=== PATIENT | female | born 1975 | race Caucasian/White ===

== ENCOUNTER 2024-12-25 12:27 | Emergency (ER) | payer MEDICARE, MEDICAID, SELFPAY ==
[2024-12-25] VITALS (8 sets, daily range): BP systolic 101–127; BP diastolic 43–108; PULSE 88–101; RESP 14–18; TEMP 36.3–37; O2SAT 94–99; BMI 24.2
--- NOTE | 2024-12-25 13:13 | EKG12_ITS ---
Test Reason : Blood Pressure : */* mmHG Vent. Rate : 100 BPM Atrial Rate : 100 BPM P-R Int : 104 ms QRS Dur : 76 ms QT Int : 304 ms P-R-T Axes : 43 -2 45 degrees QTcB Int : 392 ms Sinus rhythm with short WA Otherwise normal ECG Baseline artifact Confirmed by Bartolo Lara ([id number]), make up editor ROSE PADRON ([id number]) on 12/27/2024 6:10:43 AM Referred By: Confirmed By: Bartolo Lara
--- NOTE | 2024-12-25 13:13 | CT_ITS ---
PROCEDURE: BRAIN/HEAD WITHOUT CONTRAST 12/25/2024 REASON FOR EXAM: ALTERED MENTAL STATUS TECHNIQUE: Head CT without intravenous contrast. Coronal and Sagittal reconstruction series were provided. One or more dose reduction techniques were used (e.g., Automated exposure control, adjustment of the mA and/or kV according to patient size, use of iterative reconstruction technique. RADIATION DOSE SUMMARY: CTDlvol: 44.99 mGy DLP: 846.73 mGycm COMPARISON: None FINDINGS: Brain: Old lacunar changes seen in the insular cortex of both temporal lobes. CSF Spaces: Mild generalized cerebral atrophy Sinuses/Mastoids: Clear at visualized levels Bones: Hyperostosis frontalis interna. CT/Brain/Head without Contrast IMPRESSION: Tiny old lacune seen in the insular cortex of both temporal lobes. Hyperostosis frontalis interna. Reading Location: [place] [address]
--- NOTE | 2024-12-25 13:13 | RAD_ITS ---
PROCEDURE: CHEST 1 VIEW (PORTABLE) 12/25/2024 REASON FOR EXAM: ALTERED MENTAL STATUS TECHNIQUE: Frontal view of the chest. COMPARISON: None FINDINGS: Hardware: EKG electrodes are seen. Heart: The heart is nonenlarged. Lungs: Lungs are clear. Bones: The bones are unremarkable. Other: RAD/Chest 1 View (Portable) IMPRESSION: No Acute Findings. Reading Location: [place] [address]
[2024-12-25 13:38] LABS: Absolute Lymphocyte Count 2.63 X10^3/uL (0.83-4.51); Absolute Neutrophil Count 3.3 X10^3/uL (2.0-7.7); Basophil# 0.04 X10^3/uL; Basophil% 0.6 % (0-1); Eosinophil# 0.12 X10^3/uL; Eosinophils% 1.7 % (0-5); Hematocrit 43.7 % (37-47); Hemoglobin 14.3 g/dL (12.0-15.0); Lymphocyte # 2.63 X10^3/ul (0.83-4.51); Lymphocyte % 36.3 % (19-41); Mean Corp Hgb Conc 32.7 g/dL (32-36); Mean Corpuscular Hgb 31.7 pg (27.0-32.0); Mean Corpuscular Volume 96.9 fL (81-99); Mean Platelet Vol. 9.8 fl (6.2-12.0); Monocyte# 1.18 X10^3/uL; Monocyte% 16.3 % (0-10); NRBC Flagged by Analyzer 0 % (0-5); Neutrophil # 3.26 X10^3/uL (2.7-7.7); Neutrophil % 44.8 % (47-70); Platelet Count 198 K/mm3 (150-450); RBC Distribution Width CV 13.1 % (11.6-14.6); RBC Distribution Width SD 46.7 fl (35.1-43.9); Red Blood Count 4.51 M/mm3 (4.2-5.4); White Blood Count 7.3 K/mm3 (4.4-11.0)
[2024-12-25 14:26] LABS: ALB/GLOB Ratio 1.2 RATIO (0.9-2.4); AST(SGOT) 46 U/L (<=31); Alanine Aminotransfer ALT/SGPT 17 U/L (<=34); Albumin, Serum 3.8 g/dL (3.5-5.0); Alkaline Phosphatase 60 U/L (35-104); Anion Gap 10 (5-15); BUN 16 mg/dL (4-19); BUN/Creat Ratio 22.9 RATIO (10-20); Calcium,Total 9.6 mg/dL (7.6-11.0); Carbon Dioxide 22.1 mmol/L (21.0-32.0); Chloride 109 mmol/L (98-108); Creatinine, Serum 0.68 mg/dL (0.70-1.20); EST Glomerular Filtration Rate 108 (>60); Estimated Creatinine Clearance 99.46 ml/min (50-250); Globulin 3.1 g/dL (2.2-4.2); Glucose 84 mg/dL (70-99); Potassium 4.9 mmol/L (3.3-5.1); Protein, Total 6.9 g/dL (5.9-8.4); Sodium Level 142 mmol/L (133-145)
[2024-12-25 15:10] LABS: Mucous, Urine 0 SEEN /hpf (<or=2+)
[2024-12-25 15:26] LABS: Color, Urine Yellow (Yellow); Glucose, Dipstick Normal (Normal); Ketone-Dipstick 5 mg/dl (Negative); Leukocyte Esterase-Dipstick 100 /ul (Negative); Nitrite-Dipstick Negative (Negative); Occult Blood-Urine 10 /ul (Negative); Protein-Dipstick 30 mg/dl (Negative); Specific Gravity, Urine 1.015 (1.002-1.030); Urine Bilirubin Dipstick Negative (Negative); Urine Clarity Cloudy (Clear); Urine Urobilinogen 8 mg/dl (Normal)
[2024-12-25 15:35] LABS: Amorphous Sediment 3+; Bacteria 2+ /hpf (None Seen); Red Blood Cells-Urine 0-5 SEEN /hpf (0-5); Squamous Epithelial Cells - UA 0-5 SEEN /hpf (5-10); Transitional Epithelial - Ur 0-5 SEEN /hpf (0-5); White Blood Cells 10-25 SEEN /hpf (0-5)
--- NOTE | 2024-12-25 15:46 | EDS_ITS ---
HPI <Dr. Quincy Clarke, DO - Last Filed: 12/25/24 22:10> History of Present Illness Chief Complaint: Mental Status Change Informant: parent Narrative Narrative: Patient sent by EMS from [facility] for increasing altered mental status. History of bipolar, autism, parents are present states function no was at a [place] [facility] Parent states on of last month went to urgent care for nausea was put on Zofran. The following day follow-up with PCP decompensation on that day was sent to the emergency department. Patient admitted at [facility] on the discharged 5 days ago little over 2 weeks today. Parents reports multiple workups and seen by neurology. They states CT scans EEG were all negative. Patient was ambulatory prior to hospitalization. Since then has been in bed and less conversational. They states undiagnosed findings. Reported MRI was ordered by neurology and due to patient inability to keep her head down, they did not perform this. She was discharged to [facility] facility 5 days ago. They report physical therapy was working with her she would take a couple steps if she is sitting in a chair at the facility. She seemed to start to improve prior to transfer to snf facility. Today reported at breakfast she may have choked on eggs. She had worsening mental status while there. She was sent in here by practitioner there for potential stroke. Parents reports she was not her normal baseline when she was discharged to snf facility. There has been no cough. Prior similar symptoms: Yes PFSH <Dr. Quincy Clarke, DO - Last Filed: 12/25/24 22:10> PFSH Home Medications ?Medication ?Instructions ?Recorded ?Last Taken ?Type acetaminophen 500 mg tablet 500 mg PO Q8H PRN fever or pain 12/25/24 Unknown History amantadine HCl 100 mg capsule 100 mg PO BID 12/25/24 U nknown History aspirin 81 mg chewable tablet 1 tab PO DAILY 12/25/24 Unknown History atropine 1 % eye drops 2 drp sublingual BID 5 Unknown History cephalexin 500 mg capsule 500 mg PO Q6 #12 CAPSULES Unknown Rx cholecalciferol (vitamin D3) 50 50 mcg PO DAILY Unknown History mcg (2,000 unit) capsule (Vitamin D3) divalproex 500 mg tablet,delayed 500 mg PO BID 5 Unknown History release docusate sodium 100 mg capsule 100 mg PO DAILY 5 Unknown History (Colace) fludrocortisone 0.1 mg tablet 0.2 mg PO BID 12/25/24 U nknown History fluoride (sodium) 1.1 % dental gel 1 applic dental QHS 12/25/24 Unknown History (DentaGel) loperamide 2 mg capsule 2 mg PO Q8H PRN loose stool 12/25/24 Unknown History (Anti-Diarrheal (loperamide)) melatonin 5 mg chewable tablet 5 mg PO QHS 12/25/24 Un known History midodrine 5 mg tablet 10 mg PO BID 12/25/24 Unknow n History montelukast 10 mg tablet 10 mg PO DAILY 12/25/24 Unkn own History pantoprazole 40 mg tablet,delayed 40 mg PO DAILY 12/25 Unknown History release polyethylene glycol 3350 17 17 g PO DAILY PRN constipa tion 12/25/24 Unknown History gram/dose oral powder (ClearLax) risperidone 1 mg tablet 1 mg PO Q12H PRN anxiety 05/11 Unknown History trazodone 50 mg tablet 50 mg PO QHS 12/25/24 Unknow n History Allergy/AdvReac Type Severity Reaction Status Date / Time No Known Allergies Allergy Verified 12/25/24 12:37 Social History Smoking Status: Never smoker ROS <Dr. Quincy Clarke DO - Last Filed: 12/25/24 22:10> ROS ED Review of Systems ROS Unobtainable: due to mental condition EXAM <Dr. Quincy Clarke DO - Last Filed: 12/25/24 22:10> Physical Exam Const Vital Signs: 12/25/24 12:29 12/25/24 13:27 12/25/24 14:00 Temperature 97.4 F L Temperature Source Oral Pulse Rate 100 99 99 Respiratory Rate 15 18 18 Blood Pressure 121/66 H 120/108 H 118/90 H Blood Pressure Mean 84 112 99 Pulse Ox 98 99 99 Oxygen Delivery Method Room Air Room Air Room Air 12/25/24 15:29 12/25/24 16:11 12/25/24 19:00 Temperature 98.6 F Temperature Source Oral Pulse Rate 91 101 H 88 Respiratory Rate 18 18 14 Blood Pressure 108/70 127/67 H 101/43 L Blood Pressure Mean 82 87 62 Pulse Ox 97 99 98 Oxygen Delivery Method Room Air Room Air 12/25/24 19:46 12/25/24 20:00 Temperature 98.6 F Temperature Source Pulse Rate 88 88 Respiratory Rate 14 Blood Pressure 101/43 L 119/64 Blood Pressure Mean 62 82 Pulse Ox 98 94 Oxygen Delivery Method Constitutional Narrative: Lying in bed nontoxic, patient unable to follow commands. Slight Contractures of the upper extremity and lower extremities. HEENT normocephalic and atraumatic Eyes General Eye ED: Yes normal appearance of both eyes Resp normal respiratory effort and normal air movement Cardio regular rate and regular rhythm GI soft to palpation Extremity Extremity Narrative: Soft compartments pulses intact distally. Neuro Neuro Narrative: Noncommunicable at this time. Skin no rashes or lesions noted and no wounds <Dr. Axel Sanders, DO - Last Filed: 12/25/24 19:43> Physical Exam Const Vital Signs: 12/25/24 12:29 12/25/24 13:27 12/25/24 14:00 Temperature 97.4 F L Temperature Source Oral Pulse Rate 100 99 99 Respiratory Rate 15 18 18 Blood Pressure 121/66 H 120/108 H 118/90 H Blood Pressure Mean 84 112 99 Pulse Ox 98 99 99 Oxygen Delivery Method Room Air Room Air Room Air 12/25/24 15:29 12/25/24 16:11 12/25/24 19:00 Temperature 98.6 F Temperature Source Oral Pulse Rate 91 101 H 88 Respiratory Rate 18 18 14 Blood Pressure 108/70 127/67 H 101/43 L Blood Pressure Mean 82 87 62 Pulse Ox 97 99 98 Oxygen Delivery Method Room Air Room Air 12/25/24 19:46 12/25/24 20:00 Temperature 98.6 F Temperature Source Pulse Rate 88 88 Respiratory Rate 14 Blood Pressure 101/43 L 119/64 Blood Pressure Mean 62 82 Pulse Ox 98 94 Oxygen Delivery Method MDM <Dr. Quincy Clarke, DO - Last Filed: 12/25/24 22:10> MDM MDM Narrative Medical decision making narrative: Interventions / MDM: Differential diagnosis: UTI, encephalopathy, CVA Diagnosis considered but do not suspect: Intracranial hemorrhage however CT negative My EKG interpretation: Sinus rhythm 100, no ST or T wave changes artifacts at baseline. 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 Recent workup for neurologic issue of unknown etiology. Vitals are stable afebrile. CT brain ordered chest x-ray labs and urine will be obtained through catheterization. CT brain noting bilateral temporal lobe and old lacunar infarcts in the insular cortex. Parents was not aware of any of these findings over at [facility]. Chest x- ray negative. Labs stable cath urine had 100 leukocytes 20-25 WBCs with 2+ bacteria. Urine culture sent. IV Rocephin given. 1600: Clinically seems to be the improving and more alert. Swallow study with no difficulties. Patient with recent neurological workup unclear etiology now with old infarct now seen on CT with potentially stroke issues leading to her hospitalization. She potentially could have had another event today. I discussed with hospitalist Dr. Preston, with her prolonged stay and neurological workup at [facility]. Recommend transferring her back to facility as they also has neurology in house for evaluation. Discussed this with parents who understands and agrees with plan at this time. Will work on transfer. 1700: I discussed with [facility] transfer line with hospitalist Dr. Modi, I discussed patient's history and findings with patient as recent hospitalization there. He evaluated records. He states he will call his neurologist and discussed the area of findings today and it was of concern. He will call back. 1755: In the interim I received a call from the transfer facility stating he has neurologist Dr. Bergman, requesting MRI to be done to differentiate prior to accepting the patient. I rediscussed with the hospitalist Dr. Modi, discussed patient was unable to cooperate at his facility therefore will likely need to be medicated before this study can be completed therefore delayed results and for this to be obtained. He states if positive results can call back and transfer him even from inpatient to inpatient. I will speak with hospitalist regarding this discussion. 181: I spoke with Dr. Preston who will evaluate the patient in the ED for disposition plans. Re-evaluation: stable Disposition discussed with patient/family/significant other: Parents Case discussed with consulting clinician: Jammie hospitalist, [facility] hospitalist Dr. Modi This note was generated with [employer] software. It may contain incorrect words, spelling, and punctuation that were not noted in checking the note before signing. Lab Data Attestation: I reviewed the patient's lab results. Labs: Laboratory Results - last 24 hr 12/25/24 12/25/24 13:29 14:45 WBC 7.3 RBC 4.51 Hgb 14.3 Hct 43.7 MCV 96.9 MCH 31.7 MCHC 32.7 RDW Std Deviation 46.7 H RDW Coeff of Russell 13.1 Plt Count 198 MPV 9.8 Immature Gran % (Auto) 0.300 Neut % (Auto) 44.8 L Lymph % (Auto) 36.3 Simpson % (Auto) 16.3 H Eos % (Auto) 1.7 Baso % (Auto) 0.6 Absolute Neuts (auto) 3.3 Absolute Lymphs (auto) 2.63 Nucleated RBC % 0 Sodium 142 Potassium 4.9 Chloride 109 H Carbon Dioxide 22.1 Anion Gap 10 BUN 16 Creatinine 0.68 L Estim Creat Clear Calc 99.46 Est GFR (MDRD) Non-Af 108 BUN/Creatinine Ratio 22.9 H Glucose 84 Calcium 9.6 Total Bilirubin 0.40 AST 46 H ALT 17 Alkaline Phosphatase 60 Total Protein 6.9 Albumin 3.8 Globulin 3.1 Albumin/Globulin Ratio 1.2 Urine Color Yellow Urine Clarity Cloudy Urine pH 7.0 Ur Specific [place] 1.015 Urine Protein 30 H Urine Glucose (UA) Normal Urine Ketones 5 H Urine Occult Blood 10 H Urine Nitrite Negative Urine Bilirubin Negative Urine Urobilinogen 8 H Ur Leukocyte Esterase 100 H Urine RBC 0-5 SEEN Urine WBC 10-25 SEEN Ur Squamous Epith Cells 0-5 SEEN Ur Transition Epith Cell 0-5 SEEN Amorphous Sediment 3+ Urine Bacteria 2+ Urine Mucus 0 SEEN Radiography Diagnostic Testing: Clinical Impression(s) from Imaging Studies Brain CT 12/25/24 13:13 IMPRESSION: Tiny old lacune seen in the insular cortex of both temporal lobes. Hyperostosis frontalis interna. Reading Location: [facility]1 Chest X-Ray 12/25/24 13:13 IMPRESSION: No Acute Findings. Reading Location: [facility]1 <Dr. Axel Sanders, DO - Last Filed: 12/25/24 19:43> [facility] Lab Data Labs: Laboratory Results - last 24 hr 12/25/24 12/25/24 13:29 14:45 WBC 7.3 RBC 4.51 Hgb 14.3 Hct 43.7 MCV 96.9 MCH 31.7 MCHC 32.7 RDW Std Deviation 46.7 H RDW Coeff of Russell 13.1 Plt Count 198 MPV 9.8 Immature Gran % (Auto) 0.300 Neut % (Auto) 44.8 L Lymph % (Auto) 36.3 Simpson % (Auto) 16.3 H Eos % (Auto) 1.7 Baso % (Auto) 0.6 Absolute Neuts (auto) 3.3 Absolute Lymphs (auto) 2.63 Nucleated RBC % 0 Sodium 142 Potassium 4.9 Chloride 109 H Carbon Dioxide 22.1 Anion Gap 10 BUN 16 Creatinine 0.68 L Estim Creat Clear Calc 99.46 Est GFR (MDRD) Non-Af 108 BUN/Creatinine Ratio 22.9 H Glucose 84 Calcium 9.6 Total Bilirubin 0.40 AST 46 H ALT 17 Alkaline Phosphatase 60 Total Protein 6.9 Albumin 3.8 Globulin 3.1 Albumin/Globulin Ratio 1.2 Urine Color Yellow Urine Clarity Cloudy Urine pH 7.0 Ur Specific [place] 1.015 Urine Protein 30 H Urine Glucose (UA) Normal Urine Ketones 5 H Urine Occult Blood 10 H Urine Nitrite Negative Urine Bilirubin Negative Urine Urobilinogen 8 H Ur Leukocyte Esterase 100 H Urine RBC 0-5 SEEN Urine WBC 10-25 SEEN Ur Squamous Epith Cells 0-5 SEEN Ur Transition Epith Cell 0-5 SEEN Amorphous Sediment 3+ Urine Bacteria 2+ Urine Mucus 0 SEEN Radiography Diagnostic Testing: Clinical Impression(s) from Imaging Studies Brain CT 12/25/24 13:13 IMPRESSION: Tiny old lacune seen in the insular cortex of both temporal lobes. Hyperostosis frontalis interna. Reading Location: [facility] Chest X-Ray 12/25/24 13:13 IMPRESSION: No Acute Findings. Reading Location: [facility]- Treatment and Re-Evaluation :: Care of the patient was turned over to me pending admission. Dr. Preston was in to evaluate the patient. He discussed options with the family. They are agreeable to being discharged back to the extended care facility. Patient was given a prescription for Keflex. Family will contact patient's psychiatrist for possible medication adjustments. Patient and family were instructed to return if worse in any way. Family understood and was agreeable with the plan. All questions were answered. Discharge Plan Triage Chief Complaint: Mental Status Change ED Provider: Quincy Clarke Dx/Rx/DC Orders Clinical Impression: UTI (urinary tract infection), Encephalopathy, Cerebral infarct Instructions: ED ALOC, ED Cystitis Female Adult Prescriptions: New cephalexin 500 mg capsule 500 mg PO Q6 Qty: 12 0RF No Action trazodone 50 mg tablet 50 mg PO QHS midodrine 5 mg tablet 10 mg PO BID divalproex 500 mg tablet,delayed release (DR/EC) 500 mg PO BID amantadine HCl 100 mg capsule 100 mg PO BID acetaminophen 500 mg tablet 500 mg PO Q8H PRN (Reason: fever or pain) pantoprazole 40 mg tablet,delayed release (DR/EC) 40 mg PO DAILY aspirin 81 mg tablet,chewable 1 tab PO DAILY montelukast 10 mg tablet 10 mg PO DAILY atropine 1 % drops 2 drp sublingual BID fludrocortisone 0.1 mg tablet 0.2 mg PO BID risperidone 1 mg tablet 1 mg PO Q12H PRN (Reason: anxiety) melatonin 5 mg tablet,chewable 5 mg PO QHS docusate sodium [Colace] 100 mg capsule 100 mg PO DAILY loperamide [Anti-Diarrheal (loperamide)] 2 mg capsule 2 mg PO Q8H PRN (Reason: loose stool) polyethylene glycol 3350 [ClearLax] 17 gram/dose powder 17 g PO DAILY PRN (Reason: constipation) fluoride (sodium) [DentaGel] 1.1 % gel 1 applic dental QHS cholecalciferol (vitamin D3) [Vitamin D3] 50 mcg (2,000 unit) capsule 50 mcg PO DAILY Primary Care Provider: Joaquín Rosario Referrals: Joaquín Rosario MD [Primary Care Provider] - 3-5 Days Print Language: Russian Disposition Disposition: Jail Facility Discharge Location: [facility] Discharge Date/Time: 12/25/24:42
[2024-12-25] MEDS: Ceftriaxone 1 GM/50 ML BAG IV (16:08)
== END 2024-12-25 21:42 | disposition skilled nursing facility (03) ==
PROVIDERS: Emergency Provider Emergency Medicine; PCP Family Medicine; Visit Provider Emergency Medicine
DX: N39.0 Urinary tract infection, site not specified (principal); G93.40 Encephalopathy, unspecified; F84.0 Autistic disorder; Z79.82 Long term (current) use of aspirin; Z79.899 Other long term (current) drug therapy; Z86.73 Personal history of transient ischemic attack (TIA), and cerebral infarction without residual deficits
CPT/HCPCS: 70450; 71045; 80053; 81001; 85025; 87086; 87088; 93005; 96365; 99285; P9612; A4216

== ENCOUNTER 2025-04-05 18:26 | Inpatient (IN) | payer MEDICARE, MEDICAID, SELFPAY ==
[2025-04-05 18:49] VITALS: BP 95/67; PULSE 101; RESP 18; TEMP 35.8; O2SAT 92; BMI 20.7
--- NOTE | 2025-04-05 19:15 | EKG12_ITS ---
Test Reason : Blood Pressure : */* mmHG Vent. Rate : 88 BPM Atrial Rate : 88 BPM P-R Int : 118 ms QRS Dur : 76 ms QT Int : 378 ms P-R-T Axes : 73 26 62 degrees QTcB Int : 457 ms Normal sinus rhythm Low voltage QRS Borderline ECG Confirmed by ROSENDO CONNOR MD ([id number]), associate entertainment editor BRIANA LARSON ([id number]) on 04/08/2025 8:11:21 AM Referred By: CLIF Confirmed By: ROSENDO CONNOR MD
[2025-04-05] MEDS: Ziprasidone IM 20 MG/ML VIAL IM (19:34)
--- NOTE | 2025-04-05 19:34 | ED.RN ---
pt rolling in bed, yelling. refusing care. for the safety of pt and staff shantal alvarez- see MAR.
--- OUTSIDE RECORDS SUMMARY | 2025-04-05 19:38 | XMS RPT_ITS | CCD ---
Author Organization [facility] Care Team Providers Care Pecan Picker Name Role Phone Zaid Marie III Primary Care Provider EUSEBIA WILLIAM, DESIRAE Primary Care Physician DESIRAE ROSARIO MD Primary Care Physician [phone] Zaid Marie III Primary Care Provider PRAVEEN HDEZ Attending Unavailable Desirae Rosario MD Unavailable ZAID MARIE III Primary Care Unavail able Shayna Rosario DO Primary Care Provider Zaid Marie III Primary Care Provider DESIRAE ROSARIO MD Primary Care Unavailable RENETTA MI, DR MICHELE Pradhan Attending UnavailDESIRAE Nolasco MD Primary Care Unavailable ISABEL MIN Attending UnavailDesirae Nelson MD Primary Care Provider Desirae Rosario Primary Care Provider DESIRAE ROSARIO Primary Care Unavailable LEIGHA SIEGEL Referring Unavailable DESIRAE ROSARIO Primary Care Unavailable JOHNATHON RIVAS Referring Unavailable SHAYNA ROSARIO Primary Care Unavailable DESIRAE ROSARIO Primary Care Unavailable LUCI SHAH Attending Unavailable JOHNATHON RIVAS Attending Unavailable SHAYNA ROSARIO Primary Care Unavailable SHAYNA ROSARIO Primary Care Unavailable DESIRAE ROSARIO MD Primary Care Unavailable REFERRING, LEAH PINTO Attending Unavailable KIM ANGULO PA-C Attending Unavailable EUSEBIA WILLIAM, DESIRAE Primary Care Unavailable EUSEBIA WILLIAM, DESIRAE Primary Care Unavailable PHYSICIAN, NONE Attending Unavailable GUSTAVO MOREAU MD Attending Unavailable EUSEBIA, DESIRAE Primary Care Unavailable EUSEBIA, DESIRAE Primary Care Unavailable NOHEMI TALAVERA MD Attending Unavailable MURRAY ASSET COORDINATOR-CASE MANAGEMENT ASSISTANT, [place] Attending Arnoldo ROSARIO, DESIRAE Primary Care Unavailable EUSEBIA, DESIRAE Primary Care Unavailable MIGUEL ANGEL PARKER MD Attending Unavailable EUSEBIA, DESIRAE Primary Care Unavailable NOHEMI TALAVERA MD Attending Unavailable EUSEBIA, DESIRAE Primary Care Unavailable CAROLINE JAVIER DO Attending Unavailable Dr. Quincy Clarke DO Emergency Provider Dr. Desirae Rosario MD Primary Care Provider JEFF AMBRIZ Attending Unavailable FRANK III, [facility] Primary Care Unavail able FRANK III, ZAID NATURITA Primary Care Unavail able RADHA GLASS Attending Unavailable KYMBERLY SETHI Admitting Unavailable KYMBERLY SETHI Attending Unavailable DESIRAE ROSARIO Primary Care Unavailable SELF Referring Unavailable EUSEBIA, DESIRAE Castillo Primary Care Unavailable ARLINE GUILLERMO Attending Unavailable EUSEBIADESIRAE ÁLVAREZ Primary Care Unavailable BOB CALDWELL Attending Unavailable DESIRAE ROSARIO Primary Care Unavailable MAIK WIGGINS Admitting Unavailable JARAD CHEN Attending Unavailable TYLER WEBB Consulting Unavailable EUSEBIADESIRAE HASSAN Primary Care Unavailable LUCI WOOD Admitting Unavailable JAY ABDI Attending Unavailab LALIT Rendon Consulting Unavailable Dr. Quincy Clarke DO Attending Provider Dr. Desirae Rosario MD Referring Provider Naye Sol Attending Provider Dr. Wojciech Gonzalez MD Attending Provider [phone] Naye Valero Attending Unavailable Desirae Rosario Referring Unavailable Desirae Rosario Primary Care Unavailable Eusebia, Desirae Primary Care Unavailable Wojciech Gonzalez Attending Unavailable Quincy Clarke Attending Unavailable Eusebia, Desirae Primary Care Unavailable Medications Current Medications Medication Drug Class(es) Dates Sig (Normalized) Sig (Original) acetaminophen 325 mg oral tablet (20 sources) Start: 03-05-2025 take 2 tablets by mouth every four hours as needed Acetaminophen 325 mg tablet Active 650 mg PO Q4H as needed March 05, 2025 12:00am Start: 12-25-2024 End: 03-05-2025 take 1 tablet by mouth every eight hours as needed for pain Acetaminophen 500 mg tablet Discontinued 500 mg PO Q8H as needed for fever or pain December 25, 2024 12:00am March 05, 2025 10:39am Start: 01-24-2024 End: 01-24-2024 take 1 tablet by mouth every eight hours as needed acetaminophen (TYLENOL EXTRA STRENGTH) 500 mg tablet Take 1 tablet by mouth every 8 hours as needed for pain. 24 tablet 01/24/2024 Active Start: 01-20-2024 take 2 tablets by mo uth every eight hours as needed acetaminophen (TYLENOL) 500 mg tablet Take 2 tablets by mouth every 8 hours as needed for pain for up to 15 doses. 30 tablet 01/20/2024 Active Start: 08-11-2023 End: 08-11-2023 acetaminophen (Tylenol) tabl et 650 mg acetaminophen (T ylenol) 325 MG tablet Take 325 mg by mouth. Active amantadine hydrochloride 100 mg oral capsule (20 sources) Influenza A M2 Protein Inhibitor Start: 12-25-2024 take 1 capsule by mouth twice daily Amantadine Hcl 100 mg capsule Active 100 mg PO TWICE A DAY December 25, 2024 12:00am Start: 07-26-2024 take 1 dose by mouth twice daily amantadine Dose : 100 mg =, Oral, BID, 0 Refill(s) Start Date: 07/26/24 Status: Ordered Repeat number: 1 Start: 12-29-2023 amantadine 100 mg oral capsule Dose : 100 mg = 1 cap(s), Oral, BID, 0 Refill(s) Start Date: 12/29/23 Status: Ordered Repeat number: 1 Start: 12-24-2015 End: 11-24-2023 amantadine HCl (SYMMETREL) 1 00 mg capsule 100 mg twice daily. 0 12/24/2015 11/24/2023 Discontinued (Course of therapy completed) Comment on above: 100 mg twice daily. amoxicillin 875 mg oral tablet (9 sources) Penicillin-class Antibacterial Start: 4 End: take 1 tablet by mouth every twelve hours amoxicillin (AMOXIL) 875 mg tablet Indications: Left otitis media, unspecified otitis media type Take 1 tablet by mouth every 12 hours for 10 days. 20 tablet 03/16/2024 03/26/2024 Active Start: 01-24-2024 End: 01-29-2024 take 1 capsule by mouth three times daily amoxicillin (AMOXIL) 500 mg capsule Take 1 capsule by mouth three times a day for 5 days. 15 capsule 0 01/24/2024 01/29/2024 Active Start: 11-24-2023 End: 12-04-2023 take 1 tablet by mouth every twelve hours amoxicillin (AMOXIL) 875 mg tablet Indications: Ear pain, bilateral Take 1 tablet by mouth every 12 hours for 10 days. 20 tablet 0 11/24/2023 12/04/2023 Active amoxicillin 875 mg / clavulanate 125 mg oral tablet (11 sources) Penicillin-class Antibacterial Start: 03-24-2024 End: 04-03-2024 take 1 tablet by mouth every twelve hours amoxicillin-clavulanate (Augmentin) 875-125 MG tablet Take 1 tablet by mouth in the morning and 1 tablet in the evening. Do all this for 10 days. 20 tablet 03/24/2024 04/03/2024 Active Start: 01-20-2024 End: 01-27-2024 take 11 mL by mouth twice daily amoxicillin-clavulanic acid (AUGMENTIN) 400-57 mg/5 mL suspension Take 11 mL by mouth two times a day for 7 days. 154 mL 0 01/20/2024 01/27/2024 Active aspirin 81 mg chewable tablet (6 sources) Platelet Aggregation Inhibitor, Nonsteroidal Anti-inflammatory Drug Start: 12-25-2024 Aspirin 81 mg tablet,chewable Active 1 {tbl} PO DAILY December 25, 2024 12:00am Start: 08-10-2024 aspirin 81 mg oral tablet, chewable Dose : 81 mg = 1 tab(s), Oral, Daily, # 90 tab(s), 3 Refill(s), Pharmacy: [facility], 165.1, cm, 08/10/24 9:30:00 EST, Height, kg, 08/10/24 9:30:00 EST, Dosing Weight Start Date: 08/10/24 Status: Ordered Quantity: 90.0 Unit: tab(s) Repeat number: 4 Start: 07-26-2024 aspirin 325 mg oral tablet Dose : 325 mg = 1 tab(s), Oral, qDay, # 90 tab(s), 0 Refill(s), Pharmacy: [facility], 170.2, cm, 12/29/23 15:59:00 EDT, Height, kg, 07/26/24 12:09:00 EST, Dosing Weight Start Date: 07/26/24 Status: Ordered Quantity: 90.0 Unit: tab(s) Repeat number: 1 Atropine 1 % drops (3 sources) Start: 12-25-2024 Atropine 1 % d rops Active 2 NMA SL TWICE A DAY December 25, 2024 12:00am benztropine mesylate 1 mg oral tablet (13 sources) Anticholinergic, Antihistamine Start: 12-19-2015 Cogentin 1 mg oral tablet Dose : 1.5 mg = 1.5 tab(s), Oral, BID Start Date: 12/19/15 Status: Ordered End: 11-24-2023 take 1.5 mg by mouth twice daily benztropine (COGENTIN) 1 mg tablet Take 1.5 mg by mouth twice daily. 0 11/24/2023 Discontinued (Course of therapy completed) Comment on above: Take 1.5 mg by mouth twice daily. carbamide peroxide 65 mg/ml otic solution (4 sources) Start: 12-23-2023 End: 12-28-2023 carbamide peroxide (Debrox) 6.5 % otic solution Administer 5 drops into each ear 2 times daily for 5 days. 10 mL 1 12/23/2023 12/28/2023 Active Start: 11-24-2023 End: 11-28-2023 carbamide peroxide (DEBROX) 6.5 % otic solution Indications: Impacted cerumen of right ear Use 4-5 Drops in both ears as needed for up to 4 days. 15 mL 0 11/24/2023 11/28/2023 Active carbidopa 25 mg / levodopa 100 mg oral tablet (12 sources) Aromatic Amino Acid Decarboxylation Inhibitor, Aromatic Amino Acid Start: 08-23-2022 take 1 tablet by mouth three times daily carbidopa-levodopa 25 mg-100 mg oral tablet Dose = 1 tab(s), Oral, TID Start Date: 08/23/22 Status: Ordered Start: 08-23-2022 carbidopa-levo dopa (Sinemet) 25-100 MG tablet Take by mouth. 08/23/2022 Active chlorhexidine gluconate 1.2 mg/ml mouthwash (4 sources) Start: 01-24-2024 Chlorhexidine Gluconate (PERIDEX) 0.12 % solution Use 15 mL as instructed two times a day. Rinse around mouth for 30 seconds then expectorate 473 mL 01/24/2024 Active cholecalciferol 0.05 mg oral capsule (20 sources) Vitamin D Start: 12-25-2024 Cholecalcifero l (Vitamin D3) [Cholecalciferol (Vitamin D3) 50 Mcg (2,000 Unit) Capsule] (Cholecalciferol (Vitamin D3) 50 Mcg (2,000 Unit) ) 50 mcg (2,000 unit) capsule Active 50 ug PO DAILY December 25, 2024 12:00am Start: 04-29-2023 take 1 capsule by mo ut once daily cholecalciferol (Vitamin D-3) 50 MCG (1999 UT) capsule Take 2,000 Units by mouth daily. 11/26/2023 Active cholecalciferol (Vitamin D-3) 50 MCG (1999 UT) capsule 2,000 Units. Active docusate sodium 100 mg oral capsule (20 sources) Start: 12-25-2024 End: 03-05-2025 take 1 capsule by mouth once daily as needed Docusate Sodium (Colace) 100 mg capsule Active 100 mg PO DAILY as needed March 05, 2025 10:41am Start: 07-26-2024 take 1 dose by mouth once daily as needed for constipation docusate Dose : 100 mg =, Oral, qDay, PRN as needed for constipation, 0 Refill(s) Start Date: 07/26/24 Status: Ordered Repeat number: 1 Start: 05-20-2023 End: 11-24-2023 docusate sodium (COLACE) 100 mg capsule fludrocortisone acetate 0.1 mg oral tablet (20 sources) Start: 12-25-2024 take 1 tablet by mouth twice daily Fludrocortisone 0.1 mg tablet Active 0.2 mg PO TWICE A DAY December 25, 2024 12:00am Start: 01-15-2023 take 2 tablets by mo uth in the morning, then take 8 tablets by mouth in the evening fludrocortisone (Florinef) 0.1 MG tablet TAKE 2 TABLETS BY MOUTH AT 8 AM AND 8 PM 01/15/2023 Active Start: 01-15-2023 End: 11-24-2023 fludrocortisone 0.1 mg oral tablet Dose : 0.2 mg = 2 tab(s), Oral, qDay, 0 Refill(s) Start Date: 01/15/23 Status: Ordered Repeat number: 1 gabapentin (13 sources) Anti-epileptic Agent Start: 09-15-2017 gabapenti n 0 Refill(s) Start Date: 09/15/17 Status: Ordered End: 11-24-2023 take 1 tablet by mouth three times daily gabapentin (NEURONTIN) 600 mg tablet Take 600 mg by mouth three times daily. 0 11/24/2023 Discontinued (Course of therapy completed) Comment on above: Take 600 mg by mouth three times daily. ibuprofen 600 mg oral tablet (9 sources) Nonsteroidal Anti-inflammatory Drug Start: 4 End: 4 take 1 tablet by mouth every six hours as needed ibuprofen (MOTRIN) 600 mg tablet Take 1 tablet by mouth every 6 hours as needed for pain. 20 tablet 01/24/2024 Active loperamide hydrochloride 2 mg oral capsule (15 sources) Opioid Agonist Start: 5 take 1 capsule by mouth every eight hours as needed Loperamide (Anti-Diarrheal (Loperamide)) 2 mg capsule Active 2 mg PO Q8H as needed for loose stool December 25, 2024 12:00am take 1 capsule by mo uth three times daily as needed loperamide (Imodium) 2 MG capsule Take 2 mg by mouth 3 times daily as needed. Active LORazepam 0.5 mg oral tablet (20 sources) Benzodiazepine Start: 03-05-2025 take 1 tablet by mouth twice daily Lorazepam 0.5 mg tablet Active 0.5 mg PO TWICE A DAY March 05, 2025 12:00am Start: 07-26-2024 LORazepam Dose : 1 mg =, Oral, BID, 1 afternoon, 1 at bedtime, 0 Refill(s), 66.8 Start Date: 07/26/24 Status: Ordered Repeat number: 1 Start: 03-24-2024 2 mg, IntraMUS Cular, Once, On 03/24/24 at 2135, For 1 dose, For IV doses dilute dose with 1ml NS. Start: 12-29-2023 LORazepam 1 mg oral tablet Dose : 1 mg = 1 tab(s), Oral, TID, 0 Refill(s), 57.1 Start Date: 12/29/23 Status: Ordered Repeat number: 1 Start: 04-30-2023 LORazepam (Ati van) 1 MG tablet Start: 04-07-2016 LORazepam 0 Re fill(s) Start Date: 04/07/16 Status: Ordered Start: 01-10-2016 take 2 tablets by mo uth once daily in the morning LORazepam (ATIVAN) 1 mg tablet Take 2 mg by mouth every morning. 01/10/2016 Active Start: 01-10-2016 LORazepam (ATI VAN) 1 mg tablet 2 mg three times a day. 0 01/10/2016 Active Start: 01-10-2016 End: 01-22-2023 LORazepam 1 mg oral tablet D ose : 2 mg = 2 tab(s), Oral, TID, X 7 day(s), # 42 tab(s), 0 Refill(s), 01/22/23 12:55:00 EDT, Bipolar disorder Autism, 57.1 Start Date: 01/15/23 Stop Date: 01/22/23 Status: Ordered take 1 tablet by yudi th once daily in the morning LORazepam (Ativan) 2 MG tablet Take 1 tablet by mouth every morning. Active take 1 tablet by yudi th twice daily, then take 8 tablets by mouth in the evening LORazepam (ATIVAN) 1 mg tablet Take 1 mg by mouth two times a day. @ 3pm and 8 pm Active Comment on above: 1 mg three times gill ly. 2 mg three times a d ay. medroxyPROGESTERone (13 sources) Progestin Start: 04-07-2016 Depo-Provera 0 Refill(s) Start Date: 04/07/16 Status: Ordered End: 11-24-2023 medroxyPROGESTERone (DEPO-GA OVERA) 150 mg/mL injection Inject 150 mg intramuscularly every 12 weeks. 0 11/24/2023 Discontinued (Course of therapy completed) Comment on above: Inject 150 mg intram uscularly every 12 weeks. melatonin 5 mg oral tablet (20 sources) Start: End: take 1 tablet by mouth at bedtime as needed Melatonin 5 mg tablet,chewable Active 5 mg PO AT BEDTIME as needed March 05, 2025 10:41am Start: 07-26-2024 melatonin Dose : 5 mg =, Oral, qHS, PRN as needed for insomnia, 2 tablets, 0 Refill(s) Start Date: 07/26/24 Status: Ordered Repeat number: 1 Start: 04-29-2023 melatonin 5 MG tablet 5 mg. 04/29/2023 Active midodrine hydrochloride 5 mg oral tablet (20 sources) alpha-Adrenergic Agonist Start: 12-25-2024 take 2 tablets by mouth twice daily Midodrine 5 mg tablet Active 10 mg PO TWICE A DAY December 25, 2024 12:00am Start: 01-15-2023 midodrine (Pro amatine) 5 MG tablet Take 10 mg by mouth. 01/15/2023 Active Start: 01-15-2023 midodrine 5 mg oral tablet Dose : 10 mg = 2 tab(s), Oral, BID, 0 Refill(s) Start Date: 01/15/23 Status: Ordered Repeat number: 1 montelukast 10 mg oral tablet (20 sources) Leukotriene Receptor Antagonist Start: 12-25-2024 take 1 tablet by mouth once daily Montelukast 10 mg tablet Active 10 mg PO DAILY December 25, 2024 12:00am Start: 08-23-2022 montelukast 10 mg oral tablet Dose : 10 mg = 1 tab(s), Oral, qDay, 0 Refill(s) Start Date: 08/23/22 Status: Ordered Repeat number: 1 Multiple Vitamin (Tab-A-Kenneth/Beta Carotene) tablet (11 sources) Start: 11-18-2023 Multiple Vitam in (Tab-A-Kenneth/Beta Carotene) tablet 11/18/2023 Active Start: 11-18-2023 Multiple Vitam in (Tab-A-Kenneth/Beta Carotene) tablet Skcwayublnoca-Dfcfgtlr-Doiwf n (MULTIVITAMIN 50 PLUS) tab (6 sources) Multivitamins-Mi nerals-Lutein (MULTIVITAMIN 50 PLUS) tab Take 1 tablet by mouth once daily. Ld 01/22 Active Multivitamins-Mi nerals-Lutein (MULTIVITAMIN 50 PLUS) tab Take 1 tablet by mouth once daily. Ld 01/22 0 Active Multivitamins-Mi nerals-Lutein (MULTIVITAMIN 50 PLUS) tab Take 1 tablet by mouth once daily. Ld 01/22 0 Suspended nitrofurantoin, macrocrystals 25 mg / nitrofurantoin, monohydrate 75 mg oral capsule (2 sources) Nitrofuran Antibacterial Start: 04-09-2024 End: 04-14-2024 take 1 capsule by mouth twice daily nitrofurantoin monohydrate and macrocrystal (MACROBID) 100 mg capsule Indications: Bacterial Infection Take 1 capsule by mouth two times a day for 5 days. 10 capsule 04/09/2024 04/14/2024 Active Start: 08-28-2022 End: 09-02-2022 Macrobid 100 mg oral capsule Dose : 100 mg = 1 cap(s), Oral, BIDM, X 5 day(s), # 10 cap(s), 0 Refill(s), 09/02/22 14:11:00 EST, Pharmacy: [id number], 168, cm, 07/03/22 9:38:00 EST, Height, 58.9 Start Date: 08/28/22 Stop Date: 09/02/22 Status: Ordered 24 hr oxybutynin chloride 10 mg extended release oral tablet (13 sources) Cholinergic Muscarinic Antagonist Start: 12-19-2015 take 1 tablet by mouth every hour, then take 1 tablet by mouth once daily Ditropan XL 10 mg/24 hr oral tablet, extended release Dose : 10 mg = 1 tab(s), Oral, qDay Start Date: 12/19/15 Status: Ordered End: 11-24-2023 take 1 tablet by mouth once daily oxybutynin ER (DITROPAN XL) 10 mg 24 hr tablet Take 10 mg by mouth once daily. 0 11/24/2023 Discontinued (Course of therapy completed) Comment on above: Take 10 mg by mouth once daily. pantoprazole 40 mg delayed release oral tablet (20 sources) Proton Pump Inhibitor Start: take 1 tablet by mouth once daily Pantoprazole 40 mg tablet,delayed release (DR/EC) Active 40 mg PO DAILY December 25, 2024 12:00am Start: 01-15-2023 Protonix 40 mg oral enteric coated tablet Dose : 40 mg = 1 tab(s), Oral, qDay, 0 Refill(s) Start Date: 01/15/23 Status: Ordered Repeat number: 1 Comment on above: Take 40 mg by mouth. polyethylene glycol 3350 68070 mg powder for oral solution (14 sources) Osmotic Laxative Start: 12-25-2024 Polyethylene Glycol 3350 (Clearlax) 17 gram/dose powder Active 17 g PO DAILY as needed for constipation December 25, 2024 12:00am Start: 07-29-2023 polyethylene g lycol, PEG, 3350 (Glycolax) 17 GM/SCOOP powder 07/29/2023 Active sodium fluoride 0.011 mg/mg toothpaste (7 sources) Start: 12-25-2024 Fluoride (Sodi um) (Dentagel) 1.1 % gel Active 1 NMA DENTAL AT BEDTIME December 25, 2024 12:00am Start: 01-24-2024 fluoride, sodi um, (PREVIDENT) 1.1 % gel 1 application by DENTAL route daily at bedtime. 56 g 3 01/24/2024 Active TAB-A-KENNETH 400 mcg (3 sources) Start: 03-20-2024 TAB-A-KENNETH 400 mcg 03/20/2024 Active Start: 05-25-2023 End: 11-24-2023 TAB-A-KENNETH 400 mcg Start: 05-25-2023 TAB-A-KENNETH 400 mcg Tab-A-Kenneth oral tablet (3 sources) Start: 07-26-2024 take 1 tablet by mouth once daily Tab-A-Kenneth oral tablet Dose = 1 tab(s), Oral, Daily, 0 Refill(s) Start Date: 07/26/24 Status: Ordered Repeat number: 1 traZODone hydrochloride 50 mg oral tablet (20 sources) Serotonin Reuptake Inhibitor Start: 12-25-2024 take 1 tablet by mouth at bedtime Trazodone 50 mg tablet Active 50 mg PO AT BEDTIME December 25, 2024 12:00am Start: 08-23-2022 traZODone 150 mg oral tablet Dose : 150 mg = 1 tab(s), Oral, qHS, # 30 tab(s), 0 Refill(s) Start Date: 08/23/22 Status: Ordered Start: 09-15-2017 traZODone 0 Re fill(s) Start Date: 09/15/17 Status: Ordered Start: 12-19-2015 traZODone 50 m g oral tablet Dose : 50 mg = 1 tab(s), Oral, qHS, 0 Refill(s) Start Date: 12/29/23 Status: Ordered Repeat number: 1 Comment on above: Take 50 mg by mouth daily at bedtime. divalproex sodium 500 mg delayed release oral tablet (20 sources) Mood Stabilizer, Anti-epileptic Agent Start: 12-25-2024 take 1 tablet by mouth twice daily Divalproex 500 mg tablet,delayed release (DR/EC) Active 500 mg PO TWICE A DAY December 25, 2024 12:00am Start: 05-25-2023 End: 11-24-[address] (DEPAKOTE) 500 mg EC tablet Start: 02-10-2023 divalproex (De pakote ER) 500 MG 24 hr tablet 02/10/2023 Active Start: 02-10-2023 divalproex spr inkle (Depakote Sprinkle) [address] capsule 02/10/2023 Active Start: 01-15-2023 End: 02-14-2023 divalproex sodium 250 mg ora l tablet, extended release Dose : 750 mg = 3 tab(s), Oral, BID, # 180 tab(s), 0 Refill(s), [id number], 170.2, cm, 01/05/23 14:35:00 EDT, Height Start Date: 01/15/23 Stop Date: 02/14/23 Status: Ordered Quantity: 180.0 Unit: tab(s) Repeat number: 1 Start: 08-23-2022 divalproex sod ium 500 mg oral tablet, extended release Dose : 500 mg = 1 tab(s), Oral, BID Start Date: 08/23/22 Status: Ordered Start: 08-23-2022 divalproex sod ium 125 mg oral delayed release capsule Dose : 125 mg = 1 cap(s), Oral, qDay Start Date: 08/23/22 Status: Ordered Start: 09-15-2017 divalproex sod ium 0 Refill(s) Start Date: 09/15/17 Status: Ordered take 1 tablet by yudi th twice daily divalproex DR (DEPAKOTE) 250 mg EC tablet Take 250 mg by mouth two times a day. Active take 1 tablet by yudi th three times daily divalproex DR (DEPAKOTE) 250 mg EC tablet Take 250 mg by mouth three times daily. 0 Active Comment on above: Take 250 mg by mouth three times daily. Vitamin D3 (4 sources) Start: 03-24-2018 Vitamin D3 0 Refill(s) Start Date: 03/24/18 Status: Ordered Vitamin D3 50 mcg (2000 intl units) oral capsule (5 sources) Start: 01-05-2023 Vitamin D3 50 mcg (2000 intl units) oral capsule Dose : 50 mcg = 1 cap(s), Oral, Daily, 0 Refill(s) Start Date: 01/05/23 Status: Ordered Repeat number: 1 Start: 01-05-2023 Vitamin D3 50 mcg (2000 intl units) oral capsule Dose : 50 mcg = 1 cap(s), Oral, Daily, 0 Refill(s) Start Date: 01/05/23 Status: Ordered Completed/Discontinued Medications Medication Drug Class(es) Dates Sig (Normalized) Sig (Original) Atropine (9 sources) Anticholinergic, Cholinergic Muscarinic Antagonist Start: 07-26-2024 Atropine Dose : 1 % =, Intravenous, BID, 1 gtt bid as directed under the tongue for drooling, 0 Refill(s) Start Date: 07/26/24 Status: Ordered Repeat number: 1 take 1 drop(s) under the tongue twice daily atropine (ISOPTO ATROPINE) sublingual dr ops Dissolve 1 Drop under the tongue two times a day. FOR DROOLING Active cephalexin 500 mg oral capsule (18 sources) Cephalosporin Antibacterial Start: 12-25-2024 End: 03-05-2025 take 1 capsule by mouth every six hours Cephalexin 500 mg capsule Discontinued 500 mg PO EVERY 6 HOURS 12 0 December 25, 2024 12:00am March 05, 2025 10:42am Start: 05-28-2023 End: 06-04-2023 take 1 capsule by mouth every twelve hours cephalexin (Keflex) 500 MG capsule TAKE 1 CAPSULE BY MOUTH EVERY 12 HOURS FOR 7 DAYS 05/29/2023 Active Start: 12-14-2022 End: 12-21-2022 take 1 capsule by mouth four times daily cephALEXin (KEFLEX) 500 mg capsule Take 1 capsule by mouth four times daily for 7 days. 28 capsule 0 12/14/2022 12/21/2022 Active Start: 07-03-2021 End: 07-13-2021 Keflex 500 mg oral capsule D ose : 500 mg = 1 cap(s), Oral, TID, X 10 day(s), # 30 cap(s), 0 Refill(s), 07/13/21 22:24:00 EST, UTI - Urinary tract infection, 74.3 Start Date: 07/03/21 Stop Date: 07/13/21 Status: Ordered Comment on above: Take 1 capsule by [facility] four times daily for 7 days. ketamine 100 mg/ml injectable solution (2 sources) General Anesthetic Start: 03-26-2024 End: 03-26-2024 265 mg (rounded from 263.2 mg = 4 mg/kg 65.8 kg), IntraMUSCular, Once, On 03/26/24 at 1220, For 1 dose, If ordered nasal, give 1/2 of dose in each nostril. If IM, give deeply into a large muscle mass. If ordered IV or GA, must dilute 1:1 prior to administration. loratadine 10 mg oral capsule (9 sources) End: 11-24-2023 loratadine 10 mg cap Take by mouth. 0 11/24/2023 Discontinued (Course of therapy completed) Comment on above: Take by mouth. 2 ml midazolam 1 mg/ml injection (6 sources) Benzodiazepine Start: 03-26-2024 End: 03-26-2024 2 mg, IntraVENous, Once, On 03/26/24 at 1405, For 1 dose Start: 03-26-2024 End: 03-26-2024 inject 2.5 mg by intramuscular injection once 2.5 mg, IntraMUSCular, Once, On 03/26/24 at 1130, For 1 dose Start: 03-24-2024 End: 03-24-2024 inject 2 mg by intramuscular injection once 2 mg, IntraMUSCular, Once, On Tue03/24/24 at 2220, For 1 dose Misc Medication (3 sources) Start: 07-26-2024 Misc Medication 12.5 mg, Injectable, q2wk, Risperidal Consta - 2ml IM injection, 0 Refill(s), 66.8 Start Date: 07/26/24 Status: Ordered Repeat number: 1 mupirocin 20 mg/ml topical cream (9 sources) RNA Synthetase Inhibitor Antibacterial Start: 11-20-2010 End: 11-24-2023 apply 15 g topically three times daily mupirocin (BACTROBAN) 2 % TOPICAL cream Indications: Impetigo Apply to affected area three times daily. APPLY TO AFFECTED AREA 15 g 1 11/20/2010 11/24/2023 Discontinued (Course of therapy completed) Comment on above: Apply to affected ar ea three times daily. APPLY TO AFFECTED AREA risperiDONE 1 mg oral tablet (20 sources) Atypical Antipsychotic Start: 12-25-2024 End: 03-05-2025 take 1 tablet by mouth every twelve hours as needed for anxiety Risperidone 1 mg tablet Discontinued 1 mg PO Q12H as needed for anxiety December 25, 2024 12:00am March 05, 2025 10:42am Start: 11-09-2023 End: 11-24-2023 inject 2 mL by intramuscular injection every other week RISPERDAL CONSTA 12.5 mg/2 mL susp,ERrecon INJECT 2 ML INTRAMUSCULARLY EVERY TWO WEEKS 0 11/09/2023 11/24/2023 Discontinued (Discontinued by Patient) Start: 04-29-2023 risperiDONE 1 mg oral tablet 0 Refill(s) Start Date: 12/29/23 Status: Ordered Repeat number: 1 Start: 09-15-2017 risperiDONE 0 Refill(s) Start Date: 09/15/17 Status: Ordered RisperDAL Consta 12.5 MG injection Inject 12.5 mg into the shoulder, thigh, or buttocks every 14 (fourteen) days. Active 50 ml sodium chloride 9 mg/m l injection (4 sources) Start: 03-26-2024 End: 03-26-2024 1,000 mL, IntraVENous, at 1, 000 mL/hr, Administer over 1 Hours, Once, On Tue03/26/24 at 1130, For 1 dose Start: 03-26-2024 End: 03-26-2024 take 125 mL intravenously every hour 125 mL/hr, IntraVENous, Continuous, Starting on Tue03/26/24 at 1130 Problems Active Problems Problem Classification Problem Date Documented Da te Episodic/Chronic Abdominal pain (5 sources) Abdominal pain; Translations: [Unspecified abdominal pain] Onset: 1 Episodic Acute cerebrovascular disease (3 sources) Cerebral infarction; Translations: [Cerebral infarction, unspecified] 12-25-2024 Chronic Administrative/social admission (2 sources) Need for personal care assistance; Translations: [Need for assistance with personal care] 03-05-2025 Episodic Anxiety disorders (3 sources) Anxiety disorder; Translations: [Anxiety disorder, unspecified] Chronic Aspiration pneumonitis; food/vomitus (1 source) Pneumonitis due to inhalation of regurgitated food; Translations: [Pneumonitis due to inhalation of food and vomit] Episodic Cardiac dysrhythmias (2 sources) Atrial fibrillation; Translations: [Unspecified atrial fibrillation] 03-05-2025 Chronic Cardiac dysrhythmias (2 sources) Tachyarrhythmia ; Translations: [Tachycardia, unspecified] Onset: 5 Episodic Coagulation and hemorrhagic disorders (4 sources) Thrombocytopenic disorder; Translations: [Thrombocytopenia, unspecified] Chronic Developmental disorders (14 sources) Mental retardation; Translations: [Intellectual disability] 12-22-2015 Chronic Disorders usually diagnosed in infancy, childhood, or adolescence (19 sources) Autistic disorder; Translations: [Autistic disorder] Onset: 3 12-19-2015 Chronic Epilepsy; convulsions (1 source) Epilepsy; Translations: [Epilepsy, unspecified, not intractable, without status epilepticus] Chronic Epilepsy; convulsions (4 sources) Seizure; Translations: [Unspecified convulsions] Onset: 3 Episodic Esophageal disorders (3 sources) Obstruction of esophagus; Translations: [Esophageal obstruction] Onset: 3 Chronic Fluid and electrolyte disorders (8 sources) Dehydration; Translations: [Dehydration] Onset: 1 Episodic Genitourinary symptoms and ill-defined conditions (17 sources) Urge incontinence of urine; Translations: [Urge incontinence] Onset: 3 08-05-2022 Chronic Mood disorders (17 sources) Bipolar disorder; Translations: [Bipolar disorder in remission] Onset: 3 12-19-2015 Chronic Nausea and vomiting (2 sources) Vomiting, unspecified; Translations: [Nausea with vomiting, unspecified] Onset: Episodic Neoplasms of unspecified nature or uncertain behavior (2 sources) Polycythemia vera (clinical); Translations: [Polycythemia vera] 03-05-2025 Chronic Osteoarthritis (3 sources) Bilateral wrist osteoarthritis; Translations: [Primary osteoarthritis, right wrist] Onset: 5 03-05-2025 Chronic Other acquired deformities (1 source) Scoliosis deformity of spine; Translations: [Scoliosis, unspecified] Chronic Other acquired deformities (1 source) Contracture of joint of hand; Translations: [Contracture, left hand] 03-05-2025 Chronic Other acquired deformities (1 source) Contracture of joint of left wrist; Translations: [Contracture, left wrist] 03-05-2025 Chronic Other acquired deformities (1 source) Contracture, left wrist; Translations: [Contracture, left wrist] Onset: Chronic Other acquired deformities (1 source) Contracture, left hand; Translations: [Contracture, left hand] Onset: Chronic Other circulatory disease (1 source) Low blood pressure; Translations: [Hypotension, unspecified] Episodic Other circulatory disease (2 sources) Orthostatic hypotension; Translations: [Orthostatic hypotension] 03-05-2025 Episodic Other connective tissue disease (10 sources) H/O: musculoskeletal disease 12-19-2015 Episodic Other connective tissue disease (1 source) Other symptoms and signs involving the musculoskeletal system; Translations: [Rigidity (muscles)] Onset: Episodic Other connective tissue disease (2 sources) Rhabdomyolysis; Translations: [Rhabdomyolysis] 03-05-2025 Episodic Other connective tissue disease (2 sources) Muscle weakness; Translations: [Muscle weakness (generalized)] 03-05-2025 Episodic Other ear and sense organ disorders (1 source) Bilateral earache; Translations: [Otalgia, bilateral] 11-24-2023 Episodic Other ear and sense organ disorders (3 sources) Impacted cerumen in right ear; Translations: [Impacted cerumen, right ear] 11-24-2023 Episodic Other ear and sense organ disorders (2 sources) Bilateral dermatitis of external ear canals; Translations: [Acute eczematoid otitis externa, bilateral] 12-23-2023 Episodic Other ear and sense organ disorders (2 sources) Wax in ear canal; Translations: [Impacted cerumen, unspecified ear] 12-23-2023 Episodic Other ear and sense organ disorders (13 sources) Impacted cerumen of bilateral ears; Translations: [Impacted cerumen, bilateral] Onset: 4 03-24-2024 Episodic Other ear and sense organ disorders (2 sources) Impacted cerumen, bilateral; Translations: [Impacted cerumen, bilateral] Onset: 4 Episodic Other gastrointestinal disorders (1 source) Dysphagia; Translations: [Dysphagia, unspecified] Onset: 3 Episodic Other gastrointestinal disorders (2 sources) Oropharyngeal dysphagia; Translations: [Dysphagia, oropharyngeal phase] 03-05-2025 Episodic Other injuries and conditions due to external causes (1 source) Bite - wound; Translations: [Other injury of unspecified body region, initial encounter] Episodic Other injuries and conditions due to external causes (1 source) Foreign body in stomach; Translations: [Foreign body in stomach, initial encounter] Episodic Other injuries and conditions due to external causes (1 source) Foreign body in esophagus; Translations: [Food in esophagus causing other injury, initial encounter] Episodic Other injuries and conditions due to external causes (2 sources) Injury of head; Translations: [Unspecified injury of head, initial encounter] 08-11-2023 Episodic Other nervous system disorders (3 sources) Disorder of brain; Translations: [Encephalopathy, unspecified] 12-25-2024 Chronic Other nervous system disorders (2 sources) Difficulty walking; Translations: [Difficulty in walking, not elsewhere classified] 03-05-2025 Chronic Other nervous system disorders (1 source) Impaired cognition; Translations: [Other symptoms and signs involving cognitive functions and awareness] 05-28-2023 Episodic Other nervous system disorders (2 sources) Symbolic dysfunction; Translations: [Other symbolic dysfunctions] 03-05-2025 Episodic Other non-traumatic joint disorders (2 sources) Pain in wrist; Translations: [Pain in right wrist] 03-04-2025 Episodic Other non-traumatic joint disorders (1 source) Pain in right wrist; Translations: [Pain in right wrist] Onset: 5 Episodic Other non-traumatic joint disorders (1 source) Pain in left wrist; Translations: [Pain in left wrist] Onset: 5 Episodic Other upper respiratory disease (2 sources) Seasonal allergic rhinitis; Translations: [Other seasonal allergic rhinitis] 03-05-2025 Chronic Other upper respiratory infections (1 source) Acute laryngitis; Translations: [Laryngitis] Onset: 5 Episodic Residual codes; unclassified (2 sources) Restlessness and agitation; Translations: [Restlessness and agitation] 03-26-2024 Chronic Residual codes; unclassified (2 sources) Restlessness and agitation; Translations: [Restlessness and agitation] Onset: 4 Chronic Residual codes; unclassified (1 source) Feeling nervous; Translations: [Nervousness] Episodic Residual codes; unclassified (2 sources) Altered mental status, unspecified; Translations: [Altered mental status, unspecified altered mental status type] Onset: 5 Episodic Screening and history of mental health and substance abuse codes (10 sources) H/O: psychiatric disorder 12-19-2015 Episodic Skin and subcutaneous tissue infections (1 source) Cellulitis of face; Translations: [Cellulitis of face] 01-23-2024 Episodic Unclassified (1 source) Toxic metabolic encephalopathy; Translations: [Toxic metabolic encephalopathy] Onset: 5 Unclassified (1 source) Difficulty drinking liquids; Translations: [Difficulty drinking liquids] Onset: 5 Urinary tract infections (6 sources) Urinary tract infectious disease; Translations: [Urinary tract infection, site not specified] Onset: 1 Episodic Past or Other Problems Problem Classification Problem Date Documented Da te Episodic/Chronic Disorders of teeth and jaw (3 sources) Dental caries, unspecified; Translations: [Periapical abscess without sinus] Onset: 01-20-2024 Episodic Genitourinary symptoms and ill-defined conditions (20 sources) Herber hematuria; Translations: [Gross hematuria] Onset: 11-10-2022 Episodic Other ear and sense organ disorders (2 sources) Acute eczematoid otitis externa, bilateral; Translations: [Acute eczematoid otitis externa, bilateral] Onset: 12-23-2023 Episodic Other ear and sense organ disorders (2 sources) Impacted cerumen, right ear; Translations: [Impacted cerumen, right ear] Onset: 12-23-2023 Episodic Other ear and sense organ disorders (2 sources) Impacted cerumen, unspecified ear; Translations: [Impacted cerumen, unspecified ear] Onset: 12-23-2023 Episodic Other injuries and conditions due to external causes (2 sources) Unspecified injury of head, initial encounter; Translations: [Unspecified injury of head, initial encounter] Onset: 08-11-2023 Episodic Other skin disorders (1 source) Localized swelling, mass and lump, head; Translations: [Facial swelling] Onset: 01-20-2024 Episodic Otitis media and related conditions (17 sources) Otitis media of left ear; Translations: [Otitis media, unspecified, left ear] Onset: 03-16-2024 03-24-2024 Episodic Results Test Name Value Interpretation Reference Range Facility Orthopedic Visit Reporton Orthopedic Visit Report [facility] [address] [place] [id number] OFFICE VISIT Date of Service: 03/05/25 MR#: [id number] Acct: [id number] Name: SHARLA JOINER Rep #: [id number] : 1975 Provider: LAZARA quiles Age/Sex: 49/F Location: 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: No Accompanied by: Caregiver Is patient in pain?: Yes Allergies No Known Allergies Allergy (Verified 03/05/25 10:39) Medications ???Medication ???Instructions ???Recorded ???Confirmed ???Type amantadine HCl 100 mg capsule 100 mg PO BID 12/25/24 03/05/25 Hi story aspirin 81 mg chewable tablet 1 tab PO DAILY 12/25/24 03/05/25 H istory atropine 1 % eye drops 2 drp sublingual BID 12/25/2402/15 History cholecalciferol (vitamin D3) 50 50 mcg PO DAILY 12/25/24 03/05/25 History mcg (2,000 unit) capsule (Vitamin D3) divalproex 500 mg tablet,delayed 500 mg PO BID 12/25/24 03/05/25 Hi story release fludrocortisone 0.1 mg tablet 0.2 mg PO BID 12/25/24 03/05/25 Hi story fluoride (sodium) 1.1 % dental gel 1 applic dental QHS 12/25/24 History (DentaGel) loperamide 2 mg capsule 2 mg PO Q8H PRN loose stool 03/05/25 History (Anti-Diarrheal (loperamide)) midodrine 5 mg tablet 10 mg PO BID 12/25/24 03/05/25 His tory montelukast 10 mg tablet 10 mg PO DAILY 12/25/24 03/05/25 H istory pantoprazole 40 mg tablet,delayed 40 mg PO DAILY 12/25/24 03/05/25 History release polyethylene glycol 3350 17 17 g PO DAILY PRN constipation 05/1103/05/25 History gram/dose oral powder (ClearLax) trazodone 50 mg tablet 50 mg PO QHS 12/25/24 03/05/25 His tory acetaminophen 325 mg tablet 650 mg PO Q4H PRN 03/05/25 5 History docusate sodium 100 mg capsule 100 mg PO DAILY PRN 03/05/2503/05 History (Colace) lorazepam 0.5 mg tablet 0.5 mg PO BID 03/05/25 03/05/25 Hi story melatonin 5 mg chewable tablet 5 mg PO QHS PRN 03/05/25 03/05/25 History PFSH Medical History (Updated 03/05/25 @ 14:17 by Naye Valero NP-C) Encephalopathy Generalized anxiety disorder Other symbolic dysfunctions Rhabdomyolysis Need for assistance with personal care Difficulty walking Seasonal allergic rhinitis GERD without esophagitis Dysphagia, oropharyngeal Convulsions Muscle weakness Atrial fibrillation Orthostatic hypotension Intellectual disability Bipolar disorder Autistic disorder Thrombocytopenia Polycythemia vera Social History Smoking Status: Never smoker HPI BL WRISTS Details: This documentation accurately reflects the service provided and the decisions made by me, Naye Valero, JOHNSON-C 03/05/25 1033. Part of today???s visit was documented by [ ], acting as scribe. SHARLA JOINER is a 49 year old F here today for b/l wrist pain. Appeared to begin early 01/2025. Increased behaviors or agitation with pain. Neither wrist painful today. Resides at [facility]. Mobile XRAY B/L wrist 01/19/25. Facilities PCP referred to orthopedics for possible brace management for b/l wrist pain secondary to scapholunate widening on radiology report Agree with above. No images accompany pt today No injuries per staff Pt answers yes and no inconsistently when attempting to gather HPI, ECF staff assists and calls ECF for nurse caring for pt and PCP for hx and goals via speakerphone during HPI portion of today's exam ROS Const All systems reviewed are unremarkable except as noted in H and other (A O x 1, no apparent distress. DON from care facility assists with info) ENT Denies dizziness Card Denies chest pain, Denies dyspnea, Denies edema and Reports other (No palpitations) Resp Denies cough, Denies dyspnea and Reports other (No recent URI) GI Reports system reviewed and no additional complaints, except as documented, Denies nausea and Denies vomiting Musc Reports as per HPI Neuro No dizziness Details: Non ambulatory, non verbal with questions. Psych Reports system reviewed and no additional complaints, except as documented Logan/Lymph Denies easy bleeding and Denies easy bruising Ortho Exam General General: Yes no acute distress and Yes well groomed Neurologic: Yes alert (Alert to self, baseline per ECF staff) Right Wrist/Hand WRIST: There is no soft tissue swelling, deformity, ecchymosis or discoloration present ROM of wrist flexion to 50 degrees, 20 extension, approximately 20 degrees with radial and ulnar deviation with APROM, + difficulty following commands There is no bony pain over any of the carpal bones, snuffbox, radius or ulna or (more content not included)... Normal [facility] Wrist 2 Viewson 03-05-2025 Wrist 2 Views [facility] [address] [place] [address] Wrist 2 Views MR#: [id number] Acct: [id number] Name: SHARLA JOINER Rep #: [id number] : 1975 F 49 From: Norberto Anne MD PCP: Dr. Desirae Rosario MD Status: DEP AMB Study: Wrist 2 Views Date of Exam: 03/05/25 Exam# [id number] Ordering Dr: Naye Valreo PROCEDURE: WRIST 2 VIEWS 03/05/2025 REASON FOR EXAM: BILAT WRIST PAIN TECHNIQUE: Left wrist two views COMPARISON: None FINDINGS: There is mild osteoarthritis of the radiocarpal articulation. There is mild widening of the scapholunate articulation to 0.36 cm. The carpal bones appear aligned. There is no acute fracture or dislocation. Mineralization is normal. There is no visible atherosclerosis. RAD/Wrist 2 Views IMPRESSION: There is mild osteoarthritis of the radiocarpal articulation. There is mild widening of the scapholunate articulation to 0.36 cm. Reading Location: [facility] CC: SLAG SKIMMER-C Naye Valero; Dr. Desirae Rosario MD Bilingual Manager: Signed Normal [facility] [address] [place], [place] [address] Wrist 2 Views MR#: [id number] Acct: [id number] Name: SHARLA JOINER Rep #: [id number] : 1975 F 49 From: Norberto Anne MD PCP: Dr. Desirae Rosario MD Status: DEP AMB Study: Wrist 2 Views Date of Exam: 03/05/25 Exam# [id number] Ordering Dr: Naye Valero PROCEDURE: WRIST 2 VIEWS 03/05/2025 REASON FOR EXAM: BILAT WRIST PAIN TECHNIQUE: Right wrist two views COMPARISON: None FINDINGS: There is severe osteoarthritis of the radiocarpal articulation. There is widening of the scapholunate articulation to 0.5 cm with rotational deformity of the scaphoid. There is dorsal angulation of the lunate with DISI instability pattern. Mineralization is normal. There is no visible atherosclerosis. RAD/Wrist 2 Views IMPRESSION: There is severe osteoarthritis of the radiocarpal articulation. There is widening of the scapholunate articulation to 0.5 cm with rotational deformity of the scaphoid. There is dorsal angulation of the lunate with DISI instability pattern. Reading Location: [facility] CC: LAZARA Valero; Dr. Desirae Rosario MD Bilingual Manager: Signed Normal [facility] CASE MANAGEMon 01-07-2025 CASE MANAGEM Normal [facility] CASE MANAGEM Normal [facility] CASE MANAGEM Normal [facility] CNDSon 01-07-2025 CNDS Normal [facility] CASE MANAGEMon 01-06-2025 CASE MANAGEM [facility] NURSING PROGon 01-05-2025 NURSING PROG [facility] THERAPY NTon 01-05-2025 THERAPY NT [facility] CASE MANAGEMon 01-04-2025 CASE MANAGEM [facility] CBC panel Auto (Bld)on 01-04 Erythrocyte distribution width (RBC) [Ratio] 12.2 % Normal 11.5-15.0 [facility] Comment on above: Order Comment: Speci men Type: BLOOD SPECIMENOrdering Facility: [facility] Address: [address] [place] [address] Performed By: #### 5 8410-2, WAMMR ####[facility] LABORATORYCLIA [id number] [place] [address] [place] Hematocrit (Bld) [Volume fraction] 41.4 % Normal 36.0-46.0 [facility] Comment on above: Order Comment: Speci men Type: BLOOD SPECIMENOrdering Facility: [facility] Address: [address] [place] [address] Performed By: #### 5 8410-2, WAMMR ####[facility] LABORATORYCLIA [id number] [place] [address] [place] Hemoglobin (Bld) [Mass/Vol] 13.9 g/dL Normal 11.5-15.5 [facility] Comment on above: Order Comment: Speci men Type: BLOOD SPECIMENOrdering Facility: [facility] Address: [address] [place] [address] Performed By: #### 5 8410-2, WAMMR ####[facility] LABORATORYCLIA [id number] [address] [place] MCH (RBC) [Entitic mass] 32.3 pg Normal 26.0-34.0 [facility] Comment on above: Order Comment: Speci men Type: BLOOD SPECIMENOrdering Facility: [facility] Address: [address] [place] [address] Performed By: #### 5 8410-2, WAMMR ####[facility] LABORATORYCLIA [id number] [place] [address] [place] MCHC (RBC) [Mass/Vol] 33.6 g/dL Normal 30.5-36.0 [facility] Comment on above: Order Comment: Speci men Type: BLOOD SPECIMENOrdering Facility: [facility] Address: [address] [place] [address] Performed By: #### 5 8410-2, WAMMR ####[facility] LABORATORYCLIA [id number] [address] [place] MCV (RBC) [Entitic vol] 96.1 fL Normal 80.0-100.0 [facility] Comment on above: Order Comment: Speci men Type: BLOOD SPECIMENOrdering Facility: [facility] Address: [address] [place] [address] Performed By: #### 5 8410-2, WAMMR ####[facility] LABORATORYCLIA [id number] [address] [place] Nucleated RBC (Bld) [#/Vol] 10*3/uL Normal <0.01 [facility] Comment on above: Order Comment: Speci men Type: BLOOD SPECIMENOrdering Facility: [facility] Address: [address] [place] [address] Performed By: #### 5 8410-2, WAMMR ####[facility] LABORATORYCLIA [id number] [address] [place] Platelet mean volume (Bld) [Entitic vol] 10.9 fL Normal 9.0-12.7 [facility] Comment on above: Order Comment: Speci men Type: BLOOD SPECIMENOrdering Facility: [facility] Address: [address] [place] [address] Performed By: #### 5 8410-2, WAGEORGIAR ####[facility] LABORATORYCLIA [id number] [place] [id number] [place] Platelets (Bld) [#/Vol] 134 10*3/uL Low 150-400 [facility] Comment on above: Order Comment: Speci men Type: BLOOD SPECIMENOrdering Facility: [facility] Address: [address] [place] [address] Result Comment: Plat elet count confirmed by manual review of peripheral blood smear. No clot detected. Performed By: #### 5 8410-2, STALINR ####[facility] LABORATORYCLIA [id number] [place] [address] [place] RBC (Bld) [#/Vol] 4.31 10*6/uL Normal 3.90-5.20 [facility] Comment on above: Order Comment: Speci men Type: BLOOD SPECIMENOrdering Facility: [facility] Address: [address] [place] [address] Performed By: #### 5 8410-2, WAGEORGIAR ####[facility] LABORATORYCLIA [id number] [place] [address] [place] WBC (Bld) [#/Vol] 5.99 10*3/uL Normal 3.70-11.00 [facility] Comment on above: Order Comment: Speci men Type: BLOOD SPECIMENOrdering Facility: [facility] Address: [address] [place] [address] Performed By: #### 5 8410-2, WAMMR ####[facility] LABORATORYCLIA [id number] [place] [address] [place] CONSULT PROGon 01-04-2025 CONSULT PROG Normal [facility] Comprehensive metabolic 2000 panelon 01-04-2025 Albumin [Mass/Vol] 2.5 g/dL Low 3.2-5.0 [facility] Comment on above: Order Comment: Speci men Type: BLOOD SPECIMENOrdering Facility: [facility] Address: [address] [place] [address] Performed By: #### 2 4323-8 ####[facility] LABORATORYCLIA [id number] [place] [id number] [place] ALP [Catalytic activity/Vol] 51 U/L Normal 45-117 [facility] Comment on above: Order Comment: Speci men Type: BLOOD SPECIMENOrdering Facility: [facility] Address: [address] [place] [address] Performed By: #### 2 4323-8 ####[facility] LABORATORYCLIA [id number] [place] [address] [place] ALT [Catalytic activity/Vol] 9 U/L Low 13-61 [facility] Comment on above: Order Comment: Speci men Type: BLOOD SPECIMENOrdering Facility: [facility] Address: [address] [place] [address] Result Comment: Resu lts may be falsely depressed after the administration of Sulfasalazine and/or Sulfapyridine. Performed By: #### 2 4323-8 ####[facility] LABORATORYCLIA [id number] [place] [address] [place] Anion gap [Moles/Vol] 11 mmol/L Normal 5-16 [facility] Comment on above: Order Comment: Speci men Type: BLOOD SPECIMENOrdering Facility: [facility] Address: [address] [place] [address] Performed By: #### 2 4323-8 ####[facility] LABORATORYCLIA [id number] [place] [address] [place] AST [Catalytic activity/Vol] 12 U/L Normal 8-34 [facility] Comment on above: Order Comment: Speci men Type: BLOOD SPECIMENOrdering Facility: [facility] Address: [address] [place] [address] Result Comment: Resu lts may be falsely depressed after the administration of Sulfasalazine and/or Sulfapyridine. Performed By: #### 2 4323-8 ####[facility] LABORATORYCLIA [id number] [place] [address] [place] Bilirubin [Mass/Vol] 0.3 mg/dL Normal 0.2-1.0 [facility] Comment on above: Order Comment: Speci men Type: BLOOD SPECIMENOrdering Facility: [facility] Address: [address] [place] [address] Performed By: #### 2 4323-8 ####[facility] LABORATORYCLIA [id number] [place] [address] [place] Calcium [Mass/Vol] 9.4 mg/dL Normal 8.5-10.5 [facility] Comment on above: Order Comment: Speci men Type: BLOOD SPECIMENOrdering Facility: [facility] Address: [address] [place] [address] Performed By: #### 2 4323-8 ####[facility] LABORATORYCLIA [id number] [place] [address] [place] Chloride [Moles/Vol] 104 mmol/L Normal 98-107 [facility] Comment on above: Order Comment: Speci men Type: BLOOD SPECIMENOrdering Facility: [facility] Address: [address] [place] [address] Performed By: #### 2 4323-8 ####[facility] LABORATORYCLIA [id number] [place] [address] [place] CO2 [Moles/Vol] 26 mmol/L Normal 21-32 [facility] Comment on above: Order Comment: Speci men Type: BLOOD SPECIMENOrdering Facility: [facility] Address: [address] [place] [place] [address] Performed By: #### 2 4323-8 ####[facility] LABORATORYCLIA [id number] [place] [address] [place] Creatinine [Mass/Vol] 0.52 mg/dL Normal 0.51-0.95 [facility] Comment on above: Order Comment: Speci men Type: BLOOD SPECIMENOrdering Facility: [facility] Address: [address] [place] [address] Result Comment: Marilin ents receiving either N-Acetylcysteine (NAC) or Metamizole prior to venipuncture, may have falsely depressed results. Performed By: #### 2 4323-8 ####[facility] LABORATORYCLIA [id number] [place] [address] [place] Creatinine and Glomerular filtration rate.predicted panel (S/P/Bld) 115 mL/min/1.73m??? Normal >=60 [facility] Comment on above: Order Comment: Specpatrice ramos Type: BLOOD SPECIMENOrdering Facility: [facility] Address: [address] [place] [address] Result Comment: Chrissy mated Glomerular Filtration Rate (eGFR) is calculated using the 2020 CKD-EPI creatinine equation. This equation utilizes serum creatinine, sex, and age as parameters. The creatinine assay has traceable calibration to isotope dilution-mass spectrometry. Refer to KDIGO guidelines for clinical interpretation. In patients with unstable renal function, e.g. those with acute kidney injury, the eGFR may not accurately reflect actual GFR. Performed By: #### 2 4323-8 ####[facility] LABORATORYCLIA [id number] [place] [address] [place] Glucose [Mass/Vol] 115 mg/dL High 70-100 [facility] Comment on above: Order Comment: Syd ramos Type: BLOOD SPECIMENOrdering Facility: [facility] Address: [address] [place] [address] Result Comment: The [place] [employer] (ADA) provides guidance for cutoff values for fasting glucose and random glucose. The ADA defines fasting as no caloric intake for at least 8 hours. Fasting plasma glucose results between 100 to 125 mg/dL indicate increased risk for diabetes (prediabetes).Fasting plasma glucose results greater than or equal to 126 mg/dL meet the criteria for diagnosis of diabetes. In the absence of unequivocal hyperglycemia, results should be confirmed by repeat testing. In a patient with classic symptoms of hyperglycemia or hyperglycemic crisis, random plasma glucose results greater than or equal to 200 mg/dL meet the criteria for diagnosis of diabetes.Reference: Standards of Medical Care in Diabetes 2016, [place] [employer]. Diabetes Care. 2016.39(Suppl 1).Results may be falsely elevated after the administration of Sulfapyridine.Results may be falsely depressed after the administration of Sulfasalazine. Performed By: #### 2 4323-8 ####[facility] LABORATORYCLIA [id number] [address] [place] Potassium [Moles/Vol] 3.9 mmol/L Normal 3.5-5.1 [facility] Comment on above: Order Comment: Speci men Type: BLOOD SPECIMENOrdering Facility: [facility] Address: [address] [place] [address] Performed By: #### 2 4323-8 ####[facility] LABORATORYCLIA [id number] [address] [place] Protein [Mass/Vol] 5.8 g/dL Low 6.0-8.5 [facility] Comment on above: Order Comment: Speci men Type: BLOOD SPECIMENOrdering Facility: [facility] Address: [address] [place] [address] Performed By: #### 2 4323-8 ####[facility] LABORATORYCLIA [id number] [address] [place] Sodium [Moles/Vol] 141 mmol/L Normal 136-145 [facility] Comment on above: Order Comment: Speci men Type: BLOOD SPECIMENOrdering Facility: [facility] Address: [address] [place] [address] Performed By: #### 2 4323-8 ####[facility] LABORATORYCLIA [id number] [address] [place] Urea nitrogen [Mass/Vol] 9 mg/dL Normal 7-26 [facility] Comment on above: Order Comment: Speci men Type: BLOOD SPECIMENOrdering Facility: [facility] Address: [address] [place] [address] Performed By: #### 2 4323-8 ####[facility] LABORATORYCLIA [id number] [place] [address] [place] MORPH WAM REFLEXon 5 Ovalocytes LM Ql (Bld) Few Normal [facility] Comment on above: Order Comment: Speci men Type: BLOOD SPECIMENOrdering Facility: [facility] Address: [address] [place] [address] Performed By: #### 5 8410-2, WAGEORGIAR ####[facility] LABORATORYCLIA [id number] [place] [address] [place] Platelets Estimate (Bld) [#/Vol] Decreased Normal [facility] Comment on above: Order Comment: Speci men Type: BLOOD SPECIMENOrdering Facility: [facility] Address: [address] [place] [address] Performed By: #### 5 8410-2, WAGEORGIAR ####[facility] LABORATORYCLIA [id number] [place] [address] [place] Polychromasia LM Ql (Bld) Slight [facility] Comment on above: Order Comment: Speci men Type: BLOOD SPECIMENOrdering Facility: [facility] Address: [address] [place] [address] Performed By: #### 5 8410-2, WAMMR ####[facility] LABORATORYCLIA [id number] [address] [place] RED CELL MORPH Reviewed: see result s of individual morphologies [facility] Comment on above: Order Comment: Speci men Type: BLOOD SPECIMENOrdering Facility: [facility] Address: [address] [place] [address] Performed By: #### 5 8410-2, WAMMR ####[facility] LABORATORYCLIA [id number] [place] [address] [place] THERAPY NTon 01-04-2025 THERAPY NT [facility] THERAPY NT [facility] CBC panel Auto (Bld)on 01-03 Erythrocyte distribution width (RBC) [Ratio] 12.2 % Normal 11.5-15.0 [facility] Comment on above: Order Comment: Speci men Type: BLOOD SPECIMENOrdering Facility: [facility] Address: [address] [place] [address] Performed By: #### 5 8410-2 ####[facility] LABORATORYCLIA [id number] [address] [place] Hematocrit (Bld) [Volume fraction] 39.5 % Normal 36.0-46.0 [facility] Comment on above: Order Comment: Speci men Type: BLOOD SPECIMENOrdering Facility: [facility] Address: [address] [place] [address] Performed By: #### 5 8410-2 ####[facility] LABORATORYCLIA [id number] [address] [place] Hemoglobin (Bld) [Mass/Vol] 13.7 g/dL Normal 11.5-15.5 [facility] Comment on above: Order Comment: Speci men Type: BLOOD SPECIMENOrdering Facility: [facility] Address: [address] [place] [address] Performed By: #### 5 8410-2 ####[facility] LABORATORYCLIA [id number] [address] STATES OF [facility] MCH (RBC) [Entitic mass] 32.5 pg Normal 26.0-34.0 [facility] Comment on above: Order Comment: Speci men Type: BLOOD SPECIMENOrdering Facility: [facility] Address: [address] [place] [address] Performed By: #### 5 8410-2 ####[facility] LABORATORYCLIA [id number] [place] [address] [place] MCHC (RBC) [Mass/Vol] 34.7 g/dL Normal 30.5-36.0 [facility] Comment on above: Order Comment: Speci men Type: BLOOD SPECIMENOrdering Facility: [facility] Address: [address] [place] [address] Performed By: #### 5 8410-2 ####[facility] LABORATORYCLIA [id number] [place] [address] [place] MCV (RBC) [Entitic vol] 93.6 fL Normal 80.0-100.0 [facility] Comment on above: Order Comment: Speci men Type: BLOOD SPECIMENOrdering Facility: [facility] Address: [address] [place] [address] Performed By: #### 5 8410-2 ####[facility] LABORATORYCLIA [id number] [place] [id number] [place] Nucleated RBC (Bld) [#/Vol] 10*3/uL Normal <0.01 [facility] Comment on above: Order Comment: Speci men Type: BLOOD SPECIMENOrdering Facility: [facility] Address: [address] [place] [address] Performed By: #### 5 8410-2 ####[facility] LABORATORYCLIA [id number] [place] [address] [place] Platelet mean volume (Bld) [Entitic vol] 10.2 fL Normal 9.0-12.7 [facility] Comment on above: Order Comment: Speci men Type: BLOOD SPECIMENOrdering Facility: [facility] Address: [address] [place] [address] Performed By: #### 5 8410-2 ####[facility] LABORATORYCLIA [id number] [place] [address] [place] Platelets (Bld) [#/Vol] 153 10*3/uL Normal 150-400 [facility] Comment on above: Order Comment: Speci men Type: BLOOD SPECIMENOrdering Facility: [facility] Address: [address] [place] [address] Performed By: #### 5 8410-2 ####[facility] LABORATORYCLIA [id number] [place] [address] [place] RBC (Bld) [#/Vol] 4.22 10*6/uL Normal 3.90-5.20 [facility] Comment on above: Order Comment: Speci men Type: BLOOD SPECIMENOrdering Facility: [facility] Address: [address] [place] [address] Performed By: #### 5 8410-2 ####[facility] LABORATORYCLIA [id number] [place] [address] [place] WBC (Bld) [#/Vol] 7.98 10*3/uL Normal 3.70-11.00 [facility] Comment on above: Order Comment: Speci men Type: BLOOD SPECIMENOrdering Facility: [facility] Address: [address] [place] [address] Performed By: #### 5 8410-2 ####[facility] LABORATORYCLIA [id number] [address] [place] CONSULT PROGon 01-03-2025 CONSULT PROG Normal [facility] Comprehensive metabolic 2000 panelon 01-03-2025 Albumin [Mass/Vol] 2.6 g/dL Low 3.2-5.0 [facility] Comment on above: Order Comment: Speci men Type: BLOOD SPECIMENOrdering Facility: [facility] Address: [address] [place] [address] Performed By: #### 2 4323-8 ####[facility] LABORATORYCLIA [id number] [address] [place] ALP [Catalytic activity/Vol] 52 U/L Normal 45-117 [facility] Comment on above: Order Comment: Speci men Type: BLOOD SPECIMENOrdering Facility: [facility] Address: [address] [place] [address] Performed By: #### 2 4323-8 ####[facility] LABORATORYCLIA [id number] [address] [place] ALT [Catalytic activity/Vol] 9 U/L Low 13-61 [facility] Comment on above: Order Comment: Speci men Type: BLOOD SPECIMENOrdering Facility: [facility] Address: [address] [place] [address] Result Comment: Resu lts may be falsely depressed after the administration of Sulfasalazine and/or Sulfapyridine. Performed By: #### 2 4323-8 ####[facility] LABORATORYCLIA [id number] [address] [place] Anion gap [Moles/Vol] 6 mmol/L Normal 5-16 [facility] Comment on above: Order Comment: Speci men Type: BLOOD SPECIMENOrdering Facility: [facility] Address: [address] [place] [address] Performed By: #### 2 4323-8 ####[facility] LABORATORYCLIA [id number] [place] [address] [place] AST [Catalytic activity/Vol] 14 U/L Normal 8-34 [facility] Comment on above: Order Comment: Speci men Type: BLOOD SPECIMENOrdering Facility: [facility] Address: [address] [place] [address] Result Comment: Resu lts may be falsely depressed after the administration of Sulfasalazine and/or Sulfapyridine. Performed By: #### 2 4323-8 ####[facility] LABORATORYCLIA [id number] [place] [address] [place] Bilirubin [Mass/Vol] 0.4 mg/dL Normal 0.2-1.0 [facility] Comment on above: Order Comment: Speci men Type: BLOOD SPECIMENOrdering Facility: [facility] Address: [address] [place] [address] Performed By: #### 2 4323-8 ####[facility] LABORATORYCLIA [id number] [place] [address] [place] Calcium [Mass/Vol] 9.5 mg/dL Normal 8.5-10.5 [facility] Comment on above: Order Comment: Speci men Type: BLOOD SPECIMENOrdering Facility: [facility] Address: [address] [place] [address] Performed By: #### 2 4323-8 ####[facility] LABORATORYCLIA [id number] [place] [address] [place] Chloride [Moles/Vol] 106 mmol/L Normal 98-107 [facility] Comment on above: Order Comment: Speci men Type: BLOOD SPECIMENOrdering Facility: [facility] Address: [address] [place] [address] Performed By: #### 2 4323-8 ####[facility] LABORATORYCLIA [id number] [place] [address] [place] CO2 [Moles/Vol] 27 mmol/L Normal 21-32 [facility] Comment on above: Order Comment: Speci men Type: BLOOD SPECIMENOrdering Facility: [facility] Address: [address] [place] [address] Performed By: #### 2 4323-8 ####[facility] LABORATORYCLIA [id number] [place] [address] [place] Creatinine [Mass/Vol] 0.50 mg/dL Low 0.51-0.95 [facility] Comment on above: Order Comment: Speci men Type: BLOOD SPECIMENOrdering Facility: [facility] Address: [address] [place] [address] Result Comment: Marilin ents receiving either N-Acetylcysteine (NAC) or Metamizole prior to venipuncture, may have falsely depressed results. Performed By: #### 2 4323-8 ####[facility] LABORATORYCLIA [id number] [address] Creatinine and Glomerular filtration rate.predicted panel (S/P/Bld) 117 mL/min/1.73m??? Normal >=60 [facility] Comment on above: Order Comment: Speci men Type: BLOOD SPECIMENOrdering Facility: [facility] Address: [address] [place] [address] Result Comment: Chrissy mated Glomerular Filtration Rate (eGFR) is calculated using the 2020 CKD-EPI creatinine equation. This equation utilizes serum creatinine, sex, and age as parameters. The creatinine assay has traceable calibration to isotope dilution-mass spectrometry. Refer to KDIGO guidelines for clinical interpretation. In patients with unstable renal function, e.g. those with acute kidney injury, the eGFR may not accurately reflect actual GFR. Performed By: #### 2 4323-8 ####[facility] LABORATORYCLIA [id number] [place] [id number] [place] Glucose [Mass/Vol] 103 mg/dL High 70-100 [facility] Comment on above: Order Comment: Syd ramos Type: BLOOD SPECIMENOrdering Facility: [facility] Address: [address] [place] [address] Result Comment: The [place] [employer] (ADA) provides guidance for cutoff values for fasting glucose and random glucose. The ADA defines fasting as no caloric intake for at least 8 hours. Fasting plasma glucose results between 100 to 125 mg/dL indicate increased risk for diabetes (prediabetes).Fasting plasma glucose results greater than or equal to 126 mg/dL meet the criteria for diagnosis of diabetes. In the absence of unequivocal hyperglycemia, results should be confirmed by repeat testing. In a patient with classic symptoms of hyperglycemia or hyperglycemic crisis, random plasma glucose results greater than or equal to 200 mg/dL meet the criteria for diagnosis of diabetes.Reference: Standards of Medical Care in Diabetes 2016, [place] [employer]. Diabetes Care. 2016.39(Suppl 1).Results may be falsely elevated after the administration of Sulfapyridine.Results may be falsely depressed after the administration of Sulfasalazine. Performed By: #### 2 4323-8 ####[facility] LABORATORYCLIA [id number] [place] [address] [place] Potassium [Moles/Vol] 3.8 mmol/L Normal 3.5-5.1 [facility] Comment on above: Order Comment: Syd ramos Type: BLOOD SPECIMENOrdering Facility: [facility] Address: [address] [place] [address] Performed By: #### 2 4323-8 ####[facility] LABORATORYCLIA [id number] [place] [address] [place] Protein [Mass/Vol] 6.0 g/dL Normal 6.0-8.5 [facility] Comment on above: Order Comment: Syd ramos Type: BLOOD SPECIMENOrdering Facility: [facility] Address: [address] [place], [place] [address] Performed By: #### 2 4323-8 ####[facility] LABORATORYCLIA [id number] [place] [address] [place] Sodium [Moles/Vol] 139 mmol/L Normal 136-145 [facility] Comment on above: Order Comment: Syd ramos Type: BLOOD SPECIMENOrdering Facility: [facility] Address: [address] [place] [address] Performed By: #### 2 4323-8 ####[facility] LABORATORYCLIA [id number] [place] [id number] [place] Urea nitrogen [Mass/Vol] 8 mg/dL Normal 7-26 [facility] Comment on above: Order Comment: Syd richard Type: BLOOD SPECIMENOrdering Facility: [facility] Address: [address] [place] [address] Performed By: #### 2 4323-8 ####[facility] LABORATORYCLIA [id number] [place] [id number] [place] THERAPY NTon 01-03-2025 THERAPY NT Normal [facility] XR ABDOMEN 1V SUPINEon 01-03 XR ABDOMEN 1V SUPINE Normal [facility] AUTOIMMUNE ENCEPHALOPATHY EV ALUATION, CSFon 01-02-2025 AMPA-RECEPTOR AB CBA, CSF Negative Normal Negative [facility] Comment on above: Order Comment: Syd ramos Type: CEREBROSPINAL FLUID SPECIMENOrdering Facility: [facility] Address: [address] [place] [address] Result Comment: ---- ADDITIONAL INFORMATION This test was developed and its performance characteristicsdetermined by [facility] in a manner consistent with CLIArequirements. This test has not been cleared or approved bythe U.S. Food and Drug Administration. Performed By: #### E NCCS ####[facility] LABCLIA [id number] [place] [address] AMPHIPHYSIN AB, CSF Negative Normal Negative [facility] Comment on above: Order Comment: Syd richard Type: CEREBROSPINAL FLUID SPECIMENOrdering Facility: [facility] Address: [address] [place] [address] Result Comment: ---- ADDITIONAL INFORMATION This test was developed and its performance characteristicsdetermined by [facility] in a manner consistent with CLIArequirements. This test has not been cleared or approved bythe U.S. Food and Drug Administration. Performed By: #### E NCCSF ####[facility] LABCLIA [id number] [place] [address] ANTI-GLIAL NUCLEAR AB TYPE 1, CSF Negative Normal Negative [facility] Comment on above: Order Comment: Syd ramos Type: CEREBROSPINAL FLUID SPECIMENOrdering Facility: [facility] Address: [address] [place] [address] Result Comment: ---- ADDITIONAL INFORMATION This test was developed and its performance characteristicsdetermined by [facility] in a manner consistent with CLIArequirements. This test has not been cleared or approved bythe U.S. Food and Drug Administration. Performed By: #### E NCCSF ####[facility] LABCLIA [id number] [place] [address] ANTI-NEURONAL AB TYPE 1, CSF Negative Normal Negative [facility] Comment on above: Order Comment: Syd ramos Type: CEREBROSPINAL FLUID SPECIMENOrdering Facility: [facility] Address: [address] [place] [address] Result Comment: ---- ADDITIONAL INFORMATION This test was developed and its performance characteristicsdetermined by [facility] in a manner consistent with CLIArequirements. This test has not been cleared or approved bythe U.S. Food and Drug Administration. Performed By: #### E NCCSF ####[facility] LABCLIA [id number] [place] [address] ANTI-NEURONAL AB TYPE 2, CSF Negative Normal Negative [facility] Comment on above: Order Comment: Syd [facility] Type: CEREBROSPINAL FLUID SPECIMENOrdering Facility: [facility] Address: [address] [place] [address] Result Comment: ---- ADDITIONAL INFORMATION This test was developed and its performance characteristicsdetermined by [facility] in a manner consistent with CLIArequirements. This test has not been cleared or approved bythe U.S. Food and Drug Administration. Performed By: #### E NCCSF ####[facility] LABCLIA [id number] [place] [address] ANTI-NEURONAL AB TYPE 3, CSF Negative Normal Negative [facility] Comment on above: Order Comment: [facility] Type: CEREBROSPINAL FLUID SPECIMENOrdering Facility: [facility] Address: [address] [place] [address] Result Comment: ---- ADDITIONAL INFORMATION This test was developed and its performance characteristicsdetermined by [facility] in a manner consistent with CLIArequirements. This test has not been cleared or approved bythe .S. Food and Drug Administration. Performed By: #### E NCCSF ####[facility] LABCLIA [id number] [place] [address] CASPR2 IGG, CSF Negative Normal Negative [facility] Comment on above: Order Comment: Syd ramos Type: CEREBROSPINAL FLUID SPECIMENOrdering Facility: [facility] Address: [address] [place] [address] Result Comment: ---- ADDITIONAL INFORMATION This test was developed and its performance characteristicsdetermined by [facility] in a manner consistent with CLIArequirements. This test has not been cleared or approved bythe U.S. Food and Drug Administration. Performed By: #### E NCCSF ####[facility] LABCLIA [id number] [place] [address] CRMP-5 IGG, CSF Negative Normal Negative [facility] Comment on above: Order Comment: [facility] Type: CEREBROSPINAL FLUID SPECIMENOrdering Facility: [facility] Address: [address] [place] [address] Result Comment: ---- ADDITIONAL INFORMATION This test was developed and its performance characteristicsdetermined by [facility] in a manner consistent with CLSwankequireBonush. This test has not been cleared or approved bythe U.S. Food and Drug Administration. Performed By: #### E NCCSF ####[facility] LABCLIA [id number] [place] [address] DPPX AB CBA, CSF Negative Normal Negative [facility] Comment on above: Order Comment: [facility] Type: CEREBROSPINAL FLUID SPECIMENOrdering Facility: [facility] Address: [address] [place] [address] Result Comment: ---- ADDITIONAL INFORMATION This test was developed and its performance characteristicsdetermined by [facility] in a manner consistent with CLIArequireBonush. This test has not been cleared or approved bythe .S. Food and Drug Administration. Performed By: #### E NCCSF ####[facility] LABCLIA [id number] [place] [address] ENCEPHALOPATHY INTERPRETATION, CSF SEE NOTE Normal [facility] Comment on above: Order Comment: [facility] Type: CEREBROSPINAL FLUID SPECIMENOrdering Facility: [facility] Address: [address] [place] [address] Result Comment: No i nformative autoantibodies were detected in thisevaluation. However, a negative result does not excludeautoimmune encephalopathy, idiopathic or paraneoplastic.Sensitivity and specificity of antibody testing areenhanced by testing both serum and CSF. Performed By: #### E NCCSF ####[facility] LABCLIA [id number] [place] [address] ABRAN-B-R AB CBA, CSF Negative Normal Negative [facility] Comment on above: Order Comment: [facility] Type: CEREBROSPINAL FLUID SPECIMENOrdering Facility: [facility] Address: [address] [place] [address] Result Comment: ---- ADDITIONAL INFORMATION This test was developed and its performance characteristicsdetermined by [facility] in a manner consistent with CLIArequirements. This test has not been cleared or approved bythe U.S. Food and Drug Administration. Performed By: #### E NCCSF ####[facility] LABCLIA [id number] [place] [address] GAD65 ANTIBODY, CSF 0.00 nmol/L Normal <= 0.02 [facility] Comment on above: Order Comment: Syd ramos Type: CEREBROSPINAL FLUID SPECIMENOrdering Facility: [facility] Address: [address] [place] [address] Result Comment: ---- ADDITIONAL INFORMATION This test was developed and its performance characteristicsdetermined by [facility] in a manner consistent with CLIArequirements. This test has not been cleared or approved bythe U.S. Food and Drug Administration. Performed By: #### Jenna NCCSF ####[facility] LABCLIA [id number] [place] [address] GFAP IFA, CSF Negative Normal Negative [facility] Comment on above: Order Comment: Syd ramos Type: CEREBROSPINAL FLUID SPECIMENOrdering Facility: [facility] Address: [address] [place] [address] Result Comment: ---- ADDITIONAL INFORMATION This test was developed and its performance characteristicsdetermined by [facility] in a manner consistent with CLIArequirements. This test has not been cleared or approved bythe U.S. Food and Drug Administration. Performed By: #### E NCCSF ####[facility] LABCLIA [id number] [place] [address] IFA NOTES - ENCCSF None. Normal [facility] Comment on above: Order Comment: Speci richard Type: CEREBROSPINAL FLUID SPECIMENOrdering Facility: [facility] Address: [address] [place] [address] Performed By: #### E NCCSF ####[facility] LABCLIA [id number] [place] [address] IGLON5 CBA, CSF Negative Normal Negative [facility] Comment on above: Order Comment: Syd ramos Type: CEREBROSPINAL FLUID SPECIMENOrdering Facility: [facility] Address: [address] [place] [address] Result Comment: ---- ADDITIONAL INFORMATION This test was developed and its performance characteristicsdetermined by [facility] in a manner consistent with CLIArequirements. This test has not been cleared or approved bythe .S. Food and Drug Administration. Performed By: #### E NCCSF ####[facility] LABCLIA [id number] [place] [address] LGI1 IGG, CSF Negative Normal Negative [facility] Comment on above: Order Comment: Syd ramos Type: CEREBROSPINAL FLUID SPECIMENOrdering Facility: [facility] Address: [address] [place] [address] Result Comment: ---- ADDITIONAL INFORMATION This test was developed and its performance characteristicsdetermined by [facility] in a manner consistent with CLIArequirements. This test has not been cleared or approved bythe U.S. Food and Drug Administration. Performed By: #### E NCCSF ####[facility] LABCLIA [id number] [place] [address] MGLUR1 AB IFA, CSF Negative Normal Negative [facility] Comment on above: Order Comment: Syd richard Type: CEREBROSPINAL FLUID SPECIMENOrdering Facility: [facility] Address: [address] [place] [address] Result Comment: ---- ADDITIONAL INFORMATION This test was developed and its performance characteristicsdetermined by [facility] in a manner consistent with CLIArequirements. This test has not been cleared or approved bythe U.S. Food and Drug Administration. Performed By: #### E NCCSF ####[facility] LABCLIA [id number] [place] [address] NEUROCHONDRIN IFA, CSF Negative Normal Negative [facility] Comment on above: Order Comment: [facility] Type: CEREBROSPINAL FLUID SPECIMENOrdering Facility: [facility] Address: [address] [place] [address] Result Comment: ---- ADDITIONAL INFORMATION This test was developed and its performance characteristicsdetermined by [facility] in a manner consistent with CLIArequirements. This test has not been cleared or approved bythe .S. Food and Drug Administration. Performed By: #### E NCCSF ####[facility] LABCLIA [id number] [place] [address] NIF IFA, CSF Negative Normal Negative [facility] Comment on above: Order Comment: Syd ramos Type: CEREBROSPINAL FLUID SPECIMENOrdering Facility: [facility] Address: [address] [place] [address] Result Comment: ---- ADDITIONAL INFORMATION This test was developed and its performance characteristicsdetermined by [facility] in a manner consistent with CLIArequirements. This test has not been cleared or approved bythe U.S. Food and Drug Administration. Performed By: #### E NCCSF ####[facility] LABCLIA [id number] [place] [address] NMDA-RECEPTOR AB CBA, CSF Negative Normal Negative [facility] Comment on above: Order Comment: [facility] Type: CEREBROSPINAL FLUID SPECIMENOrdering Facility: [facility] Address: [address] [place] [address] Result Comment: ---- ADDITIONAL INFORMATION This test was developed and its performance characteristicsdetermined by [facility] in a manner consistent with CLIArequirements. This test has not been cleared or approved bythe U.S. Food and Drug Administration. Performed By: #### E NCCSF ####[facility] LABCLIA [id number] [place] [address] PDE10A AB IFA, CSF Negative Normal Negative [facility] Comment on above: Order Comment: Syd ramos Type: CEREBROSPINAL FLUID SPECIMENOrdering Facility: [facility] Address: [address] [place] [address] Result Comment: ---- ADDITIONAL INFORMATION This test was developed and its performance characteristicsdetermined by [facility] in a manner consistent with CLIArequirements. This test has not been cleared or approved bythe U.S. Food and Drug Administration. Performed By: #### E NCCSF ####[facility] LABCLIA [id number] [place] [address] PURKINJE CELL CYTO AB TYPE 1, CSF Negative Normal Negative [facility] Comment on above: Order Comment: Syd ramos Type: CEREBROSPINAL FLUID SPECIMENOrdering Facility: [facility] Address: [address] [place] [address] Result Comment: ---- ADDITIONAL INFORMATION This test was developed and its performance characteristicsdetermined by [facility] in a manner consistent with CLIArequirements. This test has not been cleared or approved bythe U.S. Food and Drug Administration. Performed By: #### E NCCSF ####[facility] LABCLIA [id number] [place] [address] PURKINJE CELL CYTO AB TYPE 2, CSF Negative Normal Negative [facility] Comment on above: Order Comment: [facility] Type: CEREBROSPINAL FLUID SPECIMENOrdering Facility: [facility] Address: [address] [place] [address] Result Comment: ---- ADDITIONAL INFORMATION This test was developed and its performance characteristicsdetermined by [facility] in a manner consistent with CLIArequirements. This test has not been cleared or approved bythe .S. Food and Drug Administration. Performed By: #### E NCCSF ####[facility] LABCLIA [id number] [place] [id number] PURKINJE CELL CYTO AB TYPE TR, CSF Negative Normal Negative [facility] Comment on above: Order Comment: [facility] Type: CEREBROSPINAL FLUID SPECIMENOrdering Facility: [facility] Address: [address] [place] [address] Result Comment: ---- ADDITIONAL INFORMATION This test was developed and its performance characteristicsdetermined by [facility] in a manner consistent with CLIArequirements. This test has not been cleared or approved bythe U.S. Food and Drug Administration. Performed By: #### E NCCSF ####[facility] LABCLIA [id number] [place] [id number] SEPTIN-7 IFA, CSF Negative Normal Negative [facility] Comment on above: Order Comment: [facility] Type: CEREBROSPINAL FLUID SPECIMENOrdering Facility: [facility] Address: [address] [place] [address] Result Comment: ---- ADDITIONAL INFORMATION This test was developed and its performance characteristicsdetermined by [facility] in a manner consistent with CLIArequirements. This test has not been cleared or approved bythe U.S. Food and Drug Administration. Performed By: #### E NCCSF ####[facility] LABCLIA [id number] [place] [address] TRIM46 AB IFA, CSF Negative Normal Negative [facility] Comment on above: Order Comment: Syd ramos Type: CEREBROSPINAL FLUID SPECIMENOrdering Facility: [facility] Address: [address] [place] [address] Result Comment: ---- ADDITIONAL INFORMATION This test was developed and its performance characteristicsdetermined by [facility] in a manner consistent with CLIArequirements. This test has not been cleared or approved bythe U.S. Food and Drug Administration.Test Performed by:[address] [address]Icl Director: Cinthia Resendiz Ph.D.; CLIA# [id number] Performed By: #### E NCCSF ####[facility] LABCLIA [id number] [place] [address] BANDS OLIGOCLONAL CSFon 12-16 CSF OLIGOCLONAL BANDS Identical oligoclo nal bands are present in both the CSF and serum. No unique bands are present in the CSF. Suggestive of systemic immune reaction with transfer of serum IgG to CSF. No evidence of intrathecal synthesis. Normal [facility] Comment on above: Order Comment: Speci men Type: CEREBROSPINAL FLUID SPECIMENOrdering Facility: [facility] Address: [address] [place] [address] Performed By: #### Prudencio DOLGCSF ####[facility] LABCLIA [id number] [place] [address] [place] STAFF REVIEW (OLIGO BANDING) Reviewed by Cristin Santoyo M.D., Ph.D [facility] Comment on above: Order Comment: Syd ramos Type: CEREBROSPINAL FLUID SPECIMENOrdering Facility: [facility] Address: [address] [place] [address] Performed By: #### Prudencio DOLGCSF ####[facility] LABCLIA [id number] [facility]ENTERCor[facility] [address] [place] BRIEF OP NOTon 01-02-2025 BRIEF OP NOT Normal [facility] Bacteria CSF Culton 01-03-20 25 Bacteria identified Cx Nom (CSF) CULTURE, CSF: No growth 5 days GRAM STAIN: No WBCs seen No organisms seen Normal [facility] Comment on above: Performed By: #### 6 06-4 ####[facility] LABORATORYCLIA [id number] [place] [address] [place] CASE MANAGEMon 01-02-2025 CASE MANAGEM Normal [facility] CBC W Auto Differential pane l (Bld)on 01-02-2025 Basophils (Bld) [#/Vol] 10*3/uL Normal <0.11 [facility] Comment on above: Order Comment: Speci men Type: BLOOD SPECIMENOrdering Facility: [facility] Address: [address] [place] [address] Performed By: #### 5 7021-8 ####[facility] LABORATORYCLIA [id number] [place] [address] [place] Basophils/100 WBC (Bld) 0.3 % Normal [facility] Comment on above: Order Comment: Speci men Type: BLOOD SPECIMENOrdering Facility: [facility] Address: [address] [place] [address] Performed By: #### 5 7021-8 ####[facility] LABORATORYCLIA [id number] [place] [address] [place] Differential cell count method Nom (Bld) Auto Normal [facility] Comment on above: Order Comment: Speci men Type: BLOOD SPECIMENOrdering Facility: [facility] Address: [address] [place] [address] Performed By: #### 5 7021-8 ####[facility] LABORATORYCLIA [id number] [place] [address] [place] Eosinophils (Bld) [#/Vol] 0.04 10*3/uL Normal <0.46 [facility] Comment on above: Order Comment: Speci men Type: BLOOD SPECIMENOrdering Facility: [facility] Address: [address] [place] [address] Performed By: #### 5 7021-8 ####[facility] LABORATORYCLIA [id number] [place] [id number] [place] Eosinophils/100 WBC (Bld) 0.5 % Normal [facility] Comment on above: Order Comment: Speci men Type: BLOOD SPECIMENOrdering Facility: [facility] Address: [address] [place] [address] Performed By: #### 5 7021-8 ####[facility] LABORATORYCLIA [id number] [place] [address] [place] Erythrocyte distribution width (RBC) [Ratio] 12.0 % Normal 11.5-15.0 [facility] Comment on above: Order Comment: Speci men Type: BLOOD SPECIMENOrdering Facility: [facility] Address: [address] [place] [address] Performed By: #### 5 7021-8 ####[facility] LABORATORYCLIA [id number] [place] [address] [place] Hematocrit (Bld) [Volume fraction] 41.0 % Normal 36.0-46.0 [facility] Comment on above: Order Comment: Speci men Type: BLOOD SPECIMENOrdering Facility: [facility] Address: [address] [place] [address] Performed By: #### 5 7021-8 ####[facility] LABORATORYCLIA [id number] [place] [address] [place] Hemoglobin (Bld) [Mass/Vol] 14.1 g/dL Normal 11.5-15.5 [facility] Comment on above: Order Comment: Speci men Type: BLOOD SPECIMENOrdering Facility: [facility] Address: [address] [place] [address] Performed By: #### 5 7021-8 ####[facility] LABORATORYCLIA [id number] [place] [address] [place] Immature granulocytes (Bld) [#/Vol] 0.08 10*3/uL Normal <0.10 [facility] Comment on above: Order Comment: Speci men Type: BLOOD SPECIMENOrdering Facility: [facility] Address: [address] [place] [address] Performed By: #### 5 7021-8 ####[facility] LABORATORYCLIA [id number] [place] [address] [place] Immature granulocytes/100 WBC (Bld) 1.1 % Normal [facility] Comment on above: Order Comment: Speci men Type: BLOOD SPECIMENOrdering Facility: [facility] Address: [address] [place] [address] Performed By: #### 5 7021-8 ####[facility] LABORATORYCLIA [id number] [place] [address] [place] Lymphocytes (Bld) [#/Vol] 1.85 10*3/uL Normal 1.00-4.00 [facility] Comment on above: Order Comment: Speci men Type: BLOOD SPECIMENOrdering Facility: [facility] Address: [address] [place] [address] Performed By: #### 5 7021-8 ####[facility] LABORATORYCLIA [id number] [address] [place] Lymphocytes/100 WBC (Bld) 25.1 % Normal [facility] Comment on above: Order Comment: Speci men Type: BLOOD SPECIMENOrdering Facility: [facility] Address: [address] [place] [address] Performed By: #### 5 7021-8 ####[facility] LABORATORYCLIA [id number] [place] [address] [place] MCH (RBC) [Entitic mass] 32.0 pg Normal 26.0-34.0 [facility] Comment on above: Order Comment: Speci men Type: BLOOD SPECIMENOrdering Facility: [facility] Address: [address] [place] [address] Performed By: #### 5 7021-8 ####[facility] LABORATORYCLIA [id number] [place] [id number] [place] MCHC (RBC) [Mass/Vol] 34.4 g/dL Normal 30.5-36.0 [facility] Comment on above: Order Comment: Speci men Type: BLOOD SPECIMENOrdering Facility: [facility] Address: [address] [place] [address] Performed By: #### 5 7021-8 ####[facility] LABORATORYCLIA [id number] [place] [address] [place] MCV (RBC) [Entitic vol] 93.2 fL Normal 80.0-100.0 [facility] Comment on above: Order Comment: Speci men Type: BLOOD SPECIMENOrdering Facility: [facility] Address: [address] [place] [address] Performed By: #### 5 7021-8 ####[facility] LABORATORYCLIA [id number] [place] [address] [place] Monocytes (Bld) [#/Vol] 0.90 10*3/uL High <0.87 [facility] Comment on above: Order Comment: Speci men Type: BLOOD SPECIMENOrdering Facility: [facility] Address: [address] [place] [address] Performed By: #### 5 7021-8 ####[facility] LABORATORYCLIA [id number] [address] [place] Monocytes/100 WBC (Bld) 12.2 % Normal [facility] Comment on above: Order Comment: Speci men Type: BLOOD SPECIMENOrdering Facility: [facility] Address: [address] [place] [address] Performed By: #### 5 7021-8 ####[facility] LABORATORYCLIA [id number] [place] [address] [place] Neutrophils (Bld) [#/Vol] 4.47 10*3/uL Normal 1.45-7.50 [facility] Comment on above: Order Comment: Speci men Type: BLOOD SPECIMENOrdering Facility: [facility] Address: [address] [place] [address] Performed By: #### 5 7021-8 ####[facility] LABORATORYCLIA [id number] [place] [id number] [place] Neutrophils/100 WBC (Bld) 60.8 % Normal [facility] Comment on above: Order Comment: Speci men Type: BLOOD SPECIMENOrdering Facility: [facility] Address: [address] [place] [address] Performed By: #### 5 7021-8 ####[facility] LABORATORYCLIA [id number] [place] [address] [place] Nucleated RBC (Bld) [#/Vol] 10*3/uL Normal <0.01 [facility] Comment on above: Order Comment: Speci men Type: BLOOD SPECIMENOrdering Facility: [facility] Address: [address] [place] [address] Performed By: #### 5 7021-8 ####[facility] LABORATORYCLIA [id number] [place] [address] [place] Nucleated RBC/100 WBC (Bld) [Ratio] 0.0 /100 WBC Normal [facility] Comment on above: Order Comment: Speci men Type: BLOOD SPECIMENOrdering Facility: [facility] Address: [address] [place] [address] Performed By: #### 5 7021-8 ####[facility] LABORATORYCLIA [id number] [place] [address] [place] Platelet mean volume (Bld) [Entitic vol] 10.4 fL Normal 9.0-12.7 [facility] Comment on above: Order Comment: Speci men Type: BLOOD SPECIMENOrdering Facility: [facility] Address: [address] [place] [address] Performed By: #### 5 7021-8 ####[facility] LABORATORYCLIA [id number] [place] [address] [place] Platelets (Bld) [#/Vol] 159 10*3/uL Normal 150-400 [facility] Comment on above: Order Comment: Speci men Type: BLOOD SPECIMENOrdering Facility: [facility] Address: [address] [place] [address] Performed By: #### 5 7021-8 ####[facility] LABORATORYCLIA [id number] [address] RBC (Bld) [#/Vol] 4.40 10*6/uL Normal 3.90-5.20 [facility] Comment on above: Order Comment: Speci men Type: BLOOD SPECIMENOrdering Facility: [facility] Address: [address] [place] [address] Performed By: #### 5 7021-8 ####[facility] LABORATORYCLIA [id number] [address] WBC (Bld) [#/Vol] 7.36 10*3/uL Normal 3.70-11.00 [facility] Comment on above: Order Comment: Speci men Type: BLOOD SPECIMENOrdering Facility: [facility] Address: [address] [place] [address] Performed By: #### 5 7021-8 ####[facility] LABORATORYCLIA [id number] [address] CBC panel Auto (Bld)on 01-02 Erythrocyte distribution width (RBC) [Ratio] 12.1 % Normal 11.5-15.0 [facility] Comment on above: Order Comment: Speci men Type: BLOOD SPECIMENOrdering Facility: [facility] Address: [address] [place] [address] Performed By: #### 5 8410-2 ####[facility] LABORATORYCLIA [id number] [address] [place]#### 63350-7 ####[facility] LABCLIA [id number] [address] [place] Hematocrit (Bld) [Volume fraction] 41.2 % Normal 36.0-46.0 [facility] Comment on above: Order Comment: Speci men Type: BLOOD SPECIMENOrdering Facility: [facility] Address: [address] [place] [address] Performed By: #### 5 8410-2 ####[facility] LABORATORYCLIA [id number] [place] [address] [place]#### 49533-1 ####[facility] LABCLIA [id number] [place] [address] [place] Hemoglobin (Bld) [Mass/Vol] 14.0 g/dL Normal 11.5-15.5 [facility] Comment on above: Order Comment: Speci men Type: BLOOD SPECIMENOrdering Facility: [facility] Address: [address] [place] [address] Performed By: #### 5 8410-2 ####[facility] LABORATORYCLIA [id number] [place] [address] [place]#### 93740-6 ####[facility] LABCLIA [id number] [place] [address] [place] MCH (RBC) [Entitic mass] 32.3 pg Normal 26.0-34.0 [facility] Comment on above: Order Comment: Speci men Type: BLOOD SPECIMENOrdering Facility: [facility] Address: [address] [place] [address] Performed By: #### 5 8410-2 ####[facility] LABORATORYCLIA [id number] [place] [address] [place]#### 48645-9 ####[facility] LABIA [id number] [place] [address] [place] MCHC (RBC) [Mass/Vol] 34.0 g/dL Normal 30.5-36.0 [facility] Comment on above: Order Comment: Speci men Type: BLOOD SPECIMENOrdering Facility: [facility] Address: [address] [place] [address] Performed By: #### 5 8410-2 ####[facility] LABORATORYCLIA [id number] [address] [place]#### 09246-5 ####[facility] LABCLIA [id number] [place] [address] [place] MCV (RBC) [Entitic vol] 94.9 fL Normal 80.0-100.0 [facility] Comment on above: Order Comment: Speci men Type: BLOOD SPECIMENOrdering Facility: [facility] Address: [address] [place] [address] Performed By: #### 5 8410-2 ####[facility] LABORATORYCLIA [id number] [place] [address] [place]#### 55723-1 ####[facility] LABCLIA [id number] [place] [address] [place] Nucleated RBC (Bld) [#/Vol] 10*3/uL Normal <0.01 [facility] Comment on above: Order Comment: Speci men Type: BLOOD SPECIMENOrdering Facility: [facility] Address: [address] [place] [address] Performed By: #### 5 8410-2 ####[facility] LABORATORYCLIA [id number] [address] [place]#### 86481-1 ####[facility] LABCLIA [id number] [place] [address] [place] Platelet mean volume (Bld) [Entitic vol] 10.1 fL Normal 9.0-12.7 [facility] Comment on above: Order Comment: Speci men Type: BLOOD SPECIMENOrdering Facility: [facility] Address: [address] [place] [address] Performed By: #### 5 8410-2 ####[facility] LABORATORYCLIA [id number] [place] [address] [place]#### 76577-1 ####[facility] LABCLIA [id number] [place] [address] [place] Platelets (Bld) [#/Vol] 155 10*3/uL Normal 150-400 [facility] Comment on above: Order Comment: Speci men Type: BLOOD SPECIMENOrdering Facility: [facility] Address: [address] [place] [address] Performed By: #### 5 8410-2 ####[facility] LABORATORYCLIA [id number] [place] [address] [place]#### 61371-0 ####[facility] LABCLIA [id number] [place] [address] [place] RBC (Bld) [#/Vol] 4.34 10*6/uL Normal 3.90-5.20 [facility] Comment on above: Order Comment: Speci men Type: BLOOD SPECIMENOrdering Facility: [facility] Address: [address] [place] [address] Performed By: #### 5 8410-2 ####[facility] LABORATORYCLIA [id number] [place] [address] [place]#### 79478-7 ####[facility] LABCLIA [id number] [place] [address] [place] WBC (Bld) [#/Vol] 9.00 10*3/uL Normal 3.70-11.00 [facility] Comment on above: Order Comment: Speci men Type: BLOOD SPECIMENOrdering Facility: [facility] Address: [address] [place] [address] Performed By: #### 5 8410-2 ####[facility] LABORATORYCLIA [id number] [place] [address] [place]#### 56706-2 ####[facility] LABCLIA [id number] [place] [id number] [place] CK SerPl-cCncon 01-02-2025 CK [Catalytic activity/Vol] 80 U/L Normal 28-152 [facility] Comment on above: Order Comment: Speci men Type: BLOOD SPECIMENOrdering Facility: [facility] Address: [address] [place] [address] Performed By: #### 2 157-6 ####[facility] LABORATORYCLIA [id number] [place] [id number] [place] CONSULT PROGon 01-02-2025 CONSULT PROG Normal [facility] COPPER BLOODon 01-02-2025 Copper [Mass/Vol] 108 ug/dL Normal 80-155 [facility] Comment on above: Order Comment: Speci men Type: BLOOD SPECIMENOrdering Facility: [facility] Address: [address] [place] [address] Result Comment: This test was developed, and its performance characteristics determined by the [facility] Department of Pathology and Laboratory Medicine. It has not been cleared or approved by the FDA. The [facility] Department of Pathology and Laboratory Medicine is regulated under CLIA as qualified to perform high-complexity testing. This test is used for clinical purposes. It should not be regarded as investigational or for research. Performed By: #### C OPPER ####[facility] LABCLIA [id number] [place] [id number] [place] CRP SerPl-mCncon 01-02-2025 CRP [Mass/Vol] 4.2 mg/dL High <1.0 [facility] Comment on above: Order Comment: Speci men Type: BLOOD SPECIMENOrdering Facility: [facility] Address: [address] [place] [address] Performed By: #### 2 4323-8, 1987-11 ####[facility] LABORATORYCLIA [id number] [place] [id number] [place] CSF MANUAL DIFFon 01-02-2025 DIF TTL, CSF Normal [facility] Comment on above: Order Comment: Speci men Type: CEREBROSPINAL FLUID SPECIMENOrdering Facility: [facility] Address: [address] [place] [address] Performed By: #### 3 4563-7, [id number], CCCSFR ####[facility] LABORATORYCLIA [id number] [place] [address] [place] LYMPH%, CSF Normal [facility] Comment on above: Order Comment: Speci men Type: CEREBROSPINAL FLUID SPECIMENOrdering Facility: [facility] Address: [address] [place] [address] Result Comment: Manu al differential not performed; less than 6 WBCs reported. Performed By: #### 3 4563-7, [id number], CCCSFR ####[facility] LABORATORYCLIA [id number] [place] [address] [place] MONO%, CSF Normal [facility] Comment on above: Order Comment: Speci men Type: CEREBROSPINAL FLUID SPECIMENOrdering Facility: [facility] Address: [address] [place] [address] Result Comment: Manu al differential not performed; less than 6 WBCs reported. Performed By: #### 3 4563-7, [id number], CCCSFR ####[facility] LABORATORYCLIA [id number] [place] [address] [place] NEUT%, CSF Normal [facility] Comment on above: Order Comment: Speci men Type: CEREBROSPINAL FLUID SPECIMENOrdering Facility: [facility] Address: [address] [place] [address] Result Comment: Manu al differential not performed; less than 6 WBCs reported. Performed By: #### 3 4563-7, [id number], CCCSFR ####[facility] LABORATORYCLIA [id number] [address] [place] CSF PATHOLOGIST INTERPRETATI ONon 01-02-2025 CSF STAFF REVIEW No pathologic abnorm alities. Very rare lymphocytes present. Normal [facility] Comment on above: Order Comment: Speci men Type: CEREBROSPINAL FLUID SPECIMENOrdering Facility: [facility] Address: [address] [place] [address] Performed By: #### 3 4563-7, [id number], CCCSFR ####[facility] LABORATORYCLIA [id number] [place] [id number] [facility] [place] Pathologist name Reviewed by Romana Mesa MD [facility] Comment on above: Order Comment: Speci men Type: CEREBROSPINAL FLUID SPECIMENOrdering Facility: [facility] Address: [address] [place] [address] Performed By: #### 3 4563-7, [id number], CCCSFR ####[facility] LABORATORYCLIA [id number] [place] [id number] [place] CYTOLOGY NON-GYNon AP DISCLAIMER [facility] Comment on above: Order Comment: Speci men Type: CEREBROSPINAL FLUID SPECIMENOrdering Facility: [facility] Address: [address] [place] [address] Result Comment: Felicia casillas Developed Test (LDT) Disclaimer:Performance characteristics of immunohistochemical, immunofluorescent, and chromogenic in-situ hybridization tests have been determined by the performing laboratory within [facility] Pathology and Laboratory Medicine Department ([facility], [facility], [facility], [facility], [facility], [facility], or [facility]) in a manner consistent with CLIA requirements. One or more of these tests may not have been cleared or approved by the FDA. [facility] is regulated under CLIA as qualified to perform high-complexity testing. These tests are used for clinical purposes. These should not be regarded as investigational or for research. Positive and negative controls stain appropriately. Performed By: #### C YTONON ####[facility] LABORATORYCLIA [id number] [place] [id number] [place] CASE REPORT [facility] Comment on above: Order Comment: Speci men Type: CEREBROSPINAL FLUID SPECIMENOrdering Facility: [facility] Address: [address] [place] [address] Result Comment: [facility] Cytology Report Case: [id number] Provider: Diana Patton APRN.CASE MANAGEMENT ASSISTANT Collected: 01/02/2025 02:31 PMOrdering Location: [facility] Received: 01/03/2025 08:23 AMPathologist: Romana Mesa MDSpecimen: CSF, Lumbar Puncture Performed By: #### C YTONON ####[facility] LABORATORYCLIA [id number] [address] CLINICAL HISTORY Normal [facility] Comment on above: Order Comment: Speci men Type: CEREBROSPINAL FLUID SPECIMENOrdering Facility: [facility] Address: [address] [place] [address] Result Comment: Pre- op diagnosis:Altered mental status, unspecified altered mental status type [R41.82] Performed By: #### C YTONON ####[facility] LABORATORYCLIA [id number] [address] DIAGNOSIS COMMENT Hypocellular specime n, rare lymphocytes are present. Normal [facility] Comment on above: Order Comment: Speci men Type: CEREBROSPINAL FLUID SPECIMENOrdering Facility: [facility] Address: [address] [place] [address] Performed By: #### C YTONON ####[facility] LABORATORYCLIA [id number] [address] FINAL DIAGNOSIS Normal [facility] Comment on above: Order Comment: Speci men Type: CEREBROSPINAL FLUID SPECIMENOrdering Facility: [facility] Address: [address] [place] [address] Result Comment: A - CSF, Lumbar Puncture: - Negative for malignant cells. at 1151 EDT Performed By: #### C YTONON ####[facility] LABORATORYCLIA [id number] [address] FINAL PERFORMING LAB Normal [facility] Comment on above: Order Comment: Speci men Type: CEREBROSPINAL FLUID SPECIMENOrdering Facility: [facility] Address: [address] [place] [address] Result Comment: Tech nical component, enamel drier screening performed at: [facility], [address] [place] [address] CLIA: [id number] interpretation performed at: [facility], [address] [place] [address] CLIA# [id number] Director: Romana Mesa MD Performed By: #### C YTONON ####[facility] LABORATORYCLIA [id number] [address] GROSS DESCRIPTION Normal [facility] Comment on above: Order Comment: Speci men Type: CEREBROSPINAL FLUID SPECIMENOrdering Facility: [facility] Address: [address] [place] [address] Result Comment: A. C SF, Lumbar Puncture2 cc clear colorless fluid with scant particles. 2 Cytospin prepared. Performed By: #### C YTONON ####[facility] LABORATORYCLIA [id number] [address] ORDER COMMENT Normal [facility] Comment on above: Order Comment: Speci men Type: CEREBROSPINAL FLUID SPECIMENOrdering Facility: [facility] Address: [address] [place] [address] Result Comment: Pre- op diagnosis:Altered mental status, unspecified altered mental status type [R41.82] Performed By: #### C YTONON ####[facility] LABORATORYCLIA [id number] [address] Cell count panel (CSF)on Clarity (CSF) Clear Normal Clear [facility] Comment on above: Order Comment: Speci men Type: CEREBROSPINAL FLUID SPECIMENOrdering Facility: [facility] Address: [address] [place] [address] Performed By: #### 3 4563-7, [id number], CCCSFR ####[facility] LABORATORYCLIA [id number] [address] Clarity (Unsp spec) Not Indicated Normal Clear [facility] Comment on above: Order Comment: Speci men Type: CEREBROSPINAL FLUID SPECIMENOrdering Facility: [facility] Address: [address] [place] [address] Performed By: #### 3 4563-7, [id number], CCCSFR ####[facility] LABORATORYCLIA [id number] [address] Color (CSF) Colorless Normal Colorless [facility] Comment on above: Order Comment: Speci men Type: CEREBROSPINAL FLUID SPECIMENOrdering Facility: [facility] Address: [address] [place], [place] [address] Performed By: #### 3 4563-7, [id number], CCCSFR ####[facility] LABORATORYCLIA [id number] [address] OF [facility] Color (Spun CSF) Not Indicated Normal Colorless [facility] Comment on above: Order Comment: Speci men Type: CEREBROSPINAL FLUID SPECIMENOrdering Facility: [facility] Address: [address] [place] [address] Performed By: #### 3 4563-7, [id number], CCCSFR ####[facility] LABORATORYCLIA [id number] [address] CSF TUBE NUMBER Tube 4 Normal [facility] Comment on above: Order Comment: Speci men Type: CEREBROSPINAL FLUID SPECIMENOrdering Facility: [facility] Address: [address] [place], [place] [address] Performed By: #### 3 4563-7, [id number], CCCSFR ####[facility] LABORATORYCLIA [id number] [address] OF [facility] RBC Manual cnt (CSF) [#/Vol] 0 cells/uL Normal 0-[address] [place] [address] Comment on above: Order Comment: Speci men Type: CEREBROSPINAL FLUID SPECIMENOrdering Facility: [facility] Address: [address] [place] [id number] Performed By: #### 3 4563-7, [id number], CCCSFR ####[facility] LABORATORYCLIA [id number] [address] WBC Manual cnt (CSF) [#/Vol] 1 cells/uL Normal 0-5 [facility] Comment on above: Order Comment: Speci men Type: CEREBROSPINAL FLUID SPECIMENOrdering Facility: [facility] Address: [address] [place] [address] Performed By: #### 3 4563-7, [id number], CARRIER CLINICSFR ####[facility] LABORATORYCLIA [id number] [place] [id number] [place] Ceruloplasmin SerPl-mCncon 0 01-02-2025 Ceruloplasmin [Mass/Vol] 27 mg/dL Normal 16-45 [facility] Comment on above: Order Comment: Speci men Type: BLOOD SPECIMENOrdering Facility: [facility] Address: [address] [place] [address] Performed By: #### 2 064-4 ####[facility] LABCLIA [id number] [address] OF [facility] Comprehensive metabolic 2000 panelon 01-02-2025 Albumin [Mass/Vol] 2.6 g/dL Low 3.2-5.0 [facility] Comment on above: Order Comment: Speci men Type: BLOOD SPECIMENOrdering Facility: [facility] Address: [address] [place] [address] Performed By: #### 2 4323-8 ####[facility] LABORATORYCLIA [id number] [place] [address] [place] ALP [Catalytic activity/Vol] 54 U/L Normal 45-117 [facility] Comment on above: Order Comment: Speci men Type: BLOOD SPECIMENOrdering Facility: [facility] Address: [address] [place] [address] Performed By: #### 2 4323-8 ####[facility] LABORATORYCLIA [id number] [place] [address] [place] ALT [Catalytic activity/Vol] 12 U/L Low 13-61 [facility] Comment on above: Order Comment: Speci men Type: BLOOD SPECIMENOrdering Facility: [facility] Address: [address] [place] [address] Result Comment: Resu lts may be falsely depressed after the administration of Sulfasalazine and/or Sulfapyridine. Performed By: #### 2 4323-8 ####[facility] LABORATORYCLIA [id number] [place] [id number] [place] Anion gap [Moles/Vol] 6 mmol/L Normal 5-16 [facility] Comment on above: Order Comment: Speci men Type: BLOOD SPECIMENOrdering Facility: [facility] Address: [address] [place] [address] Performed By: #### 2 4323-8 ####[facility] LABORATORYCLIA [id number] [place] [address] [place] AST [Catalytic activity/Vol] 16 U/L Normal 8-34 [facility] Comment on above: Order Comment: Speci men Type: BLOOD SPECIMENOrdering Facility: [facility] Address: [address] [place] [address] Result Comment: Resu lts may be falsely depressed after the administration of Sulfasalazine and/or Sulfapyridine. Performed By: #### 2 4323-8 ####[facility] LABORATORYCLIA [id number] [place] [address] [place] Bilirubin [Mass/Vol] 0.4 mg/dL Normal 0.2-1.0 [facility] Comment on above: Order Comment: Speci men Type: BLOOD SPECIMENOrdering Facility: [facility] Address: [address] [place] [address] Performed By: #### 2 4323-8 ####[facility] LABORATORYCLIA [id number] [place] [id number] [place] Calcium [Mass/Vol] 8.8 mg/dL Normal 8.5-10.5 [facility] Comment on above: Order Comment: Speci men Type: BLOOD SPECIMENOrdering Facility: [facility] Address: [address] [place] [address] Performed By: #### 2 4323-8 ####[facility] LABORATORYCLIA [id number] [place] [id number] [place] Chloride [Moles/Vol] 104 mmol/L Normal 98-107 [facility] Comment on above: Order Comment: Speci men Type: BLOOD SPECIMENOrdering Facility: [facility] Address: [address] [place] [address] Performed By: #### 2 4323-8 ####[facility] LABORATORYCLIA [id number] [place] [id number] [place] CO2 [Moles/Vol] 25 mmol/L Normal 21-32 [facility] Comment on above: Order Comment: Speci men Type: BLOOD SPECIMENOrdering Facility: [facility] Address: [address] [place] [address] Performed By: #### 2 4323-8 ####[facility] LABORATORYCLIA [id number] [place] [address] [place] Creatinine [Mass/Vol] 0.48 mg/dL Low 0.51-0.95 [facility] Comment on above: Order Comment: Speci men Type: BLOOD SPECIMENOrdering Facility: [facility] Address: [address] [place] [address] Result Comment: Marilin ents receiving either N-Acetylcysteine (NAC) or Metamizole prior to venipuncture, may have falsely depressed results. Performed By: #### 2 4323-8 ####[facility] LABORATORYCLIA [id number] [place] [address] [facility] [place] Creatinine and Glomerular filtration rate.predicted panel (S/P/Bld) 118 mL/min/1.73m??? Normal >=60 [facility] Comment on above: Order Comment: Speci men Type: BLOOD SPECIMENOrdering Facility: [facility] Address: [address] [place] [address] Result Comment: Chrissy mated Glomerular Filtration Rate (eGFR) is calculated using the 2020 CKD-EPI creatinine equation. This equation utilizes serum creatinine, sex, and age as parameters. The creatinine assay has traceable calibration to isotope dilution-mass spectrometry. Refer to KDIGO guidelines for clinical interpretation. In patients with unstable renal function, e.g. those with acute kidney injury, the eGFR may not accurately reflect actual GFR. Performed By: #### 2 4323-8 ####[facility] LABORATORYCLIA [id number] [place] [id number] [place] Glucose [Mass/Vol] 117 mg/dL High 70-100 [facility] Comment on above: Order Comment: Speci men Type: BLOOD SPECIMENOrdering Facility: [facility] Address: [address] [place], [place] [address] Result Comment: The [place] Diabetes Association (ADA) provides guidance for cutoff values for fasting glucose and random glucose. The ADA defines fasting as no caloric intake for at least 8 hours. Fasting plasma glucose results between 100 to 125 mg/dL indicate increased risk for diabetes (prediabetes).Fasting plasma glucose results greater than or equal to 126 mg/dL meet the criteria for diagnosis of diabetes. In the absence of unequivocal hyperglycemia, results should be confirmed by repeat testing. In a patient with classic symptoms of hyperglycemia or hyperglycemic crisis, random plasma glucose results greater than or equal to 200 mg/dL meet the criteria for diagnosis of diabetes.Reference: Standards of Medical Care in Diabetes 2016, [place] [employer] Association. Diabetes Care. 2016.39(Suppl 1).Results may be falsely elevated after the administration of Sulfapyridine.Results may be falsely depressed after the administration of Sulfasalazine. Performed By: #### 2 4323-8 ####[facility] LABORATORYCLIA [id number] [place] [id number] [place] Potassium [Moles/Vol] 3.8 mmol/L Normal 3.5-5.1 [facility] Comment on above: Order Comment: Speci men Type: BLOOD SPECIMENOrdering Facility: [facility] Address: [address] [place] [address] Performed By: #### 2 4323-8 ####[facility] LABORATORYCLIA [id number] [place] [id number] [place] Protein [Mass/Vol] 6.0 g/dL Normal 6.0-8.5 [facility] Comment on above: Order Comment: Speci men Type: BLOOD SPECIMENOrdering Facility: [facility] Address: [address] [place] [address] Performed By: #### 2 4323-8 ####[facility] LABORATORYCLIA [id number] [place] [id number] [place] Sodium [Moles/Vol] 135 mmol/L Low 136-145 [facility] Comment on above: Order Comment: Speci men Type: BLOOD SPECIMENOrdering Facility: [facility] Address: [address] [place] [address] Performed By: #### 2 4323-8 ####[facility] LABORATORYCLIA [id number] [place] [id number] [place] Urea nitrogen [Mass/Vol] 8 mg/dL Normal 7-26 [facility] Comment on above: Order Comment: Speci men Type: BLOOD SPECIMENOrdering Facility: [facility] Address: [address] [place] [address] Performed By: #### 2 4323-8 ####[facility] LABORATORYCLIA [id number] [place] [address] [place] Albumin [Mass/Vol] 2.7 g/dL Low 3.2-5.0 [facility] Comment on above: Order Comment: Speci men Type: BLOOD SPECIMENOrdering Facility: [facility] Address: [address] [place] [address] Performed By: #### 2 4323-8, 1987-11 ####[facility] LABORATORYCLIA [id number] [place] [id number] [place] ALP [Catalytic activity/Vol] 55 U/L Normal 45-117 [facility] Comment on above: Order Comment: Speci men Type: BLOOD SPECIMENOrdering Facility: [facility] Address: [address] [place] [address] Performed By: #### 2 4323-8, 1987-11 ####[facility] LABORATORYCLIA [id number] [place] [id number] [place] ALT [Catalytic activity/Vol] 11 U/L Low 13-61 [facility] Comment on above: Order Comment: Speci men Type: BLOOD SPECIMENOrdering Facility: [facility] Address: [address] [place] [address] Result Comment: Resu lts may be falsely depressed after the administration of Sulfasalazine and/or Sulfapyridine. Performed By: #### 2 43238, 1987-11 ####[facility] LABORATORYCLIA [id number] [place] [address] [place] Anion gap [Moles/Vol] 8 mmol/L Normal 5-16 [facility] Comment on above: Order Comment: Speci men Type: BLOOD SPECIMENOrdering Facility: [facility] Address: [address] [place] [address] Performed By: #### 2 4328, 1987-11 ####[facility] LABORATORYCLIA [id number] [place] [address] [place] AST [Catalytic activity/Vol] 18 U/L Normal 8-34 [facility] Comment on above: Order Comment: Speci men Type: BLOOD SPECIMENOrdering Facility: [facility] Address: [address] [place] [address] Result Comment: Resu lts may be falsely depressed after the administration of Sulfasalazine and/or Sulfapyridine. Performed By: #### 2 43238, 1987-11 ####[facility] LABORATORYCLIA [id number] [place] [address] [place] Bilirubin [Mass/Vol] 0.5 mg/dL Normal 0.2-1.0 [facility] Comment on above: Order Comment: Speci men Type: BLOOD SPECIMENOrdering Facility: [facility] Address: [address] [place], [place] [address] Performed By: #### 2 43238, 1987-11 ####[facility] LABORATORYCLIA [id number] [place] [id number] [place] Calcium [Mass/Vol] 9.2 mg/dL Normal 8.5-10.5 [facility] Comment on above: Order Comment: Speci men Type: BLOOD SPECIMENOrdering Facility: [facility] Address: [address] [place] [address] Performed By: #### 2 43238, 1987-11 ####[facility] LABORATORYCLIA [id number] [place] [address] [place] Chloride [Moles/Vol] 105 mmol/L Normal 98-107 [facility] Comment on above: Order Comment: Speci men Type: BLOOD SPECIMENOrdering Facility: [facility] Address: [address] [place] [address] Performed By: #### 2 4328, 1987-11 ####[facility] LABORATORYCLIA [id number] [place] [address] [place] CO2 [Moles/Vol] 24 mmol/L Normal 21-32 [facility] Comment on above: Order Comment: Speci men Type: BLOOD SPECIMENOrdering Facility: [facility] Address: [address] [place] [address] Performed By: #### 2 43238, 1987-11 ####[facility] LABORATORYCLIA [id number] [address] [place] Creatinine [Mass/Vol] 0.45 mg/dL Low 0.51-0.95 [facility] Comment on above: Order Comment: Speci men Type: BLOOD SPECIMENOrdering Facility: [facility] Address: [address] [place] [address] Result Comment: Marilin ents receiving either N-Acetylcysteine (NAC) or Metamizole prior to venipuncture, may have falsely depressed results. Performed By: #### 2 43238, 1987-11 ####[facility] LABORATORYCLIA [id number] [address] [place] Creatinine and Glomerular filtration rate.predicted panel (S/P/Bld) 120 mL/min/1.73m??? Normal >=60 [facility] Comment on above: Order Comment: Speci men Type: BLOOD SPECIMENOrdering Facility: [facility] Address: [address] [place] [address] Result Comment: Chrissy mated Glomerular Filtration Rate (eGFR) is calculated using the 2020 CKD-EPI creatinine equation. This equation utilizes serum creatinine, sex, and age as parameters. The creatinine assay has traceable calibration to isotope dilution-mass spectrometry. Refer to KDIGO guidelines for clinical interpretation. In patients with unstable renal function, e.g. those with acute kidney injury, the eGFR may not accurately reflect actual GFR. Performed By: #### 2 43209-22, 1987-11 ####[facility] LABORATORYCLIA [id number] [place] [address] [place] Glucose [Mass/Vol] 122 mg/dL High 70-100 [facility] Comment on above: Order Comment: Syd ramos Type: BLOOD SPECIMENOrdering Facility: [facility] Address: [address] [place] [address] Result Comment: The [place] Diabetes Association (ADA) provides guidance for cutoff values for fasting glucose and random glucose. The ADA defines fasting as no caloric intake for at least 8 hours. Fasting plasma glucose results between 100 to 125 mg/dL indicate increased risk for diabetes (prediabetes).Fasting plasma glucose results greater than or equal to 126 mg/dL meet the criteria for diagnosis of diabetes. In the absence of unequivocal hyperglycemia, results should be confirmed by repeat testing. In a patient with classic symptoms of hyperglycemia or hyperglycemic crisis, random plasma glucose results greater than or equal to 200 mg/dL meet the criteria for diagnosis of diabetes.Reference: Standards of Medical Care in Diabetes 2016, [place] [employer]. Diabetes Care. 2016.39(Suppl 1).Results may be falsely elevated after the administration of Sulfapyridine.Results may be falsely depressed after the administration of Sulfasalazine. Performed By: #### 2 4323-02, 1987-11 ####[facility] LABORATORYCLIA [id number] [place] [id number] [place] Potassium [Moles/Vol] 3.9 mmol/L Normal 3.5-5.1 [facility] Comment on above: Order Comment: Syd ramos Type: BLOOD SPECIMENOrdering Facility: [facility] Address: [address] [place] [address] Performed By: #### 2 43209-22, 1987-11 ####[facility] LABORATORYCLIA [id number] [place] [id number] [place] Protein [Mass/Vol] 5.9 g/dL Low 6.0-8.5 [facility] Comment on above: Order Comment: Irmai men Type: BLOOD SPECIMENOrdering Facility: [facility] Address: [address] [place] [address] Performed By: #### 2 43238, 1987-11 ####[facility] LABORATORYCLIA [id number] [place] [id number] [place] Sodium [Moles/Vol] 137 mmol/L Normal 136-145 [facility] Comment on above: Order Comment: Irmai richard Type: BLOOD SPECIMENOrdering Facility: [facility] Address: [address] [place] [address] Performed By: #### 2 43209-22, 1987-11 ####[facility] LABORATORYCLIA [id number] [place] [id number] [place] Urea nitrogen [Mass/Vol] 8 mg/dL Normal 7-26 [facility] Comment on above: Order Comment: Speci men Type: BLOOD SPECIMENOrdering Facility: [facility] Address: [address] [place] [address] Performed By: #### 2 4328, 1987-11 ####[facility] LABORATORYCLIA [id number] [place] [id number] [place] Glucose CSF-mCncon 01-02- 5 Glucose (CSF) [Mass/Vol] 88 mg/dL High 40-70 [facility] Comment on above: Order Comment: Speci men Type: CEREBROSPINAL FLUID SPECIMENOrdering Facility: [facility] Address: [address] [place] [address] Result Comment: Lumb ar CSF glucose values of healthy patients are approximately 60% of the plasma values and must always be compared with a concurrently measured plasma value for adequate clinical interpretation.References: 1. Glucose HK (GLUC3) [package insert V 12.0 [place]]. [employer], [place], [place]. November 2015. 2. Christiano HDelvin, Gosia, H. (2015). Chapter 7: Glucose and Lactate. FDelvin Quiros al.(eds.), Cerebrospinal Fluid in Clinical Neurology. [place]: [employer]. Performed By: #### 2 342-4, 2880-3 ####[facility] LABORATORYCLIA [id number] [address] [place] HbA1c (Bld)on 01-02-2025 Average glucose Estimated from glycated hemoglobin (Bld) [Mass/Vol] 80 mg/dL Normal [facility] Comment on above: Order Comment: Syd ramos Type: BLOOD SPECIMENOrdering Facility: [facility] Address: [address] [place] [address] Result Comment: eAG: (Estimated average glucose) is a calculated value from HgbA1c and is patient access representative of the average blood glucose level in the last 2-3 month period. Performed By: #### 5 8410-2 ####[facility]ENTERCLIA [id number] [address]#### [address]-9 ####[facility] LABIA [id number] [address] [place] HbA1c (Bld) [Mass fraction] 4.4 % Normal 4.3-5.6 [facility] Comment on above: Order Comment: Syd ramos Type: BLOOD SPECIMENOrdering Facility: [facility] Address: [address] [place] [address] Result Comment: [place] Diabetes Association guidelines indicate that patients with HgbA1c in the range 5.7-6.4% are at increased risk for development of diabetes, and intervention by lifestyle modification may be beneficial. HgbA1c greater or equal to 6.5% is considered diagnostic of diabetes. Performed By: #### 5 8410-2 ####[facility] LABORATORYCLIA [id number] [address] [place]#### [address]-3 ####[facility] LABIA [id number] [address] [place] Meningitis+Encephalitis path ogens DNA and RNA panel MACIE+non-probe (CSF)on 01-02-2025 C. gattii+neoformans DNA MACIE+non-probe Ql (CSF) Not detected Normal Not detected [facility] Comment on above: Order Comment: Speci men Type: CEREBROSPINAL FLUID SPECIMENOrdering Facility: [facility] Address: [address] [place] [address] Performed By: #### 8 2180-1 ####[facility] LABORATORYCLIA [id number] [address] [place] CMV DNA MACIE+non-probe Ql (CSF) Not detected Normal Not detected [facility] Comment on above: Order Comment: Speci men Type: CEREBROSPINAL FLUID SPECIMENOrdering Facility: [facility] Address: [address] [place] [address] Performed By: #### 8 218-1 ####[facility] LABORATORYCLIA [id number] [address] [place] E. coli K1 DNA MACIE+non-probe Ql (CSF) Not detected Normal Not detected [facility] Comment on above: Order Comment: Speci men Type: CEREBROSPINAL FLUID SPECIMENOrdering Facility: [facility] Address: [address] [place] [address] Performed By: #### 8 2180-1 ####[facility] LABORATORYCLIA [id number] [address] [place] Enterovirus RNA MACIE+non-probe Ql (CSF) Not detected Normal Not detected [facility] Comment on above: Order Comment: Speci men Type: CEREBROSPINAL FLUID SPECIMENOrdering Facility: [facility] Address: [address] [place] [place] [address] Performed By: #### 8 2180-1 ####[facility] LABORATORYCLIA [id number] [address] OF [place] H. influenzae DNA MACIE+non-probe Ql (CSF) Not detected Normal Not detected [facility] Comment on above: Order Comment: Speci men Type: CEREBROSPINAL FLUID SPECIMENOrdering Facility: [facility] Address: [address] [place] [address] Performed By: #### 8 2180-1 ####[facility] LABORATORYCLIA [id number] [place] [address] [place] HHV 6 DNA MACIE+non-probe Ql (CSF) Not detected Normal Not detected [facility] Comment on above: Order Comment: Speci men Type: CEREBROSPINAL FLUID SPECIMENOrdering Facility: [facility] Address: [address] [place] [address] Performed By: #### 8 2180-1 ####[facility] LABORATORYCLIA [id number] [place] [address] [place] HSV 1 DNA MACIE+non-probe Ql (CSF) Not detected Normal Not detected [facility] Comment on above: Order Comment: Speci men Type: CEREBROSPINAL FLUID SPECIMENOrdering Facility: [facility] Address: [address] [place] [address] Performed By: #### 8 2180-1 ####[facility] LABORATORYCLIA [id number] [place] [address] [place] HSV 2 DNA MACIE+non-probe Ql (CSF) Not detected Normal Not detected [facility] Comment on above: Order Comment: Speci men Type: CEREBROSPINAL FLUID SPECIMENOrdering Facility: [facility] Address: [address] [place] [address] Performed By: #### 8 2180-1 ####[facility] LABORATORYCLIA [id number] [place] [address] [place] L. monocytogenes DNA MACIE+non-probe Ql (CSF) Not detected Normal Not detected [facility] Comment on above: Order Comment: Speci men Type: CEREBROSPINAL FLUID SPECIMENOrdering Facility: [facility] Address: [address] [place] [address] Performed By: #### 8 2180-1 ####[facility] LABORATORYCLIA [id number] [place] [address] [place] N. meningitidis DNA MACIE+non-probe Ql (CSF) Not detected Normal Not detected [facility] Comment on above: Order Comment: Speci men Type: CEREBROSPINAL FLUID SPECIMENOrdering Facility: [facility] Address: [address] [place] [address] Performed By: #### 8 2180-1 ####[facility] LABORATORYCLIA [id number] [address] [place] Parechovirus A RNA MACIE+non-probe Ql (CSF) Not detected Normal Not detected [facility] Comment on above: Order Comment: Speci men Type: CEREBROSPINAL FLUID SPECIMENOrdering Facility: [facility] Address: [address] [place] [address] Performed By: #### 8 2180-1 ####[facility] LABORATORYCLIA [id number] [address] [place] S. agalactiae DNA MACIE+non-probe Ql (CSF) Not detected Normal Not detected [facility] Comment on above: Order Comment: Speci men Type: CEREBROSPINAL FLUID SPECIMENOrdering Facility: [facility] Address: [address] [place] [address] Performed By: #### 8 2180-1 ####[facility] LABORATORYCLIA [id number] [address] [place] S. pneumoniae DNA MACIE+non-probe Ql (CSF) Not detected Normal Not detected [facility] Comment on above: Order Comment: Speci men Type: CEREBROSPINAL FLUID SPECIMENOrdering Facility: [facility] Address: [address] [place] [address] Performed By: #### 8 2180-1 ####[facility] LABORATORYCLIA [id number] [place] [address] [place] VZV DNA MACIE+non-probe Ql (CSF) Not detected Normal Not detected [facility] Comment on above: Order Comment: Speci men Type: CEREBROSPINAL FLUID SPECIMENOrdering Facility: [facility] Address: [address] [place] [address] Performed By: #### 8 2180-1 ####[facility] LABORATORYCLIA [id number] [place] [address] [place] NURSING PROGon 01-02-2025 NURSING PROG Normal [facility] PT panel Coag (PPP)on 2024 INR Coag (PPP) [Relative time] 1.1 {INR} Normal 0.9-1.3 [facility] Comment on above: Order Comment: Syd ramos Type: BLOOD SPECIMENOrdering Facility: [facility] Address: [address] [place] [address] Result Comment: Leyda min K Antagonist (VKA) Therapeutic Range: INR 2 to 3 (Target INR of 2.5)Note: For patients treated with VKA drugs, such as warfarin, the [place] [employer] 2012 Guideline recommends a therapeutic INR range of 2 to 3 (target INR of 2.5). This recommendation includes high-risk patients with antiphospholipid syndrome with previous arterial or venous thromboembolism, current-generation mechanical or bioprosthetic aortic heart valve replacement.Note: Patients with mechanical aortic valve replacement and additional risk factors for thromboembolic events (atrial fibrillation, previous thromboembolism, LV dysfunction, hypercoagulable conditions) or an older generation mechanical AVR (i.e., ball in-Cage) or any mechanical MVR should have a INR therapeutic range of 2.5 to 3.5 (target INR of 3).James PATEL, et al. Chest 2012, 141:7S-47SNishimshannen RA, et al. [facility] 2017, 70: 252-289 Performed By: #### 3 4528-0, 80234-6 ####[facility] LABORATORYCLIA [id number] [place] [address] [place] PT Coag (PPP) [Time] 12.1 s Normal 9.7-13.0 [facility] Comment on above: Order Comment: Syd ramos Type: BLOOD SPECIMENOrdering Facility: [facility] Address: [address] [place] [address] Performed By: #### 3 4528-0, 84273-1 ####[facility] LABORATORYCLIA [id number] [place] [address] [place] Prot CSF-mCncon 01-02-2025 Protein (CSF) [Mass/Vol] 21 mg/dL Normal 15-45 [facility] Comment on above: Order Comment: Syd ramos Type: CEREBROSPINAL FLUID SPECIMENOrdering Facility: [facility] Address: [address] [place] [address] Result Comment: Samp les containing Amikacin, Gentamicin, Kanamycin, Tobramycin, and Neomycin Sulfate may cause falsely increased [employer] UCFP assay results. Performed By: #### 2 342-4, 2880-3 ####[facility] LABORATORYCLIA [id number] [place] [id number] [place] VITAMIN B1 (THIAMINE), WHOLE BLOODon 01-02-2025 Thiamine (Bld) [Moles/Vol] 249.3 nmol/L High 84.3-213.3 [facility] Comment on above: Order Comment: Speci men Type: BLOOD SPECIMENOrdering Facility: [facility] Address: [address] [place] [address] Result Comment: This assay measures the concentration of thiamine diphosphate (TDP), the primary active form of vitamin B1. Approximately 90 percent of vitamin B1 present in whole blood is TDP. Thiamine and thiamine monophosphate, which comprise the remaining 10 percent, are not measured.This test was developed, and its performance characteristics determined by the [facility] Department of Pathology and Laboratory Medicine. It has not been cleared or approved by the FDA. The [facility] Department of Pathology and Laboratory Medicine is regulated under CLIA as qualified to perform high-complexity testing. This test is used for clinical purposes. It should not be regarded as investigational or for research. Performed By: #### B 1WB ####[facility] LABCLIA [id number] [place] [id number] [place] XR LUMBAR PUNCTURE DIAGNOSTI Con 01-02-2025 XR LUMBAR PUNCTURE DIAGNOSTIC Normal [facility] aPTT PPPon 01-02-2025 aPTT Coag (PPP) [Time] 32.1 s Normal 23.0-32.4 [facility] Comment on above: Order Comment: Speci men Type: BLOOD SPECIMENOrdering Facility: [facility] Address: [address] [place] [address] Performed By: #### 3 4528-0, 94546-7 ####[facility] LABORATORYCLIA [id number] [place] [id number] [place] ANES POSTPROC EVALon 025 ANES POSTPROC EVAL Normal [facility] ANES PRE-OPon 01-01-2025 ANES PRE-OP Normal [facility] CBC panel Auto (Bld)on 01-01 Erythrocyte distribution width (RBC) [Ratio] 12.2 % Normal 11.5-15.0 [facility] Comment on above: Order Comment: Speci men Type: BLOOD SPECIMENOrdering Facility: [facility] Address: [address] [place] [address] Performed By: #### 5 8410-2 ####[facility] LABORATORYCLIA [id number] [address] [place] Hematocrit (Bld) [Volume fraction] 40.1 % Normal 36.0-46.0 [facility] Comment on above: Order Comment: Speci men Type: BLOOD SPECIMENOrdering Facility: [facility] Address: [address] [place] [address] Performed By: #### 5 8410-2 ####[facility] LABORATORYCLIA [id number] [address] [place] Hemoglobin (Bld) [Mass/Vol] 13.6 g/dL Normal 11.5-15.5 [facility] Comment on above: Order Comment: Speci men Type: BLOOD SPECIMENOrdering Facility: [facility] Address: [address] [place] [address] Performed By: #### 5 8410-2 ####[facility] LABORATORYCLIA [id number] [place] [address] [place] MCH (RBC) [Entitic mass] 32.0 pg Normal 26.0-34.0 [facility] Comment on above: Order Comment: Speci men Type: BLOOD SPECIMENOrdering Facility: [facility] Address: [address] [place] [address] Performed By: #### 5 8410-2 ####[facility] LABORATORYCLIA [id number] [place] [address] [place] MCHC (RBC) [Mass/Vol] 33.9 g/dL Normal 30.5-36.0 [facility] Comment on above: Order Comment: Speci men Type: BLOOD SPECIMENOrdering Facility: [facility] Address: [address] [place] [address] Performed By: #### 5 8410-2 ####[facility] LABORATORYCLIA [id number] [place] [address] [place] MCV (RBC) [Entitic vol] 94.4 fL Normal 80.0-100.0 [facility] Comment on above: Order Comment: Speci men Type: BLOOD SPECIMENOrdering Facility: [facility] Address: [address] [place] [place] [address] Performed By: #### 5 8410-2 ####[facility] LABORATORYCLIA [id number] [place] [address] [place] Nucleated RBC (Bld) [#/Vol] 10*3/uL Normal <0.01 [facility] Comment on above: Order Comment: Speci men Type: BLOOD SPECIMENOrdering Facility: [facility] Address: [address] [place] [address] Performed By: #### 5 8410-2 ####[facility] LABORATORYCLIA [id number] [place] [address] [place] Platelet mean volume (Bld) [Entitic vol] 10.2 fL Normal 9.0-12.7 [facility] Comment on above: Order Comment: Speci men Type: BLOOD SPECIMENOrdering Facility: [facility] Address: [address] [place] [address] Performed By: #### 5 8410-2 ####[facility] LABORATORYCLIA [id number] [place] [address] [place] Platelets (Bld) [#/Vol] 161 10*3/uL Normal 150-400 [facility] Comment on above: Order Comment: Speci men Type: BLOOD SPECIMENOrdering Facility: [facility] Address: [address] [place] [address] Performed By: #### 5 8410-2 ####[facility] LABORATORYCLIA [id number] [address] OF [facility] RBC (Bld) [#/Vol] 4.25 10*6/uL Normal 3.90-5.20 [facility] Comment on above: Order Comment: Speci men Type: BLOOD SPECIMENOrdering Facility: [facility] Address: [address] [place] [address] Performed By: #### 5 8410-2 ####[facility] LABORATORYCLIA [id number] [address] WBC (Bld) [#/Vol] 7.44 10*3/uL Normal 3.70-11.00 [facility] Comment on above: Order Comment: Speci men Type: BLOOD SPECIMENOrdering Facility: [facility] Address: [address] [place] [address] Performed By: #### 5 8410-2 ####[facility] LABORATORYCLIA [id number] [address] Comprehensive metabolic 2000 panelon 01-01-2025 Albumin [Mass/Vol] 2.7 g/dL Low 3.2-5.0 [facility] Comment on above: Order Comment: Speci men Type: BLOOD SPECIMENOrdering Facility: [facility] Address: [address] [place] [address] Performed By: #### 2 4323-8 ####[facility] LABORATORYCLIA [id number] [address] ALP [Catalytic activity/Vol] 54 U/L Normal 45-117 [facility] Comment on above: Order Comment: Speci men Type: BLOOD SPECIMENOrdering Facility: [facility] Address: [address] [place] [address] Performed By: #### 2 4323-8 ####[facility] LABORATORYCLIA [id number] [address] ALT [Catalytic activity/Vol] 12 U/L Low 13-61 [facility] Comment on above: Order Comment: Speci men Type: BLOOD SPECIMENOrdering Facility: [facility] Address: [address] [place] [address] Result Comment: Resu lts may be falsely depressed after the administration of Sulfasalazine and/or Sulfapyridine. Performed By: #### 2 4323-8 ####[facility] LABORATORYCLIA [id number] [place] [id number] [place] Anion gap [Moles/Vol] 9 mmol/L Normal 5-16 [facility] Comment on above: Order Comment: Speci men Type: BLOOD SPECIMENOrdering Facility: [facility] Address: [address] [place] [address] Performed By: #### 2 4323-8 ####[facility] LABORATORYCLIA [id number] [place] [id number] [place] AST [Catalytic activity/Vol] 19 U/L Normal 8-34 [facility] Comment on above: Order Comment: Speci men Type: BLOOD SPECIMENOrdering Facility: [facility] Address: [address] [place] [address] Result Comment: Resu lts may be falsely depressed after the administration of Sulfasalazine and/or Sulfapyridine. Performed By: #### 2 4323-8 ####[facility] LABORATORYCLIA [id number] [place] [address] [place] Bilirubin [Mass/Vol] 0.6 mg/dL Normal 0.2-1.0 [facility] Comment on above: Order Comment: Speci men Type: BLOOD SPECIMENOrdering Facility: [facility] Address: [address] [place] [address] Performed By: #### 2 4323-8 ####[facility] LABORATORYCLIA [id number] [place] [id number] [place] Calcium [Mass/Vol] 8.8 mg/dL Normal 8.5-10.5 [facility] Comment on above: Order Comment: Speci men Type: BLOOD SPECIMENOrdering Facility: [facility] Address: [address] [place] [address] Performed By: #### 2 4323-8 ####[facility] LABORATORYCLIA [id number] [place] [address] [place] Chloride [Moles/Vol] 106 mmol/L Normal 98-107 [facility] Comment on above: Order Comment: Speci men Type: BLOOD SPECIMENOrdering Facility: [facility] Address: [address] [place] [place] [address] Performed By: #### 2 4323-8 ####[facility] LABORATORYCLIA [id number] [place] [address] [place] CO2 [Moles/Vol] 22 mmol/L Normal 21-32 [facility] Comment on above: Order Comment: Speci men Type: BLOOD SPECIMENOrdering Facility: [facility] Address: [address] [place] [address] Performed By: #### 2 4323-8 ####[facility] LABORATORYCLIA [id number] [place] [address] [place] Creatinine [Mass/Vol] 0.47 mg/dL Low 0.51-0.95 [facility] Comment on above: Order Comment: Speci men Type: BLOOD SPECIMENOrdering Facility: [facility] Address: [address] [place] [address] Result Comment: Marilin ents receiving either N-Acetylcysteine (NAC) or Metamizole prior to venipuncture, may have falsely depressed results. Performed By: #### 2 4323-8 ####[facility] LABORATORYCLIA [id number] [address] OF [facility] Creatinine and Glomerular filtration rate.predicted panel (S/P/Bld) 118 mL/min/1.73m??? Normal >=60 [facility] Comment on above: Order Comment: Speci men Type: BLOOD SPECIMENOrdering Facility: [facility] Address: [address] [place] [address] Result Comment: Chrissy mated Glomerular Filtration Rate (eGFR) is calculated using the 2020 CKD-EPI creatinine equation. This equation utilizes serum creatinine, sex, and age as parameters. The creatinine assay has traceable calibration to isotope dilution-mass spectrometry. Refer to KDIGO guidelines for clinical interpretation. In patients with unstable renal function, e.g. those with acute kidney injury, the eGFR may not accurately reflect actual GFR. Performed By: #### 2 4323-8 ####[facility] LABORATORYCLIA [id number] [place] [id number] [place] Glucose [Mass/Vol] 73 mg/dL Normal 70-100 [facility] Comment on above: Order Comment: Syd ramos Type: BLOOD SPECIMENOrdering Facility: [facility] Address: [address] [place] [address] Result Comment: The [place] [employer] (ADA) provides guidance for cutoff values for fasting glucose and random glucose. The ADA defines fasting as no caloric intake for at least 8 hours. Fasting plasma glucose results between 100 to 125 mg/dL indicate increased risk for diabetes (prediabetes).Fasting plasma glucose results greater than or equal to 126 mg/dL meet the criteria for diagnosis of diabetes. In the absence of unequivocal hyperglycemia, results should be confirmed by repeat testing. In a patient with classic symptoms of hyperglycemia or hyperglycemic crisis, random plasma glucose results greater than or equal to 200 mg/dL meet the criteria for diagnosis of diabetes.Reference: Standards of Medical Care in Diabetes 2016, [place] [employer]. Diabetes Care. 2016.39(Suppl 1).Results may be falsely elevated after the administration of Sulfapyridine.Results may be falsely depressed after the administration of Sulfasalazine. Performed By: #### 2 4323-8 ####[facility] LABORATORYCLIA [id number] [place] [id number] [place] Potassium [Moles/Vol] 4.0 mmol/L Normal 3.5-5.1 [facility] Comment on above: Order Comment: Syd ramos Type: BLOOD SPECIMENOrdering Facility: [facility] Address: [address] [place] [id number] Performed By: #### 2 4323-8 ####[facility] LABORATORYCLIA [id number] [place] [id number] [place] Protein [Mass/Vol] 5.9 g/dL Low 6.0-8.5 [facility] Comment on above: Order Comment: Speci men Type: BLOOD SPECIMENOrdering Facility: [facility] Address: [address] [place] [address] Performed By: #### 2 4323-8 ####[facility] LABORATORYCLIA [id number] [place] [id number] [place] Sodium [Moles/Vol] 137 mmol/L Normal 136-145 [facility] Comment on above: Order Comment: Speci men Type: BLOOD SPECIMENOrdering Facility: [facility] Address: [address] [place] [address] Performed By: #### 2 4323-8 ####[facility] LABORATORYCLIA [id number] [place] [id number] [place] Urea nitrogen [Mass/Vol] mg/dL Low 7-26 [facility] Comment on above: Order Comment: Speci men Type: BLOOD SPECIMENOrdering Facility: [facility] Address: [address] [place] [address] Performed By: #### 2 4323-8 ####[facility] LABORATORYCLIA [id number] [place] [id number] [place] HCG Preg Ur Qlon 01-01-2025 HCG ( test) Ql (U) Negative Normal Negative [facility] Comment on above: Order Comment: Speci men Type: URINE SPECIMENOrdering Facility: [facility] Address: [address] [place] [address] Result Comment: This test is intended to aid in the early detection of . Very dilute urine samples, as indicated by a low specific gravity, may not contain patient access representative levels of hCG. This test detects intact hCG only. This test does not reliably detect hCG degradation products, including free-beta subunit and beta-core fragment. Therefore, this test may show reduced reactivity in urine after 8 weeks gestation. A number of conditions other than , including trophoblastic disease and certain non-trophoblastic neoplasms cause elevated levels of hCG. As with any assay employing mouse antibodies, the possibility exists for interference by human anti-mouse antibodies (HAMA) in the specimen. The test provides a presumptive diagnosis for . Performed By: #### 2 106-3 ####[facility] LABORATORYCLIA [id number] [place] [address] [place] MRI BRAIN WO/W IVCONon 01-01 MRI BRAIN WO/W IVCON Normal [facility] NUTRITIONon 01-01-2025 NUTRITION Normal [facility] THERAPY NTon 01-01-2025 THERAPY NT Normal [facility] THERAPY NT Normal [facility] THERAPY NT Normal [facility] Basic metabolic 2000 panelon 12-31-2024 Anion gap [Moles/Vol] 9 mmol/L Normal 5-16 [facility] Comment on above: Order Comment: Speci men Type: BLOOD SPECIMENOrdering Facility: [facility] Address: [address] [place] [address] Performed By: #### 2 432-2, 2142-12 ####[facility] LABORATORYCLIA [id number] [place] [id number] [place] Calcium [Mass/Vol] 9.0 mg/dL Normal 8.5-10.5 [facility] Comment on above: Order Comment: Speci men Type: BLOOD SPECIMENOrdering Facility: [facility] Address: [address] [place] [id number] Performed By: #### 2 4321-2, 2142-12 ####[facility] LABORATORYCLIA [id number] [place] [id number] [place] Chloride [Moles/Vol] 108 mmol/L High 98-107 [facility] Comment on above: Order Comment: Speci men Type: BLOOD SPECIMENOrdering Facility: [facility] Address: [address] [place] [address] Performed By: #### 2 4321-2, 2142-12 ####[facility] LABORATORYCLIA [id number] [place] [id number] [place] CO2 [Moles/Vol] 23 mmol/L Normal 21-32 [facility] Comment on above: Order Comment: Speci men Type: BLOOD SPECIMENOrdering Facility: [facility] Address: [address] [place] [address] Performed By: #### 2 432-2, 2142-12 ####[facility] LABORATORYCLIA [id number] [place] [id number] [place] Creatinine [Mass/Vol] 0.56 mg/dL Normal 0.51-0.95 [facility] Comment on above: Order Comment: Syd ramos Type: BLOOD SPECIMENOrdering Facility: [facility] Address: [address] [place] [address] Result Comment: Marilin ents receiving either N-Acetylcysteine (NAC) or Metamizole prior to venipuncture, may have falsely depressed results. Performed By: #### 2 432-, 2142-12 ####[facility] LABORATORYCLIA [id number] [place] [id number] [facility] Creatinine and Glomerular filtration rate.predicted panel (S/P/Bld) 113 mL/min/1.73m??? Normal >=60 [facility] Comment on above: Order Comment: Syd ramos Type: BLOOD SPECIMENOrdering Facility: [facility] Address: [address] [place] [address] Result Comment: Chrissy mated Glomerular Filtration Rate (eGFR) is calculated using the 2020 CKD-EPI creatinine equation. This equation utilizes serum creatinine, sex, and age as parameters. The creatinine assay has traceable calibration to isotope dilution-mass spectrometry. Refer to KDIGO guidelines for clinical interpretation. In patients with unstable renal function, e.g. those with acute kidney injury, the eGFR may not accurately reflect actual GFR. Performed By: #### 2 432-, 2142-12 ####[facility] LABORATORYCLIA [id number] [place] [id number] [place] Glucose [Mass/Vol] 68 mg/dL Low 70-100 [facility] Comment on above: Order Comment: Syd ramos Type: BLOOD SPECIMENOrdering Facility: [facility] Address: [address] [place] [address] Result Comment: The [place] Diabetes [employer] (ADA) provides guidance for cutoff values for fasting glucose and random glucose. The ADA defines fasting as no caloric intake for at least 8 hours. Fasting plasma glucose results between 100 to 125 mg/dL indicate increased risk for diabetes (prediabetes).Fasting plasma glucose results greater than or equal to 126 mg/dL meet the criteria for diagnosis of diabetes. In the absence of unequivocal hyperglycemia, results should be confirmed by repeat testing. In a patient with classic symptoms of hyperglycemia or hyperglycemic crisis, random plasma glucose results greater than or equal to 200 mg/dL meet the criteria for diagnosis of diabetes.Reference: Standards of Medical Care in Diabetes 2016, [place] [employer]. Diabetes Care. 2016.39(Suppl 1).Results may be falsely elevated after the administration of Sulfapyridine.Results may be falsely depressed after the administration of Sulfasalazine. Performed By: #### 2 4320-08, 2142-12 ####[facility] LABORATORYCLIA [id number] [place] [address] [place] Potassium [Moles/Vol] 3.8 mmol/L Normal 3.5-5.1 [facility] Comment on above: Order Comment: Syd ramos Type: BLOOD SPECIMENOrdering Facility: [facility] Address: [address] [place] [address] Performed By: #### 2 4320-08, 2142-12 ####[facility] LABORATORYCLIA [id number] [address] STATES OF [facility] Sodium [Moles/Vol] 140 mmol/L Normal 136-145 [facility] Comment on above: Order Comment: Syd ramos Type: BLOOD SPECIMENOrdering Facility: [facility] Address: [address] [place] [address] Performed By: #### 2 4320-08, 2142-12 ####[facility] LABORATORYCLIA [id number] [place] [address] [place] Urea nitrogen [Mass/Vol] 12 mg/dL Normal 7-26 [facility] Comment on above: Order Comment: Irmai richard Type: BLOOD SPECIMENOrdering Facility: [facility] Address: [address] [place] [address] Performed By: #### 2 4320-08, 2142-12 ####[facility] LABORATORYCLIA [id number] [address] STATES OF [facility] CASE MANAGEMon 12-31-2024 CASE MANAGEM Normal [facility] CBC panel Auto (Bld)on 12-31 Erythrocyte distribution width (RBC) [Ratio] 12.4 % Normal 11.5-15.0 [facility] Comment on above: Order Comment: Speci men Type: BLOOD SPECIMENOrdering Facility: [facility] Address: [address] [place] [address] Performed By: #### 5 8410-2 ####[facility] LABORATORYCLIA [id number] [address] Hematocrit (Bld) [Volume fraction] 42.9 % Normal 36.0-46.0 [facility] Comment on above: Order Comment: Speci men Type: BLOOD SPECIMENOrdering Facility: [facility] Address: [address] [place] [address] Performed By: #### 5 8410-2 ####[facility] LABORATORYCLIA [id number] [address] Hemoglobin (Bld) [Mass/Vol] 14.4 g/dL Normal 11.5-15.5 [facility] Comment on above: Order Comment: Speci men Type: BLOOD SPECIMENOrdering Facility: [facility] Address: [address] [place] [address] Performed By: #### 5 8410-2 ####[facility] LABORATORYCLIA [id number] [address] [place] MCH (RBC) [Entitic mass] 32.3 pg Normal 26.0-34.0 [facility] Comment on above: Order Comment: Speci men Type: BLOOD SPECIMENOrdering Facility: [facility] Address: [address] [place] [address] Performed By: #### 5 8410-2 ####[facility] LABORATORYCLIA [id number] [place] [id number] [place] MCHC (RBC) [Mass/Vol] 33.6 g/dL Normal 30.5-36.0 [facility] Comment on above: Order Comment: Speci men Type: BLOOD SPECIMENOrdering Facility: [facility] Address: [address] [place] [address] Performed By: #### 5 8410-2 ####[facility] LABORATORYCLIA [id number] [place] [id number] [facility] MCV (RBC) [Entitic vol] 96.2 fL Normal 80.0-100.0 [facility] Comment on above: Order Comment: Speci men Type: BLOOD SPECIMENOrdering Facility: [facility] Address: [address] [place] [address] Performed By: #### 5 8410-2 ####[facility] LABORATORYCLIA [id number] [address] [place] Nucleated RBC (Bld) [#/Vol] 10*3/uL Normal <0.01 [facility] Comment on above: Order Comment: Speci men Type: BLOOD SPECIMENOrdering Facility: [facility] Address: [address] [place] [address] Performed By: #### 5 8410-2 ####[facility] LABORATORYCLIA [id number] [address] [place] Platelet mean volume (Bld) [Entitic vol] 10.2 fL Normal 9.0-12.7 [facility] Comment on above: Order Comment: Speci men Type: BLOOD SPECIMENOrdering Facility: [facility] Address: [address] [place] [address] Performed By: #### 5 8410-2 ####[facility] LABORATORYCLIA [id number] [address] [place] Platelets (Bld) [#/Vol] 179 10*3/uL Normal 150-400 [facility] Comment on above: Order Comment: Speci men Type: BLOOD SPECIMENOrdering Facility: [facility] Address: [address] [place] [address] Performed By: #### 5 8410-2 ####[facility] LABORATORYCLIA [id number] [address] RBC (Bld) [#/Vol] 4.46 10*6/uL Normal 3.90-5.20 [facility] Comment on above: Order Comment: Speci men Type: BLOOD SPECIMENOrdering Facility: [facility] Address: [address] [place] [address] Performed By: #### 5 8410-2 ####[facility] LABORATORYCLIA [id number] [address] OF [place] WBC (Bld) [#/Vol] 6.66 10*3/uL Normal 3.70-11.00 [facility] Comment on above: Order Comment: Speci men Type: BLOOD SPECIMENOrdering Facility: [facility] Address: [address] [place] [address] Performed By: #### 5 8410-2 ####[facility] LABORATORYCLIA [id number] [address] CONSULT PROGon 12-31-2024 CONSULT PROG Normal [facility] CONSULT PROG Normal [facility] Cortis SerPl-mCncon 01-01-20 25 Cortisol [Mass/Vol] 13.2 ug/dL Normal 3.4-22.5 [facility] Comment on above: Order Comment: Speci men Type: BLOOD SPECIMENOrdering Facility: [facility] Address: [address] [place] [address] Result Comment: PM: Approximately half of A.M. values Performed By: #### 2 4321-2, 2143-6 ####[facility] LABORATORYCLIA [id number] 22 [address] [place] TOXICOLOGY SCREEN, ROUTINE U RINEon 12-31-2024 Amphetamines Confirm (U) [Mass/Vol] Negative Normal Negative [facility] Comment on above: Order Comment: Speci men Type: URINE SPECIMENOrdering Facility: [facility] Address: [address] [place] [address] Result Comment: Cuto ff threshold at 1000 ng/mL. Performed By: #### U TOX2 ####[facility] LABORATORYCLIA [id number] [place] [address] [place] BARBITURATES, URINE Negative Normal Negative [facility] Comment on above: Order Comment: Speci men Type: URINE SPECIMENOrdering Facility: [facility] Address: [address] [place] [address] Result Comment: Cuto ff threshold at 200 ng/mL. Performed By: #### U TOX2 ####[facility] LABORATORYCLIA [id number] [place] [address] [place] BENZODIAZEPINES, UR Negative Normal Negative [facility] Comment on above: Order Comment: Speci men Type: URINE SPECIMENOrdering Facility: [facility] Address: [address] [place] [address] Result Comment: Cuto ff threshold at 200 ng/mL. Performed By: #### U TOX2 ####[facility] LABORATORYCLIA [id number] [place] [address] [place] Cannabinoids Screen Ql (U) Negative Normal Negative [facility] Comment on above: Order Comment: Speci men Type: URINE SPECIMENOrdering Facility: [facility] Address: [address] [place] [address] Result Comment: Cuto ff threshold at 50 ng/mL. Performed By: #### U TOX2 ####[facility] LABORATORYCLIA [id number] [place] [address] [place] Cocaine Ql (U) Negative Normal Negative [facility] Comment on above: Order Comment: Speci men Type: URINE SPECIMENOrdering Facility: [facility] Address: [address] [place] [address] Result Comment: Cuto ff threshold at 300 ng/mL. Performed By: #### U TOX2 ####[facility] LABORATORYCLIA [id number] [place] [address] [place] Opiates Screen Ql (U) Negative Normal Negative [facility] Comment on above: Order Comment: Speci men Type: URINE SPECIMENOrdering Facility: [facility] Address: [address] [place] [address] Result Comment: Cuto ff threshold at 300 ng/mL. Performed By: #### U TOX2 ####[facility] LABORATORYCLIA [id number] [place] [id number] [place] Phencyclidine Ql (U) Negative Normal Negative [facility] Comment on above: Order Comment: Speci men Type: URINE SPECIMENOrdering Facility: [facility] Address: [address] [place] [address] Result Comment: Cuto ff threshold at 25 ng/mL. Performed By: #### U TOX2 ####[facility] LABORATORYCLIA [id number] [place] [id number] [place] XR ABDOMEN 1V SUPINEon 12-31 XR ABDOMEN 1V SUPINE Normal [facility] Basic metabolic 2000 panelon 12-30-2024 Anion gap [Moles/Vol] 11 mmol/L Normal 5-16 [facility] Comment on above: Order Comment: Speci men Type: BLOOD SPECIMENOrdering Facility: [facility] Address: [address] [place] [address] Performed By: #### 2 4321-2, , 2156-12 ####[facility] LABORATORYCLIA [id number] [place] [id number] [place] Calcium [Mass/Vol] 9.3 mg/dL Normal 8.5-10.5 [facility] Comment on above: Order Comment: Speci men Type: BLOOD SPECIMENOrdering Facility: [facility] Address: [address] [place] [address] Performed By: #### 2 4321-2, , 2156-12 ####[facility] LABORATORYCLIA [id number] [place] [id number] [place] Chloride [Moles/Vol] 107 mmol/L Normal 98-107 [facility] Comment on above: Order Comment: Speci men Type: BLOOD SPECIMENOrdering Facility: [facility] Address: [address] [place], [place] [address] Performed By: #### 2 4321-2, , 2156-12 ####[facility] LABORATORYCLIA [id number] [place] [id number] [place] CO2 [Moles/Vol] 22 mmol/L Normal 21-32 [facility] Comment on above: Order Comment: Speci men Type: BLOOD SPECIMENOrdering Facility: [facility] Address: [address] [place] [address] Performed By: #### 2 4321-2, , 2156-12 ####[facility] LABORATORYCLIA [id number] [place] [id number] [place] Creatinine [Mass/Vol] 0.48 mg/dL Low 0.51-0.95 [facility] Comment on above: Order Comment: Speci men Type: BLOOD SPECIMENOrdering Facility: [facility] Address: [address] [place] [address] Result Comment: Marilin ents receiving either N-Acetylcysteine (NAC) or Metamizole prior to venipuncture, may have falsely depressed results. Performed By: #### 2 4321-2, , 2156-12 ####[facility] LABORATORYCLIA [id number] [place] [id number] [place] Creatinine and Glomerular filtration rate.predicted panel (S/P/Bld) 118 mL/min/1.73m??? Normal >=60 [facility] Comment on above: Order Comment: Speci men Type: BLOOD SPECIMENOrdering Facility: [facility] Address: [address] [place] [address] Result Comment: Chrissy mated Glomerular Filtration Rate (eGFR) is calculated using the 2020 CKD-EPI creatinine equation. This equation utilizes serum creatinine, sex, and age as parameters. The creatinine assay has traceable calibration to isotope dilution-mass spectrometry. Refer to KDIGO guidelines for clinical interpretation. In patients with unstable renal function, e.g. those with acute kidney injury, the eGFR may not accurately reflect actual GFR. Performed By: #### 2 4321-2, , 2156-12 ####[facility] LABORATORYCLIA [id number] [place] [id number] [place] Glucose [Mass/Vol] 88 mg/dL Normal 70-100 [facility] Comment on above: Order Comment: Syd ramos Type: BLOOD SPECIMENOrdering Facility: [facility] Address: [address] [place], [place] [address] Result Comment: The [place] [employer] (ADA) provides guidance for cutoff values for fasting glucose and random glucose. The ADA defines fasting as no caloric intake for at least 8 hours. Fasting plasma glucose results between 100 to 125 mg/dL indicate increased risk for diabetes (prediabetes).Fasting plasma glucose results greater than or equal to 126 mg/dL meet the criteria for diagnosis of diabetes. In the absence of unequivocal hyperglycemia, results should be confirmed by repeat testing. In a patient with classic symptoms of hyperglycemia or hyperglycemic crisis, random plasma glucose results greater than or equal to 200 mg/dL meet the criteria for diagnosis of diabetes.Reference: Standards of Medical Care in Diabetes 2016, [place] [employer]. Diabetes Care. 2016.39(Suppl 1).Results may be falsely elevated after the administration of Sulfapyridine.Results may be falsely depressed after the administration of Sulfasalazine. Performed By: #### 2 4321-2, , 2156-12 ####[facility] LABORATORYCLIA [id number] [place] [address] [place] Potassium [Moles/Vol] 3.8 mmol/L Normal 3.5-5.1 [facility] Comment on above: Order Comment: Syd ramos Type: BLOOD SPECIMENOrdering Facility: [facility] Address: [address] [place] [address] Performed By: #### 2 4321-2, , 2156-12 ####[facility] LABORATORYCLIA [id number] [place] [address] [place] Sodium [Moles/Vol] 140 mmol/L Normal 136-145 [facility] Comment on above: Order Comment: Syd ramos Type: BLOOD SPECIMENOrdering Facility: [facility] Address: [address] [place] [address] Performed By: #### 2 4321-2, , 2156-12 ####[facility] LABORATORYCLIA [id number] [place] [address] [place] Urea nitrogen [Mass/Vol] 5 mg/dL Low 7-26 [facility] Comment on above: Order Comment: Speci men Type: BLOOD SPECIMENOrdering Facility: [facility] Address: [address] [place] [address] Performed By: #### 2 4321-2, 84335-5, 2157-6 ####[facility] LABORATORYCLIA [id number] [address] [place] CBC panel Auto (Bld)on 12-30 Erythrocyte distribution width (RBC) [Ratio] 12.4 % Normal 11.5-15.0 [facility] Comment on above: Order Comment: Speci men Type: BLOOD SPECIMENOrdering Facility: [facility] Address: [address] [place] [address] Performed By: #### 5 8410-2 ####[facility] LABORATORYCLIA [id number] [address] STATES OF [facility] Hematocrit (Bld) [Volume fraction] 43.4 % Normal 36.0-46.0 [facility] Comment on above: Order Comment: Speci men Type: BLOOD SPECIMENOrdering Facility: [facility] Address: [address] [place] [address] Performed By: #### 5 8410-2 ####[facility] LABORATORYCLIA [id number] [address] [place] Hemoglobin (Bld) [Mass/Vol] 14.8 g/dL Normal 11.5-15.5 [facility] Comment on above: Order Comment: Speci men Type: BLOOD SPECIMENOrdering Facility: [facility] Address: [address] [place] [address] Performed By: #### 5 8410-2 ####[facility] LABORATORYCLIA [id number] [address] [place] MCH (RBC) [Entitic mass] 32.1 pg Normal 26.0-34.0 [facility] Comment on above: Order Comment: Speci men Type: BLOOD SPECIMENOrdering Facility: [facility] Address: [address] [place] [address] Performed By: #### 5 8410-2 ####[facility] LABORATORYCLIA [id number] [address] MCHC (RBC) [Mass/Vol] 34.1 g/dL Normal 30.5-36.0 [facility] Comment on above: Order Comment: Speci men Type: BLOOD SPECIMENOrdering Facility: [facility] Address: [address] [place] [address] Performed By: #### 5 8410-2 ####[facility] LABORATORYCLIA [id number] [address] [place] MCV (RBC) [Entitic vol] 94.1 fL Normal 80.0-100.0 [facility] Comment on above: Order Comment: Speci men Type: BLOOD SPECIMENOrdering Facility: [facility] Address: [address] [place] [address] Performed By: #### 5 8410-2 ####[facility] LABORATORYCLIA [id number] [address] [place] Nucleated RBC (Bld) [#/Vol] 10*3/uL Normal <0.01 [facility] Comment on above: Order Comment: Speci men Type: BLOOD SPECIMENOrdering Facility: [facility] Address: [address] [place] [place] [address] Performed By: #### 5 8410-2 ####[facility] LABORATORYCLIA [id number] [address] [place] Platelet mean volume (Bld) [Entitic vol] 9.7 fL Normal 9.0-12.7 [facility] Comment on above: Order Comment: Speci men Type: BLOOD SPECIMENOrdering Facility: [facility] Address: [address] [place] [address] Performed By: #### 5 8410-2 ####[facility] LABORATORYCLIA [id number] [address] [place] Platelets (Bld) [#/Vol] 211 10*3/uL Normal 150-400 [facility] Comment on above: Order Comment: Speci men Type: BLOOD SPECIMENOrdering Facility: [facility] Address: [address] [place] [address] Performed By: #### 5 8410-2 ####[facility] LABORATORYCLIA [id number] [place] [address] [place] RBC (Bld) [#/Vol] 4.61 10*6/uL Normal 3.90-5.20 [facility] Comment on above: Order Comment: Speci men Type: BLOOD SPECIMENOrdering Facility: [facility] Address: [address] [place] [address] Performed By: #### 5 8410-2 ####[facility] LABORATORYCLIA [id number] [address] OF [facility] WBC (Bld) [#/Vol] 7.50 10*3/uL Normal 3.70-11.00 [facility] Comment on above: Order Comment: Speci men Type: BLOOD SPECIMENOrdering Facility: [facility] Address: [address] [place] [address] Performed By: #### 5 8410-2 ####[facility] LABORATORYCLIA [id number] [address] [place] CK SerPl-cCncon 12-30-2024 CK [Catalytic activity/Vol] 512 U/L High 28-152 [facility] Comment on above: Order Comment: Speci men Type: BLOOD SPECIMENOrdering Facility: [facility] Address: [address] [place] [address] Performed By: #### 2 4321-2, 31074-1, 2157-6 ####[facility] LABORATORYCLIA [id number] [place] [address] [place] CONSULTon 12-30-2024 CONSULT Normal [facility] Magnesium SerPl-mCncon 12-30 Magnesium [Mass/Vol] 1.7 mg/dL Normal 1.6-2.6 [facility] Comment on above: Order Comment: Speci men Type: BLOOD SPECIMENOrdering Facility: [facility] Address: [address] [place] [address] [place] [address] Performed By: #### 2 4321-2, 49988-9, 2157-6 ####[facility] LABORATORYCLIA [id number] [place] [address] [place] ALLIED HEALTHon 12-29-2024 ALLIED HEALTH Normal [facility] Basic metabolic 2000 panelon 12-29-2024 Anion gap [Moles/Vol] 11 mmol/L Normal 5-16 [facility] Comment on above: Order Comment: Speci men Type: BLOOD SPECIMENOrdering Facility: [facility] Address: [address] [place] [address] Performed By: #### 2 4321-2 ####[facility] LABORATORYCLIA [id number] [place] [id number] [place] Calcium [Mass/Vol] 9.1 mg/dL Normal 8.5-10.5 [facility] Comment on above: Order Comment: Speci men Type: BLOOD SPECIMENOrdering Facility: [facility] Address: [address] [place] [address] Performed By: #### 2 4321-2 ####[facility] LABORATORYCLIA [id number] [place] [id number] [place] Chloride [Moles/Vol] 109 mmol/L High 98-107 [facility] Comment on above: Order Comment: Speci men Type: BLOOD SPECIMENOrdering Facility: [facility] Address: [address] [place] [address] Performed By: #### 2 4321-2 ####[facility] LABORATORYCLIA [id number] [place] [id number] [place] CO2 [Moles/Vol] 20 mmol/L Low 21-32 [facility] Comment on above: Order Comment: Speci men Type: BLOOD SPECIMENOrdering Facility: [facility] Address: [address] [place] [address] Performed By: #### 2 4321-2 ####[facility] LABORATORYCLIA [id number] [place] [address] [place] Creatinine [Mass/Vol] 0.52 mg/dL Normal 0.51-0.95 [facility] Comment on above: Order Comment: Syd ramos Type: BLOOD SPECIMENOrdering Facility: [facility] Address: [address] [place] [address] Result Comment: Marilin ents receiving either N-Acetylcysteine (NAC) or Metamizole prior to venipuncture, may have falsely depressed results. Performed By: #### 2 4321-2 ####[facility] LABORATORYCLIA [id number] [address] Creatinine and Glomerular filtration rate.predicted panel (S/P/Bld) 115 mL/min/1.73m??? Normal >=60 [facility] Comment on above: Order Comment: Syd ramos Type: BLOOD SPECIMENOrdering Facility: [facility] Address: [address] [place] [address] Result Comment: Chrissy mated Glomerular Filtration Rate (eGFR) is calculated using the 2020 CKD-EPI creatinine equation. This equation utilizes serum creatinine, sex, and age as parameters. The creatinine assay has traceable calibration to isotope dilution-mass spectrometry. Refer to KDIGO guidelines for clinical interpretation. In patients with unstable renal function, e.g. those with acute kidney injury, the eGFR may not accurately reflect actual GFR. Performed By: #### 2 4321-2 ####[facility] LABORATORYCLIA [id number] [address] [place] Glucose [Mass/Vol] 103 mg/dL High 70-100 [facility] Comment on above: Order Comment: Syd ramos Type: BLOOD SPECIMENOrdering Facility: [facility] Address: [address] [place] [address] Result Comment: The [place] Diabetes [employer] (ADA) provides guidance for cutoff values for fasting glucose and random glucose. The ADA defines fasting as no caloric intake for at least 8 hours. Fasting plasma glucose results between 100 to 125 mg/dL indicate increased risk for diabetes (prediabetes).Fasting plasma glucose results greater than or equal to 126 mg/dL meet the criteria for diagnosis of diabetes. In the absence of unequivocal hyperglycemia, results should be confirmed by repeat testing. In a patient with classic symptoms of hyperglycemia or hyperglycemic crisis, random plasma glucose results greater than or equal to 200 mg/dL meet the criteria for diagnosis of diabetes.Reference: Standards of Medical Care in Diabetes 2016, [place] [employer]. Diabetes Care. 2016.39(Suppl 1).Results may be falsely elevated after the administration of Sulfapyridine.Results may be falsely depressed after the administration of Sulfasalazine. Performed By: #### 2 4321-2 ####[facility] LABORATORYCLIA [id number] [place] [address] [place] Potassium [Moles/Vol] 3.8 mmol/L Normal 3.5-5.1 [facility] Comment on above: Order Comment: Syd ramos Type: BLOOD SPECIMENOrdering Facility: [facility] Address: [address] [place] [address] Performed By: #### 2 4321-2 ####[facility] LABORATORYCLIA [id number] [place] [address] [place] Sodium [Moles/Vol] 140 mmol/L Normal 136-145 [facility] Comment on above: Order Comment: Syd ramos Type: BLOOD SPECIMENOrdering Facility: [facility] Address: [address] [place] [address] Performed By: #### 2 4321-2 ####[facility] LABORATORYCLIA [id number] [address] [place] Urea nitrogen [Mass/Vol] 5 mg/dL Low 7-26 [facility] Comment on above: Order Comment: Syd ramos Type: BLOOD SPECIMENOrdering Facility: [facility] Address: [address] [place] [address] Performed By: #### 2 4321-2 ####[facility] LABORATORYCLIA [id number] [place] [address] [place] CBC W Auto Differential pane l (Bld)on 12-29-2024 Basophils (Bld) [#/Vol] 0.04 10*3/uL Normal <0.11 [facility] Comment on above: Order Comment: Speci men Type: BLOOD SPECIMENOrdering Facility: [facility] Address: [address] [place] [address] Performed By: #### 5 7021-8 ####[facility] LABORATORYCLIA [id number] [place] [address] [place] Basophils/100 WBC (Bld) 0.5 % Normal [facility] Comment on above: Order Comment: Speci men Type: BLOOD SPECIMENOrdering Facility: [facility] Address: [address] [place] [address] Performed By: #### 5 7021-8 ####[facility] LABORATORYCLIA [id number] [place] [address] [place] Differential cell count method Nom (Bld) Auto Normal [facility] Comment on above: Order Comment: Speci men Type: BLOOD SPECIMENOrdering Facility: [facility] Address: [address] [place] [address] Performed By: #### 5 7021-8 ####[facility] LABORATORYCLIA [id number] [place] [address] [place] Eosinophils (Bld) [#/Vol] 0.14 10*3/uL Normal <0.46 [facility] Comment on above: Order Comment: Speci men Type: BLOOD SPECIMENOrdering Facility: [facility] Address: [address] [place] [address] Performed By: #### 5 7021-8 ####[facility] LABORATORYCLIA [id number] [place] [address] [place] Eosinophils/100 WBC (Bld) 1.7 % Normal [facility] Comment on above: Order Comment: Speci men Type: BLOOD SPECIMENOrdering Facility: [facility] Address: [address] [place] [address] Performed By: #### 5 7021-8 ####[facility] LABORATORYCLIA [id number] [address] [place] Erythrocyte distribution width (RBC) [Ratio] 12.3 % Normal 11.5-15.0 [facility] Comment on above: Order Comment: Speci men Type: BLOOD SPECIMENOrdering Facility: [facility] Address: [address] [place] [address] Performed By: #### 5 7021-8 ####[facility] LABORATORYCLIA [id number] [place] [address] [place] Hematocrit (Bld) [Volume fraction] 42.6 % Normal 36.0-46.0 [facility] Comment on above: Order Comment: Speci men Type: BLOOD SPECIMENOrdering Facility: [facility] Address: [address] [place] [address] Performed By: #### 5 7021-8 ####[facility] LABORATORYCLIA [id number] [place] [address] [place] Hemoglobin (Bld) [Mass/Vol] 14.5 g/dL Normal 11.5-15.5 [facility] Comment on above: Order Comment: Speci men Type: BLOOD SPECIMENOrdering Facility: [facility] Address: [address] [place] [address] Performed By: #### 5 7021-8 ####[facility] LABORATORYCLIA [id number] [address] [place] Immature granulocytes (Bld) [#/Vol] 0.07 10*3/uL Normal <0.10 [facility] Comment on above: Order Comment: Speci men Type: BLOOD SPECIMENOrdering Facility: [facility] Address: [address] [place] [address] Performed By: #### 5 7021-8 ####[facility] LABORATORYCLIA [id number] [address] [place] Immature granulocytes/100 WBC (Bld) 0.8 % Normal [facility] Comment on above: Order Comment: Speci men Type: BLOOD SPECIMENOrdering Facility: [facility] Address: [address] [place] [address] Performed By: #### 5 7021-8 ####[facility] LABORATORYCLIA [id number] [place] [address] [place] Lymphocytes (Bld) [#/Vol] 2.83 10*3/uL Normal 1.00-4.00 [facility] Comment on above: Order Comment: Speci men Type: BLOOD SPECIMENOrdering Facility: [facility] Address: [address] [place] [address] Performed By: #### 5 7021-8 ####[facility] LABORATORYCLIA [id number] [address] [place] Lymphocytes/100 WBC (Bld) 33.7 % Normal [facility] Comment on above: Order Comment: Speci men Type: BLOOD SPECIMENOrdering Facility: [facility] Address: [address] [place] [address] Performed By: #### 5 7021-8 ####[facility] LABORATORYCLIA [id number] [address] [place] MCH (RBC) [Entitic mass] 31.5 pg Normal 26.0-34.0 [facility] Comment on above: Order Comment: Speci men Type: BLOOD SPECIMENOrdering Facility: [facility] Address: [address] [place] [address] Performed By: #### 5 7021-8 ####[facility] LABORATORYCLIA [id number] [address] [place] MCHC (RBC) [Mass/Vol] 34.0 g/dL Normal 30.5-36.0 [facility] Comment on above: Order Comment: Speci men Type: BLOOD SPECIMENOrdering Facility: [facility] Address: [address] [place] [address] Performed By: #### 5 7021-8 ####[facility] LABORATORYCLIA [id number] [address] [place] MCV (RBC) [Entitic vol] 92.6 fL Normal 80.0-100.0 [facility] Comment on above: Order Comment: Speci men Type: BLOOD SPECIMENOrdering Facility: [facility] Address: [address] [place] [address] Performed By: #### 5 7021-8 ####[facility] LABORATORYCLIA [id number] [place] [address] [place] Monocytes (Bld) [#/Vol] 1.10 10*3/uL High <0.87 [facility] Comment on above: Order Comment: Speci men Type: BLOOD SPECIMENOrdering Facility: [facility] Address: [address] [place] [address] Performed By: #### 5 7021-8 ####[facility] LABORATORYCLIA [id number] [place] [id number] [place] Monocytes/100 WBC (Bld) 13.1 % Normal [facility] Comment on above: Order Comment: Speci men Type: BLOOD SPECIMENOrdering Facility: [facility] Address: [address] [place] [address] Performed By: #### 5 7021-8 ####[facility] LABORATORYCLIA [id number] [place] [address] [place] Neutrophils (Bld) [#/Vol] 4.22 10*3/uL Normal 1.45-7.50 [facility] Comment on above: Order Comment: Speci men Type: BLOOD SPECIMENOrdering Facility: [facility] Address: [address] [place] [address] Performed By: #### 5 7021-8 ####[facility] LABORATORYCLIA [id number] [place] [id number] [place] Neutrophils/100 WBC (Bld) 50.2 % Normal [facility] Comment on above: Order Comment: Speci men Type: BLOOD SPECIMENOrdering Facility: [facility] Address: [address] [place] [address] Performed By: #### 5 7021-8 ####[facility] LABORATORYCLIA [id number] [place] [id number] [place] Nucleated RBC (Bld) [#/Vol] 10*3/uL Normal <0.01 [facility] Comment on above: Order Comment: Speci men Type: BLOOD SPECIMENOrdering Facility: [facility] Address: [address] [place] [address] Performed By: #### 5 7021-8 ####[facility] LABORATORYCLIA [id number] [place] [id number] [place] Nucleated RBC/100 WBC (Bld) [Ratio] 0.0 /100 WBC Normal [facility] Comment on above: Order Comment: Speci men Type: BLOOD SPECIMENOrdering Facility: [facility] Address: [address] [place] [address] Performed By: #### 5 7021-8 ####[facility] LABORATORYCLIA [id number] [place] [address] [place] Platelet mean volume (Bld) [Entitic vol] 10.1 fL Normal 9.0-12.7 [facility] Comment on above: Order Comment: Speci men Type: BLOOD SPECIMENOrdering Facility: [facility] Address: [address] [place] [address] Performed By: #### 5 7021-8 ####[facility] LABORATORYCLIA [id number] [place] [address] [place] Platelets (Bld) [#/Vol] 242 10*3/uL Normal 150-400 [facility] Comment on above: Order Comment: Speci men Type: BLOOD SPECIMENOrdering Facility: [facility] Address: [address] [place] [address] Performed By: #### 5 7021-8 ####[facility] LABORATORYCLIA [id number] [place] [address] [place] RBC (Bld) [#/Vol] 4.60 10*6/uL Normal 3.90-5.20 [facility] Comment on above: Order Comment: Speci men Type: BLOOD SPECIMENOrdering Facility: [facility] Address: [address] [place] [address] Performed By: #### 5 7021-8 ####[facility] LABORATORYCLIA [id number] [place] [address] [place] WBC (Bld) [#/Vol] 8.40 10*3/uL Normal 3.70-11.00 [facility] Comment on above: Order Comment: Speci men Type: BLOOD SPECIMENOrdering Facility: [facility] Address: [address] [place] [address] Performed By: #### 5 7021-8 ####[facility] LABORATORYCLIA [id number] [place] [id number] [place] CONSULTon 12-29-2024 CONSULT Normal [facility] NURSING PROGon 12-29-2024 NURSING PROG Normal [facility] THERAPY NTon 12-29-2024 THERAPY NT Normal [facility] ALLIED HEALTHon 12-28-2024 ALLIED HEALTH Normal [facility] Basic metabolic 2000 panelon 12-28-2024 Anion gap [Moles/Vol] 6 mmol/L Normal 5-16 [facility] Comment on above: Order Comment: Speci men Type: BLOOD SPECIMENOrdering Facility: [facility] Address: [address] [place] [address] Performed By: #### 2 4321-2 ####[facility] LABORATORYCLIA [id number] [place] [id number] [place] Calcium [Mass/Vol] 8.6 mg/dL Normal 8.5-10.5 [facility] Comment on above: Order Comment: Speci men Type: BLOOD SPECIMENOrdering Facility: [facility] Address: [address] [place] [address] Performed By: #### 2 4321-2 ####[facility] LABORATORYCLIA [id number] [place] [address] [place] Chloride [Moles/Vol] 111 mmol/L High 98-107 [facility] Comment on above: Order Comment: Speci men Type: BLOOD SPECIMENOrdering Facility: [facility] Address: [address] [place] [address] Performed By: #### 2 4321-2 ####[facility] LABORATORYCLIA [id number] [place] [address] [place] CO2 [Moles/Vol] 25 mmol/L Normal 21-32 [facility] Comment on above: Order Comment: Speci men Type: BLOOD SPECIMENOrdering Facility: [facility] Address: [address] [place] [address] Performed By: #### 2 4321-2 ####[facility] LABORATORYCLIA [id number] [place] [address] [place] Creatinine [Mass/Vol] 0.59 mg/dL Normal 0.51-0.95 [facility] Comment on above: Order Comment: Speci men Type: BLOOD SPECIMENOrdering Facility: [facility] Address: [address] [place] [address] Result Comment: Marilin ents receiving either N-Acetylcysteine (NAC) or Metamizole prior to venipuncture, may have falsely depressed results. Performed By: #### 2 4321-2 ####[facility] LABORATORYCLIA [id number] [address] Creatinine and Glomerular filtration rate.predicted panel (S/P/Bld) 112 mL/min/1.73m??? Normal >=60 [facility] Comment on above: Order Comment: Speci men Type: BLOOD SPECIMENOrdering Facility: [facility] Address: [address] [place] [address] Result Comment: Chrissy mated Glomerular Filtration Rate (eGFR) is calculated using the 2020 CKD-EPI creatinine equation. This equation utilizes serum creatinine, sex, and age as parameters. The creatinine assay has traceable calibration to isotope dilution-mass spectrometry. Refer to KDIGO guidelines for clinical interpretation. In patients with unstable renal function, e.g. those with acute kidney injury, the eGFR may not accurately reflect actual GFR. Performed By: #### 2 4321-2 ####[facility] LABORATORYCLIA [id number] [place] [address] [place] Glucose [Mass/Vol] 95 mg/dL Normal 70-100 [facility] Comment on above: Order Comment: Speci men Type: BLOOD SPECIMENOrdering Facility: [facility] Address: [address] [place], [place] [address] Result Comment: The [place] [employer] (ADA) provides guidance for cutoff values for fasting glucose and random glucose. The ADA defines fasting as no caloric intake for at least 8 hours. Fasting plasma glucose results between 100 to 125 mg/dL indicate increased risk for diabetes (prediabetes).Fasting plasma glucose results greater than or equal to 126 mg/dL meet the criteria for diagnosis of diabetes. In the absence of unequivocal hyperglycemia, results should be confirmed by repeat testing. In a patient with classic symptoms of hyperglycemia or hyperglycemic crisis, random plasma glucose results greater than or equal to 200 mg/dL meet the criteria for diagnosis of diabetes.Reference: Standards of Medical Care in Diabetes 2016, [place] [employer]. Diabetes Care. 2016.39(Suppl 1).Results may be falsely elevated after the administration of Sulfapyridine.Results may be falsely depressed after the administration of Sulfasalazine. Performed By: #### 2 4321-2 ####[facility] LABORATORYCLIA [id number] [place] [address] [place] Potassium [Moles/Vol] 3.7 mmol/L Normal 3.5-5.1 [facility] Comment on above: Order Comment: Syd ramos Type: BLOOD SPECIMENOrdering Facility: [facility] Address: [address] [place], [place] [address] Performed By: #### 2 4321-2 ####[facility] LABORATORYCLIA [id number] [place] [address] [place] Sodium [Moles/Vol] 142 mmol/L Normal 136-145 [facility] Comment on above: Order Comment: Syd ramos Type: BLOOD SPECIMENOrdering Facility: [facility] Address: [address] [place], [place] [address] Performed By: #### 2 4321-2 ####[facility] LABORATORYCLIA [id number] [place] [address] [place] Urea nitrogen [Mass/Vol] 8 mg/dL Normal 7-26 [facility] Comment on above: Order Comment: Irmai men Type: BLOOD SPECIMENOrdering Facility: [facility] Address: [address] [place], [place] [address] Performed By: #### 2 4321-2 ####[facility] LABORATORYCLIA [id number] [place] [id number] [place] CASE MGT INIT ASSESon 2024 CASE MGT INIT ASSES Normal [facility] CBC panel Auto (Bld)on 12-28 Erythrocyte distribution width (RBC) [Ratio] 12.4 % Normal 11.5-15.0 [facility] Comment on above: Order Comment: Speci men Type: BLOOD SPECIMENOrdering Facility: [facility] Address: [address] [place] [address] Performed By: #### 5 8410-2 ####[facility] LABORATORYCLIA [id number] [address] [place] Hematocrit (Bld) [Volume fraction] 41.2 % Normal 36.0-46.0 [facility] Comment on above: Order Comment: Speci men Type: BLOOD SPECIMENOrdering Facility: [facility] Address: [address] [place] [address] Performed By: #### 5 8410-2 ####[facility] LABORATORYCLIA [id number] [place] [address] [place] Hemoglobin (Bld) [Mass/Vol] 13.7 g/dL Normal 11.5-15.5 [facility] Comment on above: Order Comment: Speci men Type: BLOOD SPECIMENOrdering Facility: [facility] Address: [address] [place] [address] Performed By: #### 5 8410-2 ####[facility] LABORATORYCLIA [id number] [place] [address] [place] MCH (RBC) [Entitic mass] 32.3 pg Normal 26.0-34.0 [facility] Comment on above: Order Comment: Speci men Type: BLOOD SPECIMENOrdering Facility: [facility] Address: [address] [place] [address] Performed By: #### 5 8410-2 ####[facility] LABORATORYCLIA [id number] [address] [place] MCHC (RBC) [Mass/Vol] 33.3 g/dL Normal 30.5-36.0 [facility] Comment on above: Order Comment: Speci men Type: BLOOD SPECIMENOrdering Facility: [facility] Address: [address] [place] [address] Performed By: #### 5 8410-2 ####[facility] LABORATORYCLIA [id number] [place] [address] [place] MCV (RBC) [Entitic vol] 97.2 fL Normal 80.0-100.0 [facility] Comment on above: Order Comment: Speci men Type: BLOOD SPECIMENOrdering Facility: [facility] Address: [address] [place] [address] Performed By: #### 5 8410-2 ####[facility] LABORATORYCLIA [id number] [address] [place] Nucleated RBC (Bld) [#/Vol] 10*3/uL Normal <0.01 [facility] Comment on above: Order Comment: Speci men Type: BLOOD SPECIMENOrdering Facility: [facility] Address: [address] [place] [address] Performed By: #### 5 8410-2 ####[facility] LABORATORYCLIA [id number] [place] [address] [place] Platelet mean volume (Bld) [Entitic vol] 9.7 fL Normal 9.0-12.7 [facility] Comment on above: Order Comment: Speci men Type: BLOOD SPECIMENOrdering Facility: [facility] Address: [address] [place] [address] Performed By: #### 5 8410-2 ####[facility] LABORATORYCLIA [id number] [place] [address] [place] Platelets (Bld) [#/Vol] 193 10*3/uL Normal 150-400 [facility] Comment on above: Order Comment: Speci men Type: BLOOD SPECIMENOrdering Facility: [facility] Address: [address] [place] [address] Performed By: #### 5 8410-2 ####[facility] LABORATORYCLIA [id number] [address] [facility] RBC (Bld) [#/Vol] 4.24 10*6/uL Normal 3.90-5.20 [facility] Comment on above: Order Comment: Speci men Type: BLOOD SPECIMENOrdering Facility: [facility] Address: [address] [place] [address] Performed By: #### 5 8410-2 ####[facility] LABORATORYCLIA [id number] [address] WBC (Bld) [#/Vol] 7.16 10*3/uL Normal 3.70-11.00 [facility] Comment on above: Order Comment: Speci men Type: BLOOD SPECIMENOrdering Facility: [facility] Address: [address] [place] [address] Performed By: #### 5 8410-2 ####[facility] LABORATORYCLIA [id number] [address] [place] BRAIN WO IVCONon 12-29-[address] BRAIN WO IVCON Normal [facility] Resp path 12b Pnl Spec MACIE+p robeon 12-28-2024 Respiratory pathogens DNA and RNA 12b panel MACIE+probe (Unsp spec) Normal [facility] Comment on above: Performed By: #### 6 0566-7 ####[facility] LABORATORYCLIA [id number] [place] [address] [place] ALLIED HEALTHon 12-27-2024 ALLIED HEALTH Normal [facility] AST SerPl-cCncon 12-27-2024 AST [Catalytic activity/Vol] 20 U/L Normal 8-34 [facility] Comment on above: Order Comment: Speci men Type: BLOOD SPECIMENOrdering Facility: [facility] Address: [address], [place] [address] Result Comment: Resu lts may be falsely depressed after the administration of Sulfasalazine and/or Sulfapyridine. Performed By: #### 1 920-8, 3094-0, K1, 59129-7 ####[facility] LABORATORYCLIA [id number] [place] [id number] [place] Ammonia Plas-sCncon 12-28-19 Ammonia (P) [Moles/Vol] 15 umol/L Normal - [facility] Comment on above: Order Comment: Speci men Type: BLOOD SPECIMENOrdering Facility: [facility] Address: [address] [place] [address] Result Comment: Resu lts may be falsely depressed after the administration of Sulfapyridine. Results may be falsely elevated after the administration of Sulfasalazine. Performed By: #### 1 6362-6 ####[facility] LABORATORYCLIA [id number] [address] [place] BUN SerPl-mCncon 12-27-2024 Urea nitrogen [Mass/Vol] 12 mg/dL Normal 02-09 [facility] Comment on above: Order Comment: Speci men Type: BLOOD SPECIMENOrdering Facility: [facility] Address: [address] [place] [address] Performed By: #### 1 920-8, 3094-0, K1, 50909-6 ####[facility] LABORATORYCLIA [id number] [address] [place] CBC W Auto Differential pane l (Bld)on 12-27-2024 Basophils (Bld) [#/Vol] 0.04 10*3/uL Normal <0.11 [facility] Comment on above: Order Comment: Speci men Type: BLOOD SPECIMENOrdering Facility: [facility] Address: [address] [place] [address] Performed By: #### 5 7021-8 ####[facility] LABORATORYCLIA [id number] [address] [place] Basophils/100 WBC (Bld) 0.5 % Normal [facility] Comment on above: Order Comment: Speci men Type: BLOOD SPECIMENOrdering Facility: [facility] Address: [address] [place] [address] Performed By: #### 5 7021-8 ####[facility] LABORATORYCLIA [id number] [place] [id number] [place] Differential cell count method Nom (Bld) Auto Normal [facility] Comment on above: Order Comment: Speci men Type: BLOOD SPECIMENOrdering Facility: [facility] Address: [address] [place] [address] Performed By: #### 5 7021-8 ####[facility] LABORATORYCLIA [id number] [place] [address] [place] Eosinophils (Bld) [#/Vol] 0.14 10*3/uL Normal <0.46 [facility] Comment on above: Order Comment: Speci men Type: BLOOD SPECIMENOrdering Facility: [facility] Address: [address] [place] [address] Performed By: #### 5 7021-8 ####[facility] LABORATORYCLIA [id number] [place] [address] [place] Eosinophils/100 WBC (Bld) 1.8 % Normal [facility] Comment on above: Order Comment: Speci men Type: BLOOD SPECIMENOrdering Facility: [facility] Address: [address] [place] [address] Performed By: #### 5 7021-8 ####[facility] LABORATORYCLIA [id number] [place] [address] [place] Erythrocyte distribution width (RBC) [Ratio] 12.7 % Normal 11.5-15.0 [facility] Comment on above: Order Comment: Speci men Type: BLOOD SPECIMENOrdering Facility: [facility] Address: [address] [place] [address] Performed By: #### 5 7021-8 ####[facility] LABORATORYCLIA [id number] [place] [address] [place] Hematocrit (Bld) [Volume fraction] 46.0 % Normal 36.0-46.0 [facility] Comment on above: Order Comment: Speci men Type: BLOOD SPECIMENOrdering Facility: [facility] Address: [address] [place] [address] Performed By: #### 5 7021-8 ####[facility] LABORATORYCLIA [id number] [place] [address] [place] Hemoglobin (Bld) [Mass/Vol] 15.2 g/dL Normal 11.5-15.5 [facility] Comment on above: Order Comment: Speci men Type: BLOOD SPECIMENOrdering Facility: [facility] Address: [address] [place] [address] Performed By: #### 5 7021-8 ####[facility] LABORATORYCLIA [id number] [place] [address] [place] Immature granulocytes (Bld) [#/Vol] 0.04 10*3/uL Normal <0.10 [facility] Comment on above: Order Comment: Speci men Type: BLOOD SPECIMENOrdering Facility: [facility] Address: [address] [place] [address] Performed By: #### 5 7021-8 ####[facility] LABORATORYCLIA [id number] [place] [address] [place] Immature granulocytes/100 WBC (Bld) 0.5 % Normal [facility] Comment on above: Order Comment: Speci men Type: BLOOD SPECIMENOrdering Facility: [facility] Address: [address] [place] [address] Performed By: #### 5 7021-8 ####[facility] LABORATORYCLIA [id number] [place] [address] [place] Lymphocytes (Bld) [#/Vol] 2.20 10*3/uL Normal 1.00-4.00 [facility] Comment on above: Order Comment: Speci men Type: BLOOD SPECIMENOrdering Facility: [facility] Address: [address] [place] [address] Performed By: #### 5 7021-8 ####[facility] LABORATORYCLIA [id number] [place] [address] [place] Lymphocytes/100 WBC (Bld) 28.7 % Normal [facility] Comment on above: Order Comment: Speci men Type: BLOOD SPECIMENOrdering Facility: [facility] Address: [address] [place] [address] Performed By: #### 5 7021-8 ####[facility] LABORATORYCLIA [id number] [place] [address] [place] MCH (RBC) [Entitic mass] 31.9 pg Normal 26.0-34.0 [facility] Comment on above: Order Comment: Speci men Type: BLOOD SPECIMENOrdering Facility: [facility] Address: [address] [place] [address] Performed By: #### 5 7021-8 ####[facility] LABORATORYCLIA [id number] [address] [place] MCHC (RBC) [Mass/Vol] 33.0 g/dL Normal 30.5-36.0 [facility] Comment on above: Order Comment: Speci men Type: BLOOD SPECIMENOrdering Facility: [facility] Address: [address] [place] [address] Performed By: #### 5 7021-8 ####[facility] LABORATORYCLIA [id number] [place] [address] [place] MCV (RBC) [Entitic vol] 96.6 fL Normal 80.0-100.0 [facility] Comment on above: Order Comment: Speci men Type: BLOOD SPECIMENOrdering Facility: [facility] Address: [address] [place] [address] Performed By: #### 5 7021-8 ####[facility] LABORATORYCLIA [id number] [address] [place] Monocytes (Bld) [#/Vol] 1.25 10*3/uL High <0.87 [facility] Comment on above: Order Comment: Speci men Type: BLOOD SPECIMENOrdering Facility: [facility] Address: [address] [place] [address] Performed By: #### 5 7021-8 ####[facility] LABORATORYCLIA [id number] [place] [address] [place] Monocytes/100 WBC (Bld) 16.3 % Normal [facility] Comment on above: Order Comment: Speci men Type: BLOOD SPECIMENOrdering Facility: [facility] Address: [address] [place] [address] Performed By: #### 5 7021-8 ####[facility] LABORATORYCLIA [id number] [place] [address] [place] Neutrophils (Bld) [#/Vol] 4.00 10*3/uL Normal 1.45-7.50 [facility] Comment on above: Order Comment: Speci men Type: BLOOD SPECIMENOrdering Facility: [facility] Address: [address] [place] [address] Performed By: #### 5 7021-8 ####[facility] LABORATORYCLIA [id number] [place] [address] [place] Neutrophils/100 WBC (Bld) 52.2 % Normal [facility] Comment on above: Order Comment: Speci men Type: BLOOD SPECIMENOrdering Facility: [facility] Address: [address] [place] [address] Performed By: #### 5 7021-8 ####[facility] LABORATORYCLIA [id number] [place] [address] [place] Nucleated RBC (Bld) [#/Vol] 10*3/uL Normal <0.01 [facility] Comment on above: Order Comment: Speci men Type: BLOOD SPECIMENOrdering Facility: [facility] Address: [address] [place] [address] Performed By: #### 5 7021-8 ####[facility] LABORATORYCLIA [id number] [place] [address] [place] Nucleated RBC/100 WBC (Bld) [Ratio] 0.0 /100 WBC Normal [facility] Comment on above: Order Comment: Speci men Type: BLOOD SPECIMENOrdering Facility: [facility] Address: [address] [place] [address] Performed By: #### 5 7021-8 ####[facility] LABORATORYCLIA [id number] [place] [id number] [place] Platelet mean volume (Bld) [Entitic vol] 10.1 fL Normal 9.0-12.7 [facility] Comment on above: Order Comment: Speci men Type: BLOOD SPECIMENOrdering Facility: [facility] Address: [address] [place] [address] Performed By: #### 5 7021-8 ####[facility] LABORATORYCLIA [id number] [place] [id number] [place] Platelets (Bld) [#/Vol] 232 10*3/uL Normal 150-400 [facility] Comment on above: Order Comment: Speci men Type: BLOOD SPECIMENOrdering Facility: [facility] Address: [address] [place] [address] Performed By: #### 5 7021-8 ####[facility] LABORATORYCLIA [id number] [place] [address] [place] RBC (Bld) [#/Vol] 4.76 10*6/uL Normal 3.90-5.20 [facility] Comment on above: Order Comment: Speci men Type: BLOOD SPECIMENOrdering Facility: [facility] Address: [address] [place] [address] Performed By: #### 5 7021-8 ####[facility] LABORATORYCLIA [id number] [place] [id number] [place] WBC (Bld) [#/Vol] 7.67 10*3/uL Normal 3.70-11.00 [facility] Comment on above: Order Comment: Speci men Type: BLOOD SPECIMENOrdering Facility: [facility] Address: [address] [place] [address] Performed By: #### 5 7021-8 ####[facility] LABORATORYCLIA [id number] [place] [address] [place] ABD/PEL W IVCONon 025 CT ABD/PEL W IVCON Normal [facility] CT BRAIN WO IVCONon 12-28-[address] BRAIN WO IVCON Normal [facility] Comprehensive metabolic 2000 panelon 12-27-2024 Albumin [Mass/Vol] 3.5 g/dL Normal 3.2-5.0 [facility] Comment on above: Order Comment: Speci men Type: BLOOD SPECIMENOrdering Facility: [facility] Address: [address] [place] [address] Performed By: #### 2 4323-8, 3040-3, 15814-3, HSTRSAWYER, 5643-2 ####[facility] LABORATORYCLIA [id number] [place] [id number] [place] ALP [Catalytic activity/Vol] 66 U/L Normal 45-117 [facility] Comment on above: Order Comment: Speci men Type: BLOOD SPECIMENOrdering Facility: [facility] Address: [address] [place] [address] Performed By: #### 2 4323-8, 3040-3, 73439-5, HSTRSAWYER, 5643-2 ####[facility] LABORATORYCLIA [id number] [place] [id number] [place] ALT [Catalytic activity/Vol] 20 U/L Normal 13-61 [facility] Comment on above: Order Comment: Speci men Type: BLOOD SPECIMENOrdering Facility: [facility] Address: [address] [place] [address] Result Comment: Resu lts may be falsely depressed after the administration of Sulfasalazine and/or Sulfapyridine. Performed By: #### 2 4323-8, 3040-3, 96789-8, HSTROP, 5643-2 ####[facility] LABORATORYCLIA [id number] [place] [id number] [place] Anion gap [Moles/Vol] 9 mmol/L Normal 5-16 [facility] Comment on above: Order Comment: Speci men Type: BLOOD SPECIMENOrdering Facility: [facility] Address: [address] [place] [place] [address] Performed By: #### 2 4323-8, 3040-3, 35234-7, HSTROP, 5643-2 ####[facility] LABORATORYCLIA [id number] [place] [id number] [place] AST [Catalytic activity/Vol] Normal [facility] Comment on above: Order Comment: Speci men Type: BLOOD SPECIMENOrdering Facility: [facility] Address: [address] [place] [address] Result Comment: Unab le to assay due to interference from hemolysis. Suggest reorder as clinically indicated.Results may be falsely depressed after the administration of Sulfasalazine and/or Sulfapyridine. Performed By: #### 2 4323-8, 3040-3, 49638-8, HSTROP, 5643-2 ####[facility] LABORATORYCLIA [id number] [place] [id number] [place] Bilirubin [Mass/Vol] 0.6 mg/dL Normal 0.2-1.0 [facility] Comment on above: Order Comment: Speci men Type: BLOOD SPECIMENOrdering Facility: [facility] Address: [address] [place] [address] Performed By: #### 2 4323-8, 3040-3, , HSTROP, 5643-2 ####[facility] LABORATORYCLIA [id number] [place] [id number] [place] Calcium [Mass/Vol] 9.4 mg/dL Normal 8.5-10.5 [facility] Comment on above: Order Comment: Speci men Type: BLOOD SPECIMENOrdering Facility: [facility] Address: [address] [place] [address] Performed By: #### 2 4323-8, 3040-3, 74456-0, HSTROP, 5643-2 ####[facility] LABORATORYCLIA [id number] [place] [id number] [place] Chloride [Moles/Vol] 103 mmol/L Normal 98-107 [facility] Comment on above: Order Comment: Speci men Type: BLOOD SPECIMENOrdering Facility: [facility] Address: [address] [place] [address] Performed By: #### 2 4323-8, 3040-3, 18941-1, HSTROP, 5643-2 ####[facility] LABORATORYCLIA [id number] [place] [address] [place] CO2 [Moles/Vol] 28 mmol/L Normal 21-32 [facility] Comment on above: Order Comment: Speci men Type: BLOOD SPECIMENOrdering Facility: [facility] Address: [address] [place] [address] Performed By: #### 2 4323-8, 3040-3, 04606-9, HSTROP, 5643-2 ####[facility] LABORATORYCLIA [id number] [place] [id number] [place] Creatinine [Mass/Vol] Normal [facility] Comment on above: Order Comment: Speci men Type: BLOOD SPECIMENOrdering Facility: [facility] Address: [address] [place] [address] Result Comment: Unab le to assay due to interference from hemolysis. Suggest reorder as clinically indicated. Performed By: #### 2 4323-8, 3040-3, 07696-3, HSTROP, 5643-2 ####[facility] LABORATORYCLIA [id number] [place] [address] [place] Creatinine and Glomerular filtration rate.predicted panel (S/P/Bld) Normal [facility] Comment on above: Order Comment: Speci men Type: BLOOD SPECIMENOrdering Facility: [facility] Address: [address] [place] [address] Result Comment: Chrissy mated Glomerular Filtration Rate (eGFR) is calculated using the 2020 CKD-EPI creatinine equation. This equation utilizes serum creatinine, sex, and age as parameters. The creatinine assay has traceable calibration to isotope dilution-mass spectrometry. Refer to KDIGO guidelines for clinical interpretation. In patients with unstable renal function, e.g. those with acute kidney injury, the eGFR may not accurately reflect actual GFR. Performed By: #### 2 4323-8, 3040-3, 79529-8, HSTRSAWYER, 5643-2 ####[facility] LABORATORYCLIA [id number] [place] [id number] [place] Glucose [Mass/Vol] 100 mg/dL Normal 70-100 [facility] Comment on above: Order Comment: Specpatrice ramos Type: BLOOD SPECIMENOrdering Facility: [facility] Address: [address] [place] [address] Result Comment: The [place] [employer] (ADA) provides guidance for cutoff values for fasting glucose and random glucose. The ADA defines fasting as no caloric intake for at least 8 hours. Fasting plasma glucose results between 100 to 125 mg/dL indicate increased risk for diabetes (prediabetes).Fasting plasma glucose results greater than or equal to 126 mg/dL meet the criteria for diagnosis of diabetes. In the absence of unequivocal hyperglycemia, results should be confirmed by repeat testing. In a patient with classic symptoms of hyperglycemia or hyperglycemic crisis, random plasma glucose results greater than or equal to 200 mg/dL meet the criteria for diagnosis of diabetes.Reference: Standards of Medical Care in Diabetes 2016, [place] [employer]. Diabetes Care. 2016.39(Suppl 1).Results may be falsely elevated after the administration of Sulfapyridine.Results may be falsely depressed after the administration of Sulfasalazine. Performed By: #### 2 4323-8, 3040-3, 96303-1, HSTRSAWYER, 5643-2 ####[facility] LABORATORYCLIA [id number] [place] [id number] [place] Potassium [Moles/Vol] Normal [facility] Comment on above: Order Comment: Syd ramos Type: BLOOD SPECIMENOrdering Facility: [facility] Address: [address] [place] [address] Result Comment: Unab le to assay due to interference from hemolysis. Suggest reorder as clinically indicated. Performed By: #### 2 4323-8, 3040-3, 11577-7, HSTRSAWYER, 5643-2 ####[facility] LABORATORYCLIA [id number] [place] [id number] [place] Protein [Mass/Vol] 7.2 g/dL Normal 6.0-8.5 [facility] Comment on above: Order Comment: Speci men Type: BLOOD SPECIMENOrdering Facility: [facility] Address: [address] [place] [address] Performed By: #### 2 4323-8, 3040-3, 20701-4, HSTROP, 5643-2 ####[facility] LABORATORYCLIA [id number] [place] [id number] [place] Sodium [Moles/Vol] 140 mmol/L Normal 136-145 [facility] Comment on above: Order Comment: Speci men Type: BLOOD SPECIMENOrdering Facility: [facility] Address: [address] [place] [address] Performed By: #### 2 4323-8, 3040-3, 78160-1, HSTROP, 5643-2 ####[facility] LABORATORYCLIA [id number] [place] [id number] [place] Urea nitrogen [Mass/Vol] Normal [facility] Comment on above: Order Comment: Speci men Type: BLOOD SPECIMENOrdering Facility: [facility] Address: [address] [place] [address] Result Comment: Unab le to assay due to interference from hemolysis. Suggest reorder as clinically indicated. Performed By: #### 2 4323-8, 3040-3, 96894-9, HSTROP, 5643-2 ####[facility] LABORATORYCLIA [id number] [place] [id number] [place] Creatinine + eGFR Pnl SerPlB ldon 12-27-2024 Creatinine and Glomerular filtration rate.predicted panel (S/P/Bld) 109 mL/min/1.73m??? Normal >=60 [facility] Comment on above: Order Comment: Speci men Type: BLOOD SPECIMENOrdering Facility: [facility] Address: [address] [place] [address] Result Comment: Chrissy mated Glomerular Filtration Rate (eGFR) is calculated using the 2020 CKD-EPI creatinine equation. This equation utilizes serum creatinine, sex, and age as parameters. The creatinine assay has traceable calibration to isotope dilution-mass spectrometry. Refer to KDIGO guidelines for clinical interpretation. In patients with unstable renal function, e.g. those with acute kidney injury, the eGFR may not accurately reflect actual GFR. Performed By: #### 1 920-8, 3094-0, K1, 74303-0 ####[facility] LABORATORYCLIA [id number] [address] Creatinine and Glomerular fi ltration rate.predicted panel (S/P/Bld)on 12-27-2024 Creatinine [Mass/Vol] 0.66 mg/dL Normal 0.51-0.95 [facility] Comment on above: Order Comment: Speci men Type: BLOOD SPECIMENOrdering Facility: [facility] Address: [address] [place] [address] Result Comment: Marilin ents receiving either N-Acetylcysteine (NAC) or Metamizole prior to venipuncture, may have falsely depressed results. Performed By: #### 1 920-8, 3094-0, K1, 92235-9 ####[facility] LABORATORYCLIA [id number] [address] [place] ECG COMPLETEon 12-27-2024 ECG COMPLETE Normal [facility] ED NOTEon 12-27-2024 ED NOTE HNO ID: [id number] Author: SONYA AYALA, Medic Service: ? Author Type: Bacteriology Professor and Meteorological Engineer Type: ED Notes Filed: 12/27/2024 14:38 Note Text: Bed: 01-ED Expected date: Expected time: Means of arrival: Comments: ems Normal [facility] ED PROV NOTEon 12-27-2024 ED PROV NOTE Normal [facility] Ethanol SerPl-mCncon 025 Ethanol [Mass/Vol] mg/dL Normal <0.010 [facility] Comment on above: Order Comment: Speci men Type: BLOOD SPECIMENOrdering Facility: [facility] Address: [address] [place] [address] Performed By: #### 2 4323-8, 3040-3, 62826-9, HSTROP, 5643-2 ####[facility] LABORATORYCLIA [id number] [place] [id number] [place] HIGH SENSITIVITY TROPONIN Io n 12-27-2024 Tropinin I.cardiac panel High sensitivity method <2.5 Normal 0.0-34.0 [facility] Comment on above: Order Comment: Speci men Type: BLOOD SPECIMENOrdering Facility: [facility] Address: [address] [place] [address] Performed By: #### 2 4323-8, 3040-3, , HSTROP, 5643-2 ####[facility] LABORATORYCLIA [id number] [address] STATES [facility] HISTORY PHYSICALon 5 HISTORY PHYSICAL Normal [facility] Lipase SerPl-cCncon 12-28-19 25 Lipase [Catalytic activity/Vol] Normal [facility] Comment on above: Order Comment: Speci men Type: BLOOD SPECIMENOrdering Facility: [facility] Address: [address] [place] [address] Result Comment: Unab le to assay due to interference from hemolysis. Suggest reorder as clinically indicated. Performed By: #### 2 4323-8, 3040-3, 25760-9, HSTROP, 5643-2 ####[facility] LABORATORYCLIA [id number] [place] [id number] [place] Magnesium SerPl-mCncon 12-27 Magnesium [Mass/Vol] 2.1 mg/dL Normal 1.6-2.6 [facility] Comment on above: Order Comment: Speci men Type: BLOOD SPECIMENOrdering Facility: [facility] Address: [address] [place] [address] Performed By: #### 2 4323-8, 3040-3, 29568-0, HSTROP, 5643-2 ####[facility] LABORATORYCLIA [id number] [place] [id number] [place] POTASSIUMon 12-27-2024 Potassium [Moles/Vol] 4.1 mmol/L Normal 3.5-5.1 [facility] Comment on above: Order Comment: Speci men Type: BLOOD SPECIMENOrdering Facility: [facility] Address: [address] [place] [address] Performed By: #### 1 920-8, 3094-0, K1, 55053-9 ####[facility] LABORATORYCLIA [id number] [address] Urinalysis complete panel (U )on 12-27-2024 Bacteria LM.HPF (Urine sed) [#/Area] None Seen Normal None Seen [facility] Comment on above: Order Comment: Speci men Type: URINE SPECIMENOrdering Facility: [facility] Address: [address] [place] [address] Performed By: #### 2 4356-8 ####[facility] LABORATORYCLIA [id number] [place] [address] [place] Bilirubin Ql (U) Negative Normal Negative [facility] Comment on above: Order Comment: Speci men Type: URINE SPECIMENOrdering Facility: [facility] Address: [address] [place] [address] Performed By: #### 2 4356-8 ####[facility] LABORATORYCLIA [id number] [address] [place] Clarity (Unsp spec) Clear Normal Clear [facility] Comment on above: Order Comment: Speci men Type: URINE SPECIMENOrdering Facility: [facility] Address: [address] [place] [address] Performed By: #### 2 4356-8 ####[facility] LABORATORYCLIA [id number] [address] [place] Color (U) Earlene Abnormal Yellow [facility] Comment on above: Order Comment: Speci men Type: URINE SPECIMENOrdering Facility: [facility] Address: [address] [place] [address] Performed By: #### 2 4356-8 ####[facility] LABORATORYCLIA [id number] [address] [place] Epithelial cells LM.HPF (Urine sed) [#/Area] Few Normal [facility] Comment on above: Order Comment: Speci men Type: URINE SPECIMENOrdering Facility: [facility] Address: [address] [place] [address] Performed By: #### 2 4356-8 ####[facility] LABORATORYCLIA [id number] [address] [place] Glucose Test strip (U) [Mass/Vol] Negative Normal Negative [facility] Comment on above: Order Comment: Speci men Type: URINE SPECIMENOrdering Facility: [facility] Address: [address] [place] [address] Performed By: #### 2 4356-8 ####[facility] LABORATORYCLIA [id number] [place] [address] [place] Hemoglobin Ql (U) Negative Normal Negative [facility] Comment on above: Order Comment: Speci men Type: URINE SPECIMENOrdering Facility: [facility] Address: [address] [place] [address] Performed By: #### 2 4356-8 ####[facility] LABORATORYCLIA [id number] [address] [place] Ketones Ql (U) Trace Abnormal Negative [facility] Comment on above: Order Comment: Speci men Type: URINE SPECIMENOrdering Facility: [facility] Address: [address] [place] [address] Performed By: #### 2 4356-8 ####[facility] LABORATORYCLIA [id number] [place] [address] [place] Leukocyte esterase Test strip Ql (U) Negative Normal Negative [facility] Comment on above: Order Comment: Speci men Type: URINE SPECIMENOrdering Facility: [facility] Address: [address] [place] [address] Performed By: #### 2 4356-8 ####[facility] LABORATORYCLIA [id number] [place] [address] [place] Nitrite Ql (U) Negative Normal Negative [facility] Comment on above: Order Comment: Speci men Type: URINE SPECIMENOrdering Facility: [facility] Address: [address] [place] [address] Performed By: #### 2 4356-8 ####[facility] LABORATORYCLIA [id number] [address] [place] pH (U) 6.0 [pH] Normal 5.0-8.0 [facility] Comment on above: Order Comment: Speci men Type: URINE SPECIMENOrdering Facility: [facility] Address: [address] [place] [address] Performed By: #### 2 4356-8 ####[facility] LABORATORYCLIA [id number] [address] Protein (U) [Mass/Vol] 1+ Abnormal Negative [facility] Comment on above: Order Comment: Speci men Type: URINE SPECIMENOrdering Facility: [facility] Address: [address] [place] [address] Performed By: #### 2 4356-8 ####[facility] LABORATORYCLIA [id number] [place] [address] [place] RBC LM.HPF (Urine sed) [#/Area] 0-3 /HPF Normal 0-3 /HPF [facility] Comment on above: Order Comment: Speci men Type: URINE SPECIMENOrdering Facility: [facility] Address: [address] [place] [address] Performed By: #### 2 4356-8 ####[facility] LABORATORYCLIA [id number] [place] [id number] [place] Specific gravity (U) [Rel density] 1.024 Normal 1.005-1.03 0 [facility] Comment on above: Order Comment: Speci men Type: URINE SPECIMENOrdering Facility: [facility] Address: [address] [place] [address] Performed By: #### 2 4356-8 ####[facility] LABORATORYCLIA [id number] [address] Urobilinogen Ql (U) 2+ Abnormal Negative [facility] Comment on above: Order Comment: Speci men Type: URINE SPECIMENOrdering Facility: [facility] Address: [address] [place] [address] Performed By: #### 2 4356-8 ####[facility] LABORATORYCLIA [id number] [address] WBC LM.HPF (Urine sed) [#/Area] 0-5 /HPF Normal 0-5 /HPF [facility] Comment on above: Order Comment: Speci men Type: URINE SPECIMENOrdering Facility: [facility] Address: [address] [place] [address] Performed By: #### 2 4356-8 ####[facility] LABORATORYCLIA [id number] [place] [id number] [facility] Urine Cultureon 12-27-2024 URC Below infection leve l. Mixed Gram Pos Gram Neg Org Keeler Count 1000-10,000 MIXC Mixed contaminants. Submit a new specimen if indicated. Normal [facility] Comment on above: Performed By: #### M 100.2200 #### [facility] [address] [place], [address] [facility]27 Valproate [Mass/Vol] 16.6 ug/mL Low 50.0-100.0 [facility] Comment on above: Order Comment: Speci men Type: BLOOD SPECIMENOrdering Facility: [facility] Address: [address] [place] [address] Result Comment: Refe rence ranges and high/low indicator flags are provided as general guidelines only. The treating physician must determine appropriate target levels/dosing based on the specific clinical situation. Performed By: #### 4 086-5 ####[facility] LABORATORYCLIA [id number] [place] [id number] [place] [facility] 12 Lead EKGon 12-25-2024 12 Lead EKG [facility] [address] [place] [address] 12 Lead EKG 12/25/24 1323 MR#: [id number] Acct: [id number] Name: SHARLA JOINER Rep #: [id number] : 1975 49 From: Luci Lara MD Attending Dr: Status: DEP ER Ordering Dr: Quincy Clarke DO Date: 12/25/24 Location: ED Sex: F C Admitted: Test Reason : Blood Pressure : */* mmHG Vent. Rate : 100 BPM Atrial Rate : 100 BPM P-R Int : 104 ms QRS Dur : 76 ms QT Int : 304 ms P-R-T Axes : 43 -2 45 degrees QTcB Int : 392 ms Sinus rhythm with short GA Otherwise normal ECG Baseline artifact Confirmed by Luci Lara ([id number]), makeup editor ROSE PADRON ([id number]) on 12/27/2024 6:10:43 AM Referred By: Confirmed By: Luci Lara 12/27/2410 Date Luci Lara MD CC: Dr. Desirae Rosario MD; Dr. Quincy Clarke DO Signed Normal [facility] Absolute lymphocyte countOrd ered By: Quincy Clarke on 12-25-2024 Lymphocytes Auto (Unsp spec) [#/Vol] 2.63 10*3/uL 0.83-4.51 [facility] Absolute neutrophil countOrd ered By: Quincy Clarke on 12-25-2024 Neutrophils (Bld) [#/Vol] 3.3 10*3/uL 2.0-7.7 [facility] Amorphous sediment detection in urine sediment by light microscopyOrdered By: Quincy Clarke on 12-25-2024 Amorphous sediment LM Ql (Urine sed) 3+ [facility] Anion gap in Serum or Plasma Ordered By: Quincy Clarke on 12-25-2024 Anion gap [Moles/Vol] 10 mmol/L 5-15 [facility] Automated lymphocyte count a s percentage of total leukocytesOrdered By: Quincy Clarke on 12-25-2024 Lymphocytes/100 WBC Auto (Unsp spec) 36.3 % 19-41 [facility] BUN/creatinine ratioOrdered By: Quincy Clarke on 12-25-2024 Urea nitrogen/Creatinine [Mass ratio] 22.9 mg/mg High 10- [facility] Basophil percentageOrdered B y: Quincy Clarke on 12-25-2024 Basophils/100 WBC (Bld) 0.6 % 0-1 [facility] Bilirubin Test strip Ql (U)O rdered By: Quincy Clarke on 12-25-2024 Bilirubin Ql (U) Negative Negative [facility] Bilirubin, totalOrdered By: Quincy Clarke on 12-25-2024 Bilirubin [Mass/Vol] 0.40 mg/dL 0.00-1.30 [facility] Brain/Head without Contrasto n 12-25-2024 Brain/Head without Contrast [facility] Imaging Services [address] [place] [address] Brain/Head without Contrast MR#: [id number] Acct: [id number] Name: SHARLA JOINER Rep #: [id number] : 1975 F 49 From: Jesus Manuel riggs MD PCP: Abby Carrillo MD Status: PRE ER Study: Brain/Head without Contrast Date of Exam: 12/16 Exam# [id number] Ordering Dr: Quincy Clarke DO PROCEDURE: BRAIN/HEAD WITHOUT CONTRAST 12/25/2024 REASON FOR EXAM: ALTERED MENTAL STATUS TECHNIQUE: Head CT without intravenous contrast. Coronal and Sagittal reconstruction series were provided. One or more dose reduction techniques were used (e.g., Automated exposure control, adjustment of the mA and/or kV according to patient size, use of iterative reconstruction technique. RADIATION DOSE SUMMARY: CTDlvol: 44.99 mGy DLP: 846.73 mGycm COMPARISON: None FINDINGS: Brain: Old lacunar changes seen in the insular cortex of both temporal lobes. CSF Spaces: Mild generalized cerebral atrophy Sinuses/Mastoids: Clear at visualized levels Bones: Hyperostosis frontalis interna. CT/Brain/Head without Contrast IMPRESSION: Tiny old lacune seen in the insular cortex of both temporal lobes. Hyperostosis frontalis interna. Reading Location: [place] [address] CC: Abby Carrillo MD; Dr. Quincy Clarke DO Bilingual Manager: Signed Normal [facility] CBC W/Diff, Automatedon 12-16-2024 Absolute Lymph 2.63 X10 3/uL Normal 0.83-4.51 [facility] Comment on above: Performed By: #### L 500.4050, L100.0100 #### [facility] Laboratory [address] [place], [address] Absolute Neut 3.3 X10 3/uL Normal 2.0-7.7 [facility] Comment on above: Performed By: #### L 500.4050, L100.0100 #### [facility] [address] [place], [address] Basophils/100 WBC (Bld) 0.6 % Normal 0-1 [facility] Comment on above: Performed By: #### L 500.4050, L100.0100 #### [facility] [address] [place], [address] Eosinophils/100 WBC (Bld) 1.7 % Normal 0-5 [facility] Comment on above: Performed By: #### L 500.4050, L100.0100 #### [facility] [address] [place], [address] Erythrocyte distribution width (RBC) [Ratio] 13.1 % Normal 11.6-14.6 [facility] Comment on above: Performed By: #### L 500.4050, L100.0100 #### [facility] [address] [place], [address] Hematocrit (Bld) [Volume fraction] 43.7 % Normal 37-47 [facility] Comment on above: Performed By: #### L 500.4050, L100.0100 #### [facility] [address] [place], [address] Hemoglobin (Bld) [Mass/Vol] 14.3 g/dL Normal 12.0-15.0 [facility] Comment on above: Performed By: #### L 500.4050, L100.0100 #### [facility] [address] [place], [address] IG% 0.300 Normal 0.0-0.9 [facility] Comment on above: Result Comment: IG% - Immature Granulocytes (promyelocytes, myelocytes and metamyelocytes) > 1% indicates that a LEFT SHIFT is Present. Performed By: #### L 500.4050, L100.0100 #### [facility] [address] [place], [address] Lymphocytes/100 WBC (Bld) 36.3 % Normal 19-41 [facility] Comment on above: Performed By: #### L 500.4050, L100.0100 #### [facility] [address] [place], [address] MCH (RBC) [Entitic mass] 31.7 pg Normal 27.0-32.0 [facility] Comment on above: Performed By: #### L 500.4050, L100.0100 #### [facility] [address] [place], [address] MCHC (RBC) [Mass/Vol] 32.7 g/dL Normal 32-36 [facility] Comment on above: Performed By: #### L 500.4050, L100.0100 #### [facility] [address] [place], [address] MCV (RBC) [Entitic vol] 96.9 fL Normal 81-99 [facility] Comment on above: Performed By: #### L 500.4050, L100.0100 #### [facility] [address] [place], [address] Monocytes/100 WBC (Bld) 16.3 % High 0-10 [facility] Comment on above: Performed By: #### L 500.4050, L100.0100 #### [facility] [address] [place], [address] Neutrophils/100 WBC (Bld) 44.8 % Low 47-70 [facility] Comment on above: Performed By: #### L 500.4050, L100.0100 #### [facility] [address] [place], [address] Nucleated RBC (Bld) [#/Vol] 0 10*3/uL Normal 0-5 [facility] Comment on above: Performed By: #### L 500.4050, L100.0100 #### [facility] [address] [place], [address] Platelet mean volume (Bld) [Entitic vol] 9.8 fL Normal 6.2-12.0 [facility] Comment on above: Performed By: #### L 500.4050, L100.0100 #### [facility] [address] [place], [address] Platelets (Bld) [#/Vol] 198 10*3/uL Normal 150-450 [facility] Comment on above: Performed By: #### L 500.4050, L100.0100 #### [facility] [address] [place], [address] RBC (Bld) [#/Vol] 4.51 10*6/uL Normal 4.2-5.4 [facility] Comment on above: Performed By: #### L 500.4050, L100.0100 #### [facility] [address] [place], [address] RDW SD 46.7 fl High 35.1-43.9 [facility] Comment on above: Performed By: #### L 500.4050, L100.0100 #### [facility] [address] [place], [address] WBC (Bld) [#/Vol] 7.3 10*3/uL Normal 4.4-11.0 [facility] Comment on above: Performed By: #### L 500.4050, L100.0100 #### [facility] [address] [place], [address] Carbon dioxide, total [Moles /volume] in Central venous bloodOrdered By: Quincy Clarke on 12-25-2024 CO2 [Moles/Vol] 22.1 mmol/L 21.0-32.0 [facility] Chest 1 View (Portable)on Chest 1 View (Portable) [facility] Imaging Services [address] [place] [address] Chest 1 View (Portable) MR#: [id number] Acct: [id number] Name: SHARLA JOINER Rep #: [id number] : 1975 F 49 From: Jesus Manuel riggs MD PCP: Abby Carrillo MD Status: PRE ER Study: Chest 1 View (Portable) Date of Exam: 12/25/24 Exam# [id number] Ordering Dr: Quincy Clarke DO PROCEDURE: CHEST 1 VIEW (PORTABLE) 12/25/2024 REASON FOR EXAM: ALTERED MENTAL STATUS TECHNIQUE: Frontal view of the chest. COMPARISON: None FINDINGS: Hardware: EKG electrodes are seen. Heart: The heart is nonenlarged. Lungs: Lungs are clear. Bones: The bones are unremarkable. Other: RAD/Chest 1 View (Portable) IMPRESSION: No Acute Findings. Reading Location: [place] [address] CC: Abby Carrillo MD; Dr. Quincy Clarke DO Bilingual Manager: Signed Normal [facility] Chloride assayOrdered By: José Antonio Clrake on 12-25-2024 Chloride [Moles/Vol] 109 mmol/L High 98-108 [facility] Comprehensive Metabolic Prof ilon 12-25-2024 Albumin [Mass/Vol] 3.8 g/dL Normal 3.5-5.0 [facility] Comment on above: Performed By: #### L 500.4050, L100.0100 ####[facility] [address] [place], [address] Albumin/Globulin [Mass ratio] 1.2 {ratio} Normal 0.9-2.4 [facility] Comment on above: Performed By: #### L 500.4050, L100.0100 ####[facility] [address] [place], [address] ALK PHOS 60 U/L Normal 35-104 [facility] Comment on above: Performed By: #### L 500.4050, L100.0100 ####[facility] [address] [place], [address] ALT [Catalytic activity/Vol] 17 U/L Normal <=34 [facility] Comment on above: Result Comment: Hemo lysis present, Results??could be affected. ?? Performed By: #### L 500.4050, L100.0100 ####[facility] [address] [place], [address] AST [Catalytic activity/Vol] 46 U/L High <=31 [facility] Comment on above: Result Comment: Hemo lysis present, Results??could be affected. ?? Performed By: #### L 500.4050, L100.0100 ####[facility] [address] [place], [address] Bilirubin [Mass/Vol] 0.40 mg/dL Normal 0.00-1.30 [facility] Comment on above: Performed By: #### L 500.4050, L100.0100 ####[facility] [address] [place], [address] BUN/CRE 22.9 RATIO High 10-20 [facility] Comment on above: Performed By: #### L 500.4050, L100.0100 ####[facility] [address] [place], [address] Calcium [Mass/Vol] 9.6 mg/dL Normal 7.6-11.0 [facility] Comment on above: Performed By: #### L 500.4050, L100.0100 ####[facility] [address] [place], [address] Chloride [Moles/Vol] 109 mmol/L High 98-108 [facility] Comment on above: Performed By: #### L 500.4050, L100.0100 ####[facility] [address] [place], [address] CO2 [Moles/Vol] 22.1 mmol/L Normal 21.0-32.0 [facility] Comment on above: Performed By: #### L 500.4050, L100.0100 ####[facility] [address] [place], [address] Creatinine [Mass/Vol] 0.68 mg/dL Low 0.70-1.20 [facility] Comment on above: Performed By: #### L 500.4050, L100.0100 ####[facility] [address] [place], [address] ECRCL 99.46 ml/min Normal 50-250 [facility] Comment on above: Performed By: #### L 500.4050, L100.0100 ####[facility] [address] [place], [address] GAP 10 Normal 5-15 [facility] Comment on above: Performed By: #### L 500.4050, L100.0100 ####[facility] [address] [place], [address] GFR/1.73 sq M.predicted among non-blacks MDRD (S/P/Bld) [Vol rate/Area] 108 mL/min/{1.73_m2} Normal >60 [facility] Comment on above: Result Comment: mL/m in/1.73m2 CKD-EPI Creatinine Equation (2020) Performed By: #### L 500.4050, L100.0100 ####[facility] [address] [place], [address] Globulin (S) [Mass/Vol] 3.1 g/dL Normal 2.2-4.2 [facility] Comment on above: Performed By: #### L 500.4050, L100.0100 ####[facility] [address] [place], [address] Glucose [Mass/Vol] 84 mg/dL Normal 70-99 [facility] Comment on above: Performed By: #### L 500.4050, L100.0100 ####[facility] [address] [place], [address] Potassium [Moles/Vol] 4.9 mmol/L Normal 3.3-5.1 [facility] Comment on above: Result Comment: Hemo lysis present, Results??could be affected. ?? Performed By: #### L 500.4050, L100.0100 ####[facility] [address] [place], [address] Sodium [Moles/Vol] 142 mmol/L Normal 133-145 [facility] Comment on above: Performed By: #### L 500.4050, L100.0100 ####[facility] [address] [place], [address] T PROT 6.9 g/dL Normal 5.9-8.4 [facility] Comment on above: Performed By: #### L 500.4050, L100.0100 ####[facility] [address] [place], [address] Urea nitrogen [Mass/Vol] 16 mg/dL Normal 4-19 [facility] Comment on above: Performed By: #### L 500.4050, L100.0100 ####[facility] [address] [place], [address] Emergency Department Summary on 12-25-2024 Emergency Department Summary [facility] Medical Records Department [address] [place] [address] Emergency Department Summary 12/25/24 MR#: [id number] Acct: [id number] Name: SHARLA JOINER Rep #: [id number] : 1975 49 From: Quincy Rocha PCP: Dr. Desirae Rosario MD Status:DEP ER Location: ED HPI History of Present Illness Chief Complaint: Mental Status Change Informant: parent Narrative Narrative: Patient sent by EMS from Health system for increasing altered mental status. History of bipolar, autism, parents are present states function no was at a shelter. Parent states on of last month went to urgent care for nausea was put on Zofran. The following day follow-up with PCP decompensation on that day was sent to the emergency department. Patient admitted at [facility] on the discharged 5 days ago little over 2 weeks today. Parents reports multiple workups and seen by neurology. They states CT scans EEG were all negative. Patient was ambulatory prior to hospitalization. Since then has been in bed and less conversational. They states undiagnosed findings. Reported MRI was ordered by neurology and due to patient inability to keep her head down, they did not perform this. She was discharged to assisted facility 5 days ago. They report physical therapy was working with her she would take a couple steps if she is sitting in a chair at the facility. She seemed to start to improve prior to transfer to assisted facility. Today reported at breakfast she may have choked on eggs. She had worsening mental status while there. She was sent in here by practitioner there for potential stroke. Parents reports she was not her normal baseline when she was discharged to assisted facility. There has been no cough. Prior similar symptoms: Yes PFSH PFSH Home Medications ???Medication ???Instructions ???Recorded ???Last Taken ???Type acetaminophen 500 mg tablet 500 mg PO Q8H PRN fever or pain Unknown History amantadine HCl 100 mg capsule 100 mg PO BID 12/25/24 Unknown His tory aspirin 81 mg chewable tablet 1 tab PO DAILY 12/25/24 Unknown Hi story atropine 1 % eye drops 2 drp sublingual BID 12/25/24 Unkn own History cephalexin 500 mg capsule 500 mg PO Q6 #12 CAPSULES 12/25/24 Unknown Rx cholecalciferol (vitamin D3) 50 50 mcg PO DAILY 12/25/24 Unknown H istory mcg (2,000 unit) capsule (Vitamin D3) divalproex 500 mg tablet,delayed 500 mg PO BID 12/25/24 Unknown His tory release docusate sodium 100 mg capsule 100 mg PO DAILY 12/25/24 Unknown H istory (Colace) fludrocortisone 0.1 mg tablet 0.2 mg PO BID 12/25/24 Unknown His tory fluoride (sodium) 1.1 % dental gel 1 applic dental QHS 12/25/24 Unk nown History (DentaGel) loperamide 2 mg capsule 2 mg PO Q8H PRN loose stool Unknown History (Anti-Diarrheal (loperamide)) melatonin 5 mg chewable tablet 5 mg PO QHS 12/25/24 Unknown Histo ry midodrine 5 mg tablet 10 mg PO BID 12/25/24 Unknown Hist ory montelukast 10 mg tablet 10 mg PO DAILY 12/25/24 Unknown Hi story pantoprazole 40 mg tablet,delayed 40 mg PO DAILY 12/25/24 Unknown H istory release polyethylene glycol 3350 17 17 g PO DAILY PRN constipation 05/11 Unknown History gram/dose oral powder (ClearLax) risperidone 1 mg tablet 1 mg PO Q12H PRN anxiety 12/25/24 Unknown History trazodone 50 mg tablet 50 mg PO QHS 12/25/24 Unknown Hist ory Allergy/AdvReac Type Severity Reaction Status Date / Time No Known Allergies Allergy Verified 12/25/24 12:37 Social History Smoking Status: Never smoker ROS ROS ED Review of Systems ROS Unobtainable: due to mental condition EXAM Physical Exam Const Vital Signs: 12/25/24 12:29 12/25/24 13:27 12/25/24 14:00 Temperature 97.4 F L Temperature Source Oral Pulse Rate 100 99 99 Respiratory Rate 15 18 18 Blood Pressure 121/66 H 120/108 H 118/90 H Blood Pressure Mean 84 112 99 Pulse Ox 98 99 99 Oxygen Delivery Method Room Air Room Air Room Air 12/25/24 15:29 12/25/24 16:11 12/25/24 19:00 Temperature 98.6 F Temperature Source Oral Pulse Rate 91 101 H 88 Respiratory Rate 18 18 14 Blood Pressure 108/70 127/67 H 101/43 L Blood Pressure Mean 82 87 62 Pulse Ox 97 99 98 Oxygen Delivery Method Room Air Room Air 12/25/24 19:46 12/25/24 20:00 Temperature 98.6 F Temperature Source Pulse Rate 88 88 Respiratory Rate 14 Blood Pressure 101/43 L 119/64 Blood Pressure Mean 62 82 Pulse Ox 98 94 Oxygen Delivery Method Constitutional Narrative: Lying in bed nontoxic, patient unable to follow commands. Slight Contractures of the upper extremit (more content not included)... Normal [facility] Eosinophil percentageOrdered By: Qiuncy Clarke on 12-25-2024 Eosinophils/100 WBC (Bld) 1.7 % 0-5 [facility] Erythrocyte distribution wid th ratioOrdered By: Quincy Clarke on 12-25-2024 Erythrocyte distribution width (RBC) [Ratio] 13.1 % 11.6-14.6 [facility] Erythrocyte distribution wid th standard deviationOrdered By: Quincy Clarke on 12-25-2024 Erythrocyte distribution width (RBC) [Ratio] 46.7 fl High 35.1-43.9 [facility] Glomerular filtration rate ( GFR) estimation/1.73 sq m using serum, plasma, or whole bOrdered By: Quincy Clarke on 12-25-2024 GFR/1.73 sq M.predicted among non-blacks MDRD (S/P/Bld) [Vol rate/Area] 108 mL/min/{1.73_m2} >60 [facility] Comment on above: mL/min/1.73m2 CKD-EP I Creatinine Equation (2020) Hematocrit Auto (Bld) [Volum e fraction]Ordered By: Quincy Clarke on 12-25-2024 Hematocrit (Bld) [Volume fraction] 43.7 % 37-47 [facility] Hemoglobin measurementOrdere d By: Quincy Clarke on 12-25-2024 Hemoglobin (Bld) [Mass/Vol] 14.3 g/dL 12.0-15.0 [facility] Immature granulocytes/100 WB C Auto (Bld)Ordered By: Quincy Clarke on 12-25-2024 Immature granulocytes/100 WBC (Bld) 0.300 % 0.0-0.9 [facility] Comment on above: IG% - Immature Granu locytes (promyelocytes, myelocytes and metamyelocytes) > 1% indicates that a LEFT SHIFT is Present. Ketones Test strip Ql (U)Ord ered By: Quincy Clarke on 12-25-2024 Ketones Ql (U) 5 mg/dl High Negative [facility] - Chemistry and C hemistry - challengeOrdered By: Quincy Clarke on 12-25-2024 AST [Catalytic activity/Vol] 46 U/L High <32 [facility] Comment on above: Hemolysis present, R esults could be affected. MCV (mean corpuscular volume ) determinationOrdered By: uQincy Clarke on 12-25-2024 MCV (RBC) [Entitic vol] 96.9 fL 81-99 [facility] Mean corpuscular hemoglobin (MCH) determinationOrdered By: Quincy Clarke on 12-25-2024 MCH (RBC) [Entitic mass] 31.7 pg 27.0-32.0 [facility] Mean corpuscular hemoglobin concentration (MCHC) determinationOrdered By: Quincy Clarke on 12-25-2024 MCHC (RBC) [Mass/Vol] 32.7 g/dL 32-36 [facility] Mean platelet volume determi nationOrdered By: Quincy Clarke on 12-25-2024 Platelet mean volume (Bld) [Entitic vol] 9.8 fL 6.2-12.0 [facility] Microscopic analysis of urin e for red blood cells (RBC)Ordered By: Quincy Clarke on 12-25-2024 Microscopic analysis of urine for red blood cells (RBC) 0-5 SEEN /hpf 0-5 [facility] Monocyte percentageOrdered B y: Quincy Clarke on 12-25-2024 Monocytes/100 WBC (Bld) 16.3 % High 0-10 [facility] Mucus LM Ql (Urine sed)Order ed By: Quincy Clarke on 12-25-2024 Mucus Ql (Urine sed) 0 SEEN /hpf [facility] Neutrophil percentageOrdered By: Quincy Clarke on 12-25-2024 Neutrophils/100 WBC (Bld) 44.8 % Low 47-70 [facility] Nitrite Test strip Ql (U)Ord ered By: Quincy Clarke on 12-25-2024 Nitrite Ql (U) Negative Negative [facility] Nucleated red blood cell per centageOrdered By: Quincy Clarke on 12-25-2024 Nucleated RBC/100 WBC (Bld) [Ratio] 0 % 0-5 [facility] Platelet countOrdered By: José Antonio caro Clarke on 12-25-2024 Platelets (Bld) [#/Vol] 198 10*3/uL 150-450 [facility] Potassium measurement (mass/ volume)Ordered By: Quincy Clarke on 12-25-2024 Potassium (Unsp spec) [Mass/Vol] 4.9 mmol/L 3.3-5.1 [facility] Comment on above: Hemolysis present, R esults could be affected. Protein Test strip Ql (U)Ord ered By: Quincy Clarke on 12-25-2024 Protein Ql (U) 30 mg/dl High Negative [facility] RBC Auto (Bld) [#/Vol]Ordere d By: Quincy Clarke on 12-25-2024 RBC (Bld) [#/Vol] 4.51 10*6/uL 4.2-5.4 [facility] Serum creatinine measurement (mass/volume)Ordered By: Quincy Clarke on 12-25-2024 Creatinine [Mass/Vol] 0.68 mg/dL Low 0.70-1.20 [facility] Serum globulin measurementOr dered By: Quincy Clarke on 12-25-2024 Globulin (S) [Mass/Vol] 3.1 g/dL 2.2-4.2 [facility] Serum glucose measurement (m ass/volume)Ordered By: Quincy Clarke on 12-25-2024 Glucose [Mass/Vol] 84 mg/dL 70-99 [facility] Serum or plasma alanine perea otransferase (ALT) measurementOrdered By: Quincy Clarke on 12-25-2024 ALT [Catalytic activity/Vol] 17 U/L <35 [facility] Comment on above: Hemolysis present, R esults could be affected. Serum or plasma albumin mikie urement (mass/volume)Ordered By: Quincy Clarke on 12-25-2024 Albumin [Mass/Vol] 3.8 g/dL 3.5-5.0 [facility] Serum or plasma albumin/glob ulin mass ratioOrdered By: Quincy Clarke on 12-25-2024 Albumin/Globulin [Mass ratio] 1.2 {ratio} 0.9-2.4 [facility] Serum or plasma alkaline evelyn sphatase measurementOrdered By: Quincy Clarke on 12-25-2024 ALP [Catalytic activity/Vol] 60 U/L 35-104 [facility] Serum or plasma calcium mikie urement (mass/volume)Ordered By: Quincy Clarke on 12-25-2024 Calcium [Mass/Vol] 9.6 mg/dL 7.6-11.0 [facility] Serum or plasma urea nitroge n measurement (mass/volume)Ordered By: Quincy Clarke on 12-25-2024 Urea nitrogen [Mass/Vol] 16 mg/dL 4-19 [facility] Sodium levelOrdered By: Quincy Clarke on 12-25-2024 Sodium [Moles/Vol] 142 mmol/L 133-145 [facility] Squamous epithelial cells de tection in urine sediment by light microscopyOrdered By: Quincy Clarke on 12-25-2024 Epithelial cells.squamous LM Ql (Urine sed) 0-5 SEEN /hpf 5-10 [facility] Total proteinOrdered By: Romelia Clarke on 12-25-2024 Protein [Mass/Vol] 6.9 g/dL 5.9-8.4 [facility] Transitional cells detection in urine sediment by light microscopyOrdered By: Quincy Clarke on 12-25-2024 Transitional cells LM Ql (Urine sed) 0-5 SEEN /hpf 0-5 [facility] Urinalysis, Completeon 12-25 AMORPHOUS 3+ Normal [facility] Comment on above: Order Comment: COLLE CTOR TO SPECIFY Performed By: #### L 400.0001 #### [facility] [address] [place], [address] BACTERIA 2+ /hpf Normal None Seen [facility] Comment on above: Order Comment: PAULO CTOR TO SPECIFY Performed By: #### L 400.0001 #### [facility] [address] [place], [address] EPI,SQUAMOUS 0-5 SEEN Normal 5-10 [facility] Comment on above: Order Comment: PAULO CTOR TO SPECIFY Performed By: #### L 400.0001 #### [facility] [address] [place], [address] EPI,TRANSITION 0-5 SEEN Normal 0-5 [facility] Comment on above: Order Comment: PAULO CTOR TO SPECIFY Performed By: #### L 400.0001 #### [facility] [address] [place], [address] RBC 0-5 SEEN Normal 0-5 [facility] Comment on above: Order Comment: PAULO CTOR TO SPECIFY Performed By: #### L 400.0001 #### [facility] [address] [place], [address] WBC 10-25 SEEN Normal 0-5 [facility] Comment on above: Order Comment: PAULO CTOR TO SPECIFY Performed By: #### L 400.0001 #### [facility] [address] [place], [address] Mucus Ql (Urine sed) 0 SEEN Normal [facility] Comment on above: Order Comment: PAULO CTOR TO SPECIFY Performed By: #### L 400.0001 #### [facility] [address] [place], [address] Urine clarityOrdered By: Romelia Clarke on 12-25-2024 Clarity (U) Cloudy Clear [facility] Urine color determinationOrd ered By: Quincy Clarke on 12-25-2024 Color (U) Yellow Yellow [facility] Urine cultureOrdered By: Romelia Clarke on 12-25-2024 Bacteria identified Cx Nom (U) Mixed Gram Pos & Gram Neg Org Abnormal [facility] Urine glucose detectionOrder ed By: Quincy Clarke on 12-25-2024 Glucose Ql (U) Normal mg/dl Normal [facility] Urine leukocyte esterase det ection by dipstickOrdered By: Quincy Clarke on 12-25-2024 Leukocyte esterase Test strip Ql (U) 100 /ul High Negative [facility] Urine pHOrdered By: Quincy Clarke on 12-25-2024 pH (U) 7.0 [pH] 5.0 - 8.0 [facility] Urine sediment bacteria coun t by microscopy (number/high power field)Ordered By: Quincy Clarke on 12-25-2024 Bacteria LM.HPF (Urine sed) [#/Area] 2 /[HPF] None Seen [facility] Urine specific gravity measu rementOrdered By: Quincy Clarke on 12-25-2024 Specific gravity (U) [Rel density] 1.015 1.002-1.03 0 [facility] Urine urobilinogen measureme ntOrdered By: Quincy Clarke on 12-25-2024 Urobilinogen Ql (U) 8 mg/dl High Normal [facility] White blood cell (WBC) count Ordered By: Quincy Clarke on 12-25-2024 WBC (Bld) [#/Vol] 7.3 10*3/uL 4.4-11.0 [facility] White blood cell countOrdere d By: Quincy Clarke on 12-25-2024 White blood cell count 10-25 SEEN /hpf 0-5 [facility] CASE MANAGEMon 12-20-2024 CASE MANAGEM [facility] CASE MANAGEM [facility] CNDSon 12-20-2024 CNDS [facility] CBC W Auto Differential pane l (Bld)on 12-19-2024 Basophils (Bld) [#/Vol] 0.04 10*3/uL Normal <0.11 [facility] Comment on above: Order Comment: Speci men Type: BLOOD SPECIMENOrdering Facility: [facility] Address: [address] [place], [place] [address] Performed By: #### 5 7021-8 ####[facility] LABORATORYCLIA [id number] [place] [address] [place] Basophils/100 WBC (Bld) 0.5 % Normal [facility] Comment on above: Order Comment: Speci men Type: BLOOD SPECIMENOrdering Facility: [facility] Address: [address] [place] [address] Performed By: #### 5 7021-8 ####[facility] LABORATORYCLIA [id number] [place] [address] [place] Differential cell count method Nom (Bld) Auto Normal [facility] Comment on above: Order Comment: Speci men Type: BLOOD SPECIMENOrdering Facility: [facility] Address: [address] [place] [address] Performed By: #### 5 7021-8 ####[facility] LABORATORYCLIA [id number] [place] [address] [place] Eosinophils (Bld) [#/Vol] 0.04 10*3/uL Normal <0.46 [facility] Comment on above: Order Comment: Speci men Type: BLOOD SPECIMENOrdering Facility: [facility] Address: [address] [place] [address] Performed By: #### 5 7021-8 ####[facility] LABORATORYCLIA [id number] [address] [place] Eosinophils/100 WBC (Bld) 0.5 % Normal [facility] Comment on above: Order Comment: Speci men Type: BLOOD SPECIMENOrdering Facility: [facility] Address: [address] [place] [place] [address] Performed By: #### 5 7021-8 ####[facility] LABORATORYCLIA [id number] [address] [place] Erythrocyte distribution width (RBC) [Ratio] 13.2 % Normal 11.5-15.0 [facility] Comment on above: Order Comment: Speci men Type: BLOOD SPECIMENOrdering Facility: [facility] Address: [address] [place] [address] Performed By: #### 5 7021-8 ####[facility] LABORATORYCLIA [id number] [place] [id number] [place] Hematocrit (Bld) [Volume fraction] 45.4 % Normal 36.0-46.0 [facility] Comment on above: Order Comment: Speci men Type: BLOOD SPECIMENOrdering Facility: [facility] Address: [address] [place] [address] Performed By: #### 5 7021-8 ####[facility] LABORATORYCLIA [id number] [place] [address] [place] Hemoglobin (Bld) [Mass/Vol] 15.2 g/dL Normal 11.5-15.5 [facility] Comment on above: Order Comment: Speci men Type: BLOOD SPECIMENOrdering Facility: [facility] Address: [address] [place] [address] Performed By: #### 5 7021-8 ####[facility] LABORATORYCLIA [id number] [place] [address] [place] Immature granulocytes (Bld) [#/Vol] 0.08 10*3/uL Normal <0.10 [facility] Comment on above: Order Comment: Speci men Type: BLOOD SPECIMENOrdering Facility: [facility] Address: [address] [place] [address] Performed By: #### 5 7021-8 ####[facility] LABORATORYCLIA [id number] [place] [address] [place] Immature granulocytes/100 WBC (Bld) 0.9 % Normal [facility] Comment on above: Order Comment: Speci men Type: BLOOD SPECIMENOrdering Facility: [facility] Address: [address] [place] [address] Performed By: #### 5 7021-8 ####[facility] LABORATORYCLIA [id number] [place] [id number] [place] Lymphocytes (Bld) [#/Vol] 2.38 10*3/uL Normal 1.00-4.00 [facility] Comment on above: Order Comment: Speci men Type: BLOOD SPECIMENOrdering Facility: [facility] Address: [address] [place] [address] Performed By: #### 5 7021-8 ####[facility] LABORATORYCLIA [id number] [place] [address] [place] Lymphocytes/100 WBC (Bld) 28.0 % Normal [facility] Comment on above: Order Comment: Speci men Type: BLOOD SPECIMENOrdering Facility: [facility] Address: [address] [place] [address] Performed By: #### 5 7021-8 ####[facility] LABORATORYCLIA [id number] [place] [address] [place] MCH (RBC) [Entitic mass] 31.7 pg Normal 26.0-34.0 [facility] Comment on above: Order Comment: Speci men Type: BLOOD SPECIMENOrdering Facility: [facility] Address: [address] [place] [address] Performed By: #### 5 7021-8 ####[facility] LABORATORYCLIA [id number] [address] [place] MCHC (RBC) [Mass/Vol] 33.5 g/dL Normal 30.5-36.0 [facility] Comment on above: Order Comment: Speci men Type: BLOOD SPECIMENOrdering Facility: [facility] Address: [address] [place] [address] Performed By: #### 5 7021-8 ####[facility] LABORATORYCLIA [id number] [place] [address] [place] MCV (RBC) [Entitic vol] 94.6 fL Normal 80.0-100.0 [facility] Comment on above: Order Comment: Speci men Type: BLOOD SPECIMENOrdering Facility: [facility] Address: [address] [place] [address] Performed By: #### 5 7021-8 ####[facility] LABORATORYCLIA [id number] [place] [address] [place] Monocytes (Bld) [#/Vol] 1.06 10*3/uL High <0.87 [facility] Comment on above: Order Comment: Speci men Type: BLOOD SPECIMENOrdering Facility: [facility] Address: [address] [place] [address] Performed By: #### 5 7021-8 ####[facility] LABORATORYCLIA [id number] [place] [id number] [place] Monocytes/100 WBC (Bld) 12.5 % Normal [facility] Comment on above: Order Comment: Speci men Type: BLOOD SPECIMENOrdering Facility: [facility] Address: [address] [place] [address] Performed By: #### 5 7021-8 ####[facility] LABORATORYCLIA [id number] [place] [address] [place] Neutrophils (Bld) [#/Vol] 4.91 10*3/uL Normal 1.45-7.50 [facility] Comment on above: Order Comment: Speci men Type: BLOOD SPECIMENOrdering Facility: [facility] Address: [address] [place] [address] Performed By: #### 5 7021-8 ####[facility] LABORATORYCLIA [id number] [place] [address] [place] Neutrophils/100 WBC (Bld) 57.6 % Normal [facility] Comment on above: Order Comment: Speci men Type: BLOOD SPECIMENOrdering Facility: [facility] Address: [address] [place] [address] Performed By: #### 5 7021-8 ####[facility] LABORATORYCLIA [id number] [place] [id number] [place] Nucleated RBC (Bld) [#/Vol] 10*3/uL Normal <0.01 [facility] Comment on above: Order Comment: Speci men Type: BLOOD SPECIMENOrdering Facility: [facility] Address: [address] [place] [address] Performed By: #### 5 7021-8 ####[facility] LABORATORYCLIA [id number] [place] [address] [place] Nucleated RBC/100 WBC (Bld) [Ratio] 0.0 /100 WBC Normal [facility] Comment on above: Order Comment: Speci men Type: BLOOD SPECIMENOrdering Facility: [facility] Address: [address] [place] [address] Performed By: #### 5 7021-8 ####[facility] LABORATORYCLIA [id number] [place] [id number] [place] Platelet mean volume (Bld) [Entitic vol] 9.1 fL Normal 9.0-12.7 [facility] Comment on above: Order Comment: Speci men Type: BLOOD SPECIMENOrdering Facility: [facility] Address: [address] [place] [address] Performed By: #### 5 7021-8 ####[facility] LABORATORYCLIA [id number] [place] [id number] [place] Platelets (Bld) [#/Vol] 144 10*3/uL Low 150-400 [facility] Comment on above: Order Comment: Speci men Type: BLOOD SPECIMENOrdering Facility: [facility] Address: [address] [place] [address] Performed By: #### 5 7021-8 ####[facility] LABORATORYCLIA [id number] [place] [address] [place] RBC (Bld) [#/Vol] 4.80 10*6/uL Normal 3.90-5.20 [facility] Comment on above: Order Comment: Speci men Type: BLOOD SPECIMENOrdering Facility: [facility] Address: [address] [place] [address] Performed By: #### 5 7021-8 ####[facility] LABORATORYCLIA [id number] [place] [id number] [place] WBC (Bld) [#/Vol] 8.51 10*3/uL Normal 3.70-11.00 [facility] Comment on above: Order Comment: Speci men Type: BLOOD SPECIMENOrdering Facility: [facility] Address: [address] [place] [address] Performed By: #### 5 7021-8 ####[facility] LABORATORYCLIA [id number] [place] [id number] [place] CONSULT PROGon 12-19-2024 CONSULT PROG Normal [facility] Comprehensive metabolic 2000 panelon 12-19-2024 Albumin [Mass/Vol] 3.5 g/dL Normal 3.2-5.0 [facility] Comment on above: Order Comment: Speci men Type: BLOOD SPECIMENOrdering Facility: [facility] Address: [address] [place] [address] Performed By: #### 2 4323-8 ####[facility] LABORATORYCLIA [id number] [address] [place] ALP [Catalytic activity/Vol] 59 U/L Normal 45-117 [facility] Comment on above: Order Comment: Speci men Type: BLOOD SPECIMENOrdering Facility: [facility] Address: [address] [place] [address] Performed By: #### 2 4323-8 ####[facility] LABORATORYCLIA [id number] [address] [place] ALT [Catalytic activity/Vol] 12 U/L Low 13-61 [facility] Comment on above: Order Comment: Speci men Type: BLOOD SPECIMENOrdering Facility: [facility] Address: [address] [place] [address] Result Comment: Resu lts may be falsely depressed after the administration of Sulfasalazine and/or Sulfapyridine. Performed By: #### 2 4323-8 ####[facility] LABORATORYCLIA [id number] [place] [id number] [place] Anion gap [Moles/Vol] 9 mmol/L Normal 5-16 [facility] Comment on above: Order Comment: Speci men Type: BLOOD SPECIMENOrdering Facility: [facility] Address: [address] [place] [address] Performed By: #### 2 4323-8 ####[facility] LABORATORYCLIA [id number] [place] [address] [place] AST [Catalytic activity/Vol] 18 U/L Normal 8-34 [facility] Comment on above: Order Comment: Speci men Type: BLOOD SPECIMENOrdering Facility: [facility] Address: [address] [place] [address] Result Comment: Resu lts may be falsely depressed after the administration of Sulfasalazine and/or Sulfapyridine. Performed By: #### 2 4323-8 ####[facility] LABORATORYCLIA [id number] [place] [address] [place] Bilirubin [Mass/Vol] 0.6 mg/dL Normal 0.2-1.0 [facility] Comment on above: Order Comment: Speci men Type: BLOOD SPECIMENOrdering Facility: [facility] Address: [address] [place] [address] Performed By: #### 2 4323-8 ####[facility] LABORATORYCLIA [id number] [place] [address] [place] Calcium [Mass/Vol] 9.3 mg/dL Normal 8.5-10.5 [facility] Comment on above: Order Comment: Speci men Type: BLOOD SPECIMENOrdering Facility: [facility] Address: [address] [place] [address] Performed By: #### 2 4323-8 ####[facility] LABORATORYCLIA [id number] [place] [address] [place] Chloride [Moles/Vol] 108 mmol/L High 98-107 [facility] Comment on above: Order Comment: Speci men Type: BLOOD SPECIMENOrdering Facility: [facility] Address: [address] [place] [address] Performed By: #### 2 4323-8 ####[facility] LABORATORYCLIA [id number] [place] [address] [place] CO2 [Moles/Vol] 27 mmol/L Normal 21-32 [facility] Comment on above: Order Comment: Speci men Type: BLOOD SPECIMENOrdering Facility: [facility] Address: [address] [place] [address] Performed By: #### 2 4323-8 ####[facility] LABORATORYCLIA [id number] [place] [id number] [place] Creatinine [Mass/Vol] 0.63 mg/dL Normal 0.51-0.95 [facility] Comment on above: Order Comment: Speci men Type: BLOOD SPECIMENOrdering Facility: [facility] Address: [address] [place] [address] Result Comment: Marilin ents receiving either N-Acetylcysteine (NAC) or Metamizole prior to venipuncture, may have falsely depressed results. Performed By: #### 2 4323-8 ####[facility] LABORATORYCLIA [id number] [address] Creatinine and Glomerular filtration rate.predicted panel (S/P/Bld) 110 mL/min/1.73m??? Normal >=60 [facility] Comment on above: Order Comment: Speci men Type: BLOOD SPECIMENOrdering Facility: [facility] Address: [address] [place] [address] Result Comment: Chrissy mated Glomerular Filtration Rate (eGFR) is calculated using the 2020 CKD-EPI creatinine equation. This equation utilizes serum creatinine, sex, and age as parameters. The creatinine assay has traceable calibration to isotope dilution-mass spectrometry. Refer to KDIGO guidelines for clinical interpretation. In patients with unstable renal function, e.g. those with acute kidney injury, the eGFR may not accurately reflect actual GFR. Performed By: #### 2 4323-8 ####[facility] LABORATORYCLIA [id number] [place] [address] [place] Glucose [Mass/Vol] 102 mg/dL High 70-100 [facility] Comment on above: Order Comment: Irmai richard Type: BLOOD SPECIMENOrdering Facility: [facility] Address: [address] [place] [address] Result Comment: The [place] [employer] (ADA) provides guidance for cutoff values for fasting glucose and random glucose. The ADA defines fasting as no caloric intake for at least 8 hours. Fasting plasma glucose results between 100 to 125 mg/dL indicate increased risk for diabetes (prediabetes).Fasting plasma glucose results greater than or equal to 126 mg/dL meet the criteria for diagnosis of diabetes. In the absence of unequivocal hyperglycemia, results should be confirmed by repeat testing. In a patient with classic symptoms of hyperglycemia or hyperglycemic crisis, random plasma glucose results greater than or equal to 200 mg/dL meet the criteria for diagnosis of diabetes.Reference: Standards of Medical Care in Diabetes 2016, [place] [employer]. Diabetes Care. 2016.39(Suppl 1).Results may be falsely elevated after the administration of Sulfapyridine.Results may be falsely depressed after the administration of Sulfasalazine. Performed By: #### 2 4323-8 ####[facility] LABORATORYCLIA [id number] [place] [address] [place] Potassium [Moles/Vol] 4.1 mmol/L Normal 3.5-5.1 [facility] Comment on above: Order Comment: Speci men Type: BLOOD SPECIMENOrdering Facility: [facility] Address: [address] [place] [place] [address] Performed By: #### 2 4323-8 ####[facility] LABORATORYCLIA [id number] [place] [address] [place] Protein [Mass/Vol] 7.3 g/dL Normal 6.0-8.5 [facility] Comment on above: Order Comment: Speci men Type: BLOOD SPECIMENOrdering Facility: [facility] Address: [address] [place] [address] Performed By: #### 2 4323-8 ####[facility] LABORATORYCLIA [id number] [place] [address] [place] Sodium [Moles/Vol] 144 mmol/L Normal 136-145 [facility] Comment on above: Order Comment: Speci men Type: BLOOD SPECIMENOrdering Facility: [facility] Address: [address] [place] [address] Performed By: #### 2 4323-8 ####[facility] LABORATORYCLIA [id number] [place] [address] [place] Urea nitrogen [Mass/Vol] 11 mg/dL Normal 7-26 [facility] Comment on above: Order Comment: Speci men Type: BLOOD SPECIMENOrdering Facility: [facility] Address: [address] [place] [id number] Performed By: #### 2 4323-8 ####[facility] LABORATORYCLIA [id number] [place] [id number] [place] THERAPY NTon 12-18-2024 THERAPY NT [facility] THERAPY NT [facility] CASE MANAGEMon 12-17-2024 CASE MANAGEM Normal [facility] CONSULT PROGon 12-17-2024 CONSULT PROG [facility] THERAPY NTon 12-17-2024 THERAPY NT [facility] CONSULT PROGon 12-16-2024 CONSULT PROG [facility] THERAPY on 12-14-2024 THERAPY NT [facility] Basic metabolic 2000 panelon 12-13-2024 Anion gap [Moles/Vol] 8 mmol/L Normal 5-16 [facility] Comment on above: Order Comment: Speci men Type: BLOOD SPECIMENOrdering Facility: [facility] Address: [address] [place] [address] Performed By: #### 2 4321-2 ####[facility] LABORATORYCLIA [id number] [place] [address] [place] Calcium [Mass/Vol] 9.7 mg/dL Normal 8.5-10.5 [facility] Comment on above: Order Comment: Speci men Type: BLOOD SPECIMENOrdering Facility: [facility] Address: [address] [place] [address] Performed By: #### 2 4321-2 ####[facility] LABORATORYCLIA [id number] [place] [address] [place] Chloride [Moles/Vol] 109 mmol/L High 98-107 [facility] Comment on above: Order Comment: Speci men Type: BLOOD SPECIMENOrdering Facility: [facility] Address: [address] [place], [place] [address] [place] [address] Performed By: #### 2 4321-2 ####[facility] LABORATORYCLIA [id number] [place] [address] [place] CO2 [Moles/Vol] 28 mmol/L Normal 21-32 [facility] Comment on above: Order Comment: Speci men Type: BLOOD SPECIMENOrdering Facility: [facility] Address: [address] [place] [place] [address] Performed By: #### 2 4321-2 ####[facility] LABORATORYCLIA [id number] [place] [address] [place] Creatinine [Mass/Vol] 0.64 mg/dL Normal 0.51-0.95 [facility] Comment on above: Order Comment: Speci men Type: BLOOD SPECIMENOrdering Facility: [facility] Address: [address] [place] [address] Result Comment: Marilin ents receiving either N-Acetylcysteine (NAC) or Metamizole prior to venipuncture, may have falsely depressed results. Performed By: #### 2 4321-2 ####[facility] LABORATORYCLIA [id number] [address] [facility] Creatinine and Glomerular filtration rate.predicted panel (S/P/Bld) 110 mL/min/1.73m??? Normal >=60 [facility] Comment on above: Order Comment: Speci men Type: BLOOD SPECIMENOrdering Facility: [facility] Address: [address] [place] [address] Result Comment: Chrissy mated Glomerular Filtration Rate (eGFR) is calculated using the 2020 CKD-EPI creatinine equation. This equation utilizes serum creatinine, sex, and age as parameters. The creatinine assay has traceable calibration to isotope dilution-mass spectrometry. Refer to KDIGO guidelines for clinical interpretation. In patients with unstable renal function, e.g. those with acute kidney injury, the eGFR may not accurately reflect actual GFR. Performed By: #### 2 4321-2 ####[facility] LABORATORYCLIA [id number] [place] [id number] [place] Glucose [Mass/Vol] 87 mg/dL Normal 70-100 [facility] Comment on above: Order Comment: Syd ramos Type: BLOOD SPECIMENOrdering Facility: [facility] Address: [address] [place] [address] Result Comment: The [place] [employer] (ADA) provides guidance for cutoff values for fasting glucose and random glucose. The ADA defines fasting as no caloric intake for at least 8 hours. Fasting plasma glucose results between 100 to 125 mg/dL indicate increased risk for diabetes (prediabetes).Fasting plasma glucose results greater than or equal to 126 mg/dL meet the criteria for diagnosis of diabetes. In the absence of unequivocal hyperglycemia, results should be confirmed by repeat testing. In a patient with classic symptoms of hyperglycemia or hyperglycemic crisis, random plasma glucose results greater than or equal to 200 mg/dL meet the criteria for diagnosis of diabetes.Reference: Standards of Medical Care in Diabetes 2016, [place] [employer]. Diabetes Care. 2016.39(Suppl 1).Results may be falsely elevated after the administration of Sulfapyridine.Results may be falsely depressed after the administration of Sulfasalazine. Performed By: #### 2 4321-2 ####[facility] LABORATORYCLIA [id number] [place] [address] [place] Potassium [Moles/Vol] 3.5 mmol/L Normal 3.5-5.1 [facility] Comment on above: Order Comment: Syd ramos Type: BLOOD SPECIMENOrdering Facility: [facility] Address: [address] [place] [address] Performed By: #### 2 4321-2 ####[facility] LABORATORYCLIA [id number] [place] [address] [place] Sodium [Moles/Vol] 145 mmol/L Normal 136-145 [facility] Comment on above: Order Comment: Syd ramos Type: BLOOD SPECIMENOrdering Facility: [facility] Address: [address] [place] [address] Performed By: #### 2 4321-2 ####[facility] LABORATORYCLIA [id number] [place] [address] [place] Urea nitrogen [Mass/Vol] 13 mg/dL Normal 7-26 [facility] Comment on above: Order Comment: Speci men Type: BLOOD SPECIMENOrdering Facility: [facility] Address: [address] [place] [address] Performed By: #### 2 4321-2 ####[facility] LABORATORYCLIA [id number] [place] [id number] [place] CASE MANAGEMon 12-13-2024 CASE MANAGEM Normal [facility] CBC panel Auto (Bld)on 12-13 Erythrocyte distribution width (RBC) [Ratio] 13.1 % Normal 11.5-15.0 [facility] Comment on above: Order Comment: Speci men Type: BLOOD SPECIMENOrdering Facility: [facility] Address: [address] [place] [place] [address] Performed By: #### 5 8410-2 ####[facility] LABORATORYCLIA [id number] [address] [place] Hematocrit (Bld) [Volume fraction] 40.6 % Normal 36.0-46.0 [facility] Comment on above: Order Comment: Speci men Type: BLOOD SPECIMENOrdering Facility: [facility] Address: [address] [place] [address] Performed By: #### 5 8410-2 ####[facility] LABORATORYCLIA [id number] [place] [id number] [place] Hemoglobin (Bld) [Mass/Vol] 13.9 g/dL Normal 11.5-15.5 [facility] Comment on above: Order Comment: Speci men Type: BLOOD SPECIMENOrdering Facility: [facility] Address: [address] [place] [address] Performed By: #### 5 8410-2 ####[facility] LABORATORYCLIA [id number] [place] [id number] [place] MCH (RBC) [Entitic mass] 32.0 pg Normal 26.0-34.0 [facility] Comment on above: Order Comment: Speci men Type: BLOOD SPECIMENOrdering Facility: [facility] Address: [address] [place] [place] [address] Performed By: #### 5 8410-2 ####[facility] LABORATORYCLIA [id number] [address] [place] MCHC (RBC) [Mass/Vol] 34.2 g/dL Normal 30.5-36.0 [facility] Comment on above: Order Comment: Speci men Type: BLOOD SPECIMENOrdering Facility: [facility] Address: [address] [place] [address] Performed By: #### 5 8410-2 ####[facility] LABORATORYCLIA [id number] [place] [address] [facility] [place] MCV (RBC) [Entitic vol] 93.5 fL Normal 80.0-100.0 [facility] Comment on above: Order Comment: Speci men Type: BLOOD SPECIMENOrdering Facility: [facility] Address: [address] [place] [address] Performed By: #### 5 8410-2 ####[facility] LABORATORYCLIA [id number] [place] [address] [place] Nucleated RBC (Bld) [#/Vol] 10*3/uL Normal <0.01 [facility] Comment on above: Order Comment: Speci men Type: BLOOD SPECIMENOrdering Facility: [facility] Address: [address] [place] [address] Performed By: #### 5 8410-2 ####[facility] LABORATORYCLIA [id number] [place] [address] [place] Platelet mean volume (Bld) [Entitic vol] 9.4 fL Normal 9.0-12.7 [facility] Comment on above: Order Comment: Speci men Type: BLOOD SPECIMENOrdering Facility: [facility] Address: [address] [place] [address] Performed By: #### 5 8410-2 ####[facility] LABORATORYCLIA [id number] [place] [address] [place] Platelets (Bld) [#/Vol] 183 10*3/uL Normal 150-400 [facility] Comment on above: Order Comment: Speci men Type: BLOOD SPECIMENOrdering Facility: [facility] Address: [address] [place] [address] Performed By: #### 5 8410-2 ####[facility] LABORATORYCLIA [id number] [place] [id number] [place] RBC (Bld) [#/Vol] 4.34 10*6/uL Normal 3.90-5.20 [facility] Comment on above: Order Comment: Speci men Type: BLOOD SPECIMENOrdering Facility: [facility] Address: [address] [place] [address] Performed By: #### 5 8410-2 ####[facility] LABORATORYCLIA [id number] [address] OF [facility] WBC (Bld) [#/Vol] 5.83 10*3/uL Normal 3.70-11.00 [facility] Comment on above: Order Comment: Speci men Type: BLOOD SPECIMENOrdering Facility: [facility] Address: [address] [place], [place] [address] Performed By: #### 5 8410-2 ####[facility] LABORATORYCLIA [id number] [place] [id number] [place] NURSING PROGon 12-13-2024 NURSING PROG Normal [facility] THERAPY NTon 12-13-2024 THERAPY NT [facility] THERAPY NT Normal [facility] THERAPY NT Normal [facility] Basic metabolic 2000 panelon 12-12-2024 Anion gap [Moles/Vol] 11 mmol/L Normal 5-16 [facility] Comment on above: Order Comment: Speci men Type: BLOOD SPECIMENOrdering Facility: [facility] Address: [address] [place] [address] Performed By: #### 2 4321-2 ####[facility] LABORATORYCLIA [id number] [place] [id number] [place] Calcium [Mass/Vol] 9.2 mg/dL Normal 8.5-10.5 [facility] Comment on above: Order Comment: Speci men Type: BLOOD SPECIMENOrdering Facility: [facility] Address: [address] [place] [address] Performed By: #### 2 4321-2 ####[facility] LABORATORYCLIA [id number] [place] [id number] [place] Chloride [Moles/Vol] 107 mmol/L Normal 98-107 [facility] Comment on above: Order Comment: Speci men Type: BLOOD SPECIMENOrdering Facility: [facility] Address: [address] [place] [address] Performed By: #### 2 4321-2 ####[facility] LABORATORYCLIA [id number] [place] [id number] [place] CO2 [Moles/Vol] 24 mmol/L Normal 21-32 [facility] Comment on above: Order Comment: Speci men Type: BLOOD SPECIMENOrdering Facility: [facility] Address: [address] [place] [address] Performed By: #### 2 4321-2 ####[facility] LABORATORYCLIA [id number] [place] [address] [place] Creatinine [Mass/Vol] 0.58 mg/dL Normal 0.51-0.95 [facility] Comment on above: Order Comment: Speci men Type: BLOOD SPECIMENOrdering Facility: [facility] Address: [address] [place] [address] Result Comment: Marilin ents receiving either N-Acetylcysteine (NAC) or Metamizole prior to venipuncture, may have falsely depressed results. Performed By: #### 2 4321-2 ####[facility] LABORATORYCLIA [id number] [place] [address] [place] Creatinine and Glomerular filtration rate.predicted panel (S/P/Bld) 112 mL/min/1.73m??? Normal >=60 [facility] Comment on above: Order Comment: Speci men Type: BLOOD SPECIMENOrdering Facility: [facility] Address: [address] [place] [address] Result Comment: Chrissy mated Glomerular Filtration Rate (eGFR) is calculated using the 2020 CKD-EPI creatinine equation. This equation utilizes serum creatinine, sex, and age as parameters. The creatinine assay has traceable calibration to isotope dilution-mass spectrometry. Refer to KDIGO guidelines for clinical interpretation. In patients with unstable renal function, e.g. those with acute kidney injury, the eGFR may not accurately reflect actual GFR. Performed By: #### 2 4321-2 ####[facility] LABORATORYCLIA [id number] [place] [id number] [place] Glucose [Mass/Vol] 88 mg/dL Normal 70-100 [facility] Comment on above: Order Comment: Syd ramos Type: BLOOD SPECIMENOrdering Facility: [facility] Address: [address] [place] [address] Result Comment: The [place] [employer] (ADA) provides guidance for cutoff values for fasting glucose and random glucose. The ADA defines fasting as no caloric intake for at least 8 hours. Fasting plasma glucose results between 100 to 125 mg/dL indicate increased risk for diabetes (prediabetes).Fasting plasma glucose results greater than or equal to 126 mg/dL meet the criteria for diagnosis of diabetes. In the absence of unequivocal hyperglycemia, results should be confirmed by repeat testing. In a patient with classic symptoms of hyperglycemia or hyperglycemic crisis, random plasma glucose results greater than or equal to 200 mg/dL meet the criteria for diagnosis of diabetes.Reference: Standards of Medical Care in Diabetes 2016, [place] [employer]. Diabetes Care. 2016.39(Suppl 1).Results may be falsely elevated after the administration of Sulfapyridine.Results may be falsely depressed after the administration of Sulfasalazine. Performed By: #### 2 4321-2 ####[facility] LABORATORYCLIA [id number] [place] [address] [place] Potassium [Moles/Vol] 3.9 mmol/L Normal 3.5-5.1 [facility] Comment on above: Order Comment: Syd ramos Type: BLOOD SPECIMENOrdering Facility: [facility] Address: [address] [place] [address] Performed By: #### 2 4321-2 ####[facility] LABORATORYCLIA [id number] [place] [id number] [place] Sodium [Moles/Vol] 142 mmol/L Normal 136-145 [facility] Comment on above: Order Comment: Speci men Type: BLOOD SPECIMENOrdering Facility: [facility] [address] [facility] [place] [address] Performed By: #### 2 4321-2 ####[facility] LABORATORYCLIA [id number] [place] [id number] [place] Urea nitrogen [Mass/Vol] 8 mg/dL Normal 7-26 [facility] Comment on above: Order Comment: Speci men Type: BLOOD SPECIMENOrdering Facility: [facility] Address: [address] [place] [address] Performed By: #### 2 4321-2 ####[facility] LABORATORYCLIA [id number] [place] [id number] [place] CBC panel Auto (Bld)on 12-12 Erythrocyte distribution width (RBC) [Ratio] 13.2 % Normal 11.5-15.0 [facility] Comment on above: Order Comment: Speci men Type: BLOOD SPECIMENOrdering Facility: [facility] Address: [address] [place] [address] Performed By: #### 5 8410-2 ####[facility] LABORATORYCLIA [id number] [place] [id number] [place] Hematocrit (Bld) [Volume fraction] 40.3 % Normal 36.0-46.0 [facility] Comment on above: Order Comment: Speci men Type: BLOOD SPECIMENOrdering Facility: [facility] Address: [address] [place] [address] Performed By: #### 5 8410-2 ####[facility] LABORATORYCLIA [id number] [place] [id number] [place] Hemoglobin (Bld) [Mass/Vol] 13.6 g/dL Normal 11.5-15.5 [facility] Comment on above: Order Comment: Speci men Type: BLOOD SPECIMENOrdering Facility: [facility] Address: [address] [place] [address] Performed By: #### 5 8410-2 ####[facility] LABORATORYCLIA [id number] [address] MCH (RBC) [Entitic mass] 31.8 pg Normal 26.0-34.0 [facility] Comment on above: Order Comment: Speci men Type: BLOOD SPECIMENOrdering Facility: [facility] Address: [address] [place] [address] Performed By: #### 5 8410-2 ####[facility] LABORATORYCLIA [id number] [address] [place] MCHC (RBC) [Mass/Vol] 33.7 g/dL Normal 30.5-36.0 [facility] Comment on above: Order Comment: Speci men Type: BLOOD SPECIMENOrdering Facility: [facility] Address: [address] [place] [address] Performed By: #### 5 8410-2 ####[facility] LABORATORYCLIA [id number] [address] MCV (RBC) [Entitic vol] 94.2 fL Normal 80.0-100.0 [facility] Comment on above: Order Comment: Speci men Type: BLOOD SPECIMENOrdering Facility: [facility] Address: [address] [place] [address] Performed By: #### 5 8410-2 ####[facility] LABORATORYCLIA [id number] [address] [place] Nucleated RBC (Bld) [#/Vol] 10*3/uL Normal <0.01 [facility] Comment on above: Order Comment: Speci men Type: BLOOD SPECIMENOrdering Facility: [facility] Address: [address] [place] [place] [address] Performed By: #### 5 8410-2 ####[facility] LABORATORYCLIA [id number] [address] [place] Platelet mean volume (Bld) [Entitic vol] 9.3 fL Normal 9.0-12.7 [facility] Comment on above: Order Comment: Speci men Type: BLOOD SPECIMENOrdering Facility: [facility] Address: [address] [place], [place] [address] Performed By: #### 5 8410-2 ####[facility] LABORATORYCLIA [id number] [place] [id number] [facility] Platelets (Bld) [#/Vol] 178 10*3/uL Normal 150-400 [facility] Comment on above: Order Comment: Speci men Type: BLOOD SPECIMENOrdering Facility: [facility] Address: [address] [place] [address] Performed By: #### 5 8410-2 ####[facility] LABORATORYCLIA [id number] [place] [address] [place] RBC (Bld) [#/Vol] 4.28 10*6/uL Normal 3.90-5.20 [facility] Comment on above: Order Comment: Speci men Type: BLOOD SPECIMENOrdering Facility: [facility] Address: [address] [place], [place] [address] Performed By: #### 5 8410-2 ####[facility] LABORATORYCLIA [id number] [address] [place] WBC (Bld) [#/Vol] 5.73 10*3/uL Normal 3.70-11.00 [facility] Comment on above: Order Comment: Speci men Type: BLOOD SPECIMENOrdering Facility: [facility] Address: [address] [place], [place] [address] Performed By: #### 5 8410-2 ####[facility] LABORATORYCLIA [id number] [place] [id number] [place] CONSULTon 12-12-2024 CONSULT Normal [facility] NURSING PROGon 12-12-2024 NURSING PROG Normal [facility] NURSING PROG [facility] NUTRITIONon 12-12-2024 NUTRITION Normal [facility] THERAPY NTon 12-12-2024 THERAPY NT Normal [facility] THERAPY NT [facility] Basic metabolic 2000 panelon 12-11-2024 Anion gap [Moles/Vol] 8 mmol/L Normal 5-16 [facility] Comment on above: Order Comment: Speci men Type: BLOOD SPECIMENOrdering Facility: [facility] Address: [address] [place] [address] Performed By: #### 2 4321-2 ####[facility] LABORATORYCLIA [id number] [place] [id number] [place] Calcium [Mass/Vol] 9.2 mg/dL Normal 8.5-10.5 [facility] Comment on above: Order Comment: Speci men Type: BLOOD SPECIMENOrdering Facility: [facility] Address: [address] [place] [address] Performed By: #### 2 4321-2 ####[facility] LABORATORYCLIA [id number] [place] [address] [place] Chloride [Moles/Vol] 109 mmol/L High 98-107 [facility] Comment on above: Order Comment: Speci men Type: BLOOD SPECIMENOrdering Facility: [facility] Address: [address] [place] [address] Performed By: #### 2 4321-2 ####[facility] LABORATORYCLIA [id number] [place] [address] [place] CO2 [Moles/Vol] 26 mmol/L Normal 21-32 [facility] Comment on above: Order Comment: Speci men Type: BLOOD SPECIMENOrdering Facility: [facility] Address: [address] [place] [address] Performed By: #### 2 4321-2 ####[facility] LABORATORYCLIA [id number] [place] [address] [place] Creatinine [Mass/Vol] 0.67 mg/dL Normal 0.51-0.95 [facility] Comment on above: Order Comment: Speci men Type: BLOOD SPECIMENOrdering Facility: [facility] Address: [address] [place] [address] Result Comment: Marilin ents receiving either N-Acetylcysteine (NAC) or Metamizole prior to venipuncture, may have falsely depressed results. Performed By: #### 2 4321-2 ####[facility] LABORATORYCLIA [id number] [place] [id number] [place] Creatinine and Glomerular filtration rate.predicted panel (S/P/Bld) 109 mL/min/1.73m??? Normal >=60 [facility] Comment on above: Order Comment: Syd ramos Type: BLOOD SPECIMENOrdering Facility: [facility] Address: [address] [place] [address] Result Comment: Chrissy mated Glomerular Filtration Rate (eGFR) is calculated using the 2020 CKD-EPI creatinine equation. This equation utilizes serum creatinine, sex, and age as parameters. The creatinine assay has traceable calibration to isotope dilution-mass spectrometry. Refer to KDIGO guidelines for clinical interpretation. In patients with unstable renal function, e.g. those with acute kidney injury, the eGFR may not accurately reflect actual GFR. Performed By: #### 2 4321-2 ####[facility] LABORATORYCLIA [id number] [place] [address] [place] Glucose [Mass/Vol] 97 mg/dL Normal 70-100 [facility] Comment on above: Order Comment: Syd ramos Type: BLOOD SPECIMENOrdering Facility: [facility] Address: [address] [place] [address] Result Comment: The [place] [employer] (ADA) provides guidance for cutoff values for fasting glucose and random glucose. The ADA defines fasting as no caloric intake for at least 8 hours. Fasting plasma glucose results between 100 to 125 mg/dL indicate increased risk for diabetes (prediabetes).Fasting plasma glucose results greater than or equal to 126 mg/dL meet the criteria for diagnosis of diabetes. In the absence of unequivocal hyperglycemia, results should be confirmed by repeat testing. In a patient with classic symptoms of hyperglycemia or hyperglycemic crisis, random plasma glucose results greater than or equal to 200 mg/dL meet the criteria for diagnosis of diabetes.Reference: Standards of Medical Care in Diabetes 2016, [place] [employer]. Diabetes Care. 2016.39(Suppl 1).Results may be falsely elevated after the administration of Sulfapyridine.Results may be falsely depressed after the administration of Sulfasalazine. Performed By: #### 2 4321-2 ####[facility] LABORATORYCLIA [id number] [place] [id number] [place] Potassium [Moles/Vol] 3.3 mmol/L Low 3.5-5.1 [facility] Comment on above: Order Comment: Speci men Type: BLOOD SPECIMENOrdering Facility: [facility] Address: [address] [place] [address] Performed By: #### 2 4321-2 ####[facility] LABORATORYCLIA [id number] [place] [id number] [place] Sodium [Moles/Vol] 143 mmol/L Normal 136-145 [facility] Comment on above: Order Comment: Speci men Type: BLOOD SPECIMENOrdering Facility: [facility] Address: [address] [place] [address] Performed By: #### 2 4321-2 ####[facility] LABORATORYCLIA [id number] [address] STATES OF [facility] Urea nitrogen [Mass/Vol] 14 mg/dL Normal 7-26 [facility] Comment on above: Order Comment: Speci men Type: BLOOD SPECIMENOrdering Facility: [facility] Address: [address] [place] [address] Performed By: #### 2 4321-2 ####[facility] LABORATORYCLIA [id number] [place] [id number] [place] CASE MANAGEMon 12-11-2024 CASE MANAGEM Normal [facility] CBC panel Auto (Bld)on 12-11 Erythrocyte distribution width (RBC) [Ratio] 13.2 % Normal 11.5-15.0 [facility] Comment on above: Order Comment: Speci men Type: BLOOD SPECIMENOrdering Facility: [facility] Address: [address] [place] [address] Performed By: #### 5 8410-2 ####[facility] LABORATORYCLIA [id number] [place] [id number] [place] Hematocrit (Bld) [Volume fraction] 40.0 % Normal 36.0-46.0 [facility] Comment on above: Order Comment: Speci men Type: BLOOD SPECIMENOrdering Facility: [facility] Address: [address] [place] [address] Performed By: #### 5 8410-2 ####[facility] LABORATORYCLIA [id number] [place] [address] [place] Hemoglobin (Bld) [Mass/Vol] 13.5 g/dL Normal 11.5-15.5 [facility] Comment on above: Order Comment: Speci men Type: BLOOD SPECIMENOrdering Facility: [facility] Address: [address] [place] [address] Performed By: #### 5 8410-2 ####[facility] LABORATORYCLIA [id number] [place] [address] [place] MCH (RBC) [Entitic mass] 31.8 pg Normal 26.0-34.0 [facility] Comment on above: Order Comment: Speci men Type: BLOOD SPECIMENOrdering Facility: [facility] Address: [address] [place] [address] Performed By: #### 5 8410-2 ####[facility] LABORATORYCLIA [id number] [place] [address] [place] MCHC (RBC) [Mass/Vol] 33.8 g/dL Normal 30.5-36.0 [facility] Comment on above: Order Comment: Speci men Type: BLOOD SPECIMENOrdering Facility: [facility] Address: [address] [place] [address] Performed By: #### 5 8410-2 ####[facility] LABORATORYCLIA [id number] [place] [address] [place] MCV (RBC) [Entitic vol] 94.1 fL Normal 80.0-100.0 [facility] Comment on above: Order Comment: Speci men Type: BLOOD SPECIMENOrdering Facility: [facility] Address: [address] [place] [place] [address] Performed By: #### 5 8410-2 ####[facility] LABORATORYCLIA [id number] [place] [id number] [place] Nucleated RBC (Bld) [#/Vol] 10*3/uL Normal <0.01 [facility] Comment on above: Order Comment: Speci men Type: BLOOD SPECIMENOrdering Facility: [facility] Address: [address] [place] [address] Performed By: #### 5 8410-2 ####[facility] LABORATORYCLIA [id number] [place] [address] [place] Platelet mean volume (Bld) [Entitic vol] 9.2 fL Normal 9.0-12.7 [facility] Comment on above: Order Comment: Speci men Type: BLOOD SPECIMENOrdering Facility: [facility] Address: [address] [place] [address] Performed By: #### 5 8410-2 ####[facility] LABORATORYCLIA [id number] [place] [id number] [place] Platelets (Bld) [#/Vol] 183 10*3/uL Normal 150-400 [facility] Comment on above: Order Comment: Speci men Type: BLOOD SPECIMENOrdering Facility: [facility] Address: [address] [place] [address] Performed By: #### 5 8410-2 ####[facility] LABORATORYCLIA [id number] [place] [address] [place] RBC (Bld) [#/Vol] 4.25 10*6/uL Normal 3.90-5.20 [facility] Comment on above: Order Comment: Speci men Type: BLOOD SPECIMENOrdering Facility: [facility] Address: [address] [place], [place] [address] Performed By: #### 5 8410-2 ####[facility] LABORATORYCLIA [id number] [place] [id number] [place] WBC (Bld) [#/Vol] 6.23 10*3/uL Normal 3.70-11.00 [facility] Comment on above: Order Comment: Speci men Type: BLOOD SPECIMENOrdering Facility: [facility] Address: [address] [place] [address] Performed By: #### 5 8410-2 ####[facility] LABORATORYCLIA [id number] [place] [id number] [place] [facility] CK SerPl-cCncon 12-11-2024 CK [Catalytic activity/Vol] 121 U/L Normal 28-152 [facility] Comment on above: Order Comment: Speci men Type: BLOOD SPECIMENOrdering Facility: [facility] Address: [address] [place] [address] Performed By: #### 2 157-6 ####[facility] LABORATORYCLIA [id number] [place] [id number] [facility] Lactate (Bld) [Moles/Vol]on 12-11-2024 Lactate [Moles/Vol] 0.9 mmol/L Normal 0.4-2.0 [facility] Comment on above: Order Comment: Speci men Type: BLOOD SPECIMENOrdering Facility: [facility] Address: [address] [place] [address] Performed By: #### 3 2693-4 ####[facility] LABORATORYCLIA [id number] [place] [id number] [facility] THERAPY NTon 12-11-2024 THERAPY NT Normal [facility] THERAPY NT Normal [facility] Ammonia Plas-sCncon 12-11-19 25 Ammonia (P) [Moles/Vol] 47 umol/L High 11-32 [facility] Comment on above: Order Comment: Speci men Type: BLOOD SPECIMENOrdering Facility: [facility] Address: [address] [place] [address] Result Comment: Resu lts may be falsely depressed after the administration of Sulfapyridine. Results may be falsely elevated after the administration of Sulfasalazine. Performed By: #### 1 6362-6 ####[facility] LABORATORYCLIA [id number] [place] [id number] [place] Basic metabolic 2000 panelon 12-10-2024 Anion gap [Moles/Vol] 7 mmol/L Normal 5-16 [facility] Comment on above: Order Comment: Speci men Type: BLOOD SPECIMENOrdering Facility: [facility] Address: [address] [place] [address] Performed By: #### 2 4321-2 ####[facility] LABORATORYCLIA [id number] [place] [id number] [place] Calcium [Mass/Vol] 9.2 mg/dL Normal 8.5-10.5 [facility] Comment on above: Order Comment: Speci men Type: BLOOD SPECIMENOrdering Facility: [facility] Address: [address] [place] [address] Performed By: #### 2 4321-2 ####[facility] LABORATORYCLIA [id number] [place] [address] [place] Chloride [Moles/Vol] 111 mmol/L High 98-107 [facility] Comment on above: Order Comment: Speci men Type: BLOOD SPECIMENOrdering Facility: [facility] Address: [address] [place] [address] Performed By: #### 2 4321-2 ####[facility] LABORATORYCLIA [id number] [place] [address] [place] CO2 [Moles/Vol] 27 mmol/L Normal 21-32 [facility] Comment on above: Order Comment: Speci men Type: BLOOD SPECIMENOrdering Facility: [facility] Address: [address] [place] [address] Performed By: #### 2 4321-2 ####[facility] LABORATORYCLIA [id number] [place] [address] [place] Creatinine [Mass/Vol] 0.64 mg/dL Normal 0.51-0.95 [facility] Comment on above: Order Comment: Speci men Type: BLOOD SPECIMENOrdering Facility: [facility] Address: [address] [place] [address] Result Comment: Marilin ents receiving either N-Acetylcysteine (NAC) or Metamizole prior to venipuncture, may have falsely depressed results. Performed By: #### 2 4321-2 ####[facility] LABORATORYCLIA [id number] [address] Creatinine and Glomerular filtration rate.predicted panel (S/P/Bld) 110 mL/min/1.73m??? Normal >=60 [facility] Comment on above: Order Comment: Syd ramos Type: BLOOD SPECIMENOrdering Facility: [facility] Address: [address] [place] [address] Result Comment: Chrissy mated Glomerular Filtration Rate (eGFR) is calculated using the 2020 CKD-EPI creatinine equation. This equation utilizes serum creatinine, sex, and age as parameters. The creatinine assay has traceable calibration to isotope dilution-mass spectrometry. Refer to KDIGO guidelines for clinical interpretation. In patients with unstable renal function, e.g. those with acute kidney injury, the eGFR may not accurately reflect actual GFR. Performed By: #### 2 4321-2 ####[facility] LABORATORYCLIA [id number] [place] [address] [place] Glucose [Mass/Vol] 91 mg/dL Normal 70-100 [facility] Comment on above: Order Comment: Syd ramos Type: BLOOD SPECIMENOrdering Facility: [facility] Address: [address] [place] [address] Result Comment: The [place] [employer] (ADA) provides guidance for cutoff values for fasting glucose and random glucose. The ADA defines fasting as no caloric intake for at least 8 hours. Fasting plasma glucose results between 100 to 125 mg/dL indicate increased risk for diabetes (prediabetes).Fasting plasma glucose results greater than or equal to 126 mg/dL meet the criteria for diagnosis of diabetes. In the absence of unequivocal hyperglycemia, results should be confirmed by repeat testing. In a patient with classic symptoms of hyperglycemia or hyperglycemic crisis, random plasma glucose results greater than or equal to 200 mg/dL meet the criteria for diagnosis of diabetes.Reference: Standards of Medical Care in Diabetes 2016, [place] [employer]. Diabetes Care. 2016.39(Suppl 1).Results may be falsely elevated after the administration of Sulfapyridine.Results may be falsely depressed after the administration of Sulfasalazine. Performed By: #### 2 4321-2 ####[facility] LABORATORYCLIA [id number] [place] [address] [place] Potassium [Moles/Vol] 3.4 mmol/L Low 3.5-5.1 [facility] Comment on above: Order Comment: Speci men Type: BLOOD SPECIMENOrdering Facility: [facility] Address: [address] [place] [address] Performed By: #### 2 4321-2 ####[facility] LABORATORYCLIA [id number] [place] [id number] [place] Sodium [Moles/Vol] 145 mmol/L Normal 136-145 [facility] Comment on above: Order Comment: Speci men Type: BLOOD SPECIMENOrdering Facility: [facility] Address: [address] [place] [address] Performed By: #### 2 4321-2 ####[facility] LABORATORYCLIA [id number] [place] [address] [place] Urea nitrogen [Mass/Vol] 11 mg/dL Normal 02-09 [facility] Comment on above: Order Comment: Speci men Type: BLOOD SPECIMENOrdering Facility: [facility] Address: [address] [place] [address] Performed By: #### 2 4321-2 ####[facility] LABORATORYCLIA [id number] [place] [id number] [place] CBC panel Auto (Bld)on 12-10 Erythrocyte distribution width (RBC) [Ratio] 13.1 % Normal 11.5-15.0 [facility] Comment on above: Order Comment: Speci men Type: BLOOD SPECIMENOrdering Facility: [facility] Address: [address] [place] [address] Performed By: #### 5 8410-2 ####[facility] LABORATORYCLIA [id number] [place] [id number] [place] Hematocrit (Bld) [Volume fraction] 38.1 % Normal 36.0-46.0 [facility] Comment on above: Order Comment: Speci men Type: BLOOD SPECIMENOrdering Facility: [facility] Address: [address] [place] [address] Performed By: #### 5 8410-2 ####[facility] LABORATORYCLIA [id number] [place] [id number] [place] Hemoglobin (Bld) [Mass/Vol] 12.9 g/dL Normal 11.5-15.5 [facility] Comment on above: Order Comment: Speci men Type: BLOOD SPECIMENOrdering Facility: [facility] Address: [address] [place] [address] Performed By: #### 5 8410-2 ####[facility] LABORATORYCLIA [id number] [address] [place] MCH (RBC) [Entitic mass] 31.9 pg Normal 26.0-34.0 [facility] Comment on above: Order Comment: Speci men Type: BLOOD SPECIMENOrdering Facility: [facility] Address: [address] [place] [address] Performed By: #### 5 8410-2 ####[facility] LABORATORYCLIA [id number] [address] STATES [facility] MCHC (RBC) [Mass/Vol] 33.9 g/dL Normal 30.5-36.0 [facility] Comment on above: Order Comment: Speci men Type: BLOOD SPECIMENOrdering Facility: [facility] Address: [address] [place] [address] Performed By: #### 5 8410-2 ####[facility] LABORATORYCLIA [id number] [address] [place] MCV (RBC) [Entitic vol] 94.1 fL Normal 80.0-100.0 [facility] Comment on above: Order Comment: Speci men Type: BLOOD SPECIMENOrdering Facility: [facility] Address: [address] [place] [address] Performed By: #### 5 8410-2 ####[facility] LABORATORYCLIA [id number] [place] [address] [place] Nucleated RBC (Bld) [#/Vol] 10*3/uL Normal <0.01 [facility] Comment on above: Order Comment: Speci men Type: BLOOD SPECIMENOrdering Facility: [facility] Address: [address] [place] [address] Performed By: #### 5 8410-2 ####[facility] LABORATORYCLIA [id number] [place] [address] [place] Platelet mean volume (Bld) [Entitic vol] 8.7 fL Low 9.0-12.7 [facility] Comment on above: Order Comment: Speci men Type: BLOOD SPECIMENOrdering Facility: [facility] Address: [address] [place] [address] Performed By: #### 5 8410-2 ####[facility] LABORATORYCLIA [id number] [place] [id number] [place] Platelets (Bld) [#/Vol] 160 10*3/uL Normal 150-400 [facility] Comment on above: Order Comment: Speci men Type: BLOOD SPECIMENOrdering Facility: [facility] Address: [address] [place] [address] Performed By: #### 5 8410-2 ####[facility] LABORATORYCLIA [id number] [place] [id number] [place] RBC (Bld) [#/Vol] 4.05 10*6/uL Normal 3.90-5.20 [facility] Comment on above: Order Comment: Speci men Type: BLOOD SPECIMENOrdering Facility: [facility] Address: [address] [place] [address] Performed By: #### 5 8410-2 ####[facility] LABORATORYCLIA [id number] [place] [id number] [place] WBC (Bld) [#/Vol] 5.37 10*3/uL Normal 3.70-11.00 [facility] Comment on above: Order Comment: Speci men Type: BLOOD SPECIMENOrdering Facility: [facility] Address: [address] [place], [place] [address] Performed By: #### 5 8410-2 ####[facility] LABORATORYCLIA [id number] [place] [id number] [place] Bas Metab 2000 Pnl SerPlon 0 12-09-2024 Potassium [Moles/Vol] 3.6 mmol/L Normal 3.5-5.1 [facility] Comment on above: Order Comment: Speci men Type: BLOOD SPECIMENOrdering Facility: [facility] Address: [address] [place] [address] Performed By: #### 2 4321-2, 09344-0, TSHRF, 3024-7, 21588-5 ####[facility] LABORATORYCLIA [id number] [place] [id number] [place] Urea nitrogen [Mass/Vol] 11 mg/dL Normal 7-26 [facility] Comment on above: Order Comment: Speci men Type: BLOOD SPECIMENOrdering Facility: [facility] Address: [address] [place] [address] Performed By: #### 2 4321-2, 20902-3, TSHRF, 3024-7, 65018-3 ####[facility] LABORATORYCLIA [id number] [place] [id number] [place] Basic metabolic 2000 panelon 12-09-2024 Anion gap [Moles/Vol] 9 mmol/L Normal 5-16 [facility] Comment on above: Order Comment: Speci men Type: BLOOD SPECIMENOrdering Facility: [facility] Address: [address] [place] [address] Performed By: #### 2 4321-2, 51387-9, TSHRF, 3024-7, 44184-7 ####[facility] LABORATORYCLIA [id number] [place] [id number] [place] Calcium [Mass/Vol] 8.7 mg/dL Normal 8.5-10.5 [facility] Comment on above: Order Comment: Speci men Type: BLOOD SPECIMENOrdering Facility: [facility] Address: [address] [place] [address] Performed By: #### 2 4321-2, 39179-7, TSHRF, 3024-7, 58530-5 ####[facility] LABORATORYCLIA [id number] [place] [address] [place] Chloride [Moles/Vol] 111 mmol/L High 98-107 [facility] Comment on above: Order Comment: Speci men Type: BLOOD SPECIMENOrdering Facility: [facility] Address: [address] [place] [address] Performed By: #### 2 4321-2, 80586-3, TSH, 3024-7, 11704-3 ####[facility] LABORATORYCLIA [id number] [place] [id number] [place] CO2 [Moles/Vol] 25 mmol/L Normal 21-32 [facility] Comment on above: Order Comment: Speci men Type: BLOOD SPECIMENOrdering Facility: [facility] Address: [address] [place] [address] Performed By: #### 2 4321-2, 00895-6, TSH, 302-7, 40311-4 ####[facility] LABORATORYCLIA [id number] [place] [id number] [place] Creatinine [Mass/Vol] 0.54 mg/dL Normal 0.51-0.95 [facility] Comment on above: Order Comment: Speci men Type: BLOOD SPECIMENOrdering Facility: [facility] Address: [address] [place] [address] Result Comment: Marilin ents receiving either N-Acetylcysteine (NAC) or Metamizole prior to venipuncture, may have falsely depressed results. Performed By: #### 2 4321-2, 46206-5, TSH, 302-7, 57519-7 ####[facility] LABORATORYCLIA [id number] [place] [address] [place] Creatinine and Glomerular filtration rate.predicted panel (S/P/Bld) 114 mL/min/1.73m??? Normal >=60 [facility] Comment on above: Order Comment: Speci men Type: BLOOD SPECIMENOrdering Facility: [facility] Address: [address] [place] [id number] Result Comment: Chrissy mated Glomerular Filtration Rate (eGFR) is calculated using the 2020 CKD-EPI creatinine equation. This equation utilizes serum creatinine, sex, and age as parameters. The creatinine assay has traceable calibration to isotope dilution-mass spectrometry. Refer to KDIGO guidelines for clinical interpretation. In patients with unstable renal function, e.g. those with acute kidney injury, the eGFR may not accurately reflect actual GFR. Performed By: #### 2 4321-2, 46553-0, [facility], 3023-7, 99092-9 ####[facility] LABORATORYCLIA [id number] [place] [id number] [place] Glucose [Mass/Vol] 97 mg/dL Normal 70-100 [facility] Comment on above: Order Comment: Syd ramos Type: BLOOD SPECIMENOrdering Facility: [facility] Address: [address] [place] [address] Result Comment: The [place] [employer] (ADA) provides guidance for cutoff values for fasting glucose and random glucose. The ADA defines fasting as no caloric intake for at least 8 hours. Fasting plasma glucose results between 100 to 125 mg/dL indicate increased risk for diabetes (prediabetes).Fasting plasma glucose results greater than or equal to 126 mg/dL meet the criteria for diagnosis of diabetes. In the absence of unequivocal hyperglycemia, results should be confirmed by repeat testing. In a patient with classic symptoms of hyperglycemia or hyperglycemic crisis, random plasma glucose results greater than or equal to 200 mg/dL meet the criteria for diagnosis of diabetes.Reference: Standards of Medical Care in Diabetes 2016, [place] [employer]. Diabetes Care. 2016.39(Suppl 1).Results may be falsely elevated after the administration of Sulfapyridine.Results may be falsely depressed after the administration of Sulfasalazine. Performed By: #### 2 4321-2, 96575-0, TSH, 302-7, 27205-2 ####[facility] LABORATORYCLIA [id number] [place] [address] [place] Sodium [Moles/Vol] 145 mmol/L Normal 136-145 [facility] Comment on above: Order Comment: Speci men Type: BLOOD SPECIMENOrdering Facility: [facility] Address: [address] [place] [address] Performed By: #### 2 4321-2, 67094-6, TSHRF, 3024-7, 83468-3 ####[facility] LABORATORYCLIA [id number] [place] [id number] [place] CASE MANAGEMon 12-09-2024 CASE MANAGEM Normal [facility] CBC panel Auto (Bld)on 12-09 Erythrocyte distribution width (RBC) [Ratio] 13.0 % Normal 11.5-15.0 [facility] Comment on above: Order Comment: Speci men Type: BLOOD SPECIMENOrdering Facility: [facility] Address: [address] [place] [address] Performed By: #### 5 8410-2, WAMMR ####[facility] LABORATORYCLIA [id number] [address] [place] Hematocrit (Bld) [Volume fraction] 37.0 % Normal 36.0-46.0 [facility] Comment on above: Order Comment: Speci men Type: BLOOD SPECIMENOrdering Facility: [facility] Address: [address] [place] [address] Performed By: #### 5 8410-2, WAMMR ####[facility] LABORATORYCLIA [id number] [place] [address] [place] Hemoglobin (Bld) [Mass/Vol] 12.7 g/dL Normal 11.5-15.5 [facility] Comment on above: Order Comment: Speci men Type: BLOOD SPECIMENOrdering Facility: [facility] Address: [address] [place] [address] Performed By: #### 5 8410-2, WAMMR ####[facility] LABORATORYCLIA [id number] [place] [id number] [place] MCH (RBC) [Entitic mass] 32.1 pg Normal 26.0-34.0 [facility] Comment on above: Order Comment: Speci men Type: BLOOD SPECIMENOrdering Facility: [facility] Address: [address] [place] [address] Performed By: #### 5 8410-2, WAMMR ####[facility] LABORATORYCLIA [id number] [address] [place] MCHC (RBC) [Mass/Vol] 34.3 g/dL Normal 30.5-36.0 [facility] Comment on above: Order Comment: Speci men Type: BLOOD SPECIMENOrdering Facility: [facility] Address: [address] [place] [address] Performed By: #### 5 8410-2, WAMMR ####[facility] LABORATORYCLIA [id number] [place] [address] [place] MCV (RBC) [Entitic vol] 93.4 fL Normal 80.0-100.0 [facility] Comment on above: Order Comment: Speci men Type: BLOOD SPECIMENOrdering Facility: [facility] Address: [address] [place] [place] [address] Performed By: #### 5 8410-2, WAMMR ####[facility] LABORATORYCLIA [id number] [place] [address] [place] Nucleated RBC (Bld) [#/Vol] 10*3/uL Normal <0.01 [facility] Comment on above: Order Comment: Speci men Type: BLOOD SPECIMENOrdering Facility: [facility] Address: [address] [place] [address] Performed By: #### 5 8410-2, WAMMR ####[facility] LABORATORYCLIA [id number] [place] [address] [place] Platelet mean volume (Bld) [Entitic vol] 9.7 fL Normal 9.0-12.7 [facility] Comment on above: Order Comment: Speci men Type: BLOOD SPECIMENOrdering Facility: [facility] Address: [address] [place] [address] Performed By: #### 5 8410-2, WAMMR ####[facility] LABORATORYCLIA [id number] [place] [address] [facility] [place] Platelets (Bld) [#/Vol] 135 10*3/uL Low 150-400 [facility] Comment on above: Order Comment: Speci men Type: BLOOD SPECIMENOrdering Facility: [facility] Address: [address] [place] [address] Result Comment: Micr otainer sample. No clot detected. Performed By: #### 5 8410-2, WAMMR ####[facility] LABORATORYCLIA [id number] [place] [address] [place] RBC (Bld) [#/Vol] 3.96 10*6/uL Normal 3.90-5.20 [facility] Comment on above: Order Comment: Speci men Type: BLOOD SPECIMENOrdering Facility: [facility] Address: [address] [place] [address] Performed By: #### 5 8410-2, WAMMR ####[facility] LABORATORYCLIA [id number] [address] OF [facility] WBC (Bld) [#/Vol] 5.06 10*3/uL Normal 3.70-11.00 [facility] Comment on above: Order Comment: Speci men Type: BLOOD SPECIMENOrdering Facility: [facility] Address: [address] [place] [address] Performed By: #### 5 8410-2, WAMMR ####[facility] LABORATORYCLIA [id number] [address] [place] Comprehensive metabolic 2000 panelon 12-09-2024 Albumin [Mass/Vol] 2.5 g/dL Low 3.2-5.0 [facility] Comment on above: Order Comment: Speci men Type: BLOOD SPECIMENOrdering Facility: [facility] Address: [address] [place] [address] Performed By: #### 2 4321-2, 61837-0, TSHRF, 3024-7, 20118-5 ####[facility] LABORATORYCLIA [id number] [place] [address] [place] ALP [Catalytic activity/Vol] 58 U/L Normal 45-117 [facility] Comment on above: Order Comment: Speci men Type: BLOOD SPECIMENOrdering Facility: [facility] Address: [address] [place] [address] Performed By: #### 2 4321-2, 84433-3, TSHRF, 3024-7, 39174-7 ####[facility] LABORATORYCLIA [id number] [place] [id number] [place] ALT [Catalytic activity/Vol] 28 U/L Normal 13-61 [facility] Comment on above: Order Comment: Speci men Type: BLOOD SPECIMENOrdering Facility: [facility] Address: [address] [place] [address] Result Comment: Resu lts may be falsely depressed after the administration of Sulfasalazine and/or Sulfapyridine. Performed By: #### 2 4321-2, 54167-0, TSHRF, 3023-7, 34780-0 ####[facility] LABORATORYCLIA [id number] [address] STATES OF [facility] Anion gap [Moles/Vol] 12 mmol/L Normal 5-16 [facility] Comment on above: Order Comment: Speci men Type: BLOOD SPECIMENOrdering Facility: [facility] Address: [address] [place] [address] Performed By: #### 2 4321-2, 16452-7, TSHRF, 302-7, 89707-7 ####[facility] LABORATORYCLIA [id number] [place] [id number] [place] AST [Catalytic activity/Vol] 33 U/L Normal 8-34 [facility] Comment on above: Order Comment: Speci men Type: BLOOD SPECIMENOrdering Facility: [facility] Address: [address] [place] [address] Result Comment: Resu lts may be falsely depressed after the administration of Sulfasalazine and/or Sulfapyridine. Performed By: #### 2 4321-2, , TSHRF, 3024-7, 18729-1 ####[facility] LABORATORYCLIA [id number] [place] [address] [place] Bilirubin [Mass/Vol] 0.3 mg/dL Normal 0.2-1.0 [facility] Comment on above: Order Comment: Speci men Type: BLOOD SPECIMENOrdering Facility: [facility] Address: [address] [place] [address] Performed By: #### 2 4321-2, , TSHRF, 3024-7, 05295-0 ####[facility] LABORATORYCLIA [id number] [place] [id number] [place] Calcium [Mass/Vol] 8.8 mg/dL Normal 8.5-10.5 [facility] Comment on above: Order Comment: Speci men Type: BLOOD SPECIMENOrdering Facility: [facility] Address: [address] [place] [address] Performed By: #### 2 4320-2, , TSHRF, 302-7, 61465-3 ####[facility] LABORATORYCLIA [id number] [place] [id number] [place] Chloride [Moles/Vol] 114 mmol/L High 98-107 [facility] Comment on above: Order Comment: Speci men Type: BLOOD SPECIMENOrdering Facility: [facility] Address: [address] [place] [address] Performed By: #### 2 4321-2, , TSHRF, 302-7, 26952-1 ####[facility] LABORATORYCLIA [id number] [place] [address] [place] CO2 [Moles/Vol] 21 mmol/L Normal 21-32 [facility] Comment on above: Order Comment: Speci men Type: BLOOD SPECIMENOrdering Facility: [facility] Address: [address] [place] [address] Performed By: #### 2 4321-2, 59254-5, TSHRF, 3024-7, 91463-7 ####[facility] LABORATORYCLIA [id number] [place] [id number] [place] Creatinine [Mass/Vol] 0.53 mg/dL Normal 0.51-0.95 [facility] Comment on above: Order Comment: Speci richard Type: BLOOD SPECIMENOrdering Facility: [facility] Address: [address] [place] [place] [address] Result Comment: Marilin ents receiving either N-Acetylcysteine (NAC) or Metamizole prior to venipuncture, may have falsely depressed results. Performed By: #### 2 4321-2, 12220-2, [facility], 3024-01, ####[facility] LABORATORYCLIA [id number] [place] [id number] [place] [facility] Creatinine and Glomerular filtration rate.predicted panel (S/P/Bld) 115 mL/min/1.73m??? Normal >=60 [facility] Comment on above: Order Comment: Irmai richard Type: BLOOD SPECIMENOrdering Facility: [facility] Address: [address] [place] [address] Result Comment: Chrissy mated Glomerular Filtration Rate (eGFR) is calculated using the 2020 CKD-EPI creatinine equation. This equation utilizes serum creatinine, sex, and age as parameters. The creatinine assay has traceable calibration to isotope dilution-mass spectrometry. Refer to KDIGO guidelines for clinical interpretation. In patients with unstable renal function, e.g. those with acute kidney injury, the eGFR may not accurately reflect actual GFR. Performed By: #### 2 4321-2, 77258-3, [facility], 3024-01, ####[facility] LABORATORYCLIA [id number] [place] [id number] [place] Glucose [Mass/Vol] 100 mg/dL Normal 70-100 [facility] Comment on above: Order Comment: Irmai richard Type: BLOOD SPECIMENOrdering Facility: [facility] Address: [address] [place] [address] Result Comment: The [place] [employer] (ADA) provides guidance for cutoff values for fasting glucose and random glucose. The ADA defines fasting as no caloric intake for at least 8 hours. Fasting plasma glucose results between 100 to 125 mg/dL indicate increased risk for diabetes (prediabetes).Fasting plasma glucose results greater than or equal to 126 mg/dL meet the criteria for diagnosis of diabetes. In the absence of unequivocal hyperglycemia, results should be confirmed by repeat testing. In a patient with classic symptoms of hyperglycemia or hyperglycemic crisis, random plasma glucose results greater than or equal to 200 mg/dL meet the criteria for diagnosis of diabetes.Reference: Standards of Medical Care in Diabetes 2016, [place] [employer]. Diabetes Care. 2016.39(Suppl 1).Results may be falsely elevated after the administration of Sulfapyridine.Results may be falsely depressed after the administration of Sulfasalazine. Performed By: #### 2 4321-2, 70956-9, [facility], 3023-, 37472-7 ####[facility] LABORATORYCLIA [id number] [place] [address] [place] Protein [Mass/Vol] 5.4 g/dL Low 6.0-8.5 [facility] Comment on above: Order Comment: Speci men Type: BLOOD SPECIMENOrdering Facility: [facility] Address: [address] [place] [address] Performed By: #### 2 4321-2, 54452-7, [facility], 3024-01, 07661-2 ####[facility] LABORATORYCLIA [id number] [place] [address] [place] Sodium [Moles/Vol] 147 mmol/L High 136-145 [facility] Comment on above: Order Comment: Speci men Type: BLOOD SPECIMENOrdering Facility: [facility] Address: [address] [place] [address] Performed By: #### 2 4321-2, 33711-3, [facility], 3024-01, 38428-9 ####[facility] LABORATORYCLIA [id number] [place] [id number] [place] MORPH WAM REFLEXon 5 Ovalocytes LM Ql (Bld) Few Normal [facility] Comment on above: Order Comment: Speci men Type: BLOOD SPECIMENOrdering Facility: [facility] Address: [address] [place] [address] Performed By: #### 5 8410-2, WAMMR ####[facility] LABORATORYCLIA [id number] [place] [address] [place] Platelet clump LM Ql (Bld) Present Normal [facility] Comment on above: Order Comment: Speci men Type: BLOOD SPECIMENOrdering Facility: [facility] Address: [address] [place] [address] Performed By: #### 5 8410-2, WAMMR ####[facility] LABORATORYCLIA [id number] [place] [address] [facility] [place] Platelets Estimate (Bld) [#/Vol] Decreased Normal [facility] Comment on above: Order Comment: Speci men Type: BLOOD SPECIMENOrdering Facility: [facility] Address: [address] [place] [address] Performed By: #### 5 8410-2, WAMMR ####[facility] LABORATORYCLIA [id number] [place] [address] [place] Polychromasia LM Ql (Bld) Slight Normal [facility] Comment on above: Order Comment: Speci men Type: BLOOD SPECIMENOrdering Facility: [facility] Address: [address] [place] [address] Performed By: #### 5 8410-2, WAMMR ####[facility] LABORATORYCLIA [id number] [place] [address] [place] RED CELL MORPH Reviewed: see result s of individual morphologies Normal [facility] Comment on above: Order Comment: Speci men Type: BLOOD SPECIMENOrdering Facility: [facility] Address: [address] [place] [id number] Performed By: #### 5 8410-2, WAMMR ####[facility] LABORATORYCLIA [id number] [place] [address] [place] Magnesium SerPl[facility] Magnesium [Mass/Vol] 1.9 mg/dL Normal 1.6-2.6 [facility] Comment on above: Order Comment: Speci men Type: BLOOD SPECIMENOrdering Facility: [facility] Address: [address] [place] [address] Performed By: #### 2 4321-2, 41329-0, TSHRF, 3024-7, 51398-8 ####[facility] LABORATORYCLIA [id number] [place] [address] [place] T4 Free SerPl-mCncon 025 Free T4 [Mass/Vol] 1.4 ng/dL Normal 0.8-1.5 [facility] Comment on above: Order Comment: Speci men Type: BLOOD SPECIMENOrdering Facility: [facility] Address: [address] [place] [address] Performed By: #### 2 4321-2, 83416-0, TSHRF, 3024-7, 19789-2 ####[facility] LABORATORYCLIA [id number] [address] STATES OF [facility] TSH W/REFLEX FT4on TSH Qn 3.832 m[IU]/L High 0.358-3.74 0 [facility] Comment on above: Order Comment: Speci men Type: BLOOD SPECIMENOrdering Facility: [facility] Address: [address] [place] [address] Result Comment: 3rd generation ultra sensitive TSH. Performed By: #### 2 4321-2, 04522-6, TSH[facility], 3024-7, 96845-0 ####[facility] LABORATORYCLIA [id number] [place] [address] [place] XR CHEST 1V FRONTALon 2024 XR CHEST 1V FRONTAL Normal [facility] Basic metabolic 2000 panelon 12-08-2024 Anion gap [Moles/Vol] 10 mmol/L Normal 5-16 [facility] Comment on above: Order Comment: Speci men Type: BLOOD SPECIMENOrdering Facility: [facility] Address: [address] [place] [address] Performed By: #### 2 4321-2 ####[facility] LABORATORYCLIA [id number] [place] [id number] [place] Calcium [Mass/Vol] 9.2 mg/dL Normal 8.5-10.5 [facility] Comment on above: Order Comment: Speci men Type: BLOOD SPECIMENOrdering Facility: [facility] Address: [address] [place] [address] Performed By: #### 2 4321-2 ####[facility] LABORATORYCLIA [id number] [place] [id number] [place] Chloride [Moles/Vol] 110 mmol/L High 98-107 [facility] Comment on above: Order Comment: Speci men Type: BLOOD SPECIMENOrdering Facility: [facility] Address: [address] [place] [address] Performed By: #### 2 4321-2 ####[facility] LABORATORYCLIA [id number] [place] [address] [place] CO2 [Moles/Vol] 25 mmol/L Normal 21-32 [facility] Comment on above: Order Comment: Speci men Type: BLOOD SPECIMENOrdering Facility: [facility] Address: [address] [place] [address] Performed By: #### 2 4321-2 ####[facility] LABORATORYCLIA [id number] [place] [address] [place] Creatinine [Mass/Vol] 0.56 mg/dL Normal 0.51-0.95 [facility] Comment on above: Order Comment: Speci men Type: BLOOD SPECIMENOrdering Facility: [facility] Address: [address] [place] [address] Result Comment: Marilin ents receiving either N-Acetylcysteine (NAC) or Metamizole prior to venipuncture, may have falsely depressed results. Performed By: #### 2 4321-2 ####[facility] LABORATORYCLIA [id number] [place] [id number] [place] Creatinine and Glomerular filtration rate.predicted panel (S/P/Bld) 113 mL/min/1.73m??? Normal >=60 [facility] Comment on above: Order Comment: Syd ramos Type: BLOOD SPECIMENOrdering Facility: [facility] Address: [address] [place] [address] Result Comment: Chrissy mated Glomerular Filtration Rate (eGFR) is calculated using the 2020 CKD-EPI creatinine equation. This equation utilizes serum creatinine, sex, and age as parameters. The creatinine assay has traceable calibration to isotope dilution-mass spectrometry. Refer to KDIGO guidelines for clinical interpretation. In patients with unstable renal function, e.g. those with acute kidney injury, the eGFR may not accurately reflect actual GFR. Performed By: #### 2 4321-2 ####[facility] LABORATORYCLIA [id number] [place] [id number] [place] Glucose [Mass/Vol] 97 mg/dL Normal 70-100 [facility] Comment on above: Order Comment: Syd ramos Type: BLOOD SPECIMENOrdering Facility: [facility] Address: [address] [place] [address] Result Comment: The [place] Diabetes [employer] (ADA) provides guidance for cutoff values for fasting glucose and random glucose. The ADA defines fasting as no caloric intake for at least 8 hours. Fasting plasma glucose results between 100 to 125 mg/dL indicate increased risk for diabetes (prediabetes).Fasting plasma glucose results greater than or equal to 126 mg/dL meet the criteria for diagnosis of diabetes. In the absence of unequivocal hyperglycemia, results should be confirmed by repeat testing. In a patient with classic symptoms of hyperglycemia or hyperglycemic crisis, random plasma glucose results greater than or equal to 200 mg/dL meet the criteria for diagnosis of diabetes.Reference: Standards of Medical Care in Diabetes 2016, [place] [employer]. Diabetes Care. 2016.39(Suppl 1).Results may be falsely elevated after the administration of Sulfapyridine.Results may be falsely depressed after the administration of Sulfasalazine. Performed By: #### 2 4321-2 ####[facility] LABORATORYCLIA [id number] [place] [id number] [place] Potassium [Moles/Vol] 3.5 mmol/L Normal 3.5-5.1 [facility] Comment on above: Order Comment: Speci men Type: BLOOD SPECIMENOrdering Facility: [facility] Address: [address] [place] [address] Performed By: #### 2 4321-2 ####[facility] LABORATORYCLIA [id number] [place] [id number] [place] [facility] Sodium [Moles/Vol] 145 mmol/L Normal 136-145 [facility] Comment on above: Order Comment: Speci men Type: BLOOD SPECIMENOrdering Facility: [facility] Address: [address] [place] [address] Performed By: #### 2 4321-2 ####[facility] LABORATORYCLIA [id number] [place] [id number] [place] Urea nitrogen [Mass/Vol] 8 mg/dL Normal 7-26 [facility] Comment on above: Order Comment: Speci men Type: BLOOD SPECIMENOrdering Facility: [facility] Address: [address] [place] [address] Performed By: #### 2 4321-2 ####[facility] LABORATORYCLIA [id number] [place] [id number] [place] CASE MANAGEMon 12-08-2024 CASE MANAGEM Normal [facility] CBC panel Auto (Bld)on 12-08 Erythrocyte distribution width (RBC) [Ratio] 13.2 % Normal 11.5-15.0 [facility] Comment on above: Order Comment: Speci men Type: BLOOD SPECIMENOrdering Facility: [facility] Address: [address] [place] [place] [address] Performed By: #### 5 8410-2 ####[facility] LABORATORYCLIA [id number] [place] [id number] [place] Hematocrit (Bld) [Volume fraction] 38.8 % Normal 36.0-46.0 [facility] Comment on above: Order Comment: Speci men Type: BLOOD SPECIMENOrdering Facility: [facility] Address: [address] [place] [address] Performed By: #### 5 8410-2 ####[facility] LABORATORYCLIA [id number] [place] [address] [place] Hemoglobin (Bld) [Mass/Vol] 12.9 g/dL Normal 11.5-15.5 [facility] Comment on above: Order Comment: Speci men Type: BLOOD SPECIMENOrdering Facility: [facility] Address: [address] [place] [address] Performed By: #### 5 8410-2 ####[facility] LABORATORYCLIA [id number] [address] MCH (RBC) [Entitic mass] 31.5 pg Normal 26.0-34.0 [facility] Comment on above: Order Comment: Speci men Type: BLOOD SPECIMENOrdering Facility: [facility] Address: [address] [place] [address] Performed By: #### 5 8410-2 ####[facility] LABORATORYCLIA [id number] [address] [place] MCHC (RBC) [Mass/Vol] 33.2 g/dL Normal 30.5-36.0 [facility] Comment on above: Order Comment: Speci men Type: BLOOD SPECIMENOrdering Facility: [facility] Address: [address] [place] [address] Performed By: #### 5 8410-2 ####[facility] LABORATORYCLIA [id number] [address] [place] MCV (RBC) [Entitic vol] 94.9 fL Normal 80.0-100.0 [facility] Comment on above: Order Comment: Speci men Type: BLOOD SPECIMENOrdering Facility: [facility] Address: [address] [place] [address] Performed By: #### 5 8410-2 ####[facility] LABORATORYCLIA [id number] [address] [place] Nucleated RBC (Bld) [#/Vol] 10*3/uL Normal <0.01 [facility] Comment on above: Order Comment: Speci men Type: BLOOD SPECIMENOrdering Facility: [facility] Address: [address] [place] [id number] Performed By: #### 5 8410-2 ####[facility] LABORATORYCLIA [id number] [place] [id number] [place] Platelet mean volume (Bld) [Entitic vol] 9.7 fL Normal 9.0-12.7 [facility] Comment on above: Order Comment: Speci men Type: BLOOD SPECIMENOrdering Facility: [facility] Address: [address] [place] [address] Performed By: #### 5 8410-2 ####[facility] LABORATORYCLIA [id number] [place] [id number] [place] Platelets (Bld) [#/Vol] 151 10*3/uL Normal 150-400 [facility] Comment on above: Order Comment: Speci men Type: BLOOD SPECIMENOrdering Facility: [facility] Address: [address] [place] [place] [address] Performed By: #### 5 8410-2 ####[facility] LABORATORYCLIA [id number] [place] [address] [place] RBC (Bld) [#/Vol] 4.09 10*6/uL Normal 3.90-5.20 [facility] Comment on above: Order Comment: Speci men Type: BLOOD SPECIMENOrdering Facility: [facility] Address: [address] [place] [address] Performed By: #### 5 8410-2 ####[facility] LABORATORYCLIA [id number] [place] [id number] [place] WBC (Bld) [#/Vol] 5.76 10*3/uL Normal 3.70-11.00 [facility] Comment on above: Order Comment: Speci men Type: BLOOD SPECIMENOrdering Facility: [facility] Address: [address] [place] [place] [address] Performed By: #### 5 8410-2 ####[facility] LABORATORYCLIA [id number] [place] [id number] [place] CONSULTon 05-24-2025 CONSULT Normal [facility] 25([place])D3 SerPl-mCncon 2024 25-hydroxyvitamin D3 [Mass/Vol] 63.8 ng/mL Normal 30.0-100.0 [facility] Comment on above: Order Comment: Speci men Type: BLOOD SPECIMENOrdering Facility: [facility] Address: [address] [place] [address] Result Comment: Defi ciency\X09\Less than 20 ng/mLInsufficiency\X09\20 - Less than 30 ng/mLSufficiency\X09\30 - 100 ng/mL Performed By: #### 2 284-8, 1988-09 ####[facility] LABORATORYCLIA [id number] [place] [address] [place] Basic metabolic 2000 panelon 12-07-2024 Anion gap [Moles/Vol] 10 mmol/L Normal 5-16 [facility] Comment on above: Order Comment: Speci men Type: BLOOD SPECIMENOrdering Facility: [facility] Address: [address] [place] [address] Performed By: #### 2 4321-2 ####[facility] LABORATORYCLIA [id number] [place] [address] [place] Calcium [Mass/Vol] 9.0 mg/dL Normal 8.5-10.5 [facility] Comment on above: Order Comment: Speci men Type: BLOOD SPECIMENOrdering Facility: [facility] Address: [address] [place] [address] Performed By: #### 2 4321-2 ####[facility] LABORATORYCLIA [id number] [place] [id number] [place] Chloride [Moles/Vol] 111 mmol/L High 98-107 [facility] Comment on above: Order Comment: Speci men Type: BLOOD SPECIMENOrdering Facility: [facility] Address: [address] [place] [address] Performed By: #### 2 4321-2 ####[facility] LABORATORYCLIA [id number] [address] [place] CO2 [Moles/Vol] 25 mmol/L Normal 21-32 [facility] Comment on above: Order Comment: Syd ramos Type: BLOOD SPECIMENOrdering Facility: [facility] Address: [address] [place] [address] Performed By: #### 2 4321-2 ####[facility] LABORATORYCLIA [id number] [address] [place] Creatinine [Mass/Vol] 0.55 mg/dL Normal 0.51-0.95 [facility] Comment on above: Order Comment: Syd ramos Type: BLOOD SPECIMENOrdering Facility: [facility] Address: [address] [place] [address] Result Comment: Marilin ents receiving either N-Acetylcysteine (NAC) or Metamizole prior to venipuncture, may have falsely depressed results. Performed By: #### 2 4321-2 ####[facility] LABORATORYCLIA [id number] [address] Creatinine and Glomerular filtration rate.predicted panel (S/P/Bld) 114 mL/min/1.73m??? Normal >=60 [facility] Comment on above: Order Comment: Syd ramos Type: BLOOD SPECIMENOrdering Facility: [facility] Address: [address] [place] [place] [address] Result Comment: Chrissy mated Glomerular Filtration Rate (eGFR) is calculated using the 2020 CKD-EPI creatinine equation. This equation utilizes serum creatinine, sex, and age as parameters. The creatinine assay has traceable calibration to isotope dilution-mass spectrometry. Refer to KDIGO guidelines for clinical interpretation. In patients with unstable renal function, e.g. those with acute kidney injury, the eGFR may not accurately reflect actual GFR. Performed By: #### 2 4321-2 ####[facility] LABORATORYCLIA [id number] [address] [place] Glucose [Mass/Vol] 109 mg/dL High 70-100 [facility] Comment on above: Order Comment: Syd ramos Type: BLOOD SPECIMENOrdering Facility: [facility] Address: [address] [place] [phone] Result Comment: The [place] [employer] (ADA) provides guidance for cutoff values for fasting glucose and random glucose. The ADA defines fasting as no caloric intake for at least 8 hours. Fasting plasma glucose results between 100 to 125 mg/dL indicate increased risk for diabetes (prediabetes).Fasting plasma glucose results greater than or equal to 126 mg/dL meet the criteria for diagnosis of diabetes. In the absence of unequivocal hyperglycemia, results should be confirmed by repeat testing. In a patient with classic symptoms of hyperglycemia or hyperglycemic crisis, random plasma glucose results greater than or equal to 200 mg/dL meet the criteria for diagnosis of diabetes.Reference: Standards of Medical Care in Diabetes 2016, [place] [employer]. Diabetes Care. 2016.39(Suppl 1).Results may be falsely elevated after the administration of Sulfapyridine.Results may be falsely depressed after the administration of Sulfasalazine. Performed By: #### 2 4321-2 ####[facility] LABORATORYCLIA [id number] [place] [address] [place] Potassium [Moles/Vol] 3.7 mmol/L Normal 3.5-5.1 [facility] Comment on above: Order Comment: Speci men Type: BLOOD SPECIMENOrdering Facility: [facility] Address: [address] [place] [phone] Performed By: #### 2 4321-2 ####[facility] LABORATORYCLIA [id number] [place] [address] [place] Sodium [Moles/Vol] 146 mmol/L High 136-145 [facility] Comment on above: Order Comment: Speci men Type: BLOOD SPECIMENOrdering Facility: [facility] Address: [address] [place] [phone] Performed By: #### 2 4321-2 ####[facility] LABORATORYCLIA [id number] [place] [address] [place] Urea nitrogen [Mass/Vol] 8 mg/dL Normal 7-26 [facility] Comment on above: Order Comment: Speci men Type: BLOOD SPECIMENOrdering Facility: [facility] Address: [address] [place] [phone] Performed By: #### 2 4321-2 ####[facility] LABORATORYCLIA [id number] [place] [id number] [place] CASE MANAGEMon 12-07-2024 CASE MANAGEM Normal [facility] CASE MANAGEM Normal [facility] CBC panel Auto (Bld)on 12-07 Erythrocyte distribution width (RBC) [Ratio] 13.2 % Normal 11.5-15.0 [facility] Comment on above: Order Comment: Speci men Type: BLOOD SPECIMENOrdering Facility: [facility] Address: [address] [place] [address] Performed By: #### 5 8410-2 ####[facility] LABORATORYCLIA [id number] [address] STATES [facility] Hematocrit (Bld) [Volume fraction] 43.4 % Normal 36.0-46.0 [facility] Comment on above: Order Comment: Speci men Type: BLOOD SPECIMENOrdering Facility: [facility] Address: [address] [place] [address] Performed By: #### 5 8410-2 ####[facility] LABORATORYCLIA [id number] [place] [address] [place] Hemoglobin (Bld) [Mass/Vol] 14.8 g/dL Normal 11.5-15.5 [facility] Comment on above: Order Comment: Speci men Type: BLOOD SPECIMENOrdering Facility: [facility] Address: [address] [place] [address] Performed By: #### 5 8410-2 ####[facility] LABORATORYCLIA [id number] [place] [address] [place] MCH (RBC) [Entitic mass] 32.9 pg Normal 26.0-34.0 [facility] Comment on above: Order Comment: Speci men Type: BLOOD SPECIMENOrdering Facility: [facility] Address: [address] [place] [address] Performed By: #### 5 8410-2 ####[facility] LABORATORYCLIA [id number] [address] [place] MCHC (RBC) [Mass/Vol] 34.1 g/dL Normal 30.5-36.0 [facility] Comment on above: Order Comment: Speci men Type: BLOOD SPECIMENOrdering Facility: [facility] Address: [address] [place] [address] Performed By: #### 5 8410-2 ####[facility] LABORATORYCLIA [id number] [place] [address] [place] MCV (RBC) [Entitic vol] 96.4 fL Normal 80.0-100.0 [facility] Comment on above: Order Comment: Speci men Type: BLOOD SPECIMENOrdering Facility: [facility] Address: [address] [place] [address] Performed By: #### 5 8410-2 ####[facility] LABORATORYCLIA [id number] [address] [place] Nucleated RBC (Bld) [#/Vol] 10*3/uL Normal <0.01 [facility] Comment on above: Order Comment: Speci men Type: BLOOD SPECIMENOrdering Facility: [facility] Address: [address] [place] [address] Performed By: #### 5 8410-2 ####[facility] LABORATORYCLIA [id number] [place] [address] [place] Platelet mean volume (Bld) [Entitic vol] 9.0 fL Normal 9.0-12.7 [facility] Comment on above: Order Comment: Speci men Type: BLOOD SPECIMENOrdering Facility: [facility] Address: [address] [place] [address] Performed By: #### 5 8410-2 ####[facility] LABORATORYCLIA [id number] [place] [address] [place] Platelets (Bld) [#/Vol] 115 10*3/uL Low 150-400 [facility] Comment on above: Order Comment: Speci men Type: BLOOD SPECIMENOrdering Facility: [facility] Address: [facility] [place] [address] Performed By: #### 5 8410-2 ####[facility] LABORATORYCLIA [id number] [place] [id number] [place] RBC (Bld) [#/Vol] 4.50 10*6/uL Normal 3.90-5.20 [facility] Comment on above: Order Comment: Speci men Type: BLOOD SPECIMENOrdering Facility: [facility] Address: [address] [place] [address] Performed By: #### 5 8410-2 ####[facility] LABORATORYCLIA [id number] [place] [id number] [place] WBC (Bld) [#/Vol] 5.87 10*3/uL Normal 3.70-11.00 [facility] Comment on above: Order Comment: Speci men Type: BLOOD SPECIMENOrdering Facility: [facility] Address: [address] [place] [address] Performed By: #### 5 8410-2 ####[facility] LABORATORYCLIA [id number] [place] [address] [place] Folate SerPl-ncon 12-08-19 25 Folate [Mass/Vol] 16.8 ng/mL Normal >3.0 [facility] Comment on above: Order Comment: Speci men Type: BLOOD SPECIMENOrdering Facility: [facility] Address: [address] [place] [address] Performed By: #### 2 284-8, 1988-09 ####[facility] LABORATORYCLIA [id number] [place] [id number] [place] THERAPY NTon 12-07-2024 THERAPY NT Normal [facility] THERAPY NT Normal [facility] Vit B12 SerPl-mCncon 025 Cobalamin (Vitamin B12) [Mass/Vol] 627 pg/mL Normal 193-986 [facility] Comment on above: Order Comment: Speci men Type: BLOOD SPECIMENOrdering Facility: [facility] Address: [address] [place] [address] Performed By: #### 2 132-9 ####[facility] LABORATORYCLIA [id number] [place] [id number] [place] Basic metabolic 2000 panelon 12-06-2024 Anion gap [Moles/Vol] 9 mmol/L Normal 5-16 [facility] Comment on above: Order Comment: Speci men Type: BLOOD SPECIMENOrdering Facility: [facility] Address: [address] [place] [address] Performed By: #### 2 4321-2 ####[facility] LABORATORYCLIA [id number] [place] [address] [place] Calcium [Mass/Vol] 8.9 mg/dL Normal 8.5-10.5 [facility] Comment on above: Order Comment: Speci men Type: BLOOD SPECIMENOrdering Facility: [facility] Address: [address] [place] [address] Performed By: #### 2 4321-2 ####[facility] LABORATORYCLIA [id number] [place] [address] [place] Chloride [Moles/Vol] 110 mmol/L High 98-107 [facility] Comment on above: Order Comment: Speci men Type: BLOOD SPECIMENOrdering Facility: [facility] Address: [address] [place] [address] Performed By: #### 2 4321-2 ####[facility] LABORATORYCLIA [id number] [place] [address] [place] CO2 [Moles/Vol] 23 mmol/L Normal 21-32 [facility] Comment on above: Order Comment: Speci men Type: BLOOD SPECIMENOrdering Facility: [facility] Address: [address] [place] [address] Performed By: #### 2 4321-2 ####[facility] LABORATORYCLIA [id number] [place] [address] [place] Creatinine [Mass/Vol] 0.47 mg/dL Low 0.51-0.95 [facility] Comment on above: Order Comment: Speci men Type: BLOOD SPECIMENOrdering Facility: [facility] Address: [address] [phone] Result Comment: Marilin ents receiving either N-Acetylcysteine (NAC) or Metamizole prior to venipuncture, may have falsely depressed results. Performed By: #### 2 4321-2 ####[facility] LABORATORYCLIA [id number] [place] [address] [place] Creatinine and Glomerular filtration rate.predicted panel (S/P/Bld) 118 mL/min/1.73m??? Normal >=60 [facility] Comment on above: Order Comment: Speci men Type: BLOOD SPECIMENOrdering Facility: [facility] Address: [address] [place] [address] Result Comment: Chrissy mated Glomerular Filtration Rate (eGFR) is calculated using the 2020 CKD-EPI creatinine equation. This equation utilizes serum creatinine, sex, and age as parameters. The creatinine assay has traceable calibration to isotope dilution-mass spectrometry. Refer to KDIGO guidelines for clinical interpretation. In patients with unstable renal function, e.g. those with acute kidney injury, the eGFR may not accurately reflect actual GFR. Performed By: #### 2 4321-2 ####[facility] LABORATORYCLIA [id number] [place] [address] [place] Glucose [Mass/Vol] 101 mg/dL High 70-100 [facility] Comment on above: Order Comment: Syd ramos Type: BLOOD SPECIMENOrdering Facility: [facility] Address: [address] [phone] Result Comment: The [place] [employer] (ADA) provides guidance for cutoff values for fasting glucose and random glucose. The ADA defines fasting as no caloric intake for at least 8 hours. Fasting plasma glucose results between 100 to 125 mg/dL indicate increased risk for diabetes (prediabetes).Fasting plasma glucose results greater than or equal to 126 mg/dL meet the criteria for diagnosis of diabetes. In the absence of unequivocal hyperglycemia, results should be confirmed by repeat testing. In a patient with classic symptoms of hyperglycemia or hyperglycemic crisis, random plasma glucose results greater than or equal to 200 mg/dL meet the criteria for diagnosis of diabetes.Reference: Standards of Medical Care in Diabetes 2016, [place] [employer]. Diabetes Care. 2016.39(Suppl 1).Results may be falsely elevated after the administration of Sulfapyridine.Results may be falsely depressed after the administration of Sulfasalazine. Performed By: #### 2 4321-2 ####[facility] LABORATORYCLIA [id number] [place] [address] [place] Potassium [Moles/Vol] 3.7 mmol/L Normal 3.5-5.1 [facility] Comment on above: Order Comment: Speci men Type: BLOOD SPECIMENOrdering Facility: [facility] Address: [address] [place] [address] Performed By: #### 2 4321-2 ####[facility] LABORATORYCLIA [id number] [address] [place] Sodium [Moles/Vol] 142 mmol/L Normal 136-145 [facility] Comment on above: Order Comment: Speci men Type: BLOOD SPECIMENOrdering Facility: [facility] Address: [address] [place] [address] Performed By: #### 2 4321-2 ####[facility] LABORATORYCLIA [id number] [place] [address] [place] Urea nitrogen [Mass/Vol] 8 mg/dL Normal 7-26 [facility] Comment on above: Order Comment: Speci men Type: BLOOD SPECIMENOrdering Facility: [facility] Address: [address] [place] [address] Performed By: #### 2 4321-2 ####[facility] LABORATORYCLIA [id number] [place] [id number] [place] CBC panel Auto (Bld)on 12-06 Erythrocyte distribution width (RBC) [Ratio] 13.2 % Normal 11.5-15.0 [facility] Comment on above: Order Comment: Speci men Type: BLOOD SPECIMENOrdering Facility: [facility] Address: [address] [place] [address] Performed By: #### 5 8410-2 ####[facility] LABORATORYCLIA [id number] [address] [place] Hematocrit (Bld) [Volume fraction] 44.2 % Normal 36.0-46.0 [facility] Comment on above: Order Comment: Speci men Type: BLOOD SPECIMENOrdering Facility: [facility] Address: [address] [place] [address] Performed By: #### 5 8410-2 ####[facility] LABORATORYCLIA [id number] [place] [address] [place] Hemoglobin (Bld) [Mass/Vol] 15.4 g/dL Normal 11.5-15.5 [facility] Comment on above: Order Comment: Speci men Type: BLOOD SPECIMENOrdering Facility: [facility] Address: [address] [place] [address] Performed By: #### 5 8410-2 ####[facility] LABORATORYCLIA [id number] [address] [place] MCH (RBC) [Entitic mass] 32.5 pg Normal 26.0-34.0 [facility] Comment on above: Order Comment: Speci men Type: BLOOD SPECIMENOrdering Facility: [facility] Address: [address] [place] [address] Performed By: #### 5 8410-2 ####[facility] LABORATORYCLIA [id number] [address] [place] MCHC (RBC) [Mass/Vol] 34.8 g/dL Normal 30.5-36.0 [facility] Comment on above: Order Comment: Speci men Type: BLOOD SPECIMENOrdering Facility: [facility] Address: [address] [place], [place] [address] Performed By: #### 5 8410-2 ####[facility] LABORATORYCLIA [id number] [address] [place] MCV (RBC) [Entitic vol] 93.2 fL Normal 80.0-100.0 [facility] Comment on above: Order Comment: Speci men Type: BLOOD SPECIMENOrdering Facility: [facility] Address: [address] [place] [address] Performed By: #### 5 8410-2 ####[facility] LABORATORYCLIA [id number] [place] [id number] [place] Nucleated RBC (Bld) [#/Vol] 10*3/uL Normal <0.01 [facility] Comment on above: Order Comment: Speci men Type: BLOOD SPECIMENOrdering Facility: [facility] Address: [address] [place] [place] [address] Performed By: #### 5 8410-2 ####[facility] LABORATORYCLIA [id number] [place] [id number] [place] Platelet mean volume (Bld) [Entitic vol] 9.8 fL Normal 9.0-12.7 [facility] Comment on above: Order Comment: Speci men Type: BLOOD SPECIMENOrdering Facility: [facility] Address: [address] [place] [address] Performed By: #### 5 8410-2 ####[facility] LABORATORYCLIA [id number] [address] [place] Platelets (Bld) [#/Vol] 133 10*3/uL Low 150-400 [facility] Comment on above: Order Comment: Speci men Type: BLOOD SPECIMENOrdering Facility: [facility] Address: [address] [place] [address] Result Comment: Micr otainer sample. No clot detected. Performed By: #### 5 8410-2 ####[facility] LABORATORYCLIA [id number] [place] [id number] [place] RBC (Bld) [#/Vol] 4.74 10*6/uL Normal 3.90-5.20 [facility] Comment on above: Order Comment: Speci men Type: BLOOD SPECIMENOrdering Facility: [facility] Address: [address] [place] [address] Performed By: #### 5 8410-2 ####[facility] LABORATORYCLIA [id number] [place] [id number] [place] WBC (Bld) [#/Vol] 7.18 10*3/uL Normal 3.70-11.00 [facility] Comment on above: Order Comment: Speci men Type: BLOOD SPECIMENOrdering Facility: [facility] Address: [address] [place] [address] Performed By: #### 5 8410-2 ####[facility] LABORATORYCLIA [id number] [place] [id number] [facility] [place] THERAPY NTon 12-06-2024 THERAPY NT Normal [facility] THERAPY NT Normal [facility] Basic metabolic 2000 panelon 12-05-2024 Anion gap [Moles/Vol] 9 mmol/L Normal 5-16 [facility] Comment on above: Order Comment: Speci men Type: BLOOD SPECIMENOrdering Facility: [facility] Address: [address] [place] [address] Performed By: #### 2 4321-2 ####[facility] LABORATORYCLIA [id number] [place] [address] [place] Calcium [Mass/Vol] 9.1 mg/dL Normal 8.5-10.5 [facility] Comment on above: Order Comment: Speci men Type: BLOOD SPECIMENOrdering Facility: [facility] Address: [address] [place] [address] Performed By: #### 2 4321-2 ####[facility] LABORATORYCLIA [id number] [place] [id number] [place] Chloride [Moles/Vol] 107 mmol/L Normal 98-107 [facility] Comment on above: Order Comment: Speci men Type: BLOOD SPECIMENOrdering Facility: [facility] Address: [address] [place] [address] Performed By: #### 2 4321-2 ####[facility] LABORATORYCLIA [id number] [place] [id number] [place] CO2 [Moles/Vol] 23 mmol/L Normal 21-32 [facility] Comment on above: Order Comment: Speci men Type: BLOOD SPECIMENOrdering Facility: [facility] Address: [address] [place] [address] Performed By: #### 2 4321-2 ####[facility] LABORATORYCLIA [id number] [place] [id number] [place] Creatinine [Mass/Vol] 0.56 mg/dL Normal 0.51-0.95 [facility] Comment on above: Order Comment: Syd ramos Type: BLOOD SPECIMENOrdering Facility: [facility] Address: [address] [place] [address] Result Comment: Marilin ents receiving either N-Acetylcysteine (NAC) or Metamizole prior to venipuncture, may have falsely depressed results. Performed By: #### 2 4321-2 ####[facility] LABORATORYCLIA [id number] [address] Creatinine and Glomerular filtration rate.predicted panel (S/P/Bld) 113 mL/min/1.73m??? Normal >=60 [facility] Comment on above: Order Comment: Syd ramos Type: BLOOD SPECIMENOrdering Facility: [facility] Address: [address] [place] [address] Result Comment: Chrissy mated Glomerular Filtration Rate (eGFR) is calculated using the 2020 CKD-EPI creatinine equation. This equation utilizes serum creatinine, sex, and age as parameters. The creatinine assay has traceable calibration to isotope dilution-mass spectrometry. Refer to KDIGO guidelines for clinical interpretation. In patients with unstable renal function, e.g. those with acute kidney injury, the eGFR may not accurately reflect actual GFR. Performed By: #### 2 4321-2 ####[facility] LABORATORYCLIA [id number] [place] [address] [place] Glucose [Mass/Vol] 114 mg/dL High 70-100 [facility] Comment on above: Order Comment: Syd ramos Type: BLOOD SPECIMENOrdering Facility: [facility] Address: [address] [place] [address] Result Comment: The [place] [employer] (ADA) provides guidance for cutoff values for fasting glucose and random glucose. The ADA defines fasting as no caloric intake for at least 8 hours. Fasting plasma glucose results between 100 to 125 mg/dL indicate increased risk for diabetes (prediabetes).Fasting plasma glucose results greater than or equal to 126 mg/dL meet the criteria for diagnosis of diabetes. In the absence of unequivocal hyperglycemia, results should be confirmed by repeat testing. In a patient with classic symptoms of hyperglycemia or hyperglycemic crisis, random plasma glucose results greater than or equal to 200 mg/dL meet the criteria for diagnosis of diabetes.Reference: Standards of Medical Care in Diabetes 2016, [place] [employer]. Diabetes Care. 2016.39(Suppl 1).Results may be falsely elevated after the administration of Sulfapyridine.Results may be falsely depressed after the administration of Sulfasalazine. Performed By: #### 2 4321-2 ####[facility] LABORATORYCLIA [id number] [place] [address] [place] Potassium [Moles/Vol] 3.9 mmol/L Normal 3.5-5.1 [facility] Comment on above: Order Comment: Syd ramos Type: BLOOD SPECIMENOrdering Facility: [facility] Address: [address] [place] [place] [address] Performed By: #### 2 4321-2 ####[facility] LABORATORYCLIA [id number] [place] [address] [place] Sodium [Moles/Vol] 139 mmol/L Normal 136-145 [facility] Comment on above: Order Comment: Syd ramos Type: BLOOD SPECIMENOrdering Facility: [facility] Address: [address] [place] [address] Performed By: #### 2 4321-2 ####[facility] LABORATORYCLIA [id number] [place] [address] [place] Urea nitrogen [Mass/Vol] 8 mg/dL Normal 7-26 [facility] Comment on above: Order Comment: Syd ramos Type: BLOOD SPECIMENOrdering Facility: [facility] Address: [address] [place] [address] Performed By: #### 2 4321-2 ####[facility] LABORATORYCLIA [id number] [address] [place] CASE MANAGEMon 12-05-2024 CASE MANAGEM Normal [facility] CBC panel Auto (Bld)on 12-05 Erythrocyte distribution width (RBC) [Ratio] 13.4 % Normal 11.5-15.0 [facility] Comment on above: Order Comment: Speci men Type: BLOOD SPECIMENOrdering Facility: [facility] Address: [address] [place] [address] Performed By: #### 5 8410-2 ####[facility] LABORATORYCLIA [id number] [address] [place] Hematocrit (Bld) [Volume fraction] 43.1 % Normal 36.0-46.0 [facility] Comment on above: Order Comment: Speci men Type: BLOOD SPECIMENOrdering Facility: [facility] Address: [address] [place] [address] Performed By: #### 5 8410-2 ####[facility] LABORATORYCLIA [id number] [address] [place] Hemoglobin (Bld) [Mass/Vol] 14.6 g/dL Normal 11.5-15.5 [facility] Comment on above: Order Comment: Speci men Type: BLOOD SPECIMENOrdering Facility: [facility] Address: [address] [place] [address] Performed By: #### 5 8410-2 ####[facility] LABORATORYCLIA [id number] [place] [address] [place] MCH (RBC) [Entitic mass] 32.1 pg Normal 26.0-34.0 [facility] Comment on above: Order Comment: Speci men Type: BLOOD SPECIMENOrdering Facility: [facility] Address: [address] [place] [address] Performed By: #### 5 8410-2 ####[facility] LABORATORYCLIA [id number] [place] [id number] [place] MCHC (RBC) [Mass/Vol] 33.9 g/dL Normal 30.5-36.0 [facility] Comment on above: Order Comment: Speci men Type: BLOOD SPECIMENOrdering Facility: [facility] Address: [address] [place] [address] Performed By: #### 5 8410-2 ####[facility] LABORATORYCLIA [id number] [place] [id number] [facility] MCV (RBC) [Entitic vol] 94.7 fL Normal 80.0-100.0 [facility] Comment on above: Order Comment: Speci men Type: BLOOD SPECIMENOrdering Facility: [facility] Address: [address] [place] [address] Performed By: #### 5 8410-2 ####[facility] LABORATORYCLIA [id number] [address] Nucleated RBC (Bld) [#/Vol] 10*3/uL Normal <0.01 [facility] Comment on above: Order Comment: Speci men Type: BLOOD SPECIMENOrdering Facility: [facility] Address: [address] [place] [address] Performed By: #### 5 8410-2 ####[facility] LABORATORYCLIA [id number] [address] [place] Platelet mean volume (Bld) [Entitic vol] 8.8 fL Low 9.0-12.7 [facility] Comment on above: Order Comment: Speci men Type: BLOOD SPECIMENOrdering Facility: [facility] Address: [address] [place] [address] Performed By: #### 5 8410-2 ####[facility] LABORATORYCLIA [id number] [address] [place] Platelets (Bld) [#/Vol] 129 10*3/uL Low 150-400 [facility] Comment on above: Order Comment: Speci men Type: BLOOD SPECIMENOrdering Facility: [facility] Address: [address] [place] [address] Result Comment: No c lot detected. Performed By: #### 5 8410-2 ####[facility] LABORATORYCLIA [id number] [place] [id number] [place] RBC (Bld) [#/Vol] 4.55 10*6/uL Normal 3.90-5.20 [facility] Comment on above: Order Comment: Speci men Type: BLOOD SPECIMENOrdering Facility: [facility] Address: [address] [place], [place] [address] Performed By: #### 5 8410-2 ####[facility] LABORATORYCLIA [id number] [place] [id number] [place] WBC (Bld) [#/Vol] 5.71 10*3/uL Normal 3.70-11.00 [facility] Comment on above: Order Comment: Speci men Type: BLOOD SPECIMENOrdering Facility: [facility] Address: [address] [place] [address] Performed By: #### 5 8410-2 ####[facility] LABORATORYCLIA [id number] [place] [id number] [facility] [place] ALLIED HEALTHon 12-04-2024 [facility] Bacteria Throat Culton 12-04 Bacteria identified Cx Nom (Throat) CULTURE, THROAT: No Beta hemolytic streptococci isolated. [facility] Comment on above: Performed By: #### 6 26-2 ####[facility] LABORATORYCLIA [id number] [place] [id number] [facility] [place] CASE MGT INIT ASSon 2024 CASE MGT INIT [facility] CBC panel Auto (Bld)on 12-04 Erythrocyte distribution width (RBC) [Ratio] 13.8 % Normal 11.5-15.0 [facility] Comment on above: Order Comment: Speci men Type: BLOOD SPECIMENOrdering Facility: [facility] Address: [address] [place], [place] [address] Performed By: #### 5 8410-2 ####[facility] LABORATORYCLIA [id number] [place] [id number] [place] Hematocrit (Bld) [Volume fraction] 46.1 % High 36.0-46.0 [facility] Comment on above: Order Comment: Speci men Type: BLOOD SPECIMENOrdering Facility: [facility] Address: [address] [place] [address] Performed By: #### 5 8410-2 ####[facility] LABORATORYCLIA [id number] [place] [address] [place] Hemoglobin (Bld) [Mass/Vol] 15.6 g/dL High 11.5-15.5 [facility] Comment on above: Order Comment: Speci men Type: BLOOD SPECIMENOrdering Facility: [facility] Address: [address] [place] [address] Performed By: #### 5 8410-2 ####[facility] LABORATORYCLIA [id number] [place] [address] [place] MCH (RBC) [Entitic mass] 32.0 pg Normal 26.0-34.0 [facility] Comment on above: Order Comment: Speci men Type: BLOOD SPECIMENOrdering Facility: [facility] Address: [address] [place] [address] Performed By: #### 5 8410-2 ####[facility] LABORATORYCLIA [id number] [address] [place] MCHC (RBC) [Mass/Vol] 33.8 g/dL Normal 30.5-36.0 [facility] Comment on above: Order Comment: Speci men Type: BLOOD SPECIMENOrdering Facility: [facility] Address: [address] [place] [place] [address] Performed By: #### 5 8410-2 ####[facility] LABORATORYCLIA [id number] [address] [place] MCV (RBC) [Entitic vol] 94.5 fL Normal 80.0-100.0 [facility] Comment on above: Order Comment: Speci men Type: BLOOD SPECIMENOrdering Facility: [facility] Address: [address] [place] [address] Performed By: #### 5 8410-2 ####[facility] LABORATORYCLIA [id number] [place] [address] [place] Nucleated RBC (Bld) [#/Vol] 10*3/uL Normal <0.01 [facility] Comment on above: Order Comment: Speci men Type: BLOOD SPECIMENOrdering Facility: [facility] Address: [address] [place] [address] Performed By: #### 5 8410-2 ####[facility] LABORATORYCLIA [id number] [place] [id number] [place] Platelet mean volume (Bld) [Entitic vol] 9.2 fL Normal 9.0-12.7 [facility] Comment on above: Order Comment: Speci men Type: BLOOD SPECIMENOrdering Facility: [facility] Address: [address] [place] [address] Performed By: #### 5 8410-2 ####[facility] LABORATORYCLIA [id number] [place] [address] [place] Platelets (Bld) [#/Vol] 123 10*3/uL Low 150-400 [facility] Comment on above: Order Comment: Speci men Type: BLOOD SPECIMENOrdering Facility: [facility] Address: [address] [place] [address] Performed By: #### 5 8410-2 ####[facility] LABORATORYCLIA [id number] [place] [address] [place] RBC (Bld) [#/Vol] 4.88 10*6/uL Normal 3.90-5.20 [facility] Comment on above: Order Comment: Speci men Type: BLOOD SPECIMENOrdering Facility: [facility] Address: [address] [place] [address] Performed By: #### 5 8410-2 ####[facility] LABORATORYCLIA [id number] [place] [address] [place] WBC (Bld) [#/Vol] 5.52 10*3/uL Normal 3.70-11.00 [facility] Comment on above: Order Comment: Speci men Type: BLOOD SPECIMENOrdering Facility: [facility] Address: [address] [place], [place] [address] Performed By: #### 5 8410-2 ####[facility] LABORATORYCLIA [id number] [place] [id number] [place] CONSULTon 12-04-2024 CONSULT Normal [facility] CRP SerPl-mCncon 12-04-2024 CRP [Mass/Vol] mg/L Normal <1.0 [facility] Comment on above: Order Comment: Speci men Type: BLOOD SPECIMENOrdering Facility: [facility] Address: [address] [place] [address] Performed By: #### 1 988-5 ####[facility] LABORATORYCLIA [id number] [address] [place] CT BRAIN WO IVCONon 12-05-19 CT BRAIN WO IVCON Normal [facility] CT NECK SOFT TISSUE W IVCONo n 12-04-2024 CT NECK SOFT TISSUE W IVCON Normal [facility] Comprehensive metabolic 2000 panelon 12-04-2024 Albumin [Mass/Vol] 3.2 g/dL Normal 3.2-5.0 [facility] Comment on above: Order Comment: Speci men Type: BLOOD SPECIMENOrdering Facility: [facility] Address: [address] [place] [address] Performed By: #### 2 4323-8, 57631-0 ####[facility] LABORATORYCLIA [id number] [place] [address] [place] ALP [Catalytic activity/Vol] 67 U/L Normal 45-117 [facility] Comment on above: Order Comment: Speci men Type: BLOOD SPECIMENOrdering Facility: [facility] Address: [address] [place] [address] Performed By: #### 2 4323-8, 00419-0 ####[facility] LABORATORYCLIA [id number] [place] [id number] [place] ALT [Catalytic activity/Vol] 22 U/L Normal 13-61 [facility] Comment on above: Order Comment: Speci men Type: BLOOD SPECIMENOrdering Facility: [facility] Address: [address] [place] [address] Result Comment: Resu lts may be falsely depressed after the administration of Sulfasalazine and/or Sulfapyridine. Performed By: #### 2 4323-8, ####[facility] LABORATORYCLIA [id number] [place] [id number] [place] Anion gap [Moles/Vol] 10 mmol/L Normal 5-16 [facility] Comment on above: Order Comment: Speci men Type: BLOOD SPECIMENOrdering Facility: [facility] Address: [address] [place] [address] Performed By: #### 2 4323-8, ####[facility] LABORATORYCLIA [id number] [place] [id number] [place] AST [Catalytic activity/Vol] 23 U/L Normal 8-34 [facility] Comment on above: Order Comment: Speci men Type: BLOOD SPECIMENOrdering Facility: [facility] Address: [address] [place] [address] Result Comment: Resu lts may be falsely depressed after the administration of Sulfasalazine and/or Sulfapyridine. Performed By: #### 2 4323-8, ####[facility] LABORATORYCLIA [id number] [place] [id number] [place] Bilirubin [Mass/Vol] 0.6 mg/dL Normal 0.2-1.0 [facility] Comment on above: Order Comment: Speci men Type: BLOOD SPECIMENOrdering Facility: [facility] Address: [address] [place] [address] Performed By: #### 2 4323-8, ####[facility] LABORATORYCLIA [id number] [place] [id number] [place] Calcium [Mass/Vol] 9.5 mg/dL Normal 8.5-10.5 [facility] Comment on above: Order Comment: Speci men Type: BLOOD SPECIMENOrdering Facility: [facility] Address: [address] [place] [address] Performed By: #### 2 4323-8, ####[facility] LABORATORYCLIA [id number] [place] [id number] [place] Chloride [Moles/Vol] 109 mmol/L High 98-107 [facility] Comment on above: Order Comment: Speci men Type: BLOOD SPECIMENOrdering Facility: [facility] Address: [address] [place] [address] Performed By: #### 2 4323-8, ####[facility] LABORATORYCLIA [id number] [place] [id number] [place] CO2 [Moles/Vol] 24 mmol/L Normal 21-32 [facility] Comment on above: Order Comment: Speci men Type: BLOOD SPECIMENOrdering Facility: [facility] Address: [address] [place] [address] Performed By: #### 2 4323-8, ####[facility] LABORATORYCLIA [id number] [place] [id number] [place] Creatinine [Mass/Vol] 0.63 mg/dL Normal 0.51-0.95 [facility] Comment on above: Order Comment: Speci men Type: BLOOD SPECIMENOrdering Facility: [facility] Address: [address] [place] [address] Result Comment: Marilin ents receiving either N-Acetylcysteine (NAC) or Metamizole prior to venipuncture, may have falsely depressed results. Performed By: #### 2 4323-8, ####[facility] LABORATORYCLIA [id number] [place] [address] [place] Creatinine and Glomerular filtration rate.predicted panel (S/P/Bld) 110 mL/min/1.73m??? Normal >=60 [facility] Comment on above: Order Comment: Speci men Type: BLOOD SPECIMENOrdering Facility: [facility] Address: [address] [place] [address] Result Comment: Chrissy mated Glomerular Filtration Rate (eGFR) is calculated using the 2020 CKD-EPI creatinine equation. This equation utilizes serum creatinine, sex, and age as parameters. The creatinine assay has traceable calibration to isotope dilution-mass spectrometry. Refer to KDIGO guidelines for clinical interpretation. In patients with unstable renal function, e.g. those with acute kidney injury, the eGFR may not accurately reflect actual GFR. Performed By: #### 2 4323-8, 49410-0 ####[facility] LABORATORYCLIA [id number] [place] [id number] [place] Glucose [Mass/Vol] 89 mg/dL Normal 70-100 [facility] Comment on above: Order Comment: Syd ramos Type: BLOOD SPECIMENOrdering Facility: [facility] Address: [address] [place] [address] Result Comment: The [place] [employer] (ADA) provides guidance for cutoff values for fasting glucose and random glucose. The ADA defines fasting as no caloric intake for at least 8 hours. Fasting plasma glucose results between 100 to 125 mg/dL indicate increased risk for diabetes (prediabetes).Fasting plasma glucose results greater than or equal to 126 mg/dL meet the criteria for diagnosis of diabetes. In the absence of unequivocal hyperglycemia, results should be confirmed by repeat testing. In a patient with classic symptoms of hyperglycemia or hyperglycemic crisis, random plasma glucose results greater than or equal to 200 mg/dL meet the criteria for diagnosis of diabetes.Reference: Standards of Medical Care in Diabetes 2016, [place] [employer]. Diabetes Care. 2016.39(Suppl 1).Results may be falsely elevated after the administration of Sulfapyridine.Results may be falsely depressed after the administration of Sulfasalazine. Performed By: #### 2 4323-8, ####[facility] LABORATORYCLIA [id number] [place] [id number] [place] Potassium [Moles/Vol] 3.9 mmol/L Normal 3.5-5.1 [facility] Comment on above: Order Comment: Syd ramos Type: BLOOD SPECIMENOrdering Facility: [facility] Address: [address] [place] [id number] Performed By: #### 2 4323-8, ####[facility] LABORATORYCLIA [id number] [place] [id number] [place] Protein [Mass/Vol] 6.8 g/dL Normal 6.0-8.5 [facility] Comment on above: Order Comment: Speci men Type: BLOOD SPECIMENOrdering Facility: [facility] Address: [address] [place] [address] Performed By: #### 2 4323-8, 42253-8 ####[facility] LABORATORYCLIA [id number] [place] [id number] [place] Sodium [Moles/Vol] 143 mmol/L Normal 136-145 [facility] Comment on above: Order Comment: Speci men Type: BLOOD SPECIMENOrdering Facility: [facility] Address: [address] [place] [address] Performed By: #### 2 4323-8, 58187-2 ####[facility] LABORATORYCLIA [id number] [place] [id number] [place] Urea nitrogen [Mass/Vol] 9 mg/dL Normal 7- [facility] Comment on above: Order Comment: Speci men Type: BLOOD SPECIMENOrdering Facility: [facility] Address: [address] [place] [address] Performed By: #### 2 4323-8, 97985-4 ####[facility] LABORATORYCLIA [id number] [place] [id number] [place] ED NOTEon 12-04-2024 ED NOTE Normal [facility] ED PROV NOTEon 12-04-2024 ED PROV NOTE Normal [facility] ED PROV NOTE Normal [facility] ESR Westergren method (Bld) [Velocity]on 12-04-2024 ESR (Bld) [Velocity] 2 mm/h Normal 0-20 [facility] Comment on above: Order Comment: Speci men Type: BLOOD SPECIMENOrdering Facility: [facility] Address: [address] [place] [address] Performed By: #### 4 537-7 ####[facility] LABORATORYCLIA [id number] [address] [place] HISTORY PHYSICALon HISTORY PHYSICAL Normal [facility] Magnesium SerPl-mCncon 12-04 Magnesium [Mass/Vol] 1.9 mg/dL Normal 1.6-2.6 [facility] Comment on above: Order Comment: Speci men Type: BLOOD SPECIMENOrdering Facility: [facility] Address: [address] [place] [address] Performed By: #### 2 4323-8, 96077-8 ####[facility] LABORATORYCLIA [id number] [address] [place] NURSING PROGon 12-04-2024 NURSING PROG Normal [facility] Procalcitonin SerPl-mCncon 0 12-04-2024 Procalcitonin [Mass/Vol] 0.04 ng/mL Normal 0.00-0.50 [facility] Comment on above: Order Comment: Speci men Type: BLOOD SPECIMENOrdering Facility: [facility] Address: [address] [place] [address] Result Comment: PCT Concentration InterpretationPCT <=0.1 ng/mL:Normal range for healthy adultsPCT >0.1 ng/mL and <0.5 ng/mL:Systemic infection (sepsis) is possible and may require antibiotic treatment, but other conditions are known to elevate PCT as well.PCT >0.5 ng/mL:Should be considered at risk for developing severe sepsis or septic shock.PCT >2.0 ng/mL:Important systemic inflammatory response. Almost exclusively indicates episode of severe bacterial sepsis or septic shock. Performed By: #### 3 3959-8, 4086-5 ####[facility] LABORATORYCLIA [id number] [place] [id number] [place] S pyo DNA Throat Ql AMCIE+prob shirlene 12-04-2024 S. pyogenes DNA MACIE+probe Ql (Throat) Not detected Normal Not detected [facility] Comment on above: Order Comment: Speci men Type: SWABOrdering Facility: [facility] Address: [address] [place] [address] Performed By: #### 6 0489-2 ####[facility] LABORATORYCLIA [id number] [place] [address] [place] SEPSIS LACTATEon 12-04-2024 Lactate [Moles/Vol] 1.8 mmol/L Normal 0.4-2.0 [facility] Comment on above: Order Comment: Speci men Type: BLOOD SPECIMENOrdering Facility: [facility] Address: [address] [place] [address] Performed By: #### S LACT ####[facility] LABORATORYCLIA [id number] [address] [place] Valproate SerPl-mCncon 12-04 Valproate [Mass/Vol] 38.3 ug/mL Low 50.0-100.0 [facility] Comment on above: Order Comment: Speci men Type: BLOOD SPECIMENOrdering Facility: [facility] Address: [address] [place] [address] Result Comment: Refe rence ranges and high/low indicator flags are provided as general guidelines only. The treating physician must determine appropriate target levels/dosing based on the specific clinical situation. Performed By: #### 3 3959-8, 4086-5 ####[facility] LABORATORYCLIA [id number] [address] OF [facility] .Auto Diffon 12-03-2024 Basophil, Absolute 0.0 10 3/mcL Normal 0.0-0.3 RHIANNON MAN MASSILLON Comment on above: Performed By: #### A DIFF, CBC, ANEU, GFR, CMP, MORPH, LIP, MDW ####Dilshad Duduvdgux4578 [place], [place] [address] Basophils/100 WBC (Bld) 0.5 % Normal 0.0-2.5 DILSHAD MASSILLON Comment on above: Performed By: #### A DIFF, CBC, ANEU, GFR, CMP, MORPH, LIP, MDW ####Dilshad Rrpyttqms1609 [place], [place] [address] Eosinophil, Absolute 0.1 10 3/mcL Normal 0.0-0.7 AU LTMAN MASSILLON Comment on above: Performed By: #### A DIFF, CBC, ANEU, GFR, CMP, MORPH, LIP, MDW ####Dilshad Wduasdqsl7639 [place], [place] [address] Eosinophils/100 WBC (Bld) 1.8 % Normal 0.0-6.0 DILSHAD MASSILLON Comment on above: Performed By: #### A DIFF, CBC, ANEU, GFR, CMP, MORPH, LIP, MDW ####Dilshad Toatopcpk1207 [place], [place] [address] Lymphocyte, Absolute 2.1 10 3/mcL Normal 0.9-4.3 AU LTMAN MASSILLON Comment on above: Performed By: #### A DIFF, CBC, ANEU, GFR, CMP, MORPH, LIP, MDW ####Dilshad Jyswwvkvj3055 [place], [place] [address] Lymphocytes/100 WBC (Bld) 32.0 % Normal 20.0-40.0 DILSHAD MASSILLON Comment on above: Performed By: #### A DIFF, CBC, ANEU, GFR, CMP, MORPH, LIP, MDW ####Dilshad Yngfrzvwu9046 [place], [place] [address] Monocyte, Absolute 1.8 10 3/mcL High 0.1-1.4 RHIANNON MAN MASSILLON Comment on above: Performed By: #### A DIFF, CBC, ANEU, GFR, CMP, MORPH, LIP, MDW ####Dilshad Wsosrijvf0537 [place], [place] [address] Monocytes/100 WBC (Bld) 27.1 % High 2.0-13.0 DILSHAD MASSILLON Comment on above: Performed By: #### A DIFF, CBC, ANEU, GFR, CMP, MORPH, LIP, MDW ####Dilshad Vfwlatvcl2401 [place], [place] [address] Neutrophils/100 WBC (Bld) 38.6 % Low 50.0-75.0 DILSHAD MASSILLON Comment on above: Performed By: #### A DIFF, CBC, ANEU, GFR, CMP, MORPH, LIP, MDW ####Dilshad Xjkyrkkdf4929 [place], [place] [address] .GFRon 12-03-2024 Estimated Glomerular Filtration Rate 108 ml/min/1.73sqm Normal [facility]AD [facility] Comment on above: Result Comment: Stages of Chronic Kidney Disease (CKD) Stage Description eGFR(ml/min/1.73 sq.m.) CKD 1 Normal kidney function or >=90 normal kindney function with possible kidney damage (ex. Proteinuria) CKD 2 Kidney damage with mild loss 60-89 of kidney function CKD 3a Mild to moderate loss of kidney 45-59 function CKD 3b Moderate to severe loss of 30-44 of kindey function CKD 4 Severe loss of kidney function 15-29 CKD 5 Kidney failure <15 Note: (go live 2024) the eGFR calculation was updated to the 2020 CKD-EPI creatinine equation without a race factor to calculate the eGFR results. Performed By: #### A DIFF, CBC, ANEU, GFR, CMP, MORPH, LIP, MDW ####Dilshad Byetrjljm5[address] [place] [address] .MDWon 12-03-2024 Monocyte Distribution Width 19.08 Normal 0.00-20.00 DILSHAD MASSILLON Comment on above: Result Comment: For ED adult patients suspected of sepsis, MDW<=20.0 does not rule out sepsis or risk of sepsis Performed By: #### A DIFF, CBC, ANEU, GFR, CMP, MORPH, LIP, MDW ####Dilshad Lsqbgfxer9209 [place] [address] .Morphon 12-03-2024 Platelet Estimate Slt Decreased Normal RHIANNON MAN MASSILLON Comment on above: Performed By: #### A DIFF, CBC, ANEU, GFR, CMP, MORPH, LIP, MDW ####Dilshad Ppnmqwkme1612 [place] [address] .NEUABSon 12-03-2024 Neutrophil, Absolute 2.5 10 3/mcL Normal 2.3-8.1 AU MAN MASSILLON Comment on above: Performed By: #### A DIFF, CBC, ANEU, GFR, CMP, MORPH, LIP, MDW ####Dilshad Dpsuhnsqj8770 [place] [address] CBCon 12-03-2024 Erythrocyte distribution width (RBC) [Ratio] 14.6 % Normal 11.5-15.5 DILSHAD MASSILLON Comment on above: Performed By: #### A DIFF, CBC, ANEU, GFR, CMP, MORPH, LIP, EDD ####Dilshad Umbmegwzd0581 [place] [phone] Hematocrit (Bld) [Volume fraction] 46.5 % High 34.0-46.0 DILSHAD MASSILLON Comment on above: Performed By: #### A DIFF, CBC, ANEU, GFR, CMP, MORPH, LIP, MDW ####Dilshad Jtsgmgtil9416 [place] [phone] Hgb 15.4 G/dL Normal 12.0-16.0 DILSHAD MASSILLON Comment on above: Performed By: #### A DIFF, CBC, ANEU, GFR, CMP, MORPH, LIP, W ####Dilshad Ben2021 [place] [phone] MCH (RBC) [Entitic mass] 31.8 pg Normal 27.0-33.0 DILSHAD MASSILLON Comment on above: Performed By: #### A DIFF, CBC, ANEU, GFR, CMP, MORPH, LIP, EDD ####Dilshad Ben20[address] [place] [phone] MCHC 33.2 G/dL Normal 32.0-36.0 DILSHAD MASSILLON Comment on above: Performed By: #### A DIFF, CBC, ANEU, GFR, CMP, MORPH, LIP, EDD ####Dilshad JohnsonGiluglemt1312 [place] [phone] MCV (RBC) [Entitic vol] 95.8 fL Normal 80.0-99.0 DILSHAD MASSILLON Comment on above: Performed By: #### A DIFF, CBC, ANEU, GFR, CMP, MORPH, LIP, W ####Dilshad Xmmfkdwdh3560 [place] [phone] Platelet 123 10 3/mcL Low 150-450 DILSHAD MASSILLON Comment on above: Performed By: #### A DIFF, CBC, ANEU, GFR, CMP, MORPH, LIP, W ####Dilshad Ben2021 [place], [place] [address] Platelet mean volume (Bld) [Entitic vol] 7.2 fL Normal 6.6-10.5 DILSHAD MASSILLON Comment on above: Performed By: #### A DIFF, CBC, ANEU, GFR, CMP, MORPH, LIP, MDW ####Dilshad Ben2021 [place] [address] RBC 4.85 10 6/mcL Normal 4.10-5.30 [facility] Comment on above: Performed By: #### A DIFF, CBC, ANEU, GFR, CMP, MORPH, LIP, MDW ####Dilshad JohnsonJubeijcyb4689 [place] [address] WBC 6.5 10 3/mcL Normal 4.5-10.8 [facility] Comment on above: Performed By: #### A DIFF, CBC, ANEU, GFR, CMP, MORPH, LIP, MDW ####Dilshad Ben2021 [place] [address] CBC W Auto Differential pane l (Bld)on 12-03-2024 Basophils (Bld) [#/Vol] 0.06 10*3/uL Normal <0.11 [facility] Comment on above: Order Comment: Speci men Type: BLOOD SPECIMENOrdering Facility: [facility] Address: [address] [place] [address] Performed By: #### 5 7021-8 ####[facility] LABORATORYCLIA [id number] [place] [address] [place] Basophils/100 WBC (Bld) 0.8 % Normal [facility] Comment on above: Order Comment: Speci men Type: BLOOD SPECIMENOrdering Facility: [facility] Address: [address] [place] [address] Performed By: #### 5 7021-8 ####[facility] LABORATORYCLIA [id number] [place] [address] [place] Differential cell count method Nom (Bld) Auto Normal [facility] Comment on above: Order Comment: Speci men Type: BLOOD SPECIMENOrdering Facility: [facility] Address: [address] [place] [address] Performed By: #### 5 7021-8 ####[facility] LABORATORYCLIA [id number] [place] [id number] [place] Eosinophils (Bld) [#/Vol] 0.06 10*3/uL Normal <0.46 [facility] Comment on above: Order Comment: Speci men Type: BLOOD SPECIMENOrdering Facility: [facility] Address: [address] [place] [place] [address] Performed By: #### 5 7021-8 ####[facility] LABORATORYCLIA [id number] [address] [place] Eosinophils/100 WBC (Bld) 0.8 % Normal [facility] Comment on above: Order Comment: Speci men Type: BLOOD SPECIMENOrdering Facility: [facility] Address: [address] [place] [address] Performed By: #### 5 7021-8 ####[facility] LABORATORYCLIA [id number] [address] [place] Erythrocyte distribution width (RBC) [Ratio] 13.8 % Normal 11.5-15.0 [facility] Comment on above: Order Comment: Speci men Type: BLOOD SPECIMENOrdering Facility: [facility] Address: [address] [place] [place] [address] Performed By: #### 5 7021-8 ####[facility] LABORATORYCLIA [id number] [place] [id number] [facility] [place] Hematocrit (Bld) [Volume fraction] 49.4 % High 36.0-46.0 [facility] Comment on above: Order Comment: Speci men Type: BLOOD SPECIMENOrdering Facility: [facility] Address: [address] [place] [address] Performed By: #### 5 7021-8 ####[facility] LABORATORYCLIA [id number] [place] [id number] [place] Hemoglobin (Bld) [Mass/Vol] 16.5 g/dL High 11.5-15.5 [facility] Comment on above: Order Comment: Speci men Type: BLOOD SPECIMENOrdering Facility: [facility] Address: [address] [place] [address] Performed By: #### 5 7021-8 ####[facility] LABORATORYCLIA [id number] [place] [address] [place] Immature granulocytes (Bld) [#/Vol] 0.05 10*3/uL Normal <0.10 [facility] Comment on above: Order Comment: Speci men Type: BLOOD SPECIMENOrdering Facility: [facility] Address: [address] [place] [address] Performed By: #### 5 7021-8 ####[facility] LABORATORYCLIA [id number] [address] [place] Immature granulocytes/100 WBC (Bld) 0.7 % Normal [facility] Comment on above: Order Comment: Speci men Type: BLOOD SPECIMENOrdering Facility: [facility] Address: [address] [place] [address] Performed By: #### 5 7021-8 ####[facility] LABORATORYCLIA [id number] [place] [address] [place] Lymphocytes (Bld) [#/Vol] 2.62 10*3/uL Normal 1.00-4.00 [facility] Comment on above: Order Comment: Speci men Type: BLOOD SPECIMENOrdering Facility: [facility] Address: [address] [place] [place] [address] Performed By: #### 5 7021-8 ####[facility] LABORATORYCLIA [id number] [place] [address] [place] Lymphocytes/100 WBC (Bld) 36.4 % Normal [facility] Comment on above: Order Comment: Speci men Type: BLOOD SPECIMENOrdering Facility: [facility] Address: [address] [place] [address] Performed By: #### 5 7021-8 ####[facility] LABORATORYCLIA [id number] [place] [address] [place] MCH (RBC) [Entitic mass] 32.1 pg Normal 26.0-34.0 [facility] Comment on above: Order Comment: Speci men Type: BLOOD SPECIMENOrdering Facility: [facility] Address: [address] [place] [address] Performed By: #### 5 7021-8 ####[facility] LABORATORYCLIA [id number] [address] [place] MCHC (RBC) [Mass/Vol] 33.4 g/dL Normal 30.5-36.0 [facility] Comment on above: Order Comment: Speci men Type: BLOOD SPECIMENOrdering Facility: [facility] Address: [address] [place] [address] Performed By: #### 5 7021-8 ####[facility] LABORATORYCLIA [id number] [address] [place] MCV (RBC) [Entitic vol] 96.1 fL Normal 80.0-100.0 [facility] Comment on above: Order Comment: Speci men Type: BLOOD SPECIMENOrdering Facility: [facility] Address: [address] [place] [address] Performed By: #### 5 7021-8 ####[facility] LABORATORYCLIA [id number] [address] [place] Monocytes (Bld) [#/Vol] 1.65 10*3/uL High <0.87 [facility] Comment on above: Order Comment: Speci men Type: BLOOD SPECIMENOrdering Facility: [facility] Address: [address] [place] [address] Performed By: #### 5 7021-8 ####[facility] LABORATORYCLIA [id number] [address] [place] Monocytes/100 WBC (Bld) 22.9 % Normal [facility] Comment on above: Order Comment: Speci men Type: BLOOD SPECIMENOrdering Facility: [facility] Address: [address] [place] [address] Performed By: #### 5 7021-8 ####[facility] LABORATORYCLIA [id number] [place] [id number] [place] Neutrophils (Bld) [#/Vol] 2.76 10*3/uL Normal 1.45-7.50 [facility] Comment on above: Order Comment: Speci men Type: BLOOD SPECIMENOrdering Facility: [facility] Address: [address] [place] [address] Performed By: #### 5 7021-8 ####[facility] LABORATORYCLIA [id number] [place] [address] [place] Neutrophils/100 WBC (Bld) 38.4 % Normal [facility] Comment on above: Order Comment: Speci men Type: BLOOD SPECIMENOrdering Facility: [facility] Address: [address] [place] [address] Performed By: #### 5 7021-8 ####[facility] LABORATORYCLIA [id number] [place] [address] [place] Nucleated RBC (Bld) [#/Vol] 10*3/uL Normal <0.01 [facility] Comment on above: Order Comment: Speci men Type: BLOOD SPECIMENOrdering Facility: [facility] Address: [address] [place] [address] Performed By: #### 5 7021-8 ####[facility] LABORATORYCLIA [id number] [place] [address] [place] Nucleated RBC/100 WBC (Bld) [Ratio] 0.0 /100 WBC Normal [facility] Comment on above: Order Comment: Speci men Type: BLOOD SPECIMENOrdering Facility: [facility] Address: [address] [place] [address] Performed By: #### 5 7021-8 ####[facility] LABORATORYCLIA [id number] [place] [address] [place] Platelet mean volume (Bld) [Entitic vol] 9.6 fL Normal 9.0-12.7 [facility] Comment on above: Order Comment: Speci men Type: BLOOD SPECIMENOrdering Facility: [facility] Address: [address] [place] [address] Performed By: #### 5 7021-8 ####[facility] LABORATORYCLIA [id number] [place] [address] [facility] [place] Platelets (Bld) [#/Vol] 141 10*3/uL Low 150-400 [facility] Comment on above: Order Comment: Speci men Type: BLOOD SPECIMENOrdering Facility: [facility] Address: [address] [place] [address] Result Comment: No c lot detected. Performed By: #### 5 7021-8 ####[facility] LABORATORYCLIA [id number] [address] [place] RBC (Bld) [#/Vol] 5.14 10*6/uL Normal 3.90-5.20 [facility] Comment on above: Order Comment: Speci men Type: BLOOD SPECIMENOrdering Facility: [facility] Address: [address] [place] [address] Performed By: #### 5 7021-8 ####[facility] LABORATORYCLIA [id number] [address] WBC (Bld) [#/Vol] 7.20 10*3/uL Normal 3.70-11.00 [facility] Comment on above: Order Comment: Speci men Type: BLOOD SPECIMENOrdering Facility: [facility] Address: [address] [place] [place] [address] Performed By: #### 5 7021-8 ####[facility] LABORATORYCLIA [id number] [place] [id number] [facility] [place] CMPon 12-03-2024 Albumin Level 3.4 G/dL Low 3.5-5.0 DILSHAD GUAN Comment on above: Performed By: #### A DIFF, CBC, ANEU, GFR, CMP, MORPH, LIP, MDW ####Dilshad Ben[address] [place], [place] [address] Albumin/Globulin [Mass ratio] 0.8 {ratio} Low 1.1-2.5 DILSHAD MASSILLON Comment on above: Performed By: #### A DIFF, CBC, ANEU, GFR, CMP, MORPH, LIP, MDW ####Dilshad Ben20[address] [place], [place] [address] ALP [Catalytic activity/Vol] 80 U/L Normal 40-135 DILSHAD MASSILLON Comment on above: Performed By: #### A DIFF, CBC, ANEU, GFR, CMP, MORPH, LIP, MDW ####Dilshadvazquez BeEfkgzgtwy8630 [place], [place] [address] ALT [Catalytic activity/Vol] 31 U/L Normal 14-59 DILSHAD MASSILLON Comment on above: Performed By: #### A DIFF, CBC, ANEU, GFR, CMP, MORPH, LIP, MDW ####Dilshadvazquez BeTvugskxna5844 [place] [phone] AST [Catalytic activity/Vol] 25 U/L Normal 10-40 IDLSHAD MASSILLON Comment on above: Performed By: #### A DIFF, CBC, ANEU, GFR, CMP, MORPH, LIP, MDW ####Dilshad Ben20[address] [place], [place] [address] Bili Total 0.4 mg/dL Normal 0.2-1.0 DILSHAD MASSILLO Comment on above: Result Comment: Use of this assay is not recommended for patients undergoing treatment with eltrombopag due to the potential for falsely elevated results. Performed By: #### A DIFF, CBC, ANEU, GFR, CMP, MORPH, LIP, MDW ####Dilshadvazquez BeGlijpwvwo1861 [place], [place] [address] BUN/Creatinine Ratio 21 ratio Normal 7-27 RHIANNON MAN MASSILLON Comment on above: Performed By: #### A DIFF, CBC, ANEU, GFR, CMP, MORPH, LIP, MDW ####Dilshadvazquez BeGdcqyjvll1488 [place], [place] [address] Calcium [Mass/Vol] 9.3 mg/dL Normal 8.4-10.2 AULTMA N MASSILLON Comment on above: Performed By: #### A DIFF, CBC, ANEU, GFR, CMP, MORPH, LIP, MDW ####Dilshad JohnsonQwkmqlcya9726 [place], [place] [address] Chloride [Moles/Vol] 104 mmol/L Normal 98-107 RHIANNON MAN MASSILLON Comment on above: Performed By: #### A DIFF, CBC, ANEU, GFR, CMP, MORPH, LIP, MDW ####Dilshad JohnsonPzwsnmwxl7659 [place], [place] [address] CO2 [Moles/Vol] 29 mmol/L Normal 22-29 DILSHAD MASSILLON Comment on above: Performed By: #### A DIFF, CBC, ANEU, GFR, CMP, MORPH, LIP, MDW ####Dilshad Ben20[address] [place], [place] [address] Creatinine [Mass/Vol] 0.67 mg/dL Normal 0.51-0.95 AUL TMAN MASSILLON Comment on above: Performed By: #### A DIFF, CBC, ANEU, GFR, CMP, MORPH, LIP, MDW ####Dilshad JohnsonVwkggytto2580 [place], [place] [address] Electrolyte Balance 7.0 mEq/L Normal 4.0-15.0 AULTM AN MASSILLON Comment on above: Performed By: #### A DIFF, CBC, ANEU, GFR, CMP, MORPH, LIP, MDW ####Dilshad Ben20[address] [place], [place] [address] Globulin 4.0 G/dL Normal 2.7-4.4 DILSHAD MASSILLON Comment on above: Performed By: #### A DIFF, CBC, ANEU, GFR, CMP, MORPH, LIP, MDW ####Dilshad JohnsonDhkltrpqy0711 [place], [place] [address] Glucose [Mass/Vol] 124 mg/dL High 70-105 AULTMA N MASSILLON Comment on above: Performed By: #### A DIFF, CBC, ANEU, GFR, CMP, MORPH, LIP, MDW ####Dilshad JohnsonMmhyrafrm7936 [place], [place] [address] Potassium [Moles/Vol] 3.7 mmol/L Normal 3.5-5.1 AUL TMAN MASSILLON Comment on above: Performed By: #### A DIFF, CBC, ANEU, GFR, CMP, MORPH, LIP, MDW ####Dilshad JohnsonMiuricdhl7393 [place], [place] [address] Sodium [Moles/Vol] 140 mmol/L Normal 136-145 AULTMA N MASSILLON Comment on above: Performed By: #### A DIFF, CBC, ANEU, GFR, CMP, MORPH, LIP, MDW ####Dilshad Oibcohkcs6380 [place], [place] [address] Total Protein 7.4 G/dL Normal 6.4-8.2 DILSHAD MASSILLON Comment on above: Performed By: #### A DIFF, CBC, ANEU, GFR, CMP, MORPH, LIP, MDW ####Dilshad JohnsonBqncmslnr4723 [place], [place] [address] Urea nitrogen [Mass/Vol] 14 mg/dL Normal 7-18 DILSHAD MASSILLON Comment on above: Performed By: #### A DIFF, CBC, ANEU, GFR, CMP, MORPH, LIP, MDW ####Dilshad JohnsonTifpvaodi9290 [place], [place] [address] Comprehensive metabolic 2000 panelon 12-03-2024 Albumin [Mass/Vol] 3.5 g/dL Normal 3.2-5.0 [facility] Comment on above: Order Comment: Speci men Type: BLOOD SPECIMENOrdering Facility: [facility] Address: [address] [place] [address] Performed By: #### 2 4323-8, , HSTROP ####[facility] LABORATORYCLIA [id number] [place] [address] [place] ALP [Catalytic activity/Vol] 76 U/L Normal 45-117 [facility] Comment on above: Order Comment: Speci men Type: BLOOD SPECIMENOrdering Facility: [facility] Address: [address] [place] [address] Performed By: #### 2 4323-8, , HSTROP ####[facility] LABORATORYCLIA [id number] [place] [id number] [place] ALT [Catalytic activity/Vol] 30 U/L Normal 13-61 [facility] Comment on above: Order Comment: Syd ramos Type: BLOOD SPECIMENOrdering Facility: [facility] Address: [address] [place] [address] Result Comment: Resu lts may be falsely depressed after the administration of Sulfasalazine and/or Sulfapyridine. Performed By: #### 2 4323-8, , HSTROP ####[facility] LABORATORYCLIA [id number] [place] [id number] [place] Anion gap [Moles/Vol] 10 mmol/L Normal 5-16 [facility] Comment on above: Order Comment: Syd ramos Type: BLOOD SPECIMENOrdering Facility: [facility] Address: [address] [place] [address] Performed By: #### 2 4323-8, , HSTROP ####[facility] LABORATORYCLIA [id number] [place] [address] [place] AST [Catalytic activity/Vol] Normal [facility] Comment on above: Order Comment: Syd ramos Type: BLOOD SPECIMENOrdering Facility: [facility] Address: [address] [place] [address] Result Comment: Unab le to assay due to interference from hemolysis. Suggest reorder as clinically indicated.Results may be falsely depressed after the administration of Sulfasalazine and/or Sulfapyridine. Performed By: #### 2 4323-8, , HSTROP ####[facility] LABORATORYCLIA [id number] [place] [id number] [place] Bilirubin [Mass/Vol] 0.6 mg/dL Normal 0.2-1.0 [facility] Comment on above: Order Comment: Syd ramos Type: BLOOD SPECIMENOrdering Facility: [facility] Address: [address] [place] [address] Performed By: #### 2 4323-8, , HSTROP ####[facility] LABORATORYCLIA [id number] [place] [id number] [place] Calcium [Mass/Vol] 9.7 mg/dL Normal 8.5-10.5 [facility] Comment on above: Order Comment: Speci men Type: BLOOD SPECIMENOrdering Facility: [facility] Address: [address] [place] [address] Performed By: #### 2 4323-8, , HSTROP ####[facility] LABORATORYCLIA [id number] [place] [id number] [place] Chloride [Moles/Vol] 107 mmol/L Normal 98-107 [facility] Comment on above: Order Comment: Speci men Type: BLOOD SPECIMENOrdering Facility: [facility] Address: [address] [place] [address] Performed By: #### 2 4323-8, , HSTROP ####[facility] LABORATORYCLIA [id number] [place] [id number] [place] CO2 [Moles/Vol] 24 mmol/L Normal 21-32 [facility] Comment on above: Order Comment: Speci men Type: BLOOD SPECIMENOrdering Facility: [facility] Address: [address] [place] [address] Performed By: #### 2 4323-8, , HSTROP ####[facility] LABORATORYCLIA [id number] [place] [id number] [place] Creatinine [Mass/Vol] 0.64 mg/dL Normal 0.51-0.95 [facility] Comment on above: Order Comment: Speci men Type: BLOOD SPECIMENOrdering Facility: [facility] Address: [address] [place] [address] Result Comment: Marilin ents receiving either N-Acetylcysteine (NAC) or Metamizole prior to venipuncture, may have falsely depressed results. Performed By: #### 2 4323-8, , HSTROP ####[facility] LABORATORYCLIA [id number] [address] [place] Creatinine and Glomerular filtration rate.predicted panel (S/P/Bld) 110 mL/min/1.73m??? Normal >=60 [facility] Comment on above: Order Comment: Irmapatrice ramos Type: BLOOD SPECIMENOrdering Facility: [facility] Address: [address] [place] [address] Result Comment: Chrissy mated Glomerular Filtration Rate (eGFR) is calculated using the 2020 CKD-EPI creatinine equation. This equation utilizes serum creatinine, sex, and age as parameters. The creatinine assay has traceable calibration to isotope dilution-mass spectrometry. Refer to KDIGO guidelines for clinical interpretation. In patients with unstable renal function, e.g. those with acute kidney injury, the eGFR may not accurately reflect actual GFR. Performed By: #### 2 4323-8, 62374-2, HSTROP ####[facility] LABORATORYCLIA [id number] [place] [address] [place] Glucose [Mass/Vol] 107 mg/dL High 70-100 [facility] Comment on above: Order Comment: Syd ramos Type: BLOOD SPECIMENOrdering Facility: [facility] Address: [address] [place] [address] Result Comment: The [place] [employer] (ADA) provides guidance for cutoff values for fasting glucose and random glucose. The ADA defines fasting as no caloric intake for at least 8 hours. Fasting plasma glucose results between 100 to 125 mg/dL indicate increased risk for diabetes (prediabetes).Fasting plasma glucose results greater than or equal to 126 mg/dL meet the criteria for diagnosis of diabetes. In the absence of unequivocal hyperglycemia, results should be confirmed by repeat testing. In a patient with classic symptoms of hyperglycemia or hyperglycemic crisis, random plasma glucose results greater than or equal to 200 mg/dL meet the criteria for diagnosis of diabetes.Reference: Standards of Medical Care in Diabetes 2016, [place] [employer]. Diabetes Care. 2016.39(Suppl 1).Results may be falsely elevated after the administration of Sulfapyridine.Results may be falsely depressed after the administration of Sulfasalazine. Performed By: #### 2 4323-8, 13485-9, HSTROP ####[facility] LABORATORYCLIA [id number] [place] [address] [place] Potassium [Moles/Vol] Normal [facility] Comment on above: Order Comment: Speci men Type: BLOOD SPECIMENOrdering Facility: [facility] Address: [address] [place] [address] Result Comment: Unab le to assay due to interference from hemolysis. Suggest reorder as clinically indicated. Performed By: #### 2 4323-8, , HSTROP ####[facility] LABORATORYCLIA [id number] [place] [id number] [place] Protein [Mass/Vol] 7.4 g/dL Normal 6.0-8.5 [facility] Comment on above: Order Comment: Speci men Type: BLOOD SPECIMENOrdering Facility: [facility] Address: [address] [place] [address] Performed By: #### 2 4323-8, , HSTROP ####[facility] LABORATORYCLIA [id number] [place] [id number] [place] Sodium [Moles/Vol] 141 mmol/L Normal 136-145 [facility] Comment on above: Order Comment: Speci men Type: BLOOD SPECIMENOrdering Facility: [facility] Address: [address] [place] [address] Performed By: #### 2 4323-8, , HSTROP ####[facility] LABORATORYCLIA [id number] [place] [id number] [place] Urea nitrogen [Mass/Vol] 11 mg/dL Normal 7-26 [facility] Comment on above: Order Comment: Speci men Type: BLOOD SPECIMENOrdering Facility: [facility] Address: [address] [place] [address] Performed By: #### 2 4323-8, , HSTROP ####[facility] LABORATORYCLIA [id number] [place] [id number] [place] ECG COMPLETEon 12-03-2024 ECG COMPLETE Normal [facility] ED NOTEon 12-03-2024 ED NOTE HNO ID: [id number] Author: RANDALL HADDAD RN Service: ? Author Type: Registered Nurse Type: ED Notes Filed: 12/03/2024 22:23 Note Text: Bed: 11-ED Expected date: 12/03/24 Expected time: Means of arrival: Comments: pit Normal [facility] ED Triage Noteon 12-03-2024 ED Triage Note Normal [facility] HIGH SENSITIVITY TROPONIN Io n 12-03-2024 Tropinin I.cardiac panel High sensitivity method <2.5 Normal 0.0-34.0 [facility] Comment on above: Order Comment: Speci men Type: BLOOD SPECIMENOrdering Facility: [facility] Address: [address] [place] [address] Performed By: #### 2 4323-8, 29808-7, HSTROP ####[facility] LABORATORYCLIA [id number] [address] [place] LIPon 12-03-2024 Lipase Level 49 U/L Normal 16-77 DILSHAD GUAN Comment on above: Performed By: #### A DIFF, CBC, ANEU, GFR, CMP, MORPH, LIP, MDW ####Dilshad Ben[address] [place] [id number] Magnesium SerPl-mCncon 12-03 Magnesium [Mass/Vol] 2.0 mg/dL Normal 1.6-2.6 [facility] Comment on above: Order Comment: Speci men Type: BLOOD SPECIMENOrdering Facility: [facility] Address: [address] [place] [place] [address] Performed By: #### 2 4323-8, , HSTROP ####[facility] LABORATORYCLIA [id number] [address] [place] SEPSIS LACTATEon 12-03-2024 Lactate [Moles/Vol] 2.7 mmol/L High 0.4-2.0 [facility] Comment on above: Order Comment: Speci men Type: BLOOD SPECIMENOrdering Facility: [facility] Address: [address] [place] [address] Result Comment: CRIT ICAL Performed By: #### S LACT ####[facility] LABORATORYCLIA [id number] [place] [address] [facility] UAMICon 12-03-2024 UA Bacteria Trace Abnormal Negative DILSHAD MASSILLON Comment on above: Performed By: #### C ISI, EDD HAZEL, MG, CBC, GFR, ANEU #### Dilshad [address] [place], [place] [address] UA RBC 5-10 Abnormal 0-2 DILSHAD MASSILLON Comment on above: Performed By: #### C ILIR SNOWDEN MDW, MG, CBC, GFR, ANEU #### Dilshad [address] [place], [place] [address] UA Squam Epithelial Rare Normal 0-20 AULTM AN MASSILLON Comment on above: Performed By: #### C ISI, EDD HAZEL, MG, CBC, GFR, ANEU #### Dilshad [address] [place], [place] [address] UA WBC 3-5 Normal 0-5 DILSHAD MASSILLON Comment on above: Performed By: #### C ILIR SNOWDEN MDW, MG, CBC, GFR, ANEU #### Dilshad [address] [place], [place] [address] XR CHEST 1V FRONTALon 2024 XR CHEST 1V FRONTAL Normal [facility] UAon 12-02-2024 Color (U) Yellow Normal DILSHAD MASSILLON Comment on above: Performed By: #### C ILIR SNOWDEN MDW, MG, CBC, GFR, ANEU #### Dilshad [address] [place], [place] [address] Glucose (U) [Mass/Vol] Negative Normal Negative DILSHAD MASSILLON Comment on above: Performed By: #### C ISI, MD ILIRW, MG, CBC, GFR, ANEU #### Dilshad [address] [place], [place] [address] Ketones Ql (U) Trace Normal Neg-Trace DILSHAD MASSILLON Comment on above: Performed By: #### C ILIR SNOWDEN MDW, MG, CBC, GFR, ANEU #### Dilshad [address] [place], [place] [address] UA Appear Clear Normal DILSHAD MASSILLON Comment on above: Performed By: #### C ILIR SNOWDEN MDW, MG, CBC, GFR, ANEU #### Dilshad [address] [place], [place] [address] UA Blood Moderate Abnormal Neg-Trace DILSHAD MASSILLON Comment on above: Performed By: #### C ILIR SNOWDEN MDW, MG, CBC, GFR, ANEU #### Dilshad [address] [place], [place] [address] UA Leuk Est Negative Normal Negative DILSHAD MASSILLON Comment on above: Performed By: #### C ILIR SNOWDEN MDW, MG, CBC, GFR, ANEU #### Dilshad [address] [place], [place] [address] UA Nitrite Negative Normal Negative DILSHAD MASSILLON Comment on above: Performed By: #### C ILIR SNOWDEN MDW, MG, CBC, GFR, ANEU #### Dilshad [address] [place], [place] [address] UA pH 6.5 Normal 5.0 - 8.0 DILSHAD MASSILLON Comment on above: Performed By: #### C ILIR SNOWDEN MDW, MG, CBC, GFR, ANEU #### Dilshad [address] [place], [place] [address] UA Protein Negative Normal Negative DILSHAD MASSILLON Comment on above: Performed By: #### C ILIR SNOWDEN MDW, MG, CBC, GFR, ANEU #### Dilshad [address] [place], [place] [address] UA Spec Grav 1.025 Normal DILSHAD MASSILLON Comment on above: Performed By: #### C ILIR SNOWDEN MDW, MG, CBC, GFR, ANEU #### Dilshad [address] [place], [place] [address] UA Specimen Type Clean Catch Normal DILSHAD MASSILLON Comment on above: Performed By: #### C ILIR SNOWDEN MDW, MG, CBC, GFR, ANEU #### Dilshad [address] [place], [place] [address] UA Urobilinogen 2.0 E.U./dL Abnormal DILSHAD MASSILLON Comment on above: Performed By: #### C ISI, EDD HAZEL, MG, CBC, GFR, ANEU #### Dilshad [address] [place], [place] [address] Urobilinogen (U) [Mass/Vol] Negative Normal Neg-Trace DILSHAD MASSILLON Comment on above: Performed By: #### C ISI, EDD HAZEL, MG, CBC, GFR, ANEU #### Dilshad [address] [place], [place] [address] .Auto Diffon 10-16-2024 Basophil, Absolute 0.0 10 3/mcL Normal 0.0-0.3 RHIANNON MAN MASSILLON Comment on above: Performed By: #### M ORPHHAZEL ADIFF, MDW, CBC ####Dilshad [address]ll[address] [place], [place] [address] Basophils/100 WBC (Bld) 0.6 % Normal 0.0-2.5 DILSHAD MASSILLON Comment on above: Performed By: #### M ORPHHAZEL ADIFF, MDW, CBC ####Dilshad R[address]qunlvj8551 [place], [place] [address] Eosinophil, Absolute 0.0 10 3/mcL Normal 0.0-0.7 AU LTMAN MASSILLON Comment on above: Performed By: #### M ORPHHAZEL ADIFF, MDW, CBC ####Dilshad Qrwjecojj9719 [place], [place] [address] Eosinophils/100 WBC (Bld) 0.4 % Normal 0.0-6.0 DILSHAD MASSILLON Comment on above: Performed By: #### M ORPH ANEUILIR MDW, CBC ####Dilshad [address]oxamykc3690 [place], [place] [address] Lymphocyte, Absolute 2.2 10 3/mcL Normal 0.9-4.3 AU LTMAN MASSILLON Comment on above: Performed By: #### M HAZEL MCCABE ADIFF, MDW, CBC ####Dilshad [address]sl[address] [place], [place] [address] Lymphocytes/100 WBC (Bld) 29.6 % Normal 20.0-40.0 DILSHAD MASSILLON Comment on above: Performed By: #### M HAZEL MCCABE ADIFF, MDW, CBC ####Dilshad R[address]whs[address] [place], [place] [address] Monocyte, Absolute 1.6 10 3/mcL High 0.1-1.4 RHIANNON MAN MASSILLON Comment on above: Performed By: #### M HAZEL MCCABE ADIFF, MDW, CBC ####Dilshad Lrgzdxrdt2168 [place], [place] [address] Monocytes/100 WBC (Bld) 22.0 % High 2.0-13.0 DILSHAD MASSILLON Comment on above: Performed By: #### M HAZEL MCCABE ADIFF, MDW, CBC ####Dilshad Pputywkgs3409 [place], [place] [address] Neutrophils/100 WBC (Bld) 47.4 % Low 50.0-75.0 DILSHAD MASSILLON Comment on above: Performed By: #### M HAZEL MCCABE ADIFF, MDW, CBC ####Dilshad [address]ynefv[address] [place], [place] [address] .GFRon 10-16-2024 Estimated Glomerular Filtration Rate 67 ml/min/1.73sqm Normal DILSHAD MASSILLON Comment on above: Result Comment: Stages of Chronic Kidney Disease (CKD) Stage Description eGFR(ml/min/1.73 sq.m.) CKD 1 Normal kidney function or >=90 normal kindney function with possible kidney damage (ex. Proteinuria) CKD 2 Kidney damage with mild loss 60-89 of kidney function CKD 3a Mild to moderate loss of kidney 45-59 function CKD 3b Moderate to severe loss of 30-44 of kindey function CKD 4 Severe loss of kidney function 15-29 CKD 5 Kidney failure <15 Note: (go live 2024) the eGFR calculation was updated to the 2020 CKD-EPI creatinine equation without a race factor to calculate the eGFR results. Performed By: #### L AC, GFR, CMP ####Dilshad [address] [place] [address] .MDWon 10-16-2024 Monocyte Distribution Width 16.09 Normal 0.00-20.00 DILSHAD MASSILLON Comment on above: Result Comment: For ED adult patients suspected of sepsis, MDW<=20.0 does not rule out sepsis or risk of sepsis Performed By: #### M HAZEL MCCABE ADIFF, MDW, CBC ####Dilshad [address] [place] [address] .Morphon 10-16-2024 Platelet Estimate Decreased Normal DILSHAD MASSILLON Comment on above: Performed By: #### M HAZEL MCCABE ADIFF, MDW, CBC ####Dilshad [address] [place] [address] RBC morphology finding Nom (Bld) Normal Normal DILSHAD MASSILLON Comment on above: Performed By: #### M HAZEL MCCABE ADIFF, MDW, CBC ####Dilshad [address] [place] [address] .NEUABSon 10-16-2024 Neutrophil, Absolute 3.5 10 3/mcL Normal 2.3-8.1 AU LTMAN MASSILLON Comment on above: Performed By: #### M HAZEL MCCABE ADIFF, MDW, CBC ####Dilshad [address] [place] [address] APTTon 10-16-2024 aPTT Coag (Bld) [Time] 32.9 s Normal 25.0-35.0 DILSHAD MASSILLON Comment on above: Result Comment: For Heparin anticoagulation therapy, the recommended therapeutic range is: 54-77 seconds. PLEASE REFERENCE THE PHARMACY PROTOCOL FOR DOSING. Performed By: #### P RO, APTT ####Dilshad [address] [place] [address] CBCon 10-16-2024 Erythrocyte distribution width (RBC) [Ratio] 14.4 % Normal 11.5-15.5 DILSHAD MASSILLON Comment on above: Performed By: #### M HAZEL MCCABE ADIFF, MDW, CBC ####Dilshad Lgclvqosf1065 [place], [place] [address] Hematocrit (Bld) [Volume fraction] 47.2 % High 34.0-46.0 DILSHAD MASSILLON Comment on above: Performed By: #### M HAZEL MCCABE ADIFF, MDW, CBC ####Dilshad [address]broheqar[address] [place], [place] [address] Hgb 16.2 G/dL High 12.0-16.0 DILSHAD MASSILLON Comment on above: Performed By: #### M HAZEL MCCABE ADIFF, MDW, CBC ####Dilshad [address] [place], [place] [address] MCH (RBC) [Entitic mass] 32.6 pg Normal 27.0-33.0 DILSHAD MASSILLON Comment on above: Performed By: #### M HAZEL MCCABE ADIFF, MDW, CBC ####Dilshad [address] [place] [phone] MCHC 34.2 G/dL Normal 32.0-36.0 DILSHAD MASSILLON Comment on above: Performed By: #### M HAZEL MCCABE ADIFF, MDW, CBC ####Dilshad Fu[address]rmsik[address] [place], [place] [address] MCV (RBC) [Entitic vol] 95.4 fL Normal 80.0-99.0 DILSHAD MASSILLON Comment on above: Performed By: #### M HAZEL MCCABE ADIFF, MDW, CBC ####Dilshad [address]azmhk[address] [place] [phone] Platelet 99 10 3/mcL Low 150-450 DILSHAD MASSILLON Comment on above: Performed By: #### M HAZEL MCCABE ADIFF, MDW, CBC ####Dilshad Ddtcwdiqd4035 [place], [place] [address] Platelet mean volume (Bld) [Entitic vol] 7.3 fL Normal 6.6-10.5 DILSHAD MASSILLON Comment on above: Performed By: #### M HAZEL MCCABE ADIFF, MDW, CBC ####Dilshad [address] [place] [phone] RBC 4.95 10 6/mcL Normal 4.10-5.30 DILSHAD MASSILLON Comment on above: Performed By: #### M HAZEL MCCABE ADIFF, MDW, CBC ####Dilshad JohnsonEqrcfurqg86[address] [place] [phone] WBC 7.3 10 3/mcL Normal 4.5-10.8 DILSHAD MASSILLON Comment on above: Performed By: #### M ORHAZEL SHAHID ADIFF, MDW, CBC ####Dilshad [address] [place] [phone] CMPon 10-16-2024 Albumin Level 3.8 G/dL Normal 3.5-5.0 DILSHAD MASSILLON Comment on above: Performed By: #### L AC, GFR, CMP ####Dilshad [address] [place] [address] Albumin/Globulin [Mass ratio] 1.0 {ratio} Low 1.1-2.5 DILSHAD MASSILLON Comment on above: Performed By: #### L AC, GFR, CMP ####Dilshad Coxsbohlr6[address] [place] [phone] ALP [Catalytic activity/Vol] 86 U/L Normal 40-135 DILSHAD MASSILLON Comment on above: Performed By: #### L AC, GFR, CMP ####Dilshad JohnsonUigbuiwad[address]19 [place] [phone] ALT [Catalytic activity/Vol] 17 U/L Normal 14-59 DILSHAD MASSILLON Comment on above: Performed By: #### L AC, GFR, CMP ####Dilshad JohnsonStldbsach9556 [place] [phone] AST [Catalytic activity/Vol] 16 U/L Normal 10-40 DILSHAD MASSILLON Comment on above: Performed By: #### L AC, GFR, CMP ####Dilshad JohnsonQinzhgmrm[address] [place], [place] [address] Bili Total 0.7 mg/dL Normal 0.2-1.0 DILSHAD MASSILLON Comment on above: Result Comment: Use of this assay is not recommended for patients undergoing treatment with eltrombopag due to the potential for falsely elevated results. Performed By: #### L AC, GFR, CMP ####Dilshad JohnsonCmtuhgiao0707 [place], [place] [address] BUN/Creatinine Ratio 9 ratio Normal 7-27 RHIANNON MAN MASSILLON Comment on above: Performed By: #### L AC, GFR, CMP ####Dilshad Cwr[address]riwd0[address] [place], [place] [address] Calcium [Mass/Vol] 9.6 mg/dL Normal 8.4-10.2 AULTMA N MASSILLON Comment on above: Performed By: #### L AC, GFR, CMP ####Dilshad JohnsonFnfynomcx8739 [place], [place] [address] Chloride [Moles/Vol] 106 mmol/L Normal 98-107 RHIANNON MAN MASSILLON Comment on above: Performed By: #### L AC, GFR, CMP ####Dilshad Nsfmjzgmi2109 [place], [place] [address] CO2 [Moles/Vol] 25 mmol/L Normal 22-29 DILSHAD MASSILLON Comment on above: Performed By: #### L AC, GFR, CMP ####Dilshad JohnsonYacmdhuhu9803 [place], [place] [address] Creatinine [Mass/Vol] 1.03 mg/dL High 0.55-1.02 AUL TMAN MASSILLON Comment on above: Result Comment: Test ing performed on Siemens Dimension EXL analyzer using a modified kinetic Marky technique. Performed By: #### L AC, GFR, CMP ####Dilshad Mepenjjec8793 [place], [place] [address] Electrolyte Balance 12.0 mEq/L Normal 4.0-15.0 AULTM AN MASSILLON Comment on above: Performed By: #### L AC, GFR, CMP ####Dilshad Edcdjhuwi7992 [place], [place] [address] Globulin 3.9 G/dL High 1.5-3.8 DILSHAD MASSILLON Comment on above: Performed By: #### L AC, GFR, CMP ####Dilshad Vfhkwulgj8320 [place], [place] [address] Glucose [Mass/Vol] 118 mg/dL High 70-105 AULTMA N MASSILLON Comment on above: Performed By: #### L AC, GFR, CMP ####Dilshad K[address]tehra44[address] [place], [place] [address] Potassium [Moles/Vol] 3.4 mmol/L Low 3.5-5.1 AUL TMAN MASSILLON Comment on above: Performed By: #### L AC, GFR, CMP ####Dilshad Iyz[address]lka9861 [place], [place] [address] Sodium [Moles/Vol] 143 mmol/L Normal 136-145 AULTMA N MASSILLON Comment on above: Performed By: #### L AC, GFR, CMP ####Dilshad Dbrfhljit7270 [place], [place] [address] Total Protein 7.7 G/dL Normal 6.4-8.2 DILSHAD MASSILLON Comment on above: Performed By: #### L AC, GFR, CMP ####Dilshad Yvmkysjub5147 [place] [phone] Urea nitrogen [Mass/Vol] 9 mg/dL Normal 7-18 DILSHAD MASSILLON Comment on above: Performed By: #### L AC, GFR, CMP ####Dilshad Obtrfjewk5284 [place], [place] [address] CVFLURVon 10-16-2024 FLU A PCR Negative Normal Negative DILSHAD MASSILLON Comment on above: Performed By: #### C MP, ADJASPREET, MDW, MG, CBC, GFR, ANEU #### Dilshad [address] [place], [place] [address] FLU B PCR Negative Normal Negative DILSHAD MASSILLON Comment on above: Performed By: #### C MP, ADIFF, MDW, MG, CBC, GFR, ANEU #### Dilshad [address] [place], [place] [address] RSV PCR Negative Normal Negative DILSHAD MASSILLON Comment on above: Performed By: #### C ILIR SNOWDEN MDW, MG, CBC, GFR, ANEU #### [facility] [address] [place] [address] SARS-CoV-2 (COVID-19) RNA MACIE+probe Ql (Unsp spec) Negative Normal Negative [facility] Comment on above: Result Comment: This test has been authorized by FDA under an EUA for use by authorized laboratories and has not been FDA cleared or approved. Results from the Xpert Xpress SARS-CoV-2/Flu/RSV or Xpert Xpress SARS-CoV-2 only test should be correlated with the clinical history, epidemiological data, and other data available to the clinician evaluating the patient. Performance of the Xpert Xpress SARS-CoV-2/Flu/RSV or Xpert Xpress SARS-CoV-2 only test has only been established in nasopharyngeal swab specimens. Erroneous test results might occur from improper specimen collection; failure to follow the recommended sample collection, handling, and storage procedures; technical error; or sample mix-up.False negative results may occur if virus is present at levels below the analytical limit of detection. Viral nucleic acid may persist in vivo, independent of virus viability. Detection of analyte target(s) does not imply that the corresponding virus(es) are infectious or are the causative agents for clinical symptoms.Recent patient exposure to FluMist or other live attenuated influenza vaccines may cause inaccurate positive results. Performed By: #### C ILIR SNOWDEN, EDD, MG, CBC, GFR, ANEU #### Dilshad [place] [address] [place] [address] LACon 10-16-2024 Lactic Acid Lvl 2.3 mmol/L High 0.4-2.0 [facility] Comment on above: Performed By: #### L AC, GFR, CMP ####Dilshad Qeuavuvrr35[address] [place] [address] PROon 10-16-2024 PT Coag (PPP) [Time] 11.4 s Normal 9.0-14.4 [facility] Comment on above: Performed By: #### P RO, APTT ####Dilshad Bgyhgylrz95[address] [place] [address] PT International Ratio 1.0 Normal DILSHAD MASSILLON Comment on above: Result Comment: The [place] [employer] (CHEST, 1992, 102:312S-25S) recommended therapeutic range for oral anticoagulant therapy is: LOW RISK: Prophylaxis of venous thrombosis INR: 2.0-3.0 Treatment of pulmonary embolism 2.0-3.0 Prevention of systemic embolism 2.0-3.0 HIGH RISK: Mechanical prosthetic valves 2.5-3.5 Performed By: #### P RO, APTT ####Dilshad Iixcsizrc6030 [place] [address] TROPHSon 10-16-2024 High Sensitivity Troponin I 10 ng/L Normal 0-51 DILSAHD MASSILLON Comment on above: Result Comment: High Sensitive Troponin I Reference Ranges: Female: 0-51 ng/L Male: 0-76 ng/L Testing performed on [employer] using a homogeneous sandwich chemiluminescent immunoassay based on NeuroSave technology. Performed By: #### T ROPHS ####Dilshad [address]qpfteat9432 [place] [address] UAon 10-16-2024 Color (U) Yellow Normal DILSHAD MASSILLON Comment on above: Performed By: #### U A, UAMIC ####Dilshad Qjbdsnewa8768 [place] [address] Glucose (U) [Mass/Vol] Negative Normal Negative DILSHAD MASSILLON Comment on above: Performed By: #### U A, UAMIC ####Dilshad Yeordfpok1771 [place] [address] Ketones Ql (U) Trace Normal Neg-Trace DILSHAD MASSILLON Comment on above: Performed By: #### U A, UAMIC ####Dilshad Rmgydrowo3062 [place] [address] UA Appear Clear Normal DILSHAD MASSILLON Comment on above: Performed By: #### U A, UAMIC ####Dilshad Xmfqumrfx4298 [place] [address] UA Blood Small Abnormal Neg-Trace DILSHAD MASSILLON Comment on above: Performed By: #### U A, UAMIC ####Dilshad [address]zvyejy28[address] [place] [address] UA Leuk Est Trace Normal Negative DILSHAD MASSILLON Comment on above: Performed By: #### U A, UAMIC ####Dilshad Znrvlmpqm2601 [place] [address] UA Nitrite Negative Normal Negative DILSHAD MASSILLON Comment on above: Performed By: #### U A, UAMIC ####Dilshad Pqldjcgsr3507 [place] [address] UA pH 7.0 Normal 5.0 - 8.0 DILSHAD MASSILLON Comment on above: Performed By: #### U A, UAMIC ####Dilshad Ijndcycxa8579 [place] [address] UA Protein 30 mg/dL Normal Negative DILSHAD MASSILLON Comment on above: Performed By: #### U A, UAMIC ####Dilshad JohnsonEsxeduezz4320 [place] [address] UA Spec Grav 1.020 Normal DILSHAD MASSILLON Comment on above: Performed By: #### U A, UAMIC ####Dilshad Jxiubxrkw4369 [place] [address] UA Specimen Type Straight Cath Normal AULTM AN [place]SILLON Comment on above: Performed By: #### U A, UAMIC ####Dilshad JohnsonMstccnvom0775 [place] [address] UA Urobilinogen 4.0 E.U./dL Abnormal DILSHAD MASSILLON Comment on above: Performed By: #### U A, UAMIC ####Dilshad Rcqbyputb3722 [place] [address] Urobilinogen (U) [Mass/Vol] Negative Normal Neg-Trace DILSHAD MASSILLON Comment on above: Performed By: #### U A, UAMIC ####Dilshad Lwnrdqkvy3150 [place] [address] UAMICon 10-16-2024 UA Bacteria Trace Abnormal Negative DILSHAD MASSILLON Comment on above: Performed By: #### U A, UAMIC ####Dilshad Iewerrjaa4201 [place] [address] UA RBC 3-5 Abnormal 0-2 DILSHAD MASSILLON Comment on above: Performed By: #### U A, UAMIC ####Dilshad Ben[address] [place] [phone] UA Squam Epithelial 3-5 Normal 0-20 AULTM AN [place]SI[place]ON Comment on above: Performed By: #### U A, UAMIC ####Dilshad JohnsonYlwxeidxh0541 [place] [address] UA WBC Rare Normal 0-5 DILSHAD MASSILLON Comment on above: Performed By: #### U A, UAMIC ####Dilshad JohnsonFbjmuyevm9947 [place] [address] PREGUon 10-11-2024 HCG ( test) Ql (U) Negative Normal DILSHAD MASSILLON Comment on above: Performed By: #### U A, PREGU, UAMIC ####Dilshad [address] [place] [address] test (u) int Invalid Interpretation Code DILSHAD MASSILLON Comment on above: Result Comment: HCG not detected. Very dilute urine specimens, as indicated by a low specific gravity, may not contain patient access representative levels of hCG. If is still suspected, a first morning urine specimen should be collected 48 hours later and tested. Performed By: #### U A, PREGU, UAMIC ####Dilshad [address] [place] [address] UAon 10-11-2024 Color (U) Yellow Normal DILSHAD MASSILLON Comment on above: Performed By: #### U A, PREGU, UAMIC ####Dilshda JohnsonUkusoolsj7970 [place] [phone] Glucose (U) [Mass/Vol] Negative Normal Negative DILSHAD MASSILLON Comment on above: Performed By: #### U A, PREGU, UAMIC ####Dilshad JohnsonTipjgiwyg1078 [place] [address] Ketones Ql (U) Negative Normal Neg-Trace DILSHAD MASSILLON Comment on above: Performed By: #### U A, PREGU, UAMIC ####Dilshad Wmromgjby8238 [place] [address] UA Appear Cloudy Abnormal DILSHAD MASSILLON Comment on above: Performed By: #### U A, PREGU, UAMIC ####Dilshad Ltjpbolgx6366 [place] [address] UA Blood Small Abnormal Neg-Trace DILSHAD MASSILLON Comment on above: Performed By: #### U A, PREGU, UAMIC ####Dilshad Wdvlytlkf7610 [place] [address] UA Leuk Est Moderate Abnormal Negative DILSHAD MASSILLON Comment on above: Performed By: #### U A, PREGU, UAMIC ####Dilshad Igfkwmjhw8986 [place] [address] UA Nitrite Negative Normal Negative DILSHAD MASSILLON Comment on above: Performed By: #### U A, PREGU, UAMIC ####Dilshad Hgxgflrsa8563 [place] [address] UA pH 7.5 Normal 5.0 - 8.0 DILSHAD MASSILLON Comment on above: Performed By: #### U A, PREGU, UAMIC ####Dilshad Qciuxmufr8660 [place] [address] UA Protein Negative Normal Negative DILSHAD MASSILLON Comment on above: Performed By: #### U A, PREGU, UAMIC ####Dilshad Bkgjpqppa1972 [place] [address] UA Spec Grav 1.015 Normal DILSHAD MASSILLON Comment on above: Performed By: #### U A, PREGU, UAMIC ####Dilshad Qlwrffjuo4144 [place] [address] UA Specimen Type Clean Catch Normal DILSHAD MASSILLON Comment on above: Performed By: #### U A, PREGU, UAMIC ####Dilshad Jdhuxeuof0039 [place] [address] UA Urobilinogen 1.0 E.U./dL Normal DILSHAD MASSILLON Comment on above: Performed By: #### U A, PREGU, UAMIC ####Dilshad Kxvxqwxpm3387 [place] [address] Urobilinogen (U) [Mass/Vol] Negative Normal Neg-Trace DILSHAD MASSILLON Comment on above: Performed By: #### U A, PREGU, UAMIC ####Dilshad Tosqormzs6849 [place] [address] UAMICon 10-11-2024 UA Amorphus 2+ /hpf Normal DILSHAD MASSILLON Comment on above: Performed By: #### U A, PREGU, UAMIC ####Dilshad Pmhnkosao4733 [place] [address] UA Bacteria 2+ /hpf Abnormal Negative DILSHAD MASSILLON Comment on above: Performed By: #### U A, PREGU, UAMIC ####Dilshad Reenuzmsk0217 [place] [address] UA Ghost cells 0-2 Abnormal DILSHAD MASSILLON Comment on above: Performed By: #### U A, PREGU, UAMIC ####Dilshad Xafcugbtj1416 [place] [address] UA Hyal Cast Rare Normal DILSHAD MASSILLON Comment on above: Performed By: #### U A, PREGU, UAMIC ####Dilshad Itcvwkivq3200 [place] [address] UA Mucous Trace Normal DILSHAD MASSILLON Comment on above: Performed By: #### U A, PREGU, UAMIC ####Dilshad Akhngichm4586 [place] [address] UA RBC 0-2 Normal 0-2 DILSHAD MASSILLON Comment on above: Performed By: #### U A, PREGU, UAMIC ####Dilshad Masygxnue6214 [place] [address] UA Squam Epithelial 0-2 Normal 0-20 AULTM AN MASSILLON Comment on above: Performed By: #### U A, PREGU, UAMIC ####Dilshad Ujfudsafq2057 [place] [address] UA WBC 0-2 Normal 0-5 DILSHAD MASSILLON Comment on above: Performed By: #### U A, PREGU, UAMIC ####Dilshad Xgojqqsgp9738 [place], [place] [address] .Auto Diffon 09-13-2024 Basophil, Absolute 0.0 10 3/mcL Normal 0.0-0.3 RHIANNON MAN MASSILLON Comment on above: Performed By: #### C MP, ADIFF, MDW, MG, CBC, GFR, ANEU #### Dilshad [place] [address] [place], [place] [address] Basophils/100 WBC (Bld) 0.5 % Normal 0.0-2.5 DILSHAD MASSILLON Comment on above: Performed By: #### C MP, ADIFF, MDW, MG, CBC, GFR, ANEU #### Dilshad [place] [address] [place], [place] [address] Eosinophil, Absolute 0.0 10 3/mcL Normal 0.0-0.7 AU LTMAN MASSILLON Comment on above: Performed By: #### C MP, ADIFF, MDW, MG, CBC, GFR, ANEU #### Dilshad [place] [address] [place], [place] [address] Eosinophils/100 WBC (Bld) 0.4 % Normal 0.0-6.0 DILSHAD MASSILLON Comment on above: Performed By: #### C MP, ADIFF, MDW, MG, CBC, GFR, ANEU #### Dilshad [place] [address] [place], [place] [address] Lymphocyte, Absolute 0.7 10 3/mcL Low 0.9-4.3 AU LTMAN MASSILLON Comment on above: Performed By: #### C MP, ADIFF, MDW, MG, CBC, GFR, ANEU #### Dilshad [place] [address] [place], [place] [address] Lymphocytes/100 WBC (Bld) 12.7 % Low 20.0-40.0 DILSHAD MASSILLON Comment on above: Performed By: #### C MP, ADIFF, MDW, MG, CBC, GFR, ANEU #### Dilshad [place] [address] [place], [place] [address] Monocyte, Absolute 1.2 10 3/mcL Normal 0.1-1.4 RHIANNON MAN MASSILLON Comment on above: Performed By: #### C MP, ADIFF, MDW, MG, CBC, GFR, ANEU #### Dilshad [place] [address] [place], [place] [address] Monocytes/100 WBC (Bld) 20.7 % High 2.0-13.0 DILSHAD MASSILLON Comment on above: Performed By: #### C MP, ADIFF, MDW, MG, CBC, GFR, ANEU #### Dilshad [place] [address] [place], [place] [address] Neutrophils/100 WBC (Bld) 65.7 % Normal 50.0-75.0 DILSHAD MASSILLON Comment on above: Performed By: #### C MP, ADIFF, MDW, MG, CBC, GFR, ANEU #### Dilshad [place] [address] [place], [place] [address] .GFRon 09-13-2024 Estimated Glomerular Filtration Rate 79 ml/min/1.73sqm Normal [facility] Comment on above: Result Comment: Stages of Chronic Kidney Disease (CKD) Stage Description eGFR(ml/min/1.73 sq.m.) CKD 1 Normal kidney function or >=90 normal kindney function with possible kidney damage (ex. Proteinuria) CKD 2 Kidney damage with mild loss 60-89 of kidney function CKD 3a Mild to moderate loss of kidney 45-59 function CKD 3b Moderate to severe loss of 30-44 of kindey function CKD 4 Severe loss of kidney function 15-29 CKD 5 Kidney failure <15 Note: (go live 2024) the eGFR calculation was updated to the 2020 CKD-EPI creatinine equation without a race factor to calculate the eGFR results. Performed By: #### C MP, ADIFF, MDW, MG, CBC, GFR, ANEU #### Dilshad [place] [address] [place], [place] [address] .MDWon 09-13-2024 Monocyte Distribution Width 24.19 High 0.00-20.00 DILSHAD MASSILLON Comment on above: Result Comment: For adults in ED, MDW>20.0 may be associated with a higher risk of sepsis during the first 12hrs of hospital admission Performed By: #### C ISI, MD ILIRW, MG, CBC, GFR, ANEU #### [facility] [address] [place] [address] .Morphon 09-13-2024 Anisocytosis Ql (Bld) 1+ Normal [facility] Comment on above: Performed By: #### C MP, ILIR, MDW, MG, CBC, GFR, ANEU #### [facility] [address] [place] [address] Platelet Estimate Decreased Normal [facility] Comment on above: Performed By: #### C ISI, ILIR, W, MG, CBC, GFR, ANEU #### [facility] [address] [place] [address] .NEUABSon 09-13-2024 Neutrophil, Absolute 3.8 10 3/mcL Normal 2.3-8.1 [facility] Comment on above: Performed By: #### C ISI, ILIR, MDW, MG, CBC, GFR, ANEU #### [facility] [address] [place] [address] CBCon 09-13-2024 Erythrocyte distribution width (RBC) [Ratio] 14.9 % Normal 11.5-15.5 [facility] Comment on above: Performed By: #### C ISI, ILIR, MDW, MG, CBC, GFR, ANEU #### [facility] [address] [place] [address] Hematocrit (Bld) [Volume fraction] 42.0 % Normal 34.0-46.0 [facility] Comment on above: Performed By: #### C ISI, ILIR, W, MG, CBC, GFR, ANEU #### [facility] [address] [place] [phone] Hgb 14.1 G/dL Normal 12.0-16.0 [facility] Comment on above: Performed By: #### C ISI, ILIR, W, MG, CBC, GFR, ANEU #### Dilshad [place] [address] [place], [place] [address] MCH (RBC) [Entitic mass] 32.2 pg Normal 27.0-33.0 DILSHAD MASSILLON Comment on above: Performed By: #### C MP, ADIFF, MDW, MG, CBC, GFR, ANEU #### Dilshad [address] [place], [place] [address] MCHC 33.6 G/dL Normal 32.0-36.0 DILSHAD MASSILLON Comment on above: Performed By: #### C MP, ADIFF, MDW, MG, CBC, GFR, ANEU #### Dilshad [place] [address] [place] [phone] MCV (RBC) [Entitic vol] 95.9 fL Normal 80.0-99.0 DILSHAD MASSILLON Comment on above: Performed By: #### C MP, ADIFF, MDW, MG, CBC, GFR, ANEU #### Dilshad [place] [address] [place] [phone] Platelet 78 10 3/mcL Low 150-450 DILSHAD MASSILLON Comment on above: Performed By: #### C MP, ADIFF, MDW, MG, CBC, GFR, ANEU #### Dilshad [place] [address] [place] [phone] Platelet mean volume (Bld) [Entitic vol] 7.3 fL Normal 6.6-10.5 DILSHAD MASSILLON Comment on above: Performed By: #### C MP, ADIFF, MDW, MG, CBC, GFR, ANEU #### Dilshad [place] [address] [place] [phone] RBC 4.38 10 6/mcL Normal 4.10-5.30 DILSHAD MASSILLON Comment on above: Performed By: #### C MP, ADIFF, MDW, MG, CBC, GFR, ANEU #### Dilshad [place] [address] [place] [phone] WBC 5.8 10 3/mcL Normal 4.5-10.8 DILSHAD MASSILLON Comment on above: Performed By: #### C MP, ADIFF, MDW, MG, CBC, GFR, ANEU #### Dilshad [place] [address] [place], [place] [address] CMPon 09-13-2024 Albumin Level 2.9 G/dL Low 3.5-5.0 DILSHAD MASSILLO Comment on above: Performed By: #### C MP, ADIFF, MDW, MG, CBC, GFR, ANEU #### Dilshad [address] [place], [place] [address] Albumin/Globulin [Mass ratio] 0.9 {ratio} Low 1.1-2.5 [facility]AD [facility] Comment on above: Performed By: #### C MP, ADIFF, MDW, MG, CBC, GFR, ANEU #### Dilshadvazquez Johnson[place] [address] [place], [place] [address] ALP [Catalytic activity/Vol] 73 U/L Normal 40-135 [facility]AD [facility] Comment on above: Performed By: #### C MP, ADIFF, MDW, MG, CBC, GFR, ANEU #### Dilshadvazquez [address] [address] [place], [place] [address] ALT [Catalytic activity/Vol] 28 U/L Normal 14-59 [facility]AD [facility] Comment on above: Performed By: #### C MP, ADIFF, MDW, MG, CBC, GFR, ANEU #### Dilshad [place] [address] [place], [place] [address] AST [Catalytic activity/Vol] 20 U/L Normal 10-40 [facility] Comment on above: Performed By: #### C MP, ADIFF, MDW, MG, CBC, GFR, ANEU #### Dilshad [place] [address] [place], [place] [address] Bili Total 0.4 mg/dL Normal 0.2-1.0 DILSHAD LYERLY Comment on above: Result Comment: Use of this assay is not recommended for patients undergoing treatment with eltrombopag due to the potential for falsely elevated results. Performed By: #### C MP, ADIFF, MDW, MG, CBC, GFR, ANEU #### Dilshad [place] [address] [place], [place] [address] BUN/Creatinine Ratio 11 ratio Normal 7-27 RHIANNON MAN MASSILLON Comment on above: Performed By: #### C MP, ADIFF, MDW, MG, CBC, GFR, ANEU #### Dilshad [place] [address] [place], [place] [address] Calcium [Mass/Vol] 8.9 mg/dL Normal 8.4-10.2 AULTMA N MASSILLON Comment on above: Performed By: #### C MP, ADIFF, MDW, MG, CBC, GFR, ANEU #### Dilshad [place] [address] [place], [place] [address] Chloride [Moles/Vol] 103 mmol/L Normal 98-107 RHIANNON MAN MASSILLON Comment on above: Performed By: #### C MP, ADIFF, MDW, MG, CBC, GFR, ANEU #### Dilshad [place] [address] [place] [phone] CO2 [Moles/Vol] 28 mmol/L Normal 22-29 DILSHAD MASSILLON Comment on above: Performed By: #### C MP, ADIFF, MDW, MG, CBC, GFR, ANEU #### Dilshad [place] [address] [place], [place] [address] Creatinine [Mass/Vol] 0.90 mg/dL Normal 0.55-1.02 AUL TMAN MASSILLON Comment on above: Result Comment: Test ing performed on Siemens Dimension EXL analyzer using a modified kinetic Marky technique. Performed By: #### C MP, ADIFF, MDW, MG, CBC, GFR, ANEU #### Dilshad [place] [address] [place], [place] [address] Electrolyte Balance 7.0 mEq/L Normal 4.0-15.0 AULTM AN MASSILLON Comment on above: Performed By: #### C MP, ADIFF, MDW, MG, CBC, GFR, ANEU #### Dilshad [place] [address] [place], [place] [address] Globulin 3.3 G/dL Normal 1.5-3.8 DILSHAD MASSILLON Comment on above: Performed By: #### C MP, ADIFF, MDW, MG, CBC, GFR, ANEU #### Dilshad [place] [address] [place], [place] [address] Glucose [Mass/Vol] 139 mg/dL High 70-105 AULTMA N MASSILLON Comment on above: Performed By: #### C ILIR SNOWDEN MDW, MG, CBC, GFR, ANEU #### Dilshad [place] [address] [place], [place] [address] Potassium [Moles/Vol] 3.7 mmol/L Normal 3.5-5.1 AUL TMAN MASSILLON Comment on above: Performed By: #### C ISI, ILIR, W, MG, CBC, GFR, ANEU #### Dilshad [place] [address] [place], [place] [address] Sodium [Moles/Vol] 138 mmol/L Normal 136-145 AULTMA N MASSILLON Comment on above: Performed By: #### C ISI, ILIR, W, MG, CBC, GFR, ANEU #### Dilshad [place] [address] [place], [place] [address] Total Protein 6.2 G/dL Low 6.4-8.2 DILSHAD MASSILLON Comment on above: Performed By: #### C ILIR SNOWDEN, W, MG, CBC, GFR, ANEU #### Dilshad [place] [address] [place], [place] [address] Urea nitrogen [Mass/Vol] 10 mg/dL Normal 7-18 DILSHAD MASSILLON Comment on above: Performed By: #### C ILIR SNOWDEN, W, MG, CBC, GFR, ANEU #### Dilshad [place] [address] [place], [place] [address] CVFLURVon 09-13-2024 FLU A PCR Positive Abnormal Negative DILSHAD MASSILLON Comment on above: Performed By: #### C VFLURV ####Dilshad JohnsonMavfubn[address] [place], [place] [address] FLU B PCR Negative Normal Negative DILSHAD MASSILLON Comment on above: Performed By: #### C VFLURV ####Dilshadsocorro JohnsonRnpkbrgjm0288 [place], [place] [address] RSV PCR Negative Normal Negative DILSHAD MASSILLON Comment on above: Performed By: #### C VFLURV ####Dilshad Dxvewitex8621 [place], [place] [address] SARS-CoV-2 (COVID-19) RNA MACIE+probe Ql (Unsp spec) Negative Normal Negative [facility] Comment on above: Result Comment: This test has been authorized by FDA under an EUA for use by authorized laboratories and has not been FDA cleared or approved. Results from the Xpert Xpress SARS-CoV-2/Flu/RSV or Xpert Xpress SARS-CoV-2 only test should be correlated with the clinical history, epidemiological data, and other data available to the clinician evaluating the patient. Performance of the Xpert Xpress SARS-CoV-2/Flu/RSV or Xpert Xpress SARS-CoV-2 only test has only been established in nasopharyngeal swab specimens. Erroneous test results might occur from improper specimen collection; failure to follow the recommended sample collection, handling, and storage procedures; technical error; or sample mix-up.False negative results may occur if virus is present at levels below the analytical limit of detection. Viral nucleic acid may persist in vivo, independent of virus viability. Detection of analyte target(s) does not imply that the corresponding virus(es) are infectious or are the causative agents for clinical symptoms.Recent patient exposure to FluMist or other live attenuated influenza vaccines may cause inaccurate positive results. Performed By: #### C VFLURV ####Dilshad [address] [place], [place] [address] LACon 09-13-2024 Lactic Acid Lvl 1.5 mmol/L Normal 0.4-2.0 [place] Comment on above: Performed By: #### C ILIR SNOWDEN MDW, MG, CBC, GFR, ANEU #### Dilshad [address] [place], [place] [address] MGon 09-13-2024 Magnesium [Mass/Vol] 1.8 mg/dL Normal 1.8-2.4 [facility] Comment on above: Performed By: #### C ISI, ILIR, MDW, MG, CBC, GFR, ANEU #### Dilshad [place] [address] [place], [place] [address] PREGUon 09-13-2024 HCG ( test) Ql (U) Negative Normal DILSHAD MASSILLON Comment on above: Performed By: #### U AMIC, UA, PREGU ####Dilshad [address] [place] [address] test (u) int Invalid Interpretation Code DILSHAD MASSILLON Comment on above: Result Comment: HCG not detected. Very dilute urine specimens, as indicated by a low specific gravity, may not contain patient access representative levels of hCG. If is still suspected, a first morning urine specimen should be collected 48 hours later and tested. Performed By: #### U AMIC, UA, PREGU ####Dilshad Rwcslxhyq7749 [place] [phone] UAon 09-13-2024 Color (U) Yellow Normal DILSHAD MASSILLON Comment on above: Performed By: #### U AMIC, UA, PREGU ####Dilshad Phitlonbc7788 [place] [address] Glucose (U) [Mass/Vol] Negative Normal Negative DILSHAD MASSILLON Comment on above: Performed By: #### U AMIC, UA, PREGU ####Dilshad Tsxjdedzz5006 [place] [address] Ketones Ql (U) Negative Normal Neg-Trace DILSHAD MASSILLON Comment on above: Performed By: #### U AMIC, UA, PREGU ####Dilshad [address]omud6860 [place] [phone] UA Appear Cloudy Abnormal DILSHAD MASSILLON Comment on above: Performed By: #### U AMIC, UA, PREGU ####Dilshad Ffvgsgrla1768 [place] [phone] UA Blood Moderate Abnormal Neg-Trace DILSHAD MASSILLON Comment on above: Performed By: #### U AMIC, UA, PREGU ####Dilshad Lslzcgkgl6542 [place] [phone] UA Leuk Est Negative Normal Negative DILSHAD MASSILLON Comment on above: Performed By: #### U AMIC, UA, PREGU ####Dilshad Vxbxkasmb4984 [place] [address] UA Nitrite Negative Normal Negative DILSHAD MASSILLON Comment on above: Performed By: #### U AMIC, UA, PREGU ####Dilshad Ylfbnhrnr3379 [place] [address] UA pH 7.0 Normal 5.0 - 8.0 DILSHAD MASSILLON Comment on above: Performed By: #### U AMIC, UA, PREGU ####Dilshad Gznlqksmb8854 [place] [address] UA Protein Negative Normal Negative DILSHAD MASSILLON Comment on above: Performed By: #### U AMIC, UA, PREGU ####Dilshad Hewbfxtwk4014 [place] [address] UA Spec Grav 1.010 Abnormal DILSHAD MASSILLON Comment on above: Performed By: #### U AMIC, UA, PREGU ####Dilshad Txrfmzefk1105 [place] [address] UA Specimen Type Clean Catch Normal DILSHAD MASSILLON Comment on above: Performed By: #### U AMIC, UA, PREGU ####Dilshad Wnxudmcmv0633 [place] [address] UA Urobilinogen 2.0 E.U./dL Abnormal DILSHAD MASSILLON Comment on above: Performed By: #### U AMIC, UA, PREGU ####Dilshad Hvopgapqu2369 [place] [address] Urobilinogen (U) [Mass/Vol] Negative Normal Neg-Trace DILSHAD MASSILLON Comment on above: Performed By: #### U AMIC, UA, PREGU ####Dilshad Lnrxvcckg1297 [place] [address] UAMICon 09-13-2024 UA Amorphus 1+ /hpf Normal DILSHAD MASSILLON Comment on above: Performed By: #### U AMIC, UA, PREGU ####Dilshad Upwlcjxrq6324 [place] [address] UA Bacteria Trace Abnormal Negative DILSHAD MASSILLON Comment on above: Performed By: #### U AMIC, UA, PREGU ####Dilshad Fcrozwsbz8501 [place], [place] [address] UA RBC Rare Normal 0-2 DILSHAD MASSILLON Comment on above: Performed By: #### U AMIC, UA, PREGU ####Dilshad Gqfqdkueh6404 [place], [place] [address] UA Squam Epithelial Rare Normal 0-20 AULTM AN [place] Comment on above: Performed By: #### U AMIC, UA, PREGU ####Dilshad Jccojjzxh1631 [place] [address] UA WBC Rare Normal 0-5 DILSHAD MASSILLON Comment on above: Performed By: #### U AMIC, UA, PREGU ####Dilshad Qylejjhxp9595 [place], [place] [address] XR CHEST 2 VIEWSon XR CHEST 2 VIEWS ORIGINAL EXAMINATION: TWO XRAY VIEWS OF THE CHEST 09/13/2024 10:56 pm COMPARISON: Radiograph of the chest July 26, 2024 HISTORY: ORDERING SYSTEM PROVIDED HISTORY: Reason for Exam: PT FROM LONG TERM, ALTERED MS, + FLU A SOB FINDINGS: Cardiomediastinal silhouette is probably unchanged in size given differences in patient positioning. Costophrenic angles are sharp. No significant pleural fluid. No radiographic pneumothorax. No focal consolidation. Osseous structures grossly unchanged. IMPRESSION: No focal consolidation. Interpreted by: Javier Cates Preliminary Report By: Javier Cates Electronically signed By Javier Cates Dictated Date: 09/13/2024 11:01:35 PM Prelim Date: 09/13/2024 11:02:11 PM Sign Date: 09/13/2024 11:02:11 PM Ordering Provider: NOHEMI TALAVERA Normal DILSHAD MASSILLON .Auto Diffon 08-20-2024 Basophil, Absolute 0.1 10 3/mcL Normal 0.0-0.3 RHIANNON MAN [place] Comment on above: Performed By: #### C MP, ILIR, MDW, MG, CBC, GFR, ANEU #### Dilshad [place] [address] [place], [place] [address] Basophils/100 WBC (Bld) 0.6 % Normal 0.0-2.5 DILSHAD [place]LLON Comment on above: Performed By: #### C MP, ADIFF, MDW, MG, CBC, GFR, ANEU #### Dilshad [place] [address] [place], [place] [address] Eosinophil, Absolute 0.1 10 3/mcL Normal 0.0-0.7 AU LTMAN MASSILLON Comment on above: Performed By: #### C MP, ADIFF, MDW, MG, CBC, GFR, ANEU #### Dilshad [place] [address] [place], [place] [address] Eosinophils/100 WBC (Bld) 1.1 % Normal 0.0-6.0 DILSHAD MASSILLON Comment on above: Performed By: #### C MP, ADIFF, MDW, MG, CBC, GFR, ANEU #### Dilshad [place] [address] [place], [place] [address] Lymphocyte, Absolute 3.8 10 3/mcL Normal 0.9-4.3 AU LTMAN MAS[facility] Comment on above: Performed By: #### C MP, ADIFF, MDW, MG, CBC, GFR, ANEU #### Dilshad [place] [address] [place], [place] [address] Lymphocytes/100 WBC (Bld) 43.0 % High 20.0-40.0 DILSHAD MASSILLON Comment on above: Performed By: #### C MP, ADIFF, MDW, MG, CBC, GFR, ANEU #### Dilshad [place] [address] [place], [place] [address] Monocyte, Absolute 1.3 10 3/mcL Normal 0.1-1.4 RHIANNON MAN [facility] Comment on above: Performed By: #### C MP, ADIFF, MDW, MG, CBC, GFR, ANEU #### Dilshad [place] [address] [place], [place] [address] Monocytes/100 WBC (Bld) 14.6 % High 2.0-13.0 DILSHAD MASSILLON Comment on above: Performed By: #### C MP, ADIFF, MDW, MG, CBC, GFR, ANEU #### Dilshad [place] [address] [place], [place] [address] Neutrophils/100 WBC (Bld) 40.7 % Low 50.0-75.0 DILSHAD MAS[facility]LLON Comment on above: Performed By: #### C ILIR SNOWDEN MDW, MG, CBC, GFR, ANEU #### Dilshad [place] [address] [place], [place] [address] .GFRon 08-20-2024 GFR 73 ml/min/1.73sqm Normal DILSHAD MASSILLON Comment on above: Result Comment: GFR Population mean for , Non- Americans Ages 20-29 = 116 mL/min/1.73 sq.m. Ages 30-39 = 107 mL/min/1.73 sq.m. Ages 40-49 = 99 mL/min/1.73 sq.m. Ages 50-59 = 93 mL/min/1.73 sq.m. Ages 60-69 = 85 mL/min/1.73 sq.m. Ages 70+ = 75 mL/min/1.73 sq.m. Chronic Kidney Disease: Less than 60 mL/min/1.73 square meters End Stage Renal Disease: Less than 15 mL/min/1.73 square meters Performed By: #### C ILIR SNOWDEN MDW, MG, CBC, GFR, ANEU ####Dilshad Wtgdxtnfq2202 [place], [place] [address] GFR Non- 60 ml/min/1.73sqm Normal DILSHAD MASSILLON Comment on above: Result Comment: GFR Population mean for , Non- Americans Ages 20-29 = 116 mL/min/1.73 sq.m. Ages 30-39 = 107 mL/min/1.73 sq.m. Ages 40-49 = 99 mL/min/1.73 sq.m. Ages 50-59 = 93 mL/min/1.73 sq.m. Ages 60-69 = 85 mL/min/1.73 sq.m. Ages 70+ = 75 mL/min/1.73 sq.m. Chronic Kidney Disease: Less than 60 mL/min/1.73 square meters End Stage Renal Disease: Less than 15 mL/min/1.73 square meters Performed By: #### C ILIR SNOWDEN, EDD, MG, CBC, GFR, ANEU ####Dilshad J[address]yzss[address] [place] [address] .MDWon 08-20-2024 Monocyte Distribution Width 18.14 Normal 0.00-20.00 [facility] Comment on above: Result Comment: For ED adult patients suspected of sepsis, MDW<=20.0 does not rule out sepsis or risk of sepsis Performed By: #### C MP, ADIFF, MDW, MG, CBC, GFR, ANEU #### Dilshad [place] [address] [place] [address] .NEUABSon 08-20-2024 Neutrophil, Absolute 3.6 10 3/mcL Normal 2.3-8.1 [facility] Comment on above: Performed By: #### C MP, ADIFF, MDW, MG, CBC, GFR, ANEU #### Dilshad [place] [address] [place] [address] CBCon 08-20-2024 Erythrocyte distribution width (RBC) [Ratio] 15.3 % Normal 11.5-15.5 [facility] Comment on above: Performed By: #### C MP, ADIFF, MDW, MG, CBC, GFR, ANEU #### Dilshad [place] [address] [place] [address] Hematocrit (Bld) [Volume fraction] 45.6 % Normal 34.0-46.0 [facility] Comment on above: Performed By: #### C MP, ADIFF, MDW, MG, CBC, GFR, ANEU #### Dilshad [place] [address] [place] [address] Hgb 15.6 G/dL Normal 12.0-16.0 [facility] Comment on above: Performed By: #### C MP, ADIFF, MDW, MG, CBC, GFR, ANEU #### Dilshad [place] [address] [place] [address] MCH (RBC) [Entitic mass] 31.7 pg Normal 27.0-33.0 [facility] Comment on above: Performed By: #### C MP, ADIFF, MDW, MG, CBC, GFR, ANEU #### [facility]sh[facility] [place] [address] [place], [place] [address] MCHC 34.3 G/dL Normal 32.0-36.0 [facility] Comment on above: Performed By: #### C MP, ADIFF, MDW, MG, CBC, GFR, ANEU #### [facility]shad [address] [place], [place] [address] MCV (RBC) [Entitic vol] 92.6 fL Normal 80.0-99.0 [facility] Comment on above: Performed By: #### C MP, ADIFF, MDW, MG, CBC, GFR, ANEU #### [facility]sh[facility] [address] [place], [place] [address] Platelet 140 10 3/mcL Low 150-450 [facility] Comment on above: Performed By: #### C MP, ADIFF, MDW, MG, CBC, GFR, ANEU #### [facility]sh[facility] [address] [place], [place] [address] Platelet mean volume (Bld) [Entitic vol] 6.7 fL Normal 6.6-10.5 [facility] Comment on above: Performed By: #### C MP, ADIFF, MDW, MG, CBC, GFR, ANEU #### [facility]sh[facility] [address] [place], [place] [address] RBC 4.92 10 6/mcL Normal 4.10-5.30 [facility] Comment on above: Performed By: #### C MP, ADIFF, MDW, MG, CBC, GFR, ANEU #### [facility]sh[address] [place], [place] [address] WBC 8.8 10 3/mcL Normal 4.5-10.8 [facility] Comment on above: Performed By: #### C MP, ADIFF, MDW, MG, CBC, GFR, ANEU #### Dilsh[address] [place], [place] [address] CMPon 08-20-2024 Albumin Level 3.3 G/dL Low 3.5-5.0 [facility] Comment on above: Performed By: #### C MP, ADIFF, MDW, MG, CBC, GFR, ANEU ####Dilshad JohnsonAdnqrvcwf1890 [place], [place] [address] Albumin/Globulin [Mass ratio] 0.9 {ratio} Low 1.1-2.5 DILSHAD MASSILLON Comment on above: Performed By: #### C MP, ADIFF, MDW, MG, CBC, GFR, ANEU ####Dilshad JohnsonWdxqtidrh70[address] [place], [place] [address] ALP [Catalytic activity/Vol] 81 U/L Normal 40-135 DILSHAD MASSILLON Comment on above: Performed By: #### C MP, ADIFF, MDW, MG, CBC, GFR, ANEU ####Dilshad Ben[address] [place] [phone] ALT [Catalytic activity/Vol] 19 U/L Normal 14-59 DILSHAD MASSILLON Comment on above: Performed By: #### C MP, ADIFF, MDW, MG, CBC, GFR, ANEU ####Dilshad Ben[address] [place] [phone] AST [Catalytic activity/Vol] 16 U/L Normal 10-40 DILSHAD MASSILLON Comment on above: Performed By: #### C MP, ADIFF, MDW, MG, CBC, GFR, ANEU ####Dilshad Ben[address] [place] [phone] Bili Total 0.6 mg/dL Normal 0.2-1.0 DILSHAD MASSILLON Comment on above: Result Comment: Use of this assay is not recommended for patients undergoing treatment with eltrombopag due to the potential for falsely elevated results. Performed By: #### C MP, ADIFF, MDW, MG, CBC, GFR, ANEU ####Dilshad Ben[address] [place] [phone] BUN/Creatinine Ratio 12 ratio Normal 7-27 RHIANNON MAN MASSILLON Comment on above: Performed By: #### C MP, ADIFF, MDW, MG, CBC, GFR, ANEU ####Dilshadvazquez BeVhl[address]rrvq[address] [place] [phone] Calcium [Mass/Vol] 9.5 mg/dL Normal 8.4-10.2 AULTMA N MASSILLON Comment on above: Performed By: #### C MP, ADIFF, MDW, MG, CBC, GFR, ANEU ####Dilshad JohnsonEqoigfjvn2274 [place], [place] [address] Chloride [Moles/Vol] 103 mmol/L Normal 98-107 RHIANNON MAN MASSILLON Comment on above: Performed By: #### C MP, ADIFF, MDW, MG, CBC, GFR, ANEU ####Dilshad JohnsonBcjgsaqwh2821 [place], [place] [address] CO2 [Moles/Vol] 32 mmol/L High 22-29 DILSHAD MASSILLON Comment on above: Performed By: #### C MP, ADIFF, MDW, MG, CBC, GFR, ANEU ####Dilshad JohnsonKoliqntyv5004 [place], [place] [address] Creatinine [Mass/Vol] 0.99 mg/dL Normal 0.55-1.02 AUL TMAN MASSILLON Comment on above: Result Comment: Test ing performed on enStage Dimension EXL analyzer using a modified kinetic Marky technique. Performed By: #### C MP, ADIFF, MDW, MG, CBC, GFR, ANEU ####Dilshad JohnsonJhkvcscft6199 [place], [place] [address] Electrolyte Balance 8.0 mEq/L Normal 4.0-15.0 AULTM AN MASSILLON Comment on above: Performed By: #### C MP, ADIFF, MDW, MG, CBC, GFR, ANEU ####Dilshad JohnsonEabqztjhm[address] [place], [place] [address] Globulin 3.7 G/dL Normal DILSHAD MASSILLON Comment on above: Performed By: #### C MP, ADIFF, MDW, MG, CBC, GFR, ANEU ####Dilshad JohnsonLtzlunwhh0070 [place], [place] [address] Glucose [Mass/Vol] 118 mg/dL High 70-105 AULTMA N MASSILLON Comment on above: Performed By: #### C MP, ADIFF, MDW, MG, CBC, GFR, ANEU ####Dilshad Zessspcxy[address] [place], [place] [address] Potassium [Moles/Vol] 2.8 mmol/L Low 3.5-5.1 AUL TMAN MASSILLON Comment on above: Performed By: #### C MP, ILIR, MDW, MG, CBC, GFR, ANEU ####Dilshad [address] [place], [place] [address] Sodium [Moles/Vol] 143 mmol/L Normal 136-145 AULTMA N MASSILLON Comment on above: Performed By: #### C MP, ADIFF, MDW, MG, CBC, GFR, ANEU ####Dilshad Shtvcs[address] [place], [place] [address] Total Protein 7.0 G/dL Normal 6.4-8.2 [place] Comment on above: Performed By: #### C MP, ILIR, MDW, MG, CBC, GFR, ANEU ####[facility] [address] [place] [address] Urea nitrogen [Mass/Vol] 12 mg/dL Normal 7-18 [facility] Comment on above: Performed By: #### C MP, ILIR, MDW, MG, CBC, GFR, ANEU ####[facility], [address] [place], [place] [address] MGon 08-20-2024 Magnesium [Mass/Vol] 2.0 mg/dL Normal 1.8-2.4 [facility] Comment on above: Performed By: #### C MP, ILIR, MDW, MG, CBC, GFR, ANEU #### [facility] [address] [place], [place] [address] .Auto Diffon 08-18-2024 Basophil, Absolute 0.0 10 3/mcL Normal 0.0-0.3 [facility] Comment on above: Performed By: #### F ES, GFR, FT3, ADIFF, A1C, CMP, CBC, TSH, ANEU, FT4 #### [facility] [address] [place] [address] Basophils/100 WBC (Bld) 0.3 % Normal 0.0-2.5 [facility] Comment on above: Performed By: #### F ES, GFR, FT3, ADIFF, A1C, CMP, CBC, TSH, ANEU, FT4 #### [address] [address] Eosinophil, Absolute 0.1 10 3/mcL Normal 0.0-0.7 [facility] Comment on above: Performed By: #### F ES, GFR, FT3, ADIFF, A1C, CMP, CBC, TSH, ANEU, FT4 #### [address] [address] Eosinophils/100 WBC (Bld) 1.2 % Normal 0.0-6.0 [facility] Comment on above: Performed By: #### F ES, GFR, FT3, ADIFF, A1C, CMP, CBC, TSH, ANEU, FT4 #### [address] [address] Lymphocyte, Absolute 3.4 10 3/mcL Normal 0.9-4.3 [facility] Comment on above: Performed By: #### F ES, GFR, FT3, ADIFF, A1C, CMP, CBC, TSH, ANEU, FT4 #### [address] [address] Lymphocytes/100 WBC (Bld) 43.7 % High 20.0-40.0 [facility] Comment on above: Performed By: #### F ES, GFR, FT3, ADIFF, A1C, CMP, CBC, TSH, ANEU, FT4 #### [address] [address] Monocyte, Absolute 0.9 10 3/mcL Normal 0.1-1.4 [facility] Comment on above: Performed By: #### F ES, GFR, FT3, ADIFF, A1C, CMP, CBC, TSH, ANEU, FT4 #### [address] [address] Monocytes/100 WBC (Bld) 11.5 % Normal 2.0-13.0 [facility] Comment on above: Performed By: #### F ES, GFR, FT3, ADIFF, A1C, CMP, CBC, TSH, ANEU, FT4 #### [address] [address] Neutrophils/100 WBC (Bld) 43.3 % Low 50.0-75.0 [facility] Comment on above: Performed By: #### F ES, GFR, FT3, ADIFF, A1C, CMP, CBC, TSH, ANEU, FT4 #### [address] [address] .GFRon 08-18-2024 GFR >60 [facility] Comment on above: Result Comment: GFR Population mean for , Non- Americans Ages 20-29 = 116 mL/min/1.73 sq.m. Ages 30-39 = 107 mL/min/1.73 sq.m. Ages 40-49 = 99 mL/min/1.73 sq.m. Ages 50-59 = 93 mL/min/1.73 sq.m. Ages 60-69 = 85 mL/min/1.73 sq.m. Ages 70+ = 75 mL/min/1.73 sq.m. Chronic Kidney Disease: Less than 60 mL/min/1.73 square meters End Stage Renal Disease: Less than 15 mL/min/1.73 square meters Performed By: #### F ES, GFR, FT3, ADIFF, A1C, CMP, CBC, TSH, ANEU, FT4 #### [address] [address] GFR Non- >60 [facility] Comment on above: Result Comment: GFR Population mean for , Non- Americans Ages 20-29 = 116 mL/min/1.73 sq.m. Ages 30-39 = 107 mL/min/1.73 sq.m. Ages 40-49 = 99 mL/min/1.73 sq.m. Ages 50-59 = 93 mL/min/1.73 sq.m. Ages 60-69 = 85 mL/min/1.73 sq.m. Ages 70+ = 75 mL/min/1.73 sq.m. Chronic Kidney Disease: Less than 60 mL/min/1.73 square meters End Stage Renal Disease: Less than 15 mL/min/1.73 square meters Performed By: #### F ES, GFR, FT3, ADIFF, A1C, CMP, CBC, TSH, ANEU, FT4 #### [place] [address] .NEUABSon 08-18-2024 Neutrophil, Absolute 3.3 10 3/mcL Normal 2.3-8.1 [facility] Comment on above: Performed By: #### F ES, GFR, FT3, ADIFF, A1C, CMP, CBC, TSH, ANEU, FT4 #### [place] [address] A1Con 08-18-2024 Glucose [Mass/Vol] 82 mg/dL Normal [facility] Comment on above: Result Comment: Chrissy mated Average Glucose calculated by equation ((28.7xA1C)-46.7) Estimated average glucose (eAG) is a calculated value from Hemoglobin A1C and is patient access representative of the average blood glucose level in the last 2-3 month period. Normal range: less than 114 mg/dL Performed By: #### F ES, GFR, FT3, ADIFF, A1C, CMP, CBC, TSH, ANEU, FT4 #### [place] [address] HbA1c (Bld) [Mass fraction] 4.5 % Normal 4.0-6.0 [facility] Comment on above: Performed By: #### F ES, GFR, FT3, ADIFF, A1C, CMP, CBC, TSH, ANEU, FT4 #### [place] [address] CBCon 08-18-2024 Erythrocyte distribution width (RBC) [Ratio] 15.1 % Normal 11.5-15.5 [facility] Comment on above: Performed By: #### F ES, GFR, FT3, ADIFF, A1C, CMP, CBC, TSH, ANEU, FT4 #### [place] [address] Hematocrit (Bld) [Volume fraction] 44.2 % Normal 34.0-46.0 [facility] Comment on above: Performed By: #### F ES, GFR, FT3, ADIFF, A1C, CMP, CBC, TSH, ANEU, FT4 #### [place] [address] Hgb 15.4 G/dL Normal 12.0-16.0 [facility] Comment on above: Performed By: #### F ES, GFR, FT3, ADIFF, A1C, CMP, CBC, TSH, ANEU, FT4 #### [place] [address] MCH (RBC) [Entitic mass] 32.1 pg Normal 27.0-33.0 [facility] Comment on above: Performed By: #### F ES, GFR, FT3, ADIFF, A1C, CMP, CBC, TSH, ANEU, FT4 #### [place] [address] MCHC 34.9 G/dL Normal 32.0-36.0 [facility] Comment on above: Performed By: #### F ES, GFR, FT3, ADIFF, A1C, CMP, CBC, TSH, ANEU, FT4 #### [place] [address] MCV (RBC) [Entitic vol] 92.0 fL Normal 80.0-99.0 [facility] Comment on above: Performed By: #### F ES, GFR, FT3, ADIFF, A1C, CMP, CBC, TSH, ANEU, FT4 #### [place] [address] Platelet 134 10 3/mcL Low 150-450 [facility] Comment on above: Performed By: #### F ES, GFR, FT3, ADIFF, A1C, CMP, CBC, TSH, ANEU, FT4 #### [place] [address] Platelet mean volume (Bld) [Entitic vol] 7.1 fL Normal 6.6-10.5 [facility] Comment on above: Performed By: #### F ES, GFR, FT3, ADIFF, A1C, CMP, CBC, TSH, ANEU, FT4 #### [place] [address] RBC 4.80 10 6/mcL Normal 4.10-5.30 [facility] Comment on above: Performed By: #### F ES, GFR, FT3, ADIFF, A1C, CMP, CBC, TSH, ANEU, FT4 #### [address] [address] WBC 7.7 10 3/mcL Normal 4.5-10.8 [facility] Comment on above: Performed By: #### F ES, GFR, FT3, ADIFF, A1C, CMP, CBC, TSH, ANEU, FT4 #### [address] [address] CMPon 08-18-2024 Albumin Level 3.2 G/dL Normal 3.2-4.8 [facility] Comment on above: Performed By: #### F ES, GFR, FT3, ADIFF, A1C, CMP, CBC, TSH, ANEU, FT4 #### [place] [address] Albumin/Globulin [Mass ratio] 0.9 {ratio} Normal 0.9-1.6 [facility] Comment on above: Performed By: #### F ES, GFR, FT3, ADIFF, A1C, CMP, CBC, TSH, ANEU, FT4 #### [address] [address] ALP [Catalytic activity/Vol] 71 U/L Normal 38-126 [facility] Comment on above: Performed By: #### F ES, GFR, FT3, ADIFF, A1C, CMP, CBC, TSH, ANEU, FT4 #### [address] [address] ALT [Catalytic activity/Vol] 18 U/L Normal 10-49 [facility] Comment on above: Performed By: #### F ES, GFR, FT3, ADIFF, A1C, CMP, CBC, TSH, ANEU, FT4 #### [address] [address] AST [Catalytic activity/Vol] 24 U/L Normal 8-34 [facility] Comment on above: Performed By: #### F ES, GFR, FT3, ADIFF, A1C, CMP, CBC, TSH, ANEU, FT4 #### [address] [address] Bili Total 0.80 mg/dL Normal 0.20-1.20 [facility] Comment on above: Result Comment: Use of this assay is not recommended for patients undergoing treatment with eltrombopag due to the potential for falsely elevated results. Performed By: #### F ES, GFR, FT3, ADIFF, A1C, CMP, CBC, TSH, ANEU, FT4 #### [place] [id number] BUN/Creatinine Ratio 13.2 ratio Normal 10.0-22.0 [facility] Comment on above: Performed By: #### F ES, GFR, FT3, ADIFF, A1C, CMP, CBC, TSH, ANEU, FT4 #### [place] [id number] Calcium [Mass/Vol] 9.2 mg/dL Normal 8.7-10.4 [facility] Comment on above: Performed By: #### F ES, GFR, FT3, ADIFF, A1C, CMP, CBC, TSH, ANEU, FT4 #### [place] [id number] Chloride [Moles/Vol] 106 mmol/L Normal 98-110 [facility] Comment on above: Performed By: #### F ES, GFR, FT3, ADIFF, A1C, CMP, CBC, TSH, ANEU, FT4 #### [address] [address] CO2 [Moles/Vol] 32 mmol/L Normal 22-32 [facility] Comment on above: Performed By: #### F ES, GFR, FT3, ADIFF, A1C, CMP, CBC, TSH, ANEU, FT4 #### [place] [id number] Creatinine [Mass/Vol] 0.68 mg/dL Normal 0.50-1.20 [facility] Comment on above: Result Comment: Test ing performed on ZocDoc analyzer using enzymatic creatinine methodology. Performed By: #### F ES, GFR, FT3, ADIFF, A1C, CMP, CBC, TSH, ANEU, FT4 #### [place] [id number] Electrolyte Balance 8.0 mEq/L Normal 4.0-15.0 [facility] Comment on above: Performed By: #### F ES, GFR, FT3, ADIFF, A1C, CMP, CBC, TSH, ANEU, FT4 #### [address] [address] Globulin 3.5 G/dL Normal 1.5-3.8 [facility] Comment on above: Performed By: #### F ES, GFR, FT3, ADIFF, A1C, CMP, CBC, TSH, ANEU, FT4 #### [address] [address] Glucose [Mass/Vol] 75 mg/dL Normal 70-110 [facility] Comment on above: Performed By: #### F ES, GFR, FT3, ADIFF, A1C, CMP, CBC, TSH, ANEU, FT4 #### [address] [address] Potassium [Moles/Vol] 2.5 mmol/L Critically abnormal 3.5-5.0 [facility] Comment on above: Performed By: #### F ES, GFR, FT3, ADIFF, A1C, CMP, CBC, TSH, ANEU, FT4 #### [address] [address] Sodium [Moles/Vol] 146 mmol/L High 136-145 [facility] Comment on above: Performed By: #### F ES, GFR, FT3, ADIFF, A1C, CMP, CBC, TSH, ANEU, FT4 #### [address] [address] Total Protein 6.7 G/dL Normal 5.7-8.2 [facility] Comment on above: Performed By: #### F ES, GFR, FT3, ADIFF, A1C, CMP, CBC, TSH, ANEU, FT4 #### [address] [address] Urea nitrogen [Mass/Vol] 9.0 mg/dL Normal 8.0-22.0 [facility] Comment on above: Performed By: #### F ES, GFR, FT3, ADIFF, A1C, CMP, CBC, TSH, ANEU, FT4 #### [address] [address] FESon 08-18-2024 Iron [Mass/Vol] 121 ug/dL Normal 50-170 [facility] Comment on above: Performed By: #### F ES, GFR, FT3, ADIFF, A1C, CMP, CBC, TSH, ANEU, FT4 #### [place] [address] Iron Sat 37 % Normal [facility] Comment on above: Performed By: #### F ES, GFR, FT3, ADIFF, A1C, CMP, CBC, TSH, ANEU, FT4 #### [place] [address] TIBC 327 mcg/dL Normal 250-500 [facility] Comment on above: Performed By: #### F ES, GFR, FT3, ADIFF, A1C, CMP, CBC, TSH, ANEU, FT4 #### [place] [address] FT3on 08-18-2024 Free T3 [Mass/Vol] 3.10 pg/mL Normal 2.30-4.20 [facility] Comment on above: Performed By: #### F ES, GFR, FT3, ADIFF, A1C, CMP, CBC, TSH, ANEU, FT4 #### [place] [address] FT4on 08-18-2024 Free T4 [Mass/Vol] 1.43 ng/dL Normal 0.89-1.76 [facility] Comment on above: Result Comment: No te - New Reference Range in effect 20 Performed By: #### F ES, GFR, FT3, ADIFF, A1C, CMP, CBC, TSH, ANEU, FT4 #### [place] [address] LABORATORYOrdered By: SYSTEM SYSTEM on 08-18-2024 Albumin BCP dye [Mass/Vol] 3.2 G/dL Normal 3.2 - 4.8 G/dL ADM SS Albumin/Globulin [Mass ratio] 0.9 {ratio} Normal 0.9 - 1.6 ratio ADM SS ALP [Catalytic activity/Vol] 71 U/L Normal 38 - 126 U/L AH ADM SS ALT No additional P-5'-P [Catalytic activity/Vol] 18 U/L Normal 10 - 49 U/L AH ADM SS AST [Catalytic activity/Vol] 24 U/L Normal 8 - 34 U/L AH ADM SS Basophils (Bld) [#/Vol] 0.0 103/mcL Normal 0.0 - 0.3 10^3/mcL AH Workflow SS Basophils/100 WBC (Bld) 0.3 % Normal 0.0 - 2.5 % Workflow SS Bilirubin [Mass/Vol] 0.80 mg/dL Normal 0.20 - 1.20 mg/dL AH ADM SS Comment on above: Interpretive Data: U se of this assay is not recommended for patients undergoing treatment with eltrombopag due to the potential for falsely elevated results. Calcium [Mass/Vol] 9.2 mg/dL Normal 8.7 - 10. 4 mg/dL AH ADM SS Chloride [Moles/Vol] 106 mmol/L Normal 98 - 11 0 mEq/L AH ADM SS CO2 [Moles/Vol] 32 mmol/L Normal 22 - 32 mEq/L AH ADM SS Creatinine [Mass/Vol] 0.68 mg/dL Normal 0.50 - 1.20 mg/dL AH ADM SS Comment on above: Interpretive Data: T esting performed on ZocDoc analyzer using enzymatic creatinine methodology. Electrolyte Balance 8.0 mEq/L Normal 4.0 - 15 .0 mEq/L AH ADM SS Eosinophils (Bld) [#/Vol] 0.1 103/mcL Normal 0.0 - 0.7 10^3/mcL Workflow SS Eosinophils/100 WBC (Bld) 1.2 % Normal 0.0 - 6.0 % Workflow SS Erythrocyte distribution width (RBC) [Ratio] 15.1 % Normal 11.5 - 15.5 % Workflow SS Free T3 [Mass/Vol] 3.10 pg/mL Normal 2.30 - 4.20 pg/mL AH ADM SS Free T4 [Mass/Vol] 1.43 ng/dL Normal 0.89 - 1.76 ng/dL AH ADM SS Comment on above: Interpretive Data: * *Note - New Reference Range in effect 20 GFR/1.73 sq M.predicted among blacks MDRD (S/P/Bld) [Vol rate/Area] ml/min/1.73sqm Invalid Interpretation Code [employer] S Comment on above: Interpretive Data: GFR Population mean for , Non- Americans Ages 20-29 = 116 mL/min/1.73 sq.m. Ages 30-39 = 107 mL/min/1.73 sq.m. Ages 40-49 = 99 mL/min/1.73 sq.m. Ages 50-59 = 93 mL/min/1.73 sq.m. Ages 60-69 = 85 mL/min/1.73 sq.m. Ages 70+ = 75 mL/min/1.73 sq.m. Chronic Kidney Disease: Less than 60 mL/min/1.73 square meters End Stage Renal Disease: Less than 15 mL/min/1.73 square meters GFR/1.73 sq M.predicted among non-blacks MDRD (S/P/Bld) [Vol rate/Area] ml/min/1.73sqm Invalid Interpretation Code [employer] S Comment on above: Interpretive Data: GFR Population mean for , Non- Americans Ages 20-29 = 116 mL/min/1.73 sq.m. Ages 30-39 = 107 mL/min/1.73 sq.m. Ages 40-49 = 99 mL/min/1.73 sq.m. Ages 50-59 = 93 mL/min/1.73 sq.m. Ages 60-69 = 85 mL/min/1.73 sq.m. Ages 70+ = 75 mL/min/1.73 sq.m. Chronic Kidney Disease: Less than 60 mL/min/1.73 square meters End Stage Renal Disease: Less than 15 mL/min/1.73 square meters Globulin 3.5 G/dL Normal 1.5 - 3.8 G/dL ADM SS Glucose [Mass/Vol] 75 mg/dL Normal 70 - 110 mg/dL ADM SS Glucose [Mass/Vol] 82 mg/dL Invalid Interpretation Code [employer] SS Comment on above: Interpretive Data: E stimated average glucose (eAG) is a calculated value from Hemoglobin A1C and is patient access representative of the average blood glucose level in the last 2-3 month period. Normal range: less than 114 mg/dL HbA1c (Bld) [Mass fraction] 4.5 % Normal 4.0 - 6.0 % Auto Chem SS Hematocrit (Bld) [Volume fraction] 44.2 % Normal 34.0 - 46.0 % AH Workflow SS Hemoglobin (Bld) [Mass/Vol] 15.4 G/dL Normal 12.0 - 16.0 G/dL AH Workflow SS Iron [Mass/Vol] 121 ug/dL Normal 50 - 170 mcg/dL AH ADM SS Iron binding capacity [Mass/Vol] 327 mcg/dL Normal 250 - 500 mcg/dL AH ADM SS Iron saturation [Mass fraction] 37 % Invalid Interpretation Code AH ADM SS Lymphocytes (Bld) [#/Vol] 3.4 103/mcL Normal 0.9 - 4.3 10^3/mcL AH Workflow SS Lymphocytes/100 WBC (Bld) 43.7 % High 20.0 - 40.0 % AH Workflow SS MCH (RBC) [Entitic mass] 32.1 pg Normal 27.0 - 33.0 pg AH Workflow SS MCHC 34.9 G/dL Normal 32.0 - 36.0 G/dL AH Workflow SS MCV (RBC) [Entitic vol] 92.0 fL Normal 80.0 - 99.0 fL AH Workflow SS Monocytes (Bld) [#/Vol] 0.9 103/mcL Normal 0.1 - 1.4 10^3/mcL AH Workflow SS Monocytes/100 WBC (Bld) 11.5 % Normal 2.0 - 13.0 % AH Workflow SS Neutrophils (Bld) [#/Vol] 3.3 103/mcL Normal 2.3 - 8.1 10^3/mcL AH Workflow SS Neutrophils/100 WBC (Bld) 43.3 % Low 50.0 - 75.0 % AH Workflow SS Platelet mean volume (Bld) [Entitic vol] 7.1 fL Normal 6.6 - 10.5 fL AH Workflow SS Platelets (Bld) [#/Vol] 134 103/mcL Low 150 - 450 10^3/mcL AH Workflow SS Potassium [Moles/Vol] 2.5 mmol/L Invalid Interpretation Code 3.5 - 5.0 mEq/L AH ADM SS Protein [Mass/Vol] 6.7 G/dL Normal 5.7 - 8.2 G/dL AH ADM SS RBC (Bld) [#/Vol] 4.80 106/mcL Normal 4.10 - 5.30 10^6/mcL AH Workflow SS Sodium [Moles/Vol] 146 mmol/L High 136 - 145 mEq/L ADM SS TSH Qn 1.378 mIU/mL Normal 0.550 - 4.780 mIU/mL ADM SS Urea nitrogen [Mass/Vol] 9.0 mg/dL Normal 8.0 - 22.0 mg/dL ADM SS Urea nitrogen/Creatinine [Mass ratio] 13.2 ratio Normal 10.0 - 22.0 ratio AH ADM SS WBC (Bld) [#/Vol] 7.7 103/mcL Normal 4.5 - 10.8 10^3/mcL Workflow SS TSHon 08-18-2024 TSH 1.378 mIU/mL Normal 0.550-4.78 0 [facility] Comment on above: Performed By: #### F ES, GFR, FT3, ADIFF, A1C, CMP, CBC, TSH, ANEU, FT4 #### [facility] [address] [place] [address] TSHon 07-27-2024 TSH 0.971 mIU/mL Normal 0.550-4.78 0 DILSHAD [facility]LL[facility] Comment on above: Performed By: #### T SH ####[place] [address] .Auto Diffon 07-26-2024 Basophil, Absolute 0.0 10 3/mcL Normal 0.0-0.3 RHIANNON MAN MASSILLON Comment on above: Performed By: #### A DIFF, GFR, PRO, CMP, MG, CBC, TROPHS, APTT, MDW, ANEU ####[facility] [place], [place] [address] Basophils/100 WBC (Bld) 0.6 % Normal 0.0-2.5 DILSHAD MASSILLON Comment on above: Performed By: #### A DIFF, GFR, PRO, CMP, MG, CBC, TROPHS, APTT, MDW, ANEU ####[facility] [place], [place] [address] Eosinophil, Absolute 0.1 10 3/mcL Normal 0.0-0.7 AU LTMAN MASSILLON Comment on above: Performed By: #### A DIFF, GFR, PRO, CMP, MG, CBC, TROPHS, APTT, MDW, ANEU ####Dilshad [address] [place], [place] [address] Eosinophils/100 WBC (Bld) 1.0 % Normal 0.0-6.0 DILSHAD MASSILLON Comment on above: Performed By: #### A DIFF, GFR, PRO, CMP, MG, CBC, TROPHS, APTT, MDW, ANEU ####Dilshad [address] [place], [place] [address] Lymphocyte, Absolute 2.8 10 3/mcL Normal 0.9-4.3 AU LTMAN MASSILLON Comment on above: Performed By: #### A DIFF, GFR, PRO, CMP, MG, CBC, TROPHS, APTT, MDW, ANEU ####Dilshad [address] [place], [place] [address] Lymphocytes/100 WBC (Bld) 42.1 % High 20.0-40.0 DILSHAD MASSILLON Comment on above: Performed By: #### A DIFF, GFR, PRO, CMP, MG, CBC, TROPHS, APTT, MDW, ANEU ####Dilshad [address] [place], [place] [address] Monocyte, Absolute 0.7 10 3/mcL Normal 0.1-1.4 RHIANNON MAN MASSILLON Comment on above: Performed By: #### A DIFF, GFR, PRO, CMP, MG, CBC, TROPHS, APTT, MDW, ANEU ####[address]ilshad [id number] [place], [place] [address] Monocytes/100 WBC (Bld) 10.3 % Normal 2.0-13.0 DILSHAD MASSILLON Comment on above: Performed By: #### A DIFF, GFR, PRO, CMP, MG, CBC, TROPHS, APTT, MDW, ANEU ####Dilshad [id number] [place], [place] [address] Neutrophils/100 WBC (Bld) 46.0 % Low 50.0-75.0 DILSHAD MASSILLON Comment on above: Performed By: #### A DIFF, GFR, PRO, CMP, MG, CBC, TROPHS, APTT, MDW, ANEU ####[address]shad [id number] [place], [place] [address] .GFRon 07-26-2024 GFR 138 ml/min/1.73sqm Normal DILSHAD MASSILLON Comment on above: Result Comment: GFR Population mean for , Non- Americans Ages 20-29 = 116 mL/min/1.73 sq.m. Ages 30-39 = 107 mL/min/1.73 sq.m. Ages 40-49 = 99 mL/min/1.73 sq.m. Ages 50-59 = 93 mL/min/1.73 sq.m. Ages 60-69 = 85 mL/min/1.73 sq.m. Ages 70+ = 75 mL/min/1.73 sq.m. Chronic Kidney Disease: Less than 60 mL/min/1.73 square meters End Stage Renal Disease: Less than 15 mL/min/1.73 square meters Performed By: #### G FR, BMP ####[address]ilshad [id number] [place], [place] [address] GFR Non- 114 ml/min/1.73sqm Normal DILSHAD MASSILLON Comment on above: Result Comment: GFR Population mean for , Non- Americans Ages 20-29 = 116 mL/min/1.73 sq.m. Ages 30-39 = 107 mL/min/1.73 sq.m. Ages 40-49 = 99 mL/min/1.73 sq.m. Ages 50-59 = 93 mL/min/1.73 sq.m. Ages 60-69 = 85 mL/min/1.73 sq.m. Ages 70+ = 75 mL/min/1.73 sq.m. Chronic Kidney Disease: Less than 60 mL/min/1.73 square meters End Stage Renal Disease: Less than 15 mL/min/1.73 square meters Performed By: #### G FR, BMP ####Dilshad [id number] [place], [place] [address] GFR 91 ml/min/1.73sqm Normal DILSHAD MASSILLON Comment on above: Result Comment: GFR Population mean for , Non- Americans Ages 20-29 = 116 mL/min/1.73 sq.m. Ages 30-39 = 107 mL/min/1.73 sq.m. Ages 40-49 = 99 mL/min/1.73 sq.m. Ages 50-59 = 93 mL/min/1.73 sq.m. Ages 60-69 = 85 mL/min/1.73 sq.m. Ages 70+ = 75 mL/min/1.73 sq.m. Chronic Kidney Disease: Less than 60 mL/min/1.73 square meters End Stage Renal Disease: Less than 15 mL/min/1.73 square meters Performed By: #### C ILIR SNOWDEN, W, MG, CBC, GFR, ANEU #### [address]sh[address] [place], [place] [address] GFR Non- 75 ml/min/1.73sqm Normal DILSHAD GUAN Comment on above: Result Comment: GFR Population mean for , Non- Americans Ages 20-29 = 116 mL/min/1.73 sq.m. Ages 30-39 = 107 mL/min/1.73 sq.m. Ages 40-49 = 99 mL/min/1.73 sq.m. Ages 50-59 = 93 mL/min/1.73 sq.m. Ages 60-69 = 85 mL/min/1.73 sq.m. Ages 70+ = 75 mL/min/1.73 sq.m. Chronic Kidney Disease: Less than 60 mL/min/1.73 square meters End Stage Renal Disease: Less than 15 mL/min/1.73 square meters Performed By: #### C ILIR SNOWDEN, W, MG, CBC, GFR, ANEU #### [address]sh[address] [place], [place] [address] .MDWon 07-26-2024 Monocyte Distribution Width 15.91 Normal 0.00-20.00 DILSHAD GUAN Comment on above: Result Comment: For ED adult patients suspected of sepsis, MDW<=20.0 does not rule out sepsis or risk of sepsis Performed By: #### A DIFF, GFR, PRO, CMP, MG, CBC, TROPHS, APTT, MDW, ANEU ####Dilshad JohnsonP[address]usuldk[address] [place] [id number] .NEUABSon 07-26-2024 Neutrophil, Absolute 3.1 10 3/mcL Normal 2.3-8.1 AU LTMAN MASSILLON Comment on above: Performed By: #### A DIFF, GFR, PRO, CMP, MG, CBC, TROPHS, APTT, MDW, ANEU ####Dilshad Chvcljqml[address] [place], [place] [address] APTTon 07-26-2024 aPTT Coag (Bld) [Time] 32.0 s Normal 25.0-35.0 DILSHAD MASSILLON Comment on above: Performed By: #### C MP, ADIFF, MDW, MG, CBC, GFR, ANEU #### Dilshad [place] [address] [place] [id number] BMPon 07-26-2024 BUN/Creatinine Ratio 19 ratio Normal 7-27 RHIANNON MAN MASSILLON Comment on above: Performed By: #### G , BMP ####Dilshad Nvjhsdqph9551 [place], [place] [address] Calcium [Mass/Vol] 8.1 mg/dL Low 8.4-10.2 AULTMA N MASSILLON Comment on above: Performed By: #### G , BMP ####Dilshad Wlowjhama35[address] [place] [phone] Chloride [Moles/Vol] 107 mmol/L Normal 98-107 RHIANNON MAN MASSILLON Comment on above: Performed By: #### G , BMP ####Dislhad Vyjsyyfik[address] [place], [place] [address] CO2 [Moles/Vol] 32 mmol/L High 22-29 DILSHAD MASSILLON Comment on above: Performed By: #### G FR, BMP ####Dilshad Haowdniay4[address] [place], [place] [address] Creatinine [Mass/Vol] 0.57 mg/dL Normal 0.55-1.02 AUL TMAN MASSILLON Comment on above: Result Comment: Test ing performed on Siemens Dimension EXL analyzer using a modified kinetic Marky technique. Performed By: #### G FR, BMP ####Dilshad Nzwlmflib3595 [place], [place] [address] Electrolyte Balance 9.0 mEq/L Normal 4.0-15.0 AULTM AN MASSILLON Comment on above: Performed By: #### Nani TREVINO, BMP ####Dilshad Ben[address] [place], [place] [address] Glucose [Mass/Vol] 98 mg/dL Normal 70-105 AULTMA N MASSILLON Comment on above: Performed By: #### G , BMP ####Dilshad Ben[address] [place], [place] [address] Potassium [Moles/Vol] 3.0 mmol/L Low 3.5-5.1 AUL TMAN MASSILLO Comment on above: Performed By: #### Nani TREVINO, BMP ####Dilshad Ben[address] [place] [phone] Sodium [Moles/Vol] 148 mmol/L High 136-145 AULTMA N MASSILLON Comment on above: Performed By: #### Nani TREVINO, BMP ####Dilshad Ben[address] [place], [place] [address] Urea nitrogen [Mass/Vol] 11 mg/dL Normal 7-18 DILSHAD MASSILLON Comment on above: Performed By: #### Nani TREVINO, BMP ####Dilshad Ben[address] [place], [place] [address] CBCon 07-26-2024 Erythrocyte distribution width (RBC) [Ratio] 14.3 % Normal 11.5-15.5 DILSHAD MASSILLON Comment on above: Performed By: #### A DIFF, GFR, PRO, CMP, MG, CBC, TROPHS, APTT, MDW, ANEU ####Dilshad Ben[address] [place], [place] [address] Hematocrit (Bld) [Volume fraction] 41.3 % Normal 34.0-46.0 DILSHAD MASSILLON Comment on above: Performed By: #### A DIFF, GFR, PRO, CMP, MG, CBC, TROPHS, APTT, MDW, ANEU ####Dilshad JohnsonWrgfsxhie5965 [place], [place] [address] Hgb 14.0 G/dL Normal 12.0-16.0 DILSHAD MASSILLON Comment on above: Performed By: #### A DIFF, GFR, PRO, CMP, MG, CBC, TROPHS, APTT, MDW, ANEU ####Dilshad JohnsonDfcshrfxp4204 [place] [address] MCH (RBC) [Entitic mass] 31.4 pg Normal 27.0-33.0 DILSHAD MASSILLON Comment on above: Performed By: #### A DIFF, GFR, PRO, CMP, MG, CBC, TROPHS, APTT, MDW, ANEU ####Dilshad Fso[address]up[address]zf[address] [place] [address] MCHC 33.9 G/dL Normal 32.0-36.0 DILSHAD MASSILLON Comment on above: Performed By: #### A DIFF, GFR, PRO, CMP, MG, CBC, TROPHS, APTT, MDW, ANEU ####Dilshad Ben[address] [place] [address] MCV (RBC) [Entitic vol] 92.6 fL Normal 80.0-99.0 DILSHAD MASSILLON Comment on above: Performed By: #### A DIFF, GFR, PRO, CMP, MG, CBC, TROPHS, APTT, MDW, ANEU ####Dilshad JohnsonKltucyfob[address] [place] [address] Platelet 132 10 3/mcL Low 150-450 DILSHAD MASSILLON Comment on above: Performed By: #### A DIFF, GFR, PRO, CMP, MG, CBC, TROPHS, APTT, MDW, ANEU ####Dilshad [address]ps[address]rx[address] [place] [phone] Platelet mean volume (Bld) [Entitic vol] 7.2 fL Normal 6.6-10.5 DILSHAD MASSILLON Comment on above: Performed By: #### A DIFF, GFR, PRO, CMP, MG, CBC, TROPHS, APTT, MDW, ANEU ####Dilshad Dfydotgsw[address] [place] [address] RBC 4.46 10 6/mcL Normal 4.10-5.30 DILSHAD MASSILLON Comment on above: Performed By: #### A DIFF, GFR, PRO, CMP, MG, CBC, TROPHS, APTT, MDW, ANEU ####Dilshad Elkfksvmb[address] [place], [place] [address] WBC 6.7 10 3/mcL Normal 4.5-10.8 DILSHAD MASSILLON Comment on above: Performed By: #### A DIFF, GFR, PRO, CMP, MG, CBC, TROPHS, APTT, MDW, ANEU ####Dilshad Ejctvnuuj[address] [place], [place] [address] CMPon 07-26-2024 Albumin Level 2.8 G/dL Low 3.5-5.0 DILSHAD MASSILLON Comment on above: Performed By: #### C MP, ADIFF, MDW, MG, CBC, GFR, ANEU #### Dilshad [address] [place], [place] [address] Albumin/Globulin [Mass ratio] 0.9 {ratio} Low 1.1-2.5 [place] [facility] Comment on above: Performed By: #### C MP, ADIFF, MDW, MG, CBC, GFR, ANEU #### Dilshadvazquez JohnsonAutaugav[address] [place], [place] [address] ALP [Catalytic activity/Vol] 62 U/L Normal 40-135 D[facility]SHAD [facility] Comment on above: Performed By: #### C MP, ADIFF, MDW, MG, CBC, GFR, ANEU #### Dilshad [address] [place], [place] [address] ALT [Catalytic activity/Vol] 19 U/L Normal 14-59 DILSHAD MASSILLO Comment on above: Performed By: #### C MP, ADIFF, MDW, MG, CBC, GFR, ANEU #### Dilshadvazquez JohnsonAutaugav[address] [place], [place] [address] AST [Catalytic activity/Vol] 12 U/L Normal 10-40 DILSHAD MASSILLO Comment on above: Performed By: #### C MP, ADIFF, MDW, MG, CBC, GFR, ANEU #### Dilshad [place] [address] [place], [place] [address] Bili Total 0.5 mg/dL Normal 0.2-1.0 DILSHAD MASSILLON Comment on above: Result Comment: Use of this assay is not recommended for patients undergoing treatment with eltrombopag due to the potential for falsely elevated results. Performed By: #### C MP, ADIFF, MDW, MG, CBC, GFR, ANEU #### Dilshad [place] [address] [place], [place] [address] BUN/Creatinine Ratio 13 ratio Normal 7-27 RHIANNON MAN MASSILLON Comment on above: Performed By: #### C MP, ADIFF, MDW, MG, CBC, GFR, ANEU #### [facility] [address] [place], [place] [address] Calcium [Mass/Vol] 8.5 mg/dL Normal 8.4-10.2 AULTMA N MASSILLON Comment on above: Performed By: #### C MP, ADIFF, MDW, MG, CBC, GFR, ANEU #### [facility] [address] [place], [place] [address] Chloride [Moles/Vol] 107 mmol/L Normal 98-107 RHIANNON MAN MASSILLON Comment on above: Performed By: #### C MP, ADIFF, MDW, MG, CBC, GFR, ANEU #### Dilshad [place] [address] [place], [place] [address] CO2 [Moles/Vol] 32 mmol/L High 22-29 DILSHAD MASSILLO Comment on above: Performed By: #### C MP, ADIFF, MDW, MG, CBC, GFR, ANEU #### [facility] [address] [place], [place] [address] Creatinine [Mass/Vol] 0.82 mg/dL Normal 0.55-1.02 AUL TMAN MASSILLO Comment on above: Result Comment: Test ing performed on Siemens Dimension EXL analyzer using a modified kinetic Marky technique. Performed By: #### C MP, ADIFF, MDW, MG, CBC, GFR, ANEU #### Dilshad [address] [place], [place] [address] Electrolyte Balance 10.0 mEq/L Normal 4.0-15.0 AULTM AN MASSILLON Comment on above: Performed By: #### C ILIR SNOWDEN MDW, MG, CBC, GFR, ANEU #### Dilshad [place] [address] [place], [place] [address] Globulin 3.0 G/dL Normal DILSHAD MASSILLON Comment on above: Performed By: #### C ISI, ILIR, W, MG, CBC, GFR, ANEU #### Dilshadvazquez JohnsonAutaugav[address] [place], [place] [address] Glucose [Mass/Vol] 123 mg/dL High 70-105 AULTMA N MASSILLON Comment on above: Performed By: #### C ISI, ILIR, MDW, MG, CBC, GFR, ANEU #### Dilshadvazquez JohnsonAutaug[address] [place], [place] [address] Potassium [Moles/Vol] 2.6 mmol/L Critically abnormal 3.5-5.1 DILSHAD MASSILLON Comment on above: Performed By: #### C ILIR SNOWDEN MDW, MG, CBC, GFR, ANEU #### Dilshad [address] [place], [place] [address] Sodium [Moles/Vol] 149 mmol/L High 136-145 AULTMA N MASSILLON Comment on above: Performed By: #### C ILIR SNOWDEN MDW, MG, CBC, GFR, ANEU #### Dilshad [address] [place], [place] [address] Total Protein 5.8 G/dL Low 6.4-8.2 DILSHAD MASSILLON Comment on above: Performed By: #### C ILIR SNOWDEN MDW, MG, CBC, GFR, ANEU #### Dilshad [place] [address] [place], [place] [address] Urea nitrogen [Mass/Vol] 11 mg/dL Normal 7-18 DILSHAD MASSILLON Comment on above: Performed By: #### C ILIR SNOWDEN MDW, MG, CBC, GFR, ANEU #### Dilshadvazquez JohnsonAutaug[address] [place], [place] [address] MGon 07-26-2024 Magnesium [Mass/Vol] 2.0 mg/dL Normal 1.8-2.4 RHIANNON MAN MASSILLON Comment on above: Performed By: #### C ILIR SNOWDEN MDW, MG, CBC, GFR, ANEU #### Dilshad [address] [place], [place] [address] PROon 07-26-2024 PT Coag (PPP) [Time] 12.7 s Normal 9.0-14.4 [facility] Comment on above: Performed By: #### C ISI, EDD HAZEL, MG, CBC, GFR, ANEU #### Dilshad Ben [address] [place], [place] [address] PT International Ratio 1.1 Normal [facility] Comment on above: Result Comment: The [employer] (CHEST, 1992, 102:312S-25S) recommended therapeutic range for oral anticoagulant therapy is: LOW RISK: Prophylaxis of venous thrombosis INR: 2.0-3.0 Treatment of pulmonary embolism 2.0-3.0 Prevention of systemic embolism 2.0-3.0 HIGH RISK: Mechanical prosthetic valves 2.5-3.5 Performed By: #### C ILIR SNOWDEN MDW, MG, CBC, GFR, ANEU #### Dilshad [address] [place], [place] [address] TROPHSon 07-26-2024 High Sensitivity Troponin I 6 ng/L Normal 0-51 [facility] Comment on above: Result Comment: High Sensitive Troponin I Reference Ranges: Female: 0-51 ng/L Male: 0-76 ng/L Testing performed on Dimension EXL using a homogeneous sandwich chemiluminescent immunoassay based on NeuroSave technology. Performed By: #### T FARA ####Dilshad JohnsonSxrssygvu28[address] [place], [place] [address] High Sensitivity Troponin I 6 ng/L Normal 0-51 [facility] Comment on above: Result Comment: High Sensitive Troponin I Reference Ranges: Female: 0-51 ng/L Male: 0-76 ng/L Testing performed on Dimension EXL using a homogeneous sandwich chemiluminescent immunoassay based on NeuroSave technology. Performed By: #### C ISI, ILIR, EDD, MG, CBC, GFR, ANEU #### Dilshad [address] [place], [place] [address] UAon 07-26-2024 Color (U) Yellow Normal DILSHAD MASSILLON Comment on above: Performed By: #### U AMIC, UA ####Dilshad I[address] [place] [address] Glucose (U) [Mass/Vol] Negative Normal Negative DILSHAD MASSILLON Comment on above: Performed By: #### U AMIC, UA ####Dilshad X[address]qlwqp[address] [place] [address] Ketones Ql (U) Trace Normal Neg-Trace DILSHAD MASSILLON Comment on above: Performed By: #### U AMIC, UA ####Dilshad [address]voq[address] [place] [address] UA Appear Cloudy Abnormal DILSHAD MASSILLON Comment on above: Performed By: #### U AMIC, UA ####Dilshad Wsivwfzgo[address] [place] [address] UA Blood Trace Normal Neg-Trace DILSHAD MASSILLON Comment on above: Performed By: #### U AMIC, UA ####Dlishad Qdiqfessw64[address] [place] [address] UA Leuk Est Negative Normal Negative DILSHAD MASSILLON Comment on above: Performed By: #### U AMIC, UA ####Dilshad [address]gjlswvby[address] [place] [address] UA Nitrite Negative Normal Negative DILSHAD MASSILLON Comment on above: Performed By: #### U AMIC, UA ####Dilshad Qyntchxhe4[address] [place] [address] UA pH 7.0 Normal 5.0 - 8.0 DILSHAD MASSILLON Comment on above: Performed By: #### U AMIC, UA ####Dilshad [address]pfc[address] [place] [address] UA Protein Trace Normal Negative DILSHAD MASSILLON Comment on above: Performed By: #### U AMIC, UA ####Dilshad Civ[address]ae[address] [place] [address] UA Spec Grav 1.020 Normal DILSHAD MASSILLON Comment on above: Performed By: #### U AMIC, UA ####Dilshad B[address]fbsgsh[address] [place] [address] UA Specimen Type Void Normal DILSHAD MASSILLON Comment on above: Performed By: #### U AMIC, UA ####Dilshad Uwljxdokx6[address] [place] [address] UA Urobilinogen 4.0 E.U./dL Abnormal DILSHAD MASSILLON Comment on above: Performed By: #### U AMIC, UA ####Dilshad Hviuvekvs[address] [place] [address] Urobilinogen (U) [Mass/Vol] Negative Normal Neg-Trace DILSHAD MASSILLON Comment on above: Performed By: #### U AMIC, UA ####Dilsahd [address]ub[address] [place] [address] UAMICon 07-26-2024 UA Amorphus 2+ /hpf Normal DILSHAD MASSILLON Comment on above: Performed By: #### U AMIC, UA ####Dilshad Gurwzojdx[address] [place] [address] UA Bacteria Trace Abnormal Negative DILSHAD MASSILLON Comment on above: Performed By: #### U AMIC, UA ####Dilshad Hvdrmdvnb2676 [place] [address] UA Mucous Trace Normal DILSHAD MASSILLON Comment on above: Performed By: #### U AMIC, UA ####Dilshad Eerahgadv8087 [place] [address] UA RBC 5-10 Abnormal 0-2 DLISHAD MASSILLON Comment on above: Performed By: #### U AMIC, UA ####Dilshad Rzbsdhrtx0637 [place] [address] UA Squam Epithelial 0-2 Normal 0-20 AULTM AN MASSILLON Comment on above: Performed By: #### U AMIC, UA ####Dilshad Rzivbzqdx8327 [place] [address] UA WBC 3-5 Normal 0-5 DILSHAD MASSILLON Comment on above: Performed By: #### U AMIC, UA ####Dilshad Ben[address] [place], [place] [address] XR CHEST 2 VIEWSon 5 XR CHEST 2 VIEWS ORIGINAL EXAMINATION: TWO XRAY VIEWS OF THE CHEST07/26/2024 3:15 pm COMPARISON: Two-view chest radiograph 01/06/2023, CT chest 01/05/2023 HISTORY: ORDERING SYSTEM PROVIDED HISTORY: Reason for Exam: pain, weakness FINDINGS: Cardiomediastinal contours are within normal limits. No focal consolidation or pulmonary edema. No pleural effusion or visible pneumothorax. Mild degenerative changes of the visualized spine. IMPRESSION: No acute radiographic findings. I have personally reviewed the images of this examination and agree with the resident's findings and interpretation. Interpreted by: Nohemi Benton DO Preliminary Report By: Kymberly Reynoso Electronically signed By Nohemi Benton DO Dictated Date: 07/26/2024 3:17:50 PM Prelim Date: 07/26/2024 4:02:18 PM Sign Date: 07/26/2024 4:02:18 PM Ordering Provider: [place] DILSHAD GUAN 36on 06-04-2024 36 Referral closed [facility] 36 Name of Caller: Nate bender Contact Reason for Appointment: Barbara called because they received a letter stating there was a missed appointment. She said they called prior and after. Sharla has her own ENT. Please make note she has another provider for ENT and will not be making another appointment. Please advise. Office Name: [facility] 36on 05-07-2024 36 Name of caller: Nate bender Contact phone number: [phone] Relationship to Patient: Caregiver - Alpha Personal Care Provider: Lisette Jesus PA-C Practice: [facility] Chief Complaint/Reason for Call: Annie called in regarding Sharla's 05/01/24 3:00 PM missed new patient appointment, and states that Sharla had an appointment with Dr. Peggy Howard at [facility] on 04/11 and did not wish to reschedule with [facility] MICHELLE Gonsalves at this time. Please be advised. Best time of day caller can be reached: Any Patient advised that office/PCP has 24-48 business hours to return their call: Yes Normal [facility] Bacteria Ur Culton 4 Bacteria identified Cx Nom (U) CULTURE, URINE: <10,000 CFU/ml Normal Urogenital Hailey Normal [facility] Comment on above: Performed By: #### 6 30-4 ####[facility] LABORATORYCLIA [id number] [place] [address] [place] CNOVon 04-09-2024 CNOV Normal [facility] HCG ( test) Ql (U)o n 04-09-2024 Interpretation and review of laboratory results Normal [facility] HCG Preg Ur Qlon 04-09-2024 HCG ( test) Ql (U) Negative Normal Negative [facility] Comment on above: Order Comment: Speci men Type: URINE SPECIMENOrdering Facility: [facility] Address: [address] [place] [address] Result Comment: This test is intended to aid in the early detection of . Very dilute urine samples, as indicated by a low specific gravity, may not contain patient access representative levels of hCG. This test detects intact hCG only. This test does not reliably detect hCG degradation products, including free-beta subunit and beta-core fragment. Therefore, this test may show reduced reactivity in urine after 8 weeks gestation. A number of conditions other than , including trophoblastic disease and certain non-trophoblastic neoplasms cause elevated levels of hCG. As with any assay employing mouse antibodies, the possibility exists for interference by human anti-mouse antibodies (HAMA) in the specimen. The test provides a presumptive diagnosis for . Performed By: #### U A, 2106-3 ####[facility] LABCLIA [id number] [place] [address] [place] HCG, QUALITATIVE, URINE PREG NANCYon 04-09-2024 HCG ( test) Ql (U) Negative Negative [facility] Comment on above: This test is intende d to aid in the early detection of . Very dilute urine samples, as indicated by a low specific gravity, may not contain patient access representative levels of hCG. This test detects intact hCG only. This test does not reliably detect hCG degradation products, including free-beta subunit and beta-core fragment. Therefore, this test may show reduced reactivity in urine after 8 weeks gestation. A number of conditions other than , including trophoblastic disease and certain non-trophoblastic neoplasms cause elevated levels of hCG. As with any assay employing mouse antibodies, the possibility exists for interference by human anti-mouse antibodies (HAMA) in the specimen. The test provides a presumptive diagnosis for . URINALYSIS, DIPSTICK ONLYOrd ered By: Jesica Leigh on 04-09-2024 Bilirubin Ql (U) Negative Negative [facility] Clarity (Unsp spec) Clear Clear [facility] Color (U) Straw Yellow [facility] Glucose Test strip (U) [Mass/Vol] Negative Negative [facility] Hemoglobin Ql (U) Negative Negative [facility] Interpretation and review of laboratory results Normal [facility] Ketones Ql (U) Negative Negative [facility] Leukocyte esterase Test strip Ql (U) Negative Negative [facility] Nitrite Ql (U) Negative Negative [facility] pH (U) 6.0 [pH] 5.0 - 8.0 [facility] Protein (U) [Mass/Vol] Negative Negative [facility] Specific gravity (U) [Rel density] 1.005 1.005 - 1.030 [facility] Urobilinogen Ql (U) Negative Negative [facility] URINALYSIS, DIPSTICK ONLYon 04-09-2024 Bilirubin Ql (U) Negative Normal Negative [facility] Comment on above: Order Comment: Speci men Type: URINE SPECIMENOrdering Facility: [facility] Address: [address] [place] [address] Performed By: #### U 2105-09 ####[facility] LABIA [id number] [address] Clarity (Unsp spec) Clear Normal Clear [facility] Comment on above: Order Comment: Speci men Type: URINE SPECIMENOrdering Facility: [facility] Address: [address] [place] [address] Performed By: #### U 2105-09 ####[facility] LABCLIA [id number] [address] [place] Color (U) Straw Normal Yellow [facility] Comment on above: Order Comment: Speci men Type: URINE SPECIMENOrdering Facility: [facility] Address: [address] [place] [place] [address] Performed By: #### U A, 2105-09 ####[facility] LABCLIA [id number] [address] Glucose Test strip (U) [Mass/Vol] Negative Normal Negative [facility] Comment on above: Order Comment: Speci men Type: URINE SPECIMENOrdering Facility: [facility] Address: [address] [place] [address] Performed By: #### U A, 2105-09 ####[facility] LABCLIA [id number] [address] Hemoglobin Ql (U) Negative Normal Negative [facility] Comment on above: Order Comment: Speci men Type: URINE SPECIMENOrdering Facility: [facility] Address: [address] [place] [address] Performed By: #### U A, 2105-09 ####[facility] LABCLIA [id number] [address] Ketones Ql (U) Negative Normal Negative [facility] Comment on above: Order Comment: Speci men Type: URINE SPECIMENOrdering Facility: [facility] Address: [address] [place] [address] Performed By: #### U A, 2105-09 ####[facility] LABCLIA [id number] [address] Leukocyte esterase Test strip Ql (U) Negative Normal Negative [facility] Comment on above: Order Comment: Speci men Type: URINE SPECIMENOrdering Facility: [facility] Address: [address] [place] [address] Performed By: #### U A, 2105-09 ####[facility] LABCLIA [id number] [address] [place] Nitrite Ql (U) Negative Normal Negative [facility] Comment on above: Order Comment: Speci men Type: URINE SPECIMENOrdering Facility: [facility] Address: [address] [place] [address] Performed By: #### U A, 2105-09 ####[facility] LABCLIA [id number] [address] [place] pH (U) 6.0 [pH] Normal 5.0-8.0 [facility] Comment on above: Order Comment: Speci men Type: URINE SPECIMENOrdering Facility: [facility] Address: [address] [place] [address] Performed By: #### U A, 2105-09 ####[facility] LABCLIA [id number] [address] Protein (U) [Mass/Vol] Negative Normal Negative [facility] Comment on above: Order Comment: Speci men Type: URINE SPECIMENOrdering Facility: [facility] Address: [address] [place] [address] Performed By: #### U A, 2105-09 ####JANNY BAJWA [facility] LABCLIA [id number] [address] Specific gravity (U) [Rel density] 1.005 Normal 1.005-1.03 0 [facility] Comment on above: Order Comment: Speci men Type: URINE SPECIMENOrdering Facility: [facility] Address: [address] [place] [address] Performed By: #### U A, 2105-09 ####[facility] BAJWA [place] LABCLIA [id number] [address] Urobilinogen Ql (U) Negative Normal Negative [facility] Comment on above: Order Comment: Speci men Type: URINE SPECIMENOrdering Facility: [facility] Address: [address] [place] [address] Performed By: #### U A, 2105-09 ####[facility] LABCLIA [id number] [place] [address] [place] CBC (HEMOGRAM)on 03-26-2024 Erythrocyte distribution width (RBC) [Ratio] 13.9 % Normal 11.5-15.0 [facility] Comment on above: Performed By: #### L AB294 ####Furnace Mechanic: LOCO CRUZ ([id number])[facility] [employer] ([facility])[address] [place] [address] Hematocrit (Bld) [Volume fraction] 44.8 % Normal 35.0-47.0 [facility] Comment on above: Performed By: #### L AB294 ####Furnace Mechanic: LOCO CRUZ ([id number])[facility] [employer] ([facility])[address] Hemoglobin (Bld) [Mass/Vol] 15.3 g/dL Normal 11.7-16.0 [facility] Comment on above: Performed By: #### L AB294 ####Furnace Mechanic: LOCO CRUZ ([id number])[facility] [employer] ([facility])[address] MCH (RBC) [Entitic mass] 31.9 pg Normal 26.0-34.0 [facility] Comment on above: Performed By: #### L AB294 ####Furnace Mechanic: LOCO CRUZ ([id number])[facility] [employer] ([facility])[address] MCHC 34.2 % Normal 30.5-36.0 [facility] Comment on above: Performed By: #### L AB294 ####Furnace Mechanic: LOCO CRUZ ([id number])[facility] [employer] ([facility])[address] [place] [address] [facility] MCV (RBC) [Entitic vol] 93.3 fL Normal 77.0-99.0 [facility] Comment on above: Performed By: #### L AB294 ####Furnace Mechanic: LOCO CRUZ ([id number])[facility] SYSTEMBlackBamboozStudioS ([facility])[address] Platelet mean volume (Bld) [Entitic vol] 9.2 fL Normal 9.0-12.7 [facility] Comment on above: Result Comment: MPV is a calculated measurement using platelet volume ratio Performed By: #### L [id number] ####Furnace Mechanic: LOCO CRUZ ([id number])[facility] HOSPITALneoSurgicalS ([facility])[address] Platelets (Bld) [#/Vol] 166 10*3/uL Normal 140-440 [facility] Comment on above: Performed By: #### L AB294 ####Furnace Mechanic: LOCO CRUZ ([id number])[facility] SYSTEMBlackBamboozStudioS ([facility])[address] RBC (Bld) [#/Vol] 4.80 10*6/uL Normal 3.80-5.20 [facility] Comment on above: Performed By: #### L AB294 ####Furnace Mechanic: LOCO CRUZ ([id number])[facility]OS[facility]ITALneoSurgical ([facility])[address] WBC (Bld) [#/Vol] 7.7 10*3/uL Normal 3.6-10.7 [facility] Comment on above: Performed By: #### L AB294 ####Furnace Mechanic: LOCO CRUZ ([id number])[facility] SYSTEMBlackBamboozStudio ([facility])[address] CBC panel Auto (Bld)on 03-26 Erythrocyte distribution width (RBC) [Ratio] 13.9 % 11.5 - 15.0 % [facility] Hematocrit (Bld) [Volume fraction] 44.8 % 35.0 - 47.0 % [facility] Hemoglobin (Bld) [Mass/Vol] 15.3 g/dL 11.7 - 16.0 g/dL [facility] Interpretation and review of laboratory results Normal [facility] MCH (RBC) [Entitic mass] 31.9 pg 26.0 - 34.0 pg [facility] MCHC (RBC) [Mass/Vol] 34.2 % 30.5 - 36.0 % [facility] MCV (RBC) [Entitic vol] 93.3 fL 77.0 - 99.0 fL [facility] Platelet mean volume (Bld) [Entitic vol] 9.2 fL 9.0 - 12.7 fL [facility] Comment on above: MPV is a calculated measurement using platelet volume ratio Platelets (Bld) [#/Vol] 166 10*3/uL 140 - 440 10*3/uL [facility] RBC (Bld) [#/Vol] 4.80 10*6/uL 3.80 - 5.20 10*6/uL [facility] WBC (Bld) [#/Vol] 7.7 10*3/uL 3.6 - 10.7 10*3/uL [facility] COMPLETE URINALYSISon 2023 BACTERIA (#/HPF) IN URINE Negative Normal Negative [facility] Comment on above: Performed By: #### L [id number] ####Furnace Mechanic: LOCO CRUZ ([id number])[facility] ([facility])[address] BILIRUBIN, TOTAL PRESENCE IN URINE Negative Normal Negative [facility] Comment on above: Performed By: #### L [id number] ####Furnace Mechanic: LOCO CRUZ ([id number])[facility] [address] ([facility])[address] Clarity (U) Clear Normal Clear [facility] Comment on above: Performed By: #### L [id number] ####Furnace Mechanic: LOCO CRUZ ([id number])[facility] ([facility])[address] Color (U) Dark Yellow Abnormal Lt. Yellow [facility] Comment on above: Performed By: #### L [id number] ####Furnace Mechanic: LOCO CRUZ ([id number])[facility] ([facility])[address] [place] [id number] [place] GLUCOSE (MG/DL) IN URINE Normal Normal Normal (<70) [facility] Comment on above: Performed By: #### L [id number] ####Furnace Mechanic: LOCO CRUZ ([id number])[facility] ([facility])[address] HEMOGLOBIN PRESENCE IN URINE Negative Normal Negative [facility] Comment on above: Performed By: #### L [id number] ####Furnace Mechanic: LOCO CRUZ ([id number])[facility] ([facility])[address] Ketones Ql (U) 20 mg/dL Abnormal Negative [facility] Comment on above: Performed By: #### L [id number] ####Furnace Mechanic: LOCO CRUZ ([id number])[facility] ([facility])[address] [place] [id number] [facility] LEUKOCYTE ESTERASE PRESENCE IN URINE BY TEST STRIP Negative Normal Negative [facility] Comment on above: Performed By: #### L [id number] ####Furnace Mechanic: LOCO CRUZ ([id number])[facility] ([facility])[address] [place] [address] [place] MUCUS (#/LPF) IN URINE SEDIMENT Moderate Abnormal Negative [facility] Comment on above: Performed By: #### L [id number] ####Furnace Mechanic: LOCO CRUZ ([id number])[facility] ([facility])[address] [place] [address] [place] NITRITE PRESENCE IN URINE Negative Normal Negative [facility] Comment on above: Performed By: #### L [id number] ####Furnace Mechanic: LOCO CRUZ ([id number])[facility] ([facility])[address] pH (U) 6.0 [pH] Normal 5.0-8.0 [facility] Comment on above: Performed By: #### L [id number] ####Furnace Mechanic: LOCO CRUZ ([id number])[facility] ([facility])[address] Protein (U) [Mass/Vol] 30 mg/dL Abnormal Negative [facility] Comment on above: Performed By: #### L [id number] ####Furnace Mechanic: LOCO CRUZ ([id number])[facility] ([facility])[address] RBC (#/HPF) IN URINE SEDIMENT 0-2 Normal 0-2 [facility] Comment on above: Performed By: #### L [id number] ####Furnace Mechanic: LOCO CRUZ ([id number])[facility] ([facility])[address] Specific gravity (U) [Rel density] 1.035 High 1.005-1.03 0 [facility] Comment on above: Performed By: #### L [id number] ####Furnace Mechanic: LOCO CRUZ ([id number])[facility] ([facility])[address] Specimen volume (U) 12 mL Normal [facility] Comment on above: Performed By: #### L [id number] ####Furnace Mechanic: LOCO CRUZ ([id number])[facility] ([facility])[address] SQUAMOUS EPITHELIAL CELLS (#/HPF) IN URINE SEDIMENT 3-5 Normal 3-5 [facility] Comment on above: Performed By: #### L [id number] ####Furnace Mechanic: LOCO CRUZ ([id number])[facility] ([facility])[address] UROBILINOGEN (MG/DL) IN URINE 3 mg/dL Abnormal Normal (0-1) [facility] Comment on above: Performed By: #### L [id number] ####Furnace Mechanic: LOCO CRUZ ([id number])[facility] ([facility])[address] WBC (LEUKOCYTE) (#/HPF) IN URINE SEDIMENT 3-5 Normal 0-5 [facility] Comment on above: Performed By: #### L [id number] ####Furnace Mechanic: LOCO CRUZ ([id number])[facility] ([facility])[address] COMPREHENSIVE METABOLIC PANE Duong 03-26-2024 Albumin [Mass/Vol] 4.0 g/dL Normal 3.5-5.0 [facility] Comment on above: Performed By: #### L AB17, AZQ658, LAB99, FAL661, HDH745 #### Furnace Mechanic: LOCO CRUZ ([id number]) [facility] ([facility]) [address] ALP [Catalytic activity/Vol] 95 U/L Normal 38-126 [facility] Comment on above: Performed By: #### L AB17, CYL655, LAB99, VOF344, GTH541 #### Furnace Mechanic: LOCO CRUZ ([id number]) [facility] ([facility]) [address] [place] [address] [place] ALT [Catalytic activity/Vol] 55 U/L High 0-34 [facility] Comment on above: Performed By: #### L AB17, MOV404, LAB99, APD343, DQG904 #### Furnace Mechanic: LOCO CRUZ ([id number]) [facility] ([facility]) [address] [place] [address] [facility] Anion gap [Moles/Vol] 9 mmol/L Normal 3-13 [facility] Comment on above: Performed By: #### L AB17, BVS289, LAB99, MAU929, MXH068 #### Furnace Mechanic: LOCO CRUZ ([id number]) [facility] ([facility]) [address] [place] [id number] AST [Catalytic activity/Vol] 99 U/L High 15-46 [facility] Comment on above: Performed By: #### L AB17, LIY619, LAB99, PLT873, AEX707 #### Furnace Mechanic: LOCO CRUZ ([id number]) [facility] ([facility]) [address] [place] [id number] [facility] Bilirubin [Mass/Vol] 1.2 mg/dL Normal 0.2-1.3 [facility] Comment on above: Performed By: #### L AB17, NXT798, LAB99, XQJ067, EOQ753 #### Furnace Mechanic: LOCO CRUZ ([id number]) [facility] ([facility] [address] Calcium [Mass/Vol] 9.2 mg/dL Normal 8.4-10.4 [facility] Comment on above: Performed By: #### L AB17, DQH347, LAB99, LLG948, GMA198 #### Furnace Mechanic: LOCO CRUZ ([id number]) [facility] ([facility] [address] [place] [address] [place] Chloride [Moles/Vol] 105 mmol/L Normal 98-107 [facility] Comment on above: Performed By: #### L AB17, XFY040, LAB99, SZA951, BWI831 #### Furnace Mechanic: LOCO CRUZ ([id number]) [facility] ([facility] [address] [place] [address] [facility] CO2 [Moles/Vol] 25 mmol/L Normal 22-30 [facility] Comment on above: Performed By: #### L AB17, FXX549, LAB99, BZD467, CKX017 #### Furnace Mechanic: LOCO CRUZ ([id number]) [facility] ([facility] [address] [place] [id number] [facility] Creatinine [Mass/Vol] 0.78 mg/dL Normal 0.52-1.04 [facility] Comment on above: Performed By: #### L AB17, UNJ262, LAB99, GQE936, NGF026 #### Furnace Mechanic: LOCO CRUZ ([id number]) [facility] ([facility]) [address] GLOMERULAR FILTRATION RATE ML/MIN/1.73 SQ M.PREDICTED >90.0 Normal >60.0 [facility] Comment on above: Result Comment: Calc ulation based on the Chronic Kidney Disease Epidemiology Collaboration (CKD-EPI) equation refit without adjustment for race Performed By: #### Carolynn AB17, SPR806, LAB99, ZCQ462, KUI271 #### Furnace Mechanic: LOCO CRUZ ([id number]) [facility] ([facility] [address] [place] [address] [place] Glucose [Mass/Vol] 99 mg/dL Normal 70-100 [facility] Comment on above: Performed By: #### L AB17, TXN328, LAB99, ACP594, YDA762 #### Furnace Mechanic: LOCO CRUZ ([id number]) [facility] ([facility] [address] [place] [address] [place] Potassium [Moles/Vol] 3.3 mmol/L Low 3.5-5.1 [facility] Comment on above: Performed By: #### L AB17, ABD122, LAB99, GMX423, WGO916 #### Furnace Mechanic: LOCO CRUZ ([id number]) [facility] ([facility]) [address] Protein [Mass/Vol] 7.2 g/dL Normal 6.3-8.2 [facility] Comment on above: Performed By: #### L AB17, VNU234, LAB99, ZOB787, AYB329 #### Furnace Mechanic: LOCO CRUZ ([id number]) [facility] ([facility]) [address] Sodium [Moles/Vol] 139 mmol/L Normal 135-145 [facility] Comment on above: Performed By: #### L AB17, DWO130, LAB99, DRP987, EDI132 #### Furnace Mechanic: LOCO CRUZ ([id number]) [facility] ([facility]) [address] Urea nitrogen [Mass/Vol] 17 mg/dL Normal 7-17 [facility] Comment on above: Performed By: #### L AB17, EVH510, LAB99, IVK031, SLO972 #### Furnace Mechanic: LOCO CRUZ ([id number]) [facility] ([facility]) [address] [place] [address] CT ABDOMEN PELVIS WO [facility] ABDOMEN PELVIS WO IV CONTRAST Patient Name: SHARLA JOINER : 1975 Exam Date/Time: 03/26/2024 15:18 Procedure: CT ABDOMEN PELVIS WO IV CONTRAST Ordering Provider: SIEGEL DANIEL Reason For Exam: Abdominal pain, acute, nonlocalized CLINICAL INFORMATION: Acute onset of nonlocalized abdominal and pelvic pain. CT abdomen and pelvis without intravenous contrast: CT abdomen: Volume acquisition CT images are obtained the diaphragm to the iliac crests without oral or intravenous contrast administration with axial, coronal and sagittal 2-D reconstructions. Dose reduction was employed with automated exposure control. Images through the lower chest demonstrate streaky and hazy densities in the lower lobes which could be dependent atelectasis and/or scarring. There are no other significant abnormal pleural or parenchymal densities. No calcified renal or proximal ureteral calculi are identified on either side. There is no hydronephrosis or proximal ureteral dilatation on either side. The unenhanced kidneys are otherwise unremarkable in size, configuration and density. No inflammatory changes are seen in the perinephric fat. The unenhanced liver, spleen and pancreas are unremarkable in size, configuration and density. There is no abnormality of the gallbladder. There is no adrenal gland nodule or enlargement. There is no visible abnormality of the unopacified stomach or abdominal small or large bowel. There is no ascites or retroperitoneal lymphadenopathy. No other focal mass, fluid collection or inflammatory process is seen. There is no abnormality of the abdominal aorta. The lumbar vertebra and posterior elements are intact. CT pelvis: Volume acquisition CT images were obtained from the iliac crests to the symphysis pubis without oral or intravenous contrast administration with axial, coronal and sagittal 2-D reconstructions. Dose reduction was employed with automated exposure control. No calcified calculi or dilatation is seen of either distal ureter. There is an incompletely distended unopacified urinary bladder without calcified calculus, wall thickening or other visible abnormality. There is a vertical orientation of the uterus without visible abnormality of the uterus or adnexa. There are scattered sigmoid colon diverticula without evidence of diverticulitis. No focal mass or fluid collection is seen. There is no iliac or inguinal lymphadenopathy. No ascites or inflammatory changes are identified. IMPRESSION: 1. No evidence for calcified collecting system calculi or obstruction. 2. Sigmoid diverticulosis without evidence of diverticulitis. 3. No evidence of mass, lymphadenopathy or inflammatory process. Report Dictated on Electronically Signed By: Jaron Ro MD Electronically Signed Date/Time: 03/26/2024 3:29 PM EDT Entire A/P pain. Pt Is MR and non verbal +hx of UTIs No other hx per resident care director Normal [facility] CT Abdomen WO contraston 1. No evidence for c alcified collecting system calculi or obstruction. 2. Sigmoid diverticulosis without evidence of diverticulitis. 3. No evidence of mass, lymphadenopathy or inflammatory process. Report Dictated on Electronically Signed By: Jaron Ro MD Electronically Signed Date/Time: 03/26/2024 3:29 PM [facility] Patient Name: SHARLA JOINER : 1975 [facility]#: [id number] Exam Date/Time: 03/26/2024 15:18 Procedure: CT ABDOMEN PELVIS WO IV CONTRAST Ordering Provider: SIEGEL DANIEL Reason For Exam: Abdominal pain, acute, nonlocalized CLINICAL INFORMATION: Acute onset of nonlocalized abdominal and pelvic pain. CT abdomen and pelvis without intravenous contrast: CT abdomen: Volume acquisition CT images are obtained the diaphragm to the iliac crests without oral or intravenous contrast administration with axial, coronal and sagittal 2-D reconstructions. Dose reduction was employed with automated exposure control. Images through the lower chest demonstrate streaky and hazy densities in the lower lobes which could be dependent atelectasis and/or scarring. There are no other significant abnormal pleural or parenchymal densities. No calcified renal or proximal ureteral calculi are identified on either side. There is no hydronephrosis or proximal ureteral dilatation on either side. The unenhanced kidneys are otherwise unremarkable in size, configuration and density. No inflammatory changes are seen in the perinephric fat. The unenhanced liver, spleen and pancreas are unremarkable in size, configuration and density. There is no abnormality of the gallbladder. There is no adrenal gland nodule or enlargement. There is no visible abnormality of the unopacified stomach or abdominal small or large bowel. There is no ascites or retroperitoneal lymphadenopathy. No other focal mass, fluid collection or inflammatory process is seen. There is no abnormality of the abdominal aorta. The lumbar vertebra and posterior elements are intact. CT pelvis: Volume acquisition CT images were obtained from the iliac crests to the symphysis pubis without oral or intravenous contrast administration with axial, coronal and sagittal 2-D reconstructions. Dose reduction was employed with automated exposure control. No calcified calculi or dilatation is seen of either distal ureter. There is an incompletely distended unopacified urinary bladder without calcified calculus, wall thickening or other visible abnormality. There is a vertical orientation of the uterus without visible abnormality of the uterus or adnexa. There are scattered sigmoid colon diverticula without evidence of diverticulitis. No focal mass or fluid collection is seen. There is no iliac or inguinal lymphadenopathy. No ascites or inflammatory changes are identified. [facility] Jaron Ro MD - 03/26/2024 Patient Name: SHARLA JOINER : 1975 [facility]#: [id number] Exam Date/Time: 03/26/2024 15:18 Procedure: CT ABDOMEN PELVIS WO IV CONTRAST Ordering Provider: SIEGEL DANIEL Reason For Exam: Abdominal pain, acute, nonlocalized CLINICAL INFORMATION: Acute onset of nonlocalized abdominal and pelvic pain. CT abdomen and pelvis without intravenous contrast: CT abdomen: Volume acquisition CT images are obtained the diaphragm to the iliac crests without oral or intravenous contrast administration with axial, coronal and sagittal 2-D reconstructions. Dose reduction was employed with automated exposure control. Images through the lower chest demonstrate streaky and hazy densities in the lower lobes which could be dependent atelectasis and/or scarring. There are no other significant abnormal pleural or parenchymal densities. No calcified renal or proximal ureteral calculi are identified on either side. There is no hydronephrosis or proximal ureteral dilatation on either side. The unenhanced kidneys are otherwise unremarkable in size, configuration and density. No inflammatory changes are seen in the perinephric fat. The unenhanced liver, spleen and pancreas are unremarkable in size, configuration and density. There is no abnormality of the gallbladder. There is no adrenal gland nodule or enlargement. There is no visible abnormality of the unopacified stomach or abdominal small or large bowel. There is no ascites or retroperitoneal lymphadenopathy. No other focal mass, fluid collection or inflammatory process is seen. There is no abnormality of the abdominal aorta. The lumbar vertebra and posterior elements are intact. CT pelvis: Volume acquisition CT images were obtained from the iliac crests to the symphysis pubis without oral or intravenous contrast administration with axial, coronal and sagittal 2-D reconstructions. Dose reduction was employed with automated exposure control. No calcified calculi or dilatation is seen of either distal ureter. There is an incompletely distended unopacified urinary bladder without calcified calculus, wall thickening or other visible abnormality. There is a vertical orientation of the uterus without visible abnormality of the uterus or adnexa. There are scattered sigmoid colon diverticula without evidence of diverticulitis. No focal mass or fluid collection is seen. There is no iliac or inguinal lymphadenopathy. No ascites or inflammatory changes are identified. IMPRESSION: 1. No evidence for calcified collecting system calculi or obstruction. 2. Sigmoid diverticulosis without evidence of diverticulitis. 3. No evidence of mass, lymphadenopathy or inflammatory process. Report Dictated on Electronically Signed By: Jaron Ro MD Electronically Signed Date/Time: 03/26/2024 3:29 PM EDT [facility] Radiology Study observation (narrative) [facility] CT Abdomen WO contrastOrdere d By: Jaron Ro on 03-26-2024 [facility] Work Phone: Comprehensive metabolic 1998 panelon 03-26-2024 Albumin [Mass/Vol] 4.0 g/dL 3.5 - 5.0 g/dL [facility] ALP [Catalytic activity/Vol] 95 U/L 38 - 126 U/L [facility] ALT [Catalytic activity/Vol] 55 U/L High 0 - 34 U/L [facility] Anion gap [Moles/Vol] 9 mmol/L 3 - 13 mmol/L [facility] AST [Catalytic activity/Vol] 99 U/L High 15 - 46 U/L [facility] Bilirubin [Mass/Vol] 1.2 mg/dL 0.2 - 1 .3 mg/dL [facility] Calcium [Mass/Vol] 9.2 mg/dL 8.4 - 10. 4 mg/dL [facility] Chloride [Moles/Vol] 105 mmol/L 98 - 10 7 mmol/L [facility] CO2 [Moles/Vol] 25 mmol/L 22 - 30 mmol/L [facility] Creatinine [Mass/Vol] 0.78 mg/dL 0.52 - 1.04 mg/dL [facility] GFR/1.73 sq M.predicted (S/P/Bld) [Vol rate/Area] - PINF [facility] Comment on above: Calculation based on the Chronic Kidney Disease Epidemiology Collaboration (CKD-EPI) equation refit without adjustment for race Glucose [Mass/Vol] 99 mg/dL 70 - 100 mg/dL [facility] Interpretation and review of laboratory results Abnormal [facility] Potassium [Moles/Vol] 3.3 mmol/L Low 3.5 - 5.1 mmol/L [facility] Protein [Mass/Vol] 7.2 g/dL 6.3 - 8.2 g/dL [facility] Sodium [Moles/Vol] 139 mmol/L 135 - 145 mmol/L [facility] Urea nitrogen [Mass/Vol] 17 mg/dL 7 - 17 mg/dL [facility] ECG 12-LEADon 03-26-2024 ECG 12-LEAD IMPRESSION: Sinus tachycardia Borderline prolonged QT interval no stemi Electronically Signed On 03-26-2024 13:22:07 EDT by Luci Shah [facility] ED Nursing Noteon 03-26-2024 ED Nursing Note EKG, IV, blood work, covid and straight cath completed with assistance of Juliette Ponce RN, Juan medic and Mary medic; patient tolerated well. Respirations even and unlabored, no distress noted. Caregiver at bedside throughout all procedures and remains with patient after Trish Miranda RN 03/26/24 1316 [facility] ED Nursing Note EKG performed by Roberto lópez and given to MD for review Trish Miranda RN 03/26/24 1303 [facility] ED Provider Noteon ED Provider Note Emergency Department Encounter [facility] EMERGENCY DEPT Patient: Sharla Joiner : 1975 Date of Evaluation: 03/26/2024 ED Supervising Physician: Luci Shah MD I personally evaluated Sharla Joiner and made/approved the management plan and take responsibility for the patient management. This will serve as my Supervisory note and shared attestation. I did perform a substantive portion of the visit including all aspects of the Medical Decision Making. I wore appropriate PPE for the entirety of this encounter. In brief, Sharla Joiner is a 48 y.o. that presents to the emergency department for agitation. Patient brought in by her traffic sign erection supervisor from her shelter. She has autism she does verbalize at baseline but does not make sense at baseline. The traffic sign erection supervisor states she has been complaining of pain when she has bowel movements and she has been aggressive with others not acting herself. She has not been eating drinking or sleeping. She was seen here few days ago and diagnosed with possible ear infection. Tower Supervisor did not report any rash to the groin as they do bathe her. Focused exam: Awake alert hypertensive slightly tachycardic afebrile nontoxic no acute distress pacing around the room Mucous membranes are slightly dry neck is supple no respiratory distress abdominal exam nontender nondistended no peritonitis Extremities without injury or infection. Answers no to any questions asked Moving all extremities spontaneously with steady gait Brief ED course/MDM: 48-year-old female here for not acting herself. Differential infection metabolic disturbance UTI dehydration stroke. Plan is for labs, urine. She may require intramuscular medications to allow for blood and urine to be obtained as she is not willing. Consider CT abdomen pelvis as well. Diagnostics interpreted by me: none I personally discussed the patient's management with other clinicians: none All diagnostic, treatment, and disposition decisions were made by myself in conjunction with the [facility]. For all further details of the patient's emergency department visit, please see their documentation. (Comment: Please note this report has been produced using speech recognition software and may contain errors related to that system including errors in grammar, punctuation, and spelling, as well as words and phrases that may be inappropriate. If there are any questions or concerns please feel free to contact the dictating provider for clarification.) Luci Shah MD Acute Care [facility] Luci Shah MD 03/26/24 1223 [facility] ED Provider Note EMERGENCY DEPARTMENT ENCOUNTER Pt Name: Sharla Joiner Birthdate 1975 Date of evaluation: 03/26/2024 ED Provider: Leigha Siegel APRN - MAT This patient was seen in conjunction with Dr. Shah CHIEF COMPLAINT Chief Complaint Patient presents with Abdominal Pain Pt c/o abdominal pain x 3 days. No report of vomiting. Care provider states they were here Tuesday for same s/s. Pt also c/o bilat ear pain, runny nose. No cough HISTORY OF PRESENT ILLNESS (Location/Symptom, Timing/Onset, Context/Setting, Quality, Duration, Modifying Factors, Severity) Note limiting factors. I wore appropriate PPE for the entirety of this encounter. HPI Sharla Joiner is a 48 y.o. who presents to the emergency department with chief complaint of agitation, abdominal pain, not sleeping, strengthening other staff at the shelter. Patient is autistic has developmental delay, she was here couple days ago had to give her Ativan and Versed eventually family and shelter employee just wanted to take her back to follow-up as an outpatient. States is gotten worse over the last 3 days. No nausea vomiting but no appetite and the staff states that she is not eating. Nursing Notes were reviewed. Limitations to history: None Outside historians: None REVIEW OF SYSTEMS Review of Systems Unable to perform ROS: Other Constitutional: Positive for appetite change. Negative for activity change, chills and fever. HENT: Negative for congestion, nosebleeds, sinus pain and trouble swallowing. Eyes: Negative for pain and visual disturbance. Respiratory: Negative for cough, chest tightness and shortness of breath. Cardiovascular: Negative for chest pain. Gastrointestinal: Positive for abdominal pain. Negative for diarrhea, nausea and vomiting. Genitourinary: Negative for dysuria, hematuria, pelvic pain, vaginal bleeding, vaginal discharge and vaginal pain. Musculoskeletal: Negative for arthralgias, back pain and myalgias. Skin: Negative for rash and wound. Neurological: Negative for syncope, weakness, light-headedness and headaches. Hematological: Negative for adenopathy. Psychiatric/Behavioral: Positive for agitation. Negative for confusion. All other systems reviewed and are negative. Pertinent positives and negatives as per HPI. PAST MEDICAL HISTORY Past Medical History: Diagnosis Date Aggressive behavior Autistic disorder, residual state Bipolar 1 disorder (HCC) Impulse control disease Memory impairment Parkinson's disease (HCC) Scoliosis Tardive dyskinesia SURGICAL HISTORY History reviewed. No pertinent surgical history. CURRENT MEDICATIONS Previous Medications ACETAMINOPHEN (TYLENOL) 325 MG TABLET Take 325 mg by mouth. AMANTADINE (SYMMETREL) 100 MG CAPSULE TAKE 1 CAP BY MOUTH TWICE A DAY AMOXICILLIN-CLAVULANATE (AUGMENTIN) 875-125 MG TABLET Take 1 tablet by mouth in the morning and 1 tablet in the evening. Do all this for 10 days. CARBIDOPA-LEVODOPA (SINEMET) 25-100 MG TABLET Take by mouth. CEPHALEXIN (KEFLEX) 500 MG CAPSULE TAKE 1 CAPSULE BY MOUTH EVERY 12 HOURS FOR 7 DAYS CHOLECALCIFEROL (VITAMIN D-3) 50 MCG (2000 UT) CAPSULE Take 2,000 Units by mouth daily. CHOLECALCIFEROL (VITAMIN D-3) 50 MCG (2000 UT) CAPSULE 2,000 Units. DIVALPROEX (DEPAKOTE ER) 500 MG 24 HR TABLET DIVALPROEX (DEPAKOTE) 500 MG EC TABLET Take 1 tablet by mouth 2 times daily. DIVALPROEX SPRINKLE (DEPAKOTE SPRINKLE) [address] CAPSULE DOCUSATE SODIUM (DSS) 100 MG CAPSULE FLUDROCORTISONE (FLORINEF) 0.1 MG TABLET TAKE 2 TABLETS BY MOUTH AT 8 AM AND 8 PM LOPERAMIDE (IMODIUM) 2 MG CAPSULE Take 2 mg by mouth 3 times daily as needed. LORAZEPAM (ATIVAN) 2 MG TABLET Take 1 tablet by mouth every morning. MELATONIN 5 MG TABLET 5 mg. MIDODRINE (PROAMATINE) 5 MG TABLET Take 10 mg by mouth. MONTELUKAST (SINGULAIR) 10 MG TABLET Take 1 tablet by mouth daily. MULTIPLE VITAMIN (TAB-A-KENNETH/BETA CAROTENE) TABLET PANTOPRAZOLE (PROTONIX) 40 MG EC TABLET Take 40 mg by mouth. POLYETHYLENE GLYCOL, PEG, 3350 (GLYCOLAX) 17 GM/SCOOP POWDER RISPERDAL CONSTA 12.5 MG INJECTION Inject 12.5 mg into the shoulder, thigh, or buttocks every 14 (fourteen) days. RISPERIDONE (RISPERDAL) 1 MG TABLET TRAZODONE (DESYREL) 150 MG TABLET Take 150 mg by mouth. ALLERGIES Patient has no known allergies. FAMILY HISTORY No family history on file. SOCIAL HISTORY Social History Socioeconomic History Marital status: Single Tobacco Use Smoking status: Never Smokeless tobacco: Never Substance and Sexual Activity Alcohol use: Not Currently SCREENINGS PHYSICAL EXAM ED Triage Vitals [03/26/24 1057] Temp Heart Rate Resp BP 36.6 ?C (97.8 ?F) 102 18 (!) 144/88 SpO2 Temp Source Heart Rate Source Patient Position 96 % Temporal Monitor -- BP Location FiO2 (%) -- -- Physical Exam Vitals and nursing note reviewed. Constitutional: General: She is not in acute distress. Appearance: Normal appeara (more content not included)... Normal [facility] HCG QUANTITATIVE BLOODon HCG QUANTITATIVE <2 Normal Females <=5 [facility] Comment on above: Result Comment: NAIMA Mohan COMMENTS: Values in should double every 2 to 3 days for the first 6 weeks. Elevated concentrations of human chorionic gonadotropin (hCG) measured in the first trimester of are observed in normal , but may serve as an indication of chorionic carcinoma, hydatiform mole, or multiple . Decreasing hCG concentrations indicate threatened or missed , recent termination of , ectopic , gestosis or intrauterine . Kaya- and postmenopausal females may have detectable hCG concentrations (< or = to 14 mIU/mL) due to pituitary production of hCG. Serum follicle-stimulating hormone measurement may aid in ruling-out in this population. Cutoffs of greater than 20 to 45 mIU/mL have been suggested and are method dependent. False-elevations (called phantom human chorionic gonadotropin: hCG) may occur with patients who have human antianimal or heterophilic antibodies. Some specimens may not dilute linearly due to abnormal forms of hCG. Elevated hCG concentrations not associated with are found in patients with other diseases such as tumors of the germ cells, ovaries, bladder, pancreas, stomach, lungs, and liver. This test is not intended to detect or monitor tumors or gestational trophoblastic disease. Performed By: #### L [id number], [id number], LAB99, [id number], [id number] ####Furnace Mechanic: LOCO CRUZ ([id number])[facility] ([facility])[address] LACTIC ACID WITH REFLEXon Lactate [Moles/Vol] 1.1 mmol/L Normal 0.7-2.0 [facility] Comment on above: Performed By: #### L [id number] ####Furnace Mechanic: LOCO CRUZ ([id number])[facility] ([facility])[address] [place] [id number] [facility] LIPASEon 03-26-2024 Lipase [Catalytic activity/Vol] 66 U/L Normal 23-300 [facility] Comment on above: Performed By: #### L AB17, [id number], LAB99, [id number], [id number] ####Furnace Mechanic: LOCO CRUZ ([id number])[facility] ([facility])[address] Laboratory - Chemistry and C hemistry - challengeon 03-26-2024 HCG.beta subunit Qn Females <=5 mIU/mL [facility] Troponin I.cardiac [Mass/Vol] 0.022 ng/mL NINF - 0.034 ng/mL [facility] Lipase [Catalytic activity/Vol] 66 U/L 23 - 300 U/L [facility] Magnesium [Mass/Vol] 2.1 mg/dL 1.6 - 2 .3 mg/dL [facility] Lactate [Moles/Vol] 1.1 mmol/L 0.7 - 2. 0 mmol/L [facility] Laboratory - Microbiology an d Antimicrobial susceptibilityon 03-26-2024 FLUAV RNA MACIE+probe Ql (Resp) Not detected Not Detected [facility] FLUBV RNA MACIE+probe Ql (Resp) Not detected Not Detected [facility] RSV RNA MACIE+probe Ql (Resp) Not detected Not Detected [facility] SARS-CoV-2 (COVID-19) RNA MACIE+probe Ql (Resp) Not detected Not Detected [facility] SARS-CoV-2 (COVID-19) RNA MACIE+probe Ql (Unsp spec) Methodology: real-time, RT-PCR The SARS-CoV-2, Flu A/B, and RSV Combo assay is intended for in vitro diagnostic use under the FDA Emergency Use Authorization (EUA). This test has not been FDA cleared or approved. In compliance with this authorization, please visit www.fda.gov/media/796021/vivienne nload or www.fda.gov/media/637160/vivienne nload to access the applicable information sheets. [facility] MAGNESIUMon 03-26-2024 Magnesium [Mass/Vol] 2.1 mg/dL Normal 1.6-2.3 [facility] Comment on above: Performed By: #### L AB17, [id number], LAB99, [id number], [id number] #### Furnace Mechanic: LOCO CRUZ ([id number]) [facility] [address] [place] [address] No Panel Informationon 03-26 Values in should double every 2 to 3 days for the first 6 weeks. Elevated concentrations of human chorionic gonadotropin (hCG) measured in the first trimester of are observed in normal , but may serve as an indication of chorionic carcinoma, hydatiform mole, or multiple . Decreasing hCG concentrations indicate threatened or missed , recent termination of , ectopic , gestosis or intrauterine . Kaya- and postmenopausal females may have detectable hCG concentrations (< or = to 14 mIU/mL) due to pituitary production of hCG. Serum follicle-stimulating hormone measurement may aid in ruling-out in this population. Cutoffs of greater than 20 to 45 mIU/mL have been suggested and are method dependent. False-elevations (called phantom human chorionic gonadotropin: hCG) may occur with patients who have human antianimal or heterophilic antibodies. Some specimens may not dilute linearly due to abnormal forms of hCG. Elevated hCG concentrations not associated with are found in patients with other diseases such as tumors of the germ cells, ovaries, bladder, pancreas, stomach, lungs, and liver. This test is not intended to detect or monitor tumors or gestational trophoblastic disease. [facility] Interpretation and review of laboratory results Normal [facility] Interpretation and review of laboratory results Normal [facility] P [place] 33 degrees [facility] GA Interval 102 ms [facility] QRS [place] -5 degrees [facility] QRSD Interval 90 ms [facility] QT Interval 377 ms [facility] QTC Interval 498 ms [facility] T Wave [place] 16 degrees [facility] Sinus tachycardia Borderline prolonged QT interval no stemi Electronically Signed On 03-26-2024 13:22:07 EDT by Luci Shah CV Luci Cai MD - 03/26/2024 IMPRESSION: Sinus tachycardia Borderline prolonged QT interval no stemi Electronically Signed On 03-26-2024 13:22:07 EDT by Luci Shah [facility] SARS-COV-2, FLU A/B, AND RSV COMBOon 03-26-2024 SARS-CoV-2 (COVID-19) RNA MACIE+probe Ql (Unsp spec) SARS-COV-2 Reference Not Detected Not Detected RESPIRATORY SYNCYTIAL VIRUS Reference Not Detected Not Detected INFLUENZA A (CEPHEID) Reference Not Detected Not Detected INFLUENZA B (CEPHEID) Reference Not Detected Not Detected ORDER COMMENTS: Methodology: real-time, RT-PCR The SARS-CoV-2, Flu A/B, and RSV Combo assay is intended for in vitro diagnostic use under the FDA Emergency Use Authorization (EUA). This test has not been FDA cleared or approved. In compliance with this authorization, please visit www.fda.gov/media/076802/vivienne nload or www.fda.gov/media/653393/vivienne nload to access the applicable information sheets. Normal [facility] Comment on above: Performed By: #### L [id number] #### Furnace Mechanic: LOCO CRUZ ([id number]) [facility] ([facility]) [address] [place] [address] SARS-CoV-2, Flu A/B, and RSV Comboon 03-26-2024 Interpretation and review of laboratory results Normal [facility] TROPONIN Ion 03-26-2024 Troponin I.cardiac [Mass/Vol] 0.022 ng/mL Normal <0.034 [facility] Comment on above: Result Comment: NAIMA Mohan COMMENTS: Patients with high levels of Biotin oral intake (ie >5 mg/day) may have falsely decreased Troponin levels. Performed By: #### L AB17, [id number], LAB99, [id number], [id number] ####Furnace Mechanic: LOCO CRUZ ([id number])[facility] ([facility])[address] [place] [address] Troponin I.cardiac [Mass/Vol ]on 03-26-2024 Interpretation and review of laboratory results Normal [facility] Patients with high l evels of Biotin oral intake (ie >5 mg/day) may have falsely decreased Troponin levels. [facility] Urinalysis complete panel (U )Ordered By: Anastasia Bob on 03-26-2024 Bacteria LM.HPF (Urine sed) [#/Area] Negative Negative /HPF [facility] Bilirubin Ql (U) Negative Negative mg/dL [facility] Clarity (U) Clear Clear [facility] Color (U) Dark Yellow Abnormal Lt. Yellow [facility] Epithelial cells.squamous LM.HPF (Urine sed) [#/Area] 3-5 [facility] Glucose Ql (U) Normal Normal (<70) mg/dL [facility] Hemoglobin Ql (U) Negative Negative mg/dL [facility] Interpretation and review of laboratory results Abnormal [facility] Ketones (U) [Mass/Vol] 20 mg/dL Abnormal Negative [facility] Leukocyte esterase Test strip Ql (U) Negative Negative Michelle/uL [facility] Mucus LM.HPF (Urine sed) [#/Area] Moderate Abnormal Negative /LPF [facility] Nitrite Ql (U) Negative Negative [facility] pH (U) 6.0 [pH] 5.0 - 8.0 pH [facility] Protein (U) [Mass/Vol] 30 mg/dL Abnormal Negative [facility] RBC LM.HPF (Urine sed) [#/Area] 0-2 [facility] Specific gravity (U) [Rel density] 1.035 High 1.005 - 1.030 [facility] Urobilinogen (U) [Mass/Vol] 3 mg/dL Abnormal Normal (0-1) [facility] Volume, Urine 12 mL [facility] WBC LM.HPF (Urine sed) [#/Area] 3-5 [facility] Vital signson 03-26-2024 Heart rate 105 /min bpm [facility] ED Nursing Noteon 03-24-2024 ED Nursing Note Mother states the pa choco is finally at a point where they can take her home and she will go to bed and sleep. Mother states she does not want the lab tests at this time and states she will bring her back if there is a need. Lalit LEYVA notified. Matt Mix RN 03/24/24 2250 Normal [facility] ED Nursing Note Pt still pacing in r oom and unable to draw blood at this time. Matt Mix RN 03/24/24 2227 Normal [facility] ED Nursing Note Patient very agitate d and restless, patient refusing to stay in room and remains uncooperative. Lalit ORNELAS notified. Unable to obtain blood work at this time. Sheridan Deng RN 03/24/24 2148 Normal [facility] ED Provider Noteon ED Provider Note EMERGENCY DEPARTMENT ENCOUNTER Pt Name: Sharla Joiner Birthdate 1975 Date of evaluation: 03/24/2024 ED Provider: Lalit Solorzano APRN - CASE MANAGEMENT ASSISTANT Patient seen independently within my scope of practice with an Emergency Medicine attending available for supervision. CHIEF COMPLAINT Chief Complaint Patient presents with Earache Patient arrives to ED via private vehicle for ear pain. Patient did not take her medications this morning, mother states she thinks it's due to patient not feeling well. Patient is agitated during triage HISTORY OF PRESENT ILLNESS (Location/Symptom, Timing/Onset, Context/Setting, Quality, Duration, Modifying Factors, Severity) Note limiting factors. I wore appropriate PPE for the entirety of this encounter. History provided by: Patient catalog specialist used: No Sharla Joiner is a 48 y.o. female with past medical history for bipolar disorder, autistic disorder, Parkinson's disease, tardive dyskinesia, UTI and ear infection presents to the emergency department for evaluation of left earache. Patient's caregiver states that the patient has been tugging on her left ear, and she has been pacing around at the shelter. Patient's mom and caregiver suspect that the patient might be having ear infection. Patient has not taken her medications today. Patient is not able to contribute to history due to baseline mental status. Nursing Notes were reviewed. Limitations to history: None Outside historians: None REVIEW OF SYSTEMS Review of Systems HENT: Positive for ear pain (Suspected left earache). All other systems reviewed and are negative. Pertinent positives and negatives as per HPI. PAST MEDICAL HISTORY Past Medical History: Diagnosis Date Aggressive behavior Autistic disorder, residual state Bipolar 1 disorder (HCC) Impulse control disease Memory impairment Parkinson's disease (HCC) Scoliosis Tardive dyskinesia SURGICAL HISTORY No past surgical history on file. CURRENT MEDICATIONS Discharge Medication List as of 03/24/2024 10:58 PM CONTINUE these medications which have NOT CHANGED Details acetaminophen (Tylenol) 325 MG tablet Take 325 mg by mouth., Historical Med amantadine (Symmetrel) 100 MG capsule TAKE 1 CAP BY MOUTH TWICE A DAY, Historical Med carbidopa-levodopa (Sinemet) 25-100 MG tablet Take by mouth., Starting 08/23/2022, Historical Med cephalexin (Keflex) 500 MG capsule TAKE 1 CAPSULE BY MOUTH EVERY 12 HOURS FOR 7 DAYS, Historical Med !! cholecalciferol (Vitamin D-3) 50 MCG (1999 UT) capsule Take 2,000 Units by mouth daily., Starting 11/26/2023, Historical Med !! cholecalciferol (Vitamin D-3) 50 MCG (1999 UT) capsule 2,000 Units., Historical Med divalproex (Depakote ER) 500 MG 24 hr tablet Starting Tia 02/10/2023, Historical Med divalproex (Depakote) 500 MG EC tablet Take 1 tablet by mouth 2 times daily., Historical Med divalproex sprinkle (Depakote Sprinkle) [address] capsule Starting Tia 02/10/2023, Historical Med Docusate Sodium (DSS) 100 MG capsule Historical Med fludrocortisone (Florinef) 0.1 MG tablet TAKE 2 TABLETS BY MOUTH AT 8 AM AND 8 PM, Historical Med loperamide (Imodium) 2 MG capsule Take 2 mg by mouth 3 times daily as needed., Historical Med LORazepam (Ativan) 2 MG tablet Take 1 tablet by mouth every morning., Historical Med melatonin 5 MG tablet 5 mg., Starting Tue04/29/2023, Historical Med midodrine (Proamatine) 5 MG tablet Take 10 mg by mouth., Starting 01/15/2023, Historical Med montelukast (Singulair) 10 MG tablet Take 1 tablet by mouth daily., Starting 08/23/2022, Historical Med Multiple Vitamin (Tab-A-Kenneth/Beta Carotene) tablet Historical Med pantoprazole (ProtoNix) 40 MG EC tablet Take 40 mg by mouth., Starting 01/15/2023, Historical Med polyethylene glycol, PEG, 3350 (Glycolax) 17 GM/SCOOP powder Historical Med RisperDAL Consta 12.5 MG injection Inject 12.5 mg into the shoulder, thigh, or buttocks every 14 (fourteen) days., Historical Med risperiDONE (RisperDAL) 1 MG tablet Starting Tue04/29/2023, Historical Med traZODone (Desyrel) 150 MG tablet Take 150 mg by mouth., Historical Med !! - Potential duplicate medications found. Please discuss with provider. ALLERGIES Patient has no known allergies. FAMILY HISTORY No family history on file. SOCIAL HISTORY Social History Socioeconomic History Marital status: Single Tobacco Use Smoking status: Never Smokeless tobacco: Never Substance and Sexual Activity Alcohol use: Not Currently SCREENINGS PHYSICAL EXAM ED Triage Vitals [03/24/24 2111] Temp Heart Rate Resp BP 36.3 ?C (97.3 ?F) (!) 117 18 (!) 153/102 SpO2 Temp Source Heart Rate Source Patient Position 99 % Temporal Monitor Sitting BP Location FiO2 (%) Right arm -- Physical Exam Vitals and nursing note reviewed. HENT: Right Ear: There is impacted cerumen. Tympanic membrane is not perforated or erythematous. (more content not included)... Normal [facility] CNOVon 03-16-2024 CNOV Normal [facility] CNPNon 01-25-2024 CNPN Normal [facility] ANES POSTPROC EVALon 024 ANES POSTPROC EVAL Normal [facility] ANES PRE-OPon 01-24-2024 ANES PRE-OP Normal [facility] HCG QUALITATIVEon 01-24-2024 HCG, QUALITATIVE Negative Normal Negative [facility] Comment on above: Order Comment: Speci men Type: BLOOD SPECIMENOrdering Facility: [facility] Address: [address] [place] [address] Performed By: #### H CG ####[facility] LABORATORYCLIA [id number] [place] [address] [place] HISTORY PHYSICALon HISTORY PHYSICAL Normal [facility] NURSING PROGon 01-24-2024 NURSING PROG Normal [facility] NURSING PROG [facility] OPERATIVE NOon 01-24-2024 OPERATIVE NO [facility] ANES PREOPon 01-23-2024 ANES PREOP Normal [facility] CBC W Auto Differential pane l (Bld)on 01-20-2024 Basophils (Bld) [#/Vol] 0.03 10*3/uL Normal <0.11 [facility] Comment on above: Order Comment: Speci men Type: BLOOD SPECIMENOrdering Facility: [facility] Address: [address] [place] [address] Performed By: #### 5 7021-8 ####[facility] LABORATORYCLIA [id number] [place] [address] [place] Basophils/100 WBC (Bld) 0.4 % Normal [facility] Comment on above: Order Comment: Speci men Type: BLOOD SPECIMENOrdering Facility: [facility] Address: [address] [place] [address] Performed By: #### 5 7021-8 ####[facility] LABORATORYCLIA [id number] [place] [address] [place] Differential cell count method Nom (Bld) Auto Normal [facility] Comment on above: Order Comment: Speci men Type: BLOOD SPECIMENOrdering Facility: [facility] Address: [address] [place] [address] Performed By: #### 5 7021-8 ####[facility] LABORATORYCLIA [id number] [place] [address] [place] Eosinophils (Bld) [#/Vol] 0.16 10*3/uL Normal <0.46 [facility] Comment on above: Order Comment: Speci men Type: BLOOD SPECIMENOrdering Facility: [facility] Address: [address] [place] [address] Performed By: #### 5 7021-8 ####[facility] LABORATORYCLIA [id number] [place] [address] [place] Eosinophils/100 WBC (Bld) 2.3 % Normal [facility] Comment on above: Order Comment: Speci men Type: BLOOD SPECIMENOrdering Facility: [facility] Address: [address] [place] [address] Performed By: #### 5 7021-8 ####[facility] LABORATORYCLIA [id number] [place] [address] [place] Erythrocyte distribution width (RBC) [Ratio] 13.1 % Normal 11.5-15.0 [facility] Comment on above: Order Comment: Speci men Type: BLOOD SPECIMENOrdering Facility: [facility] Address: [address] [place] [address] Performed By: #### 5 7021-8 ####[facility] LABORATORYCLIA [id number] [place] [address] [place] Hematocrit (Bld) [Volume fraction] 42.0 % Normal 36.0-46.0 [facility] Comment on above: Order Comment: Speci men Type: BLOOD SPECIMENOrdering Facility: [facility] Address: [address] [place], [place] [address] Performed By: #### 5 7021-8 ####[facility] LABORATORYCLIA [id number] [place] [address] [place] Hemoglobin (Bld) [Mass/Vol] 14.4 g/dL Normal 11.5-15.5 [facility] Comment on above: Order Comment: Speci men Type: BLOOD SPECIMENOrdering Facility: [facility] Address: [address] [place] [address] Performed By: #### 5 7021-8 ####[facility] LABORATORYCLIA [id number] [place] [address] [place] Immature granulocytes (Bld) [#/Vol] 0.05 10*3/uL Normal <0.10 [facility] Comment on above: Order Comment: Speci men Type: BLOOD SPECIMENOrdering Facility: [facility] Address: [address] [place] [address] Performed By: #### 5 7021-8 ####[facility] LABORATORYCLIA [id number] [address] [place] Immature granulocytes/100 WBC (Bld) 0.7 % Normal [facility] Comment on above: Order Comment: Speci men Type: BLOOD SPECIMENOrdering Facility: [facility] Address: [address] [place] [address] Performed By: #### 5 7021-8 ####[facility] LABORATORYCLIA [id number] [place] [address] [place] Lymphocytes (Bld) [#/Vol] 2.58 10*3/uL Normal 1.00-4.00 [facility] Comment on above: Order Comment: Speci men Type: BLOOD SPECIMENOrdering Facility: [facility] Address: [address] [place] [address] Performed By: #### 5 7021-8 ####[facility] LABORATORYCLIA [id number] [place] [address] [place] Lymphocytes/100 WBC (Bld) 37.4 % Normal [facility] Comment on above: Order Comment: Speci men Type: BLOOD SPECIMENOrdering Facility: [facility] Address: [address] [place] [address] Performed By: #### 5 7021-8 ####[facility] LABORATORYCLIA [id number] [address] MCH (RBC) [Entitic mass] 31.4 pg Normal 26.0-34.0 [facility] Comment on above: Order Comment: Speci men Type: BLOOD SPECIMENOrdering Facility: [facility] Address: [address] [place] [address] Performed By: #### 5 7021-8 ####[facility] LABORATORYCLIA [id number] [address] [place] MCHC (RBC) [Mass/Vol] 34.3 g/dL Normal 30.5-36.0 [facility] Comment on above: Order Comment: Speci men Type: BLOOD SPECIMENOrdering Facility: [facility] Address: [address] [place] [place] [address] Performed By: #### 5 7021-8 ####[facility] LABORATORYCLIA [id number] [address] [facility] MCV (RBC) [Entitic vol] 91.7 fL Normal 80.0-100.0 [facility] Comment on above: Order Comment: Speci men Type: BLOOD SPECIMENOrdering Facility: [facility] Address: [address] [place] [address] Performed By: #### 5 7021-8 ####[facility] LABORATORYCLIA [id number] [address] [place] Monocytes (Bld) [#/Vol] 0.88 10*3/uL High <0.87 [facility] Comment on above: Order Comment: Speci men Type: BLOOD SPECIMENOrdering Facility: [facility] Address: [address] [place] [place] [address] Performed By: #### 5 7021-8 ####[facility] LABORATORYCLIA [id number] [address] Monocytes/100 WBC (Bld) 12.8 % Normal [facility] Comment on above: Order Comment: Speci men Type: BLOOD SPECIMENOrdering Facility: [facility] Address: [address] [place] [address] Performed By: #### 5 7021-8 ####[facility] LABORATORYCLIA [id number] [place] [address] [place] Neutrophils (Bld) [#/Vol] 3.20 10*3/uL Normal 1.45-7.50 [facility] Comment on above: Order Comment: Speci men Type: BLOOD SPECIMENOrdering Facility: [facility] Address: [address] [place] [address] Performed By: #### 5 7021-8 ####[facility] LABORATORYCLIA [id number] [address] [place] Neutrophils/100 WBC (Bld) 46.4 % Normal [facility] Comment on above: Order Comment: Speci men Type: BLOOD SPECIMENOrdering Facility: [facility] Address: [address] [place] [address] Performed By: #### 5 7021-8 ####[facility] LABORATORYCLIA [id number] [place] [address] [place] Nucleated RBC (Bld) [#/Vol] 10*3/uL Normal <0.01 [facility] Comment on above: Order Comment: Speci men Type: BLOOD SPECIMENOrdering Facility: [facility] Address: [address] [place] [address] Performed By: #### 5 7021-8 ####[facility] LABORATORYCLIA [id number] [place] [address] [place] Nucleated RBC/100 WBC (Bld) [Ratio] 0.0 /100 WBC Normal [facility] Comment on above: Order Comment: Speci men Type: BLOOD SPECIMENOrdering Facility: [facility] Address: [address] [place] [address] Performed By: #### 5 7021-8 ####[facility] LABORATORYCLIA [id number] [place] [address] [place] Platelet mean volume (Bld) [Entitic vol] 8.8 fL Low 9.0-12.7 [facility] Comment on above: Order Comment: Speci men Type: BLOOD SPECIMENOrdering Facility: [facility] Address: [address] [place] [address] Performed By: #### 5 7021-8 ####[facility] LABORATORYCLIA [id number] [place] [id number] [place] Platelets (Bld) [#/Vol] 112 10*3/uL Low 150-400 [facility] Comment on above: Order Comment: Speci men Type: BLOOD SPECIMENOrdering Facility: [facility] Address: [address] [place] [address] Performed By: #### 5 7021-8 ####[facility] LABORATORYCLIA [id number] [place] [address] [place] RBC (Bld) [#/Vol] 4.58 10*6/uL Normal 3.90-5.20 [facility] Comment on above: Order Comment: Speci men Type: BLOOD SPECIMENOrdering Facility: [facility] Address: [address] [place] [address] Performed By: #### 5 7021-8 ####[facility] LABORATORYCLIA [id number] [place] [id number] [place] WBC (Bld) [#/Vol] 6.90 10*3/uL Normal 3.70-11.00 [facility] Comment on above: Order Comment: Speci men Type: BLOOD SPECIMENOrdering Facility: [facility] Address: [address] [place] [address] Performed By: #### 5 7021-8 ####[facility] LABORATORYCLIA [id number] [place] [id number] [place] CONSULTon 01-20-2024 CONSULT Normal [facility] CT NECK SOFT TISSUE W IVCONo n 01-20-2024 CT NECK SOFT TISSUE W IVCON Normal [facility] Comprehensive metabolic 2000 panelon 01-20-2024 Albumin [Mass/Vol] 2.9 g/dL Low 3.2-5.0 [facility] Comment on above: Order Comment: Speci men Type: BLOOD SPECIMENOrdering Facility: [facility] Address: [address] [place] [address] Performed By: #### 2 4323-8 ####[facility] LABORATORYCLIA [id number] [place] [id number] [place] ALP [Catalytic activity/Vol] 86 U/L Normal 45-117 [facility] Comment on above: Order Comment: Speci men Type: BLOOD SPECIMENOrdering Facility: [facility] Address: [address] [place] [address] Performed By: #### 2 4323-8 ####[facility] LABORATORYCLIA [id number] [place] [address] [place] ALT [Catalytic activity/Vol] 22 U/L Normal 13-61 [facility] Comment on above: Order Comment: Speci men Type: BLOOD SPECIMENOrdering Facility: [facility] Address: [address] [place] [address] Result Comment: Resu lts may be falsely depressed after the administration of Sulfasalazine and/or Sulfapyridine. Performed By: #### 2 4323-8 ####[facility] LABORATORYCLIA [id number] [address] [place] Anion gap [Moles/Vol] 7 mmol/L Normal 5-16 [facility] Comment on above: Order Comment: Speci men Type: BLOOD SPECIMENOrdering Facility: [facility] Address: [address] [place] [address] Performed By: #### 2 4323-8 ####[facility] LABORATORYCLIA [id number] [place] [address] [place] AST [Catalytic activity/Vol] 20 U/L Normal 8-34 [facility] Comment on above: Order Comment: Speci men Type: BLOOD SPECIMENOrdering Facility: [facility] Address: [address] [place] [place] [address] Result Comment: Resu lts may be falsely depressed after the administration of Sulfasalazine and/or Sulfapyridine. Performed By: #### 2 4323-8 ####[facility] LABORATORYCLIA [id number] [place] [address] [place] Bilirubin [Mass/Vol] 1.0 mg/dL Normal 0.2-1.0 [facility] Comment on above: Order Comment: Speci men Type: BLOOD SPECIMENOrdering Facility: [facility] Address: [address] [place] [address] Performed By: #### 2 4323-8 ####[facility] LABORATORYCLIA [id number] [place] [address] [place] Calcium [Mass/Vol] 9.0 mg/dL Normal 8.5-10.5 [facility] Comment on above: Order Comment: Speci men Type: BLOOD SPECIMENOrdering Facility: [facility] Address: [address] [place] [address] Performed By: #### 2 4323-8 ####[facility] LABORATORYCLIA [id number] [place] [address] [place] Chloride [Moles/Vol] 110 mmol/L High 98-107 [facility] Comment on above: Order Comment: Speci men Type: BLOOD SPECIMENOrdering Facility: [facility] Address: [address] [place] [address] Performed By: #### 2 4323-8 ####[facility] LABORATORYCLIA [id number] [place] [address] [place] CO2 [Moles/Vol] 29 mmol/L Normal 21-32 [facility] Comment on above: Order Comment: Speci men Type: BLOOD SPECIMENOrdering Facility: [facility] Address: [address] [place] [address] Performed By: #### 2 4323-8 ####[facility] LABORATORYCLIA [id number] [place] [address] [place] Creatinine [Mass/Vol] 0.60 mg/dL Normal 0.51-0.95 [facility] Comment on above: Order Comment: Speci men Type: BLOOD SPECIMENOrdering Facility: [facility] Address: [address] [place] [address] Result Comment: Marilin ents receiving either N-Acetylcysteine (NAC) or Metamizole prior to venipuncture, may have falsely depressed results. Performed By: #### 2 4323-8 ####[facility] LABORATORYCLIA [id number] [place] [address] [place] Creatinine and Glomerular filtration rate.predicted panel (S/P/Bld) 112 mL/min/1.73m??? Normal >=60 [facility] Comment on above: Order Comment: Syd ramos Type: BLOOD SPECIMENOrdering Facility: [facility] Address: [address] [place] [address] Result Comment: Chrissy mated Glomerular Filtration Rate (eGFR) is calculated using the 2020 CKD-EPI creatinine equation. This equation utilizes serum creatinine, sex, and age as parameters. The creatinine assay has traceable calibration to isotope dilution-mass spectrometry. Refer to KDIGO guidelines for clinical interpretation. In patients with unstable renal function, e.g. those with acute kidney injury, the eGFR may not accurately reflect actual GFR. Performed By: #### 2 4323-8 ####[facility] LABORATORYCLIA [id number] [place] [address] [place] Glucose [Mass/Vol] 82 mg/dL Normal 70-100 [facility] Comment on above: Order Comment: Syd ramos Type: BLOOD SPECIMENOrdering Facility: [facility] Address: [address] [place] [address] Result Comment: The [place] [employer] (ADA) provides guidance for cutoff values for fasting glucose and random glucose. The ADA defines fasting as no caloric intake for at least 8 hours. Fasting plasma glucose results between 100 to 125 mg/dL indicate increased risk for diabetes (prediabetes).Fasting plasma glucose results greater than or equal to 126 mg/dL meet the criteria for diagnosis of diabetes. In the absence of unequivocal hyperglycemia, results should be confirmed by repeat testing. In a patient with classic symptoms of hyperglycemia or hyperglycemic crisis, random plasma glucose results greater than or equal to 200 mg/dL meet the criteria for diagnosis of diabetes.Reference: Standards of Medical Care in Diabetes 2016, [place] [employer]. Diabetes Care. 2016.39(Suppl 1).Results may be falsely elevated after the administration of Sulfapyridine.Results may be falsely depressed after the administration of Sulfasalazine. Performed By: #### 2 4323-8 ####[facility] LABORATORYCLIA [id number] [place] [address] [place] Potassium [Moles/Vol] 3.1 mmol/L Low 3.5-5.1 [facility] Comment on above: Order Comment: Speci men Type: BLOOD SPECIMENOrdering Facility: [facility] Address: [address] [place] [place] [address] Performed By: #### 2 4323-8 ####[facility] LABORATORYCLIA [id number] [place] [address] [place] Protein [Mass/Vol] 6.1 g/dL Normal 6.0-8.5 [facility] Comment on above: Order Comment: Speci men Type: BLOOD SPECIMENOrdering Facility: [facility] Address: [address] [place] [address] Performed By: #### 2 4323-8 ####[facility] LABORATORYCLIA [id number] [place] [address] [place] Sodium [Moles/Vol] 146 mmol/L High 136-145 [facility] Comment on above: Order Comment: Speci men Type: BLOOD SPECIMENOrdering Facility: [facility] Address: [address] [place] [address] Performed By: #### 2 4323-8 ####[facility] LABORATORYCLIA [id number] [place] [address] [place] Urea nitrogen [Mass/Vol] 10 mg/dL Normal 7-26 [facility] Comment on above: Order Comment: Speci men Type: BLOOD SPECIMENOrdering Facility: [facility] Address: [address] [place] [address] Performed By: #### 2 4323-8 ####[facility] LABORATORYCLIA [id number] [address] [place] ED NOTEon 01-20-2024 ED NOTE HNO ID: [id number] Author: YASMIN TONY RN Service: ? Author Type: Registered Nurse Type: ED Notes Filed: 01/20/2024 10:22 Note Text: Pt has a tooth abscess and was referred here due to not being able to get dental care done in dental office. Normal [facility] ED PROV NOTEon 01-20-2024 ED PROV NOTE Normal [facility] HCG QUALITATIVEon 01-20-2024 HCG, QUALITATIVE Negative Normal Negative [facility] Comment on above: Order Comment: Speci men Type: BLOOD SPECIMENOrdering Facility: [facility] Address: [address] [place] [address] Performed By: #### H CLIF, 11080-0 ####[facility] LABORATORYCLIA [id number] [address] [place] Procalcitonin SerPl-mCncon 0 01-20-2024 Procalcitonin [Mass/Vol] ng/mL Normal 0.00-0.50 [facility] Comment on above: Order Comment: Speci men Type: BLOOD SPECIMENOrdering Facility: [facility] Address: [address] [place] [address] Result Comment: PCT Concentration InterpretationPCT <=0.1 ng/mL:Normal range for healthy adultsPCT >0.1 ng/mL and <0.5 ng/mL:Systemic infection (sepsis) is possible and may require antibiotic treatment, but other conditions are known to elevate PCT as well.PCT >0.5 ng/mL:Should be considered at risk for developing severe sepsis or septic shock.PCT >2.0 ng/mL:Important systemic inflammatory response. Almost exclusively indicates episode of severe bacterial sepsis or septic shock. Performed By: #### H CLIF, 35864-4 ####[facility] LABORATORYCLIA [id number] [place] [id number] [place] CNOVon 01-17-2024 CNOV Normal [facility] ED Provider Noteon ED Provider Note EMERGENCY DEPARTMENT ENCOUNTER Pt Name: Sharla Joiner Birthdate 1975 Date of evaluation: 12/23/2023 ED Provider: Marcella Ryan PA-C CHIEF COMPLAINT Chief Complaint Patient presents with Earache Left ear pain HISTORY OF PRESENT ILLNESS (Location/Symptom, Timing/Onset, Context/Setting, Quality, Duration, Modifying Factors, Severity) Note limiting factors. I wore appropriate PPE for the entirety of this encounter. HPI Sharla Joiner is a 48 y.o. female with PMH significant for tardive dyskinesia, bipolar 1, autism, Parkinson's, and aggressive behavior who presents to the emergency department with a personal-care tach from [employer], for evaluation of left ear irritation with concern for possible ear infection. According to the tech, the patient has been itching and messing with her left ear for 1 day. She has a history of eczema on the bilateral external ears, that has been well-managed with hydrocortisone cream and Aquaphor. States that she was more irritable than usual this morning and complaining of discomfort in the left ear, so they wanted to bring her in for further evaluation to make sure that she did not have an ear infection. States that she did not take her morning medications this morning and was irritable and aggressive with the staffat the facility. . Spoke with patient's legal guardian Shirley Joiner via telephone at 11:54 and was given consent to treat. She states that the patient does have a history of inner ear infections, but states that she has not had one recently, and has more so been dealing with the dermatitis on the external ear that is thought to be eczema and has been well managed. Denies any other associated or recent sick symptoms. States the patient has otherwise been in her usual state of health. No additional concerns at this time. Nursing Notes were reviewed. Limitations to history: None Outside historians: None REVIEW OF SYSTEMS Review of Systems 12 systems reviewed, positives and pertinent negatives as per HPI. All other systems were reviewed and are negative. PAST MEDICAL HISTORY Past Medical History: Diagnosis Date Aggressive behavior Autistic disorder, residual state Bipolar 1 disorder (HCC) Impulse control disease Memory impairment Parkinson's disease (HCC) Scoliosis Tardive dyskinesia SURGICAL HISTORY History reviewed. No pertinent surgical history. CURRENT MEDICATIONS Discharge Medication List as of 12/23/2023 12:09 PM CONTINUE these medications which have NOT CHANGED Details acetaminophen (Tylenol) 325 MG tablet Take 325 mg by mouth., Historical Med amantadine (Symmetrel) 100 MG capsule TAKE 1 CAP BY MOUTH TWICE A DAY, Historical Med carbidopa-levodopa (Sinemet) 25-100 MG tablet Take by mouth., Starting Tue08/23/2022, Historical Med cephalexin (Keflex) 500 MG capsule TAKE 1 CAPSULE BY MOUTH EVERY 12 HOURS FOR 7 DAYS, Historical Med !! cholecalciferol (Vitamin D-3) 50 MCG (1999 UT) capsule Take 2,000 Units by mouth daily., Starting 11/26/2023, Historical Med !! cholecalciferol (Vitamin D-3) 50 MCG (2000 UT) capsule 2,000 Units., Historical Med divalproex (Depakote ER) 500 MG 24 hr tablet Starting Tia 02/10/2023, Historical Med divalproex (Depakote) 500 MG EC tablet Take 1 tablet by mouth 2 times daily., Historical Med divalproex sprinkle (Depakote Sprinkle) [address] capsule Starting Tia 02/10/2023, Historical Med Docusate Sodium (DSS) 100 MG capsule Historical Med fludrocortisone (Florinef) 0.1 MG tablet TAKE 2 TABLETS BY MOUTH AT 8 AM AND 8 PM, Historical Med loperamide (Imodium) 2 MG capsule Take 2 mg by mouth 3 times daily as needed., Historical Med LORazepam (Ativan) 2 MG tablet Take 1 tablet by mouth every morning., Historical Med melatonin 5 MG tablet 5 mg., Starting Tue04/29/2023, Historical Med midodrine (Proamatine) 5 MG tablet Take 10 mg by mouth., Starting 01/15/2023, Historical Med montelukast (Singulair) 10 MG tablet Take 1 tablet by mouth daily., Starting Tue08/23/2022, Historical Med Multiple Vitamin (Tab-A-Kenneth/Beta Carotene) tablet Historical Med pantoprazole (ProtoNix) 40 MG EC tablet Take 40 mg by mouth., Starting 01/15/2023, Historical Med polyethylene glycol, PEG, 3350 (Glycolax) 17 GM/SCOOP powder Historical Med RisperDAL Consta 12.5 MG injection Inject 12.5 mg into the shoulder, thigh, or buttocks every 14 (fourteen) days., Historical Med risperiDONE (RisperDAL) 1 MG tablet Starting Tue04/29/2023, Historical Med traZODone (Desyrel) 150 MG tablet Take 150 mg by mouth., Historical Med !! - Potential duplicate medications found. Please discuss with provider. ALLERGIES Patient has no known allergies. FAMILY HISTORY No family history on file. SOCIAL HISTORY Social History Socioeconomic History Marital status: Single Tobacco Use Smoking status: Never Smokeless tobacco: Never Substance and Sexual Act (more content not included)... Normal [facility] Progress Noteon 12-02-2023 Progress Note A 48-year-old female is brought in by caregiver with complaints of behavioral disturbances over the last 1 to 2 days. Caregiver states that patient does have a history of UTIs. Patient does have a history of autism. Unfortunately we are unable to get a urine sample due to patient's and cooperation is not cooperative. Due to this, patient will need further evaluation in the ER with possibility of straight cath to obtain sample. Caregiver states understanding is agreeable to take her to the emergency room.This encounter was created in error - please disregard. Normal [facility] URINALYSIS, DIPSTICK ONLYOrd ered By: Jerri Novak on 11-24-2023 Bilirubin Ql (U) Negative Negative [facility] Clarity (Unsp spec) Clear Clear [facility] Color (U) Yellow Yellow [facility] Glucose Test strip (U) [Mass/Vol] Negative Negative [facility] Hemoglobin Ql (U) 2+ Abnormal Negative [facility] Interpretation and review of laboratory results Abnormal [facility] Ketones Ql (U) 1+ Abnormal Negative [facility] Leukocyte esterase Test strip Ql (U) Negative Negative [facility] Nitrite Ql (U) Negative Negative [facility] pH (U) 6.0 [pH] 5.0 - 8.0 [facility] Protein (U) [Mass/Vol] Negative Negative [facility] Specific gravity (U) [Rel density] 1.030 1.005 - 1.030 [facility] Urobilinogen Ql (U) 1+ Abnormal Negative [facility] CT HEAD WO IV CONTRASTon CT HEAD WO IV CONTRAST Patient Name: SHARLA JOINER : 1975 Exam Date/Time: 08/11/2023 18:55 Procedure: CT HEAD WO IV CONTRAST Ordering Provider: RIVAS JAKLYN Reason For Exam: s/p fall. headstrike CT head without contrast History: Fall, pain Protocol: 3 mm axial images without IV contrast Dose reduction was employed with automated exposure control. There is no evidence of intracranial hemorrhage, extra-axial fluid collection, hydrocephalus, or acute infarct. No evidence of a mass of mass affect. The visualized portions of the paranasal sinuses and the mastoid air cells are clear. IMPRESSION: No acute findings. Report Dictated on Electronically Signed By: Liban Robertson MD Electronically Signed Date/Time: 08/11/2023 6:56 PM EST Pt was found face first on the ground, she fell out of a van. Pt states she has no periods Normal [facility] CT Head WO contraston 2023 No acute findings. Report Dictated on Electronically Signed By: Liban Robertson MD Electronically Signed Date/Time: 08/11/2023 6:56 PM EST [facility] [place] [employer] Patient Name: SHARLA JOINER : 1975 Exam Date/Time: 08/11/2023 18:55 Procedure: CT HEAD WO IV CONTRAST Ordering Provider: RIVAS JAKLYN Reason For Exam: s/p fall. headstrike CT head without contrast History: Fall, pain Protocol: 3 mm axial images without IV contrast Dose reduction was employed with automated exposure control. There is no evidence of intracranial hemorrhage, extra-axial fluid collection, hydrocephalus, or acute infarct. No evidence of a mass of mass affect. The visualized portions of the paranasal sinuses and the mastoid air cells are clear. [facility] Liban Robertson MD - 08/11/2023 Patient Name: SHARLA JOINRE : 1975 Exam Date/Time: 08/11/2023 18:55 Procedure: CT HEAD WO IV CONTRAST Ordering Provider: RIVAS JAKLYN Reason For Exam: s/p fall. headstrike CT head without contrast History: Fall, pain Protocol: 3 mm axial images without IV contrast Dose reduction was employed with automated exposure control. There is no evidence of intracranial hemorrhage, extra-axial fluid collection, hydrocephalus, or acute infarct. No evidence of a mass of mass affect. The visualized portions of the paranasal sinuses and the mastoid air cells are clear. IMPRESSION: No acute findings. Report Dictated on Electronically Signed By: Liban Robertson MD Electronically Signed Date/Time: 08/11/2023 6:56 PM EST [facility] Radiology Study observation (narrative) [facility] CT Head WO contrastOrdered B y: Liban Robertson on 08-11-2023 [facility] Work Phone: ED Nursing Noteon 08-11-2023 ED Nursing Note Pt presents to the e r with her caregiver , caregiver states she fell today and hit the front of her head, pt denies any LOC , pt denies pain Normal [facility] ED Provider Noteon ED Provider Note EMERGENCY DEPARTMENT ENCOUNTER Pt Name: Sharla Joiner Birthdate 1975 Date of evaluation: 08/11/2023 ED Provider: Johnathon Rivas DO CHIEF COMPLAINT Chief Complaint Patient presents with Head Injury HISTORY OF PRESENT ILLNESS (Location/Symptom, Timing/Onset, Context/Setting, Quality, Duration, Modifying Factors, Severity) Note limiting factors. I wore appropriate PPE for the entirety of this encounter. HPI Sharla Joiner is a 48 y.o. female with past medical history of MRDD who presents to the emergency department with chief complaint of fall. Patient was getting out of the van at the shelter and stepped wrong and fell onto the right side of her head. Reports occurred immediately prior to arrival. Caregiver present and states that initially she that she was having a headache however that has since resolved. Patient reports some right forehead pain now. Denies paresthesias, weakness, blurry vision. Nursing Notes were reviewed. Limitations to history: MRDD Outside historians: Caregiver REVIEW OF SYSTEMS 14 systems reviewed and otherwise acutely negative except as in the [place] PAST MEDICAL HISTORY Past Medical History: Diagnosis Date Aggressive behavior Autistic disorder, residual state Bipolar 1 disorder (HCC) Impulse control disease Memory impairment Parkinson's disease Scoliosis Tardive dyskinesia SURGICAL HISTORY No past surgical history on file. CURRENT MEDICATIONS Previous Medications DIVALPROEX (DEPAKOTE ER) 500 MG 24 HR TABLET DIVALPROEX SPRINKLE (DEPAKOTE SPRINKLE) [address] CAPSULE LORAZEPAM (ATIVAN) 1 MG TABLET MIDODRINE (PROAMATINE) 5 MG TABLET Take 10 mg by mouth. PANTOPRAZOLE (PROTONIX) 40 MG EC TABLET Take 40 mg by mouth. RISPERIDONE (RISPERDAL) 1 MG TABLET ALLERGIES Patient has no known allergies. FAMILY HISTORY No family history on file. SOCIAL HISTORY Social History Socioeconomic History Marital status: Single Tobacco Use Smoking status: Never Smokeless tobacco: Never Substance and Sexual Activity Alcohol use: Not Currently SCREENINGS PHYSICAL EXAM ED Triage Vitals [08/11/23 1746] Temp Heart Rate Resp BP 36.8 ?C (98.2 ?F) 71 18 134/85 SpO2 Temp Source Heart Rate Source Patient Position 97 % Temporal Monitor -- BP Location FiO2 (%) -- -- Constitutional alert, in NAD, Head- normocephalic, atraumatic, no cephalohematoma or lacerations Eyes- PERRL, pupils 3 -->2 mm b/l, EOMI, no signs of trauma Nose- no blood in nares bilaterally, no fluid drainage, no septal hematoma Face- midface stable and nontender Mouth- oropharynx clear, no fractured/loose teeth, no dental malocculsion Neck- trachea midline with no masses, no anterior crepitance on exam, C-spine nontender and no stepoffs Back- no stepoffs, nontender, no abrasions CV- RRR, no murmurs Chest- nontender, no crepitance, lungs CTA bilaterally Abdomen- soft, nontender, nondistended Pelvis- stable to compression and nontender Extremities- atraumatic, nontender at all joints, FROM to passive manipulation Neuro- MAEx4 spontaneously, strength and sensation grossly intact, Skin Lacerations, neg. Abrasions, neg DIAGNOSTIC RESULTS RADIOLOGY (Per Emergency Physician): Interpretation per the Radiologist below, if available at the time of this note: CT head wo IV contrast (Results Pending) LABS: Labs Reviewed - No data to display All other labs were within normal range or not returned as of this dictation. EMERGENCY DEPARTMENT COURSE and DIFFERENTIAL DIAGNOSIS/MDM: Vitals: Vitals: 08/11/23 1746 08/11/23 1751 BP: 134/85 Pulse: 71 Resp: 18 Temp: 36.8 ?C (98.2 ?F) TempSrc: Temporal SpO2: 97% Weight: 60.2 kg (132 lb 12.8 oz) Diagnoses as of 08/11/23 1847 Head injury, initial encounter Upon arrival to the ED, patient afebrile, hemodynamically stable and saturating well on room air. patient is neurologically intact, however given history of MRDD, will obtain CT head. Patient signed out pending CT head. External records reviewed: Outpatient notes Per chart review, patient was seen 05/28/2023 for UTI by primary care physician Diagnostics interpreted by me: none Discussions with other clinicians: none Chronic conditions impacting care: Past Medical History: Diagnosis Date Aggressive behavior Autistic disorder, residual state Bipolar 1 disorder (HCC) Impulse control disease Memory impairment Parkinson's disease Scoliosis Tardive dyskinesia Social determinants of health affecting care: none ED Medications managed: Medications acetaminophen (Tylenol) tablet 650 mg (650 mg Oral Given 08/11/231818) FINAL IMPRESSION 1. Head injury, initial encounter DISPOSITION PATIENT REFERRED TO: No follow-up provider specified. DISCHARGE MEDICATIONS: New Prescriptions No medications on file Dispo pending CT head (Comment: Please note this report has been produced using speech recognition (more content not included)... Normal [facility] CT HEAD OR BRAIN W/O CONTRAS Ton 05-28-2023 CT HEAD OR BRAIN W/O CONTRAST ORIGINAL EXAMINATION: CT OF THE HEAD WITHOUT [id number]/11/2023 3:[address] HEAD OR BRAIN W/O CONTRAST TECHNIQUE: RADIATION DOSE REDUCTION: This exam was performed according to the departmental dose-optimization program which includes automated exposure control, adjustment of the mA and/or kV according to patient size and/or use of iterative reconstruction technique. COMPARISON: CT 08/24/2022 HISTORY: ORDERING SYSTEM PROVIDED HISTORY: Reason for Exam: PATE, PT HAD FALL, CLOSED HEAD INJURY W/OUT LOC, HEMATOMA ON LEFT TEMPORAL/PARITIAL AREA, NO NEURO HX, REPEATS DONE DUE TO PT MOTION headache, FINDINGS: There is some degradation of the images from patient motion artifacts. Some of the images are repeated. There is no recent parenchymal or extra axial intracranial hemorrhage, mass effect or midline shift. No obvious acute territorial infarct. No hydrocephalus. No displaced or depressed calvarial fracture is seen. The density in the superior sagittal sinus is normal. There is no large extracranial hematoma. There is probably some asymmetric left temporoparietal region extracranial soft tissue swelling from trauma. The visualized paranasal sinuses and mastoids are clear. Orbital contents are symmetric. IMPRESSION: No intracranial acute posttraumatic abnormality. . Interpreted by: Cornell Yanez MD Preliminary Report By: Cornell Yanez MD Electronically signed By Cornell Yanez MD Dictated Date: 05/28/2023 3:31:58 PM Prelim Date: 05/28/2023 3:34:15 PM Sign Date: 05/28/2023 3:34:15 PM Ordering Provider: [place] [facility] ([place] LABORATORYOrdered By: William Rojas on 05-28-2023 Appearance (U) Clear (05/28/23 1:42 PM) Invalid Interpretation Code Clear AH Auto Urine SS Bilirubin Ql (U) Negative (05/28/23 1:42 PM) Invalid Interpretation Code Neg-Trace AH Auto Urine SS Color (U) Yellow (05/28/23 1:42 PM) Invalid Interpretation Code AH Auto Urine SS Glucose Test strip (U) [Mass/Vol] Negative Invalid Interpretation Code Negative AH Auto Urine SS Hemoglobin Auto test strip (U) [Mass/Vol] Negative (05/28/23 1:42 PM) Invalid Interpretation Code Neg-Trace AH Auto Urine SS Ketones Ql (U) Trace mg/dL Invalid Interpretation Code Neg-Trace AH Auto Urine SS UA Leuk Est Trace *NA* (05/28/23 1:42 PM) Invalid Interpretation Code Negative AH Auto Urine SS UA Nitrite Negative (05/28/23 1:42 PM) Invalid Interpretation Code Negative AH Auto Urine SS UA pH 8.0 (05/28/23 1:42 PM) Invalid Interpretation Code 5.0 - 8.0 AH Auto Urine SS UA Protein Negative Invalid Interpretation Code Negative AH Auto Urine SS UA Spec Grav 1.015 (05/28/23 1:42 PM) Invalid Interpretation Code 1.006-1.02 9 AH Auto Urine SS UA Specimen Type Clean Catch (05/28/23 1:42 PM) Invalid Interpretation Code AH Auto Urine SS UA Urobilinogen 2.0 E.U./dL Invalid Interpretation Code 0.2-1.0 AH Auto Urine SS LABORATORYOrdered By: Phuong Clark on 05-28-2023 Bacteria LM.HPF (Urine sed) [#/Area] Trace /HPF Invalid Interpretation Code Negative AH Auto Urine SS UA Mucous 1+ /HPF Invalid Interpretation Code AH Auto Urine SS UA RBC 5-10 /HPF Invalid Interpretation Code 0-2 AH Auto Urine SS UA Squam Epithelial 0-2 /HPF Invalid Interpretation Code 0-20 AH Auto Urine SS UA Transitional Epithelial Rare /HPF Invalid Interpretation Code AH Auto Urine SS WBC LM.HPF (Urine sed) [#/Area] 5-10 /HPF Invalid Interpretation Code 0-5 AH Auto Urine SS UAon 05-28-2023 Color (U) Yellow Normal [facility] Comment on above: Performed By: #### U AMIC, UA #### [place] [id number] Glucose (U) [Mass/Vol] Negative Normal Negative [facility] [place] Comment on above: Performed By: #### U AMIC, UA #### [place] [address] Ketones Ql (U) Trace Normal Neg-Trace [facility] Comment on above: Performed By: #### U AMIC, UA #### [place] [address] UA Appear Clear Normal Clear [facility] Comment on above: Performed By: #### U AMIC, UA #### [place] [address] UA Blood Negative Normal Neg-Trace [facility] [place] Comment on above: Performed By: #### U AMIC, UA #### [address] [address] UA Leuk Est Trace Normal Negative [facility] [place] Comment on above: Performed By: #### U AMIC, UA #### [address] [address] UA Nitrite Negative Normal Negative [facility] [place] Comment on above: Performed By: #### U AMIC, UA #### [place] [address] UA pH 8.0 Normal 5.0 - 8.0 [facility] Comment on above: Performed By: #### U AMIC, UA #### [place] [address] UA Protein Negative Normal Negative [facility] [place] Comment on above: Performed By: #### U AMIC, UA #### [place] [address] UA Spec Grav 1.015 Normal 1.006-1.02 9 [facility] [place] Comment on above: Performed By: #### U AMIC, UA #### [place] [address] UA Specimen Type Clean Catch Normal [facility] [place] Comment on above: Performed By: #### U AMIC, UA #### [place] [address] UA Urobilinogen 2.0 E.U./dL Abnormal 0.2-1.0 [facility] [place] Comment on above: Performed By: #### U AMIC, UA #### [place] [address] Urobilinogen (U) [Mass/Vol] Negative Normal Neg-Trace [facility] [place] Comment on above: Performed By: #### U AMIC, UA #### [place] [address] UAMICon 05-28-2023 UA Bacteria Trace Abnormal Negative [facility] Comment on above: Performed By: #### U AMIC, UA #### [place] [address] UA Mucous 1+ /hpf Normal [facility] [place] Comment on above: Performed By: #### U AMIC, UA #### [place] [address] UA RBC 5-10 Abnormal 0-2 [facility] [place] Comment on above: Performed By: #### U AMIC, UA #### [place] [address] UA Squam Epithelial 0-2 Normal 0-20 [facility] ([place] Comment on above: Performed By: #### U AMIC, UA #### [facility] [address] [place] [id number] UA Transitional Epithelial Rare Normal [facility] [place] Comment on above: Performed By: #### U AMIC, UA #### [facility] [address] [place] [id number] UA WBC 5-10 Abnormal 0-5 [facility] Comment on above: Performed By: #### U AMIC, UA #### [facility] [address] [place] [id number] XR ESOPHAGRAMon 04-07-2023 XR ESOPHAGRAM * * *Final Report* * * DATE OF EXAM: Apr 07 2023 10:22AM AWX [id number] - XR ESOPHAGRAM / PROCEDURE REASON: r13.10 * * * * Physician Interpretation * * * * EXAM TITLE: XR ESOPHAGRAM DATE: 04/07/2023 11:07 AM INDICATION: Dysphagia COMPARISON: None. FINDINGS: Fluoroscopy was performed by the radiology physician's office clerk assistant. 47 seconds of fluoroscopy time was used. 66 images were obtained. The patient swallowed barium without difficulty. The esophagus demonstrates normal contour and motility. A 13 mm barium tablet passed easily through the esophagus. IMPRESSION: Within normal limits. Bilingual Manager: GERONIMO Transcribe Date/Time: Apr 07 2023 11:07A Dictated by : POWER MANSFIELD MD This examination was interpreted and the report reviewed and electronically signed by: POWER MANSFIELD MD on Apr 07 2023 11:08AM EST [id number] Normal [facility] LABORATORYOrdered By: SYSTEM SYSTEM on 01-14-2023 Cortisol [Mass/Vol] 9.1 ug/dL Invalid Interpretation Code AH ADM SS TSH Qn 0.815 mIU/mL Invalid Interpretation Code 0.550 - 4.780 mIU/mL AH ADM SS Albumin BCP dye [Mass/Vol] 3.0 G/dL Invalid Interpretation Code 3.2 - 4.8 G/dL ADM SS Albumin/Globulin [Mass ratio] 1.2 {ratio} Invalid Interpretation Code 0.9 - 1.6 ratio AH ADM SS ALP [Catalytic activity/Vol] 51 U/L Invalid Interpretation Code 38 - 126 U/L ADM SS ALT No additional P-5'-P [Catalytic activity/Vol] 19 U/L Invalid Interpretation Code 10 - 49 U/L ADM SS AST [Catalytic activity/Vol] 16 U/L Invalid Interpretation Code 8 - 34 U/L ADM SS Basophils (Bld) [#/Vol] 0.0 103/mcL Invalid Interpretation Code 0.0 - 0.3 10^3/mcL AH Workflow SS Basophils/100 WBC (Bld) 0.4 % Invalid Interpretation Code 0.0 - 2.5 % Workflow SS Bilirubin [Mass/Vol] 0.80 mg/dL Invalid Interpretation Code 0.20 - 1.20 mg/dL ADM SS Calcium [Mass/Vol] 8.7 mg/dL Invalid Interpretation Code 8.7 - 10.4 mg/dL ADM SS Chloride [Moles/Vol] 110 mmol/L Invalid Interpretation Code 98 - 110 mEq/L ADM SS CO2 [Moles/Vol] 29 mmol/L Invalid Interpretation Code 22 - 32 mEq/L ADM SS Creatinine [Mass/Vol] 0.57 mg/dL Invalid Interpretation Code 0.50 - 1.20 mg/dL ADM SS Electrolyte Balance 6.0 mEq/L Invalid Interpretation Code 4.0 - 15.0 mEq/L ADM SS Eosinophils (Bld) [#/Vol] 0.2 103/mcL Invalid Interpretation Code 0.0 - 0.7 10^3/mcL AH Workflow SS Eosinophils/100 WBC (Bld) 3.3 % Invalid Interpretation Code 0.0 - 6.0 % Workflow SS Erythrocyte distribution width (RBC) [Ratio] 13.6 % Invalid Interpretation Code 11.5 - 15.5 % Workflow SS GFR/1.73 sq M.predicted among blacks MDRD (S/P/Bld) [Vol rate/Area] ml/min/1.73sqm Invalid Interpretation Code Chemistry S GFR/1.73 sq M.predicted among non-blacks MDRD (S/P/Bld) [Vol rate/Area] ml/min/1.73sqm Invalid Interpretation Code Chemistry S Globulin 2.5 G/dL Invalid Interpretation Code 1.5 - 3.8 G/dL ADM SS Glucose [Mass/Vol] 81 mg/dL Invalid Interpretation Code 70 - 110 mg/dL AH ADM SS Hematocrit (Bld) [Volume fraction] 37.3 % Invalid Interpretation Code 34.0 - 46.0 % AH Workflow SS Hemoglobin (Bld) [Mass/Vol] 12.6 G/dL Invalid Interpretation Code 12.0 - 16.0 G/dL AH Workflow SS Lymphocytes (Bld) [#/Vol] 2.9 103/mcL Invalid Interpretation Code 0.9 - 4.3 10^3/mcL AH Workflow SS Lymphocytes/100 WBC (Bld) 39.9 % Invalid Interpretation Code 20.0 - 40.0 % AH Workflow SS Magnesium [Mass/Vol] 2.1 mg/dL Invalid Interpretation Code 1.6 - 2.4 mg/dL AH ADM SS MCH (RBC) [Entitic mass] 31.7 pg Invalid Interpretation Code 27.0 - 33.0 pg AH Workflow SS MCHC 33.7 G/dL Invalid Interpretation Code 32.0 - 36.0 G/dL AH Workflow SS MCV (RBC) [Entitic vol] 94.0 fL Invalid Interpretation Code 80.0 - 99.0 fL AH Workflow SS Monocytes (Bld) [#/Vol] 0.5 103/mcL Invalid Interpretation Code 0.1 - 1.4 10^3/mcL AH Workflow SS Monocytes/100 WBC (Bld) 7.5 % Invalid Interpretation Code 2.0 - 13.0 % AH Workflow SS Neutrophils (Bld) [#/Vol] 3.5 103/mcL Invalid Interpretation Code 2.3 - 8.1 10^3/mcL AH Workflow SS Neutrophils/100 WBC (Bld) 48.9 % Invalid Interpretation Code 50.0 - 75.0 % AH Workflow SS Platelet mean volume (Bld) [Entitic vol] 7.8 fL Invalid Interpretation Code 6.6 - 10.5 fL AH Workflow SS Platelets (Bld) [#/Vol] 188 103/mcL Invalid Interpretation Code 150 - 450 10^3/mcL AH Workflow SS Potassium [Moles/Vol] 3.9 mmol/L Invalid Interpretation Code 3.5 - 5.0 mEq/L ADM SS Protein [Mass/Vol] 5.5 G/dL Invalid Interpretation Code 5.7 - 8.2 G/dL ADM SS RBC (Bld) [#/Vol] 3.97 106/mcL Invalid Interpretation Code 4.10 - 5.30 10^6/mcL AH Workflow SS Sodium [Moles/Vol] 145 mmol/L Invalid Interpretation Code 136 - 145 mEq/L ADM SS Urea nitrogen [Mass/Vol] 12.0 mg/dL Invalid Interpretation Code 8.0 - 22.0 mg/dL ADM SS Urea nitrogen/Creatinine [Mass ratio] 21.1 ratio Invalid Interpretation Code 10.0 - 22.0 ratio ADM SS WBC (Bld) [#/Vol] 7.2 103/mcL Invalid Interpretation Code 4.5 - 10.8 10^3/mcL Workflow SS LABORATORYOrdered By: SYSTEM SYSTEM on 01-13-2023 Troponin I.cardiac DL <= 0.01 ng/mL [Mass/Vol] ng/L Invalid Interpretation Code 0.00 - 34.00 ng/L ADM SS Basophils (Bld) [#/Vol] 0.0 103/mcL Invalid Interpretation Code 0.0 - 0.3 10^3/mcL Workflow SS Basophils/100 WBC (Bld) 0.7 % Invalid Interpretation Code 0.0 - 2.5 % Workflow SS Calcium [Mass/Vol] 8.5 mg/dL Invalid Interpretation Code 8.7 - 10.4 mg/dL ADM SS Chloride [Moles/Vol] 110 mmol/L Invalid Interpretation Code 98 - 110 mEq/L ADM SS CO2 [Moles/Vol] 26 mmol/L Invalid Interpretation Code 22 - 32 mEq/L ADM SS Creatinine [Mass/Vol] 0.62 mg/dL Invalid Interpretation Code 0.50 - 1.20 mg/dL ADM SS Electrolyte Balance 7.0 mEq/L Invalid Interpretation Code 4.0 - 15.0 mEq/L ADM SS Eosinophils (Bld) [#/Vol] 0.2 103/mcL Invalid Interpretation Code 0.0 - 0.7 10^3/mcL Workflow SS Eosinophils/100 WBC (Bld) 3.8 % Invalid Interpretation Code 0.0 - 6.0 % Workflow SS Erythrocyte distribution width (RBC) [Ratio] 13.5 % Invalid Interpretation Code 11.5 - 15.5 % Workflow SS GFR/1.73 sq M.predicted among blacks MDRD (S/P/Bld) [Vol rate/Area] ml/min/1.73sqm Invalid Interpretation Code Chemistry S GFR/1.73 sq M.predicted among non-blacks MDRD (S/P/Bld) [Vol rate/Area] ml/min/1.73sqm Invalid Interpretation Code Chemistry S Glucose [Mass/Vol] 83 mg/dL Invalid Interpretation Code 70 - 110 mg/dL ADM SS Hematocrit (Bld) [Volume fraction] 37.7 % Invalid Interpretation Code 34.0 - 46.0 % AH Workflow SS Hemoglobin (Bld) [Mass/Vol] 12.7 G/dL Invalid Interpretation Code 12.0 - 16.0 G/dL AH Workflow SS Lymphocytes (Bld) [#/Vol] 2.7 103/mcL Invalid Interpretation Code 0.9 - 4.3 10^3/mcL AH Workflow SS Lymphocytes/100 WBC (Bld) 47.3 % Invalid Interpretation Code 20.0 - 40.0 % Workflow SS MCH (RBC) [Entitic mass] 31.6 pg Invalid Interpretation Code 27.0 - 33.0 pg AH Workflow SS MCHC 33.7 G/dL Invalid Interpretation Code 32.0 - 36.0 G/dL AH Workflow SS MCV (RBC) [Entitic vol] 94.0 fL Invalid Interpretation Code 80.0 - 99.0 fL Workflow SS Monocytes (Bld) [#/Vol] 0.6 103/mcL Invalid Interpretation Code 0.1 - 1.4 10^3/mcL Workflow SS Monocytes/100 WBC (Bld) 10.7 % Invalid Interpretation Code 2.0 - 13.0 % Workflow SS Neutrophils (Bld) [#/Vol] 2.2 103/mcL Invalid Interpretation Code 2.3 - 8.1 10^3/mcL AH Workflow SS Neutrophils/100 WBC (Bld) 37.5 % Invalid Interpretation Code 50.0 - 75.0 % AH Workflow SS Platelet mean volume (Bld) [Entitic vol] 7.5 fL Invalid Interpretation Code 6.6 - 10.5 fL AH Workflow SS Platelets (Bld) [#/Vol] 182 103/mcL Invalid Interpretation Code 150 - 450 10^3/mcL AH Workflow SS Potassium [Moles/Vol] 4.3 mmol/L Invalid Interpretation Code 3.5 - 5.0 mEq/L ADM SS RBC (Bld) [#/Vol] 4.02 106/mcL Invalid Interpretation Code 4.10 - 5.30 10^6/mcL AH Workflow SS Sodium [Moles/Vol] 143 mmol/L Invalid Interpretation Code 136 - 145 mEq/L ADM SS Urea nitrogen [Mass/Vol] 11.0 mg/dL Invalid Interpretation Code 8.0 - 22.0 mg/dL ADM SS Urea nitrogen/Creatinine [Mass ratio] 17.7 ratio Invalid Interpretation Code 10.0 - 22.0 ratio ADM SS WBC (Bld) [#/Vol] 5.8 103/mcL Invalid Interpretation Code 4.5 - 10.8 10^3/mcL Workflow SS LABORATORYOrdered By: Yris emerson on 01-13-2023 Glucose [Mass/Vol] 75 mg/dL Invalid Interpretation Code 70 - 110 mg/dL [facility] Work Phone: LABORATORYOrdered By: SYSTEM SYSTEM on 01-12-2023 Albumin BCP dye [Mass/Vol] 2.3 G/dL Invalid Interpretation Code 3.2 - 4.8 G/dL ADM SS Band form neutrophils/100 WBC (Bld) 1.0 % Invalid Interpretation Code 0.0 - 5.0 % Workflow SS Basophils/100 WBC (Bld) 0.6 % Invalid Interpretation Code 0.0 - 2.5 % Workflow SS Basophils/100 WBC (Bld) 1.0 % Invalid Interpretation Code 0.0 - 2.5 % Workflow SS Calcium [Mass/Vol] 8.2 mg/dL Invalid Interpretation Code 8.7 - 10.4 mg/dL ADM SS Chloride [Moles/Vol] 110 mmol/L Invalid Interpretation Code 98 - 110 mEq/L ADM SS CO2 [Moles/Vol] 26 mmol/L Invalid Interpretation Code 22 - 32 mEq/L ADM SS Creatinine [Mass/Vol] 0.56 mg/dL Invalid Interpretation Code 0.50 - 1.20 mg/dL ADM SS Electrolyte Balance 8.0 mEq/L Invalid Interpretation Code 4.0 - 15.0 mEq/L ADM SS Eosinophils (Bld) [#/Vol] 0.3 103/mcL Invalid Interpretation Code 0.0 - 0.7 10^3/mcL Workflow SS Eosinophils (Bld) [#/Vol] 0.4 103/mcL Invalid Interpretation Code 0.0 - 0.7 10^3/mcL Workflow SS Eosinophils/100 WBC (Bld) 4.6 % Invalid Interpretation Code 0.0 - 6.0 % Workflow SS Eosinophils/100 WBC (Bld) 6.0 % Invalid Interpretation Code 0.0 - 6.0 % AH Workflow SS Erythrocyte distribution width (RBC) [Ratio] 13.3 % Invalid Interpretation Code 11.5 - 15.5 % AH Workflow SS GFR/1.73 sq M.predicted among blacks MDRD (S/P/Bld) [Vol rate/Area] ml/min/1.73sqm Invalid Interpretation Code AH Chemistry S GFR/1.73 sq M.predicted among non-blacks MDRD (S/P/Bld) [Vol rate/Area] ml/min/1.73sqm Invalid Interpretation Code AH Chemistry S Giant Platelets Few *NA* (01/12/23 7:04 AM) Invalid Interpretation Code AH Workflow SS Glucose [Mass/Vol] 91 mg/dL Invalid Interpretation Code 70 - 110 mg/dL AH ADM SS Hematocrit (Bld) [Volume fraction] 37.8 % Invalid Interpretation Code 34.0 - 46.0 % AH Workflow SS Hemoglobin (Bld) [Mass/Vol] 12.6 G/dL Invalid Interpretation Code 12.0 - 16.0 G/dL AH Workflow SS MCH (RBC) [Entitic mass] 31.1 pg Invalid Interpretation Code 27.0 - 33.0 pg AH Workflow SS MCHC 33.4 G/dL Invalid Interpretation Code 32.0 - 36.0 G/dL AH Workflow SS MCV (RBC) [Entitic vol] 93.2 fL Invalid Interpretation Code 80.0 - 99.0 fL AH Workflow SS Metamyelocytes/100 WBC (Bld) 1.0 % Invalid Interpretation Code AH Workflow SS Monocytes (Bld) [#/Vol] 0.7 103/mcL Invalid Interpretation Code 0.1 - 1.4 10^3/mcL AH Workflow SS Monocytes (Bld) [#/Vol] 0.2 103/mcL Invalid Interpretation Code 0.1 - 1.4 10^3/mcL AH Workflow SS Monocytes/100 WBC (Bld) 11.1 % Invalid Interpretation Code 2.0 - 13.0 % AH Workflow SS Monocytes/100 WBC (Bld) 4.0 % Invalid Interpretation Code 2.0 - 13.0 % AH Workflow SS Myelocytes/100 WBC (Bld) 1.0 % Invalid Interpretation Code AH Workflow SS Neutrophils (Bld) [#/Vol] 2.3 103/mcL Invalid Interpretation Code 2.3 - 8.1 10^3/mcL AH Workflow SS Neutrophils (Bld) [#/Vol] 2.4 103/mcL Invalid Interpretation Code 2.3 - 8.1 10^3/mcL AH Workflow SS Neutrophils/100 WBC (Bld) 35.7 % Invalid Interpretation Code 50.0 - 75.0 % AH Workflow SS Neutrophils/100 WBC (Bld) 38.0 % Invalid Interpretation Code 50.0 - 75.0 % AH Workflow SS Nucleated RBC 0.0 /100 WBC Invalid Interpretation Code AH Workflow SS Platelet mean volume (Bld) [Entitic vol] 7.3 fL Invalid Interpretation Code 6.6 - 10.5 fL AH Workflow SS Platelets (Bld) [#/Vol] 210 103/mcL Invalid Interpretation Code 150 - 450 10^3/mcL AH Workflow SS Platelets LM Ql (Bld) Normal *NA* (01/12/23 7:04 AM) Invalid Interpretation Code Workflow SS Polychromasia LM Ql (Bld) 1+ *NA* (01/12/23 7:04 AM) Invalid Interpretation Code Workflow SS Potassium [Moles/Vol] 3.7 mmol/L Invalid Interpretation Code 3.5 - 5.0 mEq/L AH ADM SS Prealbumin [Mass/Vol] 14.5 mg/dL Invalid Interpretation Code 10.0 - 40.0 mg/dL AH ADM SS RBC (Bld) [#/Vol] 4.05 106/mcL Invalid Interpretation Code 4.10 - 5.30 10^6/mcL AH Workflow SS Sodium [Moles/Vol] 144 mmol/L Invalid Interpretation Code 136 - 145 mEq/L AH ADM SS Urea nitrogen [Mass/Vol] 13.0 mg/dL Invalid Interpretation Code 8.0 - 22.0 mg/dL AH ADM SS Urea nitrogen/Creatinine [Mass ratio] 23.2 ratio Invalid Interpretation Code 10.0 - 22.0 ratio AH ADM SS WBC (Bld) [#/Vol] 6.3 103/mcL Invalid Interpretation Code 4.5 - 10.8 10^3/mcL Workflow SS Laboratory - Hematology and Cell countsOrdered By: SYSTEM SYSTEM on 01-12-2023 Basophils (Bld) [#/Vol] 0.0 103/mcL Invalid Interpretation Code 0.0 - 0.3 10^3/mcL AH Workflow SS Lymphocytes (Bld) [#/Vol] 3.0 103/mcL Invalid Interpretation Code 0.9 - 4.3 10^3/mcL AH Workflow SS Lymphocytes/100 WBC (Bld) 48.0 % Invalid Interpretation Code 20.0 - 40.0 % AH Workflow SS LABORATORYOrdered By: SYSTEM SYSTEM on 01-11-2023 Platelets LM Ql (Bld) Normal *NA* (01/11/23 6:07 AM) Invalid Interpretation Code AH Workflow SS RBC morphology finding Nom (Bld) See Below 4 *NA* (01/11/23 6:07 AM) Invalid Interpretation Code AH Workflow SS Comment on above: Result Comment: RBC Morphology appears Normal RBC morphology finding Nom (Bld) See Below 5 *NA* (01/11/23 6:07 AM) Invalid Interpretation Code AH Workflow SS Comment on above: Result Comment: RBC Morphology appears Normal LABORATORYOrdered By: SYSTEM SYSTEM on 01-10-2023 Ammonia (P) [Moles/Vol] 21 umol/L Invalid Interpretation Code 11 - 32 mcmol/L AH ADM SS LABORATORYOrdered By: Kasia buchanan on 01-10-2023 Glucose [Mass/Vol] 158 mg/dL Invalid Interpretation Code 70 - 110 mg/dL [facility] Work Phone: LABORATORYOrdered By: SYSTEM SYSTEM on 01-09-2023 Band form neutrophils/100 WBC (Bld) 1.0 % Invalid Interpretation Code 0.0 - 5.0 % AH Workflow SS Basophils (Bld) [#/Vol] 0.0 103/mcL Invalid Interpretation Code 0.0 - 0.3 10^3/mcL AH Workflow SS Basophils/100 WBC (Bld) 0.0 % Invalid Interpretation Code 0.0 - 2.5 % AH Workflow SS Eosinophils (Bld) [#/Vol] 0.1 103/mcL Invalid Interpretation Code 0.0 - 0.7 10^3/mcL AH Workflow SS Eosinophils/100 WBC (Bld) 2.0 % Invalid Interpretation Code 0.0 - 6.0 % AH Workflow SS Lymphocytes (Bld) [#/Vol] 2.3 103/mcL Invalid Interpretation Code 0.9 - 4.3 10^3/mcL AH Workflow SS Lymphocytes/100 WBC (Bld) 34.0 % Invalid Interpretation Code 20.0 - 40.0 % AH Workflow SS Metamyelocytes/100 WBC (Bld) 1.0 % Invalid Interpretation Code AH Workflow SS Monocytes (Bld) [#/Vol] 0.9 103/mcL Invalid Interpretation Code 0.1 - 1.4 10^3/mcL AH Workflow SS Monocytes/100 WBC (Bld) 13.0 % Invalid Interpretation Code 2.0 - 13.0 % AH Workflow SS Myelocytes/100 WBC (Bld) 1.0 % Invalid Interpretation Code AH Workflow SS Neutrophils (Bld) [#/Vol] 3.2 103/mcL Invalid Interpretation Code 2.3 - 8.1 10^3/mcL AH Workflow SS Neutrophils/100 WBC (Bld) 48.0 % Invalid Interpretation Code 50.0 - 75.0 % AH Workflow SS Nucleated RBC 0.0 /100 WBC Invalid Interpretation Code AH Workflow SS Platelets LM Ql (Bld) Normal *NA* (01/09/23 6:59 AM) Invalid Interpretation Code AH Workflow SS RBC morphology finding Nom (Bld) See Below 6 *NA* (01/09/23 6:59 AM) Invalid Interpretation Code AH Workflow SS Comment on above: Result Comment: RBC Morphology appears Normal LABORATORYOrdered By: Matthew Hassan on 01-05-2023 INR Coag (PPP) [Relative time] 1.1 {INR} Invalid Interpretation Code AH Auto Coag SS PT Coag (PPP) [Time] 13.5 s Invalid Interpretation Code 9.0 - 14.8 seconds AH Auto Coag SS LABORATORYOrdered By: Ankit Sam on 01-05-2023 MRSA DNA MACIE+probe Ql (Unsp spec) Detected 1 *ABN* (01/05/23 7:59 AM) Invalid Interpretation Code Not Detected AH Auto Viro/Sero SS Comment on above: Result Comment: Note s MRSA PCR Int Staph aureus DNA det ected by Real-Time Polymerase Chain Reaction (PCR). Organism viability can not be determined since free bacterial DNA may persist in the absence of viable organisms.As with all PCR based in vitro diagnostic tests, extremely low levels of target below the limit of detection of the assay may be detected, but results may not be reproducible, and the clinical significance unknown.Infection control will be notified. Invalid Interpretation Code AH Auto Viro/Sero SS LABORATORYOrdered By: SYSTEM SYSTEM on 01-05-2023 CRP [Mass/Vol] 3.0 mg/dL Invalid Interpretation Code 0.0 - 1.0 mg/dL AH ADM SS Monocyte distribution width Auto (Bld) [Entitic vol] 18.99 Invalid Interpretation Code 0.00 - 20.00 AH Workflow SS Comment on above: Result Comment: For ED adult patients suspected of sepsis, MDW<=20.0 does not rule out sepsis or risk of sepsis Albumin BCP dye [Mass/Vol] 2.7 G/dL Invalid Interpretation Code 3.2 - 4.8 G/dL AH ADM SS Albumin/Globulin [Mass ratio] 1.0 {ratio} Invalid Interpretation Code 0.9 - 1.6 ratio AH ADM SS ALP [Catalytic activity/Vol] 41 U/L Invalid Interpretation Code 38 - 126 U/L AH ADM SS ALT No additional P-5'-P [Catalytic activity/Vol] 18 U/L Invalid Interpretation Code 10 - 49 U/L AH ADM SS AST [Catalytic activity/Vol] 28 U/L Invalid Interpretation Code 8 - 34 U/L AH ADM SS Bilirubin [Mass/Vol] 0.60 mg/dL Invalid Interpretation Code 0.20 - 1.20 mg/dL AH ADM SS Globulin 2.6 G/dL Invalid Interpretation Code 1.5 - 3.8 G/dL AH ADM SS Lipase [Catalytic activity/Vol] 24 U/L Invalid Interpretation Code 12 - 53 U/L AH ADM SS Protein [Mass/Vol] 5.3 G/dL Invalid Interpretation Code 5.7 - 8.2 G/dL AH ADM SS LABORATORYOrdered By: Rhonda Good on 01-05-2023 ESR 15 minute reading (Bld) [Velocity] 4 mm/hr Invalid Interpretation Code 0 - 20 mm/hr AH Manual Heme SS LABORATORYOrdered By: Phong Bush on 01-05-2023 M. pneumoniae IgG IA Ql (S) Positive *NA* (01/05/23 5:14 AM) Invalid Interpretation Code AH Auto Viro/Sero SS LABORATORYOrdered By: Tari Rojas on 01-05-2023 M. pneumoniae IgM IA Ql (S) Negative (01/05/23 5:14 AM) Invalid Interpretation Code AH Man Viro/Sero SS LABORATORYOrdered By: Angela Buitrago on 01-05-2023 Appearance (U) Clear (01/05/23 12:46 AM) Invalid Interpretation Code Clear AH Auto Urine SS Bacteria LM.HPF (Urine sed) [#/Area] Negative (01/05/23 12:46 AM) Invalid Interpretation Code Negative AH Auto Urine SS Bilirubin Ql (U) Negative (01/05/23 12:46 AM) Invalid Interpretation Code Neg-Trace AH Auto Urine SS Color (U) Yellow (01/05/23 12:46 AM) Invalid Interpretation Code AH Auto Urine SS Crystals.amorphous LM.HPF (Urine sed) [#/Area] 1 /[HPF] Invalid Interpretation Code AH Auto Urine SS Glucose Test strip (U) [Mass/Vol] Negative Invalid Interpretation Code Negativemg /dL AH Auto Urine SS Hemoglobin Auto test strip (U) [Mass/Vol] Negative (01/05/23 12:46 AM) Invalid Interpretation Code Neg-Trace AH Auto Urine SS Ketones Ql (U) 15 mg/dL Invalid Interpretation Code Neg-Tracem g/dL AH Auto Urine SS UA Leuk Est Trace *NA* (01/05/23 12:46 AM) Invalid Interpretation Code Negative AH Auto Urine SS UA Mucous 2+ /HPF Invalid Interpretation Code AH Auto Urine SS UA Nitrite Negative (01/05/23 12:46 AM) Invalid Interpretation Code Negative AH Auto Urine SS UA pH 8.0 (01/05/23 12:46 AM) Invalid Interpretation Code 5.0 - 8.0 AH Auto Urine SS UA Protein Trace mg/dL Invalid Interpretation Code Negativemg /dL AH Auto Urine SS UA RBC 0-2 /HPF Invalid Interpretation Code 0-2/HPF AH Auto Urine SS UA Spec Grav 1.025 (01/05/23 12:46 AM) Invalid Interpretation Code 1.006-1.02 9 AH Auto Urine SS UA Specimen Type Clean Catch (01/05/23 12:46 AM) Invalid Interpretation Code AH Auto Urine SS UA Squam Epithelial 0-2 /HPF Invalid Interpretation Code 0-20/HPF AH Auto Urine SS UA Urobilinogen 2.0 E.U./dL Invalid Interpretation Code 0.2-1.0E.U ./dL AH Auto Urine SS WBC LM.HPF (Urine sed) [#/Area] 0-2 /HPF Invalid Interpretation Code 0-5/HPF AH Auto Urine SS No Panel Informationon 01-05 Legionella Urine Ag Presumptive negative for L. pneumophila serogroup 1 antigen in urine, suggesting no recent or current infection. Legionnaire's disease cannot be ruled out since other serogroups and species may also cause disease. [facility] Work Phone: Streptococcus Pneumoniae Urine Antig Presumptive negative for pneumococcal pneumonia, suggesting no current or recent pneumococcal infection. Infection due to Strep pneumoniae cannot be ruled out since the antigen present in the sample may be below the detection limit of the test. [facility] Work Phone: Comment on above: This test has not be en evaluated on patients taking antibiotics for greater than 24 hours or on patients who have recently completed an antibiotic regimen. The accuracy of this test has not been proven in young children. Culture Urine No growth at 48 hours. [facility] Work Phone: LABORATORYOrdered By: SYSTEM SYSTEM on 01-04-2023 Monocyte distribution width Auto (Bld) [Entitic vol] 18.19 Invalid Interpretation Code 0.00 - 20.00 AH Workflow SS Comment on above: Result Comment: For ED adult patients suspected of sepsis, MDW<=20.0 does not rule out sepsis or risk of sepsis LABORATORYOrdered By: Cori chavez on 01-04-2023 Adenovirus DNA MACIE+non-probe Ql (Nph) Not Detected *NA* (01/04/23 7:28 PM) Invalid Interpretation Code Not Detected AH Auto Viro/Sero SS B. parapertussis [id number] DNA MACIE+non-probe Ql (Nph) Not Detected *NA* (01/04/23 7:28 PM) Invalid Interpretation Code Not Detected AH Auto Viro/Sero SS B. pertussis toxin promoter region MACIE+non-probe Ql (Nph) Not Detected *NA* (01/04/23 7:28 PM) Invalid Interpretation Code Not Detected AH Auto Viro/Sero SS C. pneumoniae DNA MACIE+non-probe Ql (Nph) Not Detected *NA* (01/04/23 7:28 PM) Invalid Interpretation Code Not Detected AH Auto Viro/Sero SS FLUAV RNA MACIE+non-probe Ql (Nph) Not Detected *NA* (01/04/23 7:28 PM) Invalid Interpretation Code Not Detected AH Auto Viro/Sero SS FLUBV RNA MACIE+non-probe Ql (Nph) Not Detected *NA* (01/04/23 7:28 PM) Invalid Interpretation Code Not Detected AH Auto Viro/Sero SS hMPV RNA MACIE+non-probe Ql (Nph) Not Detected *NA* (01/04/23 7:28 PM) Invalid Interpretation Code Not Detected AH Auto Viro/Sero SS M. pneumoniae DNA MACIE+non-probe Ql (Nph) Not Detected *NA* (01/04/23 7:28 PM) Invalid Interpretation Code Not Detected AH Auto Viro/Sero SS Parainfluenza virus 1 RNA MACIE+non-probe Ql (Nph) Not Detected *NA* (01/04/23 7:28 PM) Invalid Interpretation Code Not Detected AH Auto Viro/Sero SS Parainfluenza virus 2 RNA MACIE+non-probe Ql (Nph) Not Detected *NA* (01/04/23 7:28 PM) Invalid Interpretation Code Not Detected AH Auto Viro/Sero SS Parainfluenza virus 3 RNA MACIE+non-probe Ql (Nph) Not Detected *NA* (01/04/23 7:28 PM) Invalid Interpretation Code Not Detected AH Auto Viro/Sero SS Parainfluenza virus 4 RNA MACIE+non-probe Ql (Nph) Not Detected *NA* (01/04/23 7:28 PM) Invalid Interpretation Code Not Detected AH Auto Viro/Sero SS Rhinovirus+Enteroviru s RNA MACIE+non-probe Ql (Nph) Not Detected *NA* (01/04/23 7:28 PM) Invalid Interpretation Code Not Detected AH Auto Viro/Sero SS RSV RNA MACIE+non-probe Ql (Nph) Not Detected *NA* (01/04/23 7:28 PM) Invalid Interpretation Code Not Detected AH Auto Viro/Sero SS SARS-CoV-2 (COVID-19) RNA MACIE+probe Ql (Resp) Not Detected *NA* (01/04/23 7:28 PM) Invalid Interpretation Code Not Detected AH Auto Viro/Sero SS US KIDNEY/BLADDERon 11-16-19 [facility] UA DIP, URINE (POC)on 2022 BILIRUBIN UA (POCT) Negative Negative [facility] CLARITY UA (POCT) Clear [facility] COLOR UA (POCT) Yellow [facility] GLUCOSE UA (POCT) Negative Negative mg/dL [facility] HEMOGLOBIN/BLOOD UA (POCT) Trace-intact Abnormal Negative [facility] KETONE UA (POCT) Trace Negative mg/dL [facility] LEUKOCYTES [facility] (PO[facility]) [facility] NITRITE UA (POCT) Negative Negative [facility] PH UA (POCT) 6.0 4.5 - 8.0 [facility] Protein Ql (U) Negative Negative mg/dL [facility] SPECIFIC GRAVITY UA (POCT) 1.015 1.005 - 1.030 [facility] UROBILINOGEN UA (POCT) 1.0 E.U./dL Normal E.U./dL [facility] US FEMALE PELVIS TRANSABD CO MPLETEon 10-29-2022 [facility] LABORATORYOrdered By: SYSTEM SYSTEM on 08-27-2022 CK [Catalytic activity/Vol] 144 U/L Invalid Interpretation Code 7 - 185 U/L ADM SS Comment on above: Result Comment: Spec imen slightly hemolyzed. Basophils (Bld) [#/Vol] 0.1 103/mcL Invalid Interpretation Code 0.0 - 0.3 10^3/mcL Workflow SS Basophils/100 WBC (Bld) 1.0 % Invalid Interpretation Code 0.0 - 2.5 % Workflow SS Calcium [Mass/Vol] 9.2 mg/dL Invalid Interpretation Code 8.7 - 10.4 mg/dL ADM SS Chloride [Moles/Vol] 109 mmol/L Invalid Interpretation Code 98 - 110 mEq/L ADM SS CO2 [Moles/Vol] 28 mmol/L Invalid Interpretation Code 22 - 32 mEq/L ADM SS Creatinine [Mass/Vol] 0.72 mg/dL Invalid Interpretation Code 0.50 - 1.20 mg/dL ADM SS Electrolyte Balance 8.0 mEq/L Invalid Interpretation Code 4.0 - 15.0 mEq/L ADM SS Eosinophils (Bld) [#/Vol] 0.2 103/mcL Invalid Interpretation Code 0.0 - 0.7 10^3/mcL Workflow SS Eosinophils/100 WBC (Bld) 3.0 % Invalid Interpretation Code 0.0 - 6.0 % Workflow SS Erythrocyte distribution width (RBC) [Ratio] 14.2 % Invalid Interpretation Code 11.5 - 15.5 % Workflow SS GFR/1.73 sq M.predicted among blacks MDRD (S/P/Bld) [Vol rate/Area] ml/min/1.73sqm Invalid Interpretation Code Chemistry S GFR/1.73 sq M.predicted among non-blacks MDRD (S/P/Bld) [Vol rate/Area] ml/min/1.73sqm Invalid Interpretation Code Chemistry S Glucose [Mass/Vol] 87 mg/dL Invalid Interpretation Code 70 - 110 mg/dL ADM SS Hematocrit (Bld) [Volume fraction] 41.0 % Invalid Interpretation Code 34.0 - 46.0 % AH Workflow SS Hemoglobin (Bld) [Mass/Vol] 13.6 G/dL Invalid Interpretation Code 12.0 - 16.0 G/dL AH Workflow SS Lymphocytes (Bld) [#/Vol] 2.8 103/mcL Invalid Interpretation Code 0.9 - 4.3 10^3/mcL Workflow SS Lymphocytes/100 WBC (Bld) 42.0 % Invalid Interpretation Code 20.0 - 40.0 % Workflow SS MCH (RBC) [Entitic mass] 31.5 pg Invalid Interpretation Code 27.0 - 33.0 pg AH Workflow SS MCHC 33.2 G/dL Invalid Interpretation Code 32.0 - 36.0 G/dL Workflow SS MCV (RBC) [Entitic vol] 94.9 fL Invalid Interpretation Code 80.0 - 99.0 fL Workflow SS Monocytes (Bld) [#/Vol] 0.8 103/mcL Invalid Interpretation Code 0.1 - 1.4 10^3/mcL Workflow SS Monocytes/100 WBC (Bld) 11.8 % Invalid Interpretation Code 2.0 - 13.0 % AH Workflow SS Neutrophils (Bld) [#/Vol] 2.8 103/mcL Invalid Interpretation Code 2.3 - 8.1 10^3/mcL Workflow SS Neutrophils/100 WBC (Bld) 42.2 % Invalid Interpretation Code 50.0 - 75.0 % Workflow SS Platelet mean volume (Bld) [Entitic vol] 8.3 fL Invalid Interpretation Code 6.6 - 10.5 fL Workflow SS Platelets (Bld) [#/Vol] 153 103/mcL Invalid Interpretation Code 150 - 450 10^3/mcL Workflow SS Potassium [Moles/Vol] 3.7 mmol/L Invalid Interpretation Code 3.5 - 5.0 mEq/L ADM SS Comment on above: Result Comment: Spec imen slightly hemolyzed. RBC (Bld) [#/Vol] 4.32 106/mcL Invalid Interpretation Code 4.10 - 5.30 10^6/mcL AH Workflow SS Sodium [Moles/Vol] 145 mmol/L Invalid Interpretation Code 136 - 145 mEq/L AH ADM SS Urea nitrogen [Mass/Vol] 12.0 mg/dL Invalid Interpretation Code 8.0 - 22.0 mg/dL AH ADM SS Urea nitrogen/Creatinine [Mass ratio] 16.7 ratio Invalid Interpretation Code 10.0 - 22.0 ratio AH ADM SS WBC (Bld) [#/Vol] 6.6 103/mcL Invalid Interpretation Code 4.5 - 10.8 10^3/mcL AH Workflow SS No Panel Informationon 08-27 Microscopic examination of blood, culture Culture has been received in lab and is no growth to date. Routine cultures are held for 5 days. [facility] Work Phone: Microscopic examination of blood, culture Culture has been received in lab and is no growth to date. Routine cultures are held for 5 days. [facility] Work Phone: GENTAMICIN:SUSC:PT:ISOLATE:O RDQN:MICon 08-26-2022 Gentamicin KIKI [Susc] 50,000 - 100,000 c fu/ml Escherichia coli [facility] Work Phone: Gentamicin KIKI [Susc]on Escherichia coli Escherichia coli [facility] Work Phone: LABORATORYOrdered By: Mahi Morrison on 08-26-2022 Appearance (U) Turbid *ABN* (08/26/22 10:46 PM) Invalid Interpretation Code Clear AH Auto Urine SS Bacteria LM.HPF (Urine sed) [#/Area] 3 /[HPF] Invalid Interpretation Code Negative/H PF AH Auto Urine SS Bilirubin Ql (U) Negative (08/26/22 10:46 PM) Invalid Interpretation Code Neg-Trace AH Auto Urine SS Color (U) Dark Yellow (08/26/22 10:46 PM) Invalid Interpretation Code AH Auto Urine SS Glucose Test strip (U) [Mass/Vol] Negative Invalid Interpretation Code Negativemg /dL AH Auto Urine SS Hemoglobin Auto test strip (U) [Mass/Vol] Large *ABN* (08/26/22 10:46 PM) Invalid Interpretation Code Neg-Trace AH Auto Urine SS Ketones Ql (U) Trace mg/dL Invalid Interpretation Code Neg-Tracem g/dL AH Auto Urine SS UA Leuk Est Small *ABN* (08/26/22 10:46 PM) Invalid Interpretation Code Negative AH Auto Urine SS UA Mucous 2+ /HPF Invalid Interpretation Code AH Auto Urine SS UA Nitrite Positive *ABN* (08/26/22 10:46 PM) Invalid Interpretation Code Negative AH Auto Urine SS UA pH 5.5 (08/26/22 10:46 PM) Invalid Interpretation Code 5.0 - 8.0 AH Auto Urine SS UA Protein 300 mg/dL Invalid Interpretation Code Negativemg /dL AH Auto Urine SS UA RBC LOADED /HPF Invalid Interpretation Code 0-2/HPF AH Auto Urine SS UA Spec Grav >=1.030 *ABN* (08/26/22 10:46 PM) Invalid Interpretation Code 1.006-1.02 9 AH Auto Urine SS UA Specimen Type Clean Catch (08/26/22 10:46 PM) Invalid Interpretation Code AH Auto Urine SS UA Squam Epithelial 3-5 /HPF Invalid Interpretation Code 0-20/HPF AH Auto Urine SS UA Transitional Epithelial 0-2 /HPF Invalid Interpretation Code AH Auto Urine SS UA Urobilinogen 1.0 E.U./dL Invalid Interpretation Code 0.2-1.0E.U ./dL AH Auto Urine SS WBC LM.HPF (Urine sed) [#/Area] LOADED /HPF Invalid Interpretation Code 0-5/HPF AH Auto Urine SS LABORATORYOrdered By: Kylee Bob on 08-26-2022 Drug Screen Urine Negative (08/26/22 10:46 PM) Invalid Interpretation Code Chemistry S Drug Screen Urine Interp Urine shows no evidence of drugs routinely screened. Invalid Interpretation Code Chemistry S pH (U) 5.5 [pH] Invalid Interpretation Code 5.0 - 8.0 AH Chemistry S Specific gravity (U) [Rel density] 1.036 Invalid Interpretation Code 1.005 - 1.030 AH Chemistry S Comment on above: Result Comment: The specific gravity is outside the normal reference range. Results may be affected and, therefore, recollection may be indicated. Urine Drugs screened: See Below (08/26/22 10:46 PM) Invalid Interpretation Code Chemistry S LABORATORYOrdered By: SYSTEM SYSTEM on 08-26-2022 Albumin BCP dye [Mass/Vol] 3.0 G/dL Invalid Interpretation Code 3.2 - 4.8 G/dL AH ADM SS Albumin/Globulin [Mass ratio] 0.9 {ratio} Invalid Interpretation Code 0.9 - 1.6 ratio ADM SS ALP [Catalytic activity/Vol] 59 U/L Invalid Interpretation Code 38 - 126 U/L ADM SS ALT No additional P-5'-P [Catalytic activity/Vol] 20 U/L Invalid Interpretation Code 10 - 49 U/L ADM SS AST [Catalytic activity/Vol] 20 U/L Invalid Interpretation Code 8 - 34 U/L ADM SS Basophils (Bld) [#/Vol] 0.1 103/mcL Invalid Interpretation Code 0.0 - 0.3 10^3/mcL Workflow SS Basophils/100 WBC (Bld) 0.8 % Invalid Interpretation Code 0.0 - 2.5 % Workflow SS Bilirubin [Mass/Vol] 0.50 mg/dL Invalid Interpretation Code 0.20 - 1.20 mg/dL ADM SS Calcium [Mass/Vol] 9.0 mg/dL Invalid Interpretation Code 8.7 - 10.4 mg/dL ADM SS Chloride [Moles/Vol] 109 mmol/L Invalid Interpretation Code 98 - 110 mEq/L ADM SS CO2 [Moles/Vol] 26 mmol/L Invalid Interpretation Code 22 - 32 mEq/L ADM SS Creatinine [Mass/Vol] 0.70 mg/dL Invalid Interpretation Code 0.50 - 1.20 mg/dL ADM SS Electrolyte Balance 8.0 mEq/L Invalid Interpretation Code 4.0 - 15.0 mEq/L ADM SS Eosinophils (Bld) [#/Vol] 0.2 103/mcL Invalid Interpretation Code 0.0 - 0.7 10^3/mcL Workflow SS Eosinophils/100 WBC (Bld) 2.8 % Invalid Interpretation Code 0.0 - 6.0 % Workflow SS Erythrocyte distribution width (RBC) [Ratio] 14.2 % Invalid Interpretation Code 11.5 - 15.5 % Workflow SS GFR/1.73 sq M.predicted among blacks MDRD (S/P/Bld) [Vol rate/Area] ml/min/1.73sqm Invalid Interpretation Code Chemistry S GFR/1.73 sq M.predicted among non-blacks MDRD (S/P/Bld) [Vol rate/Area] ml/min/1.73sqm Invalid Interpretation Code Chemistry S Globulin 3.2 G/dL Invalid Interpretation Code 1.5 - 3.8 G/dL AH ADM SS Glucose [Mass/Vol] 90 mg/dL Invalid Interpretation Code 70 - 110 mg/dL AH ADM SS Hematocrit (Bld) [Volume fraction] 40.7 % Invalid Interpretation Code 34.0 - 46.0 % AH Workflow SS Hemoglobin (Bld) [Mass/Vol] 13.7 G/dL Invalid Interpretation Code 12.0 - 16.0 G/dL AH Workflow SS Lymphocytes (Bld) [#/Vol] 3.1 103/mcL Invalid Interpretation Code 0.9 - 4.3 10^3/mcL AH Workflow SS Lymphocytes/100 WBC (Bld) 44.1 % Invalid Interpretation Code 20.0 - 40.0 % AH Workflow SS MCH (RBC) [Entitic mass] 31.6 pg Invalid Interpretation Code 27.0 - 33.0 pg AH Workflow SS MCHC 33.6 G/dL Invalid Interpretation Code 32.0 - 36.0 G/dL AH Workflow SS MCV (RBC) [Entitic vol] 94.3 fL Invalid Interpretation Code 80.0 - 99.0 fL AH Workflow SS Monocytes (Bld) [#/Vol] 0.8 103/mcL Invalid Interpretation Code 0.1 - 1.4 10^3/mcL AH Workflow SS Monocytes/100 WBC (Bld) 11.2 % Invalid Interpretation Code 2.0 - 13.0 % AH Workflow SS Neutrophils (Bld) [#/Vol] 2.8 103/mcL Invalid Interpretation Code 2.3 - 8.1 10^3/mcL AH Workflow SS Neutrophils/100 WBC (Bld) 41.1 % Invalid Interpretation Code 50.0 - 75.0 % AH Workflow SS Platelet mean volume (Bld) [Entitic vol] 8.4 fL Invalid Interpretation Code 6.6 - 10.5 fL AH Workflow SS Platelets (Bld) [#/Vol] 149 103/mcL Invalid Interpretation Code 150 - 450 10^3/mcL AH Workflow SS Potassium [Moles/Vol] 3.8 mmol/L Invalid Interpretation Code 3.5 - 5.0 mEq/L ADM SS Protein [Mass/Vol] 6.2 G/dL Invalid Interpretation Code 5.7 - 8.2 G/dL ADM SS RBC (Bld) [#/Vol] 4.31 106/mcL Invalid Interpretation Code 4.10 - 5.30 10^6/mcL AH Workflow SS Sodium [Moles/Vol] 143 mmol/L Invalid Interpretation Code 136 - 145 mEq/L ADM SS Urea nitrogen [Mass/Vol] 12.0 mg/dL Invalid Interpretation Code 8.0 - 22.0 mg/dL ADM SS Urea nitrogen/Creatinine [Mass ratio] 17.1 ratio Invalid Interpretation Code 10.0 - 22.0 ratio AH ADM SS WBC (Bld) [#/Vol] 6.9 103/mcL Invalid Interpretation Code 4.5 - 10.8 10^3/mcL Workflow SS LABORATORYOrdered By: SYSTEM SYSTEM on 08-25-2022 Albumin BCP dye [Mass/Vol] 3.5 G/dL Invalid Interpretation Code 3.2 - 4.8 G/dL ADM SS Albumin/Globulin [Mass ratio] 1.1 {ratio} Invalid Interpretation Code 0.9 - 1.6 ratio ADM SS ALP [Catalytic activity/Vol] 66 U/L Invalid Interpretation Code 38 - 126 U/L ADM SS ALT No additional P-5'-P [Catalytic activity/Vol] 24 U/L Invalid Interpretation Code 10 - 49 U/L ADM SS AST [Catalytic activity/Vol] 31 U/L Invalid Interpretation Code 8 - 34 U/L ADM SS Basophils (Bld) [#/Vol] 0.1 103/mcL Invalid Interpretation Code 0.0 - 0.3 10^3/mcL Workflow SS Basophils/100 WBC (Bld) 0.9 % Invalid Interpretation Code 0.0 - 2.5 % Workflow SS Bilirubin [Mass/Vol] 0.80 mg/dL Invalid Interpretation Code 0.20 - 1.20 mg/dL ADM SS Calcium [Mass/Vol] 9.4 mg/dL Invalid Interpretation Code 8.7 - 10.4 mg/dL ADM SS Chloride [Moles/Vol] 110 mmol/L Invalid Interpretation Code 98 - 110 mEq/L ADM SS CO2 [Moles/Vol] 25 mmol/L Invalid Interpretation Code 22 - 32 mEq/L ADM SS Creatinine [Mass/Vol] 0.71 mg/dL Invalid Interpretation Code 0.50 - 1.20 mg/dL ADM SS Electrolyte Balance 8.0 mEq/L Invalid Interpretation Code 4.0 - 15.0 mEq/L ADM SS Eosinophils (Bld) [#/Vol] 0.1 103/mcL Invalid Interpretation Code 0.0 - 0.7 10^3/mcL AH Workflow SS Eosinophils/100 WBC (Bld) 1.7 % Invalid Interpretation Code 0.0 - 6.0 % AH Workflow SS Erythrocyte distribution width (RBC) [Ratio] 14.2 % Invalid Interpretation Code 11.5 - 15.5 % AH Workflow SS GFR/1.73 sq M.predicted among blacks MDRD (S/P/Bld) [Vol rate/Area] ml/min/1.73sqm Invalid Interpretation Code Chemistry S GFR/1.73 sq M.predicted among non-blacks MDRD (S/P/Bld) [Vol rate/Area] ml/min/1.73sqm Invalid Interpretation Code Chemistry S Globulin 3.3 G/dL Invalid Interpretation Code 1.5 - 3.8 G/dL ADM SS Glucose [Mass/Vol] 85 mg/dL Invalid Interpretation Code 70 - 110 mg/dL ADM SS Hematocrit (Bld) [Volume fraction] 42.8 % Invalid Interpretation Code 34.0 - 46.0 % Workflow SS Hemoglobin (Bld) [Mass/Vol] 14.4 G/dL Invalid Interpretation Code 12.0 - 16.0 G/dL Workflow SS Lymphocytes (Bld) [#/Vol] 2.2 103/mcL Invalid Interpretation Code 0.9 - 4.3 10^3/mcL Workflow SS Lymphocytes/100 WBC (Bld) 26.4 % Invalid Interpretation Code 20.0 - 40.0 % AH Workflow SS Magnesium [Mass/Vol] 1.8 mg/dL Invalid Interpretation Code 1.6 - 2.4 mg/dL ADM SS MCH (RBC) [Entitic mass] 31.8 pg Invalid Interpretation Code 27.0 - 33.0 pg AH Workflow SS MCHC 33.6 G/dL Invalid Interpretation Code 32.0 - 36.0 G/dL Workflow SS MCV (RBC) [Entitic vol] 94.6 fL Invalid Interpretation Code 80.0 - 99.0 fL Workflow SS Monocytes (Bld) [#/Vol] 1.1 103/mcL Invalid Interpretation Code 0.1 - 1.4 10^3/mcL Workflow SS Monocytes/100 WBC (Bld) 13.7 % Invalid Interpretation Code 2.0 - 13.0 % Workflow SS Neutrophils (Bld) [#/Vol] 4.7 103/mcL Invalid Interpretation Code 2.3 - 8.1 10^3/mcL Workflow SS Neutrophils/100 WBC (Bld) 57.3 % Invalid Interpretation Code 50.0 - 75.0 % Workflow SS Phosphate [Mass/Vol] 4.2 mg/dL Invalid Interpretation Code 2.4 - 5.1 mg/dL ADM SS Platelet mean volume (Bld) [Entitic vol] 8.5 fL Invalid Interpretation Code 6.6 - 10.5 fL Workflow SS Platelets (Bld) [#/Vol] 149 103/mcL Invalid Interpretation Code 150 - 450 10^3/mcL Workflow SS Potassium [Moles/Vol] 3.7 mmol/L Invalid Interpretation Code 3.5 - 5.0 mEq/L ADM SS Comment on above: Result Comment: Spec imen slightly hemolyzed. Protein [Mass/Vol] 6.8 G/dL Invalid Interpretation Code 5.7 - 8.2 G/dL ADM SS RBC (Bld) [#/Vol] 4.53 106/mcL Invalid Interpretation Code 4.10 - 5.30 10^6/mcL Workflow SS Sodium [Moles/Vol] 143 mmol/L Invalid Interpretation Code 136 - 145 mEq/L ADM SS Urea nitrogen [Mass/Vol] 9.0 mg/dL Invalid Interpretation Code 8.0 - 22.0 mg/dL ADM SS Urea nitrogen/Creatinine [Mass ratio] 12.7 ratio Invalid Interpretation Code 10.0 - 22.0 ratio ADM SS WBC (Bld) [#/Vol] 8.2 103/mcL Invalid Interpretation Code 4.5 - 10.8 10^3/mcL Workflow SS LABORATORYOrdered By: SYSTEM SYSTEM on 08-23-2022 Ammonia (P) [Moles/Vol] 17 umol/L Invalid Interpretation Code 11 - 32 mcmol/L ADM SS Comment on above: Result Comment: Spec imen slightly hemolyzed. Cobalamin (Vitamin B12) [Mass/Vol] 625 pg/mL Invalid Interpretation Code 211 - 911 pg/mL ADM SS TSH Qn 1.228 mIU/mL Invalid Interpretation Code 0.550 - 4.780 mIU/mL ADM SS Albumin BCP dye [Mass/Vol] 3.9 G/dL Invalid Interpretation Code 3.2 - 4.8 G/dL ADM SS Albumin/Globulin [Mass ratio] 1.1 {ratio} Invalid Interpretation Code 0.9 - 1.6 ratio AH ADM SS ALP [Catalytic activity/Vol] 69 U/L Invalid Interpretation Code 38 - 126 U/L AH ADM SS ALT No additional P-5'-P [Catalytic activity/Vol] 22 U/L Invalid Interpretation Code 10 - 49 U/L AH ADM SS AST [Catalytic activity/Vol] 31 U/L Invalid Interpretation Code 8 - 34 U/L AH ADM SS Bilirubin [Mass/Vol] 0.90 mg/dL Invalid Interpretation Code 0.20 - 1.20 mg/dL AH ADM SS Globulin 3.7 G/dL Invalid Interpretation Code 1.5 - 3.8 G/dL AH ADM SS Monocyte distribution width Auto (Bld) [Entitic vol] 17.39 Invalid Interpretation Code 0.00 - 20.00 AH Workflow SS Comment on above: Result Comment: For ED adult patients suspected of sepsis, MDW<=20.0 does not rule out sepsis or risk of sepsis Protein [Mass/Vol] 7.6 G/dL Invalid Interpretation Code 5.7 - 8.2 G/dL AH ADM SS Troponin I.cardiac DL <= 0.01 ng/mL [Mass/Vol] 15.32 ng/L Invalid Interpretation Code 0.00 - 34.00 ng/L AH ADM SS Valproate [Mass/Vol] 18.1 ug/mL Invalid Interpretation Code 50.0 - 130.0 mcg/mL AH ADM SS LABORATORYOrdered By: Lashanda mcnally on 08-23-2022 FLUAV RNA MACIE+probe Ql (Resp) Negative 8 (08/23/22 4:17 PM) Invalid Interpretation Code Negative AH Auto Viro/Sero SS Comment on above: Result Comment: Note s FLUBV RNA MACIE+probe Ql (Resp) Negative 9 (08/23/22 4:17 PM) Invalid Interpretation Code Negative AH Auto Viro/Sero SS Comment on above: Result Comment: Note s RSV PCR Negative 10 (08/23/22 4:17 PM) Invalid Interpretation Code Negative AH Auto Viro/Sero SS Comment on above: Result Comment: Note s SARS-CoV-2 (COVID-19) RNA MACIE+probe Ql (Resp) Negative 7 (08/23/22 4:17 PM) Invalid Interpretation Code Negative AH Auto Viro/Sero SS Comment on above: Result Comment: Note s LABORATORYOrdered By: Katerin Chanel on 08-23-2022 Lactate [Moles/Vol] 1.4 mmol/L Invalid Interpretation Code 0.2 - 2.0 mmol/L AH Auto Chem SS LABORATORYOrdered By: William Rojas on 08-23-2022 Appearance (U) Clear (08/23/22 1:24 PM) Invalid Interpretation Code Clear AH Auto Urine SS Bilirubin Ql (U) Negative (08/23/22 1:24 PM) Invalid Interpretation Code Neg-Trace AH Auto Urine SS Color (U) Dark Yellow *NA* (08/23/22 1:24 PM) Invalid Interpretation Code AH Auto Urine SS Glucose Test strip (U) [Mass/Vol] Negative Invalid Interpretation Code Negativemg /dL AH Auto Urine SS Hemoglobin Auto test strip (U) [Mass/Vol] Large *ABN* (08/23/22 1:24 PM) Invalid Interpretation Code Neg-Trace AH Auto Urine SS Ketones Ql (U) 80 mg/dL Invalid Interpretation Code Neg-Tracem g/dL AH Auto Urine SS UA Leuk Est Trace *NA* (08/23/22 1:24 PM) Invalid Interpretation Code Negative AH Auto Urine SS UA Nitrite Negative (08/23/22 1:24 PM) Invalid Interpretation Code Negative AH Auto Urine SS UA pH 5.5 (08/23/22 1:24 PM) Invalid Interpretation Code 5.0 - 8.0 AH Auto Urine SS UA Protein 30 mg/dL Invalid Interpretation Code Negativemg /dL AH Auto Urine SS UA Spec Grav >=1.030 *ABN* (08/23/22 1:24 PM) Invalid Interpretation Code 1.006-1.02 9 AH Auto Urine SS UA Specimen Type Clean Catch (08/23/22 1:24 PM) Invalid Interpretation Code AH Auto Urine SS UA Urobilinogen 1.0 E.U./dL Invalid Interpretation Code 0.2-1.0E.U ./dL AH Auto Urine SS LABORATORYOrdered By: Eldon on 08-23-2022 UA Mucous 3+ /HPF Invalid Interpretation Code AH Auto Urine SS UA RBC 25-50 /HPF Invalid Interpretation Code 0-2/HPF AH Auto Urine SS UA Squam Epithelial Rare /HPF Invalid Interpretation Code 0-20/HPF AH Auto Urine SS WBC LM.HPF (Urine sed) [#/Area] 3-5 /HPF Invalid Interpretation Code 0-5/HPF Auto Urine SS LABORATORYOrdered By: Naty vasquez on 08-23-2022 LDose Valproic Acid: Unknown (08/23/22 12:02 PM) Invalid Interpretation Code Chemistry S LABORATORYOrdered By: Booodl SYSTEM on 07-15-2021 Albumin [Mass/Vol] 3.2 G/dL Invalid Interpretation Code 3.2 - 4.8 G/dL ADM SS Albumin/Globulin [Mass ratio] 0.8 {ratio} Invalid Interpretation Code 0.9 - 1.6 ratio ADM SS ALP [Catalytic activity/Vol] 53 U/L Invalid Interpretation Code 38 - 126 U/L ADM SS ALT [Catalytic activity/Vol] 25 U/L Invalid Interpretation Code 10 - 49 U/L ADM SS AST [Catalytic activity/Vol] 16 U/L Invalid Interpretation Code 8 - 34 U/L ADM SS Base excess Calc (BldMV) [Moles/Vol] 8.0 mEq/L Invalid Interpretation Code 4.0 - 15.0 mEq/L AH ADM SS Basophils (Bld) [#/Vol] 0.00 103/mcL Invalid Interpretation Code 0.00 - 0.27 10^3/mcL AH Remisol SS Basophils/100 WBC (Bld) 1.2 % Invalid Interpretation Code 0.0 - 2.5 % Remisol SS Bilirubin [Mass/Vol] 0.2 mg/dL Invalid Interpretation Code 0.2 - 1.2 mg/dL ADM SS Calcium [Mass/Vol] 9.0 mg/dL Invalid Interpretation Code 8.4 - 10.1 mg/dL AH ADM SS Chloride [Moles/Vol] 112 mmol/L Invalid Interpretation Code 98 - 110 mEq/L ADM SS CO2 [Moles/Vol] 25 mmol/L Invalid Interpretation Code 22 - 32 mEq/L ADM SS Creatinine [Mass/Vol] 0.75 mg/dL Invalid Interpretation Code 0.50 - 1.20 mg/dL AH ADM SS Eosinophils (Bld) [#/Vol] 0.00 103/mcL Invalid Interpretation Code 0.00 - 0.65 10^3/mcL AH Remisol SS Eosinophils/100 WBC (Bld) 0.0 % Invalid Interpretation Code 0.0 - 6.0 % AH Remisol SS Erythrocyte distribution width (RBC) [Ratio] 13.6 % Invalid Interpretation Code 11.5 - 15.5 % AH Remisol SS GFR/1.73 sq M.predicted among blacks MDRD (S/P/Bld) [Vol rate/Area] ml/min/1.73sqm Invalid Interpretation Code AH ADM SS GFR/1.73 sq M.predicted among non-blacks MDRD (S/P/Bld) [Vol rate/Area] ml/min/1.73sqm Invalid Interpretation Code AH ADM SS Globulin (S) [Mass/Vol] 4.0 G/dL Invalid Interpretation Code 1.5 - 3.8 G/dL AH ADM SS Glucose [Mass/Vol] 121 mg/dL Invalid Interpretation Code 70 - 110 mg/dL AH ADM SS Hematocrit (Bld) [Volume fraction] 44.3 % Invalid Interpretation Code 34.0 - 46.0 % AH Remisol SS Hemoglobin (Bld) [Mass/Vol] 14.5 G/dL Invalid Interpretation Code 12.0 - 16.0 G/dL AH Remisol SS Lipase [Catalytic activity/Vol] 50 U/L Invalid Interpretation Code 12 - 53 U/L AH ADM SS Lymphocytes (Bld) [#/Vol] 1.70 103/mcL Invalid Interpretation Code 0.90 - 4.32 10^3/mcL AH Remisol SS Lymphocytes/100 WBC (Bld) 49.4 % Invalid Interpretation Code 20.0 - 40.0 % AH Remisol SS MCH (RBC) [Entitic mass] 30.0 pg Invalid Interpretation Code 27.0 - 33.0 pg AH Remisol SS MCHC (RBC) [Mass/Vol] 32.7 G/dL Invalid Interpretation Code 32.0 - 36.0 G/dL AH Remisol SS MCV (RBC) [Entitic vol] 91.6 fL Invalid Interpretation Code 80.0 - 99.0 fL AH Remisol SS Monocytes (Bld) [#/Vol] 0.70 103/mcL Invalid Interpretation Code 0.09 - 1.40 10^3/mcL AH Remisol SS Monocytes/100 WBC (Bld) 19.8 % Invalid Interpretation Code 2.0 - 13.0 % AH Remisol SS Neutrophils (Bld) [#/Vol] 1.00 103/mcL Invalid Interpretation Code 2.25 - 8.10 10^3/mcL AH Remisol SS Neutrophils/100 WBC (Bld) 29.6 % Invalid Interpretation Code 50.0 - 75.0 % AH Remisol SS Platelet mean volume (Bld) [Entitic vol] 8.1 fL Invalid Interpretation Code 6.6 - 10.5 fL AH Remisol SS Platelets (Bld) [#/Vol] 191 103/mcL Invalid Interpretation Code 150 - 450 10^3/mcL AH Remisol SS Potassium [Moles/Vol] 3.8 mmol/L Invalid Interpretation Code 3.5 - 5.0 mEq/L AH ADM SS Protein [Mass/Vol] 7.2 G/dL Invalid Interpretation Code 6.0 - 8.5 G/dL AH ADM SS RBC (Bld) [#/Vol] 4.84 106/mcL Invalid Interpretation Code 4.10 - 5.30 10^6/mcL AH Remisol SS Sodium [Moles/Vol] 145 mmol/L Invalid Interpretation Code 136 - 145 mEq/L AH ADM SS Urea nitrogen [Mass/Vol] 14.0 mg/dL Invalid Interpretation Code 8.0 - 22.0 mg/dL AH ADM SS Urea nitrogen/Creatinine [Mass ratio] 18.7 ratio Invalid Interpretation Code 10.0 - 22.0 ratio AH ADM SS WBC (Bld) [#/Vol] 3.40 103/mcL Invalid Interpretation Code 4.50 - 10.80 10^3/mcL AH Remisol SS LABORATORYOrdered By: America Mejia on 2021 Appearance (U) Cloudy *ABN* (07/08/21 7:46 PM) Invalid Interpretation Code AH Auto Urine SS Bacteria LM.HPF (Urine sed) [#/Area] Trace /HPF Invalid Interpretation Code Negative/H PF AH Auto Urine SS Bilirubin Ql (U) Negative (07/08/21 7:46 PM) Invalid Interpretation Code Neg-Trace AH Auto Urine SS Color (U) Yellow (07/08/21 7:46 PM) Invalid Interpretation Code AH Auto Urine SS Glucose Test strip (U) [Mass/Vol] Negative Invalid Interpretation Code Negativemg /dL AH Auto Urine SS Hemoglobin Auto test strip (U) [Mass/Vol] Negative (07/08/21 7:46 PM) Invalid Interpretation Code Neg-Trace AH Auto Urine SS Hyaline casts.broad LM Ql (Urine sed) Rare /LPF Invalid Interpretation Code AH Auto Urine SS Ketones Ql (U) 80 mg/dL Invalid Interpretation Code Neg-Tracem g/dL Auto Urine SS UA Ghost cells Rare /HPF Invalid Interpretation Code Auto Urine SS UA Hyal Cast 0-2 /LPF Invalid Interpretation Code AH Auto Urine SS UA Leuk Est Small *ABN* (07/08/21 7:46 PM) Invalid Interpretation Code Negative Auto Urine SS UA Mucous 3+ /HPF Invalid Interpretation Code AH Auto Urine SS UA Nitrite Negative (07/08/21 7:46 PM) Invalid Interpretation Code Negative AH Auto Urine SS UA pH 6.0 (07/08/21 7:46 PM) Invalid Interpretation Code 5.0 - 8.0 AH Auto Urine SS UA Protein 100 mg/dL Invalid Interpretation Code Negativemg /dL Auto Urine SS UA RBC Rare /HPF Invalid Interpretation Code 0-2/HPF AH Auto Urine SS UA Spec Grav >=1.030 *ABN* (07/08/21 7:46 PM) Invalid Interpretation Code Auto Urine SS UA Specimen Type Clean Catch (07/08/21 7:46 PM) Invalid Interpretation Code Auto Urine SS UA Squam Epithelial 5-10 /HPF Invalid Interpretation Code 0-20/HPF AH Auto Urine SS UA Transitional Epithelial 0-2 /HPF Invalid Interpretation Code Auto Urine SS UA Urobilinogen 2.0 E.U./dL Invalid Interpretation Code Auto Urine SS WBC LM.HPF (Urine sed) [#/Area] 5-10 /HPF Invalid Interpretation Code 0-5/HPF AH Auto Urine SS LABORATORYOrdered By: Delilah Howard on 2021 ER U Drug Screen Negative (07/08/21 7:46 PM) Invalid Interpretation Code Chemistry S ER U Drug Screen Interp Urine shows no evidence of drugs routinely screened. Invalid Interpretation Code Chemistry S U ER Drugs Screened: See Below (07/08/21 7:46 PM) Invalid Interpretation Code Chemistry S Acetaminophen [Mass/Vol] 2.6 ug/mL Invalid Interpretation Code 10.0 - 20.0 mcg/mL AH ADM SS ER Drug Screen (s) Positive *ABN* (07/08/21 6:47 PM) Invalid Interpretation Code Chemistry S ER Drug Screen Interp The serum shows ev idence of: _1. Acetaminophen Invalid Interpretation Code Chemistry S ER Serum Drugs Screened: See Below (07/08/21 6:47 PM) Invalid Interpretation Code Chemistry S Ethanol [Mass/Vol] mg/dL Invalid Interpretation Code ADM SS Salicylates [Mass/Vol] mg/dL Invalid Interpretation Code 10.0 - 25.0 mg/dL ADM SS Tricyclic antidepressants Screen Ql Negative Invalid Interpretation Code ADM SS LABORATORYOrdered By: SYSTEM SYSTEM on 2021 Albumin [Mass/Vol] 3.5 G/dL Invalid Interpretation Code 3.2 - 4.8 G/dL ADM SS Albumin/Globulin [Mass ratio] 1.1 {ratio} Invalid Interpretation Code 0.9 - 1.6 ratio ADM SS ALP [Catalytic activity/Vol] 53 U/L Invalid Interpretation Code 38 - 126 U/L ADM SS ALT [Catalytic activity/Vol] 22 U/L Invalid Interpretation Code 10 - 49 U/L ADM SS AST [Catalytic activity/Vol] 24 U/L Invalid Interpretation Code 8 - 34 U/L ADM SS Base excess Calc (BldMV) [Moles/Vol] 4.0 mEq/L Invalid Interpretation Code 4.0 - 15.0 mEq/L ADM SS Basophils (Bld) [#/Vol] 0.00 103/mcL Invalid Interpretation Code 0.00 - 0.27 10^3/mcL Remisol SS Basophils/100 WBC (Bld) 0.6 % Invalid Interpretation Code 0.0 - 2.5 % Remisol SS Bilirubin [Mass/Vol] 0.5 mg/dL Invalid Interpretation Code 0.2 - 1.2 mg/dL ADM SS Calcium [Mass/Vol] 9.1 mg/dL Invalid Interpretation Code 8.4 - 10.1 mg/dL ADM SS Chloride [Moles/Vol] 112 mmol/L Invalid Interpretation Code 98 - 110 mEq/L ADM SS CK [Catalytic activity/Vol] 367 U/L Invalid Interpretation Code 7 - 185 U/L ADM SS CO2 [Moles/Vol] 27 mmol/L Invalid Interpretation Code 22 - 32 mEq/L ADM SS Creatinine [Mass/Vol] 1.01 mg/dL Invalid Interpretation Code 0.50 - 1.20 mg/dL ADM SS Eosinophils (Bld) [#/Vol] 0.00 103/mcL Invalid Interpretation Code 0.00 - 0.65 10^3/mcL Remisol SS Eosinophils/100 WBC (Bld) 0.0 % Invalid Interpretation Code 0.0 - 6.0 % AH Remisol SS Erythrocyte distribution width (RBC) [Ratio] 13.4 % Invalid Interpretation Code 11.5 - 15.5 % AH Remisol SS GFR/1.73 sq M.predicted among blacks MDRD (S/P/Bld) [Vol rate/Area] ml/min/1.73sqm Invalid Interpretation Code AH ADM SS GFR/1.73 sq M.predicted among non-blacks MDRD (S/P/Bld) [Vol rate/Area] 60 ml/min/1.73sqm Invalid Interpretation Code AH ADM SS Globulin (S) [Mass/Vol] 3.3 G/dL Invalid Interpretation Code 1.5 - 3.8 G/dL AH ADM SS Glucose [Mass/Vol] 88 mg/dL Invalid Interpretation Code 70 - 110 mg/dL AH ADM SS Hematocrit (Bld) [Volume fraction] 43.6 % Invalid Interpretation Code 34.0 - 46.0 % AH Remisol SS Hemoglobin (Bld) [Mass/Vol] 14.5 G/dL Invalid Interpretation Code 12.0 - 16.0 G/dL AH Remisol SS Lymphocytes (Bld) [#/Vol] 2.00 103/mcL Invalid Interpretation Code 0.90 - 4.32 10^3/mcL AH Remisol SS Lymphocytes/100 WBC (Bld) 27.7 % Invalid Interpretation Code 20.0 - 40.0 % AH Remisol SS MCH (RBC) [Entitic mass] 30.4 pg Invalid Interpretation Code 27.0 - 33.0 pg AH Remisol SS MCHC (RBC) [Mass/Vol] 33.2 G/dL Invalid Interpretation Code 32.0 - 36.0 G/dL AH Remisol SS MCV (RBC) [Entitic vol] 91.5 fL Invalid Interpretation Code 80.0 - 99.0 fL AH Remisol SS Monocytes (Bld) [#/Vol] 0.80 103/mcL Invalid Interpretation Code 0.09 - 1.40 10^3/mcL AH Remisol SS Monocytes/100 WBC (Bld) 11.7 % Invalid Interpretation Code 2.0 - 13.0 % AH Remisol SS Neutrophils (Bld) [#/Vol] 4.30 103/mcL Invalid Interpretation Code 2.25 - 8.10 10^3/mcL AH Remisol SS Neutrophils/100 WBC (Bld) 60.0 % Invalid Interpretation Code 50.0 - 75.0 % AH Remisol SS Platelet mean volume (Bld) [Entitic vol] 8.1 fL Invalid Interpretation Code 6.6 - 10.5 fL AH Remisol SS Platelets (Bld) [#/Vol] 206 103/mcL Invalid Interpretation Code 150 - 450 10^3/mcL AH Remisol SS Potassium [Moles/Vol] 4.0 mmol/L Invalid Interpretation Code 3.5 - 5.0 mEq/L AH ADM SS Protein [Mass/Vol] 6.8 G/dL Invalid Interpretation Code 6.0 - 8.5 G/dL AH ADM SS RBC (Bld) [#/Vol] 4.76 106/mcL Invalid Interpretation Code 4.10 - 5.30 10^6/mcL AH Remisol SS Sodium [Moles/Vol] 143 mmol/L Invalid Interpretation Code 136 - 145 mEq/L AH ADM SS Troponin I.cardiac DL <= 0.01 ng/mL [Mass/Vol] ng/L Invalid Interpretation Code 0.00 - 34.00 ng/L AH ADM SS Urea nitrogen [Mass/Vol] 9.0 mg/dL Invalid Interpretation Code 8.0 - 22.0 mg/dL AH ADM SS Urea nitrogen/Creatinine [Mass ratio] 8.9 ratio Invalid Interpretation Code 10.0 - 22.0 ratio AH ADM SS WBC (Bld) [#/Vol] 7.20 103/mcL Invalid Interpretation Code 4.50 - 10.80 10^3/mcL AH Remisol SS LABORATORYOrdered By: Eh Jon on 2021 Date of Onset [id number] Invalid Interpretation Code AH Auto Viro/Sero SS Employed in Healthcare No (07/08/21 6:42 PM) Invalid Interpretation Code AH Auto Viro/Sero SS First Test Unknown (07/08/21 6:42 PM) Invalid Interpretation Code AH Auto Viro/Sero SS FLU A PCR Negative 2 (07/08/21 6:42 PM) Invalid Interpretation Code Negative AH Auto Viro/Sero SS Comment on above: Result Comment: [place] [id number] FLU B PCR Negative 3 (07/08/21 6:42 PM) Invalid Interpretation Code Negative AH Auto Viro/Sero SS Comment on above: Result Comment: [place] [id number] Hospitalized Unknown (07/08/21 6:42 PM) Invalid Interpretation Code AH Auto Viro/Sero SS ICU No (07/08/21 6:42 PM) Invalid Interpretation Code AH Auto Viro/Sero SS Not (07/08/21 6:42 PM) Invalid Interpretation Code AH Auto Viro/Sero SS Resides in Congregate Care Setting Yes (07/08/21 6:42 PM) Invalid Interpretation Code AH Auto Viro/Sero SS RSV PCR Negative 4 (07/08/21 6:42 PM) Invalid Interpretation Code Negative AH Auto Viro/Sero SS Comment on above: Result Comment: Note s [id number] SARS-CoV-2 (COVID-19) RNA MACIE+probe Ql (Unsp spec) Negative 1 (07/08/21 6:42 PM) Invalid Interpretation Code Negative AH Auto Viro/Sero SS Comment on above: Result Comment: [place] s [id number] Symptomatic as Defined by CDC Yes (07/08/21 6:42 PM) Invalid Interpretation Code AH Auto Viro/Sero SS No Panel Informationon 07-08 Microscopic examination of blood, culture Culture has been received in lab and is no growth to date. Routine cultures are held for 5 days. [facility] Work Phone: LABORATORYOrdered By: Lea cueva on 07-03-2021 Appearance (U) Clear (07/03/21 9:50 PM) Invalid Interpretation Code AH Auto Urine SS Bacteria LM.HPF (Urine sed) [#/Area] 2 /[HPF] Invalid Interpretation Code Negative/H PF AH Auto Urine SS Bilirubin Ql (U) Negative (07/03/21 9:50 PM) Invalid Interpretation Code Neg-Trace AH Auto Urine SS Color (U) Yellow (07/03/21 9:50 PM) Invalid Interpretation Code AH Auto Urine SS Crystals.amorphous LM.HPF (Urine sed) [#/Area] 1 /[HPF] Invalid Interpretation Code AH Auto Urine SS Glucose Test strip (U) [Mass/Vol] Negative Invalid Interpretation Code Negativemg /dL AH Auto Urine SS Hemoglobin Auto test strip (U) [Mass/Vol] Trace (07/03/21 9:50 PM) Invalid Interpretation Code Neg-Trace AH Auto Urine SS Ketones Ql (U) 40 mg/dL Invalid Interpretation Code Neg-Tracem g/dL AH Auto Urine SS UA Leuk Est Trace (07/03/21 9:50 PM) Invalid Interpretation Code Negative Auto Urine SS UA Mucous 2+ /HPF Invalid Interpretation Code AH Auto Urine SS UA Nitrite Negative (07/03/21 9:50 PM) Invalid Interpretation Code Negative AH Auto Urine SS UA pH 6.0 (07/03/21 9:50 PM) Invalid Interpretation Code 5.0 - 8.0 AH Auto Urine SS UA Protein 30 mg/dL Invalid Interpretation Code Negativemg /dL AH Auto Urine SS UA RBC 3-5 /HPF Invalid Interpretation Code 0-2/HPF AH Auto Urine SS UA Spec Grav >=1.030 *ABN* (07/03/21 9:50 PM) Invalid Interpretation Code Auto Urine SS UA Specimen Type Clean Catch (07/03/21 9:50 PM) Invalid Interpretation Code Auto Urine SS UA Squam Epithelial 3-5 /HPF Invalid Interpretation Code 0-20/HPF AH Auto Urine SS UA Urobilinogen >=8.0 E.U./dL Invalid Interpretation Code AH Auto Urine SS WBC LM.HPF (Urine sed) [#/Area] 5-10 /HPF Invalid Interpretation Code 0-5/HPF Auto Urine SS SCon 07-03-2021 [facility] RE[facility] Normal [facility] DATE OF SERVICE: CHIEF COMPLAINT: Dysuria HISTORY OF PRESENT ILLNESS: A 45-year-old female presenting with dysuria, urinary frequency and confusion. She is MRDD. Unable to urinate in the last day and a half. ALLERGIES: None. MEDICATIONS: Patient is on: 1. Risperdal. 2. Ditropan. 3. Lorazepam. 4. Desyrel. 5. Cogentin. 6. Depakote. . 7 Neurontin. PHYSICAL EXAMINATION: Blood pressure 146/79, pulse 115, respiratory rate 18, temperature 98.4, pulse ox 92%. Pain is 5/10. HEENT within normal limits. Lungs are within normal limits. Abdomen is soft. Diffuse tenderness noted. Bilateral tenderness. [facility] PATIENT NAME: SHARLA JOINER [address] [place] MEDICAL REC #: [id number] [place] [address] [facility] REPORT [facility] PHYSICIAN ASSESSMENT: 1. urinary incontinence and blockage. 2. Dysuria. PLAN: Further treatment and evaluation is warranted. Will send her to the ER.Discussed with the patient treatments and plans. I discussed with the patient's caregiver. Jason Abarca MD [id number] SSI File#: [id number] END OF DOCUMENT / CHANGE LOG FOLLOWS Last Edited By [employer]. Signed By Jason Abarca MD #Jason Alonzo MD #JOSE FRANCISCO on 07/31/2021 09:54 ET on 07/31/2021 09:54 ET Revision Number - 2 Verified/Reviewed by [facility] PATIENT NAME: SHARLA JOINER [address] [place] MEDICAL REC #: [id number] [place] [address] [facility] RE[facility] PHYSICIAN 07/31/21 0955 JOSE FRANCISCO [facility] PATIENT NAME: SHARLA JOINER [address] [place] MEDICAL REC #: [id number] [place] [address] [facility] RE[facility] PHYSICIAN Normal [facility] URINE CULTUREon 07-03-2021 Bacteria identified Cx Nom (U) This report has been cancelled [facility] Comment on above: Order Comment: PATIE NT COULD NOT VOID URINE CULTUREon 01-03-2021 Bacteria identified Cx Nom (U) URINE RESULT 40-50,000 COL/ML MIXED HAILEY-PLEASE REPEAT-POSSIBLE CONTAMIN [facility] Comment on above: Order Comment: Campu s: NC Performed By: #### M [id number] #### [place] [address] PH# [phone] DIPSTICKon 01-02-2021 POC APPEARANCE CLEAR Normal CLEAR [facility] Comment on above: Order Comment: Campu s: NC Performed By: #### L [id number] #### [place] [address] PH# [phone] POC BILIRUBIN Negative Normal NEGATIVE [facility] Comment on above: Order Comment: Campu s: NC Performed By: #### L [id number] #### [place] [address] PH# [phone] POC BLOOD Negative Normal NEGATIVE [facility] Comment on above: Order Comment: Campu [place]: [place] Performed By: #### L [id number] #### [place] [address] PH# [phone] POC COLOR STRAW Normal [facility] Comment on above: Order Comment: [place]: [place] Performed By: #### L [id number] #### [address] [place] [address] PH# [phone] POC KETONE Negative Normal NEGATIVE [facility] Comment on above: Order Comment: [place]: [place] Performed By: #### L [id number] #### [address] [place] [address] PH# [phone] POC LEUK EST Negative Normal NEGATIVE [facility] Comment on above: Order Comment: [place]: [place] Performed By: #### L [id number] #### [place] [address] PH# [phone] POC NITRITE Negative Normal NEGATIVE [facility] Comment on above: Order Comment: [place]: [place] Performed By: #### L 600.81031 #### [place] [address] PH# [phone] POC PROTEIN Negative Normal NEGATIVE [facility] Comment on above: Order Comment: [place]: [place] Performed By: #### L [id number] #### [place] [address] PH# [phone] POC SPEC GRAV 1.005 Normal 1.005-1.03 0 [facility] Comment on above: Order Comment: [place]: [place] Performed By: #### L [id number] #### [place] [address] PH# [phone] POC UA GLUCOSE NORMAL Normal NORMAL [facility] Comment on above: Order Comment: [place]: [place] Performed By: #### L 600.53073 #### [place] [address] PH# [phone] POC UA PH 6.5 Normal 5-6 [facility] Comment on above: Order Comment: [place]: [place] Performed By: #### L [id number] #### [address]# [phone] POC UROBIL NORMAL Normal NORMAL [facility] Comment on above: Order Comment: [place] s: [place] Performed By: #### L [id number] #### [address] [place] [address] PH# [phone] [facility] 01-02-2021 [facility] RE[facility] Normal [facility] DATE OF SERVICE: CHIEF COMPLAINT: Dysuria. HISTORY OF PRESENT ILLNESS: A 45-year-old female presenting here with dysuria and frequency going on for 2 days. No other complaints. The patient is MRDD. She complains of some dysuria, and usually her mood changes when she has a UTI per caregiver. DRUG ALLERGIES: None. MEDICATION: 1. Lorazepam. 2. Ditropan. 3. Risperdal. 4. . 5. Cogentin. 6. Depakote. 7. Neurontin. PHYSICAL EXAMINATION: Blood pressure is 123/73, pulse 78, respiratory rate 16, temperature 96.4, pulse oximetry 97%. The patient appears to be in no distress. HEENT: Within normal limits. Lungs and Heart: Within normal [facility] PATIENT NAME: [facility] REC #: [id number] [place] [address] [facility] REPORT [facility] PHYSICIAN limits. No CV angle tenderness. TESTS: UA done was negative. ASSESSMENT: Dysuria and behavioral changes. PLAN: Discussed with the patient's caregiver treatments and plan. Have the patient follow up with her psychiatrist. Reassuring at this time the UA is negative. We will send up the urine out for culture. Treatments and plans thoroughly discussed. Jason Abarca MD [id number] SSI File#: [id number] END OF DOCUMENT / CHANGE LOG FOLLOWS Last Edited By Elec. Signed By Jason Abarca MD #Jason Alonzo MD #JOSE FRANCISCO on 01/08/2021 09:03 ET on 01/08/2021 09:03 ET Revision Number - 2 [facility] PATIENT NAME: SHARLA JOINER Marques Schmitz [facility] MED[facility] REC #: [id number] [place] [address] [facility] REPORT [facility] PHYSICIAN Verified/Reviewed by 01/08/21 Mame FELTON [facility] PATIENT NAME: SHARLA JOINER CarlitaAngelica Janny Shields MEDICAL REC #: [id number] [place] [address] [facility] REPORT [facility] PHYSICIAN Normal [facility] Vital Signs Date Time Vital Sign Value Performing Clinician Facility 02-20-2025 11:11-0400 Body height 170.[address] Quincy Rocha Work Phone: [facility] 12-25-2024 20:00-0400 Diastolic blood pressure 64 mm[Hg] Dr. Quincy Rocha Work Phone: 3(521)481-220478 [place] [address] 12-25-2024 20:00-0400 Heart rate 88 /min Dr. Quincy Rocha Work Phone: 1(698)714-404378 [place] [address] 12-25-2024 20:00-0400 SaO2% (BldA) [Mass fraction] 94 % Dr. Quincy Rocha Work Phone: 2(668)607-280378 [place] [address] 12-25-2024 20:00-0400 Systolic blood pressure 119 mm[Hg] Dr. Quincy Rocha Work Phone: 5(621)730-538478 [place] [address] 12-25-2024 19:46-0400 Body temperature 98.6 [degF] Dr. Quincy Rocha Work Phone: 8(523)851-119978 [place] [address] 12-25-2024 19:46-0400 Respiratory rate 14 /min Dr. Quincy Rocha Work Phone: 2(044)916-551478 [place] [address] 12-25-2024 12:29-0400 Body height 170.[address] Quincy Rocha Work Phone: 0(756)352-306278 [place] [address] 12-25-2024 12:29-0400 Body mass index (BMI) [Ratio] 24.2 kg/m2 Dr. Quincy Rocha Work Phone: 5(484)601-978578 [place] [address] 12-25-2024 12:29-0400 Body weight 70.[address] Quincy Rocha Work Phone: 3(567)333-328778 [place] [address] 07-26-2024 12:09-0500 Body temperature 97.7 [degF] SHAMIKA EARLY MD [facility] 07-26-2024 12:09-0500 Body weight 66.8 kg SHAMIKA EARLY MD [facility] 07-26-2024 12:09-0500 Diastolic Blood Pressure Non-Invasive 75 mm[Hg] SHAMIKA EARLY MD [facility] 07-26-2024 12:09-0500 Heart rate 85 /min SHAMIKA EARLY MD [facility] 07-26-2024 12:09-0500 Respiratory rate 16 /min SHAMIKA EARLY MD [facility] 07-26-2024 12:09-0500 Systolic Blood Pressure Non-Invasive 130 mm[Hg] SHAMIKA EARLY MD [address] [place] [address] 04-09-2024 17:23-0400 Body mass index (BMI) [Ratio] 22.08 kg/m2 Bob Caldwell APRN.CASE MANAGEMENT ASSISTANT Work Phone: [facility] 04-09-2024 17:23-0400 Body temperature 98.29 [degF] Bob Caldwell APRN.CASE MANAGEMENT ASSISTANT Work Phone: [facility] 04-09-2024 17:23-0400 Body weight 63.96 kg Bob Caldwell APRN.CASE MANAGEMENT ASSISTANT Work Phone: [facility] 04-09-2024 17:23-0400 Diastolic blood pressure 84 mm[Hg] Bob Caldwell APRN.CASE MANAGEMENT ASSISTANT Work Phone: [facility] 04-09-2024 17:23-0400 Heart rate 88 /min Bob Caldwell APRN.CASE MANAGEMENT ASSISTANT Work Phone: [facility] 04-09-2024 17:23-0400 Respiratory rate 16 /min Bob Caldwell APRN.CASE MANAGEMENT ASSISTANT Work Phone: [facility] 04-09-2024 17:23-0400 SaO2% (BldA) [Mass fraction] 98 % Bob Caldwell APRN.CASE MANAGEMENT ASSISTANT Work Phone: [facility] 04-09-2024 17:23-0400 Systolic blood pressure 133 mm[Hg] Bob Caldwell APRN.CASE MANAGEMENT ASSISTANT Work Phone: [facility] 03-26-2024 15:31-0400 Diastolic blood pressure 80 mm[Hg] Luci Shah MD Work Phone: [employer] 03-26-2024 15:31-0400 Heart rate 88 /min Luci Shah MD Work Phone: [employer] 03-26-2024 15:31-0400 Respiratory rate 18 /min Luci Shah MD Work Phone: [employer] 03-26-2024 15:31-0400 SaO2% (BldA) [Mass fraction] 95 % Luci Shah MD Work Phone: [employer] 03-26-2024 15:31-0400 Systolic blood pressure 137 mm[Hg] Luci Shah MD Work Phone: [employer] 03-26-2024 11:00-0400 Body mass index (BMI) [Ratio] 22.71 kg/m2 Luci Shah MD Work Phone: [employer] 03-26-2024 11:00-0400 Body weight 65.77 kg Luci Shah MD Work Phone: [employer] 03-26-2024 10:57-0400 Body temperature 97.81 [degF] Luci Shah MD Work Phone: [employer] 03-24-2024 22:47-0400 Heart rate 103 /min Desirae DroneDeploy Work Phone: [employer] 03-24-2024 22:47-0400 Respiratory rate 16 /min Desirae [employer] Work Phone: [employer] 03-24-2024 22:47-0400 SaO2% (BldA) [Mass fraction] 97 % Desirae [employer] Work Phone: [employer] 03-24-2024 21:11-0400 Body height 170.2 cm Desirae Eusebia Work Phone: [employer] 03-24-2024 21:11-0400 Body mass index (BMI) [Ratio] 22.71 kg/m2 Desirae [employer] Work Phone: [facility] 03-24-2024 21:11-0400 Body temperature 97.3 [degF] Desirae Rosario Work Phone: [facility] 03-24-2024 21:11-0400 Body weight 65.77 kg Desirae Rosario Work Phone: [facility] 03-24-2024 21:11-0400 Diastolic blood pressure 102 mm[Hg] Desirae Rosario Work Phone: [facility] 03-24-2024 21:11-0400 Systolic blood pressure 153 mm[Hg] Desirae Rosario Work Phone: [facility] 03-16-2024 17:01-0400 Body mass index (BMI) [Ratio] 22.24 kg/m2 Arline Guillermo PA-C Work Phone: [facility] 03-16-2024 17:01-0400 Body temperature 99.5 [degF] Arline Guillermo PA-C Work Phone: [facility] 03-16-2024 17:01-0400 Body weight 64.41 kg Arline Guillermo PA-C Work Phone: [facility] 03-16-2024 17:01-0400 Diastolic blood pressure 81 mm[Hg] Arline Guillermo PA-C Work Phone: [facility] 03-16-2024 17:01-0400 Heart rate 100 /min Arline Guillermo PA-C Work Phone: [facility] 03-16-2024 17:01-0400 Respiratory rate 15 /min Arline Dotyky PA-C Work Phone: [facility] 03-16-2024 17:01-0400 SaO2% (BldA) [Mass fraction] 96 % Arline Guillermo PA-C Work Phone: [facility] 03-16-2024 17:01-0400 Systolic blood pressure 126 mm[Hg] Arline Guillermo PA-C Work Phone: [facility] 12-23-2023 11:42-0400 Body temperature 98.8 [degF] Corral Addison DO Work Phone: [facility] [employer] 12-23-2023 11:42-0400 Diastolic blood pressure 85 mm[Hg] Corral Addison DO Work Phone: [facility] [employer] 12-23-2023 11:42-0400 Heart rate 81 /min Corral Addison DO Work Phone: [facility] 12-23-2023 11:42-0400 Respiratory rate 18 /min Corral Addison DO Work Phone: [facility] 12-23-2023 11:42-0400 SaO2% (BldA) [Mass fraction] 98 % Corral Addison DO Work Phone: [facility] [employer] 12-23-2023 11:42-0400 Systolic blood pressure 145 mm[Hg] Corral Addison DO Work Phone: [facility] 11-24-2023 15:55-0400 Body mass index (BMI) [Ratio] 20.18 kg/m2 Isa Josh-Eibara ASSET COORDINATOR.CASE MANAGEMENT ASSISTANT Work Phone: [facility] 11-24-2023 15:55-0400 Body temperature 98.29 [degF] Sia Josh-Eibara ASSET COORDINATOR.CASE MANAGEMENT ASSISTANT Work Phone: [facility] 11-24-2023 15:55-0400 Body weight 56.7 kg Sia Josh-Eibara ASSET COORDINATOR.CASE MANAGEMENT ASSISTANT Work Phone: [facility] 11-24-2023 15:55-0400 Heart rate 94 /min Sia Josh-Eibara ASSET COORDINATOR.CASE MANAGEMENT ASSISTANT Work Phone: [facility] 11-24-2023 15:55-0400 Respiratory rate 18 /min Sia Josh-Eibara ASSET COORDINATOR.CASE MANAGEMENT ASSISTANT Work Phone: [facility] 11-24-2023 15:55-0400 SaO2% (BldA) [Mass fraction] 98 % Sia Weinstein APRN.CASE MANAGEMENT ASSISTANT Work Phone: [facility] 08-11-2023 17:51-0500 Body weight 60.24 kg Johnathon Rivas DO Work Phone: [facility] [employer] 08-11-2023 17:46-0500 Body temperature 98.2 [degF] Laurigladis Erhard DO Work Phone: [facility] [employer] 08-11-2023 17:46-0500 Diastolic blood pressure 85 mm[Hg] Laurigladis Erhard DO Work Phone: [facility] [employer] 08-11-2023 17:46-0500 Heart rate 71 /min Laurigladis Skyla DO Work Phone: [facility] [employer] 08-11-2023 17:46-0500 Respiratory rate 18 /min Frankihilda Erhard DO Work Phone: [facility] [employer] 08-11-2023 17:46-0500 SaO2% (BldA) [Mass fraction] 97 % Johnathon Rivas DO Work Phone: [facility] [employer] 08-11-2023 17:46-0500 Systolic blood pressure 134 mm[Hg] Laurigladis Erhard DO Work Phone: [facility] 05-28-2023 16:28-0500 Body temperature 97.34 [degF] DR MICHELE JACKSON DO [facility] 05-28-2023 16:28-0500 Diastolic Blood Pressure Non-Invasive [address] MICHELE JACKSON DO [facility] 05-28-2023 16:28-0500 Heart rate 75 /min DR MICHELE JACKSON DO [facility] 05-28-2023 16:28-0500 Respiratory rate 16 /min DR MICHELE JACKSON DO [facility] 05-28-2023 16:28-0500 Systolic Blood Pressure Non-Invasive [address] MICHELE JACKSON DO [facility] 05-28-2023 12:41-0500 Body weight 57.[address] MICHELE JACKSON DO [facility] 05-28-2023 12:41-0500 Diastolic Blood Pressure Non-Invasive [address] MICHELE JACKSON DO [facility] 05-28-2023 12:41-0500 Heart rate 79 /min DR MICHELE JACKSON DO [facility] 05-28-2023 12:41-0500 Respiratory rate 17 /min DR MICHELE JACKSON DO [facility] 05-28-2023 12:41-0500 Systolic Blood Pressure Non-Invasive [address] MICHELE JACKSON DO [facility] 05-28-2023 10:06-0500 Body temperature 98.71 [degF] Jason Abarca MD Work Phone: [facility] 05-28-2023 10:06-0500 Body weight 56.7 kg Jason Abarca MD Work Phone: [facility] 05-28-2023 10:06-0500 Diastolic blood pressure 88 mm[Hg] Jason Abarca MD Work Phone: [facility] 05-28-2023 10:06-0500 Heart rate 77 /min Jason Abarca MD Work Phone: [facility] 05-28-2023 10:06-0500 Respiratory rate 16 /min Jason Abarca MD Work Phone: [facility] 05-28-2023 10:06-0500 SaO2% (BldA) [Mass fraction] 98 % Jason Abarca MD Work Phone: [facility] 05-28-2023 10:06-0500 Systolic blood pressure 129 mm[Hg] Jason Abarca MD Work Phone: [facility] 01-15-2023 15:05-0400 Body temperature 98.6 [degF] PARI LARSEN MD FACP [address] [place] [address] 01-15-2023 15:05-0400 Diastolic Blood Pressure Non-Invasive 68 1 PARI LARSEN MD FACP [address] [place] [address] 01-15-2023 15:05-0400 Heart rate 60 /min PARI LARSEN MD FACP [address] [place] [address] 01-15-2023 15:05-0400 Reason For Taking VItal Signs PARI LARSEN MD FACP [address] [place] [address] 01-15-2023 15:05-0400 Respiratory rate 18 /min PARI LARSEN MD FACP [address] [place] [address] 01-15-2023 15:05-0400 Systolic Blood Pressure Non-Invasive 124 1 PARI LARSEN MD FACP [address] [place] [address] 01-15-2023 10:20-0400 Blood Pressure Cuff Size PARI LARSEN MD FACP [address] [place] [address] 01-15-2023 10:20-0400 Blood Pressure Location PARI LARSEN MD FACP [address] [place] [address] 01-15-2023 10:20-0400 Blood Pressure Method PARI LARSEN MD FACP [address] [place] [address] 01-15-2023 10:20-0400 Body temperature 98.42 [degF] PARI LARSEN MD FACP [address] [place] [address] 01-15-2023 10:20-0400 Diastolic Blood Pressure Non-Invasive 45 1 PARI LARSEN MD FACP [address] [place] [address] 01-15-2023 10:20-0400 Heart rate 63 /min PARI LARSEN MD FACP [address] [place] [address] 01-15-2023 10:20-0400 Reason For Taking VItal Signs PARI LARSEN MD FACP [address] [place] [address] 01-15-2023 10:20-0400 Respiratory rate 22 /min PARI LARSEN MD FACP [address] [place] [address] 01-15-2023 10:20-0400 Systolic Blood Pressure Non-Invasive 88 1 PARI LARSEN MD FACP [address] [place] [address] 01-15-2023 06:20-0400 Body temperature 99.5 [degF] PARI LARSEN MD FACP [address] [place] [address] 01-15-2023 06:20-0400 Diastolic Blood Pressure Non-Invasive 33 1 PARI LARSEN MD FACP [address] [place] [address] 01-15-2023 06:20-0400 Heart rate 47 /min PARI LARSEN MD FACP [address] [place] [address] 01-15-2023 06:20-0400 Respiratory rate 18 /min PARI LARSEN MD FACP [address] [place] [address] 01-15-2023 06:20-0400 Systolic Blood Pressure Non-Invasive 82 1 PARI LARSEN MD FACP [address] [place] [address] 01-14-2023 23:43-0400 Reason For Taking VItal Signs PARI LARSEN MD FACP [address] [place] [address] 01-14-2023 17:31-0400 Blood Pressure Cuff Size PARI LARSEN MD FACP [address] [place] [address] 01-14-2023 17:31-0400 Blood Pressure Location PARI LARSEN MD FACP [address] [place] [address] 01-14-2023 17:31-0400 Blood Pressure Method PARI LARSEN MD FACP [address] [place] [address] 01-14-2023 17:31-0400 Heart rate 70 /min PARI LARSEN MD FACP [address] [place] [address] 01-14-2023 14:32-0400 Blood Pressure Cuff Size PARI LARSEN MD FACP [address] [place] [address] 01-14-2023 14:32-0400 Blood Pressure Location PARI LARSEN MD FACP [address] [place] [address] 01-14-2023 14:32-0400 Blood Pressure Method PARI LARSEN MD FACP [address] [place] [address] 01-14-2023 14:32-0400 Heart rate 58 /min PARI LARSEN MD FACP [address] [place] [address] 01-14-2023 10:37-0400 Heart rate 52 /min PARI LARSEN MD FACP [address] [place] [address] 01-13-2023 23:34-0400 Mean blood pressure 59 mm[Hg] PARI LARSEN MD FACP [address] [place] [address] 01-12-2023 03:00-0400 Heart rate 85 /min PARI LARSEN MD FACP [address] [place] [address] 01-11-2023 10:22-0400 Body temperature 98.06 [degF] PARI LARSEN MD FACP [address] [place] [address] 01-11-2023 07:57-0400 Body temperature 97.7 [degF] PARI LARSEN MD FACP [address] [place] [address] 01-11-2023 06:52-0400 Body temperature 99.5 [degF] PARI LARSEN MD FACP [address] [place] [address] 01-06-2023 15:37-0400 Mean blood pressure 74 mm[Hg] PARI LARSEN MD FACP [address] [place] [address] 01-05-2023 14:35-0400 Body height 170.2 cm PARI LARSEN MD FACP [address] [place] [address] 01-05-2023 14:35-0400 Body weight 57.1 kg PARI LARSEN MD FACP [address] [place] [address] 01-05-2023 14:35-0400 Body weight 19.71 kg/m2 PARI LARSEN MD FACP [address] [place] [address] 01-05-2023 13:40-0400 Body temperature 98.24 [degF] PARI LARSEN MD FACP [address] [place] [address] 01-05-2023 13:40-0400 Mean blood pressure 74 mm[Hg] PARI LARSEN MD FACP [address] [place] [address] 01-05-2023 13:27-0400 Body temperature 98.24 [degF] PARI LARSEN MD FACP [address] [place] [address] 01-05-2023 12:27-0400 Body temperature 97.88 [degF] PARI LARSEN MD FACP [address] [place] [address] 01-05-2023 12:25-0400 Respiratory Rate - Anes 0 br/min PARI LARSEN MD FACP [address] [place] [address] 01-05-2023 12:20-0400 Respiratory Rate - Anes 20 br/min PARI LARSEN MD FACP [address] [place] [address] 01-05-2023 12:15-0400 Body temperature 98.6 [degF] PARI LARSEN MD FACP [address] [place] [address] 01-05-2023 12:15-0400 Respiratory Rate - Anes 10 br/min PARI LARSEN MD FACP [address] [place] [address] 01-05-2023 12:10-0400 Body temperature 98.6 [degF] PARI LARSEN MD FACP [address] [place] [address] 01-05-2023 12:05-0400 Body temperature 98.6 [degF] PARI LARSEN MD FACP [address] [place] [address] 01-04-2023 18:40-0400 Body weight 57.1 kg PARI LARSEN MD FACP [address] [place] [address] 12-14-2022 13:42-0400 Body temperature 97.3 [degF] Floyd Donald DO Work Phone: [facility] 12-14-2022 13:42-0400 Body weight 56.7 kg Floyd Shabana DO Work Phone: [facility] 12-14-2022 13:42-0400 Diastolic blood pressure 52 mm[Hg] Floyd Shabana DO Work Phone: [facility] 12-14-2022 13:42-0400 Heart rate 81 /min [place] Shabana DO Work Phone: [facility] 12-14-2022 13:42-0400 Respiratory rate 20 /min Floyd Shabana DO Work Phone: [facility] 12-14-2022 13:42-0400 SaO2% (BldA) [Mass fraction] 97 % Floyd Shabana DO Work Phone: [facility] 12-14-2022 13:42-0400 Systolic blood pressure 113 mm[Hg] [place] Shabana DO Work Phone: [facility] 11-10-2022 11:32-0400 Body height 167.6 cm Giuliana Carson ASSET COORDINATOR.CASE MANAGEMENT ASSISTANT Work Phone: [facility] 11-10-2022 11:32-0400 Body weight 61.24 kg Giuliana Carson ASSET COORDINATOR.CASE MANAGEMENT ASSISTANT Work Phone: [facility] 08-28-2022 14:46-0500 Body temperature 97.7 [degF] FRANSISCO PERRY MD [facility] 08-28-2022 14:46-0500 Diastolic Blood Pressure Non-Invasive 60 1 FRANSISCO PERRY MD [facility] 08-28-2022 14:46-0500 Heart rate 73 /min FRANSISCO PERRY MD [facility] 08-28-2022 14:46-0500 Respiratory rate 18 /min FRANSISCO PERRY MD [facility] 08-28-2022 14:46-0500 Systolic Blood Pressure Non-Invasive 92 1 FRANSISCO PERRY MD [address] [place] [address] 08-28-2022 07:22-0500 Body temperature 97.34 [degF] FRANSISCO PERRY MD [address] [place] [address] 08-28-2022 07:22-0500 Diastolic Blood Pressure Non-Invasive 58 1 FRANSISCO PERRY MD [address] [place] [address] 08-28-2022 07:22-0500 Heart rate 90 /min FRANSISCO PERRY MD [address] [place] [address] 08-28-2022 07:22-0500 Respiratory rate 16 /min FRANSISCO PERRY MD [address] [place] [address] 08-28-2022 07:22-0500 Systolic Blood Pressure Non-Invasive 135 1 FRANSISCO PERRY MD [address] [place] [address] 08-27-2022 21:31-0500 Heart rate 100 /min FRANSISCO PERRY MD [address] [place] [address] 08-27-2022 21:31-0500 Respiratory rate 16 /min FRANSISCO PERRY MD [address] [place] [address] 08-27-2022 21:12-0500 Body temperature 97.7 [degF] FRANSISCO PERRY MD [address] [place] [address] 08-27-2022 21:12-0500 Diastolic Blood Pressure Non-Invasive 71 1 FRANSISCO PERRY MD [address] [place] [address] 08-27-2022 21:12-0500 Heart rate 107 /min FRANSISCO PERRY MD [address] [place] [address] 08-27-2022 21:12-0500 Systolic Blood Pressure Non-Invasive 136 1 FRANSISCO PERRY MD [address] [place] [address] 08-26-2022 07:39-0500 Heart rate 76 /min FRANSISCO PERRY MD [address] [place] [address] 08-26-2022 07:39-0500 Reason For Taking VItal Signs FRANSISCO PERRY MD [address] [place] [address] 08-25-2022 20:37-0500 Reason For Taking VItal Signs FRANSISCO PERRY MD [facility] 08-25-2022 14:44-0500 Reason For Taking VItal Signs FRANSISCO PERRY MD [facility] 08-23-2022 22:54-0500 Heart rate 92 /min ANS [place] WILLIAM [facility] 08-23-2022 19:01-0500 Heart rate 91 /min ANS [place] WILLIAM [facility] 08-23-2022 16:47-0500 Heart rate 76 /min FRANSISCO PERRY MD [facility] 07-15-2021 21:15-0500 Diastolic blood pressure 64 mm[Hg] MAIK DOVER MD [facility] 07-15-2021 21:15-0500 Heart rate 74 /min MAIK DOVER MD [facility] 07-15-2021 21:15-0500 Respiratory rate 18 /min MAIK DOVER MD [facility] 07-15-2021 21:15-0500 Systolic blood pressure 110 mm[Hg] MAIK DOVER MD [facility] 07-15-2021 19:17-0500 Diastolic blood pressure 72 mm[Hg] MAIK DOVER MD [facility] 07-15-2021 19:17-0500 Heart rate 102 /min MAIK DOVER MD [facility] 07-15-2021 19:17-0500 Reason For Taking VItal Signs MAIK DOVER MD [facility] 07-15-2021 19:17-0500 Respiratory rate 16 /min MAIK DOVER MD [facility] 07-15-2021 19:17-0500 Systolic blood pressure 116 mm[Hg] MAIK DOVER MD [facility] 07-15-2021 14:58-0500 Body temperature 96.98 [degF] MAIK DOVER MD [facility] 07-15-2021 14:58-0500 Diastolic blood pressure 85 mm[Hg] MAIK DOVER MD [facility] 07-15-2021 14:58-0500 Heart rate 80 /min MAIK DOVER MD [facility] 07-15-2021 14:58-0500 Respiratory rate 20 /min MAIK DOVER MD [facility] [facility] 07-15-2021 14:58-0500 Systolic blood pressure 126 mm[Hg] MAIK DOVER MD [facility] 07-15-2021 11:28-0500 Body temperature 98.42 [degF] MAIK DOVER MD [facility] 07-15-2021 11:28-0500 Body weight 73.7 kg MAIK DOVER MD [facility] 07-14-2021 13:26-0500 Body temperature 97.88 [degF] AMADOR KRAMER PA-C [facility] 07-14-2021 13:26-0500 Body weight 72 kg AMADOR KRAMER PA-C [facility] 07-14-2021 13:26-0500 Diastolic blood pressure 93 mm[Hg] AMADOR KRAMER PA-C [facility] 07-14-2021 13:26-0500 Heart rate 96 /min AMADOR KRAMER PA-C [facility] 07-14-2021 13:26-0500 Respiratory rate 18 /min AMADOR KRAMER PA-C [facility] 07-14-2021 13:26-0500 Systolic blood pressure 131 mm[Hg] AMADOR KRAMER PA-C [facility] 2021 15:59-0500 Body temperature 97.7 [degF] YINKA DIAZ MD [facility] 2021 15:59-0500 Diastolic blood pressure 75 mm[Hg] YINKA DIAZ MD [facility] 2021 15:59-0500 Heart rate 111 /min YINKA DIAZ MD [facility] 2021 15:59-0500 Mean blood pressure 94 mm[Hg] YINKA DIAZ MD [facility] 2021 15:59-0500 Respiratory rate 18 /min YINKA DIAZ MD [facility] 2021 15:59-0500 Systolic blood pressure 132 mm[Hg] YINKA DIAZ MD [facility] 07-03-2021 19:43-0500 Body temperature 99.5 [degF] MIGUEL ANGEL PARKER MD [facility] 07-03-2021 19:43-0500 Body weight 74.3 kg MIGUEL ANGEL PARKER MD [facility] 07-03-2021 19:43-0500 Diastolic blood pressure 80 mm[Hg] MIGUEL ANGEL PARKER MD [facility] 07-03-2021 19:43-0500 Heart rate 93 /min MIGUEL ANGEL PARKER MD [facility] 07-03-2021 19:43-0500 Respiratory rate 20 /min MIGUEL ANGEL PARKER MD [facility] 07-03-2021 19:43-0500 Systolic blood pressure 120 mm[Hg] MIGUEL ANGEL PARKER MD [facility] Encounters Encounter Date Encounter Type Care Provider Facility Start: 03-05-2025 End: 03-05-[address] Wojciech Gonzalez MD -[facility] Start: 03-05-2025 End: 03-05-[address] Quincy Rocha Work Phone: -[facility] Start: 12-27-2024 End: 01-07-2025 Evaluation and management of inpatient DESIRAE JONESSHER Facility:[id number] Start: 12-25-2024 End: 12-25-2024 Emergency department patient visit Dr. Quincy Rocha Work Phone: -Emergency Department Work Phone: Start: 12-03-2024 End: 12-20-2024 Evaluation and management of inpatient DESIRAE ROSARIO Facility:[id number] Start: 12-02-2024 End: 12-03-2024 Emergency department patient visit DESIRAE ROSARIO Facility:A Start: 10-16-2024 End: 10-16-2024 Emergency department patient visit GUSTAVO MOREAU MD Facility:A Start: 10-11-2024 End: 10-11-2024 Emergency department patient visit DESIRAE ROSARIO Facility:A Start: 09-13-2024 End: 09-14-2024 Emergency department patient visit DESIRAE ROSARIO Facility:A Start: 08-20-2024 End: 08-20-2024 Emergency department patient visit DESIRAE ROSARIO Facility:A Start: 08-18-2024 End: 08-18-2024 ambulatory DESIRAE ROSARIO MD Facility:A Start: 08-18-2024 End: 08-18-2024 Patient encounter procedure PHY WO ID REFERRING [facility] Start: 07-26-2024 End: 07-26-2024 Emergency department patient visit STORM MURRAY APRN-CASE MANAGEMENT ASSISTANT Facility:A Start: 07-26-2024 End: 07-26-2024 Emergency department patient visit SHAMIKA EARLY MD [facility] Start: 05-07-2024 End: 05-07-2024 Telephone encounter Lisette Jesus PA-C Work Phone: [facility] Comment on above: Missed Appointment ( 05/01/24 3:00 PM missed new patient appointment /) Start: 04-09-2024 End: 04-09-2024 Office outpatient visit 15 minutes Bob Caldwell APRN.CASE MANAGEMENT ASSISTANT Work Phone: [facility] [place] Comment on above: UTI symptoms (Primar y Dx) Start: 04-09-2024 End: 04-09-2024 ambulatory DESIRAE ROSARIO Facility:[id number] Start: 03-26-2024 End: 03-26-2024 Subsequent hospital visit by physician [facility] Ed Ct Exam Room [address] [facility] [address] Imaging Comment on above: Arrived Start: 03-26-2024 End: 03-26-2024 Emergency department patient visit Luci Shah MD Work Phone: [facility] Emergency Dept Comment on above: Abdominal pain, gene ralized (Primary Dx); Agitation; Autistic disorder Start: 03-24-2024 End: 03-24-2024 Emergency department patient visit DESIRAE ROSARIO [facility] Comment on above: Bilateral impacted c erumen (Primary Dx); Left otitis media, unspecified otitis media type Start: 03-16-2024 End: 03-16-2024 Patient encounter procedure Arline Guillermo PA-C Work Phone: [facility] Comment on above: Left otitis media, u nspecified otitis media type (Primary Dx) Start: 03-16-2024 End: 03-16-2024 ambulatory SELF Facility:[id number] Start: 01-25-2024 Telephone encounter Kymberly burgess DMD Work Phone: Dentistry Comment on above: Patient Update Start: 01-24-2024 End: 01-24-2024 Orders Only Israel Reis DMD Work Phone: Dentistry Start: 01-23-2024 Orders Only Lesa Rowland DDS Work Phone: Dentistry Comment on above: Facial cellulitis (P rimary Dx) Start: 01-23-2024 Patient encounter status Israel Chato DMD Work Phone: [facility] Work Phone: Start: 01-20-2024 End: 01-20-2024 Emergency department patient visit ZAID MARIE III Facility:[id number] Start: 01-17-2024 End: 01-17-2024 ambulatory [facility] Facility:[id number] Start: 01-17-2024 Encounter for dental examination and cleaning without abnormal findings [facility] Start: 01-17-2024 End: 01-17-2024 Patient encounter procedure Jeff Ambriz DDS Work Phone: Dentistry Comment on above: Encounter for dental examination (Primary Dx) Start: 01-17-2024 End: 01-17-2024 Patient encounter status Jeff Ambriz DDS Work Phone: [facility] Work Phone: Start: 12-29-2023 End: 12-29-2023 ambulatory DESIRAE ROSARIO MD Facility:A Start: 12-23-2023 End: 12-23-2023 Emergency department patient visit CORRAL EUSEBIA [facility] Comment on above: Dermatitis of ear ca nal, bilateral (Primary Dx); Impacted cerumen of right ear; Cerumen in auditory canal on examination Start: 11-25-2023 Patient encounter procedure [facility] Provider [facility] Department Start: 11-24-2023 End: 11-24-2023 Patient encounter procedure Sia Weinstein APRN.CASE MANAGEMENT ASSISTANT Work Phone: [facility] Comment on above: Hematuria, unspecifi ed type (Primary Dx); Ear pain, bilateral; Impacted cerumen of right ear Start: 08-11-2023 End: 08-11-2023 Subsequent hospital visit by physician [facility] Ed Ct Exam Room [facility] [address] Imaging Comment on above: Arrived Start: 08-11-2023 End: 08-11-2023 Emergency department patient visit Johnathon Rivas DO Work Phone: [facility] Comment on above: Head injury, initial encounter (Primary Dx) Start: 05-28-2023 End: 05-28-2023 Emergency department patient visit DR MICHELE JACKSON DO [facility] Start: 05-28-2023 End: 05-28-2023 Patient encounter procedure Jason Abarca MD Work Phone: [facility] Comment on above: Dysuria (Primary Dx) ; Cognitive and behavioral changes Start: 04-07-2023 ambulatory ZAID HERNÁNDEZ III Facility:[facility] Start: 04-07-2023 End: 04-07-2023 Subsequent hospital visit by physician Gi/Gu [facility] [place] [facility] Comment on above: Arrived Start: 01-04-2023 End: 01-15-2023 Evaluation and management of inpatient PARI LARSEN MD FACP [facility] Start: 12-14-2022 End: 12-14-2022 Office outpatient visit 15 minutes Floyd Donald Work Phone: [facility] Comment on above: Bite (Primary Dx) Start: 11-15-2022 End: 11-15-2022 Subsequent hospital visit by physician [facility] Comment on above: Gross hematuria [R31 .0] Start: 11-10-2022 End: 11-10-2022 Patient encounter procedure Giuliana Carson APRN.CASE MANAGEMENT ASSISTANT Work Phone: Urology Comment on above: Sensory urge inconti nence (Primary Dx); Gross hematuria Start: 10-29-2022 End: 10-29-2022 Subsequent hospital visit by physician [facility] [address] [facility] Comment on above: Pelvic and perineal pain [R10.2] Start: 08-23-2022 End: 08-28-2022 Evaluation and management of inpatient ANS ORLANDO WILLIAM [facility] Start: 07-15-2021 End: 07-15-2021 Emergency department patient visit MAIK DOVER MD [facility] Start: 07-14-2021 End: 07-14-2021 Emergency department patient visit AMADOR KRAMER PA-C [facility] Start: 2021 End: 2021 Emergency department patient visit YINKA DIAZ MD [facility] Start: 07-07-2021 Patient encounter procedure Jason Abarca MD Work Phone: [facility] Start: 07-07-2021 Progress Note Jason hardy MD Work Phone: [facility] Start: 07-03-2021 End: 07-03-2021 Emergency department patient visit MIGUEL ANGEL PARKER MD [facility] Start: 07-03-2021 End: 07-03-2021 Subsequent hospital visit by physician [facility] Provider [facility] Comment on above: URINARY BURNING,CONF USION Start: 05-19-2016 End: 05-20-2016 ambulatory PRAVEEN S KETTY [facility] Procedures Date Procedure Procedure Detail Performing Clinician Start: 12-25-2024 Urnls dip stick/tabl et reagent auto microscopy Dr. Quincy Clarke DO Work Phone: Start: 12-25-[address] Quincy Clarke DO Work Phone: Start: 12-25-[address] Quincy Clarke DO Work Phone: Start: 12-25-2024 CT of head without contrast Dr. Quincy Clarke DO Work Phone: Start: 12-25-2024 Plain chest X-ray Dr. Rickey Clarke DO Work Phone: Start: 04-09-2024 Urine test visual color cmprsn meths Bob Javi ASSET COORDINATOR.CASE MANAGEMENT ASSISTANT Work Phone: Start: 03-26-2024 Ct abdomen & pelvis w/o contrast material Leigha Siegel ASSET COORDINATOR - CASE MANAGEMENT ASSISTANT Work Phone: Start: 03-26-2024 SARS-COV-2, FLU A/B, AND RSV COMBO Leigha Siegel ASSET COORDINATOR - CASE MANAGEMENT ASSISTANT Work Phone: Start: 03-26-2024 Urinalysis complete panel - Urine Leigha Siegel ASSET COORDINATOR - CASE MANAGEMENT ASSISTANT Work Phone: Start: 03-26-2024 Urnls dip stick/tabl et reagent auto microscopy Leigha Siegel ASSET COORDINATOR - CASE MANAGEMENT ASSISTANT Work Phone: Start: 03-26-2024 Comprehensive metabo lic panel Leigha Siegel ASSET COORDINATOR - CASE MANAGEMENT ASSISTANT Work Phone: Start: 03-26-2024 Ecg routine ecg w/le ast 12 lds trcg only w/o i&r Leigha Siegel ASSET COORDINATOR - CASE MANAGEMENT ASSISTANT Work Phone: Start: 01-17-2024 LIMITED ORAL EVALUAT ION - PROBLEM FOCUSED Kymberly Mckenzie Nachodiane DMD Work Phone: Start: 11-24-2023 Urnls dip stick/tabl et rgnt auto w/o microscopy Sia Weinstein ASSET COORDINATOR.CASE MANAGEMENT ASSISTANT Work Phone: Start: 08-11-2023 Ct head/brain w/o co ntrast material Laurigladis Skyla DO Work Phone: Start: 04-07-2023 Radiologic exam esop hagus single contrast study Desirae Rosario MD Work Phone: Start: 11-15-2022 Us retroperitoneal r eal time w/image complete Giuliana Carson APRN.CASE MANAGEMENT ASSISTANT Work Phone: Start: 11-10-2022 Urnls dip stick/tabl et rgnt auto w/o microscopy Giuliana Carson ASSET COORDINATOR.CASE MANAGEMENT ASSISTANT Work Phone: Start: 10-29-2022 Us pelvic nonobstetr ic real-time image complete [facility] Provider None (qualifier value) MIGUEL ANGEL PARKER MD Plan of Treatment Date Care Activity Detail Author Start: 2052 RSV Immunization for Adults (1 - 1-dose 75+ series) RSV Immunization for Adults (1 - 1-dose 75+ series) [facility] Start: 2037 RSV Immunization age d 60 or older (1 - 1-dose 60+ series) RSV Immunization aged 60 or older (1 - 1-dose 60+ series) [facility] Start: 07-03-2032 DTaP/Tdap/Td Vaccine s (2 - Td or Tdap) DTaP/Tdap/Td Vaccines (2 - Td or Tdap) [facility] Start: 07-03-2032 Urine microalbumin profile DTaP,Tdap,Td Vaccine (2 - Td or Tdap) [facility] Start: 2027 Zoster Vaccines (1 of 2) Zoste r Vaccines (1 of 2) [facility] Start: 03-26-2027 Diabetes Screening Diabetes Screenin [facility] Start: 01-19-2027 Diabetes Screening Diabetes Screenin g [facility] Start: 03-05-2025 End: 03-05-2025 Plain x-ray of wrist [facility] Start: 03-05-2025 XR Wrist GE 3 Views Mota ster [facility] Start: 03-05-2025 XR Wrist 2 Views oste [facility] Start: 12-25-2024 [facility] Start: 12-25-2024 [facility] Start: 12-25-2024 Bacteria identified in Urine by Culture Urine Culture [facility] Start: 07-09-2024 End: 07-09-2024 Patient encounter procedure 07/09/2024 3:30 PM EST Office Visit Dentistry [address] [place] [address] Willy Noriega DDS [address] [place] [address] Comp Exam $3 Dentistry Comment on above: Comp Exam $3 Start: 03-18-2024 COVID-19 Vaccine ( season) COVID-19 Vaccine ( season) [facility] Start: 03-18-2024 Covid-19 Vaccine ( season) Covid-19 Vaccine ( season) [facility] Start: 03-18-2024 Influenza vaccination C [facility] Start: 01-24-2024 End: 01-24-2024 Admission to same day surgery center 01/24/2024 1:00 PM EDT - 01/24/2024 3:20 PM EDT Surgery [facility] Surgery [address] [place] [address] Kymberly Sethi, DMD [address] [place] [address] YAZIDI DENTAL [facility] Surgery Comment on above: YAZIDI DENTAL Start: 01-24-2024 Subsequent hospital visit by physician 01/24/2024 1:00 PM EDT Hospital Encounter [facility] Surgery [address] [place] [address] Kymberly Sethi, DMD [address] [place] [address] Facial cellulitis [L03.211] [facility] Surgery Comment on above: Facial cellulitis [L 03.211] Start: 01-24-2024 End: 01-24-2024 Unlisted procedure dentoalveolar structures MR OR Start: 07-18-2023 Behavioral Health Screening Behavioral Health Screening [facility] Start: 03-18-2023 Covid-19 Vaccine () Covid-19 Vaccine () [facility] Start: 03-18-2023 Influenza vaccination C [facility] Start: 07-18-2022 DEPRESSION ASSESSMENT DEPRESSION ASS ESSMENT [facility] Start: 2022 COLOGUARD (FIT-DNA) COLOGUARD (FIT-D NA) [facility] Start: 2022 Colonoscopy COLONOSCOPY [facility] Start: 2022 COLORECTAL CANCER SCREENING COLORECTAL CANCER SCREENING [facility] Start: [address] COLONOGRAPHY [facility] Start: 2022 DIABETES SCREEN DIABETES SCREEN [facility] Start: 2022 Diabetes Screening Diabetes Screenin g [facility] Start: 2022 FECAL OCCULT BLOOD FECAL OCCULT BLOO D [facility] Start: 2022 Lipid 1996 panel - S deny or Plasma Lipid Screening [facility] Start: 2022 Lipid panel Lipid Screening [facility] Start: 2022 LIPID SCREEN LIPID SCREEN [facility] Start: 2022 Screening for malign ant neoplasm of colon [facility] Start: 2022 [facility] Start: 03-18-2022 Influenza vaccination INFLUENZ A (Season Ended) [facility] Start: 09-07-2021 COVID-19 VACCINE (4 - Booster for Pfizer series) COVID-19 VACCINE (4 - Booster for Pfizer series) [facility] Start: 09-07-2021 Covid-19 Vaccine (4 - Pfizer series) Covid-19 Vaccine (4 - Pfizer series) [facility] Start: 03-18-2021 Influenza vaccination INFLUENZA (#1) [facility] Start: 2017 Mammography [facility] Start: 2017 Screening for malign ant neoplasm of breast [facility] Start: 2007 HPV TESTING HPV TESTING [facility] Start: 2007 Screening for malign ant neoplasm of cervix [facility] Start: 1998 PAP TESTING PAP TESTING [facility] Start: 1998 Screening for malign ant neoplasm of cervix [facility] Start: 1996 Hepatitis B Vaccine (1 of 3 - 19+ 3-dose series) Hepatitis B Vaccine (1 of 3 - 19+ 3-dose series) [facility] Start: 1996 Hepatitis B Vaccines (1 of 3 - 19+ 3-dose series) Hepatitis B Vaccines (1 of 3 - 19+ 3-dose series) [facility] Start: 1996 Urine microalbumin profile [facility] Start: 1995 Anxiety Screening Anxiety Screening [facility] Start: 1995 Depression Screening Depression Scre ening [facility] Start: 1995 HEPATITIS C SCREENING HEPATITIS C [facility] Start: 1995 Hepatitis C screening Hepatitis C [facility] Start: 1995 HIV SCREENING HIV SCREENING [facility] Start: 1995 HIV screening HIV Screening [facility] Start: 1989 Adult depression screening assessment DEPRESSION SCREENING [facility] Start: 1982 COVID-19 VACCINE (#1) COVID-19 VACCI NE (#1) [facility] Start: 1982 COVID-19 VACCINE (1) COVID-19 VACCIN E (1) [facility] Start: 1978 MMR Vaccines (1 of 1 - Standard series) MMR Vaccines (1 of 1 - Standard series) [facility] Start: 1977 HEPATITIS B (1 of 3 - 3-dose series) HEPATITIS B (1 of 3 - 3-dose series) [facility] Start: 1977 Hepatitis B Vaccine (1 of 3 - 3-dose series) Hepatitis B Vaccine (1 of 3 - 3-dose series) [facility] Start: 1977 Hepatitis B Vaccines (1 of 3 - 3-dose series) Hepatitis B Vaccines (1 of 3 - 3-dose series) [facility] Start: 1977 HIV screening HIV Screening [facility] Start: 1977 Screening for malign ant neoplasm of colon [facility] Bacteria identified in Urine by Culture URINE CULTURE Microbiology Routine Hematuria, unspecified type 11/24/2023 4:27 PM EDT [facility] Work Phone: Bacteria identified in Urine by Culture URINE CULTURE Microbiology Routine UTI symptoms 04/09/2024 5:34 PM EDT [facility] Work Phone: Patient Education ED ALOC ED Cys titis Female Adult [facility] Work Phone: Patient referral [facility] Work Phone: Urine culture [facility] End: 12-10-2023 US KIDNEY/BLADDER US KIDNEY/BLADDER Radiology Routine Gross hematuria 1 Occurrences starting 11/10/2022 until 12/10/2023 [facility] Work Phone: Comment on above: 1 Occurrences starti ng 11/10/2022 until 12/10/2023 [facility] Immunizations Immunization Date Immunization Notes Care Provider Medina rodriguez 07-03-2022 tetanus toxoid, redu yehuda diphtheria toxoid, and acellular pertussis vaccine, adsorbed; Translations: [Boostrix (Tdap)] FRANSISCO PERRY MD [facility] 07-13-2021 SARS-CoV-2 mRNA (tozinameran) vaccine FRANSISCO PERRY MD [facility] 08-22-2020 SARS-CoV-2 mRNA (tozinameran) vaccine FRANSISCO PERRY MD [facility] 08-01-2020 SARS-CoV-2 mRNA (tozinameran) vaccine FRANSISCO PERRY MD [facility] 07-09-2020 influenza virus vaccine, unspecified formulation FRANSISCO PERRY MD [facility] 07-09-2020 influenza, injectabl e, quadrivalent, contains preservative Corral Addison DO Work Phone: [facility] 04-15-2018 influenza virus vaccine, unspecified formulation FRANSISCO PERRY MD [facility] 04-15-2018 influenza, injectabl e, quadrivalent, preservative free Corral Addison DO Work Phone: [facility] 04-18-2017 influenza virus vaccine, unspecified formulation FRANSISCO PERRY MD [facility] 04-18-2017 influenza, injectabl e, quadrivalent, preservative free Corral Addison DO Work Phone: [facility] 05-03-2014 influenza virus vaccine, unspecified formulation FRANSISCO PERRY MD [facility] 05-03-2014 influenza, live, intranasal, quadrivalent Corral Addison DO Work Phone: [facility] Payers Date Payer Category Payer Self-pay 2023 Unknown [facility] DENTAL [id number] 2023-Present [phone] [address] [place] [address] Dental [id number] 24469.[facility] 2018 Medicare [id number] 02946.[facility] 2018 Medicare [id number] 2016 Medicaid MEDICAID [facility] MEDICAID [id number] 2016-Present [phone] [address] [place] [address] Medicaid [id number] 98566.[facility] 2016 Medicaid [id number] 33481.[facility] 2016 Medicaid [id number] 1977 Unknown [id number] 1977 Unknown [id number] 1977 Unknown [id number] 1977 Unknown [id number] 1977 Unknown [id number] [id number]. 1977 Unknown [id number] [id number]. 1977 Unknown [id number] [id number]. 1977 Unknown [id number] [id number]. 1977 Unknown [id number] [id number]. 1977 Unknown [id number] 1977 Unknown [id number] Unknown [id number] Unknown [id number] Unknown [id number] Unknown [id number] Social History Date Type Detail Facility Start: 11-20-2010 End: 02-20-2025 Tobacco smoking status NHIS Never smoked tobacco [facility] Work Phone: Start: 11-20-2010 End: 08-11-2023 Tobacco use and exposure Smokeless tobacco non-user [facility] Work Phone: Start: 05-19-2016 End: 03-16-2024 Alcohol intake Current non-drinker of alcohol (finding) [facility] Start: 1975 Sex Assigned At Not on file [facility] Sex Assigned At [facility] Start: 12-14-2022 End: 03-26-2024 History of Social function [facility] Start: 12-14-2022 End: 03-26-2024 Tobacco use panel [facility] National Score (1-100), lower number is lower risk 77 [facility] Start: 08-11-2023 End: 03-26-2024 Alcohol intake Ex-drinker (finding) [facility] Start: 08-26-2005 End: 02-15-2022 Sex Female (finding) [facility] Start: 1975 Sex Assigned At Female [facility] NEGATED: Highlighted rowStart: NINF History of tobacco use Passive smoker [facility] Functional Status Date Assessment Result Facility 05-28-2023 Functional Status ID band on, Call device within reach, Bed in low position, Wheels locked, Upper/Half-Length side-rails up, Phone within reach, personal items within reach, Visitor at bedside, Safety level maintained [facility] 05-28-2023 Functional Status [facility] 01-15-2023 Functional Status Room check performed [facility] 01-15-2023 Functional Status [facility] 01-15-2023 Functional Status [facility] 01-15-2023 Functional Status Yes [facility] Functional Status [facility] 01-14-2023 Functional Status [facility] 01-14-2023 Functional Status Special Call D evice Unable to use call device [facility] [facility] 01-14-2023 Functional Status 100 [facility] 01-14-2023 Functional Status [facility] 01-14-2023 Functional Status [facility] 01-13-2023 Functional Status Skin Care Prev entative Intervention(s) heel(s)s elevated [facility] 01-13-2023 Functional Status Done [facility] 01-13-2023 Functional Status [facility] 01-13-2023 Functional Status [facility] 01-12-2023 Functional Status [facility] 01-12-2023 Functional Status 90 [facility] 01-12-2023 Functional Status Supervised [facility] 01-12-2023 Functional Status [facility] 01-12-2023 Functional Status Done [facility] 01-11-2023 Functional Status [facility] 01-11-2023 Functional Status [facility] 01-10-2023 Functional Status [facility] 01-10-2023 Functional Status NPO Status Maintained [facility] 01-10-2023 Functional Status [facility] 01-09-2023 Functional Status [facility] 01-09-2023 Functional Status [facility] 01-08-2023 Functional Status SCD On/Re-applied bilat eral knee [facility] 01-08-2023 Functional Status [facility] 01-08-2023 Functional Status [facility] 01-08-2023 Functional Status [facility] 01-08-2023 Functional Status [facility] 01-06-2023 Functional Status Living Situation [facility] 01-05-2023 Functional Status Patient Identi fied Identification band, Verbal [facility] 08-28-2022 Functional Status SCD Removed/Off bilater al knee [facility] 08-28-2022 Functional Status Room check per formed, Well Driller Helper at bedside [facility] 08-28-2022 Functional Status [facility] 08-27-2022 Functional Status [facility] 08-27-2022 Functional Status [facility] 08-27-2022 Functional Status Done [facility] 08-27-2022 Functional Status [facility] 08-25-2022 Functional Status Maximum assistance [facility] 08-24-2022 Functional Status Hospital bed [facility] 08-24-2022 Functional Status [facility] 08-23-2022 Functional Status [facility] Mental Status Date Assessment Result Facility 12-25-2024 Cognitive function [place] [facility] [place] 05-28-2023 Mental Status Orientation Oriented x 4 [facility] 05-28-2023 Mental Status [facility] 01-15-2023 Mental Status Orientation Does not intera ct [facility] 01-14-2023 [facility] 01-13-2023 Mental Status [facility] 08-28-2022 Mental Status Orientation Does not interact, Other: Patient states no when answering questions [facility] 08-27-2022 Mental Status [facility] 08-27-2022 Mental Status [facility] 08-26-2022 Mental Status Orientation Asse ssment Confused [facility] 08-25-2022 Mental Status [facility] 08-25-2022 Mental Status [facility] Clinical Notes 07-04-2021 to 01-06-2025 Telephone Encounter - Marj Angulo - 06/04/2024 8:44 AM ESTTelephone Encounter - Marj Angulo - 06/04/2024 8:44 AM ESTTelephone Encounter - Adelina Carbone - 06/04/2024 8:30 AM ESTPatient Instructions Note Date & Type Note Facility [facility]2025 [facility]-04[facility]2025 [facility] 01-03-2025 [facility] 01-02-2025 [facility] 01[facility]01-2025 [facility] 01[facility]01-2025 [facility] 01[facility]01-2025 [facility] 12-31-2024 [facility] 12-30-2024 [facility] 12-29-2024 [facility] 12-29-2024 [facility] 12-28-2024 [facility] 12-27-2024 Note [facility] 12-27-2024 Note SARS-COV-2 (AGENT OF COVID-19) RNA: Not detected INFLUENZA A RNA: Not detected INFLUENZA B RNA: Not detected RESPIRATORY SYNCYTIAL VIRUS (RSV) RNA: Not detected [facility] Comment on above: Performed By: #### 9 [id number] ####[facility] LABORATORYCLIA [id number] [place] [address] [facility] 12-25-2024 Radiology Diagnostic study note [facility] [address], [place] [id number] Brain/Head without Contrast MR#: [id number] Acct: [id number] Name: SHARLA JOINER Rep #: [id number] : 1975 F 49 From: Shorty Cassidy MD PCP: Abby Carrillo MD Status: PRE ER Study:Brain/Head without Contrast Date of Exa m: 12/25/24 Exam# [id number] Ordering Dr: Quincy Clarke DO PROCEDURE: BRAIN/HEAD WITHOUT CONTRAST 12/25/2024 REASON FOR EXAM: ALTERED MENTAL STATUS TECHNIQUE: Head CT without intravenous contrast. Coronal and Sagittal reconstruction serieswere provided. One or more dose reduction techniques were used (e.g., Automated exposure control, adjustment of the mA and/or kV according to patient size, use of iterative reconstruction technique. RADIATION DOSE SUMMARY: CTDlvol: 44.99 mGy DLP: 846.73 mGycm COMPARISON: None FINDINGS: Brain: Old lacunar changes seen in the insular cortex of both temporal lobes. CSF Spaces: Mild generalized cerebral atrophy Sinuses/Mastoids: Clear at visualized levels Bones: Hyperostosis frontalis interna. CT/Brain/Head without Contrast IMPRESSION: Tiny old lacune seen in the insular cortex of both temporal lobes. Hyperostosis frontalis interna. Reading Location: [place] [address] CC: Abby Carrillo MD; Dr. Quincy Clarke DO ~ Bilingual Manager: Signed [facility] 12-25-2024 Radiology Diagnostic study note [facility] Services [address] [place] [address] Chest 1 View (Portable) MR#: [id number] Acct: [id number] Name: SHARLA JOINER Rep #: [id number] : 1975 F 49 From: Shorty Cassidy MD PCP: Abby Carrillo MD Status: PRE ER Study:Chest 1 View (Portable) Date of Exam: 12/25/24 Exam# [id number] Ordering Dr: Quincy Clarke DO PROCEDURE: CHEST 1 VIEW (PORTABLE) 12/25/2024 REASON FOR EXAM: ALTERED MENTAL STATUS TECHNIQUE: Frontal view of the chest. COMPARISON: None FINDINGS: Hardware: EKG electrodes are seen. Heart: The heart is nonenlarged. Lungs: Lungs are clear. Bones: The bones are unremarkable. Other: RAD/Chest 1 View (Portable) IMPRESSION: No Acute Findings. Reading Location: [place] [address] CC: Abby Carrillo MD; Dr. Quincy Clarke DO ~ Bilingual Manager: Signed [facility] 12-19-2024 Note [facility] 12-18-2024 [facility] 12-17-2024 [facility] 12-16-2024 [facility] 12-15-2024 [facility] 12[facility]14-2024 [facility] 12[facility]13-2024 [facility] 12-13-2024 [facility] 12-12-2024 [facility] 12-12-2024 [facility] 12[facility]11-2024 [facility] 12-11-2024 Note [facility] 12-11-2024 Note HNO ID: [id number] Author: JOSE MINOR RN Service: Nursing Author Type: Registered Nurse Type: Nursing Progress Note Filed: 12/11/2024 14:41 Note Text: Called Legal guardian (mom) to fill out MRI form, no response. Will try calling again. [facility] 12-10-2024 Note [facility] 12-09-2024 Note HNO ID: [id number] Author: NYDIA VICTOR, TENA Service: Nursing Author Type: Registered Nurse Type: Nursing Progress Note Filed: 12/09/2024 15:55 Note Text: Mts called about iv fluids not compatabile [facility] 12-09-2024 Note HNO ID: [id number] Author: KWAME HUSSEIN, TENA Service: ? Author Type: Registered Nurse Type: Nursing Progress Note Filed: 12/09/2024 15:26 Note Text: Report given to oncoming nurse. [facility] 12-09-2024 Note [facility] 12-08-2024 Note [facility] HNO ID: [id number] Author: NYDIA VICTOR RN Service: Nursing Author Type: Registered Nurse Type: Nursing Progress Note Filed: 12/06/2024 19:46 Note Text: Spoke with shelter updated on discharge plans [facility] 12-06-2024 Note [facility] 12-05-2024 Note HNO ID: [id number] Author: NYDIA VICTOR, TENA Service: Nursing Author Type: Registered Nurse Type: Nursing Progress Note Filed: 12/05/2024 22:34 Note Text: Pt turned bed alarm on [facility] 12-05-2024 Note [facility]ter 12-04-2024 Note [facility] 12-04-2024 Note [facility] 12-03-2024 Note SARS-COV-2 (AGENT OF COVID-19) RNA: Not detected INFLUENZA A RNA: Not detected INFLUENZA B RNA: Not detected RESPIRATORY SYNCYTIAL VIRUS (RSV) RNA: Not detected [facility] Comment on above: Performed By: #### 9 [id number] ####[facility] LABORATORYCLIA [id number] [address] [facility] 10-21-2024 Note . MICRO - Microbiology PROCEDURE: Blood Culture (bacterial) [*1] SOURCE: Blood BODY SITE: COLLECTED DATE/TIME: 10/16/2024 08:58 EDT RECEIVED DATE/TIME: 10/16/2024 11:44 EDT START DATE/TIME: 10/16/2024 11:44 EDT FREE TEXT SOURCE: FINAL REPORTS Final Report [] Verified Date/Time/Personnel: 10/21/2024 11:59 EDT Blood Culture: No Growth at 5 days. PRELIMINARY REPORTS Preliminary Report [] Verified Date/Time/Personnel: 10/16/2024 12:59 EDT Culture has been received in lab and is no growth to date. Routine cultures are held for 5 days. Performing Locations *1: This test was performed at: [address], [address] [place] [address] 10-21-2024 Note . MICRO - Microbiology PROCEDURE: Blood Culture (bacterial) [*1] SOURCE: Blood BODY SITE: COLLECTED DATE/TIME: 10/16/2024 08:58 EDT RECEIVED DATE/TIME: 10/16/2024 11:44 EDT START DATE/TIME: 10/16/2024 11:44 EDT FREE TEXT SOURCE: FINAL REPORTS Final Report [] Verified Date/Time/Personnel: 10/21/2024 11:59 EDT Blood Culture: No Growth at 5 days. PRELIMINARY REPORTS Preliminary Report [] Verified Date/Time/Personnel: 10/16/2024 12:59 EDT Culture has been received in lab and is no growth to date. Routine cultures are held for 5 days. Performing Locations *1: This test was performed at: [address], [address] [place] [address] 10-19-2024 Note . MICRO - Microbiology PROCEDURE: Urine Culture [*1] SOURCE: Urine, Straight BODY SITE: Catherized COLLECTED DATE/TIME: 10/16/2024 10:10 EDT RECEIVED DATE/TIME: 10/16/2024 16:54 EDT START DATE/TIME: 10/16/2024 16:54 EDT FREE TEXT SOURCE: FINAL REPORTS Final Report [] Verified Date/Time/Personnel: 10/19/2024 08:23 EDT 50,000 - 100,000 cfu/ml Escherichia coli 50,000 - 100,000 cfu/ml Pseudomonas aeruginosa 50,000 - 100,000 cfu/ml Enterococcus faecalis PRELIMINARY REPORTS Preliminary Report [] Verified Date/Time/Personnel: 10/18/2024 08:10 EDT 50,000 - 100,000 cfu/ml Escherichia coli 50,000 - 100,000 cfu/ml Pseudomonas aeruginosa 50,000 - 100,000 cfu/ml Enterococcus faecalis KIKI to follow Preliminary Report [] Verified Date/Time/Personnel: 10/17/2024 10:21 EDT Culture results pending. Preliminary Report [] Verified Date/Time/Personnel: 10/16/2024 17:59 EDT Specimen received in lab. SUSCEPTIBILITY RESULTS Escherichia coli Antibiotic KIKI Dilut KIKI Inter Ampicillin >16 Resistant Ampicillin/ >16/8 Resistant Sulbactam Aztreonam <=4 Susceptible Cefazolin 8 Susceptible Ceftazidime/ <=4 Susceptible Avibactam Ceftolozane/ <=2 Susceptible Tazobactam Ciprofloxacin <=0.25 Susceptible Ertapenem <=0.5 Susceptible Gentamicin >8 Resistant ID Panel Not Not Applicable Applicable Imipenem <=1 Susceptible Levofloxacin <=0.5 Susceptible Meropenem <=1 Susceptible Minocycline <=4 Susceptible Nitrofurantoin <=32 Susceptible Piperacillin/ <=8 Susceptible Tazobactam Tobramycin 8 Intermediate Trimethoprim/ >2/38 Resistant Sulfa Pseudomonas aeruginosa Antibiotic KIKI Dilut KIKI Inter Aztreonam <=4 Susceptible Cefepime <=2 Susceptible Ceftazidime <=1 Susceptible MICRO - Microbiology SUSCEPTIBILITY RESULTS Pseudomonas aeruginosa Antibiotic KIKI Dilut KIKI Inter Ceftazidime/ <=4 Susceptible Avibactam Ceftolozane/ <=2 Susceptible Tazobactam ID Panel Not Not Applicable Applicable Imipenem 2 Susceptible Levofloxacin <=0.5 Susceptible Meropenem <=1 Susceptible Piperacillin/ <=8 Susceptible Tazobactam Tobramycin <=2 Susceptible Enterococcus faecalis Antibiotic KIKI Dilut KIKI Inter Ampicillin <=2 Susceptible Ciprofloxacin >2 Resistant Gentamicin >500 Resistant synergy ID Panel Not Not Applicable Applicable Levofloxacin >4 Resistant Nitrofurantoin <=32 Susceptible Vancomycin 1 Susceptible Performing Locations *1: This test was performed at: [facility], [address] [place] [address], [id number] , DILSHADVA[facility]QUEZ GUAN 06-04-2024 Telephone encounter Note Referral closed [facility] 06-04-2024 Miscellaneous Notes Referral closed Name of Caller: Annie Contact Reason for Appointment: Barbara called because they received a letter stating there was a missed appointment. She said they called prior and after. Sharla has her own ENT. Please make note she has another provider for ENT and will not be making another appointment. Please advise. Office Name: ENT Name of caller: Annie Contact phone number: [phone] Relationship to Patient: Caregiver - Alpha Personal Care Provider: Lisette Jesus PA-C Practice: [facility] Chief Complaint/Reason for Call: Annie called in regarding Sharla's 05/01/24 3:00 PM missed new patient appointment, and states that Sharla had an appointment with Dr. Peggy Howard at [facility] on 04/11 and [facility]. Please be advised. Best time of day caller can be reached: Any Patient advised that office/PCP has 24-48 business hours to return their call: Yes documented in this encounter [facility] 06-04-2024 Telephone encounter Note Name of Caller: Annie Contact Reason for Appointment: Barbara called because they received a letter stating there was a missed appointment. She said they called prior and after. Sharla has her own ENT. Please make note she has another provider for ENT and will not be making another appointment. Please advise. Office Name: ENT [facility] 05-07-2024 Telephone encounter Note Name of caller: Annie Contact phone number: [phone] Relationship to Patient: Caregiver - Alpha Personal Care Provider: Lisette Jesus PA-C Practice: [facility] Chief Complaint/Reason for Call: Annie called in regarding Sharla's 05/01/24 3:00 PM missed new patient appointment, and states that Sharla had an appointment with Dr. Peggy Howard at [facility] on 04/11 and did not wish to reschedule with [facility] ENT Sharla at this time. Please be advised. Best time of day caller can be reached: Any Patient advised that office/PCP has 24-48 business hours to return their call: Yes [facility] 05-07-2024 Miscellaneous Notes Name of caller: Annie Contact phone number: [phone] Relationship to Patient: Caregiver - Alpha Personal Care Provider: Lisette Jesus PA-C Practice: [facility] Chief Complaint/Reason for Call: Annie called in regarding Sharla's 05/01/24 3:00 PM missed new patient appointment, and states that Sharla had an appointment with Dr. Peggy Howard at [facility] on 04/11 and did not wish to reschedule with [facility] ENT Sharla at this time. Please be advised. Best time of day caller can be reached: Any Patient advised that office/PCP has 24-48 business hours to return their call: Yes documented in this encounter [facility] 04-09-2024 Instructions Bob Caldwell APRN.CASE MANAGEMENT ASSISTANT - 04/09/2024 6:04 PM EDT - Medications as prescribed. - Drink plenty of fluids and get rest. - Follow up in 3-5 days with PCP/Peditrician/Urgent Care for persistent symptoms, or to the Emergency Department for worsening or new onset of symptoms. EXPRESS [facility]ARE PATIENT INFO BLADDER INFECTION OVERVIEW Bladder infections are one of the most common infections, causing symptoms of burning with urination and needing to urinate frequently. A bladder infection is a type of urinary tract infection (UTI). Bladder infections are more common is women than men. Most women have an uncomplicated bladder infection that is easily treated with a short course of antibiotics. In men, bladder infections may also affect the prostate gland, and a longer course of treatment may be needed. BLADDER INFECTION CAUSES The urinary tract includes the kidneys (which filter urine), ureters (the tube that carries urine from the kidneys to the bladder), the bladder (which stores urine), and urethra (the tube that carries urine out of the bladder). Bacteria do not normally live in these areas. However, bacteria normally live close to the urethra in women and men who are not circumcised. Bladder infections occur when bacteria travel up the urethra into the bladder. Factors that increase the risk of developing a bladder infection include: Vaginal sex Use of spermicides History of past bladder infections Diabetes In men, not being circumcised or having anal sex increase the risk of bladder infections. BLADDER INFECTION SYMPTOMS The typical symptoms of a bladder infection include: Pain or burning when urinating Frequent need to urinate Urgent need to urinate Blood in the urine Fever, back pain, nausea, or vomiting are not common symptoms of a bladder infection, but can occur in people with a kidney infection (pyelonephritis). If you have these symptoms, you should call your doctor or nurse immediately. Is it a bladder infection or something else? -- Burning with urination can also occur in people with vaginitis (eg, yeast infection) or urethritis (inflammation of the urethra). For this reason, it is important to call your healthcare provider before assuming you have a bladder infection. BLADDER INFECTION DIAGNOSIS Simple bladder infections are usually diagnosed based upon your symptoms alone. However, most patients, especially those who have bladder infection symptoms for the first time, should see a healthcare provider for urine testing. Urine culture -- A urine culture is a test that uses a sample of urine to try and grow bacteria in a laboratory. It usually requires about 48 hours to get results. However, a urine culture is not always required to diagnose a bladder infection. Urine culture is often recommended if: You have never had a bladder infection before You have symptoms that are not typical for bladder infection You have had resistant bladder infections before You have frequent bladder infections You do not begin to feel better within 24 to 48 hours after starting antibiotics You are BLADDER INFECTION TREATMENT Bladder infection -- In young, healthy adolescents and adults with a bladder infection, the usual treatment includes a three to seven day course of antibiotics. The typical drugs chosen are: trimethoprim-sulfamethoxazole (Bactrim ), nitrofurantoin (Macrobid ), ciprofloxacin (Cipro ) or levofloxacin (Levaquin ). In men, the infection may involve your prostate gland and treatment is usually given for at least 7 days. Your symptoms should begin to resolve within one day after starting treatment. It is important to take the full course of antibiotics to completely eliminate the infection. If your symptoms persist for more than two or three days after starting treatment, call your healthcare provider. If needed, you can take a prescription medication that numbs the bladder and urethra (phenazopyridine [Pyridium ]) to reduce the burning pain of some UTIs. A similar medication is available without a prescription (eg, Uristat). Both medications change the color of the urine (usually blue or orange) and can interfere with laboratory testing. You should not take these medications for more than 48 hours due to the risk of side effects. These medications do not treat the infection and must be taken along with an antibiotic. Some providers recommend drinking more fluids while treating bladder infections to help flush bacteria from the bladder. Others believe that drinking more fluids may dilute the antibiotic in the bladder and make the medication less effective. No studies have been performed to address this issue. There are also no good studies on the effectiveness of cranberry juice for treating a bladder infection; we do not recommend using cranberry juice to treat bladder infections. Follow-up care -- Follow-up testing is not needed in healthy, young men or women with a bladder infection if symptoms resolve. women are usually asked to have a repeat urine culture one to two weeks after treatment has ended to make sure the bacteria are no longer in the urine. RECURRENT BLADDER INFECTIONS Bladder infections versus other causes -- Some adults, especially women, develop bladder infections frequently. In this case, it is important to confirm that your symptoms (eg, pain or burning, frequency, and urgency) are caused by a bladder infection. Symptoms are usually similar from one infection to another. The best way to confirm an infection is to have a urine culture. If your urine culture is negative for infection, other causes of pain, burning, and frequency should be investigated. There is no reason to take antibiotics if your urine culture is negative. Need for further testing -- If you continue to develop bladder infections, you may require further testing. If you continue to notice blood in your urine after your bladder infection has cleared, you should have further testing. Preventing recurrent UTIs -- Women with recurrent urinary tract infections may be advised to take steps to prevent bladder infections, including one or more of the following: Changes in control -- Women who develop frequent bladder infections and use spermicides, particularly those who also use a diaphragm, may be encouraged to use an alternate method of control. Cranberry products -- Taking cranberry juice or cranberry tablets has been promoted as one way to help prevent frequent bladder infections. However, this has not been proven. Drinking more fluid and urinating after intercourse -- Although studies have not proven that drinking more fluids or urinating soon after intercourse can prevent infection, some healthcare providers recommend these measures since they are not harmful. Drinking more fluid may help to wash out bacteria that enter the bladder. Postmenopausal women -- Postmenopausal women who develop recurrent bladder infections may benefit from using vaginal estrogen. Vaginal estrogen is available in a flexible ring that is worn in the vagina for three months (eg, Estring ), a small tablet (Vagifem ), or a cream (eg, Premarin or Estrace ). Vaginal estrogen is discussed in more detail in a separate topic review. Antibiotics -- A preventive antibiotic treatment may be recommended if you repeatedly develop bladder infections and have not responded to other preventive measures. Antibiotics are highly effective in preventing recurrent bladder infections and can be taken in several different ways. Preventive antibiotic -- You can take a low dose of an antibiotic once per day or three times per week for six months to several years. Antibiotics following intercourse -- In women who develop urinary tract infections after sex, taking a single low dose antibiotic after intercourse can help to prevent bladder infections. Self-treatment -- A plan to begin antibiotics at the first sign of a bladder infection may be recommended in some situations. Before starting this regimen, it is important that you have had testing (urine cultures) to confirm that your symptoms are caused by a bladder infection; some people have symptoms of a bladder infection but do not actually have an infection. documented in this encounter [facility] 04-09-2024 Note Janny horton 04-09-2024 History of Present illness Narrative CC: Urinary Problem (Pain with urination started today.) HPI: Sharla Joiner is an 48 year old female, with known history of developmental disability, presenting with caregiver who is contributing to the history, for concerns of a urinary tract infection. Caregiver states that patient started complaining about painful urination today. Caregiver states that she has noticed her using the restroom more frequently. There has been no fevers. Patient denies abdominal pain, back pain or flank pain, however patient is a poor historian. Patient with history of getting UTIs. Last 1 was 3 to 4 months ago. No history of pyelonephritis. 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 docusate sodium (COLACE) 100 mg capsule risperiDONE (RISPERDAL) 1 mg tablet Take 1 tablet by mouth daily at bedtime. ibuprofen (MOTRIN) 600 mg tablet Take 1 tablet by mouth every 6 hours as needed for pain. 20 tablet 0 acetaminophen (TYLENOL EXTRA STRENGTH) 500 mg tablet Take 1 tablet by mouth every 8 hours as needed for pain. 24 tablet 0 fluoride, sodium, (PREVIDENT) 1.1 % gel 1 application by DENTAL route daily at bedtime. 56 g 3 Chlorhexidine Gluconate (PERIDEX) 0.12 % solution Use 15 mL as instructed two times a day. Rinse around mouth for 30 seconds then expectorate 473 mL 0 Bnwxvvhmzlcsb-Tgaxxuey-Mxzwjs (MULTIVITAMIN 50 PLUS) tab Take 1 tablet by mouth once daily. Ld 01/22 risperiDONE Microspheres (RISPERDAL CONSTA) 12.5 mg/2 mL susp,ERrecon Inject 12.5 mg intramuscularly every 2 weeks. fludrocortisone (FLORINEF) 0.1 mg tablet Take 0.2 mg by mouth two times a day. divalproex DR (DEPAKOTE) 500 mg EC tablet Take 500 mg by mouth two times a day. LORazepam (ATIVAN) 1 mg tablet Take 1 mg by mouth two times a day. @ 3pm and 8 pm amantadine HCl (SYMMETREL) 100 mg capsule Take 100 mg by mouth two times a day. atropine (ISOPTO ATROPINE) sublingual drops Dissolve 1 Drop under the tongue two times a day. FOR DROOLING pantoprazole DR (PROTONIX) 40 mg tablet Take 40 mg by mouth once daily. VITAMIN D-3 50 mcg (2,000 unit) cap Ld 01/22 midodrine (PROAMITINE) 5 mg tablet Take 10 mg by mouth two times a day. FOR HYPOTENSION montelukast (SINGULAIR) 10 mg tablet Take 10 mg by mouth every morning. divalproex DR (DEPAKOTE) 250 mg EC tablet Take 250 mg by mouth two times a day. LORazepam (ATIVAN) 1 mg tablet Take 2 mg by mouth every morning. traZODone (DESYREL) 50 mg tablet Take 50 mg by mouth daily at bedtime. nitrofurantoin monohydrate and macrocrystal (MACROBID) 100 mg capsule Take 1 capsule by mouth two times a day for 5 days. 10 capsule 0 acetaminophen (TYLENOL) 500 mg tablet Take 2 tablets by mouth every 8 hours as needed for pain for up to 15 doses. (Patient not taking: Reported on 04/09/2024) 30 tablet 0 No current facility-administered medications for this visit. Social History Tobacco Use Smoking status: Never Passive exposure: Never Smokeless tobacco: Never Vaping Use Vaping status: Never Used Substance Use Topics Alcohol use: No Drug use: Never Alcohol Use: No Tobacco Use: Never FAMILY HISTORY Family history unknown: Yes ROS: Unless otherwise stated in this report the patient's positive and negative responses for review of systems for constitutional, eyes, ENT, cardiovascular, respiratory, gastrointestinal, neurological, , musculoskeletal, and integument systems and related systems to the presenting problem are either stated in the history of present illness or were not pertinent or were negative for the symptoms and/or complaints related to the presenting medical problem. Positives and pertinent negatives as per HPI. All others reviewed and are negative. 04/09/24 1723 BP: 133/84 Pulse: 88 Resp: 16 Temp: 36.8 C (98.3 F) TempSrc: Temporal SpO2: 98% Weight: 64 kg (141 lb) Procedures Physical Exam: Physical Exam Vitals and nursing note reviewed. Constitutional: General: She is not in acute distress. Appearance: Normal appearance. She is not ill-appearing or toxic-appearing. Cardiovascular: Rate and Rhythm: Normal rate and regular rhythm. Heart sounds: Normal heart sounds, S1 normal and S2 normal. No murmur heard. No friction rub. No gallop. Pulmonary: Effort: Pulmonary effort is normal. No respiratory distress. Breath sounds: Normal breath sounds. No decreased breath sounds, wheezing, rhonchi or rales. Abdominal: General: Abdomen is flat. Bowel sounds are normal. There is no distension. Palpations: Abdomen is soft. There is no mass. Tenderness: There is no abdominal tenderness. There is no right CVA tenderness, left CVA tenderness, guarding or rebound. Negative signs include Roth's sign and McBurney's sign. Skin: General: Skin is warm and dry. Capillary Refill: Capillary refill takes less than 2 seconds. Neurological: Mental Status: She is alert. Mental status is at baseline. Psychiatric: Behavior: Behavior is cooperative. ASSESSMENT/PLAN: MDM Patient is well-appearing and nontoxic. Urinalysis with straw color, otherwise unremarkable. Urine culture pending. Urine Preg negative. I do not suspect pyelonephritis. Plan: Will treat prophylactically with Macrobid for cystitis, based on history and UTI symptoms, while await urine culture results. Recommended supportive care with fluids and analgesics. Prevention, follow-up and return/ER precautions discussed and questions answered. Patient agreed and understood the plan, and was stable on discharge. 1. UTI symptoms - ICD9: 788.99, ICD10: R39.9 - URINALYSIS, DIPSTICK ONLY - URINE CULTURE - HCG, QUALITATIVE, URINE - NITROFURANTOIN MONOHYDRATE & MACROCRYSTAL 100 MG ORAL CAP Bob Caldwell APRN.CNP (I strongly encouraged follow-up with a physician in the specified timeframe recommended. We also discussed medications that were prescribed (if any) including common side effects and interactions. The patient was advised to abstain from driving, operating heavy machinery or making significant decisions while taking medications such as opiates and muscle relaxer's that may impair these abilities. Voice recognition software was used in the creation of this note for documentation purposes. All reasonable efforts were made to correct any errors, but some still may occur due to the nature of the software.) documented in this encounter [facility] 03-26-2024 Emergency department Note EKG, IV, blood work, covid and straight cath completed with assistance of Juliette Ponce RN, Juan medic and Mary lópez; patient tolerated well. Respirations even and unlabored, no distress noted. Caregiver at bedside throughout all procedures and remains with patient after Trish Miranda RN 03/26/24 1316 [facility] 03-26-2024 Emergency department Note EKG, IV, blood work, covid and straight cath completed with assistance of Juliette Ponce RN, Juan medic and Mary lópez; patient tolerated well. Respirations even and unlabored, no distress noted. Caregiver at bedside throughout all procedures and remains with patient after Trish Miranda RN 03/26/24 1316 EKG performed by Mayr lópez and given to for review rTish Miranda RN 03/26/24 1303 EMERGENCY DEPARTMENT ENCOUNTER Pt Name: Sharla Joiner Birthdate 1975 Date of evaluation: 03/26/2024 ED Provider: Leigha Siegel APRN - MAT This patient was seen in conjunction with Dr. Shah CHIEF COMPLAINT Chief Complaint Patient presents with Abdominal Pain Pt c/o abdominal pain x 3 days. No report of vomiting. Care provider states they were here Tuesday for same s/s. Pt also c/o bilat ear pain, runny nose. No cough HISTORY OF PRESENT ILLNESS (Location/Symptom, Timing/Onset, Context/Setting, Quality, Duration, Modifying Factors, Severity) Note limiting factors. I wore appropriate PPE for the entirety of this encounter. HPI Sharla Joiner is a 48 y.o. who presents to the emergency department with chief complaint of agitation, abdominal pain, not sleeping, strengthening other staff at the shelter. Patient is autistic has developmental delay, she was here couple days ago had to give her Ativan and Versed eventually family and shelter employee just wanted to take her back to follow-up as an outpatient. States is gotten worse over the last 3 days. No nausea vomiting but no appetite and the staff states that she is not eating. Nursing Notes were reviewed. Limitations to history: None Outside historians: None REVIEW OF SYSTEMS Review of Systems Unable to perform ROS: Other Constitutional: Positive for appetite change. Negative for activity change, chills and fever. HENT: Negative for congestion, nosebleeds, sinus pain and trouble swallowing. Eyes: Negative for pain and visual disturbance. Respiratory: Negative for cough, chest tightness and shortness of breath. Cardiovascular: Negative for chest pain. Gastrointestinal: Positive for abdominal pain. Negative for diarrhea, nausea and vomiting. Genitourinary: Negative for dysuria, hematuria, pelvic pain, vaginal bleeding, vaginal discharge and vaginal pain. Musculoskeletal: Negative for arthralgias, back pain and myalgias. Skin: Negative for rash and wound. Neurological: Negative for syncope, weakness, light-headedness and headaches. Hematological: Negative for adenopathy. Psychiatric/Behavioral: Positive for agitation. Negative for confusion. All other systems reviewed and are negative. Pertinent positives and negatives as per HPI. PAST MEDICAL HISTORY Past Medical History: Diagnosis Date Aggressive behavior Autistic disorder, residual state Bipolar 1 disorder (HCC) Impulse control disease Memory impairment Parkinson's disease (HCC) Scoliosis Tardive dyskinesia SURGICAL HISTORY History reviewed. No pertinent surgical history. CURRENT MEDICATIONS Previous Medications ACETAMINOPHEN (TYLENOL) 325 MG TABLET Take 325 mg by mouth. AMANTADINE (SYMMETREL) 100 MG CAPSULE TAKE 1 CAP BY MOUTH TWICE A DAY AMOXICILLIN-CLAVULANATE (AUGMENTIN) 875-125 MG TABLET Take 1 tablet by mouth in the morning and 1 tablet in the evening. Do all this for 10 days. CARBIDOPA-LEVODOPA (SINEMET) 25-100 MG TABLET Take by mouth. CEPHALEXIN (KEFLEX) 500 MG CAPSULE TAKE 1 CAPSULE BY MOUTH EVERY 12 HOURS FOR 7 DAYS CHOLECALCIFEROL (VITAMIN D-3) 50 MCG (2000 UT) CAPSULE Take 2,000 Units by mouth daily. CHOLECALCIFEROL (VITAMIN D-3) 50 MCG (2000 UT) CAPSULE 2,000 Units. DIVALPROEX (DEPAKOTE ER) 500 MG 24 HR TABLET DIVALPROEX (DEPAKOTE) 500 MG EC TABLET Take 1 tablet by mouth 2 times daily. DIVALPROEX SPRINKLE (DEPAKOTE SPRINKLE) [address] CAPSULE DOCUSATE SODIUM (DSS) 100 MG CAPSULE FLUDROCORTISONE (FLORINEF) 0.1 MG TABLET TAKE 2 TABLETS BY MOUTH AT 8 AM AND 8 PM LOPERAMIDE (IMODIUM) 2 MG CAPSULE Take 2 mg by mouth 3 times daily as needed. LORAZEPAM (ATIVAN) 2 MG TABLET Take 1 tablet by mouth every morning. MELATONIN 5 MG TABLET 5 mg. MIDODRINE (PROAMATINE) 5 MG TABLET Take 10 mg by mouth. MONTELUKAST (SINGULAIR) 10 MG TABLET Take 1 tablet by mouth daily. MULTIPLE VITAMIN (TAB-A-KENNETH/BETA CAROTENE) TABLET PANTOPRAZOLE (PROTONIX) 40 MG EC TABLET Take 40 mg by mouth. POLYETHYLENE GLYCOL, PEG, 3350 (GLYCOLAX) 17 GM/SCOOP POWDER RISPERDAL CONSTA 12.5 MG INJECTION Inject 12.5 mg into the shoulder, thigh, or buttocks every 14 (fourteen) days. RISPERIDONE (RISPERDAL) 1 MG TABLET TRAZODONE (DESYREL) 150 MG TABLET Take 150 mg by mouth. ALLERGIES Patient has no known allergies. FAMILY HISTORY No family history on file. SOCIAL HISTORY Social History Socioeconomic History Marital status: Single Tobacco Use Smoking status: Never Smokeless tobacco: Never Substance and Sexual Activity Alcohol use: Not Currently SCREENINGS PHYSICAL EXAM ED Triage Vitals [03/26/24 1057] Temp Heart Rate Resp BP 36.6 C (97.8 F) 102 18 (!) 144/88 SpO2 Temp Source Heart Rate Source Patient Position 96 % Temporal Monitor -- BP Location FiO2 (%) -- -- Physical Exam Vitals and nursing note reviewed. Constitutional: General: She is not in acute distress. Appearance: Normal appearance. She is normal weight. She is not ill-appearing or toxic-appearing. HENT: Head: Normocephalic and atraumatic. Right Ear: External ear normal. Left Ear: External ear normal. Ears: Comments: TMs are clear bilaterally, small amount of cerumen in the external canals no pain with rehabilitation of either ear no mastoid tenderness. Mouth/Throat: Mouth: Mucous membranes are moist. Pharynx: Oropharynx is clear. Eyes: Extraocular Movements: Extraocular movements intact. Conjunctiva/sclera: Conjunctivae normal. Pupils: Pupils are equal, round, and reactive to light. Cardiovascular: Rate and Rhythm: Normal rate and regular rhythm. Pulses: Normal pulses. Heart sounds: Normal heart sounds. No murmur heard. Pulmonary: Effort: Pulmonary effort is normal. No respiratory distress. Breath sounds: Normal breath sounds. No stridor. No wheezing or rhonchi. Abdominal: Comments: Mild suprapubic tenderness the abdomen is soft and nondistended with normal bowel sounds. Musculoskeletal: General: No swelling, tenderness, deformity or signs of injury. Normal range of motion. Cervical back: Normal range of motion and neck supple. No rigidity or tenderness. Lymphadenopathy: Cervical: No cervical adenopathy. Skin: General: Skin is warm and dry. Capillary Refill: Capillary refill takes less than 2 seconds. Coloration: Skin is not jaundiced or pale. Findings: No bruising or erythema. Neurological: Mental Status: She is alert. Comments: Alert to self, moves all 4 extremities ambulates independently, slightly agitated but redirectable. Psychiatric: Comments: Agitated but redirectable DIAGNOSTIC RESULTS Procedures/EKG: EKG was reviewed by myself. Physician EKG interpretation can be found in [facility] RADIOLOGY (Per Emergency Physician): Interpretation per the Radiologist below, if available at the time of this note: CT abdomen pelvis wo IV contrast Final Result 1. No evidence for calcified collecting system calculi or obstruction. 2. Sigmoid diverticulosis without evidence of diverticulitis. 3. No evidence of mass, lymphadenopathy or inflammatory process. Report Dictated on Electronically Signed By: Jaron Ro MD Electronically Signed Date/Time: 03/26/2024 3:29 PM EDT ED BEDSIDE ULTRASOUND: Performed by ED Physician - none LABS: Labs Reviewed COMPREHENSIVE METABOLIC PANEL - Abnormal Result Value SODIUM 139 POTASSIUM 3.3 (*) CHLORIDE 105 CARBON DIOXIDE 25 ANION GAP 9 UREA NITROGEN 17 CREATININE 0.78 GLUCOSE 99 CALCIUM 9.2 AST (SGOT) 99 (*) ALT 55 (*) ALKALINE PHOSPHATASE 95 ALBUMIN 4.0 BILIRUBIN, TOTAL 1.2 TOTAL PROTEIN 7.2 eGFR >90.0 COMPLETE URINALYSIS - Abnormal Color, Urine Dark Yellow (*) Clarity, Urine Clear pH, Urine 6.0 Leukocytes, Urine Negative Nitrite, Urine Negative Protein, Urine 30 (*) Glucose, Urine Normal Bilirubin, Urine Negative Ketones, Urine 20 (*) Urobilinogen, Urine 3 (*) Blood, Urine Negative Volume, Urine 12 mL RBC, Urine 0-2 WBC, Urine 3-5 Squamous Epithelial, Urine 3-5 Bacteria, Urine Negative Mucus, Urine Moderate (*) SPECIFIC GRAVITY OF URINE (NUMERIC) 1.035 (*) SARS-COV-2, FLU A/B, AND RSV COMBO - Normal SARS-CoV-2 Not Detected Respiratory Syncytial Virus Not Detected Influenza A Not Detected Influenza B Not Detected Narrative: Methodology: real-time, RT-PCR The SARS-CoV-2, Flu A/B, and RSV Combo assay is intended for in vitro diagnostic use under the FDA Emergency Use Authorization (EUA). This test has not been FDA cleared or approved. In compliance with this authorization, please visit www.fda.gov/media/401840/download or www.fda.gov/media/766681/download to access the applicable information sheets. LIPASE - Normal LIPASE 66 MAGNESIUM - Normal MAGNESIUM 2.1 CBC (HEMOGRAM) - Normal Auto WBC 7.7 RBC 4.80 Hemoglobin 15.3 Hematocrit 44.8 MCV 93.3 MCH 31.9 MCHC 34.2 RDW 13.9 Platelets 166 MPV 9.2 TROPONIN I - Normal TROPONIN I 0.022 Narrative: Patients with high levels of Biotin oral intake (ie >5 mg/day) may have falsely decreased Troponin levels. LACTIC ACID WITH REFLEX - Normal LACTIC ACID 1.1 COMPLETE URINALYSIS WITH REFLEX TO CULTURE Narrative: The following orders were created for panel order Urinalysis complete with reflex to Culture. Procedure Abnormality Status --------- ------ Complete Urinalysis[[id number]] Abnormal Final result Please view results for these tests on the individual orders. HCG QUANTITATIVE BLOOD HCG QUANTITATIVE <2 Narrative: Values in should double every 2 to 3 days for the first 6 weeks. Elevated concentrations of human chorionic gonadotropin (hCG) measured in the first trimester of are observed in normal , but may serve as an indication of chorionic carcinoma, hydatiform mole, or multiple . Decreasing hCG concentrations indicate threatened or missed , recent termination of , ectopic , gestosis or intrauterine . Kaya- and postmenopausal females may have detectable hCG concentrations (< or = to 14 mIU/mL) due to pituitary production of hCG. Serum follicle-stimulating hormone measurement may aid in ruling-out in this population. Cutoffs of greater than 20 to 45 mIU/mL have been suggested and are method dependent. False-elevations (called phantom human chorionic gonadotropin: hCG) may occur with patients who have human antianimal or heterophilic antibodies. Some specimens may not dilute linearly due to abnormal forms of hCG. Elevated hCG concentrations not associated with are found in patients with other diseases such as tumors of the germ cells, ovaries, bladder, pancreas, stomach, lungs, and liver. This test is not intended to detect or monitor tumors or gestational trophoblastic disease. All other labs were within normal range or not returned as of this dictation. EMERGENCY DEPARTMENT COURSE and DIFFERENTIAL DIAGNOSIS/MDM: Vitals: Vitals: 03/26/24 1057 03/26/24 1100 03/26/24 1257 BP: (!) 144/88 Pulse: 102 104 Resp: 18 14 Temp: 36.6 C (97.8 F) TempSrc: Temporal SpO2: 96% 95% Weight: 65.8 kg (145 lb) Diagnoses as of 03/26/24 1548 Abdominal pain, generalized Agitation Autistic disorder The patient presented with chief complaint of with chief complaint of agitation, abdominal pain, not sleeping, strengthening other staff at the shelter. Patient is autistic has developmental delay, she was here couple days ago had to give her Ativan and Versed eventually family and shelter employee just wanted to take her back to follow-up as an outpatient. States is gotten worse over the last 3 days. No nausea vomiting but no appetite and the staff states that she is not eating.. The differential diagnosis associated with this patient's presentation includes constipation, viral syndrome, electrolyte tract infection, behavior disorder. Our workup consisted of ordering/reviewing: CBC, CMP, lipase, magnesium, urinalysis, hCG, troponin, lactate, EKG, COVID swab, CT abdomen pelvis without contrast. Diagnostic tests considered but not performed: none To aid in management, I performed an independent interpretation of EKG(s) EKG per my interpretation sinus tachycardia rate of [address] elevation or depression with normal intervals. I also reviewed external records from [facility]. I discussed their care with [facility]. Consideration for escalation of care with: Admission/observation for medication adjustments due to behavior however the staff from shelter states her to take her back to the shelter they will follow-up with the provider for medication adjustments, she required several dosages of medication to sedate her I am Versed, ketamine and then another dose of IV Versed so we can get the CT performed, when she is awake will discharge home with shelter staff.. The patient will be Discharged. Patient is in agreement with this plan. Medications sodium chloride 0.9 % infusion (has no administration in time range) sodium chloride 0.9 % bolus 1,000 mL (1,000 mL IntraVENous New Bag 03/26/24 1309) midazolam (Versed) injection 2.5 mg (2.5 mg IntraMUSCular Given 03/26/24 1145) ketamine (Ketalar) injection 265 mg (265 mg IntraMUSCular Given 03/26/24 1248) midazolam (Versed) injection 2 mg (2 mg IntraVENous Given 03/26/24 1405) REVAL: CRITICAL CARE TIME None CONSULTS: None PROCEDURES: Unless otherwise noted below, none Procedures Patients symptoms are consistent with sepsis, severe sepsis, or septic shock (If yes use .sepsiscoremeasure): no FINAL IMPRESSION 1. Abdominal pain, generalized 2. Agitation 3. Autistic disorder DISPOSITION Discharge 03/26/2024 03:47:52 PM PATIENT REFERRED TO: Desirae Rosario [id number] [facility] [id number] DISCHARGE MEDICATIONS: New Prescriptions No medications on file (Comment: Please note this report has been produced using speech recognition software and may contain errors related to that system including errors in grammar, punctuation, and spelling, as well as words and phrases that may be inappropriate. If there are any questions or concerns please feel free to contact the dictating provider for clarification.) ANDREW Braswell CNP (electronically signed) Emergency Medicine Provider ANDREW Braswell CNP 03/26/24 1549 Emergency Department Encounter [facility] EM[facility]GENCY DE[facility] Patient: Sharla Joiner : 1975 Date of Evaluation: 03/26/2024 ED Supervising Physician: Luci Shah MD I personally evaluated Sharla Joiner and made/approved the management plan and take responsibility for the patient management. This will serve as my Supervisory note and shared attestation. I did perform a substantive portion of the visit including all aspects of the Medical Decision Making. I wore appropriate PPE for the entirety of this encounter. In brief, Sharla Joiner is a 48 y.o. that presents to the emergency department for agitation. Patient brought in by her traffic sign erection supervisor from her shelter. She has autism she does verbalize at baseline but does not make sense at baseline. The traffic sign erection supervisor states she has been complaining of pain when she has bowel movements and she has been aggressive with others not acting herself. She has not been eating drinking or sleeping. She was seen here few days ago and diagnosed with possible ear infection. Tower Supervisor did not report any rash to the groin as they do bathe her. Focused exam: Awake alert hypertensive slightly tachycardic afebrile nontoxic no acute distress pacing around the room Mucous membranes are slightly dry neck is supple no respiratory distress abdominal exam nontender nondistended no peritonitis Extremities without injury or infection. Answers no to any questions asked Moving all extremities spontaneously with steady gait Brief ED course/MDM: 48-year-old female here for not acting herself. Differential infection metabolic disturbance UTI dehydration stroke. Plan is for labs, urine. She may require intramuscular medications to allow for blood and urine to be obtained as she is not willing. Consider CT abdomen pelvis as well. Diagnostics interpreted by me: none I personally discussed the patient's management with other clinicians: none All diagnostic, treatment, and disposition decisions were made by myself in conjunction with the [facility]. For all further details of the patient's emergency department visit, please see their documentation. (Comment: Please note this report has been produced using speech recognition software and may contain errors related to that system including errors in grammar, punctuation, and spelling, as well as words and phrases that may be inappropriate. If there are any questions or concerns please feel free to contact the dictating provider for clarification.) Luci Shah MD [facility] Luci Shah MD 03/26/24 1223 documented in this encounter [facility] 03-26-2024 Emergency department Note EKG performed by Mary lópez and given to MD for review Trish Miranda RN 03/26/24 1303 [facility] 03-26-2024 Physician Emergency department Note EMERGENCY DEPARTMENT ENCOUNTER Pt Name: Sharla Joiner Birthdate 1975 Date of evaluation: 03/26/2024 ED Provider: ANDREW Braswell CNP This patient was seen in conjunction with Dr. Shah CHIEF COMPLAINT Chief Complaint Patient presents with Abdominal Pain Pt c/o abdominal pain x 3 days. No report of vomiting. Care provider states they were here Tuesday for same s/s. Pt also c/o bilat ear pain, runny nose. No cough HISTORY OF PRESENT ILLNESS (Location/Symptom, Timing/Onset, Context/Setting, Quality, Duration, Modifying Factors, Severity) Note limiting factors. I wore appropriate PPE for the entirety of this encounter. HPI Sharla Joiner is a 48 y.o. who presents to the emergency department with chief complaint of agitation, abdominal pain, not sleeping, strengthening other staff at the shelter. Patient is autistic has developmental delay, she was here couple days ago had to give her Ativan and Versed eventually family and shelter employee just wanted to take her back to follow-up as an outpatient. States is gotten worse over the last 3 days. No nausea vomiting but no appetite and the staff states that she is not eating. Nursing Notes were reviewed. Limitations to history: None Outside historians: None REVIEW OF SYSTEMS Review of Systems Unable to perform ROS: Other Constitutional: Positive for appetite change. Negative for activity change, chills and fever. HENT: Negative for congestion, nosebleeds, sinus pain and trouble swallowing. Eyes: Negative for pain and visual disturbance. Respiratory: Negative for cough, chest tightness and shortness of breath. Cardiovascular: Negative for chest pain. Gastrointestinal: Positive for abdominal pain. Negative for diarrhea, nausea and vomiting. Genitourinary: Negative for dysuria, hematuria, pelvic pain, vaginal bleeding, vaginal discharge and vaginal pain. Musculoskeletal: Negative for arthralgias, back pain and myalgias. Skin: Negative for rash and wound. Neurological: Negative for syncope, weakness, light-headedness and headaches. Hematological: Negative for adenopathy. Psychiatric/Behavioral: Positive for agitation. Negative for confusion. All other systems reviewed and are negative. Pertinent positives and negatives as per HPI. PAST MEDICAL HISTORY Past Medical History: Diagnosis Date Aggressive behavior Autistic disorder, residual state Bipolar 1 disorder (HCC) Impulse control disease Memory impairment Parkinson's disease (HCC) Scoliosis Tardive dyskinesia SURGICAL HISTORY History reviewed. No pertinent surgical history. CURRENT MEDICATIONS Previous Medications ACETAMINOPHEN (TYLENOL) 325 MG TABLET Take 325 mg by mouth. AMANTADINE (SYMMETREL) 100 MG CAPSULE TAKE 1 CAP BY MOUTH TWICE A DAY AMOXICILLIN-CLAVULANATE (AUGMENTIN) 875-125 MG TABLET Take 1 tablet by mouth in the morning and 1 tablet in the evening. Do all this for 10 days. CARBIDOPA-LEVODOPA (SINEMET) 25-100 MG TABLET Take by mouth. CEPHALEXIN (KEFLEX) 500 MG CAPSULE TAKE 1 CAPSULE BY MOUTH EVERY 12 HOURS FOR 7 DAYS CHOLECALCIFEROL (VITAMIN D-3) 50 MCG (2000 UT) CAPSULE Take 2,000 Units by mouth daily. CHOLECALCIFEROL (VITAMIN D-3) 50 MCG (2000 UT) CAPSULE 2,000 Units. DIVALPROEX (DEPAKOTE ER) 500 MG 24 HR TABLET DIVALPROEX (DEPAKOTE) 500 MG EC TABLET Take 1 tablet by mouth 2 times daily. DIVALPROEX SPRINKLE (DEPAKOTE SPRINKLE) [address] CAPSULE DOCUSATE SODIUM (DSS) 100 MG CAPSULE FLUDROCORTISONE (FLORINEF) 0.1 MG TABLET TAKE 2 TABLETS BY MOUTH AT 8 AM AND 8 PM LOPERAMIDE (IMODIUM) 2 MG CAPSULE Take 2 mg by mouth 3 times daily as needed. LORAZEPAM (ATIVAN) 2 MG TABLET Take 1 tablet by mouth every morning. MELATONIN 5 MG TABLET 5 mg. MIDODRINE (PROAMATINE) 5 MG TABLET Take 10 mg by mouth. MONTELUKAST (SINGULAIR) 10 MG TABLET Take 1 tablet by mouth daily. MULTIPLE VITAMIN (TAB-A-KENNETH/BETA CAROTENE) TABLET PANTOPRAZOLE (PROTONIX) 40 MG EC TABLET Take 40 mg by mouth. POLYETHYLENE GLYCOL, PEG, 3350 (GLYCOLAX) 17 GM/SCOOP POWDER RISPERDAL CONSTA 12.5 MG INJECTION Inject 12.5 mg into the shoulder, thigh, or buttocks every 14 (fourteen) days. RISPERIDONE (RISPERDAL) 1 MG TABLET TRAZODONE (DESYREL) 150 MG TABLET Take 150 mg by mouth. ALLERGIES Patient has no known allergies. FAMILY HISTORY No family history on file. SOCIAL HISTORY Social History Socioeconomic History Marital status: Single Tobacco Use Smoking status: Never Smokeless tobacco: Never Substance and Sexual Activity Alcohol use: Not Currently SCREENINGS PHYSICAL EXAM ED Triage Vitals [03/26/24 1057] Temp Heart Rate Resp BP 36.6 C (97.8 F) 102 18 (!) 144/88 SpO2 Temp Source Heart Rate Source Patient Position 96 % Temporal Monitor -- BP Location FiO2 (%) -- -- Physical Exam Vitals and nursing note reviewed. Constitutional: General: She is not in acute distress. Appearance: Normal appearance. She is normal weight. She is not ill-appearing or toxic-appearing. HENT: Head: Normocephalic and atraumatic. Right Ear: External ear normal. Left Ear: External ear normal. Ears: Comments: TMs are clear bilaterally, small amount of cerumen in the external canals no pain with rehabilitation of either ear no mastoid tenderness. Mouth/Throat: Mouth: Mucous membranes are moist. Pharynx: Oropharynx is clear. Eyes: Extraocular Movements: Extraocular movements intact. Conjunctiva/sclera: Conjunctivae normal. Pupils: Pupils are equal, round, and reactive to light. Cardiovascular: Rate and Rhythm: Normal rate and regular rhythm. Pulses: Normal pulses. Heart sounds: Normal heart sounds. No murmur heard. Pulmonary: Effort: Pulmonary effort is normal. No respiratory distress. Breath sounds: Normal breath sounds. No stridor. No wheezing or rhonchi. Abdominal: Comments: Mild suprapubic tenderness the abdomen is soft and nondistended with normal bowel sounds. Musculoskeletal: General: No swelling, tenderness, deformity or signs of injury. Normal range of motion. Cervical back: Normal range of motion and neck supple. No rigidity or tenderness. Lymphadenopathy: Cervical: No cervical adenopathy. Skin: General: Skin is warm and dry. Capillary Refill: Capillary refill takes less than 2 seconds. Coloration: Skin is not jaundiced or pale. Findings: No bruising or erythema. Neurological: Mental Status: She is alert. Comments: Alert to self, moves all 4 extremities ambulates independently, slightly agitated but redirectable. Psychiatric: Comments: Agitated but redirectable DIAGNOSTIC RESULTS Procedures/EKG: EKG was reviewed by myself. Physician EKG interpretation can be found in [facility] RADIOLOGY (Per Emergency Physician): Interpretation per the Radiologist below, if available at the time of this note: CT abdomen pelvis wo IV contrast Final Result 1. No evidence for calcified collecting system calculi or obstruction. 2. Sigmoid diverticulosis without evidence of diverticulitis. 3. No evidence of mass, lymphadenopathy or inflammatory process. Report Dictated on Electronically Signed By: Jaron Ro MD Electronically Signed Date/Time: 03/26/2024 3:29 PM EDT ED BEDSIDE ULTRASOUND: Performed by ED Physician - none LABS: Labs Reviewed COMPREHENSIVE METABOLIC PANEL - Abnormal Result Value SODIUM 139 POTASSIUM 3.3 (*) CHLORIDE 105 CARBON DIOXIDE 25 ANION GAP 9 UREA NITROGEN 17 CREATININE 0.78 GLUCOSE 99 CALCIUM 9.2 AST (SGOT) 99 (*) ALT 55 (*) ALKALINE PHOSPHATASE 95 ALBUMIN 4.0 BILIRUBIN, TOTAL 1.2 TOTAL PROTEIN 7.2 eGFR >90.0 COMPLETE URINALYSIS - Abnormal Color, Urine Dark Yellow (*) Clarity, Urine Clear pH, Urine 6.0 Leukocytes, Urine Negative Nitrite, Urine Negative Protein, Urine 30 (*) Glucose, Urine Normal Bilirubin, Urine Negative Ketones, Urine 20 (*) Urobilinogen, Urine 3 (*) Blood, Urine Negative Volume, Urine 12 mL RBC, Urine 0-2 WBC, Urine 3-5 Squamous Epithelial, Urine 3-5 Bacteria, Urine Negative Mucus, Urine Moderate (*) SPECIFIC GRAVITY OF URINE (NUMERIC) 1.035 (*) SARS-COV-2, FLU A/B, AND RSV COMBO - Normal SARS-CoV-2 Not Detected Respiratory Syncytial Virus Not Detected Influenza A Not Detected Influenza B Not Detected Narrative: Methodology: real-time, RT-PCR The SARS-CoV-2, Flu A/B, and RSV Combo assay is intended for in vitro diagnostic use under the FDA Emergency Use Authorization (EUA). This test has not been FDA cleared or approved. In compliance with this authorization, please visit www.fda.gov/media/500468/download or www.fda.gov/media/415073/download to access the applicable information sheets. LIPASE - Normal LIPASE 66 MAGNESIUM - Normal MAGNESIUM 2.1 CBC (HEMOGRAM) - Normal Auto WBC 7.7 RBC 4.80 Hemoglobin 15.3 Hematocrit 44.8 MCV 93.3 MCH 31.9 MCHC 34.2 RDW 13.9 Platelets 166 MPV 9.2 TROPONIN I - Normal TROPONIN I 0.022 Narrative: Patients with high levels of Biotin oral intake (ie >5 mg/day) may have falsely decreased Troponin levels. LACTIC ACID WITH REFLEX - Normal LACTIC ACID 1.1 COMPLETE URINALYSIS WITH REFLEX TO CULTURE Narrative: The following orders were created for panel order Urinalysis complete with reflex to Culture. Procedure Abnormality Status --------- ------ Complete Urinalysis[[id number]] Abnormal Final result Please view results for these tests on the individual orders. HCG QUANTITATIVE BLOOD HCG QUANTITATIVE <2 Narrative: Values in should double every 2 to 3 days for the first 6 weeks. Elevated concentrations of human chorionic gonadotropin (hCG) measured in the first trimester of are observed in normal , but may serve as an indication of chorionic carcinoma, hydatiform mole, or multiple . Decreasing hCG concentrations indicate threatened or missed , recent termination of , ectopic , gestosis or intrauterine . Kaya- and postmenopausal females may have detectable hCG concentrations (< or = to 14 mIU/mL) due to pituitary production of hCG. Serum follicle-stimulating hormone measurement may aid in ruling-out in this population. Cutoffs of greater than 20 to 45 mIU/mL have been suggested and are method dependent. False-elevations (called phantom human chorionic gonadotropin: hCG) may occur with patients who have human antianimal or heterophilic antibodies. Some specimens may not dilute linearly due to abnormal forms of hCG. Elevated hCG concentrations not associated with are found in patients with other diseases such as tumors of the germ cells, ovaries, bladder, pancreas, stomach, lungs, and liver. This test is not intended to detect or monitor tumors or gestational trophoblastic disease. All other labs were within normal range or not returned as of this dictation. EMERGENCY DEPARTMENT COURSE and DIFFERENTIAL DIAGNOSIS/MDM: Vitals: Vitals: 03/26/24 1057 03/26/24 1100 03/26/24 1257 BP: (!) 144/88 Pulse: 102 104 Resp: 18 14 Temp: 36.6 C (97.8 F) TempSrc: Temporal SpO2: 96% 95% Weight: 65.8 kg (145 lb) Diagnoses as of 03/26/24 1548 Abdominal pain, generalized Agitation Autistic disorder The patient presented with chief complaint of with chief complaint of agitation, abdominal pain, not sleeping, strengthening other staff at the shelter. Patient is autistic has developmental delay, she was here couple days ago had to give her Ativan and Versed eventually family and shelter employee just wanted to take her back to follow-up as an outpatient. States is gotten worse over the last 3 days. No nausea vomiting but no appetite and the staff states that she is not eating.. The differential diagnosis associated with this patient's presentation includes constipation, viral syndrome, electrolyte tract infection, behavior disorder. Our workup consisted of ordering/reviewing: CBC, CMP, lipase, magnesium, urinalysis, hCG, troponin, lactate, EKG, COVID swab, CT abdomen pelvis without contrast. Diagnostic tests considered but not performed: none To aid in management, I performed an independent interpretation of EKG(s) EKG per my interpretation sinus tachycardia rate of [address] elevation or depression with normal intervals. I also reviewed external records from none. I discussed their care with none. Consideration for escalation of care with: Admission/observation for medication adjustments due to behavior however the staff from shelter states her to take her back to the shelter they will follow-up with the provider for medication adjustments, she required several dosages of medication to sedate her I am Versed, ketamine and then another dose of IV Versed so we can get the CT performed, when she is awake will discharge home with shelter staff.. The patient will be Discharged. Patient is in agreement with this plan. Medications sodium chloride 0.9 % infusion (has no administration in time range) sodium chloride 0.9 % bolus 1,000 mL (1,000 mL IntraVENous New Bag 03/26/24 1309) midazolam (Versed) injection 2.5 mg (2.5 mg IntraMUSCular Given 03/26/24 1145) ketamine (Ketalar) injection 265 mg (265 mg IntraMUSCular Given 03/26/24 1248) midazolam (Versed) injection 2 mg (2 mg IntraVENous Given 03/26/24 1405) REVAL: CRITICAL CARE TIME None CONSULTS: None PROCEDURES: Unless otherwise noted below, none Procedures Patients symptoms are consistent with sepsis, severe sepsis, or septic shock (If yes use .sepsiscoremeasure): no FINAL IMPRESSION 1. Abdominal pain, generalized 2. Agitation 3. Autistic disorder DISPOSITION Discharge 03/26/2024 03:47:52 PM PATIENT REFERRED TO: Desirae Rosario [address] [place] [id number] DISCHARGE MEDICATIONS: New Prescriptions No medications on file (Comment: Please note this report has been produced using speech recognition software and may contain errors related to that system including errors in grammar, punctuation, and spelling, as well as words and phrases that may be inappropriate. If there are any questions or concerns please feel free to contact the dictating provider for clarification.) ANDREW Braswell CNP (electronically signed) Emergency Medicine Provider ANDREW Braswell CNP 03/26/24 1549 [facility] 03-26-2024 Physician Emergency department Note Emergency Department Encounter [facility] EMERGENCY DEPT Patient: Sharla Joiner : 1975 Date of Evaluation: 03/26/2024 ED Supervising Physician: Luci Shah MD I personally evaluated Sharla Joiner and made/approved the management plan and take responsibility for the patient management. This will serve as my Supervisory note and shared attestation. I did perform a substantive portion of the visit including all aspects of the Medical Decision Making. I wore appropriate PPE for the entirety of this encounter. In brief, Sharla Joiner is a 48 y.o. that presents to the emergency department for agitation. Patient brought in by her traffic sign erection supervisor from her shelter. She has autism she does verbalize at baseline but does not make sense at baseline. The traffic sign erection supervisor states she has been complaining of pain when she has bowel movements and she has been aggressive with others not acting herself. She has not been eating drinking or sleeping. She was seen here few days ago and diagnosed with possible ear infection. Tower Supervisor did not report any rash to the groin as they do bathe her. Focused exam: Awake alert hypertensive slightly tachycardic afebrile nontoxic no acute distress pacing around the room Mucous membranes are slightly dry neck is supple no respiratory distress abdominal exam nontender nondistended no peritonitis Extremities without injury or infection. Answers no to any questions asked Moving all extremities spontaneously with steady gait Brief ED course/MDM: 48-year-old female here for not acting herself. Differential infection metabolic disturbance UTI dehydration stroke. Plan is for labs, urine. She may require intramuscular medications to allow for blood and urine to be obtained as she is not willing. Consider CT abdomen pelvis as well. Diagnostics interpreted by me: none I personally discussed the patient's management with other clinicians: none All diagnostic, treatment, and disposition decisions were made by myself in conjunction with the RADHA. For all further details of the patient's emergency department visit, please see their documentation. (Comment: Please note this report has been produced using speech recognition software and may contain errors related to that system including errors in grammar, punctuation, and spelling, as well as words and phrases that may be inappropriate. If there are any questions or concerns please feel free to contact the dictating provider for clarification.) Luci Shah MD Acute Care [facility] Luci Shah MD 03/26/24 1223 [facility] Phone: 03-24-2024 Emergency department Note Mother states the patient is finally at a point where they can take her home and she will go to bed and sleep. Mother states she does not want the lab tests at this time and states she will bring her back if there is a need. Lalit RADHA notified. Matt Mix RN 03/24/242249 [facility] 03-24-2024 Emergency department Note Mother states the patient is finally at a point where they can take her home and she will go to bed and sleep. Mother states she does not want the lab tests at this time and states she will bring her back if there is a need. Lalit RADHA notified. Matt Mix RN 03/24/242249 Pt still pacing in room and unable to draw blood at this time. Matt Mix RN 03/24/242226 Patient very agitated and restless, patient refusing to stay in room and remains uncooperative. Lalti ORNELAS notified. Unable to obtain blood work at this time. Sheridan Deng RN 03/24/24 0097 documented in this encounter [facility] 03-24-2024 Hospital Discharge instructions ANDREW Bermeo CNP - 03/24/2024 10:46 PM EDT Please pick your medications from the pharmacy and take as instructed. Please make appointment to follow-up with ENT in 2 days. Please make appointment to follow-up with your PCP in 2 days. The following attachments cannot be sent through Care Everywhere.Ear Wax Impaction Discharge Instructions ([place])Ear Infections (Otitis Media) in Adults Discharge Instructions ([place])documented in this encounter [facility] 03-24-2024 Emergency department Note Pt still pacing in room and unable to draw blood at this time. Matt Mix RN 03/24/247 [facility] 03-24-2024 Emergency department Note Patient very agitated and restless, patient refusing to stay in room and remains uncooperative. Lalit ORNELAS notified. Unable to obtain blood work at this time. Sheridan Deng RN 03/24/24 5408 [facility] 03-16-2024 Note [facility] nt 03-16-2024 History of Present illness Narrative Sharla Joiner is a 48 year old female who presents with Ear Pain (Left ear and ear lobe pain since yesterday) Patient is a 48-year-old female presenting today with left ear pain. She is here with her caregiver. Caregiver states that the patient started to complain of ear pain yesterday. Patient has not had any drainage from the ear and has not had any fevers, congestion or sore throat. They were concerned for possible infection or even wax impaction so the caregiver wanted to bring the patient in for evaluation of this. PAST MEDICAL HISTORY No date: Acid reflux No date: Developmental disability No date: Incontinence of urine Comment: may get urine dos No date: Infestation by bed bug Comment: 2022 -house was treated No date: Mental retardation Comment: is verbal-can take meds with water-whole No date: Psoriasis Comment: behind ears No date: Seizure (HCC) Comment: had a seizure within last year ,,,@time she was in for throat @[facility] [facility] ,,,grand mal -she was in [place] because chicken caught in her throat ACTIVE PROBLEM LIST Sensory Urge Incontinence Gross Hematuria Preop Testing Current Outpatient Medications Medication Sig Dispense Refill ibuprofen (MOTRIN) 600 mg tablet Take 1 tablet by mouth every 6 hours as needed for pain. 20 tablet 0 acetaminophen (TYLENOL EXTRA STRENGTH) 500 mg tablet Take 1 tablet by mouth every 8 hours as needed for pain. 24 tablet 0 fluoride, sodium, (PREVIDENT) 1.1 % gel 1 application by DENTAL route daily at bedtime. 56 g 3 Chlorhexidine Gluconate (PERIDEX) 0.12 % solution Use 15 mL as instructed two times a day. Rinse around mouth for 30 seconds then expectorate 473 mL 0 Hityuxtqqbmgy-Xgsaikmv-Ahyghp (MULTIVITAMIN 50 PLUS) tab Take 1 tablet by mouth once daily. Ld 78 risperiDONE Microspheres (RISPERDAL CONSTA) 12.5 mg/2 mL susp,ERrecon Inject 12.5 mg intramuscularly every 2 weeks. fludrocortisone (FLORINEF) 0.1 mg tablet Take 0.2 mg by mouth two times a day. divalproex DR (DEPAKOTE) 500 mg EC tablet Take 500 mg by mouth two times a day. LORazepam (ATIVAN) 1 mg tablet Take 1 mg by mouth two times a day. @ 3pm and 8 pm amantadine HCl (SYMMETREL) 100 mg capsule Take 100 mg by mouth two times a day. atropine (ISOPTO ATROPINE) sublingual drops Dissolve 1 Drop under the tongue two times a day. FOR DROOLING acetaminophen (TYLENOL) 500 mg tablet Take 2 tablets by mouth every 8 hours as needed for pain for up to 15 doses. [address] (PROTONIX) 40 mg tablet Take 40 mg by mouth once daily. VITAMIN D-3 50 mcg (2,000 unit) cap Ld 7 midodrine (PROAMITINE) 5 mg tablet Take 10 mg by mouth two times a day. FOR HYPOTENSION montelukast (SINGULAIR) 10 mg tablet Take 10 mg by mouth every morning. divalproex DR (DEPAKOTE) 250 mg EC tablet Take 250 mg by mouth two times a day. LORazepam (ATIVAN) 1 mg tablet Take 2 mg by mouth every morning. traZODone (DESYREL) 50 mg tablet Take 50 mg by mouth daily at bedtime. No current facility-administered medications for this visit. Social History Tobacco Use Smoking status: Never Passive exposure: Never Smokeless tobacco: Never Vaping Use Vaping status: Never Used Substance Use Topics Alcohol use: No Drug use: Never Alcohol Use: No Tobacco Use: Never FAMILY HISTORY Family history unknown: Yes Review of Systems Constitutional: Negative for chills, fever and malaise/fatigue. HENT: Positive for ear pain. Negative for congestion, ear discharge, sinus pain and sore throat. Respiratory: Negative. Cardiovascular: Negative. BP 126/81 Pulse 100 Temp (Src) 99.5 (Temporal) Resp 15 Wt 142 lb (64.4kg) SpO2 96% Physical Exam Vitals and nursing note reviewed. Constitutional: General: She is not in acute distress. Appearance: Normal appearance. She is not ill-appearing. HENT: Head: Normocephalic and atraumatic. Right Ear: Tympanic membrane and ear canal normal. Left Ear: Ear canal normal. Tympanic membrane is erythematous and bulging. Nose: Nose normal. No congestion or rhinorrhea. Mouth/Throat: Mouth: Mucous membranes are moist. Pharynx: Oropharynx is clear. No oropharyngeal exudate or posterior oropharyngeal erythema. Eyes: Extraocular Movements: Extraocular movements intact. Conjunctiva/sclera: Conjunctivae normal. Pupils: Pupils are equal, round, and reactive to light. Cardiovascular: Rate and Rhythm: Normal rate and regular rhythm. Pulmonary: Effort: Pulmonary effort is normal. Breath sounds: Normal breath sounds. Musculoskeletal: Cervical back: Normal range of motion and neck supple. No rigidity or tenderness. Lymphadenopathy: Cervical: No cervical adenopathy. Skin: General: Skin is warm and dry. Neurological: General: No focal deficit present. Mental Status: She is alert and oriented to person, place, and time. ASSESSMENT/PLAN: 1. Left otitis media, unspecified otitis media type - ICD9: 382.9, ICD10: H66.92 - AMOXICILLIN 875 MG TABLET Patient is presenting today with left otitis media. Amoxicillin was sent to the pharmacy and her caregiver is to give her this as directed. Take Tylenol or Motrin if needed for pain. Follow-up at primary care doctor if not improving. Patient agrees and understands the plan at this time. Patient was stable upon discharge from [facility]. Arline Guillermo PA-C documented in this encounter [facility] 01-25-2024 Telephone encounter Note Post op ck via the home care consultant, Annie Alvarez. Pt doing well, reinforced post ops. Kymberly Sethi [facility] Work Phone: 01-25-2024 Miscellaneous Notes Post op ck via the home care consultant, Annie Alvarez. Pt doing well, reinforced post ops. Kymberly Sethi documented in this encounter [facility] 01-24-2024 Note [facility] 01-24-2024 Note HNO ID: [id number] Author: LESA ROWLAND DDS Service: ? Author Type: Resident Type: Progress Notes Filed: 01/24/2024 10:05 Note Text: Post operative medications [facility] 01-24-2024 History of Present illness Narrative Post operative medications documented in this encounter [facility] 01-23-2024 Note [facility] 01-23-2024 Note [facility] 01-23-2024 Note HNO ID: [id number] Author: REINALDO CASTRO RN Service: Nursing Author Type: Registered Nurse Type: Nursing Progress Note Filed: 01/23/2024 11:50 Note Text: Mom will be available for phone call ,for consent for surgery and anesthesia dos [facility] 01-17-2024 Note [facility] 01-17-2024 History of Present illness Narrative I have seen and evaluated the patient and discussed the case with the resident physician. I agree with the assessment and plan as documented in the resident s note. Kymberly Sethi DMD Limited Exam 48 year old special needs patients presents to clinic for preventative evaluation with caregiver Tanja Degroot. Pt guardian is her mother, Isabel Joiner. Unable to obtain radiographs. Caregiver denies acute dental problems or pain. Pt also denies pain. Pt opens for toothbrush. Visual exam completed. Noted no obvious signs of caries. Mild calculus buildup noted. Recommend pt to be seen in the operating room under general anesthesia for more thorough evaluation and treatment planning. Will call guardian to further discuss required paperwork for OR visit. Completed paperwork for caregiver that was scanned into the chart. Dr. Davenport assisted in completion of the exam. Jeff Ambriz DDS documented in this encounter [facility] 01-17-2024 Note [facility] nt 12-23-2023 Hospital Discharge instructions Marcella Ryan PA-C - 12/23/2023 12:08 PM EDT You were seen in the emergency department today for evaluation of left ear pain. On exam, you have impacted earwax. We are sending you with eardrops to use daily in order to help break up that earwax and would like you to follow-up with your primary care provider within 1 week for symptom recheck. Please continue to use Aquaphor and your hydrocortisone cream on the external ears. Return to the emergency department for any new or worsening symptoms, such as, but not limited to, persistent pain/pruritus of the ear, bleeding or drainage from the ears, hearing loss, or fever greater than 101 documented in this encounter [facility] 12-23-2023 Emergency department Note EMERGENCY DEPARTMENT ENCOUNTER Pt Name: Sharla Joiner Birthdate 1975 Date of evaluation: 12/23/2023 ED Provider: Marcelal Ryan PA-C CHIEF COMPLAINT Chief Complaint Patient presents with Earache Left ear pain HISTORY OF PRESENT ILLNESS (Location/Symptom, Timing/Onset, Context/Setting, Quality, Duration, Modifying Factors, Severity) Note limiting factors. I wore appropriate PPE for the entirety of this encounter. HPI Sharla Joiner is a 48 y.o. female with PMH significant for tardive dyskinesia, bipolar 1, autism, Parkinson's, and aggressive behavior who presents to the emergency department with a personal-care tach from [employer], for evaluation of left ear irritation with concern for possible ear infection. According to the tech, the patient has been itching and messing with her left ear for 1 day. She has a history of eczema on the bilateral external ears, that has been well-managed with hydrocortisone cream and Aquaphor. States that she was more irritable than usual this morning and complaining of discomfort in the left ear, so they wanted to bring her in for further evaluation to make sure that she did not have an ear infection. States that she did not take her morning medications this morning and was irritable and aggressive with the staff at the facility. . Spoke with patient's legal guardian Shirley Joiner via telephone at 11:54 and was given consent to treat. She states that the patient does have a history of inner ear infections, but states that she has not had one recently, and has more so been dealing with the dermatitis on the external ear that is thought to be eczema and has been well managed. Denies any other associated or recent sick symptoms. States the patient has otherwise been in her usual state of health. No additional concerns at this time. Nursing Notes were reviewed. Limitations to history: None Outside historians: None REVIEW OF SYSTEMS Review of Systems 12 systems reviewed, positives and pertinent negatives as per HPI. All other systems were reviewed and are negative. PAST MEDICAL HISTORY Past Medical History: Diagnosis Date Aggressive behavior Autistic disorder, residual state Bipolar 1 disorder (HCC) Impulse control disease Memory impairment Parkinson's disease (HCC) Scoliosis Tardive dyskinesia SURGICAL HISTORY History reviewed. No pertinent surgical history. CURRENT MEDICATIONS Discharge Medication List as of 12/23/2023 12:09 PM CONTINUE these medications which have NOT CHANGED Details acetaminophen (Tylenol) 325 MG tablet Take 325 mg by mouth., Historical Med amantadine (Symmetrel) 100 MG capsule TAKE 1 CAP BY MOUTH TWICE A DAY, Historical Med carbidopa-levodopa (Sinemet) 25-100 MG tablet Take by mouth., Starting Tue08/23/2022, Historical Med cephalexin (Keflex) 500 MG capsule TAKE 1 CAPSULE BY MOUTH EVERY 12 HOURS FOR 7 DAYS, Historical Med !! cholecalciferol (Vitamin D-3) 50 MCG (1999 UT) capsule Take 2,000 Units by mouth daily., Starting 11/26/2023, Historical Med !! cholecalciferol (Vitamin D-3) 50 MCG (1999 UT) capsule 2,000 Units., Historical Med divalproex (Depakote ER) 500 MG 24 hr tablet Starting Tia 02/10/2023, Historical Med divalproex (Depakote) 500 MG EC tablet Take 1 tablet by mouth 2 times daily., Historical Med divalproex sprinkle (Depakote Sprinkle) [address] capsule Starting Tia 02/10/2023, Historical Med Docusate Sodium (DSS) 100 MG capsule Historical Med fludrocortisone (Florinef) 0.1 MG tablet TAKE 2 TABLETS BY MOUTH AT 8 AM AND 8 PM, Historical Med loperamide (Imodium) 2 MG capsule Take 2 mg by mouth 3 times daily as needed., Historical Med LORazepam (Ativan) 2 MG tablet Take 1 tablet by mouth every morning., Historical Med melatonin 5 MG tablet 5 mg., Starting Tue04/29/2023, Historical Med midodrine (Proamatine) 5 MG tablet Take 10 mg by mouth., Starting 01/15/2023, Historical Med montelukast (Singulair) 10 MG tablet Take 1 tablet by mouth daily., Starting Tue08/23/2022, Historical Med Multiple Vitamin (Tab-A-Kenneth/Beta Carotene) tablet Historical Med pantoprazole (ProtoNix) 40 MG EC tablet Take 40 mg by mouth., Starting 01/15/2023, Historical Med polyethylene glycol, PEG, 3350 (Glycolax) 17 GM/SCOOP powder Historical Med RisperDAL Consta 12.5 MG injection Inject 12.5 mg into the shoulder, thigh, or buttocks every 14 (fourteen) days., Historical Med risperiDONE (RisperDAL) 1 MG tablet Starting Tue04/29/2023, Historical Med traZODone (Desyrel) 150 MG tablet Take 150 mg by mouth., Historical Med !! - Potential duplicate medications found. Please discuss with provider. ALLERGIES Patient has no known allergies. FAMILY HISTORY No family history on file. SOCIAL HISTORY Social History Socioeconomic History Marital status: Single Tobacco Use Smoking status: Never Smokeless tobacco: Never Substance and Sexual Activity Alcohol use: Not Currently SCREENINGS PHYSICAL EXAM ED Triage Vitals [12/23/23 1142] Temp Heart Rate Resp BP 37.1 C (98.8 F) 81 18 (!) 145/85 SpO2 Temp Source Heart Rate Source Patient Position 98 % Temporal Monitor -- BP Location FiO2 (%) -- -- Physical Exam Vitals and nursing note reviewed. Constitutional: General: She is not in acute distress. Appearance: She is well-developed. HENT: Head: Normocephalic and atraumatic. Ears: Comments: Evidence of dermatitis on the external ears bilaterally without active bleeding or drainage. No evidence of surrounding infection. Right TM fully impacted with dark cerumen. Left TM with a considerable amount of cerumen, though able to see a portion of the TM which appears mildly erythematous, but nonbulging and nonretracted. No evidence of perforation though exam is limited. No tug pain. No mastoid tenderness or fluctuance. No evidence of foreign body. No external canal edema or purulent drainage. Eyes: Conjunctiva/sclera: Conjunctivae normal. Cardiovascular: Rate and Rhythm: Normal rate and regular rhythm. Heart sounds: No murmur heard. Pulmonary: Effort: Pulmonary effort is normal. No respiratory distress. Breath sounds: Normal breath sounds. Abdominal: Palpations: Abdomen is soft. Tenderness: There is no abdominal tenderness. Musculoskeletal: General: No swelling. Cervical back: Neck supple. Skin: General: Skin is warm and dry. Capillary Refill: Capillary refill takes less than 2 seconds. Neurological: Mental Status: She is alert. Psychiatric: Mood and Affect: Mood normal. DIAGNOSTIC RESULTS RADIOLOGY (Per Emergency Physician): Interpretation per the Radiologist below, if available at the time of this note: No orders to display LABS: Labs Reviewed - No data to display All other labs were within normal range or not returned as of this dictation. EMERGENCY DEPARTMENT COURSE and DIFFERENTIAL DIAGNOSIS/MDM: Vitals: Vitals: 12/23/23 1142 BP: (!) 145/85 Pulse: 81 Resp: 18 Temp: 37.1 C (98.8 F) TempSrc: Temporal SpO2: 98% Medications - No data to display I independently evaluated the patient with supervising attending physician available as needed for collaboration. In brief, Sharla Joiner is a 48 y.o. female who presented to the emergency department for evaluation of left ear pain and pruritus x 1 day. Nursing notes and medical records reviewed. Differential considerations included mastoiditis, otitis externa, acute otitis media, cerumen impaction, foreign body On physical examination there is no evidence of mastoiditis or otitis externa. No tug pain, mastoid tenderness or fluctuance, or drainage/edema surrounding the external auditory canal. Patient with stable vital signs with evidence of fever or tachycardia. Examination of tympanic membranes bilaterally limited by amount of cerumen present, though left TM visualized without evidence of bulging, retraction, or perforation. Considered irrigating and removing cerumen from ears for further evaluation, however patient did not take her home medications today and poorly tolerated otoscope examination. Believe given degree of impaction that patient would not tolerate procedure well at this time. As such, believe patient should trial Debrox to loosen up her cerumen to make removal easier, and follow-up with her primary care provider within 1 week for symptom recheck and for better visualization of the tympanic membranes bilaterally. Explained that they should refrain from inserting anything into the ear to avoid TM damage. Explained this to the patient and her patient personal care home administrator and recommended that they continue to use Aquaphor and hydrocortisone cream as needed on the external ear for known dermatitis, believed to be eczema. Explained that they should continue to closely monitor the patient's symptoms, and return to the the emergency department or contact her primary care provider should she develop new or worsening symptoms such as, but not limited to, persistent pain/pruritus, bleeding or drainage from the ear, hearing loss, fever greater than 101, or swelling/tenderness over the mastoid. They expressed understanding and are comfortable and agreeable with plans for discharge FINAL IMPRESSION 1. Dermatitis of ear canal, bilateral 2. Impacted cerumen of right ear 3. Cerumen in auditory canal on examination DISPOSITION Discharge 12/23/2023 12:07:34 PM Shared decision making preformed. PATIENT REFERRED TO: Shayna Rosario DO [address] [facility] [id number] In 1 week For symptom recheck. DISCHARGE MEDICATIONS: Discharge Medication List as of 12/23/2023 12:09 PM START taking these medications Details carbamide peroxide (Debrox) 6.5 % otic solution Administer 5 drops into each ear 2 times daily for 5 days., Starting Tue12/23/2023, Until Tue12/28/2023, Print (Comment: Please note this report has been produced using speech recognition software and may contain errors related to that system including errors in grammar, punctuation, and spelling, as well as words and phrases that may be inappropriate. If there are any questions or concerns please feel free to contact the dictating provider for clarification.) Marcella Ryan PA-C (electronically signed) Emergency Medicine Provider Marcella Ryan PA-C 12/23/23 1229 documented in this encounter [facility] 12-23-2023 Physician Emergency department Note EMERGENCY DEPARTMENT ENCOUNTER Pt Name: Sharla Joiner Birthdate 1975 Date of evaluation: 12/23/2023 ED Provider: Marcella Ryan PA-C CHIEF COMPLAINT Chief Complaint Patient presents with Earache Left ear pain HISTORY OF PRESENT ILLNESS (Location/Symptom, Timing/Onset, Context/Setting, Quality, Duration, Modifying Factors, Severity) Note limiting factors. I wore appropriate PPE for the entirety of this encounter. HPI Sharla Joiner is a 48 y.o. female with PMH significant for tardive dyskinesia, bipolar 1, autism, Parkinson's, and aggressive behavior who presents to the emergency department with a personal-care tach from [employer], for evaluation of left ear irritation with concern for possible ear infection. According to the tech, the patient has been itching and messing with her left ear for 1 day. She has a history of eczema on the bilateral external ears, that has been well-managed with hydrocortisone cream and Aquaphor. States that she was more irritable than usual this morning and complaining of discomfort in the left ear, so they wanted to bring her in for further evaluation to make sure that she did not have an ear infection. States that she did not take her morning medications this morning and was irritable and aggressive with the staff at the facility. . Spoke with patient's legal guardian Shirley Joiner via telephone at 11:54 and was given consent to treat. She states that the patient does have a history of inner ear infections, but states that she has not had one recently, and has more so been dealing with the dermatitis on the external ear that is thought to be eczema and has been well managed. Denies any other associated or recent sick symptoms. States the patient has otherwise been in her usual state of health. No additional concerns at this time. Nursing Notes were reviewed. Limitations to history: None Outside historians: None REVIEW OF SYSTEMS Review of Systems 12 systems reviewed, positives and pertinent negatives as per HPI. All other systems were reviewed and are negative. PAST MEDICAL HISTORY Past Medical History: Diagnosis Date Aggressive behavior Autistic disorder, residual state Bipolar 1 disorder (HCC) Impulse control disease Memory impairment Parkinson's disease (HCC) Scoliosis Tardive dyskinesia SURGICAL HISTORY History reviewed. No pertinent surgical history. CURRENT MEDICATIONS Discharge Medication List as of 12/23/2023 12:09 PM CONTINUE these medications which have NOT CHANGED Details acetaminophen (Tylenol) 325 MG tablet Take 325 mg by mouth., Historical Med amantadine (Symmetrel) 100 MG capsule TAKE 1 CAP BY MOUTH TWICE A DAY, Historical Med carbidopa-levodopa (Sinemet) 25-100 MG tablet Take by mouth., Starting 08/23/2022, Historical Med cephalexin (Keflex) 500 MG capsule TAKE 1 CAPSULE BY MOUTH EVERY 12 HOURS FOR 7 DAYS, Historical Med !! cholecalciferol (Vitamin D-3) 50 MCG (2000 UT) capsule Take 2,000 Units by mouth daily., Starting 11/26/2023, Historical Med !! cholecalciferol (Vitamin D-3) 50 MCG (2000 UT) capsule 2,000 Units., Historical Med divalproex (Depakote ER) 500 MG 24 hr tablet Starting Tia 02/10/2023, Historical Med divalproex (Depakote) 500 MG EC tablet Take 1 tablet by mouth 2 times daily., Historical Med divalproex sprinkle (Depakote Sprinkle) [address] capsule Starting Tia 02/10/2023, Historical Med Docusate Sodium (DSS) 100 MG capsule Historical Med fludrocortisone (Florinef) 0.1 MG tablet TAKE 2 TABLETS BY MOUTH AT 8 AM AND 8 PM, Historical Med loperamide (Imodium) 2 MG capsule Take 2 mg by mouth 3 times daily as needed., Historical Med LORazepam (Ativan) 2 MG tablet Take 1 tablet by mouth every morning., Historical Med melatonin 5 MG tablet 5 mg., Starting Tue04/29/2023, Historical Med midodrine (Proamatine) 5 MG tablet Take 10 mg by mouth., Starting 01/15/2023, Historical Med montelukast (Singulair) 10 MG tablet Take 1 tablet by mouth daily., Starting 08/23/2022, Historical Med Multiple Vitamin (Tab-A-Kenneth/Beta Carotene) tablet Historical Med pantoprazole (ProtoNix) 40 MG EC tablet Take 40 mg by mouth., Starting 01/15/2023, Historical Med polyethylene glycol, PEG, 3350 (Glycolax) 17 GM/SCOOP powder Historical Med RisperDAL Consta 12.5 MG injection Inject 12.5 mg into the shoulder, thigh, or buttocks every 14 (fourteen) days., Historical Med risperiDONE (RisperDAL) 1 MG tablet Starting Tue04/29/2023, Historical Med traZODone (Desyrel) 150 MG tablet Take 150 mg by mouth., Historical Med !! - Potential duplicate medications found. Please discuss with provider. ALLERGIES Patient has no known allergies. FAMILY HISTORY No family history on file. SOCIAL HISTORY Social History Socioeconomic History Marital status: Single Tobacco Use Smoking status: Never Smokeless tobacco: Never Substance and Sexual Activity Alcohol use: Not Currently SCREENINGS PHYSICAL EXAM ED Triage Vitals [12/23/23 1142] Temp Heart Rate Resp BP 37.1 C (98.8 F) 81 18 (!) 145/85 SpO2 Temp Source Heart Rate Source Patient Position 98 % Temporal Monitor -- BP Location FiO2 (%) -- -- Physical Exam Vitals and nursing note reviewed. Constitutional: General: She is not in acute distress. Appearance: She is well-developed. HENT: Head: Normocephalic and atraumatic. Ears: Comments: Evidence of dermatitis on the external ears bilaterally without active bleeding or drainage. No evidence of surrounding infection. Right TM fully impacted with dark cerumen. Left TM with a considerable amount of cerumen, though able to see a portion of the TM which appears mildly erythematous, but nonbulging and nonretracted. No evidence of perforation though exam is limited. No tug pain. No mastoid tenderness or fluctuance. No evidence of foreign body. No external canal edema or purulent drainage. Eyes: Conjunctiva/sclera: Conjunctivae normal. Cardiovascular: Rate and Rhythm: Normal rate and regular rhythm. Heart sounds: No murmur heard. Pulmonary: Effort: Pulmonary effort is normal. No respiratory distress. Breath sounds: Normal breath sounds. Abdominal: Palpations: Abdomen is soft. Tenderness: There is no abdominal tenderness. Musculoskeletal: General: No swelling. Cervical back: Neck supple. Skin: General: Skin is warm and dry. Capillary Refill: Capillary refill takes less than 2 seconds. Neurological: Mental Status: She is alert. Psychiatric: Mood and Affect: Mood normal. DIAGNOSTIC RESULTS RADIOLOGY (Per Emergency Physician): Interpretation per the Radiologist below, if available at the time of this note: No orders to display LABS: Labs Reviewed - No data to display All other labs were within normal range or not returned as of this dictation. EMERGENCY DEPARTMENT COURSE and DIFFERENTIAL DIAGNOSIS/MDM: Vitals: Vitals: 12/23/23 1142 BP: (!) 145/85 Pulse: 81 Resp: 18 Temp: 37.1 C (98.8 F) TempSrc: Temporal SpO2: 98% Medications - No data to display I independently evaluated the patient with supervising attending physician available as needed for collaboration. In brief, Sharla Joiner is a 48 y.o. female who presented to the emergency department for evaluation of left ear pain and pruritus x 1 day. Nursing notes and medical records reviewed. Differential considerations included mastoiditis, otitis externa, acute otitis media, cerumen impaction, foreign body On physical examination there is no evidence of mastoiditis or otitis externa. No tug pain, mastoid tenderness or fluctuance, or drainage/edema surrounding the external auditory canal. Patient with stable vital signs with evidence of fever or tachycardia. Examination of tympanic membranes bilaterally limited by amount of cerumen present, though left TM visualized without evidence of bulging, retraction, or perforation. Considered irrigating and removing cerumen from ears for further evaluation, however patient did not take her home medications today and poorly tolerated otoscope examination. Believe given degree of impaction that patient would not tolerate procedure well at this time. As such, believe patient should trial Debrox to loosen up her cerumen to make removal easier, and follow-up with her primary care provider within 1 week for symptom recheck and for better visualization of the tympanic membranes bilaterally. Explained that they should refrain from inserting anything into the ear to avoid TM damage. Explained this to the patient and her patient personal care home administrator and recommended that they continue to use Aquaphor and hydrocortisone cream as needed on the external ear for known dermatitis, believed to be eczema. Explained that they should continue to closely monitor the patient's symptoms, and return to the the emergency department or contact her primary care provider should she develop new or worsening symptoms such as, but not limited to, persistent pain/pruritus, bleeding or drainage from the ear, hearing loss, fever greater than 101, or swelling/tenderness over the mastoid. They expressed understanding and are comfortable and agreeable with plans for discharge FINAL IMPRESSION 1. Dermatitis of ear canal, bilateral 2. Impacted cerumen of right ear 3. Cerumen in auditory canal on examination DISPOSITION Discharge 12/23/2023 12:07:34 PM Shared decision making preformed. PATIENT REFERRED TO: Shayna Rosario DO [address] [id number] In 1 week For symptom recheck. DISCHARGE MEDICATIONS: Discharge Medication List as of 12/23/2023 12:09 PM START taking these medications Details carbamide peroxide (Debrox) 6.5 % otic solution Administer 5 drops into each ear 2 times daily for 5 days., Starting Tue12/23/2023, Until Tue12/28/2023, Print (Comment: Please note this report has been produced using speech recognition software and may contain errors related to that system including errors in grammar, punctuation, and spelling, as well as words and phrases that may be inappropriate. If there are any questions or concerns please feel free to contact the dictating provider for clarification.) Marcella Ryan PA-C (electronically signed) Emergency Medicine Provider Marcella Ryan PA-C 12/23/23 1229 [facility] 11-24-2023 History of Present illness Narrative Sharla Joiner is a 48 year old female who presents with Ear Problem (B/l ear pain x3ays) and UTI (Urinary frequency w odor x3 days //No chance sti nor ) 48-year-old female presents today with bilateral ear pain in urine frequency for the last 2 days. 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 No fevers reported. History of hematuria per record. Ear Problem UTI Associated symptoms include frequency and hematuria. Pertinent negatives include no chills. PAST MEDICAL HISTORY Diagnosis Date Mental retardation ACTIVE PROBLEM LIST Sensory Urge Incontinence Gross Hematuria Current Outpatient Medications Medication Sig Dispense Refill VITAMIN D-3 50 mcg (2,000 unit) cap midodrine (PROAMITINE) 5 mg tablet risperiDONE (RISPERDAL) 1 mg tablet melatonin 5 mg tablet montelukast (SINGULAIR) [address] (DEPAKOTE) 250 mg EC tablet Take 250 mg by mouth three times daily. LORazepam (ATIVAN) 1 mg tablet 2 mg three times a day. traZODone (DESYREL) 50 mg tablet Take 50 mg by mouth daily at bedtime. amoxicillin (AMOXIL) 875 mg tablet Take 1 tablet by mouth every 12 hours for 10 days. 20 tablet 0 carbamide peroxide (DEBROX) 6.5 % otic solution Use 4-5 Drops in both ears as needed for up to 4 days. [address] (PROTONIX) 40 mg tablet Take 40 mg by mouth. (Patient not taking: Reported on 11/24/2023) No current facility-administered medications for this visit. Social History Tobacco Use Smoking status: Never Passive exposure: Never Smokeless tobacco: Never Vaping Use Vaping Use: Never used Substance Use Topics Alcohol use: No Drug use: Never Alcohol Use: No Tobacco Use: Never FAMILY HISTORY Family history unknown: Yes Review of Systems Constitutional: Negative for chills, diaphoresis, fever, malaise/fatigue and weight loss. HENT: Positive for ear pain. Genitourinary: Positive for dysuria, frequency and hematuria. All other systems reviewed and are negative. Pulse 94 Temp 98.3 Resp 18 Wt 125 lb (56.7kg) SpO2 98% Physical Exam Vitals and nursing note reviewed. Constitutional: General: She is not in acute distress. Appearance: Normal appearance. She is normal weight. She is not ill-appearing, toxic-appearing or diaphoretic. HENT: Head: Normocephalic. Right Ear: Tenderness present. No laceration, drainage or swelling. No middle ear effusion. There is impacted cerumen. Left Ear: Ear canal and external ear normal. Tenderness present. No laceration, drainage or swelling. No middle ear effusion. There is no impacted cerumen. No foreign body. No mastoid tenderness. No PE tube. No hemotympanum. Tympanic membrane is not injected, scarred, perforated, erythematous, retracted or bulging. Ears: Comments: Left ear canal with cerumen present but not impacted Nose: Nose normal. Mouth/Throat: Mouth: Mucous membranes are moist. Pharynx: Oropharynx is clear. No oropharyngeal exudate or posterior oropharyngeal erythema. Cardiovascular: Rate and Rhythm: Normal rate and regular rhythm. Pulses: Normal pulses. Heart sounds: Normal heart sounds. Pulmonary: Effort: Pulmonary effort is normal. No respiratory distress. Breath sounds: Normal breath sounds. No stridor. No wheezing, rhonchi or rales. Chest: Chest wall: No tenderness. Abdominal: General: Abdomen is flat. Bowel sounds are normal. Palpations: Abdomen is soft. Tenderness: There is no right CVA tenderness or left CVA tenderness. Musculoskeletal: Cervical back: Normal range of motion. No rigidity or tenderness. Lymphadenopathy: Cervical: No cervical adenopathy. Skin: General: Skin is warm and dry. Capillary Refill: Capillary refill takes less than 2 seconds. Neurological: Mental Status: She is alert. ASSESSMENT/PLAN: 1. Hematuria, unspecified type - ICD9: 599.70, ICD10: R31.9 (primary diagnosis) - URINALYSIS, DIPSTICK ONLY - URINE CULTURE 2. Ear pain, bilateral - ICD9: 388.70, ICD10: H92.03 Treating patient due to ear impaction and can not rule out otitis media. - AMOXICILLIN 875 MG TABLET 3. Impacted cerumen of right ear - ICD9: 380.4, ICD10: H61.21 - DEBROX 6.5 % EAR DROPS Facility form filled out. If worsening of condition shortness or breath, fever/chill please go to ER for evaluation. Sia Weinstein APRN.CASE MANAGEMENT ASSISTANT This note was partially generated using [employer] recognition system, and there may be some incorrect words, spellings, and punctuation that were not noted in checking the note before saving. documented in this encounter [facility] 11-24-2023 Instructions Sia Weinstein APRN.CNP - 11/24/2023 4:24 PM EDT Urine culture will go out today to check for any bacteria growth. Please follow-up with primary care provider as patient does have history of hematuria. Both ears have wax present where right ear is impacted. Tried Debrox if no relief can come in for an ear wash when not having any ear pain or can follow-up with senior research associate. documented in this encounter [facility] 08-11-2023 Emergency department Note EMERGENCY DEPARTMENT ENCOUNTER Pt Name: Sharla Joiner Birthdate 1975 Date of evaluation: 08/11/2023 ED Provider: Johnathon Rivas DO CHIEF COMPLAINT Chief Complaint Patient presents with Head Injury HISTORY OF PRESENT ILLNESS (Location/Symptom, Timing/Onset, Context/Setting, Quality, Duration, Modifying Factors, Severity) Note limiting factors. I wore appropriate PPE for the entirety of this encounter. HPI Sharla Joiner is a 48 y.o. female with past medical history of MRDD who presents to the emergency department with chief complaint of fall. Patient was getting out of the van at the shelter and stepped wrong and fell onto the right side of her head. Reports occurred immediately prior to arrival. Caregiver present and states that initially she that she was having a headache however that has since resolved. Patient reports some right forehead pain now. Denies paresthesias, weakness, blurry vision. Nursing Notes were reviewed. Limitations to history: MRDD Outside historians: Caregiver REVIEW OF SYSTEMS 14 systems reviewed and otherwise acutely negative except as in the [place] PAST MEDICAL HISTORY Past Medical History: Diagnosis Date Aggressive behavior Autistic disorder, residual state Bipolar 1 disorder (HCC) Impulse control disease Memory impairment Parkinson's disease Scoliosis Tardive dyskinesia SURGICAL HISTORY No past surgical history on file. CURRENT MEDICATIONS Previous Medications DIVALPROEX (DEPAKOTE ER) 500 MG 24 HR TABLET DIVALPROEX SPRINKLE (DEPAKOTE SPRINKLE) [address] CAPSULE LORAZEPAM (ATIVAN) 1 MG TABLET MIDODRINE (PROAMATINE) 5 MG TABLET Take 10 mg by mouth. PANTOPRAZOLE (PROTONIX) 40 MG EC TABLET Take 40 mg by mouth. RISPERIDONE (RISPERDAL) 1 MG TABLET ALLERGIES Patient has no known allergies. FAMILY HISTORY No family history on file. SOCIAL HISTORY Social History Socioeconomic History Marital status: Single Tobacco Use Smoking status: Never Smokeless tobacco: Never Substance and Sexual Activity Alcohol use: Not Currently SCREENINGS PHYSICAL EXAM ED Triage Vitals [08/11/23 1746] Temp Heart Rate Resp BP 36.8 C (98.2 F) 71 18 134/85 SpO2 Temp Source Heart Rate Source Patient Position 97 % Temporal Monitor -- BP Location FiO2 (%) -- -- Constitutional alert, in NAD, Head- normocephalic, atraumatic, no cephalohematoma or lacerations Eyes- PERRL, pupils 3 -->2 mm b/l, EOMI, no signs of trauma Nose- no blood in nares bilaterally, no fluid drainage, no septal hematoma Face- midface stable and nontender Mouth- oropharynx clear, no fractured/loose teeth, no dental malocculsion Neck- trachea midline with no masses, no anterior crepitance on exam, C-spine nontender and no stepoffs Back- no stepoffs, nontender, no abrasions CV- RRR, no murmurs Chest- nontender, no crepitance, lungs CTA bilaterally Abdomen- soft, nontender, nondistended Pelvis- stable to compression and nontender Extremities- atraumatic, nontender at all joints, FROM to passive manipulation Neuro- MAEx4 spontaneously, strength and sensation grossly intact, Skin Lacerations, neg. Abrasions, neg DIAGNOSTIC RESULTS RADIOLOGY (Per Emergency Physician): Interpretation per the Radiologist below, if available at the time of this note: CT head wo IV contrast (Results Pending) LABS: Labs Reviewed - No data to display All other labs were within normal range or not returned as of this dictation. EMERGENCY DEPARTMENT COURSE and DIFFERENTIAL DIAGNOSIS/MDM: Vitals: Vitals: 08/11/23 1746 08/11/23 1751 BP: 134/85 Pulse: 71 Resp: 18 Temp: 36.8 C (98.2 F) TempSrc: Temporal SpO2: 97% Weight: 60.2 kg (132 lb 12.8 oz) Diagnoses as of 08/11/231846 Head injury, initial encounter Upon arrival to the ED, patient afebrile, hemodynamically stable and saturating well on room air. patient is neurologically intact, however given history of MRDD, will obtain CT head. Patient signed out pending CT head. External records reviewed: Outpatient notes Per chart review, patient was seen 05/28/2023 for UTI by primary care physician Diagnostics interpreted by me: none Discussions with other clinicians: none Chronic conditions impacting care: Past Medical History: Diagnosis Date Aggressive behavior Autistic disorder, residual state Bipolar 1 disorder (HCC) Impulse control disease Memory impairment Parkinson's disease Scoliosis Tardive dyskinesia Social determinants of health affecting care: none ED Medications managed: Medications acetaminophen (Tylenol) tablet 650 mg (650 mg Oral Given 08/11/231818) FINAL IMPRESSION 1. Head injury, initial encounter DISPOSITION PATIENT REFERRED TO: No follow-up provider specified. DISCHARGE MEDICATIONS: New Prescriptions No medications on file Dispo pending CT head (Comment: Please note this report has been produced using speech recognition software and may contain errors related to that system including errors in grammar, punctuation, and spelling, as well as words and phrases that may be inappropriate. If there are any questions or concerns please feel free to contact the dictating provider for clarification.) Johnathon Rivas DO (electronically signed) Emergency Medicine Provider Johnathon Rivas DO 08/11/231846 Pt presents to the er with her caregiver , caregiver states she fell today and hit the front of her head, pt denies any LOC , pt denies pain documented in this encounter [facility] 08-11-2023 Emergency department Triage note Pt presents to the er with her caregiver , caregiver states she fell today and hit the front of her head, pt denies any LOC , pt denies pain [facility] 08-11-2023 Physician Emergency department Note EMERGENCY DEPARTMENT ENCOUNTER Pt Name: Sharla Joiner Birthdate 1975 Date of evaluation: 08/11/2023 ED Provider: Johnathon Rivas DO CHIEF COMPLAINT Chief Complaint Patient presents with Head Injury HISTORY OF PRESENT ILLNESS (Location/Symptom, Timing/Onset, Context/Setting, Quality, Duration, Modifying Factors, Severity) Note limiting factors. I wore appropriate PPE for the entirety of this encounter. HPI Sharla Joiner is a 48 y.o. female with past medical history of MRDD who presents to the emergency department with chief complaint of fall. Patient was getting out of the van at the shelter and stepped wrong and fell onto the right side of her head. Reports occurred immediately prior to arrival. Caregiver present and states that initially she that she was having a headache however that has since resolved. Patient reports some right forehead pain now. Denies paresthesias, weakness, blurry vision. Nursing Notes were reviewed. Limitations to history: MRDD Outside historians: Caregiver REVIEW OF SYSTEMS 14 systems reviewed and otherwise acutely negative except as in the [place] [facility] MEDICAL HISTORY Past Medical History: Diagnosis Date Aggressive behavior Autistic disorder, residual state Bipolar 1 disorder (HCC) Impulse control disease Memory impairment Parkinson's disease Scoliosis Tardive dyskinesia SURGICAL HISTORY No past surgical history on file. CURRENT MEDICATIONS Previous Medications DIVALPROEX (DEPAKOTE ER) 500 MG 24 HR TABLET DIVALPROEX SPRINKLE (DEPAKOTE SPRINKLE) [address] CAPSULE LORAZEPAM (ATIVAN) 1 MG TABLET MIDODRINE (PROAMATINE) 5 MG TABLET Take 10 mg by mouth. PANTOPRAZOLE (PROTONIX) 40 MG EC TABLET Take 40 mg by mouth. RISPERIDONE (RISPERDAL) 1 MG TABLET ALLERGIES Patient has no known allergies. FAMILY HISTORY No family history on file. SOCIAL HISTORY Social History Socioeconomic History Marital status: Single Tobacco Use Smoking status: Never Smokeless tobacco: Never Substance and Sexual Activity Alcohol use: Not Currently SCREENINGS PHYSICAL EXAM ED Triage Vitals [08/11/23 1746] Temp Heart Rate Resp BP 36.8 C (98.2 F) 71 18 134/85 SpO2 Temp Source Heart Rate Source Patient Position 97 % Temporal Monitor -- BP Location FiO2 (%) -- -- Constitutional alert, in NAD, Head- normocephalic, atraumatic, no cephalohematoma or lacerations Eyes- PERRL, pupils 3 -->2 mm b/l, EOMI, no signs of trauma Nose- no blood in nares bilaterally, no fluid drainage, no septal hematoma Face- midface stable and nontender Mouth- oropharynx clear, no fractured/loose teeth, no dental malocculsion Neck- trachea midline with no masses, no anterior crepitance on exam, C-spine nontender and no stepoffs Back- no stepoffs, nontender, no abrasions CV- RRR, no murmurs Chest- nontender, no crepitance, lungs CTA bilaterally Abdomen- soft, nontender, nondistended Pelvis- stable to compression and nontender Extremities- atraumatic, nontender at all joints, FROM to passive manipulation Neuro- MAEx4 spontaneously, strength and sensation grossly intact, Skin Lacerations, neg. Abrasions, neg DIAGNOSTIC RESULTS RADIOLOGY (Per Emergency Physician): Interpretation per the Radiologist below, if available at the time of this note: CT head wo IV contrast (Results Pending) LABS: Labs Reviewed - No data to display All other labs were within normal range or not returned as of this dictation. EMERGENCY DEPARTMENT COURSE and DIFFERENTIAL DIAGNOSIS/MDM: Vitals: Vitals: 08/11/23 1746 08/11/23 1751 BP: 134/85 Pulse: 71 Resp: 18 Temp: 36.8 C (98.2 F) TempSrc: Temporal SpO2: 97% Weight: 60.2 kg (132 lb 12.8 oz) Diagnoses as of 08/11/23 1847 Head injury, initial encounter Upon arrival to the ED, patient afebrile, hemodynamically stable and saturating well on room air. patient is neurologically intact, however given history of MRDD, will obtain CT head. Patient signed out pending CT head. External records reviewed: Outpatient notes Per chart review, patient was seen 05/28/2023 for UTI by primary care physician Diagnostics interpreted by me: none Discussions with other clinicians: none Chronic conditions impacting care: Past Medical History: Diagnosis Date Aggressive behavior Autistic disorder, residual state Bipolar 1 disorder (HCC) Impulse control disease Memory impairment Parkinson's disease Scoliosis Tardive dyskinesia Social determinants of health affecting care: none ED Medications managed: Medications acetaminophen (Tylenol) tablet 650 mg (650 mg Oral Given 08/11/231818) FINAL IMPRESSION 1. Head injury, initial encounter DISPOSITION PATIENT REFERRED TO: No follow-up provider specified. DISCHARGE MEDICATIONS: New Prescriptions No medications on file Dispo pending CT head (Comment: Please note this report has been produced using speech recognition software and may contain errors related to that system including errors in grammar, punctuation, and spelling, as well as words and phrases that may be inappropriate. If there are any questions or concerns please feel free to contact the dictating provider for clarification.) Johnathon Rivas DO (electronically signed) Emergency Medicine Provider Johnathon Rivas DO 08/11/230 [facility] [employer] 05-29-2023 Note . MICRO - Microbiology PROCEDURE: Urine Culture [*1] SOURCE: Urine BODY SITE: COLLECTED DATE/TIME: 05/28/2023 13:42 EST RECEIVED DATE/TIME: 05/28/2023 14:11 EST START DATE/TIME: 05/28/2023 14:11 EST FREE TEXT SOURCE: FINAL REPORTS Final Report [] Verified Date/Time/Personnel: 05/29/2023 14:41 EST >100,000 cfu/ml Mixed growth consistent with normal urogenital hailey. Performing Locations *1: This test was performed at: [address], [address] , [facility] ([place]) 05-28-2023 Hospital Discharge instructions Patient Education 05/28/2023 16:34:52 Bladder Infection, Female (Adult) Bladder Infection, Female (Adult) Urine is normally doesn't have any bacteria in it. But bacteria can get into the urinary tract from the skin around the rectum. Or they can travel in the blood from elsewhere in the body. Once they are in your urinary tract, they can cause infection in the urethra (urethritis), the bladder (cystitis), or the kidneys (pyelonephritis). The most common place for an infection is in the bladder. This is called a bladder infection. This is one of the most common infections in women. Most bladder infections are easily treated. They are not serious unless the infection spreads to the kidney. The phrases bladder infection, UTI, and cystitis are often used to describe the same thing. But they are not always the same. Cystitis is an inflammation of the bladder. The most common cause of cystitis is an infection. Symptoms The infection causes inflammation in the urethra and bladder. This causes many of the symptoms. The most common symptoms of a bladder infection are: Pain or burning when urinating Having to urinate more often than usual Urgent need to urinate Only a small amount of urine comes out Blood in urine Abdominal discomfort. This is usually in the lower abdomen above the pubic bone. Cloudy urine Strong- or bad-smelling urine Unable to urinate (urinary retention) Unable to hold urine in (urinary incontinence) Fever Loss of appetite Confusion (in older adults) Causes Bladder infections are not contagious. You can't get one from someone else, from a toilet seat, or from sharing a bath. The most common cause of bladder infections is bacteria from the bowels. The bacteria get onto the skin around the opening of the urethra. From there, they can get into the urine and travel up to the bladder, causing inflammation and infection. This usually happens because of: Wiping improperly after urinating. Always wipe from front to back. Bowel incontinence Procedures such as having a catheter inserted Older age Not emptying your bladder. This can allow bacteria a chance to grow in your urine. Dehydration Constipation Sex Use of a diaphragm for control Treatment Bladder infections are diagnosed by a urine test. They are treated with antibiotics and usually clear up quickly without complications. Treatment helps prevent a more serious kidney infection. Medicines Medicines can help in the treatment of a bladder infection: Take antibiotics until they are used up, even if you feel better. It is important to finish them to make sure the infection has cleared. You can use acetaminophen or ibuprofen for pain, fever, or discomfort, unless another medicine was prescribed. If you have chronic liver or kidney disease, talk with your healthcare provider before using these medicines. Also talk with your provider if you've ever had a stomach ulcer or gastrointestinal bleeding, or are taking blood-thinner medicines. If you are given phenazopydridine to reduce burning with urination, it will cause your urine to become a bright orange color. This can stain clothing. Care and prevention These self-care steps can help prevent future infections: Drink plenty of fluids to prevent dehydration and flush out your bladder. Do this unless you must restrict fluids for other health reasons, or your doctor told you not to. Proper cleaning after going to the bathroom is important. Wipe from front to back after using the toilet to prevent the spread of bacteria. Urinate more often. Don't try to hold urine in for a long time. Wear loose-fitting clothes and cotton underwear. Avoid tight-fitting pants. Improve your diet and prevent constipation. Eat more fresh fruit and vegetables, and fiber, and less junk and fatty foods. Avoid sex until your symptoms are gone. Avoid caffeine, alcohol, and spicy foods. These can irritate your bladder. Urinate right after intercourse to flush out your bladder. If you use control pills and have frequent bladder infections, discuss it with your doctor. Follow-up care Call your healthcare provider if all symptoms are not gone after 3 days of treatment. This is especially important if you have repeat infections. If a culture was done, you will be told if your treatment needs to be changed. If directed, you can call to find out the results. If X-rays were done, you will be told if the results will affect your treatment. Call 911 Call 911 if any of the following occur: Trouble breathing Hard to wake up or confusion Fainting or loss of consciousness Rapid heart rate When to seek medical advice Call your healthcare provider right away if any of these occur: Fever of 100.4 F (38.0 C) or higher, or as directed by your healthcare provider Symptoms are not better by the third day of treatment Back or belly (abdominal) pain that gets worse Repeated vomiting, or unable to keep medicine down Weakness or dizziness Vaginal discharge Pain, redness, or swelling in the outer vaginal area (labia) [id number] [employer]. [address] [place] [address]. All rights reserved. This information is not intended as a substitute for professional medical care. Always follow your healthcare professional's instructions. Follow Up Care 05/28/2023 12:31:18 With:Go to emergency room if symptoms worsen Address:Unknown When:2-4 days With:DESIRAE ROSARIO MD, [facility] Address: [facility] [address] [address]- When:2-4 days [facility] 05-28-2023 Emergency department Discharge summary Discharge Instructions Thank you for allowing [facility] to assist you with your healthcare needs. The following is important discharge information regarding your hospital visit. Diagnosis from Today's Visit Agitation or violent behavior Closed head injury without LOC UTI - Urinary tract infection What to Do Next Instructions from Your Care Team No qualifying data available. Post Acute Orders No qualifying data available. You Need to Schedule the Following Appointments Follow Up with Go to emergency room if symptoms worsen When Within 2-4 days Follow Up with DESIRAE ROSARIO MD, [facility] When Within 2-4 days Where: [facility] [address] [facility] [address] [place] [address]- Allergies [facility] Medications Please ask your primary doctor or pharmacist before taking any other medication not listed, including over the counter drugs, herbal medications, vitamins and or supplements as they may interact with your home medications. What How Much When Instructions Last Dose New cephalexin (cephalexin 500 mg oral capsule) 1 cap by mouth Every 12 hours Duration: 7 Days Printed Prescription Unchanged cholecalciferol (Vitamin D3 50 mcg (2000 intl units) oral capsule) 1 cap by mouth Every day Unchanged divalproex sodium (divalproex sodium 250 mg oral tablet, extended release) 3 tab(s) by mouth Two (2) times a day Duration: 30 Days Unchanged fludrocortisone (fludrocortisone 0.1 mg oral tablet) 2 tab(s) by mouth Once a day Unchanged midodrine (midodrine 5 mg oral tablet) 2 tab(s) by mouth Two (2) times a day Unchanged montelukast (montelukast 10 mg oral tablet) 1 tab(s) by mouth Once a day Unchanged pantoprazole (Protonix 40 mg oral enteric coated tablet) 1 tab(s) by mouth Once a day Please take this list to your next doctor s visit. Bring all medications you take, including over the counter medications, herbals and other supplements with you to your doctor s visit. Patients and families are reminded to discard old lists and to update any records with all medication providers or retail pharmacies. Education Materials Bladder Infection, Female (Adult) Urine is normally doesn't have any bacteria in it. But bacteria can get into the urinary tract from the skin around the rectum. Or they can travel in the blood from elsewhere in the body. Once they are in your urinary tract, they can cause infection in the urethra (urethritis), the bladder (cystitis), or the kidneys (pyelonephritis). The most common place for an infection is in the bladder. This is called a bladder infection. This is one of the most common infections in women. Most bladder infections are easily treated. They are not serious unless the infection spreads to the kidney. The phrases bladder infection, UTI, and cystitis are often used to describe the same thing. But they are not always the same. Cystitis is an inflammation of the bladder. The most common cause of cystitis is an infection. Symptoms The infection causes inflammation in the urethra and bladder. This causes many of the symptoms. The most common symptoms of a bladder infection are: Pain or burning when urinating Having to urinate more often than usual Urgent need to urinate Only a small amount of urine comes out Blood in urine Abdominal discomfort. This is usually in the lower abdomen above the pubic bone. Cloudy urine Strong- or bad-smelling urine Unable to urinate (urinary retention) Unable to hold urine in (urinary incontinence) Fever Loss of appetite Confusion (in older adults) Causes Bladder infections are not contagious. You can't get one from someone else, from a toilet seat, or from sharing a bath. The most common cause of bladder infections is bacteria from the bowels. The bacteria get onto the skin around the opening of the urethra. From there, they can get into the urine and travel up to the bladder, causing inflammation and infection. This usually happens because of: Wiping improperly after urinating. Always wipe from front to back. Bowel incontinence Procedures such as having a catheter inserted Older age Not emptying your bladder. This can allow bacteria a chance to grow in your urine. Dehydration Constipation Sex Use of a diaphragm for control Treatment Bladder infections are diagnosed by a urine test. They are treated with antibiotics and usually clear up quickly without complications. Treatment helps prevent a more serious kidney infection. Medicines Medicines can help in the treatment of a bladder infection: Take antibiotics until they are used up, even if you feel better. It is important to finish them to make sure the infection has cleared. You can use acetaminophen or ibuprofen for pain, fever, or discomfort, unless another medicine was prescribed. If you have chronic liver or kidney disease, talk with your healthcare provider before using these medicines. Also talk with your provider if you've ever had a stomach ulcer or gastrointestinal bleeding, or are taking blood-thinner medicines. If you are given phenazopydridine to reduce burning with urination, it will cause your urine to become a bright orange color. This can stain clothing. Care and prevention These self-care steps can help prevent future infections: Drink plenty of fluids to prevent dehydration and flush out your bladder. Do this unless you must restrict fluids for other health reasons, or your doctor told you not to. Proper cleaning after going to the bathroom is important. Wipe from front to back after using the toilet to prevent the spread of bacteria. Urinate more often. Don't try to hold urine in for a long time. Wear loose-fitting clothes and cotton underwear. Avoid tight-fitting pants. Improve your diet and prevent constipation. Eat more fresh fruit and vegetables, and fiber, and less junk and fatty foods. Avoid sex until your symptoms are gone. Avoid caffeine, alcohol, and spicy foods. These can irritate your bladder. Urinate right after intercourse to flush out your bladder. If you use control pills and have frequent bladder infections, discuss it with your doctor. Follow-up care Call your healthcare provider if all symptoms are not gone after 3 days of treatment. This is especially important if you have repeat infections. If a culture was done, you will be told if your treatment needs to be changed. If directed, you can call to find out the results. If X-rays were done, you will be told if the results will affect your treatment. Call 911 Call 911 if any of the following occur: Trouble breathing Hard to wake up or confusion Fainting or loss of consciousness Rapid heart rate When to seek medical advice Call your healthcare provider right away if any of these occur: Fever of 100.4 F (38.0 C) or higher, or as directed by your healthcare provider Symptoms are not better by the third day of treatment Back or belly (abdominal) pain that gets worse Repeated vomiting, or unable to keep medicine down Weakness or dizziness Vaginal discharge Pain, redness, or swelling in the outer vaginal area (labia) [id number] [employer]. [address] [place] [address], [place] [address]. All rights reserved. This information is not intended as a substitute for professional medical care. Always follow your healthcare professional's instructions. Additional Information VACCINATE! IT SAVES LIVES! Members of the community who have not yet received the COVID-19 vaccine and would like to receive it can visit one of [facility] vaccine clinics. There are many vaccine clinic locations within the [facility]. For locations and available times, please visit www.[email or web address].[place].gov/. It is important to note that some COVID mobile vaccine clinics are held outdoors and may be canceled in rainy or stormy conditions. To learn more about pediatric vaccinations (ages 5-11), we invite you to visit the [facility] webpage. [email or web address]/pages/ [email or web address]-Bfufm-Ksobnikooej-Frequently-Ask ed-Questions.html To learn more about the COVID-19 vaccine, we invite you to visit the CDC website for a list of frequently asked questions. https://www.cdc.gov/coronavirus/2019- ncov/vaccines/faq.html [facility] Patient Portal Access Instructions: Stay connected with your healthcare team and access your personal medical information anytime with the [facility] Patient Portal. If you would like a full copy of your medical records please contact the [facility] Medical Records Department Tuesday through Tuesday between 8a.m. and 4:30p.m. Please follow the directions below to access the portal: 1.Access the email account you provided upon registration to the hospital.2.Look for an invitation email from [facility].3.Open the email and access the invitation link: Accept Invitation to [facility]4.Fill in the required welch to create your account. Sign into [email or web address] with your username and password that you created in the above steps to stay up to date. You can then view a summary of results, a summary of your visits, and the ability to download your summaries to your computer or send the information securely to a physician. Remember that your healthcare information is confidential, so carefully consider who you will allow to register on the [facility] Patient Portal for access to your information. You can also access the [facility] Patient Portal on the M[employer] radha. Simply click on Health Records under Health Data and then click on the [employer] logo. HOW TO SAFELY DISPOSE OF PRESCRIPTION MEDICATIONS Please use one of the following methods to safely dispose of your unused medications. 1.Use a drug disposal kit: the drug disposal pouch allows you to safely discard your old and unused drugs. Ask your nurse to give you one when you are discharged.2.Visit a local take-back location: Many local pharmacies and police departments have programs that collect old and unwanted prescription drugs. Call your local pharmacy or go to http://[employer]/8P0Fg8m to find one close to you.3.Make use of household items: Use cat litter or old coffee grounds to dispose medications if other options are not available. Mix your drugs with these household products, seal them in an airtight container and throw it into the garbage. Call [facility]: [phone] to be sure your drugs can be disposed of in this way. Some medicines may require a different approach.4.Never flush your medications down the toilet. IF YOU HAVE BEEN PRESCRIBED AN OPIOIDS FOR PAIN If you have been prescribed an opioid (such as hydrocodone, oxycodone or morphine), it is critical to understand the possible side effects and risks of opioid pain medications. Even when taken as directed, opioids can have several side effects including: Tolerance, meaning you might need to take more of a medication for the same pain relief. Nausea, vomiting and/or constipation. Sleepiness, dizziness, dry mouth, confusion, depression or itching. Physical dependence, meaning you have withdrawal symptoms when a medication is stopped ? this can develop within a few days. KNOW YOUR RESPONSIBILITIES It is important to know exactly how much and how often to take the opioid pain medications you are prescribed. Never take opioids in higher amounts or more often than prescribed. Do not combine opioids with alcohol or other drugs that cause drowsiness, such as benzodiazepines, also known as benzos, including diazepam and alprazolam, muscle relaxants or sleep aids. Never sell or share prescription opioids. This is illegal. Store opioids in a secure place and out of reach of others (including children, family, friends and visitors). The last page(s) of this document has been signed and retained as a CHART COPY Signatures Patient Education Materials Bladder Infection, Female (Adult) Medication Leaflets My discharge plan and instructions have been reviewed and explained to me and I,ELFEGO SHARLA Mohan understand my current condition and have read and understand these discharge instructions. I have received a written copy of the plan/instructions. If I have questions, I am aware that I should contact my doctor. Patient/Case Management Rn Signature: __ Date/Time: Relationship to Patient: Witness Name/Signature: Date/Time: [facility] 05-28-2023 Note ORIGINAL EXAMINATION: CT OF THE HEAD WITHOUT ECGMVDVW24/11/2023 3:[address] HEAD OR BRAIN W/O CONTRAST TECHNIQUE: RADIATION DOSE REDUCTION: This exam was performed according to the departmental dose-optimization program which includes automated exposure control, adjustment of the mA and/or kV according to patient size and/or use of iterative reconstruction technique. COMPARISON: CT 08/24/2022 HISTORY: ORDERING SYSTEM PROVIDED HISTORY: Reason for Exam: PATE, PT HAD FALL, CLOSED HEAD INJURY W/OUT LOC, HEMATOMA ON LEFT TEMPORAL/PARITIAL AREA, NO NEURO HX, REPEATS DONE DUE TO PT MOTION headache, FINDINGS: There is some degradation of the images from patient motion artifacts. Some of the images are repeated. There is no recent parenchymal or extra axial intracranial hemorrhage, mass effect or midline shift. No obvious acute territorial infarct. No hydrocephalus. No displaced or depressed calvarial fracture is seen. The density in the superior sagittal sinus is normal. There is no large extracranial hematoma. There is probably some asymmetric left temporoparietal region extracranial soft tissue swelling from trauma. The visualized paranasal sinuses and mastoids are clear. Orbital contents are symmetric. IMPRESSION: No intracranial acute posttraumatic abnormality. . Interpreted by: Cornell Yanez MD Preliminary Report By: Cornell Yanez MD Electronically signed By Cornell Yanez MD Dictated Date: 05/28/2023 3:31:58 PM Prelim Date: 05/28/2023 3:34:15 PM Sign Date: 05/28/2023 3:34:15 PM Ordering Provider: TE LEE [facility] 05-28-2023 Evaluation + Plan note Diagnostic Tests PendingUrine Culture 05/28/23 [facility] 05-28-2023 History of Present illness Narrative Sharla Joiner is a 47 year old female who presents with Urinary Problem (Burning with urination. 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 ) and Head Injury (And cheek on bed this morning. ) 47-year-old female who is MRDD presented here for behavioral cognitive changes. Patient's caregiver stated that she gets this changes she usually had some type of infection. She has a bruise on the right side of her face and a bruise on the left side of her head possibly due to injury. PAST MEDICAL HISTORY Diagnosis Date Mental retardation ACTIVE PROBLEM LIST Sensory Urge Incontinence Gross Hematuria Current Outpatient Medications Medication Sig Dispense Refill pantoprazole DR (PROTONIX) 40 mg tablet Take 40 mg by mouth. VITAMIN D-3 50 mcg (2,000 unit) cap TAB-A-KENNETH [address] (DEPAKOTE) 500 mg EC tablet midodrine (PROAMITINE) 5 mg tablet fludrocortisone (FLORINEF) 0.1 mg tablet risperiDONE (RISPERDAL) 1 mg tablet melatonin 5 mg tablet docusate sodium (COLACE) 100 mg capsule montelukast (SINGULAIR) [address] (DEPAKOTE) 250 mg EC tablet Take 250 mg by mouth three times daily. LORazepam (ATIVAN) 1 mg tablet 2 mg three times a day. traZODone (DESYREL) 50 mg tablet Take 50 mg by mouth daily at bedtime. gabapentin (NEURONTIN) 600 mg tablet Take 600 mg by mouth three times daily. (Patient not taking: Reported on 05/28/2023) amantadine HCl (SYMMETREL) 100 mg capsule 100 mg twice daily. (Patient not taking: Reported on 05/28/2023) loratadine 10 mg cap Take by mouth. (Patient not taking: Reported on 05/28/2023) oxybutynin ER (DITROPAN XL) 10 mg 24 hr tablet Take 10 mg by mouth once daily. (Patient not taking: Reported on 05/28/2023) benztropine (COGENTIN) 1 mg tablet Take 1.5 mg by mouth twice daily. (Patient not taking: Reported on 05/28/2023) medroxyPROGESTERone (DEPO-PROVERA) 150 mg/mL injection Inject 150 mg intramuscularly every 12 weeks. (Patient not taking: Reported on 05/28/2023) mupirocin (BACTROBAN) 2 % TOPICAL cream Apply to affected area three times daily. APPLY TO AFFECTED AREA (Patient not taking: Reported on 05/28/2023) 15 g 1 No current facility-administered medications for this visit. Social History Tobacco Use Smoking status: Never Passive exposure: Never Smokeless tobacco: Never Vaping Use Vaping Use: Never used Substance Use Topics Alcohol use: No Drug use: Never Alcohol Use: No Tobacco Use: Never FAMILY HISTORY Family history unknown: Yes Review of Systems All other systems reviewed and are negative. BP 129/88 Pulse 77 Temp (Src) 98.7 (Temporal) Resp 16 Wt 125 lb (56.7kg) SpO2 98% Physical Exam Vitals and nursing note reviewed. HENT: Right Ear: Tympanic membrane, ear canal and external ear normal. Left Ear: Tympanic membrane, ear canal and external ear normal. Nose: Nose normal. Cardiovascular: Rate and Rhythm: Normal rate and regular rhythm. Pulses: Normal pulses. Heart sounds: Normal heart sounds. Pulmonary: Effort: Pulmonary effort is normal. Breath sounds: Normal breath sounds. Neurological: Mental Status: She is alert. ASSESSMENT/PLAN: 1. Dysuria - ICD9: 788.1, ICD10: R30.0 (primary diagnosis) - URINALYSIS, DIPSTICK ONLY - URINE CULTURE 2. Cognitive and behavioral changes - ICD9: 799.59, 312.9, ICD10: R41.89, R46.89 Patient unable to urinate here, but urine normal do not see any signs of infection physically patient sent to the ER for possible straight catheter obtained urine. Jason Abarca documented in this encounter [facility] 04-07-2023 Note HNO ID: [id number] Author: Sue Everett RT(Marques) Service: Radiology Author Type: Technologist Type: Progress Notes Filed: 04/07/2023 9:51 AM Note Text: Radiology Service Progress Note PATIENT NAME: Sharla Joiner DATE OF SERVICE: April 07, 2023 TIME: 9:51 AM PATIENT IDENTITY VERIFICATION COMPLETED USING TWO (2) IDENTIFIERS: Name and Date of confirmed by patient verbally. FALL SCREENING: Has the patient had 2 falls in the last year or 1 fall with injury or currently using an Ambulatory Assistive Device (Walker, Cane, Wheelchair, Crutches, etc.)? No PATIENT GENDER DATA: Female. status: : No status: NO. PATIENT RELEVANT IMPLANT DATA REVIEWED: Not Applicable RADIOLOGY DEPARTMENT: General X-ray: Exam(s) Completed: GI/ Procedure(s): Esophogram with barium contrast PERIPHERAL IV DATA: Not applicable SIGNED BY: RT Angelina(Marques) April 07, 2023 9:51 AM [facility] 04-07-2023 History of Present illness Narrative Radiology Service Progress Note PATIENT NAME: Sharla Joiner DATE OF SERVICE: April 07, 2023 TIME: 9:51 AM PATIENT IDENTITY VERIFICATION COMPLETED USING TWO (2) IDENTIFIERS: Name and Date of confirmed by patient verbally. FALL SCREENING: Has the patient had 2 falls in the last year or 1 fall with injury or currently using an Ambulatory Assistive Device (Walker, Cane, Wheelchair, Crutches, etc.)? No PATIENT GENDER DATA: Female. status: : No status: NO. PATIENT RELEVANT IMPLANT DATA REVIEWED: Not Applicable RADIOLOGY DEPARTMENT: General X-ray: Exam(s) Completed: GI/ Procedure(s): Esophogram with barium contrast PERIPHERAL IV DATA: Not applicable SIGNED BY: RT Angelina(Marques) April 07, 2023 9:51 AM documented in this encounter [facility] 01-15-2023 Hospital Discharge instructions Patient Education 01/15/2023 16:53:53 Seizure, Adult, Zowp-hy-Mqbj Seizure, Adult A seizure is a sudden burst of abnormal electrical activity in the brain. Seizures usually last from 30 seconds to 2 minutes. They can cause many different symptoms. Usually, seizures are not harmful unless they last a long time. What are the causes? Common causes of this condition include: Fever or infection. Conditions that affect the brain, such as: ?A brain abnormality that you were born with. ?A brain or head injury. ?Bleeding in the brain. ?A tumor. ?Stroke. ?Brain disorders such as autism or cerebral palsy. Low blood sugar. Conditions that are passed from parent to child (are inherited). Problems with substances, such as: ?Having a reaction to a drug or a medicine. ?Suddenly stopping the use of a substance (withdrawal). In some cases, the cause may not be known. A person who has repeated seizures over time without a clear cause has a condition called epilepsy. What increases the risk? You are more likely to get this condition if you have: A family history of epilepsy. Had a seizure in the past. A brain disorder. A history of head injury, lack of oxygen at , or strokes. What are the signs or symptoms? There are many types of seizures. The symptoms vary depending on the type of seizure you have. Examples of symptoms during a seizure include: Shaking (convulsions). Stiffness in the body. Passing out (losing consciousness). Head nodding. Staring. Not responding to sound or touch. Loss of bladder control and bowel control. Some people have symptoms right before and right after a seizure happens. Symptoms before a seizure may include: Fear. Worry (anxiety). Feeling like you may vomit (nauseous). Feeling like the room is spinning (vertigo). Feeling like you saw or heard something before (corina mabry). Odd tastes or smells. Changes in how you see. You may see flashing lights or spots. Symptoms after a seizure happens can include: Confusion. Sleepiness. Headache. Weakness on one side of the body. How is this treated? Most seizures will stop on their own in under 5 minutes. In these cases, no treatment is needed. Seizures that last longer than 5 minutes will usually need treatment. Treatment can include: Medicines given through an IV tube. Avoiding things that are known to cause your seizures. These can include medicines that you take for another condition. Medicines to treat epilepsy. Surgery to stop the seizures. This may be needed if medicines do not help. Follow these instructions at home: Medicines Take sqvy-bht-upgddnv and prescription medicines only as told by your doctor. Do not eat or drink anything that may keep your medicine from working, such as alcohol. Activity Do not do any activities that would be dangerous if you had another seizure, like driving or swimming. Wait until your doctor says it is safe for you to do them. If you live in the [place] ask your local DMV (department of [employer]) when you can drive. Get plenty of rest. Teaching others Teach friends and family what to do when you have a seizure. They should: Lay you on the ground. Protect your head and body. Loosen any tight clothing around your neck. Turn you on your side. Not hold you down. Not put anything into your mouth. Know whether or not you need emergency care. Stay with you until you are better. General instructions Contact your doctor each time you have a seizure. Avoid anything that gives you seizures. Keep a seizure diary. Write down: ?What you think caused each seizure. ?What you remember about each seizure. Keep all follow-up visits as told by your doctor. This is important. Contact a doctor if: You have another seizure. You have seizures more often. There is any change in what happens during your seizures. You keep having seizures with treatment. You have symptoms of being sick or having an infection. Get help right away if: You have a seizure that: ?Lasts longer than 5 minutes. ?Is different than seizures you had before. ?Makes it harder to breathe. ?Happens after you hurt your head. You have any of these symptoms after a seizure: ?Not being able to speak. ?Not being able to use a part of your body. ?Confusion. ?A bad headache. You have two or more seizures in a row. You do not wake up right after a seizure. You get hurt during a seizure. These symptoms may be an emergency. Do not wait to see if the symptoms will go away. Get medical help right away. Call your local emergency services (911 in the [place] Do not drive yourself to the hospital. Summary Seizures usually last from 30 seconds to 2 minutes. Usually, they are not harmful unless they last a long time. Do not eat or drink anything that may keep your medicine from working, such as alcohol. Teach friends and family what to do when you have a seizure. Contact your doctor each time you have a seizure. This information is not intended to replace advice given to you by your health care provider. Make sure you discuss any questions you have with your health care provider. Document Released: 12/20/2008 Document Revised: 09/21/2019 Document Reviewed: 09/21/2019 [employer] Patient Education 2020 [employer]. 01/15/2023 16:53:18 Dysphagia Dysphagia Dysphagia is trouble swallowing. This condition occurs when solids and liquids stick in a person's throat on the way down to the stomach, or when food takes longer to get to the stomach than usual. You may have problems swallowing food, liquids, or both. You may also have pain while trying to swallow. It may take you more time and effort to swallow something. What are the causes? This condition may be caused by: Muscle problems. They may make it difficult for you to move food and liquids through the esophagus, which is the tube that connects your mouth to your stomach. Blockages. You may have ulcers, scar tissue, or inflammation that blocks the normal passage of food and liquids. Causes of these problems include: ?Acid reflux from your stomach into your esophagus (gastroesophageal reflux). ?Infections. ?Radiation treatment for cancer. ?Medicines taken without enough fluids to wash them down into your stomach. Stroke. This can affect the nerves and make it difficult to swallow. Nerve problems. These prevent signals from being sent to the muscles of your esophagus to squeeze (contract) and move what you swallow down to your stomach. Globus pharyngeus. This is a common problem that involves a feeling like something is stuck in your throat or a sense of trouble with swallowing, even though nothing is wrong with the swallowing passages. Certain conditions, such as cerebral palsy or Parkinson's disease. What are the signs or symptoms? Common symptoms of this condition include: A feeling that solids or liquids are stuck in your throat on the way down to the stomach. Pain while swallowing. Coughing or gagging while trying to swallow. Other symptoms include: Food moving back from your stomach to your mouth (regurgitation). Noises coming from your throat. Chest discomfort with swallowing. A feeling of fullness when swallowing. Drooling, especially when the throat is blocked. Heartburn. How is this diagnosed? This condition may be diagnosed by: Barium X-ray. In this test, you will swallow a white liquid that sticks to the inside of your esophagus. X-ray images are then taken. Endoscopy. In this test, a flexible telescope is inserted down your throat to look at your esophagus and your stomach. CT scans and an MRI. How is this treated? Treatment for dysphagia depends on the cause of this condition, such as: If the dysphagia is caused by acid reflux or infection, medicines may be used. They may include antibiotics and heartburn medicines. If the dysphagia is caused by problems with the muscles, swallowing therapy may be used to help you strengthen your swallowing muscles. You may have to do specific exercises to strengthen the muscles or stretch them. If the dysphagia is caused by a blockage or mass, procedures to remove the blockage may be done. You may need surgery and a feeding tube. You may need to make diet changes. Ask your health care provider for specific instructions. Follow these instructions at home: Medicines Take fjqb-axi-jnfscxr and prescription medicines only as told by your health care provider. If you were prescribed an antibiotic medicine, take it as told by your health care provider. Do not stop taking the antibiotic even if you start to feel better. Eating and drinking Follow any diet changes as told by your health care provider. Work with a diet and nutrition counselor (dietitian) to create an eating plan that will help you get the nutrients you need in order to stay healthy. Eat soft foods that are easier to swallow. Cut your food into small pieces and eat slowly. Take small bites. Eat and drink only when you are sitting upright. Do not drink alcohol or caffeine. If you need help quitting, ask your health care provider. General instructions Check your weight every day to make sure you are not losing weight. Do not use any products that contain nicotine or tobacco, such as cigarettes, e-cigarettes, and chewing tobacco. If you need help quitting, ask your health care provider. Keep all follow-up visits as told by your health care provider. This is important. Contact a health care provider if you: Lose weight because you cannot swallow. Cough when you drink liquids. Cough up partially digested food. Get help right away if you: Cannot swallow your saliva. Have shortness of breath, a fever, or both. Have a hoarse voice and also have trouble swallowing. Summary Dysphagia is trouble swallowing. This condition occurs when solids and liquids stick in a person's throat on the way down to the stomach. You may cough or gag while trying to swallow. Dysphagia has many possible causes. Treatment for dysphagia depends on the cause of the condition. Keep all follow-up visits as told by your health care provider. This is important. This information is not intended to replace advice given to you by your health care provider. Make sure you discuss any questions you have with your health care provider. Document Released: 07/01/2001 Document Revised: 11/28/2019 Document Reviewed: 11/28/2019 [employer] Patient Education 2020 [employer]. Follow Up Care 01/04/2023 18:37:38 With:[facility] call RN report to : Address:Unknown When:1-2 days With:DESIRAE ROSARIO Address: [facility] [address] [address]- Business (1) When:1-2 days [facility] 01-15-2023 Discharge summary Date of Service 01/15/2023 Discharge Diagnosis 1. Esophageal obstruction due to food impaction (K22.2 - ICD-10-CM) 2. Vomiting ([id number] - PNED) 3. Dysphagia (R13.10 - ICD-10-CM) 4. Bipolar disorder (F31.9 - ICD-10-CM) Ordered: LORazepam 1 mg oral tablet; Dose : 2 mg = 2 tab(s), Oral, TID, X 7 day(s), # 42 tab(s), 0 Refill(s), 01/22/23 12:55:00 EDT, Bipolar disorder Autism, 57.1 5. Autism (F84.0 - ICD-10-CM) Ordered: LORazepam 1 mg oral tablet; Dose : 2 mg = 2 tab(s), Oral, TID, X 7 day(s), # 42 tab(s), 0 Refill(s), 01/22/23 12:55:00 EDT, Bipolar disorder Autism, 57.1 6. Seizure (R56.9 - ICD-10-CM) Acidosis, unspecified (E87.20 - ICD-10-CM) Autistic disorder (F84.0 - ICD-10-CM) Unspecified intellectual disabilities (F79 - ICD-10-CM) Anxiety disorder, unspecified (F41.9 - ICD-10-CM) Bipolar disorder, unspecified (F31.9 - ICD-10-CM) Thrombocytopenia, unspecified (D69.6 - ICD-10-CM) Nervousness (R45.0 - ICD-10-CM) Other disorders of electrolyte and fluid balance, not elsewhere classified (E87.8 - ICD-10-CM) Bipolar disorder, currently in remission, most recent episode unspecified (F31.70 - ICD-10-CM) Foreign body in stomach, initial encounter (T18.2XXA - ICD-10-CM) Unspecified convulsions (R56.9 - ICD-10-CM) Epilepsy, unspecified, not intractable, without status epilepticus (G40.909 - ICD-10-CM) Hypotension, unspecified (I95.9 - ICD-10-CM) Food in esophagus causing other injury, initial encounter (T18.128A - ICD-10-CM) Food in esophagus causing other injury, initial encounter (T18.128A - ICD-10-CM) Pneumonitis due to inhalation of food and vomit (J69.0 - ICD-10-CM) Additional Orders: Ordered: Discharge,01/15/23 12:58:00 EDT, Discharged to: Detention Facility Other status: EKG,01/13/23 7:57:00 EDT(Complete) Ordered: Protonix 40 mg oral enteric coated tablet,Dose : 40 mg = 1 tab(s), Oral, qDay, 0 Refill(s) Ordered: Transfer of Care Activity,As instructed by therapy, 01/15/23 12:58:00 EDT Ordered: Transfer of Care Admission Level of Care,Level of Care SNF, 01/15/23 12:58:56 EDT Ordered: Transfer of Care Code Status,Full Code, Constant Order Ordered: Transfer of Care Diet,Type of Diet: Regular Diet, 01/15/23 12:58:00 EDT Ordered: Transfer of Care OT,Reason for therapy: generalized weakness, 01/15/23 12:58:00 EDT Ordered: Transfer of Care Orders Electronically Signed By,01/15/23 12:58:00 EDT, LEXI BALDERRAMA MD Ordered: Transfer of Care PT,Reason for therapy: generalized weakness, 01/15/23 12:58:00 EDT Ordered: Transfer of Care Prognosis,Fair, Patient Aware: Yes Ordered: Transfer of Care Rehab Potential,Rehab potential fair, 01/15/23 12:58:56 EDT Ordered: divalproex sodium 250 mg oral tablet, extended release,Dose : 750 mg = 3 tab(s), Oral, BID, # 180 tab(s), 0 Refill(s), Pharmacy: [facility] #[id number], 170.2, cm, 01/05/23 14:35:00 EDT, Height Ordered: fludrocortisone 0.1 mg oral tablet,Dose : 0.2 mg = 2 tab(s), Oral, qDay, 0 Refill(s) Ordered: midodrine 5 mg oral tablet,Dose : 10 mg = 2 tab(s), Oral, BID, 0 Refill(s) End of Orders Hospital Course 47-year-old female with a past medical history of bipolar disorder, autism spectrum disorder, MRDD who presented to [facility] on 01/04/2023 with a 1 day history of decreased oral intake. Also noted to have productive cough as well as spitting up food. Noted leukocytosis on admission with WBC of 17.6, urinalysis not concerning for infection. Chest x-ray demonstrated bronchial wall thickening suggestive of acute on chronic bronchitis. CT thorax demonstrated irregular appearance of the lower cervical/upper thoracic esophagus. GI was consulted and patient underwent EGD on 01/05/2023, ENT was consulted to assist with the procedure and a large meat bolus was removed. Started on PPI. Speech therapy was consulted who recommended modified barium swallow, patient was noncompliant with barium swallow. Speech therapy reevaluated the patient and she was placed on a pur ed diet with thin liquids. Patient did have episode of hypoxia with tachypnea, treated with IV antibiotics for aspiration pneumonia. Rapid response was called on 01/10/2023 with concerns for seizure activity, patient was visualized to having full body seizure. Patient was on Ativan and Depakote for psychiatric history, no history of seizures. Had not received these medications in several days due to being NPO. Was treated with IV Ativan. Was postictal. Neurology was consulted. Depakote was increased to 750 mg twice daily. Neurology recommended outpatient follow-up. On 01/13/2023 patient was noted to have bradycardia associated with hypotension. EKG demonstrated sinus bradycardia. Cardiology consulted, echocardiogram was done which demonstrated An EF of 55%. No other abnormalities. Cardiology did not recommend any further interventions. Heart rate improved, ranging from low 60s to mid 70s. Blood pressure stable in the high 80s to low 90s. To continue on midodrine and Florinef. Medically optimized for discharge, to be discharged to [facility]. Discussed with mother over the phone. Discussed with Dr. Balderrama. Allergies NKA Consults Consult to Physician - Ordered -- 01/05/23 1:52:00 EDT, JOSE FLEMING MD, Routine, MRDD patient regurgitating all solids and liquids x1day. Consult to Physician - Ordered -- 01/10/23 10:05:00 EDT, SAJI REDDING MD, Routine, new onset seizure Consult to Physician - Ordered -- 01/13/23 8:37:00 EDT, TYLER TORRES MD, Routine, symptomatic bradycardia Physical Exam Vitals and Measurements T: 36.9 C (Oral) TMIN: 36.8 C (Oral) TMAX: 37.5 C (Oral) HR: 63 RR: 22 BP: 88/45 SpO2: 94% Weight Dosing Weight: 57.1 kg (01/05/23) Dosing Weight: 57.1 kg (01/04/23) Physical Exam General: Alert, will answer yes/no questions Skin: No rash. Warm, Dry, Intact HEENT: Head is normocephalic and atraumatic. No lesions. Pupils equal in size. Extraocular movements within normal limits. Nose: No septal deviation. Mouth: Oropharynx mucosa is without lesion. Neck: Supple. No lymphadenopathy, thyromegaly noted. Lungs: Bilaterally clear/diminished breath sounds with no crepitation or wheeze. Unlabored Cardiovascular: Heart is regular rhythm, S1S2, No extra-audible heart tones Abdomen: Abdomen is soft, nontender. Bowel sounds positive all four quadrants. Extremities: No clubbing, cyanosis or edema. Peripheral pulses palpable. No calf tenderness. Adequate peripheral circulation. Neurological: Following simple commands, moving all extremities. Code Status Code Status - Ordered -- 01/05/23 1:43:00 EDT, Full Code, Constant Order Admission Date 01/05/2023 Discharge Date 01/15/2023 Patient Instructions You will be discharged to assisted facility. Continue on your current medications. Return Emergency Department for any new or worsening symptoms. Medications New Prescription fludrocortisone (fludrocortisone 0.1 mg oral tablet)2 tab(s) by mouth once a day. midodrine (midodrine 5 mg oral tablet)2 tab(s) by mouth two (2) times a day. pantoprazole (Protonix 40 mg oral enteric coated tablet)1 tab(s) by mouth once a day. Changed LORazepam (LORazepam 1 mg oral tablet)2 tab(s) by mouth three (3) times a day for 7 Days. Refills: 0. divalproex sodium (divalproex sodium 250 mg oral tablet, extended release)3 tab(s) by mouth two (2) times a day for 30 Days. Refills: 0. Unchanged cholecalciferol (Vitamin D3 50 mcg (2000 intl units) oral capsule)1 cap by mouth every day. montelukast (montelukast 10 mg oral tablet)1 tab(s) by mouth once a day. Discontinued carbidopa-levodopa (carbidopa-levodopa 25 mg-100 mg oral tablet)1 tab(s) by mouth three (3) times a day. traZODone (traZODone 150 mg oral tablet)1 tab(s) by mouth daily at bedtime. Follow Up Appointments Transfer of Care OT - Ordered -- Reason for therapy: generalized weakness, 01/15/23 12:58:00 EDT Transfer of Care PT - Ordered -- Reason for therapy: generalized weakness, 01/15/23 12:58:00 EDT Follow Up Labs/Studies Discharge Labs No Follow-up Labs Discharge Studies No Follow-up Studies Discharge Diet Transfer of Care Diet - Ordered -- Type of Diet: Regular Diet, 01/15/23 12:58:00 EDT Discharge Activity Transfer of Care Activity - Ordered -- As instructed by therapy, 01/15/23 12:58:00 EDT Condition on Discharge Stable Discharge Disposition Home Information Provided To Patient, mother over the phone. Time Spent 34 minutes spent on discharge with greater than 50% that time spent on direct patient care and care coordination. Digitally Signed by LUCI SALCEDO on 01/15/2023 01:03 PM [facility] 01-15-2023 Note Discharge Instructions Thank you for allowing [facility] to assist you with your healthcare needs. The following is important discharge information regarding your hospital visit. Your Care Team DESIRAE ROSARIO MD Your Diagnosis Esophageal obstruction due to food impaction Vomiting Dysphagia Bipolar disorder Autism Seizure What to do next Follow Up Appointments Follow Up with [facility], call RN report to : When Within 1-2 days Follow Up with DESIRAE ROSARIO When Within 1-2 days Where: [facility] [address] [facility] [address] [place] [id number]- [facility] (1) The Following Activity and Diet Have Been Ordered for You Transfer of Care Activity - Ordered -- As instructed by therapy, 01/15/23 12:58:00 EDT Transfer of Care Diet - Ordered -- Type of Diet: [id number], 01/15/23 17:11:00 EDT The Following Equipment Has Been Ordered for You No qualifying data available. The Following Treatments Have Been Ordered for You Discharge Labs No qualifying data available. Discharge Radiology No qualifying data available. Other Therapies Transfer of Care OT - Ordered -- Reason for therapy: generalized weakness, 01/15/23 12:58:00 EDT Transfer of Care PT - Ordered -- Reason for therapy: generalized weakness, 01/15/23 12:58:00 EDT Post Acute Orders Transfer of Care Admission Level of Care - Ordered -- Level of Care SNF, 01/15/23 12:58:56 EDT Transfer of Care Code Status - Ordered -- Full Code, Constant Order Transfer of Care Orders Electronically Signed By - Ordered -- 01/15/23 12:58:00 EDT, LEXI BALDERRAMA MD Transfer of Care Prognosis - Ordered -- Fair, Patient Aware: Yes Transfer of Care Rehab Potential - Ordered -- Rehab potential fair, 01/15/23 12:58:56 EDT Someone Will Contact You Regarding These Home Health Referrals No home referrals have been ordered for you. No one will call you. Allergies NKA Medications Please ask your primary doctor or pharmacist before taking any other medication not listed, including over the counter drugs, herbal medications, vitamins and or supplements as they may interact with your home medications. What How Much When Why Instructions Last Dose New fludrocortisone (fludrocortisone 0.1 mg oral tablet) 2 tab(s) by mouth Once a day New midodrine (midodrine 5 mg oral tablet) 2 tab(s) by mouth Two (2) times a day New pantoprazole (Protonix 40 mg oral enteric coated tablet) 1 tab(s) by mouth Once a day Changed LORazepam (LORazepam 1 mg oral tablet) 2 tab(s) by mouth Three (3) times a day Bipolar disorder Autism Duration: 7 Days Printed Prescription Changed divalproex sodium (divalproex sodium 250 mg oral tablet, extended release) 3 tab(s) by mouth Two (2) times a day Duration: 30 Days Pickup at [facility] #[id number] Unchanged cholecalciferol (Vitamin D3 50 mcg (2000 intl units) oral capsule) 1 cap by mouth Every day Unchanged montelukast (montelukast 10 mg oral tablet) 1 tab(s) by mouth Once a day Pharmacy Information [facility] #[id number]: [address] [place] [place], [place] [id number] [phone] What How Much When Comments Stop Taking carbidopa-levodopa (carbidopa-levodopa 25 mg-100 mg oral tablet) 1 tab(s) by mouth Three (3) times a day Stop Taking traZODone (traZODone 150 mg oral tablet) 1 tab(s) by mouth Daily at bedtime Please take this list to your next doctor s visit. Bring all medications you take, including over the counter medications, herbals and other supplements with you to your doctor s visit. Patients and families are reminded to discard old lists and to update any records with all medication providers or retail pharmacies. Education Materials Seizure, Adult A seizure is a sudden burst of abnormal electrical activity in the brain. Seizures usually last from 30 seconds to 2 minutes. They can cause many different symptoms. Usually, seizures are not harmful unless they last a long time. What are the causes? Common causes of this condition include: Fever or infection. Conditions that affect the brain, such as: ? A brain abnormality that you were born with. ? A brain or head injury. ? Bleeding in the brain. ? A tumor. ? Stroke. ? Brain disorders such as autism or cerebral palsy. Low blood sugar. Conditions that are passed from parent to child (are inherited). Problems with substances, such as: ? Having a reaction to a drug or a medicine. ? Suddenly stopping the use of a substance (withdrawal). In some cases, the cause may not be known. A person who has repeated seizures over time without a clear cause has a condition called epilepsy. What increases the risk? You are more likely to get this condition if you have: A family history of epilepsy. Had a seizure in the past. A brain disorder. A history of head injury, lack of oxygen at , or strokes. What are the signs or symptoms? There are many types of seizures. The symptoms vary depending on the type of seizure you have. Examples of symptoms during a seizure include: Shaking (convulsions). Stiffness in the body. Passing out (losing consciousness). Head nodding. Staring. Not responding to sound or touch. Loss of bladder control and bowel control. Some people have symptoms right before and right after a seizure happens. Symptoms before a seizure may include: Fear. Worry (anxiety). Feeling like you may vomit (nauseous). Feeling like the room is spinning (vertigo). Feeling like you saw or heard something before (corina mabry). Odd tastes or smells. Changes in how you see. You may see flashing lights or spots. Symptoms after a seizure happens can include: Confusion. Sleepiness. Headache. Weakness on one side of the body. How is this treated? Most seizures will stop on their own in under 5 minutes. In these cases, no treatment is needed. Seizures that last longer than 5 minutes will usually need treatment. Treatment can include: Medicines given through an IV tube. Avoiding things that are known to cause your seizures. These can include medicines that you take for another condition. Medicines to treat epilepsy. Surgery to stop the seizures. This may be needed if medicines do not help. Follow these instructions at home: Medicines Take unbv-ams-scihiee and prescription medicines only as told by your doctor. Do not eat or drink anything that may keep your medicine from working, such as alcohol. Activity Do not do any activities that would be dangerous if you had another seizure, like driving or swimming. Wait until your doctor says it is safe for you to do them. If you live in the [place] ask your local DMV (department of [employer]) when you can drive. Get plenty of rest. Teaching others Teach friends and family what to do when you have a seizure. They should: Lay you on the ground. Protect your head and body. Loosen any tight clothing around your neck. Turn you on your side. Not hold you down. Not put anything into your mouth. Know whether or not you need emergency care. Stay with you until you are better. General instructions Contact your doctor each time you have a seizure. Avoid anything that gives you seizures. Keep a seizure diary. Write down: ? What you think caused each seizure. ? What you remember about each seizure. Keep all follow-up visits as told by your doctor. This is important. Contact a doctor if: You have another seizure. You have seizures more often. There is any change in what happens during your seizures. You keep having seizures with treatment. You have symptoms of being sick or having an infection. Get help right away if: You have a seizure that: ? Lasts longer than 5 minutes. ? Is different than seizures you had before. ? Makes it harder to breathe. ? Happens after you hurt your head. You have any of these symptoms after a seizure: ? Not being able to speak. ? Not being able to use a part of your body. ? Confusion. ? A bad headache. You have two or more seizures in a row. You do not wake up right after a seizure. You get hurt during a seizure. These symptoms may be an emergency. Do not wait to see if the symptoms will go away. Get medical help right away. Call your local emergency services (911 in the [place] Do not drive yourself to the hospital. Summary Seizures usually last from 30 seconds to 2 minutes. Usually, they are not harmful unless they last a long time. Do not eat or drink anything that may keep your medicine from working, such as alcohol. Teach friends and family what to do when you have a seizure. Contact your doctor each time you have a seizure. This information is not intended to replace advice given to you by your health care provider. Make sure you discuss any questions you have with your health care provider. Document Released: 12/20/2008 Document Revised: 09/21/2019 Document Reviewed: 09/21/2019 [employer] Patient Education 2020 [employer]. Dysphagia Dysphagia is trouble swallowing. This condition occurs when solids and liquids stick in a person's throat on the way down to the stomach, or when food takes longer to get to the stomach than usual. You may have problems swallowing food, liquids, or both. You may also have pain while trying to swallow. It may take you more time and effort to swallow something. What are the causes? This condition may be caused by: Muscle problems. They may make it difficult for you to move food and liquids through the esophagus, which is the tube that connects your mouth to your stomach. Blockages. You may have ulcers, scar tissue, or inflammation that blocks the normal passage of food and liquids. Causes of these problems include: ? Acid reflux from your stomach into your esophagus (gastroesophageal reflux). ? Infections. ? Radiation treatment for cancer. ? Medicines taken without enough fluids to wash them down into your stomach. Stroke. This can affect the nerves and make it difficult to swallow. Nerve problems. These prevent signals from being sent to the muscles of your esophagus to squeeze (contract) and move what you swallow down to your stomach. Globus pharyngeus. This is a common problem that involves a feeling like something is stuck in your throat or a sense of trouble with swallowing, even though nothing is wrong with the swallowing passages. Certain conditions, such as cerebral palsy or Parkinson's disease. What are the signs or symptoms? Common symptoms of this condition include: A feeling that solids or liquids are stuck in your throat on the way down to the stomach. Pain while swallowing. Coughing or gagging while trying to swallow. Other symptoms include: Food moving back from your stomach to your mouth (regurgitation). Noises coming from your throat. Chest discomfort with swallowing. A feeling of fullness when swallowing. Drooling, especially when the throat is blocked. Heartburn. How is this diagnosed? This condition may be diagnosed by: Barium X-ray. In this test, you will swallow a white liquid that sticks to the inside of your esophagus. X-ray images are then taken. Endoscopy. In this test, a flexible telescope is inserted down your throat to look at your esophagus and your stomach. CT scans and an MRI. How is this treated? Treatment for dysphagia depends on the cause of this condition, such as: If the dysphagia is caused by acid reflux or infection, medicines may be used. They may include antibiotics and heartburn medicines. If the dysphagia is caused by problems with the muscles, swallowing therapy may be used to help you strengthen your swallowing muscles. You may have to do specific exercises to strengthen the muscles or stretch them. If the dysphagia is caused by a blockage or mass, procedures to remove the blockage may be done. You may need surgery and a feeding tube. You may need to make diet changes. Ask your health care provider for specific instructions. Follow these instructions at home: Medicines Take aqnz-uqq-hppeceg and prescription medicines only as told by your health care provider. If you were prescribed an antibiotic medicine, take it as told by your health care provider. Do not stop taking the antibiotic even if you start to feel better. Eating and drinking Follow any diet changes as told by your health care provider. Work with a diet and nutrition counselor (dietitian) to create an eating plan that will help you get the nutrients you need in order to stay healthy. Eat soft foods that are easier to swallow. Cut your food into small pieces and eat slowly. Take small bites. Eat and drink only when you are sitting upright. Do not drink alcohol or caffeine. If you need help quitting, ask your health care provider. General instructions Check your weight every day to make sure you are not losing weight. Do not use any products that contain nicotine or tobacco, such as cigarettes, e-cigarettes, and chewing tobacco. If you need help quitting, ask your health care provider. Keep all follow-up visits as told by your health care provider. This is important. Contact a health care provider if you: Lose weight because you cannot swallow. Cough when you drink liquids. Cough up partially digested food. Get help right away if you: Cannot swallow your saliva. Have shortness of breath, a fever, or both. Have a hoarse voice and also have trouble swallowing. Summary Dysphagia is trouble swallowing. This condition occurs when solids and liquids stick in a person's throat on the way down to the stomach. You may cough or gag while trying to swallow. Dysphagia has many possible causes. Treatment for dysphagia depends on the cause of the condition. Keep all follow-up visits as told by your health care provider. This is important. This information is not intended to replace advice given to you by your health care provider. Make sure you discuss any questions you have with your health care provider. Document Released: 07/01/2001 Document Revised: 11/28/2019 Document Reviewed: 11/28/2019 Elsevier Patient Education 2019 [employer] Additional Information VACCINATE! IT SAVES LIVES! Members of the community who have not yet received the COVID-19 vaccine and would like to receive it can visit one of [facility] vaccine clinics. There are many vaccine clinic locations within the [facility]. For locations and available times, please visit [email or web address] It is important to note that some COVID mobile vaccine clinics are held outdoors and may be canceled in rainy or stormy conditions. To learn more about pediatric vaccinations (ages 5-11), we invite you to visit the [facility] webpage. [email or web address]/ [email or web address]-Frequently-Ask ed-Questions.html To learn more about the COVID-19 vaccine, we invite you to visit the CDC website for a list of frequently asked questions.https://www.cdc.gov/coronav irus/2019-ncov/vaccines/faq.html [facility] Patient Portal Access Instructions: Stay connected with your healthcare team and access your personal medical information anytime with the [facility] Patient Portal. Please follow the directions below to create your [facility] account: 1.Access the email account you provided upon registration to the hospital/physician office.2.Look for an invitation email from [facility].3.Open the email and access the invitation link: Accept Invitation to [facility].4.Fill in the required welch to create your account. To access your account, visit [email or web address]. Click the blue button labeled Access Patient Portal and then log in with the username and password that you created in the steps above. You will be able to view your test results, lab results, a summary of your visits, upcoming appointments and more. There is also a convenient messaging option where you can send secure messages to your provider. In addition, you will have the ability to download any documents or summaries to your computer and/or send the information securely to a physician. Remember that your healthcare information is confidential, so carefully consider who you will allow to register on the [facility] for access to your information. You can also access the [facility] on the [facility] radha. Simply click on Patient Portal and then log into your account. If you would like to receive a full copy of your medical records, please contact the [facility] Medical Records Department by calling [phone], Tuesday through Tuesday between 8 a.m. and 4:30 p.m. HOW TO SAFELY DISPOSE OF PRESCRIPTION MEDICATIONS Please use one of the following methods to safely dispose of your unused medications. 1.Use a drug disposal kit: the drug disposal pouch allows you to safely discard your old and unused drugs. Ask your nurse to give you one when you are discharged.2.Visit a local take-back location: Many local pharmacies and police departments have programs that collect old and unwanted prescription drugs. Call your local pharmacy or go to http://Meddle/3J5Vw2r to find one close to you.3.Make use of household items: Use cat litter or old coffee grounds to dispose medications if other options are not available. Mix your drugs with these household products, seal them in an airtight container and throw it into the garbage. Call [facility]: [phone] to be sure your drugs can be disposed of in this way. Some medicines may require a different approach.4.Never flush your medications down the toilet. IF YOU HAVE BEEN PRESCRIBED AN OPIOID FOR PAIN If you have been prescribed an opioid (such as hydrocodone, oxycodone or morphine), it is critical to understand the possible side effects and risks of opioid pain medications. Even when taken as directed, opioids can have several side effects including: Tolerance, meaning you might need to take more of a medication for the same pain relief. Nausea, vomiting and/or constipation. Sleepiness, dizziness, dry mouth, confusion, depression or itching. Physical dependence, meaning you have withdrawal symptoms when a medication is stopped, can develop within a few days. KNOW YOUR RESPONSIBILITIES It is important to know exactly how much and how often to take the opioid pain medications you are prescribed. Never take opioids in higher amounts or more often than prescribed. Do not combine opioids with alcohol or other drugs that cause drowsiness, such as benzodiazepines, also known as benzos, including diazepam and alprazolam, muscle relaxants or sleep aids. Never sell or share prescription opioids. This is illegal. Store opioids in a secure place and out of reach of others (including children, family, friends and visitors). The last page of this document has been signed and retained as a CHART COPY. Signatures Patient Education Materials Seizure, Adult, [id number]-ms-[id number] Dysphagia Medication Leaflets My discharge plan and instructions have been reviewed and explained to me and I,ROHITMarques SHARLA Marques understand my current condition and have read and understand these discharge instructions. I have received a written copy of the plan/instructions. If I have questions, I am aware that I should contact my doctor. Patient/Case Management Rn Signature: __ Date/Time: Relationship to Patient: Witness Name/Signature: Date/Time: [facility] 01-15-2023 Note Discharge Instructions Thank you for allowing [facility] to assist you with your healthcare needs. The following is important discharge information regarding your hospital visit. Your Care Team DESIRAE ROSARIO MD Your Diagnosis Esophageal obstruction due to food impaction Vomiting Dysphagia Bipolar disorder Autism Seizure What to do next Follow Up Appointments Follow Up [facility] call RN report to When Within 1-2 days Follow Up with DESIRAE ROSARIO When Within 1-2 days Where: [facility] [address] [place] [address] [address]- [facility] (1) The Following Activity and Diet Have Been Ordered for You Transfer of Care Activity - Ordered -- As instructed by therapy, 01/15/23 12:58:00 EDT Transfer of Care Diet - Ordered -- Type of Diet: Regular Diet, 01/15/23 12:58:00 EDT The Following Equipment Has Been Ordered for You No qualifying data available. The Following Treatments Have Been Ordered for You Discharge Labs No qualifying data available. Discharge Radiology No qualifying data available. Other Therapies Transfer of Care OT - Ordered -- Reason for therapy: generalized weakness, 01/15/23 12:58:00 EDT Transfer of Care PT - Ordered -- Reason for therapy: generalized weakness, 01/15/23 12:58:00 EDT Post Acute Orders Transfer of Care Admission Level of Care - Ordered -- Level of Care SNF, 01/15/23 12:58:56 EDT Transfer of Care Code Status - Ordered -- Full Code, Constant Order Transfer of Care Orders Electronically Signed By - Ordered -- 01/15/23 12:58:00 EDT, LEXI BALDERRAMA MD Transfer of Care Prognosis - Ordered -- Fair, Patient Aware: Yes Transfer of Care Rehab Potential - Ordered -- Rehab potential fair, 01/15/23 12:58:56 EDT Someone Will Contact You Regarding These Home Health Referrals No home referrals have been ordered for you. No one will call you. Allergies NKA Medications Please ask your primary doctor or pharmacist before taking any other medication not listed, including over the counter drugs, herbal medications, vitamins and or supplements as they may interact with your home medications. What How Much When Why Instructions Last Dose New fludrocortisone (fludrocortisone 0.1 mg oral tablet) 2 tab(s) by mouth Once a day New midodrine (midodrine 5 mg oral tablet) 2 tab(s) by mouth Two (2) times a day New pantoprazole (Protonix 40 mg oral enteric coated tablet) 1 tab(s) by mouth Once a day Changed LORazepam (LORazepam 1 mg oral tablet) 2 tab(s) by mouth Three (3) times a day Bipolar disorder Autism Duration: 7 Days Printed Prescription Changed divalproex sodium (divalproex sodium 250 mg oral tablet, extended release) 3 tab(s) by mouth Two (2) times a day Duration: 30 Days Pickup at [id number] Unchanged cholecalciferol (Vitamin D3 50 mcg (2000 intl units) oral capsule) 1 cap by mouth Every day Unchanged montelukast (montelukast 10 mg oral tablet) 1 tab(s) by mouth Once a day Pharmacy Information [facility][id number]: [address] [place], [place] [id number] [phone] What How Much When Comments Stop Taking carbidopa-levodopa (carbidopa-levodopa 25 mg-100 mg oral tablet) 1 tab(s) by mouth Three (3) times a day Stop Taking traZODone (traZODone 150 mg oral tablet) 1 tab(s) by mouth Daily at bedtime Please take this list to your next doctor s visit. Bring all medications you take, including over the counter medications, herbals and other supplements with you to your doctor s visit. Patients and families are reminded to discard old lists and to update any records with all medication providers or retail pharmacies. Education Materials Seizure, Adult A seizure is a sudden burst of abnormal electrical activity in the brain. Seizures usually last from 30 seconds to 2 minutes. They can cause many different symptoms. Usually, seizures are not harmful unless they last a long time. What are the causes? Common causes of this condition include: Fever or infection. Conditions that affect the brain, such as: ? A brain abnormality that you were born with. ? A brain or head injury. ? Bleeding in the brain. ? A tumor. ? Stroke. ? Brain disorders such as autism or cerebral palsy. Low blood sugar. Conditions that are passed from parent to child (are inherited). Problems with substances, such as: ? Having a reaction to a drug or a medicine. ? Suddenly stopping the use of a substance (withdrawal). In some cases, the cause may not be known. A person who has repeated seizures over time without a clear cause has a condition called epilepsy. What increases the risk? You are more likely to get this condition if you have: A family history of epilepsy. Had a seizure in the past. A brain disorder. A history of head injury, lack of oxygen at , or strokes. What are the signs or symptoms? There are many types of seizures. The symptoms vary depending on the type of seizure you have. Examples of symptoms during a seizure include: Shaking (convulsions). Stiffness in the body. Passing out (losing consciousness). Head nodding. Staring. Not responding to sound or touch. Loss of bladder control and bowel control. Some people have symptoms right before and right after a seizure happens. Symptoms before a seizure may include: Fear. Worry (anxiety). Feeling like you may vomit (nauseous). Feeling like the room is spinning (vertigo). Feeling like you saw or heard something before (corina mabry). Odd tastes or smells. Changes in how you see. You may see flashing lights or spots. Symptoms after a seizure happens can include: Confusion. Sleepiness. Headache. Weakness on one side of the body. How is this treated? Most seizures will stop on their own in under 5 minutes. In these cases, no treatment is needed. Seizures that last longer than 5 minutes will usually need treatment. Treatment can include: Medicines given through an IV tube. Avoiding things that are known to cause your seizures. These can include medicines that you take for another condition. Medicines to treat epilepsy. Surgery to stop the seizures. This may be needed if medicines do not help. Follow these instructions at home: Medicines Take pnpa-igb-lmqggrp and prescription medicines only as told by your doctor. Do not eat or drink anything that may keep your medicine from working, such as alcohol. Activity Do not do any activities that would be dangerous if you had another seizure, like driving or swimming. Wait until your doctor says it is safe for you to do them. If you live in the [place] ask your local DMV (department of [employer]) when you can drive. Get plenty of rest. Teaching others Teach friends and family what to do when you have a seizure. They should: Lay you on the ground. Protect your head and body. Loosen any tight clothing around your neck. Turn you on your side. Not hold you down. Not put anything into your mouth. Know whether or not you need emergency care. Stay with you until you are better. General instructions Contact your doctor each time you have a seizure. Avoid anything that gives you seizures. Keep a seizure diary. Write down: ? What you think caused each seizure. ? What you remember about each seizure. Keep all follow-up visits as told by your doctor. This is important. Contact a doctor if: You have another seizure. You have seizures more often. There is any change in what happens during your seizures. You keep having seizures with treatment. You have symptoms of being sick or having an infection. Get help right away if: You have a seizure that: ? Lasts longer than 5 minutes. ? Is different than seizures you had before. ? Makes it harder to breathe. ? Happens after you hurt your head. You have any of these symptoms after a seizure: ? Not being able to speak. ? Not being able to use a part of your body. ? Confusion. ? A bad headache. You have two or more seizures in a row. You do not wake up right after a seizure. You get hurt during a seizure. These symptoms may be an emergency. Do not wait to see if the symptoms will go away. Get medical help right away. Call your local emergency services (911 in the [place] Do not drive yourself to the hospital. Summary Seizures usually last from 30 seconds to 2 minutes. Usually, they are not harmful unless they last a long time. Do not eat or drink anything that may keep your medicine from working, such as alcohol. Teach friends and family what to do when you have a seizure. Contact your doctor each time you have a seizure. This information is not intended to replace advice given to you by your health care provider. Make sure you discuss any questions you have with your health care provider. Document Released: 12/20/2008 Document Revised: 09/21/2019 Document Reviewed: 09/21/2019 [employer] Patient Education 2020 [employer] Dysphagia Dysphagia is trouble swallowing. This condition occurs when solids and liquids stick in a person's throat on the way down to the stomach, or when food takes longer to get to the stomach than usual. You may have problems swallowing food, liquids, or both. You may also have pain while trying to swallow. It may take you more time and effort to swallow something. What are the causes? This condition may be caused by: Muscle problems. They may make it difficult for you to move food and liquids through the esophagus, which is the tube that connects your mouth to your stomach. Blockages. You may have ulcers, scar tissue, or inflammation that blocks the normal passage of food and liquids. Causes of these problems include: ? Acid reflux from your stomach into your esophagus (gastroesophageal reflux). ? Infections. ? Radiation treatment for cancer. ? Medicines taken without enough fluids to wash them down into your stomach. Stroke. This can affect the nerves and make it difficult to swallow. Nerve problems. These prevent signals from being sent to the muscles of your esophagus to squeeze (contract) and move what you swallow down to your stomach. Globus pharyngeus. This is a common problem that involves a feeling like something is stuck in your throat or a sense of trouble with swallowing, even though nothing is wrong with the swallowing passages. Certain conditions, such as cerebral palsy or Parkinson's disease. What are the signs or symptoms? Common symptoms of this condition include: A feeling that solids or liquids are stuck in your throat on the way down to the stomach. Pain while swallowing. Coughing or gagging while trying to swallow. Other symptoms include: Food moving back from your stomach to your mouth (regurgitation). Noises coming from your throat. Chest discomfort with swallowing. A feeling of fullness when swallowing. Drooling, especially when the throat is blocked. Heartburn. How is this diagnosed? This condition may be diagnosed by: Barium X-ray. In this test, you will swallow a white liquid that sticks to the inside of your esophagus. X-ray images are then taken. Endoscopy. In this test, a flexible telescope is inserted down your throat to look at your esophagus and your stomach. CT scans and an MRI. How is this treated? Treatment for dysphagia depends on the cause of this condition, such as: If the dysphagia is caused by acid reflux or infection, medicines may be used. They may include antibiotics and heartburn medicines. If the dysphagia is caused by problems with the muscles, swallowing therapy may be used to help you strengthen your swallowing muscles. You may have to do specific exercises to strengthen the muscles or stretch them. If the dysphagia is caused by a blockage or mass, procedures to remove the blockage may be done. You may need surgery and a feeding tube. You may need to make diet changes. Ask your health care provider for specific instructions. Follow these instructions at home: Medicines Take xzsd-kwo-ciencge and prescription medicines only as told by your health care provider. If you were prescribed an antibiotic medicine, take it as told by your health care provider. Do not stop taking the antibiotic even if you start to feel better. Eating and drinking Follow any diet changes as told by your health care provider. Work with a diet and nutrition counselor (dietitian) to create an eating plan that will help you get the nutrients you need in order to stay healthy. Eat soft foods that are easier to swallow. Cut your food into small pieces and eat slowly. Take small bites. Eat and drink only when you are sitting upright. Do not drink alcohol or caffeine. If you need help quitting, ask your health care provider. General instructions Check your weight every day to make sure you are not losing weight. Do not use any products that contain nicotine or tobacco, such as cigarettes, e-cigarettes, and chewing tobacco. If you need help quitting, ask your health care provider. Keep all follow-up visits as told by your health care provider. This is important. Contact a health care provider if you: Lose weight because you cannot swallow. Cough when you drink liquids. Cough up partially digested food. Get help right away if you: Cannot swallow your saliva. Have shortness of breath, a fever, or both. Have a hoarse voice and also have trouble swallowing. Summary Dysphagia is trouble swallowing. This condition occurs when solids and liquids stick in a person's throat on the way down to the stomach. You may cough or gag while trying to swallow. Dysphagia has many possible causes. Treatment for dysphagia depends on the cause of the condition. Keep all follow-up visits as told by your health care provider. This is important. This information is not intended to replace advice given to you by your health care provider. Make sure you discuss any questions you have with your health care provider. Document Released: 07/01/2001 Document Revised: 11/28/2019 Document Reviewed: 11/28/2019 [employer] Patient Education 2020 [employer] Additional Information VACCINATE! IT SAVES LIVES! Members of the community who have not yet received the COVID-19 vaccine and would like to receive it can visit one of [facility] vaccine clinics. There are many vaccine clinic locations within the [facility]. For locations and available times, please visit [email or web address] It is important to note that some COVID mobile vaccine clinics are held outdoors and may be canceled in rainy or stormy conditions. To learn more about pediatric vaccinations (ages 5-11), we invite you to visit the [facility] webpage. [email or web address]/pages/ [email or web address]-[email or web address]-Frequently-[email or web address] ed-Questions.html To learn more about the COVID-19 vaccine, we invite you to visit the CDC website for a list of frequently asked questions.https://www.cdc.gov/coronav irus/2019-ncov/vaccines/faq.html [facility] Patient Portal Access Instructions: Stay connected with your healthcare team and access your personal medical information anytime with the [facility] Patient Portal. Please follow the directions below to create your [facility] account: 1.Access the email account you provided upon registration to the hospital/physician office.2.Look for an invitation email from [facility].3.Open the email and access the invitation link: Accept Invitation to [facility].4.Fill in the required welch to create your account. To access your account, visit [email or web address]. Click the blue button labeled Access Patient Portal and then log in with the username and password that you created in the steps above. You will be able to view your test results, lab results, a summary of your visits, upcoming appointments and more. There is also a convenient messaging option where you can send secure messages to your provider. In addition, you will have the ability to download any documents or summaries to your computer and/or send the information securely to a physician. Remember that your healthcare information is confidential, so carefully consider who you will allow to register on the [facility] Patient Portal for access to your information. You can also access the [facility] Patient Portal on the [facility] radha. Simply click on Patient Portal and then log into your account. If you would like to receive a full copy of your medical records, please contact the [facility] Medical Records Department by calling [phone], Tuesday through Tuesday between 8 a.m. and 4:30 p.m. HOW TO SAFELY DISPOSE OF PRESCRIPTION MEDICATIONS Please use one of the following methods to safely dispose of your unused medications. 1.Use a drug disposal kit: the drug disposal pouch allows you to safely discard your old and unused drugs. Ask your nurse to give you one when you are discharged.2.Visit a local take-back location: Many local pharmacies and police departments have programs that collect old and unwanted prescription drugs. Call your local pharmacy or go to http://bit.ly/8G5Fr3z to find one close to you.3.Make use of household items: Use cat litter or old coffee grounds to dispose medications if other options are not available. Mix your drugs with these household products, seal them in an airtight container and throw it into the garbage. Call [facility]: [phone] to be sure your drugs can be disposed of in this way. Some medicines may require a different approach.4.Never flush your medications down the toilet. IF YOU HAVE BEEN PRESCRIBED AN OPIOID FOR PAIN If you have been prescribed an opioid (such as hydrocodone, oxycodone or morphine), it is critical to understand the possible side effects and risks of opioid pain medications. Even when taken as directed, opioids can have several side effects including: Tolerance, meaning you might need to take more of a medication for the same pain relief. Nausea, vomiting and/or constipation. Sleepiness, dizziness, dry mouth, confusion, depression or itching. Physical dependence, meaning you have withdrawal symptoms when a medication is stopped, can develop within a few days. KNOW YOUR RESPONSIBILITIES It is important to know exactly how much and how often to take the opioid pain medications you are prescribed. Never take opioids in higher amounts or more often than prescribed. Do not combine opioids with alcohol or other drugs that cause drowsiness, such as benzodiazepines, also known as benzos, including diazepam and alprazolam, muscle relaxants or sleep aids. Never sell or share prescription opioids. This is illegal. Store opioids in a secure place and out of reach of others (including children, family, friends and visitors). The last page of this document has been signed and retained as a CHART COPY. Signatures Patient Education Materials Seizure, Adult, [id number] Dysphagia Medication Leaflets My discharge plan and instructions have been reviewed and explained to me and IELFEGO LARISSA R understand my current condition and have read and understand these discharge instructions. I have received a written copy of the plan/instructions. If I have questions, I am aware that I should contact my doctor. Patient/Case Management Rn Signature: __ Date/Time: Relationship to Patient: Witness Name/Signature: Date/Time: [facility] 01-15-2023 Note Discharge Instructions Thank you for allowing [facility] to assist you with your healthcare needs. The following is important discharge information regarding your hospital visit. Your Care Team DESIRAE ROSARIO MD Your Diagnosis Esophageal obstruction due to food impaction Vomiting Dysphagia Bipolar disorder Autism Seizure What to do next Follow Up Appointments Follow Up with [facility] call RN report to : When Within 1-2 days Follow Up with DESIRAE ROSARIO When Within 1-2 days Where: [facility] [address] [place] [id number]- [facility] (1) The Following Activity and Diet Have Been Ordered for You Transfer of Care Activity - Ordered -- As instructed by therapy, 01/15/23 12:58:00 EDT Transfer of Care Diet - Ordered -- Type of Diet: Regular Diet, 01/15/23 12:58:00 EDT The Following Equipment Has Been Ordered for You No qualifying data available. The Following Treatments Have Been Ordered for You Discharge Labs No qualifying data available. Discharge Radiology No qualifying data available. Other Therapies Transfer of Care OT - Ordered -- Reason for therapy: generalized weakness, 01/15/23 12:58:00 EDT Transfer of Care PT - Ordered -- Reason for therapy: generalized weakness, 01/15/23 12:58:00 EDT Post Acute Orders Transfer of Care Admission Level of Care - Ordered -- Level of Care SNF, 01/15/23 12:58:56 EDT Transfer of Care Code Status - Ordered -- Full Code, Constant Order Transfer of Care Orders Electronically Signed By - Ordered -- 01/15/23 12:58:00 EDT, LEXI BALDERRAMA MD Transfer of Care Prognosis - Ordered -- Fair, Patient Aware: Yes Transfer of Care Rehab Potential - Ordered -- Rehab potential fair, 01/15/23 12:58:56 EDT Someone Will Contact You Regarding These Home Health Referrals No home referrals have been ordered for you. No one will call you. Allergies NKA Medications Please ask your primary doctor or pharmacist before taking any other medication not listed, including over the counter drugs, herbal medications, vitamins and or supplements as they may interact with your home medications. What How Much When Why Instructions Last Dose New fludrocortisone (fludrocortisone 0.1 mg oral tablet) 2 tab(s) by mouth Once a day New midodrine (midodrine 5 mg oral tablet) 2 tab(s) by mouth Two (2) times a day New pantoprazole (Protonix 40 mg oral enteric coated tablet) 1 tab(s) by mouth Once a day Changed LORazepam (LORazepam 1 mg oral tablet) 2 tab(s) by mouth Three (3) times a day Bipolar disorder Autism Duration: 7 Days Printed Prescription Changed divalproex sodium (divalproex sodium 250 mg oral tablet, extended release) 3 tab(s) by mouth Two (2) times a day Duration: 30 Days Pickup at [facility] #[facility]46 Unchanged cholecalciferol (Vitamin D3 50 mcg (2000 intl units) oral capsule) 1 cap by mouth Every day Unchanged montelukast (montelukast 10 mg oral tablet) 1 tab(s) by mouth Once a day Pharmacy Information [facility] #30086: [address] [place], [place] [id number] [phone] What How Much When Comments Stop Taking carbidopa-levodopa (carbidopa-levodopa 25 mg-100 mg oral tablet) 1 tab(s) by mouth Three (3) times a day Stop Taking traZODone (traZODone 150 mg oral tablet) 1 tab(s) by mouth Daily at bedtime Please take this list to your next doctor s visit. Bring all medications you take, including over the counter medications, herbals and other supplements with you to your doctor s visit. Patients and families are reminded to discard old lists and to update any records with all medication providers or retail pharmacies. Additional Information VACCINATE! IT SAVES LIVES! Members of the community who have not yet received the COVID-19 vaccine and would like to receive it can visit one of [facility] vaccine clinics. There are many vaccine clinic locations within the [facility]. For locations and available times, please visit [email or web address] It is important to note that some COVID mobile vaccine clinics are held outdoors and may be canceled in rainy or stormy conditions. To learn more about pediatric vaccinations (ages 5-11), we invite you to visit the [facility] webpage. [email or web address] To learn more about the COVID-19 vaccine, we invite you to visit the CDC website for a list of frequently asked questions.https://www.cdc.gov/coronav irus/2019-ncov/vaccines/faq.html [facility] Patient Portal Access Instructions: Stay connected with your healthcare team and access your personal medical information anytime with the [facility] Patient Portal. Please follow the directions below to create your [facility] account: 1.Access the email account you provided upon registration to the hospital/physician office.2.Look for an invitation email from [facility].3.Open the email and access the invitation link: Accept Invitation to [facility].4.Fill in the required welch to create your account. To access your account, visit [email or web address]. Click the blue button labeled Access Patient Portal and then log in with the username and password that you created in the steps above. You will be able to view your test results, lab results, a summary of your visits, upcoming appointments and more. There is also a convenient messaging option where you can send secure messages to your provider. In addition, you will have the ability to download any documents or summaries to your computer and/or send the information securely to a physician. Remember that your healthcare information is confidential, so carefully consider who you will allow to register on the [facility] Patient Portal for access to your information. You can also access the [facility] Patient Portal on the [facility] radha. Simply click on Patient Portal and then log into your account. If you would like to receive a full copy of your medical records, please contact the [facility] Medical Records Department by calling [phone], Tuesday through Tuesday between 8 a.m. and 4:30 p.m. HOW TO SAFELY DISPOSE OF PRESCRIPTION MEDICATIONS Please use one of the following methods to safely dispose of your unused medications. 1.Use a drug disposal kit: the drug disposal pouch allows you to safely discard your old and unused drugs. Ask your nurse to give you one when you are discharged.2.Visit a local take-back location: Many local pharmacies and police departments have programs that collect old and unwanted prescription drugs. Call your local pharmacy or go to [email or web address] to find one close to you.3.Make use of household items: Use cat litter or old coffee grounds to dispose medications if other options are not available. Mix your drugs with these household products, seal them in an airtight container and throw it into the garbage. Call [facility]: [phone] to be sure your drugs can be disposed of in this way. Some medicines may require a different approach.4.Never flush your medications down the toilet. IF YOU HAVE BEEN PRESCRIBED AN OPIOID FOR PAIN If you have been prescribed an opioid (such as hydrocodone, oxycodone or morphine), it is critical to understand the possible side effects and risks of opioid pain medications. Even when taken as directed, opioids can have several side effects including: Tolerance, meaning you might need to take more of a medication for the same pain relief. Nausea, vomiting and/or constipation. Sleepiness, dizziness, dry mouth, confusion, depression or itching. Physical dependence, meaning you have withdrawal symptoms when a medication is stopped, can develop within a few days. KNOW YOUR RESPONSIBILITIES It is important to know exactly how much and how often to take the opioid pain medications you are prescribed. Never take opioids in higher amounts or more often than prescribed. Do not combine opioids with alcohol or other drugs that cause drowsiness, such as benzodiazepines, also known as benzos, including diazepam and alprazolam, muscle relaxants or sleep aids. Never sell or share prescription opioids. This is illegal. Store opioids in a secure place and out of reach of others (including children, family, friends and visitors). The last page of this document has been signed and retained as a CHART COPY. Signatures Patient Education Materials Medication Leaflets My discharge plan and instructions have been reviewed and explained to me and IELFEGO LARISSA R understand my current condition and have read and understand these discharge instructions. I have received a written copy of the plan/instructions. If I have questions, I am aware that I should contact my doctor. Patient/Case Management Rn Signature: __ Date/Time: Relationship to Patient: Witness Name/Signature: Date/Time: [facility] 01-15-2023 Discharge summary Date of Service 01/15/2023 Discharge Diagnosis 1. Esophageal obstruction due to food impaction (K22.2 - ICD-10-CM) 2. Vomiting ([id number] - PNED) 3. Dysphagia (R13.10 - ICD-10-CM) 4. Bipolar disorder (F31.9 - ICD-10-CM) Ordered: LORazepam 1 mg oral tablet; Dose : 2 mg = 2 tab(s), Oral, TID, X 7 day(s), # 42 tab(s), 0 Refill(s), 01/22/23 12:55:00 EDT, Bipolar disorder Autism, 57.1 5. Autism (F84.0 - ICD-10-CM) Ordered: LORazepam 1 mg oral tablet; Dose : 2 mg = 2 tab(s), Oral, TID, X 7 day(s), # 42 tab(s), 0 Refill(s), 01/22/23 12:55:00 EDT, Bipolar disorder Autism, 57.1 6. Seizure (R56.9 - ICD-10-CM) Acidosis, unspecified (E87.20 - ICD-10-CM) Autistic disorder (F84.0 - ICD-10-CM) Unspecified intellectual disabilities (F79 - ICD-10-CM) Anxiety disorder, unspecified (F41.9 - ICD-10-CM) Bipolar disorder, unspecified (F31.9 - ICD-10-CM) Thrombocytopenia, unspecified (D69.6 - ICD-10-CM) Nervousness (R45.0 - ICD-10-CM) Other disorders of electrolyte and fluid balance, not elsewhere classified (E87.8 - ICD-10-CM) Bipolar disorder, currently in remission, most recent episode unspecified (F31.70 - ICD-10-CM) Foreign body in stomach, initial encounter (T18.2XXA - ICD-10-CM) Unspecified convulsions (R56.9 - ICD-10-CM) Epilepsy, unspecified, not intractable, without status epilepticus (G40.909 - ICD-10-CM) Hypotension, unspecified (I95.9 - ICD-10-CM) Food in esophagus causing other injury, initial encounter (T18.128A - ICD-10-CM) Food in esophagus causing other injury, initial encounter (T18.128A - ICD-10-CM) Pneumonitis due to inhalation of food and vomit (J69.0 - ICD-10-CM) Additional Orders: Ordered: Discharge,01/15/23 12:58:00 EDT, Discharged to: Detention Facility Other status: EKG,01/13/23 7:57:00 EDT(Complete) Ordered: Protonix 40 mg oral enteric coated tablet,Dose : 40 mg = 1 tab(s), Oral, qDay, 0 Refill(s) Ordered: Transfer of Care Activity,As instructed by therapy, 01/15/23 12:58:00 EDT Ordered: Transfer of Care Admission Level of Care,Level of Care SNF, 01/15/23 12:58:56 EDT Ordered: Transfer of Care Code Status,Full Code, Constant Order Ordered: Transfer of Care Diet,Type of Diet: Regular Diet, 01/15/23 12:58:00 EDT Ordered: Transfer of Care OT,Reason for therapy: generalized weakness, 01/15/23 12:58:00 EDT Ordered: Transfer of Care Orders Electronically Signed By,01/15/23 12:58:00 EDT, LEXI BALDERRAMA MD Ordered: Transfer of Care PT,Reason for therapy: generalized weakness, 01/15/23 12:58:00 EDT Ordered: Transfer of Care Prognosis,Fair, Patient Aware: Yes Ordered: Transfer of Care Rehab Potential,Rehab potential fair, 01/15/23 12:58:56 EDT Ordered: divalproex sodium 250 mg oral tablet, extended release,Dose : 750 mg = 3 tab(s), Oral, BID, # 180 tab(s), 0 Refill(s), Pharmacy: [facility] #[id number], 170.2, cm, 01/05/23 14:35:00 EDT, Height Ordered: fludrocortisone 0.1 mg oral tablet,Dose : 0.2 mg = 2 tab(s), Oral, qDay, 0 Refill(s) Ordered: midodrine 5 mg oral tablet,Dose : 10 mg = 2 tab(s), Oral, BID, 0 Refill(s) End of Orders Hospital Course 47-year-old female with a past medical history of bipolar disorder, autism spectrum disorder, MRDD who presented to [facility] on 01/04/2023 with a 1 day history of decreased oral intake. Also noted to have productive cough as well as spitting up food. Noted leukocytosis on admission with WBC of 17.6, urinalysis not concerning for infection. Chest x-ray demonstrated bronchial wall thickening suggestive of acute on chronic bronchitis. CT thorax demonstrated irregular appearance of the lower cervical/upper thoracic esophagus. GI was consulted and patient underwent EGD on 01/05/2023, ENT was consulted to assist with the procedure and a large meat bolus was removed. Started on PPI. Speech therapy was consulted who recommended modified barium swallow, patient was noncompliant with barium swallow. Speech therapy reevaluated the patient and she was placed on a pur ed diet with thin liquids. Patient did have episode of hypoxia with tachypnea, treated with IV antibiotics for aspiration pneumonia. Rapid response was called on 01/10/2023 with concerns for seizure activity, patient was visualized to having full body seizure. Patient was on Ativan and Depakote for psychiatric history, no history of seizures. Had not received these medications in several days due to being NPO. Was treated with IV Ativan. Was postictal. Neurology was consulted. Depakote was increased to 750 mg twice daily. Neurology recommended outpatient follow-up. On 01/13/2023 patient was noted to have bradycardia associated with hypotension. EKG demonstrated sinus bradycardia. Cardiology consulted, echocardiogram was done which demonstrated An EF of 55%. No other abnormalities. Cardiology did not recommend any further interventions. Heart rate improved, ranging from low 60s to mid 70s. Blood pressure stable in the high 80s to low 90s. To continue on midodrine and Florinef. Medically optimized for discharge, to be discharged to [facility]. Discussed with mother over the phone. Discussed with Dr. Balderrama. Allergies NKA Consults Consult to Physician - Ordered -- 01/05/23 1:52:00 EDT, JOSE FLEMING MD, Routine, MRDD patient regurgitating all solids and liquids x1day. Consult to Physician - Ordered -- 01/10/23 10:05:00 EDT, SAJI REDDING MD, Routine, new onset seizure Consult to Physician - Ordered -- 01/13/23 8:37:00 EDT, TYLER TORRES MD, Routine, symptomatic bradycardia Physical Exam Vitals and Measurements T: 36.9 C (Oral) TMIN: 36.8 C (Oral) TMAX: 37.5 C (Oral) HR: 63 RR: 22 BP: 88/45 SpO2: 94% Weight Dosing Weight: 57.1 kg (01/05/23) Dosing Weight: 57.1 kg (01/04/23) Physical Exam General: Alert, will answer yes/no questions Skin: No rash. Warm, Dry, Intact HEENT: Head is normocephalic and atraumatic. No lesions. Pupils equal in size. Extraocular movements within normal limits. Nose: No septal deviation. Mouth: Oropharynx mucosa is without lesion. Neck: Supple. No lymphadenopathy, thyromegaly noted. Lungs: Bilaterally clear/diminished breath sounds with no crepitation or wheeze. Unlabored Cardiovascular: Heart is regular rhythm, S1S2, No extra-audible heart tones Abdomen: Abdomen is soft, nontender. Bowel sounds positive all four quadrants. Extremities: No clubbing, cyanosis or edema. Peripheral pulses palpable. No calf tenderness. Adequate peripheral circulation. Neurological: Following simple commands, moving all extremities. Code Status Code Status - Ordered -- 01/05/23 1:43:00 EDT, Full Code, Constant Order Admission Date 01/05/2023 Discharge Date 01/15/2023 Patient Instructions You will be discharged to assisted facility. Continue on your current medications. Return Emergency Department for any new or worsening symptoms. Medications New Prescription fludrocortisone (fludrocortisone 0.1 mg oral tablet)2 tab(s) by mouth once a day. midodrine (midodrine 5 mg oral tablet)2 tab(s) by mouth two (2) times a day. pantoprazole (Protonix 40 mg oral enteric coated tablet)1 tab(s) by mouth once a day. Changed LORazepam (LORazepam 1 mg oral tablet)2 tab(s) by mouth three (3) times a day for 7 Days. Refills: 0. divalproex sodium (divalproex sodium 250 mg oral tablet, extended release)3 tab(s) by mouth two (2) times a day for 30 Days. Refills: 0. Unchanged cholecalciferol (Vitamin D3 50 mcg (2000 intl units) oral capsule)1 cap by mouth every day. montelukast (montelukast 10 mg oral tablet)1 tab(s) by mouth once a day. Discontinued carbidopa-levodopa (carbidopa-levodopa 25 mg-100 mg oral tablet)1 tab(s) by mouth three (3) times a day. traZODone (traZODone 150 mg oral tablet)1 tab(s) by mouth daily at bedtime. Follow Up Appointments Transfer of Care OT - Ordered -- Reason for therapy: generalized weakness, 01/15/23 12:58:00 EDT Transfer of Care PT - Ordered -- Reason for therapy: generalized weakness, 01/15/23 12:58:00 EDT Follow Up Labs/Studies Discharge Labs No Follow-up Labs Discharge Studies No Follow-up Studies Discharge Diet Transfer of Care Diet - Ordered -- Type of Diet: Regular Diet, 01/15/23 12:58:00 EDT Discharge Activity Transfer of Care Activity - Ordered -- As instructed by therapy, 01/15/23 12:58:00 EDT Condition on Discharge Stable Discharge Disposition Home Information Provided To Patient, mother over the phone. Time Spent 34 minutes spent on discharge with greater than 50% that time spent on direct patient care and care coordination. Digitally Signed by LUCI SALCEDO on 01/15/2023 01:03 PM [facility] 01-15-2023 Cardiology Progress note Date of Service 01/15/2023 Chief Complaint Bradycardia Subjective Reviewed echocardiogram. EF 55%. Normal diastolic function. No structural abnormality. Patient continues to be in sinus bradycardia during sleep. Heart rate better when patient is awake. Blood pressure still running on the lower side in the 80s systolic. Patient denies any lightheadedness or dizziness or chest pain or shortness of breath. Patient reports walking to the restroom without any problem. Continues to have poor oral intake according to nursing staff. Calorie count in process. Objective Vitals and Measurements T: 36.9 C (Oral) TMIN: 36.8 C (Oral) TMAX: 37.5 C (Oral) HR: 63 RR: 22 BP: 88/45 SpO2: 94% Intake and Output 7AM Yesterday to 7AM Today Intake and Output (Last 24 hours) Intake Administration Information 800.00 Oral Intake 150.00 Output Urine Voided 800.00 Urinary Catheter Output: 1200.00 Urine Count 1.00 Diaper Count 1.00 Total Summary Total Intake 950.00 Total Output 2000.00 Fluid Balance -1050.00 Physical Exam General: Alert awake oriented 3 Head: Normocephalic atraumatic Eyes: Pupils equal reacting to light and accommodation Neck: Supple, trachea midline Chest: Clear to auscultation, no crackles, no wheezes Heart: S1, S2 normal, rate rhythm regular, no significant murmurs. Abdomen: Soft, bowel sounds present, nontender, no distention Extremities: Nontender, no edema Weight Dosing Weight: 57.1 kg (01/05/23) Dosing Weight: 57.1 kg (01/04/23) Medications Medications (11) Active Scheduled: (5) fludrocortisone 0.1 mg Tablet 0.2 mg 2 tab(s), Oral, qDay LORAZEPam 1 mg Tablet 2 mg 2 tab(s), Oral, TID midodrine 5 mg tablet 10 mg 2 tab(s), Oral, BID pantoprazole 40 mg EC tablet 40 mg 1 tab(s), Oral, BIDAC valproate sodium 750 mg 7.5 mL, IV Piggyback, BID Continuous: (1) Lactated Ringers 1,000 mL 1,000 mL, Intravenous, 100 mL/hr PRN: (5) acetaminophen 325 mg Tablet 650 mg 2 tab(s), Oral, q6hWA melatonin 3 mg tablet 3 mg 1 tab(s), Oral, qHS melatonin 3 mg tablet 3 mg 1 tab(s), Oral, qHS ondansetron 4 mg DIS tablet 4 mg 1 tab(s), Oral, q6h ondansetron 4 mg tablet 4 mg 1 tab(s), Oral, q6h Lab Results 01/14 05:07 WBC: 7.2 Hgb: 12.6 Hct: 37.3 Platelet: 188 Neutrophil %: 48.9 L Glucose Level: 81 Sodium Level: 145 Potassium Level: 3.9 BUN: 12.0 Creatinine Lvl (s): 0.57 EKG EKG - Completed -- 01/13/23 7:57:00 EDT Assessment/Plan 1. Esophageal obstruction due to food impaction 2. Vomiting 3. Dysphagia 4. Bipolar disorder 5. Autism 6. Seizure Impression: 1. Asymptomatic sinus bradycardia 2. Hypotension 3. Failure to thrive 4. Malnutrition [low albumin] Plan: At this time patient is main problem appears to be poor oral intake. Encourage patient to increase her oral intake of both calories as well as protein as well as fluid. Maintain electrolyte balance as well. Continue midodrine for maintaining systolic blood pressure above 90. No indication for device therapy at this time. Digitally Signed by SIXTO SANTANA MD on 01/15/2023 10:40 AM [facility] 01-15-2023 Nurse Progress note pt ready for MRI test, dressed in gown nosnap, med given Ativan and pt voided Digitally Signed by TENA Hurtado on 01/15/2023 07:33 AM [facility] 01-14-2023 Note Date of Service 01/14/2023 Chief Complaint weakness Subjective 47-year-old female with a past medical history of bipolar disorder, autism spectrum disorder, MRDD who presented to [facility] on 01/04/2023 with a 1 day history of decreased oral intake. Also noted to have productive cough as well as spitting up food. Noted leukocytosis on admission with WBC of 17.6, urinalysis not concerning for infection. Chest x-ray demonstrated bronchial wall thickening suggestive of acute on chronic bronchitis. CT thorax demonstrated irregular appearance of the lower cervical/upper thoracic esophagus. GI was consulted and patient underwent EGD on 01/05/2023, ENT was consulted to assist with the procedure and a large meat bolus was removed. Started on PPI. Speech therapy was consulted who recommended modified barium swallow, patient was noncompliant with barium swallow. Speech therapy reevaluated the patient and she was placed on a pur ed diet with thin liquids. Patient did have episode of hypoxia with tachypnea, treated with IV antibiotics for aspiration pneumonia. Rapid response was called on 01/10/2023 with concerns for seizure activity, patient was visualized to having full body seizure. Patient was on Ativan and Depakote for psychiatric history, no history of seizures. Had not received these medications in several days due to being NPO. Was treated with IV Ativan. Was postictal. Neurology was consulted. Depakote was increased to 750 mg twice daily. Neurology recommended outpatient follow-up. On 01/13/2023 patient was noted to have bradycardia associated with hypotension. EKG demonstrated sinus bradycardia. Cardiology consulted, echocardiogram pending. Has been asymptomatic with hypotension, systolic blood pressure running in the mid 80s. On exam, patient is laying in bed. Noted to be alert, conversational. Asymptomatic with hypotension. No chest pain or shortness of breath. Objective Vitals and Measurements T: 36.4 C (Oral) TMIN: 36.4 C (Oral) TMAX: 37.3 C (Oral) HR: 52(Monitored) RR: 20 BP: 85/41 SpO2: 98% Intake and Output 7AM Yesterday to 7AM Today Intake and Output (Last 24 hours) Intake Oral Intake 240.00 Supplement Intake 120.00 Output Urinary Catheter Output: 1400.00 Diaper Count 2.00 Total Summary Total Intake 360.00 Total Output 1400.00 Fluid Balance -1040.00 Physical Exam Physical Exam General: Alert, conversational. Answers some questions. Skin: No rash. Warm, Dry, Intact HEENT: Head is normocephalic and atraumatic. No lesions. Pupils equal in size. Extraocular movements within normal limits. Nose: No septal deviation. Mouth: Oropharynx mucosa is without lesion. Neck: Supple. No lymphadenopathy, thyromegaly noted. Lungs: Bilaterally clear/diminished breath sounds with no crepitation or wheeze. Unlabored Cardiovascular: Heart is regular rhythm, S1S2, No extra-audible heart tones Abdomen: Abdomen is soft, nontender. Bowel sounds positive all four quadrants. Extremities: No clubbing, cyanosis or edema. Peripheral pulses palpable. No calf tenderness. Adequate peripheral circulation. Neurological: Following simple commands, moving all extremities. Weight Dosing Weight: 57.1 kg (01/05/23) Dosing Weight: 57.1 kg (01/04/23) Medications Medications (10) Active Scheduled: (4) fludrocortisone 0.1 mg Tablet 0.1 mg 1 tab(s), Oral, qDay LORAZEPam 1 mg Tablet 2 mg 2 tab(s), Oral, TID pantoprazole 40 mg EC tablet 40 mg 1 tab(s), Oral, BIDAC valproate sodium 750 mg 7.5 mL, IV Piggyback, BID Continuous: (1) Lactated Ringers 1,000 mL 1,000 mL, Intravenous, 100 mL/hr PRN: (5) acetaminophen 325 mg Tablet 650 mg 2 tab(s), Oral, q6hWA melatonin 3 mg tablet 3 mg 1 tab(s), Oral, qHS melatonin 3 mg tablet 3 mg 1 tab(s), Oral, qHS ondansetron 4 mg DIS tablet 4 mg 1 tab(s), Oral, q6h ondansetron 4 mg tablet 4 mg 1 tab(s), Oral, q6h Lab Results 01/14 05:07 WBC: 7.2 Hgb: 12.6 Hct: 37.3 Platelet: 188 Neutrophil %: 48.9 L Glucose Level: 81 Sodium Level: 145 Potassium Level: 3.9 BUN: 12.0 Creatinine Lvl (s): 0.57 01/13 07:03 WBC: 5.8 Hgb: 12.7 Hct: 37.7 Platelet: 182 Neutrophil %: 37.5 L Glucose Level: 83 Sodium Level: 143 Potassium Level: 4.3 BUN: 11.0 Creatinine Lvl (s): 0.62 EKG No qualifying data available. Assessment/Plan 1. Esophageal impaction 2. Dysphagia 3. Aspiration pneumonia 4. Seizure-like activity 5. Symptomatic bradycardia 6. MRDD Presented with decreased appetite and coughing up food for 1 day, found to have esophageal impaction on EGD and a large meat bolus was removed. Continues on PPI. Barium swallow was recommended by speech therapy, patient was noncompliant during the procedure. Has been advanced to pur e diet with thin liquids. Concern for aspiration pneumonia secondary to dysphagia. Completed antibiotics. Seizure-like activity without history of seizures. Is maintained on Ativan and Depakote which she was on at home for psychiatric history. Neurology evaluated the patient. Recommending CT head, patient was noncompliant with this previously. To be done if patient cooperates. Patient uncooperative with EEG as she was pulling off EEG probes. This has been deferred. Ammonia level 21. Bradycardia, heart rate remains in the 50s. Continues to have soft blood pressures in the high 70s to mid 80s. Asymptomatic. Continue maintenance IV fluids. Continue Florinef. Evaluated by cardiology recommended echocardiogram. Hypertension associated with bradycardia, cardiology evaluated the patient and recommended echocardiogram. Currently pending. History of MRDD with autism and intermittent psychosis. Continue on valproic acid and scheduled Ativan. CODE STATUS: Full code Discussed with Dr. Balderrama. Attempted to call mother over the phone, no answer. Voice message was left. Time Spent Total time spent reviewing labs, diagnostics, evaluating the patient, and medical decision makin minutes Digitally Signed by LUCI SALCEDO on 01/14/2023 11:13 AM [facility] 01-14-2023 Note Date of Service 01/14/2023 Chief Complaint weakness Subjective 47-year-old female with a past medical history of bipolar disorder, autism spectrum disorder, MRDD who presented to [facility] on 01/04/2023 with a 1 day history of decreased oral intake. Also noted to have productive cough as well as spitting up food. Noted leukocytosis on admission with WBC of 17.6, urinalysis not concerning for infection. Chest x-ray demonstrated bronchial wall thickening suggestive of acute on chronic bronchitis. CT thorax demonstrated irregular appearance of the lower cervical/upper thoracic esophagus. GI was consulted and patient underwent EGD on 01/05/2023, ENT was consulted to assist with the procedure and a large meat bolus was removed. Started on PPI. Speech therapy was consulted who recommended modified barium swallow, patient was noncompliant with barium swallow. Speech therapy reevaluated the patient and she was placed on a pur ed diet with thin liquids. Patient did have episode of hypoxia with tachypnea, treated with IV antibiotics for aspiration pneumonia. Rapid response was called on 01/10/2023 with concerns for seizure activity, patient was visualized to having full body seizure. Patient was on Ativan and Depakote for psychiatric history, no history of seizures. Had not received these medications in several days due to being NPO. Was treated with IV Ativan. Was postictal. Neurology was consulted. Depakote was increased to 750 mg twice daily. Neurology recommended outpatient follow-up. On 01/13/2023 patient was noted to have bradycardia associated with hypotension. EKG demonstrated sinus bradycardia. Cardiology consulted, echocardiogram pending. Has been asymptomatic with hypotension, systolic blood pressure running in the mid 80s. On exam, patient is laying in bed. Noted to be alert, conversational. Asymptomatic with hypotension. No chest pain or shortness of breath. Objective Vitals and Measurements T: 36.4 C (Oral) TMIN: 36.4 C (Oral) TMAX: 37.3 C (Oral) HR: 52(Monitored) RR: 20 BP: 85/41 SpO2: 98% Intake and Output 7AM Yesterday to 7AM Today Intake and Output (Last 24 hours) Intake Oral Intake 240.00 Supplement Intake 120.00 Output Urinary Catheter Output: 1400.00 Diaper Count 2.00 Total Summary Total Intake 360.00 Total Output 1400.00 Fluid Balance -1040.00 Physical Exam Physical Exam General: Alert, conversational. Answers some questions. Skin: No rash. Warm, Dry, Intact HEENT: Head is normocephalic and atraumatic. No lesions. Pupils equal in size. Extraocular movements within normal limits. Nose: No septal deviation. Mouth: Oropharynx mucosa is without lesion. Neck: Supple. No lymphadenopathy, thyromegaly noted. Lungs: Bilaterally clear/diminished breath sounds with no crepitation or wheeze. Unlabored Cardiovascular: Heart is regular rhythm, S1S2, No extra-audible heart tones Abdomen: Abdomen is soft, nontender. Bowel sounds positive all four quadrants. Extremities: No clubbing, cyanosis or edema. Peripheral pulses palpable. No calf tenderness. Adequate peripheral circulation. Neurological: Following simple commands, moving all extremities. Weight Dosing Weight: 57.1 kg (01/05/23) Dosing Weight: 57.1 kg (01/04/23) Medications Medications (10) Active Scheduled: (4) fludrocortisone 0.1 mg Tablet 0.1 mg 1 tab(s), Oral, qDay LORAZEPam 1 mg Tablet 2 mg 2 tab(s), Oral, TID pantoprazole 40 mg EC tablet 40 mg 1 tab(s), Oral, BIDAC valproate sodium 750 mg 7.5 mL, IV Piggyback, BID Continuous: (1) Lactated Ringers 1,000 mL 1,000 mL, Intravenous, 100 mL/hr PRN: (5) acetaminophen 325 mg Tablet 650 mg 2 tab(s), Oral, q6hWA melatonin 3 mg tablet 3 mg 1 tab(s), Oral, qHS melatonin 3 mg tablet 3 mg 1 tab(s), Oral, qHS ondansetron 4 mg DIS tablet 4 mg 1 tab(s), Oral, q6h ondansetron 4 mg tablet 4 mg 1 tab(s), Oral, q6h Lab Results 01/14 05:07 WBC: 7.2 Hgb: 12.6 Hct: 37.3 Platelet: 188 Neutrophil %: 48.9 L Glucose Level: 81 Sodium Level: 145 Potassium Level: 3.9 BUN: 12.0 Creatinine Lvl (s): 0.57 01/13 07:03 WBC: 5.8 Hgb: 12.7 Hct: 37.7 Platelet: 182 Neutrophil %: 37.5 L Glucose Level: 83 Sodium Level: 143 Potassium Level: 4.3 BUN: 11.0 Creatinine Lvl (s): 0.62 EKG No qualifying data available. Assessment/Plan 1. Esophageal impaction 2. Dysphagia 3. Aspiration pneumonia 4. Seizure-like activity 5. Symptomatic bradycardia 6. MRDD Presented with decreased appetite and coughing up food for 1 day, found to have esophageal impaction on EGD and a large meat bolus was removed. Continues on PPI. Barium swallow was recommended by speech therapy, patient was noncompliant during the procedure. Has been advanced to pur e diet with thin liquids. Concern for aspiration pneumonia secondary to dysphagia. Completed antibiotics. Seizure-like activity without history of seizures. Is maintained on Ativan and Depakote which she was on at home for psychiatric history. Neurology evaluated the patient. Recommending CT head, patient was noncompliant with this previously. To be done if patient cooperates. Patient uncooperative with EEG as she was pulling off EEG probes. This has been deferred. Ammonia level 21. Bradycardia, heart rate remains in the 50s. Continues to have soft blood pressures in the high 70s to mid 80s. Asymptomatic. Continue maintenance IV fluids. Continue Florinef. Evaluated by cardiology recommended echocardiogram. Hypertension associated with bradycardia, cardiology evaluated the patient and recommended echocardiogram. Currently pending. History of MRDD with autism and intermittent psychosis. Continue on valproic acid and scheduled Ativan. CODE STATUS: Full code Discussed with Dr. Balderrama. Attempted to call mother over the phone, no answer. Voice message was left. Time Spent Total time spent reviewing labs, diagnostics, evaluating the patient, and medical decision makin minutes Digitally Signed by LUCI SALCEDO on 01/14/2023 11:13 AM [facility] 01-14-2023 Note No pressure injuries noted. Digitally Signed by Anali Harley RN, Skin Team on 01/14/2023 08:41 AM [facility] 01-14-2023 Note Not pressure injuries noted. Digitally Signed by Anali Harley RN, Skin Team on 01/14/2023 08:28 AM [facility] 01-13-2023 Cardiology Consult note Date of Service 01/13/2023 Reason for Consultation Bradycardia Referring Physician Angela Review of Systems Could not be obtained Physical Exam Vitals and Measurements T: 36.5 C (Oral) T: 36.5 C (Oral) TMIN: 36.5 C (Oral) TMAX: 37.2 C (Oral) HR: 43(Monitored) RR: 16 RR: 18 BP: 84/48 SpO2: 95% SpO2: 95% Weight Dosing Weight: 57.1 kg (01/05/23) Dosing Weight: 57.1 kg (01/04/23) General Appearance: Comfortable, not in acute distress Cardiac: S1, S2, no murmurs, regular rhythm, normal rate, no lower extremity edema, no crackles, no JVP distention, warm extremities. Lungs: No wheezes, normal chest expansion. Abdomen: No tenderness, no distention, normal bowel sounds. Musculoskeletal: No signs of acute synovitis. Neurological: Alert and oriented x3, no focal neurological deficits grossly. Psychiatric: Appropriate, normal mood. Lab Results 01/13 07:03 WBC: 5.8 Hgb: 12.7 Hct: 37.7 Platelet: 182 Neutrophil %: 37.5 L Glucose Level: 83 Sodium Level: 143 Potassium Level: 4.3 BUN: 11.0 Creatinine Lvl (s): 0.62 01/12 07:04 WBC: 6.3 Hgb: 12.6 Hct: 37.8 Platelet: 210 Neutrophil %: 35.7 L Glucose Level: 91 Sodium Level: 144 Potassium Level: 3.7 BUN: 13.0 Creatinine Lvl (s): 0.56 Assessment/Plan Orders: Echocardiogram Adult Sinus bradycardia Diffuse precordial TWI Hypotension Esophageal Food impaction, with ulceration and stricture, s/p EGD intervention 01/05/2023 Suspected seizures Learning disability, autism spectrum disorder, thrombocytopenia, bipolar disorder We will arrest is a 47-year-old woman with MRDD, no previous cardiac history, is admitted to the hospital on 01/04/2023 with esophageal food impaction, underwent EGD with disimpaction 01/05/2023, has been recovering well in terms of oral intake, is also treated for aspiration pneumonia. Cardiology is consulted for sinus bradycardia and relative hypotension. Seizure activity suspected and neurology was involved, patient could not tolerate EEG. History taking is limited by patient's mental status, however she denies chest discomfort, shortness of breath, palpitation, lightheadedness or dizziness. ECG and telemetry reviewed, patient heart rate goes as low as 37 bpm, blood pressure as low as 80s systolic. No previous TTE. ECG at baseline shows NSR with nonspecific ST-T changes and T wave flattening. When she is bradycardic her T wave inversions are more pronounced. Recommendations: We will follow-up on TTE Asymptomatic sinus bradycardia nonconcerning for cardiac etiology at this point, well-tolerated by the patient, likely explanation is increased vagal tone from esophageal manipulation and dilation, this is usually transient and self resolving Discussed with Dr. Telly Carranza MD Senior Security Engineer [employer] or Pager [phone] Problem List/Past Medical History Ongoing Autism Bipolar disorder H/O scoliosis History of psychosis Mental deficiency Historical History of MRSA infection Procedure/Surgical History None Medications Inpatient acetaminophen, 650 mg= 2 tab(s), Oral, q6hWA, PRN Depacon fludrocortisone, 0.1 mg= 1 tab(s), Oral, qDay Lactated Ringers Infusion 1,000 mL, 1000 mL, Intravenous LORazepam, 2 mg= 2 tab(s), Oral, TID melatonin, 3 mg= 1 tab(s), Oral, qHS, PRN melatonin, 3 mg= 1 tab(s), Oral, qHS, PRN ondansetron, 4 mg= 1 tab(s), Oral, q6h, PRN Protonix, 40 mg= 1 tab(s), Oral, BIDAC Zofran ODT, 4 mg= 1 tab(s), Oral, q6h, PRN Home divalproex sodium 500 mg oral tablet, extended release, 500 mg= 1 tab(s), Oral, BID LORazepam 1 mg oral tablet, 2 mg= 2 tab(s), Oral, TID montelukast 10 mg oral tablet, 10 mg= 1 tab(s), Oral, qDay traZODone 150 mg oral tablet, 150 mg= 1 tab(s), Oral, qHS Vitamin D3 50 mcg (2000 intl units) oral capsule, 50 mcg= 1 cap(s), Oral, Daily Allergies NKA Social History Smoking Status - 03/24/2018 Never smoker Alcohol - Denies Alcohol Use, 09/15/2017 Use: Never., 08/07/2019 Substance Abuse - Denies Substance Abuse, 09/15/2017 Use: Never., 07/15/2021 Tobacco - Denies Tobacco Use, 07/02/2018 Nicotine Use: Never (less than 100 in lifetime)., 08/07/2019 Immunizations SARS-CoV-2 mRNA (tozinameran) vaccine: 0.3 unknown unit (07/13/21) SARS-CoV-2 mRNA (tozinameran) vaccine: 0.3 unknown unit (08/22/20) SARS-CoV-2 mRNA (tozinameran) vaccine: 0.3 unknown unit (08/01/20) tetanus/diphth/pertuss (Tdap) adult/adol: 0.5 mL (07/03/22) Digitally Signed by BRYAN CARRANZA MD on 01/13/2023 03:27 PM [facility] 01-13-2023 Note Date of Service 01/13/2023 Chief Complaint Hypotension Subjective 47-year-old female with a past medical history of bipolar disorder, autism spectrum disorder, MRDD who presented to [facility] on 01/04/2023 with a 1 day history of decreased oral intake. Also noted to have productive cough as well as spitting up food. Noted leukocytosis on admission with WBC of 17.6, urinalysis not concerning for infection. Chest x-ray demonstrated bronchial wall thickening suggestive of acute on chronic bronchitis. CT thorax demonstrated irregular appearance of the lower cervical/upper thoracic esophagus. GI was consulted and patient underwent EGD on 01/05/2023, ENT was consulted to assist with the procedure and a large meat bolus was removed. Started on PPI. Speech therapy was consulted who recommended modified barium swallow, patient was noncompliant with barium swallow. Speech therapy reevaluated the patient and she was placed on a pur ed diet with thin liquids. Patient did have episode of hypoxia with tachypnea, treated with IV antibiotics for aspiration pneumonia. Rapid response was called on 01/10/2023 with concerns for seizure activity, patient was visualized to having full body seizure. Patient was on Ativan and Depakote for psychiatric history, no history of seizures. Had not received these medications in several days due to being NPO. Was treated with IV Ativan. Was postictal. Neurology was consulted. Depakote was increased to 750 mg twice daily. Neurology recommended outpatient follow-up. Today, patient has been hypotensive and bradycardic. EKG was done, concern for sinus bradycardia. On exam she is asymptomatic, alert, conversational. No complaints of dizziness or lightheadedness. Cardiology has been consulted. Objective Vitals and Measurements T: 36.5 C (Oral) TMIN: 36.5 C (Oral) TMAX: 37.2 C (Oral) HR: 55(Monitored) RR: 18 BP: 82/38 SpO2: 97% Intake and Output 7AM Yesterday to 7AM Today Intake and Output (Last 24 hours) Intake Oral Intake 300.00 Supplement Intake 237.00 Output Urinary Catheter Output: 325.00 Urine Count 1.00 Diaper Count 5.00 Total Summary Total Intake 537.00 Total Output 325.00 Fluid Balance 212.00 Physical Exam Physical Exam General: Alert, somewhat conversational. Skin: No rash. Warm, Dry, Intact HEENT: Head is normocephalic and atraumatic. No lesions. Pupils equal in size. Extraocular movements within normal limits. Nose: No septal deviation. Mouth: Oropharynx mucosa is without lesion. Neck: Supple. No lymphadenopathy, thyromegaly noted. Lungs: Bilaterally clear/diminished breath sounds with no crepitation or wheeze. Unlabored Cardiovascular: Heart is regular rhythm, S1S2, No extra-audible heart tones Abdomen: Abdomen is soft, nontender. Bowel sounds positive all four quadrants. Extremities: No clubbing, cyanosis or edema. Peripheral pulses palpable. No calf tenderness. Adequate peripheral circulation. Neurological: Following simple commands, moving all extremities. Weight Dosing Weight: 57.1 kg (01/05/23) Dosing Weight: 57.1 kg (01/04/23) Medications Medications (9) Active Scheduled: (4) fludrocortisone 0.1 mg Tablet 0.1 mg 1 tab(s), Oral, qDay LORAZEPam 1 mg Tablet 2 mg 2 tab(s), Oral, TID pantoprazole 40 mg EC tablet 40 mg 1 tab(s), Oral, BIDAC valproate sodium 750 mg 7.5 mL, IV Piggyback, BID Continuous: (0) PRN: (5) acetaminophen 325 mg Tablet 650 mg 2 tab(s), Oral, q6hWA melatonin 3 mg tablet 3 mg 1 tab(s), Oral, qHS melatonin 3 mg tablet 3 mg 1 tab(s), Oral, qHS ondansetron 4 mg DIS tablet 4 mg 1 tab(s), Oral, q6h ondansetron 4 mg tablet 4 mg 1 tab(s), Oral, q6h Lab Results 01/13 07:03 WBC: 5.8 Hgb: 12.7 Hct: 37.7 Platelet: 182 Neutrophil %: 37.5 L Glucose Level: 83 Sodium Level: 143 Potassium Level: 4.3 BUN: 11.0 Creatinine Lvl (s): 0.62 01/12 07:04 WBC: 6.3 Hgb: 12.6 Hct: 37.8 Platelet: 210 Neutrophil %: 35.7 L Glucose Level: 91 Sodium Level: 144 Potassium Level: 3.7 BUN: 13.0 Creatinine Lvl (s): 0.56 EKG Electrocardiogram (EKG) - InProcess -- 01/13/23 7:57:00 EDT Assessment/Plan 1. Esophageal impaction 2. Dysphagia 3. Aspiration pneumonia 4. Seizure-like activity 5. Symptomatic bradycardia 6. MRDD Presented with decreased appetite and coughing up food for 1 day, found to have esophageal impaction on EGD and a large meat bolus was removed. Continues on PPI. Barium swallow was recommended by speech therapy, patient was noncompliant during the procedure. Has been advanced to pur e diet with thin liquids. Concern for aspiration pneumonia secondary to dysphagia. Completed antibiotics. Seizure-like activity without history of seizures. Is maintained on Ativan and Depakote which she was on at home for psychiatric history. Neurology evaluated the patient. Recommending CT head, patient was noncompliant with this previously. To be done if patient cooperates. Patient uncooperative with EEG as she was pulling off EEG probes. This has been deferred. Ammonia level 21. Symptomatic bradycardia, patient received multiple IV fluid boluses overnight for hypotension. Blood pressure remains in the mid to low 80s, she is asymptomatic. Troponin negative. EKG demonstrated sinus bradycardia with heart rate in the 40s. Personally reviewed. Sinus bradycardia versus junctional rhythm. Cardiology consulted, discussed with Dr. Carranza, cardiac fellow. He agreed to evaluate the patient. Appreciate the recommendations. Fludrocortisone started, defer midodrine due to bradycardia. History of MRDD with autism and intermittent psychosis. Continue on valproic acid and scheduled Ativan. CODE STATUS: Full code Discussed with Dr. Balderrama. Time Spent Total time spent reviewing labs, diagnostics, evaluating the patient, and medical decision makin minutes Digitally Signed by LUCI SALCEDO on 01/13/2023 12:16 PM [facility] 01-13-2023 Note Date of Service 01/13/2023 Chief Complaint Hypotension Subjective 47-year-old female with a past medical history of bipolar disorder, autism spectrum disorder, MRDD who presented to [facility] on 01/04/2023 with a 1 day history of decreased oral intake. Also noted to have productive cough as well as spitting up food. Noted leukocytosis on admission with WBC of 17.6, urinalysis not concerning for infection. Chest x-ray demonstrated bronchial wall thickening suggestive of acute on chronic bronchitis. CT thorax demonstrated irregular appearance of the lower cervical/upper thoracic esophagus. GI was consulted and patient underwent EGD on 01/05/2023, ENT was consulted to assist with the procedure and a large meat bolus was removed. Started on PPI. Speech therapy was consulted who recommended modified barium swallow, patient was noncompliant with barium swallow. Speech therapy reevaluated the patient and she was placed on a pur ed diet with thin liquids. Patient did have episode of hypoxia with tachypnea, treated with IV antibiotics for aspiration pneumonia. Rapid response was called on 01/10/2023 with concerns for seizure activity, patient was visualized to having full body seizure. Patient was on Ativan and Depakote for psychiatric history, no history of seizures. Had not received these medications in several days due to being NPO. Was treated with IV Ativan. Was postictal. Neurology was consulted. Depakote was increased to 750 mg twice daily. Neurology recommended outpatient follow-up. Today, patient has been hypotensive and bradycardic. EKG was done, concern for sinus bradycardia. On exam she is asymptomatic, alert, conversational. No complaints of dizziness or lightheadedness. Cardiology has been consulted. Objective Vitals and Measurements T: 36.5 C (Oral) TMIN: 36.5 C (Oral) TMAX: 37.2 C (Oral) HR: 55(Monitored) RR: 18 BP: 82/38 SpO2: 97% Intake and Output 7AM Yesterday to 7AM Today Intake and Output (Last 24 hours) Intake Oral Intake 300.00 Supplement Intake 237.00 Output Urinary Catheter Output: 325.00 Urine Count 1.00 Diaper Count 5.00 Total Summary Total Intake 537.00 Total Output 325.00 Fluid Balance 212.00 Physical Exam Physical Exam General: Alert, somewhat conversational. Skin: No rash. Warm, Dry, Intact HEENT: Head is normocephalic and atraumatic. No lesions. Pupils equal in size. Extraocular movements within normal limits. Nose: No septal deviation. Mouth: Oropharynx mucosa is without lesion. Neck: Supple. No lymphadenopathy, thyromegaly noted. Lungs: Bilaterally clear/diminished breath sounds with no crepitation or wheeze. Unlabored Cardiovascular: Heart is regular rhythm, S1S2, No extra-audible heart tones Abdomen: Abdomen is soft, nontender. Bowel sounds positive all four quadrants. Extremities: No clubbing, cyanosis or edema. Peripheral pulses palpable. No calf tenderness. Adequate peripheral circulation. Neurological: Following simple commands, moving all extremities. Weight Dosing Weight: 57.1 kg (01/05/23) Dosing Weight: 57.1 kg (01/04/23) Medications Medications (9) Active Scheduled: (4) fludrocortisone 0.1 mg Tablet 0.1 mg 1 tab(s), Oral, qDay LORAZEPam 1 mg Tablet 2 mg 2 tab(s), Oral, TID pantoprazole 40 mg EC tablet 40 mg 1 tab(s), Oral, BIDAC valproate sodium 750 mg 7.5 mL, IV Piggyback, BID Continuous: (0) PRN: (5) acetaminophen 325 mg Tablet 650 mg 2 tab(s), Oral, q6hWA melatonin 3 mg tablet 3 mg 1 tab(s), Oral, qHS melatonin 3 mg tablet 3 mg 1 tab(s), Oral, qHS ondansetron 4 mg DIS tablet 4 mg 1 tab(s), Oral, q6h ondansetron 4 mg tablet 4 mg 1 tab(s), Oral, q6h Lab Results 01/13 07:03 WBC: 5.8 Hgb: 12.7 Hct: 37.7 Platelet: 182 Neutrophil %: 37.5 L Glucose Level: 83 Sodium Level: 143 Potassium Level: 4.3 BUN: 11.0 Creatinine Lvl (s): 0.62 01/12 07:04 WBC: 6.3 Hgb: 12.6 Hct: 37.8 Platelet: 210 Neutrophil %: 35.7 L Glucose Level: 91 Sodium Level: 144 Potassium Level: 3.7 BUN: 13.0 Creatinine Lvl (s): 0.56 EKG Electrocardiogram (EKG) - InProcess -- 01/13/23 7:57:00 EDT Assessment/Plan 1. Esophageal impaction 2. Dysphagia 3. Aspiration pneumonia 4. Seizure-like activity 5. Symptomatic bradycardia 6. MRDD Presented with decreased appetite and coughing up food for 1 day, found to have esophageal impaction on EGD and a large meat bolus was removed. Continues on PPI. Barium swallow was recommended by speech therapy, patient was noncompliant during the procedure. Has been advanced to pur e diet with thin liquids. Concern for aspiration pneumonia secondary to dysphagia. Completed antibiotics. Seizure-like activity without history of seizures. Is maintained on Ativan and Depakote which she was on at home for psychiatric history. Neurology evaluated the patient. Recommending CT head, patient was noncompliant with this previously. To be done if patient cooperates. Patient uncooperative with EEG as she was pulling off EEG probes. This has been deferred. Ammonia level 21. Symptomatic bradycardia, patient received multiple IV fluid boluses overnight for hypotension. Blood pressure remains in the mid to low 80s, she is asymptomatic. Troponin negative. EKG demonstrated sinus bradycardia with heart rate in the 40s. Personally reviewed. Sinus bradycardia versus junctional rhythm. Cardiology consulted, discussed with Dr. Carranza, cardiac fellow. He agreed to evaluate the patient. Appreciate the recommendations. Fludrocortisone started, defer midodrine due to bradycardia. History of MRDD with autism and intermittent psychosis. Continue on valproic acid and scheduled Ativan. CODE STATUS: Full code Discussed with Dr. Balderrama. Time Spent Total time spent reviewing labs, diagnostics, evaluating the patient, and medical decision makin minutes Digitally Signed by LUCI SALCEDO on 01/13/2023 12:16 PM [facility] 01-13-2023 Cardiology Consult note Date of Service 01/13/2023 Reason for Consultation Bradycardia Referring Physician Angela Review of Systems Could not be obtained Physical Exam Vitals and Measurements T: 36.5 C (Oral) T: 36.5 C (Oral) TMIN: 36.5 C (Oral) TMAX: 37.2 C (Oral) HR: 43(Monitored) RR: 16 RR: 18 BP: 84/48 SpO2: 95% SpO2: 95% Weight Dosing Weight: 57.1 kg (01/05/23) Dosing Weight: 57.1 kg (01/04/23) General Appearance: Comfortable, not in acute distress Cardiac: S1, S2, no murmurs, regular rhythm, normal rate, no lower extremity edema, no crackles, no JVP distention, warm extremities. Lungs: No wheezes, normal chest expansion. Abdomen: No tenderness, no distention, normal bowel sounds. Musculoskeletal: No signs of acute synovitis. Neurological: Alert and oriented x3, no focal neurological deficits grossly. Psychiatric: Appropriate, normal mood. Lab Results 01/13 07:03 WBC: 5.8 Hgb: 12.7 Hct: 37.7 Platelet: 182 Neutrophil %: 37.5 L Glucose Level: 83 Sodium Level: 143 Potassium Level: 4.3 BUN: 11.0 Creatinine Lvl (s): 0.62 01/12 07:04 WBC: 6.3 Hgb: 12.6 Hct: 37.8 Platelet: 210 Neutrophil %: 35.7 L Glucose Level: 91 Sodium Level: 144 Potassium Level: 3.7 BUN: 13.0 Creatinine Lvl (s): 0.56 Assessment/Plan Orders: Echocardiogram Adult Sinus bradycardia Diffuse precordial TWI Hypotension Esophageal Food impaction, with ulceration and stricture, s/p EGD intervention 01/05/2023 Suspected seizures Learning disability, autism spectrum disorder, thrombocytopenia, bipolar disorder We will arrest is a 47-year-old woman with MRDD, no previous cardiac history, is admitted to the hospital on 01/04/2023 with esophageal food impaction, underwent EGD with disimpaction 01/05/2023, has been recovering well in terms of oral intake, is also treated for aspiration pneumonia. Cardiology is consulted for sinus bradycardia and relative hypotension. Seizure activity suspected and neurology was involved, patient could not tolerate EEG. History taking is limited by patient's mental status, however she denies chest discomfort, shortness of breath, palpitation, lightheadedness or dizziness. ECG and telemetry reviewed, patient heart rate goes as low as 37 bpm, blood pressure as low as 80s systolic. No previous TTE. ECG at baseline shows NSR with nonspecific ST-T changes and T wave flattening. When she is bradycardic her T wave inversions are more pronounced. Recommendations: We will follow-up on TTE Asymptomatic sinus bradycardia nonconcerning for cardiac etiology at this point, well-tolerated by the patient, likely explanation is increased vagal tone from esophageal manipulation and dilation, this is usually transient and self resolving Discussed with Dr. Telly Carranza MD Senior Security Engineer [employer] or Pager [phone] Problem List/Past Medical History Ongoing Autism Bipolar disorder H/O scoliosis History of psychosis Mental deficiency Historical History of MRSA infection Procedure/Surgical History None Medications Inpatient acetaminophen, 650 mg= 2 tab(s), Oral, q6hWA, PRN Depacon fludrocortisone, 0.1 mg= 1 tab(s), Oral, qDay Lactated Ringers Infusion 1,000 mL, 1000 mL, Intravenous LORazepam, 2 mg= 2 tab(s), Oral, TID melatonin, 3 mg= 1 tab(s), Oral, qHS, PRN melatonin, 3 mg= 1 tab(s), Oral, qHS, PRN ondansetron, 4 mg= 1 tab(s), Oral, q6h, PRN Protonix, 40 mg= 1 tab(s), Oral, BIDAC Zofran ODT, 4 mg= 1 tab(s), Oral, q6h, PRN Home divalproex sodium 500 mg oral tablet, extended release, 500 mg= 1 tab(s), Oral, BID LORazepam 1 mg oral tablet, 2 mg= 2 tab(s), Oral, TID montelukast 10 mg oral tablet, 10 mg= 1 tab(s), Oral, qDay traZODone 150 mg oral tablet, 150 mg= 1 tab(s), Oral, qHS Vitamin D3 50 mcg (2000 intl units) oral capsule, 50 mcg= 1 cap(s), Oral, Daily Allergies NKA Social History Smoking Status - 03/24/2018 Never smoker Alcohol - Denies Alcohol Use, 09/15/2017 Use: Never., 08/07/2019 Substance Abuse - Denies Substance Abuse, 09/15/2017 Use: Never., 07/15/2021 Tobacco - Denies Tobacco Use, 07/02/2018 Nicotine Use: Never (less than 100 in lifetime)., 08/07/2019 Immunizations SARS-CoV-2 mRNA (tozinameran) vaccine: 0.3 unknown unit (07/13/21) SARS-CoV-2 mRNA (tozinameran) vaccine: 0.3 unknown unit (08/22/20) SARS-CoV-2 mRNA (tozinameran) vaccine: 0.3 unknown unit (08/01/20) tetanus/diphth/pertuss (Tdap) adult/adol: 0.5 mL (07/03/22) Digitally Signed by BRYAN CARRANZA MD on 01/13/2023 03:27 PM [facility] 01-12-2023 Note Date of Service 01/12/2023 Chief Complaint Esophageal impaction, resolved Subjective Patient is a 47-year-old female with past medical history of bipolar disorder with psychotic episodes, autism spectrum disorder, thrombocytopenia, MRDD who presents to the emergency department on 01/04/2023 for complaints of 1 day history of increased congestion and not eating. Patient was noted to have a productive cough with purulent mucus as well as spitting up food. Patient had been slightly more agitated than her baseline. Bowel movements have been regular. Patient complained of lower abdominal pain at that time. Denied any rashes or swelling. In the emergency department patient was tachycardic with a rate of 101, blood pressure stable, oxygen saturation 90 to 92% on room air. CBC showed a white count of 17.6, platelets 126. CMP showed metabolic acidosis with a CO2 of 16. Chloride 115. Lipase 24. Urinalysis was not concerning for infection. Chest x-ray showed mild bronchial wall thickening suggestive of acute on chronic bronchitis. CT of the abdomen and pelvis showed no acute findings. CT of the thorax showed irregular appearance of the lower cervical/upper thoracic esophagus, findings are indeterminate, a soft G would be useful in further evaluation, endoscopy could also be considered for direct visualization. Differential considerations include esophageal diverticulum, however other etiologies including an underlying mass cannot be entirely excluded on these images. Course of treatment in the emergency department included Zofran and 1 L bolus of normal saline. Patient was admitted to the hospital for further evaluation and treatment. GI was consulted for possible esophageal food bolus/meat impaction. Patient underwent an EGD on 01/05/2023. ENT was consulted during the procedure to assist with removing large meat bolus. Protonix 40 mg twice daily was started. Speech therapy was consulted for further evaluation recommendations for diet. Speech therapy recommended modified barium swallow. Patient noncompliant. Patient was made NPO. Diet advanced to full liquids patient tolerating. Patient reevaluated per speech and was placed on a pur ed diet with thin liquids, straw okay, medications in pur e and assist with feedings. During hospitalization patient had episode of fever with tachypnea and decrease in oxygen saturation to 92% on 3 L. 2 view chest x-ray was obtained showing limited examination, otherwise unremarkable. It is possible that the patient developed an aspiration pneumonia due to her nausea and vomiting related to food bolus. Course of Rocephin completed for possible aspiration pneumonia. Rapid response was called on 01/10/[address] Lasren responded to rapid response. Patient was noted to have full body seizure. Patient's history discussed with her mother, patient with no underlying history of seizures. Patient is baseline on Ativan and Depakote for her psychiatric history. Medications had been held for several days due to difficulty with swallowing as well as decreased oral intake due to possible pain from esophageal ulceration. IV Ativan 2 mg given after patient's second seizure. Patient moved to monitored floor. Postictal period Noted. Patient was evaluated post seizure and found to have been mentation returned to baseline. Neurology consulted. CT head without contrast ordered if patient will cooperate. Unable to complete EEG as patient would not cooperate and was pulling off EEG probes. Ammonia level 21. Depakote increased to 750 mg twice daily. Lorazepam continued at baseline. Increase Depakote to 750 mg twice daily. Continue lorazepam at baseline. Avoid medications such as Wellbutrin, tramadol, antibiotics such as meropenem/cefepime. Seizure precautions. Follow-up with neurology in 4 to 6 weeks as an outpatient. Patient seen in her room today, sitting up in bed eating with assistance from executive director of nursing. Patient awake and alert swallow without cough or difficulty. We will continue to monitor patient's blood pressure. Hypotensive this a.m., 1 L lactated ringer bolus provided. Continue calorie count to ensure adequate nutrition. Patient remains seizure-free. Anticipate discharge in the next 24 hours. Attempted to update patient's mother, no answer received. Objective Vitals and Measurements T: 36.6 C (Oral) TMIN: 36.6 C (Oral) TMAX: 37.3 C (Oral) HR: 67(Monitored) RR: 16 BP: 90/45 SpO2: 94% Intake and Output 7AM Yesterday to 7AM Today Intake and Output (Last 24 hours) Intake Oral Intake 1440.00 Supplement Intake 237.00 Output Diaper Count 4.00 Total Summary Total Intake 1677.00 Total Output 0.00 Fluid Balance 1677.00 Physical Exam GEN: Appears chronically ill EYES: No conjunctival erythema, drainage. EOMI EARS: Hearing grossly intact. NOSE: No nasal discharge. THROAT: Oral cavity and pharynx pink and moist. CHEST: Normal S1 and S2. Rhythm is regular. Clear to auscultation, without rales, rhonchi, wheezing. ABD: Positive bowel sounds x 4 quads. Soft, nondistended, nontender. EXT: No significant deformity or joint abnormality. No edema. Peripheral pulses intact. NEURO: Sensation grossly intact SKIN: [place], warm, dry PSYCH: Patient is alert and oriented to self Weight Dosing Weight: 57.1 kg (01/05/23) Dosing Weight: 57.1 kg (01/04/23) Medications Medications (9) Active Scheduled: (3) LORAZEPam 1 mg Tablet 2 mg 2 tab(s), Oral, TID pantoprazole 40 mg EC tablet 40 mg 1 tab(s), Oral, BIDAC valproate sodium 750 mg 7.5 mL, IV Piggyback, BID Continuous: (1) Lactated Ringers 1,000 mL 1,000 mL, Intravenous, 75 mL/hr PRN: (5) acetaminophen 325 mg Tablet 650 mg 2 tab(s), Oral, q6hWA melatonin 3 mg tablet 3 mg 1 tab(s), Oral, qHS melatonin 3 mg tablet 3 mg 1 tab(s), Oral, qHS ondansetron 4 mg DIS tablet 4 mg 1 tab(s), Oral, q6h ondansetron 4 mg tablet 4 mg 1 tab(s), Oral, q6h Lab Results 01/12 07:04 WBC: 6.3 Hgb: 12.6 Hct: 37.8 Platelet: 210 Neutrophil %: 35.7 L Glucose Level: 91 Sodium Level: 144 Potassium Level: 3.7 BUN: 13.0 Creatinine Lvl (s): 0.56 01/11 06:07 WBC: 7.4 Hgb: 12.9 Hct: 38.0 Platelet: 230 Neutrophil %: 42.6 L Glucose Level: 85 Sodium Level: 146 H Potassium Level: 3.5 BUN: 16.0 Creatinine Lvl (s): 0.67 Imaging Results and Diagnostics XR Swallowing Function Result Date: January 07, 2023 Verified By: CLINICAL STATEMENT: IMPRESSION: XR Chest 2 Views Result Date: January 06, 2023 Verified By: SEFERINO MCKEON MD CLINICAL STATEMENT: IMPRESSION: Limited examination, otherwise unremarkable. CT Abd/Pelvis w/ IV Contrast Only Result Date: January 05, 2023 Verified By: ALDO ARMANDO MD CLINICAL STATEMENT: IMPRESSION: No acute findings. I have personally reviewed the images of this examination and agree with theresident's findings and interpretation. CT Thorax w/ Contrast Result Date: January 05, 2023 Verified By: ALDO ARMANDO MD CLINICAL STATEMENT: IMPRESSION: Irregular appearance of the lower cervical/upper thoracic esophagus, findingsare indeterminate, a soft g would be useful in further evaluation, endoscopycould also be considered for direct visualization. Differentialconsiderations include esophageal diverticulum, however other etiologiesincluding an underlying mass cannot entirely be excluded on these images. I have personally reviewed the images of this examination and agree with theresident's findings and interpretation. XR Chest 1 View Result Date: January 04, 2023 Verified By: JAVIER CATES MD CLINICAL STATEMENT: IMPRESSION: Suggested mild bronchial wall thickening which could reflect acute or chronicbronchitis. No focal consolidation EKG No qualifying data available. Assessment/Plan Seizure activity Esophageal impaction Probable aspiration pneumonia Vomiting Cough Hyperchloremia with metabolic acidosis Thrombocytopenia Seizure activity -Neurology consulted, appreciate input. CT head without contrast ordered if patient will cooperate. Unable to complete EEG as patient would not cooperate and was pulling off EEG probes. Ammonia level 21. Depakote increased to 750 mg twice daily. Lorazepam continued at baseline. Increase Depakote to 750 mg twice daily. Continue lorazepam at baseline. Avoid medications such as Wellbutrin, tramadol, antibiotics such as meropenem/cefepime. Seizure precautions. Follow-up with neurology in 4 to 6 weeks as an outpatient. Esophageal impaction CT of the abdomen and pelvis showed no acute findings. - CT of the thorax showed irregular appearance of the lower cervical/upper thoracic esophagus, findings are indeterminate, a soft G would be useful in further evaluation, endoscopy could also be considered for direct visualization. Differential considerations include esophageal diverticulum, however other etiologies including an underlying mass cannot be entirely excluded on these images. GI consult, appreciate input. Patient underwent an EGD on 01/05/2023 where a large meat impaction was removed with the help of ENT .After removal of the old bolus and esophageal stricture and small ulceration noted in the upper esophagus. Likely related to food bolus. Gastric lumen notable for gastritis. A linear tear was noted at 37 cm which was superficial and did not appear to be a herber perforation. -Protonix twice daily -Per speech therapy recommendations, Small bites of food, small sips of liquids, crushed meds, meds whole in pur e, total assist with feeding. -Calorie count x3 days started on 01/11/2023, To assess for adequate nutrition. Hypotension -Systolic blood pressure on 01/11/2023 in the 80s. 500 mL bolus lactated Ringer's given with adequate response. -Patient's with several hypotensive readings early 01/12/2023. 1 L lactated Ringer's bolus given. Aspiration pneumonia, antibiotic course complete. Weaned to room air. Psychiatric history. Documented history of autism, bipolar disorder, MRDD, psychosis. She is appropriately communicative at this time. Does not appear catatonic. Mildly anxious with fidgeting. She is eager to participate in her care. Continue Depakote and Ativan. Thrombocytopenia. Chronic. We will monitor DVT prophylaxis: SCDs Case discussed with collaborating physician Dr. Balderrama Note dictated using voice recognition software and may contain typographical errors. Time Spent I have spent a total of 35 minutes reviewing the patient's diagnostic labs and testing, seeing and examining the patient, and documenting in the medical record. Please see assessment for further detail. Digitally Signed by NIRMALA LOPEZ on 01/12/2023 03:08 PM [facility] 01-12-2023 Note Date of Service 01/12/2023 Chief Complaint Esophageal impaction, resolved Subjective Patient is a 47-year-old female with past medical history of bipolar disorder with psychotic episodes, autism spectrum disorder, thrombocytopenia, MRDD who presents to the emergency department on 01/04/2023 for complaints of 1 day history of increased congestion and not eating. Patient was noted to have a productive cough with purulent mucus as well as spitting up food. Patient had been slightly more agitated than her baseline. Bowel movements have been regular. Patient complained of lower abdominal pain at that time. Denied any rashes or swelling. In the emergency department patient was tachycardic with a rate of 101, blood pressure stable, oxygen saturation 90 to 92% on room air. CBC showed a white count of 17.6, platelets 126. CMP showed metabolic acidosis with a CO2 of 16. Chloride 115. Lipase 24. Urinalysis was not concerning for infection. Chest x-ray showed mild bronchial wall thickening suggestive of acute on chronic bronchitis. CT of the abdomen and pelvis showed no acute findings. CT of the thorax showed irregular appearance of the lower cervical/upper thoracic esophagus, findings are indeterminate, a soft G would be useful in further evaluation, endoscopy could also be considered for direct visualization. Differential considerations include esophageal diverticulum, however other etiologies including an underlying mass cannot be entirely excluded on these images. Course of treatment in the emergency department included Zofran and 1 L bolus of normal saline. Patient was admitted to the hospital for further evaluation and treatment. GI was consulted for possible esophageal food bolus/meat impaction. Patient underwent an EGD on 01/05/2023. ENT was consulted during the procedure to assist with removing large meat bolus. Protonix 40 mg twice daily was started. Speech therapy was consulted for further evaluation recommendations for diet. Speech therapy recommended modified barium swallow. Patient noncompliant. Patient was made NPO. Diet advanced to full liquids patient tolerating. Patient reevaluated per speech and was placed on a pur ed diet with thin liquids, straw okay, medications in pur e and assist with feedings. During hospitalization patient had episode of fever with tachypnea and decrease in oxygen saturation to 92% on 3 L. 2 view chest x-ray was obtained showing limited examination, otherwise unremarkable. It is possible that the patient developed an aspiration pneumonia due to her nausea and vomiting related to food bolus. Course of Rocephin completed for possible aspiration pneumonia. Rapid response was called on 01/10/[address] Larsen responded to rapid response. Patient was noted to have full body seizure. Patient's history discussed with her mother, patient with no underlying history of seizures. Patient is baseline on Ativan and Depakote for her psychiatric history. Medications had been held for several days due to difficulty with swallowing as well as decreased oral intake due to possible pain from esophageal ulceration. IV Ativan 2 mg given after patient's second seizure. Patient moved to monitored floor. Postictal period Noted. Patient was evaluated post seizure and found to have been mentation returned to baseline. Neurology consulted. CT head without contrast ordered if patient will cooperate. Unable to complete EEG as patient would not cooperate and was pulling off EEG probes. Ammonia level 21. Depakote increased to 750 mg twice daily. Lorazepam continued at baseline. Increase Depakote to 750 mg twice daily. Continue lorazepam at baseline. Avoid medications such as Wellbutrin, tramadol, antibiotics such as meropenem/cefepime. Seizure precautions. Follow-up with neurology in 4 to 6 weeks as an outpatient. Patient seen in her room today, sitting up in bed eating with assistance from executive director of nursing. Patient awake and alert swallow without cough or difficulty. We will continue to monitor patient's blood pressure. Hypotensive this a.m., 1 L lactated ringer bolus provided. Continue calorie count to ensure adequate nutrition. Patient remains seizure-free. Anticipate discharge in the next 24 hours. Attempted to update patient's mother, no answer received. Objective Vitals and Measurements T: 36.6 C (Oral) TMIN: 36.6 C (Oral) TMAX: 37.3 C (Oral) HR: 67(Monitored) RR: 16 BP: 90/45 SpO2: 94% Intake and Output 7AM Yesterday to 7AM Today Intake and Output (Last 24 hours) Intake Oral Intake 1440.00 Supplement Intake 237.00 Output Diaper Count 4.00 Total Summary Total Intake 1677.00 Total Output 0.00 Fluid Balance 1677.00 Physical Exam GEN: Appears chronically ill EYES: No conjunctival erythema, drainage. EOMI EARS: Hearing grossly intact. NOSE: No nasal discharge. THROAT: Oral cavity and pharynx pink and moist. CHEST: Normal S1 and S2. Rhythm is regular. Clear to auscultation, without rales, rhonchi, wheezing. ABD: Positive bowel sounds x 4 quads. Soft, nondistended, nontender. EXT: No significant deformity or joint abnormality. No edema. Peripheral pulses intact. NEURO: Sensation grossly intact SKIN: [place], warm, dry PSYCH: Patient is alert and oriented to self Weight Dosing Weight: 57.1 kg (01/05/23) Dosing Weight: 57.1 kg (01/04/23) Medications Medications (9) Active Scheduled: (3) LORAZEPam 1 mg Tablet 2 mg 2 tab(s), Oral, TID pantoprazole 40 mg EC tablet 40 mg 1 tab(s), Oral, BIDAC valproate sodium 750 mg 7.5 mL, IV Piggyback, BID Continuous: (1) Lactated Ringers 1,000 mL 1,000 mL, Intravenous, 75 mL/hr PRN: (5) acetaminophen 325 mg Tablet 650 mg 2 tab(s), Oral, q6hWA melatonin 3 mg tablet 3 mg 1 tab(s), Oral, qHS melatonin 3 mg tablet 3 mg 1 tab(s), Oral, qHS ondansetron 4 mg DIS tablet 4 mg 1 tab(s), Oral, q6h ondansetron 4 mg tablet 4 mg 1 tab(s), Oral, q6h Lab Results 01/12 07:04 WBC: 6.3 Hgb: 12.6 Hct: 37.8 Platelet: 210 Neutrophil %: 35.7 L Glucose Level: 91 Sodium Level: 144 Potassium Level: 3.7 BUN: 13.0 Creatinine Lvl (s): 0.56 01/11 06:07 WBC: 7.4 Hgb: 12.9 Hct: 38.0 Platelet: 230 Neutrophil %: 42.6 L Glucose Level: 85 Sodium Level: 146 H Potassium Level: 3.5 BUN: 16.0 Creatinine Lvl (s): 0.67 Imaging Results and Diagnostics XR Swallowing Function Result Date: January 07, 2023 Verified By: CLINICAL STATEMENT: IMPRESSION: XR Chest 2 Views Result Date: January 06, 2023 Verified By: SEFERINO MCKEON MD CLINICAL STATEMENT: IMPRESSION: Limited examination, otherwise unremarkable. CT Abd/Pelvis w/ IV Contrast Only Result Date: January 05, 2023 Verified By: ALDO ARMANDO MD CLINICAL STATEMENT: IMPRESSION: No acute findings. I have personally reviewed the images of this examination and agree with theresident's findings and interpretation. CT Thorax w/ Contrast Result Date: January 05, 2023 Verified By: ALDO ARMANDO MD CLINICAL STATEMENT: IMPRESSION: Irregular appearance of the lower cervical/upper thoracic esophagus, findingsare indeterminate, a soft g would be useful in further evaluation, endoscopycould also be considered for direct visualization. Differentialconsiderations include esophageal diverticulum, however other etiologiesincluding an underlying mass cannot entirely be excluded on these images. I have personally reviewed the images of this examination and agree with theresident's findings and interpretation. XR Chest 1 View Result Date: January 04, 2023 Verified By: JAVIER CATES MD CLINICAL STATEMENT: IMPRESSION: Suggested mild bronchial wall thickening which could reflect acute or chronicbronchitis. No focal consolidation EKG No qualifying data available. Assessment/Plan Seizure activity Esophageal impaction Probable aspiration pneumonia Vomiting Cough Hyperchloremia with metabolic acidosis Thrombocytopenia Seizure activity -Neurology consulted, appreciate input. CT head without contrast ordered if patient will cooperate. Unable to complete EEG as patient would not cooperate and was pulling off EEG probes. Ammonia level 21. Depakote increased to 750 mg twice daily. Lorazepam continued at baseline. Increase Depakote to 750 mg twice daily. Continue lorazepam at baseline. Avoid medications such as Wellbutrin, tramadol, antibiotics such as meropenem/cefepime. Seizure precautions. Follow-up with neurology in 4 to 6 weeks as an outpatient. Esophageal impaction CT of the abdomen and pelvis showed no acute findings. - CT of the thorax showed irregular appearance of the lower cervical/upper thoracic esophagus, findings are indeterminate, a soft G would be useful in further evaluation, endoscopy could also be considered for direct visualization. Differential considerations include esophageal diverticulum, however other etiologies including an underlying mass cannot be entirely excluded on these images. GI consult, appreciate input. Patient underwent an EGD on 01/05/2023 where a large meat impaction was removed with the help of ENT .After removal of the old bolus and esophageal stricture and small ulceration noted in the upper esophagus. Likely related to food bolus. Gastric lumen notable for gastritis. A linear tear was noted at 37 cm which was superficial and did not appear to be a herber perforation. -Protonix twice daily -Per speech therapy recommendations, Small bites of food, small sips of liquids, crushed meds, meds whole in pur e, total assist with feeding. -Calorie count x3 days started on 01/11/2023, To assess for adequate nutrition. Hypotension -Systolic blood pressure on 01/11/2023 in the 80s. 500 mL bolus lactated Ringer's given with adequate response. -Patient's with several hypotensive readings early 01/12/2023. 1 L lactated Ringer's bolus given. Aspiration pneumonia, antibiotic course complete. Weaned to room air. Psychiatric history. Documented history of autism, bipolar disorder, MRDD, psychosis. She is appropriately communicative at this time. Does not appear catatonic. Mildly anxious with fidgeting. She is eager to participate in her care. Continue Depakote and Ativan. Thrombocytopenia. Chronic. We will monitor DVT prophylaxis: SCDs Case discussed with collaborating physician Dr. Balderrama Note dictated using voice recognition software and may contain typographical errors. Time Spent I have spent a total of 35 minutes reviewing the patient's diagnostic labs and testing, seeing and examining the patient, and documenting in the medical record. Please see assessment for further detail. Digitally Signed by NIRMALA LOPEZ on 01/12/2023 03:08 PM [facility] 01-11-2023 Neurology Progress note Date of Service 01/11/23 Chief Complaint seizure Subjective Patient is seen and examined without family present. Bedside RN reports overnight no concerns for seizure-like activity or acute events. Nurse reports patient appears same compared to yesterday, Pt is alert, following commands, moving extremities equally and is able to state her name, that she is at the hospital and carry conversation. Will nod yes/no answers. While present no concerns for seizure like activity. Objective Vitals and Measurements T: 36.8 C (Oral) TMIN: 36.5 C (Axillary) TMAX: 37.5 C (Axillary) HR: 69 RR: 18 BP: 98/54 SpO2: 98% Intake and Output 7AM Yesterday to 7AM Today Intake and Output (Last 24 hours) Intake Output Total Summary Total Intake 0.00 Total Output 0.00 Fluid Balance 0.00 Physical Exam General Examination: awake, alert to self and place, follow commands to lift extremities, open/close eyes and smile, will nod no/yes responses. HEENT: normocephalic, pupils BERL Heart: normal S1 S2 Lungs: Bilateral air entry present Abdomen: bowel sounds present Neuro: awake, alert to self and place, follow commands to lift extremities, open/close eyes and smile, will no no/yes responses. CN II-XII normal, no Nystagmus, EOMI, pupils BERL, No facial sensory loss, no facial asymmetry, tongue protrudes in midline, no uvula deviation, normal shoulder shrug, Power 4/5 B/L UE and LE, tone normal all 4 extremities, No tremors, plantars B/L withdrawal, Reflexes/cerebellar/sensory and gait could not be assessed, No involuntary movements, No sensory loss to light touch/temperature, normal joint/position/vibration sense, gait deferred, No frontal release signs. No involuntary movements, No NR, No Kernig s sign, No Brudzinski s sign. Weight Dosing Weight: 57.1 kg (01/05/23) Dosing Weight: 57.1 kg (01/04/23) Medications Medications (8) Active Scheduled: (3) LORAZEPam 1 mg Tablet 2 mg 2 tab(s), Oral, TID pantoprazole 40 mg EC tablet 40 mg 1 tab(s), Oral, BIDAC valproate sodium 750 mg 7.5 mL, IV Piggyback, BID Continuous: (0) PRN: (5) acetaminophen 325 mg Tablet 650 mg 2 tab(s), Oral, q6hWA melatonin 3 mg tablet 3 mg 1 tab(s), Oral, qHS melatonin 3 mg tablet 3 mg 1 tab(s), Oral, qHS ondansetron 4 mg DIS tablet 4 mg 1 tab(s), Oral, q6h ondansetron 4 mg tablet 4 mg 1 tab(s), Oral, q6h Lab Results 01/11 06:07 WBC: 7.4 Hgb: 12.9 Hct: 38.0 Platelet: 230 Neutrophil %: 42.6 L Glucose Level: 85 Sodium Level: 146 H Potassium Level: 3.5 BUN: 16.0 Creatinine Lvl (s): 0.67 01/10 03:44 Glucose Level: 97 Sodium Level: 146 H Potassium Level: 4.1 BUN: 15.0 Creatinine Lvl (s): 0.59 Imaging Results and Diagnostics XR Swallowing Function Result Date: January 07, 2023 Verified By: CLINICAL STATEMENT: IMPRESSION: XR Chest 2 Views Result Date: January 06, 2023 Verified By: SEFERINO MCKEON MD CLINICAL STATEMENT: IMPRESSION: Limited examination, otherwise unremarkable. CT Abd/Pelvis w/ IV Contrast Only Result Date: January 05, 2023 Verified By: ALDO ARMANDO MD CLINICAL STATEMENT: IMPRESSION: No acute findings. I have personally reviewed the images of this examination and agree with theresident's findings and interpretation. CT Thorax w/ Contrast Result Date: January 05, 2023 Verified By: ALDO ARMANDO MD CLINICAL STATEMENT: IMPRESSION: Irregular appearance of the lower cervical/upper thoracic esophagus, findingsare indeterminate, a soft g would be useful in further evaluation, endoscopycould also be considered for direct visualization. Differentialconsiderations include esophageal diverticulum, however other etiologiesincluding an underlying mass cannot entirely be excluded on these images. I have personally reviewed the images of this examination and agree with theresident's findings and interpretation. XR Chest 1 View Result Date: January 04, 2023 Verified By: JAVIER CATES MD CLINICAL STATEMENT: IMPRESSION: Suggested mild bronchial wall thickening which could reflect acute or chronicbronchitis. No focal consolidation Assessment/Plan 47 yr F with PMH autism, MRDD, bipolar d/o, psychosis, impulse control d/o admitted from her group resident with poor oral intake. Found to have esophageal impaction, s/p removal of large meat impaction, esophageal stricture as well as ulceration and aspiration PNA. Neurology consulted for seizure. Per documentation patient had full body seizure like activity this morning. Per documentation at her baseline she is able to perform most of her ADLs independently, able to carry conversation. Patient is on Depakote 500 mg BID at baseline for bipolar mood d/o. Patient was loaded with Ativan this morning after the event per documentation. LFTs normal. Depakote increased to 750 mg BID. Impressions: Seizure like activity Esophageal impaction, s/p removal of large meat impaction, esophageal stricture as well as Ulceration Aspiration PNA Plan: -Would like a CT head w/o contrast if patient cooperates -EEG unable to be completed this morning as she would not cooperate and was pulling off EEG probes -Labs reviewed. Ammonia level 21. -On Depakote to 750 mg BID. S/E discussed -On Lorazepam at baseline. -Patient should be compliant with AEDs -Avoid medications like Wellbutrin, Tramadol , antibiotics like Meropenem/Cefepime which can lower seizure threshold -Seizure precautions -Patient should not drive for 6 months and would need clearance from outpatient neurologist prior to driving. -GI/DVT prophylaxis -PT/OT/ST -Fall precautions -Further medical management per medical team -Follow up with Neurology in 4-6 weeks as outpatient, EEG OP Discussed plan with collaborating physician, who agrees Independently spent 35 minutes with the patient -Will sign off. Please call with questions if any in the interim. Thank you for requesting our participation in the care of your patient. Digitally Signed by SARAH PATEL on 01/11/2023 03:54 PM [facility] 01-11-2023 Note Chief Complaint: Transition plan Transitional Action Points Patient is hospitalized with hypoxia, vomiting, food bolus impaction Is from a shelter Second hospitalization in the past 12 months. I am recommending she transition back to shelter once medically stable. Speech therapy continues to work with patient due to fear of eating Assessment/Plan Food bolus impaction Hypoxia Readmission Risk Points Multiple hospitalizations Autism Bipolar disorder Dysphagia History of Present Illness Review of Symptoms General: Denies fever or chills Musculoskeletal: Denies injury Neuro: Denies dizziness Physical Exam General: No acute distress Musculoskeletal: Weakness present Neurological: No tremors or focal deficit Psych: mood cooperative Vitals Signs(Last 24 hrs)__Last Charted Minimum Maxim um TempH 37.2(JAN 11 03:24)36.6(JAN 10 10:48)H 37.2(JAN 10 14:30) Heart RateL 56(JAN 11 03:24)L 56(JAN 11 03:24)99(JAN 10 10:48) Resp RateH 21(JAN 11 03:24)18(JAN 10 06:51)H 24(JAN 10 10:11) SBP92(JAN 11 03:24)90(JAN 10 10:11)129(JAN 10 09:56) DBPC 44(JAN 11 03:24)C 44(JAN 11 03:24)81(JAN 10 10:48) Problem List/ Past Medical History Autism Bipolar disorder H/O scoliosis History of psychosis Mental deficiency History of MRSA infection: 08/24/22 Procedure/ Surgical History None Medication List Active Medications Ordered acetaminophen: 650 mg, 2 tab(s), Oral, q6hWA, PRN: as needed for pain. LORazepam: 2 mg, 2 tab(s), Oral, TID. melatonin: 3 mg, 1 tab(s), Oral, qHS, PRN: Sleep. melatonin: 3 mg, 1 tab(s), Oral, qHS, PRN: Sleep. ondansetron: 4 mg, 1 tab(s), Oral, q6h, PRN: Nausea/Vomiting. ondansetron: 4 mg, 1 tab(s), Oral, q6h, PRN: Nausea/Vomiting. pantoprazole: 40 mg, 1 tab(s), Oral, BIDAC. valproic acid: 750 mg, 7.5 mL, 100 mL/hr, IV Piggyback, BID. Documented cholecalciferol: 50 mcg, 1 cap(s), Oral, Daily, 0 Refill(s). divalproex sodium: 500 mg, 1 tab(s), Oral, BID. LORazepam: 2 mg, 2 tab(s), Oral, TID. montelukast: 10 mg, 1 tab(s), Oral, qDay, 0 Refill(s). traZODone: 150 mg, 1 tab(s), Oral, qHS, 30 tab(s), 0 Refill(s). Medications Inactivated in the Last 72 Hours azithromycin: 500 mg, 5 mL, 250 mL/hr, IV Piggyback, qDay. cefTRIAXone: 2 gram(s), 20 mL, 240 mL/hr, IV Push (INT), qDay. divalproex sodium: 500 mg, 1 tab(s), Oral, BID. divalproex sodium: 500 mg, 1 tab(s), Oral, BID. Lactated Ringers Infusion 1,000 mL: 100 mL/hr, Intravenous. LORazepam: 1 mg, 0.5 mL, IV Push, q6hr, PRN: Agitation. LORazepam: Miscellaneous, Once. LORazepam: 2 mg, 1 mL, IV Push, Ad Hoc. LORazepam: 2 mg, 1 mL, IV Push, now. LORazepam: Miscellaneous, Once. LORazepam: 2 mg, 1 mL, IV Push, now. ondansetron: 4 mg, 2 mL, IV Push, q4h, PRN: Nausea/Vomiting. pantoprazole: 40 mg, IV Push, BID. valproic acid: 500 mg, 5 mL, 100 mL/hr, IV Piggyback, Once. valproic acid: 750 mg, 7.5 mL, IV Piggyback, BID. Allergies NKA Social Hx Alcohol Risk Assessment: Denies Alcohol Use; Details: Use: Never. Substance Abuse Risk Assessment: Denies Substance Abuse; Details: Use: Never. Tobacco Risk Assessment: Denies Tobacco Use; Details: Nicotine Use: Never (less than 100 in lifetime). Family Medical Hx No family history recorded. Code Status Code Status - Ordered -- 01/05/23 1:43:00 EDT, Full Code, Constant Order Medications reviewed and up to date I Patsy Masterson RN am scribing for Caroline Antony NP, in the presence of Caroline Antony. I Caroline Antony [employer] personally preformed the services described in this documentation as described by Patsy Masterson RN in my presence and it is both accurate and complete. This document is transcribed using voice recognition software that may contain typographical errors. Digitally Signed by CAROLINE ANTONY on 01/11/2023 06:33 AM [facility] 01-11-2023 Note Chief Complaint: Transition plan Transitional Action Points Patient is hospitalized with hypoxia, vomiting, food bolus impaction Is from a shelter Second hospitalization in the past 12 months. I am recommending she transition back to shelter once medically stable. Speech therapy continues to work with patient due to fear of eating Assessment/Plan Food bolus impaction Hypoxia Readmission Risk Points Multiple hospitalizations Autism Bipolar disorder Dysphagia History of Present Illness Review of Symptoms General: Denies fever or chills Musculoskeletal: Denies injury Neuro: Denies dizziness Physical Exam General: No acute distress Musculoskeletal: Weakness present Neurological: No tremors or focal deficit Psych: mood cooperative Vitals Signs(Last 24 hrs)__Last Charted Minimum Maxim um TempH 37.2(JAN 11 03:24)36.6(JAN 10 10:48)H 37.2(JAN 10 14:30) Heart RateL 56(JAN 11 03:24)L 56(JAN 11 03:24)99(JAN 10 10:48) Resp RateH 21(JAN 11 03:24)18(JAN 10 06:51)H 24(JAN 10 10:11) SBP92(JAN 11:24)90(JAN 10 10:11)129(JAN 10 09:56) DBPC 44(JAN 11 03:24)C 44(JAN 11 03:24)81(JAN 10 10:48) Problem List/ Past Medical History Autism Bipolar disorder H/O scoliosis History of psychosis Mental deficiency History of MRSA infection: 08/24/22 Procedure/ Surgical History None Medication List Active Medications Ordered acetaminophen: 650 mg, 2 tab(s), Oral, q6hWA, PRN: as needed for pain. LORazepam: 2 mg, 2 tab(s), Oral, TID. melatonin: 3 mg, 1 tab(s), Oral, qHS, PRN: Sleep. melatonin: 3 mg, 1 tab(s), Oral, qHS, PRN: Sleep. ondansetron: 4 mg, 1 tab(s), Oral, q6h, PRN: Nausea/Vomiting. ondansetron: 4 mg, 1 tab(s), Oral, q6h, PRN: Nausea/Vomiting. pantoprazole: 40 mg, 1 tab(s), Oral, BIDAC. valproic acid: 750 mg, 7.5 mL, 100 mL/hr, IV Piggyback, BID. Documented cholecalciferol: 50 mcg, 1 cap(s), Oral, Daily, 0 Refill(s). divalproex sodium: 500 mg, 1 tab(s), Oral, BID. LORazepam: 2 mg, 2 tab(s), Oral, TID. montelukast: 10 mg, 1 tab(s), Oral, qDay, 0 Refill(s). traZODone: 150 mg, 1 tab(s), Oral, qHS, 30 tab(s), 0 Refill(s). Medications Inactivated in the Last 72 Hours azithromycin: 500 mg, 5 mL, 250 mL/hr, IV Piggyback, qDay. cefTRIAXone: 2 gram(s), 20 mL, 240 mL/hr, IV Push (INT), qDay. divalproex sodium: 500 mg, 1 tab(s), Oral, BID. divalproex sodium: 500 mg, 1 tab(s), Oral, BID. Lactated Ringers Infusion 1,000 mL: 100 mL/hr, Intravenous. LORazepam: 1 mg, 0.5 mL, IV Push, q6hr, PRN: Agitation. LORazepam: Miscellaneous, Once. LORazepam: 2 mg, 1 mL, IV Push, Ad Hoc. LORazepam: 2 mg, 1 mL, IV Push, now. LORazepam: Miscellaneous, Once. LORazepam: 2 mg, 1 mL, IV Push, now. ondansetron: 4 mg, 2 mL, IV Push, q4h, PRN: Nausea/Vomiting. pantoprazole: 40 mg, IV Push, BID. valproic acid: 500 mg, 5 mL, 100 mL/hr, IV Piggyback, Once. valproic acid: 750 mg, 7.5 mL, IV Piggyback, BID. Allergies NKA Social Hx Alcohol Risk Assessment: Denies Alcohol Use; Details: Use: Never. Substance Abuse Risk Assessment: Denies Substance Abuse; Details: Use: Never. Tobacco Risk Assessment: Denies Tobacco Use; Details: Nicotine Use: Never (less than 100 in lifetime). Family Medical Hx No family history recorded. Code Status Code Status - Ordered -- 01/05/23 1:43:00 EDT, Full Code, Constant Order Medications reviewed and up to date I Patsy Masterson RN am scribing for Caroline Antony NP, in the presence of Caroline Antony. I Caroline Antony NP personally preformed the services described in this documentation as described by Patsy Masterson RN in my presence and it is both accurate and complete. This document is transcribed using voice recognition software that may contain typographical errors. Digitally Signed by CAROLINE ANTONY on 01/11/2023 06:33 AM [facility] 01-10-2023 Note Chief Complaint dysphagia Subjective 47YOF (bipolar d/o, autism spectrum, TCP) who presented on January 04 with vomiting and found to have large esophageal food impaction, which was removed. Was initially tachycardic and hypoxic and there was concern for perforation, which proved to not be the case. Patient also had difficulties with swallowing and it was felt to be largely behavioral and partly from ulceration from food impaction. She tolerated full liquids over the weekend. Patient has been weaned from O2. Mentation at baseline. Here today patient was doing well but had a generalized TC seizure this morning. SHe was postictal immediately after. Seen later in day and back to baseline. On exam patient answers simple questions most of the time. More participation when her mother is around. Lungs and not coarse today. No wheeze. Neuro at baseline. Abdomen benign. Objective Vitals and Measurements T: 37.2 C (Axillary) TMIN: 36.6 C (Axillary) TMAX: 37.2 C (Oral) HR: 65(Monitored) RR: 22 BP: 96/53 SpO2: 93% Intake and Output 7AM Yesterday to 7AM Today Intake and Output (Last 24 hours) Intake Supplement Intake 118.00 Output Stool Count 2.00 Diaper Count 1.00 Total Summary Total Intake 118.00 Total Output 0.00 Fluid Balance 118.00 Physical Exam Weight Dosing Weight: 57.1 kg (01/05/23) Dosing Weight: 57.1 kg (01/04/23) Medications Medications (8) Active Scheduled: (3) LORAZEPam 2 mg Tablet 2 mg 1 tab(s), Oral, TID pantoprazole 40 mg EC tablet 40 mg 1 tab(s), Oral, BIDAC valproate sodium 750 mg 7.5 mL, IV Piggyback, BID Continuous: (0) PRN: (5) acetaminophen 325 mg Tablet 650 mg 2 tab(s), Oral, q6hWA melatonin 3 mg tablet 3 mg 1 tab(s), Oral, qHS melatonin 3 mg tablet 3 mg 1 tab(s), Oral, qHS ondansetron 4 mg DIS tablet 4 mg 1 tab(s), Oral, q6h ondansetron 4 mg tablet 4 mg 1 tab(s), Oral, q6h Lab Results 01/10 03:44 Glucose Level: 97 Sodium Level: 146 H Potassium Level: 4.1 BUN: 15.0 Creatinine Lvl (s): 0.59 01/09 06:59 WBC: 6.8 Hgb: 12.8 Hct: 37.2 Platelet: 177 Glucose Level: 86 Sodium Level: 145 Potassium Level: 3.4 L BUN: 14.0 Creatinine Lvl (s): 0.50 EKG No qualifying data available. Assessment/Plan 1. Esophageal obstruction due to food impaction 2. Vomiting 3. Dysphagia 4. Bipolar disorder 5. Autism 6. Seizure d/w parents at bedside d/w rapid response nurse d/w neurology attending d/w GI attending d/w speech therapy Continue diet per speech therapy recommendation. Some risk of aspiration but patient doing well, particularly with family present. Hesitant for PEG as eating one of patients life pleasures. Will continue to optimize what we can from PO intake per family and medical team discussion. GTC seizure today without history of same. Normally on depakote and lorazepam for behaviors. She had not required these here and was not taking PO. Certainly withdrawal seizures can occur, but usually much more immediately than in this time frame. d/w neurology who recommended increasing depakote. Patient likely to be successful back on her home regimen. DC ABX. Five days completed for potential aspiration. DC in 24-48h pending PO intake and seizure activity. Orders: LORazepam, Start: 01/10/23 10:07:00 EDT, Dose = 2 mg, = 1 tab(s), Oral, TID, 01/10/23 10:07:00 EDT Consult to Physician EEG Routine Nutritional Supplement Order Nutritional Supplement Order Suction canister ([id number]) Transfer/Change in Level of Care Digitally Signed by PARI LARSEN MD FACP on 01/10/2023 04:10 PM [facility] 01-10-2023 Neurology Consult note Date of Service 01/10/2023 Reason for Consultation [facility] Referring Physician Dr. Larsen History of Present Illness 47 yr F with PMH autism, MRDD, bipolar d/o, psychosis, impulse control d/o admitted from her group resident with poor oral intake. Found to have esophageal impaction, s/p removal of large meat impaction, esophageal stricture as well as ulceration and aspiration PNA. Neurology consulted for seizure. Per documentation patient had full body seizure like activity this morning. Per documentation at her baseline she is able to perform most of her ADLs independently, able to carry conversation Patient is on Depakote 500 mg BID at baseline for bipolar mood d/o. Patient was loaded with Ativan this morning after the event per documentation. LFTs normal. Review of Systems ROS could not be obtained as patient is not cooperative Physical Exam Vitals and Measurements T: 36.6 C (Axillary) TMIN: 36.6 C (Axillary) TMAX: 37.2 C (Oral) HR: 99(Monitored) RR: 22 BP: 105/81 SpO2: 94% Weight Dosing Weight: 57.1 kg (01/05/23) Dosing Weight: 57.1 kg (01/04/23) General Examination: awake, does recognize mother at bedside, does not follow commands but likely chooses not to answer or follow commands HEENT: normocephalic, pupils BERL Heart: normal S1 S2 Lungs: Bilateral air entry present Abdomen: bowel sounds present Neuro: awake, does not choose to answer or follow commands, moves all extremities spontaneously, plantars B/L withdrawal, limited Neurology examination, Reflexes/cerebellar/sensory and gait could not be assessed, No involuntary movements, No NR Lab Results 01/10 03:44 Glucose Level: 97 Sodium Level: 146 H Potassium Level: 4.1 BUN: 15.0 Creatinine Lvl (s): 0.59 01/09 06:59 WBC: 6.8 Hgb: 12.8 Hct: 37.2 Platelet: 177 Glucose Level: 86 Sodium Level: 145 Potassium Level: 3.4 L BUN: 14.0 Creatinine Lvl (s): 0.50 Imaging Results and Diagnostics XR Swallowing Function Result Date: January 07, 2023 Verified By: CLINICAL STATEMENT: IMPRESSION: XR Chest 2 Views Result Date: January 06, 2023 Verified By: SEFERINO MCKEON MD CLINICAL STATEMENT: IMPRESSION: Limited examination, otherwise unremarkable. CT Abd/Pelvis w/ IV Contrast Only Result Date: January 05, 2023 Verified By: ALDO ARMANDO MD CLINICAL STATEMENT: IMPRESSION: No acute findings. I have personally reviewed the images of this examination and agree with keli's findings and interpretation. CT Thorax w/ Contrast Result Date: January 05, 2023 Verified By: ALDO ARMANDO MD CLINICAL STATEMENT: IMPRESSION: Irregular appearance of the lower cervical/upper thoracic esophagus, findingsare indeterminate, a soft g would be useful in further evaluation, endoscopycould also be considered for direct visualization. Differentialconsiderations include esophageal diverticulum, however other etiologiesincluding an underlying mass cannot entirely be excluded on these images. I have personally reviewed the images of this examination and agree with keli's findings and interpretation. XR Chest 1 View Result Date: January 04, 2023 Verified By: JAVIER CATES MD CLINICAL STATEMENT: IMPRESSION: Suggested mild bronchial wall thickening which could reflect acute or chronicbronchitis. No focal consolidation Assessment/Plan 47 yr F with PMH autism, MRDD, bipolar d/o, psychosis, impulse control d/o admitted from her group resident with poor oral intake. Found to have esophageal impaction, s/p removal of large meat impaction, esophageal stricture as well as ulceration and aspiration PNA. Neurology consulted for seizure. Per documentation patient had full body seizure like activity this morning. Per documentation at her baseline she is able to perform most of her ADLs independently, able to carry conversation Patient is on Depakote 500 mg BID at baseline for bipolar mood d/o. Patient was loaded with Ativan this morning after the event per documentation. LFTs normal. Impressions: Seizure like activity esophageal impaction, s/p removal of large meat impaction, esophageal stricture as well as ulceration aspiration PNA Plan: -CT head w/o contrast if patient cooperates -EEG if patient cooperates -Labs reviewed. Ammonia level -Increase Depakote to 750 mg BID. S/E discussed -On Lorazepam at baseline. -Patient should be compliant with AEDs -Avoid medications like Wellbutrin, Tramadol , antibiotics like Meropenem/Cefepime which can lower seizure threshold -Seizure precautions -Patient should not drive for 6 months and would need clearance from outpatient neurologist prior to driving. -Case d/w mother and father at bedside, all questions were answered. -GI/DVT prophylaxis -PT/OT/ST -Fall precautions -Further medical management per medical team -Case discussed with hospitalist medical team -Follow up with Neurology in 4-6 weeks as outpatient -Please call with questions if any. -Thank you for allowing us to participate in patients care and management. -All questions were answered -Will follow pending neurological test results peripherally when done and follow up patient as needed based on the test results. Please call with questions if any in the interim. This note has been generated using [employer] dictation software. It may contain incorrect words, punctuation's and spellings that were not noted in the review of the note prior to signing. Problem List/Past Medical History Ongoing Autism Bipolar disorder H/O scoliosis History of psychosis Mental deficiency Historical History of MRSA infection Procedure/Surgical History None Medications Inpatient acetaminophen, 650 mg= 2 tab(s), Oral, q6hWA, PRN Depakote ER, 500 mg= 1 tab(s), Oral, BID LORazepam, 2 mg= 1 tab(s), Oral, TID melatonin, 3 mg= 1 tab(s), Oral, qHS, PRN melatonin, 3 mg= 1 tab(s), Oral, qHS, PRN ondansetron, 4 mg= 1 tab(s), Oral, q6h, PRN Protonix, 40 mg= 1 tab(s), Oral, BIDAC Zofran ODT, 4 mg= 1 tab(s), Oral, q6h, PRN Home divalproex sodium 500 mg oral tablet, extended release, 500 mg= 1 tab(s), Oral, BID LORazepam 1 mg oral tablet, 2 mg= 2 tab(s), Oral, TID montelukast 10 mg oral tablet, 10 mg= 1 tab(s), Oral, qDay traZODone 150 mg oral tablet, 150 mg= 1 tab(s), Oral, qHS Vitamin D3 50 mcg (2000 intl units) oral capsule, 50 mcg= 1 cap(s), Oral, Daily Allergies NKA Social History Smoking Status - 03/24/2018 Never smoker Alcohol - Denies Alcohol Use, 09/15/2017 Use: Never., 08/07/2019 Substance Abuse - Denies Substance Abuse, 09/15/2017 Use: Never., 07/15/2021 Tobacco - Denies Tobacco Use, 07/02/2018 Nicotine Use: Never (less than 100 in lifetime)., 08/07/2019 Immunizations SARS-CoV-2 mRNA (tozinameran) vaccine: 0.3 unknown unit (07/13/21) SARS-CoV-2 mRNA (tozinameran) vaccine: 0.3 unknown unit (08/22/20) SARS-CoV-2 mRNA (tozinameran) vaccine: 0.3 unknown unit (08/01/20) tetanus/diphth/pertuss (Tdap) adult/adol: 0.5 mL (07/03/22) Digitally Signed by DORITA CROWDER MD on 01/10/2023 01:59 PM [facility] 01-10-2023 Gastroenterology Progress note Date of Service 01/10/2023 Subjective Patient is seen and examined sitting up comfortably in bed. No significant events overnight. She is alert but slightly less cooperative today. Discussed with RN, and does appear patient has been tolerating her full liquid diet with assistance. She was able to eat all of her ice cream and some of her cream of wheat this morning. Objective Vitals and Measurements T: 37.2 C (Oral) TMIN: 36.6 C (Oral) TMAX: 37.2 C (Oral) HR: 62 RR: 18 BP: 96/62 SpO2: 95% Intake and Output 7AM Yesterday to 7AM Today Intake and Output (Last 24 hours) Intake Oral Intake 360.00 Supplement Intake 118.00 Output Stool Count 2.00 Diaper Count 4.00 Total Summary Total Intake 478.00 Total Output 0.00 Fluid Balance 478.00 Physical Exam General: Awake and alert and in no apparent distress. Calm and cooperative. HEENT: Mucous membranes moist and pink. Sclerae anicteric. PERRLA. Neuro: Awake, alert and oriented to self. Cooperative with care. Follows simple commands and answers a few simple questions. Speech is clear to a few simple words. Heart: Regular rate and rhythm. S1-S2 are present. Lungs: Chest rise symmetrical. Respirations unlabored. Clear to auscultation bilaterally. Abdomen: Soft and nontender. Nondistended. No guarding or rigidity. Bowel sounds 4 quadrants. No palpated splenomegaly or hepatomegaly. Skin: Warm and dry. No pallor or diaphoresis. No jaundice. Weight Dosing Weight: 57.1 kg (01/05/23) Dosing Weight: 57.1 kg (01/04/23) Medications Medications (6) Active Scheduled: (1) pantoprazole 40 mg EC tablet 40 mg 1 tab(s), Oral, BIDAC Continuous: (0) PRN: (5) acetaminophen 325 mg Tablet 650 mg 2 tab(s), Oral, q6hWA melatonin 3 mg tablet 3 mg 1 tab(s), Oral, qHS melatonin 3 mg tablet 3 mg 1 tab(s), Oral, qHS ondansetron 4 mg DIS tablet 4 mg 1 tab(s), Oral, q6h ondansetron 4 mg tablet 4 mg 1 tab(s), Oral, q6h Lab Results 01/10 03:44 Glucose Level: 97 Sodium Level: 146 H Potassium Level: 4.1 BUN: 15.0 Creatinine Lvl (s): 0.59 01/09 06:59 WBC: 6.8 Hgb: 12.8 Hct: 37.2 Platelet: 177 Glucose Level: 86 Sodium Level: 145 Potassium Level: 3.4 L BUN: 14.0 Creatinine Lvl (s): 0.50 EKG No qualifying data available. Assessment/Plan We were initially consulted to see this patient for an esophageal food bolus and underwent EGD 01/05/2023 with successful removal of a large meat impaction with the help of ENT as this was very proximal in the esophagus. An esophageal stricture as well as ulceration was noted related to this bolus. This was followed by refusal/resistance to participating in swallowing likely behavioral in nature due to fear of eating from recent event as well as pain from ulceration. As previously mentioned, she may have some mild oropharyngeal dysphagia at baseline but was tolerating a diet prior to this admission. This was likely not an appropriate diet and appears she has now been tolerating some full liquids with assistance. Recommend patient to continue working with speech therapy. No plan for a PEG placement at this time. There is a high chance of her pulling this out as well as it appears she is done the same with her IVs. We will continue her IV Protonix twice daily. We will follow. Digitally Signed by MICHELINE TANNER PA-C on 01/10/2023 09:20 AM [facility] 01-10-2023 Gastroenterology Progress note Date of Service 01/10/2023 Subjective Patient is seen and examined sitting up comfortably in bed. No significant events overnight. She is alert but slightly less cooperative today. Discussed with RN, and does appear patient has been tolerating her full liquid diet with assistance. She was able to eat all of her ice cream and some of her cream of wheat this morning. Objective Vitals and Measurements T: 37.2 C (Oral) TMIN: 36.6 C (Oral) TMAX: 37.2 C (Oral) HR: 62 RR: 18 BP: 96/62 SpO2: 95% Intake and Output 7AM Yesterday to 7AM Today Intake and Output (Last 24 hours) Intake Oral Intake 360.00 Supplement Intake 118.00 Output Stool Count 2.00 Diaper Count 4.00 Total Summary Total Intake 478.00 Total Output 0.00 Fluid Balance 478.00 Physical Exam General: Awake and alert and in no apparent distress. Calm and cooperative. HEENT: Mucous membranes moist and pink. Sclerae anicteric. PERRLA. Neuro: Awake, alert and oriented to self. Cooperative with care. Follows simple commands and answers a few simple questions. Speech is clear to a few simple words. Heart: Regular rate and rhythm. S1-S2 are present. Lungs: Chest rise symmetrical. Respirations unlabored. Clear to auscultation bilaterally. Abdomen: Soft and nontender. Nondistended. No guarding or rigidity. Bowel sounds 4 quadrants. No palpated splenomegaly or hepatomegaly. Skin: Warm and dry. No pallor or diaphoresis. No jaundice. Weight Dosing Weight: 57.1 kg (01/05/23) Dosing Weight: 57.1 kg (01/04/23) Medications Medications (6) Active Scheduled: (1) pantoprazole 40 mg EC tablet 40 mg 1 tab(s), Oral, BIDAC Continuous: (0) PRN: (5) acetaminophen 325 mg Tablet 650 mg 2 tab(s), Oral, q6hWA melatonin 3 mg tablet 3 mg 1 tab(s), Oral, qHS melatonin 3 mg tablet 3 mg 1 tab(s), Oral, qHS ondansetron 4 mg DIS tablet 4 mg 1 tab(s), Oral, q6h ondansetron 4 mg tablet 4 mg 1 tab(s), Oral, q6h Lab Results 01/10 03:44 Glucose Level: 97 Sodium Level: 146 H Potassium Level: 4.1 BUN: 15.0 Creatinine Lvl (s): 0.59 01/09 06:59 WBC: 6.8 Hgb: 12.8 Hct: 37.2 Platelet: 177 Glucose Level: 86 Sodium Level: 145 Potassium Level: 3.4 L BUN: 14.0 Creatinine Lvl (s): 0.50 EKG No qualifying data available. Assessment/Plan We were initially consulted to see this patient for an esophageal food bolus and underwent EGD 01/05/2023 with successful removal of a large meat impaction with the help of ENT as this was very proximal in the esophagus. An esophageal stricture as well as ulceration was noted related to this bolus. This was followed by refusal/resistance to participating in swallowing likely behavioral in nature due to fear of eating from recent event as well as pain from ulceration. As previously mentioned, she may have some mild oropharyngeal dysphagia at baseline but was tolerating a diet prior to this admission. This was likely not an appropriate diet and appears she has now been tolerating some full liquids with assistance. Recommend patient to continue working with speech therapy. No plan for a PEG placement at this time. There is a high chance of her pulling this out as well as it appears she is done the same with her IVs. We will continue her IV Protonix twice daily. We will follow. Digitally Signed by MICHELINE TANNER PA-C on 01/10/2023 09:20 AM [facility] 01-10-2023 Gastroenterology Progress note Date of Service 01/10/2023 Subjective Patient is seen and examined sitting up comfortably in bed. No significant events overnight. She is alert but slightly less cooperative today. Discussed with RN, and does appear patient has been tolerating her full liquid diet with assistance. She was able to eat all of her ice cream and some of her cream of wheat this morning. Objective Vitals and Measurements T: 37.2 C (Oral) TMIN: 36.6 C (Oral) TMAX: 37.2 C (Oral) HR: 62 RR: 18 BP: 96/62 SpO2: 95% Intake and Output 7AM Yesterday to 7AM Today Intake and Output (Last 24 hours) Intake Oral Intake 360.00 Supplement Intake 118.00 Output Stool Count 2.00 Diaper Count 4.00 Total Summary Total Intake 478.00 Total Output 0.00 Fluid Balance 478.00 Physical Exam General: Awake and alert and in no apparent distress. Calm and cooperative. HEENT: Mucous membranes moist and pink. Sclerae anicteric. PERRLA. Neuro: Awake, alert and oriented to self. Cooperative with care. Follows simple commands and answers a few simple questions. Speech is clear to a few simple words. Heart: Regular rate and rhythm. S1-S2 are present. Lungs: Chest rise symmetrical. Respirations unlabored. Clear to auscultation bilaterally. Abdomen: Soft and nontender. Nondistended. No guarding or rigidity. Bowel sounds 4 quadrants. No palpated splenomegaly or hepatomegaly. Skin: Warm and dry. No pallor or diaphoresis. No jaundice. Weight Dosing Weight: 57.1 kg (01/05/23) Dosing Weight: 57.1 kg (01/04/23) Medications Medications (6) Active Scheduled: (1) pantoprazole 40 mg EC tablet 40 mg 1 tab(s), Oral, BIDAC Continuous: (0) PRN: (5) acetaminophen 325 mg Tablet 650 mg 2 tab(s), Oral, q6hWA melatonin 3 mg tablet 3 mg 1 tab(s), Oral, qHS melatonin 3 mg tablet 3 mg 1 tab(s), Oral, qHS ondansetron 4 mg DIS tablet 4 mg 1 tab(s), Oral, q6h ondansetron 4 mg tablet 4 mg 1 tab(s), Oral, q6h Lab Results 01/10 03:44 Glucose Level: 97 Sodium Level: 146 H Potassium Level: 4.1 BUN: 15.0 Creatinine Lvl (s): 0.59 01/09 06:59 WBC: 6.8 Hgb: 12.8 Hct: 37.2 Platelet: 177 Glucose Level: 86 Sodium Level: 145 Potassium Level: 3.4 L BUN: 14.0 Creatinine Lvl (s): 0.50 EKG No qualifying data available. Assessment/Plan We were initially consulted to see this patient for an esophageal food bolus and underwent EGD 01/05/2023 with successful removal of a large meat impaction with the help of ENT as this was very proximal in the esophagus. An esophageal stricture as well as ulceration was noted related to this bolus. This was followed by refusal/resistance to participating in swallowing likely behavioral in nature due to fear of eating from recent event as well as pain from ulceration. As previously mentioned, she may have some mild oropharyngeal dysphagia at baseline but was tolerating a diet prior to this admission. This was likely not an appropriate diet and appears she has now been tolerating some full liquids with assistance. Recommend patient to continue working with speech therapy. No plan for a PEG placement at this time. There is a high chance of her pulling this out as well as it appears she is done the same with her IVs. We will continue her IV Protonix twice daily. We will follow. Digitally Signed by MICHELINE TANNER PA-C on 01/10/2023 09:20 AM [facility] 01-09-2023 Nurse Progress note Patient ate lunch without difficultly swallowing, soup, pudding, ice cream. She repeatedly told me she was not hungry. She would not answer when I asked her if she liked a certain food. When given yogurt she allowed it to roll out of her mouth. She also did not appear to like soda. She allowed me to feed her until I asked if she would take medication. After which she laughed and allowed any food given to roll out of her mouth. Digitally Signed by TENA Vasques on 01/09/2023 01:23 PM [facility] 01-08-2023 Gastroenterology Progress note Date of Service 01/08/2023 Subjective Patient is seen and examined sitting upright in bed. She is unaccompanied. She is able to answer simple yes and no questions. She denies pain in her throat or chest. No abdominal discomfort, nausea, or recent vomiting. Remains n.p.o. but does express that she would like to eat. Objective Vitals and Measurements T: 36.9 C (Axillary) TMIN: 36.8 C (Oral) TMAX: 37.4 C (Oral) HR: 78 RR: 18 BP: 118/46 SpO2: 98% Intake and Output 7AM Yesterday to 7AM Today Intake and Output (Last 24 hours) Intake Output Urinary Catheter Output: 550.00 Stool Count 1.00 Total Summary Total Intake 0.00 Total Output 550.00 Fluid Balance -550.00 Physical Exam General: Awake and alert and in no apparent distress. Calm and cooperative. HEENT: Mucous membranes moist and pink. Sclerae anicteric. PERRLA. Neuro: Awake, alert and oriented to self. Cooperative with care. Follows simple commands and answers a few simple questions. Speech is clear to a few simple words. Heart: Regular rate and rhythm. S1-S2 are present. Lungs: Chest rise symmetrical. Respirations unlabored. Clear to auscultation bilaterally. Abdomen: Soft and nontender. Nondistended. No guarding or rigidity. Bowel sounds 4 quadrants. No palpated splenomegaly or hepatomegaly. Skin: Warm and dry. No pallor or diaphoresis. No jaundice. Weight Dosing Weight: 57.1 kg (01/05/23) Dosing Weight: 57.1 kg (01/04/23) Medications Medications (10) Active Scheduled: (3) azithromycin IV 500 mg 5 mL, IV Piggyback, qDay cefTRIAXone IVP syringe 2 gram(s) 20 mL, IV Push (INT), qDay pantoprazole 40 mg VIAL 40 mg, IV Push, BID Continuous: (1) Lactated Ringers 1,000 mL 1,000 mL, Intravenous, 100 mL/hr PRN: (6) acetaminophen 325 mg Tablet 650 mg 2 tab(s), Oral, q6hWA LORAZEPam 2 mg/mL 1 mL vial 1 mg 0.5 mL, IV Push, q6hr melatonin 3 mg tablet 3 mg 1 tab(s), Oral, qHS melatonin 3 mg tablet 3 mg 1 tab(s), Oral, qHS ondansetron 2 mg/ 1 mL 2 mL INJ 4 mg 2 mL, IV Push, q4h ondansetron 4 mg DIS tablet 4 mg 1 tab(s), Oral, q6h Lab Results 01/08 06:08 WBC: 9.8 Hgb: 13.8 Hct: 41.1 Platelet: 176 Neutrophil %: 65.4 Glucose Level: 86 Sodium Level: 143 Potassium Level: 3.6 BUN: 15.0 Creatinine Lvl (s): 0.53 01/07 05:31 WBC: 8.6 Hgb: 13.5 Hct: 39.8 Platelet: 118 L Neutrophil %: 67.9 Glucose Level: 99 Sodium Level: 140 Potassium Level: 3.8 BUN: 15.0 Creatinine Lvl (s): 0.60 Imaging Results and Diagnostics XR Swallowing Function Result Date: January 07, 2023 Verified By: CLINICAL STATEMENT: IMPRESSION: XR Chest 2 Views Result Date: January 06, 2023 Verified By: SEFERINO MCKEON MD CLINICAL STATEMENT: IMPRESSION: Limited examination, otherwise unremarkable. CT Abd/Pelvis w/ IV Contrast Only Result Date: January 05, 2023 Verified By: ALDO ARMANDO MD CLINICAL STATEMENT: IMPRESSION: No acute findings. I have personally reviewed the images of this examination and agree with theresident's findings and interpretation. CT Thorax w/ Contrast Result Date: January 05, 2023 Verified By: ALDO ARMANDO MD CLINICAL STATEMENT: IMPRESSION: Irregular appearance of the lower cervical/upper thoracic esophagus, findingsare indeterminate, a soft g would be useful in further evaluation, endoscopycould also be considered for direct visualization. Differentialconsiderations include esophageal diverticulum, however other etiologiesincluding an underlying mass cannot entirely be excluded on these images. I have personally reviewed the images of this examination and agree with theresident's findings and interpretation. XR Chest 1 View Result Date: January 04, 2023 Verified By: JAVIER CATES MD CLINICAL STATEMENT: IMPRESSION: Suggested mild bronchial wall thickening which could reflect acute or chronicbronchitis. No focal consolidation Assessment/Plan Vomiting We were initially consulted to see this patient for an esophageal food bolus and underwent EGD 01/05/2023 with successful removal of a large meat impaction with the help of ENT as this was very proximal in the esophagus. An esophageal stricture as well as ulceration was noted related to this bolus. Patient may have been suffering from some chronic oropharyngeal dysphagia at baseline, although was otherwise tolerating a diet prior to this admission. This was likely not an appropriate diet. Feel her acute refusal/resistance to participate in swallowing is behavioral in nature, possibly related to ongoing discomfort and inflammation. Appears she has had additional ER visits and hospitalizations for the refusal of food in the past. She is currently n.p.o. but receiving IV Protonix twice daily. She has a significant psychiatric history, although does seem to be more conversant and able to answer simple yes/no questions. Would continue to work with speech therapy, particularly with the goal to continue oral feedings for pleasure purposes. She remains on antibiotics for acute bacterial bronchitis versus pneumonia possibly related to acute aspiration. Initial leukocytosis has resolved. Remains on 3 L. No urgent plan for PEG placement at this time which was relayed to primary team yesterday. We will continue to follow. Digitally Signed by MICHELINE TANNER PA-C on 01/08/2023 09:23 AM [facility] 01-08-2023 Gastroenterology Progress note Date of Service 01/08/2023 Subjective Patient is seen and examined sitting upright in bed. She is unaccompanied. She is able to answer simple yes and no questions. She denies pain in her throat or chest. No abdominal discomfort, nausea, or recent vomiting. Remains n.p.o. but does express that she would like to eat. Objective Vitals and Measurements T: 36.9 C (Axillary) TMIN: 36.8 C (Oral) TMAX: 37.4 C (Oral) HR: 78 RR: 18 BP: 118/46 SpO2: 98% Intake and Output 7AM Yesterday to 7AM Today Intake and Output (Last 24 hours) Intake Output Urinary Catheter Output: 550.00 Stool Count 1.00 Total Summary Total Intake 0.00 Total Output 550.00 Fluid Balance -550.00 Physical Exam General: Awake and alert and in no apparent distress. Calm and cooperative. HEENT: Mucous membranes moist and pink. Sclerae anicteric. PERRLA. Neuro: Awake, alert and oriented to self. Cooperative with care. Follows simple commands and answers a few simple questions. Speech is clear to a few simple words. Heart: Regular rate and rhythm. S1-S2 are present. Lungs: Chest rise symmetrical. Respirations unlabored. Clear to auscultation bilaterally. Abdomen: Soft and nontender. Nondistended. No guarding or rigidity. Bowel sounds 4 quadrants. No palpated splenomegaly or hepatomegaly. Skin: Warm and dry. No pallor or diaphoresis. No jaundice. Weight Dosing Weight: 57.1 kg (01/05/23) Dosing Weight: 57.1 kg (01/04/23) Medications Medications (10) Active Scheduled: (3) azithromycin IV 500 mg 5 mL, IV Piggyback, qDay cefTRIAXone IVP syringe 2 gram(s) 20 mL, IV Push (INT), qDay pantoprazole 40 mg VIAL 40 mg, IV Push, BID Continuous: (1) Lactated Ringers 1,000 mL 1,000 mL, Intravenous, 100 mL/hr PRN: (6) acetaminophen 325 mg Tablet 650 mg 2 tab(s), Oral, q6hWA LORAZEPam 2 mg/mL 1 mL vial 1 mg 0.5 mL, IV Push, q6hr melatonin 3 mg tablet 3 mg 1 tab(s), Oral, qHS melatonin 3 mg tablet 3 mg 1 tab(s), Oral, qHS ondansetron 2 mg/ 1 mL 2 mL INJ 4 mg 2 mL, IV Push, q4h ondansetron 4 mg DIS tablet 4 mg 1 tab(s), Oral, q6h Lab Results 01/08 06:08 WBC: 9.8 Hgb: 13.8 Hct: 41.1 Platelet: 176 Neutrophil %: 65.4 Glucose Level: 86 Sodium Level: 143 Potassium Level: 3.6 BUN: 15.0 Creatinine Lvl (s): 0.53 01/07 05:31 WBC: 8.6 Hgb: 13.5 Hct: 39.8 Platelet: 118 L Neutrophil %: 67.9 Glucose Level: 99 Sodium Level: 140 Potassium Level: 3.8 BUN: 15.0 Creatinine Lvl (s): 0.60 Imaging Results and Diagnostics XR Swallowing Function Result Date: January 07, 2023 Verified By: CLINICAL STATEMENT: IMPRESSION: XR Chest 2 Views Result Date: January 06, 2023 Verified By: SEFERINO MCKEON MD CLINICAL STATEMENT: IMPRESSION: Limited examination, otherwise unremarkable. CT Abd/Pelvis w/ IV Contrast Only Result Date: January 05, 2023 Verified By: ALDO ARMANDO MD CLINICAL STATEMENT: IMPRESSION: No acute findings. I have personally reviewed the images of this examination and agree with theresident's findings and interpretation. CT Thorax w/ Contrast Result Date: January 05, 2023 Verified By: ALDO ARMANDO MD CLINICAL STATEMENT: IMPRESSION: Irregular appearance of the lower cervical/upper thoracic esophagus, findingsare indeterminate, a soft g would be useful in further evaluation, endoscopycould also be considered for direct visualization. Differentialconsiderations include esophageal diverticulum, however other etiologiesincluding an underlying mass cannot entirely be excluded on these images. I have personally reviewed the images of this examination and agree with theresident's findings and interpretation. XR Chest 1 View Result Date: January 04, 2023 Verified By: JAVIER CATES MD CLINICAL STATEMENT: IMPRESSION: Suggested mild bronchial wall thickening which could reflect acute or chronicbronchitis. No focal consolidation Assessment/Plan Vomiting We were initially consulted to see this patient for an esophageal food bolus and underwent EGD 01/05/2023 with successful removal of a large meat impaction with the help of ENT as this was very proximal in the esophagus. An esophageal stricture as well as ulceration was noted related to this bolus. Patient may have been suffering from some chronic oropharyngeal dysphagia at baseline, although was otherwise tolerating a diet prior to this admission. This was likely not an appropriate diet. Feel her acute refusal/resistance to participate in swallowing is behavioral in nature, possibly related to ongoing discomfort and inflammation. Appears she has had additional ER visits and hospitalizations for the refusal of food in the past. She is currently n.p.o. but receiving IV Protonix twice daily. She has a significant psychiatric history, although does seem to be more conversant and able to answer simple yes/no questions. Would continue to work with speech therapy, particularly with the goal to continue oral feedings for pleasure purposes. She remains on antibiotics for acute bacterial bronchitis versus pneumonia possibly related to acute aspiration. Initial leukocytosis has resolved. Remains on 3 L. No urgent plan for PEG placement at this time which was relayed to primary team yesterday. We will continue to follow. Digitally Signed by MICHELINE TANNER PA-C on 01/08/2023 09:23 AM [facility] 01-07-2023 Gastroenterology Progress note Date of Service 01/07/2023 Chief Complaint I want food. Subjective Patient seen and examined sitting upright in bed. No significant events overnight or complaints offered. Overall she does appear significantly in proved today, she is more awake, interactive and verbal. She denies abdominal pain, nausea or vomiting. States that she wants food. Discussed MBS results with charge nurse as well as hospitalist ANDREW Hollins. Objective Vitals and Measurements T: 37.4 C (Oral) TMIN: 36.4 C (Axillary) TMAX: 37.9 C (Oral) HR: 71 RR: 18 BP: 110/74 SpO2: 93% Intake and Output 7AM Yesterday to 7AM Today Intake and Output (Last 24 hours) Intake Output Stool Count 2.00 Total Summary Total Intake 0.00 Total Output 0.00 Fluid Balance 0.00 Physical Exam General Appearance: Patient is awake and alert, but in no acute distress. Calm. Cooperative. HEENT: Head is normocephalic and atraumatic. Conjunctivae are clear without exudates or hemorrhage sclera is nonicteric. Nasal mucosa is pink and moist. Oral mucosa is pink and moist. The pharynx is normal in appearance. Well. Trachea midline. Cardiac: Heart rate and rhythm are normal. S1 and S2 are heard and are of normal intensity. Lungs: Lung sounds are diminished. On O2 at 3 L/min. No evidence of acute respiratory distress Abdomen: Abdomen is soft, symmetric and nontender without distention. There are no visible lesions or scars. Umbilicus is midline without herniation. Bowel sounds are present and active in all 4 quadrants. No masses, hepatomegaly or splenomegaly are noted. Extremities: No edema noted. Pulses palpable. Neurological: The patient is awake, alert and oriented to self. Cooperative with care. Follows simple commands and answers a few simple questions. Speech is clear to a few simple words. Skin: Skin is pale pink. Weight Dosing Weight: 57.1 kg (01/05/23) Dosing Weight: 57.1 kg (01/04/23) Medications Medications (10) Active Scheduled: (3) azithromycin IV 500 mg 5 mL, IV Piggyback, qDay cefTRIAXone IVP syringe 2 gram(s) 20 mL, IV Push (INT), qDay pantoprazole 40 mg VIAL 40 mg, IV Push, BID Continuous: (1) Lactated Ringers 1,000 mL 1,000 mL, Intravenous, 100 mL/hr PRN: (6) acetaminophen 325 mg Tablet 650 mg 2 tab(s), Oral, q6hWA LORAZEPam 2 mg/mL 1 mL vial 1 mg 0.5 mL, IV Push, q6hr melatonin 3 mg tablet 3 mg 1 tab(s), Oral, qHS melatonin 3 mg tablet 3 mg 1 tab(s), Oral, qHS ondansetron 2 mg/ 1 mL 2 mL INJ 4 mg 2 mL, IV Push, q4h ondansetron 4 mg DIS tablet 4 mg 1 tab(s), Oral, q6h Lab Results 01/07 05:31 WBC: 8.6 Hgb: 13.5 Hct: 39.8 Platelet: 118 L Neutrophil %: 67.9 Glucose Level: 99 Sodium Level: 140 Potassium Level: 3.8 BUN: 15.0 Creatinine Lvl (s): 0.60 01/06 08:43 WBC: 12.7 H Hgb: 13.3 Hct: 39.8 Platelet: 108 L Neutrophil %: 76.7 H Glucose Level: 106 Sodium Level: 140 Potassium Level: 3.9 BUN: 13.0 Creatinine Lvl (s): 0.57 Imaging Results and Diagnostics XR Swallowing Function Result Date: January 07, 2023 Verified By: CLINICAL STATEMENT: IMPRESSION: XR Chest 2 Views Result Date: January 06, 2023 Verified By: SEFERINO MCKEON MD CLINICAL STATEMENT: IMPRESSION: Limited examination, otherwise unremarkable. CT Abd/Pelvis w/ IV Contrast Only Result Date: January 05, 2023 Verified By: ALDO ARMANDO MD CLINICAL STATEMENT: IMPRESSION: No acute findings. I have personally reviewed the images of this examination and agree with theresident's findings and interpretation. CT Thorax w/ Contrast Result Date: January 05, 2023 Verified By: ALDO ARMANDO MD CLINICAL STATEMENT: IMPRESSION: Irregular appearance of the lower cervical/upper thoracic esophagus, findingsare indeterminate, a soft g would be useful in further evaluation, endoscopycould also be considered for direct visualization. Differentialconsiderations include esophageal diverticulum, however other etiologiesincluding an underlying mass cannot entirely be excluded on these images. I have personally reviewed the images of this examination and agree with theresident's findings and interpretation. XR Chest 1 View Result Date: January 04, 2023 Verified By: JAVIER CATES MD CLINICAL STATEMENT: IMPRESSION: Suggested mild bronchial wall thickening which could reflect acute or chronicbronchitis. No focal consolidation EKG No qualifying data available. Assessment/Plan Vomiting Problem list: 1. Esophageal food bolus/meat impaction -accompanied by a sudden onset of inability tolerate oral intake and regurgitation of solids, liquids, pills and oral secretions/mucus 2. Abnormal CT thorax 3. Leukocytosis improving 4. Hypoxia 5. Chronic thrombocytopenia We are following the patient for an esophageal food bolus/meat impaction that was accompanied by a sudden onset of inability to tolerate oral intake and regurgitation of solids, liquids and pills with decreased ability to manage oral secretions. EGD was done to further evaluate this and notable for a large, solid food bolus in the proximal esophagus, pretty much at the level of the larynx. Case and intervention was complex and previously described but eventually food bolus was removed. After removal of food bolus and esophageal stricture and small ulceration was noted in the upper esophagus, likely related to large food bolus. Postprocedure patient was started on twice daily PPI therapy. Suspect that recurrent nausea, vomiting and inability tolerate oral secretions from a food bolus caused some aspiration pneumonia. Patient was noted to be febrile and had an abnormal chest x-ray along with leukocytosis which is improving. She remains on antibiotics of azithromycin and ceftriaxone. Additionally possible the patient may have some chronic oropharyngeal dysphagia at baseline. We did ask speech therapy to evaluate her and she underwent modified barium swallow today. Per report patient made no attempt to initiate swallow. They recommend that she remain n.p.o. and to consider long-term alternative to nutrition and education needs. Plan: Certainly possible patient may have some chronic oropharyngeal dysphagia at baseline, however, prior to hospitalization she was tolerating oral intake without difficulty. It is from possible she may have some behavioral issues contributing to her refusal to participate in modified barium swallow. Review of records in [facility] indicate that she has had additional ER visits and hospitalizations for the refusal of food. I would not recommend placing a PEG tube in this placement for a number of reasons - first and foremost she was tolerating a diet prior to hospitalization and per her shelter staff she gets significant enjoyment out of food. Her reluctance to participate in swallow evaluation also may due to behavioral issues as above as well as ongoing discomfort and inflammation/ulceration from food bolus. Would like speech therapy to continue to work with the patient and to reevaluate her. She would certainly not be appropriate for a regular diet but would likely be able to tolerate more modified diet of softer foods. Continue with twice daily IV PPI therapy. We will continue to follow. Call with questions or concerns. Refer to Dr. Culver's addendum to my note for further recommendations. Digitally Signed by MATT HERNANDEZ on 01/07/2023 12:23 PM [facility] 01-07-2023 Gastroenterology Progress note Date of Service 01/07/2023 Chief Complaint I want food. Subjective Patient seen and examined sitting upright in bed. No significant events overnight or complaints offered. Overall she does appear significantly in proved today, she is more awake, interactive and verbal. She denies abdominal pain, nausea or vomiting. States that she wants food. Discussed MBS results with charge nurse as well as hospitalist ANDREW Hollins. Objective Vitals and Measurements T: 37.4 C (Oral) TMIN: 36.4 C (Axillary) TMAX: 37.9 C (Oral) HR: 71 RR: 18 BP: 110/74 SpO2: 93% Intake and Output 7AM Yesterday to 7AM Today Intake and Output (Last 24 hours) Intake Output Stool Count 2.00 Total Summary Total Intake 0.00 Total Output 0.00 Fluid Balance 0.00 Physical Exam General Appearance: Patient is awake and alert, but in no acute distress. Calm. Cooperative. HEENT: Head is normocephalic and atraumatic. Conjunctivae are clear without exudates or hemorrhage sclera is nonicteric. Nasal mucosa is pink and moist. Oral mucosa is pink and moist. The pharynx is normal in appearance. Well. Trachea midline. Cardiac: Heart rate and rhythm are normal. S1 and S2 are heard and are of normal intensity. Lungs: Lung sounds are diminished. On O2 at 3 L/min. No evidence of acute respiratory distress Abdomen: Abdomen is soft, symmetric and nontender without distention. There are no visible lesions or scars. Umbilicus is midline without herniation. Bowel sounds are present and active in all 4 quadrants. No masses, hepatomegaly or splenomegaly are noted. Extremities: No edema noted. Pulses palpable. Neurological: The patient is awake, alert and oriented to self. Cooperative with care. Follows simple commands and answers a few simple questions. Speech is clear to a few simple words. Skin: Skin is pale pink. Weight Dosing Weight: 57.1 kg (01/05/23) Dosing Weight: 57.1 kg (01/04/23) Medications Medications (10) Active Scheduled: (3) azithromycin IV 500 mg 5 mL, IV Piggyback, qDay cefTRIAXone IVP syringe 2 gram(s) 20 mL, IV Push (INT), qDay pantoprazole 40 mg VIAL 40 mg, IV Push, BID Continuous: (1) Lactated Ringers 1,000 mL 1,000 mL, Intravenous, 100 mL/hr PRN: (6) acetaminophen 325 mg Tablet 650 mg 2 tab(s), Oral, q6hWA LORAZEPam 2 mg/mL 1 mL vial 1 mg 0.5 mL, IV Push, q6hr melatonin 3 mg tablet 3 mg 1 tab(s), Oral, qHS melatonin 3 mg tablet 3 mg 1 tab(s), Oral, qHS ondansetron 2 mg/ 1 mL 2 mL INJ 4 mg 2 mL, IV Push, q4h ondansetron 4 mg DIS tablet 4 mg 1 tab(s), Oral, q6h Lab Results 01/07 05:31 WBC: 8.6 Hgb: 13.5 Hct: 39.8 Platelet: 118 L Neutrophil %: 67.9 Glucose Level: 99 Sodium Level: 140 Potassium Level: 3.8 BUN: 15.0 Creatinine Lvl (s): 0.60 01/06 08:43 WBC: 12.7 H Hgb: 13.3 Hct: 39.8 Platelet: 108 L Neutrophil %: 76.7 H Glucose Level: 106 Sodium Level: 140 Potassium Level: 3.9 BUN: 13.0 Creatinine Lvl (s): 0.57 Imaging Results and Diagnostics XR Swallowing Function Result Date: January 07, 2023 Verified By: CLINICAL STATEMENT: IMPRESSION: XR Chest 2 Views Result Date: January 06, 2023 Verified By: SEFERINO MCKEON MD CLINICAL STATEMENT: IMPRESSION: Limited examination, otherwise unremarkable. CT Abd/Pelvis w/ IV Contrast Only Result Date: January 05, 2023 Verified By: ALDO ARMANDO MD CLINICAL STATEMENT: IMPRESSION: No acute findings. I have personally reviewed the images of this examination and agree with theresident's findings and interpretation. CT Thorax w/ Contrast Result Date: January 05, 2023 Verified By: ALDO ARMANDO MD CLINICAL STATEMENT: IMPRESSION: Irregular appearance of the lower cervical/upper thoracic esophagus, findingsare indeterminate, a soft g would be useful in further evaluation, endoscopycould also be considered for direct visualization. Differentialconsiderations include esophageal diverticulum, however other etiologiesincluding an underlying mass cannot entirely be excluded on these images. I have personally reviewed the images of this examination and agree with theresident's findings and interpretation. XR Chest 1 View Result Date: January 04, 2023 Verified By: JAVIER CATES MD CLINICAL STATEMENT: IMPRESSION: Suggested mild bronchial wall thickening which could reflect acute or chronicbronchitis. No focal consolidation EKG No qualifying data available. Assessment/Plan Vomiting Problem list: 1. Esophageal food bolus/meat impaction -accompanied by a sudden onset of inability tolerate oral intake and regurgitation of solids, liquids, pills and oral secretions/mucus 2. Abnormal CT thorax 3. Leukocytosis improving 4. Hypoxia 5. Chronic thrombocytopenia We are following the patient for an esophageal food bolus/meat impaction that was accompanied by a sudden onset of inability to tolerate oral intake and regurgitation of solids, liquids and pills with decreased ability to manage oral secretions. EGD was done to further evaluate this and notable for a large, solid food bolus in the proximal esophagus, pretty much at the level of the larynx. Case and intervention was complex and previously described but eventually food bolus was removed. After removal of food bolus and esophageal stricture and small ulceration was noted in the upper esophagus, likely related to large food bolus. Postprocedure patient was started on twice daily PPI therapy. Suspect that recurrent nausea, vomiting and inability tolerate oral secretions from a food bolus caused some aspiration pneumonia. Patient was noted to be febrile and had an abnormal chest x-ray along with leukocytosis which is improving. She remains on antibiotics of azithromycin and ceftriaxone. Additionally possible the patient may have some chronic oropharyngeal dysphagia at baseline. We did ask speech therapy to evaluate her and she underwent modified barium swallow today. Per report patient made no attempt to initiate swallow. They recommend that she remain n.p.o. and to consider long-term alternative to nutrition and education needs. Plan: Certainly possible patient may have some chronic oropharyngeal dysphagia at baseline, however, prior to hospitalization she was tolerating oral intake without difficulty. It is from possible she may have some behavioral issues contributing to her refusal to participate in modified barium swallow. Review of records in [facility] indicate that she has had additional ER visits and hospitalizations for the refusal of food. I would not recommend placing a PEG tube in this placement for a number of reasons - first and foremost she was tolerating a diet prior to hospitalization and per her shelter staff she gets significant enjoyment out of food. Her reluctance to participate in swallow evaluation also may due to behavioral issues as above as well as ongoing discomfort and inflammation/ulceration from food bolus. Would like speech therapy to continue to work with the patient and to reevaluate her. She would certainly not be appropriate for a regular diet but would likely be able to tolerate more modified diet of softer foods. Continue with twice daily IV PPI therapy. We will continue to follow. Call with questions or concerns. Refer to Dr. Culver's addendum to my note for further recommendations. Digitally Signed by MATT HERNANDEZ on 01/07/2023 12:23 PM [facility] 01-07-2023 Note ORIGINAL Images acquired, not reported on this accession number. [facility] 01-07-2023 Note ORIGINAL Images acquired, not reported on this accession number. [facility] 01-06-2023 Note ORIGINAL HISTORY: Cough COMPARISON: 2 days previously FINDINGS: The AP film is rotated, and there is motion on the lateral film. Otherwise, lungs are clear. Pulmonary vasculature is unremarkable in appearance. Cardiac silhouette is within normal size limits. IMPRESSION: Limited examination, otherwise unremarkable. Interpreted by: Seferino Mckeon MD Preliminary Report By: Seferino Mckeon MD Electronically signed By Seferino Mckeon MD Dictated Date: 01/06/2023 9:06:58 AM Prelim Date: 01/06/2023 9:07:46 AM Sign Date: 01/06/2023 9:07:46 AM Ordering Provider: PARI LARSEN [facility] 01-06-2023 Note ORIGINAL HISTORY: Cough COMPARISON: 2 days previously FINDINGS: The AP film is rotated, and there is motion on the lateral film. Otherwise, lungs are clear. Pulmonary vasculature is unremarkable in appearance. Cardiac silhouette is within normal size limits. IMPRESSION: Limited examination, otherwise unremarkable. Interpreted by: Seferino Mckeon MD Preliminary Report By: Seferino Mckeon MD Electronically signed By Seferino Mckeon MD Dictated Date: 01/06/2023 9:06:58 AM Prelim Date: 01/06/2023 9:07:46 AM Sign Date: 01/06/2023 9:07:46 AM Ordering Provider: [facility] 01-05-2023 History and physical note Date of Service 01/05/23 Chief Complaint Pt comes in with caregiver due to increased nausea and vomiting. Pt unable to keep food down today at home. History of Present Illness 47-year-old female with PMHx bipolar disorder with psychotic episodes, autism spectrum disorder, thrombocytopenia, MRDD presents to the ED for 1 day history of increased congestion and not eating. History obtained by patient, patient's caregiver ED physician, chart review. For the past 1 day, she has been spitting up food. Noted to have cough productive of purulent mucus. Increased activity, appears slightly more agitated than her baseline. Bowel movements have been regular. Patient complains of lower abdominal pain. She denies rashes or swelling. Endorses ongoing cough. In the emergency department she was tachycardic with rate 101. BP stable. O2 saturation 90 to 92% on room air. CBC shows WBC 17.6, platelets 126. Urinalysis is not concerning for infection. CMP shows metabolic acidosis with CO2 16. Chloride 115. Lipase normal at 24. CXR shows mild bronchial wall thickening suggestive of acute or chronic bronchitis. She was given Zofran, [address] abdomen pelvis ordered, pending. Review of Systems Pertinent review of systems are included in the HPI. All other systems were reviewed and are negative for acute changes from the patient's baseline. Physical Exam Vitals and Measurements T: 36.3 C (Temporal Artery) HR: 95 RR: 18 BP: 110/51 SpO2: 90% WT: 57.1 kg Weight Dosing Weight: 57.1 kg (01/04/23) GA: Oriented to the fact that she is in the hospital and her name. : No suprapubic TTP Abd: Soft nontender nondistended BS+ HEENT: oral mucosa moist. NCAT Pulmonary: Actively coughing on examination with yellow mucus on her shirt and on the bed. Crackles at the right lung base. MSK: no gross deformities Cardiovascular: RRR, no MRG. No lower extremity edema. Skin: warm and dry Neuro: Spontaneous equal movement of all extremities. No gross deficits. Psychiatric: The patient has a speech impediment which makes it difficult to understand. She is able to communicate her symptoms and participate somewhat in conversation. Somewhat fidgety with upper extremities. Following commands appropriately. No overt agitation or combativeness. Lab Results 01/05 00:27 WBC: 17.6 10^3/mcL High (01/04/23 23:11:00) RBC: 4.49 10^6/mcL (01/04/23:11:00) Hgb: 14.1 G/dL (01/04/23:11:00) Hct: 42.3 % (01/04/23:11:00) MCV: 94.1 fL (01/04/23:11:00) MCH: 31.4 pg (01/04/23:11:00) MCHC: 33.3 G/dL (01/04/23:11:00) RDW: 14.1 % (01/04/23 23:11:00) Platelet: 126 10^3/mcL Low (01/04/23 23:11:00) MPV: 8.5 fL (01/04/23 23:11:00) Monocyte Distribution Width: 18.19 (01/04/23 23:11:00) Neutrophil %: 81.8 % High (01/04/23 23:11:00) Lymphocyte %: 4.3 % Low (01/04/23 23:11:00) Monocyte %: 13.6 % High (01/04/23 23:11:00) Eosinophil %: 0.1 % (01/04/23 23:11:00) Basophil %: 0.2 % (01/04/23 23:11:00) Neutrophil, Absolute: 14.4 10^3/mcL High (01/04/23 23:11:00) Lymphocyte, Absolute: 0.8 10^3/mcL Low (01/04/23 23:11:00) Monocyte, Absolute: 2.4 10^3/mcL High (01/04/23 23:11:00) Eosinophil, Absolute: 0 10^3/mcL (01/04/23 23:11:00) Basophil, Absolute: 0 10^3/mcL (01/04/23 23:11:00) UA Specimen Type: Clean Catch (01/05/23 00:46:00) UA Color: Yellow (01/05/23 00:46:00) UA Appear: Clear (01/05/23 00:46:00) UA Spec Grav: 1.025 (01/05/23 00:46:00) UA Glucose: Negative. (01/05/23 00:46:00) UA Bili: Negative. (01/05/23 00:46:00) UA Ketones: 15 Abnormal (01/05/23 00:46:00) UA Blood: Negative. (01/05/23 00:46:00) UA pH: 8.0 (01/05/23 00:46:00) UA Protein: Trace (01/05/23 00:46:00) UA Urobilinogen: 2.0 Abnormal (01/05/23 00:46:00) UA Nitrite: Negative. (01/05/23 00:46:00) UA Leuk Est: Trace (01/05/23 00:46:00) UA RBC: 0-2 (01/05/23 00:46:00) UA WBC: 0-2 (01/05/23 00:46:00) UA Squam Epithelial: 0-2 (01/05/23 00:46:00) UA Mucous: 2+ (01/05/23 00:46:00) UA Amorphus: 1+ (01/05/23 00:46:00) UA Bacteria: Negative. (01/05/23 00:46:00) Glucose Level: 91 mg/dL (01/05/23 00:27:00) Sodium Level: 143 mEq/L (01/05/23 00:27:00) Potassium Level: 3.6 mEq/L (01/05/23 00:27:00) Chloride: 115 mEq/L High (01/05/23 00:27:00) CO2: 16 mEq/L Low (01/05/23 00:27:00) Electrolyte Balance: 12 mEq/L (01/05/23 00:27:00) BUN: 9 mg/dL (01/05/23 00:27:00) Creatinine Lvl (s): 0.48 mg/dL Low (01/05/23 00:27:00) BUN/Creatinine Ratio: 18.8 ratio (01/05/23 00:27:00) Calcium Lvl: 7.2 mg/dL Low (01/05/23 00:27:00) Total Protein: 5.3 G/dL Low (01/05/23 00:27:00) Albumin Level: 2.7 G/dL Low (01/05/23 00:27:00) Globulin: 2.6 G/dL (01/05/23 00:27:00) A/G Ratio: 1 ratio (01/05/23 00:27:00) Bili Total: 0.6 mg/dL (01/05/23 00:27:00) Alk Phos: 41 U/L (01/05/23 00:27:00) AST/SGOT: 28 U/L (01/05/23 00:27:00) ALT/SGPT: 18 U/L (01/05/23 00:27:00) GFR Non-: >60 (01/05/23 00:27:00) GFR : >60 (01/05/23 00:27:00) Lipase Level: 24 U/L (01/05/23 00:27:00) Adenovirus: Not Detected TORCH (01/04/23 19:28:00) Coronavirus HKU1 (Not COVID-19): Not Detected TORCH (01/04/23 19:28:00) Coronavirus NL63 (Not COVID-19): Not Detected TORCH (01/04/23 19:28:00) Coronavirus 229E (Not COVID-19): Not Detected TORCH (01/04/23 19:28:00) Coronavirus OC43 (Not COVID-19): Not Detected TORCH (01/04/23 19:28:00) SARS-CoV-2: Not Detected TORCH (01/04/23 19:28:00) Human Metapneumovirus: Not Detected TORCH (01/04/23 19:28:00) Influenza A: Not Detected TORCH (01/04/23 19:28:00) Influenza B: Not Detected TORCH (01/04/23 19:28:00) Parainfluenza 1: Not Detected TORCH (01/04/23:28:00) Parainfluenza 2: Not Detected TORCH (01/04/23:28:00) Parainfluenza 3: Not Detected TORCH (01/04/23:28:00) Parainfluenza 4: Not Detected TORCH (01/04/23:28:00) Rhinovirus/Enterovirus: Not Detected TORCH (01/04/23 19:28:00) Respiratory Syncytial Virus: Not Detected TORCH (01/04/23 19:28:00) Mycoplasma pneumoniae: Not Detected TORCH (01/04/23:28:00) Chlamydophila pneumoniae: Not Detected TORCH (01/04/23:28:00) Bordetella Pertussis: Not Detected TORCH (01/04/23:28:00) Bordetella Parapertussis: Not Detected TORCH (01/04/23:28:00) Imaging Results and Diagnostics XR Chest 1 View Result Date: January 04, 2023 Verified By: JAVIER CATES MD CLINICAL STATEMENT: IMPRESSION: Suggested mild bronchial wall thickening which could reflect acute or chronicbronchitis. No focal consolidation Assessment/Plan Vomiting. Patient with 1 day history of complete inability to tolerate p.o. liquids and solids. Per ED physician, it appeared as though she was regurgitating and presentation was concerning for esophageal impaction. CT chest abdomen pelvis was ordered and is pending. Considering her metabolic acidosis, concern for infection, and inability to tolerate liquids - she will be observed in the hospital to prevent dehydration and complications of inability to tolerate her medications. GI consult for depression treatment recommendations regarding regurgitation. Follow-up results of CT As needed nausea medication Maintenance IV fluids until she is able to tolerate p.o. Cough. Acute bacterial bronchitis versus developing pneumonia. Patient with cough productive of significant amount of mucus while I am in the room. Basilar crackles on the right. She has pattern concerning for bronchitis on her CXR. Aspiration may also be a consideration. Respiratory ID was negative. Considering her leukocytosis, metabolic acidosis, tachycardia - we will treat for infectious cause. Follow-up CT -We will cover with Rocephin and azithromycin, azithromycin may be discontinued if atypicals are negative -Strep pneumo, mycoplasma, Legionella antigen Psychiatric history. Documented history of autism, bipolar disorder, MRDD, psychosis. She is appropriately communicative at this time. Does not appear catatonic. Mildly anxious with fidgeting. She is eager to participate in her care. Continue patient's home medications when the patient is capable of swallowing. As needed Ativan IV Hyperchloremic metabolic acidosis. Likely associated with the above. We will recheck LR for fluids Thrombocytopenia. Chronic. 126. We will monitor Medications were not verified by pharmacy at the time of this dictation. Reconciliation to be completed once medications are verified; will address additional chronic medical problems at that time. DVT prophylaxis: SCDs Note dictated using voice recognition software and may contain typographical errors. Problem List/Past Medical History Ongoing Autism Bipolar disorder H/O scoliosis History of psychosis Mental deficiency Historical History of MRSA infection Procedure/Surgical History None Medications Home Medications (7) Active carbidopa-levodopa 25 mg-100 mg oral tablet 1 tab(s), Oral, TID divalproex sodium 125 mg oral delayed release capsule 125 mg = 1 cap(s), Oral, qDay divalproex sodium 500 mg oral tablet, extended release 500 mg = 1 tab(s), Oral, BID LORazepam 1 mg oral tablet 1 mg = 1 tab(s), Oral, qDay LORazepam 1 mg oral tablet 2 mg = 2 tab(s), Oral, BID montelukast 10 mg oral tablet 10 mg = 1 tab(s), Oral, qDay traZODone 150 mg oral tablet 150 mg = 1 tab(s), Oral, qHS Allergies NKA Social History Smoking Status - 03/24/2018 Never smoker Alcohol - Denies Alcohol Use, 09/15/2017 Use: Never., 08/07/2019 Substance Abuse - Denies Substance Abuse, 09/15/2017 Use: Never., 07/15/2021 Tobacco - Denies Tobacco Use, 07/02/2018 Nicotine Use: Never (less than 100 in lifetime)., 08/07/2019 Immunizations SARS-CoV-2 mRNA (tozinameran) vaccine: 0.3 unknown unit (07/13/21) SARS-CoV-2 mRNA (tozinameran) vaccine: 0.3 unknown unit (08/22/20) SARS-CoV-2 mRNA (tozinameran) vaccine: 0.3 unknown unit (08/01/20) tetanus/diphth/pertuss (Tdap) adult/adol: 0.5 mL (07/03/22) Code Status Code Status - Ordered -- 01/05/23 1:43:00 EDT, Full Code, Constant Order Digitally Signed by AARON FLORES MD on 01/05/2023 02:02 AM [facility] 01-05-2023 Evaluation + Plan note Extrac dennis from: Title:History and Physical Author:ANYA FLORES MD Date:01/05/23 Vomiting. Patient with 1 day history of complete inability to tolerate p.o. liquids and solids. Per ED physician, it appeared as though she was regurgitating and presentation was concerning for esophageal impaction. CT chest abdomen pelvis was ordered and is pending. Considering her metabolic acidosis, concern for infection, and inability to tolerate liquids - she will be observed in the hospital to prevent dehydration and complications of inability to tolerate her medications. GI consult for depression treatment recommendations regarding regurgitation. Follow-up results of CT As needed nausea medication Maintenance IV fluids until she is able to tolerate p.o. Cough. Acute bacterial bronchitis versus developing pneumonia. Patient with cough productive of significant amount of mucus while I am in the room. Basilar crackles on the right. She has pattern concerning for bronchitis on her CXR. Aspiration may also be a consideration. Respiratory ID was negative. Considering her leukocytosis, metabolic acidosis, tachycardia - we will treat for infectious cause. Follow-up CT -We will cover with Rocephin and azithromycin, azithromycin may be discontinued if atypicals are negative -Strep pneumo, mycoplasma, Legionella antigen Psychiatric history. Documented history of autism, bipolar disorder, MRDD, psychosis. She is appropriately communicative at this time. Does not appear catatonic. Mildly anxious with fidgeting. She is eager to participate in her care. Continue patient's home medications when the patient is capable of swallowing. As needed Ativan IV Hyperchloremic metabolic acidosis. Likely associated with the above. We will recheck LR for fluids Thrombocytopenia. Chronic. 126. We will monitor Medications were not verified by pharmacy at the time of this dictation. Reconciliation to be completed once medications are verified; will address additional chronic medical problems at that time. DVT prophylaxis: SCDs Note dictated using voice recognition software and may contain typographical errors. Addendum by AARON FLORES MD on January 05, 2023 04:36:38 EDT Medications not yet verified. They will need reconciled. Addendum by PARI LARSEN MD [facility] on January 05, 2023 17:12:53 EDT Patient rounded on the afternoon of the same date of service. Patient underwent EGD with food impaction removal by Dr Culver and Dr Bob. Definite risk of perforation given the ulceration and size of bolus; will monitor overnight on IV PPI. Clear liquid diet per above. Likely component of aspiration as noted by Dr Flores. Wean O2 as able. pari larsen md [facility] 06-21-2023 Anesthesiology Consult note Patient: SHARLA JOINER Age: 47 years Sex: Female : 1975 Associated Diagnoses: None Author: STEVEN BECKER MD Postoperative Information Patient has been doing well in the PACU. They have been hemodynamically stable, oxygenating well, the pain and nausea are under control. Pt's hydration status appears to be adequate and at baseline. Given the patient's stability, I feel they are appropriately recovered from anesthesia and in a stable condition to be discharged from PACU. Assessment Postanesthesia assessment Vitals: Vital signs from flowsheet : Vital Signs 01/05/2023 13:40 EDT Temperature Temporal Artery 36.8 DegC Heart Rate Monitored 79 bpm Respiratory Rate 18 br/min Systolic Blood Pressure Non-Invasive 111 mmHg Diastolic Blood Pressure Non-Invasive 61 mmHg Mean Arterial Pressure (NBP) 74 mmHg 01/05/2023 13:27 EDT Temperature Temporal Artery 36.8 DegC Heart Rate Monitored 77 bpm Respiratory Rate 18 br/min Systolic Blood Pressure Non-Invasive 103 mmHg Diastolic Blood Pressure Non-Invasive 56 mmHg LOW Mean Arterial Pressure (NBP) 71 mmHg 01/05/2023 13:13 EDT Heart Rate Monitored 86 bpm Respiratory Rate 18 br/min Systolic Blood Pressure Non-Invasive 103 mmHg Diastolic Blood Pressure Non-Invasive 55 mmHg LOW Mean Arterial Pressure (NBP) 70 mmHg 01/05/2023 12:58 EDT Heart Rate Monitored 81 bpm Respiratory Rate 18 br/min Systolic Blood Pressure Non-Invasive 101 mmHg Diastolic Blood Pressure Non-Invasive 61 mmHg Mean Arterial Pressure (NBP) 73 mmHg 01/05/2023 12:45 EDT Heart Rate Monitored 79 bpm Respiratory Rate 18 br/min Systolic Blood Pressure Non-Invasive 98 mmHg Diastolic Blood Pressure Non-Invasive 50 mmHg Mean Arterial Pressure (NBP) 65 mmHg 01/05/2023 12:27 EDT Temperature Temporal Artery 36.6 DegC Heart Rate Monitored 84 bpm Respiratory Rate 20 br/min Systolic Blood Pressure Non-Invasive 91 mmHg Diastolic Blood Pressure Non-Invasive 51 mmHg LOW Mean Arterial Pressure (NBP) 63 mmHg 01/05/2023 12:25 EDT Heart Rate Monitored 83 bpm bpm Respiratory Rate - Anes 0 br/min br/min 01/05/2023 12:22 EDT Systolic Blood Pressure Non-Invasive 88 mmHg mmHg Diastolic Blood Pressure Non-Invasive 51 mmHg mmHg 01/05/2023 12:20 EDT Heart Rate Monitored 81 bpm bpm Respiratory Rate - Anes 20 br/min br/min 01/05/2023 12:19 EDT Systolic Blood Pressure Non-Invasive 97 mmHg mmHg Diastolic Blood Pressure Non-Invasive 52 mmHg mmHg 01/05/2023 12:16 EDT Systolic Blood Pressure Non-Invasive 94 mmHg mmHg Diastolic Blood Pressure Non-Invasive 57 mmHg mmHg 01/05/2023 12:15 EDT Temperature (Route Not Specified) 37 DegC DegC Heart Rate Monitored 93 bpm bpm Respiratory Rate - Anes 10 br/min br/min 01/05/2023 12:13 EDT Systolic Blood Pressure Non-Invasive 84 mmHg mmHg Diastolic Blood Pressure Non-Invasive 60 mmHg mmHg 01/05/2023 12:10 EDT Temperature (Route Not Specified) 37 DegC DegC Heart Rate Monitored 99 bpm bpm Respiratory Rate - Anes 10 br/min br/min Systolic Blood Pressure Non-Invasive 86 mmHg mmHg Diastolic Blood Pressure Non-Invasive 59 mmHg mmHg 01/05/2023 12:07 EDT Systolic Blood Pressure Non-Invasive 102 mmHg mmHg Diastolic Blood Pressure Non-Invasive 49 mmHg mmHg 01/05/2023 12:05 EDT Temperature (Route Not Specified) 37 DegC DegC Heart Rate Monitored 99 bpm bpm Respiratory Rate - Anes 10 br/min br/min 01/05/2023 12:04 EDT Systolic Blood Pressure Non-Invasive 99 mmHg mmHg Diastolic Blood Pressure Non-Invasive 50 mmHg mmHg 01/05/2023 12:01 EDT Systolic Blood Pressure Non-Invasive 105 mmHg mmHg Diastolic Blood Pressure Non-Invasive 56 mmHg mmHg 01/05/2023 12:00 EDT Temperature (Route Not Specified) 37 DegC DegC Heart Rate Monitored 99 bpm bpm Respiratory Rate - Anes 10 br/min br/min 01/05/2023 11:58 EDT Systolic Blood Pressure Non-Invasive 101 mmHg mmHg Diastolic Blood Pressure Non-Invasive 59 mmHg mmHg 01/05/2023 11:55 EDT Temperature (Route Not Specified) 37 DegC DegC Heart Rate Monitored 100 bpm bpm Respiratory Rate - Anes 10 br/min br/min Systolic Blood Pressure Non-Invasive 96 mmHg mmHg Diastolic Blood Pressure Non-Invasive 50 mmHg mmHg 01/05/2023 11:52 EDT Systolic Blood Pressure Non-Invasive 100 mmHg mmHg Diastolic Blood Pressure Non-Invasive 56 mmHg mmHg 01/05/2023 11:50 EDT Temperature (Route Not Specified) 37 DegC DegC Heart Rate Monitored 100 bpm bpm Respiratory Rate - Anes 10 br/min br/min 01/05/2023 11:49 EDT Systolic Blood Pressure Non-Invasive 104 mmHg mmHg Diastolic Blood Pressure Non-Invasive 64 mmHg mmHg 01/05/2023 11:46 EDT Systolic Blood Pressure Non-Invasive 106 mmHg mmHg Diastolic Blood Pressure Non-Invasive 63 mmHg mmHg 01/05/2023 11:45 EDT Temperature (Route Not Specified) 37 DegC DegC Heart Rate Monitored 97 bpm bpm Respiratory Rate - Anes 10 br/min br/min 01/05/2023 11:43 EDT Systolic Blood Pressure Non-Invasive 92 mmHg mmHg Diastolic Blood Pressure Non-Invasive 47 mmHg mmHg 01/05/2023 11:40 EDT Temperature (Route Not Specified) 37 DegC DegC Heart Rate Monitored 91 bpm bpm Respiratory Rate - Anes 10 br/min br/min Systolic Blood Pressure Non-Invasive 90 mmHg mmHg Diastolic Blood Pressure Non-Invasive 47 mmHg mmHg 01/05/2023 11:35 EDT Temperature (Route Not Specified) 37 DegC DegC Heart Rate Monitored 84 bpm bpm Respiratory Rate - Anes 10 br/min br/min Systolic Blood Pressure Non-Invasive 88 mmHg mmHg Diastolic Blood Pressure Non-Invasive 65 mmHg mmHg 01/05/2023 11:31 EDT Systolic Blood Pressure Non-Invasive 90 mmHg mmHg Diastolic Blood Pressure Non-Invasive 71 mmHg mmHg 01/05/2023 11:30 EDT Temperature (Route Not Specified) 37 DegC DegC Heart Rate Monitored 94 bpm bpm Respiratory Rate - Anes 10 br/min br/min 01/05/2023 11:29 EDT Systolic Blood Pressure Non-Invasive 105 mmHg mmHg Diastolic Blood Pressure Non-Invasive 82 mmHg mmHg 01/05/2023 11:25 EDT Heart Rate Monitored 94 bpm bpm Respiratory Rate - Anes 10 br/min br/min Systolic Blood Pressure Non-Invasive 152 mmHg mmHg Diastolic Blood Pressure Non-Invasive 118 mmHg mmHg 01/05/2023 11:23 EDT Systolic Blood Pressure Non-Invasive 136 mmHg mmHg Diastolic Blood Pressure Non-Invasive 101 mmHg mmHg 01/05/2023 11:20 EDT Heart Rate Monitored 94 bpm bpm Respiratory Rate - Anes 23 br/min br/min Systolic Blood Pressure Non-Invasive 108 mmHg mmHg Diastolic Blood Pressure Non-Invasive 52 mmHg mmHg 01/05/2023 11:15 EDT Heart Rate Monitored 92 bpm bpm Respiratory Rate - Anes 0 br/min br/min 01/05/2023 9:24 EDT Peripheral Pulse Rate 88 bpm Respiratory Rate 29 br/min HI Systolic Blood Pressure Non-Invasive 107 mmHg Diastolic Blood Pressure Non-Invasive 51 mmHg LOW Mean Arterial Pressure (NBP) 69 mmHg 01/05/2023 7:59 EDT Peripheral Pulse Rate 86 bpm Respiratory Rate 18 br/min Systolic Blood Pressure Non-Invasive 119 mmHg Diastolic Blood Pressure Non-Invasive 56 mmHg LOW Mean Arterial Pressure (NBP) 73 mmHg 01/05/2023 4:02 EDT Temperature Oral 37.7 DegC HI Peripheral Pulse Rate 102 bpm HI Respiratory Rate 18 br/min Systolic Blood Pressure Non-Invasive 114 mmHg Diastolic Blood Pressure Non-Invasive 63 mmHg 01/05/2023 3:12 EDT Peripheral Pulse Rate 93 bpm Respiratory Rate 18 br/min 01/05/2023 1:36 EDT Peripheral Pulse Rate 95 bpm Systolic Blood Pressure Non-Invasive 110 mmHg Diastolic Blood Pressure Non-Invasive 51 mmHg LOW 01/04/2023 18:40 EDT Temperature Temporal Artery 36.3 DegC Peripheral Pulse Rate 101 bpm HI Respiratory Rate 18 br/min Systolic Blood Pressure Non-Invasive 107 mmHg Diastolic Blood Pressure Non-Invasive 70 mmHg . Digitally Signed by STEVEN BECKER MD on 01/05/2023 01:53 PM [id number] Note Date of Service 01/05/2023 Procedure Name EGD with foreign body removal Referring Provider Yao Limon Prior to beginning the procedure, and informed consent conference was held with the patient at the bedside. All the risks, benefits, alternatives to this procedure were discussed at length. The patient seemed to understand the risk and gave us informed consent via signature. Consent was obtained from the patient's mother prior to beginning the procedure Indication Dysphagia, esophageal foreign body Location OR 1 Pre-Procedure Exam Prior to the procedure being performed, history and physical was performed. All the risks and benefits of the procedure were discussed at length with the patient and informed consent was obtained. Timeout time was performed prior to beginning the procedure. Physical exam was repeated prior to the procedure. Cardiac exam revealed a regular rate and rhythm no murmurs, rubs, or gallops. Respiratory exam was clear throughout. Abdominally the patient was soft and nontender. There is no rebound or guarding present. The patient was not taking anticoagulation prior to the procedure. The patient did not require antibiotic prophylaxis. After obtaining informed consent, the Olympus endoscope was passed under direct vision into the second portion of the duodenum. She tolerated the procedure well Procedural Sedation Propofol per anesthesia staff Post-Procedure Exam To recovery without complication Findings The Olympus endoscope was passed under direct vision into the larynx where we immediately encountered a very large, solid food bolus in the proximal esophagus. Attempts were made for removal with both a variceal banding kit suction technique, rat-tooth forceps, snare. These were all completely unsuc cessful. I then paged ENT for evaluation. Dr. Bob came from ENT and performed a laryngoscopy. He was able to pass a grasper, with esophagoscopy tube, and remove multiple large chunks of chicken. After removing the lung multiple large chunks with multiple passes the food bolus passed into the distal esophagus. He concluded his part of the procedure. I then advanced my gastroscope into the distalportion of the esophagus and removed 2 large chunks of chicken with a Buitrago net. I then advanced my scope with gentle endoscopic pressure into the gastric lumen. I advanced the scope into the duodenalbulb and second portion which appeared normal. I then withdrew the scope back into the gastric lumen notable for gastritis. I then withdrew the scope back into the esophageal lumen. I passed multipleadditional boluses of food easily into the gastric lumen. There is a linear tear noted at 37 cm, which appeared superficial. There did not appear to be a herber perforation. After concluding that the fluid bolus had been removed, I withdrew the scope back into the proximal esophagus. At approximately 15 cm just beyond the pharynx, an esophageal stricture was noted. This was ulcerated. My scope easily passed through this area. The procedure was then concluded. Impression Esophageal stricture with ulceration noted proximally just distal to the pharynx. This was ulcerated likely related to large bolus which had been sitting there. Linear tear measuring approximately 1 cm at 37 cm from the incisors. This appeared superficial withno evidence of herber perforation. Mild gastritis. Entire examined duodenum appeared normal Complications None Estimated Blood Loss 5 cc Assessment/Plan Vomiting Follow Up/Recommendation - Pantoprazole 40 mg IV twice daily for the next 24 hours. -She can then transition to oral therapy twice daily. Would monitor her overnight, particularly looking for worsening chest pain, nausea, vomiting, shortness of breath. Though there does not appear to be perforation, this needs to be monitored. -Greatly appreciate ENT being involved in this case with the complexity as noted above. -Speech therapy consultation should be obtained as well for appropriate dietary recommendations. Wewill continue to follow along with you. Please call if additional questions or concerns moving forward. Digitally Signed by MAKEDA CULVER MD on 01/05/2023 12:23 PM [id number] Anesthesiology Consult note Patient: SHARLA JOINER Age: 47 years Sex: Female : 1975 Associated Diagnoses: None Author: SIA MONTERROSO MD Preoperative Information NPO >8 hours Anesthesia history Patient's history: negative. Family's history: negative. History of Present Illness 47yoF with PMH psychotic episodes, autism spectrum disorder, thrombocytopenia, MRDD presenting for EGD for food bolus. History obtained from POA and chart review. Pt presented with refusal to eat andincreased congestion for one day and it was unclear if she aspirated or has a food bolus. Health Status Allergies: Allergic Reactions (Selected) NKA, Allergies (1) ActiveReaction NKANone Documented Current medications: (Selected) Inpatient Medications Ordered Ativan: 1 mg, 0.5 mL, IV Push, q6hr, PRN: Agitation LR 1,000 mL: 100 mL/hr, Intravenous Rocephin: 2 gram(s), 20 mL, 240 mL/hr, IV Push (INT), qDay Zithromax IV: 500 mg, 5 mL, 250 mL/hr, IV Piggyback, qDay Zofran ODT: 4 mg, 1 tab(s), Oral, q6h, PRN: Nausea/Vomiting Zofran: 4 mg, 2 mL, IV Push, q4h, PRN: Nausea/Vomiting acetaminophen: 650 mg, 2 tab(s), Oral, q6hWA, PRN: as needed for pain melatonin: 3 mg, 1 tab(s), Oral, qHS, PRN: Sleep melatonin: 3 mg, 1 tab(s), Oral, qHS, PRN: Sleep Documented Medications Documented LORazepam 1 mg oral tablet: 2 mg, 2 tab(s), Oral, TID Vitamin D3 50 mcg (2000 intl units) oral capsule: 50 mcg, 1 cap(s), Oral, Daily, 0 Refill(s) divalproex sodium 500 mg oral tablet, extended release: 500 mg, 1 tab(s), Oral, BID montelukast 10 mg oral tablet: 10 mg, 1 tab(s), Oral, qDay, 0 Refill(s) traZODone 150 mg oral tablet: 150 mg, 1 tab(s), Oral, qHS, 30 tab(s), 0 Refill(s), Medications (9) Active Scheduled: (2) azithromycin IV 500 mg 5 mL, IV Piggyback, qDay cefTRIAXone IVP syringe 2 gram(s) 20 mL, IV Push (INT), qDay Continuous: (1) Lactated Ringers 1,000 mL 1,000 mL, Intravenous, 100 mL/hr PRN: (6) acetaminophen 325 mg Tablet 650 mg 2 tab(s), Oral, q6hWA LORAZEPam 2 mg/mL 1 mL vial 1 mg 0.5 mL, IV Push, q6hr melatonin 3 mg tablet 3 mg 1 tab(s), Oral, qHS melatonin 3 mg tablet 3 mg 1 tab(s), Oral, qHS ondansetron 2 mg/ 1 mL 2 mL INJ 4 mg 2 mL, IV Push, q4h ondansetron 4 mg DIS tablet 4 mg 1 tab(s), Oral, q6h Problem list: Medical Autism / SNOMED CT 8386728136 / Confirmed Bipolar disorder / SNOMED CT 39648439 / Confirmed H/O scoliosis / SNOMED CT 404882869 / Confirmed History of psychosis / SNOMED CT 110012752 / Confirmed Mental deficiency / SNOMED CT 798054772 / Confirmed, Active Problems (5) Autism Bipolar disorder H/O scoliosis History of psychosis Mental deficiency Histories Past Medical History: Resolved History of MRSA infection ([id number]): Onset on 05/31/2022 at 46 years. Resolved on 08/24/2022 at 47years. Comments: 08/24/2022 EST 10:38 ETNA [place] Removed MRSA disease alert from 05/31/22 per provider order on 08/24/22. Procedure history: None ([id number]). Social History Social & Psychosocial Habits Alcohol 09/15/2017Risk Assessment: Denies Alcohol Use 08/07/2019 Use: Never Substance Abuse 09/15/2017Risk Assessment: Denies Substance Abuse 07/15/2021 Use: Never Tobacco 07/02/2018Risk Assessment: Denies Tobacco Use 08/07/2019 Tobacco Use: Never (less than 100 in l . Physical Examination Vital Signs(last 24 hrs) Last Charted Temp OralH 37.7DegC (JAN 05 04:02) Heart Rate Istrbfbyl21 bpm (JAN 05 11:15) Resp Rate H 29br/min (JAN 05 09:24) HLI652 mmHg (JAN 05 09:24) DBPL 51mmHg (JAN 05 09:24) Measurements from flowsheet : Measurements 01/04/2023 18:40 EDT Admission Weight 57.1 kg General: Alert and oriented, No acute distress. Airway: Normal mouth, Normal neck range of motion. Mallampati classification: II (soft palate, fauces, uvula visible). Dentition Evaluation: Intact. Neck: Supple. Respiratory: Respirations are non-labored. Cardiovascular: Normal rate, Regular rhythm. Heart Sounds: Normal. Neurologic: Alert, Oriented. Review / Management Results review: Labs (Last four charted values) WBC H 15.3(JAN 05)H 17.6(JAN 04) Hgb 13.7(JAN 05)14.1(JAN 04) Hct 41.1(JAN 05)42.3(JAN 04) Plt L 122(JAN 05)L 126(JAN 04) Na 140(JAN 05)143(JAN 05) K 4.0(JAN 05)3.6(JAN 05) CO2 23(JAN 05)L 16(JAN 05) Cl 106(JAN 05)H 115(JAN 05) Cr 0.68(JAN 05)L 0.48(JAN 05) BUN 11.0(JAN 05)9.0(JAN 05) Glucose H 130(JAN 05)91(JAN 05) Ca L 8.5(JAN 05)L 7.2(JAN 05) PT 13.5(JAN 05) INR 1.1(JAN 05) . Documentation reviewed: Current records. Assessment and Plan [place] [employer] (ASA) physical status classification: Class III, E. Anesthetic Preoperative Plan Premedication: intravenous. Anesthetic technique: General. Induction: intravenously. Maintenance airway: Oral endotracheal tube. Postoperative pain management: Per surgeon. Risks discussed: nausea, vomiting, headache, sore throat, dental injury, hypotension, allergic reaction, serious complications. Informed consent: signed by family, phone consent from POA. Notes: Late entry due to participation in pt care. Pt seen and evaluated prior to performing anesthetic. Discussed and agree upon plan. . Digitally Signed by SIA MONTERROSO MD on 01/05/2023 11:29 AM [id number] Gastroenterology Consult note Date of Service 01/05/2023 esophageal food bolus, leukocytosis, abnormal CT thorax, hypoxia Reason for Consultation Esophageal food bolus, abnormal CT thorax, leukocytosis, hypoxia Referring Physician Dr. Larsen History of Present Illness The patient is a 47-year-old female, who resides in a shelter, with a past medical history significant for autism, MRDD, bipolar disorder with psychosis, and chronic thrombocytopenia. Patient history is somewhat limited but was obtained from patient's caregiver at the bedside. 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 Patient was reportedly at her baseline level of health 2 days ago. On arrival patient was noted to be tachycardic and had evidence of metabolic acidosis, leukocytosiswith WBC count of 17.6 and chronic thrombocytopenia with platelet count 126. Chest x-ray was notable for mild bronchial wall thickening, per report concerning for acute versus chronic bronchitis. CT of abdomen pelvis with contrast was negative for acute abnormalities. CT thorax was notable for an irregular appearance of the lower cervical/upper thoracic esophagus, with focal outpouching, per report could be due to esophageal diverticulum versus underlying mass versus other. Patient was started on IV fluids, antiemetic therapy and antibiotics and admitted for further evaluation and treatment. She remains in the ER awaiting a bed. Night she did have an episode of hypoxia and was started on oxygen, currently on 3 L/min. Also febrile, temperature max 37.7 C. We have been consulted to see the patient from a GI standpoint due to the concern for esophageal food impaction/bolus. Her caregiver remains at the bedside. Her mother Kylee Cameron is listed as legal guardian and reportedly provides consent for treatment. Patient was seen and examined resting in bed. She is able to follow some simple commands and answera few simple questions. She complains of chest and abdominal discomfort. Does not appear that she is still able to tolerate her own oral secretions as a significant amount of mucus was noted on her down/chest. She reports ongoing symptoms of esophageal obstruction. Is unclear if she has ever experienced an episode of esophageal impaction/food bolus. Endoscopic history remains unknown. Per shelter staff bowel habits have been regular and there is been no evidence of overt GI bleeding. Reportedly patient does not complain much in the way of heartburn or dyspepsia. Up until this event oral intake was good. Review of Systems 10 system review of systems was completed all pertinent positives were described above and are otherwise negative. Physical Exam Vitals and Measurements T: 37.7 C (Oral) TMIN: 36.3 C (Temporal Artery) TMAX: 37.7 C (Oral) HR: 86 RR: 18 BP: 119/56 SpO2:95% WT: 57.1 kg Weight Dosing Weight: 57.1 kg (01/04/23) General Appearance: Patient is alert, chronically ill-appearing, in no acute distress. Calm. Cooperative. HEENT: Head is normocephalic and atraumatic. Conjunctivae are clear without exudates or hemorrhage sclera is nonicteric. Nasal mucosa is pink and moist. Oral mucosa is pink and moist. The pharynx is normal in appearance. Well. Trachea midline. Cardiac: Heart rate and rhythm are normal. S1 and S2 are heard and are of normal intensity. Tachycardic Lungs: No signs of respiratory distress. Lung sounds are diminished in all lobes. On O2 at 3 L/min.Mildly tachycardic. Abdomen: Abdomen is soft, symmetric and nontender without distention. There are no visible lesions or scars. Umbilicus is midline without herniation. Bowel sounds are present and active in all 4 quadrants. No masses, hepatomegaly or splenomegaly are noted. Extremities: No edema noted. Pulses palpable. Neurological: The patient is awake, alert and oriented to self. Cooperative with care. Follows simple commands and answers a few simple questions. Speech is clear to a few simple words. Skin: Skin is pale pink, diaphoretic. Lab Results 01/05 05:14 WBC: 15.3 H Hgb: 13.7 Hct: 41.1 Platelet: 122 L Neutrophil %: 84.6 H Glucose Level: 130 H Sodium Level: 140 Potassium Level: 4.0 BUN: 11.0 Creatinine Lvl (s): 0.68 01/05 00:27 Glucose Level: 91 Sodium Level: 143 Potassium Level: 3.6 BUN: 9.0 Creatinine Lvl (s): 0.48 L 01/04 23:11 WBC: 17.6 H Hgb: 14.1 Hct: 42.3 Platelet: 126 L Neutrophil %: 81.8 H Assessment/Plan Vomiting Problem list: 1. Possible esophageal food bolus/meat impaction -accompanied by a sudden onset of inability tolerate oral intake and regurgitation of solids, liquids, pills and oral secretions/mucus 2. Abnormal CT thorax 3. Leukocytosis improving 4. Hypoxia 5. Chronic thrombocytopenia We have been consulted to see the patient for possible esophageal food bolus/meat impaction, accompanied by a sudden onset of interval tolerate oral intake and regurgitation of solids, liquids, pillsand decreased ability to manage oral secretions. Symptoms started suddenly after breakfast yesterday and persisted throughout her workshop. On arrival she was noted to have leukocytosis and metabolicacidosis accompanied by abnormal chest x-ray and CT thorax as described above. Although history is limited due to patient's underlying comorbidities, symptoms do seem pretty consistent with food bolus. Concerned that she may have persistent obstruction, so does not seem to be tolerating much in theway of her own oral secretions, significant of saliva and mucus noted on her chest in hospital gown. Reports sensation of ongoing obstruction and chest discomfort. Do wonder if this secondary to underlying esophageal diverticulum versus stricture versus other. I do have concern that she may have aspirated with her hypoxia and leukocytosis as well as abnormalchest x-ray. Leukocytosis has slightly improved this morning and she has been started on antibiotics. Continues with chronic thrombocytopenia but no significant changes, platelet count 122 this morning, do wonder if this secondary to her medications? She does remain on O2 at 3 L/min and is tachycard ic and mildly tachypneic on exam. Plan: Keep patient NPO. Check PT/INR. Start twice daily IV PPI therapy. We will plan for EGD under general anesthesia to further evaluate patient. Patient will need intubated for this procedure due to concern for ongoing esophageal obstruction, concern for aspiration andO2 requirements. Risk versus benefits of the procedure include bleeding, infection, perforation as well as complications of anesthesia. We will attempt to reach patient's mother to obtain consent. Thank you for this consult. We will follow with you. Call us with questions or concerns. Refer to Dr. Culver's addendum to find out further recommendations. Problem List/Past Medical History Ongoing Autism Bipolar disorder H/O scoliosis History of psychosis Mental deficiency Historical History of MRSA infection Procedure/Surgical History None Medications Inpatient acetaminophen, 650 mg= 2 tab(s), Oral, q6hWA, PRN Ativan, 1 mg= 0.5 mL, IV Push, q6hr, PRN LR 1,000 mL, 1000 mL, Intravenous melatonin, 3 mg= 1 tab(s), Oral, qHS, PRN melatonin, 3 mg= 1 tab(s), Oral, qHS, PRN Rocephin, 2 gram(s)= 20 mL, IV Push (INT), qDay Zithromax IV Zofran, 4 mg= 2 mL, IV Push, q4h, PRN Zofran ODT, 4 mg= 1 tab(s), Oral, q6h, PRN Home divalproex sodium 500 mg oral tablet, extended release, 500 mg= 1 tab(s), Oral, BID LORazepam 1 mg oral tablet, 2 mg= 2 tab(s), Oral, TID montelukast 10 mg oral tablet, 10 mg= 1 tab(s), Oral, qDay traZODone 150 mg oral tablet, 150 mg= 1 tab(s), Oral, qHS Vitamin D3 50 mcg (2000 intl units) oral capsule, 50 mcg= 1 cap(s), Oral, Daily Allergies NKA Social History Smoking Status - 03/24/2018 Never smoker Alcohol - Denies Alcohol Use, 09/15/2017 Use: Never., 08/07/2019 Substance Abuse - Denies Substance Abuse, 09/15/2017 Use: Never., 07/15/2021 Tobacco - Denies Tobacco Use, 07/02/2018 Nicotine Use: Never (less than 100 in lifetime)., 08/07/2019 Immunizations SARS-CoV-2 mRNA (tozinameran) vaccine: 0.3 unknown unit (07/13/21) SARS-CoV-2 mRNA (tozinameran) vaccine: 0.3 unknown unit (08/22/20) SARS-CoV-2 mRNA (tozinameran) vaccine: 0.3 unknown unit (08/01/20) tetanus/diphth/pertuss (Tdap) adult/adol: 0.5 mL (07/03/22) Digitally Signed by MATT HERNANDEZ on 01/05/2023 09:23 AM [id number] G[facility] Consult note Date of Service 01/05/2023 esophageal food bolus, leukocytosis, abnormal CT thorax, hypoxia Reason for Consultation Esophageal food bolus, abnormal CT thorax, leukocytosis, hypoxia Referring Physician Dr. Larsen History of Present Illness The patient is a 47-year-old female, who resides in a shelter, with a past medical history significant for autism, MRDD, bipolar disorder with psychosis, and chronic thrombocytopenia. Patient history is somewhat limited but was obtained from patient's caregiver at the bedside. 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 Patient was reportedly at her baseline level of health 2 days ago. On arrival patient was noted to be tachycardic and had evidence of metabolic acidosis, leukocytosiswith WBC count of 17.6 and chronic thrombocytopenia with platelet count 126. Chest x-ray was notable for mild bronchial wall thickening, per report concerning for acute versus chronic bronchitis. CT of abdomen pelvis with contrast was negative for acute abnormalities. CT thorax was notable for an irregular appearance of the lower cervical/upper thoracic esophagus, with focal outpouching, per report could be due to esophageal diverticulum versus underlying mass versus other. Patient was started on IV fluids, antiemetic therapy and antibiotics and admitted for further evaluation and treatment. She remains in the ER awaiting a bed. Night she did have an episode of hypoxia and was started on oxygen, currently on 3 L/min. Also febrile, temperature max 37.7 C. We have been consulted to see the patient from a GI standpoint due to the concern for esophageal food impaction/bolus. Her caregiver remains at the bedside. Her mother Kylee Cameron is listed as legal guardian and reportedly provides consent for treatment. Patient was seen and examined resting in bed. She is able to follow some simple commands and answera few simple questions. She complains of chest and abdominal discomfort. Does not appear that she is still able to tolerate her own oral secretions as a significant amount of mucus was noted on her down/chest. She reports ongoing symptoms of esophageal obstruction. Is unclear if she has ever experienced an episode of esophageal impaction/food bolus. Endoscopic history remains unknown. Per shelter staff bowel habits have been regular and there is been no evidence of overt GI bleeding. Reportedly patient does not complain much in the way of heartburn or dyspepsia. Up until this event oral intake was good. Review of Systems 10 system review of systems was completed all pertinent positives were described above and are otherwise negative. Physical Exam Vitals and Measurements T: 37.7 C (Oral) TMIN: 36.3 C (Temporal Artery) TMAX: 37.7 C (Oral) HR: 86 RR: 18 BP: 119/56 SpO2: 95% WT: 57.1 kg Weight Dosing Weight: 57.1 kg (01/04/23) General Appearance: Patient is alert, chronically ill-appearing, in no acute distress. Calm. Cooperative. HEENT: Head is normocephalic and atraumatic. Conjunctivae are clear without exudates or hemorrhage sclera is nonicteric. Nasal mucosa is pink and moist. Oral mucosa is pink and moist. The pharynx is normal in appearance. Well. Trachea midline. Cardiac: Heart rate and rhythm are normal. S1 and S2 are heard and are of normal intensity. Tachycardic Lungs: No signs of respiratory distress. Lung sounds are diminished in all lobes. On O2 at 3 L/min.Mildly tachycardic. Abdomen: Abdomen is soft, symmetric and nontender without distention. There are no visible lesions or scars. Umbilicus is midline without herniation. Bowel sounds are present and active in all 4 quadrants. No masses, hepatomegaly or splenomegaly are noted. Extremities: No edema noted. Pulses palpable. Neurological: The patient is awake, alert and oriented to self. Cooperative with care. Follows simple commands and answers a few simple questions. Speech is clear to a few simple words. Skin: Skin is pale pink, diaphoretic. Lab Results 01/05 05:14 WBC: 15.3 H Hgb: 13.7 Hct: 41.1 Platelet: 122 L Neutrophil %: 84.6 H Glucose Level: 130 H Sodium Level: 140 Potassium Level: 4.0 BUN: 11.0 Creatinine Lvl (s): 0.68 01/05 00:27 Glucose Level: 91 Sodium Level: 143 Potassium Level: 3.6 BUN: 9.0 Creatinine Lvl (s): 0.48 L 01/04 23:11 WBC: 17.6 H Hgb: 14.1 Hct: 42.3 Platelet: 126 L Neutrophil %: 81.8 H Assessment/Plan Vomiting Problem list: 1. Possible esophageal food bolus/meat impaction -accompanied by a sudden onset of inability tolerate oral intake and regurgitation of solids, liquids, pills and oral secretions/mucus 2. Abnormal CT thorax 3. Leukocytosis improving 4. Hypoxia 5. Chronic thrombocytopenia We have been consulted to see the patient for possible esophageal food bolus/meat impaction, accompanied by a sudden onset of interval tolerate oral intake and regurgitation of solids, liquids, pillsand decreased ability to manage oral secretions. Symptoms started suddenly after breakfast yesterday and persisted throughout her workshop. On arrival she was noted to have leukocytosis and metabolicacidosis accompanied by abnormal chest x-ray and CT thorax as described above. Although history is limited due to patient's underlying comorbidities, symptoms do seem pretty consistent with food bolus. Concerned that she may have persistent obstruction, so does not seem to be tolerating much in theway of her own oral secretions, significant of saliva and mucus noted on her chest in hospital gown. Reports sensation of ongoing obstruction and chest discomfort. Do wonder if this secondary to underlying esophageal diverticulum versus stricture versus other. I do have concern that she may have aspirated with her hypoxia and leukocytosis as well as abnormalchest x-ray. Leukocytosis has slightly improved this morning and she has been started on antibiotics. Continues with chronic thrombocytopenia but no significant changes, platelet count 122 this morning, do wonder if this secondary to her medications? She does remain on O2 at 3 L/min and is tachycard ic and mildly tachypneic on exam. Plan: Keep patient NPO. Check PT/INR. Start twice daily IV PPI therapy. We will plan for EGD under general anesthesia to further evaluate patient. Patient will need intubated for this procedure due to concern for ongoing esophageal obstruction, concern for aspiration andO2 requirements. Risk versus benefits of the procedure include bleeding, infection, perforation as well as complications of anesthesia. We will attempt to reach patient's mother to obtain consent. Thank you for this consult. We will follow with you. Call us with questions or concerns. Refer to Dr. Culver's addendum to find out further recommendations. Problem List/Past Medical History Ongoing Autism Bipolar disorder H/O scoliosis History of psychosis Mental deficiency Historical History of MRSA infection Procedure/Surgical History None Medications Inpatient acetaminophen, 650 mg= 2 tab(s), Oral, q6hWA, PRN Ativan, 1 mg= 0.5 mL, IV Push, q6hr, PRN LR 1,000 mL, 1000 mL, Intravenous melatonin, 3 mg= 1 tab(s), Oral, qHS, PRN melatonin, 3 mg= 1 tab(s), Oral, qHS, PRN Rocephin, 2 gram(s)= 20 mL, IV Push (INT), qDay Zithromax IV Zofran, 4 mg= 2 mL, IV Push, q4h, PRN Zofran ODT, 4 mg= 1 tab(s), Oral, q6h, PRN Home divalproex sodium 500 mg oral tablet, extended release, 500 mg= 1 tab(s), Oral, BID LORazepam 1 mg oral tablet, 2 mg= 2 tab(s), Oral, TID montelukast 10 mg oral tablet, 10 mg= 1 tab(s), Oral, qDay traZODone 150 mg oral tablet, 150 mg= 1 tab(s), Oral, qHS Vitamin D3 50 mcg (2000 intl units) oral capsule, 50 mcg= 1 cap(s), Oral, Daily Allergies NKA Social History Smoking Status - 03/24/2018 Never smoker Alcohol - Denies Alcohol Use, 09/15/2017 Use: Never., 08/07/2019 Substance Abuse - Denies Substance Abuse, 09/15/2017 Use: Never., 07/15/2021 Tobacco - Denies Tobacco Use, 07/02/2018 Nicotine Use: Never (less than 100 in lifetime)., 08/07/2019 Immunizations SARS-CoV-2 mRNA (tozinameran) vaccine: 0.3 unknown unit (07/13/21) SARS-CoV-2 mRNA (tozinameran) vaccine: 0.3 unknown unit (08/22/20) SARS-CoV-2 mRNA (tozinameran) vaccine: 0.3 unknown unit (08/01/20) tetanus/diphth/pertuss (Tdap) adult/adol: 0.5 mL (07/03/22) Digitally Signed by MATT HERNANDEZ on 01/05/2023 09:23 AM [id number] Gastro[facility] Consult note Date of Service 01/05/2023 esophageal food bolus, leukocytosis, abnormal CT thorax, hypoxia Reason for Consultation Esophageal food bolus, abnormal CT thorax, leukocytosis, hypoxia Referring Physician Dr. Larsen History of Present Illness The patient is a 47-year-old female, who resides in a shelter, with a past medical history significant for autism, MRDD, bipolar disorder with psychosis, and chronic thrombocytopenia. Patient history is somewhat limited but was obtained from patient's caregiver at the bedside. 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 Patient was reportedly at her baseline level of health 2 days ago. On arrival patient was noted to be tachycardic and had evidence of metabolic acidosis, leukocytosiswith WBC count of 17.6 and chronic thrombocytopenia with platelet count 126. Chest x-ray was notable for mild bronchial wall thickening, per report concerning for acute versus chronic bronchitis. CT of abdomen pelvis with contrast was negative for acute abnormalities. CT thorax was notable for an irregular appearance of the lower cervical/upper thoracic esophagus, with focal outpouching, per report could be due to esophageal diverticulum versus underlying mass versus other. Patient was started on IV fluids, antiemetic therapy and antibiotics and admitted for further evaluation and treatment. She remains in the ER awaiting a bed. Night she did have an episode of hypoxia and was started on oxygen, currently on 3 L/min. Also febrile, temperature max 37.7 C. We have been consulted to see the patient from a GI standpoint due to the concern for esophageal food impaction/bolus. Her caregiver remains at the bedside. Her mother Kylee Cameron is listed as legal guardian and reportedly provides consent for treatment. Patient was seen and examined resting in bed. She is able to follow some simple commands and answera few simple questions. She complains of chest and abdominal discomfort. Does not appear that she is still able to tolerate her own oral secretions as a significant amount of mucus was noted on her down/chest. She reports ongoing symptoms of esophageal obstruction. Is unclear if she has ever experienced an episode of esophageal impaction/food bolus. Endoscopic history remains unknown. Per shelter staff bowel habits have been regular and there is been no evidence of overt GI bleeding. Reportedly patient does not complain much in the way of heartburn or dyspepsia. Up until this event oral intake was good. Review of Systems 10 system review of systems was completed all pertinent positives were described above and are otherwise negative. Physical Exam Vitals and Measurements T: 37.7 C (Oral) TMIN: 36.3 C (Temporal Artery) TMAX: 37.7 C (Oral) HR: 86 RR: 18 BP: 119/56 SpO2: 95% WT: 57.1 kg Weight Dosing Weight: 57.1 kg (01/04/23) General Appearance: Patient is alert, chronically ill-appearing, in no acute distress. Calm. Cooperative. HEENT: Head is normocephalic and atraumatic. Conjunctivae are clear without exudates or hemorrhage sclera is nonicteric. Nasal mucosa is pink and moist. Oral mucosa is pink and moist. The pharynx is normal in appearance. Well. Trachea midline. Cardiac: Heart rate and rhythm are normal. S1 and S2 are heard and are of normal intensity. Tachycardic Lungs: No signs of respiratory distress. Lung sounds are diminished in all lobes. On O2 at 3 L/min.Mildly tachycardic. Abdomen: Abdomen is soft, symmetric and nontender without distention. There are no visible lesions or scars. Umbilicus is midline without herniation. Bowel sounds are present and active in all 4 quadrants. No masses, hepatomegaly or splenomegaly are noted. Extremities: No edema noted. Pulses palpable. Neurological: The patient is awake, alert and oriented to self. Cooperative with care. Follows simple commands and answers a few simple questions. Speech is clear to a few simple words. Skin: Skin is pale pink, diaphoretic. Lab Results 01/05 05:14 WBC: 15.3 H Hgb: 13.7 Hct: 41.1 Platelet: 122 L Neutrophil %: 84.6 H Glucose Level: 130 H Sodium Level: 140 Potassium Level: 4.0 BUN: 11.0 Creatinine Lvl (s): 0.68 01/05 00:27 Glucose Level: 91 Sodium Level: 143 Potassium Level: 3.6 BUN: 9.0 Creatinine Lvl (s): 0.48 L 01/04 23:11 WBC: 17.6 H Hgb: 14.1 Hct: 42.3 Platelet: 126 L Neutrophil %: 81.8 H Assessment/Plan Vomiting Problem list: 1. Possible esophageal food bolus/meat impaction -accompanied by a sudden onset of inability tolerate oral intake and regurgitation of solids, liquids, pills and oral secretions/mucus 2. Abnormal CT thorax 3. Leukocytosis improving 4. Hypoxia 5. Chronic thrombocytopenia We have been consulted to see the patient for possible esophageal food bolus/meat impaction, accompanied by a sudden onset of interval tolerate oral intake and regurgitation of solids, liquids, pillsand decreased ability to manage oral secretions. Symptoms started suddenly after breakfast yesterday and persisted throughout her workshop. On arrival she was noted to have leukocytosis and metabolicacidosis accompanied by abnormal chest x-ray and CT thorax as described above. Although history is limited due to patient's underlying comorbidities, symptoms do seem pretty consistent with food bolus. Concerned that she may have persistent obstruction, so does not seem to be tolerating much in theway of her own oral secretions, significant of saliva and mucus noted on her chest in hospital gown. Reports sensation of ongoing obstruction and chest discomfort. Do wonder if this secondary to underlying esophageal diverticulum versus stricture versus other. I do have concern that she may have aspirated with her hypoxia and leukocytosis as well as abnormalchest x-ray. Leukocytosis has slightly improved this morning and she has been started on antibiotics. Continues with chronic thrombocytopenia but no significant changes, platelet count 122 this morning, do wonder if this secondary to her medications? She does remain on O2 at 3 L/min and is tachycard ic and mildly tachypneic on exam. Plan: Keep patient NPO. Check PT/INR. Start twice daily IV PPI therapy. We will plan for EGD under general anesthesia to further evaluate patient. Patient will need intubated for this procedure due to concern for ongoing esophageal obstruction, concern for aspiration andO2 requirements. Risk versus benefits of the procedure include bleeding, infection, perforation as well as complications of anesthesia. We will attempt to reach patient's mother to obtain consent. Thank you for this consult. We will follow with you. Call us with questions or concerns. Refer to Dr. Culver's addendum to find out further recommendations. Problem List/Past Medical History Ongoing Autism Bipolar disorder H/O scoliosis History of psychosis Mental deficiency Historical History of MRSA infection Procedure/Surgical History None Medications Inpatient acetaminophen, 650 mg= 2 tab(s), Oral, q6hWA, PRN Ativan, 1 mg= 0.5 mL, IV Push, q6hr, PRN LR 1,000 mL, 1000 mL, Intravenous melatonin, 3 mg= 1 tab(s), Oral, qHS, PRN melatonin, 3 mg= 1 tab(s), Oral, qHS, PRN Rocephin, 2 gram(s)= 20 mL, IV Push (INT), qDay Zithromax IV Zofran, 4 mg= 2 mL, IV Push, q4h, PRN Zofran ODT, 4 mg= 1 tab(s), Oral, q6h, PRN Home divalproex sodium 500 mg oral tablet, extended release, 500 mg= 1 tab(s), Oral, BID LORazepam 1 mg oral tablet, 2 mg= 2 tab(s), Oral, TID montelukast 10 mg oral tablet, 10 mg= 1 tab(s), Oral, qDay traZODone 150 mg oral tablet, 150 mg= 1 tab(s), Oral, qHS Vitamin D3 50 mcg (2000 intl units) oral capsule, 50 mcg= 1 cap(s), Oral, Daily Allergies NKA Social History Smoking Status - 03/24/2018 Never smoker Alcohol - Denies Alcohol Use, 09/15/2017 Use: Never., 08/07/2019 Substance Abuse - Denies Substance Abuse, 09/15/2017 Use: Never., 07/15/2021 Tobacco - Denies Tobacco Use, 07/02/2018 Nicotine Use: Never (less than 100 in lifetime)., 08/07/2019 Immunizations SARS-CoV-2 mRNA (tozinameran) vaccine: 0.3 unknown unit (07/13/21) SARS-CoV-2 mRNA (tozinameran) vaccine: 0.3 unknown unit (08/22/20) SARS-CoV-2 mRNA (tozinameran) vaccine: 0.3 unknown unit (08/01/20) tetanus/diphth/pertuss (Tdap) adult/adol: 0.5 mL (07/03/22) Digitally Signed by MATT HERNANDEZ on 01/05/2023 09:23 AM [id number] History and physical note Date of Service 01/05/23 Chief Complaint Pt comes in with caregiver due to increased nausea and vomiting. Pt unable to keep food down today at home. History of Present Illness 47-year-old female with PMHx bipolar disorder with psychotic episodes, autism spectrum disorder, thrombocytopenia, MRDD presents to the ED for 1 day history of increased congestion and not eating. History obtained by patient, patient's caregiver ED physician, chart review. For the past 1 day, she has been spitting up food. Noted to have cough productive of purulent mucus. Increased activity, appears slightly more agitated than her baseline. Bowel movements have been regular. Patient complains of lower abdominal pain. She denies rashes or swelling. Endorses ongoing cough. In the emergency department she was tachycardic with rate 101. BP stable. O2 saturation 90 to 92% on room air. CBC shows WBC 17.6, platelets 126. Urinalysis is not concerning for infection. CMP shows metabolic acidosis with CO2 16. Chloride 115. Lipase normal at 24. CXR shows mild bronchial wall thickening suggestive of acute or chronic bronchitis. She was given Zofran, [address] abdomen pelvis ordered, pending. Review of Systems Pertinent review of systems are included in the HPI. All other systems were reviewed and are negative for acute changes from the patient's baseline. Physical Exam Vitals and Measurements T: 36.3 C (Temporal Artery) HR: 95 RR: 18 BP: 110/51 SpO2: 90% WT: 57.1 kg Weight Dosing Weight: 57.1 kg (01/04/23) GA: Oriented to the fact that she is in the hospital and her name. : No suprapubic TTP Abd: Soft nontender nondistended BS+ HEENT: oral mucosa moist. NCAT Pulmonary: Actively coughing on examination with yellow mucus on her shirt and on the bed. Cracklesat the right lung base. MSK: no gross deformities Cardiovascular: RRR, no MRG. No lower extremity edema. Skin: warm and dry Neuro: Spontaneous equal movement of all extremities. No gross deficits. Psychiatric: The patient has a speech impediment which makes it difficult to understand. She is able to communicate her symptoms and participate somewhat in conversation. Somewhat fidgety with upper extremities. Following commands appropriately. No overt agitation or combativeness. Lab Results 01/05 00:27 WBC: 17.6 10^3/mcL High (01/04/23 23:11:00) RBC: 4.49 10^6/mcL (01/04/23 23:11:00) Hgb: 14.1 G/dL (01/04/23 23:11:00) Hct: 42.3 % (01/04/23 23:11:00) MCV: 94.1 fL (01/04/23 23:11:00) MCH: 31.4 pg (01/04/23 23:11:00) MCHC: 33.3 G/dL (01/04/23 23:11:00) RDW: 14.1 % (01/04/23 23:11:00) Platelet: 126 10^3/mcL Low (01/04/23 23:11:00) MPV: 8.5 fL (01/04/23 23:11:00) Monocyte Distribution Width: 18.19 (01/04/23 23:11:00) Neutrophil %: 81.8 % High (01/04/23 23:11:00) Lymphocyte %: 4.3 % Low (01/04/23 23:11:00) Monocyte %: 13.6 % High (01/04/23 23:11:00) Eosinophil %: 0.1 % (01/04/23 23:11:00) Basophil %: 0.2 % (01/04/23 23:11:00) Neutrophil, Absolute: 14.4 10^3/mcL High (01/04/23 23:11:00) Lymphocyte, Absolute: 0.8 10^3/mcL Low (01/04/23 23:11:00) Monocyte, Absolute: 2.4 10^3/mcL High (01/04/23 23:11:00) Eosinophil, Absolute: 0 10^3/mcL (01/04/23:11:00) Basophil, Absolute: 0 10^3/mcL (01/04/23 23:11:00) UA Specimen Type: Clean Catch (01/05/23 00:46:00) UA Color: Yellow (01/05/23 00:46:00) UA Appear: Clear (01/05/23 00:46:00) UA Spec Grav: 1.025 (01/05/23 00:46:00) UA Glucose: Negative. (01/05/23 00:46:00) UA Bili: Negative. (01/05/23 00:46:00) UA Ketones: 15 Abnormal (01/05/23 00:46:00) UA Blood: Negative. (01/05/23 00:46:00) UA pH: 8.0 (01/05/23 00:46:00) UA Protein: Trace (01/05/23 00:46:00) UA Urobilinogen: 2.0 Abnormal (01/05/23 00:46:00) UA Nitrite: Negative. (01/05/23 00:46:00) UA Leuk Est: Trace (01/05/23 00:46:00) UA RBC: 0-2 (01/05/23 00:46:00) UA WBC: 0-2 (01/05/23 00:46:00) UA Squam Epithelial: 0-2 (01/05/23 00:46:00) UA Mucous: 2+ (01/05/23 00:46:00) UA Amorphus: 1+ (01/05/23 00:46:00) UA Bacteria: Negative. (01/05/23 00:46:00) Glucose Level: 91 mg/dL (01/05/23 00:27:00) Sodium Level: 143 mEq/L (01/05/23 00:27:00) Potassium Level: 3.6 mEq/L (01/05/23 00:27:00) Chloride: 115 mEq/L High (01/05/23:27:00) CO2: 16 mEq/L Low (01/05/23 00:27:00) Electrolyte Balance: 12 mEq/L (01/05/23 00:27:00) BUN: 9 mg/dL (01/05/23 00:27:00) Creatinine Lvl (s): 0.48 mg/dL Low (01/05/23 00:27:00) BUN/Creatinine Ratio: 18.8 ratio (01/05/23 00:27:00) Calcium Lvl: 7.2 mg/dL Low (01/05/23:27:00) Total Protein: 5.3 G/dL Low (01/05/23 00:27:00) Albumin Level: 2.7 G/dL Low (01/05/23 00:27:00) Globulin: 2.6 G/dL (01/05/23 00:27:00) A/G Ratio: 1 ratio (01/05/23 00:27:00) Bili Total: 0.6 mg/dL (01/05/23 00:27:00) Alk Phos: 41 U/L (01/05/23 00:27:00) AST/SGOT: 28 U/L (01/05/23 00:27:00) ALT/SGPT: 18 U/L (01/05/23 00:27:00) GFR Non-: >60 (01/05/23 00:27:00) GFR : >60 (01/05/23 00:27:00) Lipase Level: 24 U/L (01/05/23 00:27:00) Adenovirus: Not Detected TORCH (01/04/23 19:28:00) Coronavirus HKU1 (Not COVID-19): Not Detected TORCH (01/04/23 19:28:00) Coronavirus NL63 (Not COVID-19): Not Detected TORCH (01/04/23 19:28:00) Coronavirus 229E (Not COVID-19): Not Detected TORCH (01/04/23 19:28:00) Coronavirus OC43 (Not COVID-19): Not Detected TORCH (01/04/23 19:28:00) SARS-CoV-2: Not Detected TORCH (01/04/23 19:28:00) Human Metapneumovirus: Not Detected TORCH (01/04/23 19:28:00) Influenza A: Not Detected TORCH (01/04/23 19:28:00) Influenza B: Not Detected TORCH (01/04/23 19:28:00) Parainfluenza 1: Not Detected TORCH (01/04/23 19:28:00) Parainfluenza 2: Not Detected TORCH (01/04/23 19:28:00) Parainfluenza 3: Not Detected TORCH (01/04/23 19:28:00) Parainfluenza 4: Not Detected TORCH (01/04/23 19:28:00) Rhinovirus/Enterovirus: Not Detected TORCH (01/04/23 19:28:00) Respiratory Syncytial Virus: Not Detected TORCH (01/04/23 19:28:00) Mycoplasma pneumoniae: Not Detected TORCH (01/04/23 19:28:00) Chlamydophila pneumoniae: Not Detected TORCH (01/04/23 19:28:00) Bordetella Pertussis: Not Detected TORCH (01/04/23 19:28:00) Bordetella Parapertussis: Not Detected TORCH (01/04/23 19:28:00) Imaging Results and Diagnostics XR Chest 1 View Result Date: January 04, 2023 Verified By: JAVIER CATES MD CLINICAL STATEMENT: IMPRESSION: Suggested mild bronchial wall thickening which could reflect acute or chronicbronchitis. No focal consolidation Assessment/Plan Vomiting. Patient with 1 day history of complete inability to tolerate p.o. liquids and solids. [facility] physician, it appeared as though she was regurgitating and presentation was concerning for esophageal impaction. CT chest abdomen pelvis was ordered and is pending. Considering her metabolic acidosis, concern for infection, and inability to tolerate liquids - she will be observed in the hospitalto prevent dehydration and complications of inability to tolerate her medications. GI consult for depression treatment recommendations regarding regurgitation. Follow-up results of CT As needed nausea medication Maintenance IV fluids until she is able to tolerate p.o. Cough. Acute bacterial bronchitis versus developing pneumonia. Patient with cough productive of significant amount of mucus while I am in the room. Basilar crackles on the right. She has pattern concerning for bronchitis on her CXR. Aspiration may also be a consideration. Respiratory ID was negative. Considering her leukocytosis, metabolic acidosis, tachycardia - we will treat for infectious cause. Follow-up CT -We will cover with Rocephin and azithromycin, azithromycin may be discontinued if atypicals are negative -Strep pneumo, mycoplasma, Legionella antigen Psychiatric history. Documented history of autism, bipolar disorder, MRDD, psychosis. She is appropriately communicative at this time. Does not appear catatonic. Mildly anxious with fidgeting. She iseager to participate in her care. Continue patient's home medications when the patient is capable of swallowing. As needed Ativan IV Hyperchloremic metabolic acidosis. Likely associated with the above. We will recheck LR for fluids Thrombocytopenia. Chronic. 126. We will monitor Medications were not verified by pharmacy at the time of this dictation. Reconciliation to be completed once medications are verified; will address additional chronic medical problems at that time. DVT prophylaxis: SCDs Note dictated using voice recognition software and may contain typographical errors. Problem List/Past Medical History Ongoing Autism Bipolar disorder H/O scoliosis History of psychosis Mental deficiency Historical History of MRSA infection Procedure/Surgical History None Medications Home Medications (7) Active carbidopa-levodopa 25 mg-100 mg oral tablet 1 tab(s), Oral, TID divalproex sodium 125 mg oral delayed release capsule 125 mg = 1 cap(s), Oral, qDay divalproex sodium 500 mg oral tablet, extended release 500 mg = 1 tab(s), Oral, BID LORazepam 1 mg oral tablet 1 mg = 1 tab(s), Oral, qDay LORazepam 1 mg oral tablet 2 mg = 2 tab(s), Oral, BID montelukast 10 mg oral tablet 10 mg = 1 tab(s), Oral, qDay traZODone 150 mg oral tablet 150 mg = 1 tab(s), Oral, qHS Allergies NKA Social History Smoking Status - 03/24/2018 Never smoker Alcohol - Denies Alcohol Use, 09/15/2017 Use: Never., 08/07/2019 Substance Abuse - Denies Substance Abuse, 09/15/2017 Use: Never., 07/15/2021 Tobacco - Denies Tobacco Use, 07/02/2018 Nicotine Use: Never (less than 100 in lifetime)., 08/07/2019 Immunizations SARS-CoV-2 mRNA (tozinameran) vaccine: 0.3 unknown unit (07/13/21) SARS-CoV-2 mRNA (tozinameran) vaccine: 0.3 unknown unit (08/22/20) SARS-CoV-2 mRNA (tozinameran) vaccine: 0.3 unknown unit (08/01/20) tetanus/diphth/pertuss (Tdap) adult/adol: 0.5 mL (07/03/22) Code Status Code Status - Ordered -- 01/05/23 1:43:00 EDT, Full Code, Constant Order Digitally Signed by AARON FLORES MD on 01/05/2023 02:02 AM [id number] Note ORIGINAL EXAMINATION: CT OF THE ABDOMEN AND PELVIS WITH CONTRAST 01/05/2023 3:12 am TECHNIQUE: CT of the abdomen and pelvis was performed with the administration of intravenous contrast. Multiplanar reformatted images are provided for review. Automated exposure control, iterative reconstruction, and/or weight based adjustment of the mA/kV was utilized to reduce the radiation dose to as low as reasonably achievable. COMPARISON: Same day CT chest. CT abdomen pelvis 08/24/2022. HISTORY: ORDERING SYSTEM PROVIDED HISTORY: Reason for Exam: VOMITING, SOB, CHEST PAIN intractible vomiting FINDINGS: Patient motion obscures some detail. Same day CT chest reported separately. Normal liver and gallbladder. The spleen, pancreas, and adrenal glands are unremarkable. Symmetric nephrograms without evidence of hydronephrosis or nephrolithiasis. Collapsed stomach limits evaluation. The large and small bowel are unremarkable. Normal appendix. Nonaneurysmal abdominal aorta. No abdominal lymphadenopathy, free fluid, or intraperitoneal free air identified. Under distended urinary bladder limiting evaluation. Small amount of fluid within the endometrial canal, likely physiologic. Otherwise, the pelvic organs are unrevealing. Small fat containing umbilical hernia. No acute osseous abnormality. IMPRESSION: No acute findings. I have personally reviewed the images of this examination and agree with the resident's findings and interpretation. Interpreted by: Aldo Armando MD Preliminary Report By: Carlo Bob Electronically signed By Aldo Armando MD Dictated Date: 01/05/2023 3:35:43 AM Prelim Date: 01/05/2023 3:39:05 AM Sign Date: 01/05/2023 4:24:12 AM Ordering Provider: [facility]06-21-2023 Note ORIGINAL EXAMINATION: CT OF THE CHEST WITH CONTRAST 01/05/2023 3:12 am TECHNIQUE: CT of the chest was performed with the administration of intravenous contrast. Multiplanar reformatted images are provided for review. Automated exposure control, iterative reconstruction, and/or weight based adjustment of the mA/kV was utilized to reduce the radiation dose to as low as reasonably achievable. COMPARISON: None. HISTORY: ORDERING SYSTEM PROVIDED HISTORY: Reason for Exam: VOMITING, SOB, CHEST PAIN spitting up, ?esophageal obstruction FINDINGS: Same day CT abdomen pelvis dictated separately. No acute osseous abnormality. Sternal irregularity on sagittal imaging due to step-off artifact from respiratory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 inherently subject to errors including those of syntax and sound-alike substitutions which may escape proofreading. In such instances, original meaning may be extrapolated by contextual derivation. documented in this encounterGrant Hospital02-11-2023 Hospital Discharge instructions Patient Education 08/28/2022 15:27:21 Dehydration, Adult, Lfts-ix-Zxnu Dehydration, Adult Dehydration is when there is not enough fluid or water in your body. This happens when you lose more fluids than you take in. Dehydration can range from mild to very bad. It should be treated right away to keep it from getting very bad. Symptoms of mild dehydration may include: Thirst. Dry lips. Slightly dry mouth. Dry, warm skin. Dizziness. Symptoms of moderate dehydration may include: Very dry mouth. Muscle cramps. Dark pee (urine). Pee may be the color of tea. Your body making less pee. Your eyes making fewer tears. Heartbeat that is uneven or faster than normal (palpitations). Headache. Light-headedness, especially when you stand up from sitting. Fainting (syncope). Symptoms of very bad dehydration may include: Changes in skin, such as: ?Cold and clammy skin. ?Blotchy (mottled) or pale skin. ?Skin that does not quickly return to normal after being lightly pinched and let go (poor skin turgor). Changes in body fluids, such as: ?Feeling very thirsty. ?Your eyes making fewer tears. ?Not sweating when body temperature is high, such as in hot weather. ?Your body making very little pee. Changes in vital signs, such as: ?Weak pulse. ?Pulse that is more than 100 beats a minute when you are sitting still. ?Fast breathing. ?Low blood pressure. Other changes, such as: ?Sunken eyes. ?Cold hands and feet. ?Confusion. ?Lack of energy (lethargy). ?Trouble waking up from sleep. ?Short-term weight loss. ?Unconsciousness. Follow these instructions at home: If told by your doctor, drink an ORS: ?Make an ORS by using instructions on the package. ?Start by drinking small amounts, about cup (120 mL) every 5 10 minutes. ?Slowly drink more until you have had the amount that your doctor said to have. Drink enough clear fluid to keep your pee clear or pale yellow. If you were told to drink an ORS, finish the ORS first, then start slowly drinking clear fluids. Drink fluids such as: ?Water. Do not drink only water by itself. Doing that can make the salt (sodium) level in your bodyget too low (hyponatremia). ?Ice chips. ?Fruit juice that you have added water to (diluted). ?Low-calorie sports drinks. Avoid: ?Alcohol. ?Drinks that have a lot of sugar. These include high-calorie sports drinks, fruit juice that does not have water added, and soda. ?Caffeine. ?Foods that are greasy or have a lot of fat or sugar. Take [id number] and prescription medicines only as told by your doctor. Do not take salt tablets. Doing that can make the salt level in your body get too high (hypernatremia). Eat foods that have minerals (electrolytes). Examples include bananas, oranges, potatoes, tomatoes,and spinach. Keep all follow-up visits as told by your doctor. This is important. Contact a doctor if: You have belly (abdominal) pain that: ?Gets worse. ?Stays in one area (localizes). You have a rash. You have a stiff neck. You get angry or annoyed more easily than normal (irritability). You are more sleepy than normal. You have a harder time waking up than normal. You feel: ?Weak. ?Dizzy. ?Very thirsty. You have peed (urinated) only a small amount of very dark pee during 6 8 hours. Get help right away if: You have symptoms of very bad dehydration. You cannot drink fluids without throwing up (vomiting). Your symptoms get worse with treatment. You have a fever. You have a very bad headache. You are throwing up or having watery poop (diarrhea) and it: ?Gets worse. ?Does not go away. You have blood or something green (bile) in your throw-up. You have blood in your poop (stool). This may cause poop to look black and tarry. You have not peed in 6 8 hours. You pass out (faint). Your heart rate when you are sitting still is more than 100 beats a minute. You have trouble breathing. This information is not intended to replace advice given to you by your health care provider. Make sure you discuss any questions you have with your health care provider. Document Released: 04/30/2010 Document Revised: 06/16/2018 Document Reviewed: 08/27/2016 [employer] Patient Education 2020 [employer] Follow Up Care 08/23/2022 10:57:18 With:DESIRAE ROSARIO MD, [facility] Address: [facility] [address] [address]- When:08/28/2022 14:27:00 Comments:Follow up with primary care doctor as an outpatient. Call to make an appointment. Within 1 week With:CAROL[facility] Address: [address] [place], [place] [id number]- [phone] When:Within 4 Week(s) Comments:Follow-up with neurology as an outpatient. Call to make an appointment. Within 4 weeks With:LUCI MATSON MD Address: [address] [id number]- When:Within 2 Week(s) Comments:Follow up with psychiatry as an outpatient. Call to make an appointment. Within 2 weeks [facility] 02-11-2023 Note Discharge Instructions Thank you for allowing [facility] to assist you with your healthcare needs. The following is importantdischarge information regarding your hospital visit. Your Care Team DESIRAE ROSARIO MD Your Diagnosis Dehydration Psychiatric screening exam- not sleeping or eating What to do next Instructions From Your Doctor Complete treatment for urinary tract infection. Follow-up with primary care physician, neurology, and psychiatry as an outpatient. Call your doctor or present to the ER for any new or worsening symptoms. Follow Up Appointments Follow Up with DESIRAE ROSARIO MD, [facility] When 08/28/2022 02:27 PM EST Why: Follow up with primary care doctor as an outpatient. Call to make an appointment. Within 1 week Where: [facility] [address] [address]- Follow Up with [facility] When In 4 weeks Why: Follow-up with neurology as an outpatient. Call to make an appointment. Within 4 weeks Where: [address] [place], [place] [id number]- [phone] Follow Up with LUCI MATSON MD When In 2 weeks Why: Follow up with psychiatry as an outpatient. Call to make an appointment. Within 2 weeks Where: [address] [address]- The Following Activity and Diet Have Been Ordered for You Discharge Activity - Ordered -- Activity As Tolerated, 08/28/22 14:12:00 EST Discharge Diet - Ordered -- Type of Diet: Regular, 08/28/22 14:12:00 EST The Following Equipment Has Been Ordered for You No qualifying data available. The Following Treatments Have Been Ordered for You Discharge Labs No qualifying data available. Discharge Radiology No qualifying data available. Other Therapies No qualifying data available. Post Acute Orders No qualifying data available. Someone Will Contact You Regarding These Home Health Referrals No home referrals have been ordered for you. No one will call you. Allergies NKA Medications Please ask your primary doctor or pharmacist before taking any other medication not listed, including over the counter drugs, herbal medications, vitamins and or supplements as they may interact withyour home medications. What How Much When Instructions Last Dose New nitrofurantoin (Macrobid 100 mg oral capsule) 1 cap by mouth Twice daily with meals Duration: 5 Days Pickup at [facility] Unchanged carbidopa-levodopa (carbidopa-levodopa 25 mg-100 mg oral tablet) 1 tab(s) by mouth Three (3) times a day Unchanged divalproex sodium (divalproex sodium 125 mg oral delayed release capsule) 1 cap by mouth Once a day Unchanged divalproex sodium (divalproex sodium 500 mg oral tablet, extended release) 1 tab(s) by mouth Two (2) times a day Unchanged LORazepam (LORazepam 1 mg oral tablet) 2 tab(s) by mouth Two (2) times a day Unchanged LORazepam (LORazepam 1 mg oral tablet) 1 tab(s) by mouth Once a day 3 pm Unchanged montelukast (montelukast 10 mg oral tablet) 1 tab(s) by mouth Once a day Unchanged traZODone (traZODone 150 mg oral tablet) 1 tab(s) by mouth Daily at bedtime Pharmacy Information [facility] #[id number]: [address] [place], [place] [phone] Please take this list to your next doctor s visit. Bring all medications you take, including over the counter medications, herbals and other supplements with you to your doctor s visit. Patients and families are reminded to discard old lists and to update any records with all medication providers or retail pharmacies. Education Materials Dehydration, Adult Dehydration is when there is not enough fluid or water in your body. This happens when you lose more fluids than you take in. Dehydration can range from mild to very bad. It should be treated right away to keep it from getting very bad. Symptoms of mild dehydration may include: Thirst. Dry lips. Slightly dry mouth. Dry, warm skin. Dizziness. Symptoms of moderate dehydration may include: Very dry mouth. Muscle cramps. Dark pee (urine). Pee may be the color of tea. Your body making less pee. Your eyes making fewer tears. Heartbeat that is uneven or faster than normal (palpitations). Headache. Light-headedness, especially when you stand up from sitting. Fainting (syncope). Symptoms of very bad dehydration may include: Changes in skin, such as: ? Cold and clammy skin. ? Blotchy (mottled) or pale skin. ? Skin that does not quickly return to normal after being lightly pinched and let go (poor skin turgor). Changes in body fluids, such as: ? Feeling very thirsty. ? Your eyes making fewer tears. ? Not sweating when body temperature is high, such as in hot weather. ? Your body making very little pee. Changes in vital signs, such as: ? Weak pulse. ? Pulse that is more than 100 beats a minute when you are sitting still. ? Fast breathing. ? Low blood pressure. Other changes, such as: ? Sunken eyes. ? Cold hands and feet. ? Confusion. ? Lack of energy (lethargy). ? Trouble waking up from sleep. ? Short-term weight loss. ? Unconsciousness. Follow these instructions at home: If told by your doctor, drink an ORS: ? Make an ORS by using instructions on the package. ? Start by drinking small amounts, about cup (120 mL) every 5 10 minutes. ? Slowly drink more until you have had the amount that your doctor said to have. Drink enough clear fluid to keep your pee clear or pale yellow. If you were told to drink an ORS, finish the ORS first, then start slowly drinking clear fluids. Drink fluids such as: ? Water. Do not drink only water by itself. Doing that can make the salt (sodium) level in your body get too low (hyponatremia). ? Ice chips. ? Fruit juice that you have added water to (diluted). ? Low-calorie sports drinks. Avoid: ? Alcohol. ? Drinks that have a lot of sugar. These include high-calorie sports drinks, fruit juice that does not have water added, and soda. ? Caffeine. ? Foods that are greasy or have a lot of fat or sugar. Take [id number] and prescription medicines only as told by your doctor. Do not take salt tablets. Doing that can make the salt level in your body get too high (hypernatremia). Eat foods that have minerals (electrolytes). Examples include bananas, oranges, potatoes, tomatoes,and spinach. Keep all follow-up visits as told by your doctor. This is important. Contact a doctor if: You have belly (abdominal) pain that: ? Gets worse. ? Stays in one area (localizes). You have a rash. You have a stiff neck. You get angry or annoyed more easily than normal (irritability). You are more sleepy than normal. You have a harder time waking up than normal. You feel: ? Weak. ? Dizzy. ? Very thirsty. You have peed (urinated) only a small amount of very dark pee during 6 8 hours. Get help right away if: You have symptoms of very bad dehydration. You cannot drink fluids without throwing up (vomiting). Your symptoms get worse with treatment. You have a fever. You have a very bad headache. You are throwing up or having watery poop (diarrhea) and it: ? Gets worse. ? Does not go away. You have blood or something green (bile) in your throw-up. You have blood in your poop (stool). This may cause poop to look black and tarry. You have not peed in 6 8 hours. You pass out (faint). Your heart rate when you are sitting still is more than 100 beats a minute. You have trouble breathing. This information is not intended to replace advice given to you by your health care provider. Make sure you discuss any questions you have with your health care provider. Document Released: 04/30/2010 Document Revised: 06/16/2018 Document Reviewed: 08/27/2016 [employer] Patient Education 2020 [employer] Additional Information VACCINATE! IT SAVES LIVES! Members of the community who have not yet received the COVID-19 vaccine and would like to receive it can visit one of [facility] vaccine clinics. There are many vaccine clinic locations within the [facility]. For locations and available times, please visit https://gettheshot.coronavirus.[place].gov/. It is important to note that some COVID mobile vaccine clinics are held outdoors and may be canceled in rainy or stormy conditions. To learn more about pediatric vaccinations (ages 5-11), we invite you to visit the [facility] webpage. [email or web address] learn more about the COVID-19 vaccine, we invite you to visit the [facility] website for a list of frequently asked questions. [email or web address] [facility] Patient Portal Access Instructions: Stay connected with your healthcare team and access your personal medical information anytime with the [facility] Patient Portal.If you would like a full copy of your medical records, please contact the [facility] Medical Records Department, Tuesday through Tuesday between 8a.m. and 4:30p.m. Please follow the directions below to access the portal: 1.Access the email account you provided upon registration to the [facility].2.Look for an invitation email from [facility].3.Open the email and access the invitation link: Accept Invitation to [facility]4.Fill in the required welch to create your account. Sign into [email or web address].Amerpages with your username and password that you created in the above steps to stay up to date. You can then view a summary of results, a summary of your visits, and the ability to download your summaries to your computer or send the information securely to a physician. Remember that your healthcare information is confidential, so carefully consider who you will allow to register on the [facility] Patient Portal for access to your information. You can also access the [facility] Patient Portal on the Gridstore. Simply click on Health Records under [employer] and then click on the [employer] logo. HOW TO SAFELY DISPOSE OF PRESCRIPTION MEDICATIONS Please use one of the following methods to safely dispose of your unused medications. 1.Use a drug disposal kit: the drug disposal pouch allows you to safely discard your old and unuseddrugs. Ask your nurse to give you one when you are discharged.2.Visit a local take-back location: Many local pharmacies and police departments have programs that collect old and unwanted prescriptiondrugs. Call your local pharmacy or go to http://[employer]/5R2Tj9d to find one close to you.3.Make use of household items: Use cat litter or old coffee grounds to dispose medications if other options arenot available. Mix your drugs with these household products, seal them in an airtight container andthrow it into the garbage. Call [facility]: [phone] to be sure your drugs can be disposed of in this way. Some medicines may require a different approach.4.Never flush your medications down the toilet. IF YOU HAVE BEEN PRESCRIBED AN OPIOID FOR PAIN If you have been prescribed an opioid (such as hydrocodone, oxycodone or morphine), it is critical to understand the possible side effects and risks of opioid pain medications. Even when taken as directed, opioids can have several side effects including: Tolerance, meaning you might need to take more of a medication for the same pain relief. Nausea, vomiting and/or constipation. Sleepiness, dizziness, dry mouth, confusion, depression or itching. Physical dependence, meaning you have withdrawal symptoms when a medication is stopped, can develop within a few days. KNOW YOUR RESPONSIBILITIES It is important to know exactly how much and how often to take the opioid pain medications you are prescribed. Never take opioids in higher amounts or more often than prescribed. Do not combine opioids with alcohol or other drugs that cause drowsiness, such as benzodiazepines, also known as benzos, including diazepam and alprazolam, muscle relaxants or sleep aids. Never sell or share prescription opioids. This is illegal. Store opioids in a secure place and out of reach of others (including children, family, friends and visitors). The last page of this document has been signed and retained as a CHART COPY. Signatures Patient Education Materials Dehydration, Adult, Ciqo-gv-Qlsd Medication Leaflets My discharge plan and instructions have been reviewed and explained to me and IELFEGO LARISSA R understand my current condition and have read and understand these discharge instructions. I have received a written copy of the plan/instructions. If I have questions, I am aware that I should contactmy doctor. Patient/Case Management Rn Signature: Date/Time: Relationship to Patient: Witness Name/Signature: Date/Time: [facility] [id number] Discharge summary Date of Service August 28, 2022 Discharge Diagnosis Altered mental status Poor oral intake History of bipolar disorder History of autism History of MRDD Hospital Course 47-year-old female with past medical history significant for bipolar disorder, autism, MRDD who presented initially on 08/23 with altered mental status and poor oral intake. At baseline patient is ableto perform most ADLs independently and was able to carry on a conversation. In the last several days prior to presentation patient was not eating or drinking and was not taking her medications. She was also not communicating appropriately and unable to complete her ADLs. Patient was therefore sent in for evaluation. Patients mother indicates that he has a few episodes where she was considered catatonic and regressed potentially once a year. In the last year it was more often perhaps 3 times total. Prior episodes have lasted a few days and up to 1-2 weeks. Patient's mother notes that prior episodes were never this severe. Patient previously seen by neurology as an outpatient. She has previously been worked up for Parkinson's disease as well as a seizure disorder. To patient's mother's federico edwards both of these work-ups were negative. 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 Patient underwent further work-up for her altered mental status. Initial urinalysis with hematuria but no signs of infection. Ammonia level, lactic acid, B12, and TSH within normal limits. Troponin negative x1. Chest x- ray at presentation limited by positioning but otherwise unremarkable. CT head demonstrates no acute intracranial abnormality. CT abdomen/pelvis demonstrates bladder wall thickening suspicious for cystitis. Repeat urinalysis is concerning for UTI and urine culture demonstrates E. coli. Sensitivities reviewedand patient started on nitrofurantoin to complete course of treatment. Patient was seen by both neurology as well as psychiatry during hospitalization. No concern for acute psychosis by psychiatry nochanges to patient's psychiatric medications at this time. MRI of the brain and EEG were ordered tofurther evaluate patient however patient was unable to tolerate either of these and therefore they have been canceled. Patient has improved some during hospitalization. She is able to eat and take her medications which she was not doing prior to presentation. She does remain significantly altered which is similar to these prior catatonic states that patient's mother describes. Patient's mother indicated, as above, that these episodes have lasted 2 weeks at times. Neurology did recommend that o beny time patient should like a be titrated off Sinemet as an outpatient. Plan is for patient to return to shelter at this time and follow-up with primary care physician, neurology, and psychiatry. Allergies NKA Procedures No procedures were performed during this admission Consults Consult to Physician - Ordered -- 08/23/22 14:35:00 DANO GABRIEL MICHAEL MD, Routine, refusing to eat or drink, h/o bipolar disorder Consult to Physician - Ordered -- 08/23/22 14:51:00 DANO GABRIEL MICHAEL MD, Routine, MRDD, Bipolar disorder, Acute confusion, On antipsychotics Consult to Physician - Ordered -- 08/25/22 19:50:00 MILADIS GABRIEL CHARLES A MD, Routine, AMS Imaging Results and Diagnostics CT Abdomen/Pelvis w/Contrast Result Date: August 24, 2022 Verified By: ASHLIE WILLIAM, SHAYAN Pradhan CLINICAL STATEMENT: IMPRESSION: Bladder wall thickening suspicious for cystitis. Correlation with urinalysis is recommended. No other sign of acute abnormality. CT Head or Brain w/o Contrast Result Date: August 24, 2022 Verified By: LEIGHA XAVIER MD CLINICAL STATEMENT: IMPRESSION: No acute intracranial abnormality. XR Chest 1 View Result Date: August 23, 2022 Verified By: SEFERINO MCKEON MD CLINICAL STATEMENT: IMPRESSION: Limited by positioning, otherwise unremarkable. Physical Exam Vitals and Measurements T: 36.3 C (Oral) TMIN: 36.3 C (Oral) TMAX: 36.7 C (Oral) HR: 90 RR: 16 BP: 135/58 SpO2: 100% No qualifying data available. General Appearance: Alert, no acute distress Head: Normocephalic, atraumatic EENT: PERRLA, EOMI. Neck: Supple, no JVD, no thyromegaly Cardiac: Regular rate and rhythm. Normal S1/S2. No murmurs, rubs, gallops appreciated. Lungs: Lungs clear to auscultation bilaterally. No rhonchi, wheezing, or rales appreciated. Abdomen: Soft, nontender, nondistended. BS *4. Extremities: No LE edema. Neurological: Alert, does not answer questions appropriately. Continues to answer no and I don't know to all questions. Not following commands Skin: No excoriations, lacerations, rash, or erythema Pending Labs and Studies Finalization of blood cultures pending Code Status Code Status - Ordered -- 08/23/22 14:35:00 EST, Full Code, Constant Order Admission Date August 23, 2022 Discharge Date August 28, 2022 Patient Instructions Complete treatment for urinary tract infection. Follow-up with primary care physician, neurology, and psychiatry as an outpatient. Call your doctor or present to the ER for any new or worsening symptoms. Medications New Prescription nitrofurantoin (Macrobid 100 mg oral capsule)1 cap by mouth twice daily with meals for 5 Days. Refills: 0. Unchanged carbidopa-levodopa (carbidopa-levodopa 25 mg-100 mg oral tablet)1 tab(s) by mouth three (3) times aday. divalproex sodium (divalproex sodium 125 mg oral delayed release capsule)1 cap by mouth once a day. divalproex sodium (divalproex sodium 500 mg oral tablet, extended release)1 tab(s) by mouth two (2)times a day. LORazepam (LORazepam 1 mg oral tablet)2 tab(s) by mouth two (2) times a day. LORazepam (LORazepam 1 mg oral tablet)1 tab(s) by mouth once a day. 3 pm. montelukast (montelukast 10 mg oral tablet)1 tab(s) by mouth once a day. traZODone (traZODone 150 mg oral tablet)1 tab(s) by mouth daily at bedtime. Follow Up Follow Up with LUCI MATSON MD When In 2 weeks Why: Follow up with psychiatry as an outpatient. Call to make an appointment. Where: [address] [facility] [address] [place] [address]- [facility] When In 4 weeks Why: Follow-up with neurology as an outpatient. Call to make an appointment. Where: [address] [place] [address]- [phone] Follow Up with DESIRAE ROSARIO MD, [facility] When Within 5 to 7 days Why: Follow up with primary care doctor as an outpatient. Call to make an appointment. Where: [facility] [address] [facility] [address] [place] [address]- Discharge Diet Discharge Diet - Ordered -- Type of Diet: Regular, 08/28/22 14:12:00 EST Discharge Activity Discharge Activity - Ordered -- Activity As Tolerated, 08/28/22 14:12:00 EST Condition on Discharge Improved Discharge Disposition [facility] Information Provided To Patient and mother Time Spent >30 minutes Digitally Signed by SHELTON LYNNE MD on 08/28/2022 02:20 PM [id number] Note Date of Service August 27, 2022 Chief Complaint Altered mental status Subjective 47-year-old female with past medical history significant for bipolar disorder, autism, MRDD who presented initially on 08/23 with altered mental status and poor oral intake. At baseline patient is ableto perform most ADLs independently and was able to carry on a conversation. In the last several days prior to presentation patient was not eating or drinking and was not taking her medications. She was also not communicating appropriately and unable to complete her ADLs. Patient was therefore sent in for evaluation. Work-up thus far has been unremarkable. Patient is undergoing further work-up. On evaluation today, patient remains very confused. She has become more combative and is spitting out medications again. Patient also pulled out her IV. Patient was able to take some of her medications when given in pudding. Her verbal responses which no and I don't know are less frequent today. Patient has been positive urinary tract infection on repeat urinalysis and culture. No other acute events overnight Objective Vitals and Measurements T: 36.7 C (Oral) TMIN: 36.7 C (Oral) TMAX: 36.9 C (Oral) HR: 95 RR: 18 BP: 112/71 SpO2: 98% Intake and Output 7AM Yesterday to 7AM Today Intake and Output (Last 24 hours) Intake Oral Intake 200.00 Output Urine Voided 15.00 Urinary Catheter Output: 0.00 Stool Count 0.00 Diaper Count 3.00 Total Summary Total Intake 200.00 Total Output 15.00 Fluid Balance 185.00 Physical Exam Head: Normocephalic, atraumatic EENT: PERRLA, EOMI. Neck: Supple, no JVD Cardiac: Regular rate and rhythm. Normal S1/S2. No murmurs appreciated. Lungs: Lungs clear to auscultation bilaterally. Abdomen: Soft, nontender, nondistended. BS *4. Extremities: No LE edema. Neurological: Alert, not following commands, not answering questions appropriately Skin: No excoriations, lacerations No qualifying data available. Medications Medications (12) Active Scheduled: (9) carbidopa-levodopa 25 mg-100 mg Tablet 1 tab(s), Oral, TID cefdinir 300 mg Capsule 300 mg 1 cap(s), Oral, BID divalproex (Depakote ER) sodium 500 mg ER tablet 500 mg 1 tab(s), Oral, BID divalproex (Depakote Sprinkles) sodium 125 mg EC capsule 125 mg 1 cap(s), Oral, qDay heparin 5,000 units/mL (1 mL) vial 5,000 unit(s) 1 mL, Subcutaneous, q8h LORAZEPam 1 mg Tablet 2 mg 2 tab(s), Oral, BID LORAZEPam 1 mg Tablet 1 mg 1 tab(s), Oral, qDay montelukast 10 mg Tablet 10 mg 1 tab(s), Oral, qPM traZODONE 150 mg Tablet 150 mg 1 tab(s), Oral, qHS Continuous: (1) NS (0.9% nacl) 1,000 mL 1,000 mL, Intravenous, 100 mL/hr PRN: (2) acetaminophen 325 mg Tablet 650 mg 2 tab(s), Oral, q4h ondansetron 2 mg/ 1 mL 2 mL INJ 4 mg 2 mL, IV Push, q4h Lab Results 08/27 03:55 WBC: 6.6 Hgb: 13.6 Hct: 41.0 Platelet: 153 Neutrophil %: 42.2 L Glucose Level: 87 Sodium Level: 145 Potassium Level: 3.7 BUN: 12.0 Creatinine Lvl (s): 0.72 Assessment/Plan Altered mental status Poor oral intake History of bipolar disorder History of autism History of MRDD At presentation patient afebrile and otherwise hemodynamically stable. She was mildly tachycardic at presentation with a heart rate of 107. Initial urinalysis with hematuria but no signs of infection. Ammonia level, lactic acid, B12, and TSH within normal limits. Troponin negative x1. Chest x-ray at presentation limited by positioning but otherwise unremarkable. Patient received 1 L normal salinebolus in the ER. Patient's facility had been concerned regarding her psychiatric medications affecting her mental status. Psychiatry evaluated patient during hospitalization no concern regarding patient's psychiatric medications and does not appear to be acute psychosis. Patient has undergone further work-up for altered mental status. CT head demonstrates no acute intracranial abnormality. CT abdomen/pelvis demonstrates bladder wall thickening suspicious for cystitis. Initial urinalysis unremarkable. Repeat urinalysis is concerning for UTI and urine culture demonstr ates E. coli. Await finalization of sensitivities. We will convert to oral antibiotics at this timegiven that patient is more combative and unable to keep IV in place. Pending sensitivities tomorrowwe will need to determine if patient can use an alternative oral antibiotic or needs IV. Patients mother indicates that he has a few episodes where she was considered catatonic and regressed potentially once a year. In the last year it was more often perhaps 3 times total. Prior episodes have lasted a few days and up to 1-2 weeks. Patient's mother notes that prior episodes were neverthis severe. Patient previously seen by neurology as an outpatient. She has previously been worked up for Parkinson's disease as well as a seizure disorder. Patient's mother indicated that she believes both of these work-ups were negative. 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 Patient's mental status may be related to polypharmacy and out urinary tract infection as well. Patient has been seen by neurology. EEG canceled as this is unlikely to be seizure activity. MRI of the brain is ordered and will attempt if able however patient currently is very combative and will beunlikely to tolerate imaging. Time Spent >35 minutes. Digitally Signed by SHELTON LYNNE MD on 08/27/2022 10:40 PM [id number] Nurse Progress note Patient not participating in the plan of care. Became agitated, angry, and physically aggressive towards staff. Limited assessment was obtained. Complained of a headache but refused medications. Patient removed IV. Became physically aggressive towards staff when attempting to clean of the patient. Refused an additional iv. Patient stated that her belly hurt. When asked if she had to have a bowel movement, she stated yes. have to poop. PCT and RN ambulated patient to the restroom but patientattempted to run into the hallway. Refused to ambulated and began to step on RN's shoes and refusedto walk. Patient was transferred back into the chair. Patient stated that she wants to take her pill s. Reattempted to administered medication and patient grabbed the nurse's arm and push the pills away. Charge nurse was notified. Digitally Signed by Ashley Malave RN on 08/27/2022 11:45 AM [facility] [id number] Nurse Progress note Patient not participating in the plan of care. Became agitated, angry, and physically aggressive towards staff. Limited assessment was obtained. Complained of a headache but refused medications. Patient removed IV. Became physically aggressive towards staff when attempting to clean of the patient. Refused an additional iv. Patient stated that her belly hurt. When asked if she had to have a bowel movement, she stated yes. have to poop. PCT and RN ambulated patient to the restroom but patientattempted to run into the hallway. Refused to ambulated and began to step on RN's shoes and refusedto walk. Patient was transferred back into the chair. Patient stated that she wants to take her pill s. Reattempted to administered medication and patient grabbed the nurse's arm and push the pills away. Charge nurse was notified. Digitally Signed by Ashley Malave RN on 08/27/2022 11:45 AM [facility] [id number] Neurology Progress note Date of Service August 27, 2022 Chief Complaint Confusion, patient not acting like herself Subjective Patient sitting up in chair. She is alert. Staff nurse at bedside. RN reports patient not being complaint with testing & refusing medications. She is getting agitated. No acute events overnight. Case discussed with RN. Objective Vitals and Measurements T: 36.7 C (Oral) TMIN: 36.7 C (Oral) TMAX: 36.9 C (Oral) HR: 73 RR: 18 BP: 92/55 SpO2: 97% Intake and Output 7AM Yesterday to 7AM Today Intake and Output (Last 24 hours) Intake Oral Intake 200.00 Output Urine Voided 15.00 Urinary Catheter Output: 0.00 Diaper Count 6.00 Total Summary Total Intake 200.00 Total Output 15.00 Fluid Balance 185.00 Physical Exam General Examination: awake, does not choose to answer or follow commands, per nurse she would follow commands when she wants to, on asking if she can tell her name, she said no she would not HEENT: normocephalic, pupils BERL Neuro: awake, does not choose to answer or follow commands, per nurse she would not follow commands, is irritated and is not cooperative with exam, moves all extremities spontaneously, limited Neurology examination, Reflexes/cerebellar/sensory and gait could not be assessed, No involuntary movements, No NR Medications Medications (12) Active Scheduled: (9) carbidopa-levodopa 25 mg-100 mg Tablet 1 tab(s), Oral, TID cefTRIAXone IVP syringe 1 gram(s) 10 mL, IV Push (INT), qDay divalproex (Depakote ER) sodium 500 mg ER tablet 500 mg 1 tab(s), Oral, BID divalproex (Depakote Sprinkles) sodium 125 mg EC capsule 125 mg 1 cap(s), Oral, qDay heparin 5,000 units/mL (1 mL) vial 5,000 unit(s) 1 mL, Subcutaneous, q8h LORAZEPam 2 mg/mL 1 mL vial 1 mg 0.5 mL, IV Push, qDay LORAZEPam 2 mg/mL 1 mL vial 2 mg 1 mL, IV Push, q12h montelukast 10 mg Tablet 10 mg 1 tab(s), Oral, qPM traZODONE 150 mg Tablet 150 mg 1 tab(s), Oral, qHS Continuous: (1) NS (0.9% nacl) 1,000 mL 1,000 mL, Intravenous, 100 mL/hr PRN: (2) acetaminophen 325 mg Tablet 650 mg 2 tab(s), Oral, q4h ondansetron 2 mg/ 1 mL 2 mL INJ 4 mg 2 mL, IV Push, q4h Lab Results 08/27 03:55 WBC: 6.6 Hgb: 13.6 Hct: 41.0 Platelet: 153 Neutrophil %: 42.2 L Glucose Level: 87 Sodium Level: 145 Potassium Level: 3.7 BUN: 12.0 Creatinine Lvl (s): 0.72 08/26 04:00 WBC: 6.9 Hgb: 13.7 Hct: 40.7 Platelet: 149 L Neutrophil %: 41.1 L Glucose Level: 90 Sodium Level: 143 Potassium Level: 3.8 BUN: 12.0 Creatinine Lvl (s): 0.70 Imaging Results and [address] CT Abdomen/Pelvis w/Contrast Result Date: August 24, 2022 Verified By: SHAYAN DAILEY MD CLINICAL STATEMENT: IMPRESSION: Bladder wall thickening suspicious for cystitis. Correlation with urinalysisis recommended. No other sign of acute abnormality. CT Head or Brain w/o Contrast Result Date: August 24, 2022 Verified By: LEIGHA XAVIER MD CLINICAL STATEMENT: IMPRESSION: No acute intracranial abnormality. XR Chest 1 View Result Date: August 23, 2022 Verified By: SEFERINO MCKEON MD CLINICAL STATEMENT: IMPRESSION: Limited by positioning, otherwise unremarkable. Assessment/Plan 47 yr F with PMH autism, MRDD, bipolar d/o, psychosis, impulse control d/o admitted from her group resident with concerns of poor oral intake and patient being not herself. Per documentation at her baseline she is able to perform her ADLs independently able to carry conversation but for the past few days she has been declining medications, food and has not been herself. At present patient is awake and alert but is not cooperative with examination, she is not wanting to tell her name. Patient was seen by psychiatrist during this admission and they recommended continuing her psych medications. At baseline patient is on Depakote for bipolar mood disorder. No documented history of seizures. GFRgreater than 60, AST/ALT normal, vitamin B12 625, ammonia 17, lactic acid 1.4, TSH 1.228, valproic acid level was low. 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 Per documentation at baseline patient is on Sinemet. Per documentation patient was on risperidone, patient is also on trazodone and Ativan. Impressions: UTI Likely polypharmacy issue Possible drug induced EPS Plan: -MRI brain w/o contrast ordered, if patient cooperates -CT head - nothing acute -EEG - not completed- pt not cooperative with testing at this time, so testing was canceled -Labs reviewed. Total CK levels if patient allows. -UA positive for UTI. treatment deferred to hospitalist team -At present patient's symptoms are likely secondary to underlying possible polypharmacy and UTI. Patient has been evaluated by psych and they want to continue the psychiatric medications. If patient is on any antipsychotics then the same may need to be adjusted by psychiatric team. -UTI likely contributing to patient's symptoms as well. -Patient is on Sinemet at baseline. She is being treated with Sinemet likely for drug-induced parkinsonism and the treatment for the same should be avoiding antipsychotic medications if possible and Sinemet may need to be weaned off as outpatient, defer to outpatient neurology artery. -On Depakote at baseline for mood d/o -GI/DVT prophylaxis -PT/OT/ST -Fall precautions -Further medical management per medical team -Follow up with Neurology in 4 weeks as outpatient -Please call with questions if any. -Thank you for allowing us to participate in patients care and management. -All questions were answered -Will follow MRI brain and pending neurological test results peripherally when done and follow up patient as needed based on the test results. Will sign off at present. Please call with questions if any in the interim. Case discussed with collaborating physician Dr. Crowder. He is in agreement with this plan. This note has been generated using [employer]gen dictation software. It may contain incorrect words, punctuation's and spellings that were not noted in the review of the note prior to signing. It is a split/shared visit with [employer]. I have reviewed the progress note obtained and documented by NPand I personally participated in the moise components. I have personally seen and examined the patient at bedside. I have discussed the case and management of the patient's care with [employer] SKIMMER. I agree with the above documentation. I will be off service tomorrow but will have incoming mergers and acquisitions associate Neurology follow up pending neurological test results and follow up patient as needed, please call with questions if any in the interim. Dorita Crowder MD Neurology, Vascular Neurology Neurohospitalist [facility] Digitally Signed by ASHLEY MARTE on 08/27/2022 11:14 AM Digitally Signed by DORITA CROWDER MD on 08/27/2022 11:30 AM [id number] Neurology Consult note Date of Service 08/26/2022 Reason for Consultation Patient not being herself Referring Physician Dr. Lynne History of Present Illness 47 yr F with PMH autism, MRDD, bipolar d/o, psychosis, impulse control d/o admitted from her group resident with concerns of poor oral intake and patient being not herself. Per documentation at her baseline she is able to perform her ADLs independently able to carry conversation but for the past few days she has been declining medications, food and has not been herself. At present patient is awake and alert but is not cooperative with examination, she is not wanting to tell her name. Patient was seen by psychiatrist during this admission and they recommended continuing her psych medications. At baseline patient is on Depakote for bipolar mood disorder. No documented history of seizures. UA on admission showed trace LE, GFR greater than 60, AST/ALT normal, vitamin B12 625, ammonia 17, lactic acid 1.4, TSH 1.228, valproic acid level was low. Per documentation patient was seen in December 2015for possible drug-induced parkinsonism. Per documentation at baseline patient is on Sinemet. Per documentation patient was on risperidone, patient is also on trazodone and Ativan. Review of Systems ROS could not be obtained as patient is not cooperative Physical Exam Vitals and Measurements T: 36.4 C (Oral) TMIN: 36.4 C (Oral) TMAX: 36.9 C (Oral) HR: 76(Apical) RR: 16 BP: 92/56 SpO2: 98% No qualifying data available. General Examination: awake, does not choose to answer or follow commands, per nurse she would follow commands when she wants to, on asking if she can tell her name, she said no she would not HEENT: normocephalic, pupils BERL Heart: normal S1 S2 Lungs: Bilateral air entry present Abdomen: bowel sounds present Neuro: awake, does not choose to answer or follow commands, per nurse she would follow commands, isirritated and is not cooperative with exam, moves all extremities spontaneously, limited Neurology examination, Reflexes/cerebellar/sensory and gait could not be assessed, No involuntary movements, No NR Lab Results 08/26 04:00 WBC: 6.9 Hgb: 13.7 Hct: 40.7 Platelet: 149 L Neutrophil %: 41.1 L Glucose Level: 90 Sodium Level: 143 Potassium Level: 3.8 BUN: 12.0 Creatinine Lvl (s): 0.70 08/25 04:22 WBC: 8.2 Hgb: 14.4 Hct: 42.8 Platelet: 149 L Neutrophil %: 57.3 Glucose Level: 85 Sodium Level: 143 Potassium Level: 3.7 BUN: 9.0 Creatinine Lvl (s): 0.[address] Imaging [address] Abdomen/Pelvis w/Contrast Result Date: August 24, 2022 Verified By: SHAYAN DAILEY MD CLINICAL STATEMENT: IMPRESSION: Bladder wall thickening suspicious for cystitis. Correlation with urinalysisis recommended. No other sign of acute abnormality. CT Head or Brain w/o Contrast Result Date: August 24, 2022 Verified By: LEIGHA XAVIER MD CLINICAL STATEMENT: IMPRESSION: No acute intracranial abnormality. XR Chest 1 View Result Date: August 23, 2022 Verified By: SEFERINO MCKEON MD CLINICAL STATEMENT: IMPRESSION: Limited by positioning, otherwise unremarkable. Assessment/Plan 47 yr F with PMH autism, MRDD, bipolar d/o, psychosis, impulse control d/o admitted from her group resident with concerns of poor oral intake and patient being not herself. Per documentation at her baseline she is able to perform her ADLs independently able to carry conversation but for the past few days she has been declining medications, food and has not been herself. At present patient is awake and alert but is not cooperative with examination, she is not wanting to tell her name. Patient was seen by psychiatrist during this admission and they recommended continuing her psych medications. At baseline patient is on Depakote for bipolar mood disorder. No documented history of seizures. UA on admission showed trace LE, GFR greater than 60, AST/ALT normal, vitamin B12 625, ammonia 17, lactic acid 1.4, TSH 1.228, valproic acid level was low. Per documentation patient was seen in December 2015for possible drug-induced parkinsonism. Per documentation at baseline patient is on Sinemet. Per documentation patient was on risperidone, patient is also on trazodone and Ativan. Impressions: Likely polypharmacy issue Possible drug induced EPS Plan: -MRI brain w/o contrast ordered, if patient cooperates -CT head nothing acute -EEG if patient allows and if cooperates -Labs reviewed. Total CK levels if patient allows. -At present patient's symptoms are likely secondary to underlying possible polypharmacy. Patient has been evaluated by psych and they want to continue the psychiatric medications. If patient is on any antipsychotics then the same may need to be adjusted by psychiatric team. -Patient is on Sinemet at baseline. She is being treated with Sinemet likely for drug-induced parkinsonism and the treatment for the same should be avoiding antipsychotic medications if possible and Sinemet may need to be weaned off as outpatient, defer to outpatient neurology artery. -GI/DVT prophylaxis -PT/OT/ST -Fall precautions -Further medical management per medical team -Patient counseled the risks and health hazards of smoking, excessive alcohol intake, marijuana/cocaine/drug abuse and patient counseled not to smoke cigarettes, drink excessive alcohol as well as not to smoke marijuana. Patient understands the same. -Follow up with Neurology in 4 weeks as outpatient -Please call with questions if any. -Thank you for allowing us to participate in patients care and management. -All questions were answered -Will follow MRI brain and pending neurological test results peripherally when done and follow up patient as needed based on the test results. Will sign off at present. Please call with questions if any in the interim. This note has been generated using Fastgen dictation software. It may contain incorrect words, punctuation's and spellings that were not noted in the review of the note prior to signing. Problem List/Past Medical History Ongoing Autism Bipolar disorder H/O scoliosis History of psychosis Mental deficiency Historical History of MRSA infection Procedure/Surgical History None Medications Inpatient carbidopa-levodopa 25 mg-100 mg oral tablet, 1 tab(s), Oral, TID Depakote ER, 500 mg= 1 tab(s), Oral, BID divalproex sodium 125 mg oral delayed release capsule, 125 mg= 1 cap(s), Oral, qDay heparin 5000 units/mL injection, 5000 unit(s)= 1 mL, Subcutaneous, q8h LORazepam, 1 mg= 1 tab(s), Oral, qDay LORazepam, 2 mg= 2 tab(s), Oral, BID montelukast, 10 mg= 1 tab(s), Oral, qPM NS 1,000 mL, 1000 mL, Intravenous traZODone, 150 mg= 1 tab(s), Oral, qHS Tylenol, 650 mg= 2 tab(s), Oral, q4h, PRN Zofran, 4 mg= 2 mL, IV Push, q4h, PRN Home carbidopa-levodopa 25 mg-100 mg oral tablet, 1 tab(s), Oral, TID divalproex sodium 125 mg oral delayed release capsule, 125 mg= 1 cap(s), Oral, qDay divalproex sodium 500 mg oral tablet, extended release, 500 mg= 1 tab(s), Oral, BID LORazepam 1 mg oral tablet, 1 mg= 1 tab(s), Oral, qDay LORazepam 1 mg oral tablet, 2 mg= 2 tab(s), Oral, BID montelukast 10 mg oral tablet, 10 mg= 1 tab(s), Oral, qDay traZODone 150 mg oral tablet, 150 mg= 1 tab(s), Oral, qHS Allergies NKA Social History Smoking Status - 03/24/2018 Never smoker Alcohol - Denies Alcohol Use, 09/15/2017 Use: Never., 08/07/2019 Substance Abuse - Denies Substance Abuse, 09/15/2017 Use: Never., 07/15/2021 Tobacco - Denies Tobacco Use, 07/02/2018 Nicotine Use: Never (less than 100 in lifetime)., 08/07/2019 Immunizations SARS-CoV-2 mRNA (tozinameran) vaccine: 0.3 unknown unit (07/13/21) SARS-CoV-2 mRNA (tozinameran) vaccine: 0.3 unknown unit (08/22/20) SARS-CoV-2 mRNA (tozinameran) vaccine: 0.3 unknown unit (08/01/20) tetanus/diphth/pertuss (Tdap) adult/adol: 0.5 mL (07/03/22) Digitally Signed by DORITA CROWDER MD on 08/26/2022 11:50 AM [id number] Note Date of Service August 26, 2022 Chief Complaint Altered mental status Subjective 47-year-old female with past medical history significant for bipolar disorder, autism, MRDD who presented initially on 08/23 with altered mental status and poor oral intake. At baseline patient is ableto perform most ADLs independently and was able to carry on a conversation. In the last several days prior to presentation patient was not eating or drinking and was not taking her medications. She was also not communicating appropriately and unable to complete her ADLs. Patient was therefore sent in for evaluation. Work-up thus far has been unremarkable. Patient is undergoing further work-up andneurology has been consulted. On evaluation today, patient is little bit more alert and restless. She does give more verbal responses to questions than she was yesterday but is still answering appropriately and primarily answers with the phrase I don't know. Past several days she often just would not answer questions. Patientwas doing well with oral intake and taking medications yesterday. Today patient did not do as well as breakfast. She did have liquids but did not eat much and spit out her medications. This is what she was doing at her facility prior to presentation. Thus far patient is unable to feed herself. We will see how she does with lunch. No other acute events overnight. Objective Vitals and Measurements T: 36.4 C (Oral) TMIN: 36.4 C (Oral) TMAX: 36.9 C (Oral) HR: 76(Apical) RR: 16 BP: 92/56 SpO2: 98% Intake and Output 7AM Yesterday to 7AM Today Intake and Output (Last 24 hours) Intake Output Total Summary Total Intake 0.00 Total Output 0.00 Fluid Balance 0.00 Physical Exam General Appearance: Alert, no acute distress Head: Normocephalic, atraumatic EENT: PERRLA, EOMI. Neck: Supple, no JVD Cardiac: Regular rate and rhythm. Normal S1/S2. No murmurs appreciated. Lungs: Lungs clear to auscultation bilaterally. Abdomen: Soft, nontender, nondistended. BS *4. Musculoskeletal: Moving bilateral upper and lower extremities, unable to assess strength as patientplans Extremities: No LE edema. Neurological: Alert, not following commands, minimal verbal responses No qualifying data available. Medications Medications (11) Active Scheduled: (8) carbidopa-levodopa 25 mg-100 mg Tablet 1 tab(s), Oral, TID divalproex (Depakote ER) sodium 500 mg ER tablet 500 mg 1 tab(s), Oral, BID divalproex (Depakote Sprinkles) sodium 125 mg EC capsule 125 mg 1 cap(s), Oral, qDay heparin 5,000 units/mL (1 mL) vial 5,000 unit(s) 1 mL, Subcutaneous, q8h LORAZEPam 1 mg Tablet 1 mg 1 tab(s), Oral, qDay LORAZEPam 1 mg Tablet 2 mg 2 tab(s), Oral, BID montelukast 10 mg Tablet 10 mg 1 tab(s), Oral, qPM traZODONE 150 mg Tablet 150 mg 1 tab(s), Oral, qHS Continuous: (1) NS (0.9% nacl) 1,000 mL 1,000 mL, Intravenous, 100 mL/hr PRN: (2) acetaminophen 325 mg Tablet 650 mg 2 tab(s), Oral, q4h ondansetron 2 mg/ 1 mL 2 mL INJ 4 mg 2 mL, IV Push, q4h Lab Results 08/26 04:00 WBC: 6.9 Hgb: 13.7 Hct: 40.7 Platelet: 149 L Neutrophil %: 41.1 L Glucose Level: 90 Sodium Level: 143 Potassium Level: 3.8 BUN: 12.0 Creatinine Lvl (s): 0.70 08/25 04:22 WBC: 8.2 Hgb: 14.4 Hct: 42.8 Platelet: 149 L Neutrophil %: 57.3 Glucose Level: 85 Sodium Level: 143 Potassium Level: 3.7 BUN: 9.0 Creatinine Lvl (s): 0.71 Assessment/Plan Altered mental status Poor oral intake History of bipolar disorder History of autism History of MRDD At presentation patient afebrile and otherwise hemodynamically stable. She was mildly tachycardic at presentation with a heart rate of 107. Initial urinalysis with hematuria but no signs of infection. Ammonia level, lactic acid, B12, and TSH within normal limits. Troponin negative x1. Chest x-ray at presentation limited by positioning but otherwise unremarkable. Patient received 1 L normal salinebolus in the ER. Patient's facility had been concerned regarding her psychiatric medications affecting her mental status. Psychiatry evaluated patient during hospitalization no concern regarding patient's psychiatric medications and does not appear to be acute psychosis. Patient has undergone further work-up for altered mental status. CT head demonstrates no acute intracranial abnormality. CT abdomen/pelvis demonstrates bladder wall thickening suspicious for cystitis. Initial urinalysis unremarkable. Patients mother indicates that he has a few episodes where she was considered catatonic and regressed potentially once a year. In the last year it was more often perhaps 3 times total. Prior episodes have lasted a few days and up to 1-2 weeks. Patient's mother notes that prior episodes were neverthis severe. Patient previously seen by neurology as an outpatient. She has previously been worked up for Parkinson's disease as well as a seizure disorder. Patient's mother indicated that she believes both of these work-ups were negative. 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 Patient's mental status may be related to polypharmacy. Neurology on board. MRI of the brain and EEG pending. Time Spent >35 minutes. Discussed with patients mother Shirley at [phone] with neurology Digitally Signed by SHELTON LYNNE MD on 08/26/2022 10:51 AM Digitally Signed by SHELTON LYNNE MD on 08/26/2022 11:16 AM [facility] [id number] Note Date of Service August 25, 2022 Chief Complaint Altered mental status Subjective 47-year-old female with past medical history significant for bipolar disorder, autism, MRDD who presented initially on 08/23 with altered mental status and poor oral intake. At baseline patient is ableto perform most ADLs independently and was able to carry on a conversation. In the last several days prior to presentation patient was not eating or drinking and was not taking her medications. Patient was sent in for further evaluation. On evaluation today, the patient continues to have significant altered mental status. She is still unable to answer questions appropriately for me and does not answer orientation questions appropriately even. She is unable to complete ADLs including feeding herself which she typically is able to doon her own. Patient remained significantly confused and only answers intermittently and otherwise is nonverbal and resting. No other acute events overnight. Objective Vitals and Measurements T: 36.9 C (Oral) TMIN: 36.6 C (Oral) TMAX: 36.9 C (Oral) HR: 91 RR: 16 BP: 109/66 SpO2: 99% Intake and Output 7AM Yesterday to 7AM Today Intake and Output (Last 24 hours) Intake Output Total Summary Total Intake 0.00 Total Output 0.00 Fluid Balance 0.00 Physical Exam General Appearance: Alert, no acute distress Head: Normocephalic, atraumatic EENT: PERRLA, EOMI. Neck: Supple, no JVD Cardiac: Regular rate and rhythm. Normal S1/S2. No murmurs appreciated. Lungs: Lungs clear to auscultation bilaterally Abdomen: Soft, nontender, nondistended. BS *4. Extremities: No LE edema. Neurological: Alert, answers minimal questions yes or no, not following commands Skin: No excoriations, lacerations No qualifying data available. Medications Medications (12) Active Scheduled: (8) carbidopa-levodopa 25 mg-100 mg Tablet 1 tab(s), Oral, TID divalproex (Depakote ER) sodium 500 mg ER tablet 500 mg 1 tab(s), Oral, BID divalproex (Depakote Sprinkles) sodium 125 mg EC capsule 125 mg 1 cap(s), Oral, qDay heparin 5,000 units/mL (1 mL) vial 5,000 unit(s) 1 mL, Subcutaneous, q8h LORAZEPam 1 mg Tablet 1 mg 1 tab(s), Oral, qDay LORAZEPam 1 mg Tablet 2 mg 2 tab(s), Oral, BID montelukast 10 mg Tablet 10 mg 1 tab(s), Oral, qPM traZODONE 150 mg Tablet 150 mg 1 tab(s), Oral, qHS Continuous: (1) NS (0.9% nacl) 1,000 mL 1,000 mL, Intravenous, 100 mL/hr PRN: (3) acetaminophen 325 mg Tablet 650 mg 2 tab(s), Oral, q4h LORAZEPam 2 mg/mL 1 mL vial 0.5 mg 0.25 mL, IV Push, q4h ondansetron 2 mg/ 1 mL 2 mL INJ 4 mg 2 mL, IV Push, q4h Lab Results 08/25 04:22 WBC: 8.2 Hgb: 14.4 Hct: 42.8 Platelet: 149 L Neutrophil %: 57.3 Glucose Level: 85 Sodium Level: 143 Potassium Level: 3.7 BUN: 9.0 Creatinine Lvl (s): 0.71 08/24 04:38 WBC: 6.5 Hgb: 13.3 Hct: 40.4 Platelet: 135 L Neutrophil %: 45.2 L Glucose Level: 84 Sodium Level: 144 Potassium Level: 3.8 BUN: 21.0 Creatinine Lvl (s): 0.75 Assessment/Plan Altered mental status Poor oral intake History of bipolar disorder History of autism History of MRDD At presentation patient afebrile and otherwise hemodynamically stable. She was mildly tachycardic at presentation with a heart rate of 107. Initial urinalysis with hematuria but no signs of infection. Ammonia level, lactic acid, B12, and TSH within normal limits. Troponin negative x1. Chest x-ray at presentation limited by positioning but otherwise unremarkable. Patient received 1 L normal saline bolus in the ER. Patient's facility had been concerned regarding her psychiatric medications affecting her mental status. Psychiatry evaluated patient during hospitalization no concern regarding patient's psychiatric medications and does not appear to be acute psychosis. Patient has undergone further work-up for altered mental status. CT head demonstrates no acute intracranial abnormality. CT abdomen/pelvis demonstrates bladder wall thickening suspicious for cystitis. Correlation with urinalysis recommended. Initial urinalysis was unremarkable but will complete repeat urinalysis to ensure uri nary tract infection is not contributing to mental status. Patients mother indicates that he has a few episodes where she was considered catatonic and regressed potentially once a year. In the lastyear it was more often perhaps 3 times total. Prior episodes have lasted a few days and up to 1-2 weeks. Patient's mother notes that prior episodes were never this severe. Patient previously seen by neurology as an outpatient. She has previously been worked up for Parkinson's disease as well as a seizure disorder. Patient is currently on carbidopa levodopa as well as Depakote though unclear if Depakote is for for the purpose of seizure disorder discussion with patient's mother. On further discus tita with patients mother, will complete MRI brain and ask neurology to se her. Time Spent >50 minutes. Discussed at length with patients mother Shirley at [phone] Digitally Signed by SHELTON LYNNE MD on 08/25/2022 07:48 PM Digitally Signed by SHELTON LYNNE MD on 08/25/2022 07:52 PM [id number] Nurse Progress note patient refuses to make arm straight for IV flush and continuous infusion. charge nurse informed and will discuss with physician for further orders due to pt condition and cognitive ability Digitally Signed by Caroline Read LPN on 08/25/2022 10:41 AM [facility] [id number] Note ORIGINAL EXAMINATION: CT OF THE ABDOMEN AND PELVIS WITH CONTRAST 08/24/2022 9:49 pm TECHNIQUE: CT of the abdomen and pelvis was performed with the administration of intravenous contrast. Multiplanar reformatted images are provided for review. Automated exposure control, iterative reconstruction, and/or weight based adjustment of the mA/kV was utilized to reduce the radiation dose to as low as reasonably achievable. COMPARISON: CT abdomen and pelvis on 07/15/2021 HISTORY: ORDERING SYSTEM PROVIDED HISTORY: Reason for Exam: Abd pain FINDINGS: Lower Chest: No acute findings. Organs: The liver, pancreas, spleen, adrenal glands, and kidneys show no sign of acute abnormality. GI/Bowel: There is no intestinal obstruction or inflammation. Diverticulosis of the colon is present with no signs of diverticulitis. The appendix is normal. No abnormal fluid or gas collection is present in the abdomen. Pelvis: Urinary bladder is partly distended. There is diffuse bladder wall thickening that is greater than expected even for under distension of the bladder. No stones are present in the urinary bladder. Uterus and adnexal structures are unremarkable. There is no abnormal fluid collection in the pelvis. Peritoneum/Retroperitoneum: Abdominal aorta is normal in diameter. There is no retroperitoneal lymph node enlargement. Bones/Soft Tissues: No acute findings. IMPRESSION: Bladder wall thickening suspicious for cystitis. Correlation with urinalysis is recommended. No other sign of acute abnormality. Interpreted by: Shayan Dailey MD Preliminary Report By: Shayan Dailey MD Electronically signed By Shayan Dailey MD Dictated Date: 08/25/2022 12:50:22 AM Prelim Date: 08/25/2022 12:55:39 AM Sign Date: 08/25/2022 12:55:39 AM Ordering Provider: SHELTON LYNNE [facility] [id number] Note ORIGINAL EXAMINATION: CT OF THE HEAD WITHOUT CONTRAST 08/24/2022 9:42 pm TECHNIQUE: CT of the head was performed without the administration of intravenous contrast. Automated exposure control, iterative reconstruction, and/or weight based adjustment of the mA/kV was utilized to reduce the radiation dose to as low as reasonably achievable. COMPARISON: CT head December 19, 2015 HISTORY: ORDERING SYSTEM PROVIDED HISTORY: Reason for Exam: *BEST OBTAINABLE STUDY. PT HAS LIMITED MENTAL CAPACITY AND CAN NOT FOLLOW COMMANDS FOR POSITIONING.* AMS FINDINGS: BRAIN/VENTRICLES: There is no acute intracranial hemorrhage, mass effect or midline shift. No abnormal extra-axial fluid collection. The maldonado-white differentiation is maintained without evidence of an acute infarct. There is no evidence of hydrocephalus. ORBITS: The visualized portion of the orbits demonstrate no acute abnormality. SINUSES: The visualized paranasal sinuses and mastoid air cells demonstrate no acute abnormality. SOFT TISSUES/SKULL: No acute abnormality of the visualized skull or soft tissues. IMPRESSION: No acute intracranial abnormality. Interpreted by: Leigha Xavier Preliminary Report By: Leigha Xavier Electronically signed By Leigha Xavier Dictated Date: 08/25/2022 12:46:35 AM Prelim Date: 08/25/2022 12:47:52 AM Sign Date: 08/25/2022 12:47:52 AM Ordering Provider: [facility] Note ORIGINAL EXAMINATION: CT OF THE ABDOMEN AND PELVIS WITH CONTRAST 08/24/2022 9:49 pm TECHNIQUE: CT of the abdomen and pelvis was performed with the administration of intravenous contrast. Multiplanar reformatted images are provided for review. Automated exposure control, iterative reconstruction, and/or weight based adjustment of the mA/kV was utilized to reduce the radiation dose to as low as reasonably achievable. COMPARISON: CT abdomen and pelvis on 07/15/2021 HISTORY: ORDERING SYSTEM PROVIDED HISTORY: Reason for Exam: Abd pain FINDINGS: Lower Chest: No acute findings. Organs: The liver, pancreas, spleen, adrenal glands, and kidneys show no sign of acute abnormality. GI/Bowel: There is no intestinal obstruction or inflammation. Diverticulosis of the colon is present with no signs of diverticulitis. The appendix is normal. No abnormal fluid or gas collection is present in the abdomen. Pelvis: Urinary bladder is partly distended. There is diffuse bladder wall thickening that is greater than expected even for under distension of the bladder. No stones are present in the urinary bladder. Uterus and adnexal structures are unremarkable. There is no abnormal fluid collection in the pelvis. Peritoneum/Retroperitoneum: Abdominal aorta is normal in diameter. There is no retroperitoneal lymph node enlargement. Bones/Soft Tissues: No acute findings. IMPRESSION: Bladder wall thickening suspicious for cystitis. Correlation with urinalysis is recommended. No other sign of acute abnormality. Interpreted by: Shayan Dailey MD Preliminary Report By: Shayan Dailey MD Electronically signed By Shayan Dailey MD Dictated Date: 08/25/2022 12:50:22 AM Prelim Date: 08/25/2022 12:55:39 AM Sign Date: 08/25/2022 12:55:39 AM Ordering Provider: [facility]02-07-2023 Note ORIGINAL EXAMINATION: CT OF THE HEAD WITHOUT CONTRAST 08/24/2022 9:42 pm TECHNIQUE: CT of the head was performed without the administration of intravenous contrast. Automated exposure control, iterative reconstruction, and/or weight based adjustment of the mA/kV was utilized to reduce the radiation dose to as low as reasonably achievable. COMPARISON: CT head December 19, 2015 HISTORY: ORDERING SYSTEM PROVIDED HISTORY: Reason for Exam: *BEST OBTAINABLE STUDY. PT HAS LIMITED MENTAL CAPACITY AND CAN NOT FOLLOW COMMANDS FOR POSITIONING.* AMS FINDINGS: BRAIN/VENTRICLES: There is no acute intracranial hemorrhage, mass effect or midline shift. No abnormal extra-axial fluid collection. The maldonado-white differentiation is maintained without evidence of an acute infarct. There is no evidence of hydrocephalus. ORBITS: The visualized portion of the orbits demonstrate no acute abnormality. SINUSES: The visualized paranasal sinuses and mastoid air cells demonstrate no acute abnormality. SOFT TISSUES/SKULL: No acute abnormality of the visualized skull or soft tissues. IMPRESSION: No acute intracranial abnormality. Interpreted by: Leigha Xavier Preliminary Report By: Leigha Xavier Electronically signed By Leigha Xavier Dictated Date: 08/25/2022 12:46:35 AM Prelim Date: 08/25/2022 12:47:52 AM Sign Date: 08/25/2022 12:47:52 AM Ordering Provider: [facility]02-07-2023 Note Date of Service August 24, 2022 Chief Complaint Altered mental status Subjective 47-year-old female with past medical history significant for bipolar disorder, autism, MRDD who presented initially on 08/23 with altered mental status and poor oral intake. At baseline patient is ableto perform most ADLs independently and was able to carry on a conversation. In the last several days prior to presentation patient was not eating or drinking and was not taking her medications. Patient was sent in for further evaluation. On my evaluation today, patient remains confused. She was able to eat breakfast today. When asked orientation questions on my evaluation patient states I don't know. When asked to follow simple commands including squeezing my hand moving her bilateral upper and lower extremities patient does notfollow commands and states no. Psychiatry earlier it looks like she was able to answer her name and that she was at the hospital but otherwise was confused. When asked if patient is having any painshe says yes but unable to elaborate however on exam she does indicate tenderness on palpation of the abdomen. No other acute events overnight. Objective Vitals and Measurements T: 37.0 C (Oral) TMIN: 36.7 C (Oral) TMAX: 37.0 C (Oral) HR: 89 RR: 16 BP: 95/55 SpO2: 98% Intake and Output 7AM Yesterday to 7AM Today Intake and Output (Last 24 hours) Intake Output Total Summary Total Intake 0.00 Total Output 0.00 Fluid Balance 0.00 Physical Exam General Appearance: Alert, pleasantly confused Head: Normocephalic, atraumatic EENT: PERRLA, EOMI. Neck: Supple, no JVD Cardiac: Regular rate and rhythm. Normal S1/S2. No murmurs appreciated. Lungs: Lungs clear to auscultation bilaterally. No rhonchi, wheezing, or rales appreciated. Abdomen: Soft, mild diffuse tenderness on palpation, no guarding or rigidity, nondistended. BS *4. Extremities: No LE edema. Neurological: Alert, pleasantly confused, not following commands, answers minimal questions Skin: No excoriations, lacerations No qualifying data available. Medications Medications (11) Active Scheduled: (8) carbidopa-levodopa 25 mg-100 mg Tablet 1 tab(s), Oral, TID divalproex (Depakote ER) sodium 500 mg ER tablet 500 mg 1 tab(s), Oral, BID divalproex (Depakote Sprinkles) sodium 125 mg EC capsule 125 mg 1 cap(s), Oral, qDay heparin 5,000 units/mL (1 mL) vial 5,000 unit(s) 1 mL, Subcutaneous, q8h LORAZEPam 1 mg Tablet 1 mg 1 tab(s), Oral, qDay LORAZEPam 1 mg Tablet 2 mg 2 tab(s), Oral, BID montelukast 10 mg Tablet 10 mg 1 tab(s), Oral, qPM traZODONE 150 mg Tablet 150 mg 1 tab(s), Oral, qHS Continuous: (1) NS (0.9% nacl) 1,000 mL 1,000 mL, Intravenous, 100 mL/hr PRN: (2) acetaminophen 325 mg Tablet 650 mg 2 tab(s), Oral, q4h ondansetron 2 mg/ 1 mL 2 mL INJ 4 mg 2 mL, IV Push, q4h Lab Results 08/24 04:38 WBC: 6.5 Hgb: 13.3 Hct: 40.4 Platelet: 135 L Neutrophil %: 45.2 L Glucose Level: 84 Sodium Level: 144 Potassium Level: 3.8 BUN: 21.0 Creatinine Lvl (s): 0.75 08/23 12:02 WBC: 9.2 Hgb: 14.8 Hct: 44.9 Platelet: 146 L Neutrophil %: 54.8 Glucose Level: 88 Sodium Level: 145 Potassium Level: 4.2 BUN: 19.0 Creatinine Lvl (s): 0.77 Assessment/Plan Altered mental status Poor oral intake History of bipolar disorder History of autism History of MRDD At presentation patient afebrile and otherwise hemodynamically stable. She was mildly tachycardic at presentation with a heart rate of 107. Urinalysis with hematuria. Ammonia level, lactic acid, B12,and TSH within normal limits. Troponin negative x1. Chest x-ray at presentation limited by positioning but otherwise unremarkable. Patient received 1 L normal saline bolus in the ER. Patient's facility had been concerned regarding her psychiatric medications affecting her mental status. Psychiatry evaluated patient during hospitalization. They indicated patients with mental status did not appear to be due to her underlying bipolar disorder. Patient is psychiatrically stable to be transferred back to her shelter. Patient continues to have altered mental status with unclear etiology. Work-up thus far has been unremarkable. No signs of infection on urinalysis and chest x- ray. Patient's lactic acid, ammonia, TSH, and B12 within normal limits. Patient remains confused at this time. She does endorse some abdominal discomfort but otherwise has no concerns at this time. I have ordered CT head and CT abdomen/pelvis to complete further work-up. Time Spent >25 minutes with >50% of the time spent counseling patient and/or coordinating care. Discussed plan of care with patient and nursing. Digitally Signed by SHELTON LYNNE MD on 08/24/2022 10:48 AM [id number] Consult note Chief complaint change in mental status History of present illness 47-year-old female admitted after becoming confused at her shelter inaddition to poor oral intake. I evaluated this patient in the presence of her one-to-one sitter. Patient was awake and alert. She was able to tell me her first name. She knew that she was in a hospital. She is currently not agitated nor aggressive. There is no evidence of auditory or visual hallucinations. She does not appear to be paranoid nor delusional. She does deny suicidal thoughts. Her one-to-one sitter states that she ate her entire breakfast including pancakes, eggs and sausage. In addition, he states that she has had 3 full glasses of water this morning. Past psychiatric history patient carries a diagnosis of bipolar disorder as well as autism, per chart review Social history this patient lives in a shelter. She states that she is single and has no children. She denies a drug and alcohol use. Mental status exam at the time of this evaluation, this patient is awake and alert. She was able totell me her name and location. Her affect is dull. She currently does not appear to be psychotic. She does deny suicidal thoughts. Her judgment and insight are poor. Speech is presented in a decreased tone as well as decreased pace Diagnostic impression delirium. Bipolar disorder and autism, per chart documentation. Treat recommendation #1 there is no indication to change her psychiatric medication. It does not appear that her current episode of delirium was due to her underlying bipolar disorder. #2 patient is psychiatrically stable to be transferred back to her shelter when she is medically cleared. Digitally Signed by LUCI MATSON MD on 08/24/2022 10:07 AM [id number] History and physical note Date of Service 08/23/2022 Chief Complaint Pt. caregivers from the shelter state that the pt. has not been eating or drinking for a few days and has not been herself History of Present Illness Patient is 46-year-old female with past medical history significant for autism spectrum disorder, MRDD, bipolar disorder, psychosis, impulse control disorder who is a shelter resident brought to [facility] due to concerns for poor oral intake, increasing confusion than her baseline and weakness for last few days. History was taken from shelter staff Marianela present at bedside. They mentioned that at her baseline, she is able to to perform ADLs independently mostly and able to carry conversation however for last few days, she is declining taking her pills, seem more confused and not been herself. She is declining to eat or drink anything for the last 2 days. They did mention that, she does experience agitation and confusion usually when she had UTI in the past. She is incontinent at her baseline however sometimes able to sit on toilet when reminded. No recent fall or injury reported.No changes in her medication or exposure to sick contacts reported. No seizure-like activity reported. She does see psychiatry at [facility]. She is on multiple psychiatric medications and does havestiffness in her muscles that is actually for last few years. She did not have any fever, rigors orchills. Patient herself was not able to answer my questions however she was able to tell her name. Due to concern for her poor oral intake and confusion, she was brought to ER as they were concerned that she will need medication adjustment. As per shelter staff, she did seem a little better after she received IV fluids. On presentation, she was tachycardic that did improve with IV fluids. Lab work including CBC unremarkable except low platelet count at 1 46,000. BMP did not show any significant abnormality except for mildly elevated BUN/creatinine ratio 24.0. Initial troponin unremarkable. UA did show RBCs but no significant pyuria, nitrate negative and trace leukocyte esterase. EKG had multiple artifacts. Psychiatry was consulted in the ER however not able to evaluate today. Patient was offered food in the ERand due to concern for poor oral intake and dehydration, hospitalist team was contacted for furtherevaluation and observation overnight. Review of Systems Unable to obtain detailed review of system due to patient's underlying MRDD. Pertinent positive andnegative mentioned in HPI. Physical Exam Vitals and Measurements T: 36.7 C (Oral) HR: 91(Monitored) RR: 17 BP: 120/52 SpO2: 96% No qualifying data available. General: Patient is not in acute distress Neck: Supple, No JVD HEENT: Normocephalic, atraumatic, no lipsmacking noticed Cardiac: Regular rate and rhythm, S1 and S2 present, no murmurs, rubs, or gallops appreciated Lungs: Clear to auscultation bilaterally, no wheezes, rhonchi, or rales appreciated Abdomen: Bowel sounds audible, abdomen is soft, nontender, non-distended, no rigidity or rebound tenderness noticed Musculoskeletal: Upper and lower extremity stiffness noticed, moves all 4 extremities spontaneously Extremities: No clubbing or cyanosis, pitting edema Skin: Warm, well perfused, no bruises Neurological: Alert but confused, No gross focal neurological deficits Lab Results 08/23 12:02 WBC: 9.2 Hgb: 14.8 Hct: 44.9 Platelet: 146 L Neutrophil %: 54.8 Glucose Level: 88 Sodium Level: 145 Potassium Level: 4.2 BUN: 19.0 Creatinine Lvl (s): 0.77 Imaging Results and Diagnostics XR Chest 1 View Result Date: August 23, 2022 Verified By: SEFERINO MCKEON MD CLINICAL STATEMENT: IMPRESSION: Limited by positioning, otherwise unremarkable. EKG EC08/23/22: SECOND DEGREE AV BLOCK, MOBITZ II...multiple P waves VENTRICULAR BIGEMINY...bigeminy string>4 w/ V complexes PROBABLE LEFT VENTRICULAR HYPERTROPHY...(RaVL+SV3)xQRSd >300 LATERAL INFARCT, AGE INDETERMINATE...Q>35mS, T neg, V5-V6 I aVL PROLONGED QT INTERVAL...QTc >510mS Electronic Signature: REJI JONI Magaly [place] 08/23/2022 14:08:20 Assessment/Plan Acute confusion Dehydration Poor oral intake Bipolar disorder Psychosis Thrombocytopenia Autism spectrum disorder DVT prophylaxis CODE STATUS Plan: Patient presented with acute confusion as compared to her baseline, poor oral intake and dehydration. Work-up in the ER so far did not show any electrolyte abnormality. UA did not show any significant pyuria. CBC with no significant leukocytosis. Patient is afebrile. Valproic acid level 18.1. Indication for antibiotics at this point. Patient does have baseline muscle rigidity and stiffness that is not new, likely secondary to extrapyramidal symptoms of antipsychotics in the past? Patient does not seem to be on antipsychotics currently. No myoclonus or hyperreflexia noted. Patient will definitely benefit from psychiatric evaluation and might require medical optimization,hence psychiatry has already been consulted. Meanwhile, we will order TSH, B12 level, urine drug screen, ammonia level to look for reversible organic cause. Given her significant oral intake, continue IV fluid resuscitation overnight. As per shelter staff, patient does seem to be improving with IV fluids in the ER. Continue to monitor for oral intake and started on regular diet. Continue her psychiatric medication until evaluation by psychiatry. DVT prophylaxis with heparin subcu Plan discussed with shelter staff Marianela at bedside. Answered all of their questions. Problem List/Past Medical History Ongoing Autism Bipolar disorder H/O scoliosis History of psychosis Mental deficiency Historical No qualifying data Procedure/Surgical History None Medications Home Medications (10) Active Cogentin 1 mg oral tablet 1.5 mg = 1.5 tab(s), Oral, BID Depo-Provera Ditropan XL 10 mg/24 hr oral tablet, extended release 10 mg = 1 tab(s), Oral, qDay divalproex sodium gabapentin LORazepam risperiDONE traZODone traZODone 50 mg oral tablet 75 mg = 1.5 tab(s), Oral, qHS Vitamin D3 Allergies NKA Social History Smoking Status - 03/24/2018 Never smoker Alcohol - Denies Alcohol Use, 09/15/2017 Use: Never., 08/07/2019 Substance Abuse - Denies Substance Abuse, 09/15/2017 Use: Never., 07/15/2021 Tobacco - Denies Tobacco Use, 07/02/2018 Nicotine Use: Never (less than 100 in lifetime)., 08/07/2019 Immunizations tetanus/diphth/pertuss (Tdap) adult/adol: 0.5 mL (07/03/22) Code Status Code Status - Ordered -- 08/23/22 14:35:00 EST, Full Code, Constant Order Digitally Signed by FRANSISCO PERRY MD on 08/23/2022 04:11 PM [facility] [id number] Evaluation + Plan noteExtracted from: Title:History and Physical Author:FRANSISCO PERRY MD Date:08/23/22 Acute confusion Dehydration Poor oral intake Bipolar disorder Psychosis Thrombocytopenia Autism spectrum disorder DVT prophylaxis CODE STATUS Plan: Patient presented with acute confusion as compared to her baseline, poor oral intake and dehydration. Work-up in the ER so far did not show any electrolyte abnormality. UA did not show any significant pyuria. CBC with no significant leukocytosis. Patient is afebrile. Valproic acid level 18.1. Indication for antibiotics at this point. Patient does have baseline muscle rigidity and stiffness that is not new, likely secondary to extrapyramidal symptoms of antipsychotics in the past? Patient does not seem to be on antipsychotics currently. No myoclonus or hyperreflexia noted. Patient will definitely benefit from psychiatric evaluation and might require medical optimization, hence psychiatry has already been consulted. Meanwhile, we will order TSH, B12 level, urine drug screen, ammonia level to look for reversible organic cause. Given her significant oral intake, continue IV fluid resuscitation overnight. As per shelter staff, patient does seem to be improving with IV fluids in the ER. Continue to monitor for oral intake and started on regular diet. Continue her psychiatric medication until evaluation by psychiatry. DVT prophylaxis with heparin subcu Plan discussed with shelter staff Marianela at bedside. Answered all of their questions. [facility] 02-[facility] Note ORIGINAL HISTORY: Confusion COMPARISON: 08 April 2020 FINDINGS: The study is limited by positioning. The right apex is not evaluated. Otherwise, the lungs are clear. The pulmonary vasculature is unremarkable in appearance. IMPRESSION: Limited by positioning, otherwise unremarkable. Interpreted by: Seferino Mckeon MD Preliminary Report By: Seferino Mckeon MD Electronically signed By Seferino Mckeon MD Dictated Date: 08/23/2022 11:49:40 AM Prelim Date: 08/23/2022 11:50:16 AM Sign Date: 08/23/2022 11:50:16 AM Ordering Provider: [facility]02-06-2023 Note ORIGINAL HISTORY: Confusion COMPARISON: 08 April 2020 FINDINGS: The study is limited by positioning. The right apex is not evaluated. Otherwise, the lungs are clear. The pulmonary vasculature is unremarkable in appearance. IMPRESSION: Limited by positioning, otherwise unremarkable. Interpreted by: Seferino Mckeon MD Preliminary Report By: Seferino Mckeon MD Electronically signed By Seferino Mckeon MD Dictated Date: 08/23/2022 11:49:40 AM Prelim Date: 08/23/2022 11:50:16 AM Sign Date: 08/23/2022 11:50:16 AM Ordering Provider: [facility]12-29-2021 Hospital Discharge instructions Patient Education 07/15/2021 20:00:39 DEHYDRATION (6y-Adult) Dehydration (Adult) Dehydration occurs when your body loses too much fluid. This may be the result of vomiting a lot orfrom diarrhea, sweating a lot, or a high fever. It may also happen if you don t drink enough fluid when you re sick. Misuse of diuretics (water pills) can also be a cause. Symptoms include thirst and feeling dizzy, weak, fatigued, or very drowsy. The diet described belowis usually enough to treat most cases. Sometimes you may need medicine. Home care Follow these guidelines for home care: Drink at least 12 8-ounce glasses of fluid every day to overcome the dehydration. Fluid may includewater; orange juice; lemonade; apple, grape, and cranberry juice; clear fruit drinks; electrolyte replacement and sports drinks; and teas and coffee without caffeine. If you have been diagnosed with a kidney disease, ask your doctor how much and what types of fluids you should drink to prevent dehydration. If you have kidney disease, drinking too much fluid can cause it build up in the your body and be dangerous to your health. If you have fever, muscle aching, or headache from a viral syndrome, you may use acetaminophen or ibuprofen, unless another medicine was prescribed for this. If you have chronic liver or kidney disease or ever had a stomach ulcer or GI bleeding, talk with your doctor before using these medicines. Don't take aspirin if you are younger than 18 and are ill with a fever. Aspirin raises the chance forsevere liver injury. Follow-up care Follow up with your health care provider if you don't get better in the next 24 to 48 hours. When to seek medical advice Call your health care provider right away if any of these occur: Continued vomiting (can t keep liquids down) Frequent diarrhea (more than 5 times a day); blood (red or black color) or mucus in diarrhea Blood in vomit or stool Swollen abdomen or increasing abdominal pain Weakness, dizziness, or fainting Unusually drowsy or confused Reduced urine output or extreme thirst Fever of 100.4 F (38 C) oral or higher that does not get better with fever medication [id number] [employer]. [address] [place] [address]. All rights reserved. This information is not intended as a substitute for professional medical care. Always follow yourwil[facility] hospitalcare professional's instructions. 07/15/2021 20:00:35 Abdominal Pain, Unknown Cause, (Female) Unknown Causes of Abdominal Pain (Female) The exact cause of your belly (abdominal) pain is not clear. This does not mean that this is something to worry about. Everyone likes to know the exact cause of the problem. But sometimes with belly pain, there is no clear-cut cause, and this could be a good thing. The good news is that your symptoms can be treated, and you will feel better. Your condition does not seem serious now. But sometimes the signs of a serious problem may take more time to appear. For this reason, it is important for you to watch for any new symptoms, problems, or worsening of your condition. Over the next few days, the abdominal pain may come and go. Or it may be constant. Other common symptoms can include nausea and vomiting. Sometimes it can be difficult to tell if you feel nauseous. You may just feel bad and not connect that feeling to nausea. Constipation, diarrhea, and a fever maygo along with the pain. The pain may continue even if treated correctly over the following days. Depending on how things go, sometimes the cause can become clear and may need more or different treatment. Additional evaluations, medicines, or tests may also be needed. Home care Your healthcare provider may prescribe medicine for pain, symptoms, or an infection. Follow the healthcare provider's instructions for taking these medicines. General care Rest as much as you can until your next exam. No strenuous activities. Try to find positions that ease discomfort. A small pillow placed on the abdomen may help relieve pain. Something warm on your abdomen (such as a heating pad) may help, but be careful not to burn yourself. Diet Don t force yourself to eat, especially if having cramps, vomiting, or diarrhea. Water is important so you don't get dehydrated. Soup may also be good. Sports drinks may also help,especially if they are not too acidic. Don't drink sugary drinks as this can make things worse. Take liquids in small amounts. Don t guzzle them. Caffeine sometimes makes the pain and cramping worse. Don t take dairy products if you have vomiting or diarrhea. Don't eat large amounts at a time. Wait a few minutes between bites. Eat a diet low in fiber (called a low-residue diet). Foods allowed include refined breads, white rice, fruit and vegetable juices without pulp, tender meats. These foods will pass more easily throughthe intestine. Don t have whole-grain foods, whole fruits and vegetables, meats, seeds and nuts, fried or fatty foods, dairy, alcohol and spicy foods until your symptoms go away. Follow-up care Follow up with your healthcare provider, or as advised, if your pain does not begin to improve in the next 24 hours. Call 911 Call 911 if any of these occur: Trouble breathing Confusion Fainting or loss of consciousness Rapid heart rate Seizure When to seek medical advice Call your healthcare provider right away if any of these occur: Pain gets worse or moves to the right lower abdomen New or worsening vomiting or diarrhea Swelling of the abdomen Unable to pass stool for more than 3 days Fever of 100.4 F (38 C) or higher, or as directed by your healthcare provider. Blood in vomit or bowel movements (dark red or black color) Yellow color of eyes and skin (jaundice) Weakness, dizziness Chest, arm, back, neck, or jaw pain Unexpected vaginal bleeding or missed period Can't keep down liquids or water and you are getting dehydrated [id number] [employer]. [address] [place] [address], [place] [address]. All rights reserved. This information is not intended as a substitute for professional medical care. Always follow yourhealthcare professional's instructions. Follow Up Care 07/15/2021 10:19:57 With:DESIRAE ROSARIO Address: [address] [place] [id number] Business (1) When:2-4 days Comments:Schedule appointment as soon as possibleReturn to ED if symptoms worsenPedialyte only till am and if better increase to BRAT and then to normalStart 2 citrucel tabs daily [facility] 12-22-2021 Hospital Discharge instructions Patient Education 2021 20:21:02 Bladder Infection, Female (Adult) Bladder Infection, Female (Adult) Urine is normally doesn't have any bacteria in it. But bacteria can get into the urinary tract fromthe skin around the rectum. Or they can travel in the blood from elsewhere in the body. Once they are in your urinary tract, they can cause infection in the urethra (urethritis), the bladder (cystitis), or the kidneys (pyelonephritis). The most common place for an infection is in the bladder. This is called a bladder infection. This is one of the most common infections in women. Most bladder infections are easily treated. They are not serious unless the infection spreads to the kidney. The phrases bladder infection, UTI, and cystitis are often used to describe the same thing. But they are not always the same. Cystitis is an inflammation of the bladder. The most common cause of cystitis is an infection. Symptoms The infection causes inflammation in the urethra and bladder. This causes many of the symptoms. Themost common symptoms of a bladder infection are: Pain or burning when urinating Having to urinate more often than usual Urgent need to urinate Only a small amount of urine comes out Blood in urine Abdominal discomfort. This is usually in the lower abdomen above the pubic bone. Cloudy urine Strong- or bad-smelling urine Unable to urinate (urinary retention) Unable to hold urine in (urinary incontinence) Fever Loss of appetite Confusion (in older adults) Causes Bladder infections are not contagious. You can't get one from someone else, from a toilet seat, or from sharing a bath. The most common cause of bladder infections is bacteria from the bowels. The bacteria get onto the skin around the opening of the urethra. From there, they can get into the urine and travel up to thebladder, causing inflammation and infection. This usually happens because of: Wiping improperly after urinating. Always wipe from front to back. Bowel incontinence Procedures such as having a catheter inserted Older age Not emptying your bladder. This can allow bacteria a chance to grow in your urine. Dehydration Constipation Sex Use of a diaphragm for control Treatment Bladder infections are diagnosed by a urine test. They are treated with antibiotics and usually clear up quickly without complications. Treatment helps prevent a more serious kidney infection. Medicines Medicines can help in the treatment of a bladder infection: Take antibiotics until they are used up, even if you feel better. It is important to finish them tomake sure the infection has cleared. You can use acetaminophen or ibuprofen for pain, fever, or discomfort, unless another medicine was prescribed. If you have chronic liver or kidney disease, talk with your healthcare provider before using these medicines. Also talk with your provider if you've ever had a stomach ulcer or gastrointestinal bleeding, or are taking blood-thinner medicines. If you are given phenazopydridine to reduce burning with urination, it will cause your urine to become a bright orange color. This can stain clothing. Care and prevention These self-care steps can help prevent future infections: Drink plenty of fluids to prevent dehydration and flush out your bladder. Do this unless you must restrict fluids for other health reasons, or your doctor told you not to. Proper cleaning after going to the bathroom is important. Wipe from front to back after using the toilet to prevent the spread of bacteria. Urinate more often. Don't try to hold urine in for a long time. Wear loose-fitting clothes and cotton underwear. Avoid tight-fitting pants. Improve your diet and prevent constipation. Eat more fresh fruit and vegetables, and fiber, and less junk and fatty foods. Avoid sex until your symptoms are gone. Avoid caffeine, alcohol, and spicy foods. These can irritate your bladder. Urinate right after intercourse to flush out your bladder. If you use control pills and have frequent bladder infections, discuss it with your doctor. Follow-up care Call your healthcare provider if all symptoms are not gone after 3 days of treatment. This is especially important if you have repeat infections. If a culture was done, you will be told if your treatment needs to be changed. If directed, you cancall to find out the results. If X-rays were done, you will be told if the results will affect your treatment. Call 911 Call 911 if any of the following occur: Trouble breathing Hard to wake up or confusion Fainting or loss of consciousness Rapid heart rate When to seek medical advice Call your healthcare provider right away if any of these occur: Fever of 100.4 F (38.0 C) or higher, or as directed by your healthcare provider Symptoms are not better by the third day of treatment Back or belly (abdominal) pain that gets worse Repeated vomiting, or unable to keep medicine down Weakness or dizziness Vaginal discharge Pain, redness, or swelling in the outer vaginal area (labia) [id number] [employer]. [address] [place] [address]. All rights reserved. This information is not intended as a substitute for professional medical care. Always follow yourhealthcare professional's instructions. 2021 20:21:02 Bladder Infection, Female (Adult) Bladder Infection, Female (Adult) Urine is normally doesn't have any bacteria in it. But bacteria can get into the urinary tract fromthe skin around the rectum. Or they can travel in the blood from elsewhere in the body. Once they are in your urinary tract, they can cause infection in the urethra (urethritis), the bladder (cystitis), or the kidneys (pyelonephritis). The most common place for an infection is in the bladder. This is called a bladder infection. This is one of the most common infections in women. Most bladder infections are easily treated. They are not serious unless the infection spreads to the kidney. The phrases bladder infection, UTI, and cystitis are often used to describe the same thing. But they are not always the same. Cystitis is an inflammation of the bladder. The most common cause of cystitis is an infection. Symptoms The infection causes inflammation in the urethra and bladder. This causes many of the symptoms. Themost common symptoms of a bladder infection are: Pain or burning when urinating Having to urinate more often than usual Urgent need to urinate Only a small amount of urine comes out Blood in urine Abdominal discomfort. This is usually in the lower abdomen above the pubic bone. Cloudy urine Strong- or bad-smelling urine Unable to urinate (urinary retention) Unable to hold urine in (urinary incontinence) Fever Loss of appetite Confusion (in older adults) Causes Bladder infections are not contagious. You can't get one from someone else, from a toilet seat, or from sharing a bath. The most common cause of bladder infections is bacteria from the bowels. The bacteria get onto the skin around the opening of the urethra. From there, they can get into the urine and travel up to thebladder, causing inflammation and infection. This usually happens because of: Wiping improperly after urinating. Always wipe from front to back. Bowel incontinence Procedures such as having a catheter inserted Older age Not emptying your bladder. This can allow bacteria a chance to grow in your urine. Dehydration Constipation Sex Use of a diaphragm for control Treatment Bladder infections are diagnosed by a urine test. They are treated with antibiotics and usually clear up quickly without complications. Treatment helps prevent a more serious kidney infection. Medicines Medicines can help in the treatment of a bladder infection: Take antibiotics until they are used up, even if you feel better. It is important to finish them tomake sure the infection has cleared. You can use acetaminophen or ibuprofen for pain, fever, or discomfort, unless another medicine was prescribed. If you have chronic liver or kidney disease, talk with your healthcare provider before using these medicines. Also talk with your provider if you've ever had a stomach ulcer or gastrointestinal bleeding, or are taking blood-thinner medicines. If you are given phenazopydridine to reduce burning with urination, it will cause your urine to become a bright orange color. This can stain clothing. Care and prevention These self-care steps can help prevent future infections: Drink plenty of fluids to prevent dehydration and flush out your bladder. Do this unless you must restrict fluids for other health reasons, or your doctor told you not to. Proper cleaning after going to the bathroom is important. Wipe from front to back after using the toilet to prevent the spread of bacteria. Urinate more often. Don't try to hold urine in for a long time. Wear loose-fitting clothes and cotton underwear. Avoid tight-fitting pants. Improve your diet and prevent constipation. Eat more fresh fruit and vegetables, and fiber, and less junk and fatty foods. Avoid sex until your symptoms are gone. Avoid caffeine, alcohol, and spicy foods. These can irritate your bladder. Urinate right after intercourse to flush out your bladder. If you use control pills and have frequent bladder infections, discuss it with your doctor. Follow-up care Call your healthcare provider if all symptoms are not gone after 3 days of treatment. This is especially important if you have repeat infections. If a culture was done, you will be told if your treatment needs to be changed. If directed, you cancall to find out the results. If X-rays were done, you will be told if the results will affect your treatment. Call 911 Call 911 if any of the following occur: Trouble breathing Hard to wake up or confusion Fainting or loss of consciousness Rapid heart rate When to seek medical advice Call your healthcare provider right away if any of these occur: Fever of 100.4 F (38.0 C) or higher, or as directed by your healthcare provider Symptoms are not better by the third day of treatment Back or belly (abdominal) pain that gets worse Repeated vomiting, or unable to keep medicine down Weakness or dizziness Vaginal discharge Pain, redness, or swelling in the outer vaginal area (labia) [id number] [employer]. [address] [place] [address], [place] [address]. All rights reserved. This information is not intended as a substitute for professional medical care. Always follow yourhealthcare professional's instructions. Follow Up Care 2021 15:55:15 With:DESIRAE ROSARIO MD, [facility] Address: [address] When:2-4 days [facility] 12-22-2021 Evaluation + Plan note Diagnostic Tests Pending * Urine Culture 07/08/21 [facility] 12-21-2021 History of Present illness Narrative* Jason Abarca MD - 07/07/2021 2:00 PM EST DATE OF SERVICE: 07/03/2021 CHIEF COMPLAINT: Dysuria HISTORY OF PRESENT ILLNESS: A 45-year-old female presenting with dysuria, urinary frequency and confusion. She is MRDD. Unable to urinate in the last day and a half. ALLERGIES: None. MEDICATIONS: Patient is on: 1. Risperdal. 2. Ditropan. 3. Lorazepam. 4. Desyrel. 5. Cogentin. 6. Depakote. . 7 Neurontin. PHYSICAL EXAMINATION: Blood pressure 146/79, pulse 115, respiratory rate 18, temperature 98.4, pulse ox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 forearm Reason Comments Urinary Problem Burning with urinati on. 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 Head Injury And cheek on bed thi s morning. Reason Comments Head Injury Reason Comments Ear Problem B/l ear pain x3ays UTI Urinary frequency w odor x3 days No chance sti nor Reason Comments Earache Left ear pain Reason Comments New Patient Reason Comments Patient Update Reason Comments Earache Patient arrives to [facility] via private vehicle for ear pain. Patient did not take her medications this morning, mother states she thinks it's due to patient not feeling well. Patient is agitated during triage Reason Comments Abdominal Pain Pt c/o abdominal salena n x 3 days. No report of vomiting. Care provider states they were here Tuesday for same s/s. Pt also c/o bilat ear pain, runny nose. No cough Reason Comments Urinary Problem Pain with urination started today. Reason Comments Ear Pain Left ear and ear lob e pain since yesterday Reason Onset Date Comments Missed Appointment 05/07/2024 05/01/24 3:00 PM missed new patient appointment Scheduled Active and Recently Administ ered Medications (unrecognized section and content) Medication Order 08/09/2023 08/10/2023 08/11/2023 acetaminophen (Tylenol) tablet 650 mg (COMPLETED) 650 mg, Oral, Once, On Tia 08/11/23 at 1805, For 1 dose, Maximum dose of acetaminophen is 4000 mg from all sources in 24 hours. 1818 (Given - Provid er: Bimal Biard RN) Scheduled Medication Order 03/22/2024 03/23/2024 03/24/2024 LORazepam (Ativan) injection 2 mg (COMPLETED) 2 mg, IntraMUSCular, Once, On 03/24/24 at 2135, For 1 dose, For IV doses dilute dose with 1ml NS. 2134 (Given - Provid er: Matt Mix, TENA) midazolam (Versed) injection 2 mg (COMPLETED) 2 mg, IntraMUSCular, Once, On 03/24/24 at 2220, For 1 dose 2220 (Given - Provid er: Matt Mix RN) Scheduled Medication Order 03/24/2024 03/25/2024 03/26/2024 ketamine (Ketalar) injection 265 mg (COMPLETED) 265 mg (rounded from 263.2 mg = 4 mg/kg 65.8 kg), IntraMUSCular, Once, On 03/26/24 at 1220, For 1 dose, If ordered nasal, give 1/2 of dose in each nostril. If IM, give deeply into a large muscle mass. If ordered IV or GA, must dilute 1:1 prior to administration. 1248 (Given - Provid er: Trish Miranda RN - Comment: Patient given 2 injections into left deltoid by Don Tovar RN; 1.5ml and 1.15ml) midazolam (Versed) injection 2 mg (COMPLETED) 2 mg, IntraVENous, Once, On Tue03/26/24 at 1405, For 1 dose 1405 (Given - Provid er: Lupe Caal RN - Comment: given in CT) midazolam (Versed) injection 2.5 mg (COMPLETED) 2.5 mg, IntraMUSCular, Once, On Tue03/26/24 at 1130, For 1 dose 1145 (Given - Provid er: Juliette Tovar RN) sodium chloride 0.9 % bolus 1,000 mL (COMPLETED) 1,000 mL, IntraVENous, at 1,000 mL/hr, Administer over 1 Hours, Once, On Tue03/26/24 at 1130, For 1 dose 1309 (New Bag - Prov ider: Trish Miranda RN)1619 (Stopped - Provider: Lupe Caal RN) Continuous Medication Order 03/24/2024 03/25/2024 03/26/2024 sodium chloride 0.9 % infusion 125 mL/hr, IntraVENous, Continuous, Starting on Tue03/26/24 at 1130 1330 (New Bag - Prov ider: Lupe Caal RN)1620 (Stopped - Provider: Lupe Caal RN) Goals (unrecognized section and content) Goals may be documented in a n alternate section FOR RECORDS PERTAINING TO PATIENTS WHO ARE OR HAVE BEEN ENROLLED IN A CHEMICAL DEPENDENCY/SUBSTANCEABUSE PROGRAM, SOME INFORMATION MAY BE OMITTED. This clinical summary was aggregated from multiple sources. Caution should be exercised in using it in the provision of clinical care. This summary normalizes information from multiple sources, and as a consequence, information in this document may materially change the coding, format and clinical context of patient data. In addition, data may be omitted in some cases. CLINICAL DECISIONS SHOULD BE BASED ON THE PRIMARY CLINICAL RECORDS. [employer] provides no warranty or guarantee of the accuracy or completeness of information in this document.
--- NOTE | 2025-04-05 19:44 | EDS_ITS ---
HPI History of Present Illness Chief Complaint: General Illness Informant: SNF Limited: uncooperative and other (Mental status) Narrative Narrative: Patient is a 49-year-old female with history anxiety, encephalopathy, intellectual disability, bipolar disorder and autistic disorder who is a known x 1 at baseline and generally only responds with yes no answers. She is presenting from [facility] for increased agitation and refusing medications. Per nursing reports she has been combative all day and has been yelling out since 4 AM. She has been refusing her Ativan. Was brought in for further evaluation. No report of any falls or injuries. No report of any fevers. No other complaints or concerns at this time. [facility] Medical History Encephalopathy Generalized anxiety disorder Other symbolic dysfunctions Rhabdomyolysis Need for assistance with personal care Difficulty walking Seasonal allergic rhinitis GERD without esophagitis Dysphagia, oropharyngeal Convulsions Muscle weakness Atrial fibrillation Orthostatic hypotension Intellectual disability Bipolar disorder Autistic disorder Thrombocytopenia Polycythemia vera Home Medications ?Medication ?Instructions ?Recorded ?Last Taken ?Type amantadine HCl 100 mg capsule 100 mg PO BID 12/25/24 U nknown History aspirin 81 mg chewable tablet 1 tab PO DAILY 12/25/24 Unknown History atropine 1 % eye drops 2 drp sublingual BID 5 Unknown History cholecalciferol (vitamin D3) 50 50 mcg PO DAILY Unknown History mcg (2,000 unit) capsule (Vitamin D3) divalproex 500 mg tablet,delayed 500 mg PO BID 5 Unknown History release fludrocortisone 0.1 mg tablet 0.2 mg PO BID 12/25/24 U nknown History fluoride (sodium) 1.1 % dental gel 1 applic dental QHS 12/25/24 Unknown History (DentaGel) loperamide 2 mg capsule 2 mg PO Q8H PRN loose stool 12/25/24 Unknown History (Anti-Diarrheal (loperamide)) midodrine 5 mg tablet 10 mg PO BID 12/25/24 Unknow n History montelukast 10 mg tablet 10 mg PO DAILY 12/25/24 Unkn own History pantoprazole 40 mg tablet,delayed 40 mg PO DAILY 12/25 Unknown History release polyethylene glycol 3350 17 17 g PO DAILY PRN constipa tion 12/25/24 Unknown History gram/dose oral powder (ClearLax) trazodone 50 mg tablet 50 mg PO QHS 12/25/24 Unknow n History acetaminophen 325 mg tablet 650 mg PO Q4H PRN 03/05/25 Unknown History docusate sodium 100 mg capsule 100 mg PO DAILY PRN Unknown History (Colace) lorazepam 0.5 mg tablet 0.5 mg PO BID 03/05/25 Unkno wn History melatonin 5 mg chewable tablet 5 mg PO QHS PRN 5 Unknown History Allergy/AdvReac Type Severity Reaction Status Date / Time No Known Allergies Allergy Verified 04/05/25 18:49 Social History Smoking Status: Never smoker ROS ROS ED Review of Systems ROS Unobtainable: due to mental status EXAM Physical Exam Const Vital Signs: 04/05/25 18:49 04/05/25 22:12 04/05/25 23:11 Temperature 96.4 F L 97.9 F Temperature Source Temporal Axillary Pulse Rate 101 H 84 Respiratory Rate 18 16 Respiratory Effort Normal Non-Labored Blood Pressure 95/67 114/79 Blood Pressure Mean 76 90 Pulse Ox 92 99 Oxygen Delivery Method Room Air Room Air 04/05/25 23:49 Temperature Temperature Source Pulse Rate 88 Respiratory Rate 16 Respiratory Effort Blood Pressure 99/65 Blood Pressure Mean 76 Pulse Ox 100 Oxygen Delivery Method Room Air Constitutional Narrative: Rocking on the bed [id number]. Shouting no at me. HEENT Reports dry mucous membranes HEENT Narrative: Bilateral cerumen impaction, normal oropharynx Mouth ED: Yes dry mucous membranes Mouth: dry mucous membranes Eyes PERRL Chest Wall inspection of chest normal and palpation of chest normal Resp normal respiratory effort and clear to auscultation bilaterally Cardio regular rhythm Rate: tachycardic GI normal to inspection, nondistended, normoactive bowel sounds and non-tender Extremity Extremity Narrative: Legs flexed at the knees and hips, not really moving them, Neuro Neuro Narrative: Oriented to self, only shouts no. Sensorium / Orientation: alert and orientation impaired Motor Exam: general weakness Psych Attitude: agitated Skin no rashes or lesions noted and no wounds MDM MDM MDM Narrative Medical decision making narrative: Patient evaluated for increased agitation and has not been eating and drinking. This has been going on since 4 AM this morning but mother is not at bedside states that she is not only been eating or drinking much over the past few days. Is known for urinary tract infections. Actually saw the neurologist yesterday. Has had general decline over the past 6 months or so and went from walking and conversing while living in a senior care to not walking, speaking and now at [facility] in the nursing facility. They are not entirely sure why she has had such a decline. She has had a relatively thorough workup for this at [facility]. Patient is quite agitated upon arrival. Was given IM Geodon and then given IM Haldol/Ativan. She has improved and then becomes more cooperative. Mother states after the second round of medication she is actually starting to talk more. Mother states has not been sleeping the last few days. CBC and BMP largely normal. Urinalysis obtained to straight cath is consistent with urinary tract infection with 500 leukocyte esterase, 10-25 white blood cells and 1+ bacteria. Urine culture sent and she started on IV Rocephin. Patient is given initially 500 cc of fluid and then an additional saline 500 cc bolus. She clinically appears dehydrated, has 50 ketones in her urine and her bicarb is at 18.5 with an anion gap of 16. I suspect this is all consistent with dehydration. As patient is not eating and drinking I do not think she reliably be able to take antibiotics at this time. Will be admitted for IV fluids and IV antibiot ics. Mother is agreeable this plan of care. Case discussed with hospitalist for admission. Lab Data Attestation: I reviewed the patient's lab results. Labs: Laboratory Results - last 24 hr 04/05/25 04/05/25 21:48 23:00 WBC 8.4 RBC 5.04 Hgb 15.5 H Hct 45.4 MCV 90.1 MCH 30.8 MCHC 34.1 RDW Std Deviation 42.5 RDW Coeff of Russell 13.0 Plt Count 227 MPV 9.9 Immature Gran % (Auto) 0.500 Neut % (Auto) 51.3 Lymph % (Auto) 37.3 [place] % (Auto) 9.0 Eos % (Auto) 1.4 Baso % (Auto) 0.5 Absolute Neuts (auto) 4.3 Absolute Lymphs (auto) 3.14 Nucleated RBC % 0 Sodium 141 Potassium 3.4 Chloride 107 Carbon Dioxide 18.5 L Anion Gap 16 H BUN 15 Creatinine 0.62 L Estim Creat Clear Calc 106.60 Est GFR (MDRD) Non-Af 110 BUN/Creatinine Ratio 24.3 H Glucose 88 Calcium 9.8 Total Creatine Kinase 142 Urine Color Yellow Urine Clarity Sl. Cloudy Urine pH 6.0 Ur Specific [place] 1.030 Urine Protein 30 H Urine Glucose (UA) Normal Urine Ketones 50 H Urine Occult Blood 10 H Urine Nitrite Negative Urine Bilirubin Negative Urine Urobilinogen Normal Ur Leukocyte Esterase 500 H Urine RBC 0 SEEN Urine WBC 10-25 SEEN Ur Squamous Epith Cells 0-5 SEEN Urine Bacteria 1+ Urine Mucus 0 SEEN Radiography Diagnostic Testing: Clinical Impression(s) from Imaging Studies Chest X-Ray 04/05/25 22:20 IMPRESSION: No Acute Findings. Reading Location: [facility] Rhythm Strip Rhythm Strip: Sinus Rhythm Rate: 88 Ectopy: None EKG Initial EKG: Attestation: I personally reviewed and interpreted this EKG as follows: Interpretation: Sinus Rhythm Comments: Normal sinus rhythm at a rate of 88 bpm Normal axis Normal intervals Normal ST segment Management Discussion w/another healthcare provider: Hospitalist Discharge Plan Triage Chief Complaint: General Illness ED Provider: Eunice Nagel Dx/Rx/DC Orders Clinical Impression: Encephalopathy, Urinary tract infection, Dehydration Prescriptions: No Action acetaminophen 325 mg tablet 650 mg PO Q4H PRN lorazepam 0.5 mg tablet 0.5 mg PO BID trazodone 50 mg tablet 50 mg PO QHS midodrine 5 mg tablet 10 mg PO BID divalproex 500 mg tablet,delayed release (DR/EC) 500 mg PO BID amantadine HCl 100 mg capsule 100 mg PO BID pantoprazole 40 mg tablet,delayed release (DR/EC) 40 mg PO DAILY aspirin 81 mg tablet,chewable 1 tab PO DAILY montelukast 10 mg tablet 10 mg PO DAILY atropine 1 % drops 2 drp sublingual BID fludrocortisone 0.1 mg tablet 0.2 mg PO BID loperamide [Anti-Diarrheal (loperamide)] 2 mg capsule 2 mg PO Q8H PRN (Reason: loose stool) polyethylene glycol 3350 [ClearLax] 17 gram/dose powder 17 g PO DAILY PRN (Reason: constipation) fluoride (sodium) [DentaGel] 1.1 % gel 1 applic dental QHS cholecalciferol (vitamin D3) [Vitamin D3] 50 mcg (2,000 unit) capsule 50 mcg PO DAILY docusate sodium [Colace] 100 mg capsule 100 mg PO DAILY PRN melatonin 5 mg tablet,chewable 5 mg PO QHS PRN Primary Care Provider: Abby Carrillo Referrals: Joaquín Rosario MD [Non-Staff, Family Practice] Print Language: Malian
--- NOTE | 2025-04-05 20:15 | ED.RN ---
mom at bedside now
--- NOTE | 2025-04-05 20:34 | ED.RN ---
yelling and combative even after Brian. at bedside, new orders- see MAR for meds given. parents at bedside
[2025-04-05] MEDS: 0.9% Normal Saline (500mL Bag) 500 ML 1000 ML IV (21:45)
[2025-04-05 22:04] LABS: Hematocrit 45.4 % (37-47); Hemoglobin 15.5 g/dL (12.0-15.0); Immature Granulocytes Count 0.040 X10^3/uL (0.0-0.0); Mean Corp Hgb Conc 34.1 g/dL (32-36); Mean Corpuscular Volume 90.1 fL (81-99); Mean Platelet Vol. 9.9 fl (6.2-12.0); NRBC Flagged by Analyzer 0 % (0-5); Platelet Count 227 K/mm3 (150-450); RBC Distribution Width CV 13.0 % (11.6-14.6); RBC Distribution Width SD 42.5 fl (35.1-43.9); Red Blood Count 5.04 M/mm3 (4.2-5.4); White Blood Count 8.4 K/mm3 (4.4-11.0)
[2025-04-05 22:17] LABS: Anion Gap 16 (5-15); BUN 15 mg/dL (4-19); BUN/Creat Ratio 24.3 RATIO (10-20); CPK Total, Creatine Kinase 142 U/L (24-195); Calcium,Total 9.8 mg/dL (7.6-11.0); Carbon Dioxide 18.5 mmol/L (21.0-32.0); Chloride 107 mmol/L (98-108); Estimated Creatinine Clearance 106.60 ml/min (50-250); Glucose 88 mg/dL (70-99); Potassium 3.4 mmol/L (3.3-5.1)
--- NOTE | 2025-04-05 22:20 | RAD_ITS ---
PROCEDURE: CHEST 1 VIEW (PORTABLE) 04/05/2025 REASON FOR EXAM: AMS TECHNIQUE: Frontal view of the chest. COMPARISON: 12/26/2019 FINDINGS: Hardware: None. Heart: Cardiac and mediastinal contours are stable. Lungs: The lungs are clear. No pneumothorax or sizable pleural effusion. Bones: The bones are unremarkable. RAD/Chest 1 View (Portable) IMPRESSION: No Acute Findings. Reading [facility]
[2025-04-05 23:08] LABS: Mucous, Urine 0 SEEN /hpf (<or=2+); Red Blood Cells-Urine 0 SEEN /hpf (0-5)
[2025-04-05 23:11] VITALS: BP 114/79; PULSE 84; RESP 16; TEMP 36.6; O2SAT 99
[2025-04-05 23:31] LABS: Color, Urine Yellow (Yellow); Glucose, Dipstick Normal (Normal); Ketone-Dipstick 50 mg/dl (Negative); Leukocyte Esterase-Dipstick 500 /ul (Negative); Nitrite-Dipstick Negative (Negative); Occult Blood-Urine 10 /ul (Negative); Protein-Dipstick 30 mg/dl (Negative); Specific Gravity, Urine 1.030 (1.002-1.030); Urine Bilirubin Dipstick Negative (Negative)
[2025-04-05 23:41] LABS: Squamous Epithelial Cells - UA 0-5 SEEN /hpf (5-10)
[2025-04-05] MEDS: 0.9% Normal Saline (500mL Bag) 500 ML 999 ML IV (23:48)
[2025-04-05 23:49] VITALS: BP 99/65; PULSE 88; RESP 16; O2SAT 100
[2025-04-06] VITALS (8 sets, daily range): BP systolic 103–133; BP diastolic 62–93; PULSE 80–102; RESP 14–20; TEMP 36.6–37.2; O2SAT 91–100; BMI 21.2; BMI 21.4
--- NOTE | 2025-04-06 00:28 | PCM.HP.STD ---
HPI - General General Date of Admission: 04/06/25 Date of Service: 04/06/25 Chief Complaint: Agitation/combativeness, refusing meds. HPI Narrative The patient is a 49 y/o F w/ PMHx: MARZENA/Anxiety and Depression/Bipolar disorder, Allergic rhinitis, Chronic oropharyngeal dysphagia, PAF, Polycythemia vera, Chronic orthostatic hypotension, Autistic disorder w/ chronic intellectual disability ANO x 1 at baseline and only responds usually yes/no responses who presents to the [facility] ED on 04/06/2025 from [facility] with increasing agitation and refusal to take medications with nursing staff at the facility noting the patient being combative all day and yelling out since approximately 4 AM refusing her Ativan specifically prompting eventual ED evaluation. Workup in the ED included T96.4, heart rate 101, BP 95/67, respiratory rate 18, 92% on room air with most recent repeat vitals heart rate 88, BP 99/65, respiratory rate 16, 100% room air, CBC with WBC 8.4, hemoglobin 15.5, MCV 90.1, platelet 227 without shift, BMP with carbon oxide 18.5, anion gap 16, BUN/creatinine 15/0.62, GFR 110, total creatinine kinase 142, urinalysis noted to be cloudy, elevated specific gravity 1.030, protein 30, ketone 50, occult blood 10, negative nitrite, leukocyte esterase 500, urine WBCs 10-25 with 1+ urine bacteria, urine culture pending per ED, chest x-ray with no acute cardiopulmonary findings. In the ED patient administered Geodon 20 mg IM x 1, Ativan 2 mg IM x 1, Haldol 5 mg IM x 1, Rocephin 1 g IV x 1 as well as 500 cc IV fluid. Hospitalist evaluation of patient performed and unfortunately family not present. [facility] Medical History Encephalopathy Generalized anxiety disorder Other symbolic dysfunctions Rhabdomyolysis Need for assistance with personal care Difficulty walking Seasonal allergic rhinitis GERD without esophagitis Dysphagia, oropharyngeal Convulsions Muscle weakness Atrial fibrillation Orthostatic hypotension Intellectual disability Bipolar disorder Autistic disorder Thrombocytopenia Polycythemia vera Home Medications ?Medication ?Instructions ?Recorded ?Last Taken ?Type amantadine HCl 100 mg capsule 100 mg PO BID 12/25/24 Unknown History aspirin 81 mg chewable tablet 1 tab PO DAILY 12/25/24 Unknown History atropine 1 % eye drops 2 drp sublingual BID 12/25/24 Unknown History cholecalciferol (vitamin D3) 50 50 mcg PO DAILY 12/25/24 Unknown History mcg (2,000 unit) capsule (Vitamin D3) divalproex 500 mg tablet,delayed 500 mg PO BID 12/25/24 Unknown History release fludrocortisone 0.1 mg tablet 0.2 mg PO BID 12/25/24 Unknown History fluoride (sodium) 1.1 % dental gel 1 applic dental QHS 12/25/24 Unknown History (DentaGel) loperamide 2 mg capsule 2 mg PO Q8H PRN loose stool 12/25/24 Unknown History (Anti-Diarrheal (loperamide)) midodrine 5 mg tablet 10 mg PO BID 12/25/24 Unknown History montelukast 10 mg tablet 10 mg PO DAILY 12/25/24 Unknown History pantoprazole 40 mg tablet,delayed 40 mg PO DAILY 12/25/24 Unknown History release polyethylene glycol 3350 17 17 g PO DAILY PRN constipation 12/25/24 Unknown History gram/dose oral powder (ClearLax) trazodone 50 mg tablet 50 mg PO QHS 12/25/24 Unknown History acetaminophen 325 mg tablet 650 mg PO Q4H PRN fever or pain 03/05/25 Unknown History docusate sodium 100 mg capsule 100 mg PO DAILY PRN constipation 03/05/25 Unknown History (Colace) lorazepam 0.5 mg tablet 0.5 mg PO BID 03/05/25 Unknown History melatonin 5 mg chewable tablet 5 mg PO QHS PRN sleep 03/05/25 Unknown History lorazepam 2 mg/mL injection 0.25 mg IM Q24H PRN agitation 04/06/25 Unknown History solution (Ativan) Allergy/AdvReac Type Severity Reaction Status Date / Time No Known Allergies Allergy Verified 04/05/25 18:49 unable to obtain unable to obtain Social History household members: none housing: [facility] Smoking Status: Never smoker alcohol intake: never substance use type: does not use ROS Review of Systems ROS Unobtainable: due to encephalopathy and due to mental status Vital Signs Vital Signs Vital Signs: 04/05/25 18:49 04/05/25 22:12 04/05/25 23:11 Temperature 96.4 F L 97.9 F Temperature Source Temporal Axillary Pulse Rate 101 H 84 Respiratory Rate 18 16 Respiratory Effort Normal Non-Labored Blood Pressure 95/67 114/79 Blood Pressure Mean 76 90 Pulse Ox 92 99 Oxygen Delivery Method Room Air Room Air 04/05/25 23:49 Temperature Temperature Source Pulse Rate 88 Respiratory Rate 16 Respiratory Effort Blood Pressure 99/65 Blood Pressure Mean 76 Pulse Ox 100 Oxygen Delivery Method Room Air Weight Weight: 132 lb 11.492 oz Body Mass Index (BMI) 20.7 Physical Exam Narrative Physical Examination: General: Awakens to stimuli, not significantly alert given recent sedated regimen, unable to answer orientation questions, baseline ANO x 1, baseline primarily yes and no answer. Skin: Normal color, normal turgor, no icterus, no cyanosis except occasional stage ecchymoses, abrasion. HEENT: AT/NC, EOM unable to be assessed well given recent sedation, PERRLA, dry MM, no carotid bruits or JVD noted. Lungs: CTA bilaterally, moderate effort, mild decrease BL bases, no rales, ronchi or wheezing. Heart: Regular rate and rhythm; no gallop, rub audible. Abdomen: Soft, thin habitus, no obvious grimacing with palpation, no obvious distention, hyperactive BS, no appreciated HSM although exam somewhat difficult as patient is curled in a ball positionally. Extremities: No cyanosis, no clubbing, no significant edema. Neurological: Awakens to stimuli, not significantly alert given recent sedated regimen, unable to answer orientation questions, baseline ANO x 1, baseline primarily yes and no answer, cognitive function currently still not baseline intact but affected by recent sedated medication, pupils equally reactive to light and accommodation, cranial nerves difficult to assess given recent sedation, still spontaneously moving extremities, strength severely globally decreased. Psychiatric: Affect appears flat, calm currently, lethargic given recent sedated medication, no acute evidence of depressive or anxiety feelings but does have underlying history. Results Lab / Micro Data 04/05/25 21:48 04/05/25 21:48 Labs: Laboratory Results - last 24 hr 04/05/25 21:48: WBC 8.4, RBC 5.04, Hgb 15.5 H, Hct 45.4, MCV 90.1, MCH 30.8, MCHC 34.1, RDW Std Deviation 42.5, RDW Coeff of Russell 13.0, Plt Count 227, MPV 9.9, Immature Gran % (Auto) 0.500, Neut % (Auto) 51.3, Lymph % (Auto) 37.3, [place] % (Auto) 9.0, Eos % (Auto) 1.4, Baso % (Auto) 0.5, Absolute Neuts (auto) 4.3, Absolute Lymphs (auto) 3.14, Nucleated RBC % 0, Sodium 141, Potassium 3.4, Chloride 107, Carbon Dioxide 18.5 L, Anion Gap 16 H, BUN 15, Creatinine 0.62 L, Estim Creat Clear Calc 106.60, Est GFR (MDRD) Non-Af 110, BUN/Creatinine Ratio 24.3 H, Glucose 88, Calcium 9.8, Total Creatine Kinase 142 04/05/25 23:00: Urine Color Yellow, Urine Clarity Sl. Cloudy, Urine pH 6.0, Ur Specific [place] 1.030, Urine Protein 30 H, Urine Glucose (UA) Normal, Urine Ketones 50 H, Urine Occult Blood 10 H, Urine Nitrite Negative, Urine Bilirubin Negative, Urine Urobilinogen Normal, Ur Leukocyte Esterase 500 H, Urine RBC 0 SEEN, Urine WBC 10-25 SEEN, Ur Squamous Epith Cells 0-5 SEEN, Urine Bacteria 1+, Urine Mucus 0 SEEN Rhythm Strip Rhythm Strip: Sinus Rhythm Rate: 88 Ectopy: None Imaging Radiology Impression Chest X-Ray 04/05/25 22:20 IMPRESSION: No Acute Findings. Reading Location: [facility] Assessment & Plan Assessment/Plan (1) Urinary tract infection: PLAN: Plan The patient is a 49 y/o F w/ PMHx: MARZENA/Anxiety and Depression/Bipolar disorder, Allergic rhinitis, Chronic oropharyngeal dysphagia, PAF, Polycythemia vera, Chronic orthostatic hypotension, Autistic disorder w/ chronic intellectual disability ANO x 1 at baseline and only responds usually yes/no responses who presents to the [facility] ED on 04/06/2025 from [facility] with increasing agitation and refusal to take medications with nursing staff at the facility noting the patient being combative all day and yelling out since approximately 4 AM refusing her Ativan specifically prompting eventual ED evaluation. #1. Acute Encephalopathy/agitation secondary to Acute Urinary Tract Infection: Will admit to [facility] with intermittent usage of telemetry as needed in case of Haldol as needed needs, UA upon ED evaluation remarkable, pending UCx, maintain on judicious IVFs, monitor I/Os, continue IV Rocephin w/ transition as able pending sensitivities and speciation. PT/OT/case management consulted for discharge planning. #2. Autistic disorder with chronic intellectual disability: Patient as noted ANO x 1 at baseline usually only responding with yes/no answers, complicates presentation especially with recent refusal to take medications with increased agitation, as noted will continue patient psychiatric regimen with transition to IV options if necessary and if notably agitated may certainly utilize IV Haldol if needed, will maintain on fall precautions, case management consulted. #3. Chronic oropharyngeal dysphagia: Noted in chart history, maintain on aspiration precautions, will clarify with skilled facility if patient does have any specific alterations to her textures. #4. PAF: Noted in chart history, unclear exact specific event, not on any rate or rhythm agent and not anticoagulated, will attempt to clarify further. #5. Chronic polycythemia vera: Admission CBC with mild hemoglobin increased 15.5, unclear baseline with last noted 12/25/2024 normal range at 14.3, will continue to trend CBC. #6. MARZENA/anxiety depression/bipolar disorder: Will attempt to continue patient home psychiatric regimen, may need to transition temporarily to IV options if able. #7. Chronic orthostatic hypotension: Will continue patient home midodrine as well as fludrocortisone home regimen, maintain on fall precautions. #8. Allergic rhinitis: Will continue patient home montelukast regimen. #9. GERD: Will continue patient on PPI. #10. DVT prophylaxis: Lovenox. #11. CODE status: Patient DNR CCA no intubation per facility paperwork. Charges/Coding Visit Charges Inpatient E&M: 59838 Init Hosp L3
--- OUTSIDE RECORDS SUMMARY | 2025-04-06 01:14 | XMS RPT_ITS | CCD ---
Author Organization [facility] [employer] Care Team Providers Care Supervising Architect Name Role Phone Zaid Marie III Primary Care Provider EUSEBIA WILLIAM, DESIRAE Primary Care Physician DESIRAE ROSARIO MD Primary Care Physician [phone] Zaid Marie III Primary Care Provider PRAVEEN [...] Unavailable NOHEMI TALAVERA MD Attending Unavailable MURRAY SHEEP FARMER-MANAGER PATHOLOGY, [place] Attending Arnoldo ROSARIO, DESIRAE Primary Care Unavailable EUSEBIA, DESIRAE Primary Care Unavailable MIGUEL ANGEL PARKER MD Attending Unavailable EUSEBIA, DESIRAE Primary Care Unavailable NOHEMI TALAVERA MD Attending Unavailable EUSEBIA, DESIRAE Primary Care Unavailable CAROLINE JVAIER DO Attending Unavailable Dr. Quincy Clarke DO Emergency Provider [phone] Desirae Rosario MD Primary Care Provider JEFF AMBRIZ Attending Unavailable FRANK III, J[facility] Primary Care Unavail able FRANK III, ZAID ACTON Primary Care Unavail able RADHA GLASS Attending [...] Unavailable Dr. Quincy Clarke DO Attending Provider [phone] Desirae Rosario MD Referring Provider Naye Sol Attending Provider [phone] Dr. Wojciech Gonzalez MD Attending Provider Naye Valero Attending Unavailable Desirae Rosario Referring [...] Daily, # 90 tab(s), 3 Refill(s), Pharmacy: [facility], 165.1, cm, 08/10/24 9:30:00 EST, Height, kg, 08/10/24 9:30:00 EST, Dosing Weight Start Date: 08/10/24 Status: Ordered Quantity: 90.0 Unit: tab(s) Repeat number: 4 Start: 07-26-2024 aspirin 325 mg oral tablet Dose : 325 mg = 1 tab(s), Oral, qDay, # 90 tab(s), 0 Refill(s), Pharmacy: [facility], 170.2, cm, 12/29/23 15:59:00 EDT, Height, kg, [...] Date: 04/07/16 Status: Ordered End: 11-24-2023 medroxyPROGESTERone (DEPO-TX OVERA) 150 mg/mL injection Inject 150 mg [...] 11-18-2023 Multiple Vitam in (Tab-A-Kenneth/Beta Carotene) tablet Hhhjersvdqehe-Tenuzrdm-Tgihi n (MULTIVITAMIN 50 PLUS) tab (6 sources) [...] cap(s), 0 Refill(s), 09/02/22 14:11:00 EST, [facility]acy: [id number], 168, cm, 07/03/22 9:38:00 EST, Height, 58.9 [...] 40 mg by mouth. polyethylene glycol 3350 85822 mg powder for oral solution (14 sources) [...] BID, # 180 tab(s), 0 Refill(s), [id number], 170.2, cm, 01/05/23 14:35:00 EDT, Height Start [...] Comment on above: Take 1 capsule by [facility] four times daily for 7 days. ketamine 100 mg/ml injectable solution (2 sources) General Anesthetic Start: 03-26-2024 End: 03-26-2024 265 mg (rounded from 263.2 mg = 4 mg/kg 65.8 kg), IntraMUSCular, Once, On 03/26/24 at 1220, For 1 dose, If ordered nasal, give 1/2 of dose in each nostril. If IM, give deeply into a large muscle mass. If ordered IV or TX, must dilute 1:1 prior to administration. 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 Neither wrist painful today. Resides at [facility]. Mobile XRAY B/L wrist 01/19/25. Facilities [...] ulna or (more content not included)... Normal [facility] Wrist 2 Viewson 03-05-2025 Wrist 2 Views [facility] [address] [place] [address] Wrist 2 Views MR#: [id number] Acct: [id number] Name: SHARLA JOINER Rep #: [id number] : 1975 F 49 From: Norberto Anne MD PCP: Dr. Desirae Rosario MD Status: DEP AMB Study: Wrist 2 Views Date of Exam: 03/05/25 Exam# [id number] Ordering Dr: Naye Valero PROCEDURE: WRIST 2 [...] to 0.36 cm. Reading Location: [facility] CC: CHARGER TESTER-C Naye Valero; Dr. Desirae Rosario MD Retail Center Receptionist: Signed Normal [facility] Wrist [address] [facility] [address] [place], [place] [address] Wrist 2 Views MR#: [id number] Acct: [id number] Name: SHARLA JOINER Rep #: [id number] : 1975 F 49 From: Norberto Anne MD PCP: Dr. Desirae Rosario MD Status: DEP AMB Study: Wrist 2 Views Date of Exam: 03/05/25 Exam# [id number] Ordering Dr: Naye Valero PROCEDURE: WRIST 2 [...] CC: LAZARA Valero; Dr. Desirae Rosario MD Retail Center Receptionist: Signed Normal [facility] CASE MANAGEMon 01-07-2025 CASE MANAGEM Normal [facility] CASE MANAGEM Normal [facility] CASE MANAGEM Normal [facility] CNDSon 01-07-2025 CNDS Normal [facility] CASE MANAGEMon 01-06-2025 CASE MANAGEM [facility] NURSING PROGon 01-05-2025 NURSING PROG [facility] THERAPY NTon 01-05-2025 THERAPY NT [facility] CASE MANAGEMon 01-04-2025 CASE MANAGEM [facility] CBC panel Auto (Bld)on 01-04 Erythrocyte distribution width (RBC) [Ratio] 12.2 % Normal 11.5-15.0 [facility] Comment on above: Order Comment: Speci men Type: BLOOD SPECIMENOrdering Facility: [facility] Address: [address] [place] [address] Performed By: #### 5 8410-2, WAMMR ####[facility]ORATORYCLIA [id number] [place] [address] [place] Hematocrit (Bld) [Volume fraction] 41.4 % Normal 36.0-46.0 [facility] Comment on above: Order Comment: Speci men Type: BLOOD SPECIMENOrdering Facility: [facility] Address: [address] [place] [address] Performed By: #### 5 8410-2, WAMMR ####[facility]ATORYCLIA [id number] [place] [address] [place] Hemoglobin (Bld) [Mass/Vol] 13.9 g/dL Normal 11.5-15.5 [facility] Comment on above: Order Comment: Speci men Type: BLOOD SPECIMENOrdering Facility: [facility] Address: [address] [place] [address] Performed By: #### 5 8410-2, WAMMR ####[facility]ORATORYCLIA [id number] [address] [place] MCH (RBC) [Entitic mass] 32.3 pg Normal 26.0-34.0 [facility] Comment on above: Order Comment: Speci men Type: BLOOD SPECIMENOrdering Facility: [facility] Address: [address] [place] [address] Performed By: #### 5 8410-2, WAMMR ####[facility]ORATORYCLIA [id number] [place] [address] [place] MCHC (RBC) [Mass/Vol] 33.6 g/dL Normal 30.5-36.0 [facility] Comment on above: Order Comment: Speci men Type: BLOOD SPECIMENOrdering Facility: [facility] Address: [address] [place] [address] Performed By: #### 5 8410-2, WAMMR ####[facility]ATORYCLIA [id number] [address] [place] MCV (RBC) [Entitic vol] 96.1 fL Normal 80.0-100.0 [facility] Comment on above: Order Comment: Speci men Type: BLOOD SPECIMENOrdering Facility: [facility] Address: [address] [place] [address] Performed By: #### 5 8410-2, WAMMR ####[facility]ATORYCLIA [id number] [address] [place] Nucleated RBC (Bld) [#/Vol] 10*3/uL Normal <0.01 [facility] Comment on above: Order Comment: Speci men Type: BLOOD SPECIMENOrdering Facility: [facility] Address: [address] [place] [address] Performed By: #### 5 8410-2, WAMMR ####[facility]ATORYCLIA [id number] [address] [place] Platelet mean volume (Bld) [Entitic vol] 10.9 fL Normal 9.0-12.7 [facility] Comment on above: Order Comment: Speci men Type: BLOOD SPECIMENOrdering Facility: [facility] Address: [address] [place] [address] Performed By: #### 5 8410-2, WAGEORGIAR ####[facility]ORATORYCLIA [id number] [place] [id number] [place] Platelets (Bld) [#/Vol] 134 10*3/uL Low 150-400 [facility] Comment on above: Order Comment: Speci men Type: BLOOD SPECIMENOrdering Facility: [facility] Address: [address] [place] [address] Result Comment: Plat elet count confirmed by manual review of peripheral blood smear. No clot detected. Performed By: #### 5 8410-2, STALINR ####[facility]ATORYCLIA [id number] [place] [address] [place] RBC (Bld) [#/Vol] 4.31 10*6/uL Normal 3.90-5.20 [facility] Comment on above: Order Comment: Speci men Type: BLOOD SPECIMENOrdering Facility: [facility] Address: [address] [place] [address] Performed By: #### 5 8410-2, WAGEORGIAR ####[facility]ATORYCLIA [id number] [place] [address] [place] WBC (Bld) [#/Vol] 5.99 10*3/uL Normal 3.70-11.00 [facility] Comment on above: Order Comment: Speci men Type: BLOOD SPECIMENOrdering Facility: [facility] Address: [address] [place] [address] Performed By: #### 5 8410-2, WAMMR ####[facility]ATORYCLIA [id number] [place] [address] [place] CONSULT PROGon 01-04-2025 CONSULT PROG Normal [facility] Comprehensive metabolic 2000 panelon 01-04-2025 Albumin [Mass/Vol] 2.5 g/dL Low 3.2-5.0 [facility] Comment on above: Order Comment: Speci men Type: BLOOD SPECIMENOrdering Facility: [facility] Address: [address] [place] [address] Performed By: #### 2 4323-8 ####[facility]ATORYCLIA [id number] [place] [id number] [place] ALP [Catalytic activity/Vol] 51 U/L Normal 45-117 [facility] Comment on above: Order Comment: Speci men Type: BLOOD SPECIMENOrdering Facility: [facility] Address: [address] [place] [address] Performed By: #### 2 4323-8 ####[facility]ATORYCLIA [id number] [place] [address] [place] ALT [Catalytic activity/Vol] 9 U/L Low 13-61 [facility] Comment on above: Order Comment: Speci men Type: BLOOD SPECIMENOrdering Facility: [facility] Address: [address] [place] [address] Result Comment: Resu lts may be falsely depressed after the administration of Sulfasalazine and/or Sulfapyridine. Performed By: #### 2 4323-8 ####[facility]ATORYCLIA [id number] [place] [address] [place] Anion gap [Moles/Vol] 11 mmol/L Normal 5-16 [facility] Comment on above: Order Comment: Speci men Type: BLOOD SPECIMENOrdering Facility: [facility] Address: [address] [place] [address] Performed By: #### 2 4323-8 ####[facility]ATORYCLIA [id number] [place] [address] [place] AST [Catalytic activity/Vol] 12 U/L Normal 8-34 [facility] Comment on above: Order Comment: Speci men Type: BLOOD SPECIMENOrdering Facility: [facility] Address: [address] [place] [address] Result Comment: Resu lts may be falsely depressed after the administration of Sulfasalazine and/or Sulfapyridine. Performed By: #### 2 4323-8 ####[facility]ATORYCLIA [id number] [place] [address] [place] Bilirubin [Mass/Vol] 0.3 mg/dL Normal 0.2-1.0 [facility] Comment on above: Order Comment: Speci men Type: BLOOD SPECIMENOrdering Facility: [facility] Address: [address] [place] [address] Performed By: #### 2 4323-8 ####[facility]ATORYCLIA [id number] [place] [address] [place] Calcium [Mass/Vol] 9.4 mg/dL Normal 8.5-10.5 [facility] Comment on above: Order Comment: Speci men Type: BLOOD SPECIMENOrdering Facility: [facility] Address: [address] [place] [address] Performed By: #### 2 4323-8 ####[facility]ATORYCLIA [id number] [place] [address] [place] Chloride [Moles/Vol] 104 mmol/L Normal 98-107 [facility] Comment on above: Order Comment: Speci men Type: BLOOD SPECIMENOrdering Facility: [facility] Address: [address] [place] [address] Performed By: #### 2 4323-8 ####[facility]ATORYCLIA [id number] [place] [address] [place] CO2 [Moles/Vol] 26 mmol/L Normal 21-32 [facility] Comment on above: Order Comment: Speci men Type: BLOOD SPECIMENOrdering Facility: [facility] Address: [address] [place] [address] Performed By: #### 2 4323-8 ####[facility]ATORYCLIA [id number] [place] [address] [place] Creatinine [Mass/Vol] 0.52 mg/dL Normal 0.51-0.95 [facility] Comment on above: Order Comment: Speci men Type: BLOOD SPECIMENOrdering Facility: [facility] Address: [address] [place] [address] Result Comment: Marilin ents receiving either N-Acetylcysteine (NAC) or Metamizole prior to venipuncture, may have falsely depressed results. Performed By: #### 2 4323-8 ####[facility]ATORYCLIA [id number] [place] [address] [place] Creatinine and Glomerular filtration rate.predicted panel (S/P/Bld) 115 mL/min/1.73m??? Normal >=60 [facility] Comment on above: Order Comment: Specpatrice ramos Type: BLOOD SPECIMENOrdering Facility: [facility] Address: [address] [place] [address] Result Comment: Chrissy mated Glomerular Filtration Rate [...] actual GFR. Performed By: #### 2 4323-8 ####[facility]ATORYCLIA [id number] [place] [address] [place] Glucose [Mass/Vol] 115 mg/dL High 70-100 [facility] Comment on above: Order Comment: Syd ramos Type: BLOOD SPECIMENOrdering Facility: [facility] Address: [address] [place] [address] Result Comment: The [place] [employer] Association (ADA) provides guidance for cutoff [...] Standards of Medical Care in Diabetes 2016, [place] [employer]. Diabetes Care. 2016.39(Suppl 1).Results may be falsely elevated after the administration of Sulfapyridine.Results may be falsely depressed after the administration of Sulfasalazine. Performed By: #### 2 4323-8 ####[facility]ATORYCLIA [id number] [address] [place] Potassium [Moles/Vol] 3.9 mmol/L Normal 3.5-5.1 [facility] Comment on above: Order Comment: Speci men Type: BLOOD SPECIMENOrdering Facility: [facility] Address: [address] [place] [address] Performed By: #### 2 4323-8 ####[facility]ATORYCLIA [id number] [address] [place] Protein [Mass/Vol] 5.8 g/dL Low 6.0-8.5 [facility] Comment on above: Order Comment: Speci men Type: BLOOD SPECIMENOrdering Facility: [facility] Address: [address] [place] [address] Performed By: #### 2 4323-8 ####[facility]ATORYCLIA [id number] [address] [place] Sodium [Moles/Vol] 141 mmol/L Normal 136-145 [facility] Comment on above: Order Comment: Speci men Type: BLOOD SPECIMENOrdering Facility: [facility] Address: [address] [place] [address] Performed By: #### 2 4323-8 ####[facility]ATORYCLIA [id number] [address] [place] Urea nitrogen [Mass/Vol] 9 mg/dL Normal 7-26 [facility] Comment on above: Order Comment: Speci men Type: BLOOD SPECIMENOrdering Facility: [facility] Address: [address] [place] [address] Performed By: #### 2 4323-8 ####[facility]ORATORYCLIA [id number] [place] [address] [place] MORPH WAM REFLEXon 5 Ovalocytes LM Ql (Bld) Few Normal [facility] Comment on above: Order Comment: Speci men Type: BLOOD SPECIMENOrdering Facility: [facility] Address: [address] [place] [address] Performed By: #### 5 8410-2, WAGEORGIAR ####[facility]ATORYCLIA [id number] [place] [address] [place] Platelets Estimate (Bld) [#/Vol] Decreased Normal [facility] Comment on above: Order Comment: Speci men Type: BLOOD SPECIMENOrdering Facility: [facility] Address: [address] [place] [address] Performed By: #### 5 8410-2, WAGEORGIAR ####[facility]ATORYCLIA [id number] [place] [address] [place] Polychromasia LM Ql (Bld) Slight [facility] Comment on above: Order Comment: Speci men Type: BLOOD SPECIMENOrdering Facility: [facility] Address: [address] [place] [address] Performed By: #### 5 8410-2, WAMMR ####[facility]ATORYCLIA [id number] [address] [place] RED CELL MORPH Reviewed: see result s of individual morphologies [facility] Comment on above: Order Comment: Speci men Type: BLOOD SPECIMENOrdering Facility: [facility] Address: [address] [place] [address] Performed By: #### 5 8410-2, WAMMR ####[facility]ORATORYCLIA [id number] [place] [address] [place] THERAPY NTon 01-04-2025 THERAPY NT [facility] THERAPY NT [facility] CBC panel Auto (Bld)on 01-03 Erythrocyte distribution width (RBC) [Ratio] 12.2 % Normal 11.5-15.0 [facility] Comment on above: Order Comment: Speci men Type: BLOOD SPECIMENOrdering Facility: [facility] Address: [address] [place] [address] Performed By: #### 5 8410-2 ####[facility]ATORYCLIA [id number] [address] [place] Hematocrit (Bld) [Volume fraction] 39.5 % Normal 36.0-46.0 [facility] Comment on above: Order Comment: Speci men Type: BLOOD SPECIMENOrdering Facility: [facility] Address: [address] [place] [address] Performed By: #### 5 8410-2 ####[facility]ATORYCLIA [id number] [address] [place] Hemoglobin (Bld) [Mass/Vol] 13.7 g/dL Normal 11.5-15.5 [facility] Comment on above: Order Comment: Speci men Type: BLOOD SPECIMENOrdering Facility: [facility] Address: [address] [place] [address] Performed By: #### 5 8410-2 ####[facility]ATORYCLIA [id number] [address] STATES OF [facility] MCH (RBC) [Entitic mass] 32.5 pg Normal 26.0-34.0 [facility] Comment on above: Order Comment: Speci men Type: BLOOD SPECIMENOrdering Facility: [facility] Address: [address] [place] [address] Performed By: #### 5 8410-2 ####[facility]ATORYCLIA [id number] [place] [address] [place] MCHC (RBC) [Mass/Vol] 34.7 g/dL Normal 30.5-36.0 [facility] Comment on above: Order Comment: Speci men Type: BLOOD SPECIMENOrdering Facility: [facility] Address: [address] [place] [address] Performed By: #### 5 8410-2 ####[facility]ORATORYCLIA [id number] [place] [address] [place] MCV (RBC) [Entitic vol] 93.6 fL Normal 80.0-100.0 [facility] Comment on above: Order Comment: Speci men Type: BLOOD SPECIMENOrdering Facility: [facility] Address: [address] [place] [address] Performed By: #### 5 8410-2 ####[facility]ORATORYCLIA [id number] [place] [id number] [place] Nucleated RBC (Bld) [#/Vol] 10*3/uL Normal <0.01 [facility] Comment on above: Order Comment: Speci men Type: BLOOD SPECIMENOrdering Facility: [facility] Address: [address] [place] [address] Performed By: #### 5 8410-2 ####[facility]ATORYCLIA [id number] [place] [address] [place] Platelet mean volume (Bld) [Entitic vol] 10.2 fL Normal 9.0-12.7 [facility] Comment on above: Order Comment: Speci men Type: BLOOD SPECIMENOrdering Facility: [facility] Address: [address] [place] [address] Performed By: #### 5 8410-2 ####[facility]ATORYCLIA [id number] [place] [address] [place] Platelets (Bld) [#/Vol] 153 10*3/uL Normal 150-400 [facility] Comment on above: Order Comment: Speci men Type: BLOOD SPECIMENOrdering Facility: [facility] Address: [address] [place] [address] Performed By: #### 5 8410-2 ####[facility]ATORYCLIA [id number] [place] [address] [place] RBC (Bld) [#/Vol] 4.22 10*6/uL Normal 3.90-5.20 [facility] Comment on above: Order Comment: Speci men Type: BLOOD SPECIMENOrdering Facility: [facility] Address: [address] [place] [address] Performed By: #### 5 8410-2 ####[facility]ATORYCLIA [id number] [place] [address] [place] WBC (Bld) [#/Vol] 7.98 10*3/uL Normal 3.70-11.00 [facility] Comment on above: Order Comment: Speci men Type: BLOOD SPECIMENOrdering Facility: [facility] Address: [address] [place] [address] Performed By: #### 5 8410-2 ####[facility]ATORYCLIA [id number] [address] [place] CONSULT PROGon 01-03-2025 CONSULT PROG Normal [facility] Comprehensive metabolic 2000 panelon 01-03-2025 Albumin [Mass/Vol] 2.6 g/dL Low 3.2-5.0 [facility] Comment on above: Order Comment: Speci men Type: BLOOD SPECIMENOrdering Facility: [facility] Address: [address] [place] [address] Performed By: #### 2 4323-8 ####[facility]ATORYCLIA [id number] [address] [place] ALP [Catalytic activity/Vol] 52 U/L Normal 45-117 [facility] Comment on above: Order Comment: Speci men Type: BLOOD SPECIMENOrdering Facility: [facility] Address: [address] [place] [address] Performed By: #### 2 4323-8 ####[facility]ATORYCLIA [id number] [address] [place] ALT [Catalytic activity/Vol] 9 U/L Low 13-61 [facility] Comment on above: Order Comment: Speci men Type: BLOOD SPECIMENOrdering Facility: [facility] Address: [address] [place] [address] Result Comment: Resu lts may be falsely depressed after the administration of Sulfasalazine and/or Sulfapyridine. Performed By: #### 2 4323-8 ####[facility]ATORYCLIA [id number] [address] [place] Anion gap [Moles/Vol] 6 mmol/L Normal 5-16 [facility] Comment on above: Order Comment: Speci men Type: BLOOD SPECIMENOrdering Facility: [facility] Address: [address] [place] [address] Performed By: #### 2 4323-8 ####[facility]ATORYCLIA [id number] [place] [address] [place] AST [Catalytic activity/Vol] 14 U/L Normal 8-34 [facility] Comment on above: Order Comment: Speci men Type: BLOOD SPECIMENOrdering Facility: [facility] Address: [address] [place] [address] Result Comment: Resu lts may be falsely depressed after the administration of Sulfasalazine and/or Sulfapyridine. Performed By: #### 2 4323-8 ####[facility]ATORYCLIA [id number] [place] [address] [place] Bilirubin [Mass/Vol] 0.4 mg/dL Normal 0.2-1.0 [facility] Comment on above: Order Comment: Speci men Type: BLOOD SPECIMENOrdering Facility: [facility] Address: [address] [place] [address] Performed By: #### 2 4323-8 ####[facility]ATORYCLIA [id number] [place] [address] [place] Calcium [Mass/Vol] 9.5 mg/dL Normal 8.5-10.5 [facility] Comment on above: Order Comment: Speci men Type: BLOOD SPECIMENOrdering Facility: [facility] Address: [address] [place] [address] Performed By: #### 2 4323-8 ####[facility] LABORATORYCLIA [id number] [place] [address] [place] Chloride [Moles/Vol] 106 mmol/L Normal 98-107 [facility] Comment on above: Order Comment: Speci men Type: BLOOD SPECIMENOrdering Facility: [facility] Address: [address] [place] [address] Performed By: #### 2 4323-8 ####[facility] LABORATORYCLIA [id number] [place] [address] [place] CO2 [Moles/Vol] 27 mmol/L Normal 21-32 [facility] Comment on above: Order Comment: Speci men Type: BLOOD SPECIMENOrdering Facility: [facility] Address: [address] [place] [address] Performed By: #### 2 4323-8 ####[facility] LABORATORYCLIA [id number] [place] [address] [place] Creatinine [Mass/Vol] 0.50 mg/dL Low 0.51-0.95 [facility] Comment on above: Order Comment: Speci men Type: BLOOD SPECIMENOrdering Facility: [facility] Address: [address] [place] [address] Result Comment: Marilin ents receiving either N-Acetylcysteine (NAC) or Metamizole prior to venipuncture, may have falsely depressed results. Performed By: #### 2 4323-8 ####[facility] LABORATORYCLIA [id number] [address] Creatinine and Glomerular filtration rate.predicted panel (S/P/Bld) 117 mL/min/1.73m??? Normal >=60 [facility] Comment on above: Order Comment: Speci men Type: BLOOD SPECIMENOrdering Facility: [facility] Address: [address] [place] [address] Result Comment: Chrissy mated Glomerular Filtration Rate [...] actual GFR. Performed By: #### 2 4323-8 ####[facility] LABORATORYCLIA [id number] [place] [id number] [place] Glucose [Mass/Vol] 103 mg/dL High 70-100 [facility] Comment on above: Order Comment: Syd ramos Type: BLOOD SPECIMENOrdering Facility: [facility] Address: [address] [place] [address] Result Comment: The [place] Diabetes Association (ADA) provides guidance for cutoff [...] Standards of Medical Care in Diabetes 2016, [place] [employer]. Diabetes Care. 2016.39(Suppl 1).Results may be falsely elevated after the administration of Sulfapyridine.Results may be falsely depressed after the administration of Sulfasalazine. Performed By: #### 2 4323-8 ####[facility] LABORATORYCLIA [id number] [place] [address] [place] Potassium [Moles/Vol] 3.8 mmol/L Normal 3.5-5.1 [facility] Comment on above: Order Comment: Syd ramos Type: BLOOD SPECIMENOrdering Facility: [facility] Address: [address] [place] [address] Performed By: #### 2 4323-8 ####[facility]ORATORYCLIA [id number] [place] [address] [place] Protein [Mass/Vol] 6.0 g/dL Normal 6.0-8.5 [facility] Comment on above: Order Comment: Syd ramos Type: BLOOD SPECIMENOrdering Facility: [facility] Address: [address] [place], [place] [address] Performed By: #### 2 4323-8 ####[facility] LABORATORYCLIA [id number] [place] [address] [place] Sodium [Moles/Vol] 139 mmol/L Normal 136-145 [facility] Comment on above: Order Comment: Syd ramos Type: BLOOD SPECIMENOrdering Facility: [facility] Address: [address] [place] [address] Performed By: #### 2 4323-8 ####[facility]ORATORYCLIA [id number] [place] [id number] [place] Urea nitrogen [Mass/Vol] 8 mg/dL Normal 7-26 [facility] Comment on above: Order Comment: Syd richard Type: BLOOD SPECIMENOrdering Facility: [facility] Address: [address] [place] [address] Performed By: #### 2 4323-8 ####[facility]ORATORYCLIA [id number] [place] [id number] [place] THERAPY NTon 01-03-2025 THERAPY NT Normal [facility] XR ABDOMEN 1V SUPINEon 01-03 XR ABDOMEN 1V SUPINE Normal [facility] AUTOIMMUNE ENCEPHALOPATHY EV ALUATION, CSFon 01-02-2025 AMPA-RECEPTOR AB CBA, CSF Negative Normal Negative [facility] Comment on above: Order Comment: Syd ramos Type: CEREBROSPINAL FLUID SPECIMENOrdering Facility: [facility] Address: [address] [place] [address] Result Comment: ---- ADDITIONAL INFORMATION This test was developed and its performance characteristicsdetermined by [facility] in a manner consistent with CLIArequirements. This test has not been cleared or approved bythe U.S. Food and Drug Administration. Performed By: #### E NCCS ####[facility] LABCLIA [id number] [place] [address] AMPHIPHYSIN AB, CSF Negative Normal Negative [facility] Comment on above: Order Comment: Syd richard Type: CEREBROSPINAL FLUID SPECIMENOrdering Facility: [facility] Address: [address] [place] [address] Result Comment: ---- ADDITIONAL INFORMATION This test was developed and its performance characteristicsdetermined by [facility] in a manner consistent with CLIArequirements. This test has not been cleared or approved bythe U.S. Food and Drug Administration. Performed By: #### E NCCSF ####[facility] LABCLIA [id number] [place] [address] ANTI-GLIAL NUCLEAR AB TYPE 1, CSF Negative Normal Negative [facility] Comment on above: Order Comment: Syd ramos Type: CEREBROSPINAL FLUID SPECIMENOrdering Facility: [facility] Address: [address] [place] [address] Result Comment: ---- ADDITIONAL INFORMATION This test was developed and its performance characteristicsdetermined by [facility] in a manner consistent with CLIArequirements. This test has not been cleared or approved bythe U.S. Food and Drug Administration. Performed By: #### E NCCSF ####[facility] LABCLIA [id number] [place] [address] ANTI-NEURONAL AB TYPE 1, CSF Negative Normal Negative [facility] Comment on above: Order Comment: Syd ramos Type: CEREBROSPINAL FLUID SPECIMENOrdering Facility: [facility] Address: [address] [place] [address] Result Comment: ---- ADDITIONAL INFORMATION This test was developed and its performance characteristicsdetermined by [facility] in a manner consistent with CLIArequirements. This test has not been cleared or approved bythe U.S. Food and Drug Administration. Performed By: #### E NCCSF ####[facility] LABCLIA [id number] [place] [address] ANTI-NEURONAL AB TYPE 2, CSF Negative Normal Negative [facility] Comment on above: Order Comment: Syd [facility] Type: CEREBROSPINAL FLUID SPECIMENOrdering Facility: [facility] Address: [address] [place] [address] Result Comment: ---- ADDITIONAL INFORMATION This test was developed and its performance characteristicsdetermined by [facility] in a manner consistent with CLIArequirements. This test has not been cleared or approved bythe U.S. Food and Drug Administration. Performed By: #### E NCCSF ####[facility] LABCLIA [id number] [place] [address] ANTI-NEURONAL AB TYPE 3, CSF Negative Normal Negative [facility] Comment on above: Order Comment: Syd [facility] Type: CEREBROSPINAL FLUID SPECIMENOrdering Facility: [facility] Address: [address] [place] [address] Result Comment: ---- ADDITIONAL INFORMATION This test was developed and its performance characteristicsdetermined by [facility] in a manner consistent with CLIArequirements. This test has not been cleared or approved bythe .S. Food and Drug Administration. Performed By: #### E NCCSF ####[facility] LABCLIA [id number] [place] [address] CASPR2 IGG, CSF Negative Normal Negative [facility] Comment on above: Order Comment: Syd ramos Type: CEREBROSPINAL FLUID SPECIMENOrdering Facility: [facility] Address: [address] [place] [address] Result Comment: ---- ADDITIONAL INFORMATION This test was developed and its performance characteristicsdetermined by [facility] in a manner consistent with CLIArequirements. This test has not been cleared or approved bythe U.S. Food and Drug Administration. Performed By: #### E NCCSF ####[facility] LABCLIA [id number] [place] [address] CRMP-5 IGG, CSF Negative Normal Negative [facility] Comment on above: Order Comment: Syd [facility] Type: CEREBROSPINAL FLUID SPECIMENOrdering Facility: [facility] Address: [address] [place] [address] Result Comment: ---- ADDITIONAL INFORMATION This test was developed and its performance characteristicsdetermined by [facility] in a manner consistent with CLWelVUequireCook Taste Eat. This test has not been cleared or approved bythe U.S. Food and Drug Administration. Performed By: #### E NCCSF ####[facility] LABCLIA [id number] [place] [address] DPPX AB CBA, CSF Negative Normal Negative [facility] Comment on above: Order Comment: Syd [facility] Type: CEREBROSPINAL FLUID SPECIMENOrdering Facility: [facility] Address: [address] [place] [address] Result Comment: ---- ADDITIONAL INFORMATION This test was developed and its performance characteristicsdetermined by [facility] in a manner consistent with CLIArequireCook Taste Eat. This test has not been cleared or approved bythe .S. Food and Drug Administration. Performed By: #### E NCCSF ####[facility] LABCLIA [id number] [place] [address] ENCEPHALOPATHY INTERPRETATION, CSF SEE NOTE Normal [facility] Comment on above: Order Comment: [facility] Type: CEREBROSPINAL FLUID SPECIMENOrdering Facility: [facility] Address: [address] [place] [address] Result Comment: No i nformative autoantibodies were detected in thisevaluation. However, a negative result does not excludeautoimmune encephalopathy, idiopathic or paraneoplastic.Sensitivity and specificity of antibody testing areenhanced by testing both serum and CSF. Performed By: #### E NCCSF ####[facility] LABCLIA [id number] [place] [address] ABRAN-B-R AB CBA, CSF Negative Normal Negative [facility] Comment on above: Order Comment: [facility] Type: CEREBROSPINAL FLUID SPECIMENOrdering Facility: [facility] Address: [address] [place] [address] Result Comment: ---- ADDITIONAL INFORMATION This test was developed and its performance characteristicsdetermined by [facility] in a manner consistent with CLIArequirements. This test has not been cleared or approved bythe U.S. Food and Drug Administration. Performed By: #### E NCCSF ####[facility] LABCLIA [id number] [place] [address] GAD65 ANTIBODY, CSF 0.00 nmol/L Normal <= 0.02 [facility] Comment on above: Order Comment: Syd ramos Type: CEREBROSPINAL FLUID SPECIMENOrdering Facility: [facility] Address: [address] [place] [address] Result Comment: ---- ADDITIONAL INFORMATION This test was developed and its performance characteristicsdetermined by [facility] in a manner consistent with CLIArequirements. This test has not been cleared or approved bythe U.S. Food and Drug Administration. Performed By: #### Jenna NCCSF ####[facility] LABCLIA [id number] [place] [address] GFAP IFA, CSF Negative Normal Negative [facility] Comment on above: Order Comment: Syd ramos Type: CEREBROSPINAL FLUID SPECIMENOrdering Facility: [facility] Address: [address] [place] [address] Result Comment: ---- ADDITIONAL INFORMATION This test was developed and its performance characteristicsdetermined by [facility] in a manner consistent with CLIArequirements. This test has not been cleared or approved bythe U.S. Food and Drug Administration. Performed By: #### E NCCSF ####[facility] LABCLIA [id number] [place] [address] IFA NOTES - ENCCSF None. Normal [facility] Comment on above: Order Comment: Speci richard Type: CEREBROSPINAL FLUID SPECIMENOrdering Facility: [facility] Address: [address] [place] [address] Performed By: #### E NCCSF ####[facility] LABCLIA [id number] [place] [address] IGLON5 CBA, CSF Negative Normal Negative [facility] Comment on above: Order Comment: Syd ramos Type: CEREBROSPINAL FLUID SPECIMENOrdering Facility: [facility] Address: [address] [place] [address] Result Comment: ---- ADDITIONAL INFORMATION This test was developed and its performance characteristicsdetermined by [facility] in a manner consistent with CLIArequirements. This test has not been cleared or approved bythe .S. Food and Drug Administration. Performed By: #### E NCCSF ####[facility] LABCLIA [id number] [place] [address] LGI1 IGG, CSF Negative Normal Negative [facility] Comment on above: Order Comment: Syd ramos Type: CEREBROSPINAL FLUID SPECIMENOrdering Facility: [facility] Address: [address] [place] [address] Result Comment: ---- ADDITIONAL INFORMATION This test was developed and its performance characteristicsdetermined by [facility] in a manner consistent with CLIArequirements. This test has not been cleared or approved bythe U.S. Food and Drug Administration. Performed By: #### E NCCSF ####[facility] LABCLIA [id number] [place] [address] MGLUR1 AB IFA, CSF Negative Normal Negative [facility] Comment on above: Order Comment: Syd richard Type: CEREBROSPINAL FLUID SPECIMENOrdering Facility: [facility] Address: [address] [place] [address] Result Comment: ---- ADDITIONAL INFORMATION This test was developed and its performance characteristicsdetermined by [facility] in a manner consistent with CLIArequirements. This test has not been cleared or approved bythe U.S. Food and Drug Administration. Performed By: #### E NCCSF ####[facility] LABCLIA [id number] [place] [address] NEUROCHONDRIN IFA, CSF Negative Normal Negative [facility] Comment on above: Order Comment: Syd [facility] Type: CEREBROSPINAL FLUID SPECIMENOrdering Facility: [facility] Address: [address] [place] [address] Result Comment: ---- ADDITIONAL INFORMATION This test was developed and its performance characteristicsdetermined by [facility] in a manner consistent with CLIArequirements. This test has not been cleared or approved bythe .S. Food and Drug Administration. Performed By: #### E NCCSF ####[facility] LABCLIA [id number] [place] [address] NIF IFA, CSF Negative Normal Negative [facility] Comment on above: Order Comment: Syd ramos Type: CEREBROSPINAL FLUID SPECIMENOrdering Facility: [facility] Address: [address] [place] [address] Result Comment: ---- ADDITIONAL INFORMATION This test was developed and its performance characteristicsdetermined by [facility] in a manner consistent with CLIArequirements. This test has not been cleared or approved bythe U.S. Food and Drug Administration. Performed By: #### E NCCSF ####[facility] LABCLIA [id number] [place] [address] NMDA-RECEPTOR AB CBA, CSF Negative Normal Negative [facility] Comment on above: Order Comment: Syd [facility] Type: CEREBROSPINAL FLUID SPECIMENOrdering Facility: [facility] Address: [address] [place] [address] Result Comment: ---- ADDITIONAL INFORMATION This test was developed and its performance characteristicsdetermined by [facility] in a manner consistent with CLIArequirements. This test has not been cleared or approved bythe U.S. Food and Drug Administration. Performed By: #### E NCCSF ####[facility] LABCLIA [id number] [place] [address] PDE10A AB IFA, CSF Negative Normal Negative [facility] Comment on above: Order Comment: Syd ramos Type: CEREBROSPINAL FLUID SPECIMENOrdering Facility: [facility] Address: [address] [place] [address] Result Comment: ---- ADDITIONAL INFORMATION This test was developed and its performance characteristicsdetermined by [facility] in a manner consistent with CLIArequirements. This test has not been cleared or approved bythe U.S. Food and Drug Administration. Performed By: #### E NCCSF ####[facility] LABCLIA [id number] [place] [address] PURKINJE CELL CYTO AB TYPE 1, CSF Negative Normal Negative [facility] Comment on above: Order Comment: Syd ramos Type: CEREBROSPINAL FLUID SPECIMENOrdering Facility: [facility] Address: [address] [place] [address] Result Comment: ---- ADDITIONAL INFORMATION This test was developed and its performance characteristicsdetermined by [facility] in a manner consistent with CLIArequirements. This test has not been cleared or approved bythe U.S. Food and Drug Administration. Performed By: #### E NCCSF ####[facility] LABCLIA [id number] [place] [address] PURKINJE CELL CYTO AB TYPE 2, CSF Negative Normal Negative [facility] Comment on above: Order Comment: Syd [facility] Type: CEREBROSPINAL FLUID SPECIMENOrdering Facility: [facility] Address: [address] [place] [address] Result Comment: ---- ADDITIONAL INFORMATION This test was developed and its performance characteristicsdetermined by [facility] in a manner consistent with CLIArequirements. This test has not been cleared or approved bythe .S. Food and Drug Administration. Performed By: #### E NCCSF ####[facility] LABCLIA [id number] [place] [id number] PURKINJE CELL CYTO AB TYPE TR, CSF Negative Normal Negative [facility] Comment on above: Order Comment: [facility] Type: CEREBROSPINAL FLUID SPECIMENOrdering Facility: [facility] Address: [address] [place] [address] Result Comment: ---- ADDITIONAL INFORMATION This test was developed and its performance characteristicsdetermined by [facility] in a manner consistent with CLIArequirements. This test has not been cleared or approved bythe U.S. Food and Drug Administration. Performed By: #### E NCCSF ####[facility] LABCLIA [id number] [place] [id number] SEPTIN-7 IFA, CSF Negative Normal Negative [facility] Comment on above: Order Comment: [facility] Type: CEREBROSPINAL FLUID SPECIMENOrdering Facility: [facility] Address: [address] [place] [address] Result Comment: ---- ADDITIONAL INFORMATION This test was developed and its performance characteristicsdetermined by [facility] in a manner consistent with CLIArequirements. This test has not been cleared or approved bythe U.S. Food and Drug Administration. Performed By: #### E NCCSF ####[facility] LABCLIA [id number] [place] [address] TRIM46 AB IFA, CSF Negative Normal Negative [facility] Comment on above: Order Comment: Syd ramos Type: CEREBROSPINAL FLUID SPECIMENOrdering Facility: [facility] Address: [address] [place] [address] Result Comment: ---- ADDITIONAL INFORMATION This test was developed and its performance characteristicsdetermined by [facility] in a manner consistent with CLIArequirements. This test has not been cleared or approved bythe U.S. Food and Drug Administration.Test Performed by:[address] [id number] Director: Cinthia Resendiz Ph.D.; CLIA# [id number] Performed By: #### E NCCSF ####[facility] LABCLIA [id number] [place] [address] BANDS OLIGOCLONAL CSFon 12-16 CSF OLIGOCLONAL BANDS Identical oligoclo nal bands are present in both the CSF and serum. No unique bands are present in the CSF. Suggestive of systemic immune reaction with transfer of serum IgG to CSF. No evidence of intrathecal synthesis. Normal [facility] Comment on above: Order Comment: Speci men Type: CEREBROSPINAL FLUID SPECIMENOrdering Facility: [facility] Address: [address] [place] [address] Performed By: #### Prudencio DOLGCSF ####[facility] LABCLIA [id number] [place] [address] [place] STAFF REVIEW (OLIGO BANDING) Reviewed by Cristin Santoyo M.D., Ph.D [facility] Comment on above: Order Comment: Syd ramos Type: CEREBROSPINAL FLUID SPECIMENOrdering Facility: [facility] Address: [address] [place] [address] Performed By: #### Prudencio DOLGCSF ####[facility] LABCLIA [id number] [facility] [address] [place] BRIEF OP NOTon 01-02-2025 BRIEF OP NOT Normal [facility] Bacteria CSF Culton 01-03-20 25 Bacteria identified Cx Nom (CSF) CULTURE, CSF: No growth 5 days GRAM STAIN: No WBCs seen No organisms seen Normal [facility] Comment on above: Performed By: #### 6 06-4 ####[facility]ORATORYCLIA [id number] [place] [address] [place] CASE MANAGEMon 01-02-2025 CASE MANAGEM Normal [facility] CBC W Auto Differential pane l (Bld)on 01-02-2025 Basophils (Bld) [#/Vol] 10*3/uL Normal <0.11 [facility] Comment on above: Order Comment: Speci men Type: BLOOD SPECIMENOrdering Facility: [facility] Address: [address] [place] [address] Performed By: #### 5 7021-8 ####[facility]ORATORYCLIA [id number] [place] [address] [place] Basophils/100 WBC (Bld) 0.3 % Normal [facility] Comment on above: Order Comment: Speci men Type: BLOOD SPECIMENOrdering Facility: [facility] Address: [address] [place] [address] Performed By: #### 5 7021-8 ####[facility]ORATORYCLIA [id number] [place] [address] [place] Differential cell count method Nom (Bld) Auto Normal [facility] Comment on above: Order Comment: Speci men Type: BLOOD SPECIMENOrdering Facility: [facility] Address: [address] [place] [address] Performed By: #### 5 7021-8 ####[facility]ORATORYCLIA [id number] [place] [address] [place] Eosinophils (Bld) [#/Vol] 0.04 10*3/uL Normal <0.46 [facility] Comment on above: Order Comment: Speci men Type: BLOOD SPECIMENOrdering Facility: [facility] Address: [address] [place] [address] Performed By: #### 5 7021-8 ####[facility] LABORATORYCLIA [id number] [place] [id number] [place] Eosinophils/100 WBC (Bld) 0.5 % Normal [facility] Comment on above: Order Comment: Speci men Type: BLOOD SPECIMENOrdering Facility: [facility] Address: [address] [place] [address] Performed By: #### 5 7021-8 ####[facility] LABORATORYCLIA [id number] [place] [address] [place] Erythrocyte distribution width (RBC) [Ratio] 12.0 % Normal 11.5-15.0 [facility] Comment on above: Order Comment: Speci men Type: BLOOD SPECIMENOrdering Facility: [facility] Address: [address] [place] [address] Performed By: #### 5 7021-8 ####[facility] LABORATORYCLIA [id number] [place] [address] [place] Hematocrit (Bld) [Volume fraction] 41.0 % Normal 36.0-46.0 [facility] Comment on above: Order Comment: Speci men Type: BLOOD SPECIMENOrdering Facility: [facility] Address: [address] [place] [address] Performed By: #### 5 7021-8 ####[facility] LABORATORYCLIA [id number] [place] [address] [place] Hemoglobin (Bld) [Mass/Vol] 14.1 g/dL Normal 11.5-15.5 [facility] Comment on above: Order Comment: Speci men Type: BLOOD SPECIMENOrdering Facility: [facility] Address: [address] [place] [address] Performed By: #### 5 7021-8 ####[facility] LABORATORYCLIA [id number] [place] [address] [place] Immature granulocytes (Bld) [#/Vol] 0.08 10*3/uL Normal <0.10 [facility] Comment on above: Order Comment: Speci men Type: BLOOD SPECIMENOrdering Facility: [facility] Address: [address] [place] [address] Performed By: #### 5 7021-8 ####[facility]ORATORYCLIA [id number] [place] [address] [place] Immature granulocytes/100 WBC (Bld) 1.1 % Normal [facility] Comment on above: Order Comment: Speci men Type: BLOOD SPECIMENOrdering Facility: [facility] Address: [address] [place] [address] Performed By: #### 5 7021-8 ####[facility]ORATORYCLIA [id number] [place] [address] [place] Lymphocytes (Bld) [#/Vol] 1.85 10*3/uL Normal 1.00-4.00 [facility] Comment on above: Order Comment: Speci men Type: BLOOD SPECIMENOrdering Facility: [facility] Address: [address] [place] [address] Performed By: #### 5 7021-8 ####[facility]ORATORYCLIA [id number] [address] [place] Lymphocytes/100 WBC (Bld) 25.1 % Normal [facility] Comment on above: Order Comment: Speci men Type: BLOOD SPECIMENOrdering Facility: [facility] Address: [address] [place] [address] Performed By: #### 5 7021-8 ####[facility]ORATORYCLIA [id number] [place] [address] [place] MCH (RBC) [Entitic mass] 32.0 pg Normal 26.0-34.0 [facility] Comment on above: Order Comment: Speci men Type: BLOOD SPECIMENOrdering Facility: [facility] Address: [address] [place] [address] Performed By: #### 5 7021-8 ####[facility]ORATORYCLIA [id number] [place] [id number] [place] MCHC (RBC) [Mass/Vol] 34.4 g/dL Normal 30.5-36.0 [facility] Comment on above: Order Comment: Speci men Type: BLOOD SPECIMENOrdering Facility: [facility] Address: [address] [place] [address] Performed By: #### 5 7021-8 ####[facility]ORATORYCLIA [id number] [place] [address] [place] MCV (RBC) [Entitic vol] 93.2 fL Normal 80.0-100.0 [facility] Comment on above: Order Comment: Speci men Type: BLOOD SPECIMENOrdering Facility: [facility] Address: [address] [place] [address] Performed By: #### 5 7021-8 ####[facility]ORATORYCLIA [id number] [place] [address] [place] Monocytes (Bld) [#/Vol] 0.90 10*3/uL High <0.87 [facility] Comment on above: Order Comment: Speci men Type: BLOOD SPECIMENOrdering Facility: [facility] Address: [address] [place] [address] Performed By: #### 5 7021-8 ####[facility]ORATORYCLIA [id number] [address] [place] Monocytes/100 WBC (Bld) 12.2 % Normal [facility] Comment on above: Order Comment: Speci men Type: BLOOD SPECIMENOrdering Facility: [facility] Address: [address] [place] [address] Performed By: #### 5 7021-8 ####[facility]ORATORYCLIA [id number] [place] [address] [place] Neutrophils (Bld) [#/Vol] 4.47 10*3/uL Normal 1.45-7.50 [facility] Comment on above: Order Comment: Speci men Type: BLOOD SPECIMENOrdering Facility: [facility] Address: [address] [place] [address] Performed By: #### 5 7021-8 ####[facility]ORATORYCLIA [id number] [place] [id number] [place] Neutrophils/100 WBC (Bld) 60.8 % Normal [facility] Comment on above: Order Comment: Speci men Type: BLOOD SPECIMENOrdering Facility: [facility] Address: [address] [place] [address] Performed By: #### 5 7021-8 ####[facility]ATORYCLIA [id number] [place] [address] [place] Nucleated RBC (Bld) [#/Vol] 10*3/uL Normal <0.01 [facility] Comment on above: Order Comment: Speci men Type: BLOOD SPECIMENOrdering Facility: [facility] Address: [address] [place] [address] Performed By: #### 5 7021-8 ####[facility]ORATORYCLIA [id number] [place] [address] [place] Nucleated RBC/100 WBC (Bld) [Ratio] 0.0 /100 WBC Normal [facility] Comment on above: Order Comment: Speci men Type: BLOOD SPECIMENOrdering Facility: [facility] Address: [address] [place] [address] Performed By: #### 5 7021-8 ####[facility]ATORYCLIA [id number] [place] [address] [place] Platelet mean volume (Bld) [Entitic vol] 10.4 fL Normal 9.0-12.7 [facility] Comment on above: Order Comment: Speci men Type: BLOOD SPECIMENOrdering Facility: [facility] Address: [address] [place] [address] Performed By: #### 5 7021-8 ####[facility]ATORYCLIA [id number] [place] [address] [place] Platelets (Bld) [#/Vol] 159 10*3/uL Normal 150-400 [facility] Comment on above: Order Comment: Speci men Type: BLOOD SPECIMENOrdering Facility: [facility] Address: [address] [place] [address] Performed By: #### 5 7021-8 ####[facility]ORATORYCLIA [id number] [address] RBC (Bld) [#/Vol] 4.40 10*6/uL Normal 3.90-5.20 [facility] Comment on above: Order Comment: Speci men Type: BLOOD SPECIMENOrdering Facility: [facility] Address: [address] [place] [address] Performed By: #### 5 7021-8 ####[facility]ATORYCLIA [id number] [address] WBC (Bld) [#/Vol] 7.36 10*3/uL Normal 3.70-11.00 [facility] Comment on above: Order Comment: Speci men Type: BLOOD SPECIMENOrdering Facility: [facility] Address: [address] [place] [address] Performed By: #### 5 7021-8 ####[facility]ORATORYCLIA [id number] [address] CBC panel Auto (Bld)on 01-02 Erythrocyte distribution width (RBC) [Ratio] 12.1 % Normal 11.5-15.0 [facility] Comment on above: Order Comment: Speci men Type: BLOOD SPECIMENOrdering Facility: [facility] Address: [address] [place] [address] Performed By: #### 5 8410-2 ####[facility]ORATORYCLIA [id number] [address] [place]#### [address]-5 ####[facility] LABCLIA [id number] [address] [place] Hematocrit (Bld) [Volume fraction] 41.2 % Normal 36.0-46.0 [facility] Comment on above: Order Comment: Speci men Type: BLOOD SPECIMENOrdering Facility: [facility] Address: [address] [place] [address] Performed By: #### 5 8410-2 ####[facility]ORATORYCLIA [id number] [place] [address] [place]#### 28558-9 ####[facility] LABCLIA [id number] [place] [address] [place] Hemoglobin (Bld) [Mass/Vol] 14.0 g/dL Normal 11.5-15.5 [facility] Comment on above: Order Comment: Speci men Type: BLOOD SPECIMENOrdering Facility: [facility] Address: [address] [place] [address] Performed By: #### 5 8410-2 ####[facility]ATORYCLIA [id number] [place] [address] [place]#### 65886-9 ####[facility] LABCLIA [id number] [place] [address] [place] MCH (RBC) [Entitic mass] 32.3 pg Normal 26.0-34.0 [facility] Comment on above: Order Comment: Speci men Type: BLOOD SPECIMENOrdering Facility: [facility] Address: [address] [place] [address] Performed By: #### 5 8410-2 ####[facility]ORATORYCLIA [id number] [place] [address] [place]#### 72165-8 ####[facility] LABIA [id number] [place] [address] [place] MCHC (RBC) [Mass/Vol] 34.0 g/dL Normal 30.5-36.0 [facility] Comment on above: Order Comment: Speci men Type: BLOOD SPECIMENOrdering Facility: [facility] Address: [address] [place] [address] Performed By: #### 5 8410-2 ####[facility]ORATORYCLIA [id number] [address] [place]#### 03810-2 ####[facility] LABCLIA [id number] [place] [address] [place] MCV (RBC) [Entitic vol] 94.9 fL Normal 80.0-100.0 [facility] Comment on above: Order Comment: Speci men Type: BLOOD SPECIMENOrdering Facility: [facility] Address: [address] [place] [address] Performed By: #### 5 8410-2 ####[facility]ATORYCLIA [id number] [place] [address] [place]#### 76390-7 ####[facility] LABCLIA [id number] [place] [address] [place] Nucleated RBC (Bld) [#/Vol] 10*3/uL Normal <0.01 [facility] Comment on above: Order Comment: Speci men Type: BLOOD SPECIMENOrdering Facility: [facility] Address: [address] [place] [address] Performed By: #### 5 8410-2 ####[facility]ATORYCLIA [id number] [address] [place]#### 44111-6 ####[facility] LABCLIA [id number] [place] [address] [place] Platelet mean volume (Bld) [Entitic vol] 10.1 fL Normal 9.0-12.7 [facility] Comment on above: Order Comment: Speci men Type: BLOOD SPECIMENOrdering Facility: [facility] Address: [address] [place] [address] Performed By: #### 5 8410-2 ####[facility]ATORYCLIA [id number] [place] [address] [place]#### 54501-1 ####[facility] LABCLIA [id number] [place] [address] [place] Platelets (Bld) [#/Vol] 155 10*3/uL Normal 150-400 [facility] Comment on above: Order Comment: Speci men Type: BLOOD SPECIMENOrdering Facility: [facility] Address: [address] [place] [address] Performed By: #### 5 8410-2 ####[facility]ATORYCLIA [id number] [place] [address] [place]#### 67318-5 ####[facility] LABCLIA [id number] [place] [address] [place] RBC (Bld) [#/Vol] 4.34 10*6/uL Normal 3.90-5.20 [facility] Comment on above: Order Comment: Speci men Type: BLOOD SPECIMENOrdering Facility: [facility] Address: [address] [place] [address] Performed By: #### 5 8410-2 ####[facility]ATORYCLIA [id number] [place] [address] [place]#### 08470-5 ####[facility] LABCLIA [id number] [place] [address] [place] WBC (Bld) [#/Vol] 9.00 10*3/uL Normal 3.70-11.00 [facility] Comment on above: Order Comment: Speci men Type: BLOOD SPECIMENOrdering Facility: [facility] Address: [address] [place] [address] Performed By: #### 5 8410-2 ####[facility]ATORYCLIA [id number] [place] [address] [place]#### 34017-8 ####[facility] LABCLIA [id number] [place] [id number] [place] CK SerPl-cCncon 01-02-2025 CK [Catalytic activity/Vol] 80 U/L Normal 28-152 [facility] Comment on above: Order Comment: Speci men Type: BLOOD SPECIMENOrdering Facility: [facility] Address: [address] [place] [address] Performed By: #### 2 157-6 ####[facility]ORATORYCLIA [id number] [place] [id number] [place] CONSULT PROGon 01-02-2025 CONSULT PROG Normal [facility] COPPER BLOODon 01-02-2025 Copper [Mass/Vol] 108 ug/dL Normal 80-155 [facility] Comment on above: Order Comment: Speci men Type: BLOOD SPECIMENOrdering Facility: [facility] Address: [address] [place] [address] Result Comment: This test was developed, and its performance characteristics determined by the [facility] Department of Pathology and Laboratory Medicine. It has not been cleared or approved by the FDA. The [facility] Department of Pathology and Laboratory Medicine is regulated under CLIA as qualified to perform high-complexity testing. This test is used for clinical purposes. It should not be regarded as investigational or for research. Performed By: #### C OPPER ####[facility] LABCLIA [id number] [place] [id number] [place] CRP SerPl-mCncon 01-02-2025 CRP [Mass/Vol] 4.2 mg/dL High <1.0 [facility] Comment on above: Order Comment: Speci men Type: BLOOD SPECIMENOrdering Facility: [facility] Address: [address] [place] [address] Performed By: #### 2 4323-8, 1987-11 ####[facility]ORATORYCLIA [id number] [place] [address] [place] CSF MANUAL DIFFon 01-02-2025 DIF TTL, CSF Normal [facility] Comment on above: Order Comment: Speci men Type: CEREBROSPINAL FLUID SPECIMENOrdering Facility: [facility] Address: [address] [place] [address] Performed By: #### 3 4563-7, [id number], CCCSFR ####[facility]ORATORYCLIA [id number] [place] [address] [place] LYMPH%, CSF Normal [facility] Comment on above: Order Comment: Speci men Type: CEREBROSPINAL FLUID SPECIMENOrdering Facility: [facility] Address: [address] [place] [address] Result Comment: Manu al differential not performed; less than 6 WBCs reported. Performed By: #### 3 4563-7, [id number], CCCSFR ####[facility]ORATORYCLIA [id number] [place] [address] [place] MONO%, CSF Normal [facility] Comment on above: Order Comment: Speci men Type: CEREBROSPINAL FLUID SPECIMENOrdering Facility: [facility] Address: [address] [place] [address] Result Comment: Manu al differential not performed; less than 6 WBCs reported. Performed By: #### 3 4563-7, [id number], CCCSFR ####[facility]ORATORYCLIA [id number] [place] [address] [place] NEUT%, CSF Normal [facility] Comment on above: Order Comment: Speci men Type: CEREBROSPINAL FLUID SPECIMENOrdering Facility: [facility] Address: [address] [place] [address] Result Comment: Manu al differential not performed; less than 6 WBCs reported. Performed By: #### 3 4563-7, [id number], CCCSFR ####[facility]ORATORYCLIA [id number] [address] [place] CSF PATHOLOGIST INTERPRETATI ONon 01-02-2025 CSF STAFF REVIEW No pathologic abnorm alities. Very rare lymphocytes present. Normal [facility] Comment on above: Order Comment: Speci men Type: CEREBROSPINAL FLUID SPECIMENOrdering Facility: [facility] Address: [address] [place] [address] Performed By: #### 3 4563-7, [id number], CCCSFR ####[facility]ORATORYCLIA [id number] [place] [address] [facility] [place] Pathologist name Reviewed by Romana Mesa MD [facility] Comment on above: Order Comment: Speci men Type: CEREBROSPINAL FLUID SPECIMENOrdering Facility: [facility] Address: [address] [place] [address] Performed By: #### 3 4563-7, [id number], CCCSFR ####[facility]ORATORYCLIA [id number] [place] [address] [place] CYTOLOGY NON-GYNon AP DISCLAIMER [facility] Comment on above: Order Comment: Speci men Type: CEREBROSPINAL FLUID SPECIMENOrdering Facility: [facility] Address: [address] [place] [address] Result Comment: Felicia casillas Developed Test (LDT) Disclaimer:Performance characteristics of immunohistochemical, immunofluorescent, and chromogenic in-situ hybridization tests have been determined by the performing laboratory within [facility]'s [facility]ology and Laboratory Medicine Department ([facility], [facility], [facility], [facility], [facility], [facility], or [facility]) in a manner consistent with CLIA requirements. One or more of these tests may not have been cleared or approved by the FDA. [facility] is regulated under CLIA as qualified to perform high-complexity testing. These tests are used for clinical purposes. These should not be regarded as investigational or for research. Positive and negative controls stain appropriately. Performed By: #### C YTONON ####[facility] LABORATORYCLIA [id number] [place] [address] [place] CASE REPORT [facility] Comment on above: Order Comment: Speci men Type: CEREBROSPINAL FLUID SPECIMENOrdering Facility: [facility] Address: [address] [place] [address] Result Comment: [facility] Cytology Report Case: [id number] Provider: Diana Patton APRN.MANAGER PATHOLOGY Collected: 01/02/2025 02:31 PMOrdering Location: [facility] Received: 01/03/2025 08:23 AMPathologist: Romana Mesa MDSpecimen: CSF, Lumbar Puncture Performed By: #### C YTONON ####[facility]ORATORYCLIA [id number] [address] CLINICAL HISTORY Normal [facility] Comment on above: Order Comment: Speci men Type: CEREBROSPINAL FLUID SPECIMENOrdering Facility: [facility] Address: [address] [place] [address] Result Comment: Pre- op diagnosis:Altered mental status, unspecified altered mental status type [R41.82] Performed By: #### C YTONON ####[facility]ORATORYCLIA [id number] [address] DIAGNOSIS COMMENT Hypocellular specime n, rare lymphocytes are present. Normal [facility] Comment on above: Order Comment: Speci men Type: CEREBROSPINAL FLUID SPECIMENOrdering Facility: [facility] Address: [address] [place] [address] Performed By: #### C YTONON ####[facility]ORATORYCLIA [id number] [address] FINAL DIAGNOSIS Normal [facility] Comment on above: Order Comment: Speci men Type: CEREBROSPINAL FLUID SPECIMENOrdering Facility: [facility] Address: [address] [place] [address] Result Comment: A - CSF, Lumbar Puncture: - Negative for malignant cells. at 1151 EDT Performed By: #### C YTONON ####[facility]ORATORYCLIA [id number] [address] FINAL PERFORMING LAB Normal [facility] Comment on above: Order Comment: Speci men Type: CEREBROSPINAL FLUID SPECIMENOrdering Facility: [facility] Address: [address] [place] [address] Result Comment: Tech nical component, tree trimming line technician screening performed at: [facility], [address] [place] [address] CLIA: [id number] interpretation performed at: [facility], [address] [place] [address] CLIA# [id number] Director: Romana Mesa MD Performed By: #### C YTONON ####[facility]ORATORYCLIA [id number] [address] GROSS DESCRIPTION Normal [facility] Comment on above: Order Comment: Speci men Type: CEREBROSPINAL FLUID SPECIMENOrdering Facility: [facility] Address: [address] [place] [address] Result Comment: A. C SF, Lumbar Puncture2 cc clear colorless fluid with scant particles. 2 Cytospin prepared. Performed By: #### C YTONON ####[facility]ORATORYCLIA [id number] [address] ORDER COMMENT Normal [facility] Comment on above: Order Comment: Speci men Type: CEREBROSPINAL FLUID SPECIMENOrdering Facility: [facility] Address: [address] [place] [address] Result Comment: Pre- op diagnosis:Altered mental status, unspecified altered mental status type [R41.82] Performed By: #### C YTONON ####[facility]ORATORYCLIA [id number] [address] Cell count panel (CSF)on Clarity (CSF) Clear Normal Clear [facility] Comment on above: Order Comment: Speci men Type: CEREBROSPINAL FLUID SPECIMENOrdering Facility: [facility] Address: [address] [place] [address] Performed By: #### 3 4563-7, [id number], CCCSFR ####[facility]ORATORYCLIA [id number] [address] Clarity (Unsp spec) Not Indicated Normal Clear [facility] Comment on above: Order Comment: Speci men Type: CEREBROSPINAL FLUID SPECIMENOrdering Facility: [facility] Address: [address] [place] [address] Performed By: #### 3 4563-7, [id number], CCCSFR ####[facility]ORATORYCLIA [id number] [address] Color (CSF) Colorless Normal Colorless [facility] Comment on above: Order Comment: Speci men Type: CEREBROSPINAL FLUID SPECIMENOrdering Facility: [facility] Address: [address] [place], [place] [address] Performed By: #### 3 4563-7, [id number], CCCSFR ####[facility] LABORATORYCLIA [id number] [address] OF [facility] Color (Spun CSF) Not Indicated Normal Colorless [facility] Comment on above: Order Comment: Speci men Type: CEREBROSPINAL FLUID SPECIMENOrdering Facility: [facility] Address: [address] [place] [address] Performed By: #### 3 4563-7, [id number], CCCSFR ####[facility]ORATORYCLIA [id number] [address] CSF TUBE NUMBER Tube 4 Normal [facility] Comment on above: Order Comment: Speci men Type: CEREBROSPINAL FLUID SPECIMENOrdering Facility: [facility] Address: [address] [place], [place] [address] Performed By: #### 3 4563-7, [id number], CCCSFR ####[facility] LABORATORYCLIA [id number] [address] OF [facility] RBC Manual cnt (CSF) [#/Vol] 0 cells/uL Normal 0-[address] [place] [address] Comment on above: Order Comment: Speci men Type: CEREBROSPINAL FLUID SPECIMENOrdering Facility: [facility] Address: [address] [place] [id number] Performed By: #### 3 4563-7, [id number], CCCSFR ####[facility]ORATORYCLIA [id number] [address] WBC Manual cnt (CSF) [#/Vol] 1 cells/uL Normal 0-5 [facility] Comment on above: Order Comment: Speci men Type: CEREBROSPINAL FLUID SPECIMENOrdering Facility: [facility] Address: [address] [place] [address] Performed By: #### 3 4563-7, [id number], [facility]ERSFR ####[facility] LABORATORYCLIA [id number] [place] [id number] [place] Ceruloplasmin SerPl-mCncon 0 01-02-2025 Ceruloplasmin [Mass/Vol] 27 mg/dL Normal 16-45 [facility] Comment on above: Order Comment: Speci men Type: BLOOD SPECIMENOrdering Facility: [facility] Address: [address] [place] [address] Performed By: #### 2 064-4 ####[facility] LABCLIA [id number] [address] OF [facility] Comprehensive metabolic 2000 panelon 01-02-2025 Albumin [Mass/Vol] 2.6 g/dL Low 3.2-5.0 [facility] Center Comment on above: Order Comment: Speci men Type: BLOOD SPECIMENOrdering Facility: [facility] Address: [address] [place] [address] Performed By: #### 2 4323-8 ####[facility] LABORATORYCLIA [id number] [place] [address] [place] ALP [Catalytic activity/Vol] 54 U/L Normal 45-117 [facility] Comment on above: Order Comment: Speci men Type: BLOOD SPECIMENOrdering Facility: [facility] Address: [address] [place] [address] Performed By: #### 2 4323-8 ####[facility] LABORATORYCLIA [id number] [place] [address] [place] ALT [Catalytic activity/Vol] 12 U/L Low 13-61 [facility] Comment on above: Order Comment: Speci men Type: BLOOD SPECIMENOrdering Facility: [facility] Address: [address] [place] [address] Result Comment: Resu lts may be falsely depressed after the administration of Sulfasalazine and/or Sulfapyridine. Performed By: #### 2 4323-8 ####[facility]ORATORYCLIA [id number] [place] [id number] [place] Anion gap [Moles/Vol] 6 mmol/L Normal 5-16 [facility] Comment on above: Order Comment: Speci men Type: BLOOD SPECIMENOrdering Facility: [facility] Address: [address] [place] [address] Performed By: #### 2 4323-8 ####[facility]ATORYCLIA [id number] [place] [address] [place] AST [Catalytic activity/Vol] 16 U/L Normal 8-34 [facility] Comment on above: Order Comment: Speci men Type: BLOOD SPECIMENOrdering Facility: [facility] Address: [address] [place] [address] Result Comment: Resu lts may be falsely depressed after the administration of Sulfasalazine and/or Sulfapyridine. Performed By: #### 2 4323-8 ####[facility]ORATORYCLIA [id number] [place] [address] [place] Bilirubin [Mass/Vol] 0.4 mg/dL Normal 0.2-1.0 [facility] Comment on above: Order Comment: Speci men Type: BLOOD SPECIMENOrdering Facility: [facility] Address: [address] [place] [address] Performed By: #### 2 4323-8 ####[facility]ORATORYCLIA [id number] [place] [id number] [place] Calcium [Mass/Vol] 8.8 mg/dL Normal 8.5-10.5 [facility] Comment on above: Order Comment: Speci men Type: BLOOD SPECIMENOrdering Facility: [facility] Address: [address] [place] [address] Performed By: #### 2 4323-8 ####[facility]ORATORYCLIA [id number] [place] [id number] [place] Chloride [Moles/Vol] 104 mmol/L Normal 98-107 [facility] Comment on above: Order Comment: Speci men Type: BLOOD SPECIMENOrdering Facility: [facility] Address: [address] [place] [address] Performed By: #### 2 4323-8 ####[facility]ORATORYCLIA [id number] [place] [id number] [place] CO2 [Moles/Vol] 25 mmol/L Normal 21-32 [facility] Comment on above: Order Comment: Speci men Type: BLOOD SPECIMENOrdering Facility: [facility] Address: [address] [place] [address] Performed By: #### 2 4323-8 ####[facility]ORATORYCLIA [id number] [place] [address] [place] Creatinine [Mass/Vol] 0.48 mg/dL Low 0.51-0.95 [facility] Comment on above: Order Comment: Speci men Type: BLOOD SPECIMENOrdering Facility: [facility] Address: [address] [place] [address] Result Comment: Marilin ents receiving either N-Acetylcysteine (NAC) or Metamizole prior to venipuncture, may have falsely depressed results. Performed By: #### 2 4323-8 ####[facility]ATORYCLIA [id number] [place] [address] [facility] [place] Creatinine and Glomerular filtration rate.predicted panel (S/P/Bld) 118 mL/min/1.73m??? Normal >=60 [facility] Comment on above: Order Comment: Speci men Type: BLOOD SPECIMENOrdering Facility: [facility] Address: [address] [place] [address] Result Comment: Chrissy mated Glomerular Filtration Rate [...] actual GFR. Performed By: #### 2 4323-8 ####[facility]ATORYCLIA [id number] [place] [id number] [place] Glucose [Mass/Vol] 117 mg/dL High 70-100 [facility] Comment on above: Order Comment: Speci men Type: BLOOD SPECIMENOrdering Facility: [facility] Address: [address] [place], [place] [address] Result Comment: The [place] Diabetes Association (ADA) provides guidance for cutoff [...] Standards of Medical Care in Diabetes 2016, [place] Diabetes Association. Diabetes Care. 2016.39(Suppl 1).Results may be falsely elevated after the administration of Sulfapyridine.Results may be falsely depressed after the administration of Sulfasalazine. Performed By: #### 2 4323-8 ####[facility]ATORYCLIA [id number] [place] [id number] [place] Potassium [Moles/Vol] 3.8 mmol/L Normal 3.5-5.1 [facility] Comment on above: Order Comment: Speci men Type: BLOOD SPECIMENOrdering Facility: [facility] Address: [address] [place] [address] Performed By: #### 2 4323-8 ####[facility]ATORYCLIA [id number] [place] [id number] [place] Protein [Mass/Vol] 6.0 g/dL Normal 6.0-8.5 [facility] Comment on above: Order Comment: Speci men Type: BLOOD SPECIMENOrdering Facility: [facility] Address: [address] [place] [address] Performed By: #### 2 4323-8 ####[facility]ATORYCLIA [id number] [place] [id number] [place] Sodium [Moles/Vol] 135 mmol/L Low 136-145 [facility] Comment on above: Order Comment: Speci men Type: BLOOD SPECIMENOrdering Facility: [facility] Address: [address] [place] [address] Performed By: #### 2 4323-8 ####[facility]ATORYCLIA [id number] [place] [id number] [place] Urea nitrogen [Mass/Vol] 8 mg/dL Normal 7-26 [facility] Comment on above: Order Comment: Speci men Type: BLOOD SPECIMENOrdering Facility: [facility] Address: [address] [place] [address] Performed By: #### 2 4323-8 ####[facility]ORYCLIA [id number] [place] [address] [place] Albumin [Mass/Vol] 2.7 g/dL Low 3.2-5.0 [facility] Comment on above: Order Comment: Speci men Type: BLOOD SPECIMENOrdering Facility: [facility] Address: [address] [place] [address] Performed By: #### 2 4323-8, 1987-11 ####[facility]ATORYCLIA [id number] [place] [id number] [place] ALP [Catalytic activity/Vol] 55 U/L Normal 45-117 [facility] Comment on above: Order Comment: Speci men Type: BLOOD SPECIMENOrdering Facility: [facility] Address: [address] [place] [address] Performed By: #### 2 4323-8, 1987-11 ####[facility]ATORYCLIA [id number] [place] [id number] [place] ALT [Catalytic activity/Vol] 11 U/L Low 13-61 [facility] Comment on above: Order Comment: Speci men Type: BLOOD SPECIMENOrdering Facility: [facility] Address: [address] [place] [address] Result Comment: Resu lts may be falsely depressed after the administration of Sulfasalazine and/or Sulfapyridine. Performed By: #### 2 43238, 1987-11 ####[facility]ATORYCLIA [id number] [place] [address] [place] Anion gap [Moles/Vol] 8 mmol/L Normal 5-16 [facility] Comment on above: Order Comment: Speci men Type: BLOOD SPECIMENOrdering Facility: [facility] Address: [address] [place] [address] Performed By: #### 2 4328, 1987-11 ####[facility]ATORYCLIA [id number] [place] [address] [place] AST [Catalytic activity/Vol] 18 U/L Normal 8-34 [facility] Comment on above: Order Comment: Speci men Type: BLOOD SPECIMENOrdering Facility: [facility] Address: [address] [place] [address] Result Comment: Resu lts may be falsely depressed after the administration of Sulfasalazine and/or Sulfapyridine. Performed By: #### 2 43238, 1987-11 ####[facility]ATORYCLIA [id number] [place] [address] [place] Bilirubin [Mass/Vol] 0.5 mg/dL Normal 0.2-1.0 [facility] Comment on above: Order Comment: Speci men Type: BLOOD SPECIMENOrdering Facility: [facility] Address: [address] [place], [place] [address] Performed By: #### 2 43238, 1987-11 ####[facility]ATORYCLIA [id number] [place] [id number] [place] Calcium [Mass/Vol] 9.2 mg/dL Normal 8.5-10.5 [facility] Comment on above: Order Comment: Speci men Type: BLOOD SPECIMENOrdering Facility: [facility] Address: [address] [place] [address] Performed By: #### 2 43238, 1987-11 ####[facility]ATORYCLIA [id number] [place] [address] [place] Chloride [Moles/Vol] 105 mmol/L Normal 98-107 [facility] Comment on above: Order Comment: Speci men Type: BLOOD SPECIMENOrdering Facility: [facility] Address: [address] [place] [address] Performed By: #### 2 4328, 1987-11 ####[facility]ATORYCLIA [id number] [place] [address] [place] CO2 [Moles/Vol] 24 mmol/L Normal 21-32 [facility] Comment on above: Order Comment: Speci men Type: BLOOD SPECIMENOrdering Facility: [facility] Address: [address] [place] [address] Performed By: #### 2 43238, 1987-11 ####[facility]ATORYCLIA [id number] [address] [place] Creatinine [Mass/Vol] 0.45 mg/dL Low 0.51-0.95 [facility] Comment on above: Order Comment: Speci men Type: BLOOD SPECIMENOrdering Facility: [facility] Address: [address] [place] [address] Result Comment: Marilin ents receiving either N-Acetylcysteine (NAC) or Metamizole prior to venipuncture, may have falsely depressed results. Performed By: #### 2 43238, 1987-11 ####[facility]ATORYCLIA [id number] [address] [place] Creatinine and Glomerular filtration rate.predicted panel (S/P/Bld) 120 mL/min/1.73m??? Normal >=60 [facility] Comment on above: Order Comment: Speci men Type: BLOOD SPECIMENOrdering Facility: [facility] Address: [address] [place] [address] Result Comment: Chrissy mated Glomerular Filtration Rate [...] GFR. Performed By: #### 2 43209-22, 1987-11 ####[facility]ORATORYCLIA [id number] [place] [address] [place] Glucose [Mass/Vol] 122 mg/dL High 70-100 [facility] Comment on above: Order Comment: Syd ramos Type: BLOOD SPECIMENOrdering Facility: [facility] Address: [address] [place] [address] Result Comment: The [place] Diabetes Association (ADA) provides guidance for cutoff [...] Standards of Medical Care in Diabetes 2016, [place] Diabetes Association. Diabetes Care. 2016.39(Suppl 1).Results may be falsely elevated after the administration of Sulfapyridine.Results may be falsely depressed after the administration of Sulfasalazine. Performed By: #### 2 4323-02, 1987-11 ####[facility]ATORYCLIA [id number] [place] [id number] [place] Potassium [Moles/Vol] 3.9 mmol/L Normal 3.5-5.1 [facility] Comment on above: Order Comment: Syd ramos Type: BLOOD SPECIMENOrdering Facility: [facility] Address: [address] [place] [address] Performed By: #### 2 43209-22, 1987-11 ####[facility]ATORYCLIA [id number] [place] [id number] [place] Protein [Mass/Vol] 5.9 g/dL Low 6.0-8.5 [facility] Comment on above: Order Comment: Irmai men Type: BLOOD SPECIMENOrdering Facility: [facility] Address: [address] [place] [address] Performed By: #### 2 43238, 1987-11 ####[facility]ATORYCLIA [id number] [place] [id number] [place] Sodium [Moles/Vol] 137 mmol/L Normal 136-145 [facility] Comment on above: Order Comment: Irmai richard Type: BLOOD SPECIMENOrdering Facility: [facility] Address: [address] [place] [address] Performed By: #### 2 43209-22, 1987-11 ####[facility]ATORYCLIA [id number] [place] [id number] [place] Urea nitrogen [Mass/Vol] 8 mg/dL Normal 7-26 [facility] Comment on above: Order Comment: Speci men Type: BLOOD SPECIMENOrdering Facility: [facility] Address: [address] [place] [address] Performed By: #### 2 4328, 1987-11 ####[facility]ATORYCLIA [id number] [place] [id number] [place] Glucose CSF-mCncon 01-02- 5 Glucose (CSF) [Mass/Vol] 88 mg/dL High 40-70 [facility] Comment on above: Order Comment: Speci men Type: CEREBROSPINAL FLUID SPECIMENOrdering Facility: [facility] Address: [address] [place] [address] Result Comment: Lumb ar CSF glucose values of healthy patients are approximately 60% of the plasma values and must always be compared with a concurrently measured plasma value for adequate clinical interpretation.References: 1. Glucose HK (GLUC3) [package insert V 12.0 [place]]. [employer], [place], [place]. November 2015. 2. Christiano HDelvin, Gosia, H. (2015). Chapter 7: Glucose and Lactate. FDelvin Quiros al.(eds.), Cerebrospinal Fluid in Clinical Neurology. Thomas: Coubic. Performed By: #### 2 342-4, 2880-3 ####[facility]ATORYCLIA [id number] [address] [place] HbA1c (Bld)on 01-02-2025 Average glucose Estimated from glycated hemoglobin (Bld) [Mass/Vol] 80 mg/dL Normal [facility] Comment on above: Order Comment: Syd ramos Type: BLOOD SPECIMENOrdering Facility: [facility] Address: [address] [place] [address] Result Comment: eAG: (Estimated average glucose) is a calculated value from HgbA1c and is sales promotion representative of the average blood glucose level in the last 2-3 month period. Performed By: #### 5 8410-2 ####[facility]ITALCLIA [id number] [address]#### [address]-3 ####[facility] LABIA [id number] [address] [place] HbA1c (Bld) [Mass fraction] 4.4 % Normal 4.3-5.6 [facility] Comment on above: Order Comment: Syd ramos Type: BLOOD SPECIMENOrdering Facility: [facility] Address: [address] [place] [address] Result Comment: Amer [place] Diabetes Association guidelines indicate that patients with HgbA1c in the range 5.7-6.4% are at increased risk for development of diabetes, and intervention by lifestyle modification may be beneficial. HgbA1c greater or equal to 6.5% is considered diagnostic of diabetes. Performed By: #### 5 8410-2 ####[facility]ATORYCLIA [id number] [address] [place]#### [address]-6 ####[facility] LABIA [id number] [address] [place] Meningitis+Encephalitis path ogens DNA and RNA panel MACIE+non-probe (CSF)on 01-02-2025 C. gattii+neoformans DNA MACIE+non-probe Ql (CSF) Not detected Normal Not detected [facility] Comment on above: Order Comment: Speci men Type: CEREBROSPINAL FLUID SPECIMENOrdering Facility: [facility] Address: [address] [place] [address] Performed By: #### 8 2180-1 ####[facility]ATORYCLIA [id number] [address] [place] CMV DNA MACIE+non-probe Ql (CSF) Not detected Normal Not detected [facility] Comment on above: Order Comment: Speci men Type: CEREBROSPINAL FLUID SPECIMENOrdering Facility: [facility] Address: [address] [place] [address] Performed By: #### 8 218-1 ####[facility]ATORYCLIA [id number] [address] [place] E. coli K1 DNA MACIE+non-probe Ql (CSF) Not detected Normal Not detected [facility] Comment on above: Order Comment: Speci men Type: CEREBROSPINAL FLUID SPECIMENOrdering Facility: [facility] Address: [address] [place] [address] Performed By: #### 8 2180-1 ####[facility]ATORYCLIA [id number] [address] [place] Enterovirus RNA MACIE+non-probe Ql (CSF) Not detected Normal Not detected [facility] Comment on above: Order Comment: Speci men Type: CEREBROSPINAL FLUID SPECIMENOrdering Facility: [facility] Address: [address] [place] [address] Performed By: #### 8 2180-1 ####[facility]ATORYCLIA [id number] [address] [place] H. influenzae DNA MACIE+non-probe Ql (CSF) Not detected Normal Not detected [facility] Comment on above: Order Comment: Speci men Type: CEREBROSPINAL FLUID SPECIMENOrdering Facility: [facility] Address: [address] [place] [address] Performed By: #### 8 2180-1 ####[facility]ATORYCLIA [id number] [place] [address] [place] HHV 6 DNA MACIE+non-probe Ql (CSF) Not detected Normal Not detected [facility] Comment on above: Order Comment: Speci men Type: CEREBROSPINAL FLUID SPECIMENOrdering Facility: [facility] Address: [address] [place] [address] Performed By: #### 8 2180-1 ####[facility]ATORYCLIA [id number] [place] [address] [place] HSV 1 DNA MACIE+non-probe Ql (CSF) Not detected Normal Not detected [facility] Comment on above: Order Comment: Speci men Type: CEREBROSPINAL FLUID SPECIMENOrdering Facility: [facility] Address: [address] [place] [address] Performed By: #### 8 2180-1 ####[facility]ATORYCLIA [id number] [place] [address] [place] HSV 2 DNA MACIE+non-probe Ql (CSF) Not detected Normal Not detected [facility] Comment on above: Order Comment: Speci men Type: CEREBROSPINAL FLUID SPECIMENOrdering Facility: [facility] Address: [address] [place] [address] Performed By: #### 8 2180-1 ####[facility]ATORYCLIA [id number] [place] [address] [place] L. monocytogenes DNA MACIE+non-probe Ql (CSF) Not detected Normal Not detected [facility] Comment on above: Order Comment: Speci men Type: CEREBROSPINAL FLUID SPECIMENOrdering Facility: [facility] Address: [address] [place] [address] Performed By: #### 8 2180-1 ####[facility]ATORYCLIA [id number] [place] [address] [place] N. meningitidis DNA MACIE+non-probe Ql (CSF) Not detected Normal Not detected [facility] Comment on above: Order Comment: Speci men Type: CEREBROSPINAL FLUID SPECIMENOrdering Facility: [facility] Address: [address] [place] [address] Performed By: #### 8 2180-1 ####[facility]ATORYCLIA [id number] [address] [place] Parechovirus A RNA MACIE+non-probe Ql (CSF) Not detected Normal Not detected [facility] Comment on above: Order Comment: Speci men Type: CEREBROSPINAL FLUID SPECIMENOrdering Facility: [facility] Address: [address] [place] [address] Performed By: #### 8 2180-1 ####[facility]ORYCLIA [id number] [address] [place] S. agalactiae DNA MACIE+non-probe Ql (CSF) Not detected Normal Not detected [facility] Comment on above: Order Comment: Speci men Type: CEREBROSPINAL FLUID SPECIMENOrdering Facility: [facility] Address: [address] [place] [address] Performed By: #### 8 2180-1 ####[facility]ATORYCLIA [id number] [address] [place] S. pneumoniae DNA MACIE+non-probe Ql (CSF) Not detected Normal Not detected [facility] Comment on above: Order Comment: Speci men Type: CEREBROSPINAL FLUID SPECIMENOrdering Facility: [facility] Address: [address] [place] [address] Performed By: #### 8 2180-1 ####[facility]ATORYCLIA [id number] [place] [address] [place] VZV DNA MACIE+non-probe Ql (CSF) Not detected Normal Not detected [facility] Comment on above: Order Comment: Speci men Type: CEREBROSPINAL FLUID SPECIMENOrdering Facility: [facility] Address: [address] [place] [address] Performed By: #### 8 2180-1 ####[facility]ATORYCLIA [id number] [place] [address] [place] NURSING PROGon 01-02-2025 NURSING PROG Normal [facility] PT panel Coag (PPP)on 2024 INR Coag (PPP) [Relative time] 1.1 {INR} Normal 0.9-1.3 [facility] Comment on above: Order Comment: Syd ramos Type: BLOOD SPECIMENOrdering Facility: [facility] Address: [address] [place] [address] Result Comment: Leyda min K Antagonist (VKA) Therapeutic Range: INR 2 to 3 (Target INR of 2.5)Note: For patients treated with VKA drugs, such as warfarin, the [place] [employer] 2012 Guideline recommends [...] al. Chest 2012, 141:7S-47SNishimshannen RA, et al. [facility] 2017, 70: 252-289 Performed By: #### 3 4528-0, 25299-6 ####[facility]ORATORYCLIA [id number] [place] [address] [place] PT Coag (PPP) [Time] 12.1 s Normal 9.7-13.0 [facility] Comment on above: Order Comment: Syd ramos Type: BLOOD SPECIMENOrdering Facility: [facility] Address: [address] [place] [address] Performed By: #### 3 4528-0, 90709-2 ####[facility]ORATORYCLIA [id number] [place] [address] [place] Prot CSF-mCncon 01-02-2025 Protein (CSF) [Mass/Vol] 21 mg/dL Normal 15-45 [facility] Comment on above: Order Comment: Syd ramos Type: CEREBROSPINAL FLUID SPECIMENOrdering Facility: [facility] Address: [address] [place] [address] Result Comment: Samp les containing Amikacin, Gentamicin, Kanamycin, Tobramycin, and Neomycin Sulfate may cause falsely increased [employer] UCFP assay results. Performed By: #### 2 342-4, 2880-3 ####[facility]ORATORYCLIA [id number] [place] [id number] [place] VITAMIN B1 (THIAMINE), WHOLE BLOODon 01-02-2025 Thiamine (Bld) [Moles/Vol] 249.3 nmol/L High 84.3-213.3 [facility] Comment on above: Order Comment: Speci men Type: BLOOD SPECIMENOrdering Facility: [facility] Address: [address] [place] [address] Result Comment: This assay measures the concentration of thiamine diphosphate (TDP), the primary active form of vitamin B1. Approximately 90 percent of vitamin B1 present in whole blood is TDP. Thiamine and thiamine monophosphate, which comprise the remaining 10 percent, are not measured.This test was developed, and its performance characteristics determined by the [facility] Department of Pathology and Laboratory Medicine. It has not been cleared or approved by the FDA. The [facility] Department of Pathology and Laboratory Medicine is regulated under CLIA as qualified to perform high-complexity testing. This test is used for clinical purposes. It should not be regarded as investigational or for research. Performed By: #### B 1WB ####[facility] LABCLIA [id number] [place] [id number] [place] XR LUMBAR PUNCTURE DIAGNOSTI Con 01-02-2025 XR LUMBAR PUNCTURE DIAGNOSTIC Normal [facility] aPTT PPPon 01-02-2025 aPTT Coag (PPP) [Time] 32.1 s Normal 23.0-32.4 [facility] Comment on above: Order Comment: Speci men Type: BLOOD SPECIMENOrdering Facility: [facility] Address: [address] [place] [address] Performed By: #### 3 4528-0, 33548-0 ####[facility]ORATORYCLIA [id number] [place] [id number] [place] ANES POSTPROC EVALon 025 ANES POSTPROC EVAL Normal [facility] ANES PRE-OPon 01-01-2025 ANES PRE-OP Normal [facility] CBC panel Auto (Bld)on 01-01 Erythrocyte distribution width (RBC) [Ratio] 12.2 % Normal 11.5-15.0 [facility] Comment on above: Order Comment: Speci men Type: BLOOD SPECIMENOrdering Facility: [facility] Address: [address] [place] [address] Performed By: #### 5 8410-2 ####[facility]ORATORYCLIA [id number] [address] [place] Hematocrit (Bld) [Volume fraction] 40.1 % Normal 36.0-46.0 [facility] Comment on above: Order Comment: Speci men Type: BLOOD SPECIMENOrdering Facility: [facility] Address: [address] [place] [address] Performed By: #### 5 8410-2 ####[facility]ORATORYCLIA [id number] [address] [place] Hemoglobin (Bld) [Mass/Vol] 13.6 g/dL Normal 11.5-15.5 [facility] Comment on above: Order Comment: Speci men Type: BLOOD SPECIMENOrdering Facility: [facility] Address: [address] [place] [address] Performed By: #### 5 8410-2 ####[facility]ORATORYCLIA [id number] [place] [address] [place] MCH (RBC) [Entitic mass] 32.0 pg Normal 26.0-34.0 [facility] Comment on above: Order Comment: Speci men Type: BLOOD SPECIMENOrdering Facility: [facility] Address: [address] [place] [address] Performed By: #### 5 8410-2 ####[facility]ORATORYCLIA [id number] [place] [address] [place] MCHC (RBC) [Mass/Vol] 33.9 g/dL Normal 30.5-36.0 [facility] Comment on above: Order Comment: Speci men Type: BLOOD SPECIMENOrdering Facility: [facility] Address: [address] [place] [address] Performed By: #### 5 8410-2 ####[facility]ORATORYCLIA [id number] [place] [address] [place] MCV (RBC) [Entitic vol] 94.4 fL Normal 80.0-100.0 [facility] Comment on above: Order Comment: Speci men Type: BLOOD SPECIMENOrdering Facility: [facility] Address: [address] [place] [address] Performed By: #### 5 8410-2 ####[facility]ORATORYCLIA [id number] [place] [address] [place] Nucleated RBC (Bld) [#/Vol] 10*3/uL Normal <0.01 [facility] Comment on above: Order Comment: Speci men Type: BLOOD SPECIMENOrdering Facility: [facility] Address: [address] [place] [address] Performed By: #### 5 8410-2 ####[facility]ATORYCLIA [id number] [place] [address] [place] Platelet mean volume (Bld) [Entitic vol] 10.2 fL Normal 9.0-12.7 [facility] Comment on above: Order Comment: Speci men Type: BLOOD SPECIMENOrdering Facility: [facility] Address: [address] [place] [address] Performed By: #### 5 8410-2 ####[facility]ORATORYCLIA [id number] [place] [address] [place] Platelets (Bld) [#/Vol] 161 10*3/uL Normal 150-400 [facility] Comment on above: Order Comment: Speci men Type: BLOOD SPECIMENOrdering Facility: [facility] Address: [address] [place] [address] Performed By: #### 5 8410-2 ####[facility]ORATORYCLIA [id number] [address] OF [facility] RBC (Bld) [#/Vol] 4.25 10*6/uL Normal 3.90-5.20 [facility] Comment on above: Order Comment: Speci men Type: BLOOD SPECIMENOrdering Facility: [facility] Address: [address] [place] [address] Performed By: #### 5 8410-2 ####[facility]ATORYCLIA [id number] [address] WBC (Bld) [#/Vol] 7.44 10*3/uL Normal 3.70-11.00 [facility] Comment on above: Order Comment: Speci men Type: BLOOD SPECIMENOrdering Facility: [facility] Address: [address] [place] [address] Performed By: #### 5 8410-2 ####[facility]ORATORYCLIA [id number] [address] Comprehensive metabolic 2000 panelon 01-01-2025 Albumin [Mass/Vol] 2.7 g/dL Low 3.2-5.0 [facility] Comment on above: Order Comment: Speci men Type: BLOOD SPECIMENOrdering Facility: [facility] Address: [address] [place] [address] Performed By: #### 2 4323-8 ####[facility]ATORYCLIA [id number] [address] ALP [Catalytic activity/Vol] 54 U/L Normal 45-117 [facility] Comment on above: Order Comment: Speci men Type: BLOOD SPECIMENOrdering Facility: [facility] Address: [address] [place] [address] Performed By: #### 2 4323-8 ####[facility]ATORYCLIA [id number] [address] ALT [Catalytic activity/Vol] 12 U/L Low 13-61 [facility] Comment on above: Order Comment: Speci men Type: BLOOD SPECIMENOrdering Facility: [facility] Address: [address] [place] [address] Result Comment: Resu lts may be falsely depressed after the administration of Sulfasalazine and/or Sulfapyridine. Performed By: #### 2 4323-8 ####[facility]ORATORYCLIA [id number] [place] [id number] [place] Anion gap [Moles/Vol] 9 mmol/L Normal 5-16 [facility] Comment on above: Order Comment: Speci men Type: BLOOD SPECIMENOrdering Facility: [facility] Address: [address] [place] [address] Performed By: #### 2 4323-8 ####[facility]ORATORYCLIA [id number] [place] [address] [place] AST [Catalytic activity/Vol] 19 U/L Normal 8-34 [facility] Comment on above: Order Comment: Speci men Type: BLOOD SPECIMENOrdering Facility: [facility] Address: [address] [place] [address] Result Comment: Resu lts may be falsely depressed after the administration of Sulfasalazine and/or Sulfapyridine. Performed By: #### 2 4323-8 ####[facility]ORATORYCLIA [id number] [place] [address] [place] Bilirubin [Mass/Vol] 0.6 mg/dL Normal 0.2-1.0 [facility] Comment on above: Order Comment: Speci men Type: BLOOD SPECIMENOrdering Facility: [facility] Address: [address] [place] [address] Performed By: #### 2 4323-8 ####[facility]ATORYCLIA [id number] [place] [id number] [place] Calcium [Mass/Vol] 8.8 mg/dL Normal 8.5-10.5 [facility] Comment on above: Order Comment: Speci men Type: BLOOD SPECIMENOrdering Facility: [facility] Address: [address] [place] [address] Performed By: #### 2 4323-8 ####[facility]ATORYCLIA [id number] [place] [address] [place] Chloride [Moles/Vol] 106 mmol/L Normal 98-107 [facility] Comment on above: Order Comment: Speci men Type: BLOOD SPECIMENOrdering Facility: [facility] Address: [address] [place] [address] Performed By: #### 2 4323-8 ####[facility]ORATORYCLIA [id number] [place] [address] [place] CO2 [Moles/Vol] 22 mmol/L Normal 21-32 [facility] Comment on above: Order Comment: Speci men Type: BLOOD SPECIMENOrdering Facility: [facility] Address: [address] [place] [address] Performed By: #### 2 4323-8 ####[facility]ATORYCLIA [id number] [place] [address] [place] Creatinine [Mass/Vol] 0.47 mg/dL Low 0.51-0.95 [facility] Comment on above: Order Comment: Speci men Type: BLOOD SPECIMENOrdering Facility: [facility] Address: [address] [place] [address] Result Comment: Marilin ents receiving either N-Acetylcysteine (NAC) or Metamizole prior to venipuncture, may have falsely depressed results. Performed By: #### 2 4323-8 ####[facility]ORATORYCLIA [id number] [address] OF [facility] Creatinine and Glomerular filtration rate.predicted panel (S/P/Bld) 118 mL/min/1.73m??? Normal >=60 [facility] Comment on above: Order Comment: Speci men Type: BLOOD SPECIMENOrdering Facility: [facility] Address: [address] [place] [address] Result Comment: Chrissy mated Glomerular Filtration Rate [...] actual GFR. Performed By: #### 2 4323-8 ####[facility]ORATORYCLIA [id number] [place] [id number] [place] Glucose [Mass/Vol] 73 mg/dL Normal 70-100 [facility] Comment on above: Order Comment: Syd ramos Type: BLOOD SPECIMENOrdering Facility: [facility] Address: [address] [place] [address] Result Comment: The [place] [employer] Association (ADA) provides guidance for cutoff [...] Standards of Medical Care in Diabetes 2016, [place] [employer]. Diabetes Care. 2016.39(Suppl 1).Results may be falsely elevated after the administration of Sulfapyridine.Results may be falsely depressed after the administration of Sulfasalazine. Performed By: #### 2 4323-8 ####[facility]ORATORYCLIA [id number] [place] [address] [place] Potassium [Moles/Vol] 4.0 mmol/L Normal 3.5-5.1 [facility] Comment on above: Order Comment: Syd ramos Type: BLOOD SPECIMENOrdering Facility: [facility] Address: [address] [place] [id number] Performed By: #### 2 4323-8 ####[facility]ORATORYCLIA [id number] [place] [address] [place] Protein [Mass/Vol] 5.9 g/dL Low 6.0-8.5 [facility] Comment on above: Order Comment: Speci men Type: BLOOD SPECIMENOrdering Facility: [facility] Address: [address] [place] [address] Performed By: #### 2 4323-8 ####[facility]ORATORYCLIA [id number] [place] [address] [place] Sodium [Moles/Vol] 137 mmol/L Normal 136-145 [facility] Comment on above: Order Comment: Speci men Type: BLOOD SPECIMENOrdering Facility: [facility] Address: [address] [place] [address] Performed By: #### 2 4323-8 ####[facility]ATORYCLIA [id number] [place] [id number] [place] Urea nitrogen [Mass/Vol] mg/dL Low 7-26 [facility] Comment on above: Order Comment: Speci men Type: BLOOD SPECIMENOrdering Facility: [facility] Address: [address] [place] [address] Performed By: #### 2 4323-8 ####[facility]ATORYCLIA [id number] [place] [id number] [place] HCG Preg Ur Qlon 01-01-2025 HCG ( test) Ql (U) Negative Normal Negative [facility] Comment on above: Order Comment: Speci men Type: URINE SPECIMENOrdering Facility: [facility] Address: [address] [place] [address] Result Comment: This test is intended to aid in the early detection of . Very dilute urine samples, as indicated by a low specific gravity, may not contain sales promotion representative levels of hCG. This test detects [...] for . Performed By: #### 2 106-3 ####[facility]ORATORYCLIA [id number] [place] [address] [place] MRI BRAIN WO/W IVCONon 01-01 MRI BRAIN WO/W IVCON Normal [facility] NUTRITIONon 01-01-2025 NUTRITION Normal [facility] THERAPY NTon 01-01-2025 THERAPY NT Normal [facility] THERAPY NT Normal [facility] THERAPY NT Normal [facility] Basic metabolic 2000 panelon 12-31-2024 Anion gap [Moles/Vol] 9 mmol/L Normal 5-16 [facility] Comment on above: Order Comment: Speci men Type: BLOOD SPECIMENOrdering Facility: [facility] Address: [address] [place] [address] Performed By: #### 2 432-2, 2142-12 ####[facility]ATORYCLIA [id number] [place] [address] [place] Calcium [Mass/Vol] 9.0 mg/dL Normal 8.5-10.5 [facility] Comment on above: Order Comment: Speci men Type: BLOOD SPECIMENOrdering Facility: [facility] Address: [address] [place] [id number] Performed By: #### 2 4321-2, 2142-12 ####[facility]ATORYCLIA [id number] [place] [address] [place] Chloride [Moles/Vol] 108 mmol/L High 98-107 [facility] Comment on above: Order Comment: Speci men Type: BLOOD SPECIMENOrdering Facility: [facility] Address: [address] [place] [address] Performed By: #### 2 4321-2, 2142-12 ####[facility]ATORYCLIA [id number] [place] [id number] [place] CO2 [Moles/Vol] 23 mmol/L Normal 21-32 [facility] Comment on above: Order Comment: Speci men Type: BLOOD SPECIMENOrdering Facility: [facility] Address: [address] [place] [address] Performed By: #### 2 432-2, 2142-12 ####[facility]ATORYCLIA [id number] [place] [address] [place] Creatinine [Mass/Vol] 0.56 mg/dL Normal 0.51-0.95 [facility] Comment on above: Order Comment: Syd ramos Type: BLOOD SPECIMENOrdering Facility: [facility] Address: [address] [place] [address] Result Comment: Marilin ents receiving either N-Acetylcysteine (NAC) or Metamizole prior to venipuncture, may have falsely depressed results. Performed By: #### 2 432-, 2142-12 ####[facility]ATORYCLIA [id number] [place] [id number] [facility] Creatinine and Glomerular filtration rate.predicted panel (S/P/Bld) 113 mL/min/1.73m??? Normal >=60 [facility] Comment on above: Order Comment: Syd ramos Type: BLOOD SPECIMENOrdering Facility: [facility] Address: [address] [place] [address] Result Comment: Chrissy mated Glomerular Filtration Rate [...] GFR. Performed By: #### 2 432-, 2142-12 ####[facility]ATORYCLIA [id number] [place] [id number] [place] Glucose [Mass/Vol] 68 mg/dL Low 70-100 [facility] Comment on above: Order Comment: Syd ramos Type: BLOOD SPECIMENOrdering Facility: [facility] Address: [address] [place] [address] Result Comment: The [place] Diabetes Association (ADA) provides guidance for cutoff [...] Standards of Medical Care in Diabetes 2016, [place] [employer]. Diabetes Care. 2016.39(Suppl 1).Results may be falsely elevated after the administration of Sulfapyridine.Results may be falsely depressed after the administration of Sulfasalazine. Performed By: #### 2 4320-08, 2142-12 ####[facility]ATORYCLIA [id number] [place] [address] [place] Potassium [Moles/Vol] 3.8 mmol/L Normal 3.5-5.1 [facility] Comment on above: Order Comment: Syd ramos Type: BLOOD SPECIMENOrdering Facility: [facility] Address: [address] [place] [address] Performed By: #### 2 4320-08, 2142-12 ####[facility]ATORYCLIA [id number] [address] STATES OF [facility] Sodium [Moles/Vol] 140 mmol/L Normal 136-145 [facility] Comment on above: Order Comment: Syd ramos Type: BLOOD SPECIMENOrdering Facility: [facility] Address: [address] [place] [address] Performed By: #### 2 4320-08, 2142-12 ####[facility]ATORYCLIA [id number] [place] [address] [place] Urea nitrogen [Mass/Vol] 12 mg/dL Normal 7-26 [facility] Comment on above: Order Comment: Irmai richard Type: BLOOD SPECIMENOrdering Facility: [facility] Address: [address] [place] [address] Performed By: #### 2 4320-08, 2142-12 ####[facility]ATORYCLIA [id number] [address] STATES OF [facility] CASE MANAGEMon 12-31-2024 CASE MANAGEM Normal [facility] CBC panel Auto (Bld)on 12-31 Erythrocyte distribution width (RBC) [Ratio] 12.4 % Normal 11.5-15.0 [facility] Comment on above: Order Comment: Speci men Type: BLOOD SPECIMENOrdering Facility: [facility] Address: [address] [place] [address] Performed By: #### 5 8410-2 ####[facility]ATORYCLIA [id number] [address] Hematocrit (Bld) [Volume fraction] 42.9 % Normal 36.0-46.0 [facility] Comment on above: Order Comment: Speci men Type: BLOOD SPECIMENOrdering Facility: [facility] Address: [address] [place] [address] Performed By: #### 5 8410-2 ####[facility]ATORYCLIA [id number] [address] Hemoglobin (Bld) [Mass/Vol] 14.4 g/dL Normal 11.5-15.5 [facility] Comment on above: Order Comment: Speci men Type: BLOOD SPECIMENOrdering Facility: [facility] Address: [address] [place] [address] Performed By: #### 5 8410-2 ####[facility]ATORYCLIA [id number] [address] [place] MCH (RBC) [Entitic mass] 32.3 pg Normal 26.0-34.0 [facility] Comment on above: Order Comment: Speci men Type: BLOOD SPECIMENOrdering Facility: [facility] Address: [address] [place] [address] Performed By: #### 5 8410-2 ####[facility]ATORYCLIA [id number] [place] [id number] [place] MCHC (RBC) [Mass/Vol] 33.6 g/dL Normal 30.5-36.0 [facility] Comment on above: Order Comment: Speci men Type: BLOOD SPECIMENOrdering Facility: [facility] Address: [address] [place] [address] Performed By: #### 5 8410-2 ####[facility]ATORYCLIA [id number] [place] [address] [facility] MCV (RBC) [Entitic vol] 96.2 fL Normal 80.0-100.0 [facility] Comment on above: Order Comment: Speci men Type: BLOOD SPECIMENOrdering Facility: [facility] Address: [address] [place] [address] Performed By: #### 5 8410-2 ####[facility]ATORYCLIA [id number] [address] [place] Nucleated RBC (Bld) [#/Vol] 10*3/uL Normal <0.01 [facility] Comment on above: Order Comment: Speci men Type: BLOOD SPECIMENOrdering Facility: [facility] Address: [address] [place] [address] Performed By: #### 5 8410-2 ####[facility]ATORYCLIA [id number] [address] [place] Platelet mean volume (Bld) [Entitic vol] 10.2 fL Normal 9.0-12.7 [facility] Comment on above: Order Comment: Speci men Type: BLOOD SPECIMENOrdering Facility: [facility] Address: [address] [place] [address] Performed By: #### 5 8410-2 ####[facility]ATORYCLIA [id number] [address] [place] Platelets (Bld) [#/Vol] 179 10*3/uL Normal 150-400 [facility] Comment on above: Order Comment: Speci men Type: BLOOD SPECIMENOrdering Facility: [facility] Address: [address] [place] [address] Performed By: #### 5 8410-2 ####[facility]ATORYCLIA [id number] [address] RBC (Bld) [#/Vol] 4.46 10*6/uL Normal 3.90-5.20 [facility] Comment on above: Order Comment: Speci men Type: BLOOD SPECIMENOrdering Facility: [facility] Address: [address] [place] [address] Performed By: #### 5 8410-2 ####[facility]ATORYCLIA [id number] [address] [place] WBC (Bld) [#/Vol] 6.66 10*3/uL Normal 3.70-11.00 [facility] Comment on above: Order Comment: Speci men Type: BLOOD SPECIMENOrdering Facility: [facility] Address: [address] [place] [address] Performed By: #### 5 8410-2 ####[facility]ATORYCLIA [id number] [address] CONSULT PROGon 12-31-2024 CONSULT PROG Normal [facility] CONSULT PROG Normal [facility] Cortis SerPl-mCncon 01-01-20 25 Cortisol [Mass/Vol] 13.2 ug/dL Normal 3.4-22.5 [facility] Comment on above: Order Comment: Speci men Type: BLOOD SPECIMENOrdering Facility: [facility] Address: [address] [place] [address] Result Comment: PM: Approximately half of A.M. values Performed By: #### 2 4321-2, 2143-6 ####[facility]ATORYCLIA [id number] [address] [place] TOXICOLOGY SCREEN, ROUTINE U RINEon 12-31-2024 Amphetamines Confirm (U) [Mass/Vol] Negative Normal Negative [facility] Comment on above: Order Comment: Speci men Type: URINE SPECIMENOrdering Facility: [facility] Address: [address] [place] [address] Result Comment: Cuto ff threshold at 1000 ng/mL. Performed By: #### U TOX2 ####[facility]ORATORYCLIA [id number] [place] [address] [place] BARBITURATES, URINE Negative Normal Negative [facility] Comment on above: Order Comment: Speci men Type: URINE SPECIMENOrdering Facility: [facility] Address: [address] [place] [address] Result Comment: Cuto ff threshold at 200 ng/mL. Performed By: #### U TOX2 ####[facility]ORATORYCLIA [id number] [place] [address] [place] BENZODIAZEPINES, UR Negative Normal Negative [facility] Comment on above: Order Comment: Speci men Type: URINE SPECIMENOrdering Facility: [facility] Address: [address] [place] [address] Result Comment: Cuto ff threshold at 200 ng/mL. Performed By: #### U TOX2 ####[facility]ATORYCLIA [id number] [place] [address] [place] Cannabinoids Screen Ql (U) Negative Normal Negative [facility] Comment on above: Order Comment: Speci men Type: URINE SPECIMENOrdering Facility: [facility] Address: [address] [place] [address] Result Comment: Cuto ff threshold at 50 ng/mL. Performed By: #### U TOX2 ####[facility]ATORYCLIA [id number] [place] [address] [place] Cocaine Ql (U) Negative Normal Negative [facility] Comment on above: Order Comment: Speci men Type: URINE SPECIMENOrdering Facility: [facility] Address: [address] [place] [address] Result Comment: Cuto ff threshold at 300 ng/mL. Performed By: #### U TOX2 ####[facility]ATORYCLIA [id number] [place] [address] [place] Opiates Screen Ql (U) Negative Normal Negative [facility] Comment on above: Order Comment: Speci men Type: URINE SPECIMENOrdering Facility: [facility] Address: [address] [place] [address] Result Comment: Cuto ff threshold at 300 ng/mL. Performed By: #### U TOX2 ####[facility]ATORYCLIA [id number] [place] [id number] [place] Phencyclidine Ql (U) Negative Normal Negative [facility] Comment on above: Order Comment: Speci men Type: URINE SPECIMENOrdering Facility: [facility] Address: [address] [place] [address] Result Comment: Cuto ff threshold at 25 ng/mL. Performed By: #### U TOX2 ####[facility]ATORYCLIA [id number] [place] [id number] [place] XR ABDOMEN 1V SUPINEon 12-31 XR ABDOMEN 1V SUPINE Normal [facility] Basic metabolic 2000 panelon 12-30-2024 Anion gap [Moles/Vol] 11 mmol/L Normal 5-16 [facility] Comment on above: Order Comment: Speci men Type: BLOOD SPECIMENOrdering Facility: [facility] Address: [address] [place] [address] Performed By: #### 2 4321-2, , 2156-12 ####[facility]ORATORYCLIA [id number] [place] [id number] [place] Calcium [Mass/Vol] 9.3 mg/dL Normal 8.5-10.5 [facility] Comment on above: Order Comment: Speci men Type: BLOOD SPECIMENOrdering Facility: [facility] Address: [address] [place] [address] Performed By: #### 2 4321-2, , 2156-12 ####[facility]ATORYCLIA [id number] [place] [id number] [place] Chloride [Moles/Vol] 107 mmol/L Normal 98-107 [facility] Comment on above: Order Comment: Speci men Type: BLOOD SPECIMENOrdering Facility: [facility] Address: [address] [place], [place] [address] Performed By: #### 2 4321-2, , 2156-12 ####[facility]ORATORYCLIA [id number] [place] [id number] [place] CO2 [Moles/Vol] 22 mmol/L Normal 21-32 [facility] Comment on above: Order Comment: Speci men Type: BLOOD SPECIMENOrdering Facility: [facility] Address: [address] [place] [address] Performed By: #### 2 4321-2, , 2156-12 ####[facility]ORATORYCLIA [id number] [place] [id number] [place] Creatinine [Mass/Vol] 0.48 mg/dL Low 0.51-0.95 [facility] Comment on above: Order Comment: Speci men Type: BLOOD SPECIMENOrdering Facility: [facility] Address: [address] [place] [address] Result Comment: Marilin ents receiving either N-Acetylcysteine (NAC) or Metamizole prior to venipuncture, may have falsely depressed results. Performed By: #### 2 4321-2, , 2156-12 ####[facility]ATORYCLIA [id number] [place] [id number] [place] Creatinine and Glomerular filtration rate.predicted panel (S/P/Bld) 118 mL/min/1.73m??? Normal >=60 [facility] Comment on above: Order Comment: Speci men Type: BLOOD SPECIMENOrdering Facility: [facility] Address: [address] [place] [address] Result Comment: Chrissy mated Glomerular Filtration Rate [...] Performed By: #### 2 4321-2, , 2156-12 ####[facility]ATORYCLIA [id number] [place] [id number] [place] Glucose [Mass/Vol] 88 mg/dL Normal 70-100 [facility] Comment on above: Order Comment: Syd ramos Type: BLOOD SPECIMENOrdering Facility: [facility] Address: [address] [place], [place] [address] Result Comment: The [place] Diabetes Association (ADA) provides guidance for cutoff [...] Standards of Medical Care in Diabetes 2016, [place] [employer]. Diabetes Care. 2016.39(Suppl 1).Results may be falsely elevated after the administration of Sulfapyridine.Results may be falsely depressed after the administration of Sulfasalazine. Performed By: #### 2 4321-2, , 2156-12 ####[facility]ATORYCLIA [id number] [place] [address] [place] Potassium [Moles/Vol] 3.8 mmol/L Normal 3.5-5.1 [facility] Comment on above: Order Comment: Syd ramos Type: BLOOD SPECIMENOrdering Facility: [facility] Address: [address] [place] [address] Performed By: #### 2 4321-2, , 2156-12 ####[facility]ORATORYCLIA [id number] [place] [address] [place] Sodium [Moles/Vol] 140 mmol/L Normal 136-145 [facility] Comment on above: Order Comment: Syd ramos Type: BLOOD SPECIMENOrdering Facility: [facility] Address: [address] [place] [address] Performed By: #### 2 4321-2, , 2156-12 ####[facility]ATORYCLIA [id number] [place] [address] [place] Urea nitrogen [Mass/Vol] 5 mg/dL Low 7-26 [facility] Comment on above: Order Comment: Speci men Type: BLOOD SPECIMENOrdering Facility: [facility] Address: [address] [place] [address] Performed By: #### 2 4321-2, 11988-0, 2157-6 ####[facility]ATORYCLIA [id number] [address] [place] CBC panel Auto (Bld)on 12-30 Erythrocyte distribution width (RBC) [Ratio] 12.4 % Normal 11.5-15.0 [facility] Comment on above: Order Comment: Speci men Type: BLOOD SPECIMENOrdering Facility: [facility] Address: [address] [place] [address] Performed By: #### 5 8410-2 ####[facility]ATORYCLIA [id number] [address] STATES OF [facility] Hematocrit (Bld) [Volume fraction] 43.4 % Normal 36.0-46.0 [facility] Comment on above: Order Comment: Speci men Type: BLOOD SPECIMENOrdering Facility: [facility] Address: [address] [place] [address] Performed By: #### 5 8410-2 ####[facility]ATORYCLIA [id number] [address] [place] Hemoglobin (Bld) [Mass/Vol] 14.8 g/dL Normal 11.5-15.5 [facility] Comment on above: Order Comment: Speci men Type: BLOOD SPECIMENOrdering Facility: [facility] Address: [address] [place] [address] Performed By: #### 5 8410-2 ####[facility]ATORYCLIA [id number] [address] [place] MCH (RBC) [Entitic mass] 32.1 pg Normal 26.0-34.0 [facility] Comment on above: Order Comment: Speci men Type: BLOOD SPECIMENOrdering Facility: [facility] Address: [address] [place] [address] Performed By: #### 5 8410-2 ####[facility]ATORYCLIA [id number] [address] MCHC (RBC) [Mass/Vol] 34.1 g/dL Normal 30.5-36.0 [facility] Comment on above: Order Comment: Speci men Type: BLOOD SPECIMENOrdering Facility: [facility] Address: [address] [place] [address] Performed By: #### 5 8410-2 ####[facility]ATORYCLIA [id number] [address] [place] MCV (RBC) [Entitic vol] 94.1 fL Normal 80.0-100.0 [facility] Comment on above: Order Comment: Speci men Type: BLOOD SPECIMENOrdering Facility: [facility] Address: [address] [place] [address] Performed By: #### 5 8410-2 ####[facility]ATORYCLIA [id number] [address] [place] Nucleated RBC (Bld) [#/Vol] 10*3/uL Normal <0.01 [facility] Comment on above: Order Comment: Speci men Type: BLOOD SPECIMENOrdering Facility: [facility] Address: [address] [place] [address] Performed By: #### 5 8410-2 ####[facility]ATORYCLIA [id number] [address] [place] Platelet mean volume (Bld) [Entitic vol] 9.7 fL Normal 9.0-12.7 [facility] Comment on above: Order Comment: Speci men Type: BLOOD SPECIMENOrdering Facility: [facility] Address: [address] [place] [address] Performed By: #### 5 8410-2 ####[facility]ATORYCLIA [id number] [address] [place] Platelets (Bld) [#/Vol] 211 10*3/uL Normal 150-400 [facility] Comment on above: Order Comment: Speci men Type: BLOOD SPECIMENOrdering Facility: [facility] Address: [address] [place] [address] Performed By: #### 5 8410-2 ####[facility]ATORYCLIA [id number] [place] [address] [place] RBC (Bld) [#/Vol] 4.61 10*6/uL Normal 3.90-5.20 [facility] Comment on above: Order Comment: Speci men Type: BLOOD SPECIMENOrdering Facility: [facility] Address: [address] [place] [address] Performed By: #### 5 8410-2 ####[facility]ATORYCLIA [id number] [address] OF [facility] WBC (Bld) [#/Vol] 7.50 10*3/uL Normal 3.70-11.00 [facility] Comment on above: Order Comment: Speci men Type: BLOOD SPECIMENOrdering Facility: [facility] Address: [address] [place] [address] Performed By: #### 5 8410-2 ####[facility]ATORYCLIA [id number] [address] [place] CK SerPl-cCncon 12-30-2024 CK [Catalytic activity/Vol] 512 U/L High 28-152 [facility] Comment on above: Order Comment: Speci men Type: BLOOD SPECIMENOrdering Facility: [facility] Address: [address] [place] [address] Performed By: #### 2 4321-2, 81190-5, 2157-6 ####[facility]ATORYCLIA [id number] [place] [address] [place] CONSULTon 12-30-2024 CONSULT Normal [facility] Magnesium SerPl-mCncon 12-30 Magnesium [Mass/Vol] 1.7 mg/dL Normal 1.6-2.6 [facility] Comment on above: Order Comment: Speci men Type: BLOOD SPECIMENOrdering Facility: [facility] Address: [address] [place] [address] [place] [address] Performed By: #### 2 4321-2, 76712-8, 2157-6 ####[facility]ATORYCLIA [id number] [place] [address] [place] ALLIED HEALTHon 12-29-2024 ALLIED HEALTH Normal [facility] Basic metabolic 2000 panelon 12-29-2024 Anion gap [Moles/Vol] 11 mmol/L Normal 5-16 [facility] Comment on above: Order Comment: Speci men Type: BLOOD SPECIMENOrdering Facility: [facility] Address: [address] [place] [address] Performed By: #### 2 4321-2 ####[facility]ATORYCLIA [id number] [place] [id number] [place] Calcium [Mass/Vol] 9.1 mg/dL Normal 8.5-10.5 [facility] Comment on above: Order Comment: Speci men Type: BLOOD SPECIMENOrdering Facility: [facility] Address: [address] [place] [address] Performed By: #### 2 4321-2 ####[facility]ATORYCLIA [id number] [place] [address] [place] Chloride [Moles/Vol] 109 mmol/L High 98-107 [facility] Comment on above: Order Comment: Speci men Type: BLOOD SPECIMENOrdering Facility: [facility] Address: [address] [place] [address] Performed By: #### 2 4321-2 ####[facility]ATORYCLIA [id number] [place] [id number] [place] CO2 [Moles/Vol] 20 mmol/L Low 21-32 [facility] Comment on above: Order Comment: Speci men Type: BLOOD SPECIMENOrdering Facility: [facility] Address: [address] [place] [address] Performed By: #### 2 4321-2 ####[facility]ATORYCLIA [id number] [place] [address] [place] Creatinine [Mass/Vol] 0.52 mg/dL Normal 0.51-0.95 [facility] Comment on above: Order Comment: Sdy ramos Type: BLOOD SPECIMENOrdering Facility: [facility] Address: [address] [place] [address] Result Comment: Marilin ents receiving either N-Acetylcysteine (NAC) or Metamizole prior to venipuncture, may have falsely depressed results. Performed By: #### 2 4321-2 ####[facility]ATORYCLIA [id number] [address] Creatinine and Glomerular filtration rate.predicted panel (S/P/Bld) 115 mL/min/1.73m??? Normal >=60 [facility] Comment on above: Order Comment: Syd ramos Type: BLOOD SPECIMENOrdering Facility: [facility] Address: [address] [place] [address] Result Comment: Chrisys mated Glomerular Filtration Rate (eGFR) is calculated [...] actual GFR. Performed By: #### 2 4321-2 ####[facility]ATORYCLIA [id number] [address] [place] Glucose [Mass/Vol] 103 mg/dL High 70-100 [facility] Comment on above: Order Comment: Syd ramos Type: BLOOD SPECIMENOrdering Facility: [facility] Address: [address] [place] [address] Result Comment: The [place] Diabetes Association (ADA) provides guidance for cutoff [...] Standards of Medical Care in Diabetes 2016, [place] [employer]. Diabetes Care. 2016.39(Suppl 1).Results may be falsely elevated after the administration of Sulfapyridine.Results may be falsely depressed after the administration of Sulfasalazine. Performed By: #### 2 4321-2 ####[facility]ATORYCLIA [id number] [place] [address] [place] Potassium [Moles/Vol] 3.8 mmol/L Normal 3.5-5.1 [facility] Comment on above: Order Comment: Syd ramos Type: BLOOD SPECIMENOrdering Facility: [facility] Address: [address] [place] [address] Performed By: #### 2 4321-2 ####[facility]ATORYCLIA [id number] [place] [address] [place] Sodium [Moles/Vol] 140 mmol/L Normal 136-145 [facility] Comment on above: Order Comment: Syd ramos Type: BLOOD SPECIMENOrdering Facility: [facility] Address: [address] [place] [address] Performed By: #### 2 4321-2 ####[facility]ATORYCLIA [id number] [address] [place] Urea nitrogen [Mass/Vol] 5 mg/dL Low 7-26 [facility] Comment on above: Order Comment: Syd ramos Type: BLOOD SPECIMENOrdering Facility: [facility] Address: [address] [place] [address] Performed By: #### 2 4321-2 ####[facility]ORYCLIA [id number] [place] [address] [place] CBC W Auto Differential pane l (Bld)on 12-29-2024 Basophils (Bld) [#/Vol] 0.04 10*3/uL Normal <0.11 [facility] Comment on above: Order Comment: Speci men Type: BLOOD SPECIMENOrdering Facility: [facility] Address: [address] [place] [address] Performed By: #### 5 7021-8 ####[facility]ATORYCLIA [id number] [place] [address] [place] Basophils/100 WBC (Bld) 0.5 % Normal [facility] Comment on above: Order Comment: Speci men Type: BLOOD SPECIMENOrdering Facility: [facility] Address: [address] [place] [address] Performed By: #### 5 7021-8 ####[facility]ATORYCLIA [id number] [place] [address] [place] Differential cell count method Nom (Bld) Auto Normal [facility] Comment on above: Order Comment: Speci men Type: BLOOD SPECIMENOrdering Facility: [facility] Address: [address] [place] [address] Performed By: #### 5 7021-8 ####[facility]ATORYCLIA [id number] [place] [address] [place] Eosinophils (Bld) [#/Vol] 0.14 10*3/uL Normal <0.46 [facility] Comment on above: Order Comment: Speci men Type: BLOOD SPECIMENOrdering Facility: [facility] Address: [address] [place] [address] Performed By: #### 5 7021-8 ####[facility]ATORYCLIA [id number] [place] [address] [place] Eosinophils/100 WBC (Bld) 1.7 % Normal [facility] Comment on above: Order Comment: Speci men Type: BLOOD SPECIMENOrdering Facility: [facility] Address: [address] [place] [address] Performed By: #### 5 7021-8 ####[facility]ATORYCLIA [id number] [address] [place] Erythrocyte distribution width (RBC) [Ratio] 12.3 % Normal 11.5-15.0 [facility] Comment on above: Order Comment: Speci men Type: BLOOD SPECIMENOrdering Facility: [facility] Address: [address] [place] [address] Performed By: #### 5 7021-8 ####[facility]ATORYCLIA [id number] [place] [address] [place] Hematocrit (Bld) [Volume fraction] 42.6 % Normal 36.0-46.0 [facility] Comment on above: Order Comment: Speci men Type: BLOOD SPECIMENOrdering Facility: [facility] Address: [address] [place] [address] Performed By: #### 5 7021-8 ####[facility]ATORYCLIA [id number] [place] [address] [place] Hemoglobin (Bld) [Mass/Vol] 14.5 g/dL Normal 11.5-15.5 [facility] Comment on above: Order Comment: Speci men Type: BLOOD SPECIMENOrdering Facility: [facility] Address: [address] [place] [address] Performed By: #### 5 7021-8 ####[facility]ATORYCLIA [id number] [address] [place] Immature granulocytes (Bld) [#/Vol] 0.07 10*3/uL Normal <0.10 [facility] Comment on above: Order Comment: Speci men Type: BLOOD SPECIMENOrdering Facility: [facility] Address: [address] [place] [address] Performed By: #### 5 7021-8 ####[facility]ATORYCLIA [id number] [address] [place] Immature granulocytes/100 WBC (Bld) 0.8 % Normal [facility] Comment on above: Order Comment: Speci men Type: BLOOD SPECIMENOrdering Facility: [facility] Address: [address] [place] [address] Performed By: #### 5 7021-8 ####[facility]ATORYCLIA [id number] [place] [address] [place] Lymphocytes (Bld) [#/Vol] 2.83 10*3/uL Normal 1.00-4.00 [facility] Comment on above: Order Comment: Speci men Type: BLOOD SPECIMENOrdering Facility: [facility] Address: [address] [place] [address] Performed By: #### 5 7021-8 ####[facility]ATORYCLIA [id number] [address] [place] Lymphocytes/100 WBC (Bld) 33.7 % Normal [facility] Comment on above: Order Comment: Speci men Type: BLOOD SPECIMENOrdering Facility: [facility] Address: [address] [place] [address] Performed By: #### 5 7021-8 ####[facility]ATORYCLIA [id number] [address] [place] MCH (RBC) [Entitic mass] 31.5 pg Normal 26.0-34.0 [facility] Comment on above: Order Comment: Speci men Type: BLOOD SPECIMENOrdering Facility: [facility] Address: [address] [place] [address] Performed By: #### 5 7021-8 ####[facility]ORYCLIA [id number] [address] [place] MCHC (RBC) [Mass/Vol] 34.0 g/dL Normal 30.5-36.0 [facility] Comment on above: Order Comment: Speci men Type: BLOOD SPECIMENOrdering Facility: [facility] Address: [address] [place] [address] Performed By: #### 5 7021-8 ####[facility]ATORYCLIA [id number] [address] [place] MCV (RBC) [Entitic vol] 92.6 fL Normal 80.0-100.0 [facility] Comment on above: Order Comment: Speci men Type: BLOOD SPECIMENOrdering Facility: [facility] Address: [address] [place] [address] Performed By: #### 5 7021-8 ####[facility]ATORYCLIA [id number] [place] [address] [place] Monocytes (Bld) [#/Vol] 1.10 10*3/uL High <0.87 [facility] Comment on above: Order Comment: Speci men Type: BLOOD SPECIMENOrdering Facility: [facility] Address: [address] [place] [address] Performed By: #### 5 7021-8 ####[facility]ATORYCLIA [id number] [place] [id number] [place] Monocytes/100 WBC (Bld) 13.1 % Normal [facility] Comment on above: Order Comment: Speci men Type: BLOOD SPECIMENOrdering Facility: [facility] Address: [address] [place] [address] Performed By: #### 5 7021-8 ####[facility]ATORYCLIA [id number] [place] [address] [place] Neutrophils (Bld) [#/Vol] 4.22 10*3/uL Normal 1.45-7.50 [facility] Comment on above: Order Comment: Speci men Type: BLOOD SPECIMENOrdering Facility: [facility] Address: [address] [place] [address] Performed By: #### 5 7021-8 ####[facility]ATORYCLIA [id number] [place] [id number] [place] Neutrophils/100 WBC (Bld) 50.2 % Normal [facility] Comment on above: Order Comment: Speci men Type: BLOOD SPECIMENOrdering Facility: [facility] Address: [address] [place] [address] Performed By: #### 5 7021-8 ####[facility]ATORYCLIA [id number] [place] [id number] [place] Nucleated RBC (Bld) [#/Vol] 10*3/uL Normal <0.01 [facility] Comment on above: Order Comment: Speci men Type: BLOOD SPECIMENOrdering Facility: [facility] Address: [address] [place] [address] Performed By: #### 5 7021-8 ####[facility]ATORYCLIA [id number] [place] [id number] [place] Nucleated RBC/100 WBC (Bld) [Ratio] 0.0 /100 WBC Normal [facility] Comment on above: Order Comment: Speci men Type: BLOOD SPECIMENOrdering Facility: [facility] Address: [address] [place] [address] Performed By: #### 5 7021-8 ####[facility]ATORYCLIA [id number] [place] [address] [place] Platelet mean volume (Bld) [Entitic vol] 10.1 fL Normal 9.0-12.7 [facility] Comment on above: Order Comment: Speci men Type: BLOOD SPECIMENOrdering Facility: [facility] Address: [address] [place] [address] Performed By: #### 5 7021-8 ####[facility]ATORYCLIA [id number] [place] [address] [place] Platelets (Bld) [#/Vol] 242 10*3/uL Normal 150-400 [facility] Comment on above: Order Comment: Speci men Type: BLOOD SPECIMENOrdering Facility: [facility] Address: [address] [place] [address] Performed By: #### 5 7021-8 ####[facility]ATORYCLIA [id number] [place] [address] [place] RBC (Bld) [#/Vol] 4.60 10*6/uL Normal 3.90-5.20 [facility] Comment on above: Order Comment: Speci men Type: BLOOD SPECIMENOrdering Facility: [facility] Address: [address] [place] [address] Performed By: #### 5 7021-8 ####[facility]ATORYCLIA [id number] [place] [address] [place] WBC (Bld) [#/Vol] 8.40 10*3/uL Normal 3.70-11.00 [facility] Comment on above: Order Comment: Speci men Type: BLOOD SPECIMENOrdering Facility: [facility] Address: [address] [place] [address] Performed By: #### 5 7021-8 ####[facility]ATORYCLIA [id number] [place] [id number] [place] CONSULTon 12-29-2024 CONSULT Normal [facility] NURSING PROGon 12-29-2024 NURSING PROG Normal [facility] THERAPY NTon 12-29-2024 THERAPY NT Normal [facility] ALLIED HEALTHon 12-28-2024 ALLIED HEALTH Normal [facility] Basic metabolic 2000 panelon 12-28-2024 Anion gap [Moles/Vol] 6 mmol/L Normal 5-16 [facility] Comment on above: Order Comment: Speci men Type: BLOOD SPECIMENOrdering Facility: [facility] Address: [address] [place] [address] Performed By: #### 2 4321-2 ####[facility]ATORYCLIA [id number] [place] [id number] [place] Calcium [Mass/Vol] 8.6 mg/dL Normal 8.5-10.5 [facility] Comment on above: Order Comment: Speci men Type: BLOOD SPECIMENOrdering Facility: [facility] Address: [address] [place] [address] Performed By: #### 2 4321-2 ####[facility]ATORYCLIA [id number] [place] [address] [place] Chloride [Moles/Vol] 111 mmol/L High 98-107 [facility] Comment on above: Order Comment: Speci men Type: BLOOD SPECIMENOrdering Facility: [facility] Address: [address] [place] [address] Performed By: #### 2 4321-2 ####[facility]ATORYCLIA [id number] [place] [address] [place] CO2 [Moles/Vol] 25 mmol/L Normal 21-32 [facility] Comment on above: Order Comment: Speci men Type: BLOOD SPECIMENOrdering Facility: [facility] Address: [address] [place] [address] Performed By: #### 2 4321-2 ####[facility]ATORYCLIA [id number] [place] [address] [place] Creatinine [Mass/Vol] 0.59 mg/dL Normal 0.51-0.95 [facility] Comment on above: Order Comment: Speci men Type: BLOOD SPECIMENOrdering Facility: [facility] Address: [address] [place] [address] Result Comment: Marilin ents receiving either N-Acetylcysteine (NAC) or Metamizole prior to venipuncture, may have falsely depressed results. Performed By: #### 2 4321-2 ####[facility]ATORYCLIA [id number] [address] Creatinine and Glomerular filtration rate.predicted panel (S/P/Bld) 112 mL/min/1.73m??? Normal >=60 [facility] Comment on above: Order Comment: Speci men Type: BLOOD SPECIMENOrdering Facility: [facility] Address: [address] [place] [address] Result Comment: Chrissy mated Glomerular Filtration Rate [...] actual GFR. Performed By: #### 2 4321-2 ####[facility]ATORYCLIA [id number] [place] [address] [place] Glucose [Mass/Vol] 95 mg/dL Normal 70-100 [facility] Comment on above: Order Comment: Speci men Type: BLOOD SPECIMENOrdering Facility: [facility] Address: [address] [place], [place] [id number] Result Comment: The [place] [employer] (ADA) provides guidance for cutoff [...] Standards of Medical Care in Diabetes 2016, [place] [employer]. Diabetes Care. 2016.39(Suppl 1).Results may be falsely elevated after the administration of Sulfapyridine.Results may be falsely depressed after the administration of Sulfasalazine. Performed By: #### 2 4321-2 ####[facility]ATORYCLIA [id number] [place] [address] [place] Potassium [Moles/Vol] 3.7 mmol/L Normal 3.5-5.1 [facility] Comment on above: Order Comment: Syd ramos Type: BLOOD SPECIMENOrdering Facility: [facility] Address: [address] [place], [place] [address] Performed By: #### 2 4321-2 ####[facility]ORATORYCLIA [id number] [place] [address] [place] Sodium [Moles/Vol] 142 mmol/L Normal 136-145 [facility] Comment on above: Order Comment: Syd ramos Type: BLOOD SPECIMENOrdering Facility: [facility] Address: [address] [place], [place] [address] Performed By: #### 2 4321-2 ####[facility]ATORYCLIA [id number] [place] [address] [place] Urea nitrogen [Mass/Vol] 8 mg/dL Normal 7-26 [facility] Comment on above: Order Comment: Irmai men Type: BLOOD SPECIMENOrdering Facility: [facility] Address: [address] [place], [place] [address] Performed By: #### 2 4321-2 ####[facility]ORATORYCLIA [id number] [place] [id number] [place] CASE MGT INIT ASSESon 2024 CASE MGT INIT ASSES Normal [facility] CBC panel Auto (Bld)on 12-28 Erythrocyte distribution width (RBC) [Ratio] 12.4 % Normal 11.5-15.0 [facility] Comment on above: Order Comment: Speci men Type: BLOOD SPECIMENOrdering Facility: [facility] Address: [address] [place] [address] Performed By: #### 5 8410-2 ####[facility]ATORYCLIA [id number] [address] [place] Hematocrit (Bld) [Volume fraction] 41.2 % Normal 36.0-46.0 [facility] Comment on above: Order Comment: Speci men Type: BLOOD SPECIMENOrdering Facility: [facility] Address: [address] [place] [address] Performed By: #### 5 8410-2 ####[facility]ATORYCLIA [id number] [place] [address] [place] Hemoglobin (Bld) [Mass/Vol] 13.7 g/dL Normal 11.5-15.5 [facility] Comment on above: Order Comment: Speci men Type: BLOOD SPECIMENOrdering Facility: [facility] Address: [address] [place] [address] Performed By: #### 5 8410-2 ####[facility]ATORYCLIA [id number] [place] [address] [place] MCH (RBC) [Entitic mass] 32.3 pg Normal 26.0-34.0 [facility] Comment on above: Order Comment: Speci men Type: BLOOD SPECIMENOrdering Facility: [facility] Address: [address] [place] [address] Performed By: #### 5 8410-2 ####[facility]ATORYCLIA [id number] [address] [place] MCHC (RBC) [Mass/Vol] 33.3 g/dL Normal 30.5-36.0 [facility] Comment on above: Order Comment: Speci men Type: BLOOD SPECIMENOrdering Facility: [facility] Address: [address] [place] [address] Performed By: #### 5 8410-2 ####[facility]ATORYCLIA [id number] [place] [address] [place] MCV (RBC) [Entitic vol] 97.2 fL Normal 80.0-100.0 [facility] Comment on above: Order Comment: Speci men Type: BLOOD SPECIMENOrdering Facility: [facility] Address: [address] [place] [address] Performed By: #### 5 8410-2 ####[facility]ATORYCLIA [id number] [address] [place] Nucleated RBC (Bld) [#/Vol] 10*3/uL Normal <0.01 [facility] Comment on above: Order Comment: Speci men Type: BLOOD SPECIMENOrdering Facility: [facility] Address: [address] [place] [address] Performed By: #### 5 8410-2 ####[facility]ATORYCLIA [id number] [place] [address] [place] Platelet mean volume (Bld) [Entitic vol] 9.7 fL Normal 9.0-12.7 [facility] Comment on above: Order Comment: Speci men Type: BLOOD SPECIMENOrdering Facility: [facility] Address: [address] [place] [address] Performed By: #### 5 8410-2 ####[facility]ATORYCLIA [id number] [place] [address] [place] Platelets (Bld) [#/Vol] 193 10*3/uL Normal 150-400 [facility] Comment on above: Order Comment: Speci men Type: BLOOD SPECIMENOrdering Facility: [facility] Address: [address] [place] [address] Performed By: #### 5 8410-2 ####[facility]ATORYCLIA [id number] [address] [facility] RBC (Bld) [#/Vol] 4.24 10*6/uL Normal 3.90-5.20 [facility] Comment on above: Order Comment: Speci men Type: BLOOD SPECIMENOrdering Facility: [facility] Address: [address] [place] [address] Performed By: #### 5 8410-2 ####[facility]ATORYCLIA [id number] [address] WBC (Bld) [#/Vol] 7.16 10*3/uL Normal 3.70-11.00 [facility] Comment on above: Order Comment: Speci men Type: BLOOD SPECIMENOrdering Facility: [facility] Address: [address] [place] [address] Performed By: #### 5 8410-2 ####[facility]ATORYCLIA [id number] [address] [place] BRAIN WO IVCONon 12-29-[address] BRAIN WO IVCON Normal [facility] Resp path 12b Pnl Spec MACIE+p robeon 12-28-2024 Respiratory pathogens DNA and RNA 12b panel MACIE+probe (Unsp spec) Normal [facility] Comment on above: Performed By: #### 6 0566-7 ####[facility]ATORYCLIA [id number] [place] [address] [place] ALLIED HEALTHon 12-27-2024 ALLIED HEALTH Normal [facility] AST SerPl-cCncon 12-27-2024 AST [Catalytic activity/Vol] 20 U/L Normal 8-34 [facility] Comment on above: Order Comment: Speci men Type: BLOOD SPECIMENOrdering Facility: [facility] Address: [address], [place] [address] Result Comment: Resu lts may be falsely depressed after the administration of Sulfasalazine and/or Sulfapyridine. Performed By: #### 1 920-8, 3094-0, K1, 73656-7 ####[facility]ATORYCLIA [id number] [place] [id number] [place] Ammonia Plas-sCncon 12-28-19 Ammonia (P) [Moles/Vol] 15 umol/L Normal - [facility] Comment on above: Order Comment: Speci men Type: BLOOD SPECIMENOrdering Facility: [facility] Address: [address] [place] [address] Result Comment: Resu lts may be falsely depressed after the administration of Sulfapyridine. Results may be falsely elevated after the administration of Sulfasalazine. Performed By: #### 1 6362-6 ####[facility]ATORYCLIA [id number] [address] [place] BUN SerPl-mCncon 12-27-2024 Urea nitrogen [Mass/Vol] 12 mg/dL Normal 02-09 [facility] Comment on above: Order Comment: Speci men Type: BLOOD SPECIMENOrdering Facility: [facility] Address: [address] [place] [address] Performed By: #### 1 920-8, 3094-0, K1, 15179-6 ####[facility]ATORYCLIA [id number] [address] [place] CBC W Auto Differential pane l (Bld)on 12-27-2024 Basophils (Bld) [#/Vol] 0.04 10*3/uL Normal <0.11 [facility] Comment on above: Order Comment: Speci men Type: BLOOD SPECIMENOrdering Facility: [facility] Address: [address] [place] [address] Performed By: #### 5 7021-8 ####[facility]ATORYCLIA [id number] [address] [place] Basophils/100 WBC (Bld) 0.5 % Normal [facility] Comment on above: Order Comment: Speci men Type: BLOOD SPECIMENOrdering Facility: [facility] Address: [address] [place] [address] Performed By: #### 5 7021-8 ####[facility]ATORYCLIA [id number] [place] [id number] [place] Differential cell count method Nom (Bld) Auto Normal [facility] Comment on above: Order Comment: Speci men Type: BLOOD SPECIMENOrdering Facility: [facility] Address: [address] [place] [address] Performed By: #### 5 7021-8 ####[facility]ATORYCLIA [id number] [place] [address] [place] Eosinophils (Bld) [#/Vol] 0.14 10*3/uL Normal <0.46 [facility] Comment on above: Order Comment: Speci men Type: BLOOD SPECIMENOrdering Facility: [facility] Address: [address] [place] [address] Performed By: #### 5 7021-8 ####[facility]ATORYCLIA [id number] [place] [address] [place] Eosinophils/100 WBC (Bld) 1.8 % Normal [facility] Comment on above: Order Comment: Speci men Type: BLOOD SPECIMENOrdering Facility: [facility] Address: [address] [place] [address] Performed By: #### 5 7021-8 ####[facility]ATORYCLIA [id number] [place] [address] [place] Erythrocyte distribution width (RBC) [Ratio] 12.7 % Normal 11.5-15.0 [facility] Comment on above: Order Comment: Speci men Type: BLOOD SPECIMENOrdering Facility: [facility] Address: [address] [place] [address] Performed By: #### 5 7021-8 ####[facility]ATORYCLIA [id number] [place] [address] [place] Hematocrit (Bld) [Volume fraction] 46.0 % Normal 36.0-46.0 [facility] Comment on above: Order Comment: Speci men Type: BLOOD SPECIMENOrdering Facility: [facility] Address: [address] [place] [address] Performed By: #### 5 7021-8 ####[facility]ATORYCLIA [id number] [place] [address] [place] Hemoglobin (Bld) [Mass/Vol] 15.2 g/dL Normal 11.5-15.5 [facility] Comment on above: Order Comment: Speci men Type: BLOOD SPECIMENOrdering Facility: [facility] Address: [address] [place] [address] Performed By: #### 5 7021-8 ####[facility]ATORYCLIA [id number] [place] [address] [place] Immature granulocytes (Bld) [#/Vol] 0.04 10*3/uL Normal <0.10 [facility] Comment on above: Order Comment: Speci men Type: BLOOD SPECIMENOrdering Facility: [facility] Address: [address] [place] [address] Performed By: #### 5 7021-8 ####[facility]ORYCLIA [id number] [place] [address] [place] Immature granulocytes/100 WBC (Bld) 0.5 % Normal [facility] Comment on above: Order Comment: Speci men Type: BLOOD SPECIMENOrdering Facility: [facility] Address: [address] [place] [address] Performed By: #### 5 7021-8 ####[facility]ATORYCLIA [id number] [place] [address] [place] Lymphocytes (Bld) [#/Vol] 2.20 10*3/uL Normal 1.00-4.00 [facility] Comment on above: Order Comment: Speci men Type: BLOOD SPECIMENOrdering Facility: [facility] Address: [address] [place] [address] Performed By: #### 5 7021-8 ####[facility]ATORYCLIA [id number] [place] [address] [place] Lymphocytes/100 WBC (Bld) 28.7 % Normal [facility] Comment on above: Order Comment: Speci men Type: BLOOD SPECIMENOrdering Facility: [facility] Address: [address] [place] [address] Performed By: #### 5 7021-8 ####[facility]ATORYCLIA [id number] [place] [address] [place] MCH (RBC) [Entitic mass] 31.9 pg Normal 26.0-34.0 [facility] Comment on above: Order Comment: Speci men Type: BLOOD SPECIMENOrdering Facility: [facility] Address: [address] [place] [address] Performed By: #### 5 7021-8 ####[facility]ORYCLIA [id number] [address] [place] MCHC (RBC) [Mass/Vol] 33.0 g/dL Normal 30.5-36.0 [facility] Comment on above: Order Comment: Speci men Type: BLOOD SPECIMENOrdering Facility: [facility] Address: [address] [place] [address] Performed By: #### 5 7021-8 ####[facility]ATORYCLIA [id number] [place] [address] [place] MCV (RBC) [Entitic vol] 96.6 fL Normal 80.0-100.0 [facility] Comment on above: Order Comment: Speci men Type: BLOOD SPECIMENOrdering Facility: [facility] Address: [address] [place] [address] Performed By: #### 5 7021-8 ####[facility]ATORYCLIA [id number] [address] [place] Monocytes (Bld) [#/Vol] 1.25 10*3/uL High <0.87 [facility] Comment on above: Order Comment: Speci men Type: BLOOD SPECIMENOrdering Facility: [facility] Address: [address] [place] [address] Performed By: #### 5 7021-8 ####[facility]ATORYCLIA [id number] [place] [address] [place] Monocytes/100 WBC (Bld) 16.3 % Normal [facility] Comment on above: Order Comment: Speci men Type: BLOOD SPECIMENOrdering Facility: [facility] Address: [address] [place] [address] Performed By: #### 5 7021-8 ####[facility]ATORYCLIA [id number] [place] [address] [place] Neutrophils (Bld) [#/Vol] 4.00 10*3/uL Normal 1.45-7.50 [facility] Comment on above: Order Comment: Speci men Type: BLOOD SPECIMENOrdering Facility: [facility] Address: [address] [place] [address] Performed By: #### 5 7021-8 ####[facility]ATORYCLIA [id number] [place] [address] [place] Neutrophils/100 WBC (Bld) 52.2 % Normal [facility] Comment on above: Order Comment: Speci men Type: BLOOD SPECIMENOrdering Facility: [facility] Address: [address] [place] [address] Performed By: #### 5 7021-8 ####[facility]ATORYCLIA [id number] [place] [address] [place] Nucleated RBC (Bld) [#/Vol] 10*3/uL Normal <0.01 [facility] Comment on above: Order Comment: Speci men Type: BLOOD SPECIMENOrdering Facility: [facility] Address: [address] [place] [address] Performed By: #### 5 7021-8 ####[facility]ATORYCLIA [id number] [place] [address] [place] Nucleated RBC/100 WBC (Bld) [Ratio] 0.0 /100 WBC Normal [facility] Comment on above: Order Comment: Speci men Type: BLOOD SPECIMENOrdering Facility: [facility] Address: [address] [place] [address] Performed By: #### 5 7021-8 ####[facility]ATORYCLIA [id number] [place] [id number] [place] Platelet mean volume (Bld) [Entitic vol] 10.1 fL Normal 9.0-12.7 [facility] Comment on above: Order Comment: Speci men Type: BLOOD SPECIMENOrdering Facility: [facility] Address: [address] [place] [address] Performed By: #### 5 7021-8 ####[facility]ATORYCLIA [id number] [place] [id number] [place] Platelets (Bld) [#/Vol] 232 10*3/uL Normal 150-400 [facility] Comment on above: Order Comment: Speci men Type: BLOOD SPECIMENOrdering Facility: [facility] Address: [address] [place] [address] Performed By: #### 5 7021-8 ####[facility]ATORYCLIA [id number] [place] [address] [place] RBC (Bld) [#/Vol] 4.76 10*6/uL Normal 3.90-5.20 [facility] Comment on above: Order Comment: Speci men Type: BLOOD SPECIMENOrdering Facility: [facility] Address: [address] [place] [address] Performed By: #### 5 7021-8 ####[facility]ATORYCLIA [id number] [place] [id number] [place] WBC (Bld) [#/Vol] 7.67 10*3/uL Normal 3.70-11.00 [facility] Comment on above: Order Comment: Speci men Type: BLOOD SPECIMENOrdering Facility: [facility] Address: [address] [place] [address] Performed By: #### 5 7021-8 ####[facility]ATORYCLIA [id number] [place] [address] [place] CT ABD/PEL W IVCONon 025 CT ABD/PEL W IVCON Normal [facility] CT BRAIN WO IVCONon 12-28-[address] BRAIN WO IVCON Normal [facility] Comprehensive metabolic 2000 panelon 12-27-2024 Albumin [Mass/Vol] 3.5 g/dL Normal 3.2-5.0 [facility] Comment on above: Order Comment: Speci men Type: BLOOD SPECIMENOrdering Facility: [facility] Address: [address] [place] [address] Performed By: #### 2 4323-8, 3040-3, 68297-9, HSTRSAWYER, 5643-2 ####[facility]ATORYCLIA [id number] [place] [id number] [place] ALP [Catalytic activity/Vol] 66 U/L Normal 45-117 [facility] Comment on above: Order Comment: Speci men Type: BLOOD SPECIMENOrdering Facility: [facility] Address: [address] [place] [address] Performed By: #### 2 4323-8, 3040-3, 57558-0, HSTRSAWYER, 5643-2 ####[facility]ATORYCLIA [id number] [place] [id number] [place] ALT [Catalytic activity/Vol] 20 U/L Normal 13-61 [facility] Comment on above: Order Comment: Speci men Type: BLOOD SPECIMENOrdering Facility: [facility] Address: [address] [place] [address] Result Comment: Resu lts may be falsely depressed after the administration of Sulfasalazine and/or Sulfapyridine. Performed By: #### 2 4323-8, 3040-3, 13200-0, HSTROP, 5643-2 ####[facility]ATORYCLIA [id number] [place] [id number] [place] Anion gap [Moles/Vol] 9 mmol/L Normal 5-16 [facility] Comment on above: Order Comment: Speci men Type: BLOOD SPECIMENOrdering Facility: [facility] Address: [address] [place] [address] Performed By: #### 2 4323-8, 3040-3, 69593-8, HSTROP, 5643-2 ####[facility]ATORYCLIA [id number] [place] [id number] [place] AST [Catalytic activity/Vol] Normal [facility] Comment on above: Order Comment: Speci men Type: BLOOD SPECIMENOrdering Facility: [facility] Address: [address] [place] [address] Result Comment: Unab le to assay due to interference from hemolysis. Suggest reorder as clinically indicated.Results may be falsely depressed after the administration of Sulfasalazine and/or Sulfapyridine. Performed By: #### 2 4323-8, 3040-3, 00423-0, HSTROP, 5643-2 ####[facility]ATORYCLIA [id number] [place] [id number] [place] Bilirubin [Mass/Vol] 0.6 mg/dL Normal 0.2-1.0 [facility] Comment on above: Order Comment: Speci men Type: BLOOD SPECIMENOrdering Facility: [facility] Address: [address] [place] [address] Performed By: #### 2 4323-8, 3040-3, , HSTROP, 5643-2 ####[facility]ATORYCLIA [id number] [place] [id number] [place] Calcium [Mass/Vol] 9.4 mg/dL Normal 8.5-10.5 [facility] Comment on above: Order Comment: Speci men Type: BLOOD SPECIMENOrdering Facility: [facility] Address: [address] [place] [address] Performed By: #### 2 4323-8, 3040-3, 75830-2, HSTROP, 5643-2 ####[facility]ATORYCLIA [id number] [place] [id number] [place] Chloride [Moles/Vol] 103 mmol/L Normal 98-107 [facility] Comment on above: Order Comment: Speci men Type: BLOOD SPECIMENOrdering Facility: [facility] Address: [address] [place] [address] Performed By: #### 2 4323-8, 3040-3, 67535-7, HSTROP, 5643-2 ####[facility]ATORYCLIA [id number] [place] [address] [place] CO2 [Moles/Vol] 28 mmol/L Normal 21-32 [facility] Comment on above: Order Comment: Speci men Type: BLOOD SPECIMENOrdering Facility: [facility] Address: [address] [place] [address] Performed By: #### 2 4323-8, 3040-3, 23471-7, HSTROP, 5643-2 ####[facility]ATORYCLIA [id number] [place] [id number] [place] Creatinine [Mass/Vol] Normal [facility] Comment on above: Order Comment: Speci men Type: BLOOD SPECIMENOrdering Facility: [facility] Address: [address] [place] [address] Result Comment: Unab le to assay due to interference from hemolysis. Suggest reorder as clinically indicated. Performed By: #### 2 4323-8, 3040-3, 11118-7, HSTROP, 5643-2 ####[facility]ATORYCLIA [id number] [place] [address] [place] Creatinine and Glomerular filtration rate.predicted panel (S/P/Bld) Normal [facility] Comment on above: Order Comment: Speci men Type: BLOOD SPECIMENOrdering Facility: [facility] Address: [address] [place] [address] Result Comment: Chrissy mated Glomerular Filtration Rate [...] GFR. Performed By: #### 2 4323-8, 3040-3, 74736-8, HSTRSAWYER, 5643-2 ####[facility]ATORYCLIA [id number] [place] [id number] [place] Glucose [Mass/Vol] 100 mg/dL Normal 70-100 [facility] Comment on above: Order Comment: Specpatrice ramos Type: BLOOD SPECIMENOrdering Facility: [facility] Address: [address] [place] [address] Result Comment: The [place] [employer] (ADA) provides guidance for cutoff [...] Standards of Medical Care in Diabetes 2016, [place] [employer]. Diabetes Care. 2016.39(Suppl 1).Results may be falsely elevated after the administration of Sulfapyridine.Results may be falsely depressed after the administration of Sulfasalazine. Performed By: #### 2 4323-8, 3040-3, 23510-6, HSTRSAWYER, 5643-2 ####[facility]ATORYCLIA [id number] [place] [id number] [place] Potassium [Moles/Vol] Normal [facility] Comment on above: Order Comment: Syd ramos Type: BLOOD SPECIMENOrdering Facility: [facility] Address: [address] [place] [address] Result Comment: Unab le to assay due to interference from hemolysis. Suggest reorder as clinically indicated. Performed By: #### 2 4323-8, 3040-3, 76217-2, HSTRSAWYER, 5643-2 ####[facility]ATORYCLIA [id number] [place] [id number] [place] Protein [Mass/Vol] 7.2 g/dL Normal 6.0-8.5 [facility] Comment on above: Order Comment: Speci men Type: BLOOD SPECIMENOrdering Facility: [facility] Address: [address] [place] [address] Performed By: #### 2 4323-8, 3040-3, 75256-7, HSTROP, 5643-2 ####[facility]ATORYCLIA [id number] [place] [id number] [place] Sodium [Moles/Vol] 140 mmol/L Normal 136-145 [facility] Comment on above: Order Comment: Speci men Type: BLOOD SPECIMENOrdering Facility: [facility] Address: [address] [place] [address] Performed By: #### 2 4323-8, 3040-3, 54061-4, HSTROP, 5643-2 ####[facility]ATORYCLIA [id number] [place] [id number] [place] Urea nitrogen [Mass/Vol] Normal [facility] Comment on above: Order Comment: Speci men Type: BLOOD SPECIMENOrdering Facility: [facility] Address: [address] [place] [address] Result Comment: Unab le to assay due to interference from hemolysis. Suggest reorder as clinically indicated. Performed By: #### 2 4323-8, 3040-3, 74858-6, HSTROP, 5643-2 ####[facility]ATORYCLIA [id number] [place] [id number] [place] Creatinine + eGFR Pnl SerPlB ldon 12-27-2024 Creatinine and Glomerular filtration rate.predicted panel (S/P/Bld) 109 mL/min/1.73m??? Normal >=60 [facility] Comment on above: Order Comment: Speci men Type: BLOOD SPECIMENOrdering Facility: [facility] Address: [address] [place] [address] Result Comment: Chrissy mated Glomerular Filtration Rate [...] Performed By: #### 1 920-8, 3094-0, K1, 84672-2 ####[facility]ATORYCLIA [id number] [address] Creatinine and Glomerular fi ltration rate.predicted panel (S/P/Bld)on 12-27-2024 Creatinine [Mass/Vol] 0.66 mg/dL Normal 0.51-0.95 [facility] Comment on above: Order Comment: Speci men Type: BLOOD SPECIMENOrdering Facility: [facility] Address: [address] [place] [address] Result Comment: Marilin ents receiving either N-Acetylcysteine (NAC) or Metamizole prior to venipuncture, may have falsely depressed results. Performed By: #### 1 920-8, 3094-0, K1, 14843-7 ####[facility]ATORYCLIA [id number] [address] [place] ECG COMPLETEon 12-27-2024 ECG COMPLETE Normal [facility] ED NOTEon 12-27-2024 ED NOTE HNO ID: [id number] Author: SONYA AYALA, Medic Service: ? 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 Type: ED Notes Filed: 12/27/2024 14:38 Note Text: Bed: 01-ED Expected date: Expected time: Means of arrival: Comments: ems Normal [facility] ED PROV NOTEon 12-27-2024 ED PROV NOTE Normal [facility] Ethanol SerPl-mCncon 025 Ethanol [Mass/Vol] mg/dL Normal <0.010 [facility] Comment on above: Order Comment: Speci men Type: BLOOD SPECIMENOrdering Facility: [facility] Address: [address] [place] [address] Performed By: #### 2 4323-8, 3040-3, 71424-9, HSTROP, 5643-2 ####[facility]ATORYCLIA [id number] [place] [id number] [place] HIGH SENSITIVITY TROPONIN Io n 12-27-2024 Tropinin I.cardiac panel High sensitivity method <2.5 Normal 0.0-34.0 [facility] Comment on above: Order Comment: Speci men Type: BLOOD SPECIMENOrdering Facility: [facility] Address: [address] [place] [address] Performed By: #### 2 4323-8, 3040-3, , HSTROP, 5643-2 ####[facility]ORATORYCLIA [id number] [address] STATES [facility] HISTORY PHYSICALon 5 HISTORY PHYSICAL Normal [facility] Lipase SerPl-cCncon 12-28-19 25 Lipase [Catalytic activity/Vol] Normal [facility] Comment on above: Order Comment: Speci men Type: BLOOD SPECIMENOrdering Facility: [facility] Address: [address] [place] [address] Result Comment: Unab le to assay due to interference from hemolysis. Suggest reorder as clinically indicated. Performed By: #### 2 4323-8, 3040-3, 58478-8, HSTROP, 5643-2 ####[facility]ATORYCLIA [id number] [place] 6238[address] [place] Magnesium SerPl-mCncon 12-27 Magnesium [Mass/Vol] 2.1 mg/dL Normal 1.6-2.6 [facility] Comment on above: Order Comment: Speci men Type: BLOOD SPECIMENOrdering Facility: [facility] Address: [address] [place] [address] Performed By: #### 2 4323-8, 3040-3, 16409-3, HSTROP, 5643-2 ####[facility]ATORYCLIA [id number] [place] [id number] [place] POTASSIUMon 12-27-2024 Potassium [Moles/Vol] 4.1 mmol/L Normal 3.5-5.1 [facility] Comment on above: Order Comment: Speci men Type: BLOOD SPECIMENOrdering Facility: [facility] Address: [address] [place] [address] Performed By: #### 1 920-8, 3094-0, K1, 04241-1 ####[facility]ATORYCLIA [id number] [address] Urinalysis complete panel (U )on 12-27-2024 Bacteria LM.HPF (Urine sed) [#/Area] None Seen Normal None Seen [facility] Comment on above: Order Comment: Speci men Type: URINE SPECIMENOrdering Facility: [facility] Address: [address] [place] [address] Performed By: #### 2 4356-8 ####[facility]ATORYCLIA [id number] [place] [address] [place] Bilirubin Ql (U) Negative Normal Negative [facility] Comment on above: Order Comment: Speci men Type: URINE SPECIMENOrdering Facility: [facility] Address: [address] [place] [address] Performed By: #### 2 4356-8 ####[facility]ORYCLIA [id number] [address] [place] Clarity (Unsp spec) Clear Normal Clear [facility] Comment on above: Order Comment: Speci men Type: URINE SPECIMENOrdering Facility: [facility] Address: [address] [place] [address] Performed By: #### 2 4356-8 ####[facility]ATORYCLIA [id number] [address] [place] Color (U) Earlene Abnormal Yellow [facility] Comment on above: Order Comment: Speci men Type: URINE SPECIMENOrdering Facility: [facility] Address: [address] [place] [address] Performed By: #### 2 4356-8 ####[facility]ORYCLIA [id number] [address] [place] Epithelial cells LM.HPF (Urine sed) [#/Area] Few Normal [facility] Comment on above: Order Comment: Speci men Type: URINE SPECIMENOrdering Facility: [facility] Address: [address] [place] [address] Performed By: #### 2 4356-8 ####[facility]ATORYCLIA [id number] [address] [place] Glucose Test strip (U) [Mass/Vol] Negative Normal Negative [facility] Comment on above: Order Comment: Speci men Type: URINE SPECIMENOrdering Facility: [facility] Address: [address] [place] [address] Performed By: #### 2 4356-8 ####[facility]ATORYCLIA [id number] [place] [address] [place] Hemoglobin Ql (U) Negative Normal Negative [facility] Comment on above: Order Comment: Speci men Type: URINE SPECIMENOrdering Facility: [facility] Address: [address] [place] [address] Performed By: #### 2 4356-8 ####[facility]ORYCLIA [id number] [address] [place] Ketones Ql (U) Trace Abnormal Negative [facility] Comment on above: Order Comment: Speci men Type: URINE SPECIMENOrdering Facility: [facility] Address: [address] [place] [address] Performed By: #### 2 4356-8 ####[facility]ATORYCLIA [id number] [place] [address] [place] Leukocyte esterase Test strip Ql (U) Negative Normal Negative [facility] Comment on above: Order Comment: Speci men Type: URINE SPECIMENOrdering Facility: [facility] Address: [address] [place] [address] Performed By: #### 2 4356-8 ####[facility]ATORYCLIA [id number] [place] [address] [place] Nitrite Ql (U) Negative Normal Negative [facility] Comment on above: Order Comment: Speci men Type: URINE SPECIMENOrdering Facility: [facility] Address: [address] [place] [address] Performed By: #### 2 4356-8 ####[facility]ATORYCLIA [id number] [address] [place] pH (U) 6.0 [pH] Normal 5.0-8.0 [facility] Comment on above: Order Comment: Speci men Type: URINE SPECIMENOrdering Facility: [facility] Address: [address] [place] [address] Performed By: #### 2 4356-8 ####[facility]ATORYCLIA [id number] [address] Protein (U) [Mass/Vol] 1+ Abnormal Negative [facility] Comment on above: Order Comment: Speci men Type: URINE SPECIMENOrdering Facility: [facility] Address: [address] [place] [address] Performed By: #### 2 4356-8 ####[facility]ATORYCLIA [id number] [place] [address] [place] RBC LM.HPF (Urine sed) [#/Area] 0-3 /HPF Normal 0-3 /HPF [facility] Comment on above: Order Comment: Speci men Type: URINE SPECIMENOrdering Facility: [facility] Address: [address] [place] [address] Performed By: #### 2 4356-8 ####[facility]ORATORYCLIA [id number] [place] [address] [place] Specific gravity (U) [Rel density] 1.024 Normal 1.005-1.03 0 [facility] Comment on above: Order Comment: Speci men Type: URINE SPECIMENOrdering Facility: [facility] Address: [address] [place] [address] Performed By: #### 2 4356-8 ####[facility]ATORYCLIA [id number] [address] Urobilinogen Ql (U) 2+ Abnormal Negative [facility] Comment on above: Order Comment: Speci men Type: URINE SPECIMENOrdering Facility: [facility] Address: [address] [place] [address] Performed By: #### 2 4356-8 ####[facility]ATORYCLIA [id number] [address] WBC LM.HPF (Urine sed) [#/Area] 0-5 /HPF Normal 0-5 /HPF [facility] Comment on above: Order Comment: Speci men Type: URINE SPECIMENOrdering Facility: [facility] Address: [address] [place] [address] Performed By: #### 2 4356-8 ####[facility]ORATORYCLIA [id number] [place] 6238[address] [facility] Urine Cultureon 12-27-2024 URC Below infection leve l. Mixed Gram Pos Gram Neg Org Julian Count 1000-10,000 MIXC Mixed contaminants. Submit a new specimen if indicated. Normal [facility] Comment on above: Performed By: #### M 100.2200 #### [facility] Laboratory [address] [place], [address] [facility]27 Valproate [Mass/Vol] 16.6 ug/mL Low 50.0-100.0 [facility] Comment on above: Order Comment: Speci men Type: BLOOD SPECIMENOrdering Facility: [facility] Address: [address] [place] [address] Result Comment: Refe rence ranges and high/low indicator flags are provided as general guidelines only. The treating physician must determine appropriate target levels/dosing based on the specific clinical situation. Performed By: #### 4 086-5 ####[facility]ORATORYCLIA [id number] [place] [address] [place] [facility] 12 Lead EKGon 12-25-2024 12 Lead EKG [facility] Cardiovascular Services [address] [place] [address] 12 Lead EKG 12/25/24 1323 MR#: [id number] Acct: [id number] Name: SHARLA JOINER Rep #: [id number] : 1975 49 From: Luci Lara MD [...] : 392 ms Sinus rhythm with short [place] Otherwise normal ECG Baseline artifact Confirmed by Luci Lara ([id number]), managing editor ROSE PADRON ([id number]) on 12/27/2024 6:10:43 AM Referred By: Confirmed By: Luci Lara 12/27/2410 Date Luci Lara MD CC: Dr. Desirae Rosario MD; Dr. Quincy Clarke DO Signed Normal [facility] Absolute lymphocyte countOrd ered By: Quincy Clarke on 12-25-2024 Lymphocytes Auto (Unsp spec) [#/Vol] 2.63 10*3/uL 0.83-4.51 [facility] Absolute neutrophil countOrd ered By: Quincy Clarke on 12-25-2024 Neutrophils (Bld) [#/Vol] 3.3 10*3/uL 2.0-7.7 [facility] Amorphous sediment detection in urine sediment by light microscopyOrdered By: Quincy Clarke on 12-25-2024 Amorphous sediment LM Ql (Urine sed) 3+ [facility] Anion gap in Serum or Plasma Ordered By: Quincy Clarke on 12-25-2024 Anion gap [Moles/Vol] 10 mmol/L 5-15 [facility] Automated lymphocyte count a s percentage of total leukocytesOrdered By: Quincy Clarke on 12-25-2024 Lymphocytes/100 WBC Auto (Unsp spec) 36.3 % 19-41 [facility] BUN/creatinine ratioOrdered By: Quincy Clarke on 12-25-2024 Urea nitrogen/Creatinine [Mass ratio] 22.9 mg/mg High 10- [facility] Basophil percentageOrdered B y: Quincy Clarke on 12-25-2024 Basophils/100 WBC (Bld) 0.6 % 0-1 [facility] Bilirubin Test strip Ql (U)O rdered By: Quincy Clarke on 12-25-2024 Bilirubin Ql (U) Negative Negative [facility] Bilirubin, totalOrdered By: Quincy Clarke on 12-25-2024 Bilirubin [Mass/Vol] 0.40 mg/dL 0.00-1.30 [facility] Brain/Head without Contrasto n 12-25-2024 Brain/Head without Contrast [facility] Imaging Services [address] [place] [address] Brain/Head without Contrast MR#: [id number] Acct: [id number] Name: SHARLA JOINER Rep #: [id number] : 1975 F 49 From: Jesus Manuel riggs MD PCP: Abby Carrillo MD Status: PRE ER Study: Brain/Head without Contrast Date of Exam: 12/16 Exam# [id number] Ordering Dr: Quincy Clarke DO PROCEDURE: BRAIN/HEAD [...] temporal lobes. Hyperostosis frontalis interna. Reading Location: [place] [address] CC: Abby Carrillo MD; Dr. Quincy Clarke DO Retail Center Receptionist: Signed Normal [facility] CBC W/Diff, Automatedon 12-16-2024 Absolute Lymph 2.63 X10 3/uL Normal 0.83-4.51 [facility] Comment on above: Performed By: #### L 500.4050, L100.0100 #### [facility] [address] [place], [address] Absolute Neut 3.3 X10 3/uL Normal 2.0-7.7 [facility] Comment on above: Performed By: #### L 500.4050, L100.0100 #### [facility] [address] [place], [address] Basophils/100 WBC (Bld) 0.6 % Normal 0-1 [facility] Comment on above: Performed By: #### L 500.4050, L100.0100 #### [facility] [address] [place], [address] Eosinophils/100 WBC (Bld) 1.7 % Normal 0-5 [facility] Comment on above: Performed By: #### L 500.4050, L100.0100 #### [facility] [address] [place], [address] Erythrocyte distribution width (RBC) [Ratio] 13.1 % Normal 11.6-14.6 [facility] Comment on above: Performed By: #### L 500.4050, L100.0100 #### [facility] [address] [place], [address] Hematocrit (Bld) [Volume fraction] 43.7 % Normal 37-47 [facility] Comment on above: Performed By: #### L 500.4050, L100.0100 #### [facility] [address] [place], [address] Hemoglobin (Bld) [Mass/Vol] 14.3 g/dL Normal 12.0-15.0 [facility] Comment on above: Performed By: #### L 500.4050, L100.0100 #### [facility] [address] [place], [address] IG% 0.300 Normal 0.0-0.9 [facility] Comment on above: Result Comment: IG% - Immature Granulocytes (promyelocytes, myelocytes and metamyelocytes) > 1% indicates that a LEFT SHIFT is Present. Performed By: #### L 500.4050, L100.0100 #### [facility] [address] [place], [address] Lymphocytes/100 WBC (Bld) 36.3 % Normal 19-41 [facility] Comment on above: Performed By: #### L 500.4050, L100.0100 #### [facility] [address] [place], [address] MCH (RBC) [Entitic mass] 31.7 pg Normal 27.0-32.0 [facility] Comment on above: Performed By: #### L 500.4050, L100.0100 #### [facility] [address] [place], [address] MCHC (RBC) [Mass/Vol] 32.7 g/dL Normal 32-36 [facility] Comment on above: Performed By: #### L 500.4050, L100.0100 #### [facility] [address] [place], [address] MCV (RBC) [Entitic vol] 96.9 fL Normal 81-99 [facility] Comment on above: Performed By: #### L 500.4050, L100.0100 #### [facility] [address] [place], [address] Monocytes/100 WBC (Bld) 16.3 % High 0-10 [facility] Comment on above: Performed By: #### L 500.4050, L100.0100 #### [facility] [address] [place], [address] Neutrophils/100 WBC (Bld) 44.8 % Low 47-70 [facility] Comment on above: Performed By: #### L 500.4050, L100.0100 #### [facility] [address] [place], [address] Nucleated RBC (Bld) [#/Vol] 0 10*3/uL Normal 0-5 [facility] Comment on above: Performed By: #### L 500.4050, L100.0100 #### [facility] [address] [place], [address] Platelet mean volume (Bld) [Entitic vol] 9.8 fL Normal 6.2-12.0 [facility] Comment on above: Performed By: #### L 500.4050, L100.0100 #### [facility] [address] [place], [address] Platelets (Bld) [#/Vol] 198 10*3/uL Normal 150-450 [facility] Comment on above: Performed By: #### L 500.4050, L100.0100 #### [facility] [address] [place], [address] RBC (Bld) [#/Vol] 4.51 10*6/uL Normal 4.2-5.4 [facility] Comment on above: Performed By: #### L 500.4050, L100.0100 #### [facility] [address] [place], [address] RDW SD 46.7 fl High 35.1-43.9 [facility] Comment on above: Performed By: #### L 500.4050, L100.0100 #### [facility] [address] [place], [address] WBC (Bld) [#/Vol] 7.3 10*3/uL Normal 4.4-11.0 [facility] Comment on above: Performed By: #### L 500.4050, L100.0100 #### [facility] [address] [place], [address] Carbon dioxide, total [Moles /volume] in Central venous bloodOrdered By: Quincy Clarke on 12-25-2024 CO2 [Moles/Vol] 22.1 mmol/L 21.0-32.0 [facility] Chest 1 View (Portable)on Chest 1 View (Portable) [facility] Imaging Services [address] [place] [address] Chest 1 View (Portable) MR#: [id number] Acct: [id number] Name: SHARLA JOINER Rep #: [id number] : 1975 F 49 From: Jesus Manuel riggs MD PCP: Abby Carrillo MD Status: PRE ER Study: Chest 1 View (Portable) Date of Exam: 12/25/24 Exam# [id number] Ordering Dr: Quincy Clarke DO PROCEDURE: CHEST 1 VIEW (PORTABLE) 12/25/2024 REASON FOR EXAM: ALTERED MENTAL STATUS TECHNIQUE: Frontal view of the chest. COMPARISON: None FINDINGS: Hardware: EKG electrodes are seen. Heart: The heart is nonenlarged. Lungs: Lungs are clear. Bones: The bones are unremarkable. Other: RAD/Chest 1 View (Portable) IMPRESSION: No Acute Findings. Reading Location: [place] [address] CC: Abby Carrillo MD; Dr. Quincy Clarke DO Retail Center Receptionist: Signed Normal [facility] Chloride assayOrdered By: José Antonio Clarke on 12-25-2024 Chloride [Moles/Vol] 109 mmol/L High 98-108 [facility] Comprehensive Metabolic Prof ilon 12-25-2024 Albumin [Mass/Vol] 3.8 g/dL Normal 3.5-5.0 [facility] Comment on above: Performed By: #### L 500.4050, L100.0100 ####[facility] [address] [place], [address] Albumin/Globulin [Mass ratio] 1.2 {ratio} Normal 0.9-2.4 [facility] Comment on above: Performed By: #### L 500.4050, L100.0100 ####[facility] [address] [place], [address] ALK PHOS 60 U/L Normal 35-104 [facility] Comment on above: Performed By: #### L 500.4050, L100.0100 ####[facility] [address] [place], [address] ALT [Catalytic activity/Vol] 17 U/L Normal <=34 [facility] Comment on above: Result Comment: Hemo lysis present, Results??could be affected. ?? Performed By: #### L 500.4050, L100.0100 ####[facility] [address] [place], [address] AST [Catalytic activity/Vol] 46 U/L High <=31 [facility] Comment on above: Result Comment: Hemo lysis present, Results??could be affected. ?? Performed By: #### L 500.4050, L100.0100 ####[facility] [address] [place], [address] Bilirubin [Mass/Vol] 0.40 mg/dL Normal 0.00-1.30 [facility] Comment on above: Performed By: #### L 500.4050, L100.0100 ####[facility] [address] [place], [address] BUN/CRE 22.9 RATIO High 10-20 [facility] Comment on above: Performed By: #### L 500.4050, L100.0100 ####[facility] [address] [place], [address] Calcium [Mass/Vol] 9.6 mg/dL Normal 7.6-11.0 [facility] Comment on above: Performed By: #### L 500.4050, L100.0100 ####[facility] [address] [place], [address] Chloride [Moles/Vol] 109 mmol/L High 98-108 [facility] Comment on above: Performed By: #### L 500.4050, L100.0100 ####[facility] [address] [place], [address] CO2 [Moles/Vol] 22.1 mmol/L Normal 21.0-32.0 [facility] Comment on above: Performed By: #### L 500.4050, L100.0100 ####[facility] [address] [place], [address] Creatinine [Mass/Vol] 0.68 mg/dL Low 0.70-1.20 [facility] Comment on above: Performed By: #### L 500.4050, L100.0100 ####[facility] [address] [place], [address] ECRCL 99.46 ml/min Normal 50-250 [facility] Comment on above: Performed By: #### L 500.4050, L100.0100 ####[facility] [address] [place], [address] GAP 10 Normal 5-15 [facility] Comment on above: Performed By: #### L 500.4050, L100.0100 ####[facility] [address] [place], [address] GFR/1.73 sq M.predicted among non-blacks MDRD (S/P/Bld) [Vol rate/Area] 108 mL/min/{1.73_m2} Normal >60 [facility] Comment on above: Result Comment: mL/m in/1.73m2 CKD-EPI Creatinine Equation (2020) Performed By: #### L 500.4050, L100.0100 ####[facility] [address] [place], [address] Globulin (S) [Mass/Vol] 3.1 g/dL Normal 2.2-4.2 [facility] Comment on above: Performed By: #### L 500.4050, L100.0100 ####[facility] [address] [place], [address] Glucose [Mass/Vol] 84 mg/dL Normal 70-99 [facility] Comment on above: Performed By: #### L 500.4050, L100.0100 ####[facility] [address] [place], [address] Potassium [Moles/Vol] 4.9 mmol/L Normal 3.3-5.1 [facility] Comment on above: Result Comment: Hemo lysis present, Results??could be affected. ?? Performed By: #### L 500.4050, L100.0100 ####[facility] [address] [place], [address] Sodium [Moles/Vol] 142 mmol/L Normal 133-145 [facility] Comment on above: Performed By: #### L 500.4050, L100.0100 ####[facility] [address] [place], [address] T PROT 6.9 g/dL Normal 5.9-8.4 [facility] Comment on above: Performed By: #### L 500.4050, L100.0100 ####[facility] [address] [place], [address] Urea nitrogen [Mass/Vol] 16 mg/dL Normal 4-19 [facility] Comment on above: Performed By: #### L 500.4050, L100.0100 ####[facility] [address] [place], [address] Emergency Department Summary on 12-25-2024 Emergency Department Summary [facility] Medical Records Department [address] [place] [address] Emergency Department Summary 12/25/24 MR#: [id number] Acct: [id number] Name: SHARLA JOINER Rep #: [id number] : 1975 49 From: Quincy Rocha PCP: Dr. Desirae Rosario MD Status:DEP ER Location: ED HPI History of Present Illness Chief Complaint: Mental Status Change Informant: parent Narrative Narrative: Patient sent by EMS from [facility] for increasing altered mental status. History of bipolar, autism, parents are present states function no was at a jail. Parent states on of last month went to urgent care for nausea was put on Zofran. The following day follow-up with PCP decompensation on that day was sent to the emergency department. Patient admitted at [facility] on the discharged 5 days ago little [...] not perform this. [facility]. They report physical therapy was working with her she would take a couple steps if she is sitting in a chair at the facility. She seemed to start to improve prior to transfer to penitentiary facility. Today reported at breakfast she may have choked on eggs. She had worsening mental status while there. She was sent in here by practitioner there for potential stroke. Parents reports she was not her normal baseline when she was discharged to penitentiary facility. There has been no cough. Prior [...] upper extremit (more content not included)... Normal [facility] Eosinophil percentageOrdered By: Quincy Clarke on 12-25-2024 Eosinophils/100 WBC (Bld) 1.7 % 0-5 [facility] Erythrocyte distribution wid th ratioOrdered By: Quincy Clarke on 12-25-2024 Erythrocyte distribution width (RBC) [Ratio] 13.1 % 11.6-14.6 [facility] Erythrocyte distribution wid th standard deviationOrdered By: Quincy Clarke on 12-25-2024 Erythrocyte distribution width (RBC) [Ratio] 46.7 fl High 35.1-43.9 [facility] Glomerular filtration rate ( GFR) estimation/1.73 sq m using serum, plasma, or whole bOrdered By: Quincy Clarke on 12-25-2024 GFR/1.73 sq M.predicted among non-blacks MDRD (S/P/Bld) [Vol rate/Area] 108 mL/min/{1.73_m2} >60 [facility] Comment on above: mL/min/1.73m2 CKD-EP I Creatinine Equation (2020) Hematocrit Auto (Bld) [Volum e fraction]Ordered By: Quincy Clarke on 12-25-2024 Hematocrit (Bld) [Volume fraction] 43.7 % 37-47 [facility] Hemoglobin measurementOrdere d By: Quincy Clarke on 12-25-2024 Hemoglobin (Bld) [Mass/Vol] 14.3 g/dL 12.0-15.0 [facility] Immature granulocytes/100 WB C Auto (Bld)Ordered By: Quincy Clarke on 12-25-2024 Immature granulocytes/100 WBC (Bld) 0.300 % 0.0-0.9 [facility] Comment on above: IG% - Immature Granu locytes (promyelocytes, myelocytes and metamyelocytes) > 1% indicates that a LEFT SHIFT is Present. Ketones Test strip Ql (U)Ord ered By: Quincy Clarke on 12-25-2024 Ketones Ql (U) 5 mg/dl High Negative [facility] Laboratory - Chemistry and C hemistry - challengeOrdered By: Quincy Clarke on 12-25-2024 AST [Catalytic activity/Vol] 46 U/L High <32 [facility] Comment on above: Hemolysis present, R esults could be affected. MCV (mean corpuscular volume ) determinationOrdered By: Quincy Clarke on 12-25-2024 MCV (RBC) [Entitic vol] 96.9 fL 81-99 [facility] Mean corpuscular hemoglobin (MCH) determinationOrdered By: Quincy Clarke on 12-25-2024 MCH (RBC) [Entitic mass] 31.7 pg 27.0-32.0 [facility] Mean corpuscular hemoglobin concentration (MCHC) determinationOrdered By: Quincy Clarke on 12-25-2024 MCHC (RBC) [Mass/Vol] 32.7 g/dL 32-36 [facility] Mean platelet volume determi nationOrdered By: Quincy Clarke on 12-25-2024 Platelet mean volume (Bld) [Entitic vol] 9.8 fL 6.2-12.0 [facility] Microscopic analysis of urin e for red blood cells (RBC)Ordered By: Quincy Clarke on 12-25-2024 Microscopic analysis of urine for red blood cells (RBC) 0-5 SEEN /hpf 0-5 [facility] Monocyte percentageOrdered B y: Quincy Clarke on 12-25-2024 Monocytes/100 WBC (Bld) 16.3 % High 0-10 [facility] Mucus LM Ql (Urine sed)Order ed By: Quincy Clarke on 12-25-2024 Mucus Ql (Urine sed) 0 SEEN /hpf [facility] Neutrophil percentageOrdered By: Quincy Clarke on 12-25-2024 Neutrophils/100 WBC (Bld) 44.8 % Low 47-70 [facility] Nitrite Test strip Ql (U)Ord ered By: Quincy Clarke on 12-25-2024 Nitrite Ql (U) Negative Negative [facility] Nucleated red blood cell per centageOrdered By: Quincy Clarke on 12-25-2024 Nucleated RBC/100 WBC (Bld) [Ratio] 0 % 0-5 [facility] Platelet countOrdered By: José Antonio caro Clarke on 12-25-2024 Platelets (Bld) [#/Vol] 198 10*3/uL 150-450 [facility] Potassium measurement (mass/ volume)Ordered By: Quincy Clarke on 12-25-2024 Potassium (Unsp spec) [Mass/Vol] 4.9 mmol/L 3.3-5.1 [facility] Comment on above: Hemolysis present, R esults could be affected. Protein Test strip Ql (U)Ord ered By: Quincy Clarke on 12-25-2024 Protein Ql (U) 30 mg/dl High Negative [facility] RBC Auto (Bld) [#/Vol]Ordere d By: Quincy Clarke on 12-25-2024 RBC (Bld) [#/Vol] 4.51 10*6/uL 4.2-5.4 [facility] Serum creatinine measurement (mass/volume)Ordered By: Quincy Clarke on 12-25-2024 Creatinine [Mass/Vol] 0.68 mg/dL Low 0.70-1.20 [facility] Serum globulin measurementOr dered By: Quincy Clarke on 12-25-2024 Globulin (S) [Mass/Vol] 3.1 g/dL 2.2-4.2 [facility] Serum glucose measurement (m ass/volume)Ordered By: Quincy Clarke on 12-25-2024 Glucose [Mass/Vol] 84 mg/dL 70-99 [facility] Serum or plasma alanine perea otransferase (ALT) measurementOrdered By: Quincy Clarke on 12-25-2024 ALT [Catalytic activity/Vol] 17 U/L <35 [facility] Comment on above: Hemolysis present, R esults could be affected. Serum or plasma albumin mikie urement (mass/volume)Ordered By: Quincy Clarke on 12-25-2024 Albumin [Mass/Vol] 3.8 g/dL 3.5-5.0 [facility] Serum or plasma albumin/glob ulin mass ratioOrdered By: Quincy Clarke on 12-25-2024 Albumin/Globulin [Mass ratio] 1.2 {ratio} 0.9-2.4 [facility] Serum or plasma alkaline evelyn sphatase measurementOrdered By: Quincy Clarke on 12-25-2024 ALP [Catalytic activity/Vol] 60 U/L 35-104 [facility] Serum or plasma calcium mikie urement (mass/volume)Ordered By: Quincy Clarke on 12-25-2024 Calcium [Mass/Vol] 9.6 mg/dL 7.6-11.0 [facility] Serum or plasma urea nitroge n measurement (mass/volume)Ordered By: Quincy Clarke on 12-25-2024 Urea nitrogen [Mass/Vol] 16 mg/dL 4-19 [facility] Sodium levelOrdered By: Quincy Clarke on 12-25-2024 Sodium [Moles/Vol] 142 mmol/L 133-145 [facility] Squamous epithelial cells de tection in urine sediment by light microscopyOrdered By: Quincy Clarke on 12-25-2024 Epithelial cells.squamous LM Ql (Urine sed) 0-5 SEEN /hpf 5-10 [facility] Total proteinOrdered By: Romelia Clarke on 12-25-2024 Protein [Mass/Vol] 6.9 g/dL 5.9-8.4 [facility] Transitional cells detection in urine sediment by light microscopyOrdered By: Quincy Clarke on 12-25-2024 Transitional cells LM Ql (Urine sed) 0-5 SEEN /hpf 0-5 [facility] Urinalysis, Completeon 12-25 AMORPHOUS 3+ Normal [facility] Comment on above: Order Comment: COLLE CTOR TO SPECIFY Performed By: #### L 400.0001 #### [facility] [address] [place], [address] BACTERIA 2+ /hpf Normal None Seen [facility] Comment on above: Order Comment: PAULO CTOR TO SPECIFY Performed By: #### L 400.0001 #### [facility] [address] [place], [address] EPI,SQUAMOUS 0-5 SEEN Normal 5-10 [facility] Comment on above: Order Comment: PAULO CTOR TO SPECIFY Performed By: #### L 400.0001 #### [facility] [address] [place], [address] EPI,TRANSITION 0-5 SEEN Normal 0-5 [facility] Comment on above: Order Comment: PAULO CTOR TO SPECIFY Performed By: #### L 400.0001 #### [facility] [address] [place], [address] RBC 0-5 SEEN Normal 0-5 [facility] Comment on above: Order Comment: PAULO CTOR TO SPECIFY Performed By: #### L 400.0001 #### [facility] [address] [place], [address] WBC 10-25 SEEN Normal 0-5 [facility] Comment on above: Order Comment: PAULO CTOR TO SPECIFY Performed By: #### L 400.0001 #### [facility] [address] [place], [address] Mucus Ql (Urine sed) 0 SEEN Normal [facility] Comment on above: Order Comment: PAULO CTOR TO SPECIFY Performed By: #### L 400.0001 #### [facility] [address] [place], [address] Urine clarityOrdered By: Romelia Clarke on 12-25-2024 Clarity (U) Cloudy Clear [facility] Urine color determinationOrd ered By: Quincy Clarke on 12-25-2024 Color (U) Yellow Yellow [facility] Urine cultureOrdered By: Romelia Clarke on 12-25-2024 Bacteria identified Cx Nom (U) Mixed Gram Pos & Gram Neg Org Abnormal [facility] Urine glucose detectionOrder ed By: Quincy Clarke on 12-25-2024 Glucose Ql (U) Normal mg/dl Normal [facility] Urine leukocyte esterase det ection by dipstickOrdered By: Quincy Clarke on 12-25-2024 Leukocyte esterase Test strip Ql (U) 100 /ul High Negative [facility] Urine pHOrdered By: Quincy Clarke on 12-25-2024 pH (U) 7.0 [pH] 5.0 - 8.0 [facility] Urine sediment bacteria coun t by microscopy (number/high power field)Ordered By: Quincy Clarke on 12-25-2024 Bacteria LM.HPF (Urine sed) [#/Area] 2 /[HPF] None Seen [facility] Urine specific gravity measu rementOrdered By: Quincy Clarke on 12-25-2024 Specific gravity (U) [Rel density] 1.015 1.002-1.03 0 [facility] Urine urobilinogen measureme ntOrdered By: Quincy Clarke on 12-25-2024 Urobilinogen Ql (U) 8 mg/dl High Normal [facility] White blood cell (WBC) count Ordered By: Quincy Clarke on 12-25-2024 WBC (Bld) [#/Vol] 7.3 10*3/uL 4.4-11.0 [facility] White blood cell countOrdere d By: Quincy Clarke on 12-25-2024 White blood cell count 10-25 SEEN /hpf 0-5 [facility] CASE MANAGEMon 12-20-2024 CASE MANAGEM [facility] CASE MANAGEM [facility] CNDSon 12-20-2024 CNDS [facility] CBC W Auto Differential pane l (Bld)on 12-19-2024 Basophils (Bld) [#/Vol] 0.04 10*3/uL Normal <0.11 [facility] Comment on above: Order Comment: Speci men Type: BLOOD SPECIMENOrdering Facility: [facility] Address: [address] [place], [place] [address] Performed By: #### 5 7021-8 ####[facility]ORYCLIA [id number] [place] [address] [place] Basophils/100 WBC (Bld) 0.5 % Normal [facility] Comment on above: Order Comment: Speci men Type: BLOOD SPECIMENOrdering Facility: [facility] Address: [address] [place] [address] Performed By: #### 5 7021-8 ####[facility]ATORYCLIA [id number] [place] [address] [place] Differential cell count method Nom (Bld) Auto Normal [facility] Comment on above: Order Comment: Speci men Type: BLOOD SPECIMENOrdering Facility: [facility] Address: [address] [place] [address] Performed By: #### 5 7021-8 ####[facility]ORYCLIA [id number] [place] [address] [place] Eosinophils (Bld) [#/Vol] 0.04 10*3/uL Normal <0.46 [facility] Comment on above: Order Comment: Speci men Type: BLOOD SPECIMENOrdering Facility: [facility] Address: [address] [place] [address] Performed By: #### 5 7021-8 ####[facility]ORYCLIA [id number] [address] [place] Eosinophils/100 WBC (Bld) 0.5 % Normal [facility] Comment on above: Order Comment: Speci men Type: BLOOD SPECIMENOrdering Facility: [facility] Address: [address] [place] [address] Performed By: #### 5 7021-8 ####[facility]ORYCLIA [id number] [address] [place] Erythrocyte distribution width (RBC) [Ratio] 13.2 % Normal 11.5-15.0 [facility] Comment on above: Order Comment: Speci men Type: BLOOD SPECIMENOrdering Facility: [facility] Address: [address] [place] [address] Performed By: #### 5 7021-8 ####[facility]ATORYCLIA [id number] [place] [id number] [place] Hematocrit (Bld) [Volume fraction] 45.4 % Normal 36.0-46.0 [facility] Comment on above: Order Comment: Speci men Type: BLOOD SPECIMENOrdering Facility: [facility] Address: [address] [place] [address] Performed By: #### 5 7021-8 ####[facility]ATORYCLIA [id number] [place] [address] [place] Hemoglobin (Bld) [Mass/Vol] 15.2 g/dL Normal 11.5-15.5 [facility] Comment on above: Order Comment: Speci men Type: BLOOD SPECIMENOrdering Facility: [facility] Address: [address] [place] [address] Performed By: #### 5 7021-8 ####[facility]ORYCLIA [id number] [place] [address] [place] Immature granulocytes (Bld) [#/Vol] 0.08 10*3/uL Normal <0.10 [facility] Comment on above: Order Comment: Speci men Type: BLOOD SPECIMENOrdering Facility: [facility] Address: [address] [place] [address] Performed By: #### 5 7021-8 ####[facility]ORYCLIA [id number] [place] [address] [place] Immature granulocytes/100 WBC (Bld) 0.9 % Normal [facility] Comment on above: Order Comment: Speci men Type: BLOOD SPECIMENOrdering Facility: [facility] Address: [address] [place] [address] Performed By: #### 5 7021-8 ####[facility]ORATORYCLIA [id number] [place] [id number] [place] Lymphocytes (Bld) [#/Vol] 2.38 10*3/uL Normal 1.00-4.00 [facility] Comment on above: Order Comment: Speci men Type: BLOOD SPECIMENOrdering Facility: [facility] Address: [address] [place] [address] Performed By: #### 5 7021-8 ####[facility]ORYCLIA [id number] [place] [address] [place] Lymphocytes/100 WBC (Bld) 28.0 % Normal [facility] Comment on above: Order Comment: Speci men Type: BLOOD SPECIMENOrdering Facility: [facility] Address: [address] [place] [address] Performed By: #### 5 7021-8 ####[facility]ATORYCLIA [id number] [place] [address] [place] MCH (RBC) [Entitic mass] 31.7 pg Normal 26.0-34.0 [facility] Comment on above: Order Comment: Speci men Type: BLOOD SPECIMENOrdering Facility: [facility] Address: [address] [place] [address] Performed By: #### 5 7021-8 ####[facility]ORYCLIA [id number] [address] [place] MCHC (RBC) [Mass/Vol] 33.5 g/dL Normal 30.5-36.0 [facility] Comment on above: Order Comment: Speci men Type: BLOOD SPECIMENOrdering Facility: [facility] Address: [address] [place] [address] Performed By: #### 5 7021-8 ####[facility]ORYCLIA [id number] [place] [address] [place] MCV (RBC) [Entitic vol] 94.6 fL Normal 80.0-100.0 [facility] Comment on above: Order Comment: Speci men Type: BLOOD SPECIMENOrdering Facility: [facility] Address: [address] [place] [address] Performed By: #### 5 7021-8 ####[facility]ORYCLIA [id number] [place] [address] [place] Monocytes (Bld) [#/Vol] 1.06 10*3/uL High <0.87 [facility] Comment on above: Order Comment: Speci men Type: BLOOD SPECIMENOrdering Facility: [facility] Address: [address] [place] [address] Performed By: #### 5 7021-8 ####[facility]ATORYCLIA [id number] [place] [id number] [place] Monocytes/100 WBC (Bld) 12.5 % Normal [facility] Comment on above: Order Comment: Speci men Type: BLOOD SPECIMENOrdering Facility: [facility] Address: [address] [place] [address] Performed By: #### 5 7021-8 ####[facility]ORYCLIA [id number] [place] [address] [place] Neutrophils (Bld) [#/Vol] 4.91 10*3/uL Normal 1.45-7.50 [facility] Comment on above: Order Comment: Speci men Type: BLOOD SPECIMENOrdering Facility: [facility] Address: [address] [place] [address] Performed By: #### 5 7021-8 ####[facility]ORYCLIA [id number] [place] [address] [place] Neutrophils/100 WBC (Bld) 57.6 % Normal [facility] Comment on above: Order Comment: Speci men Type: BLOOD SPECIMENOrdering Facility: [facility] Address: [address] [place] [address] Performed By: #### 5 7021-8 ####[facility]ORYCLIA [id number] [place] [id number] [place] Nucleated RBC (Bld) [#/Vol] 10*3/uL Normal <0.01 [facility] Comment on above: Order Comment: Speci men Type: BLOOD SPECIMENOrdering Facility: [facility] Address: [address] [place] [address] Performed By: #### 5 7021-8 ####[facility]ORYCLIA [id number] [place] [address] [place] Nucleated RBC/100 WBC (Bld) [Ratio] 0.0 /100 WBC Normal [facility] Comment on above: Order Comment: Speci men Type: BLOOD SPECIMENOrdering Facility: [facility] Address: [address] [place] [address] Performed By: #### 5 7021-8 ####[facility]ORYCLIA [id number] [place] [id number] [place] Platelet mean volume (Bld) [Entitic vol] 9.1 fL Normal 9.0-12.7 [facility] Comment on above: Order Comment: Speci men Type: BLOOD SPECIMENOrdering Facility: [facility] Address: [address] [place] [address] Performed By: #### 5 7021-8 ####[facility]ORYCLIA [id number] [place] [id number] [place] Platelets (Bld) [#/Vol] 144 10*3/uL Low 150-400 [facility] Comment on above: Order Comment: Speci men Type: BLOOD SPECIMENOrdering Facility: [facility] Address: [address] [place] [address] Performed By: #### 5 7021-8 ####[facility]ORYCLIA [id number] [place] [address] [place] RBC (Bld) [#/Vol] 4.80 10*6/uL Normal 3.90-5.20 [facility] Comment on above: Order Comment: Speci men Type: BLOOD SPECIMENOrdering Facility: [facility] Address: [address] [place] [address] Performed By: #### 5 7021-8 ####[facility]ORYCLIA [id number] [place] [id number] [place] WBC (Bld) [#/Vol] 8.51 10*3/uL Normal 3.70-11.00 [facility] Comment on above: Order Comment: Speci men Type: BLOOD SPECIMENOrdering Facility: [facility] Address: [address] [place] [address] Performed By: #### 5 7021-8 ####[facility]ORYCLIA [id number] [place] [id number] [place] CONSULT PROGon 12-19-2024 CONSULT PROG Normal [facility] Comprehensive metabolic 2000 panelon 12-19-2024 Albumin [Mass/Vol] 3.5 g/dL Normal 3.2-5.0 [facility] Comment on above: Order Comment: Speci men Type: BLOOD SPECIMENOrdering Facility: [facility] Address: [address] [place] [address] Performed By: #### 2 4323-8 ####[facility]ORYCLIA [id number] [address] [place] ALP [Catalytic activity/Vol] 59 U/L Normal 45-117 [facility] Comment on above: Order Comment: Speci men Type: BLOOD SPECIMENOrdering Facility: [facility] Address: [address] [place] [address] Performed By: #### 2 4323-8 ####[facility]ORYCLIA [id number] [address] [place] ALT [Catalytic activity/Vol] 12 U/L Low 13-61 [facility] Comment on above: Order Comment: Speci men Type: BLOOD SPECIMENOrdering Facility: [facility] Address: [address] [place] [address] Result Comment: Resu lts may be falsely depressed after the administration of Sulfasalazine and/or Sulfapyridine. Performed By: #### 2 4323-8 ####[facility]ATORYCLIA [id number] [place] [id number] [place] Anion gap [Moles/Vol] 9 mmol/L Normal 5-16 [facility] Comment on above: Order Comment: Speci men Type: BLOOD SPECIMENOrdering Facility: [facility] Address: [address] [place] [address] Performed By: #### 2 4323-8 ####[facility]ORYCLIA [id number] [place] [address] [place] AST [Catalytic activity/Vol] 18 U/L Normal 8-34 [facility] Comment on above: Order Comment: Speci men Type: BLOOD SPECIMENOrdering Facility: [facility] Address: [address] [place] [address] Result Comment: Resu lts may be falsely depressed after the administration of Sulfasalazine and/or Sulfapyridine. Performed By: #### 2 4323-8 ####[facility]ORYCLIA [id number] [place] [address] [place] Bilirubin [Mass/Vol] 0.6 mg/dL Normal 0.2-1.0 [facility] Comment on above: Order Comment: Speci men Type: BLOOD SPECIMENOrdering Facility: [facility] Address: [address] [place] [address] Performed By: #### 2 4323-8 ####[facility]ORYCLIA [id number] [place] [address] [place] Calcium [Mass/Vol] 9.3 mg/dL Normal 8.5-10.5 [facility] Comment on above: Order Comment: Speci men Type: BLOOD SPECIMENOrdering Facility: [facility] Address: [address] [place] [address] Performed By: #### 2 4323-8 ####[facility]ORYCLIA [id number] [place] [address] [place] Chloride [Moles/Vol] 108 mmol/L High 98-107 [facility] Comment on above: Order Comment: Speci men Type: BLOOD SPECIMENOrdering Facility: [facility] Address: [address] [place] [address] Performed By: #### 2 4323-8 ####[facility]ORYCLIA [id number] [place] [address] [place] CO2 [Moles/Vol] 27 mmol/L Normal 21-32 [facility] Comment on above: Order Comment: Speci men Type: BLOOD SPECIMENOrdering Facility: [facility] Address: [address] [place] [address] Performed By: #### 2 4323-8 ####[facility]ORYCLIA [id number] [place] [id number] [place] Creatinine [Mass/Vol] 0.63 mg/dL Normal 0.51-0.95 [facility] Comment on above: Order Comment: Speci men Type: BLOOD SPECIMENOrdering Facility: [facility] Address: [address] [place] [address] Result Comment: Marilin ents receiving either N-Acetylcysteine (NAC) or Metamizole prior to venipuncture, may have falsely depressed results. Performed By: #### 2 4323-8 ####[facility]ATORYCLIA [id number] [address] Creatinine and Glomerular filtration rate.predicted panel (S/P/Bld) 110 mL/min/1.73m??? Normal >=60 [facility] Comment on above: Order Comment: Speci men Type: BLOOD SPECIMENOrdering Facility: [facility] Address: [address] [place] [address] Result Comment: Chrissy mated Glomerular Filtration Rate [...] actual GFR. Performed By: #### 2 4323-8 ####[facility]ORYCLIA [id number] [place] [address] [place] Glucose [Mass/Vol] 102 mg/dL High 70-100 [facility] Comment on above: Order Comment: Irmai richard Type: BLOOD SPECIMENOrdering Facility: [facility] Address: [address] [place] [address] Result Comment: The [place] [employer] (ADA) provides guidance for cutoff [...] Standards of Medical Care in Diabetes 2016, [place] [employer]. Diabetes Care. 2016.39(Suppl 1).Results may be falsely elevated after the administration of Sulfapyridine.Results may be falsely depressed after the administration of Sulfasalazine. Performed By: #### 2 4323-8 ####[facility]ORYCLIA [id number] [place] [address] [place] Potassium [Moles/Vol] 4.1 mmol/L Normal 3.5-5.1 [facility] Comment on above: Order Comment: Speci men Type: BLOOD SPECIMENOrdering Facility: [facility] Address: [address] [place] [address] Performed By: #### 2 4323-8 ####[facility]ORYCLIA [id number] [place] [address] [place] Protein [Mass/Vol] 7.3 g/dL Normal 6.0-8.5 [facility] Comment on above: Order Comment: Speci men Type: BLOOD SPECIMENOrdering Facility: [facility] Address: [address] [place] [address] Performed By: #### 2 4323-8 ####[facility]ORYCLIA [id number] [place] [address] [place] Sodium [Moles/Vol] 144 mmol/L Normal 136-145 [facility] Comment on above: Order Comment: Speci men Type: BLOOD SPECIMENOrdering Facility: [facility] Address: [address] [place] [address] Performed By: #### 2 4323-8 ####[facility]ORYCLIA [id number] [place] [address] [place] Urea nitrogen [Mass/Vol] 11 mg/dL Normal 7-26 [facility] Comment on above: Order Comment: Speci men Type: BLOOD SPECIMENOrdering Facility: [facility] Address: [address] [place] [id number] Performed By: #### 2 4323-8 ####[facility]ORATORYCLIA [id number] [place] [id number] [place] THERAPY NTon 12-18-2024 THERAPY NT [facility] THERAPY NT [facility] CASE MANAGEMon 12-17-2024 CASE MANAGEM Normal [facility] CONSULT PROGon 12-17-2024 CONSULT PROG [facility] THERAPY NTon 12-17-2024 THERAPY NT [facility] CONSULT PROGon 12-16-2024 CONSULT PROG [facility] THERAPY on 12-14-2024 THERAPY NT [facility] Basic metabolic 2000 panelon 12-13-2024 Anion gap [Moles/Vol] 8 mmol/L Normal 5-16 [facility] Comment on above: Order Comment: Speci men Type: BLOOD SPECIMENOrdering Facility: [facility] Address: [address] [place] [address] Performed By: #### 2 4321-2 ####[facility]ATORYCLIA [id number] [place] [address] [place] Calcium [Mass/Vol] 9.7 mg/dL Normal 8.5-10.5 [facility] Comment on above: Order Comment: Speci men Type: BLOOD SPECIMENOrdering Facility: [facility] Address: [address] [place] [address] Performed By: #### 2 4321-2 ####[facility]ORATORYCLIA [id number] [place] [address] [place] Chloride [Moles/Vol] 109 mmol/L High 98-107 [facility] Comment on above: Order Comment: Speci men Type: BLOOD SPECIMENOrdering Facility: [facility] Address: [address] [place], [place] [address] [place] [address] Performed By: #### 2 4321-2 ####[facility]ORATORYCLIA [id number] [place] [address] [place] CO2 [Moles/Vol] 28 mmol/L Normal 21-32 [facility] Comment on above: Order Comment: Speci men Type: BLOOD SPECIMENOrdering Facility: [facility] Address: [address] [place] [address] Performed By: #### 2 4321-2 ####[facility]ORATORYCLIA [id number] [place] [address] [place] Creatinine [Mass/Vol] 0.64 mg/dL Normal 0.51-0.95 [facility] Comment on above: Order Comment: Speci men Type: BLOOD SPECIMENOrdering Facility: [facility] Address: [address] [place] [address] Result Comment: Marilin ents receiving either N-Acetylcysteine (NAC) or Metamizole prior to venipuncture, may have falsely depressed results. Performed By: #### 2 4321-2 ####[facility]ORATORYCLIA [id number] [address] OF [facility] Creatinine and Glomerular filtration rate.predicted panel (S/P/Bld) 110 mL/min/1.73m??? Normal >=60 [facility] Comment on above: Order Comment: Speci men Type: BLOOD SPECIMENOrdering Facility: [facility] Address: [address] [place] [address] Result Comment: Chrissy mated Glomerular Filtration Rate [...] actual GFR. Performed By: #### 2 4321-2 ####[facility]ORATORYCLIA [id number] [place] [id number] [place] Glucose [Mass/Vol] 87 mg/dL Normal 70-100 [facility] Comment on above: Order Comment: Syd ramos Type: BLOOD SPECIMENOrdering Facility: [facility] Address: [address] [place] [address] Result Comment: The [place] Diabetes Association (ADA) provides guidance for cutoff [...] Standards of Medical Care in Diabetes 2016, [place] [employer]. Diabetes Care. 2016.39(Suppl 1).Results may be falsely elevated after the administration of Sulfapyridine.Results may be falsely depressed after the administration of Sulfasalazine. Performed By: #### 2 4321-2 ####[facility]ORATORYCLIA [id number] [place] [address] [place] Potassium [Moles/Vol] 3.5 mmol/L Normal 3.5-5.1 [facility] Comment on above: Order Comment: Syd ramos Type: BLOOD SPECIMENOrdering Facility: [facility] Address: [address] [place] [address] Performed By: #### 2 4321-2 ####[facility]ORATORYCLIA [id number] [place] [address] [place] Sodium [Moles/Vol] 145 mmol/L Normal 136-145 [facility] Comment on above: Order Comment: Syd ramos Type: BLOOD SPECIMENOrdering Facility: [facility] Address: [address] [place] [address] Performed By: #### 2 4321-2 ####[facility]ORATORYCLIA [id number] [place] [address] [place] Urea nitrogen [Mass/Vol] 13 mg/dL Normal 7-26 [facility] Comment on above: Order Comment: Speci men Type: BLOOD SPECIMENOrdering Facility: [facility] Address: [address] [place] [address] Performed By: #### 2 4321-2 ####[facility]ORATORYCLIA [id number] [place] [id number] [place] CASE MANAGEMon 12-13-2024 CASE MANAGEM Normal [facility] CBC panel Auto (Bld)on 12-13 Erythrocyte distribution width (RBC) [Ratio] 13.1 % Normal 11.5-15.0 [facility] Comment on above: Order Comment: Speci men Type: BLOOD SPECIMENOrdering Facility: [facility] Address: [address] [place] [address] Performed By: #### 5 8410-2 ####[facility]ORATORYCLIA [id number] [address] [place] Hematocrit (Bld) [Volume fraction] 40.6 % Normal 36.0-46.0 [facility] Comment on above: Order Comment: Speci men Type: BLOOD SPECIMENOrdering Facility: [facility] Address: [address] [place] [address] Performed By: #### 5 8410-2 ####[facility]ORATORYCLIA [id number] [place] [id number] [place] Hemoglobin (Bld) [Mass/Vol] 13.9 g/dL Normal 11.5-15.5 [facility] Comment on above: Order Comment: Speci men Type: BLOOD SPECIMENOrdering Facility: [facility] Address: [address] [place] [address] Performed By: #### 5 8410-2 ####[facility]ORATORYCLIA [id number] [place] [id number] [place] MCH (RBC) [Entitic mass] 32.0 pg Normal 26.0-34.0 [facility] Comment on above: Order Comment: Speci men Type: BLOOD SPECIMENOrdering Facility: [facility] Address: [address] [place] [address] Performed By: #### 5 8410-2 ####[facility]ATORYCLIA [id number] [address] [place] MCHC (RBC) [Mass/Vol] 34.2 g/dL Normal 30.5-36.0 [facility] Comment on above: Order Comment: Speci men Type: BLOOD SPECIMENOrdering Facility: [facility] Address: [address] [place] [address] Performed By: #### 5 8410-2 ####[facility]ORATORYCLIA [id number] [place] [address] [facility] [place] MCV (RBC) [Entitic vol] 93.5 fL Normal 80.0-100.0 [facility] Comment on above: Order Comment: Speci men Type: BLOOD SPECIMENOrdering Facility: [facility] Address: [address] [place] [address] Performed By: #### 5 8410-2 ####[facility]ORATORYCLIA [id number] [place] [address] [place] Nucleated RBC (Bld) [#/Vol] 10*3/uL Normal <0.01 [facility] Comment on above: Order Comment: Speci men Type: BLOOD SPECIMENOrdering Facility: [facility] Address: [address] [place] [address] Performed By: #### 5 8410-2 ####[facility]ORATORYCLIA [id number] [place] [address] [place] Platelet mean volume (Bld) [Entitic vol] 9.4 fL Normal 9.0-12.7 [facility] Comment on above: Order Comment: Speci men Type: BLOOD SPECIMENOrdering Facility: [facility] Address: [address] [place] [address] Performed By: #### 5 8410-2 ####[facility]ORATORYCLIA [id number] [place] [address] [place] Platelets (Bld) [#/Vol] 183 10*3/uL Normal 150-400 [facility] Comment on above: Order Comment: Speci men Type: BLOOD SPECIMENOrdering Facility: [facility] Address: [address] [place] [address] Performed By: #### 5 8410-2 ####[facility]ORATORYCLIA [id number] [place] [id number] [place] RBC (Bld) [#/Vol] 4.34 10*6/uL Normal 3.90-5.20 [facility] Comment on above: Order Comment: Speci men Type: BLOOD SPECIMENOrdering Facility: [facility] Address: [address] [place] [address] Performed By: #### 5 8410-2 ####[facility]ORATORYCLIA [id number] [address] OF [facility] WBC (Bld) [#/Vol] 5.83 10*3/uL Normal 3.70-11.00 [facility] Comment on above: Order Comment: Speci men Type: BLOOD SPECIMENOrdering Facility: [facility] Address: [address] [place], [place] [address] Performed By: #### 5 8410-2 ####[facility]ORATORYCLIA [id number] [place] [id number] [place] NURSING PROGon 12-13-2024 NURSING PROG Normal [facility] THERAPY NTon 12-13-2024 THERAPY NT [facility] THERAPY NT Normal [facility] THERAPY NT Normal [facility] Basic metabolic 2000 panelon 12-12-2024 Anion gap [Moles/Vol] 11 mmol/L Normal 5-16 [facility] Comment on above: Order Comment: Speci men Type: BLOOD SPECIMENOrdering Facility: [facility] Address: [address] [place] [address] Performed By: #### 2 4321-2 ####[facility]ORATORYCLIA [id number] [place] [id number] [place] Calcium [Mass/Vol] 9.2 mg/dL Normal 8.5-10.5 [facility] Comment on above: Order Comment: Speci men Type: BLOOD SPECIMENOrdering Facility: [facility] Address: [address] [place] [address] Performed By: #### 2 4321-2 ####[facility]ATORYCLIA [id number] [place] [id number] [place] Chloride [Moles/Vol] 107 mmol/L Normal 98-107 [facility] Comment on above: Order Comment: Speci men Type: BLOOD SPECIMENOrdering Facility: [facility] Address: [address] [place] [address] Performed By: #### 2 4321-2 ####[facility]ATORYCLIA [id number] [place] [id number] [place] CO2 [Moles/Vol] 24 mmol/L Normal 21-32 [facility] Comment on above: Order Comment: Speci men Type: BLOOD SPECIMENOrdering Facility: [facility] Address: [address] [place] [address] Performed By: #### 2 4321-2 ####[facility]ATORYCLIA [id number] [place] [address] [place] Creatinine [Mass/Vol] 0.58 mg/dL Normal 0.51-0.95 [facility] Comment on above: Order Comment: Speci men Type: BLOOD SPECIMENOrdering Facility: [facility] Address: [address] [place] [address] Result Comment: Marilin ents receiving either N-Acetylcysteine (NAC) or Metamizole prior to venipuncture, may have falsely depressed results. Performed By: #### 2 4321-2 ####[facility]ATORYCLIA [id number] [place] [address] [place] Creatinine and Glomerular filtration rate.predicted panel (S/P/Bld) 112 mL/min/1.73m??? Normal >=60 [facility] Comment on above: Order Comment: Speci men Type: BLOOD SPECIMENOrdering Facility: [facility] Address: [address] [place] [address] Result Comment: Chrissy mated Glomerular Filtration Rate [...] actual GFR. Performed By: #### 2 4321-2 ####[facility]ATORYCLIA [id number] [place] [id number] [place] Glucose [Mass/Vol] 88 mg/dL Normal 70-100 [facility] Comment on above: Order Comment: Syd ramos Type: BLOOD SPECIMENOrdering Facility: [facility] Address: [address] [place] [address] Result Comment: The [place] Diabetes Association (ADA) provides guidance for cutoff [...] Standards of Medical Care in Diabetes 2016, [place] [employer]. Diabetes Care. 2016.39(Suppl 1).Results may be falsely elevated after the administration of Sulfapyridine.Results may be falsely depressed after the administration of Sulfasalazine. Performed By: #### 2 4321-2 ####[facility]ATORYCLIA [id number] [place] [address] [place] Potassium [Moles/Vol] 3.9 mmol/L Normal 3.5-5.1 [facility] Comment on above: Order Comment: Syd ramos Type: BLOOD SPECIMENOrdering Facility: [facility] Address: [address] [place] [address] Performed By: #### 2 4321-2 ####[facility]ATORYCLIA [id number] [place] [id number] [place] Sodium [Moles/Vol] 142 mmol/L Normal 136-145 [facility] Comment on above: Order Comment: Speci men Type: BLOOD SPECIMENOrdering Facility: [facility] Address: [address] [place] [address] Performed By: #### 2 4321-2 ####[facility]ATORYCLIA [id number] [place] [id number] [place] Urea nitrogen [Mass/Vol] 8 mg/dL Normal 7-26 [facility] Comment on above: Order Comment: Speci men Type: BLOOD SPECIMENOrdering Facility: [facility] Address: [address] [place] [address] Performed By: #### 2 4321-2 ####[facility]ATORYCLIA [id number] [place] [id number] [place] CBC panel Auto (Bld)on 12-12 Erythrocyte distribution width (RBC) [Ratio] 13.2 % Normal 11.5-15.0 [facility] Comment on above: Order Comment: Speci men Type: BLOOD SPECIMENOrdering Facility: [facility] Address: [address] [place] [address] Performed By: #### 5 8410-2 ####[facility]ATORYCLIA [id number] [place] [id number] [place] Hematocrit (Bld) [Volume fraction] 40.3 % Normal 36.0-46.0 [facility] Comment on above: Order Comment: Speci men Type: BLOOD SPECIMENOrdering Facility: [facility] Address: [address] [place] [address] Performed By: #### 5 8410-2 ####[facility]ATORYCLIA [id number] [place] [id number] [place] Hemoglobin (Bld) [Mass/Vol] 13.6 g/dL Normal 11.5-15.5 [facility] Comment on above: Order Comment: Speci men Type: BLOOD SPECIMENOrdering Facility: [facility] Address: [address] [place] [address] Performed By: #### 5 8410-2 ####[facility]ATORYCLIA [id number] [address] MCH (RBC) [Entitic mass] 31.8 pg Normal 26.0-34.0 [facility] Comment on above: Order Comment: Speci men Type: BLOOD SPECIMENOrdering Facility: [facility] Address: [address] [place] [address] Performed By: #### 5 8410-2 ####[facility]ORATORYCLIA [id number] [address] [place] MCHC (RBC) [Mass/Vol] 33.7 g/dL Normal 30.5-36.0 [facility] Comment on above: Order Comment: Speci men Type: BLOOD SPECIMENOrdering Facility: [facility] Address: [address] [place] [address] Performed By: #### 5 8410-2 ####[facility]ATORYCLIA [id number] [address] MCV (RBC) [Entitic vol] 94.2 fL Normal 80.0-100.0 [facility] Comment on above: Order Comment: Speci men Type: BLOOD SPECIMENOrdering Facility: [facility] Address: [address] [place] [address] Performed By: #### 5 8410-2 ####[facility]ATORYCLIA [id number] [address] [place] Nucleated RBC (Bld) [#/Vol] 10*3/uL Normal <0.01 [facility] Comment on above: Order Comment: Speci men Type: BLOOD SPECIMENOrdering Facility: [facility] Address: [address] [place] [address] Performed By: #### 5 8410-2 ####[facility]ATORYCLIA [id number] [address] [place] Platelet mean volume (Bld) [Entitic vol] 9.3 fL Normal 9.0-12.7 [facility] Comment on above: Order Comment: Speci men Type: BLOOD SPECIMENOrdering Facility: [facility] Address: [address] [place], [place] [address] Performed By: #### 5 8410-2 ####[facility]ORATORYCLIA [id number] [place] [id number] [facility] Platelets (Bld) [#/Vol] 178 10*3/uL Normal 150-400 [facility] Comment on above: Order Comment: Speci men Type: BLOOD SPECIMENOrdering Facility: [facility] Address: [address] [place] [address] Performed By: #### 5 8410-2 ####[facility]ATORYCLIA [id number] [place] [address] [place] RBC (Bld) [#/Vol] 4.28 10*6/uL Normal 3.90-5.20 [facility] Comment on above: Order Comment: Speci men Type: BLOOD SPECIMENOrdering Facility: [facility] Address: [address] [place], [place] [address] Performed By: #### 5 8410-2 ####[facility]ATORYCLIA [id number] [address] [place] WBC (Bld) [#/Vol] 5.73 10*3/uL Normal 3.70-11.00 [facility] Comment on above: Order Comment: Speci men Type: BLOOD SPECIMENOrdering Facility: [facility] Address: [address] [place], [place] [address] Performed By: #### 5 8410-2 ####[facility]ATORYCLIA [id number] [place] [id number] [place] CONSULTon 12-12-2024 CONSULT Normal [facility] NURSING PROGon 12-12-2024 NURSING PROG Normal [facility] NURSING PROG [facility] NUTRITIONon 12-12-2024 NUTRITION Normal [facility] THERAPY NTon 12-12-2024 THERAPY NT Normal [facility] THERAPY NT [facility] Basic metabolic 2000 panelon 12-11-2024 Anion gap [Moles/Vol] 8 mmol/L Normal 5-16 [facility] Comment on above: Order Comment: Speci men Type: BLOOD SPECIMENOrdering Facility: [facility] Address: [address] [place] [address] Performed By: #### 2 4321-2 ####[facility]ATORYCLIA [id number] [place] [id number] [place] Calcium [Mass/Vol] 9.2 mg/dL Normal 8.5-10.5 [facility] Comment on above: Order Comment: Speci men Type: BLOOD SPECIMENOrdering Facility: [facility] Address: [address] [place] [address] Performed By: #### 2 4321-2 ####[facility]ATORYCLIA [id number] [place] [address] [place] Chloride [Moles/Vol] 109 mmol/L High 98-107 [facility] Comment on above: Order Comment: Speci men Type: BLOOD SPECIMENOrdering Facility: [facility] Address: [address] [place] [address] Performed By: #### 2 4321-2 ####[facility]ATORYCLIA [id number] [place] [address] [place] CO2 [Moles/Vol] 26 mmol/L Normal 21-32 [facility] Comment on above: Order Comment: Speci men Type: BLOOD SPECIMENOrdering Facility: [facility] Address: [address] [place] [address] Performed By: #### 2 4321-2 ####[facility]ATORYCLIA [id number] [place] [address] [place] Creatinine [Mass/Vol] 0.67 mg/dL Normal 0.51-0.95 [facility] Comment on above: Order Comment: Speci men Type: BLOOD SPECIMENOrdering Facility: [facility] Address: [address] [place] [address] Result Comment: Marilin ents receiving either N-Acetylcysteine (NAC) or Metamizole prior to venipuncture, may have falsely depressed results. Performed By: #### 2 4321-2 ####[facility]ATORYCLIA [id number] [place] [id number] [place] Creatinine and Glomerular filtration rate.predicted panel (S/P/Bld) 109 mL/min/1.73m??? Normal >=60 [facility] Comment on above: Order Comment: Syd ramos Type: BLOOD SPECIMENOrdering Facility: [facility] Address: [address] [place] [address] Result Comment: Chrissy mated Glomerular Filtration Rate [...] actual GFR. Performed By: #### 2 4321-2 ####[facility]ATORYCLIA [id number] [place] [address] [place] Glucose [Mass/Vol] 97 mg/dL Normal 70-100 [facility] Comment on above: Order Comment: Syd ramos Type: BLOOD SPECIMENOrdering Facility: [facility] Address: [address] [place] [address] Result Comment: The [place] Diabetes Association (ADA) provides guidance for cutoff [...] Standards of Medical Care in Diabetes 2016, [place] [employer]. Diabetes Care. 2016.39(Suppl 1).Results may be falsely elevated after the administration of Sulfapyridine.Results may be falsely depressed after the administration of Sulfasalazine. Performed By: #### 2 4321-2 ####[facility]ORATORYCLIA [id number] [place] [id number] [place] Potassium [Moles/Vol] 3.3 mmol/L Low 3.5-5.1 [facility] Comment on above: Order Comment: Speci men Type: BLOOD SPECIMENOrdering Facility: [facility] Address: [address] [place] [address] Performed By: #### 2 4321-2 ####[facility]ATORYCLIA [id number] [place] [id number] [place] Sodium [Moles/Vol] 143 mmol/L Normal 136-145 [facility] Comment on above: Order Comment: Speci men Type: BLOOD SPECIMENOrdering Facility: [facility] Address: [address] [place] [address] Performed By: #### 2 4321-2 ####[facility]ORATORYCLIA [id number] [address] STATES OF [facility] Urea nitrogen [Mass/Vol] 14 mg/dL Normal 7-26 [facility] Comment on above: Order Comment: Speci men Type: BLOOD SPECIMENOrdering Facility: [facility] Address: [address] [place] [address] Performed By: #### 2 4321-2 ####[facility]ORATORYCLIA [id number] [place] [id number] [place] CASE MANAGEMon 12-11-2024 CASE MANAGEM Normal [facility] CBC panel Auto (Bld)on 12-11 Erythrocyte distribution width (RBC) [Ratio] 13.2 % Normal 11.5-15.0 [facility] Comment on above: Order Comment: Speci men Type: BLOOD SPECIMENOrdering Facility: [facility] Address: [address] [place] [address] Performed By: #### 5 8410-2 ####[facility]ATORYCLIA [id number] [place] [id number] [place] Hematocrit (Bld) [Volume fraction] 40.0 % Normal 36.0-46.0 [facility] Comment on above: Order Comment: Speci men Type: BLOOD SPECIMENOrdering Facility: [facility] Address: [address] [place] [address] Performed By: #### 5 8410-2 ####[facility]ATORYCLIA [id number] [place] [address] [place] Hemoglobin (Bld) [Mass/Vol] 13.5 g/dL Normal 11.5-15.5 [facility] Comment on above: Order Comment: Speci men Type: BLOOD SPECIMENOrdering Facility: [facility] Address: [address] [place] [address] Performed By: #### 5 8410-2 ####[facility]ORATORYCLIA [id number] [place] [address] [place] MCH (RBC) [Entitic mass] 31.8 pg Normal 26.0-34.0 [facility] Comment on above: Order Comment: Speci men Type: BLOOD SPECIMENOrdering Facility: [facility] Address: [address] [place] [address] Performed By: #### 5 8410-2 ####[facility]ORATORYCLIA [id number] [place] [address] [place] MCHC (RBC) [Mass/Vol] 33.8 g/dL Normal 30.5-36.0 [facility] Comment on above: Order Comment: Speci men Type: BLOOD SPECIMENOrdering Facility: [facility] Address: [address] [place] [address] Performed By: #### 5 8410-2 ####[facility]ORATORYCLIA [id number] [place] [address] [place] MCV (RBC) [Entitic vol] 94.1 fL Normal 80.0-100.0 [facility] Comment on above: Order Comment: Speci men Type: BLOOD SPECIMENOrdering Facility: [facility] Address: [address] [place] [address] Performed By: #### 5 8410-2 ####[facility]ORATORYCLIA [id number] [place] [id number] [place] Nucleated RBC (Bld) [#/Vol] 10*3/uL Normal <0.01 [facility] Comment on above: Order Comment: Speci men Type: BLOOD SPECIMENOrdering Facility: [facility] Address: [address] [place] [address] Performed By: #### 5 8410-2 ####[facility]ORATORYCLIA [id number] [place] [address] [place] Platelet mean volume (Bld) [Entitic vol] 9.2 fL Normal 9.0-12.7 [facility] Comment on above: Order Comment: Speci men Type: BLOOD SPECIMENOrdering Facility: [facility] Address: [address] [place] [address] Performed By: #### 5 8410-2 ####[facility]ORATORYCLIA [id number] [place] [id number] [place] Platelets (Bld) [#/Vol] 183 10*3/uL Normal 150-400 [facility] Comment on above: Order Comment: Speci men Type: BLOOD SPECIMENOrdering Facility: [facility] Address: [address] [place] [address] Performed By: #### 5 8410-2 ####[facility]ATORYCLIA [id number] [place] [address] [place] RBC (Bld) [#/Vol] 4.25 10*6/uL Normal 3.90-5.20 [facility] Comment on above: Order Comment: Speci men Type: BLOOD SPECIMENOrdering Facility: [facility] Address: [address] [place], [place] [address] Performed By: #### 5 8410-2 ####[facility]ORATORYCLIA [id number] [place] [id number] [place] WBC (Bld) [#/Vol] 6.23 10*3/uL Normal 3.70-11.00 [facility] Comment on above: Order Comment: Speci men Type: BLOOD SPECIMENOrdering Facility: [facility] Address: [address] [place] [address] Performed By: #### 5 8410-2 ####[facility]ATORYCLIA [id number] [place] [address] [place] [facility] CK SerPl-cCncon 12-11-2024 CK [Catalytic activity/Vol] 121 U/L Normal 28-152 [facility] Comment on above: Order Comment: Speci men Type: BLOOD SPECIMENOrdering Facility: [facility] Address: [address] [place] [address] Performed By: #### 2 157-6 ####[facility]ATORYCLIA [id number] [place] [id number] [facility] Lactate (Bld) [Moles/Vol]on 12-11-2024 Lactate [Moles/Vol] 0.9 mmol/L Normal 0.4-2.0 [facility] Comment on above: Order Comment: Speci men Type: BLOOD SPECIMENOrdering Facility: [facility] Address: [address] [place] [address] Performed By: #### 3 2693-4 ####[facility]ATORYCLIA [id number] [place] [id number] [facility] THERAPY NTon 12-11-2024 THERAPY NT Normal [facility] THERAPY NT Normal [facility] Ammonia Plas-sCncon 12-11-19 25 Ammonia (P) [Moles/Vol] 47 umol/L High 11-32 [facility] Comment on above: Order Comment: Speci men Type: BLOOD SPECIMENOrdering Facility: [facility] Address: [address] [place] [address] Result Comment: Resu lts may be falsely depressed after the administration of Sulfapyridine. Results may be falsely elevated after the administration of Sulfasalazine. Performed By: #### 1 6362-6 ####[facility]ATORYCLIA [id number] [place] [id number] [place] Basic metabolic 2000 panelon 12-10-2024 Anion gap [Moles/Vol] 7 mmol/L Normal 5-16 [facility] Comment on above: Order Comment: Speci men Type: BLOOD SPECIMENOrdering Facility: [facility] Address: [address] [place] [address] Performed By: #### 2 4321-2 ####[facility]ATORYCLIA [id number] [place] [id number] [place] Calcium [Mass/Vol] 9.2 mg/dL Normal 8.5-10.5 [facility] Comment on above: Order Comment: Speci men Type: BLOOD SPECIMENOrdering Facility: [facility] Address: [address] [place] [address] Performed By: #### 2 4321-2 ####[facility]ATORYCLIA [id number] [place] [address] [place] Chloride [Moles/Vol] 111 mmol/L High 98-107 [facility] Comment on above: Order Comment: Speci men Type: BLOOD SPECIMENOrdering Facility: [facility] Address: [address] [place] [address] Performed By: #### 2 4321-2 ####[facility]ATORYCLIA [id number] [place] [address] [place] CO2 [Moles/Vol] 27 mmol/L Normal 21-32 [facility] Comment on above: Order Comment: Speci men Type: BLOOD SPECIMENOrdering Facility: [facility] Address: [address] [place] [address] Performed By: #### 2 4321-2 ####[facility]ATORYCLIA [id number] [place] [address] [place] Creatinine [Mass/Vol] 0.64 mg/dL Normal 0.51-0.95 [facility] Comment on above: Order Comment: Speci men Type: BLOOD SPECIMENOrdering Facility: [facility] Address: [address] [place] [address] Result Comment: Marilin ents receiving either N-Acetylcysteine (NAC) or Metamizole prior to venipuncture, may have falsely depressed results. Performed By: #### 2 4321-2 ####[facility]ATORYCLIA [id number] [address] Creatinine and Glomerular filtration rate.predicted panel (S/P/Bld) 110 mL/min/1.73m??? Normal >=60 [facility] Comment on above: Order Comment: Syd ramos Type: BLOOD SPECIMENOrdering Facility: [facility] Address: [address] [place] [address] Result Comment: Chrissy mated Glomerular Filtration Rate [...] actual GFR. Performed By: #### 2 4321-2 ####[facility]ATORYCLIA [id number] [place] [address] [place] Glucose [Mass/Vol] 91 mg/dL Normal 70-100 [facility] Comment on above: Order Comment: Syd ramos Type: BLOOD SPECIMENOrdering Facility: [facility] Address: [address] [place] [address] Result Comment: The [place] [employer] (ADA) provides guidance for cutoff [...] Standards of Medical Care in Diabetes 2016, [place] [employer]. Diabetes Care. 2016.39(Suppl 1).Results may be falsely elevated after the administration of Sulfapyridine.Results may be falsely depressed after the administration of Sulfasalazine. Performed By: #### 2 4321-2 ####[facility]ATORYCLIA [id number] [place] [address] [place] Potassium [Moles/Vol] 3.4 mmol/L Low 3.5-5.1 [facility] Comment on above: Order Comment: Speci men Type: BLOOD SPECIMENOrdering Facility: [facility] Address: [address] [place] [address] Performed By: #### 2 4321-2 ####[facility]ATORYCLIA [id number] [place] [id number] [place] Sodium [Moles/Vol] 145 mmol/L Normal 136-145 [facility] Comment on above: Order Comment: Speci men Type: BLOOD SPECIMENOrdering Facility: [facility] Address: [address] [place] [address] Performed By: #### 2 4321-2 ####[facility]ATORYCLIA [id number] [place] [address] [place] Urea nitrogen [Mass/Vol] 11 mg/dL Normal 02-09 [facility] Comment on above: Order Comment: Speci men Type: BLOOD SPECIMENOrdering Facility: [facility] Address: [address] [place] [address] Performed By: #### 2 4321-2 ####[facility]ATORYCLIA [id number] [place] [id number] [place] CBC panel Auto (Bld)on 12-10 Erythrocyte distribution width (RBC) [Ratio] 13.1 % Normal 11.5-15.0 [facility] Comment on above: Order Comment: Speci men Type: BLOOD SPECIMENOrdering Facility: [facility] Address: [address] [place] [address] Performed By: #### 5 8410-2 ####[facility]ATORYCLIA [id number] [place] [address] [place] Hematocrit (Bld) [Volume fraction] 38.1 % Normal 36.0-46.0 [facility] Comment on above: Order Comment: Speci men Type: BLOOD SPECIMENOrdering Facility: [facility] Address: [address] [place] [address] Performed By: #### 5 8410-2 ####[facility]ATORYCLIA [id number] [place] [address] [place] Hemoglobin (Bld) [Mass/Vol] 12.9 g/dL Normal 11.5-15.5 [facility] Comment on above: Order Comment: Speci men Type: BLOOD SPECIMENOrdering Facility: [facility] Address: [address] [place] [address] Performed By: #### 5 8410-2 ####[facility]ATORYCLIA [id number] [address] [place] MCH (RBC) [Entitic mass] 31.9 pg Normal 26.0-34.0 [facility] Comment on above: Order Comment: Speci men Type: BLOOD SPECIMENOrdering Facility: [facility] Address: [address] [place] [address] Performed By: #### 5 8410-2 ####[facility]ATORYCLIA [id number] [address] [place] [facility] MCHC (RBC) [Mass/Vol] 33.9 g/dL Normal 30.5-36.0 [facility] Comment on above: Order Comment: Speci men Type: BLOOD SPECIMENOrdering Facility: [facility] Address: [address] [place] [address] Performed By: #### 5 8410-2 ####[facility]ATORYCLIA [id number] [address] [place] MCV (RBC) [Entitic vol] 94.1 fL Normal 80.0-100.0 [facility] Comment on above: Order Comment: Speci men Type: BLOOD SPECIMENOrdering Facility: [facility] Address: [address] [place] [address] Performed By: #### 5 8410-2 ####[facility]ATORYCLIA [id number] [place] [address] [place] Nucleated RBC (Bld) [#/Vol] 10*3/uL Normal <0.01 [facility] Comment on above: Order Comment: Speci men Type: BLOOD SPECIMENOrdering Facility: [facility] Address: [address] [place] [address] Performed By: #### 5 8410-2 ####[facility]ATORYCLIA [id number] [place] [address] [place] Platelet mean volume (Bld) [Entitic vol] 8.7 fL Low 9.0-12.7 [facility] Comment on above: Order Comment: Speci men Type: BLOOD SPECIMENOrdering Facility: [facility] Address: [address] [place] [address] Performed By: #### 5 8410-2 ####[facility]ATORYCLIA [id number] [place] [id number] [place] Platelets (Bld) [#/Vol] 160 10*3/uL Normal 150-400 [facility] Comment on above: Order Comment: Speci men Type: BLOOD SPECIMENOrdering Facility: [facility] Address: [address] [place] [address] Performed By: #### 5 8410-2 ####[facility]ATORYCLIA [id number] [place] [id number] [place] RBC (Bld) [#/Vol] 4.05 10*6/uL Normal 3.90-5.20 [facility] Comment on above: Order Comment: Speci men Type: BLOOD SPECIMENOrdering Facility: [facility] Address: [address] [place] [address] Performed By: #### 5 8410-2 ####[facility]ATORYCLIA [id number] [place] [id number] [place] WBC (Bld) [#/Vol] 5.37 10*3/uL Normal 3.70-11.00 [facility] Comment on above: Order Comment: Speci men Type: BLOOD SPECIMENOrdering Facility: [facility] Address: [address] [place], [place] [address] Performed By: #### 5 8410-2 ####[facility]ATORYCLIA [id number] [place] [address] [place] Bas Metab 2000 Pnl SerPlon 0 12-09-2024 Potassium [Moles/Vol] 3.6 mmol/L Normal 3.5-5.1 [facility] Comment on above: Order Comment: Speci men Type: BLOOD SPECIMENOrdering Facility: [facility] Address: [address] [place] [address] Performed By: #### 2 4321-2, 80646-5, TSHRF, 3024-7, 38993-8 ####[facility]ATORYCLIA [id number] [place] [id number] [place] Urea nitrogen [Mass/Vol] 11 mg/dL Normal 7-26 [facility] Comment on above: Order Comment: Speci men Type: BLOOD SPECIMENOrdering Facility: [facility] Address: [address] [place] [address] Performed By: #### 2 4321-2, 13918-3, TSHRF, 3024-7, 75484-1 ####[facility]ATORYCLIA [id number] [place] [id number] [place] Basic metabolic 2000 panelon 12-09-2024 Anion gap [Moles/Vol] 9 mmol/L Normal 5-16 [facility] Comment on above: Order Comment: Speci men Type: BLOOD SPECIMENOrdering Facility: [facility] Address: [address] [place] [address] Performed By: #### 2 4321-2, 68342-9, TSHRF, 3024-7, 92111-1 ####[facility]ATORYCLIA [id number] [place] [address] [place] Calcium [Mass/Vol] 8.7 mg/dL Normal 8.5-10.5 [facility] Comment on above: Order Comment: Speci men Type: BLOOD SPECIMENOrdering Facility: [facility] Address: [address] [place] [address] Performed By: #### 2 4321-2, 72823-9, TSHRF, 3024-7, 70915-5 ####[facility]ATORYCLIA [id number] [place] [address] [place] Chloride [Moles/Vol] 111 mmol/L High 98-107 [facility] Comment on above: Order Comment: Speci men Type: BLOOD SPECIMENOrdering Facility: [facility] Address: [address] [place] [address] Performed By: #### 2 4321-2, 22738-1, TSH, 3024-7, 19356-6 ####[facility]ATORYCLIA [id number] [place] [address] [place] CO2 [Moles/Vol] 25 mmol/L Normal 21-32 [facility] Comment on above: Order Comment: Speci men Type: BLOOD SPECIMENOrdering Facility: [facility] Address: [address] [place] [address] Performed By: #### 2 4321-2, 19982-2, TSH, 302-7, 11487-9 ####[facility]ATORYCLIA [id number] [place] [address] [place] Creatinine [Mass/Vol] 0.54 mg/dL Normal 0.51-0.95 [facility] Comment on above: Order Comment: Speci men Type: BLOOD SPECIMENOrdering Facility: [facility] Address: [address] [place] [address] Result Comment: Marilin ents receiving either N-Acetylcysteine (NAC) or Metamizole prior to venipuncture, may have falsely depressed results. Performed By: #### 2 4321-2, 02361-5, TSH, 302-7, 59926-6 ####[facility]ORATORYCLIA [id number] [place] [address] [place] Creatinine and Glomerular filtration rate.predicted panel (S/P/Bld) 114 mL/min/1.73m??? Normal >=60 [facility] Comment on above: Order Comment: Speci men Type: BLOOD SPECIMENOrdering Facility: [facility] Address: [address] [place] [id number] Result Comment: Chrissy mated Glomerular Filtration Rate [...] actual GFR. Performed By: #### 2 4321-2, 58275-0, [facility], 3023-7, 45009-1 ####[facility]ATORYCLIA [id number] [place] [address] [place] Glucose [Mass/Vol] 97 mg/dL Normal 70-100 [facility] Comment on above: Order Comment: Syd ramos Type: BLOOD SPECIMENOrdering Facility: [facility] Address: [address] [place] [address] Result Comment: The [place] [employer] (ADA) provides guidance for cutoff [...] Standards of Medical Care in Diabetes 2016, [place] [employer]. Diabetes Care. 2016.39(Suppl 1).Results may be falsely elevated after the administration of Sulfapyridine.Results may be falsely depressed after the administration of Sulfasalazine. Performed By: #### 2 4321-2, 23899-2, TSH, 302-7, 74445-5 ####[facility]ATORYCLIA [id number] [place] [address] [place] Sodium [Moles/Vol] 145 mmol/L Normal 136-145 [facility] Comment on above: Order Comment: Speci men Type: BLOOD SPECIMENOrdering Facility: [facility] Address: [address] [place] [address] Performed By: #### 2 4321-2, 08085-6, TSHRF, 3024-7, 28370-0 ####[facility]ATORYCLIA [id number] [place] [id number] [place] CASE MANAGEMon 12-09-2024 CASE MANAGEM Normal [facility] CBC panel Auto (Bld)on 12-09 Erythrocyte distribution width (RBC) [Ratio] 13.0 % Normal 11.5-15.0 [facility] Comment on above: Order Comment: Speci men Type: BLOOD SPECIMENOrdering Facility: [facility] Address: [address] [place] [address] Performed By: #### 5 8410-2, WAMMR ####[facility]ATORYCLIA [id number] [address] [place] Hematocrit (Bld) [Volume fraction] 37.0 % Normal 36.0-46.0 [facility] Comment on above: Order Comment: Speci men Type: BLOOD SPECIMENOrdering Facility: [facility] Address: [address] [place] [address] Performed By: #### 5 8410-2, WAMMR ####[facility]ATORYCLIA [id number] [place] [address] [place] Hemoglobin (Bld) [Mass/Vol] 12.7 g/dL Normal 11.5-15.5 [facility] Comment on above: Order Comment: Speci men Type: BLOOD SPECIMENOrdering Facility: [facility] Address: [address] [place] [address] Performed By: #### 5 8410-2, WAMMR ####[facility]ATORYCLIA [id number] [place] [id number] [place] MCH (RBC) [Entitic mass] 32.1 pg Normal 26.0-34.0 [facility] Comment on above: Order Comment: Speci men Type: BLOOD SPECIMENOrdering Facility: [facility] Address: [address] [place] [address] Performed By: #### 5 8410-2, WAMMR ####[facility]ATORYCLIA [id number] [address] [place] MCHC (RBC) [Mass/Vol] 34.3 g/dL Normal 30.5-36.0 [facility] Comment on above: Order Comment: Speci men Type: BLOOD SPECIMENOrdering Facility: [facility] Address: [address] [place] [address] Performed By: #### 5 8410-2, WAMMR ####[facility]ATORYCLIA [id number] [place] [address] [place] MCV (RBC) [Entitic vol] 93.4 fL Normal 80.0-100.0 [facility] Comment on above: Order Comment: Speci men Type: BLOOD SPECIMENOrdering Facility: [facility] Address: [address] [place] [address] Performed By: #### 5 8410-2, WAMMR ####[facility]ATORYCLIA [id number] [place] [address] [place] Nucleated RBC (Bld) [#/Vol] 10*3/uL Normal <0.01 [facility] Comment on above: Order Comment: Speci men Type: BLOOD SPECIMENOrdering Facility: [facility] Address: [address] [place] [address] Performed By: #### 5 8410-2, WAMMR ####[facility]ATORYCLIA [id number] [place] [address] [place] Platelet mean volume (Bld) [Entitic vol] 9.7 fL Normal 9.0-12.7 [facility] Comment on above: Order Comment: Speci men Type: BLOOD SPECIMENOrdering Facility: [facility] Address: [address] [place] [address] Performed By: #### 5 8410-2, WAMMR ####[facility]ORATORYCLIA [id number] [place] [address] [facility] [place] Platelets (Bld) [#/Vol] 135 10*3/uL Low 150-400 [facility] Comment on above: Order Comment: Speci men Type: BLOOD SPECIMENOrdering Facility: [facility] Address: [address] [place] [address] Result Comment: Micr otainer sample. No clot detected. Performed By: #### 5 8410-2, WAMMR ####[facility]ATORYCLIA [id number] [place] [address] [place] RBC (Bld) [#/Vol] 3.96 10*6/uL Normal 3.90-5.20 [facility] Comment on above: Order Comment: Speci men Type: BLOOD SPECIMENOrdering Facility: [facility] Address: [address] [place] [address] Performed By: #### 5 8410-2, WAMMR ####[facility]ORATORYCLIA [id number] [address] OF [facility] WBC (Bld) [#/Vol] 5.06 10*3/uL Normal 3.70-11.00 [facility] Comment on above: Order Comment: Speci men Type: BLOOD SPECIMENOrdering Facility: [facility] Address: [address] [place] [address] Performed By: #### 5 8410-2, WAMMR ####[facility]ATORYCLIA [id number] [address] [place] Comprehensive metabolic 2000 panelon 12-09-2024 Albumin [Mass/Vol] 2.5 g/dL Low 3.2-5.0 [facility] Comment on above: Order Comment: Speci men Type: BLOOD SPECIMENOrdering Facility: [facility] Address: [address] [place] [address] Performed By: #### 2 4321-2, 54669-8, TSHRF, 3024-7, 38561-0 ####[facility]ATORYCLIA [id number] [place] [address] [place] ALP [Catalytic activity/Vol] 58 U/L Normal 45-117 [facility] Comment on above: Order Comment: Speci men Type: BLOOD SPECIMENOrdering Facility: [facility] Address: [address] [place] [address] Performed By: #### 2 4321-2, 99242-8, TSHRF, 3024-7, 05779-8 ####[facility]ORATORYCLIA [id number] [place] [id number] [place] ALT [Catalytic activity/Vol] 28 U/L Normal 13-61 [facility] Comment on above: Order Comment: Speci men Type: BLOOD SPECIMENOrdering Facility: [facility] Address: [address] [place] [address] Result Comment: Resu lts may be falsely depressed after the administration of Sulfasalazine and/or Sulfapyridine. Performed By: #### 2 4321-2, 61834-3, TSHRF, 3023-7, 47804-0 ####[facility]ATORYCLIA [id number] [address] STATES OF [facility] Anion gap [Moles/Vol] 12 mmol/L Normal 5-16 [facility] Comment on above: Order Comment: Speci men Type: BLOOD SPECIMENOrdering Facility: [facility] Address: [address] [place] [address] Performed By: #### 2 4321-2, 48038-0, TSHRF, 302-7, 55538-4 ####[facility]ATORYCLIA [id number] [place] [id number] [place] AST [Catalytic activity/Vol] 33 U/L Normal 8-34 [facility] Comment on above: Order Comment: Speci men Type: BLOOD SPECIMENOrdering Facility: [facility] Address: [address] [place] [address] Result Comment: Resu lts may be falsely depressed after the administration of Sulfasalazine and/or Sulfapyridine. Performed By: #### 2 4321-2, , TSHRF, 3024-7, 08871-4 ####[facility]ORATORYCLIA [id number] [place] [address] [place] Bilirubin [Mass/Vol] 0.3 mg/dL Normal 0.2-1.0 [facility] Comment on above: Order Comment: Speci men Type: BLOOD SPECIMENOrdering Facility: [facility] Address: [address] [place] [address] Performed By: #### 2 4321-2, , TSHRF, 3024-7, 40829-3 ####[facility]ORATORYCLIA [id number] [place] [id number] [place] Calcium [Mass/Vol] 8.8 mg/dL Normal 8.5-10.5 [facility] Comment on above: Order Comment: Speci men Type: BLOOD SPECIMENOrdering Facility: [facility] Address: [address] [place] [address] Performed By: #### 2 4320-2, , TSHRF, 302-7, 53632-4 ####[facility]ORATORYCLIA [id number] [place] [id number] [place] Chloride [Moles/Vol] 114 mmol/L High 98-107 [facility] Comment on above: Order Comment: Speci men Type: BLOOD SPECIMENOrdering Facility: [facility] Address: [address] [place] [address] Performed By: #### 2 4321-2, , TSHRF, 302-7, 28140-6 ####[facility] LABORATORYCLIA [id number] [place] [address] [place] CO2 [Moles/Vol] 21 mmol/L Normal 21-32 [facility] Comment on above: Order Comment: Speci men Type: BLOOD SPECIMENOrdering Facility: [facility] Address: [address] [place] [address] Performed By: #### 2 4321-2, 72175-7, TSHRF, 3024-7, 70890-2 ####[facility]ORATORYCLIA [id number] [place] [id number] [place] Creatinine [Mass/Vol] 0.53 mg/dL Normal 0.51-0.95 [place] [facility] Comment on above: Order Comment: Speci richard Type: BLOOD SPECIMENOrdering Facility: [facility] Address: [address] [place] [address] Result Comment: Marilin ents receiving either N-Acetylcysteine (NAC) or Metamizole prior to venipuncture, may have falsely depressed results. Performed By: #### 2 4321-2, 20210-2, [facility], 3024-01, ####[facility]ATORYCLIA [id number] [place] [id number] [place] [facility] Creatinine and Glomerular filtration rate.predicted panel (S/P/Bld) 115 mL/min/1.73m??? Normal >=60 [facility] Comment on above: Order Comment: Irmai richard Type: BLOOD SPECIMENOrdering Facility: [facility] Address: [address] [place] [address] Result Comment: Chrissy mated Glomerular Filtration Rate [...] actual GFR. Performed By: #### 2 4321-2, 53401-9, [facility], 3024-01, ####[facility]ATORYCLIA [id number] [place] [id number] [place] Glucose [Mass/Vol] 100 mg/dL Normal 70-100 [facility] Comment on above: Order Comment: Irmai richard Type: BLOOD SPECIMENOrdering Facility: [facility] Address: [address] [place] [address] Result Comment: The [place] Diabetes Association (ADA) provides guidance for cutoff [...] Standards of Medical Care in Diabetes 2016, [place] [employer]. Diabetes Care. 2016.39(Suppl 1).Results may be falsely elevated after the administration of Sulfapyridine.Results may be falsely depressed after the administration of Sulfasalazine. Performed By: #### 2 4321-2, 91204-7, [facility], 3023-, 22619-1 ####[facility]ATORYCLIA [id number] [place] [address] [place] Protein [Mass/Vol] 5.4 g/dL Low 6.0-8.5 [facility] Comment on above: Order Comment: Speci men Type: BLOOD SPECIMENOrdering Facility: [facility] Address: [address] [place] [address] Performed By: #### 2 4321-2, 22450-9, [facility], 3024-01, 71613-1 ####[facility]ATORYCLIA [id number] [place] [address] [place] Sodium [Moles/Vol] 147 mmol/L High 136-145 [facility] Comment on above: Order Comment: Speci men Type: BLOOD SPECIMENOrdering Facility: [facility] Address: [address] [place] [address] Performed By: #### 2 4321-2, 55487-0, [facility], 3024-01, 40920-5 ####[facility]ATORYCLIA [id number] [place] [id number] [place] MORPH WAM REFLEXon 5 Ovalocytes LM Ql (Bld) Few Normal [facility] Comment on above: Order Comment: Speci men Type: BLOOD SPECIMENOrdering Facility: [facility] Address: [address] [place] [address] Performed By: #### 5 8410-2, WAMMR ####[facility]ATORYCLIA [id number] [place] [address] [place] Platelet clump LM Ql (Bld) Present Normal [facility] Comment on above: Order Comment: Speci men Type: BLOOD SPECIMENOrdering Facility: [facility] Address: [address] [place] [address] Performed By: #### 5 8410-2, WAMMR ####[facility]ATORYCLIA [id number] [place] [address] [facility] [place] Platelets Estimate (Bld) [#/Vol] Decreased Normal [facility] Comment on above: Order Comment: Speci men Type: BLOOD SPECIMENOrdering Facility: [facility] Address: [address] [place] [address] Performed By: #### 5 8410-2, WAMMR ####[facility]ATORYCLIA [id number] [place] [address] [place] Polychromasia LM Ql (Bld) Slight Normal [facility] Comment on above: Order Comment: Speci men Type: BLOOD SPECIMENOrdering Facility: [facility] Address: [address] [place] [address] Performed By: #### 5 8410-2, WAMMR ####[facility]ATORYCLIA [id number] [place] [address] [place] RED CELL MORPH Reviewed: see result s of individual morphologies Normal [facility] Comment on above: Order Comment: Speci men Type: BLOOD SPECIMENOrdering Facility: [facility] Address: [address] [place] [id number] Performed By: #### 5 8410-2, WAMMR ####[facility]ATORYCLIA [id number] [place] [address] [place] Magnesium SerPl[facility] Magnesium [Mass/Vol] 1.9 mg/dL Normal 1.6-2.6 [facility] Comment on above: Order Comment: Speci men Type: BLOOD SPECIMENOrdering Facility: [facility] Address: [address] [place] [address] Performed By: #### 2 4321-2, 70579-1, [facility], 3024-7, 98658-3 ####[facility]ATORYCLIA [id number] [place] [address] [place] T4 Free SerPl-mCncon 025 Free T4 [Mass/Vol] 1.4 ng/dL Normal 0.8-1.5 [facility] Comment on above: Order Comment: Speci men Type: BLOOD SPECIMENOrdering Facility: [facility] Address: [address] [place] [address] Performed By: #### 2 4321-2, 38793-6, [facility], 3024-7, 93014-9 ####[facility]ATORYCLIA [id number] [address] STATES OF [facility] TSH W/REFLEX FT4on TSH Qn 3.832 m[IU]/L High 0.358-3.74 0 [facility] Comment on above: Order Comment: Speci men Type: BLOOD SPECIMENOrdering Facility: [facility] Address: [address] [place] [address] Result Comment: 3rd generation ultra sensitive TSH. Performed By: #### 2 4321-2, 17990-3, [facility], 3024-7, 56709-7 ####[facility]ATORYCLIA [id number] [place] [address] [place] XR CHEST 1V FRONTALon 2024 XR CHEST 1V FRONTAL Normal [facility] Basic metabolic 2000 panelon 12-08-2024 Anion gap [Moles/Vol] 10 mmol/L Normal 5-16 [facility] Comment on above: Order Comment: Speci men Type: BLOOD SPECIMENOrdering Facility: [facility] Address: [address] [place] [address] Performed By: #### 2 4321-2 ####[facility]ATORYCLIA [id number] [place] [address] [place] Calcium [Mass/Vol] 9.2 mg/dL Normal 8.5-10.5 [facility] Comment on above: Order Comment: Speci men Type: BLOOD SPECIMENOrdering Facility: [facility] Address: [address] [place] [address] Performed By: #### 2 4321-2 ####[facility]ATORYCLIA [id number] [place] [id number] [place] Chloride [Moles/Vol] 110 mmol/L High 98-107 [facility] Comment on above: Order Comment: Speci men Type: BLOOD SPECIMENOrdering Facility: [facility] Address: [address] [place] [address] Performed By: #### 2 4321-2 ####[facility]ATORYCLIA [id number] [place] [address] [place] CO2 [Moles/Vol] 25 mmol/L Normal 21-32 [facility] Comment on above: Order Comment: Speci men Type: BLOOD SPECIMENOrdering Facility: [facility] Address: [address] [place] [address] Performed By: #### 2 4321-2 ####[facility]ATORYCLIA [id number] [place] [address] [place] Creatinine [Mass/Vol] 0.56 mg/dL Normal 0.51-0.95 [facility] Comment on above: Order Comment: Speci men Type: BLOOD SPECIMENOrdering Facility: [facility] Address: [address] [place] [address] Result Comment: Marilin ents receiving either N-Acetylcysteine (NAC) or Metamizole prior to venipuncture, may have falsely depressed results. Performed By: #### 2 4321-2 ####[facility]ATORYCLIA [id number] [place] [id number] [place] Creatinine and Glomerular filtration rate.predicted panel (S/P/Bld) 113 mL/min/1.73m??? Normal >=60 [facility] Comment on above: Order Comment: Syd ramos Type: BLOOD SPECIMENOrdering Facility: [facility] Address: [address] [place] [address] Result Comment: Chrissy mated Glomerular Filtration Rate [...] actual GFR. Performed By: #### 2 4321-2 ####[facility]ATORYCLIA [id number] [place] [id number] [place] Glucose [Mass/Vol] 97 mg/dL Normal 70-100 [facility] Comment on above: Order Comment: Syd ramos Type: BLOOD SPECIMENOrdering Facility: [facility] Address: [address] [place] [address] Result Comment: The [place] Diabetes Association (ADA) provides guidance for cutoff [...] Standards of Medical Care in Diabetes 2016, [place] [employer]. Diabetes Care. 2016.39(Suppl 1).Results may be falsely elevated after the administration of Sulfapyridine.Results may be falsely depressed after the administration of Sulfasalazine. Performed By: #### 2 4321-2 ####[facility]ATORYCLIA [id number] [place] [id number] [place] Potassium [Moles/Vol] 3.5 mmol/L Normal 3.5-5.1 [facility] Comment on above: Order Comment: Speci men Type: BLOOD SPECIMENOrdering Facility: [facility] Address: [address] [place] [address] Performed By: #### 2 4321-2 ####[facility]ATORYCLIA [id number] [place] [id number] [place] [facility] Sodium [Moles/Vol] 145 mmol/L Normal 136-145 [facility] Comment on above: Order Comment: Speci men Type: BLOOD SPECIMENOrdering Facility: [facility] Address: [address] [place] [address] Performed By: #### 2 4321-2 ####[facility]ATORYCLIA [id number] [place] [id number] [place] Urea nitrogen [Mass/Vol] 8 mg/dL Normal 7-26 [facility] Comment on above: Order Comment: Speci men Type: BLOOD SPECIMENOrdering Facility: [facility] Address: [address] [place] [address] Performed By: #### 2 4321-2 ####[facility]ATORYCLIA [id number] [place] [id number] [place] CASE MANAGEMon 12-08-2024 CASE MANAGEM Normal [facility] CBC panel Auto (Bld)on 12-08 Erythrocyte distribution width (RBC) [Ratio] 13.2 % Normal 11.5-15.0 [facility] Comment on above: Order Comment: Speci men Type: BLOOD SPECIMENOrdering Facility: [facility] Address: [address] [place] [address] Performed By: #### 5 8410-2 ####[facility]ATORYCLIA [id number] [place] [id number] [place] Hematocrit (Bld) [Volume fraction] 38.8 % Normal 36.0-46.0 [facility] Comment on above: Order Comment: Speci men Type: BLOOD SPECIMENOrdering Facility: [facility] Address: [address] [place] [address] Performed By: #### 5 8410-2 ####[facility]ATORYCLIA [id number] [place] [address] [place] Hemoglobin (Bld) [Mass/Vol] 12.9 g/dL Normal 11.5-15.5 [facility] Comment on above: Order Comment: Speci men Type: BLOOD SPECIMENOrdering Facility: [facility] Address: [address] [place] [address] Performed By: #### 5 8410-2 ####[facility]ATORYCLIA [id number] [address] MCH (RBC) [Entitic mass] 31.5 pg Normal 26.0-34.0 [facility] Comment on above: Order Comment: Speci men Type: BLOOD SPECIMENOrdering Facility: [facility] Address: [address] [place] [address] Performed By: #### 5 8410-2 ####[facility]ATORYCLIA [id number] [address] [place] MCHC (RBC) [Mass/Vol] 33.2 g/dL Normal 30.5-36.0 [facility] Comment on above: Order Comment: Speci men Type: BLOOD SPECIMENOrdering Facility: [facility] Address: [address] [place] [address] Performed By: #### 5 8410-2 ####[facility]ATORYCLIA [id number] [address] [place] MCV (RBC) [Entitic vol] 94.9 fL Normal 80.0-100.0 [facility] Comment on above: Order Comment: Speci men Type: BLOOD SPECIMENOrdering Facility: [facility] Address: [address] [place] [address] Performed By: #### 5 8410-2 ####[facility]ATORYCLIA [id number] [address] [place] Nucleated RBC (Bld) [#/Vol] 10*3/uL Normal <0.01 [facility] Comment on above: Order Comment: Speci men Type: BLOOD SPECIMENOrdering Facility: [facility] Address: [address] [place] [id number] Performed By: #### 5 8410-2 ####[facility]ATORYCLIA [id number] [place] [id number] [place] Platelet mean volume (Bld) [Entitic vol] 9.7 fL Normal 9.0-12.7 [facility] Comment on above: Order Comment: Speci men Type: BLOOD SPECIMENOrdering Facility: [facility] Address: [address] [place] [address] Performed By: #### 5 8410-2 ####[facility]ATORYCLIA [id number] [place] [id number] [place] Platelets (Bld) [#/Vol] 151 10*3/uL Normal 150-400 [facility] Comment on above: Order Comment: Speci men Type: BLOOD SPECIMENOrdering Facility: [facility] Address: [address] [place] [address] Performed By: #### 5 8410-2 ####[facility]ATORYCLIA [id number] [place] [address] [place] RBC (Bld) [#/Vol] 4.09 10*6/uL Normal 3.90-5.20 [facility] Comment on above: Order Comment: Speci men Type: BLOOD SPECIMENOrdering Facility: [facility] Address: [address] [place] [address] Performed By: #### 5 8410-2 ####[facility]ATORYCLIA [id number] [place] [id number] [place] WBC (Bld) [#/Vol] 5.76 10*3/uL Normal 3.70-11.00 [facility] Comment on above: Order Comment: Speci men Type: BLOOD SPECIMENOrdering Facility: [facility] Address: [address] [place] [address] Performed By: #### 5 8410-2 ####[facility]ATORYCLIA [id number] [place] [id number] [place] CONSULTon 05-24-2025 CONSULT Normal [facility] 25(OH)D3 SerPl-mCncon 2024 25-hydroxyvitamin D3 [Mass/Vol] 63.8 ng/mL Normal 30.0-100.0 [facility] Comment on above: Order Comment: Speci men Type: BLOOD SPECIMENOrdering Facility: [facility] Address: [address] [place] [address] Result Comment: Defi ciency\X09\Less than 20 ng/mLInsufficiency\X09\20 - Less than 30 ng/mLSufficiency\X09\30 - 100 ng/mL Performed By: #### 2 284-8, 1988-09 ####[facility]ATORYCLIA [id number] [place] [address] [place] Basic metabolic 2000 panelon 12-07-2024 Anion gap [Moles/Vol] 10 mmol/L Normal 5-16 [facility] Comment on above: Order Comment: Speci men Type: BLOOD SPECIMENOrdering Facility: [facility] Address: [address] [place] [address] Performed By: #### 2 4321-2 ####[facility]ATORYCLIA [id number] [place] [address] [place] Calcium [Mass/Vol] 9.0 mg/dL Normal 8.5-10.5 [facility] Comment on above: Order Comment: Speci men Type: BLOOD SPECIMENOrdering Facility: [facility] Address: [address] [place] [address] Performed By: #### 2 4321-2 ####[facility]ATORYCLIA [id number] [place] [id number] [place] Chloride [Moles/Vol] 111 mmol/L High 98-107 [facility] Comment on above: Order Comment: Speci men Type: BLOOD SPECIMENOrdering Facility: [facility] Address: [address] [place] [address] Performed By: #### 2 4321-2 ####[facility]ATORYCLIA [id number] [address] [place] CO2 [Moles/Vol] 25 mmol/L Normal 21-32 [facility] Comment on above: Order Comment: Syd ramos Type: BLOOD SPECIMENOrdering Facility: [facility] Address: [address] [place] [address] Performed By: #### 2 4321-2 ####[facility]ATORYCLIA [id number] [address] [place] Creatinine [Mass/Vol] 0.55 mg/dL Normal 0.51-0.95 [facility] Comment on above: Order Comment: Syd ramos Type: BLOOD SPECIMENOrdering Facility: [facility] Address: [address] [place] [address] Result Comment: Marilin ents receiving either N-Acetylcysteine (NAC) or Metamizole prior to venipuncture, may have falsely depressed results. Performed By: #### 2 4321-2 ####[facility]ATORYCLIA [id number] [address] Creatinine and Glomerular filtration rate.predicted panel (S/P/Bld) 114 mL/min/1.73m??? Normal >=60 [facility] Comment on above: Order Comment: Syd ramos Type: BLOOD SPECIMENOrdering Facility: [facility] Address: [address] [place] [address] Result Comment: Chrissy mated Glomerular Filtration Rate [...] actual GFR. Performed By: #### 2 4321-2 ####[facility]ATORYCLIA [id number] [address] [place] Glucose [Mass/Vol] 109 mg/dL High 70-100 [facility] Comment on above: Order Comment: Syd ramos Type: BLOOD SPECIMENOrdering Facility: [facility] Address: [address] [place] [id number] Result Comment: The [place] Diabetes Association (ADA) provides guidance for cutoff [...] Standards of Medical Care in Diabetes 2016, [place] [employer]. Diabetes Care. 2016.39(Suppl 1).Results may be falsely elevated after the administration of Sulfapyridine.Results may be falsely depressed after the administration of Sulfasalazine. Performed By: #### 2 4321-2 ####[facility]ATORYCLIA [id number] [place] [address] [place] Potassium [Moles/Vol] 3.7 mmol/L Normal 3.5-5.1 [facility] Comment on above: Order Comment: Speci men Type: BLOOD SPECIMENOrdering Facility: [facility] Address: [address] [place] [id number] Performed By: #### 2 4321-2 ####[facility]ATORYCLIA [id number] [place] [address] [place] Sodium [Moles/Vol] 146 mmol/L High 136-145 [facility] Comment on above: Order Comment: Speci men Type: BLOOD SPECIMENOrdering Facility: [facility] Address: [address] [place] [id number] Performed By: #### 2 4321-2 ####[facility]ATORYCLIA [id number] [place] [address] [place] Urea nitrogen [Mass/Vol] 8 mg/dL Normal 7-26 [facility] Comment on above: Order Comment: Speci men Type: BLOOD SPECIMENOrdering Facility: [facility] Address: [address] [place] [id number] Performed By: #### 2 4321-2 ####[facility]ATORYCLIA [id number] [place] [id number] [place] CASE MANAGEMon 12-07-2024 CASE MANAGEM Normal [facility] CASE MANAGEM Normal [facility] CBC panel Auto (Bld)on 12-07 Erythrocyte distribution width (RBC) [Ratio] 13.2 % Normal 11.5-15.0 [facility] Comment on above: Order Comment: Speci men Type: BLOOD SPECIMENOrdering Facility: [facility] Address: [address] [place] [address] Performed By: #### 5 8410-2 ####[facility]ATORYCLIA [id number] [address] STATES [facility] Hematocrit (Bld) [Volume fraction] 43.4 % Normal 36.0-46.0 [facility] Comment on above: Order Comment: Speci men Type: BLOOD SPECIMENOrdering Facility: [facility] Address: [address] [place] [address] Performed By: #### 5 8410-2 ####[facility]ATORYCLIA [id number] [place] [address] [place] Hemoglobin (Bld) [Mass/Vol] 14.8 g/dL Normal 11.5-15.5 [facility] Comment on above: Order Comment: Speci men Type: BLOOD SPECIMENOrdering Facility: [facility] Address: [address] [place] [address] Performed By: #### 5 8410-2 ####[facility]ATORYCLIA [id number] [place] [address] [place] MCH (RBC) [Entitic mass] 32.9 pg Normal 26.0-34.0 [facility] Comment on above: Order Comment: Speci men Type: BLOOD SPECIMENOrdering Facility: [facility] Address: [address] [place] [address] Performed By: #### 5 8410-2 ####[facility]ATORYCLIA [id number] [address] [place] MCHC (RBC) [Mass/Vol] 34.1 g/dL Normal 30.5-36.0 [facility] Comment on above: Order Comment: Speci men Type: BLOOD SPECIMENOrdering Facility: [facility] Address: [address] [place] [address] Performed By: #### 5 8410-2 ####[facility]ATORYCLIA [id number] [place] [address] [place] MCV (RBC) [Entitic vol] 96.4 fL Normal 80.0-100.0 [facility] Comment on above: Order Comment: Speci men Type: BLOOD SPECIMENOrdering Facility: [facility] Address: [address] [place] [address] Performed By: #### 5 8410-2 ####[facility]ATORYCLIA [id number] [address] [place] Nucleated RBC (Bld) [#/Vol] 10*3/uL Normal <0.01 [facility] Comment on above: Order Comment: Speci men Type: BLOOD SPECIMENOrdering Facility: [facility] Address: [address] [place] [address] Performed By: #### 5 8410-2 ####[facility]ATORYCLIA [id number] [place] [address] [place] Platelet mean volume (Bld) [Entitic vol] 9.0 fL Normal 9.0-12.7 [facility] Comment on above: Order Comment: Speci men Type: BLOOD SPECIMENOrdering Facility: [facility] Address: [address] [place] [address] Performed By: #### 5 8410-2 ####[facility]ATORYCLIA [id number] [place] [address] [place] Platelets (Bld) [#/Vol] 115 10*3/uL Low 150-400 [facility] Comment on above: Order Comment: Speci men Type: BLOOD SPECIMENOrdering Facility: [facility] Address: [facility] [place] [address] Performed By: #### 5 8410-2 ####[facility]ATORYCLIA [id number] [place] [id number] [place] RBC (Bld) [#/Vol] 4.50 10*6/uL Normal 3.90-5.20 [facility] Comment on above: Order Comment: Speci men Type: BLOOD SPECIMENOrdering Facility: [facility] Address: [address] [place] [address] Performed By: #### 5 8410-2 ####[facility]ATORYCLIA [id number] [place] [id number] [place] WBC (Bld) [#/Vol] 5.87 10*3/uL Normal 3.70-11.00 [facility] Comment on above: Order Comment: Speci men Type: BLOOD SPECIMENOrdering Facility: [facility] Address: [address] [place] [address] Performed By: #### 5 8410-2 ####[facility]ORATORYCLIA [id number] [place] [address] [place] Folate SerPl-ncon 12-08-19 25 Folate [Mass/Vol] 16.8 ng/mL Normal >3.0 [facility] Comment on above: Order Comment: Speci men Type: BLOOD SPECIMENOrdering Facility: [facility] Address: [address] [place] [address] Performed By: #### 2 284-8, 1988-09 ####[facility]ATORYCLIA [id number] [place] [id number] [place] THERAPY NTon 12-07-2024 THERAPY NT Normal [facility] THERAPY NT Normal [facility] Vit B12 SerPl-mCncon 025 Cobalamin (Vitamin B12) [Mass/Vol] 627 pg/mL Normal 193-986 [facility] Comment on above: Order Comment: Speci men Type: BLOOD SPECIMENOrdering Facility: [facility] Address: [address] [place] [address] Performed By: #### 2 132-9 ####[facility]ATORYCLIA [id number] [place] [id number] [place] Basic metabolic 2000 panelon 12-06-2024 Anion gap [Moles/Vol] 9 mmol/L Normal 5-16 [facility] Comment on above: Order Comment: Speci men Type: BLOOD SPECIMENOrdering Facility: [facility] Address: [address] [place] [address] Performed By: #### 2 4321-2 ####[facility]ATORYCLIA [id number] [place] [address] [place] Calcium [Mass/Vol] 8.9 mg/dL Normal 8.5-10.5 [facility] Comment on above: Order Comment: Speci men Type: BLOOD SPECIMENOrdering Facility: [facility] Address: [address] [place] [address] Performed By: #### 2 4321-2 ####[facility]ORATORYCLIA [id number] [place] [address] [place] Chloride [Moles/Vol] 110 mmol/L High 98-107 [facility] Comment on above: Order Comment: Speci men Type: BLOOD SPECIMENOrdering Facility: [facility] Address: [address] [place] [address] Performed By: #### 2 4321-2 ####[facility]ATORYCLIA [id number] [place] [address] [place] CO2 [Moles/Vol] 23 mmol/L Normal 21-32 [facility] Comment on above: Order Comment: Speci men Type: BLOOD SPECIMENOrdering Facility: [facility] Address: [address] [place] [address] Performed By: #### 2 4321-2 ####[facility]ORATORYCLIA [id number] [place] [address] [place] Creatinine [Mass/Vol] 0.47 mg/dL Low 0.51-0.95 [facility] Comment on above: Order Comment: Speci men Type: BLOOD SPECIMENOrdering Facility: [facility] Address: [address] [id number] Result Comment: Marilin ents receiving either N-Acetylcysteine (NAC) or Metamizole prior to venipuncture, may have falsely depressed results. Performed By: #### 2 4321-2 ####[facility]ATORYCLIA [id number] [place] [address] [place] Creatinine and Glomerular filtration rate.predicted panel (S/P/Bld) 118 mL/min/1.73m??? Normal >=60 [facility] Comment on above: Order Comment: Speci men Type: BLOOD SPECIMENOrdering Facility: [facility] Address: [address] [place] [address] Result Comment: Chrissy mated Glomerular Filtration Rate [...] actual GFR. Performed By: #### 2 4321-2 ####[facility]ATORYCLIA [id number] [place] [address] [place] Glucose [Mass/Vol] 101 mg/dL High 70-100 [facility] Comment on above: Order Comment: Syd ramos Type: BLOOD SPECIMENOrdering Facility: [facility] Address: [address] [id number] Result Comment: The [place] [employer] (ADA) provides guidance for cutoff [...] Standards of Medical Care in Diabetes 2016, [place] [employer]. Diabetes Care. 2016.39(Suppl 1).Results may be falsely elevated after the administration of Sulfapyridine.Results may be falsely depressed after the administration of Sulfasalazine. Performed By: #### 2 4321-2 ####[facility]ORATORYCLIA [id number] [place] [address] [place] Potassium [Moles/Vol] 3.7 mmol/L Normal 3.5-5.1 [facility] Comment on above: Order Comment: Speci men Type: BLOOD SPECIMENOrdering Facility: [facility] Address: [address] [place] [address] Performed By: #### 2 4321-2 ####[facility]ATORYCLIA [id number] [address] [place] Sodium [Moles/Vol] 142 mmol/L Normal 136-145 [facility] Comment on above: Order Comment: Speci men Type: BLOOD SPECIMENOrdering Facility: [facility] Address: [address] [place] [address] Performed By: #### 2 4321-2 ####[facility]ATORYCLIA [id number] [place] [address] [place] Urea nitrogen [Mass/Vol] 8 mg/dL Normal 7-26 [facility] Comment on above: Order Comment: Speci men Type: BLOOD SPECIMENOrdering Facility: [facility] Address: [address] [place] [address] Performed By: #### 2 4321-2 ####[facility]ORATORYCLIA [id number] [place] [id number] [place] CBC panel Auto (Bld)on 12-06 Erythrocyte distribution width (RBC) [Ratio] 13.2 % Normal 11.5-15.0 [facility] Comment on above: Order Comment: Speci men Type: BLOOD SPECIMENOrdering Facility: [facility] Address: [address] [place] [address] Performed By: #### 5 8410-2 ####[facility]ATORYCLIA [id number] [address] [place] Hematocrit (Bld) [Volume fraction] 44.2 % Normal 36.0-46.0 [facility] Comment on above: Order Comment: Speci men Type: BLOOD SPECIMENOrdering Facility: [facility] Address: [address] [place] [address] Performed By: #### 5 8410-2 ####[facility]ATORYCLIA [id number] [place] [address] [place] Hemoglobin (Bld) [Mass/Vol] 15.4 g/dL Normal 11.5-15.5 [facility] Comment on above: Order Comment: Speci men Type: BLOOD SPECIMENOrdering Facility: [facility] Address: [address] [place] [address] Performed By: #### 5 8410-2 ####[facility]ATORYCLIA [id number] [address] [place] MCH (RBC) [Entitic mass] 32.5 pg Normal 26.0-34.0 [facility] Comment on above: Order Comment: Speci men Type: BLOOD SPECIMENOrdering Facility: [facility] Address: [address] [place] [address] Performed By: #### 5 8410-2 ####[facility]ATORYCLIA [id number] [address] [place] MCHC (RBC) [Mass/Vol] 34.8 g/dL Normal 30.5-36.0 [facility] Comment on above: Order Comment: Speci men Type: BLOOD SPECIMENOrdering Facility: [facility] Address: [address] [place], [place] [address] Performed By: #### 5 8410-2 ####[facility]ATORYCLIA [id number] [address] [place] MCV (RBC) [Entitic vol] 93.2 fL Normal 80.0-100.0 [facility] Comment on above: Order Comment: Speci men Type: BLOOD SPECIMENOrdering Facility: [facility] Address: [address] [place] [address] Performed By: #### 5 8410-2 ####[facility]ATORYCLIA [id number] [place] [id number] [place] Nucleated RBC (Bld) [#/Vol] 10*3/uL Normal <0.01 [facility] Comment on above: Order Comment: Speci men Type: BLOOD SPECIMENOrdering Facility: [facility] Address: [address] [place] [address] Performed By: #### 5 8410-2 ####[facility]ATORYCLIA [id number] [place] [address] [place] Platelet mean volume (Bld) [Entitic vol] 9.8 fL Normal 9.0-12.7 [facility] Comment on above: Order Comment: Speci men Type: BLOOD SPECIMENOrdering Facility: [facility] Address: [address] [place] [address] Performed By: #### 5 8410-2 ####[facility]ATORYCLIA [id number] [address] [place] Platelets (Bld) [#/Vol] 133 10*3/uL Low 150-400 [facility] Comment on above: Order Comment: Speci men Type: BLOOD SPECIMENOrdering Facility: [facility] Address: [address] [place] [address] Result Comment: Micr otainer sample. No clot detected. Performed By: #### 5 8410-2 ####[facility]ORATORYCLIA [id number] [place] [address] [place] RBC (Bld) [#/Vol] 4.74 10*6/uL Normal 3.90-5.20 [facility] Comment on above: Order Comment: Speci men Type: BLOOD SPECIMENOrdering Facility: [facility] Address: [address] [place] [address] Performed By: #### 5 8410-2 ####[facility]ATORYCLIA [id number] [place] [address] [place] WBC (Bld) [#/Vol] 7.18 10*3/uL Normal 3.70-11.00 [facility] Comment on above: Order Comment: Speci men Type: BLOOD SPECIMENOrdering Facility: [facility] Address: [address] [place] [address] Performed By: #### 5 8410-2 ####[facility]ATORYCLIA [id number] [place] [id number] [facility] [place] THERAPY NTon 12-06-2024 THERAPY NT Normal [facility] THERAPY NT Normal [facility] Basic metabolic 2000 panelon 12-05-2024 Anion gap [Moles/Vol] 9 mmol/L Normal 5-16 [facility] Comment on above: Order Comment: Speci men Type: BLOOD SPECIMENOrdering Facility: [facility] Address: [address] [place] [address] Performed By: #### 2 4321-2 ####[facility]ATORYCLIA [id number] [place] [address] [place] Calcium [Mass/Vol] 9.1 mg/dL Normal 8.5-10.5 [facility] Comment on above: Order Comment: Speci men Type: BLOOD SPECIMENOrdering Facility: [facility] Address: [address] [place] [address] Performed By: #### 2 4321-2 ####[facility]ATORYCLIA [id number] [place] [id number] [place] Chloride [Moles/Vol] 107 mmol/L Normal 98-107 [facility] Comment on above: Order Comment: Speci men Type: BLOOD SPECIMENOrdering Facility: [facility] Address: [address] [place] [address] Performed By: #### 2 4321-2 ####[facility]ATORYCLIA [id number] [place] [id number] [place] CO2 [Moles/Vol] 23 mmol/L Normal 21-32 [facility] Comment on above: Order Comment: Speci men Type: BLOOD SPECIMENOrdering Facility: [facility] Address: [address] [place] [address] Performed By: #### 2 4321-2 ####[facility]ATORYCLIA [id number] [place] [id number] [place] Creatinine [Mass/Vol] 0.56 mg/dL Normal 0.51-0.95 [facility] Comment on above: Order Comment: Syd ramos Type: BLOOD SPECIMENOrdering Facility: [facility] Address: [address] [place] [address] Result Comment: Marilin ents receiving either N-Acetylcysteine (NAC) or Metamizole prior to venipuncture, may have falsely depressed results. Performed By: #### 2 4321-2 ####[facility]ATORYCLIA [id number] [address] Creatinine and Glomerular filtration rate.predicted panel (S/P/Bld) 113 mL/min/1.73m??? Normal >=60 [facility] Comment on above: Order Comment: Syd ramos Type: BLOOD SPECIMENOrdering Facility: [facility] Address: [address] [place] [address] Result Comment: Chrissy mated Glomerular Filtration Rate [...] actual GFR. Performed By: #### 2 4321-2 ####[facility]ATORYCLIA [id number] [place] [address] [place] Glucose [Mass/Vol] 114 mg/dL High 70-100 [facility] Comment on above: Order Comment: Syd ramos Type: BLOOD SPECIMENOrdering Facility: [facility] Address: [address] [place] [address] Result Comment: The [place] Diabetes Association (ADA) provides guidance for cutoff [...] Standards of Medical Care in Diabetes 2016, [place] [employer]. Diabetes Care. 2016.39(Suppl 1).Results may be falsely elevated after the administration of Sulfapyridine.Results may be falsely depressed after the administration of Sulfasalazine. Performed By: #### 2 4321-2 ####[facility]ATORYCLIA [id number] [place] [address] [place] Potassium [Moles/Vol] 3.9 mmol/L Normal 3.5-5.1 [facility] Comment on above: Order Comment: Syd ramos Type: BLOOD SPECIMENOrdering Facility: [facility] Address: [address] [place] [address] Performed By: #### 2 4321-2 ####[facility]ATORYCLIA [id number] [place] [address] [place] Sodium [Moles/Vol] 139 mmol/L Normal 136-145 [facility] Comment on above: Order Comment: Syd ramos Type: BLOOD SPECIMENOrdering Facility: [facility] Address: [address] [place] [address] Performed By: #### 2 4321-2 ####[facility]ATORYCLIA [id number] [place] [address] [place] Urea nitrogen [Mass/Vol] 8 mg/dL Normal 7-26 [facility] Comment on above: Order Comment: Syd ramos Type: BLOOD SPECIMENOrdering Facility: [facility] Address: [address] [place] [address] Performed By: #### 2 4321-2 ####[facility]ATORYCLIA [id number] [address] [place] CASE MANAGEMon 12-05-2024 CASE MANAGEM Normal [facility] CBC panel Auto (Bld)on 12-05 Erythrocyte distribution width (RBC) [Ratio] 13.4 % Normal 11.5-15.0 [facility] Comment on above: Order Comment: Speci men Type: BLOOD SPECIMENOrdering Facility: [facility] Address: [address] [place] [address] Performed By: #### 5 8410-2 ####[facility]ATORYCLIA [id number] [address] [place] Hematocrit (Bld) [Volume fraction] 43.1 % Normal 36.0-46.0 [facility] Comment on above: Order Comment: Speci men Type: BLOOD SPECIMENOrdering Facility: [facility] Address: [address] [place] [address] Performed By: #### 5 8410-2 ####[facility]ORYCLIA [id number] [address] [place] Hemoglobin (Bld) [Mass/Vol] 14.6 g/dL Normal 11.5-15.5 [facility] Comment on above: Order Comment: Speci men Type: BLOOD SPECIMENOrdering Facility: [facility] Address: [address] [place] [address] Performed By: #### 5 8410-2 ####[facility]ATORYCLIA [id number] [place] [address] [place] MCH (RBC) [Entitic mass] 32.1 pg Normal 26.0-34.0 [facility] Comment on above: Order Comment: Speci men Type: BLOOD SPECIMENOrdering Facility: [facility] Address: [address] [place] [address] Performed By: #### 5 8410-2 ####[facility]ATORYCLIA [id number] [place] [id number] [place] MCHC (RBC) [Mass/Vol] 33.9 g/dL Normal 30.5-36.0 [facility] Comment on above: Order Comment: Speci men Type: BLOOD SPECIMENOrdering Facility: [facility] Address: [address] [place] [address] Performed By: #### 5 8410-2 ####[facility]ATORYCLIA [id number] [place] [id number] [facility] MCV (RBC) [Entitic vol] 94.7 fL Normal 80.0-100.0 [facility] Comment on above: Order Comment: Speci men Type: BLOOD SPECIMENOrdering Facility: [facility] Address: [address] [place] [address] Performed By: #### 5 8410-2 ####[facility]ATORYCLIA [id number] [address] Nucleated RBC (Bld) [#/Vol] 10*3/uL Normal <0.01 [facility] Comment on above: Order Comment: Speci men Type: BLOOD SPECIMENOrdering Facility: [facility] Address: [address] [place] [address] Performed By: #### 5 8410-2 ####[facility]ATORYCLIA [id number] [address] [place] Platelet mean volume (Bld) [Entitic vol] 8.8 fL Low 9.0-12.7 [facility] Comment on above: Order Comment: Speci men Type: BLOOD SPECIMENOrdering Facility: [facility] Address: [address] [place] [address] Performed By: #### 5 8410-2 ####[facility]ATORYCLIA [id number] [address] [place] Platelets (Bld) [#/Vol] 129 10*3/uL Low 150-400 [facility] Comment on above: Order Comment: Speci men Type: BLOOD SPECIMENOrdering Facility: [facility] Address: [address] [place] [address] Result Comment: No c lot detected. Performed By: #### 5 8410-2 ####[facility]ATORYCLIA [id number] [place] [id number] [place] RBC (Bld) [#/Vol] 4.55 10*6/uL Normal 3.90-5.20 [facility] Comment on above: Order Comment: Speci men Type: BLOOD SPECIMENOrdering Facility: [facility] Address: [address] [place], [place] [address] Performed By: #### 5 8410-2 ####[facility]ATORYCLIA [id number] [place] [id number] [place] WBC (Bld) [#/Vol] 5.71 10*3/uL Normal 3.70-11.00 [facility] Comment on above: Order Comment: Speci men Type: BLOOD SPECIMENOrdering Facility: [facility] Address: [address] [place] [address] Performed By: #### 5 8410-2 ####[facility]ATORYCLIA [id number] [place] [id number] [facility] [place] ALLIED HEALTHon 12-04-2024 [facility] Bacteria Throat Culton 12-04 Bacteria identified Cx Nom (Throat) CULTURE, THROAT: No Beta hemolytic streptococci isolated. [facility] Comment on above: Performed By: #### 6 26-2 ####[facility]ATORYCLIA [id number] [place] [id number] [facility] [place] CASE MGT INIT ASSon [address] [facility] CBC panel Auto (Bld)on 12-04 Erythrocyte distribution width (RBC) [Ratio] 13.8 % Normal 11.5-15.0 [facility] Comment on above: Order Comment: Speci men Type: BLOOD SPECIMENOrdering Facility: [facility] Address: [address] [place], [place] [address] Performed By: #### 5 8410-2 ####[facility]ATORYCLIA [id number] [place] [id number] [place] Hematocrit (Bld) [Volume fraction] 46.1 % High 36.0-46.0 [facility] Comment on above: Order Comment: Speci men Type: BLOOD SPECIMENOrdering Facility: [facility] Address: [address] [place] [address] Performed By: #### 5 8410-2 ####[facility]ATORYCLIA [id number] [place] [address] [place] Hemoglobin (Bld) [Mass/Vol] 15.6 g/dL High 11.5-15.5 [facility] Comment on above: Order Comment: Speci men Type: BLOOD SPECIMENOrdering Facility: [facility] Address: [address] [place] [address] Performed By: #### 5 8410-2 ####[facility]ATORYCLIA [id number] [place] [address] [place] MCH (RBC) [Entitic mass] 32.0 pg Normal 26.0-34.0 [facility] Comment on above: Order Comment: Speci men Type: BLOOD SPECIMENOrdering Facility: [facility] Address: [address] [place] [address] Performed By: #### 5 8410-2 ####[facility]ATORYCLIA [id number] [address] [place] MCHC (RBC) [Mass/Vol] 33.8 g/dL Normal 30.5-36.0 [facility] Comment on above: Order Comment: Speci men Type: BLOOD SPECIMENOrdering Facility: [facility] Address: [address] [place] [address] Performed By: #### 5 8410-2 ####[facility]ATORYCLIA [id number] [address] [place] MCV (RBC) [Entitic vol] 94.5 fL Normal 80.0-100.0 [facility] Comment on above: Order Comment: Speci men Type: BLOOD SPECIMENOrdering Facility: [facility] Address: [address] [place] [address] Performed By: #### 5 8410-2 ####[facility]ATORYCLIA [id number] [place] [address] [place] Nucleated RBC (Bld) [#/Vol] 10*3/uL Normal <0.01 [facility] Comment on above: Order Comment: Speci men Type: BLOOD SPECIMENOrdering Facility: [facility] Address: [address] [place] [address] Performed By: #### 5 8410-2 ####[facility]ATORYCLIA [id number] [place] [id number] [place] Platelet mean volume (Bld) [Entitic vol] 9.2 fL Normal 9.0-12.7 [facility] Comment on above: Order Comment: Speci men Type: BLOOD SPECIMENOrdering Facility: [facility] Address: [address] [place] [address] Performed By: #### 5 8410-2 ####[facility]ATORYCLIA [id number] [place] [address] [place] Platelets (Bld) [#/Vol] 123 10*3/uL Low 150-400 [facility] Comment on above: Order Comment: Speci men Type: BLOOD SPECIMENOrdering Facility: [facility] Address: [address] [place] [address] Performed By: #### 5 8410-2 ####[facility]ATORYCLIA [id number] [place] [address] [place] RBC (Bld) [#/Vol] 4.88 10*6/uL Normal 3.90-5.20 [facility] Comment on above: Order Comment: Speci men Type: BLOOD SPECIMENOrdering Facility: [facility] Address: [address] [place] [address] Performed By: #### 5 8410-2 ####[facility]ORATORYCLIA [id number] [place] [address] [place] WBC (Bld) [#/Vol] 5.52 10*3/uL Normal 3.70-11.00 [facility] Comment on above: Order Comment: Speci men Type: BLOOD SPECIMENOrdering Facility: [facility] Address: [address] [place], [place] [address] Performed By: #### 5 8410-2 ####[facility]ATORYCLIA [id number] [place] [id number] [place] CONSULTon 12-04-2024 CONSULT Normal [facility] CRP SerPl-mCncon 12-04-2024 CRP [Mass/Vol] mg/L Normal <1.0 [facility] Comment on above: Order Comment: Speci men Type: BLOOD SPECIMENOrdering Facility: [facility] Address: [address] [place] [address] Performed By: #### 1 988-5 ####[facility]ATORYCLIA [id number] [address] [place] CT BRAIN WO IVCONon 12-05-19 CT BRAIN WO IVCON Normal [facility] CT NECK SOFT TISSUE W IVCONo n 12-04-2024 CT NECK SOFT TISSUE W IVCON Normal [facility] Comprehensive metabolic 2000 panelon 12-04-2024 Albumin [Mass/Vol] 3.2 g/dL Normal 3.2-5.0 [facility] Comment on above: Order Comment: Speci men Type: BLOOD SPECIMENOrdering Facility: [facility] Address: [address] [place] [address] Performed By: #### 2 4323-8, 35170-0 ####[facility]ATORYCLIA [id number] [place] [address] [place] ALP [Catalytic activity/Vol] 67 U/L Normal 45-117 [facility] Comment on above: Order Comment: Speci men Type: BLOOD SPECIMENOrdering Facility: [facility] Address: [address] [place] [address] Performed By: #### 2 4323-8, 83584-3 ####[facility]ORATORYCLIA [id number] [place] [id number] [place] ALT [Catalytic activity/Vol] 22 U/L Normal 13-61 [facility] Comment on above: Order Comment: Speci men Type: BLOOD SPECIMENOrdering Facility: [facility] Address: [address] [place] [address] Result Comment: Resu lts may be falsely depressed after the administration of Sulfasalazine and/or Sulfapyridine. Performed By: #### 2 4323-8, ####[facility]ATORYCLIA [id number] [place] [id number] [place] Anion gap [Moles/Vol] 10 mmol/L Normal 5-16 [facility] Comment on above: Order Comment: Speci men Type: BLOOD SPECIMENOrdering Facility: [facility] Address: [address] [place] [address] Performed By: #### 2 4323-8, ####[facility]ATORYCLIA [id number] [place] [id number] [place] AST [Catalytic activity/Vol] 23 U/L Normal 8-34 [facility] Comment on above: Order Comment: Speci men Type: BLOOD SPECIMENOrdering Facility: [facility] Address: [address] [place] [address] Result Comment: Resu lts may be falsely depressed after the administration of Sulfasalazine and/or Sulfapyridine. Performed By: #### 2 4323-8, ####[facility]ATORYCLIA [id number] [place] [id number] [place] Bilirubin [Mass/Vol] 0.6 mg/dL Normal 0.2-1.0 [facility] Comment on above: Order Comment: Speci men Type: BLOOD SPECIMENOrdering Facility: [facility] Address: [address] [place] [address] Performed By: #### 2 4323-8, ####[facility]ATORYCLIA [id number] [place] [id number] [place] Calcium [Mass/Vol] 9.5 mg/dL Normal 8.5-10.5 [facility] Comment on above: Order Comment: Speci men Type: BLOOD SPECIMENOrdering Facility: [facility] Address: [address] [place] [address] Performed By: #### 2 4323-8, ####[facility]ATORYCLIA [id number] [place] [id number] [place] Chloride [Moles/Vol] 109 mmol/L High 98-107 [facility] Comment on above: Order Comment: Speci men Type: BLOOD SPECIMENOrdering Facility: [facility] Address: [address] [place] [address] Performed By: #### 2 4323-8, ####[facility]ORATORYCLIA [id number] [place] [id number] [place] CO2 [Moles/Vol] 24 mmol/L Normal 21-32 [facility] Comment on above: Order Comment: Speci men Type: BLOOD SPECIMENOrdering Facility: [facility] Address: [address] [place] [address] Performed By: #### 2 4323-8, ####[facility]ATORYCLIA [id number] [place] [id number] [place] Creatinine [Mass/Vol] 0.63 mg/dL Normal 0.51-0.95 [facility] Comment on above: Order Comment: Speci men Type: BLOOD SPECIMENOrdering Facility: [facility] Address: [address] [place] [address] Result Comment: Marilin ents receiving either N-Acetylcysteine (NAC) or Metamizole prior to venipuncture, may have falsely depressed results. Performed By: #### 2 4323-8, ####[facility]ATORYCLIA [id number] [place] [address] [place] Creatinine and Glomerular filtration rate.predicted panel (S/P/Bld) 110 mL/min/1.73m??? Normal >=60 [facility] Comment on above: Order Comment: Speci men Type: BLOOD SPECIMENOrdering Facility: [facility] Address: [address] [place] [address] Result Comment: Chrissy mated Glomerular Filtration Rate [...] actual GFR. Performed By: #### 2 4323-8, 89345-5 ####[facility]ATORYCLIA [id number] [place] [id number] [place] Glucose [Mass/Vol] 89 mg/dL Normal 70-100 [facility] Comment on above: Order Comment: Syd ramos Type: BLOOD SPECIMENOrdering Facility: [facility] Address: [address] [place] [address] Result Comment: The [place] [employer] Association (ADA) provides guidance for cutoff [...] Standards of Medical Care in Diabetes 2016, [place] [employer]. Diabetes Care. 2016.39(Suppl 1).Results may be falsely elevated after the administration of Sulfapyridine.Results may be falsely depressed after the administration of Sulfasalazine. Performed By: #### 2 4323-8, ####[facility]ATORYCLIA [id number] [place] [address] [place] Potassium [Moles/Vol] 3.9 mmol/L Normal 3.5-5.1 [facility] Comment on above: Order Comment: Syd ramos Type: BLOOD SPECIMENOrdering Facility: [facility] Address: [address] [place] [id number] Performed By: #### 2 4323-8, ####[facility]ATORYCLIA [id number] [place] [address] [place] Protein [Mass/Vol] 6.8 g/dL Normal 6.0-8.5 [facility] Comment on above: Order Comment: Speci men Type: BLOOD SPECIMENOrdering Facility: [facility] Address: [address] [place] [address] Performed By: #### 2 4323-8, 94505-1 ####[facility]ORATORYCLIA [id number] [place] [address] [place] Sodium [Moles/Vol] 143 mmol/L Normal 136-145 [facility] Comment on above: Order Comment: Speci men Type: BLOOD SPECIMENOrdering Facility: [facility] Address: [address] [place] [address] Performed By: #### 2 4323-8, 18879-1 ####[facility]ATORYCLIA [id number] [place] [address] [place] Urea nitrogen [Mass/Vol] 9 mg/dL Normal 7- [facility] Comment on above: Order Comment: Speci men Type: BLOOD SPECIMENOrdering Facility: [facility] Address: [address] [place] [address] Performed By: #### 2 4323-8, 57119-7 ####[facility]ORATORYCLIA [id number] [place] [address] [place] ED NOTEon 12-04-2024 ED NOTE Normal [facility] ED PROV NOTEon 12-04-2024 ED PROV NOTE Normal [facility] ED PROV NOTE Normal [facility] ESR Westergren method (Bld) [Velocity]on 12-04-2024 ESR (Bld) [Velocity] 2 mm/h Normal 0-20 [facility] Comment on above: Order Comment: Speci men Type: BLOOD SPECIMENOrdering Facility: [facility] Address: [address] [place] [address] Performed By: #### 4 537-7 ####[facility]ATORYCLIA [id number] [address] [place] HISTORY PHYSICALon HISTORY PHYSICAL Normal [facility] Magnesium SerPl-mCncon 12-04 Magnesium [Mass/Vol] 1.9 mg/dL Normal 1.6-2.6 [facility] Comment on above: Order Comment: Speci men Type: BLOOD SPECIMENOrdering Facility: [facility] Address: [address] [place] [address] Performed By: #### 2 4323-8, 30445-7 ####[facility]ATORYCLIA [id number] [address] [place] NURSING PROGon 12-04-2024 NURSING PROG Normal [facility] Procalcitonin SerPl-mCncon 0 12-04-2024 Procalcitonin [Mass/Vol] 0.04 ng/mL Normal 0.00-0.50 [facility] Comment on above: Order Comment: Speci men Type: BLOOD SPECIMENOrdering Facility: [facility] Address: [address] [place] [address] Result Comment: PCT Concentration InterpretationPCT <=0.1 ng/mL:Normal [...] shock. Performed By: #### 3 3959-8, 4086-5 ####[facility]ATORYCLIA [id number] [place] [address] [place] S pyo DNA Throat Ql MACIE+prob shirlene 12-04-2024 S. pyogenes DNA MACIE+probe Ql (Throat) Not detected Normal Not detected [facility] Comment on above: Order Comment: Speci men Type: SWABOrdering Facility: [facility] Address: [address] [place] [address] Performed By: #### 6 0489-2 ####[facility]ORATORYCLIA [id number] [place] [address] [place] SEPSIS LACTATEon 12-04-2024 Lactate [Moles/Vol] 1.8 mmol/L Normal 0.4-2.0 [facility] Comment on above: Order Comment: Speci men Type: BLOOD SPECIMENOrdering Facility: [facility] Address: [address] [place] [address] Performed By: #### S LACT ####[facility]ORATORYCLIA [id number] [address] [place] Valproate SerPl-mCncon 12-04 Valproate [Mass/Vol] 38.3 ug/mL Low 50.0-100.0 [facility] Comment on above: Order Comment: Speci men Type: BLOOD SPECIMENOrdering Facility: [facility] Address: [address] [place] [address] Result Comment: Refe rence ranges and high/low indicator flags are provided as general guidelines only. The treating physician must determine appropriate target levels/dosing based on the specific clinical situation. Performed By: #### 3 3959-8, 4086-5 ####[facility]ORATORYCLIA [id number] [address] OF [facility] .Auto Diffon 12-03-2024 Basophil, Absolute 0.0 10 3/mcL Normal 0.0-0.3 [facility] Comment on above: Performed By: #### A DIFF, CBC, ANEU, GFR, CMP, MORPH, LIP, MDW ####Dilshad Bzlkesewp[address] [place], [place] [address] Basophils/100 WBC (Bld) 0.5 % Normal 0.0-2.5 [facility] Comment on above: Performed By: #### A DIFF, CBC, ANEU, GFR, CMP, MORPH, LIP, MDW ####Dilshad Dmvtzykfl2755 [place], [place] [address] Eosinophil, Absolute 0.1 10 3/mcL Normal 0.0-0.7 [facility] Comment on above: Performed By: #### A DIFF, CBC, ANEU, GFR, CMP, MORPH, LIP, MDW ####Dilshad Kxrqqryrk[address] [place], [place] [address] Eosinophils/100 WBC (Bld) 1.8 % Normal 0.0-6.0 [facility] Comment on above: Performed By: #### A DIFF, CBC, ANEU, GFR, CMP, MORPH, LIP, MDW ####Dilshad Licgahtha[address] [place], [place] [address] Lymphocyte, Absolute 2.1 10 3/mcL Normal 0.9-4.3 [facility] Comment on above: Performed By: #### A DIFF, CBC, ANEU, GFR, CMP, MORPH, LIP, MDW ####Dilshad Buphfearv7372 [place], [place] [address] Lymphocytes/100 WBC (Bld) 32.0 % Normal 20.0-40.0 [facility] Comment on above: Performed By: #### A DIFF, CBC, ANEU, GFR, CMP, MORPH, LIP, MDW ####Dilshad Yixdkhtfx2567 [place], [place] [address] Monocyte, Absolute 1.8 10 3/mcL High 0.1-1.4 [facility] Comment on above: Performed By: #### A DIFF, CBC, ANEU, GFR, CMP, MORPH, LIP, MDW ####Dilshad Becsvelvy4278 [place], [place] [address] Monocytes/100 WBC (Bld) 27.1 % High 2.0-13.0 [facility] Comment on above: Performed By: #### A DIFF, CBC, ANEU, GFR, CMP, MORPH, LIP, MDW ####Dilshad Kyhiwupde2766 [place], [place] [address] Neutrophils/100 WBC (Bld) 38.6 % Low 50.0-75.0 [facility]ILSH[facility] MASSILLON Comment on above: Performed By: #### A DIFF, CBC, ANEU, GFR, CMP, MORPH, LIP, MDW ####Dilshad Nsqyzuulh8120 [place], [place] [address] .GFRon 12-03-2024 Estimated Glomerular Filtration Rate 108 ml/min/1.73sqm Normal [facility]SHCA [facility] Comment on above: Result Comment: Stages of [...] ANEU, GFR, CMP, MORPH, LIP, MDW ####Dilshad Ltrvffcsm6467 [place] [address] .MDWon 12-03-2024 Monocyte Distribution Width 19.08 Normal 0.00-20.00 DILSHAD [facility]LL[facility] Comment on above: Result Comment: For ED adult patients suspected of sepsis, MDW<=20.0 does not rule out sepsis or risk of sepsis Performed By: #### A DIFF, CBC, ANEU, GFR, CMP, MORPH, LIP, MDW ####Dilshad Gbvwftfzq[address] [place] [address] .Morphon 12-03-2024 Platelet Estimate Slt Decreased Normal [facility] Comment on above: Performed By: #### A DIFF, CBC, ANEU, GFR, CMP, MORPH, LIP, MDW ####Dilshad Tssvkwllg9270 [place] [address] .NEUABSon 12-03-2024 Neutrophil, Absolute 2.5 10 3/mcL Normal 2.3-8.1 [facility] Comment on above: Performed By: #### A DIFF, CBC, ANEU, GFR, CMP, MORPH, LIP, MDW ####Dilshad Wxasizeuv4584 [place] [address] CBCon 12-03-2024 Erythrocyte distribution width (RBC) [Ratio] 14.6 % Normal 11.5-15.5 DILSHAD MASSILLON Comment on above: Performed By: #### A DIFF, CBC, ANEU, GFR, CMP, MORPH, LIP, EDD ####Dilshad Slzohotqe1356 [place] [phone] Hematocrit (Bld) [Volume fraction] 46.5 % High 34.0-46.0 DILSHAD MASSILLON Comment on above: Performed By: #### A DIFF, CBC, ANEU, GFR, CMP, MORPH, LIP, MDW ####Dilshad Njjnowsza8375 [place] [phone] Hgb 15.4 G/dL Normal 12.0-16.0 DILSHAD MASSILLON Comment on above: Performed By: #### A DIFF, CBC, ANEU, GFR, CMP, MORPH, LIP, W ####Dilshad Ben[address] [place] [phone] MCH (RBC) [Entitic mass] 31.8 pg Normal 27.0-33.0 [facility]ILSHAD [facility] Comment on above: Performed By: #### A DIFF, CBC, ANEU, GFR, CMP, MORPH, LIP, EDD ####Dilshad Ben[address] [place] [phone] MCHC 33.2 G/dL Normal 32.0-36.0 [facility] Comment on above: Performed By: #### A DIFF, CBC, ANEU, GFR, CMP, MORPH, LIP, EDD ####Dilshad JohnsonMicewvshr4092 [place] [phone] MCV (RBC) [Entitic vol] 95.8 fL Normal 80.0-99.0 [facility]SH[facility] Comment on above: Performed By: #### A DIFF, CBC, ANEU, GFR, CMP, MORPH, LIP, W ####Dilshad Httlttfim7837 [place] [phone] Platelet 123 10 3/mcL Low 150-450 [facility] Comment on above: Performed By: #### A DIFF, CBC, ANEU, GFR, CMP, MORPH, LIP, W ####Dilshad Ben[address] [place], [place] [address] Platelet mean volume (Bld) [Entitic vol] 7.2 fL Normal 6.6-10.5 [facility] Comment on above: Performed By: #### A DIFF, CBC, ANEU, GFR, CMP, MORPH, LIP, MDW ####Dilshad Ben20[address] [place] [address] RBC 4.85 10 6/mcL Normal 4.10-5.30 [facility] Comment on above: Performed By: #### A DIFF, CBC, ANEU, GFR, CMP, MORPH, LIP, MDW ####Dilshad JohnsonMoezsrzyq4424 [place] [address] WBC 6.5 10 3/mcL Normal 4.5-10.8 [facility] Comment on above: Performed By: #### A DIFF, CBC, ANEU, GFR, CMP, MORPH, LIP, MDW ####Dilshad Ben[address] [place] [address] CBC W Auto Differential pane l (Bld)on 12-03-2024 Basophils (Bld) [#/Vol] 0.06 10*3/uL Normal <0.11 [facility] Comment on above: Order Comment: Speci men Type: BLOOD SPECIMENOrdering Facility: [facility] Address: [address] [place] [address] Performed By: #### 5 7021-8 ####[facility]ATORYCLIA [id number] [place] [address] [place] Basophils/100 WBC (Bld) 0.8 % Normal [facility] Comment on above: Order Comment: Speci men Type: BLOOD SPECIMENOrdering Facility: [facility] Address: [address] [place] [address] Performed By: #### 5 7021-8 ####[facility]ATORYCLIA [id number] [place] [address] [place] Differential cell count method Nom (Bld) Auto Normal [facility] Comment on above: Order Comment: Speci men Type: BLOOD SPECIMENOrdering Facility: [facility] Address: [address] [place] [address] Performed By: #### 5 7021-8 ####[facility]ATORYCLIA [id number] [place] [id number] [place] Eosinophils (Bld) [#/Vol] 0.06 10*3/uL Normal <0.46 [facility] Comment on above: Order Comment: Speci men Type: BLOOD SPECIMENOrdering Facility: [facility] Address: [address] [place] [address] Performed By: #### 5 7021-8 ####[facility]ATORYCLIA [id number] [address] [place] Eosinophils/100 WBC (Bld) 0.8 % Normal [facility] Comment on above: Order Comment: Speci men Type: BLOOD SPECIMENOrdering Facility: [facility] Address: [address] [place] [address] Performed By: #### 5 7021-8 ####[facility]ATORYCLIA [id number] [address] [place] Erythrocyte distribution width (RBC) [Ratio] 13.8 % Normal 11.5-15.0 [facility] Comment on above: Order Comment: Speci men Type: BLOOD SPECIMENOrdering Facility: [facility] Address: [address] [place] [address] Performed By: #### 5 7021-8 ####[facility]ORATORYCLIA [id number] [place] [id number] [facility] [place] Hematocrit (Bld) [Volume fraction] 49.4 % High 36.0-46.0 [facility] Comment on above: Order Comment: Speci men Type: BLOOD SPECIMENOrdering Facility: [facility] Address: [address] [place] [address] Performed By: #### 5 7021-8 ####[facility]ATORYCLIA [id number] [place] [id number] [place] Hemoglobin (Bld) [Mass/Vol] 16.5 g/dL High 11.5-15.5 [facility] Comment on above: Order Comment: Speci men Type: BLOOD SPECIMENOrdering Facility: [facility] Address: [address] [place] [address] Performed By: #### 5 7021-8 ####[facility]ATORYCLIA [id number] [place] [address] [place] Immature granulocytes (Bld) [#/Vol] 0.05 10*3/uL Normal <0.10 [facility] Comment on above: Order Comment: Speci men Type: BLOOD SPECIMENOrdering Facility: [facility] Address: [address] [place] [address] Performed By: #### 5 7021-8 ####[facility]ATORYCLIA [id number] [address] [place] Immature granulocytes/100 WBC (Bld) 0.7 % Normal [facility] Comment on above: Order Comment: Speci men Type: BLOOD SPECIMENOrdering Facility: [facility] Address: [address] [place] [address] Performed By: #### 5 7021-8 ####[facility]ATORYCLIA [id number] [place] [address] [place] Lymphocytes (Bld) [#/Vol] 2.62 10*3/uL Normal 1.00-4.00 [facility] Comment on above: Order Comment: Speci men Type: BLOOD SPECIMENOrdering Facility: [facility] Address: [address] [place] [address] Performed By: #### 5 7021-8 ####[facility]ATORYCLIA [id number] [place] [address] [place] Lymphocytes/100 WBC (Bld) 36.4 % Normal [facility] Comment on above: Order Comment: Speci men Type: BLOOD SPECIMENOrdering Facility: [facility] Address: [address] [place] [address] Performed By: #### 5 7021-8 ####[facility]ATORYCLIA [id number] [place] [address] [place] MCH (RBC) [Entitic mass] 32.1 pg Normal 26.0-34.0 [facility] Comment on above: Order Comment: Speci men Type: BLOOD SPECIMENOrdering Facility: [facility] Address: [address] [place] [address] Performed By: #### 5 7021-8 ####[facility]ATORYCLIA [id number] [address] [place] MCHC (RBC) [Mass/Vol] 33.4 g/dL Normal 30.5-36.0 [facility] Comment on above: Order Comment: Speci men Type: BLOOD SPECIMENOrdering Facility: [facility] Address: [address] [place] [address] Performed By: #### 5 7021-8 ####[facility]ATORYCLIA [id number] [address] [place] MCV (RBC) [Entitic vol] 96.1 fL Normal 80.0-100.0 [facility] Comment on above: Order Comment: Speci men Type: BLOOD SPECIMENOrdering Facility: [facility] Address: [address] [place] [address] Performed By: #### 5 7021-8 ####[facility]ATORYCLIA [id number] [address] [place] Monocytes (Bld) [#/Vol] 1.65 10*3/uL High <0.87 [facility] Comment on above: Order Comment: Speci men Type: BLOOD SPECIMENOrdering Facility: [facility] Address: [address] [place] [address] Performed By: #### 5 7021-8 ####[facility]ATORYCLIA [id number] [address] [place] Monocytes/100 WBC (Bld) 22.9 % Normal [facility] Comment on above: Order Comment: Speci men Type: BLOOD SPECIMENOrdering Facility: [facility] Address: [address] [place] [address] Performed By: #### 5 7021-8 ####[facility]ATORYCLIA [id number] [place] [id number] [place] Neutrophils (Bld) [#/Vol] 2.76 10*3/uL Normal 1.45-7.50 [facility] Comment on above: Order Comment: Speci men Type: BLOOD SPECIMENOrdering Facility: [facility] Address: [address] [place] [address] Performed By: #### 5 7021-8 ####[facility]ATORYCLIA [id number] [place] [address] [place] Neutrophils/100 WBC (Bld) 38.4 % Normal [facility] Comment on above: Order Comment: Speci men Type: BLOOD SPECIMENOrdering Facility: [facility] Address: [address] [place] [address] Performed By: #### 5 7021-8 ####[facility]ATORYCLIA [id number] [place] [address] [place] Nucleated RBC (Bld) [#/Vol] 10*3/uL Normal <0.01 [facility] Comment on above: Order Comment: Speci men Type: BLOOD SPECIMENOrdering Facility: [facility] Address: [address] [place] [address] Performed By: #### 5 7021-8 ####[facility]ATORYCLIA [id number] [place] [address] [place] Nucleated RBC/100 WBC (Bld) [Ratio] 0.0 /100 WBC Normal [facility] Comment on above: Order Comment: Speci men Type: BLOOD SPECIMENOrdering Facility: [facility] Address: [address] [place] [address] Performed By: #### 5 7021-8 ####[facility]ATORYCLIA [id number] [place] [address] [place] Platelet mean volume (Bld) [Entitic vol] 9.6 fL Normal 9.0-12.7 [facility] Comment on above: Order Comment: Speci men Type: BLOOD SPECIMENOrdering Facility: [facility] Address: [address] [place] [address] Performed By: #### 5 7021-8 ####[facility]ATORYCLIA [id number] [place] [address] [facility] [place] Platelets (Bld) [#/Vol] 141 10*3/uL Low 150-400 [facility] Comment on above: Order Comment: Speci men Type: BLOOD SPECIMENOrdering Facility: [facility] Address: [address] [place] [address] Result Comment: No c lot detected. Performed By: #### 5 7021-8 ####[facility]ATORYCLIA [id number] [address] [place] RBC (Bld) [#/Vol] 5.14 10*6/uL Normal 3.90-5.20 [facility] Comment on above: Order Comment: Speci men Type: BLOOD SPECIMENOrdering Facility: [facility] Address: [address] [place] [address] Performed By: #### 5 7021-8 ####[facility]ATORYCLIA [id number] [address] WBC (Bld) [#/Vol] 7.20 10*3/uL Normal 3.70-11.00 [facility] Comment on above: Order Comment: Speci men Type: BLOOD SPECIMENOrdering Facility: [facility] Address: [address] [place] [address] Performed By: #### 5 7021-8 ####[facility]ATORYCLIA [id number] [place] [id number] [facility] [place] CMPon 12-03-2024 Albumin Level 3.4 G/dL Low 3.5-5.0 DILSHAD GUAN Comment on above: Performed By: #### A DIFF, CBC, ANEU, GFR, CMP, MORPH, LIP, MDW ####Dilshad Ben[address] [place], [place] [address] Albumin/Globulin [Mass ratio] 0.8 {ratio} Low 1.1-2.5 DILSHAD MASSILLON Comment on above: Performed By: #### A DIFF, CBC, ANEU, GFR, CMP, MORPH, LIP, MDW ####Dilshad Ben[address] [place], [place] [address] ALP [Catalytic activity/Vol] 80 U/L Normal 40-135 DILSHAD MASSILLON Comment on above: Performed By: #### A DIFF, CBC, ANEU, GFR, CMP, MORPH, LIP, MDW ####Dilshadvazquez BeZwvqqkhtw0624 [place], [place] [address] ALT [Catalytic activity/Vol] 31 U/L Normal 14-59 DILSHAD MASSILLON Comment on above: Performed By: #### A DIFF, CBC, ANEU, GFR, CMP, MORPH, LIP, MDW ####Dilshadvazquez BePnjhllkbc67[address] [place] [phone] AST [Catalytic activity/Vol] 25 U/L Normal 10-40 DILSHAD MASSILLON Comment on above: Performed By: #### A DIFF, CBC, ANEU, GFR, CMP, MORPH, LIP, MDW ####Dilshad Ben[address] [place], [place] [address] Bili Total 0.4 mg/dL Normal 0.2-1.0 DILSHAD MASSILLO Comment on above: Result Comment: Use of this assay is not recommended for patients undergoing treatment with eltrombopag due to the potential for falsely elevated results. Performed By: #### A DIFF, CBC, ANEU, GFR, CMP, MORPH, LIP, MDW ####Dilshadvazquez BePvfaarqqy7372 [place], [place] [address] BUN/Creatinine Ratio 21 ratio Normal 7-27 RHIANNON MAN [facility]SILL[facility] Comment on above: Performed By: #### A DIFF, CBC, ANEU, GFR, CMP, MORPH, LIP, MDW ####Dilshadvazquez BeGzsbewhhr4204 [place], [place] [address] Calcium [Mass/Vol] 9.3 mg/dL Normal 8.4-10.2 AULTMA N MASSILLON Comment on above: Performed By: #### A DIFF, CBC, ANEU, GFR, CMP, MORPH, LIP, MDW ####Dilshad JohnsonGpykmdvvp7447 [place], [place] [address] Chloride [Moles/Vol] 104 mmol/L Normal 98-107 RHIANNON MAN [facility] Comment on above: Performed By: #### A DIFF, CBC, ANEU, GFR, CMP, MORPH, LIP, MDW ####Dilshad JohnsonVtslnlzgv8224 [place], [place] [address] CO2 [Moles/Vol] 29 mmol/L Normal 22-29 DILSHAD MASSILLON Comment on above: Performed By: #### A DIFF, CBC, ANEU, GFR, CMP, MORPH, LIP, MDW ####Dilshad Ben[address] [place], [place] [address] Creatinine [Mass/Vol] 0.67 mg/dL Normal 0.51-0.95 AUL TMAN MASSILLON Comment on above: Performed By: #### A DIFF, CBC, ANEU, GFR, CMP, MORPH, LIP, MDW ####Dilshad JohnsonNlalibjaq4910 [place], [place] [address] Electrolyte Balance 7.0 mEq/L Normal 4.0-15.0 AULTM AN MASSILLON Comment on above: Performed By: #### A DIFF, CBC, ANEU, GFR, CMP, MORPH, LIP, MDW ####[address] [place], [place] [address] Globulin 4.0 G/dL Normal 2.7-4.4 DILSHAD MASSILLON Comment on above: Performed By: #### A DIFF, CBC, ANEU, GFR, CMP, MORPH, LIP, MDW ####[address]shad [address] [place], [place] [address] Glucose [Mass/Vol] 124 mg/dL High 70-105 AULTMA N MASSILLON Comment on above: Performed By: #### A DIFF, CBC, ANEU, GFR, CMP, MORPH, LIP, MDW ####Dilshad JohnsonShyiem[address] [place], [place] [address] Potassium [Moles/Vol] 3.7 mmol/L Normal 3.5-5.1 AUL TMAN MASSILLON Comment on above: Performed By: #### A DIFF, CBC, ANEU, GFR, CMP, MORPH, LIP, MDW ####Dilshad JohnsonE[address] [place], [place] [address] Sodium [Moles/Vol] 140 mmol/L Normal 136-145 AULTMA N MASSILLON Comment on above: Performed By: #### A DIFF, CBC, ANEU, GFR, CMP, MORPH, LIP, MDW ####Dilshad [address] [place], [place] [address] Total Protein 7.4 G/dL Normal 6.4-8.2 DILSHAD MASSILLON Comment on above: Performed By: #### A DIFF, CBC, ANEU, GFR, CMP, MORPH, LIP, MDW ####Dilshad JohnsonVhovqxss[address] [place], [place] [address] Urea nitrogen [Mass/Vol] 14 mg/dL Normal 7-18 DILSHAD MASSILLON Comment on above: Performed By: #### A DIFF, CBC, ANEU, GFR, CMP, MORPH, LIP, MDW ####Dilshad JohnsonDqkoxqh[address] [place], [place] [address] Comprehensive metabolic 2000 panelon 12-03-2024 Albumin [Mass/Vol] 3.5 g/dL Normal 3.2-5.0 [facility] Comment on above: Order Comment: Speci men Type: BLOOD SPECIMENOrdering Facility: [facility] Address: [address] [place] [id number] Performed By: #### 2 4323-8, , HSTROP ####[facility] LABORATORYCLIA [id number] [place] [address] [place] ALP [Catalytic activity/Vol] 76 U/L Normal 45-117 [facility] Comment on above: Order Comment: Speci men Type: BLOOD SPECIMENOrdering Facility: [facility] Address: [address] [place] [address] Performed By: #### 2 4323-8, , HSTROP ####[facility]ATORYCLIA [id number] [place] [id number] [place] ALT [Catalytic activity/Vol] 30 U/L Normal 13-61 [facility] Comment on above: Order Comment: Syd ramos Type: BLOOD SPECIMENOrdering Facility: [facility] Address: [address] [place] [address] Result Comment: Resu lts may be falsely depressed after the administration of Sulfasalazine and/or Sulfapyridine. Performed By: #### 2 4323-8, , HSTROP ####[facility]ATORYCLIA [id number] [place] [id number] [place] Anion gap [Moles/Vol] 10 mmol/L Normal 5-16 [facility] Comment on above: Order Comment: Syd ramos Type: BLOOD SPECIMENOrdering Facility: [facility] Address: [address] [place] [address] Performed By: #### 2 4323-8, , HSTROP ####[facility]ATORYCLIA [id number] [place] [address] [place] AST [Catalytic activity/Vol] Normal [facility] Comment on above: Order Comment: Syd ramos Type: BLOOD SPECIMENOrdering Facility: [facility] Address: [address] [place] [address] Result Comment: Unab le to assay due to interference from hemolysis. Suggest reorder as clinically indicated.Results may be falsely depressed after the administration of Sulfasalazine and/or Sulfapyridine. Performed By: #### 2 4323-8, , HSTROP ####[facility]ATORYCLIA [id number] [place] [address] [place] Bilirubin [Mass/Vol] 0.6 mg/dL Normal 0.2-1.0 [facility] Comment on above: Order Comment: Syd ramos Type: BLOOD SPECIMENOrdering Facility: [facility] Address: [address] [place] [address] Performed By: #### 2 4323-8, , HSTROP ####[facility]ATORYCLIA [id number] [place] [address] [place] Calcium [Mass/Vol] 9.7 mg/dL Normal 8.5-10.5 [facility] Comment on above: Order Comment: Speci men Type: BLOOD SPECIMENOrdering Facility: [facility] Address: [address] [place] [address] Performed By: #### 2 4323-8, , HSTROP ####[facility]ORATORYCLIA [id number] [place] [address] [place] Chloride [Moles/Vol] 107 mmol/L Normal 98-107 [facility] Comment on above: Order Comment: Speci men Type: BLOOD SPECIMENOrdering Facility: [facility] Address: [address] [place] [address] Performed By: #### 2 4323-8, , HSTROP ####[facility]ATORYCLIA [id number] [place] [id number] [place] CO2 [Moles/Vol] 24 mmol/L Normal 21-32 [facility] Comment on above: Order Comment: Speci men Type: BLOOD SPECIMENOrdering Facility: [facility] Address: [address] [place] [address] Performed By: #### 2 4323-8, , HSTROP ####[facility]ATORYCLIA [id number] [place] [address] [place] Creatinine [Mass/Vol] 0.64 mg/dL Normal 0.51-0.95 [facility] Comment on above: Order Comment: Speci men Type: BLOOD SPECIMENOrdering Facility: [facility] Address: [address] [place] [address] Result Comment: Marilin ents receiving either N-Acetylcysteine (NAC) or Metamizole prior to venipuncture, may have falsely depressed results. Performed By: #### 2 4323-8, , HSTROP ####[facility]ATORYCLIA [id number] [address] [place] Creatinine and Glomerular filtration rate.predicted panel (S/P/Bld) 110 mL/min/1.73m??? Normal >=60 [facility] Comment on above: Order Comment: Irmapatrice ramos Type: BLOOD SPECIMENOrdering Facility: [facility] Address: [address] [place] [address] Result Comment: Chrissy mated Glomerular Filtration Rate [...] actual GFR. Performed By: #### 2 4323-8, 65580-3, HSTROP ####[facility]ATORYCLIA [id number] [place] [address] [place] Glucose [Mass/Vol] 107 mg/dL High 70-100 [facility] Comment on above: Order Comment: Syd ramos Type: BLOOD SPECIMENOrdering Facility: [facility] Address: [address] [place] [address] Result Comment: The [place] Diabetes Association (ADA) provides guidance for cutoff [...] Standards of Medical Care in Diabetes 2016, [place] [employer] Association. Diabetes Care. 2016.39(Suppl 1).Results may be falsely elevated after the administration of Sulfapyridine.Results may be falsely depressed after the administration of Sulfasalazine. Performed By: #### 2 4323-8, 70200-3, HSTROP ####[facility]ATORYCLIA [id number] [place] [address] [place] Potassium [Moles/Vol] Normal [facility] Comment on above: Order Comment: Speci men Type: BLOOD SPECIMENOrdering Facility: [facility] Address: [address] [place] [address] Result Comment: Unab le to assay due to interference from hemolysis. Suggest reorder as clinically indicated. Performed By: #### 2 4323-8, , HSTROP ####[facility]ATORYCLIA [id number] [place] [id number] [place] Protein [Mass/Vol] 7.4 g/dL Normal 6.0-8.5 [facility] Comment on above: Order Comment: Speci men Type: BLOOD SPECIMENOrdering Facility: [facility] Address: [address] [place] [address] Performed By: #### 2 4323-8, , HSTROP ####[facility]ORATORYCLIA [id number] [place] [id number] [place] Sodium [Moles/Vol] 141 mmol/L Normal 136-145 [facility] Comment on above: Order Comment: Speci men Type: BLOOD SPECIMENOrdering Facility: [facility] Address: [address] [place] [address] Performed By: #### 2 4323-8, , HSTROP ####[facility]ATORYCLIA [id number] [place] [address] [place] Urea nitrogen [Mass/Vol] 11 mg/dL Normal 7-26 [facility] Comment on above: Order Comment: Speci men Type: BLOOD SPECIMENOrdering Facility: [facility] Address: [address] [place] [address] Performed By: #### 2 4323-8, , HSTROP ####[facility]ATORYCLIA [id number] [place] [id number] [place] ECG COMPLETEon 12-03-2024 ECG COMPLETE Normal [facility] ED NOTEon 12-03-2024 ED NOTE HNO ID: [id number] Author: RANDALL HADDAD RN Service: ? Author Type: Registered Nurse Type: ED Notes Filed: 12/03/2024 22:23 Note Text: Bed: 11-ED Expected date: 12/03/24 Expected time: Means of arrival: Comments: pit Normal [facility] ED Triage Noteon 12-03-2024 ED Triage Note Normal [facility] HIGH SENSITIVITY TROPONIN Io n 12-03-2024 Tropinin I.cardiac panel High sensitivity method <2.5 Normal 0.0-34.0 [facility] Comment on above: Order Comment: Speci men Type: BLOOD SPECIMENOrdering Facility: [facility] Address: [address] [place] [address] Performed By: #### 2 4323-8, 74578-5, HSTROP ####[facility]ORATORYCLIA [id number] [address] [place] LIPon 12-03-2024 Lipase Level 49 U/L Normal 16-77 DILSHAD GUAN Comment on above: Performed By: #### A DIFF, CBC, ANEU, GFR, CMP, MORPH, LIP, MDW ####Dilshad [address] [place] [address] Magnesium SerPl-mCncon 12-03 Magnesium [Mass/Vol] 2.0 mg/dL Normal 1.6-2.6 [facility] Comment on above: Order Comment: Speci men Type: BLOOD SPECIMENOrdering Facility: [facility] Address: [address] [place] [address] Performed By: #### 2 4323-8, , HSTROP ####[facility]ATORYCLIA [id number] [address] [place] SEPSIS LACTATEon 12-03-2024 Lactate [Moles/Vol] 2.7 mmol/L High 0.4-2.0 [facility] Comment on above: Order Comment: Speci men Type: BLOOD SPECIMENOrdering Facility: [facility] Address: [address] [place] [address] Result Comment: CRIT ICAL Performed By: #### S LACT ####[facility]ORATORYCLIA [id number] [place] [address] [facility] UAMICon 12-03-2024 UA Bacteria Trace Abnormal Negative DILSHAD MASSILLON Comment on above: Performed By: #### C ISI, EDD HAZEL, MG, CBC, GFR, ANEU #### Dilshad [address] [place], [place] [address] UA RBC 5-10 Abnormal 0-2 DILSHAD MASSILLON Comment on above: Performed By: #### C ILIR SNOWDEN MDW, MG, CBC, GFR, ANEU #### Dilshad [address] [place], [place] [address] UA Squam Epithelial Rare Normal 0-20 AULTM AN [facility] Comment on above: Performed By: #### C ISI, EDD HAZEL, MG, CBC, GFR, ANEU #### Dilshad [address] [place], [place] [address] UA WBC 3-5 Normal 0-5 DILSHAD MASSILLON Comment on above: Performed By: #### C ILIR SNOWDEN MDW, MG, CBC, GFR, ANEU #### Dilshad [address] [place], [place] [address] XR CHEST 1V FRONTALon 2024 XR CHEST 1V FRONTAL Normal [facility] UAon 12-02-2024 Color (U) Yellow Normal DILSHAD MASSILLON Comment on above: Performed By: #### C ILIR SNOWDEN MDW, MG, CBC, GFR, ANEU #### Dilshad [address] [place], [place] [address] Glucose (U) [Mass/Vol] Negative Normal Negative DILSHAD MASSILLON Comment on above: Performed By: #### C ISI, MD ILIRW, MG, CBC, GFR, ANEU #### Dilshad [address] [place], [place] [address] Ketones Ql (U) Trace Normal Neg-Trace DILSHAD MASSILLON Comment on above: Performed By: #### C ILIR SNOWDEN MDW, MG, CBC, GFR, ANEU #### Dilshad [address] [place], [place] [address] UA Appear Clear Normal DILSHAD MASSILLON Comment on above: Performed By: #### C ILIR SNOWDEN MDW, MG, CBC, GFR, ANEU #### Dilshad [address] [place], [place] [address] UA Blood Moderate Abnormal Neg-Trace DILSHAD MASSILLON Comment on above: Performed By: #### C ILIR SNOWDEN MDW, MG, CBC, GFR, ANEU #### Dilshad [address] [place], [place] [address] UA Leuk Est Negative Normal Negative DILSHAD MASSILLON Comment on above: Performed By: #### C ILIR SNOWDEN MDW, MG, CBC, GFR, ANEU #### Dilshad [address] [place], [place] [address] UA Nitrite Negative Normal Negative DILSHAD MASSILLON Comment on above: Performed By: #### C ILIR SNOWDEN MDW, MG, CBC, GFR, ANEU #### Dilshad [address] [place], [place] [address] UA pH 6.5 Normal 5.0 - 8.0 DILSHAD MASSILLON Comment on above: Performed By: #### C ILIR SNOWDEN MDW, MG, CBC, GFR, ANEU #### Dilshad [address] [place], [place] [address] UA Protein Negative Normal Negative DILSHAD MASSILLON Comment on above: Performed By: #### C ILIR SNOWDEN MDW, MG, CBC, GFR, ANEU #### Dilshad [address] [place], [place] [address] UA Spec Grav 1.025 Normal DILSHAD MASSILLON Comment on above: Performed By: #### C ILIR SNOWDEN MDW, MG, CBC, GFR, ANEU #### Dilshad [address] [place], [place] [address] UA Specimen Type Clean Catch Normal DILSHAD MASSILLON Comment on above: Performed By: #### C ILIR SNOWDEN MDW, MG, CBC, GFR, ANEU #### Dilshad [address] [place], [place] [address] UA Urobilinogen 2.0 E.U./dL Abnormal DILSHAD MASSILLON Comment on above: Performed By: #### C ISI, EDD HAZEL, MG, CBC, GFR, ANEU #### Dilshad [address] [place], [place] [address] Urobilinogen (U) [Mass/Vol] Negative Normal Neg-Trace DILSHAD MASSILLON Comment on above: Performed By: #### C ISI, EDD HAZEL, MG, CBC, GFR, ANEU #### Dilshad [address] [place], [place] [address] .Auto Diffon 10-16-2024 Basophil, Absolute 0.0 10 3/mcL Normal 0.0-0.3 RHIANNON MAN MASSILLON Comment on above: Performed By: #### M ORPHHAZEL ADIFF, MDW, CBC ####Dilshad [address] [place], [place] [address] Basophils/100 WBC (Bld) 0.6 % Normal 0.0-2.5 DILSHAD MASSILLON Comment on above: Performed By: #### M ORPHHAZEL ADIFF, MDW, CBC ####Dilshad [address]amb[address] [place], [place] [address] Eosinophil, Absolute 0.0 10 3/mcL Normal 0.0-0.7 AU LTMAN MASSILLON Comment on above: Performed By: #### M ORPHHAZEL ADIFF, MDW, CBC ####Dilshad Herjhudbj[address] [place], [place] [address] Eosinophils/100 WBC (Bld) 0.4 % Normal 0.0-6.0 DILSHAD MASSILLON Comment on above: Performed By: #### M ORPH ANEUILIR MDW, CBC ####Dilshad Sch[address] [place], [place] [address] Lymphocyte, Absolute 2.2 10 3/mcL Normal 0.9-4.3 AU LTMAN MASSILLON Comment on above: Performed By: #### M HAZEL MCCABE ADIFF, MDW, CBC ####Dilshad [address] [place], [place] [address] Lymphocytes/100 WBC (Bld) 29.6 % Normal 20.0-40.0 DILSHAD MASSILLON Comment on above: Performed By: #### M HAZEL MCCABE ADIFF, MDW, CBC ####Dilshad [address] [place], [place] [address] Monocyte, Absolute 1.6 10 3/mcL High 0.1-1.4 RHIANNON MAN MASSILLON Comment on above: Performed By: #### M HAZEL MCCABE ADIFF, MDW, CBC ####Dilshad [address]zmzzn[address] [place], [place] [address] Monocytes/100 WBC (Bld) 22.0 % High 2.0-13.0 DILSHAD MASSILLON Comment on above: Performed By: #### M HAZEL MCCABE ADIFF, MDW, CBC ####Dilshad [address] [place], [place] [address] Neutrophils/100 WBC (Bld) 47.4 % Low 50.0-75.0 DILSHAD MASSILLON Comment on above: Performed By: #### M HAZEL MCCABE ADIFF, MDW, CBC ####Dilshad [address] [place], [place] [address] .GFRon 10-16-2024 Estimated Glomerular Filtration Rate 67 [...] #### L AC, GFR, CMP ####Dilshad [address] [place] [address] .MDWon 10-16-2024 Monocyte Distribution Width 16.09 Normal 0.00-20.00 DILSHAD MASSILLON Comment on above: Result Comment: For ED adult patients suspected of sepsis, MDW<=20.0 does not rule out sepsis or risk of sepsis Performed By: #### M HAZEL MCCABE ADIFF, MDW, CBC ####Dilshad [address] [place] [address] .Morphon 10-16-2024 Platelet Estimate Decreased Normal DILSHAD MASSILLON Comment on above: Performed By: #### M HAZEL MCCABE ADIFF, MDW, CBC ####Dilshad [address] [place] [address] RBC morphology finding Nom (Bld) Normal Normal DILSHAD MASSILLON Comment on above: Performed By: #### M HAZEL MCCABE ADIFF, MDW, CBC ####Dilshad [address] [place] [address] .NEUABSon 10-16-2024 Neutrophil, Absolute 3.5 10 3/mcL Normal 2.3-8.1 AU LTMAN MASSILLON Comment on above: Performed By: #### M HAZEL MCCABE ADIFF, MDW, CBC ####Dilshad [address] [place] [address] APTTon 10-16-2024 aPTT Coag (Bld) [Time] 32.9 s Normal 25.0-35.0 DILSHAD MASSILLON Comment on above: Result Comment: For Heparin anticoagulation therapy, the recommended therapeutic range is: 54-77 seconds. PLEASE REFERENCE THE PHARMACY PROTOCOL FOR DOSING. Performed By: #### P RO, APTT ####Dilshad [address] [place] [address] CBCon 10-16-2024 Erythrocyte distribution width (RBC) [Ratio] 14.4 % Normal 11.5-15.5 DILSHAD MASSILLON Comment on above: Performed By: #### M HAZEL MCCABE ADIFF, MDW, CBC ####Dilshad P[address]kfoporr[address] [place], [place] [address] Hematocrit (Bld) [Volume fraction] 47.2 % High 34.0-46.0 DILSHAD MASSILLON Comment on above: Performed By: #### M HAZEL MCCABE ADIFF, MDW, CBC ####Dilshad Jonbfrgno[address] [place], [place] [address] Hgb 16.2 G/dL High 12.0-16.0 DILSHAD MASSILLON Comment on above: Performed By: #### M HAZEL MCCABE ADIFF, MDW, CBC ####Dilshad [address] [place], [place] [address] MCH (RBC) [Entitic mass] 32.6 pg Normal 27.0-33.0 DILSHAD MASSILLON Comment on above: Performed By: #### M HAZEL MCCABE ADIFF, MDW, CBC ####Dilshad [address] [place] [phone] MCHC 34.2 G/dL Normal 32.0-36.0 DILSHAD MASSILLON Comment on above: Performed By: #### M HAZEL MCCABE ADIFF, MDW, CBC ####Dilshad L[address]cjqyxj[address] [place], [place] [address] MCV (RBC) [Entitic vol] 95.4 fL Normal 80.0-99.0 DILSHAD MASSILLON Comment on above: Performed By: #### M HAZEL MCCABE ADIFF, MDW, CBC ####Dilshad [address] [place] [phone] Platelet 99 10 3/mcL Low 150-450 DILSHAD MASSILLON Comment on above: Performed By: #### M HAZEL MCCABE ADIFF, MDW, CBC ####Dilshad W[address]wvtzweb28[address] [place], [place] [address] Platelet mean volume (Bld) [Entitic vol] 7.3 fL Normal 6.6-10.5 DILSHAD MASSILLON Comment on above: Performed By: #### M HAZEL MCCABE ADIFF, MDW, CBC ####Dilshad [address] [place] [phone] RBC 4.95 10 6/mcL Normal 4.10-5.30 DILSHAD MASSILLON Comment on above: Performed By: #### M HAZEL MCCABE ADIFF, MDW, CBC ####Dilshad JohnsonCpjscqtxr[address] [place] [phone] WBC 7.3 10 3/mcL Normal 4.5-10.8 DILSHAD MASSILLON Comment on above: Performed By: #### M ORHAZEL SHAHID ADIFF, MDW, CBC ####Dilshad [address] [place] [phone] CMPon 10-16-2024 Albumin Level 3.8 G/dL Normal 3.5-5.0 DILSHAD MASSILLON Comment on above: Performed By: #### L AC, GFR, CMP ####Dilshad [address] [place] [address] Albumin/Globulin [Mass ratio] 1.0 {ratio} Low 1.1-2.5 DILSHAD MASSILLON Comment on above: Performed By: #### L AC, GFR, CMP ####Dilshad [address]jor[address] [place] [phone] ALP [Catalytic activity/Vol] 86 U/L Normal 40-135 DILSHAD MASSILLON Comment on above: Performed By: #### L AC, GFR, CMP ####Dilshad JohnsonRwjyktowr[address] [place] [phone] ALT [Catalytic activity/Vol] 17 U/L Normal 14-59 DILSHAD MASSILLON Comment on above: Performed By: #### L AC, GFR, CMP ####Dilshad JohnsonOrssuceeq[address] [place] [phone] AST [Catalytic activity/Vol] 16 U/L Normal 10-40 DILSHAD MASSILLON Comment on above: Performed By: #### L AC, GFR, CMP ####Dilshad JohnsonNxhysdwlj[address] [place] [address], [place] [address] Bili Total 0.7 mg/dL Normal 0.2-1.0 DILSHAD MASSILLON Comment on above: Result Comment: Use of this assay is not recommended for patients undergoing treatment with eltrombopag due to the potential for falsely elevated results. Performed By: #### L AC, GFR, CMP ####Dilshad JohnsonVjefbeipx[address] [place], [place] [address] BUN/Creatinine Ratio 9 ratio Normal 7-27 RHIANNON MAN MASSILLON Comment on above: Performed By: #### L AC, GFR, CMP ####Dilshad [address]hgwz[address] [place], [place] [address] Calcium [Mass/Vol] 9.6 mg/dL Normal 8.4-10.2 AULTMA N MASSILLON Comment on above: Performed By: #### L AC, GFR, CMP ####Dilshad JohnsonOuznimzaa[address] [place], [place] [address] Chloride [Moles/Vol] 106 mmol/L Normal 98-107 RHIANNON MAN MASSILLON Comment on above: Performed By: #### L AC, GFR, CMP ####Dilshad E[address]vxyprn[address] [place], [place] [address] CO2 [Moles/Vol] 25 mmol/L Normal 22-29 DILSHAD MASSILLON Comment on above: Performed By: #### L AC, GFR, CMP ####Dilshad JohnsonZdwymrnst4905 [place], [place] [address] Creatinine [Mass/Vol] 1.03 mg/dL High 0.55-1.02 AUL TMAN MASSILLON Comment on above: Result Comment: Test ing performed on Siemens Dimension EXL analyzer using a modified kinetic Marky technique. Performed By: #### L AC, GFR, CMP ####Dilshad Cvuvfavad[address] [place], [place] [address] Electrolyte Balance 12.0 mEq/L Normal 4.0-15.0 AULTM AN [place]SILLON Comment on above: Performed By: #### L AC, GFR, CMP ####Dilshad Vidpohbfy[address] [place], [place] [address] Globulin 3.9 G/dL High 1.5-3.8 DILSHAD MASSILLON Comment on above: Performed By: #### L AC, GFR, CMP ####Dilshad Ickoxupmm[address] [place], [place] [address] Glucose [Mass/Vol] 118 mg/dL High 70-105 AULTMA N MASSILLON Comment on above: Performed By: #### L AC, GFR, CMP ####Dilshad Oakdtjpis[address] [place], [place] [address] Potassium [Moles/Vol] 3.4 mmol/L Low 3.5-5.1 AUL TMAN MASSILLON Comment on above: Performed By: #### L AC, GFR, CMP ####Dilshad Gqilahhei[address] [place], [place] [address] Sodium [Moles/Vol] 143 mmol/L Normal 136-145 AULTMA N MASSILLON Comment on above: Performed By: #### L AC, GFR, CMP ####Dilshad Augrwydin[address] [place], [place] [address] Total Protein 7.7 G/dL Normal 6.4-8.2 DILSHAD MASSILLON Comment on above: Performed By: #### L AC, GFR, CMP ####Dilshad Yvl[address]lfsmx78[address] [place] [phone] Urea nitrogen [Mass/Vol] 9 mg/dL Normal 7-18 DILSHAD MASSILLON Comment on above: Performed By: #### L AC, GFR, CMP ####Dilshad Gjofasvps9161 [place], [place] [address] CVFLURVon 10-16-2024 FLU A PCR Negative Normal Negative DILSHAD MASSILLON Comment on above: Performed By: #### C MP, ADJASPREET, MDW, MG, CBC, GFR, ANEU #### Dilshad [address] [place], [place] [address] FLU B PCR Negative Normal Negative DILSHAD MASSILLON Comment on above: Performed By: #### C MP, ADIFF, MDW, MG, CBC, GFR, ANEU #### Dilshad [address] [place], [place] [address] RSV PCR Negative Normal Negative DILSHAD MASSILLON Comment on above: Performed By: #### C ILIR SNOWDEN MDW, MG, CBC, GFR, ANEU #### [facility] [address] [place] [address] SARS-CoV-2 (COVID-19) RNA MACIE+probe Ql (Unsp spec) Negative Normal Negative [facility] Comment on above: Result Comment: This test [...] EDD, MG, CBC, GFR, ANEU #### Dilshad [address] [place] [address] LACon 10-16-2024 Lactic Acid Lvl 2.3 mmol/L High 0.4-2.0 [facility] Comment on above: Performed By: #### L AC, GFR, CMP ####Dilshad Hrpciprkb[address] [place] [address] PROon 10-16-2024 PT Coag (PPP) [Time] 11.4 s Normal 9.0-14.4 [facility] Comment on above: Performed By: #### P RO, APTT ####Dilshad [address]kw[address] [place] [address] PT International Ratio 1.0 Normal DILSHAD MASSILLON Comment on above: Result Comment: The [employer] (CHEST, 1992, 102:312S-25S) recommended therapeutic range for oral anticoagulant therapy is: LOW RISK: Prophylaxis of venous thrombosis INR: 2.0-3.0 Treatment of pulmonary embolism 2.0-3.0 Prevention of systemic embolism 2.0-3.0 HIGH RISK: Mechanical prosthetic valves 2.5-3.5 Performed By: #### P RO, APTT ####Dilshad Sqlismjhk[address] [place] [address] TROPHSon 10-16-2024 High Sensitivity Troponin I 10 ng/L Normal 0-51 DILSHAD MASSILLON Comment on above: Result Comment: High Sensitive Troponin I Reference Ranges: Female: 0-51 ng/L Male: 0-76 ng/L Testing performed on [employer] using a homogeneous sandwich chemiluminescent immunoassay based on [employer] technology. Performed By: #### T ROPHS ####Dilshad X[address]xhtd[address] [place] [address] UAon 10-16-2024 Color (U) Yellow Normal DILSHAD MASSILLON Comment on above: Performed By: #### U A, UAMIC ####Dilshad Bawwdswnp[address] [place] [address] Glucose (U) [Mass/Vol] Negative Normal Negative DILSHAD MASSILLON Comment on above: Performed By: #### U A, UAMIC ####Dilshad Fkanlruzo[address] [place] [address] Ketones Ql (U) Trace Normal Neg-Trace DILSHAD MASSILLON Comment on above: Performed By: #### U A, UAMIC ####Dilshad Gbltnozku[address] [place] [address] UA Appear Clear Normal DILSHAD MASSILLON Comment on above: Performed By: #### U A, UAMIC ####Dilshad Mcgvthhti[address]146 [place] [address] UA Blood Small Abnormal Neg-Trace DILSHAD MASSILLON Comment on above: Performed By: #### U A, UAMIC ####Dilshad Wjbomhyhb7124 [place] [address] UA Leuk Est Trace Normal Negative DILSHAD MASSILLON Comment on above: Performed By: #### U A, UAMIC ####Dilshad Dtwrtdkib4493 [place] [address] UA Nitrite Negative Normal Negative DILSHAD MASSILLON Comment on above: Performed By: #### U A, UAMIC ####Dilshad Mxrurxgbh4530 [place] [address] UA pH 7.0 Normal 5.0 - 8.0 DILSHAD MASSILLON Comment on above: Performed By: #### U A, UAMIC ####Dilshad Uvhdehqmz3309 [place] [address] UA Protein 30 mg/dL Normal Negative DILSHAD MASSILLON Comment on above: Performed By: #### U A, UAMIC ####Dilshad [id number] [place] [address] UA Spec Grav 1.020 Normal DILSHAD MASSILLON Comment on above: Performed By: #### U A, UAMIC ####Dilshad [id number] [place] [address] UA Specimen Type Straight Cath Normal AULTM AN MASSILLON Comment on above: Performed By: #### U A, UAMIC ####Dilshad [id number] [place] [address] UA Urobilinogen 4.0 E.U./dL Abnormal DILSHAD MASSILLON Comment on above: Performed By: #### U A, UAMIC ####Dilshad [id number] [place] [address] Urobilinogen (U) [Mass/Vol] Negative Normal Neg-Trace DILSHAD MASSILLON Comment on above: Performed By: #### U A, UAMIC ####Dilshad [id number] [place] [address] UAMICon 10-16-2024 UA Bacteria Trace Abnormal Negative DILSHAD MASSILLON Comment on above: Performed By: #### U A, UAMIC ####Dilshad [id number] [place] [address] UA RBC 3-5 Abnormal 0-2 DILSHAD MASSILLON Comment on above: Performed By: #### U A, UAMIC ####Dilshad [id number] [place] [id number] UA Squam Epithelial 3-5 Normal 0-20 AULTM AN MASSILLON Comment on above: Performed By: #### U A, UAMIC ####Dilshad [id number] [place] [address] UA WBC Rare Normal 0-5 DILSHAD MASSILLON Comment on above: Performed By: #### U A, UAMIC ####Dilshad [id number] [place] [id number] PREGUon 10-11-2024 HCG ( test) Ql (U) Negative Normal DILSHAD MASSILLON Comment on above: Performed By: #### U A, PREGU, UAMIC ####Dilshad Ben[address] [place] [address] test (u) int Invalid Interpretation Code DILSHAD MASSILLON Comment on above: Result Comment: HCG not detected. Very dilute urine specimens, as indicated by a low specific gravity, may not contain sales promotion representative levels of hCG. If is still suspected, a first morning urine specimen should be collected 48 hours later and tested. Performed By: #### U A, PREGU, UAMIC ####Dilshad Ben[address] [place] [address] UAon 10-11-2024 Color (U) Yellow Normal DILSHAD MASSILLON Comment on above: Performed By: #### U A, PREGU, UAMIC ####Dilshad JohnsonSnxxiubou0847 [place] [phone] Glucose (U) [Mass/Vol] Negative Normal Negative DILSHAD MASSILLON Comment on above: Performed By: #### U A, PREGU, UAMIC ####Dilshad JohnsonLkzoivbqa8243 [place] [address] Ketones Ql (U) Negative Normal Neg-Trace DILSHAD MASSILLON Comment on above: Performed By: #### U A, PREGU, UAMIC ####Dilshad Qxifjqbeh6821 [place] [address] UA Appear Cloudy Abnormal DILSHAD MASSILLON Comment on above: Performed By: #### U A, PREGU, UAMIC ####Dilshad Dtseeryto3324 [place] [address] UA Blood Small Abnormal Neg-Trace DILSHAD MASSILLON Comment on above: Performed By: #### U A, PREGU, UAMIC ####Dilshad Jcodxeipc1384 [place] [address] UA Leuk Est Moderate Abnormal Negative DILSHAD MASSILLON Comment on above: Performed By: #### U A, PREGU, UAMIC ####Dilshad Itbucgutj7727 [place] [address] UA Nitrite Negative Normal Negative DILSHAD MASSILLON Comment on above: Performed By: #### U A, PREGU, UAMIC ####Dilshad Rdugbwsir9359 [place] [address] UA pH 7.5 Normal 5.0 - 8.0 DILSHAD MASSILLON Comment on above: Performed By: #### U A, PREGU, UAMIC ####Dilshad Pknutcold2333 [place] [address] UA Protein Negative Normal Negative DILSHAD MASSILLON Comment on above: Performed By: #### U A, PREGU, UAMIC ####Dilshad Kgdemjnmd8854 [place] [address] UA Spec Grav 1.015 Normal DILSHAD MASSILLON Comment on above: Performed By: #### U A, PREGU, UAMIC ####Dilshad Jmdeeytwz[address] [place] [address] UA Specimen Type Clean Catch Normal DILSHAD MASSILLON Comment on above: Performed By: #### U A, PREGU, UAMIC ####Dilshad Hmzjvqtbe2915 [place] [address] UA Urobilinogen 1.0 E.U./dL Normal DILSHAD MASSILLON Comment on above: Performed By: #### U A, PREGU, UAMIC ####Dilshad Caeugvyxu7225 [place] [address] Urobilinogen (U) [Mass/Vol] Negative Normal Neg-Trace DILSHAD MASSILLON Comment on above: Performed By: #### U A, PREGU, UAMIC ####Dilshad Wcosctfhz6087 [place] [address] UAMICon 10-11-2024 UA Amorphus 2+ /hpf Normal DILSHAD MASSILLON Comment on above: Performed By: #### U A, PREGU, UAMIC ####Dilshad Bshmtciwj0705 [place] [address] UA Bacteria 2+ /hpf Abnormal Negative DILSHAD MASSILLON Comment on above: Performed By: #### U A, PREGU, UAMIC ####Dilshad Qhtrivobp4410 [place] [address] UA Ghost cells 0-2 Abnormal DILSHAD MASSILLON Comment on above: Performed By: #### U A, PREGU, UAMIC ####Dilshad Mknvsjunm7071 [place] [address] UA Hyal Cast Rare Normal DILSHAD MASSILLON Comment on above: Performed By: #### U A, PREGU, UAMIC ####Dilshad Aumekouhf2662 [place] [address] UA Mucous Trace Normal DILSHAD MASSILLON Comment on above: Performed By: #### U A, PREGU, UAMIC ####Dilshad Ahpnhehrd8102 [place] [address] UA RBC 0-2 Normal 0-2 DILSHAD MASSILLON Comment on above: Performed By: #### U A, PREGU, UAMIC ####Dilshad Ejvrabygq0663 [place] [address] UA Squam Epithelial 0-2 Normal 0-20 AULTM AN MASSILLON Comment on above: Performed By: #### U A, PREGU, UAMIC ####Dilshad Aekldjols[address] [place], [place] [address] UA WBC 0-2 Normal 0-5 DILSHAD MASSILLON Comment on above: Performed By: #### U A, PREGU, UAMIC ####Dilshad Frichsnfh3600 [place], [place] [address] .Auto Diffon 09-13-2024 Basophil, Absolute 0.0 10 3/mcL Normal 0.0-0.3 RHIANNON MAN MASSILLON Comment on above: Performed By: #### C MP, ADIFF, MDW, MG, CBC, GFR, ANEU #### Dilshad Dun[address] [place], [place] [address] Basophils/100 WBC (Bld) 0.5 % Normal 0.0-2.5 DILSHAD MASSILLON Comment on above: Performed By: #### C MP, ADIFF, MDW, MG, CBC, GFR, ANEU #### Dilshad Dun[address]gan [address] [place], [place] [address] Eosinophil, Absolute 0.0 10 3/mcL Normal 0.0-0.7 AU LTMAN MASSILLON Comment on above: Performed By: #### C MP, ADIFF, MDW, MG, CBC, GFR, ANEU #### Dilshad Dun[address] [place], [place] [address] Eosinophils/100 WBC (Bld) 0.4 % Normal 0.0-6.0 DILSHAD MASSILLON Comment on above: Performed By: #### C MP, ADIFF, MDW, MG, CBC, GFR, ANEU #### Dilshad Dunnegan [address] [place], [place] [address] Lymphocyte, Absolute 0.7 10 3/mcL Low 0.9-4.3 AU LTMAN MASSILLON Comment on above: Performed By: #### C MP, ADIFF, MDW, MG, CBC, GFR, ANEU #### Dilshad Dunnegan [address] [place], [place] [address] Lymphocytes/100 WBC (Bld) 12.7 % Low 20.0-40.0 DILSHAD MASSILLON Comment on above: Performed By: #### C MP, ADIFF, MDW, MG, CBC, GFR, ANEU #### Dilshad Dun[address]gan [address] [place], [place] [address] Monocyte, Absolute 1.2 10 3/mcL Normal 0.1-1.4 RHIANNON MAN MASSILLON Comment on above: Performed By: #### C MP, ADIFF, MDW, MG, CBC, GFR, ANEU #### Dilshad Dun[address]gan [address] [place], [place] [address] Monocytes/100 WBC (Bld) 20.7 % High 2.0-13.0 DILSHAD MASSILLON Comment on above: Performed By: #### C MP, ADIFF, MDW, MG, CBC, GFR, ANEU #### Dilshad Dun[address] [place], [place] [address] Neutrophils/100 WBC (Bld) 65.7 % Normal 50.0-75.0 DILSHAD MASSILLON Comment on above: Performed By: #### C MP, ADIFF, MDW, MG, CBC, GFR, ANEU #### Dilshad Dunnegan [address] [place], [place] [address] .GFRon 09-13-2024 Estimated Glomerular Filtration Rate 79 ml/min/1.73sqm Normal [facility] Comment on above: Result Comment: Stages of [...] MDW, MG, CBC, GFR, ANEU #### Dilshad Dunnegan [address] [place], [place] [address] .MDWon 09-13-2024 Monocyte Distribution Width 24.19 High 0.00-20.00 DILSHAD MASSILLON Comment on above: Result Comment: For adults in ED, MDW>20.0 may be associated with a higher risk of sepsis during the first 12hrs of hospital admission Performed By: #### C ISI, MD ILIRW, MG, CBC, GFR, ANEU #### [facility] [address] [place] [address] .Morphon 09-13-2024 Anisocytosis Ql (Bld) 1+ Normal [facility] Comment on above: Performed By: #### C MP, ILIR, MDW, MG, CBC, GFR, ANEU #### [facility] [address] [place] [address] Platelet Estimate Decreased Normal [facility] Comment on above: Performed By: #### C ISI, ILIR, W, MG, CBC, GFR, ANEU #### [facility] [address] [place] [address] .NEUABSon 09-13-2024 Neutrophil, Absolute 3.8 10 3/mcL Normal 2.3-8.1 [facility] Comment on above: Performed By: #### C ISI, ILIR, MDW, MG, CBC, GFR, ANEU #### [facility] [address] [place] [address] CBCon 09-13-2024 Erythrocyte distribution width (RBC) [Ratio] 14.9 % Normal 11.5-15.5 [facility] Comment on above: Performed By: #### C ISI, ILIR, MDW, MG, CBC, GFR, ANEU #### [facility] [address] [place] [address] Hematocrit (Bld) [Volume fraction] 42.0 % Normal 34.0-46.0 [facility] Comment on above: Performed By: #### C ISI, ILIR, W, MG, CBC, GFR, ANEU #### [facility] [address] [place] [phone] Hgb 14.1 G/dL Normal 12.0-16.0 [facility] Comment on above: Performed By: #### C ISI, ILIR, W, MG, CBC, GFR, ANEU #### Dilshad Dun[address] [place], [place] [address] MCH (RBC) [Entitic mass] 32.2 pg Normal 27.0-33.0 DILSHAD MASSILLON Comment on above: Performed By: #### C MP, ADIFF, MDW, MG, CBC, GFR, ANEU #### Dilshad Ben [address] [place], [place] [address] MCHC 33.6 G/dL Normal 32.0-36.0 DILSHAD MASSILLON Comment on above: Performed By: #### C MP, ADIFF, MDW, MG, CBC, GFR, ANEU #### Dilshad [place] [address] [place] [phone] MCV (RBC) [Entitic vol] 95.9 fL Normal 80.0-99.0 DILSHAD MASSILLON Comment on above: Performed By: #### C MP, ADIFF, MDW, MG, CBC, GFR, ANEU #### Dilshad [place] [address] [place] [phone] Platelet 78 10 3/mcL Low 150-450 DILSHAD MASSILLON Comment on above: Performed By: #### C MP, ADIFF, MDW, MG, CBC, GFR, ANEU #### Dilshad [place] [address] [place] [phone] Platelet mean volume (Bld) [Entitic vol] 7.3 fL Normal 6.6-10.5 DILSHAD MASSILLON Comment on above: Performed By: #### C MP, ADIFF, MDW, MG, CBC, GFR, ANEU #### Dilshad [place] [address] [place] [phone] RBC 4.38 10 6/mcL Normal 4.10-5.30 DILSHAD MASSILLON Comment on above: Performed By: #### C MP, ADIFF, MDW, MG, CBC, GFR, ANEU #### Dilshad [place] [address] [place] [phone] WBC 5.8 10 3/mcL Normal 4.5-10.8 DILSHAD MASSILLON Comment on above: Performed By: #### C MP, ADIFF, MDW, MG, CBC, GFR, ANEU #### Dilshad [place] [address] [place], [place] [address] CMPon 09-13-2024 Albumin Level 2.9 G/dL Low 3.5-5.0 DILSHAD MASSILLO Comment on above: Performed By: #### C MP, ADIFF, MDW, MG, CBC, GFR, ANEU #### Dilshad Ben [address] [place], [place] [address] Albumin/Globulin [Mass ratio] 0.9 {ratio} Low 1.1-2.[address] [facility] Comment on above: Performed By: #### C MP, ADIFF, MDW, MG, CBC, GFR, ANEU #### Dilshadvazquez JohnsonDunnegan [address] [place], [place] [address] ALP [Catalytic activity/Vol] 73 U/L Normal 40-[address] [facility] Comment on above: Performed By: #### C MP, ADIFF, MDW, MG, CBC, GFR, ANEU #### Dilshadvazquez JohnsonDunnegan [address] [place], [place] [address] ALT [Catalytic activity/Vol] 28 U/L Normal 14-[address] [facility] Comment on above: Performed By: #### C MP, ADIFF, MDW, MG, CBC, GFR, ANEU #### Dilshad [place] [address] [place], [place] [address] AST [Catalytic activity/Vol] 20 U/L Normal 10-[address] [facility] Comment on above: Performed By: #### C MP, ADIFF, MDW, MG, CBC, GFR, ANEU #### Dilshad Dunne[address] [place], [place] [address] Bili Total 0.4 mg/dL Normal 0.2-1.0 DILSHAD HAMPSTEAD Comment on above: Result Comment: Use of this assay is not recommended for patients undergoing treatment with eltrombopag due to the potential for falsely elevated results. Performed By: #### C MP, ADIFF, MDW, MG, CBC, GFR, ANEU #### Dilshad Dun[address] [place], [place] [address] BUN/Creatinine Ratio 11 ratio Normal 7-27 RHIANNON MAN MASSILLON Comment on above: Performed By: #### C MP, ADIFF, MDW, MG, CBC, GFR, ANEU #### Dilshad [place] [address] [place], [place] [address] Calcium [Mass/Vol] 8.9 mg/dL Normal 8.4-10.2 AULTMA N MASSILLON Comment on above: Performed By: #### C MP, ADIFF, MDW, MG, CBC, GFR, ANEU #### Dilshad [place] [address] [place], [place] [address] Chloride [Moles/Vol] 103 mmol/L Normal 98-107 RHIANNON MAN MASSILLON Comment on above: Performed By: #### C MP, ADIFF, MDW, MG, CBC, GFR, ANEU #### Dilshad [place] [address] [place] [phone] CO2 [Moles/Vol] 28 mmol/L Normal 22-29 DILSHAD MASSILLON Comment on above: Performed By: #### C MP, ADIFF, MDW, MG, CBC, GFR, ANEU #### Dilshad [place] [address] [place], [place] [address] Creatinine [Mass/Vol] 0.90 mg/dL Normal 0.55-1.02 AUL TMAN MASSILLON Comment on above: Result Comment: Test ing performed on Siemens Dimension EXL analyzer using a modified kinetic Marky technique. Performed By: #### C MP, ADIFF, MDW, MG, CBC, GFR, ANEU #### Dilshad [place] [address] [place], [place] [address] Electrolyte Balance 7.0 mEq/L Normal 4.0-15.0 AULTM AN MASSILLON Comment on above: Performed By: #### C MP, ADIFF, MDW, MG, CBC, GFR, ANEU #### Dilshad Dun[address] [place], [place] [address] Globulin 3.3 G/dL Normal 1.5-3.8 DILSHAD MASSILLON Comment on above: Performed By: #### C MP, ADIFF, MDW, MG, CBC, GFR, ANEU #### Dilshad [place] [address] [place], [place] [address] Glucose [Mass/Vol] 139 mg/dL High 70-105 AULTMA N MASSILLON Comment on above: Performed By: #### C ILIR SNOWDEN MDW, MG, CBC, GFR, ANEU #### Dilshad Dun[address] [place], [place] [address] Potassium [Moles/Vol] 3.7 mmol/L Normal 3.5-5.1 AUL TMAN MASSILLON Comment on above: Performed By: #### C ISI, ILIR, W, MG, CBC, GFR, ANEU #### Dilshad Dun[address] [place], [place] [address] Sodium [Moles/Vol] 138 mmol/L Normal 136-145 AULTMA N MASSILLON Comment on above: Performed By: #### C ISI, ILIR, W, MG, CBC, GFR, ANEU #### Dilshad [place] [address] [place], [place] [address] Total Protein 6.2 G/dL Low 6.4-8.2 DILSHAD MASSILLON Comment on above: Performed By: #### C ILIR SNOW[place], W, MG, CBC, GFR, ANEU #### Dilshad Dun[address] [place], [place] [address] Urea nitrogen [Mass/Vol] 10 mg/dL Normal 7-18 DILSHAD MASSILLON Comment on above: Performed By: #### C ILIR NSOWDEN, W, MG, CBC, GFR, ANEU #### Dilshad [place] [address] [place], [place] [address] CVFLURVon 09-13-2024 FLU A PCR Positive Abnormal Negative DILSHAD MASSILLON Comment on above: Performed By: #### C VFLURV ####Dilshad JohnsonCzzprykph9451 [place], [place] [address] FLU B PCR Negative Normal Negative DILSHAD MASSILLON Comment on above: Performed By: #### C VFLURV ####Dilshadsocorro JohnsonNryugguoe6434 [place], [place] [address] RSV PCR Negative Normal Negative DILSHAD MASSILLON Comment on above: Performed By: #### C VFLURV ####Dilshad Bswjgejhs6446 [place], [place] [address] SARS-CoV-2 (COVID-19) RNA MACIE+probe Ql (Unsp spec) Negative Normal Negative [facility] Comment on above: Result Comment: This test [...] Performed By: #### C VFLURV ####Dilshad Ben[address] [place], [place] [address] LACon 09-13-2024 Lactic Acid Lvl 1.5 mmol/L Normal 0.4-2.0 [facility] Comment on above: Performed By: #### C ILIR SNOWDEN MDW, MG, CBC, GFR, ANEU #### Dilshad Ben [address] [place], [place] [address] MGon 09-13-2024 Magnesium [Mass/Vol] 1.8 mg/dL Normal 1.8-2.4 [facility] Comment on above: Performed By: #### C ISI, ILIR, MDW, MG, CBC, GFR, ANEU #### Dilshad Dun[address] [place], [place] [address] PREGUon 09-13-2024 HCG ( test) Ql (U) Negative Normal DILSHAD MASSILLON Comment on above: Performed By: #### U AMIC, UA, PREGU ####Dilshad Eiqnmnbnk8908 [place] [address] test (u) int Invalid Interpretation Code DILSHAD MASSILLON Comment on above: Result Comment: HCG not detected. Very dilute urine specimens, as indicated by a low specific gravity, may not contain sales promotion representative levels of hCG. If is still suspected, a first morning urine specimen should be collected 48 hours later and tested. Performed By: #### U AMIC, UA, PREGU ####Dilshad Lzkukjqma2387 [place] [phone] UAon 09-13-2024 Color (U) Yellow Normal DILSHAD MASSILLON Comment on above: Performed By: #### U AMIC, UA, PREGU ####Dilshad Gzqkpwcvw6537 [place] [address] Glucose (U) [Mass/Vol] Negative Normal Negative DILSHAD MASSILLON Comment on above: Performed By: #### U AMIC, UA, PREGU ####Dilshad Zgrfizevg9132 [place] [address] Ketones Ql (U) Negative Normal Neg-Trace DILSHAD MASSILLON Comment on above: Performed By: #### U AMIC, UA, PREGU ####Dilshad Kbhleckvh37[address] [place] [phone] UA Appear Cloudy Abnormal DILSHAD MASSILLON Comment on above: Performed By: #### U AMIC, UA, PREGU ####Dilshad Jsisxstsp9326 [place] [phone] UA Blood Moderate Abnormal Neg-Trace DILSHAD MASSILLON Comment on above: Performed By: #### U AMIC, UA, PREGU ####Dilshad Aoytrtwii2754 [place] [phone] UA Leuk Est Negative Normal Negative DILSHAD MASSILLON Comment on above: Performed By: #### U AMIC, UA, PREGU ####Dilshad Bwfwpaeha9551 [place] [address] UA Nitrite Negative Normal Negative DILSHAD MASSILLON Comment on above: Performed By: #### U AMIC, UA, PREGU ####Dilshad Sztvbgxbt7679 [place] [address] UA pH 7.0 Normal 5.0 - 8.0 DILSHAD MASSILLON Comment on above: Performed By: #### U AMIC, UA, PREGU ####Dilshad Njqkpogac5989 [place] [address] UA Protein Negative Normal Negative DILSHAD MASSILLON Comment on above: Performed By: #### U AMIC, UA, PREGU ####Dilshad Yssovvfpw0577 [place] [address] UA Spec Grav 1.010 Abnormal DILSHAD MASSILLON Comment on above: Performed By: #### U AMIC, UA, PREGU ####Dilshad Wwoouffxj4751 [place] [address] UA Specimen Type Clean Catch Normal DILSHAD MASSILLON Comment on above: Performed By: #### U AMIC, UA, PREGU ####Dilshad Ijpwejsig9495 [place] [address] UA Urobilinogen 2.0 E.U./dL Abnormal DILSHAD MASSILLON Comment on above: Performed By: #### U AMIC, UA, PREGU ####Dilshad Veaoydlgh6167 [place] [address] Urobilinogen (U) [Mass/Vol] Negative Normal Neg-Trace DILSHAD MASSILLON Comment on above: Performed By: #### U AMIC, UA, PREGU ####Dilshad Fxgdufezn2549 [place] [address] UAMICon 09-13-2024 UA Amorphus 1+ /hpf Normal DILSHAD MASSILLON Comment on above: Performed By: #### U AMIC, UA, PREGU ####Dilshad Jjxlvjhkd4581 [place] [address] UA Bacteria Trace Abnormal Negative DILSHAD MASSILLON Comment on above: Performed By: #### U AMIC, UA, PREGU ####Dilshad Jqdistbvg9067 [place], [place] [address] UA RBC Rare Normal 0-2 DILSHAD MASSILLON Comment on above: Performed By: #### U AMIC, UA, PREGU ####Dilshad Tzxuwrrte9844 [place], [place] [address] UA Squam Epithelial Rare Normal 0-20 AULTM AN MASSI[place]ON Comment on above: Performed By: #### U AMIC, UA, PREGU ####Dilshad Whvcnufhf9665 [place] [address] UA WBC Rare Normal 0-5 DILSHAD MASSILLON Comment on above: Performed By: #### U AMIC, UA, PREGU ####Dilshad Ybwuflvqy5911 [place], [place] [address] XR CHEST 2 VIEWSon XR CHEST 2 VIEWS ORIGINAL EXAMINATION: TWO XRAY VIEWS OF THE CHEST 09/13/2024 10:56 pm COMPARISON: Radiograph of the chest July 26, 2024 HISTORY: ORDERING SYSTEM PROVIDED HISTORY: Reason for Exam: PT FROM SHELTER, ALTERED MS, + FLU A SOB FINDINGS: [...] MDW, MG, CBC, GFR, ANEU #### Dilshad Dun[address] [place], [place] [address] Basophils/100 WBC (Bld) 0.6 % Normal 0.0-2.5 DILSHAD MASSILLON Comment on above: Performed By: #### C MP, ADIFF, MDW, MG, CBC, GFR, ANEU #### Dilshad Dun[address] [place], [place] [address] Eosinophil, Absolute 0.1 10 3/mcL Normal 0.0-0.7 AU LTMAN MASSILLON Comment on above: Performed By: #### C MP, ADIFF, MDW, MG, CBC, GFR, ANEU #### Dilshad Dun[address] [place], [place] [address] Eosinophils/100 WBC (Bld) 1.1 % Normal 0.0-6.0 DILSHAD MASSILLON Comment on above: Performed By: #### C MP, ADIFF, MDW, MG, CBC, GFR, ANEU #### Dlishad Dunne[address] [place], [place] [address] Lymphocyte, Absolute 3.8 10 3/mcL Normal 0.9-4.3 AU LTMAN [facility] Comment on above: Performed By: #### C MP, ADIFF, MDW, MG, CBC, GFR, ANEU #### Dilshad Dun[address] [place], [place] [address] Lymphocytes/100 WBC (Bld) 43.0 % High 20.0-40.0 DILSHAD MASSILLON Comment on above: Performed By: #### C MP, ADIFF, MDW, MG, CBC, GFR, ANEU #### Dilshad Dun[address] [place], [place] [address] Monocyte, Absolute 1.3 10 3/mcL Normal 0.1-1.4 RHIANNON MAN [facility] Comment on above: Performed By: #### C MP, ADIFF, MDW, MG, CBC, GFR, ANEU #### Dilshad Dun[address] [place], [place] [address] Monocytes/100 WBC (Bld) 14.6 % High 2.0-13.0 DILSHAD MASSILLON Comment on above: Performed By: #### C MP, ADIFF, MDW, MG, CBC, GFR, ANEU #### Dilshad Dun[address] [place], [place] [address] Neutrophils/100 WBC (Bld) 40.7 % Low 50.0-75.0 DILSHAD MASSILLON Comment on above: Performed By: #### C ILIR SNOWDEN MDW, MG, CBC, GFR, ANEU #### Dilshad Dun[address] [place], [place] [address] .GFRon 08-20-2024 GFR 73 ml/min/1.73sqm Normal DILSHDA [facility]LLON Comment on above: Result Comment: GFR [...] SNOWDEN MDW, MG, CBC, GFR, ANEU ####Dilshad Vrczvouaw5282 [place], [place] [address] GFR Non- 60 ml/min/1.73sqm Normal DILSHAD MASSILLON [...] SNOWDEN, EDD, MG, CBC, GFR, ANEU ####Dilshad Jxqbjoras8812 [place] [address] .MDWon 08-20-2024 Monocyte Distribution Width 18.14 Normal 0.00-20.00 [facility] Comment on above: Result Comment: For ED adult patients suspected of sepsis, MDW<=20.0 does not rule out sepsis or risk of sepsis Performed By: #### C MP, ADIFF, MDW, MG, CBC, GFR, ANEU #### Dilshad Dun[address] [place] [address] .NEUABSon 08-20-2024 Neutrophil, Absolute 3.6 10 3/mcL Normal 2.3-8.1 [facility] Comment on above: Performed By: #### C MP, ADIFF, MDW, MG, CBC, GFR, ANEU #### Dilshad Dun[address] [place] [address] CBCon 08-20-2024 Erythrocyte distribution width (RBC) [Ratio] 15.3 % Normal 11.5-15.5 [facility] Comment on above: Performed By: #### C MP, ADIFF, MDW, MG, CBC, GFR, ANEU #### Dilshad Dun[address] [place] [address] Hematocrit (Bld) [Volume fraction] 45.6 % Normal 34.0-46.0 [facility] Comment on above: Performed By: #### C MP, ADIFF, MDW, MG, CBC, GFR, ANEU #### Dilshad Dun[address] [place] [address] Hgb 15.6 G/dL Normal 12.0-16.0 [facility] Comment on above: Performed By: #### C MP, ADIFF, MDW, MG, CBC, GFR, ANEU #### Dilshad [address] [place] [address] MCH (RBC) [Entitic mass] 31.7 pg Normal 27.0-33.0 [facility] Comment on above: Performed By: #### C MP, ADIFF, MDW, MG, CBC, GFR, ANEU #### Dilshad Dun[address] [place], [place] [address] MCHC 34.3 G/dL Normal 32.0-36.0 DILSHAD MASSILLON Comment on above: Performed By: #### C MP, ADIFF, MDW, MG, CBC, GFR, ANEU #### Dilshad Ben [address] [place], [place] [address] MCV (RBC) [Entitic vol] 92.6 fL Normal 80.0-99.0 DILSHAD [facility]ON Comment on above: Performed By: #### C MP, ADIFF, MDW, MG, CBC, GFR, ANEU #### Dilshad Ben [address] [place], [place] [address] Platelet 140 10 3/mcL Low 150-450 DILSHAD [facility] Comment on above: Performed By: #### C MP, ADIFF, MDW, MG, CBC, GFR, ANEU #### Dilshad Ben [address] [place], [place] [address] Platelet mean volume (Bld) [Entitic vol] 6.7 fL Normal 6.6-10.5 DILSHAD MASSILLON Comment on above: Performed By: #### C MP, ADIFF, MDW, MG, CBC, GFR, ANEU #### Dilshad Ben [address] [place], [place] [address] RBC 4.92 10 6/mcL Normal 4.10-5.30 DILSHAD MASSILLON Comment on above: Performed By: #### C MP, ADIFF, MDW, MG, CBC, GFR, ANEU #### Dilshad Ben [address] [place], [place] [address] WBC 8.8 10 3/mcL Normal 4.5-10.8 DILSHAD MASSILLON Comment on above: Performed By: #### C MP, ADIFF, MDW, MG, CBC, GFR, ANEU #### Dlishad Ben [address] [place], [place] [address] CMPon 08-20-2024 Albumin Level 3.3 G/dL Low 3.5-5.0 DILSHAD MASSILLON Comment on above: Performed By: #### C MP, ADIFF, MDW, MG, CBC, GFR, ANEU ####Dilshad JohnsonRwprtuncp4971 [place], [place] [address] Albumin/Globulin [Mass ratio] 0.9 {ratio} Low 1.1-2.5 DILSHAD MASSILLON Comment on above: Performed By: #### C MP, ADIFF, MDW, MG, CBC, GFR, ANEU ####Dilshad Johnson[address] [place], [place] [address] ALP [Catalytic activity/Vol] 81 U/L Normal 40-135 DILSHAD MASSILLON Comment on above: Performed By: #### C MP, ADIFF, MDW, MG, CBC, GFR, ANEU ####Dilshad [address] [place] [id number] ALT [Catalytic activity/Vol] 19 U/L Normal 14-59 DILSHAD MASSILLON Comment on above: Performed By: #### C MP, ADIFF, MDW, MG, CBC, GFR, ANEU ####[address]ilshad [address] [place] [id number] AST [Catalytic activity/Vol] 16 U/L Normal 10-40 DILSHAD MASSILLON Comment on above: Performed By: #### C MP, ADIFF, MDW, MG, CBC, GFR, ANEU ####[address]ilshad [address] [place] [phone] Bili Total 0.6 mg/dL Normal 0.2-1.0 DILSHAD MASSILLON Comment on above: Result Comment: Use of this assay is not recommended for patients undergoing treatment with eltrombopag due to the potential for falsely elevated results. Performed By: #### C MP, ADIFF, MDW, MG, CBC, GFR, ANEU ####[address]ilshad [address] [place] [phone] BUN/Creatinine Ratio 12 ratio Normal 7-27 RHIANNON MAN MASSILLON Comment on above: Performed By: #### C MP, ADIFF, MDW, MG, CBC, GFR, ANEU ####[address]advazquez [address] [place] [phone] Calcium [Mass/Vol] 9.5 mg/dL Normal 8.4-10.2 AULTMA N MASSILLON Comment on above: Performed By: #### C MP, ADIFF, MDW, MG, CBC, GFR, ANEU ####Dilshad Johnson[address] [place], [place] [address] Chloride [Moles/Vol] 103 mmol/L Normal 98-107 RHIANNON MAN MASSILLON Comment on above: Performed By: #### C MP, ADIFF, MDW, MG, CBC, GFR, ANEU ####Dilshad JohnsonN[address] [place], [place] [address] CO2 [Moles/Vol] 32 mmol/L High 22-29 DILSHAD MASSILLON Comment on above: Performed By: #### C MP, ADIFF, MDW, MG, CBC, GFR, ANEU ####Dilshad JohnsonT[address] [place], [place] [address] Creatinine [Mass/Vol] 0.99 mg/dL Normal 0.55-1.02 AUL TMAN MASSILLON Comment on above: Result Comment: Test ing performed on [employer] Dimension EXL analyzer using a modified kinetic Marky technique. Performed By: #### C MP, ADIFF, MDW, MG, CBC, GFR, ANEU ####Dilshad JohnsonDfxvbczzb9436 [place], [place] [address] Electrolyte Balance 8.0 mEq/L Normal 4.0-15.0 AULTM AN MASSILLON Comment on above: Performed By: #### C MP, ADIFF, MDW, MG, CBC, GFR, ANEU ####Dilshad JohnsonUwhczwhfb4764 [place], [place] [address] Globulin 3.7 G/dL Normal DILSHAD MASSILLON Comment on above: Performed By: #### C MP, ADIFF, MDW, MG, CBC, GFR, ANEU ####Dilshad JohnsonWlxoiylbw0943 [place], [place] [address] Glucose [Mass/Vol] 118 mg/dL High 70-105 AULTMA N MASSILLON Comment on above: Performed By: #### C MP, ADIFF, MDW, MG, CBC, GFR, ANEU ####Dilshad Hevhwzprw8334 [place], [place] [address] Potassium [Moles/Vol] 2.8 mmol/L Low 3.5-5.1 AUL TMAN MASSILLON Comment on above: Performed By: #### C MP, ILIR, MDW, MG, CBC, GFR, ANEU ####Dilshad Lxxedoxob5304 [place], [place] [address] Sodium [Moles/Vol] 143 mmol/L Normal 136-145 AULTMA N MASSILLON Comment on above: Performed By: #### C MP, ADIFF, MDW, MG, CBC, GFR, ANEU ####Dilshad Oeihmydzk8419 [place], [place] [address] Total Protein 7.0 G/dL Normal 6.4-8.2 [facility] Comment on above: Performed By: #### C MP, ILIR, MDW, MG, CBC, GFR, ANEU ####[facility] [place] [address] Urea nitrogen [Mass/Vol] 12 mg/dL Normal 7-[address] [facility] Comment on above: Performed By: #### C MP, ILIR, MDW, MG, CBC, GFR, ANEU ####[facility] [place], [place] [address] MGon 08-20-2024 Magnesium [Mass/Vol] 2.0 mg/dL Normal 1.8-2.4 [facility] Comment on above: Performed By: #### C MP, ILIR, MDW, MG, CBC, GFR, ANEU #### [facility] [address] [place], [place] [address] .Auto Diffon 08-18-2024 Basophil, Absolute 0.0 10 3/mcL Normal 0.0-0.3 [facility] Comment on above: Performed By: #### F ES, GFR, FT3, ADIFF, A1C, CMP, CBC, TSH, ANEU, FT4 #### [facility] [address] [place] [address] Basophils/100 WBC (Bld) 0.3 % Normal 0.0-2.5 [facility] Comment on above: Performed By: #### F ES, GFR, FT3, ADIFF, A1C, CMP, CBC, TSH, ANEU, FT4 #### [address] [address] Eosinophil, Absolute 0.1 10 3/mcL Normal 0.0-0.7 [facility] Comment on above: Performed By: #### F ES, GFR, FT3, ADIFF, A1C, CMP, CBC, TSH, ANEU, FT4 #### [address] [address] Eosinophils/100 WBC (Bld) 1.2 % Normal 0.0-6.0 [facility] Comment on above: Performed By: #### F ES, GFR, FT3, ADIFF, A1C, CMP, CBC, TSH, ANEU, FT4 #### [address] [address] Lymphocyte, Absolute 3.4 10 3/mcL Normal 0.9-4.3 [facility] Comment on above: Performed By: #### F ES, GFR, FT3, ADIFF, A1C, CMP, CBC, TSH, ANEU, FT4 #### [address] [address] Lymphocytes/100 WBC (Bld) 43.7 % High 20.0-40.0 [facility] Comment on above: Performed By: #### F ES, GFR, FT3, ADIFF, A1C, CMP, CBC, TSH, ANEU, FT4 #### [address] [address] Monocyte, Absolute 0.9 10 3/mcL Normal 0.1-1.4 [facility] Comment on above: Performed By: #### F ES, GFR, FT3, ADIFF, A1C, CMP, CBC, TSH, ANEU, FT4 #### [address] [address] Monocytes/100 WBC (Bld) 11.5 % Normal 2.0-13.0 [facility] Comment on above: Performed By: #### F ES, GFR, FT3, ADIFF, A1C, CMP, CBC, TSH, ANEU, FT4 #### [address] [address] Neutrophils/100 WBC (Bld) 43.3 % Low 50.0-75.0 [facility] Comment on above: Performed By: #### F ES, GFR, FT3, ADIFF, A1C, CMP, CBC, TSH, ANEU, FT4 #### [address] [address] .GFRon 08-18-2024 GFR >60 [facility] Comment on above: Result Comment: [...] A1C, CMP, CBC, TSH, ANEU, FT4 #### [address] [address] GFR Non- >60 [facility] Comment on above: Result Comment: [...] A1C, CMP, CBC, TSH, ANEU, FT4 #### [place] [address] .NEUABSon 08-18-2024 Neutrophil, Absolute 3.3 10 3/mcL Normal 2.3-8.1 [facility] Comment on above: Performed By: #### F ES, GFR, FT3, ADIFF, A1C, CMP, CBC, TSH, ANEU, FT4 #### [place] [address] A1Con 08-18-2024 Glucose [Mass/Vol] 82 mg/dL Normal [facility] Comment on above: Result Comment: Chrissy mated Average Glucose calculated by equation ((28.7xA1C)-46.7) Estimated average glucose (eAG) is a calculated value from Hemoglobin A1C and is sales promotion representative of the average blood glucose level in the last 2-3 month period. Normal range: less than 114 mg/dL Performed By: #### F ES, GFR, FT3, ADIFF, A1C, CMP, CBC, TSH, ANEU, FT4 #### [place] [address] HbA1c (Bld) [Mass fraction] 4.5 % Normal 4.0-6.0 [facility] Comment on above: Performed By: #### F ES, GFR, FT3, ADIFF, A1C, CMP, CBC, TSH, ANEU, FT4 #### [place] [address] CBCon 08-18-2024 Erythrocyte distribution width (RBC) [Ratio] 15.1 % Normal 11.5-15.5 [facility] Comment on above: Performed By: #### F ES, GFR, FT3, ADIFF, A1C, CMP, CBC, TSH, ANEU, FT4 #### [place] [address] Hematocrit (Bld) [Volume fraction] 44.2 % Normal 34.0-46.0 [facility] Comment on above: Performed By: #### F ES, GFR, FT3, ADIFF, A1C, CMP, CBC, TSH, ANEU, FT4 #### [place] [address] Hgb 15.4 G/dL Normal 12.0-16.0 [facility] Comment on above: Performed By: #### F ES, GFR, FT3, ADIFF, A1C, CMP, CBC, TSH, ANEU, FT4 #### [place] [address] MCH (RBC) [Entitic mass] 32.1 pg Normal 27.0-33.0 [facility] Comment on above: Performed By: #### F ES, GFR, FT3, ADIFF, A1C, CMP, CBC, TSH, ANEU, FT4 #### [place] [address] MCHC 34.9 G/dL Normal 32.0-36.0 [facility] Comment on above: Performed By: #### F ES, GFR, FT3, ADIFF, A1C, CMP, CBC, TSH, ANEU, FT4 #### [place] [address] MCV (RBC) [Entitic vol] 92.0 fL Normal 80.0-99.0 [facility] Comment on above: Performed By: #### F ES, GFR, FT3, ADIFF, A1C, CMP, CBC, TSH, ANEU, FT4 #### [place] [address] Platelet 134 10 3/mcL Low 150-450 [facility] Comment on above: Performed By: #### F ES, GFR, FT3, ADIFF, A1C, CMP, CBC, TSH, ANEU, FT4 #### [place] [address] Platelet mean volume (Bld) [Entitic vol] 7.1 fL Normal 6.6-10.5 [facility] Comment on above: Performed By: #### F ES, GFR, FT3, ADIFF, A1C, CMP, CBC, TSH, ANEU, FT4 #### [place] [address] RBC 4.80 10 6/mcL Normal 4.10-5.30 [facility] Comment on above: Performed By: #### F ES, GFR, FT3, ADIFF, A1C, CMP, CBC, TSH, ANEU, FT4 #### [address] [address] WBC 7.7 10 3/mcL Normal 4.5-10.8 [facility] Comment on above: Performed By: #### F ES, GFR, FT3, ADIFF, A1C, CMP, CBC, TSH, ANEU, FT4 #### [address] [address] CMPon 08-18-2024 Albumin Level 3.2 G/dL Normal 3.2-4.8 [facility] Comment on above: Performed By: #### F ES, GFR, FT3, ADIFF, A1C, CMP, CBC, TSH, ANEU, FT4 #### [place] [address] Albumin/Globulin [Mass ratio] 0.9 {ratio} Normal 0.9-1.6 [facility] Comment on above: Performed By: #### F ES, GFR, FT3, ADIFF, A1C, CMP, CBC, TSH, ANEU, FT4 #### [address] [address] ALP [Catalytic activity/Vol] 71 U/L Normal 38-126 [facility] Comment on above: Performed By: #### F ES, GFR, FT3, ADIFF, A1C, CMP, CBC, TSH, ANEU, FT4 #### [address] [address] ALT [Catalytic activity/Vol] 18 U/L Normal 10-49 [facility] Comment on above: Performed By: #### F ES, GFR, FT3, ADIFF, A1C, CMP, CBC, TSH, ANEU, FT4 #### [address] [address] AST [Catalytic activity/Vol] 24 U/L Normal 8-34 [facility] Comment on above: Performed By: #### F ES, GFR, FT3, ADIFF, A1C, CMP, CBC, TSH, ANEU, FT4 #### [address] [address] Bili Total 0.80 mg/dL Normal 0.20-1.20 [facility] Comment on above: Result Comment: Use of this assay is not recommended for patients undergoing treatment with eltrombopag due to the potential for falsely elevated results. Performed By: #### F ES, GFR, FT3, ADIFF, A1C, CMP, CBC, TSH, ANEU, FT4 #### [place] [id number] BUN/Creatinine Ratio 13.2 ratio Normal 10.0-22.0 [facility] Comment on above: Performed By: #### F ES, GFR, FT3, ADIFF, A1C, CMP, CBC, TSH, ANEU, FT4 #### [place] [id number] Calcium [Mass/Vol] 9.2 mg/dL Normal 8.7-10.4 [facility] Comment on above: Performed By: #### F ES, GFR, FT3, ADIFF, A1C, CMP, CBC, TSH, ANEU, FT4 #### [place] [phone] Chloride [Moles/Vol] 106 mmol/L Normal 98-110 [facility] Comment on above: Performed By: #### F ES, GFR, FT3, ADIFF, A1C, CMP, CBC, TSH, ANEU, FT4 #### [address] [address] CO2 [Moles/Vol] 32 mmol/L Normal 22-32 [facility] Comment on above: Performed By: #### F ES, GFR, FT3, ADIFF, A1C, CMP, CBC, TSH, ANEU, FT4 #### [place] [phone] Creatinine [Mass/Vol] 0.68 mg/dL Normal 0.50-1.20 [facility] Comment on above: Result Comment: Test ing performed on Augmentra analyzer using enzymatic creatinine methodology. Performed By: #### F ES, GFR, FT3, ADIFF, A1C, CMP, CBC, TSH, ANEU, FT4 #### [place] [id number] Electrolyte Balance 8.0 mEq/L Normal 4.0-15.0 [facility] Comment on above: Performed By: #### F ES, GFR, FT3, ADIFF, A1C, CMP, CBC, TSH, ANEU, FT4 #### [address] [address] Globulin 3.5 G/dL Normal 1.5-3.8 [facility] Comment on above: Performed By: #### F ES, GFR, FT3, ADIFF, A1C, CMP, CBC, TSH, ANEU, FT4 #### [address] [address] Glucose [Mass/Vol] 75 mg/dL Normal 70-110 [facility] Comment on above: Performed By: #### F ES, GFR, FT3, ADIFF, A1C, CMP, CBC, TSH, ANEU, FT4 #### [address] [address] Potassium [Moles/Vol] 2.5 mmol/L Critically abnormal 3.5-5.0 [facility] Comment on above: Performed By: #### F ES, GFR, FT3, ADIFF, A1C, CMP, CBC, TSH, ANEU, FT4 #### [address] [address] Sodium [Moles/Vol] 146 mmol/L High 136-145 [facility] Comment on above: Performed By: #### F ES, GFR, FT3, ADIFF, A1C, CMP, CBC, TSH, ANEU, FT4 #### [address] [address] Total Protein 6.7 G/dL Normal 5.7-8.2 [facility] Comment on above: Performed By: #### F ES, GFR, FT3, ADIFF, A1C, CMP, CBC, TSH, ANEU, FT4 #### [address] [address] Urea nitrogen [Mass/Vol] 9.0 mg/dL Normal 8.0-22.0 [facility] Comment on above: Performed By: #### F ES, GFR, FT3, ADIFF, A1C, CMP, CBC, TSH, ANEU, FT4 #### [address] [address] FESon 08-18-2024 Iron [Mass/Vol] 121 ug/dL Normal 50-170 [facility] Comment on above: Performed By: #### F ES, GFR, FT3, ADIFF, A1C, CMP, CBC, TSH, ANEU, FT4 #### [place] [address] Iron Sat 37 % Normal [facility] Comment on above: Performed By: #### F ES, GFR, FT3, ADIFF, A1C, CMP, CBC, TSH, ANEU, FT4 #### [place] [address] TIBC 327 mcg/dL Normal 250-500 [facility] Comment on above: Performed By: #### F ES, GFR, FT3, ADIFF, A1C, CMP, CBC, TSH, ANEU, FT4 #### [place] [address] FT3on 08-18-2024 Free T3 [Mass/Vol] 3.10 pg/mL Normal 2.30-4.20 [facility] Comment on above: Performed By: #### F ES, GFR, FT3, ADIFF, A1C, CMP, CBC, TSH, ANEU, FT4 #### [place] [address] FT4on 08-18-2024 Free T4 [Mass/Vol] 1.43 ng/dL Normal 0.89-1.76 [facility] Comment on above: Result Comment: No te - New Reference Range in effect 20 Performed By: #### F ES, GFR, FT3, ADIFF, A1C, CMP, CBC, TSH, ANEU, FT4 #### [place] [address] LABORATORYOrdered By: SYSTEM SYSTEM on 08-18-2024 Albumin [...] above: Interpretive Data: T esting performed on Augmentra analyzer using enzymatic creatinine methodology. Electrolyte Balance [...] (S/P/Bld) [Vol rate/Area] ml/min/1.73sqm Invalid Interpretation Code [employer] Chemistry S Comment on above: Interpretive Data: [...] (S/P/Bld) [Vol rate/Area] ml/min/1.73sqm Invalid Interpretation Code [employer] Chemistry S Comment on above: Interpretive Data: [...] Glucose [Mass/Vol] 82 mg/dL Invalid Interpretation Code [employer] Chem SS Comment on above: Interpretive Data: E stimated average glucose (eAG) is a calculated value from Hemoglobin A1C and is sales promotion representative of the average blood glucose level [...] 08-18-2024 TSH 1.378 mIU/mL Normal 0.550-4.78 0 [facility] Comment on above: Performed By: #### F ES, GFR, FT3, ADIFF, A1C, CMP, CBC, TSH, ANEU, FT4 #### [facility] [address] [place] [address] TSHon 07-27-2024 TSH 0.971 mIU/mL Normal 0.550-4.78 0 DILSHAD MASSILLON Comment on above: Performed By: #### T SH ####[place] [address] .Auto Diffon 07-26-2024 Basophil, Absolute 0.0 10 3/mcL Normal 0.0-0.3 RHIANNON MAN MASSILLON Comment on above: Performed By: #### A DIFF, GFR, PRO, CMP, MG, CBC, TROPHS, APTT, MDW, ANEU ####[facility] ConnecticutAmtoygcly7061 [place], [place] [address] Basophils/100 WBC (Bld) 0.6 % Normal 0.0-2.5 DILSHAD MASSILLON Comment on above: Performed By: #### A DIFF, GFR, PRO, CMP, MG, CBC, TROPHS, APTT, MDW, ANEU ####[facility] [place], [place] [address] Eosinophil, Absolute 0.1 10 3/mcL Normal 0.0-0.7 AU LTMAN MASSILLON Comment on above: Performed By: #### A DIFF, GFR, PRO, CMP, MG, CBC, TROPHS, APTT, MDW, ANEU ####Dilshad Xfzcjsgbh5[address] [place], [place] [address] Eosinophils/100 WBC (Bld) 1.0 % Normal 0.0-6.0 DILSHAD MASSILLON Comment on above: Performed By: #### A DIFF, GFR, PRO, CMP, MG, CBC, TROPHS, APTT, MDW, ANEU ####Dilshad Ipjtqjpig3527 [place], [place] [address] Lymphocyte, Absolute 2.8 10 3/mcL Normal 0.9-4.3 AU LTMAN MASSILLON Comment on above: Performed By: #### A DIFF, GFR, PRO, CMP, MG, CBC, TROPHS, APTT, MDW, ANEU ####Dilshad Jtqswvujd4250 [place], [place] [address] Lymphocytes/100 WBC (Bld) 42.1 % High 20.0-40.0 DILSHAD MASSILLON Comment on above: Performed By: #### A DIFF, GFR, PRO, CMP, MG, CBC, TROPHS, APTT, MDW, ANEU ####Dilshad Vcdsucjyd4197 [place], [place] [address] Monocyte, Absolute 0.7 10 3/mcL Normal 0.1-1.4 RHIANNON MAN MASSILLON Comment on above: Performed By: #### A DIFF, GFR, PRO, CMP, MG, CBC, TROPHS, APTT, MDW, ANEU ####Dilshad Uihxmhngr5645 [place], [place] [address] Monocytes/100 WBC (Bld) 10.3 % Normal 2.0-13.0 DILSHAD MASSILLON Comment on above: Performed By: #### A DIFF, GFR, PRO, CMP, MG, CBC, TROPHS, APTT, MDW, ANEU ####Dilshad Kxlxwhfaz0762 [place], [place] [address] Neutrophils/100 WBC (Bld) 46.0 % Low 50.0-75.0 DILSHAD MASSILLON Comment on above: Performed By: #### A DIFF, GFR, PRO, CMP, MG, CBC, TROPHS, APTT, MDW, ANEU ####Dilshad Fmeyzlrkr3660 [place], [place] [address] .GFRon 07-26-2024 GFR 138 ml/min/1.73sqm Normal DILSHAD [...] Performed By: #### G FR, BMP ####Dilshad Ptpjwgnwe1012 [place], [place] [address] GFR Non- 114 ml/min/1.73sqm Normal DILSHAD MASSILLON [...] Performed By: #### G FR, BMP ####Dilshad Ssmmascrh3865 [place], [place] [address] GFR 91 ml/min/1.73sqm Normal DILSHAD MASSILLON Comment [...] CBC, GFR, ANEU #### Dilshad Ben [address] [place], [place] [address] GFR Non- 75 ml/min/1.73sqm Normal DILSHAD GUAN [...] CBC, GFR, ANEU #### Dilshad Ben [address] [place], [place] [address] .MDWon 07-26-2024 Monocyte Distribution Width 15.91 Normal 0.00-20.00 DILSHAD GUAN Comment on above: Result Comment: For ED adult patients suspected of sepsis, MDW<=20.0 does not rule out sepsis or risk of sepsis Performed By: #### A DIFF, GFR, PRO, CMP, MG, CBC, TROPHS, APTT, MDW, ANEU ####Dilshad JohnsonWkeuflrje9818 [place] [address] .NEUABSon 07-26-2024 Neutrophil, Absolute 3.1 10 3/mcL Normal 2.3-8.1 AU LTMAN MASSILLON Comment on above: Performed By: #### A DIFF, GFR, PRO, CMP, MG, CBC, TROPHS, APTT, MDW, ANEU ####Dilshad [address]w34[address] [place], [place] [address] APTTon 07-26-2024 aPTT Coag (Bld) [Time] 32.0 s Normal 25.0-35.0 DILSHAD MASSILLON Comment on above: Performed By: #### C MP, ADIFF, MDW, MG, CBC, GFR, ANEU #### Dilshad [address] [place] [id number] BMPon 07-26-2024 BUN/Creatinine Ratio 19 ratio Normal 7-27 RHIANNON MAN MASSILLON Comment on above: Performed By: #### G , BMP ####Dilshad Izbupvkbi5636 [place], [place] [address] Calcium [Mass/Vol] 8.1 mg/dL Low 8.4-10.2 AULTMA N MASSILLON Comment on above: Performed By: #### G , BMP ####Dilshad Zbmqfhrbx2698 [place] [id number] Chloride [Moles/Vol] 107 mmol/L Normal 98-107 RHIANNON MAN MASSILLON Comment on above: Performed By: #### G , BMP ####Dilshad Sgtethmgc6751 [place], [place] [address] CO2 [Moles/Vol] 32 mmol/L High 22-29 DILSHAD MASSILLON Comment on above: Performed By: #### G FR, BMP ####Dilshad Tafvbptvp8875 [place], [place] [address] Creatinine [Mass/Vol] 0.57 mg/dL Normal 0.55-1.02 AUL TMAN MASSILLON Comment on above: Result Comment: Test ing performed on Siemens Dimension EXL analyzer using a modified kinetic Marky technique. Performed By: #### G FR, BMP ####Dilshad Tyaptfpig6362 [place], [place] [address] Electrolyte Balance 9.0 mEq/L Normal 4.0-15.0 AULTM AN MASSILLON Comment on above: Performed By: #### Nani TREVINO, BMP ####Dilshad Ben[address] [place], [place] [address] Glucose [Mass/Vol] 98 mg/dL Normal 70-105 AULTMA N MASSILLON Comment on above: Performed By: #### G , BMP ####Dilshad Ben[address] [place], [place] [address] Potassium [Moles/Vol] 3.0 mmol/L Low 3.5-5.1 AUL TMAN MASSILLO Comment on above: Performed By: #### Nani TREVINO, BMP ####Dilshad Ben[address] [place] [phone] Sodium [Moles/Vol] 148 mmol/L High 136-145 AULTMA N MASSILLON Comment on above: Performed By: #### Nani TREVINO, BMP ####Dilshad Ben[address] [place], [place] [address] Urea nitrogen [Mass/Vol] 11 mg/dL Normal 7-18 DILSHAD MASSILLON Comment on above: Performed By: #### Nani TREVINO, BMP ####Dilshad Ben[address] [place], [place] [address] CBCon 07-26-2024 Erythrocyte distribution width (RBC) [Ratio] 14.3 % Normal 11.5-15.5 DILSHAD MASSILLON Comment on above: Performed By: #### A DIFF, GFR, PRO, CMP, MG, CBC, TROPHS, APTT, MDW, ANEU ####Dilshad Ben[address] [place], [place] [address] Hematocrit (Bld) [Volume fraction] 41.3 % Normal 34.0-46.0 DILSHAD MASSILLON Comment on above: Performed By: #### A DIFF, GFR, PRO, CMP, MG, CBC, TROPHS, APTT, MDW, ANEU ####Dilshad JohnsonPaiyfetjn0184 [place], [place] [address] Hgb 14.0 G/dL Normal 12.0-16.0 DILSHAD MASSILLON Comment on above: Performed By: #### A DIFF, GFR, PRO, CMP, MG, CBC, TROPHS, APTT, MDW, ANEU ####Dilshad JohnsonClckxypgr7145 [place] [address] MCH (RBC) [Entitic mass] 31.4 pg Normal 27.0-33.0 DILSHAD MASSILLON Comment on above: Performed By: #### A DIFF, GFR, PRO, CMP, MG, CBC, TROPHS, APTT, MDW, ANEU ####Dilshad [address]js[address] [place] [address] MCHC 33.9 G/dL Normal 32.0-36.0 DILSHAD MASSILLON Comment on above: Performed By: #### A DIFF, GFR, PRO, CMP, MG, CBC, TROPHS, APTT, MDW, ANEU ####Dilshad Ben[address] [place] [address] MCV (RBC) [Entitic vol] 92.6 fL Normal 80.0-99.0 DILSHAD MASSILLON Comment on above: Performed By: #### A DIFF, GFR, PRO, CMP, MG, CBC, TROPHS, APTT, MDW, ANEU ####Dilshad JohnsonVkawjwxtg2022 [place] [address] Platelet 132 10 3/mcL Low 150-450 DILSHAD MASSILLON Comment on above: Performed By: #### A DIFF, GFR, PRO, CMP, MG, CBC, TROPHS, APTT, MDW, ANEU ####Dilshad Vcizqzyro7[address] [place] [phone] Platelet mean volume (Bld) [Entitic vol] 7.2 fL Normal 6.6-10.5 DILSHAD MASSILLON Comment on above: Performed By: #### A DIFF, GFR, PRO, CMP, MG, CBC, TROPHS, APTT, MDW, ANEU ####Dilshad I[address]acqsvnt7783 [place] [address] RBC 4.46 10 6/mcL Normal 4.10-5.30 DILSHAD MASSILLON Comment on above: Performed By: #### A DIFF, GFR, PRO, CMP, MG, CBC, TROPHS, APTT, MDW, ANEU ####Dilshad Eqlvyulss4462 [place], [place] [address] WBC 6.7 10 3/mcL Normal 4.5-10.8 DILSHAD MASSILLON Comment on above: Performed By: #### A DIFF, GFR, PRO, CMP, MG, CBC, TROPHS, APTT, MDW, ANEU ####Dilshad Qovqmaruh9958 [place], [place] [address] CMPon 07-26-2024 Albumin Level 2.8 G/dL Low 3.5-5.0 DILSHAD MASSILLON Comment on above: Performed By: #### C MP, ADIFF, MDW, MG, CBC, GFR, ANEU #### Dilshad Johnsonillon [address] [place], [place] [address] Albumin/Globulin [Mass ratio] 0.9 {ratio} Low 1.1-2.[address] [facility] [address] [facility] [address] Comment on above: Performed By: #### C MP, ADIFF, MDW, MG, CBC, GFR, ANEU #### Dilshadvazquez JohnsonDunnegan [address] [place], [place] [address] ALP [Catalytic activity/Vol] 62 U/L Normal 40-[address] [facility] Comment on above: Performed By: #### C MP, ADIFF, MDW, MG, CBC, GFR, ANEU #### Dilshad Johnsonillon [address] [place], [place] [address] ALT [Catalytic activity/Vol] 19 U/L Normal 14-59 DILSHAD MASSILLO Comment on above: Performed By: #### C MP, ADIFF, MDW, MG, CBC, GFR, ANEU #### Dilshadvazquez JohnsonDunnegan [address] [place], [place] [address] AST [Catalytic activity/Vol] 12 U/L Normal 10-40 DILSHAD MASSILLO Comment on above: Performed By: #### C MP, ADIFF, MDW, MG, CBC, GFR, ANEU #### Dilshad [address] [place], [place] [address] Bili Total 0.5 mg/dL Normal 0.2-1.0 DILSHAD MASSILLON Comment on above: Result Comment: Use of this assay is not recommended for patients undergoing treatment with eltrombopag due to the potential for falsely elevated results. Performed By: #### C MP, ADIFF, MDW, MG, CBC, GFR, ANEU #### Dilshad [address] [place], [place] [address] BUN/Creatinine Ratio 13 ratio Normal 7-27 RHIANNON MAN MASSILLON Comment on above: Performed By: #### C MP, ADIFF, MDW, MG, CBC, GFR, ANEU #### [facility] [address] [place], [place] [address] Calcium [Mass/Vol] 8.5 mg/dL Normal 8.4-10.2 AULTMA N MASSILLON Comment on above: Performed By: #### C MP, ADIFF, MDW, MG, CBC, GFR, ANEU #### [facility] [address] [place], [place] [address] Chloride [Moles/Vol] 107 mmol/L Normal 98-107 RHIANNON MAN MASSILLON Comment on above: Performed By: #### C MP, ADIFF, MDW, MG, CBC, GFR, ANEU #### Dilshad [address] [place], [place] [address] CO2 [Moles/Vol] 32 mmol/L High 22-29 DILSHAD MASSILLO Comment on above: Performed By: #### C MP, ADIFF, MDW, MG, CBC, GFR, ANEU #### [facility] [address] [place], [place] [address] Creatinine [Mass/Vol] 0.82 mg/dL Normal 0.55-1.02 AUL TMAN MASSILLO Comment on above: Result Comment: Test ing performed on Siemens Dimension EXL analyzer using a modified kinetic Marky technique. Performed By: #### C MP, ADIFF, MDW, MG, CBC, GFR, ANEU #### Dilshad [address] [place], [place] [address] Electrolyte Balance 10.0 mEq/L Normal 4.0-15.0 AULTM AN MASSILLON Comment on above: Performed By: #### C ILIR SNOWDEN MDW, MG, CBC, GFR, ANEU #### Dilshad [address] [place], [place] [address] Globulin 3.0 G/dL Normal DILSHAD MASSILLON Comment on above: Performed By: #### C ISI, ILIR, W, MG, CBC, GFR, ANEU #### Dilshadv[address] [place], [place] [address] Glucose [Mass/Vol] 123 mg/dL High 70-105 AULTMA N MASSILLON Comment on above: Performed By: #### C ISI, ILIR, MDW, MG, CBC, GFR, ANEU #### [address]shadv[address]quez [address] [place], [place] [address] Potassium [Moles/Vol] 2.6 mmol/L Critically abnormal 3.5-5.1 DILSHAD MASSILLON Comment on above: Performed By: #### C ILIR SNOWDEN MDW, MG, CBC, GFR, ANEU #### Dilshad [address] [place], [place] [address] Sodium [Moles/Vol] 149 mmol/L High 136-145 AULTMA N MASSILLON Comment on above: Performed By: #### C ILIR SNOWDEN MDW, MG, CBC, GFR, ANEU #### [address]shad [address] [place], [place] [address] Total Protein 5.8 G/dL Low 6.4-8.2 DILSHAD MASSILLON Comment on above: Performed By: #### C ILIR SNOWDEN MDW, MG, CBC, GFR, ANEU #### Dilshad [address] [place], [place] [address] Urea nitrogen [Mass/Vol] 11 mg/dL Normal 7-18 DILSHAD MASSILLON Comment on above: Performed By: #### C ILIR SNOWDEN MDW, MG, CBC, GFR, ANEU #### [address]adv[address] [place], [place] [address] MGon 07-26-2024 Magnesium [Mass/Vol] 2.0 mg/dL Normal 1.8-2.4 RHIANNON MAN MASSILLON Comment on above: Performed By: #### C ILIR SNOWDEN MDW, MG, CBC, GFR, ANEU #### Dilshad Ben [address] [place], [place] [address] PROon 07-26-2024 PT Coag (PPP) [Time] 12.7 s Normal 9.0-14.4 [facility] Comment on above: Performed By: #### C ISI, EDD HAZEL, MG, CBC, GFR, ANEU #### Dilshad Ben [address] [place], [place] [address] PT International Ratio 1.1 Normal [facility] Comment on above: Result Comment: The [employer] (CHEST, 1992, 102:312S-25S) recommended therapeutic range for oral anticoagulant therapy is: LOW RISK: Prophylaxis of venous thrombosis INR: 2.0-3.0 Treatment of pulmonary embolism 2.0-3.0 Prevention of systemic embolism 2.0-3.0 HIGH RISK: Mechanical prosthetic valves 2.5-3.5 Performed By: #### C ILIR SNOWDEN MDW, MG, CBC, GFR, ANEU #### Dilshad Ben [address] [place], [place] [address] TROPHSon 07-26-2024 High Sensitivity Troponin I 6 ng/L Normal 0-51 [facility] Comment on above: Result Comment: High Sensitive Troponin I Reference Ranges: Female: 0-51 ng/L Male: 0-76 ng/L Testing performed on Dimension EXL using a homogeneous sandwich chemiluminescent immunoassay based on [employer] technology. Performed By: #### T FARA ####Dilshad JohnsonUegblvwji7417 [place], [place] [address] High Sensitivity Troponin I 6 ng/L Normal 0-51 [facility] Comment on above: Result Comment: High Sensitive Troponin I Reference Ranges: Female: 0-51 ng/L Male: 0-76 ng/L Testing performed on Dimension EXL using a homogeneous sandwich chemiluminescent immunoassay based on [employer] technology. Performed By: #### C ISI, ILIR, EDD, MG, CBC, GFR, ANEU #### Dilshad Ben [address] [place], [place] [address] UAon 07-26-2024 Color (U) Yellow Normal [facility] Comment on above: Performed By: #### U AMIC, UA ####Dilshad Aeohogkhr[address] [place] [address] Glucose (U) [Mass/Vol] Negative Normal Negative [facility] Comment on above: Performed By: #### U AMIC, UA ####Dilshad Liwtpjlby5[address] [place] [address] Ketones Ql (U) Trace Normal Neg-Trace [facility] Comment on above: Performed By: #### U AMIC, UA ####Dilshad Rgflmhctf0732 [place] [address] UA Appear Cloudy Abnormal [facility] Comment on above: Performed By: #### U AMIC, UA ####Dilshad Uafhaunog8033 [place] [address] UA Blood Trace Normal Neg-Trace [facility] Comment on above: Performed By: #### U AMIC, UA ####Dilshad Cpytkhggw0166 [place] [address] UA Leuk Est Negative Normal Negative [facility] Comment on above: Performed By: #### U AMIC, UA ####Dilshad Yrxmkycje1418 [place] [address] UA Nitrite Negative Normal Negative [facility] Comment on above: Performed By: #### U AMIC, UA ####Dilshad Buxexhkox6080 [place] [address] UA pH 7.0 Normal 5.0 - 8.0 [facility] Comment on above: Performed By: #### U AMIC, UA ####Dilshad Eulvrghcq7997 [place] [address] UA Protein Trace Normal Negative [facility] Comment on above: Performed By: #### U AMIC, UA ####Dilshad Bfkzzksip9805 [place] [address] UA Spec Grav 1.020 Normal [facility] Comment on above: Performed By: #### U AMIC, UA ####Dilshad Rqmmlrnbg4574 [place] [address] UA Specimen Type Void Normal [facility] Comment on above: Performed By: #### U AMIC, UA ####Dilshad Lpimkjuuo8708 [place] [address] UA Urobilinogen 4.0 E.U./dL Abnormal [facility] Comment on above: Performed By: #### U AMIC, UA ####Dilshad Xmbuzeznz5602 [place] [address] Urobilinogen (U) [Mass/Vol] Negative Normal Neg-Trace [facility] Comment on above: Performed By: #### U AMIC, UA ####Dilshad Zhsxhgcpf6709 [place] [address] UAMICon 07-26-2024 UA Amorphus 2+ /hpf Normal [facility] Comment on above: Performed By: #### U AMIC, UA ####Dilshad Yfqdbrrcy8319 [place] [address] UA Bacteria Trace Abnormal Negative [facility] Comment on above: Performed By: #### U AMIC, UA ####Dilshad Munffrwvh9012 [place] [address] UA Mucous Trace Normal [facility] Comment on above: Performed By: #### U AMIC, UA ####Dilshad Qnergqpfr1793 [place] [address] UA RBC 5-10 Abnormal 0-2 [facility] Comment on above: Performed By: #### U AMIC, UA ####Dilshad Hkgzdhhcs6562 [place] [address] UA Squam Epithelial 0-2 Normal 0-20 [facility] Comment on above: Performed By: #### U AMIC, UA ####Dilshad Kdelrcbeh2709 [place] [address] UA WBC 3-5 Normal 0-5 [facility] Comment on above: Performed By: #### U AMIC, UA ####Dilshad Ben[address] [place], [place] [address] XR CHEST 2 VIEWSon 5 XR CHEST [...] DILSHAD GUAN 36on 06-04-2024 [address] [facility] 36 Name of Caller: Nate bender Contact Reason for Appointment: Barbara called because they received a letter stating there was a missed appointment. She said they called prior and after. Sharla has her own ENT. Please make note she has another provider for ENT and will not be making another appointment. Please advise. Office Name: [facility] 36on 05-07-2024 36 Name of caller: Nate bender Contact phone number: [phone] Relationship to Patient: Caregiver - Alpha Personal Care Provider: Lisette Jesus PA-C Practice: [facility] Chief Complaint/Reason for Call: Annie called in regarding Sharla's 05/01/24 3:00 PM missed new patient appointment, and states that Sharla had an appointment with Dr. Peggy Howard at [facility] on 04/11 and did not wish to reschedule with [facility] MICHELLE Gonsalves at this time. Please be advised. Best time of day caller can be reached: Any Patient advised that office/PCP has 24-48 business hours to return their call: Yes Normal [facility] Bacteria Ur Culton 4 Bacteria identified Cx Nom (U) CULTURE, URINE: <10,000 CFU/ml Normal Urogenital Hailey Normal [facility] Comment on above: Performed By: #### 6 30-4 ####[facility]ATORYCLIA [id number] [place] [address] [place] CNOVon 04-09-2024 CNOV Normal [facility] HCG ( test) Ql (U)o n 04-09-2024 Interpretation and review of laboratory results Normal [facility] HCG Preg Ur Qlon 04-09-2024 HCG ( test) Ql (U) Negative Normal Negative [facility] Comment on above: Order Comment: Speci men Type: URINE SPECIMENOrdering Facility: [facility] Address: [address] [place] [address] Result Comment: This test is intended to aid in the early detection of . Very dilute urine samples, as indicated by a low specific gravity, may not contain sales promotion representative levels of hCG. This test detects [...] . Performed By: #### U A, 2106-3 ####[facility] LABCLIA [id number] [place] [address] [place] HCG, QUALITATIVE, URINE PREG NANCYon 04-09-2024 HCG ( test) Ql (U) Negative Negative [facility] Comment on above: This test is intende d to aid in the early detection of . Very dilute urine samples, as indicated by a low specific gravity, may not contain sales promotion representative levels of hCG. This test detects [...] on 04-09-2024 Bilirubin Ql (U) Negative Negative [facility] Clarity (Unsp spec) Clear Clear [facility] Color (U) Straw Yellow [facility] Glucose Test strip (U) [Mass/Vol] Negative Negative [facility] Hemoglobin Ql (U) Negative Negative [facility] Interpretation and review of laboratory results Normal [facility] Ketones Ql (U) Negative Negative [facility] Leukocyte esterase Test strip Ql (U) Negative Negative [facility] Nitrite Ql (U) Negative Negative [facility] pH (U) 6.0 [pH] 5.0 - 8.0 [facility] Protein (U) [Mass/Vol] Negative Negative [facility] Specific gravity (U) [Rel density] 1.005 1.005 - 1.030 [facility] Urobilinogen Ql (U) Negative Negative [facility] URINALYSIS, DIPSTICK ONLYon 04-09-2024 Bilirubin Ql (U) Negative Normal Negative [facility] Comment on above: Order Comment: Speci men Type: URINE SPECIMENOrdering Facility: [facility] Address: [address] [place] [address] Performed By: #### U 2105-09 ####[facility] LABIA [id number] [address] Clarity (Unsp spec) Clear Normal Clear [facility] Comment on above: Order Comment: Speci men Type: URINE SPECIMENOrdering Facility: [facility] Address: [address] [place] [address] Performed By: #### U 2105-09 ####[facility] LABCLIA [id number] [address] [place] Color (U) Straw Normal Yellow [facility] Comment on above: Order Comment: Speci men Type: URINE SPECIMENOrdering Facility: [facility] Address: [address] [place] [address] Performed By: #### U A, 2105-09 ####[facility] LABCLIA [id number] [address] Glucose Test strip (U) [Mass/Vol] Negative Normal Negative [facility] Comment on above: Order Comment: Speci men Type: URINE SPECIMENOrdering Facility: [facility] Address: [address] [place] [address] Performed By: #### U A, 2105-09 ####[facility] LABCLIA [id number] [address] Hemoglobin Ql (U) Negative Normal Negative [facility] Comment on above: Order Comment: Speci men Type: URINE SPECIMENOrdering Facility: [facility] Address: [address] [place] [address] Performed By: #### U A, 2105-09 ####[facility] LABCLIA [id number] [address] Ketones Ql (U) Negative Normal Negative [facility] Comment on above: Order Comment: Speci men Type: URINE SPECIMENOrdering Facility: [facility] Address: [address] [place] [address] Performed By: #### U A, 2105-09 ####[facility] LABCLIA [id number] [address] Leukocyte esterase Test strip Ql (U) Negative Normal Negative [facility] Comment on above: Order Comment: Speci men Type: URINE SPECIMENOrdering Facility: [facility] Address: [address] [place] [address] Performed By: #### U A, 2105-09 ####[facility] LABCLIA [id number] [address] [place] Nitrite Ql (U) Negative Normal Negative [facility] Comment on above: Order Comment: Speci men Type: URINE SPECIMENOrdering Facility: [facility] Address: [address] [place] [address] Performed By: #### U A, 2105-09 ####[facility] LABCLIA [id number] [address] [place] pH (U) 6.0 [pH] Normal 5.0-8.0 [facility] Comment on above: Order Comment: Speci men Type: URINE SPECIMENOrdering Facility: [facility] Address: [address] [place] [address] Performed By: #### U A, 2105-09 ####TOMEKAOscar AYDEE [facility] LABCLIA [id number] [address] Protein (U) [Mass/Vol] Negative Normal Negative [facility] Comment on above: Order Comment: Speci men Type: URINE SPECIMENOrdering Facility: [facility] Address: [address] [place] [address] Performed By: #### U A, 2105-09 ####JANNY BAJWA [facility] LABCLIA [id number] [address] Specific gravity (U) [Rel density] 1.005 Normal 1.005-1.03 0 [facility] Comment on above: Order Comment: Speci men Type: URINE SPECIMENOrdering Facility: [facility] Address: [address] [place] [address] Performed By: #### U A, 2105-09 ####[facility]ANNY BAJWA [facility] LABCLIA [id number] [address] Urobilinogen Ql (U) Negative Normal Negative [facility] Comment on above: Order Comment: Speci men Type: URINE SPECIMENOrdering Facility: [facility] Address: [address] [place] [address] Performed By: #### U A, 2105-09 ####[facility] LABCLIA [id number] [place] [address] [place] CBC (HEMOGRAM)on 03-26-2024 Erythrocyte distribution width (RBC) [Ratio] 13.9 % Normal 11.5-15.0 [facility] Comment on above: Performed By: #### L AB294 ####[employer] Firer: LOCO CRUZ ([id number])[facility] [employer] ([facility])[address] [place] [address] Hematocrit (Bld) [Volume fraction] 44.8 % Normal 35.0-47.0 [facility] Comment on above: Performed By: #### L AB294 ####[employer] Firer: LOCO CRUZ ([id number])[facility] [employer] ([facility])[address] Hemoglobin (Bld) [Mass/Vol] 15.3 g/dL Normal 11.7-16.0 [facility] Comment on above: Performed By: #### L AB294 ####[employer] Firer: LOCO CRUZ ([id number])[facility] [employer] ([facility])[address] MCH (RBC) [Entitic mass] 31.9 pg Normal 26.0-34.0 [facility] Comment on above: Performed By: #### L AB294 ####[employer] Firer: LOCO CRUZ ([id number])[facility] [employer] ([facility])[address] MCHC 34.2 % Normal 30.5-36.0 [facility] Comment on above: Performed By: #### L AB294 ####[employer] Firer: LOCO CRUZ ([id number])[facility] [employer] ([facility])[address] [place] [address] [facility] MCV (RBC) [Entitic vol] 93.3 fL Normal 77.0-99.0 [facility] Comment on above: Performed By: #### L AB294 ####[employer] Firer: LOCO CRUZ ([id number])[facility] FLOWER HOSPITALCibandoS ([facility])[address] Platelet mean volume (Bld) [Entitic vol] 9.2 fL Normal 9.0-12.7 [facility] Comment on above: Result Comment: MPV is a calculated measurement using platelet volume ratio Performed By: #### L AB294 ####[employer] Firer: LOCO CRUZ ([id number])[facility] CENTERSarentis TherapeuticsS ([facility])[address] Platelets (Bld) [#/Vol] 166 10*3/uL Normal 140-440 [facility] Comment on above: Performed By: #### L AB294 ####[employer] Firer: LOCO CRUZ ([id number])[facility] FL[facility] HOSPITALCibandoS ([facility])[address] RBC (Bld) [#/Vol] 4.80 10*6/uL Normal 3.80-5.20 [facility] Comment on above: Performed By: #### L AB294 ####[employer] Firer: LOCO CRUZ ([id number])[facility]ERSarentis Therapeutics ([facility])[address] WBC (Bld) [#/Vol] 7.7 10*3/uL Normal 3.6-10.7 [facility] Comment on above: Performed By: #### L AB294 ####[employer] Firer: LOCO CRUZ ([id number])[facility] HOSPITALCibando ([facility])[address] CBC panel Auto (Bld)on 03-26 Erythrocyte distribution width (RBC) [Ratio] 13.9 % 11.5 - 15.0 % [facility] Hematocrit (Bld) [Volume fraction] 44.8 % 35.0 - 47.0 % [facility] Hemoglobin (Bld) [Mass/Vol] 15.3 g/dL 11.7 - 16.0 g/dL [facility] Interpretation and review of laboratory results Normal [facility] MCH (RBC) [Entitic mass] 31.9 pg 26.0 - 34.0 pg [facility] MCHC (RBC) [Mass/Vol] 34.2 % 30.5 - 36.0 % [facility] MCV (RBC) [Entitic vol] 93.3 fL 77.0 - 99.0 fL [facility] Platelet mean volume (Bld) [Entitic vol] 9.2 fL 9.0 - 12.7 fL [facility] Comment on above: MPV is a calculated measurement using platelet volume ratio Platelets (Bld) [#/Vol] 166 10*3/uL 140 - 440 10*3/uL [facility] RBC (Bld) [#/Vol] 4.80 10*6/uL 3.80 - 5.20 10*6/uL [facility] WBC (Bld) [#/Vol] 7.7 10*3/uL 3.6 - 10.7 10*3/uL [facility] COMPLETE URINALYSISon 2023 BACTERIA (#/HPF) IN URINE Negative Normal Negative [facility] Comment on above: Performed By: #### L [id number] ####[employer] Firer: LOCO CRUZ ([id number])[facility] ([facility])[address] BILIRUBIN, TOTAL PRESENCE IN URINE Negative Normal Negative [facility] Comment on above: Performed By: #### L AB347 ####[employer] Firer: LOCO CRUZ ([id number])[facility] [employer] ([facility])[address] Clarity (U) Clear Normal Clear [facility] Comment on above: Performed By: #### L AB347 ####[employer] Firer: LOCO CRUZ ([id number])[facility] ([facility])[address] Color (U) Dark Yellow Abnormal Lt. Yellow [facility] Comment on above: Performed By: #### L AB347 ####[employer] Firer: LOCO CRUZ ([id number])[facility] ([facility])[address] [place] [address] [place] GLUCOSE (MG/DL) IN URINE Normal Normal Normal (<70) [facility] Comment on above: Performed By: #### L AB347 ####[employer] Firer: LOCO CRUZ ([id number])[facility] ([facility])[address] HEMOGLOBIN PRESENCE IN URINE Negative Normal Negative [facility] Comment on above: Performed By: #### L AB347 ####[employer] Firer: LOCO CRUZ ([id number])[facility] ([facility])[address] Ketones Ql (U) 20 mg/dL Abnormal Negative [facility] Comment on above: Performed By: #### L AB347 ####[employer] Firer: LOCO CRUZ ([id number])[facility] ([facility])[address] [place] [address] [facility] LEUKOCYTE ESTERASE PRESENCE IN URINE BY TEST STRIP Negative Normal Negative [facility] Comment on above: Performed By: #### L AB347 ####[employer] Firer: LOCO CRUZ ([id number])[facility] ([facility])[address] [place] [address] [place] MUCUS (#/LPF) IN URINE SEDIMENT Moderate Abnormal Negative [facility] Comment on above: Performed By: #### L AB347 ####[employer] Firer: LOCO CRUZ ([id number])[facility] ([facility])[address] [place] [address] [place] NITRITE PRESENCE IN URINE Negative Normal Negative [facility] Comment on above: Performed By: #### L AB347 ####[employer] Firer: LOCO CRUZ ([id number])[facility] ([facility])[address] pH (U) 6.0 [pH] Normal 5.0-8.0 [facility] Comment on above: Performed By: #### L AB347 ####[employer] Firer: LOCO CRUZ ([id number])[facility] ([facility])[address] Protein (U) [Mass/Vol] 30 mg/dL Abnormal Negative [facility] Comment on above: Performed By: #### L [id number] ####[employer] Firer: LOCO CRUZ ([id number])[facility] ([facility])[address] RBC (#/HPF) IN URINE SEDIMENT 0-2 Normal 0-2 [facility] Comment on above: Performed By: #### L AB347 ####[employer] Firer: LOCO CRUZ ([id number])[facility] ([facility])[address] Specific gravity (U) [Rel density] 1.035 High 1.005-1.03 0 [facility] Comment on above: Performed By: #### L AB347 ####[employer] Firer: LOCO CRUZ ([id number])[facility] ([facility])[address] Specimen volume (U) 12 mL Normal [facility] Comment on above: Performed By: #### L AB347 ####[employer] Firer: LOCO CRUZ ([id number])[facility] ([facility])[address] SQUAMOUS EPITHELIAL CELLS (#/HPF) IN URINE SEDIMENT 3-5 Normal 3-5 [facility] Comment on above: Performed By: #### L AB347 ####[employer] Firer: LOCO CRUZ ([id number])[facility] ([facility])[address] UROBILINOGEN (MG/DL) IN URINE 3 mg/dL Abnormal Normal (0-1) [facility] Comment on above: Performed By: #### L AB347 ####[employer] Firer: LOCO CRUZ ([id number])[facility] ([facility])[address] WBC (LEUKOCYTE) (#/HPF) IN URINE SEDIMENT 3-5 Normal 0-5 [facility] Comment on above: Performed By: #### L AB347 ####[employer] Firer: LOCO CRUZ ([id number])[facility] ([facility])[address] COMPREHENSIVE METABOLIC PANE Duong 03-26-2024 Albumin [Mass/Vol] 4.0 g/dL Normal 3.5-5.0 [facility] Comment on above: Performed By: #### L AB17, WHB674, LAB99, IML874, FLO519 #### [employer] Firer: LOCO CRUZ ([id number]) [facility] ([facility]) [address] ALP [Catalytic activity/Vol] 95 U/L Normal 38-126 [facility] Comment on above: Performed By: #### L AB17, EAW932, LAB99, PII613, SXV911 #### [employer] Firer: LOCO CRUZ ([id number]) [facility] ([facility] [address] [place] [address] [place] ALT [Catalytic activity/Vol] 55 U/L High 0-34 [facility] Comment on above: Performed By: #### L AB17, NBR233, LAB99, IMJ295, ZDT715 #### [employer] Firer: LOCO CRUZ ([id number]) [facility] ([facility]) [address] [place] [address] [facility] Anion gap [Moles/Vol] 9 mmol/L Normal 3-13 [facility] Comment on above: Performed By: #### L AB17, XCA994, LAB99, CZN022, GOG595 #### [employer] Firer: LOCO CRUZ ([id number]) [facility] ([facility]) [address] [place] [id number] AST [Catalytic activity/Vol] 99 U/L High 15-46 [facility] Comment on above: Performed By: #### L AB17, FSQ711, LAB99, YQX588, WHE362 #### [employer] Firer: LOCO CRUZ ([id number]) [facility] ([facility]) [address] [place] [id number] [facility] Bilirubin [Mass/Vol] 1.2 mg/dL Normal 0.2-1.3 [facility] Comment on above: Performed By: #### L AB17, ENP433, LAB99, UAF403, UKH992 #### [employer] Firer: LOCO CRUZ ([id number]) [facility] ([facility] [address] Calcium [Mass/Vol] 9.2 mg/dL Normal 8.4-10.4 [facility] Comment on above: Performed By: #### L AB17, PID687, LAB99, GHW861, AUW323 #### [employer] Firer: LOCO CRUZ ([id number]) [facility] ([facility] [address] [place] [address] [place] Chloride [Moles/Vol] 105 mmol/L Normal 98-107 [facility] Comment on above: Performed By: #### L AB17, LDC386, LAB99, GVV495, LZL434 #### [employer] Firer: LOCO CRUZ ([id number]) [facility] ([facility]) [address] [place] [address] [facility] CO2 [Moles/Vol] 25 mmol/L Normal 22-30 [facility] Comment on above: Performed By: #### L AB17, TGC392, LAB99, CTL982, TXD041 #### [employer] Firer: LOCO CRUZ ([id number]) [facility] ([facility]) [address] [place] [id number] [facility] Creatinine [Mass/Vol] 0.78 mg/dL Normal 0.52-1.04 [facility] Comment on above: Performed By: #### L AB17, PXA879, LAB99, AED130, QMR185 #### Diesel Locomotive Firer: LOCO CRUZ ([id number]) [facility] ([facility]) [address] GLOMERULAR FILTRATION RATE ML/MIN/1.73 SQ M.PREDICTED >90.0 Normal >60.0 [facility] Comment on above: Result Comment: Calc ulation based on the Chronic Kidney Disease Epidemiology Collaboration (CKD-EPI) equation refit without adjustment for race Performed By: #### Carolynn AB17, EFY903, LAB99, SHB878, MSJ972 #### Diesel Locomotive Firer: LOCO CRUZ ([id number]) [facility] [address] [place] [address] [place] Glucose [Mass/Vol] 99 mg/dL Normal 70-100 [facility] Comment on above: Performed By: #### L AB17, QLD032, LAB99, LLR556, SRT773 #### Diesel Locomotive Firer: LOCO CRUZ ([id number]) [facility] [address] [place] [address] [place] Potassium [Moles/Vol] 3.3 mmol/L Low 3.5-5.1 [facility] Comment on above: Performed By: #### L AB17, VRL865, LAB99, OSQ628, FXX241 #### Diesel Locomotive Firer: LOCO CRUZ ([id number]) [facility] [address] Protein [Mass/Vol] 7.2 g/dL Normal 6.3-8.2 [facility] Comment on above: Performed By: #### L AB17, JJR314, LAB99, VZV445, CCE745 #### Diesel Locomotive Firer: LOCO CRUZ ([id number]) [facility] [address] Sodium [Moles/Vol] 139 mmol/L Normal 135-145 [facility] Comment on above: Performed By: #### L AB17, EVZ725, LAB99, JPR492, EDC368 #### Diesel Locomotive Firer: LOCO CRUZ ([id number]) [facility] ([facility]) [address] Urea nitrogen [Mass/Vol] 17 mg/dL Normal 7-17 [facility] Comment on above: Performed By: #### L AB17, TEB422, LAB99, BOX023, JVK343 #### Diesel Locomotive Firer: LOCO CRUZ ([id number]) [facility] ([facility]) [address] [place] [address] CT ABDOMEN PELVIS WO IV 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 No evidence for c alcified collecting system calculi or obstruction. 2. Sigmoid diverticulosis without evidence of diverticulitis. 3. No evidence of mass, lymphadenopathy or inflammatory process. Report Dictated on Electronically Signed By: Jaron Ro MD Electronically Signed Date/Time: 03/26/2024 3:29 PM [facility] RADIOLOGY SYSTEM Patient Name: SHARLA JOINER : 1975 [facility]#: [id number] Exam Date/Time: 03/26/2024 15:18 Procedure: CT ABDOMEN [...] No ascites or inflammatory changes are identified. [facility] EMERGENCY DEPARTMENT RADIOLOGY SYSTEM Jaron Ro MD - 03/26/2024 Patient Name: SHARLA JOINER : 1975 [facility]#: [id number] Exam Date/Time: 03/26/2024 15:18 Procedure: CT ABDOMEN [...] Electronically Signed Date/Time: 03/26/2024 3:29 PM EDT [facility] Radiology Study observation (narrative) [facility] CT Abdomen WO contrastOrdere d By: Jaron oR on 03-26-2024 [facility] Work Phone: Comprehensive metabolic 1998 panelon 03-26-2024 Albumin [Mass/Vol] 4.0 g/dL 3.5 - 5.0 g/dL [facility] ALP [Catalytic activity/Vol] 95 U/L 38 - 126 U/L [facility] ALT [Catalytic activity/Vol] 55 U/L High 0 - 34 U/L [facility] Anion gap [Moles/Vol] 9 mmol/L 3 - 13 mmol/L [facility] AST [Catalytic activity/Vol] 99 U/L High 15 - 46 U/L [facility] Bilirubin [Mass/Vol] 1.2 mg/dL 0.2 - 1 .3 mg/dL [facility] Calcium [Mass/Vol] 9.2 mg/dL 8.4 - 10. 4 mg/dL [facility] Chloride [Moles/Vol] 105 mmol/L 98 - 10 7 mmol/L [facility] CO2 [Moles/Vol] 25 mmol/L 22 - 30 mmol/L [facility] Creatinine [Mass/Vol] 0.78 mg/dL 0.52 - 1.04 mg/dL [facility] GFR/1.73 sq M.predicted (S/P/Bld) [Vol rate/Area] - PINF [facility] Comment on above: Calculation based on the Chronic Kidney Disease Epidemiology Collaboration (CKD-EPI) equation refit without adjustment for race Glucose [Mass/Vol] 99 mg/dL 70 - 100 mg/dL [facility] Interpretation and review of laboratory results Abnormal [facility] Potassium [Moles/Vol] 3.3 mmol/L Low 3.5 - 5.1 mmol/L [facility] Protein [Mass/Vol] 7.2 g/dL 6.3 - 8.2 g/dL [facility] Sodium [Moles/Vol] 139 mmol/L 135 - 145 mmol/L [facility] Urea nitrogen [Mass/Vol] 17 mg/dL 7 - 17 mg/dL [facility] ECG 12-LEADon 03-26-2024 ECG 12-LEAD IMPRESSION: Sinus tachycardia Borderline prolonged QT interval no stemi Electronically Signed On 03-26-2024 13:22:07 EDT by Luci Shah [facility] ED Nursing Noteon 03-26-2024 ED Nursing Note EKG, IV, blood work, covid and straight cath completed with assistance of Juliette Ponce RN, Juan medic and Mary medic; patient tolerated well. Respirations even and unlabored, no distress noted. Caregiver at bedside throughout all procedures and remains with patient after Trish Miranda RN 03/26/[address] [facility] ED Nursing Note EKG performed by Roberto lópez and given to MD for review Trish Miranda RN 03/26/[address] [facility] ED Provider Noteon ED Provider Note Emergency Department Encounter [facility] EMERGENCY DEPT Patient: Sharla Joiner [...] for agitation. Patient brought in by her avionics systems repairer from her jail. She has autism she does verbalize at baseline but does not make sense at baseline. The avionics systems repairer states she has been complaining of pain when she has bowel movements and she has been aggressive with others not acting herself. She has not been eating drinking or sleeping. She was seen here few days ago and diagnosed with possible ear infection. Button Maker did not report any rash to the [...] for clarification.) Luci Shah MD Acute Care [facility] Luci Shah MD 03/26/[address] [facility] ED Provider Note EMERGENCY DEPARTMENT ENCOUNTER [...] not sleeping, strengthening other staff at the jail. Patient is autistic has developmental delay, she was here couple days ago had to give her Ativan and Versed eventually family and jail employee just wanted to take her back [...] Normal appeara (more content not included)... Normal [facility] HCG QUANTITATIVE BLOODon HCG QUANTITATIVE <2 Normal Females <=5 [facility] Comment on above: Result Comment: NAIMA [...] trophoblastic disease. Performed By: #### L AB17, QIK709, LAB99, MPR177, IDJ682 ####Diesel Locomotive Firer: LOCO CRUZ ([id number])[facility] ([facility])[address] LACTIC ACID WITH REFLEXon Lactate [Moles/Vol] 1.1 mmol/L Normal 0.7-2.0 [facility] Comment on above: Performed By: #### L [id number] ####Diesel Locomotive Firer: LOCO CRUZ ([id number])[facility] ([facility])[address] [place] [id number] [facility] LIPASEon 03-26-2024 Lipase [Catalytic activity/Vol] 66 U/L Normal 23-300 [facility] Comment on above: Performed By: #### L AB17, SQL818, LAB99, TBG475, IGI534 ####Diesel Locomotive Firer: LOCO CRUZ ([id number])[facility] ([facility])[address] Laboratory - Chemistry and C hemistry - challengeon 03-26-2024 HCG.beta subunit Qn Females <=5 mIU/mL [facility] Troponin I.cardiac [Mass/Vol] 0.022 ng/mL NINF - 0.034 ng/mL [facility] Lipase [Catalytic activity/Vol] 66 U/L 23 - 300 U/L [facility] Magnesium [Mass/Vol] 2.1 mg/dL 1.6 - 2 .3 mg/dL [facility] Lactate [Moles/Vol] 1.1 mmol/L 0.7 - 2. 0 mmol/L [facility] Laboratory - Microbiology an d Antimicrobial susceptibilityon 03-26-2024 FLUAV RNA MACIE+probe Ql (Resp) Not detected Not Detected [facility] FLUBV RNA MACIE+probe Ql (Resp) Not detected Not Detected [facility] RSV RNA MACIE+probe Ql (Resp) Not detected Not Detected [facility] SARS-CoV-2 (COVID-19) RNA MACIE+probe Ql (Resp) Not detected Not Detected [facility] SARS-CoV-2 (COVID-19) RNA MACIE+probe Ql (Unsp spec) Methodology: real-time, RT-PCR The SARS-CoV-2, Flu A/B, and RSV Combo assay is intended for in vitro diagnostic use under the FDA Emergency Use Authorization (EUA). This test has not been FDA cleared or approved. In compliance with this authorization, please visit www.fda.gov/media/791920/vivienne nload or www.fda.gov/media/085494/vivienne nload to access the applicable information sheets. [facility] MAGNESIUMon 03-26-2024 Magnesium [Mass/Vol] 2.1 mg/dL Normal 1.6-2.3 [facility] Comment on above: Performed By: #### L AB17, TCI792, LAB99, HNI134, NRG287 #### Diesel Locomotive Firer: LOCO CRUZ ([id number]) [facility] [address] [place] [address] No Panel Informationon 03-26 Values in should [...] or monitor tumors or gestational trophoblastic disease. [facility] Interpretation and review of laboratory results Normal [facility] Interpretation and review of laboratory results Normal [facility] P [place] 33 degrees [facility] TX Interval 102 ms [facility] QRS [place] -5 degrees [facility] QRSD Interval 90 ms [facility] QT Interval 377 ms [facility] QTC Interval 498 ms [facility] T Wave [place] 16 degrees [facility] Sinus tachycardia Borderline prolonged QT interval no stemi Electronically Signed On 03-26-2024 13:22:07 EDT by Luci Shah CV Luci Cai MD - 03/26/2024 IMPRESSION: Sinus tachycardia Borderline prolonged QT interval no stemi Electronically Signed On 03-26-2024 13:22:07 EDT by Luci Shah [facility] SARS-COV-2, FLU A/B, AND RSV COMBOon 03-26-2024 [...] In compliance with this authorization, please visit www.fda.gov/media/749383/vivienne nload or www.fda.gov/media/988652/vivienne nload to access the applicable information sheets. Normal [facility] Comment on above: Performed By: #### L [id number] #### Diesel Locomotive Firer: LOCO CRUZ ([id number]) [facility] ([facility]) [address] [place] [address] SARS-CoV-2, Flu A/B, and RSV Comboon 03-26-2024 Interpretation and review of laboratory results Normal [facility] TROPONIN Ion 03-26-2024 Troponin I.cardiac [Mass/Vol] 0.022 ng/mL Normal <0.034 [facility] Comment on above: Result Comment: NAIMA Mohan COMMENTS: Patients with high levels of Biotin oral intake (ie >5 mg/day) may have falsely decreased Troponin levels. Performed By: #### L AB17, HIS184, LAB99, WIW550, XGH144 ####Diesel Locomotive Firer: LOCO CRUZ ([id number])[facility] ([facility])[address] [place] [address] Troponin I.cardiac [Mass/Vol ]on 03-26-2024 Interpretation and review of laboratory results Normal [facility] Patients with high l evels of Biotin oral intake (ie >5 mg/day) may have falsely decreased Troponin levels. [facility] Urinalysis complete panel (U )Ordered By: Anastasia Bob on 03-26-2024 Bacteria LM.HPF (Urine sed) [#/Area] Negative Negative /HPF [facility] Bilirubin Ql (U) Negative Negative mg/dL [facility] Clarity (U) Clear Clear [facility] Color (U) Dark Yellow Abnormal Lt. Yellow [facility] Epithelial cells.squamous LM.HPF (Urine sed) [#/Area] 3-5 [facility] Glucose Ql (U) Normal Normal (<70) mg/dL [facility] Hemoglobin Ql (U) Negative Negative mg/dL [facility] Interpretation and review of laboratory results Abnormal [facility] Ketones (U) [Mass/Vol] 20 mg/dL Abnormal Negative [facility] Leukocyte esterase Test strip Ql (U) Negative Negative Michelle/uL [facility] Mucus LM.HPF (Urine sed) [#/Area] Moderate Abnormal Negative /LPF [facility] Nitrite Ql (U) Negative Negative [facility] pH (U) 6.0 [pH] 5.0 - 8.0 pH [facility] Protein (U) [Mass/Vol] 30 mg/dL Abnormal Negative [facility] RBC LM.HPF (Urine sed) [#/Area] 0-2 [facility] Specific gravity (U) [Rel density] 1.035 High 1.005 - 1.030 [facility] Urobilinogen (U) [Mass/Vol] 3 mg/dL Abnormal Normal (0-1) [facility] Volume, Urine 12 mL [facility] WBC LM.HPF (Urine sed) [#/Area] 3-5 [facility] Vital signson 03-26-2024 Heart rate 105 /min bpm [facility] ED Nursing Noteon 03-24-2024 ED Nursing [...] notified. Matt Mix RN 03/24/24 2250 Normal [facility] ED Nursing Note Pt still pacing in r oom and unable to draw blood at this time. Matt Mix RN 03/24/24 2227 Normal [facility] ED Nursing Note Patient very agitate d and restless, patient refusing to stay in room and remains uncooperative. Lalit ORNELAS notified. Unable to obtain blood work at this time. Sheridan Deng RN 03/24/24 2148 Normal [facility] ED Provider Noteon ED Provider Note EMERGENCY DEPARTMENT ENCOUNTER Pt Name: Sharla Joiner Birthdate 1975 Date of evaluation: 03/24/2024 ED Provider: Lalit Solorzano APRN - MANAGER PATHOLOGY Patient seen independently within my scope of [...] of this encounter. History provided by: Patient automatic tire tester used: No Sharla Joiner is a 48 y.o. female with past medical history for bipolar disorder, autistic disorder, Parkinson's disease, tardive dyskinesia, UTI and ear infection presents to the emergency department for evaluation of left earache. Patient's caregiver states that the patient has been tugging on her left ear, and she has been pacing around [place] the jail. Patient's mom and caregiver suspect that the [...] or erythematous. (more content not included)... Normal [facility] SHS CNOVon 03-16-2024 CNOV Normal [facility] CNPNon 01-25-2024 CNPN Normal [facility] ANES POSTPROC EVALon 024 ANES POSTPROC EVAL Normal [facility] ANES PRE-OPon 01-24-2024 ANES PRE-OP Normal [facility] HCG QUALITATIVEon 01-24-2024 HCG, QUALITATIVE Negative Normal Negative [facility] Comment on above: Order Comment: Speci men Type: BLOOD SPECIMENOrdering Facility: [facility] Address: [address] [place] [address] Performed By: #### H CG ####[facility] LAB[facility]ATORYCLIA [id number] [place] [address] [place] HISTORY PHYSICALon HISTORY PHYSICAL Normal [facility] NURSING PROGon 01-24-2024 NURSING PROG Normal [facility] NURSING PROG [facility] OPERATIVE NOon 01-24-2024 OPERATIVE NO [facility] ANES PREOPon 01-23-2024 ANES PREOP Normal [facility] CBC W Auto Differential pane l (Bld)on 01-20-2024 Basophils (Bld) [#/Vol] 0.03 10*3/uL Normal <0.11 [facility] Comment on above: Order Comment: Speci men Type: BLOOD SPECIMENOrdering Facility: [facility] Address: [address] [place] [address] Performed By: #### 5 7021-8 ####[facility]ATORYCLIA [id number] [place] [address] [place] Basophils/100 WBC (Bld) 0.4 % Normal [facility] Comment on above: Order Comment: Speci men Type: BLOOD SPECIMENOrdering Facility: [facility] Address: [address] [place] [address] Performed By: #### 5 7021-8 ####[facility] LABORATORYCLIA [id number] [place] [address] [place] Differential cell count method Nom (Bld) Auto Normal [facility] Comment on above: Order Comment: Speci men Type: BLOOD SPECIMENOrdering Facility: [facility] Address: [address] [place] [address] Performed By: #### 5 7021-8 ####[facility]ATORYCLIA [id number] [place] [address] [place] Eosinophils (Bld) [#/Vol] 0.16 10*3/uL Normal <0.46 [facility] Comment on above: Order Comment: Speci men Type: BLOOD SPECIMENOrdering Facility: [facility] Address: [address] [place] [address] Performed By: #### 5 7021-8 ####[facility]ATORYCLIA [id number] [place] [address] [place] Eosinophils/100 WBC (Bld) 2.3 % Normal [facility] Comment on above: Order Comment: Speci men Type: BLOOD SPECIMENOrdering Facility: [facility] Address: [address] [place] [address] Performed By: #### 5 7021-8 ####[facility]ATORYCLIA [id number] [place] [address] [place] Erythrocyte distribution width (RBC) [Ratio] 13.1 % Normal 11.5-15.0 [facility] Comment on above: Order Comment: Speci men Type: BLOOD SPECIMENOrdering Facility: [facility] Address: [address] [place] [address] Performed By: #### 5 7021-8 ####[facility]ORATORYCLIA [id number] [place] [address] [place] Hematocrit (Bld) [Volume fraction] 42.0 % Normal 36.0-46.0 [facility] Comment on above: Order Comment: Speci men Type: BLOOD SPECIMENOrdering Facility: [facility] Address: [address] [place] [address] Performed By: #### 5 7021-8 ####[facility]ATORYCLIA [id number] [place] [address] [place] Hemoglobin (Bld) [Mass/Vol] 14.4 g/dL Normal 11.5-15.5 [facility] Comment on above: Order Comment: Speci men Type: BLOOD SPECIMENOrdering Facility: [facility] Address: [address] [place] [address] Performed By: #### 5 7021-8 ####[facility]ORATORYCLIA [id number] [place] [address] [place] Immature granulocytes (Bld) [#/Vol] 0.05 10*3/uL Normal <0.10 [facility] Comment on above: Order Comment: Speci men Type: BLOOD SPECIMENOrdering Facility: [facility] Address: [address] [place] [address] Performed By: #### 5 7021-8 ####[facility]ATORYCLIA [id number] [address] [place] Immature granulocytes/100 WBC (Bld) 0.7 % Normal [facility] Comment on above: Order Comment: Speci men Type: BLOOD SPECIMENOrdering Facility: [facility] Address: [address] [place] [address] Performed By: #### 5 7021-8 ####[facility]ORATORYCLIA [id number] [place] [address] [place] Lymphocytes (Bld) [#/Vol] 2.58 10*3/uL Normal 1.00-4.00 [facility] Comment on above: Order Comment: Speci men Type: BLOOD SPECIMENOrdering Facility: [facility] Address: [address] [place] [address] Performed By: #### 5 7021-8 ####[facility]ORATORYCLIA [id number] [place] [address] [place] Lymphocytes/100 WBC (Bld) 37.4 % Normal [facility] Comment on above: Order Comment: Speci men Type: BLOOD SPECIMENOrdering Facility: [facility] Address: [address] [place] [address] Performed By: #### 5 7021-8 ####[facility]ORATORYCLIA [id number] [address] MCH (RBC) [Entitic mass] 31.4 pg Normal 26.0-34.0 [facility] Comment on above: Order Comment: Speci men Type: BLOOD SPECIMENOrdering Facility: [facility] Address: [address] [place] [address] Performed By: #### 5 7021-8 ####[facility]ATORYCLIA [id number] [address] [place] MCHC (RBC) [Mass/Vol] 34.3 g/dL Normal 30.5-36.0 [facility] Comment on above: Order Comment: Speci men Type: BLOOD SPECIMENOrdering Facility: [facility] Address: [address] [place] [address] Performed By: #### 5 7021-8 ####[facility]ORATORYCLIA [id number] [address] [facility] MCV (RBC) [Entitic vol] 91.7 fL Normal 80.0-100.0 [facility] Comment on above: Order Comment: Speci men Type: BLOOD SPECIMENOrdering Facility: [facility] Address: [address] [place] [address] Performed By: #### 5 7021-8 ####[facility]ATORYCLIA [id number] [address] [place] Monocytes (Bld) [#/Vol] 0.88 10*3/uL High <0.87 [facility] Comment on above: Order Comment: Speci men Type: BLOOD SPECIMENOrdering Facility: [facility] Address: [address] [place] [address] Performed By: #### 5 7021-8 ####[facility]ATORYCLIA [id number] [address] Monocytes/100 WBC (Bld) 12.8 % Normal [facility] Comment on above: Order Comment: Speci men Type: BLOOD SPECIMENOrdering Facility: [facility] Address: [address] [place] [address] Performed By: #### 5 7021-8 ####[facility]ATORYCLIA [id number] [place] [address] [place] Neutrophils (Bld) [#/Vol] 3.20 10*3/uL Normal 1.45-7.50 [facility] Comment on above: Order Comment: Speci men Type: BLOOD SPECIMENOrdering Facility: [facility] Address: [address] [place] [address] Performed By: #### 5 7021-8 ####[facility]ATORYCLIA [id number] [address] [place] Neutrophils/100 WBC (Bld) 46.4 % Normal [facility] Comment on above: Order Comment: Speci men Type: BLOOD SPECIMENOrdering Facility: [facility] Address: [address] [place] [address] Performed By: #### 5 7021-8 ####[facility]ATORYCLIA [id number] [place] [address] [place] Nucleated RBC (Bld) [#/Vol] 10*3/uL Normal <0.01 [facility] Comment on above: Order Comment: Speci men Type: BLOOD SPECIMENOrdering Facility: [facility] Address: [address] [place] [address] Performed By: #### 5 7021-8 ####[facility]ORATORYCLIA [id number] [place] [address] [place] Nucleated RBC/100 WBC (Bld) [Ratio] 0.0 /100 WBC Normal [facility] Comment on above: Order Comment: Speci men Type: BLOOD SPECIMENOrdering Facility: [facility] Address: [address] [place] [address] Performed By: #### 5 7021-8 ####[facility]ORATORYCLIA [id number] [place] [address] [place] Platelet mean volume (Bld) [Entitic vol] 8.8 fL Low 9.0-12.7 [facility] Comment on above: Order Comment: Speci men Type: BLOOD SPECIMENOrdering Facility: [facility] Address: [address] [place] [address] Performed By: #### 5 7021-8 ####[facility] LABORATORYCLIA [id number] [place] [id number] [place] Platelets (Bld) [#/Vol] 112 10*3/uL Low 150-400 [facility] Comment on above: Order Comment: Speci men Type: BLOOD SPECIMENOrdering Facility: [facility] Address: [address] [place] [address] Performed By: #### 5 7021-8 ####[facility] LABORATORYCLIA [id number] [place] [address] [place] RBC (Bld) [#/Vol] 4.58 10*6/uL Normal 3.90-5.20 [facility] Comment on above: Order Comment: Speci men Type: BLOOD SPECIMENOrdering Facility: [facility] Address: [address] [place] [address] Performed By: #### 5 7021-8 ####[facility] LABORATORYCLIA [id number] [place] [id number] [place] WBC (Bld) [#/Vol] 6.90 10*3/uL Normal 3.70-11.00 [facility] Comment on above: Order Comment: Speci men Type: BLOOD SPECIMENOrdering Facility: [facility] Address: [address] [place] [address] Performed By: #### 5 7021-8 ####[facility] LABORATORYCLIA [id number] [place] [id number] [place] CONSULTon 01-20-2024 CONSULT Normal [facility] CT NECK SOFT TISSUE W IVCONo n 01-20-2024 CT NECK SOFT TISSUE W IVCON Normal [facility] Comprehensive metabolic 2000 panelon 01-20-2024 Albumin [Mass/Vol] 2.9 g/dL Low 3.2-5.0 [facility] Comment on above: Order Comment: Speci men Type: BLOOD SPECIMENOrdering Facility: [facility] Address: [address] [place] [address] Performed By: #### 2 4323-8 ####[facility]ORATORYCLIA [id number] [place] [id number] [place] ALP [Catalytic activity/Vol] 86 U/L Normal 45-117 [facility] Comment on above: Order Comment: Speci men Type: BLOOD SPECIMENOrdering Facility: [facility] Address: [address] [place] [address] Performed By: #### 2 4323-8 ####[facility]ORATORYCLIA [id number] [place] [address] [place] ALT [Catalytic activity/Vol] 22 U/L Normal 13-61 [facility] Comment on above: Order Comment: Speci men Type: BLOOD SPECIMENOrdering Facility: [facility] Address: [address] [place] [address] Result Comment: Resu lts may be falsely depressed after the administration of Sulfasalazine and/or Sulfapyridine. Performed By: #### 2 4323-8 ####[facility] LABORATORYCLIA [id number] [address] [place] Anion gap [Moles/Vol] 7 mmol/L Normal 5-16 [facility] Comment on above: Order Comment: Speci men Type: BLOOD SPECIMENOrdering Facility: [facility] Address: [address] [place] [address] Performed By: #### 2 4323-8 ####[facility]ORATORYCLIA [id number] [place] [address] [place] AST [Catalytic activity/Vol] 20 U/L Normal 8-34 [facility] Comment on above: Order Comment: Speci men Type: BLOOD SPECIMENOrdering Facility: [facility] Address: [address] [place] [address] Result Comment: Resu lts may be falsely depressed after the administration of Sulfasalazine and/or Sulfapyridine. Performed By: #### 2 4323-8 ####[facility]ORATORYCLIA [id number] [place] [address] [place] Bilirubin [Mass/Vol] 1.0 mg/dL Normal 0.2-1.0 [facility] Comment on above: Order Comment: Speci men Type: BLOOD SPECIMENOrdering Facility: [facility] Address: [address] [place] [address] Performed By: #### 2 4323-8 ####[facility]ORATORYCLIA [id number] [place] [address] [place] Calcium [Mass/Vol] 9.0 mg/dL Normal 8.5-10.5 [facility] Comment on above: Order Comment: Speci men Type: BLOOD SPECIMENOrdering Facility: [facility] Address: [address] [place] [address] Performed By: #### 2 4323-8 ####[facility]ORATORYCLIA [id number] [place] [address] [place] Chloride [Moles/Vol] 110 mmol/L High 98-107 [facility] Comment on above: Order Comment: Speci men Type: BLOOD SPECIMENOrdering Facility: [facility] Address: [address] [place] [address] Performed By: #### 2 4323-8 ####[facility]ORATORYCLIA [id number] [place] [address] [place] CO2 [Moles/Vol] 29 mmol/L Normal 21-32 [facility] Comment on above: Order Comment: Speci men Type: BLOOD SPECIMENOrdering Facility: [facility] Address: [address] [place] [address] Performed By: #### 2 4323-8 ####[facility]ORATORYCLIA [id number] [place] [address] [place] Creatinine [Mass/Vol] 0.60 mg/dL Normal 0.51-0.95 [facility] Comment on above: Order Comment: Speci men Type: BLOOD SPECIMENOrdering Facility: [facility] Address: [address] [place] [address] Result Comment: Marilin ents receiving either N-Acetylcysteine (NAC) or Metamizole prior to venipuncture, may have falsely depressed results. Performed By: #### 2 4323-8 ####[facility]ORATORYCLIA [id number] [place] [address] [place] Creatinine and Glomerular filtration rate.predicted panel (S/P/Bld) 112 mL/min/1.73m??? Normal >=60 [facility] Comment on above: Order Comment: Syd ramos Type: BLOOD SPECIMENOrdering Facility: [facility] Address: [address] [place] [address] Result Comment: Chrissy mated Glomerular Filtration Rate [...] actual GFR. Performed By: #### 2 4323-8 ####[facility]ORATORYCLIA [id number] [place] [address] [place] Glucose [Mass/Vol] 82 mg/dL Normal 70-100 [facility] Comment on above: Order Comment: Syd ramos Type: BLOOD SPECIMENOrdering Facility: [facility] Address: [address] [place] [address] Result Comment: The [place] Diabetes Association (ADA) provides guidance for cutoff [...] Standards of Medical Care in Diabetes 2016, [place] [employer] Association. Diabetes Care. 2016.39(Suppl 1).Results may be falsely elevated after the administration of Sulfapyridine.Results may be falsely depressed after the administration of Sulfasalazine. Performed By: #### 2 4323-8 ####[facility]ORATORYCLIA [id number] [place] [address] [place] Potassium [Moles/Vol] 3.1 mmol/L Low 3.5-5.1 [facility] Comment on above: Order Comment: Speci men Type: BLOOD SPECIMENOrdering Facility: [facility] Address: [address] [place] [address] Performed By: #### 2 4323-8 ####[facility]ORATORYCLIA [id number] [place] [address] [place] Protein [Mass/Vol] 6.1 g/dL Normal 6.0-8.5 [facility] Comment on above: Order Comment: Speci men Type: BLOOD SPECIMENOrdering Facility: [facility] Address: [address] [place] [address] Performed By: #### 2 4323-8 ####[facility]ORATORYCLIA [id number] [place] [address] [place] Sodium [Moles/Vol] 146 mmol/L High 136-145 [facility] Comment on above: Order Comment: Speci men Type: BLOOD SPECIMENOrdering Facility: [facility] Address: [address] [place] [address] Performed By: #### 2 4323-8 ####[facility]ORATORYCLIA [id number] [place] [address] [place] Urea nitrogen [Mass/Vol] 10 mg/dL Normal 7-26 [facility] Comment on above: Order Comment: Speci men Type: BLOOD SPECIMENOrdering Facility: [facility] Address: [address] [place] [address] Performed By: #### 2 4323-8 ####[facility]ORATORYCLIA [id number] [address] [place] ED NOTEon 01-20-2024 ED NOTE HNO ID: [id number] Author: YASMIN TONY RN Service: ? Author Type: Registered Nurse Type: ED Notes Filed: 01/20/2024 10:22 Note Text: Pt has a tooth abscess and was referred here due to not being able to get dental care done in dental office. Normal [facility] ED PROV NOTEon 01-20-2024 ED PROV NOTE Normal [facility] HCG QUALITATIVEon 01-20-2024 HCG, QUALITATIVE Negative Normal Negative [facility] Comment on above: Order Comment: Speci men Type: BLOOD SPECIMENOrdering Facility: [facility] Address: [address] [place] [address] Performed By: #### H CLIF, 99611-3 ####[facility]ORATORYCLIA [id number] [address] [place] Procalcitonin SerPl-mCncon 0 01-20-2024 Procalcitonin [Mass/Vol] ng/mL Normal 0.00-0.50 [facility] Comment on above: Order Comment: Speci men Type: BLOOD SPECIMENOrdering Facility: [facility] Address: [address] [place] [address] Result Comment: PCT Concentration InterpretationPCT <=0.1 ng/mL:Normal [...] septic shock. Performed By: #### H CLIF, 31579-8 ####[facility]ORATORYCLIA [id number] [place] [id number] [place] CNOVon 01-17-2024 CNOV Normal [facility] ED Provider Noteon ED Provider [...] emergency department with a personal-care tach from [employer], for evaluation of left ear irritation with [...] Sexual Act (more content not included)... Normal [facility] Progress Noteon 12-02-2023 Progress Note A [...] created in error - please disregard. Normal [facility] URINALYSIS, DIPSTICK ONLYOrd ered By: Jerri Novak on 11-24-2023 Bilirubin Ql (U) Negative Negative [facility] Clarity (Unsp spec) Clear Clear [facility] Color (U) Yellow Yellow [facility] Glucose Test strip (U) [Mass/Vol] Negative Negative [facility] Hemoglobin Ql (U) 2+ Abnormal Negative [facility] Interpretation and review of laboratory results Abnormal [facility] Ketones Ql (U) 1+ Abnormal Negative [facility] Leukocyte esterase Test strip Ql (U) Negative Negative [facility] Nitrite Ql (U) Negative Negative [facility] pH (U) 6.0 [pH] 5.0 - 8.0 [facility] Protein (U) [Mass/Vol] Negative Negative [facility] Specific gravity (U) [Rel density] 1.030 1.005 - 1.030 [facility] Urobilinogen Ql (U) 1+ Abnormal Negative [facility] CT HEAD WO IV CONTRASTon CT [...] Pt states she has no periods Normal [facility] CT Head WO contraston 2023 No acute findings. Report Dictated on Electronically Signed By: Liban Robertson MD Electronically Signed Date/Time: 08/11/2023 6:56 PM EST [facility] EMERGENCY DEPARTMENT [employer] SYSTEM Patient Name: SHARLA JOINER : 1975 [...] and the mastoid air cells are clear. [facility] SYSTEM Liban Robertson MD - 08/11/2023 Patient Name: SHARLA JOINER : 1975 Exam [...] Electronically Signed Date/Time: 08/11/2023 6:56 PM EST [facility] Radiology Study observation (narrative) [facility] CT Head WO contrastOrdered B y: Liban Robertson on 08-11-2023 [employer] Work Phone: ED Nursing Noteon 08-11-2023 ED Nursing Note Pt presents to the e r with her caregiver , caregiver states she fell today and hit the front of her head, pt denies any LOC , pt denies pain Normal [facility] ED Provider Noteon ED Provider Note [...] [place] [facility] and stepped wrong and fell onto the [...] otherwise acutely negative except as in the [place] PAST MEDICAL HISTORY Past Medical History: Diagnosis [...] speech recognition (more content not included)... Normal [facility] CT HEAD OR BRAIN W/O CONTRAS Ton 05-28-2023 CT HEAD OR BRAIN W/O CONTRAST ORIGINAL EXAMINATION: CT OF THE HEAD WITHOUT HJIFNQSJ00/11/2023 3:[address] HEAD OR BRAIN W/O [...] 05/28/2023 3:34:15 PM Ordering Provider: [place] [facility] ([place] LABORATORYOrdered By: William Rojas on 05-28-2023 Appearance [...] AH Auto Urine SS LABORATORYOrdered By: Phuong lCark on 05-28-2023 Bacteria LM.HPF (Urine sed) [#/Area] [...] SS UAon 05-28-2023 Color (U) Yellow Normal [facility] [place] Comment on above: Performed By: #### U AMIC, UA #### [place] [address] Glucose (U) [Mass/Vol] Negative Normal Negative [facility] [place] Comment on above: Performed By: #### U AMIC, UA #### [place] [address] Ketones Ql (U) Trace Normal Neg-Trace [facility] [place] Comment on above: Performed By: #### U AMIC, UA #### [place] [address] UA Appear Clear Normal Clear [facility] [place] Comment on above: Performed By: #### U AMIC, UA #### [place] [address] UA Blood Negative Normal Neg-Trace [facility] [place] Comment on above: Performed By: #### U AMIC, UA #### [address] [address] UA Leuk Est Trace Normal Negative [facility] [place] Comment on above: Performed By: #### U AMIC, UA #### [address] [address] UA Nitrite Negative Normal Negative [facility] [place] Comment on above: Performed By: #### U AMIC, UA #### [place] [address] UA pH 8.0 Normal 5.0 - 8.0 [facility] [place] Comment on above: Performed By: #### U AMIC, UA #### [place] [address] UA Protein Negative Normal Negative [facility] [place] Comment on above: Performed By: #### U AMIC, UA #### [place] [address] UA Spec Grav 1.015 Normal 1.006-1.02 9 [facility] [place] Comment on above: Performed By: #### U AMIC, UA #### [place] [address] UA Specimen Type Clean Catch Normal [facility] [place] Comment on above: Performed By: #### U AMIC, UA #### [place] [address] UA Urobilinogen 2.0 E.U./dL Abnormal 0.2-1.0 [facility] [place] Comment on above: Performed By: #### U AMIC, UA #### [place] [address] Urobilinogen (U) [Mass/Vol] Negative Normal Neg-Trace [facility] [place] Comment on above: Performed By: #### U AMIC, UA #### [place] [address] UAMICon 05-28-2023 UA Bacteria Trace Abnormal Negative [facility] [place] Comment on above: Performed By: #### U AMIC, UA #### [place] [address] UA Mucous 1+ /hpf Normal [facility] [place] Comment on above: Performed By: #### U AMIC, UA #### [place] [address] UA RBC 5-10 Abnormal 0-2 [facility] [place] Comment on above: Performed By: #### U AMIC, UA #### [place] [address] UA Squam Epithelial 0-2 Normal 0-20 [facility] ([place] Comment on above: Performed By: #### U AMIC, UA #### [facility] [address] [place] [address] UA Transitional Epithelial Rare Normal [facility] [place] Comment on above: Performed By: #### U AMIC, UA #### [facility] [address] [place] [address] UA WBC 5-10 Abnormal 0-5 [facility] Comment on above: Performed By: #### U AMIC, UA #### [facility] [address] [place] [address] XR ESOPHAGRAMon 04-07-2023 XR ESOPHAGRAM * * *Final Report* * * DATE OF EXAM: Apr 07 2023 10:22AM AWX [id number] - XR ESOPHAGRAM / PROCEDURE REASON: r13.10 * * * * Physician Interpretation * * * * EXAM TITLE: XR ESOPHAGRAM DATE: 04/07/2023 11:07 AM INDICATION: Dysphagia COMPARISON: None. FINDINGS: Fluoroscopy was performed by the radiology physician's seo assistant. 47 seconds of fluoroscopy time was used. 66 images were obtained. The patient swallowed barium without difficulty. The esophagus demonstrates normal contour and motility. A 13 mm barium tablet passed easily through the esophagus. IMPRESSION: Within normal limits. [employer] Receptionist: GERONIMO Transcribe Date/Time: Apr 07 2023 11:07A Dictated by : POWER MANSFIELD MD This examination was interpreted and the report reviewed and electronically signed by: POWER MANSFIELD MD on Apr 07 2023 11:08AM EST [id number] Normal [facility] LABORATORYOrdered By: SYSTEM SYSTEM on 01-14-2023 [...] Invalid Interpretation Code 70 - 110 mg/dL [facility] Work Phone: LABORATORYOrdered By: SYSTEM SYSTEM on [...] Invalid Interpretation Code 70 - 110 mg/dL [facility] Work Phone: LABORATORYOrdered By: SYSTEM SYSTEM on [...] serogroups and species may also cause disease. [facility] Work Phone: Streptococcus Pneumoniae Urine Antig Presumptive negative for pneumococcal pneumonia, suggesting no current or recent pneumococcal infection. Infection due to Strep pneumoniae cannot be ruled out since the antigen present in the sample may be below the detection limit of the test. [facility] Work Phone: Comment on above: This test has not be en evaluated on patients taking antibiotics for greater than 24 hours or on patients who have recently completed an antibiotic regimen. The accuracy of this test has not been proven in young children. Culture Urine No growth at 48 hours. [facility] Work Phone: LABORATORYOrdered By: SYSTEM SYSTEM on [...] Detected AH Auto Viro/Sero SS B. parapertussis [id number] DNA MACIE+non-probe Ql (Nph) Not Detected *NA* [...] AH Auto Viro/Sero SS US KIDNEY/BLADDERon 11-16-19 [facility] UA DIP, URINE (POC)on 2022 BILIRUBIN UA (POCT) Negative Negative [facility] CLARITY UA (POCT) Clear [facility] COLOR UA (POCT) Yellow [facility] GLUCOSE UA (POCT) Negative Negative mg/dL [facility] HEMOGLOBIN/BLOOD UA (POCT) Trace-intact Abnormal Negative [facility] KETONE UA (POCT) Trace Negative mg/dL [facility] LEUKOCYTES UA (POCT) Negative [facility] NITRITE UA (POCT) Negative Negative [facility] PH UA (POCT) 6.0 4.5 - 8.0 [facility] Protein Ql (U) Negative Negative mg/dL [facility] SPECIFIC GRAVITY UA (POCT) 1.015 1.005 - 1.030 [facility] UROBILINOGEN UA (POCT) 1.0 E.U./dL Normal E.U./dL [facility] US FEMALE PELVIS TRANSABD CO MPLETEon 10-29-2022 [facility] LABORATORYOrdered By: SYSTEM SYSTEM on 08-27-2022 [...] Routine cultures are held for 5 days. [facility] Work Phone: Microscopic examination of blood, culture Culture has been received in lab and is no growth to date. Routine cultures are held for 5 days. [facility] Work Phone: GENTAMICIN:SUSC:PT:ISOLATE:O RDQN:MICon 08-26-2022 Gentamicin KIKI [Susc] 50,000 - 100,000 c fu/ml Escherichia coli [facility] Work Phone: Gentamicin KIKI [Susc]on Escherichia coli Escherichia coli [facility] Work Phone: LABORATORYOrdered By: Mahi Morrison on [...] Invalid Interpretation Code Chemistry S LABORATORYOrdered By: [employer] SYSTEM on 07-15-2021 Albumin [Mass/Vol] 3.2 G/dL [...] Comment on above: Result Comment: [place] [address] FLU B PCR Negative 3 (07/08/21 6:42 PM) Invalid Interpretation Code Negative AH Auto Viro/Sero SS Comment on above: Result Comment: [place] [address] Hospitalized Unknown (07/08/21 6:42 PM) Invalid Interpretation [...] Comment on above: Result Comment: [place] [address] SARS-CoV-2 (COVID-19) RNA MACIE+probe Ql (Unsp spec) Negative 1 (07/08/21 6:42 PM) Invalid Interpretation Code Negative [facility]Sero SS Comment on above: Result Comment: [place] [address] Symptomatic as Defined by CDC Yes (07/08/21 6:42 PM) Invalid Interpretation Code AH Auto Viro/Sero SS No Panel Informationon 07-08 Microscopic examination of blood, culture Culture has been received in lab and is no growth to date. Routine cultures are held for 5 days. [facility] Work Phone: LABORATORYOrdered By: Lea cueva on [...] Code 0-5/HPF Auto Urine SS SCon 07-03-2021 [facility] RE[facility] Normal [facility] DATE OF SERVICE: CHIEF COMPLAINT: Dysuria HISTORY [...] is soft. Diffuse tenderness noted. Bilateral tenderness. [facility] PATIENT NAME: SHARLA JOINER [address] [place] MEDICAL REC #: [id number] [place] [address] [facility] RE[facility] PHYSICIAN ASSESSMENT: 1. urinary incontinence and blockage. 2. Dysuria. PLAN: Further treatment and evaluation is warranted. Will send her to the ER.Discussed with the patient treatments and plans. I discussed with the patient's caregiver. Jason Abarca MD [id number] SSI File#: [id number] END OF DOCUMENT / CHANGE LOG FOLLOWS Last Edited By [employer]. Signed By Jason Abarca MD #Jason Alonzo MD #JOSE FRANCISCO on 07/31/2021 09:54 ET on 07/31/2021 09:54 ET Revision Number - 2 Verified/Reviewed by [facility] PATIENT NAME: SHARLA JOINER [address] [place] MEDICAL REC #: [id number] [place] [address] [facility] PHYSICIAN 07/31/21 0955 JOSE FRANCISCO [facility] PATIENT NAME: SHARLA JOINER [address] [place] MEDICAL REC #: [id number] [place] [address] [facility] PHYSICIAN Normal [facility] URINE CULTUREon 07-03-2021 Bacteria identified Cx Nom (U) This report has been cancelled [facility] Comment on above: Order Comment: PATIE NT COULD NOT VOID URINE CULTUREon 01-03-2021 Bacteria identified Cx Nom (U) URINE RESULT 40-50,000 COL/ML MIXED HAILEY-PLEASE REPEAT-POSSIBLE CONTAMIN [facility] Comment on above: Order Comment: [place]: [place] Performed By: #### M 100.46928 #### [place] [address] PH# [phone] DIPSTICKon 01-02-2021 POC APPEARANCE CLEAR Normal CLEAR [facility] Comment on above: Order Comment: [place]: [place] Performed By: #### L 600.36532 #### [place] [address] PH# [phone] POC BILIRUBIN Negative Normal NEGATIVE [facility] Comment on above: Order Comment: [place]: [place] Performed By: #### L 600.19219 #### [place] [address] PH# [phone] POC BLOOD Negative Normal NEGATIVE [facility] Comment on above: Order Comment: [place]: [place] Performed By: #### L 600.80004 #### [place] [address] PH# [phone] POC COLOR STRAW Normal [facility] Comment on above: Order Comment: [place]: [place] Performed By: #### L 600.69365 #### [address] [place] [address] PH# [phone] POC KETONE Negative Normal NEGATIVE [facility] Comment on above: Order Comment: [place]: [place] Performed By: #### L 600.87878 #### [address] [place] [address] PH# [phone] POC LEUK EST Negative Normal NEGATIVE [facility] Comment on above: Order Comment: [place]: [place] Performed By: #### L 600.06381 #### [place] [address] PH# [phone] POC NITRITE Negative Normal NEGATIVE [facility] Comment on above: Order Comment: [place]: [place] Performed By: #### L 600.45875 #### [place] [address] PH# [phone] POC PROTEIN Negative Normal NEGATIVE [facility] Comment on above: Order Comment: [place]: [place] Performed By: #### L 600.76047 #### [place] [address] PH# [phone] POC SPEC GRAV 1.005 Normal 1.005-1.03 0 [facility] Comment on above: Order Comment: [place]: [place] Performed By: #### L 600.18918 #### [place] [address] PH# [phone] POC UA GLUCOSE NORMAL Normal NORMAL [facility] Comment on above: Order Comment: [place]: [place] Performed By: #### L 600.83741 #### [place] [address] PH# [phone] POC UA PH 6.5 Normal 5-6 [facility] Comment on above: Order Comment: [place]: [place] Performed By: #### L 600.69302 #### [address]# [phone] POC UROBIL NORMAL Normal NORMAL [facility] Comment on above: Order Comment: [place]: [place] Performed By: #### L 600.13952 #### [address] [place] [address] PH# [phone] [facility] 01-02-2021 [facility] REPORT Normal [facility] DATE OF SERVICE: CHIEF COMPLAINT: Dysuria. HISTORY [...] normal limits. Lungs and Heart: Within normal [facility] MED[facility] REC #: [id number] [place] [address] [facility] PHYSICIAN limits. No CV angle tenderness. TESTS: UA done was negative. ASSESSMENT: Dysuria and behavioral changes. PLAN: Discussed with the patient's caregiver treatments and plan. Have the patient follow up with her psychiatrist. Reassuring at this time the UA is negative. We will send up the urine out for culture. Treatments and plans thoroughly discussed. Jason Abarca MD [id number] SSI File#: [id number] END OF DOCUMENT / CHANGE LOG FOLLOWS Last Edited By [employer]. Signed By Jason Abarca MD #Jason Alonzo MD #JOSE FRANCISCO on 01/08/2021 09:03 ET on 01/08/2021 09:03 ET Revision Number - 2 [facility] PATIENT NAME: SHARLA JOINER [facility] MED[facility] REC #: [id number] [place] [address] [facility] Verified/Reviewed by 01/08/21 Mame FELTON [facility] PATIENT NAME: SHARLA JOINER CarlitaAngelica Janny Shields MEDICAL REC #: [id number] [place] [address] [facility]IC[facility] Normal [facility] Vital Signs Date Time Vital Sign Value Performing Clinician Facility 02-20-2025 11:11-0400 Body height 170.[address] Quincy Rocha Work Phone: [facility] 12-25-2024 20:00-0400 Diastolic blood pressure 64 mm[Hg] Dr. Quincy Rocha Work Phone: 9(212)942-229561 [place] [address] 12-25-2024 20:00-0400 Heart rate 88 /min Dr. Quincy Rocha Work Phone: 7(039)427-328561 [place] [address] 12-25-2024 20:00-0400 SaO2% (BldA) [Mass fraction] 94 % Dr. Quincy Rocha Work Phone: 9(382)232-844261 [place] [address] 12-25-2024 20:00-0400 Systolic blood pressure 119 mm[Hg] Dr. Quincy Rocha Work Phone: 3(268)491-955396 [place] [address] 12-25-2024 19:46-0400 Body temperature 98.6 [degF] Dr. Quincy Rocha Work Phone: 6(280)698-169361 [place] [address] 12-25-2024 19:46-0400 Respiratory rate 14 /min Dr. Quincy Rocha Work Phone: 4(082)389-170261 [place] [address] 12-25-2024 12:29-0400 Body height 170.[address] Quincy Rocha Work Phone: 3(050)181-278696 [place] [address] 12-25-2024 12:29-0400 Body mass index (BMI) [Ratio] 24.2 kg/m2 Dr. Quincy Rocha Work Phone: 1(939)068-636761 [place] [address] 12-25-2024 12:29-0400 Body weight 70.[address] Quincy Rocha Work Phone: 5(755)646-225361 [place] [address] 07-26-2024 12:09-0500 Body temperature 97.7 [degF] SHAMIKA EARLY MD [facility] 07-26-2024 12:09-0500 Body weight 66.8 kg SHAMIKA EARLY MD [facility] 07-26-2024 12:09-0500 Diastolic Blood Pressure Non-Invasive 75 mm[Hg] SHAMIKA EARLY MD [facility] 07-26-2024 12:09-0500 Heart rate 85 /min SHAMIKA EARLY MD [facility] 07-26-2024 12:09-0500 Respiratory rate 16 /min SHAMIKA EARLY MD [facility] 07-26-2024 12:09-0500 Systolic Blood Pressure Non-Invasive 130 mm[Hg] SHAMIKA EARLY MD [address] [place] [address] 04-09-2024 17:23-0400 Body mass index (BMI) [Ratio] 22.08 kg/m2 Bob Caldwell APRN.MANAGER PATHOLOGY Work Phone: [facility] 04-09-2024 17:23-0400 Body temperature 98.29 [degF] Bob Caldwell APRN.MANAGER PATHOLOGY Work Phone: [facility] 04-09-2024 17:23-0400 Body weight 63.96 kg Bob Caldwell APRN.MANAGER PATHOLOGY Work Phone: [facility] 04-09-2024 17:23-0400 Diastolic blood pressure 84 mm[Hg] Bob Caldwell APRN.MANAGER PATHOLOGY Work Phone: [facility] 04-09-2024 17:23-0400 Heart rate 88 /min Bob aCldwell APRN.MANAGER PATHOLOGY Work Phone: [facility] 04-09-2024 17:23-0400 Respiratory rate 16 /min Bob Caldwell APRN.MANAGER PATHOLOGY Work Phone: [facility] 04-09-2024 17:23-0400 SaO2% (BldA) [Mass fraction] 98 % Bob Caldwell APRN.MANAGER PATHOLOGY Work Phone: [facility] 04-09-2024 17:23-0400 Systolic blood pressure 133 mm[Hg] Bob Caldwell APRN.MANAGER PATHOLOGY Work Phone: [facility] 03-26-2024 15:31-0400 Diastolic blood pressure 80 mm[Hg] Luci Shah MD Work Phone: [facility] 03-26-2024 15:31-0400 Heart rate 88 /min Luci Shah MD Work Phone: [facility] 03-26-2024 15:31-0400 Respiratory rate 18 /min Luci Shah MD Work Phone: [facility] 03-26-2024 15:31-0400 SaO2% (BldA) [Mass fraction] 95 % Luci Shah MD Work Phone: [facility] 03-26-2024 15:31-0400 Systolic blood pressure 137 mm[Hg] Luci Shah MD Work Phone: [facility] 03-26-2024 11:00-0400 Body mass index (BMI) [Ratio] 22.71 kg/m2 Luci Shah MD Work Phone: [facility] 03-26-2024 11:00-0400 Body weight 65.77 kg Luci Shah MD Work Phone: [facility] 03-26-2024 10:57-0400 Body temperature 97.81 [degF] Luci Shah MD Work Phone: [facility] 03-24-2024 22:47-0400 Heart rate 103 /min Desirae LendUp Work Phone: [facility] 03-24-2024 22:47-0400 Respiratory rate 16 /min Desirae [employer]Up Work Phone: [facility] 03-24-2024 22:47-0400 SaO2% (BldA) [Mass fraction] 97 % Desirae [employer]Up Work Phone: [facility] 03-24-2024 21:11-0400 Body height 170.2 cm Desirae Eusebia Work Phone: [facility] 03-24-2024 21:11-0400 Body mass index (BMI) [Ratio] 22.71 kg/m2 Desirae [employer]Up Work Phone: [facility] 03-24-2024 21:11-0400 Body temperature 97.3 [degF] Desirae Rosario Work Phone: [facility] 03-24-2024 21:11-0400 Body weight 65.77 kg Desirae Rosario Work Phone: [facility] 03-24-2024 21:11-0400 Diastolic blood pressure 102 mm[Hg] Desirae Rosario Work Phone: [facility] 03-24-2024 21:11-0400 Systolic blood pressure 153 mm[Hg] Desirae Rosario Work Phone: [facility] 03-16-2024 17:01-0400 Body mass index (BMI) [Ratio] 22.24 kg/m2 Arline Guillermo PA-C Work Phone: [facility] 03-16-2024 17:01-0400 Body temperature 99.5 [degF] Arline Guillermo PA-C Work Phone: [facility] 03-16-2024 17:01-0400 Body weight 64.41 kg Arline Guillermo PA-C Work Phone: [facility] 03-16-2024 17:01-0400 Diastolic blood pressure 81 mm[Hg] Arline Guillermo PA-C Work Phone: [facility] 03-16-2024 17:01-0400 Heart rate 100 /min Arline Guillermo PA-C Work Phone: [facility] 03-16-2024 17:01-0400 Respiratory rate 15 /min Arline Dotyky PA-C Work Phone: [facility] 03-16-2024 17:01-0400 SaO2% (BldA) [Mass fraction] 96 % Arline Guillermo PA-C Work Phone: [facility] 03-16-2024 17:01-0400 Systolic blood pressure 126 mm[Hg] Arline Guillermo PA-C Work Phone: [facility] 12-23-2023 11:42-0400 Body temperature 98.8 [degF] Corral Stanislaus DO Work Phone: [facility] 12-23-2023 11:42-0400 Diastolic blood pressure 85 mm[Hg] Corral Stanislaus DO Work Phone: [facility] 12-23-2023 11:42-0400 Heart rate 81 /min Corral Stanislaus DO Work Phone: [facility] 12-23-2023 11:42-0400 Respiratory rate 18 /min Corral Stanislaus DO Work Phone: [facility] 12-23-2023 11:42-0400 SaO2% (BldA) [Mass fraction] 98 % Corral Stanislaus DO Work Phone: [facility] 12-23-2023 11:42-0400 Systolic blood pressure 145 mm[Hg] Corral Stanislaus DO Work Phone: [facility] 11-24-2023 15:55-0400 Body mass index (BMI) [Ratio] 20.18 kg/m2 Sia Josh-Eibara SHEEP FARMER.MANAGER PATHOLOGY Work Phone: [facility] 11-24-2023 15:55-0400 Body temperature 98.29 [degF] Sia Josh-Eibara SHEEP FARMER.MANAGER PATHOLOGY Work Phone: [facility] 11-24-2023 15:55-0400 Body weight 56.7 kg Sia Josh-Eibara SHEEP FARMER.MANAGER PATHOLOGY Work Phone: [facility] 11-24-2023 15:55-0400 Heart rate 94 /min Sia Josh-Eibara SHEEP FARMER.MANAGER PATHOLOGY Work Phone: [facility] 11-24-2023 15:55-0400 Respiratory rate 18 /min Sia Josh-Eibara SHEEP FARMER.MANAGER PATHOLOGY Work Phone: [facility] 11-24-2023 15:55-0400 SaO2% (BldA) [Mass fraction] 98 % Sia Weinstein APRN.MANAGER PATHOLOGY Work Phone: [facility] 08-11-2023 17:51-0500 Body weight 60.24 kg Johnathon Rivas DO Work Phone: [facility] 08-11-2023 17:46-0500 Body temperature 98.2 [degF] Laurigladis Aurora DO Work Phone: [facility] 08-11-2023 17:46-0500 Diastolic blood pressure 85 mm[Hg] Laurigladis Aurora DO Work Phone: [facility] 08-11-2023 17:46-0500 Heart rate 71 /min Laurigladis Skyla DO Work Phone: [facility] 08-11-2023 17:46-0500 Respiratory rate 18 /min Frankihilda Aurora DO Work Phone: [facility] 08-11-2023 17:46-0500 SaO2% (BldA) [Mass fraction] 97 % Johnathon Rivas DO Work Phone: [facility] 08-11-2023 17:46-0500 Systolic blood pressure 134 mm[Hg] Laurigladis Aurora DO Work Phone: [facility] 05-28-2023 16:28-0500 Body temperature 97.34 [degF] DR MICHELE JACKSON DO [facility] 05-28-2023 16:28-0500 Diastolic Blood Pressure Non-Invasive [address] MICHELE JACKSON DO [facility] 05-28-2023 16:28-0500 Heart rate 75 /min DR MICHELE JACKSON DO [facility] 05-28-2023 16:28-0500 Respiratory rate 16 /min DR MICHELE JACKSON DO [facility] 05-28-2023 16:28-0500 Systolic Blood Pressure Non-Invasive [address] MICHELE JACKSON DO [facility] 05-28-2023 12:41-0500 Body weight 57.[address] MICHELE JACKSON DO [facility] 05-28-2023 12:41-0500 Diastolic Blood Pressure Non-Invasive [address] MICHELE JACKSON DO [facility] 05-28-2023 12:41-0500 Heart rate 79 /min DR MICHELE JACKSON DO [facility] 05-28-2023 12:41-0500 Respiratory rate 17 /min DR MICHELE JACKSON DO [facility] 05-28-2023 12:41-0500 Systolic Blood Pressure Non-Invasive [address] MICHELE JACKSON DO [facility] 05-28-2023 10:06-0500 Body temperature 98.71 [degF] Jason Abarca MD Work Phone: [facility] 05-28-2023 10:06-0500 Body weight 56.7 kg Jason Abarca MD Work Phone: [facility] 05-28-2023 10:06-0500 Diastolic blood pressure 88 mm[Hg] Jason Abarca MD Work Phone: [facility] 05-28-2023 10:06-0500 Heart rate 77 /min Jason Abarca MD Work Phone: [facility] 05-28-2023 10:06-0500 Respiratory rate 16 /min Jason Abarca MD Work Phone: [facility] 05-28-2023 10:06-0500 SaO2% (BldA) [Mass fraction] 98 % Jason Abarca MD Work Phone: [facility] 05-28-2023 10:06-0500 Systolic blood pressure 129 mm[Hg] Jason Abarca MD Work Phone: [facility] 01-15-2023 15:05-0400 Body temperature 98.6 [degF] PARI LARSEN MD FACP [address] [place] [address] 01-15-2023 15:05-0400 Diastolic Blood Pressure Non-Invasive 68 1 PARI LARSEN MD FACP [address] [place] [address] 01-15-2023 15:05-0400 Heart rate 60 /min PARI LARSEN MD FACP [address] [place] [address] 01-15-2023 15:05-0400 Reason For Taking VItal Signs PARI LARSEN MD FACP [address] [place] [address] 01-15-2023 15:05-0400 Respiratory rate 18 /min PARI LARSEN MD FACP [address] [place] [address] 01-15-2023 15:05-0400 Systolic Blood Pressure Non-Invasive 124 1 PARI LARSEN MD FACP [address] [place] [address] 01-15-2023 10:20-0400 Blood Pressure Cuff Size PARI LARSEN MD FACP [address] [place] [address] 01-15-2023 10:20-0400 Blood Pressure Location PARI LARSEN MD FACP [address] [place] [address] 01-15-2023 10:20-0400 Blood Pressure Method PARI LARSEN MD FACP [address] [place] [address] 01-15-2023 10:20-0400 Body temperature 98.42 [degF] PARI LARSEN MD FACP [address] [place] [address] 01-15-2023 10:20-0400 Diastolic Blood Pressure Non-Invasive 45 1 PARI LARSEN MD FACP [address] [place] [address] 01-15-2023 10:20-0400 Heart rate 63 /min PARI LARSEN MD FACP [address] [place] [address] 01-15-2023 10:20-0400 Reason For Taking VItal Signs PARI LARSEN MD FACP [address] [place] [address] 01-15-2023 10:20-0400 Respiratory rate 22 /min PARI LARSEN MD FACP [address] [place] [address] 01-15-2023 10:20-0400 Systolic Blood Pressure Non-Invasive 88 1 PARI LARSEN MD FACP [address] [place] [address] 01-15-2023 06:20-0400 Body temperature 99.5 [degF] PARI LARSEN MD FACP [address] [place] [address] 01-15-2023 06:20-0400 Diastolic Blood Pressure Non-Invasive 33 1 PARI LARSEN MD FACP [address] [place] [address] 01-15-2023 06:20-0400 Heart rate 47 /min PARI LARSEN MD FACP [address] [place] [address] 01-15-2023 06:20-0400 Respiratory rate 18 /min PARI LARSEN MD FACP [address] [place] [address] 01-15-2023 06:20-0400 Systolic Blood Pressure Non-Invasive 82 1 PARI LARSEN MD FACP [address] [place] [address] 01-14-2023 23:43-0400 Reason For Taking VItal Signs PARI LARSEN MD FACP [address] [place] [address] 01-14-2023 17:31-0400 Blood Pressure Cuff Size PARI LARSEN MD FACP [address] [place] [address] 01-14-2023 17:31-0400 Blood Pressure Location PARI LARSEN MD FACP [address] [place] [address] 01-14-2023 17:31-0400 Blood Pressure Method PARI LARSEN MD FACP [address] [place] [address] 01-14-2023 17:31-0400 Heart rate 70 /min PARI LARSEN MD FACP [address] [place] [address] 01-14-2023 14:32-0400 Blood Pressure Cuff Size PARI LARSEN MD FACP [address] [place] [address] 01-14-2023 14:32-0400 Blood Pressure Location PARI LARSEN MD FACP [address] [place] [address] 01-14-2023 14:32-0400 Blood Pressure Method PARI LARSEN MD FACP [address] [place] [address] 01-14-2023 14:32-0400 Heart rate 58 /min PARI LARSEN MD FACP [address] [place] [address] 01-14-2023 10:37-0400 Heart rate 52 /min PARI LARSEN MD FACP [address] [place] [address] 01-13-2023 23:34-0400 Mean blood pressure 59 mm[Hg] PARI LARSEN MD FACP [address] [place] [address] 01-12-2023 03:00-0400 Heart rate 85 /min PARI LARSEN MD FACP [address] [place] [address] 01-11-2023 10:22-0400 Body temperature 98.06 [degF] PARI LARSEN MD FACP [address] [place] [address] 01-11-2023 07:57-0400 Body temperature 97.7 [degF] PARI LARSEN MD FACP [address] [place] [address] 01-11-2023 06:52-0400 Body temperature 99.5 [degF] PARI LARSEN MD FACP [address] [place] [address] 01-06-2023 15:37-0400 Mean blood pressure 74 mm[Hg] PARI LARSEN MD FACP [address] [place] [address] 01-05-2023 14:35-0400 Body height 170.2 cm PARI LARSEN MD FACP [address] [place] [address] 01-05-2023 14:35-0400 Body weight 57.1 kg PARI LARSEN MD FACP [address] [place] [address] 01-05-2023 14:35-0400 Body weight 19.71 kg/m2 PARI LARSEN MD FACP [address] [place] [address] 01-05-2023 13:40-0400 Body temperature 98.24 [degF] PARI LARSEN MD FACP [address] [place] [address] 01-05-2023 13:40-0400 Mean blood pressure 74 mm[Hg] PARI LARSEN MD FACP [address] [place] [address] 01-05-2023 13:27-0400 Body temperature 98.24 [degF] PARI LARSEN MD FACP [address] [place] [address] 01-05-2023 12:27-0400 Body temperature 97.88 [degF] PARI LARSEN MD FACP [address] [place] [address] 01-05-2023 12:25-0400 Respiratory Rate - Anes 0 br/min PARI LARSEN MD FACP [address] [place] [address] 01-05-2023 12:20-0400 Respiratory Rate - Anes 20 br/min PARI LARSEN MD FACP [address] [place] [address] 01-05-2023 12:15-0400 Body temperature 98.6 [degF] PARI LARSEN MD FACP [address] [place] [address] 01-05-2023 12:15-0400 Respiratory Rate - Anes 10 br/min PARI LARSEN MD FACP [address] [place] [address] 01-05-2023 12:10-0400 Body temperature 98.6 [degF] PARI LARSEN MD FACP [address] [place] [address] 01-05-2023 12:05-0400 Body temperature 98.6 [degF] PARI LARSEN MD FACP [address] [place] [address] 01-04-2023 18:40-0400 Body weight 57.1 kg PARI LARSEN MD FACP [address] [place] [address] 12-14-2022 13:42-0400 Body temperature 97.3 [degF] Floyd Donald DO Work Phone: [facility] 12-14-2022 13:42-0400 Body weight 56.7 kg Floyd Shabana DO Work Phone: [facility] 12-14-2022 13:42-0400 Diastolic blood pressure 52 mm[Hg] Floyd Shabana DO Work Phone: [facility] 12-14-2022 13:42-0400 Heart rate 81 /min [place] Shabana DO Work Phone: [facility] 12-14-2022 13:42-0400 Respiratory rate 20 /min Floyd Shabana DO Work Phone: [facility] 12-14-2022 13:42-0400 SaO2% (BldA) [Mass fraction] 97 % Floyd Shabana DO Work Phone: [facility] 12-14-2022 13:42-0400 Systolic blood pressure 113 mm[Hg] [place] Shabana DO Work Phone: [facility] 11-10-2022 11:32-0400 Body height 167.6 cm Giuliana Carson SHEEP FARMER.MANAGER PATHOLOGY Work Phone: [facility] 11-10-2022 11:32-0400 Body weight 61.24 kg Giuliana Carsno SHEEP FARMER.MANAGER PATHOLOGY Work Phone: [facility] 08-28-2022 14:46-0500 Body temperature 97.7 [degF] FRANSISCO PERRY MD [facility] 08-28-2022 14:46-0500 Diastolic Blood Pressure Non-Invasive 60 1 FRANSISCO PERRY MD [facility] 08-28-2022 14:46-0500 Heart rate 73 /min FRANSISCO PERRY MD [facility] 08-28-2022 14:46-0500 Respiratory rate 18 /min FRANSISCO PERRY MD [facility] 08-28-2022 14:46-0500 Systolic Blood Pressure Non-Invasive 92 1 FRANSISCO PERRY MD [address] [place] [address] 08-28-2022 07:22-0500 Body temperature 97.34 [degF] FRANSISCO PERRY MD [address] [place] [address] 08-28-2022 07:22-0500 Diastolic Blood Pressure Non-Invasive 58 1 FRANSISCO PERRY MD [address] [place] [address] 08-28-2022 07:22-0500 Heart rate 90 /min FRANSISCO PERRY MD [address] [place] [address] 08-28-2022 07:22-0500 Respiratory rate 16 /min FRANSISCO PERRY MD [address] [place] [address] 08-28-2022 07:22-0500 Systolic Blood Pressure Non-Invasive 135 1 FRANSISCO PERRY MD [address] [place] [address] 08-27-2022 21:31-0500 Heart rate 100 /min FRANSISCO PERRY MD [address] [place] [address] 08-27-2022 21:31-0500 Respiratory rate 16 /min FRANSISCO PERRY MD [address] [place] [address] 08-27-2022 21:12-0500 Body temperature 97.7 [degF] FRANSISCO PERRY MD [address] [place] [address] 08-27-2022 21:12-0500 Diastolic Blood Pressure Non-Invasive 71 1 FRANSISCO PERRY MD [address] [place] [address] 08-27-2022 21:12-0500 Heart rate 107 /min FRANSISCO PERRY MD [address] [place] [address] 08-27-2022 21:12-0500 Systolic Blood Pressure Non-Invasive 136 1 FRANSISCO PERRY MD [address] [place] [address] 08-26-2022 07:39-0500 Heart rate 76 /min FRANSISCO PERRY MD [address] [place] [address] 08-26-2022 07:39-0500 Reason For Taking VItal Signs FRANSISCO PERRY MD [address] [place] [address] 08-25-2022 20:37-0500 Reason For Taking VItal Signs FRANSISCO PERRY MD [facility] 08-25-2022 14:44-0500 Reason For Taking VItal Signs FRANSISCO PERRY MD [facility] 08-23-2022 22:54-0500 Heart rate 92 /min ANS ORLANDO WILLIAM [facility] 08-23-2022 19:01-0500 Heart rate 91 /min ANS OR[place]O WILLIAM [facility] 08-23-2022 16:47-0500 Heart rate 76 /min FRNASISCO PERRY MD [facility] 07-15-2021 21:15-0500 Diastolic blood pressure 64 mm[Hg] MAIK DOVER MD [facility] 07-15-2021 21:15-0500 Heart rate 74 /min MAIK DOVER MD [facility] 07-15-2021 21:15-0500 Respiratory rate 18 /min MAIK DOVER MD [facility] 07-15-2021 21:15-0500 Systolic blood pressure 110 mm[Hg] MIAK DOVER MD [facility] 07-15-2021 19:17-0500 Diastolic blood pressure 72 mm[Hg] MAIK DOVER MD [facility] 07-15-2021 19:17-0500 Heart rate 102 /min MAIK DOVER MD [facility] 07-15-2021 19:17-0500 Reason For Taking VItal Signs MAIK DOVER MD [facility] 07-15-2021 19:17-0500 Respiratory rate 16 /min MAIK DOVER MD [facility] 07-15-2021 19:17-0500 Systolic blood pressure 116 mm[Hg] MAIK DOVER MD [facility] 07-15-2021 14:58-0500 Body temperature 96.98 [degF] MAIK DOVER MD [facility] 07-15-2021 14:58-0500 Diastolic blood pressure 85 mm[Hg] MAKI DOVER MD [facility] 07-15-2021 14:58-0500 Heart rate 80 /min MAIK DOVER MD [facility] 07-15-2021 14:58-0500 Respiratory rate 20 /min MAIK DOVER MD [facility] 07-15-2021 14:58-0500 Systolic blood pressure 126 mm[Hg] MAIK DOVER MD [facility] 07-15-2021 11:28-0500 Body temperature 98.42 [degF] MAIK DOVER MD [facility] 07-15-2021 11:28-0500 Body weight 73.7 kg MAIK DOVER MD [facility] 07-14-2021 13:26-0500 Body temperature 97.88 [degF] AMADOR KRAMER PA-C [facility] 07-14-2021 13:26-0500 Body weight 72 kg AMADOR KRAMER PA-C [facility] 07-14-2021 13:26-0500 Diastolic blood pressure 93 mm[Hg] AMADOR KRAMER PA-C [facility] 07-14-2021 13:26-0500 Heart rate 96 /min AMADOR KRAMER PA-C [facility] 07-14-2021 13:26-0500 Respiratory rate 18 /min AMADOR KRAMER PA-C [facility] 07-14-2021 13:26-0500 Systolic blood pressure 131 mm[Hg] AMADOR KRAMER PA-C [facility] 2021 15:59-0500 Body temperature 97.7 [degF] YINKA DIAZ MD [facility] 2021 15:59-0500 Diastolic blood pressure 75 mm[Hg] YINKA DIAZ MD [facility] 2021 15:59-0500 Heart rate 111 /min YINKA DIAZ MD [facility] 2021 15:59-0500 Mean blood pressure 94 mm[Hg] YINKA DIAZ MD [facility] 2021 15:59-0500 Respiratory rate 18 /min YINKA DIAZ MD [facility] 2021 15:59-0500 Systolic blood pressure 132 mm[Hg] YINKA DIAZ MD [facility] 07-03-2021 19:43-0500 Body temperature 99.5 [degF] MIGUEL ANGEL PARKER MD [facility] 07-03-2021 19:43-0500 Body weight 74.3 kg MIGUEL ANGEL PARKER MD [facility] 07-03-2021 19:43-0500 Diastolic blood pressure 80 mm[Hg] MIGUEL ANGEL PARKER MD [facility] 07-03-2021 19:43-0500 Heart rate 93 /min MIGUEL ANGEL PARKER MD [facility] 07-03-2021 19:43-0500 Respiratory rate 20 /min MIGUEL ANGEL PARKER MD [facility] 07-03-2021 19:43-0500 Systolic blood pressure 120 mm[Hg] MIGUEL ANGEL PARKER MD [facility] Encounters Encounter Date Encounter Type Care Provider Facility Start: 03-05-2025 End: 03-05-[address] Wojciech Gonzalez MD [facility] Start: 03-05-2025 End: 03-05-[address] Quincy Rocha Work Phone: -[facility] Start: 12-27-2024 End: 01-07-2025 Evaluation and management of inpatient DESIRAE JONESSHER Facility:[id number] Start: 12-25-2024 End: 12-25-2024 Emergency department patient visit Dr. Quincy Rocha Work Phone: -Emergency Department Work Phone: Start: 12-03-2024 End: 12-20-2024 Evaluation and management of inpatient DESIRAE ROSARIO Facility:[id number] Start: 12-02-2024 End: 12-03-2024 Emergency department patient [...] Patient encounter procedure PHY WO ID REFERRING [facility] Start: 07-26-2024 End: 07-26-2024 Emergency department patient visit STORM MURRAY APRN-MANAGER PATHOLOGY Facility:A Start: 07-26-2024 End: 07-26-2024 Emergency department patient visit SHAMIKA EARLY MD [facility] Start: 05-07-2024 End: 05-07-2024 Telephone encounter Lisette Jesus PA-C Work Phone: [facility] Comment on above: Missed Appointment ( 05/01/24 3:00 PM missed new patient appointment /) Start: 04-09-2024 End: 04-09-2024 Office outpatient visit 15 minutes Bob Caldwell APRN.MANAGER PATHOLOGY Work Phone: [facility] Comment on above: UTI symptoms (Primar y Dx) Start: 04-09-2024 End: 04-09-2024 ambulatory DESIRAE ROSARIO Facility:[id number] Start: 03-26-2024 End: 03-26-2024 Subsequent hospital visit by physician [facility] Exam Room [facility] Comment on above: Arrived Start: 03-26-2024 End: 03-26-2024 Emergency department patient visit Luci Shah MD Work Phone: [facility] Comment on above: Abdominal pain, gene ralized (Primary Dx); Agitation; Autistic disorder Start: 03-24-2024 End: 03-24-2024 Emergency department patient [facility] [facility] Comment on above: Bilateral impacted c erumen (Primary Dx); Left otitis media, unspecified otitis media type Start: 03-16-2024 End: 03-16-2024 Patient encounter procedure Arline Guillermo PA-C Work Phone: [facility] Comment on above: Left otitis media, u nspecified otitis media type (Primary Dx) Start: 03-16-2024 End: 03-16-2024 ambulatory SELF Facility:[id number] Start: 01-25-2024 Telephone encounter Kymberly burgess DMD Work Phone: Dentistry Comment on above: Patient Update Start: 01-24-2024 End: 01-24-2024 Orders Only Israel Reis DMD Work Phone: Dentistry Start: 01-23-2024 Orders Only Lesa Rowland DDS Work Phone: Dentistry Comment on above: Facial cellulitis (P rimary Dx) Start: 01-23-2024 Patient encounter status Israel Chato DMD Work Phone: [facility] Work Phone: Start: 01-20-2024 End: 01-20-2024 Emergency department patient visit ZAID MARIE III Facility:[id number] Start: 01-17-2024 End: 01-17-2024 ambulatory [facility] Facility:[id number] Start: 01-17-2024 Encounter for dental examination and cleaning without abnormal findings [facility] Start: 01-17-2024 End: 01-17-2024 Patient encounter procedure Jeff Ambriz DDS Work Phone: Dentistry Comment on above: Encounter for dental examination (Primary Dx) Start: 01-17-2024 End: 01-17-2024 Patient encounter status Jeff Ambriz DDS Work Phone: [facility] Work Phone: Start: 12-29-2023 End: 12-29-2023 ambulatory DESIRAE ROSARIO MD Facility:A Start: 12-23-2023 End: 12-23-2023 Emergency department patient visit CORRAL EUSEBIA [facility] Comment on above: Dermatitis of ear ca nal, bilateral (Primary Dx); Impacted cerumen of right ear; Cerumen in auditory canal on examination Start: 11-25-2023 Patient encounter procedure [facility] Provider [facility] Start: 11-24-2023 End: 11-24-2023 Patient encounter procedure Sia Weinstein APRN.MANAGER PATHOLOGY Work Phone: [facility] Comment on above: Hematuria, unspecifi ed type (Primary Dx); Ear pain, bilateral; Impacted cerumen of right ear Start: 08-11-2023 End: 08-11-2023 Subsequent hospital visit by physician [facility] Ed Ct Exam Room 1 [facility] Imaging Comment on above: Arrived Start: 08-11-2023 End: 08-11-2023 Emergency department patient visit Johnathon Rivas DO Work Phone: [facility] Comment on above: Head injury, initial encounter (Primary Dx) Start: 05-28-2023 End: 05-28-2023 Emergency department patient visit DR MICHELE JACKSON DO [facility] Start: 05-28-2023 End: 05-28-2023 Patient encounter procedure Jason Abarca MD Work Phone: [facility] Comment on above: Dysuria (Primary Dx) ; Cognitive and behavioral changes Start: 04-07-2023 ambulatory ZAID HERNÁNDEZ III Facility:[facility] Start: 04-07-2023 End: 04-07-2023 Subsequent hospital visit by physician Gi/Gu 1 [place] [facility] Comment on above: Arrived Start: 01-04-2023 End: 01-15-2023 Evaluation and management of inpatient PARI LARSEN MD FACP [facility] Start: 12-14-2022 End: 12-14-2022 Office outpatient visit 15 minutes Floyd Donald Work Phone: [facility] [place] Comment on above: Bite (Primary Dx) Start: 11-15-2022 End: 11-15-2022 Subsequent hospital visit by physician [facility] 3 [facility] Comment on above: Gross hematuria [R31 .0] Start: 11-10-2022 End: 11-10-2022 Patient encounter procedure Giuliana Carson APRN.MANAGER PATHOLOGY Work Phone: Urology Comment on above: Sensory urge inconti nence (Primary Dx); Gross hematuria Start: 10-29-2022 End: 10-29-2022 Subsequent hospital visit by physician [facility] 1 [facility] Comment on above: Pelvic and perineal pain [R10.2] Start: 08-23-2022 End: 08-28-2022 Evaluation and management of inpatient ANS ORLANDO WILLIAM [facility] Start: 07-15-2021 End: 07-15-2021 Emergency department patient visit MAIK DOVER MD [facility] Start: 07-14-2021 End: 07-14-2021 Emergency department patient visit AMADOR KRAMER PA-C [facility] Start: 2021 End: 2021 Emergency department patient visit YINKA DIAZ MD [facility] Start: 07-07-2021 Patient encounter procedure Jason Abarca MD Work Phone: [facility] Start: 07-07-2021 Progress Note Jason hardy MD Work Phone: [facility] Start: 07-03-2021 End: 07-03-2021 Emergency department patient visit MIGUEL ANGEL PARKER MD [facility] Start: 07-03-2021 End: 07-03-2021 Subsequent hospital visit by physician C[facility] Provider [facility] Comment on above: URINARY BURNING,CONF USION Start: 05-19-2016 End: 05-20-2016 ambulatory PRAVEEN S KETTY [facility] [place] Procedures Date Procedure Procedure Detail [...] test visual color cmprsn meths Bob Javi SHEEP FARMER.MANAGER PATHOLOGY Work Phone: Start: 03-26-2024 Ct abdomen & pelvis w/o contrast material Leigha Siegel SHEEP FARMER - MANAGER PATHOLOGY Work Phone: Start: 03-26-2024 SARS-COV-2, FLU A/B, AND RSV COMBO Leigha Siegel SHEEP FARMER - MANAGER PATHOLOGY Work Phone: Start: 03-26-2024 Urinalysis complete panel - Urine Leigha Siegel SHEEP FARMER - MANAGER PATHOLOGY Work Phone: Start: 03-26-2024 Urnls dip stick/tabl et reagent auto microscopy Leigha Siegel SHEEP FARMER - MANAGER PATHOLOGY Work Phone: Start: 03-26-2024 Comprehensive metabo lic panel Leigha Siegel SHEEP FARMER - MANAGER PATHOLOGY Work Phone: Start: 03-26-2024 Ecg routine ecg w/le ast 12 lds trcg only w/o i&r Leigha Siegel SHEEP FARMER - MANAGER PATHOLOGY Work Phone: Start: 01-17-2024 LIMITED ORAL EVALUAT ION - PROBLEM FOCUSED Kymberly Mckenzie Nachodiane DMD Work Phone: Start: 11-24-2023 Urnls dip stick/tabl et rgnt auto w/o microscopy Sia Weinstein SHEEP FARMER.MANAGER PATHOLOGY Work Phone: Start: 08-11-2023 Ct head/brain w/o co ntrast material Laurigladis Skyla DO Work Phone: Start: 04-07-2023 Radiologic exam esop hagus single contrast study Desirae Rosario MD Work Phone: Start: 11-15-2022 Us retroperitoneal r eal time w/image complete Giuliana Carson APRN.MANAGER PATHOLOGY Work Phone: Start: 11-10-2022 Urnls dip stick/tabl et rgnt auto w/o microscopy Giuliana Carson SHEEP FARMER.MANAGER PATHOLOGY Work Phone: Start: 10-29-2022 Us pelvic nonobstetr ic real-time image complete Ccf Provider None (qualifier value) MIGUEL ANGEL PARKER MD Plan of Treatment Date Care Activity Detail Author Start: 2052 RSV Immunization for Adults (1 - 1-dose 75+ series) RSV Immunization for Adults (1 - 1-dose 75+ series) [facility] Start: 2037 RSV Immunization age d 60 or older (1 - 1-dose 60+ series) RSV Immunization aged 60 or older (1 - 1-dose 60+ series) [facility] Start: 07-03-2032 DTaP/Tdap/Td Vaccine s (2 - Td or Tdap) DTaP/Tdap/Td Vaccines (2 - Td or Tdap) [facility] Start: 07-03-2032 Urine microalbumin profile DTaP,Tdap,Td Vaccine (2 - Td or Tdap) [facility] Start: 2027 Zoster Vaccines (1 of 2) Zoste r Vaccines (1 of 2) [facility] Start: 03-26-2027 Diabetes Screening Diabetes Screenin [facility] Start: 01-19-2027 Diabetes Screening Diabetes Screenin g [facility] Start: 03-05-2025 End: 03-05-2025 Plain x-ray of wrist [facility] Start: 03-05-2025 XR Wrist GE 3 Views Mota ster [facility] Start: 03-05-2025 XR Wrist 2 Views oste [facility] Start: 12-25-2024 [facility] Start: 12-25-2024 [facility] Start: 12-25-2024 Bacteria identified in Urine by Culture Urine Culture [facility] Start: 07-09-2024 End: 07-09-2024 Patient encounter procedure 07/09/2024 3:30 PM EST Office Visit Dentistry [address] [place] [address] Willy Noriega DDS [address] [facility] [address] [place] [address] Comp Exam $3 Dentistry Comment on above: Comp Exam $3 Start: 03-18-2024 COVID-19 Vaccine ( season) COVID-19 Vaccine ( season) [facility] Start: 03-18-2024 Covid-19 Vaccine ( season) Covid-19 Vaccine ( season) [facility] Start: 03-18-2024 Influenza vaccination C [facility] Start: 01-24-2024 End: 01-24-2024 Admission to same day surgery center 01/24/2024 1:00 PM EDT - 01/24/2024 3:20 PM EDT Surgery [facility] [address] [place] [address] Kymberly Sethi, DMD [address] [place] [address] [facility] Comment on above: [facility] Start: 01-24-2024 Subsequent hospital visit by physician 01/24/2024 1:00 PM EDT Hospital Encounter [facility] [address] [address] Kymberly Sethi, DMD [address] [address] Facial cellulitis [L03.211] [facility] Comment on above: Facial cellulitis [L 03.211] Start: 01-24-2024 End: 01-24-2024 Unlisted procedure dentoalveolar structures MR OR Start: 07-18-2023 Behavioral Health Screening Behavioral Health Screening [facility] Start: 03-18-2023 Covid-19 Vaccine () Covid-19 Vaccine () [facility] Start: 03-18-2023 Influenza vaccination C [facility] Start: 07-18-2022 DEPRESSION ASSESSMENT DEPRESSION ASS ESSMENT [facility] Start: 2022 COLOGUARD (FIT-DNA) COLOGUARD (FIT-D NA) [facility] Start: 2022 Colonoscopy COLONOSCOPY [facility] Start: 2022 COLORECTAL CANCER SCREENING COLORECTAL CANCER SCREENING [facility] Start: [address] COLONOGRAPHY [facility] Start: 2022 DIABETES SCREEN DIABETES SCREEN [facility] Start: 2022 Diabetes Screening Diabetes Screenin g [facility] Start: 2022 FECAL OCCULT BLOOD FECAL OCCULT BLOO D [facility] Start: 2022 Lipid 1996 panel - S deny or Plasma Lipid Screening [facility] Start: 2022 Lipid panel Lipid Screening [facility] Start: 2022 LIPID SCREEN LIPID SCREEN [facility] Start: 2022 Screening for malign ant neoplasm of colon [facility] Start: 2022 SIGMOIDOSCOPY [facility] Start: 03-18-2022 Influenza vaccination INFLUENZ A (Season Ended) [facility] Start: 09-07-2021 COVID-19 VACCINE (4 - Booster for Pfizer series) COVID-19 VACCINE (4 - Booster for Pfizer series) [facility] Start: 09-07-2021 Covid-19 Vaccine (4 - Pfizer series) Covid-19 Vaccine (4 - Pfizer series) [facility] Start: 03-18-2021 Influenza vaccination INFLUENZA (#1) [facility] Start: 2017 Mammography [facility] Start: 2017 Screening for malign ant neoplasm of breast [facility] Start: 2007 HPV TESTING HPV TESTING [facility] Start: 2007 Screening for malign ant neoplasm of cervix [facility] Start: 1998 PAP TESTING PAP TESTING [facility] Start: 1998 Screening for malign ant neoplasm of cervix [facility] Start: 1996 Hepatitis B Vaccine (1 of 3 - 19+ 3-dose series) Hepatitis B Vaccine (1 of 3 - 19+ 3-dose series) [facility] Start: 1996 Hepatitis B Vaccines (1 of 3 - 19+ 3-dose series) Hepatitis B Vaccines (1 of 3 - 19+ 3-dose series) [facility] Start: 1996 Urine microalbumin profile [facility] Start: 1995 Anxiety Screening Anxiety Screening [facility] Start: 1995 Depression Screening Depression Scre ening [facility] Start: 1995 HEPATITIS C SCREENING HEPATITIS C [facility] Start: 1995 Hepatitis C screening Hepatitis C [facility] Start: 1995 HIV SCREENING HIV SCREENING [facility] Start: 1995 HIV screening HIV Screening [facility] Start: 1989 Adult depression screening assessment DEPRESSION SCREENING [facility] Start: 1982 COVID-19 VACCINE (#1) COVID-19 VACCI NE (#1) [facility] Start: 1982 COVID-19 VACCINE (1) COVID-19 VACCIN E (1) [facility] Start: 1978 MMR Vaccines (1 of 1 - Standard series) MMR Vaccines (1 of 1 - Standard series) [facility] Start: 1977 HEPATITIS B (1 of 3 - 3-dose series) HEPATITIS B (1 of 3 - 3-dose series) [facility] Start: 1977 Hepatitis B Vaccine (1 of 3 - 3-dose series) Hepatitis B Vaccine (1 of 3 - 3-dose series) [facility] Start: 1977 Hepatitis B Vaccines (1 of 3 - 3-dose series) Hepatitis B Vaccines (1 of 3 - 3-dose series) [facility] Start: 1977 HIV screening HIV Screening [facility] Start: 1977 Screening for malign ant neoplasm of colon [facility] Bacteria identified in Urine by Culture URINE CULTURE Microbiology Routine Hematuria, unspecified type 11/24/2023 4:27 PM EDT [facility] Work Phone: Bacteria identified in Urine by Culture URINE CULTURE Microbiology Routine UTI symptoms 04/09/2024 5:34 PM EDT [facility] Work Phone: Patient Education ED ALOC ED Cys titis Female Adult [facility] Work Phone: Patient referral [facility] Work Phone: Urine culture [facility] End: 12-10-2023 US KIDNEY/BLADDER US KIDNEY/BLADDER Radiology Routine Gross hematuria 1 Occurrences starting 11/10/2022 until 12/10/2023 [facility] Work Phone: Comment on above: 1 Occurrences starti ng 11/10/2022 until 12/10/2023 [facility] Immunizations Immunization Date Immunization Notes Care Provider [facility] 07-03-2022 tetanus toxoid, redu yehuda diphtheria toxoid, and acellular pertussis vaccine, adsorbed; Translations: [Boostrix (Tdap)] FRANSISCO PERRY MD [facility] 07-13-2021 SARS-CoV-2 mRNA (tozinameran) vaccine FRANSISCO PERRY MD [facility] 08-22-2020 SARS-CoV-2 mRNA (tozinameran) vaccine FRANSISCO PERRY MD [facility] 08-01-2020 SARS-CoV-2 mRNA (tozinameran) vaccine FRANSISCO PERRY MD [facility] 07-09-2020 influenza virus vaccine, unspecified formulation FRANSISCO PERRY MD [facility] 07-09-2020 influenza, injectabl e, quadrivalent, contains preservative Corral Stanislaus DO Work Phone: [facility] 04-15-2018 influenza virus vaccine, unspecified formulation FRANSISCO PERRY MD [facility] 04-15-2018 influenza, injectabl e, quadrivalent, preservative free Corral Stanislaus DO Work Phone: [facility] 04-18-2017 influenza virus vaccine, unspecified formulation FRANSISCO PERRY MD [facility] 04-18-2017 influenza, injectabl e, quadrivalent, preservative free Corral Stanislaus DO Work Phone: [facility] 05-03-2014 influenza virus vaccine, unspecified formulation FRANSISCO PERRY MD [facility] 05-03-2014 influenza, live, intranasal, quadrivalent Corral Stanislaus DO Work Phone: [facility] Payers Date Payer Category Payer Self-pay 2023 Unknown DENTAL [facility] DENTAL [id number] 2023-Present [phone] [address] [place] [address] Dental [id number] [address]508.[facility] 2018 Medicare [id number] 62790.[facility] 2018 Medicare [id number] 2016 Medicaid MEDICAID [facility] MEDICAID [id number] 2016-Present [phone] [address] [place] [address] Medicaid [id number] 65886.[facility] 2016 Medicaid [id number] 45198.[facility] 2016 Medicaid [id number] 1975 Unknown [id number] 1975 Unknown [id number] 1977 Unknown [id number] 1977 Unknown [id number] [id number] 1977 Unknown [id number] [id number]. 1977 Unknown [id number] 2.16840.1.496307.3.579.2. 1977 Unknown [id number] 2.840.1.179009.3.579.2. 1977 Unknown [id number] [id number]. 1977 Unknown [id number] 2.840.1.817043.3.579.2. 1977 Unknown [id number] [id number] 1977 Unknown [id number] Unknown [id number] Unknown [id number] Unknown [id number] Unknown [id number] Social History Date Type Detail Facility Start: 11-20-2010 End: 02-20-2025 Tobacco smoking status NHIS Never smoked tobacco [facility] Work Phone: Start: 11-20-2010 End: 08-11-2023 Tobacco use and exposure Smokeless tobacco non-user [facility] Work Phone: Start: 05-19-2016 End: 03-16-2024 Alcohol intake Current non-drinker of alcohol (finding) [facility] Start: 1975 Sex Assigned At Not on file [facility] Sex Assigned At [facility] Start: 12-14-2022 End: 03-26-2024 History of Social function [facility] Start: 12-14-2022 End: 03-26-2024 Tobacco use panel [facility] National Score (1-100), lower number is lower risk 79 [facility] Start: 08-11-2023 End: 03-26-2024 Alcohol intake Ex-drinker (finding) [facility] Start: 08-26-2005 End: 02-15-2022 Sex Female (finding) [facility] Start: 1975 Sex Assigned At Female [facility] NEGATED: Highlighted rowStart: NINF History of tobacco use Passive smoker [facility] Functional Status Date Assessment Result Facility 05-28-2023 Functional Status ID band on, Call device within reach, Bed in low position, Wheels locked, Upper/Half-Length side-rails up, Phone within reach, personal items within reach, Visitor at bedside, Safety level maintained [facility] 05-28-2023 Functional Status [facility] 01-15-2023 Functional Status Room check performed [facility] 01-15-2023 Functional Status [facility] 01-15-2023 Functional Status [facility] 01-15-2023 Functional Status Yes [facility] 01-15-2023 Functional Status [facility] 01-14-2023 Functional Status [facility] 01-14-2023 Functional Status Special Call D evice Unable to use call device [facility] 01-14-2023 Functional Status 100 [facility] 01-14-2023 Functional Status [facility] 01-14-2023 Functional Status [facility] 01-13-2023 Functional Status Skin Care Prev entative Intervention(s) heel(s)s elevated [facility] 01-13-2023 Functional Status Done [facility] 01-13-2023 [...] spital 01-10-2023 Functional Status NPO Status Maintained [facility] 01-10-2023 Functional Status [facility] 01-09-2023 Functional Status [facility] 01-09-2023 Functional Status [facility] 01-08-2023 Functional Status SCD On/Re-applied bilat eral knee [facility] 01-08-2023 Functional Status [facility] 01-08-2023 Functional Status [facility] 01-08-2023 Functional Status [facility] 01-08-2023 Functional Status [facility] 01-06-2023 Functional Status Living Situation custodial [facility] 01-05-2023 Functional Status Patient Identi fied Identification band, Verbal [facility] 08-28-2022 Functional Status SCD Removed/Off bilater al knee [facility] 08-28-2022 Functional Status Room check per formed, Paper Tester at bedside [facility] 08-28-2022 Functional Status [facility] 08-27-2022 Functional Status [facility] 08-27-2022 Functional Status [facility] 08-27-2022 Functional Status Done [facility] 08-27-2022 Functional Status [facility] 08-25-2022 Functional Status Maximum assistance [facility] 08-24-2022 Functional Status Hospital bed [facility] 08-24-2022 Functional Status [facility] 08-23-2022 Functional Status [facility] Mental Status Date Assessment Result Facility 12-25-2024 Cognitive function Voice/Name Jammie Lopez [facility] Work Phone: 05-28-2023 Mental Status Orientation Oriented x 4 [facility] 05-28-2023 Mental Status [facility] 01-15-2023 Mental Status Orientation Does not intera ct [facility] 01-14-2023 [facility] Status [facility] 01-13-2023 Mental Status [facility] 08-28-2022 Mental Status Orientation Does not interact, Other: Patient states no when answering questions [facility] 08-27-2022 Mental Status [facility] 08-27-2022 Mental Status [facility] 08-26-2022 Mental Status Orientation Asse ssment Confused [facility] 08-25-2022 Mental Status [facility] 08-25-2022 Mental Status [facility] Clinical Notes 07-04-2021 to 01-06-2025 Telephone [...] Note [facility] 12-27[facility]2024 Note [facility] 12-27-2024 Note SARS-COV-2 (AGENT OF COVID-19) RNA: Not detected INFLUENZA A RNA: Not detected INFLUENZA B RNA: Not detected RESPIRATORY SYNCYTIAL VIRUS (RSV) RNA: Not detected [facility] Comment on above: Performed By: #### 9 [id number] ####[facility]ORATORYCLIA [id number] [place] [address] [facility] 12-25-2024 Radiology Diagnostic study note [facility] Imaging Services [address], [place] [id number] Brain/Head without Contrast MR#: [id number] Acct: [id number] Name: SHARLA JOINER Rep #: [id number] : 1975 F 49 From: Shorty Cassidy MD PCP: Abby Carrillo MD Status: PRE ER Study:Brain/Head without Contrast Date of Exa m: 12/25/24 Exam# [id number] Ordering Dr: Quincy Clarke DO PROCEDURE: BRAIN/HEAD [...] temporal lobes. Hyperostosis frontalis interna. Reading Location: [place] [address] CC: Abby Carrillo MD; Dr. Quincy Clarke DO ~ Retail [facility] Receptionist: Signed [facility] 12-25-2024 Radiology Diagnostic study note [facility] Imaging Services [address] [place] [address] Chest 1 View (Portable) MR#: [id number] Acct: [id number] Name: SHARLA JOINER Rep #: [id number] : 1975 F 49 From: Shorty Cassidy MD PCP: Abby Carrillo MD Status: PRE ER Study:Chest 1 View (Portable) Date of Exam: 12/25/24 Exam# [id number] Ordering Dr: Quincy Clarke DO PROCEDURE: CHEST 1 VIEW (PORTABLE) 12/25/2024 REASON FOR EXAM: ALTERED MENTAL STATUS TECHNIQUE: Frontal view of the chest. COMPARISON: None FINDINGS: Hardware: EKG electrodes are seen. Heart: The heart is nonenlarged. Lungs: Lungs are clear. Bones: The bones are unremarkable. Other: RAD/Chest 1 View (Portable) IMPRESSION: No Acute Findings. Reading Location: [place] [address] CC: Abby Carrillo MD; Dr. Quincy Clarke DO ~ [facility] Receptionist: Signed [facility] 12-19-2024 Note [facility] 12-18-[facility] [...] Medical Ce nter 12-11-2024 Note HNO ID: [id number] Author: JOSE MINOR RN Service: Nursing Author Type: Registered Nurse Type: Nursing Progress Note Filed: 12/11/2024 14:41 Note Text: Called Legal guardian (mom) to fill out MRI form, no response. Will try calling again. [facility] 12-10-2024 Note [facility] 12-09-2024 Note HNO ID: [id number] Author: NYDIA VICTOR, TENA Service: Nursing Author Type: Registered Nurse Type: Nursing Progress Note Filed: 12/09/2024 15:55 Note Text: Mts called about iv fluids not compatabile [facility] [facility] 12-[facility]-2024 Note HNO ID: [id number] Author: KWAME HUSSEIN, TENA Service: ? Author Type: Registered Nurse Type: Nursing Progress Note Filed: 12/09/2024 15:26 Note Text: Report given to oncoming nurse. [facility] 12-09-2024 Note [facility] 12-08-2024 Note [facility] nt 12-07-2024 [facility]24 Note HNO ID: [id number] Author: NYDIA VICTOR RN Service: Nursing Author Type: Registered Nurse Type: Nursing Progress Note Filed: 12/06/2024 19:46 Note Text: Spoke with jail updated on discharge plans [facility] 12-06-2024 Note [facility] 12-05-2024 Note HNO ID: [id number] Author: NYDIA VICTOR, TENA Service: Nursing Author Type: Registered Nurse Type: Nursing Progress Note Filed: 12/05/2024 22:34 Note Text: Pt turned bed alarm on [facility] 12-05-2024 Note [facility] nter 12-04-2024 Note [facility] 12-04-2024 Note [facility] 12-03-2024 Note SARS-COV-2 (AGENT OF COVID-19) RNA: Not detected INFLUENZA A RNA: Not detected INFLUENZA B RNA: Not detected RESPIRATORY SYNCYTIAL VIRUS (RSV) RNA: Not detected [facility] Comment on above: Performed By: #### 9 [id number] ####[facility]ORY[facility] [id number] [address] STATES OF [facility] 10-21-2024 Note . MICRO - Microbiology [...] Locations *1: This test was performed at: [address], [address] [place] [address] 10-21-2024 Note . MICRO - Microbiology PROCEDURE: [...] Locations *1: This test was performed at: [address], [address] [place] [address] 10-19-2024 Note . MICRO - Microbiology PROCEDURE: [...] Locations *1: This test was performed at: [facility], [address] [place] [address], [address] , DILSHADVAZQUEZ GUAN 06-04-2024 Telephone encounter Note Referral closed [facility] 06-04-2024 Miscellaneous Notes Referral closed Name [...] Name of caller: Annie Contact phone number: [phone] Relationship to Patient: Caregiver - Alpha Personal Care Provider: Lisette Jesus PA-C Practice: [facility] Chief Complaint/Reason for Call: Annie called in regarding Sharla's 05/01/24 3:00 PM missed new patient appointment, and states that Sharla had an appointment with Dr. Peggy Howard at [facility] on 04/11 and [facility]. Please be advised. Best time of day caller can be reached: Any Patient advised that office/PCP has 24-48 business hours to return their call: Yes documented in this encounter [facility] 06-04-2024 Telephone encounter Note Name of Caller: Annie Contact Reason for Appointment: Barbara called because they received a letter stating there was a missed appointment. She said they called prior and after. Sharla has her own ENT. Please make note she has another provider for ENT and will not be making another appointment. Please advise. Office Name: ENT [facility] 05-07-2024 Telephone encounter Note Name of caller: Annie Contact phone number: [phone] Relationship to Patient: Caregiver - Alpha Personal Care Provider: Lisette Jesus PA-C Practice: [facility] Chief Complaint/Reason for Call: Annie called in regarding Sharla's 05/01/24 3:00 PM missed new patient appointment, and states that Sharla had an appointment with Dr. Peggy Howard at [facility] on 04/11 and did not wish to reschedule with [facility] Sharla at this time. Please be advised. Best time of day caller can be reached: Any Patient advised that office/PCP has 24-48 business hours to return their call: Yes [facility] 05-07-2024 Miscellaneous Notes Name of caller: Annie Contact phone number: [phone] Relationship to Patient: Caregiver - Alpha Personal Care Provider: Lisette Jesus PA-C Practice: [facility] Chief Complaint/Reason for Call: Annie called in regarding Sharla's 05/01/24 3:00 PM missed new patient appointment, and states that Sharla had an appointment with Dr. Peggy Howard at [facility] on 04/11 and did not wish to reschedule with [facility] Sharla at this time. Please be advised. Best time of day caller can be reached: Any Patient advised that office/PCP has 24-48 business hours to return their call: Yes documented in this encounter [facility] 04-09-2024 Instructions Bob Caldwell APRN.MANAGER PATHOLOGY - 04/09/2024 6:04 PM EDT - Medications [...] have an infection. documented in this encounter [facility] 04-09-2024 Note Janny horton 04-09-2024 History [...] year ,,,@time she was in for throat @[place] ,,,grand mal -she was in [place] because chicken caught in her throat ACTIVE [...] 30 seconds then expectorate 473 mL 0 Mrzjcauqvvdve-Omjwvlbw-Ypymai (MULTIVITAMIN 50 PLUS) tab Take 1 tablet [...] of the software.) documented in this encounter [facility] 03-26-2024 Emergency department Note EKG, IV, blood work, covid and straight cath completed with assistance of Juliette Ponce RN, Juan medic and Mary lópez; patient tolerated well. Respirations even and unlabored, no distress noted. Caregiver at bedside throughout all procedures and remains with patient after Trish Miranda RN 03/26/24 1316 [facility] 03-26-2024 Emergency department Note EKG, IV, blood work, covid and straight cath completed with assistance of Juliette Ponce RN, Juan medic and Mary lópez; patient tolerated well. Respirations even and unlabored, no distress noted. Caregiver at bedside throughout all procedures and remains with patient after Trish Miranda RN 03/26/24 1316 EKG performed by Mary lópez and given to for review Trish Miranda RN 03/26/24 1303 EMERGENCY DEPARTMENT ENCOUNTER [...] not sleeping, strengthening other staff at the jail. Patient is autistic has developmental delay, she was here couple days ago had to give her Ativan and Versed eventually family and jail employee just wanted to take her back [...] In compliance with this authorization, please visit www.fda.gov/media/604862/download or www.fda.gov/media/346199/download to access the applicable information sheets. LIPASE [...] Culture. Procedure Abnormality Status --------- ------ Complete Urinalysis[[id number]] Abnormal Final result Please view results for [...] not sleeping, strengthening other staff at the jail. Patient is autistic has developmental delay, she was here couple days ago had to give her Ativan and Versed eventually family and jail employee just wanted to take her back [...] intervals. I also reviewed external records from [facility]. I discussed their care with [facility]. Consideration for escalation of care with: Admission/observation for medication adjustments due to behavior however the staff from jail states her to take her back to the jail they will follow-up with the provider for medication adjustments, she required several dosages of medication to sedate her I am Versed, ketamine and then another dose of IV Versed so we can get the CT performed, when she is awake will discharge home with jail staff.. The patient will be Discharged. Patient [...] Desirae Rosario [address] [facility] [address] DISCHARGE MEDICATIONS: New Prescriptions No medications on [...] Braswell CNP 03/26/24 1549 Emergency Department Encounter [facility] Patient: Sharla Jioner : 1975 Date of Evaluation: 03/26/2024 ED [...] for agitation. Patient brought in by her avionics systems repairer from her jail. She has autism she does verbalize at baseline but does not make sense at baseline. The avionics systems repairer states she has been complaining of pain when she has bowel movements and she has been aggressive with others not acting herself. She has not been eating drinking or sleeping. She was seen here few days ago and diagnosed with possible ear infection. Button Maker did not report any rash to the [...] dictating provider for clarification.) Luci Shah MD [facility] Luci Shah MD 03/26/24 1223 documented in this encounter [facility] 03-26-2024 Emergency department Note EKG performed by Mary lópez and given to MD for review Trish Miranda RN 03/26/24 1303 [facility] 03-26-2024 Physician Emergency department Note EMERGENCY [...] not sleeping, strengthening other staff at the jail. Patient is autistic has developmental delay, she was here couple days ago had to give her Ativan and Versed eventually family and jail employee just wanted to take her back [...] In compliance with this authorization, please visit www.fda.gov/media/041565/download or www.fda.gov/media/704824/download to access the applicable information sheets. LIPASE [...] Culture. Procedure Abnormality Status --------- ------ Complete Urinalysis[[id number]] Abnormal Final result Please view results for [...] not sleeping, strengthening other staff at the jail. Patient is autistic has developmental delay, she was here couple days ago had to give her Ativan and Versed eventually family and jail employee just wanted to take her back [...] due to behavior however the staff from jail states her to take her back to the jail they will follow-up with the provider for medication adjustments, she required several dosages of medication to sedate her I am Versed, ketamine and then another dose of IV Versed so we can get the CT performed, when she is awake will discharge home with jail staff.. The patient will be Discharged. Patient [...] Desirae Rosario [address] [place] [id number] DISCHARGE MEDICATIONS: New Prescriptions No medications on [...] CNP (electronically signed) Emergency Medicine Provider ANDREW Braswlel CNP 03/26/24 1549 [facility] 03-26-2024 Physician Emergency department Note Emergency Department Encounter [facility] EMERGENCY DEPT Patient: Sharal Joiner : 1975 Date of Evaluation: 03/26/2024 [...] for agitation. Patient brought in by her avionics systems repairer from her jail. She has autism she does verbalize at baseline but does not make sense at baseline. The avionics systems repairer states she has been complaining of pain when she has bowel movements and she has been aggressive with others not acting herself. She has not been eating drinking or sleeping. She was seen here few days ago and diagnosed with possible ear infection. Button Maker did not report any rash to the [...] for clarification.) Luci Shah MD Acute Care [facility] Luci Shah MD 03/26/24 1223 [facility] Phone: 03-24-2024 Emergency department Note Mother states the patient is finally at a point where they can take her home and she will go to bed and sleep. Mother states she does not want the lab tests at this time and states she will bring her back if there is a need. Lalit RADHA notified. Matt Mix RN 03/24/242249 [facility] 03-24-2024 Emergency department Note Mother states [...] at this time. Sheridan Deng RN 03/24/24 4368 documented in this encounter [facility] 03-24-2024 Hospital Discharge instructions ANDREW Bermeo CNP - 03/24/2024 10:46 PM EDT Please pick your medications from the pharmacy and take as instructed. Please make appointment to follow-up with ENT in 2 days. Please make appointment to follow-up with your PCP in 2 days. The following attachments cannot be sent through Care Everywhere.Ear Wax Impaction Discharge Instructions (Grenadian)Ear Infections (Otitis Media) in Adults Discharge Instructions (Grenadian)documented in this encounter [facility] 03-24-2024 Emergency department Note Pt still pacing in room and unable to draw blood at this time. Matt Mix RN 03/24/247 [facility] 03-24-2024 Emergency department Note Patient very agitated and restless, patient refusing to stay in room and remains uncooperative. Lalit ORNELAS notified. Unable to obtain blood work at this time. Sheridan Deng RN 03/24/24 7821 [facility] 03-16-2024 Note [facility] nt 03-16-2024 History of Present illness [...] year ,,,@time she was in for throat [place] ,,,grand mal -she was in [place] because chicken caught in her throat ACTIVE [...] 30 seconds then expectorate 473 mL 0 Zvgjhzfenzsfd-Tggwjbtv-Gjhobw (MULTIVITAMIN 50 PLUS) tab Take 1 tablet [...] Arline Guillermo PA-C documented in this encounter [facility] 01-25-2024 Telephone encounter Note Post op ck via the childcare teacher, Annie Alvarez. Pt doing well, reinforced post ops. Kymberly Sethi [facility] Work Phone: 01-25-2024 Miscellaneous Notes Post op ck via the childcare teacher, Annie Alvarez. Pt doing well, reinforced post ops. Kymberly Sethi documented in this encounter [facility] 01-24-2024 Note [facility] 01-24-2024 Note HNO ID: [id number] Author: LESA ROWLAND DDS Service: ? Author Type: Resident Type: Progress Notes Filed: 01/24/2024 10:05 Note Text: Post operative medications [facility] 01-24-2024 History of Present illness Narrative Post operative medications documented in this encounter [facility] 01-23-2024 Note [facility] 01-23-2024 Note [facility] 01-23-2024 Note HNO ID: [id number] Author: REINALDO CASTRO RN Service: Nursing Author Type: Registered Nurse Type: Nursing Progress Note Filed: 01/23/2024 11:50 Note Text: Mom will be available for phone call ,for consent for surgery and anesthesia dos [facility] 01-17-2024 Note [facility] 01-17-2024 History of Present illness Narrative I [...] Jeff Ambriz DDS documented in this encounter [facility] 01-17-2024 Note [facility] nt 12-23-2023 Hospital Discharge instructions Marcella [...] greater than 101 documented in this encounter [facility] 12-23-2023 Emergency department Note EMERGENCY DEPARTMENT [...] emergency department with a personal-care tach from [employer], for evaluation of left ear irritation with [...] this to the patient and her patient medicare coordinator and recommended that they continue to use [...] TO: Shayna Rosario DO [address] [facility] [id number] In 1 week For symptom recheck. [...] PA-C 12/23/23 1229 documented in this encounter [facility] 12-23-2023 Physician Emergency department Note EMERGENCY [...] emergency department with a personal-care tach from [employer], for evaluation of left ear irritation with [...] this to the patient and her patient medicare coordinator and recommended that they continue to use [...] TO: Shayna Rosario DO [address] [id number] In 1 week For symptom recheck. DISCHARGE [...] Medicine Provider Marcella Ryan PA-C 12/23/23 1229 [facility] 11-24-2023 History of Present illness Narrative Sharla Joiner is a 48 year old female who presents with Ear Problem (B/l ear pain x3ays) and UTI (Urinary frequency w odor x3 days //No chance sti nor ) 48-year-old female presents today with bilateral ear pain in urine frequency for the last 2 days. Patient is present today with a avionics systems repairer. No fevers reported. History of hematuria per [...] go to ER for evaluation. Sia Weinstein APRN.MANAGER PATHOLOGY This note was partially generated using [employer] recognition system, and there may be some incorrect words, spellings, and punctuation that were not noted in checking the note before saving. documented in this encounter [facility] 11-24-2023 Instructions Sia Weinstein APRN.CNP - [...] any ear pain or can follow-up with digital learning platforms manager. documented in this encounter [facility] 08-11-2023 Emergency department Note EMERGENCY DEPARTMENT [...] getting out of the van at the jail and stepped wrong and fell onto the [...] otherwise acutely negative except as in the [facility] PAST MEDICAL HISTORY Past Medical History: Diagnosis [...] pt denies pain documented in this encounter [facility] 08-11-2023 Emergency department Triage note Pt presents to the er with her caregiver , caregiver states she fell today and hit the front of her head, pt denies any LOC , pt denies pain [facility] 08-11-2023 Physician Emergency department Note EMERGENCY DEPARTMENT [...] getting out of the van at the jail and stepped wrong and fell onto the [...] otherwise acutely negative except as in the [facility] PAST MEDICAL HISTORY Past Medical History: Diagnosis [...] signed) Emergency Medicine Provider Johnathon Rivas DO 08/11/239 [facility] 05-29-2023 Note . MICRO - Microbiology PROCEDURE: Urine Culture [*1] SOURCE: Urine BODY SITE: COLLECTED DATE/TIME: 05/28/2023 13:42 EST RECEIVED DATE/TIME: 05/28/2023 14:11 EST START DATE/TIME: 05/28/2023 14:11 EST FREE TEXT SOURCE: FINAL REPORTS Final Report [] Verified Date/Time/Personnel: 05/29/2023 14:41 EST >100,000 cfu/ml Mixed growth consistent with normal urogenital hailey. Performing Locations *1: This test was performed at: [address], [address] , [facility] ([place]) 05-28-2023 Hospital Discharge instructions Patient Education 05/28/2023 [...] swelling in the outer vaginal area (labia) [id number] [employer]. [address] [place] [address]. All rights reserved. This information is not intended as a substitute for professional medical care. Always follow your healthcare professional's instructions. Follow Up Care 05/28/2023 12:31:18 With:Go to emergency room if symptoms worsen Address:Unknown When:2-4 days With:DESIRAE ROSARIO MD, [facility] Address: [facility] [address] [address]- When:2-4 days [facility] 05-28-2023 Emergency department Discharge summary Discharge Instructions Thank you for allowing [facility] to assist you with your healthcare needs. [...] days Follow Up with DESIRAE ROSARIO MD, [facility] When Within 2-4 days Where: [facility] [address] [facility] [address] [place] [address]- Allergies NKA Medications Please ask your primary [...] swelling in the outer vaginal area (labia) [phone] [employer] ([employer] gauzz. [address] [place] [address], [place] [address]. All rights reserved. This information is not intended as a substitute for professional medical care. Always follow your healthcare professional's instructions. Additional Information VACCINATE! IT SAVES LIVES! Members of the community who have not yet received the COVID-19 vaccine and would like to receive it can visit one of [facility] vaccine clinics. There are many vaccine clinic locations within the [facility]. For locations and available times, please visit www.gettheshot.coronavirus.[place].gov/. It is important to note that some COVID mobile vaccine clinics are held outdoors and may be canceled in rainy or stormy conditions. To learn more about pediatric vaccinations (ages 5-11), we invite you to visit the [facility] webpage. [email or web address]/pages/ 6586-Hngkk-Btcacuxraqs-Frequently-Ask ed-Questions.html To learn more about the COVID-19 vaccine, we invite you to visit the CDC website for a list of frequently asked questions. https://www.cdc.gov/coronavirus/2019- ncov/vaccines/faq.html [facility] Patient Portal Access Instructions: Stay connected with your healthcare team and access your personal medical information anytime with the [employer] Patient Portal. If you would like a full copy of your medical records please contact the [facility] Medical Records Department Tuesday through Tuesday between 8a.m. and 4:30p.m. Please follow the directions below to access the portal: 1.Access the email account you provided upon registration to the hospital.2.Look for an invitation email from [facility].3.Open the email and access the invitation link: Accept Invitation to [facility]4.Fill in the required welch to create your account. Sign into [email or web address] with your username and password that you [...] you will allow to register on the [employer] Patient Portal for access to your information. You can also access the [employer] Patient Portal on the [employer] radha. Simply click on Health Records under Health Data and then click on the [employer] logo. HOW TO SAFELY DISPOSE OF PRESCRIPTION [...] Call your local pharmacy or go to http://[employer].Bird[employer] Solutions/1G7Wb4y to find one close to you.3.Make use of household items: Use cat litter or old coffee grounds to dispose medications if other options are not available. Mix your drugs with these household products, seal them in an airtight container and throw it into the garbage. Call [facility]: [phone] to be sure your drugs can be [...] aware that I should contact my doctor. Patient/Compliance Quality Performance Analyst Signature: __ Date/Time: Relationship to Patient: Witness Name/Signature: Date/Time: [facility] 05-28-2023 Note ORIGINAL EXAMINATION: CT OF THE HEAD WITHOUT VJZGGXHD13/11/2023 3:[address] HEAD OR BRAIN W/O [...] 05/28/2023 3:34:15 PM Ordering Provider: TE LEE [facility] 05-28-2023 Evaluation + Plan note Diagnostic Tests PendingUrine Culture 05/28/23 [facility] 05-28-2023 History of Present illness Narrative Sharla Joiner is a 47 year old female who presents with Urinary Problem (Burning with urination. care taker reports that when she has behavior issues [...] urine. Jason Abarca documented in this encounter [facility] 04-07-2023 Note HNO ID: [id number] Author: Sue Everett RT(Marques) Service: Radiology Author [...] RT Angelina(Marques) April 07, 2023 9:51 AM [facility] 04-07-2023 History of Present illness Narrative [...] 2023 9:51 AM documented in this encounter [facility] 01-15-2023 Hospital Discharge instructions Patient Education 01/15/2023 16:53:53 Seizure, Adult, Skqc-hk-Snbw Seizure, Adult A seizure is a sudden [...] Follow these instructions at home: Medicines Take srlf-kda-svxduld and prescription medicines only as told by [...] [place] ask your local DMV (department of [employer]) when you can drive. Get plenty of [...] 12/20/2008 Document Revised: 09/21/2019 Document Reviewed: 09/21/2019 [employer] Patient Education 2020 Shipping Easy. 01/15/2023 16:53:18 Dysphagia Dysphagia Dysphagia is trouble [...] Follow these instructions at home: Medicines Take hhlf-nnu-pwvuwfr and prescription medicines only as told by your health care provider. If you were prescribed an antibiotic medicine, take it as told by your health care provider. Do not stop taking the antibiotic even if you start to feel better. Eating and drinking Follow any diet changes as told by your health care provider. Work with a diet and computer network specialist (dietitian) to create an eating plan that [...] 07/01/2001 Document Revised: 11/28/2019 Document Reviewed: 11/28/2019 [employer] Patient Education 2020 Shipping Easy. Follow Up Care 01/04/2023 18:37:38 With:[facility], [facility], call RN report to : Address:Unknown When:1-2 days With:DESIRAE ROSARIO Address: [facility] [address] [address]- Business (1) When:1-2 days [facility] 01-15-2023 Discharge summary Date of Service 01/15/2023 Discharge Diagnosis 1. Esophageal obstruction due to food impaction (K22.2 - ICD-10-CM) 2. Vomiting ([id number] - PNED) 3. Dysphagia (R13.10 - ICD-10-CM) [...] Orders: Ordered: Discharge,01/15/23 12:58:00 EDT, Discharged to: [facility] Facility Other status: EKG,01/13/23 7:57:00 EDT(Complete) Ordered: [...] BID, # 180 tab(s), 0 Refill(s), Pharmacy: [facility] #[id number], 170.2, cm, 01/05/23 14:35:00 EDT, Height Ordered: fludrocortisone 0.1 mg oral tablet,Dose : 0.2 mg = 2 tab(s), Oral, qDay, 0 Refill(s) Ordered: midodrine 5 mg oral tablet,Dose : 10 mg = 2 tab(s), Oral, BID, 0 Refill(s) End of Orders Hospital Course 47-year-old female with a past medical history of bipolar disorder, autism spectrum disorder, MRDD who presented to [facility] on 01/04/2023 with a 1 day history [...] optimized for discharge, to be discharged to [facility]. Discussed with mother over the phone. [...] Patient Instructions [facility] be [facility]. Continue on your current medications. Return [...] by LUCI SALCEDO on 01/15/2023 01:03 PM [facility] 01-15-2023 Note Discharge Instructions Thank you for allowing [facility] to assist you with your healthcare needs. The following is important discharge information regarding your hospital visit. Your Care Team DESIRAE ROSARIO MD Your Diagnosis Esophageal obstruction due to food impaction Vomiting Dysphagia Bipolar disorder Autism Seizure What to do next Follow Up Appointments Follow Up with [facility], [facility], call RN report to : When Within 1-2 days Follow Up with DESIRAE ROSARIO When Within 1-2 days Where: [facility] [address] [facility] [address] [place] [id number]- [facility] (1) The Following Activity and Diet Have Been Ordered for You Transfer of Care Activity - Ordered -- As instructed by therapy, 01/15/23 12:58:00 EDT Transfer of Care Diet - Ordered -- Type of Diet: [id number]-[id number]-8, 01/15/23 17:11:00 EDT The Following Equipment Has [...] a day Duration: 30 Days Pickup at [facility] #[id number] Unchanged cholecalciferol (Vitamin D3 50 mcg (2000 intl units) oral capsule) 1 cap by mouth Every day Unchanged montelukast (montelukast 10 mg oral tablet) 1 tab(s) by mouth Once a day Pharmacy Information [facility] #[id number]: [address], [place] [phone] What How Much When Comments Stop Taking [...] Follow these instructions at home: Medicines Take fqhg-lsi-rpmqond and prescription medicines only as told by [...] [place] ask your local DMV (department of [employer]) when you can drive. Get plenty of [...] 12/20/2008 Document Revised: 09/21/2019 Document Reviewed: 09/21/2019 ElseQulsar Patient Education 2020 Shipping Easy. Dysphagia Dysphagia is trouble swallowing. This condition [...] Follow these instructions at home: Medicines Take asnn-dxh-latqazl and prescription medicines only as told by your health care provider. If you were prescribed an antibiotic medicine, take it as told by your health care provider. Do not stop taking the antibiotic even if you start to feel better. Eating and drinking Follow any diet changes as told by your health care provider. Work with a diet and computer network specialist (dietitian) to create an eating plan that [...] Document Reviewed: 11/28/2019 Elsevier Patient Education 2019 [employer] Additional Information VACCINATE! IT SAVES LIVES! Members of the community who have not yet received the COVID-19 vaccine and would like to receive it can visit one of [facility] vaccine clinics. There are many vaccine clinic locations within the [facility]. For locations and available times, please visit [email or web address] [email or web address] It is important to note that some COVID mobile vaccine clinics are held outdoors and may be canceled in rainy or stormy conditions. To learn more about pediatric vaccinations (ages 5-11), we invite you to visit the [facility] webpage. https://www.[email or web address].org/pages/ 5815-Gmpcb-Wenafvvpiyo-Frequently-Ask ed-Questions.html To learn more about the COVID-19 vaccine, we invite you to visit the CDC website for a list of frequently asked questions.https://www.cdc.gov/coronav irus/2019-ncov/vaccines/faq.html [facility] Patient Portal Access Instructions: Stay connected with your healthcare team and access your personal medical information anytime with the [facility] Patient Portal. Please follow the directions below to create your [facility] account: 1.Access the email account you provided upon registration to the hospital/physician office.2.Look for an invitation email from [facility].3.Open the email and access the invitation link: Accept Invitation to [facility] Book.4.Fill in the required welch to create your account. To access your account, visit [email or web address]. Click the blue button labeled Access Patient [...] you will allow to register on the [facility] for access to your information. You can also access the [facility] on the [facility] radha. Simply click on Patient Portal and then log into your account. If you would like to receive a full copy of your medical records, please contact the [facility] Medical Records Department by calling [phone], Tuesday through Tuesday between 8 a.m. and [...] Call your local pharmacy or go to [email or web address] to find one close to you.3.Make use of household items: Use cat litter or old coffee grounds to dispose medications if other options are not available. Mix your drugs with these household products, seal them in an airtight container and throw it into the garbage. Call [facility]: [phone] to be sure your drugs can be [...] COPY. Signatures Patient Education Materials Seizure, Adult, Rbcw-qb-Ccmj Dysphagia Medication Leaflets My discharge plan and instructions have been reviewed and explained to me and I,ROHITMarques SHARLA Marques understand my current condition and have read and understand these discharge instructions. I have received a written copy of the plan/instructions. If I have questions, I am aware that I should contact my doctor. Patient/Compliance Quality Performance Analyst Signature: __ Date/Time: Relationship to Patient: Witness Name/Signature: Date/Time: [facility] 01-15-2023 Note Discharge Instructions Thank you for allowing [facility] to assist you with your healthcare needs. The following is important discharge information regarding your hospital visit. Your Care Team DESIRAE ROSARIO MD Your Diagnosis Esophageal obstruction due to food impaction Vomiting Dysphagia Bipolar disorder Autism Seizure What to do next Follow Up Appointments Follow Up with [facility], [facility], call RN report to When Within 1-2 days Follow Up with DESIRAE ROSARIO When Within 1-2 days Where: [facility] [address] [address]- [facility] (1) The Following Activity and Diet Have [...] a day Duration: 30 Days Pickup at [facility] #[id number] Unchanged cholecalciferol (Vitamin D3 50 mcg (2000 intl units) oral capsule) 1 cap by mouth Every day Unchanged montelukast (montelukast 10 mg oral tablet) 1 tab(s) by mouth Once a day Pharmacy Information [facility] #[id number]: [address] [place], [place] [phone] What How Much When Comments Stop Taking [...] Follow these instructions at home: Medicines Take glwj-vah-adnymvr and prescription medicines only as told by [...] [place]., ask your local DMV (department of [employer]) when you can drive. Get plenty of [...] 12/20/2008 Document Revised: 09/21/2019 Document Reviewed: 09/21/2019 [employer] Patient Education 2020 [employer] Dysphagia Dysphagia is trouble swallowing. This [...] Follow these instructions at home: Medicines Take kcqv-afd-ooedest and prescription medicines only as told by your health care provider. If you were prescribed an antibiotic medicine, take it as told by your health care provider. Do not stop taking the antibiotic even if you start to feel better. Eating and drinking Follow any diet changes as told by your health care provider. Work with a diet and computer network specialist (dietitian) to create an eating plan that [...] 07/01/2001 Document Revised: 11/28/2019 Document Reviewed: 11/28/2019 ElseQulsar Patient Education 2020 [employer] Additional Information VACCINATE! IT SAVES LIVES! Members of the community who have not yet received the COVID-19 vaccine and would like to receive it can visit one of [facility] vaccine clinics. There are many vaccine clinic locations within the [facility]. For locations and available times, please visit [email or web address] [email or web address] It is important to note that some COVID mobile vaccine clinics are held outdoors and may be canceled in rainy or stormy conditions. To learn more about pediatric vaccinations (ages 5-11), we invite you to visit the [facility] webpage. https://www.[email or web address].org/pages/ 7345-Excbz-Xwgmwkozljs-Frequently-Ask ed-Questions.html To learn more about the COVID-19 vaccine, we invite you to visit the CDC website for a list of frequently asked questions.https://www.cdc.gov/coronav irus/2019-ncov/vaccines/faq.html [facility] Patient Portal Access Instructions: Stay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 invitation email from [facility].3.Open the email and access the invitation link: Accept Invitation to [facility]4.Fill in the required welch to create your account. Sign into [email or web address] with your username and password that you [...] you will allow to register on the [facility] Patient Portal for access to your information. You can also access the [facility] Patient Portal on the [employer] Simply click on Health Records under [employer] and then click on the [employer] logo. HOW TO SAFELY DISPOSE OF PRESCRIPTION [...] Call your local pharmacy or go to http://[employer]/5I1Vv5p to find one close to you.3.Make use of household items: Use cat litter or old coffee grounds to dispose medications if other options arenot available. Mix your drugs with these household products, seal them in an airtight container andthrow it into the garbage. Call [facility]: [phone] to be sure your drugs can be [...] COPY. Signatures Patient Education Materials Dehydration, Adult, Pmmf-qr-Uypb Medication Leaflets My discharge plan and instructions have been reviewed and explained to me and IELFEGO LARISSA R understand my current condition and have read and understand these discharge instructions. I have received a written copy of the plan/instructions. If I have questions, I am aware that I should contactmy doctor. Patient/Compliance Quality Performance Analyst Signature: Date/Time: Relationship to Patient: Witness Name/Signature: Date/Time: [facility] [id number] Discharge summary Date of Service August 28, [...] Plan is for patient to return to jail at this time and follow-up with primary [...] Call to make an appointment. Where: [address] [facility] [address] [place] [address]- [facility] When In 4 weeks Why: Follow-up with neurology as an outpatient. Call to make an appointment. Where: [address] [place] [address] [phone] Follow Up with DESIRAE ROSARIO MD, [facility] When Within 5 to 7 days Why: Follow up with primary care doctor as an outpatient. Call to make an appointment. Where: [facility] [address] [facility] [address] [place] [address]- Discharge Diet Discharge Diet - Ordered -- Type of Diet: Regular, 08/28/22 14:12:00 EST Discharge Activity Discharge Activity - Ordered -- Activity As Tolerated, 08/28/22 14:12:00 EST Condition on Discharge Improved Discharge Disposition custodial Information Provided To Patient and mother Time Spent >30 minutes Digitally Signed by SHELTON LYNNE MD on 08/28/2022 02:20 PM [facility] HospitalRshlhnke22-60-2249 Note Date of Service August 27, 2022 [...] SHELTON LYNNE MD on 08/27/2022 10:40 PM [facility] HospitalJttfrdou53-52-3760 Nurse Progress note Patient not participating in [...] Ashley Malave RN on 08/27/2022 11:45 AM [facility] HospitalZtxdzirb39-66-4232 Nurse Progress note Patient not participating in [...] Ashley Malave RN on 08/27/2022 11:45 AM [facility] HospitalPtugfvgs87-17-8195 Neurology Progress note Date of Service August [...] plan. This note has been generated using [facility] dictation software. It may contain incorrect words, punctuation's and spellings that were not noted in the review of the note prior to signing. It is a split/shared visit with CHARGER TESTER. I have reviewed the progress note obtained and documented by NPand I personally participated in the moise components. I have personally seen and examined the patient at bedside. I have discussed the case and management of the patient's care with CHARGER TESTER. I agree with the above documentation. I will be off service tomorrow but will have incoming production team manager Neurology follow up pending neurological test results and follow up patient as needed, please call with questions if any in the interim. Dorita Crowder MD Neurology, Vascular Neurology Neurohospitalist [facility] Digitally Signed by ASHLEY MARTE on 08/27/2022 11:14 AM Digitally Signed by DORITA CROWDER MD on 08/27/2022 11:30 AM [facility] HospitalNypkqaok41-46-7290 Neurology Consult note Date of Service 08/26/2022 [...] interim. This note has been generated using [facility] dictation software. It may contain incorrect words, [...] DORITA CROWDER MD on 08/26/2022 11:50 AM [facility] HospitalWlxafxzg31-05-0092 Note Date of Service August 26, 2022 [...] minutes. Discussed with patients mother Shirley at [phone] with neurology Digitally Signed by SHELTON LYNNE MD on 08/26/2022 10:51 AM Digitally Signed by SHELTON LYNNE MD on 08/26/2022 11:16 AM [facility] HospitalCshviczg34-04-6790 Note Date of Service August 25, 2022 [...] at length with patients mother Shirley at [phone] Digitally Signed by SHELTON LYNNE MD on 08/25/2022 07:48 PM Digitally Signed by SHELTON LYNNE MD on 08/25/2022 07:52 PM [facility] HospitalOiyeaqda05-36-3713 Nurse Progress note patient refuses to make arm straight for IV flush and continuous infusion. charge nurse informed and will discuss with physician for further orders due to pt condition and cognitive ability Digitally Signed by Caroline Read LPN on 08/25/2022 10:41 AM [facility] HospitalBfqegobz79-36-0970 Note ORIGINAL EXAMINATION: CT OF THE ABDOMEN [...] 08/25/2022 12:55:39 AM Ordering Provider: SHELTON LYNNE [facility] HospitalAhscatvk17-11-1579 Note ORIGINAL EXAMINATION: CT OF THE HEAD [...] Date: 08/25/2022 12:47:52 AM Ordering [facility] Note ORIGINAL EXAMINATION: CT OF THE ABDOMEN [...] Shayan Dailey MD Preliminary Report By: Shayan Daliey MD Electronically signed By Shayan Dailey MD Dictated Date: 08/25/2022 12:50:22 AM Prelim Date: 08/25/2022 12:55:39 AM Sign Date: 08/25/2022 12:55:39 AM Ordering Provider: [facility]02-07-2023 Note ORIGINAL EXAMINATION: CT OF THE [...] Sign Date: 08/25/2022 12:47:52 AM Ordering Provider: [facility]02-07-2023 Note Date of Service August 24, [...] stable to be transferred back to her jail. Patient continues to have altered mental status [...] SHELTON LYNNE MD on 08/24/2022 10:48 AM [facility] HospitalBtmnrfld70-16-8532 Consult note Chief complaint change in mental status History of present illness 47-year-old female admitted after becoming confused at her jail inaddition to poor oral intake. I evaluated [...] Social history this patient lives in a jail. She states that she is single and [...] stable to be transferred back to her jail when she is medically cleared. Digitally Signed by LUCI MATSON MD on 08/24/2022 10:07 AM [facility] HospitalPruepfdg77-93-3812 History and physical note Date of Service 08/23/2022 Chief Complaint Pt. caregivers from the jail state that the pt. has not been eating or drinking for a few days and has not been herself History of Present Illness Patient is 46-year-old female with past medical history significant for autism spectrum disorder, MRDD, bipolar disorder, psychosis, impulse control disorder who is a jail resident brought to [facility] due to concerns for poor oral intake, increasing confusion than her baseline and weakness for last few days. History was taken from jail staff Marianela present at bedside. They mentioned [...] activity reported. She does see psychiatry at [facility]. She is on multiple psychiatric medications and [...] she will need medication adjustment. As per jail staff, she did seem a little better [...] continue IV fluid resuscitation overnight. As per jail staff, patient does seem to be improving with IV fluids in the ER. Continue to monitor for oral intake and started on regular diet. Continue her psychiatric medication until evaluation by psychiatry. DVT prophylaxis with heparin subcu Plan discussed with jail staff Marianela at bedside. Answered all of [...] FRANSISCO PERRY MD on 08/23/2022 04:11 PM [facility] HospitalZrwsvvwv88-81-0899 Evaluation + Plan noteExtracted from: Title:History and [...] continue IV fluid resuscitation overnight. As per jail staff, patient does seem to be improving with IV fluids in the ER. Continue to monitor for oral intake and started on regular diet. Continue her psychiatric medication until evaluation by psychiatry. DVT prophylaxis with heparin subcu Plan discussed with jail staff Marianela at bedside. Answered all of their questions. [facility] 02-06-2023 Note ORIGINAL HISTORY: Confusion COMPARISON: 08 [...] Sign Date: 08/23/2022 11:50:16 AM Ordering Provider: [facility]02-06-2023 Note ORIGINAL HISTORY: Confusion COMPARISON: 08 April 2020 FINDINGS: The study is limited by positioning. The right apex is not evaluated. Otherwise, the lungs are clear. The pulmonary vasculature is unremarkable in appearance. IMPRESSION: Limited by positioning, otherwise unremarkable. Interpreted by: Seferino Mkceon MD Preliminary Report By: Seferino Mckeon MD Electronically signed By Seferino Mckeon MD Dictated Date: 08/23/2022 11:49:40 AM Prelim Date: 08/23/2022 11:50:16 AM Sign Date: 08/23/2022 11:50:16 AM Ordering Provider: [facility]12-29-2021 Hospital Discharge instructions Patient Education 07/15/2021 20:00:39 [...] does not get better with fever medication 7917-1197 [employer]. [address] [place] [address]. All rights reserved. This information is not intended as a substitute for professional medical care. Always follow yourmckitrick hospitalcare professional's instructions. 07/15/2021 20:00:35 Abdominal Pain, [...] or water and you are getting dehydrated 8983-5734 [employer]. [address] [place] [address], [place] [address]. All rights reserved. This information is not intended as a substitute for professional medical care. Always follow yourhealthcare professional's instructions. Follow Up Care 07/15/2021 10:19:57 With:DESIRAE ROSARIO Address: [address] [place] [id number] Business (1) When:2-4 days Comments:Schedule appointment as soon as possibleReturn to ED if symptoms worsenPedialyte only till am and if better increase to BRAT and then to normalStart 2 citrucel tabs daily [facility] 12-22-2021 Hospital Discharge instructions Patient Education 2021 [...] swelling in the outer vaginal area (labia) 3691-7[address] [employer] [place] [address]. All rights reserved. This information is not [...] swelling in the outer vaginal area (labia) 0630-4747 [employer]. [address] [place] [address], [place] [address]. All rights reserved. This information is not intended as a substitute for professional medical care. Always follow yourhealthcare professional's instructions. Follow Up Care 2021 15:55:15 With:DESIRAE ROSARIO MD, [facility] Address: [address] When:2-4 days [facility] 12-22-2021 Evaluation + Plan note Diagnostic Tests Pending * Urine Culture 07/08/21 [facility] 12-21-2021 History of Present illness Narrative* Jason [...] with the patient's caregiver. Jason Abarca MD [id number] SSI File#: [id number] END OF DOCUMENT / CHANGE LOG FOLLOWS Last Edited By [employer]. Signed By Jason Abarca MD #Jason Alonzo MD on 07/31/2021 09:54 ET on 07/31/2021 09:54 ET Revision Number - 2 ^^^ Verified/Reviewed by 07/31/21 Leni FELTON [facility] PATIENT NAME: SHARLA JOINER [address] [place] MEDICAL REC #: [id number] [place] [address] [facility] STATCARE PHYSICIAN documented in this encounterMedina Hospital12-18-[facility] Hospital Discharge instructions Patient Education 07/03/2021 [...] swelling in the outer vaginal area (labia) 6422-7848 [employer]. [address] [place] [address]. All rights reserved. This information is not intended as a substitute for professional medical care. Always follow yourhealthcare professional's instructions. Follow Up Care 07/03/2021 18:04:34 With:Go to emergency room if symptoms worsen Address:Unknown When:2-4 days With:DESIRAE ROSARIO MD, [facility] Address: [address] [place] [address]- When:2-4 days [facility] Evaluation + Plan note No data available for this section [facility] Evaluation note* Diagnosis Sensory urge incontinence- Primary Urge incontinence Gross hematuria documented in this encounter [facility] note* Diagnosis Gross hematuria documented in this encounter [facility] note* Diagnosis Bite- Primary Injury, other and unspecified, unspecified site documented in this encounter [facility] note* Diagnosis Dysuria- Primary Cognitive and behavioral changes Other signs and symptoms involving cognition documented in this encounter [facility] note* Diagnosis Head injury, initial encounter- Primary documented in this encounter [facility] note* Diagnosis Hematuria, unspecified type- Primary Ear pain, bilateral Impacted cerumen of right ear Impacted cerumen documented in this encounter [facility] note* Diagnosis Dermatitis of ear canal, bilateral- Primary Impacted cerumen of right ear Impacted cerumen Cerumen in auditory canal on examination documented in this encounter [facility] note* Diagnosis Encounter for dental examination- Primary Dental examination documented in this encounter [facility] note* Diagnosis Facial cellulitis- Primary Cellulitis and abscess of face Facial cellulitis Cellulitis and abscess of face documented in this encounter [facility] note* Diagnosis Bilateral impacted cerumen- Primary Impacted cerumen Bilateral impacted cerumen Impacted cerumen Left otitis media, unspecified otitis media type Left otitis media Unspecified otitis media documented in this encounter [facility] note* Diagnosis Abdominal pain, generalized- Primary Agitation Other and unspecified special symptom or syndrome, not elsewhere classified Autistic disorder Autistic disorder, current or active state documented in this encounter [facility] note* Diagnosis UTI symptoms- Primary Other symptoms involving urinary system documented in this encounter [facility] note* Diagnosis Left otitis media, unspecified otitis media type- Primary documented in this encounter [facility] noteNo assessment information availableWThe [facility] Work Phone: Hospital Discharge instructions No data available for this section [facility] Hospital Discharge instructions* Attachments The following attachments cannot be sent through Care Everywhere. * Autism Spectrum Disorder (Gren[place]) * Abdominal Pain, Adult ED ([place]) [facility] No data available for this section [facility] Reason for referral (narrative)* Diagnostic Procedure Only (Routine) - Authorized Specialty Diagnoses / Procedures Referred By Pedrito t Referred To Contact US IMAGING Diagnoses Gross hematuria Procedures US KIDNEY/BLADDER US RETROPERITONEAL REAL TIME W/IMAGE COMPLETE Giuliana Carson, ANDREW.MANAGER PATHOLOGY [address] [place] [address] Us Imaging Referral ID Status Reason Start Date Expiration Date Visits Requested Visits Authorized [id number] Authorized Auto-Generat ed Referral 11/10/2022 12/10/2023 1 1 [facility] for referral (narrative)* Diagnostic Procedure Only (Routine) - Closed Specialty Diagnoses / Procedures Referred By Contac t Referred To Contact US IMAGING Diagnoses Gross hematuria Procedures US KIDNEY/BLADDER US RETROPERITONEAL REAL TIME W/IMAGE COMPLETE Giuliana Carson APRN.CNP [address] [place], [place] [id number] Us Imaging Referral ID Status Reason Start Date Expiration Date V isits Requested Visits Authorized [id number] Closed Auto-Generate d Referral 11/10/2022 12/10/2023 1 1 [facility] for referral (narrative)* Consultation (Routine) - Pending Review Specialty Diagnoses / Procedures Referred By Contac t Referred To Contact Otolaryngology Diagnoses Bilateral impacted cerumen Procedures TX OFFICE/OUTPATIENT NEW HIGH MDM 60 MINUTES Lalit Solorzano, SHEEP FARMER - MANAGER PATHOLOGY [address] [place] [address] [facility] [address] [place] [address] Referral ID Status Reason Start Date Expiration Date Visits Requested Visits Authorized [id number] Pending Review Specialty Services Required 03/24/2024 03/24/2025 1 1 [facility] for referral (narrative)No reason for referral information availableWThe [facility] of [facility] Work Phone: Reason for visit Narrative* Diagnostic Procedure Only (Routine) - Closed Specialty Diagnoses / Procedures Referred By Contac t Referred To Contact US IMAGING Diagnoses Gross hematuria Procedures US KIDNEY/BLADDER US RETROPERITONEAL REAL TIME W/IMAGE COMPLETE Giuliana Carson APRN.CNP [address] [place] [address] Us Imaging Referral ID Status Reason Start Date Expiration Date V isits Requested Visits Authorized [id number] Closed Auto-Generate d Referral 11/10/2022 12/10/2023 1 1 [facility] Summary Purpose Family History No Family [...] Do you have a Healthcare Power of Saddle Stitcher? Yes December 25, 2024 1:17pm Chief Complaint [...] or prosecute any alcohol or drug abuse patient.[facility] HospitalIn the event this information is protected by the Federal Confidentiality of Alcohol and Drug Abuse Patient Records regulations: The Federal rules restrict any use of the information to criminally investigate or prosecute any alcohol or drug abuse patient.[facility] HospitalIn the event this information is protected by the Federal Confidentiality of Alcohol and Drug Abuse Patient Records regulations: The Federal rules restrict any use of the information to criminally investigate or prosecute any alcohol or drug abuse patient.[facility] HospitalIn the event this information is protected by the Federal Confidentiality of Alcohol and Drug Abuse Patient Records regulations: The Federal rules restrict any use of the information to criminally investigate or prosecute any alcohol or drug abuse patient.[facility] HospitalIn the event this information is protected by the Federal Confidentiality of Alcohol and Drug Abuse Patient Records regulations: The Federal rules restrict any use of the information to criminally investigate or prosecute any alcohol or drug abuse patient.[facility] HospitalIn the event this information is protected by the Federal Confidentiality of Alcohol and Drug Abuse Patient Records regulations: The Federal rules restrict any use of the information to criminally investigate or prosecute any alcohol or drug abuse patient.[facility] HospitalIn the event this information is protected by the Federal Confidentiality of Alcohol and Drug Abuse Patient Records regulations: The Federal rules restrict any use of the information to criminally investigate or prosecute any alcohol or drug abuse patient.[facility] HospitalIn the event this information is protected by the Federal Confidentiality of Alcohol and Drug Abuse Patient Records regulations: The Federal rules restrict any use of the information to criminally investigate or prosecute any alcohol or drug abuse patient.[facility] HospitalIn the event this information is protected by the Federal Confidentiality of Alcohol and Drug Abuse Patient Records regulations: The Federal rules restrict any use of the information to criminally investigate or prosecute any alcohol or drug abuse patient.[facility] HospitalIn the event this information is protected by the Federal Confidentiality of Alcohol and Drug Abuse Patient Records regulations: The Federal rules restrict any use of the information to criminally investigate or prosecute any alcohol or drug abuse patient.[facility] HospitalIn the event this information is protected by the Federal Confidentiality of Alcohol and Drug Abuse Patient Records regulations: The Federal rules restrict any use of the information to criminally investigate or prosecute any alcohol or drug abuse patient.[facility] HospitalIn the event this information is protected by the Federal Confidentiality of Alcohol and Drug Abuse Patient Records regulations: The Federal rules restrict any use of the information to criminally investigate or prosecute any alcohol or drug abuse patient.[facility] HospitalIn the event this information is protected by the Federal Confidentiality of Alcohol and Drug Abuse Patient Records regulations: The Federal rules restrict any use of the information to criminally investigate or prosecute any alcohol or drug abuse patient.[facility] HospitalIn the event this information is protected by the Federal Confidentiality of Alcohol and Drug Abuse Patient Records regulations: The Federal rules restrict any use of the information to criminally investigate or prosecute any alcohol or drug abuse patient.[facility] HospitalIn the event this information is protected by the Federal Confidentiality of Alcohol and Drug Abuse Patient Records regulations: The Federal rules restrict any use of the information to criminally investigate or prosecute any alcohol or drug abuse patient.[facility] HospitalIn the event this information is protected by the Federal Confidentiality of Alcohol and Drug Abuse Patient Records regulations: The Federal rules restrict any use of the information to criminally investigate or prosecute any alcohol or drug abuse patient.[facility] HospitalIn the event this information is protected by the Federal Confidentiality of Alcohol and Drug Abuse Patient Records regulations: The Federal rules restrict any use of the information to criminally investigate or prosecute any alcohol or drug abuse patient.[facility] HospitalIn the event this information is protected by the Federal Confidentiality of Alcohol and Drug Abuse Patient Records regulations: The Federal rules restrict any use of the information to criminally investigate or prosecute any alcohol or drug abuse patient.[facility] Teams (unrecognized sec tion and content) Supervising Architect Relationship Specialty Start Date End Date Zaid Marie III PCP - General Family Practice 02/24/16 Supervising Architect Relationship Specialty Start Date End Date Zaid Marie III PCP - General Family Medicine 02/24/16 Supervising Architect Relationship Specialty Start Date End Date Zaid Marie III PCP - General Family Medicine 02/24/16 Supervising Architect Relationship Specialty Start Date End Date Zaid Marie III PCP - General Family Medicine 02/24/16 Supervising Architect Relationship Specialty Start Date End Date Zaid Marie III PCP - General Family Medicine 02/24/16 Supervising Architect Relationship Specialty Start Date End Date Zaid Marie III PCP - General Family Medicine 02/24/16 Desirae Rosario MD [address] [place] [address] Referring Family Medicine 04/01/23 Supervising Architect Relationship Specialty Start Date End Date Zaid Marie III PCP - General Family Medicine 02/24/16 Desirae Rosario MD [address] [address] Referring Family Medicine 04/01/23 Supervising Architect Relationship Specialty Start Date End Date [facility] [address] [facility] [id number] PCP - General 08/11/23 Supervising Architect Relationship Specialty Start Date End Date Shayna Rosario [facility] [address] [facility] [phone] PCP - General 08/11/23 Supervising Architect Relationship Specialty Start Date End Date Zaid Marie LYNDSEY PCP - General Family Medicine 02/24/16 Desirae Rosario MD [address] [address] Referring Family Medicine 04/01/23 Supervising Architect Relationship Specialty Start Date End Date Shayna Rosario DO [address] [place] [phone] PCP - General 08/11/23 Supervising Architect Relationship Specialty Start Date End Date Desirae Rosario MD [address] [address] PCP - General Family Medicine 01/23/24 Desirae Rosario MD [address] [place] [address] Referring Family Medicine 04/01/23 Supervising Architect Relationship Specialty Start Date End Date Desirae Rosario MD [address] [place] [address] PCP - General Family Medicine 01/23/24 Desirae Rosario MD [address] [facility] [address] [place] [address] Referring Family Medicine 04/01/23 Supervising Architect Relationship Specialty Start Date End Date Desirae Rosario MD [address] [facility] [address] [place] [address] PCP - General Family Medicine 01/23/24 Desirae Rosario MD [address] [facility] [address] [place] [address] Referring Family Medicine 04/01/23 Supervising Architect Relationship Specialty Start Date End Date Desirae Rosario MD [address] [facility] [address] [place] [address] PCP - General Family Medicine 01/23/24 Desirae Rosario MD [address] [facility] [address] [place] [address] Referring Family Medicine 04/01/23 Supervising Architect Relationship Specialty Start Date End Date Desirae Rosario [address] [place] [address] PCP - General Family Medicine 03/24/24 Supervising Architect Relationship Specialty Start Date End Date Desirae Rosario [address] [place] [address] PCP - General Family Medicine 03/24/24 Supervising Architect Relationship Specialty Start Date End Date Desirae Rosario [address] [place] [address] PCP - General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
[2025-04-06] MEDS: 0.9% Normal Saline (1000mL) 1,000 ML 100 ML IV (02:47)
--- OUTSIDE RECORDS SUMMARY | 2025-04-06 05:22 | XMS RPT_ITS | CCD ---
Author Organization [facility] CliniSyne Care Team Providers Care Student Recruiter Name Role Phone Zaid Marie III Primary Care Provider EUSEBIA WILLIAM, DESIRAE Primary Care Physician DESIRAE ROSARIO MD Primary Care Physician [phone] Zaid Marie III Primary Care Provider PRAVEEN [...] Unavailable NOHEMI TALAVERA MD Attending Unavailable MURRAY STROKE PROGRAM COORDINATOR-SUPERINTENDENT PIER, STORM West Attending Arnoldo ROSARIO, DESIRAE Primary Care Unavailable EUSEBIA, DESIRAE Primary Care Unavailable MIGUEL ANGEL PARKER MD Attending Unavailable EUSEBIA, DESIRAE Primary Care Unavailable NOHEMI TALAVERA MD Attending Unavailable EUSEBIA, DESIRAE Primary Care Unavailable CAROLINE JAVIER DO Attending Unavailable Dr. Quincy Clarke DO Emergency Provider [phone] Desirae Rosario MD Primary Care Provider JEFF AMBRIZ Attending Unavailable FRANK III, [facility] Primary Care Unavail able FRANK III, ZAID AMARILLO Primary Care Unavail able RADHA GLASS Attending [...] Unavailable Dr. Quincy Clarke DO Attending Provider [phone] Desirae Rosario MD Referring Provider [phone] Naye Sol Attending Provider Dr. Wojciech Gonzalez MD Attending Provider [phone] Naye Valero Attending Unavailable Desirae Rosario Referring [...] Daily, # 90 tab(s), 3 Refill(s), Pharmacy: [facility], 165.1, cm, 08/10/24 9:30:00 EST, Height, kg, 08/10/24 9:30:00 EST, Dosing Weight Start Date: 08/10/24 Status: Ordered Quantity: 90.0 Unit: tab(s) Repeat number: 4 Start: 07-26-2024 aspirin 325 mg oral tablet Dose : 325 mg = 1 tab(s), Oral, qDay, # 90 tab(s), 0 Refill(s), Pharmacy: [facility], 170.2, cm, 12/29/23 15:59:00 EDT, [...] Date: 04/07/16 Status: Ordered End: 11-24-2023 medroxyPROGESTERone (DEPO-WI OVERA) 150 mg/mL injection Inject 150 mg [...] 11-18-2023 Multiple Vitam in (Tab-A-Kenneth/Beta Carotene) tablet Kljebkjgcytbk-Wcxktuea-Wuvle n (MULTIVITAMIN 50 PLUS) tab (6 sources) [...] cap(s), 0 Refill(s), 09/02/22 14:11:00 EST, [id number], 168, cm, 07/03/22 9:38:00 EST, Height, 58.9 [...] 40 mg by mouth. polyethylene glycol 3350 55285 mg powder for oral solution (14 sources) [...] BID, # 180 tab(s), 0 Refill(s), [id number], 170.2, cm, 01/05/23 14:35:00 EDT, Height Start [...] Comment on above: Take 1 capsule by [facility] four [facility] daily for 7 days. ketamine 100 mg/ml injectable solution (2 sources) General Anesthetic Start: 03-26-2024 End: 03-26-2024 265 mg (rounded from 263.2 mg = 4 mg/kg 65.8 kg), IntraMUSCular, Once, On 03/26/24 at 1220, For 1 dose, If ordered nasal, give 1/2 of dose in each nostril. If IM, give deeply into a large muscle mass. If ordered IV or WI, must dilute 1:1 prior to administration. loratadine [...] Facility Orthopedic Visit Reporton Orthopedic Visit Report [facility] [address] [place] [address] OFFICE VISIT Date of Service: 03/05/25 MR#: [id number] Acct: [id number] Name: SHARLA JOINER Rep #: [id number] : 1975 Provider: LAZARA quiles Age/Sex: 49/F [place] [facility] Status: Signed Intake Vital Signs 12/25/24 12:29 02/20/25 11:11 Height 5 ft 7 in 5 ft 7 in Intake Visit Reasons: BL WRISTS Conservation Or Heritage Architect Required: No Accompanied by: Caregiver Is patient [...] pain. Neither wrist painful today. Resides at [facility]. Mobile XRAY B/L wrist 01/19/25. Facilities PCP [...] ulna or (more content not included)... Normal [facility] Wrist 2 Viewson 03-05-2025 Wrist 2 Views [facility] [address] [place] [address] Wrist 2 Views MR#: [id number] Acct: [id number] Name: SHARLA JOINER Rep #: [id number] : 1975 F 49 From: Norberto Anne MD PCP: Dr. Desirae Rosario MD Status: DEP AMB Study: Wrist 2 Views Date of Exam: 03/05/25 Exam# [id number] Ordering Dr: Naye Valero PROCEDURE: WRIST 2 [...] to 0.36 cm. Reading Location: [facility] CC: MID LEVEL CLINICIAN-C Naye Valero; Dr. Desirae Rosario MD Applied Technologist: Signed Normal [facility] [address] [place], [place] [address] Wrist 2 Views MR#: [id number] Acct: [id number] Name: SHALRA JOINER Rep #: [id number] : 1975 F 49 From: Norberto Anne MD PCP: Dr. Desirae Rosario MD Status: DEP AMB Study: Wrist 2 Views Date of Exam: 03/05/25 Exam# [id number] Ordering Dr: Naye Valero PROCEDURE: WRIST 2 [...] CC: LAZARA Valero; Dr. Desirae Rosario MD Applied Technologist: Signed Normal [facility] CASE MANAGEMon 01-07-2025 CASE MANAGEM Normal [facility] CASE MANAGEM Normal [facility] CASE MANAGEM Normal [facility] CNDSon 01-07-2025 CNDS Normal [facility] CASE MANAGEMon 01-06-2025 CASE MANAGEM [facility] NURSING PROGon 01-05-2025 NURSING PROG [facility] THERAPY NTon 01-05-2025 THERAPY NT [facility] CASE MANAGEMon 01-04-2025 CASE MANAGEM [facility] CBC panel Auto (Bld)on 01-04 Erythrocyte distribution width (RBC) [Ratio] 12.2 % Normal 11.5-15.0 [facility] Comment on above: Order Comment: Speci men Type: BLOOD SPECIMENOrdering Facility: [facility] Address: [address] [place] [address] Performed By: #### 5 8410-2, WAMMR ####[facility] LABORATORYCLIA [id number] [place] [address] [place] Hematocrit (Bld) [Volume fraction] 41.4 % Normal 36.0-46.0 [facility] Comment on above: Order Comment: Speci men Type: BLOOD SPECIMENOrdering Facility: [facility] Address: [address] [place] [address] Performed By: #### 5 8410-2, WAMMR ####[facility] LABORATORYCLIA [id number] [place] [address] [place] Hemoglobin (Bld) [Mass/Vol] 13.9 g/dL Normal 11.5-15.5 [facility] Comment on above: Order Comment: Speci men Type: BLOOD SPECIMENOrdering Facility: [facility] Address: [address] [place] [address] Performed By: #### 5 8410-2, WAMMR ####[facility]ORATORYCLIA [id number] [address] [place] MCH (RBC) [Entitic mass] 32.3 pg Normal 26.0-34.0 [facility] Comment on above: Order Comment: Speci men Type: BLOOD SPECIMENOrdering Facility: [facility] Address: [address] [place] [address] Performed By: #### 5 8410-2, WAMMR ####[facility]ORATORYCLIA [id number] [place] [address] [place] MCHC (RBC) [Mass/Vol] 33.6 g/dL Normal 30.5-36.0 [facility] Comment on above: Order Comment: Speci men Type: BLOOD SPECIMENOrdering Facility: [facility] Address: [address] [place] [address] Performed By: #### 5 8410-2, WAMMR ####[facility] LABORATORYCLIA [id number] [address] [place] MCV (RBC) [Entitic vol] 96.1 fL Normal 80.0-100.0 [facility] Comment on above: Order Comment: Speci men Type: BLOOD SPECIMENOrdering Facility: [facility] Address: [address] [place] [address] Performed By: #### 5 8410-2, WAMMR ####[facility]ORATORYCLIA [id number] [address] [place] Nucleated RBC (Bld) [#/Vol] 10*3/uL Normal <0.01 [facility] Comment on above: Order Comment: Speci men Type: BLOOD SPECIMENOrdering Facility: [facility] Address: [address] [place] [address] Performed By: #### 5 8410-2, WAMMR ####[facility]ORATORYCLIA [id number] [address] [place] Platelet mean volume (Bld) [Entitic vol] 10.9 fL Normal 9.0-12.7 [facility] Comment on above: Order Comment: Speci men Type: BLOOD SPECIMENOrdering Facility: [facility] Address: [address] [place] [address] Performed By: #### 5 8410-2, WAGEORGIAR ####[facility]ORATORYCLIA [id number] [place] [id number] [place] Platelets (Bld) [#/Vol] 134 10*3/uL Low 150-400 [facility] Comment on above: Order Comment: Speci men Type: BLOOD SPECIMENOrdering Facility: [facility] Address: [address] [place] [address] Result Comment: Plat elet count confirmed by manual review of peripheral blood smear. No clot detected. Performed By: #### 5 8410-2, STALINR ####[facility]ORATORYCLIA [id number] [place] [address] [place] RBC (Bld) [#/Vol] 4.31 10*6/uL Normal 3.90-5.20 [facility] Comment on above: Order Comment: Speci men Type: BLOOD SPECIMENOrdering Facility: [facility] Address: [address] [place] [address] Performed By: #### 5 8410-2, WAGEORGIAR ####[facility]ORATORYCLIA [id number] [place] [address] [place] WBC (Bld) [#/Vol] 5.99 10*3/uL Normal 3.70-11.00 [facility] Comment on above: Order Comment: Speci men Type: BLOOD SPECIMENOrdering Facility: [facility] Address: [address] [place] [address] Performed By: #### 5 8410-2, WAMMR ####[facility]ORATORYCLIA [id number] [place] [address] [place] CONSULT PROGon 01-04-2025 CONSULT PROG Normal [facility] Comprehensive metabolic 2000 panelon 01-04-2025 Albumin [Mass/Vol] 2.5 g/dL Low 3.2-5.0 [facility] Comment on above: Order Comment: Speci men Type: BLOOD SPECIMENOrdering Facility: [facility] Address: [address] [place] [address] Performed By: #### 2 4323-8 ####[facility]ORATORYCLIA [id number] [place] [id number] [place] ALP [Catalytic activity/Vol] 51 U/L Normal 45-117 [facility] Comment on above: Order Comment: Speci men Type: BLOOD SPECIMENOrdering Facility: [facility] Address: [address] [place] [address] Performed By: #### 2 4323-8 ####[facility]ORATORYCLIA [id number] [place] [address] [place] ALT [Catalytic activity/Vol] 9 U/L Low 13-61 [facility] Comment on above: Order Comment: Speci men Type: BLOOD SPECIMENOrdering Facility: [facility] Address: [address] [place] [address] Result Comment: Resu lts may be falsely depressed after the administration of Sulfasalazine and/or Sulfapyridine. Performed By: #### 2 4323-8 ####[facility]ORATORYCLIA [id number] [place] [address] [place] Anion gap [Moles/Vol] 11 mmol/L Normal 5-16 [facility] Comment on above: Order Comment: Speci men Type: BLOOD SPECIMENOrdering Facility: [facility] Address: [address] [place] [address] Performed By: #### 2 4323-8 ####[facility]ORATORYCLIA [id number] [place] [address] [place] AST [Catalytic activity/Vol] 12 U/L Normal 8-34 [facility] Comment on above: Order Comment: Speci men Type: BLOOD SPECIMENOrdering Facility: [facility] Address: [address] [place] [address] Result Comment: Resu lts may be falsely depressed after the administration of Sulfasalazine and/or Sulfapyridine. Performed By: #### 2 4323-8 ####[facility]ORATORYCLIA [id number] [place] [address] [place] Bilirubin [Mass/Vol] 0.3 mg/dL Normal 0.2-1.0 [facility] Comment on above: Order Comment: Speci men Type: BLOOD SPECIMENOrdering Facility: [facility] Address: [address] [place] [address] Performed By: #### 2 4323-8 ####[facility]ORATORYCLIA [id number] [place] [address] [place] Calcium [Mass/Vol] 9.4 mg/dL Normal 8.5-10.5 [facility] Comment on above: Order Comment: Speci men Type: BLOOD SPECIMENOrdering Facility: [facility] Address: [address] [place] [address] Performed By: #### 2 4323-8 ####[facility]ORATORYCLIA [id number] [place] [address] [place] Chloride [Moles/Vol] 104 mmol/L Normal 98-107 [facility] Comment on above: Order Comment: Speci men Type: BLOOD SPECIMENOrdering Facility: [facility] Address: [address] [place] [address] Performed By: #### 2 4323-8 ####[facility]ORATORYCLIA [id number] [place] [address] [place] CO2 [Moles/Vol] 26 mmol/L Normal 21-32 [facility] Comment on above: Order Comment: Speci men Type: BLOOD SPECIMENOrdering Facility: [facility] Address: [address] [place] [address] Performed By: #### 2 4323-8 ####[facility]ORATORYCLIA [id number] [place] [address] [place] Creatinine [Mass/Vol] 0.52 mg/dL Normal 0.51-0.95 [facility] Comment on above: Order Comment: Speci men Type: BLOOD SPECIMENOrdering Facility: [facility] Address: [address] [place] [address] Result Comment: Marilin ents receiving either N-Acetylcysteine (NAC) or Metamizole prior to venipuncture, may have falsely depressed results. Performed By: #### 2 4323-8 ####[facility]ORATORYCLIA [id number] [place] [address] [place] Creatinine and Glomerular filtration rate.predicted panel (S/P/Bld) 115 mL/min/1.73m??? Normal >=60 [facility] Comment on above: Order Comment: Specpatrice ramos Type: BLOOD SPECIMENOrdering Facility: [facility] Address: [address] [place] [address] Result Comment: Chrissy mated Glomerular Filtration Rate [...] actual GFR. Performed By: #### 2 4323-8 ####[facility]ORATORYCLIA [id number] [place] [address] [place] Glucose [Mass/Vol] 115 mg/dL High 70-100 [facility] Comment on above: Order Comment: Syd ramos Type: BLOOD SPECIMENOrdering Facility: [facility] Address: [address] [place] [address] Result Comment: The [place] Diabetes Association (ADA) provides guidance for cutoff [...] Standards of Medical Care in Diabetes 2016, [place] Diabetes Association. Diabetes Care. 2016.39(Suppl 1).Results may be falsely elevated after the administration of Sulfapyridine.Results may be falsely depressed after the administration of Sulfasalazine. Performed By: #### 2 4323-8 ####[facility]ORATORYCLIA [id number] [address] [place] Potassium [Moles/Vol] 3.9 mmol/L Normal 3.5-5.1 [facility] Comment on above: Order Comment: Speci men Type: BLOOD SPECIMENOrdering Facility: [facility] Address: [address] [place] [address] Performed By: #### 2 4323-8 ####[facility]ORATORYCLIA [id number] [address] [place] Protein [Mass/Vol] 5.8 g/dL Low 6.0-8.5 [facility] Comment on above: Order Comment: Speci men Type: BLOOD SPECIMENOrdering Facility: [facility] Address: [address] [place] [address] Performed By: #### 2 4323-8 ####[facility]ORATORYCLIA [id number] [address] [place] Sodium [Moles/Vol] 141 mmol/L Normal 136-145 [facility] Comment on above: Order Comment: Speci men Type: BLOOD SPECIMENOrdering Facility: [facility] Address: [address] [place] [address] Performed By: #### 2 4323-8 ####[facility]ORATORYCLIA [id number] [address] [place] Urea nitrogen [Mass/Vol] 9 mg/dL Normal 7-26 [facility] Comment on above: Order Comment: Speci men Type: BLOOD SPECIMENOrdering Facility: [facility] Address: [address] [place] [address] Performed By: #### 2 4323-8 ####[facility]ORATORYCLIA [id number] [place] [address] [place] MORPH WAM REFLEXon 5 Ovalocytes LM Ql (Bld) Few Normal [facility] Comment on above: Order Comment: Speci men Type: BLOOD SPECIMENOrdering Facility: [facility] Address: [address] [place] [address] Performed By: #### 5 8410-2, WAGEORGIAR ####[facility]ORATORYCLIA [id number] [place] [address] [place] Platelets Estimate (Bld) [#/Vol] Decreased Normal [facility] Comment on above: Order Comment: Speci men Type: BLOOD SPECIMENOrdering Facility: [facility] Address: [address] [place] [address] Performed By: #### 5 8410-2, WAGEORGIAR ####[facility]ORATORYCLIA [id number] [place] [address] [place] Polychromasia LM Ql (Bld) Slight [facility] Comment on above: Order Comment: Speci men Type: BLOOD SPECIMENOrdering Facility: [facility] Address: [address] [place] [address] Performed By: #### 5 8410-2, WAMMR ####[facility]ORATORYCLIA [id number] [address] [place] RED CELL MORPH Reviewed: see result s of individual morphologies [facility] Comment on above: Order Comment: Speci men Type: BLOOD SPECIMENOrdering Facility: [facility] Address: [address] [place] [address] Performed By: #### 5 8410-2, WAMMR ####[facility]ORATORYCLIA [id number] [place] [address] [place] THERAPY NTon 01-04-2025 THERAPY NT [facility] THERAPY NT [facility] CBC panel Auto (Bld)on 01-03 Erythrocyte distribution width (RBC) [Ratio] 12.2 % Normal 11.5-15.0 [facility] Comment on above: Order Comment: Speci men Type: BLOOD SPECIMENOrdering Facility: [facility] Address: [address] [place] [address] Performed By: #### 5 8410-2 ####[facility]ORATORYCLIA [id number] [address] [place] Hematocrit (Bld) [Volume fraction] 39.5 % Normal 36.0-46.0 [facility] Comment on above: Order Comment: Speci men Type: BLOOD SPECIMENOrdering Facility: [facility] Address: [address] [place] [address] Performed By: #### 5 8410-2 ####[facility]ORATORYCLIA [id number] [address] [place] Hemoglobin (Bld) [Mass/Vol] 13.7 g/dL Normal 11.5-15.5 [facility] Comment on above: Order Comment: Speci men Type: BLOOD SPECIMENOrdering Facility: [facility] Address: [address] [place] [address] Performed By: #### 5 8410-2 ####[facility]ORATORYCLIA [id number] [address] [place] OF [facility] MCH (RBC) [Entitic mass] 32.5 pg Normal 26.0-34.0 [facility] Comment on above: Order Comment: Speci men Type: BLOOD SPECIMENOrdering Facility: [facility] Address: [address] [place] [address] Performed By: #### 5 8410-2 ####[facility]ORATORYCLIA [id number] [place] [address] [place] MCHC (RBC) [Mass/Vol] 34.7 g/dL Normal 30.5-36.0 [facility] Comment on above: Order Comment: Speci men Type: BLOOD SPECIMENOrdering Facility: [facility] Address: [address] [place] [address] Performed By: #### 5 8410-2 ####[facility]ORATORYCLIA [id number] [place] [address] [place] MCV (RBC) [Entitic vol] 93.6 fL Normal 80.0-100.0 [facility] Comment on above: Order Comment: Speci men Type: BLOOD SPECIMENOrdering Facility: [facility] Address: [address] [place] [address] Performed By: #### 5 8410-2 ####[facility]ORATORYCLIA [id number] [place] [id number] [place] Nucleated RBC (Bld) [#/Vol] 10*3/uL Normal <0.01 [facility] Comment on above: Order Comment: Speci men Type: BLOOD SPECIMENOrdering Facility: [facility] Address: [address] [place] [address] Performed By: #### 5 8410-2 ####[facility]ORATORYCLIA [id number] [place] [address] [place] Platelet mean volume (Bld) [Entitic vol] 10.2 fL Normal 9.0-12.7 [facility] Comment on above: Order Comment: Speci men Type: BLOOD SPECIMENOrdering Facility: [facility] Address: [address] [place] [address] Performed By: #### 5 8410-2 ####[facility]ORATORYCLIA [id number] [place] [address] [place] Platelets (Bld) [#/Vol] 153 10*3/uL Normal 150-400 [facility] Comment on above: Order Comment: Speci men Type: BLOOD SPECIMENOrdering Facility: [facility] Address: [address] [place] [address] Performed By: #### 5 8410-2 ####[facility]ORATORYCLIA [id number] [place] [address] [place] RBC (Bld) [#/Vol] 4.22 10*6/uL Normal 3.90-5.20 [facility] Comment on above: Order Comment: Speci men Type: BLOOD SPECIMENOrdering Facility: [facility] Address: [address] [place] [address] Performed By: #### 5 8410-2 ####[facility]ORATORYCLIA [id number] [place] [address] [place] WBC (Bld) [#/Vol] 7.98 10*3/uL Normal 3.70-11.00 [facility] Comment on above: Order Comment: Speci men Type: BLOOD SPECIMENOrdering Facility: [facility] Address: [address] [place] [address] Performed By: #### 5 8410-2 ####[facility]ORATORYCLIA [id number] [address] [place] CONSULT PROGon 01-03-2025 CONSULT PROG Normal [facility] Comprehensive metabolic 2000 panelon 01-03-2025 Albumin [Mass/Vol] 2.6 g/dL Low 3.2-5.0 [facility] Comment on above: Order Comment: Speci men Type: BLOOD SPECIMENOrdering Facility: [facility] Address: [address] [place] [address] Performed By: #### 2 4323-8 ####[facility]ORATORYCLIA [id number] [address] [place] ALP [Catalytic activity/Vol] 52 U/L Normal 45-117 [facility] Comment on above: Order Comment: Speci men Type: BLOOD SPECIMENOrdering Facility: [facility] Address: [address] [place] [address] Performed By: #### 2 4323-8 ####[facility]ORATORYCLIA [id number] [address] [place] ALT [Catalytic activity/Vol] 9 U/L Low 13-61 [facility] Comment on above: Order Comment: Speci men Type: BLOOD SPECIMENOrdering Facility: [facility] Address: [address] [place] [address] Result Comment: Resu lts may be falsely depressed after the administration of Sulfasalazine and/or Sulfapyridine. Performed By: #### 2 4323-8 ####[facility]ORATORYCLIA [id number] [address] [place] Anion gap [Moles/Vol] 6 mmol/L Normal 5-16 [facility] Comment on above: Order Comment: Speci men Type: BLOOD SPECIMENOrdering Facility: [facility] Address: [address] [place] [address] Performed By: #### 2 4323-8 ####[facility]ORATORYCLIA [id number] [place] [address] [place] AST [Catalytic activity/Vol] 14 U/L Normal 8-34 [facility] Comment on above: Order Comment: Speci men Type: BLOOD SPECIMENOrdering Facility: [facility] Address: [address] [place] [address] Result Comment: Resu lts may be falsely depressed after the administration of Sulfasalazine and/or Sulfapyridine. Performed By: #### 2 4323-8 ####[facility]ORATORYCLIA [id number] [place] [address] [place] Bilirubin [Mass/Vol] 0.4 mg/dL Normal 0.2-1.0 [facility] Comment on above: Order Comment: Speci men Type: BLOOD SPECIMENOrdering Facility: [facility] Address: [address] [place] [address] Performed By: #### 2 4323-8 ####[facility] LABORATORYCLIA [id number] [place] [address] [place] Calcium [Mass/Vol] 9.5 mg/dL Normal 8.5-10.5 [facility] Comment on above: Order Comment: Speci men Type: BLOOD SPECIMENOrdering Facility: [facility] Address: [address] [place] [address] Performed By: #### 2 4323-8 ####[facility] LABORATORYCLIA [id number] [place] [address] [place] Chloride [Moles/Vol] 106 mmol/L Normal 98-107 [facility] Comment on above: Order Comment: Speci men Type: BLOOD SPECIMENOrdering Facility: [facility] Address: [address] [place] [address] Performed By: #### 2 4323-8 ####[facility] LABORATORYCLIA [id number] [place] [address] [place] CO2 [Moles/Vol] 27 mmol/L Normal 21-32 [facility] Comment on above: Order Comment: Speci men Type: BLOOD SPECIMENOrdering Facility: [facility] Address: [address] [place] [address] Performed By: #### 2 4323-8 ####[facility] LABORATORYCLIA [id number] [place] [address] [place] Creatinine [Mass/Vol] 0.50 mg/dL Low 0.51-0.95 [facility] Comment on above: Order Comment: Speci men Type: BLOOD SPECIMENOrdering Facility: [facility] Address: [address] [place] [address] Result Comment: Marilin ents receiving either N-Acetylcysteine (NAC) or Metamizole prior to venipuncture, may have falsely depressed results. Performed By: #### 2 4323-8 ####[facility] LABORATORYCLIA [id number] [address] Creatinine and Glomerular filtration rate.predicted panel (S/P/Bld) 117 mL/min/1.73m??? Normal >=60 [facility] Comment on above: Order Comment: Speci men Type: BLOOD SPECIMENOrdering Facility: [facility] Address: [address] [place] [address] Result Comment: Chrissy mated Glomerular Filtration Rate [...] actual GFR. Performed By: #### 2 4323-8 ####[facility] LABORATORYCLIA [id number] [place] [id number] [place] Glucose [Mass/Vol] 103 mg/dL High 70-100 [facility] Comment on above: Order Comment: Syd ramos Type: BLOOD SPECIMENOrdering Facility: [facility] Address: [address] [place] [address] Result Comment: The [place] Diabetes Association (ADA) provides guidance for cutoff [...] Standards of Medical Care in Diabetes 2016, [place] Diabetes Association. Diabetes Care. 2016.39(Suppl 1).Results may be falsely elevated after the administration of Sulfapyridine.Results may be falsely depressed after the administration of Sulfasalazine. Performed By: #### 2 4323-8 ####[facility] LABORATORYCLIA [id number] [place] [address] [place] Potassium [Moles/Vol] 3.8 mmol/L Normal 3.5-5.1 [facility] Comment on above: Order Comment: Syd ramos Type: BLOOD SPECIMENOrdering Facility: [facility] Address: [address] [place] [address] Performed By: #### 2 4323-8 ####[facility] LABORATORYCLIA [id number] [place] [address] [place] Protein [Mass/Vol] 6.0 g/dL Normal 6.0-8.5 [facility] Comment on above: Order Comment: Syd ramos Type: BLOOD SPECIMENOrdering Facility: [facility] Address: [address] [place], [place] [id number] Performed By: #### 2 4323-8 ####[facility] LABORATORYCLIA [id number] [place] [address] [place] Sodium [Moles/Vol] 139 mmol/L Normal 136-145 [facility] Comment on above: Order Comment: Syd ramos Type: BLOOD SPECIMENOrdering Facility: [facility] Address: [address] [place] [address] Performed By: #### 2 4323-8 ####[facility] LABORATORYCLIA [id number] [place] [id number] [place] Urea nitrogen [Mass/Vol] 8 mg/dL Normal 7-26 [facility] Comment on above: Order Comment: Syd richard Type: BLOOD SPECIMENOrdering Facility: [facility] Address: [address] [place] [address] Performed By: #### 2 4323-8 ####[facility] LABORATORYCLIA [id number] [place] [id number] [place] THERAPY NTon 01-03-2025 THERAPY NT Normal [facility] XR ABDOMEN 1V SUPINEon 01-03 XR ABDOMEN 1V SUPINE Normal [facility] AUTOIMMUNE ENCEPHALOPATHY EV ALUATION, CSFon 01-02-2025 AMPA-RECEPTOR AB CBA, CSF Negative Normal Negative [facility] Comment on above: Order Comment: Syd ramos Type: CEREBROSPINAL FLUID SPECIMENOrdering Facility: [facility] Address: [address] [place] [address] Result Comment: ---- ADDITIONAL INFORMATION This test was developed and its performance characteristicsdetermined by [facility] in a manner consistent with CLIArequirements. This test has not been cleared or approved bythe U.S. Food and Drug Administration. Performed By: #### E NCCS ####[facility] LABCLIA [id number] [place] [address] AMPHIPHYSIN AB, CSF Negative Normal Negative [facility] Comment on above: Order Comment: Syd richard Type: CEREBROSPINAL FLUID SPECIMENOrdering Facility: [facility] Address: [address] [place] [address] Result Comment: ---- ADDITIONAL INFORMATION This test was developed and its performance characteristicsdetermined by [facility] in a manner consistent with CLIArequirements. This test has not been cleared or approved bythe U.S. Food and Drug Administration. Performed By: #### E NCCSF ####[facility] LABCLIA [id number] [place] [address] ANTI-GLIAL NUCLEAR AB TYPE 1, CSF Negative Normal Negative [facility] Comment on above: Order Comment: Syd ramos Type: CEREBROSPINAL FLUID SPECIMENOrdering Facility: [facility] Address: [address] [place] [address] Result Comment: ---- ADDITIONAL INFORMATION This test was developed and its performance characteristicsdetermined by [facility] in a manner consistent with CLIArequirements. This test has not been cleared or approved bythe U.S. Food and Drug Administration. Performed By: #### E NCCSF ####[facility] LABCLIA [id number] [place] [address] ANTI-NEURONAL AB TYPE 1, CSF Negative Normal Negative [facility] Comment on above: Order Comment: Syd ramos Type: CEREBROSPINAL FLUID SPECIMENOrdering Facility: [facility] Address: [address] [place] [address] Result Comment: ---- ADDITIONAL INFORMATION This test was developed and its performance characteristicsdetermined by [facility] in a manner consistent with CLIArequirements. This test has not been cleared or approved bythe U.S. Food and Drug Administration. Performed By: #### E NCCSF ####[facility] RE[facility] LABCLIA [id number] [place] [address] ANTI-NEURONAL AB TYPE 2, CSF Negative Normal Negative [facility] Comment on above: Order Comment: Syd [facility] Type: CEREBROSPINAL FLUID SPECIMENOrdering Facility: [facility] Address: [address] [place] [address] Result Comment: ---- ADDITIONAL INFORMATION This test was developed and its performance characteristicsdetermined by [facility] in a manner consistent with CLIArequirements. This test has not been cleared or approved bythe U.S. Food and Drug Administration. Performed By: #### E NCCSF ####[facility] LABCLIA [id number] [place] [address] ANTI-NEURONAL AB TYPE 3, CSF Negative Normal Negative [facility] Comment on above: Order Comment: Syd [facility] Type: CEREBROSPINAL FLUID SPECIMENOrdering Facility: [facility] Address: [address] [place] [address] Result Comment: ---- ADDITIONAL INFORMATION This test was developed and its performance characteristicsdetermined by [facility] in a manner consistent with CLIArequirements. This test has not been cleared or approved bythe .S. Food and Drug Administration. Performed By: #### E NCCSF ####[facility] LABCLIA [id number] [place] [address] CASPR2 IGG, CSF Negative Normal Negative [facility] Comment on above: Order Comment: Syd ramos Type: CEREBROSPINAL FLUID SPECIMENOrdering Facility: [facility] Address: [address] [place] [address] Result Comment: ---- ADDITIONAL INFORMATION This test was developed and its performance characteristicsdetermined by [facility] in a manner consistent with CLIArequirements. This test has not been cleared or approved bythe U.S. Food and Drug Administration. Performed By: #### E NCCSF ####[facility] RE[facility] LABCLIA [id number] [place] [address] CRMP-5 IGG, CSF Negative Normal Negative [facility] Comment on above: Order Comment: Syd [facility] Type: CEREBROSPINAL FLUID SPECIMENOrdering Facility: [facility] Address: [address] [place] [address] Result Comment: ---- ADDITIONAL INFORMATION This test was developed and its performance characteristicsdetermined by [facility] in a manner consistent with CLGeewaequireNautit. This test has not been cleared or approved bythe U.S. Food and Drug Administration. Performed By: #### E NCCSF ####[facility] RE[facility] LABCLIA [id number] [place] [address] DPPX AB CBA, CSF Negative Normal Negative [facility] Comment on above: Order Comment: Syd [facility] Type: CEREBROSPINAL FLUID SPECIMENOrdering Facility: [facility] Address: [address] [place] [address] Result Comment: ---- ADDITIONAL INFORMATION This test was developed and its performance characteristicsdetermined by [facility] in a manner consistent with CLIArequireNautit. This test has not been cleared or approved bythe .S. Food and Drug Administration. Performed By: #### E NCCSF ####[facility] LABCLIA [id number] [place] [address] ENCEPHALOPATHY INTERPRETATION, CSF SEE NOTE Normal [facility] Comment on above: Order Comment: [facility] Type: CEREBROSPINAL FLUID SPECIMENOrdering Facility: [facility] Address: [address] [place] [address] Result Comment: No i nformative autoantibodies were detected in thisevaluation. However, a negative result does not excludeautoimmune encephalopathy, idiopathic or paraneoplastic.Sensitivity and specificity of antibody testing areenhanced by testing both serum and CSF. Performed By: #### E NCCSF ####[facility] LABCLIA [id number] [place] [address] ABRAN-B-R AB CBA, CSF Negative Normal Negative [facility] Comment on above: Order Comment: [facility] Type: CEREBROSPINAL FLUID SPECIMENOrdering Facility: [facility] Address: [address] [place] [address] Result Comment: ---- ADDITIONAL INFORMATION This test was developed and its performance characteristicsdetermined by [facility] in a manner consistent with CLIArequirements. This test has not been cleared or approved bythe U.S. Food and Drug Administration. Performed By: #### E NCCSF ####[facility] RE[facility] LABCLIA [id number] [place] [address] GAD65 ANTIBODY, CSF 0.00 nmol/L Normal <= 0.02 [facility] Comment on above: Order Comment: Syd ramos Type: CEREBROSPINAL FLUID SPECIMENOrdering Facility: [facility] Address: [address] [place] [address] Result Comment: ---- ADDITIONAL INFORMATION This test was developed and its performance characteristicsdetermined by [facility] in a manner consistent with CLIArequirements. This test has not been cleared or approved bythe U.S. Food and Drug Administration. Performed By: #### Jenna NCCSF ####[facility] LABCLIA [id number] [place] [address] GFAP IFA, CSF Negative Normal Negative [facility] Comment on above: Order Comment: Syd ramos Type: CEREBROSPINAL FLUID SPECIMENOrdering Facility: [facility] Address: [address] [place] [address] Result Comment: ---- ADDITIONAL INFORMATION This test was developed and its performance characteristicsdetermined by [facility] in a manner consistent with CLIArequirements. This test has not been cleared or approved bythe U.S. Food and Drug Administration. Performed By: #### E NCCSF ####[facility] LABCLIA [id number] [place] [address] IFA NOTES - ENCCSF None. Normal [facility] Comment on above: Order Comment: Speci richard Type: CEREBROSPINAL FLUID SPECIMENOrdering Facility: [facility] Address: [address] [place] [address] Performed By: #### E NCCSF ####[facility] LABCLIA [id number] [place] [address] IGLON5 CBA, CSF Negative Normal Negative [facility] Comment on above: Order Comment: Syd ramos Type: CEREBROSPINAL FLUID SPECIMENOrdering Facility: [facility] Address: [address] [place] [address] Result Comment: ---- ADDITIONAL INFORMATION This test was developed and its performance characteristicsdetermined by [facility] in a manner consistent with CLIArequirements. This test has not been cleared or approved bythe .S. Food and Drug Administration. Performed By: #### E NCCSF ####[facility] LABCLIA [id number] [place] [address] LGI1 IGG, CSF Negative Normal Negative [facility] Comment on above: Order Comment: Syd ramos Type: CEREBROSPINAL FLUID SPECIMENOrdering Facility: [facility] Address: [address] [place] [address] Result Comment: ---- ADDITIONAL INFORMATION This test was developed and its performance characteristicsdetermined by [facility] in a manner consistent with CLIArequirements. This test has not been cleared or approved bythe U.S. Food and Drug Administration. Performed By: #### E NCCSF ####[facility] LABCLIA [id number] [place] [address] MGLUR1 AB IFA, CSF Negative Normal Negative [facility] Comment on above: Order Comment: Syd richard Type: CEREBROSPINAL FLUID SPECIMENOrdering Facility: [facility] Address: [address] [place] [address] Result Comment: ---- ADDITIONAL INFORMATION This test was developed and its performance characteristicsdetermined by [facility] in a manner consistent with CLIArequirements. This test has not been cleared or approved bythe U.S. Food and Drug Administration. Performed By: #### E NCCSF ####[facility] LABCLIA [id number] [place] [address] NEUROCHONDRIN IFA, CSF Negative Normal Negative [facility] Comment on above: Order Comment: Syd [facility] Type: CEREBROSPINAL FLUID SPECIMENOrdering Facility: [facility] Address: [address] [place] [address] Result Comment: ---- ADDITIONAL INFORMATION This test was developed and its performance characteristicsdetermined by [facility] in a manner consistent with CLIArequirements. This test has not been cleared or approved bythe .S. Food and Drug Administration. Performed By: #### E NCCSF ####[facility] LABCLIA [id number] [place] [address] NIF IFA, CSF Negative Normal Negative [facility] Comment on above: Order Comment: Syd ramos Type: CEREBROSPINAL FLUID SPECIMENOrdering Facility: [facility] Address: [address] [place] [address] Result Comment: ---- ADDITIONAL INFORMATION This test was developed and its performance characteristicsdetermined by [facility] in a manner consistent with CLIArequirements. This test has not been cleared or approved bythe U.S. Food and Drug Administration. Performed By: #### E NCCSF ####[facility] LABCLIA [id number] [place] [address] NMDA-RECEPTOR AB CBA, CSF Negative Normal Negative [facility] Comment on above: Order Comment: Syd [facility] Type: CEREBROSPINAL FLUID SPECIMENOrdering Facility: [facility] Address: [address] [place] [address] Result Comment: ---- ADDITIONAL INFORMATION This test was developed and its performance characteristicsdetermined by [facility] in a manner consistent with CLIArequirements. This test has not been cleared or approved bythe U.S. Food and Drug Administration. Performed By: #### E NCCSF ####[facility] LABCLIA [id number] [place] [address] PDE10A AB IFA, CSF Negative Normal Negative [facility] Comment on above: Order Comment: Syd ramos Type: CEREBROSPINAL FLUID SPECIMENOrdering Facility: [facility] Address: [address] [place] [address] Result Comment: ---- ADDITIONAL INFORMATION This test was developed and its performance characteristicsdetermined by [facility] in a manner consistent with CLIArequirements. This test has not been cleared or approved bythe U.S. Food and Drug Administration. Performed By: #### E NCCSF ####[facility] LABCLIA [id number] [place] [address] PURKINJE CELL CYTO AB TYPE 1, CSF Negative Normal Negative [facility] Comment on above: Order Comment: Syd ramos Type: CEREBROSPINAL FLUID SPECIMENOrdering Facility: [facility] Address: [address] [place] [address] Result Comment: ---- ADDITIONAL INFORMATION This test was developed and its performance characteristicsdetermined by [facility] in a manner consistent with CLIArequirements. This test has not been cleared or approved bythe U.S. Food and Drug Administration. Performed By: #### E NCCSF ####[facility] LABCLIA [id number] [place] [address] PURKINJE CELL CYTO AB TYPE 2, CSF Negative Normal Negative [facility] Comment on above: Order Comment: Syd [facility] Type: CEREBROSPINAL FLUID SPECIMENOrdering Facility: [facility] Address: [address] [place] [address] Result Comment: ---- ADDITIONAL INFORMATION This test was developed and its performance characteristicsdetermined by [facility] in a manner consistent with CLIArequirements. This test has not been cleared or approved bythe .[place]. Food and Drug Administration. Performed By: #### E NCCSF ####[facility] LABCLIA [id number] [place] [id number] PURKINJE CELL CYTO AB TYPE TR, CSF Negative Normal Negative [facility] Comment on above: Order Comment: [facility] Type: CEREBROSPINAL FLUID SPECIMENOrdering Facility: [facility] Address: [address] [place] [address] Result Comment: ---- ADDITIONAL INFORMATION This test was developed and its performance characteristicsdetermined by [facility] in a manner consistent with CLIArequirements. This test has not been cleared or approved bythe U.S. Food and Drug Administration. Performed By: #### E NCCSF ####[facility] LABCLIA [id number] [place] [id number] SEPTIN-7 IFA, CSF Negative Normal Negative [facility] Comment on above: Order Comment: [facility] Type: CEREBROSPINAL FLUID SPECIMENOrdering Facility: [facility] Address: [address] [place] [address] Result Comment: ---- ADDITIONAL INFORMATION This test was developed and its performance characteristicsdetermined by [facility] in a manner consistent with CLIArequirements. This test has not been cleared or approved bythe U.S. Food and Drug Administration. Performed By: #### E NCCSF ####[facility] LABCLIA [id number] [place] [address] TRIM46 AB IFA, CSF Negative Normal Negative [facility] Comment on above: Order Comment: Syd ramos Type: CEREBROSPINAL FLUID SPECIMENOrdering Facility: [facility] Address: [address] [place] [address] Result Comment: ---- ADDITIONAL INFORMATION This test was developed and its performance characteristicsdetermined by [facility] in a manner consistent with CLIArequirements. This test has not been cleared or approved bythe U.S. Food and Drug Administration.Test Performed by:[address] [address]Hlg Director: Cinthia Resendiz Ph.D.; CLIA# [id number] Performed By: #### E NCCSF ####[facility] LABCLIA [id number] [place] [address] BANDS OLIGOCLONAL CSFon 12-16 CSF OLIGOCLONAL BANDS Identical oligoclo nal bands are present in both the CSF and serum. No unique bands are present in the CSF. Suggestive of systemic immune reaction with transfer of serum IgG to CSF. No evidence of intrathecal synthesis. Normal [facility] Comment on above: Order Comment: Speci men Type: CEREBROSPINAL FLUID SPECIMENOrdering Facility: [facility] Address: [address] [place] [address] Performed By: #### Prudencio DOLGCSF ####[facility] LABCLIA [id number] [place] [address] [place] STAFF REVIEW (OLIGO BANDING) Reviewed by Cristin Santoyo M.D., Ph.D [facility] Comment on above: Order Comment: Syd ramos Type: CEREBROSPINAL FLUID SPECIMENOrdering Facility: [facility] Address: [address] [place] [address] Performed By: #### Prudencio DOLGCSF ####[facility] LABCLIA [id number] [facility]ITALCor[facility] [address] [place] BRIEF OP NOTon 01-02-2025 BRIEF OP NOT Normal [facility] Bacteria CSF Culton 01-03-20 25 Bacteria identified Cx Nom (CSF) CULTURE, CSF: No growth 5 days GRAM STAIN: No WBCs seen No organisms seen Normal [facility] Comment on above: Performed By: #### 6 06-4 ####[facility] LABORATORYCLIA [id number] [place] [address] [place] CASE MANAGEMon 01-02-2025 CASE MANAGEM Normal [facility] CBC W Auto Differential pane l (Bld)on 01-02-2025 Basophils (Bld) [#/Vol] 10*3/uL Normal <0.11 [facility] Comment on above: Order Comment: Speci men Type: BLOOD SPECIMENOrdering Facility: [facility] Address: [address] [place] [address] Performed By: #### 5 7021-8 ####[facility] LABORATORYCLIA [id number] [place] [address] [place] Basophils/100 WBC (Bld) 0.3 % Normal [facility] Comment on above: Order Comment: Speci men Type: BLOOD SPECIMENOrdering Facility: [facility] Address: [address] [place] [address] Performed By: #### 5 7021-8 ####[facility] LABORATORYCLIA [id number] [place] [address] [place] Differential cell count method Nom (Bld) Auto Normal [facility] Comment on above: Order Comment: Speci men Type: BLOOD SPECIMENOrdering Facility: [facility] Address: [address] [place] [address] Performed By: #### 5 7021-8 ####[facility] LABORATORYCLIA [id number] [place] [address] [place] Eosinophils (Bld) [#/Vol] 0.04 10*3/uL Normal <0.46 [facility] Comment on above: Order Comment: Speci men Type: BLOOD SPECIMENOrdering Facility: [facility] Address: [address] [place] [address] Performed By: #### 5 7021-8 ####[facility] LABORATORYCLIA [id number] [place] [id number] [place] Eosinophils/100 WBC (Bld) 0.5 % Normal [facility] Comment on above: Order Comment: Speci men Type: BLOOD SPECIMENOrdering Facility: [facility] Address: [address] [place] [address] Performed By: #### 5 7021-8 ####[facility] LABORATORYCLIA [id number] [place] [address] [place] Erythrocyte distribution width (RBC) [Ratio] 12.0 % Normal 11.5-15.0 [facility] Comment on above: Order Comment: Speci men Type: BLOOD SPECIMENOrdering Facility: [facility] Address: [address] [place] [address] Performed By: #### 5 7021-8 ####[facility] LABORATORYCLIA [id number] [place] [address] [place] Hematocrit (Bld) [Volume fraction] 41.0 % Normal 36.0-46.0 [facility] Comment on above: Order Comment: Speci men Type: BLOOD SPECIMENOrdering Facility: [facility] Address: [address] [place] [address] Performed By: #### 5 7021-8 ####[facility] LABORATORYCLIA [id number] [place] [address] [place] Hemoglobin (Bld) [Mass/Vol] 14.1 g/dL Normal 11.5-15.5 [facility] Comment on above: Order Comment: Speci men Type: BLOOD SPECIMENOrdering Facility: [facility] Address: [address] [place] [address] Performed By: #### 5 7021-8 ####[facility] LABORATORYCLIA [id number] [place] [address] [place] Immature granulocytes (Bld) [#/Vol] 0.08 10*3/uL Normal <0.10 [facility] Comment on above: Order Comment: Speci men Type: BLOOD SPECIMENOrdering Facility: [facility] Address: [address] [place] [address] Performed By: #### 5 7021-8 ####[facility] LABORATORYCLIA [id number] [place] [address] [place] Immature granulocytes/100 WBC (Bld) 1.1 % Normal [facility] Comment on above: Order Comment: Speci men Type: BLOOD SPECIMENOrdering Facility: [facility] Address: [address] [place] [address] Performed By: #### 5 7021-8 ####[facility] LABORATORYCLIA [id number] [place] [address] [place] Lymphocytes (Bld) [#/Vol] 1.85 10*3/uL Normal 1.00-4.00 [facility] Comment on above: Order Comment: Speci men Type: BLOOD SPECIMENOrdering Facility: [facility] Address: [address] [place] [address] Performed By: #### 5 7021-8 ####[facility] LABORATORYCLIA [id number] [address] [place] Lymphocytes/100 WBC (Bld) 25.1 % Normal [facility] Comment on above: Order Comment: Speci men Type: BLOOD SPECIMENOrdering Facility: [facility] Address: [address] [place] [address] Performed By: #### 5 7021-8 ####[facility] LABORATORYCLIA [id number] [place] [address] [place] MCH (RBC) [Entitic mass] 32.0 pg Normal 26.0-34.0 [facility] Comment on above: Order Comment: Speci men Type: BLOOD SPECIMENOrdering Facility: [facility] Address: [address] [place] [address] Performed By: #### 5 7021-8 ####[facility] LABORATORYCLIA [id number] [place] [id number] [place] MCHC (RBC) [Mass/Vol] 34.4 g/dL Normal 30.5-36.0 [facility] Comment on above: Order Comment: Speci men Type: BLOOD SPECIMENOrdering Facility: [facility] Address: [address] [place] [address] Performed By: #### 5 7021-8 ####[facility] LABORATORYCLIA [id number] [place] [address] [place] MCV (RBC) [Entitic vol] 93.2 fL Normal 80.0-100.0 [facility] Comment on above: Order Comment: Speci men Type: BLOOD SPECIMENOrdering Facility: [facility] Address: [address] [place] [address] Performed By: #### 5 7021-8 ####[facility] LABORATORYCLIA [id number] [place] [address] [place] Monocytes (Bld) [#/Vol] 0.90 10*3/uL High <0.87 [facility] Comment on above: Order Comment: Speci men Type: BLOOD SPECIMENOrdering Facility: [facility] Address: [address] [place] [address] Performed By: #### 5 7021-8 ####[facility] LABORATORYCLIA [id number] [address] [place] Monocytes/100 WBC (Bld) 12.2 % Normal [facility] Comment on above: Order Comment: Speci men Type: BLOOD SPECIMENOrdering Facility: [facility] Address: [address] [place] [address] Performed By: #### 5 7021-8 ####[facility] LABORATORYCLIA [id number] [place] [address] [place] Neutrophils (Bld) [#/Vol] 4.47 10*3/uL Normal 1.45-7.50 [facility] Comment on above: Order Comment: Speci men Type: BLOOD SPECIMENOrdering Facility: [facility] Address: [address] [place] [address] Performed By: #### 5 7021-8 ####[facility] LABORATORYCLIA [id number] [place] [address] [place] Neutrophils/100 WBC (Bld) 60.8 % Normal [facility] Comment on above: Order Comment: Speci men Type: BLOOD SPECIMENOrdering Facility: [facility] Address: [address] [place] [address] Performed By: #### 5 7021-8 ####[facility] LABORATORYCLIA [id number] [place] [address] [place] Nucleated RBC (Bld) [#/Vol] 10*3/uL Normal <0.01 [facility] Comment on above: Order Comment: Speci men Type: BLOOD SPECIMENOrdering Facility: [facility] Address: [address] [place] [address] Performed By: #### 5 7021-8 ####[facility] LABORATORYCLIA [id number] [place] [address] [place] Nucleated RBC/100 WBC (Bld) [Ratio] 0.0 /100 WBC Normal [facility] Comment on above: Order Comment: Speci men Type: BLOOD SPECIMENOrdering Facility: [facility] Address: [address] [place] [address] Performed By: #### 5 7021-8 ####[facility] LABORATORYCLIA [id number] [place] [address] [place] Platelet mean volume (Bld) [Entitic vol] 10.4 fL Normal 9.0-12.7 [facility] Comment on above: Order Comment: Speci men Type: BLOOD SPECIMENOrdering Facility: [facility] Address: [address] [place] [address] Performed By: #### 5 7021-8 ####[facility] LABORATORYCLIA [id number] [place] [address] [place] Platelets (Bld) [#/Vol] 159 10*3/uL Normal 150-400 [facility] Comment on above: Order Comment: Speci men Type: BLOOD SPECIMENOrdering Facility: [facility] Address: [address] [place] [address] Performed By: #### 5 7021-8 ####[facility] LABORATORYCLIA [id number] [address] RBC (Bld) [#/Vol] 4.40 10*6/uL Normal 3.90-5.20 [facility] Comment on above: Order Comment: Speci men Type: BLOOD SPECIMENOrdering Facility: [facility] Address: [address] [place] [address] Performed By: #### 5 7021-8 ####[facility] LABORATORYCLIA [id number] [address] WBC (Bld) [#/Vol] 7.36 10*3/uL Normal 3.70-11.00 [facility] Comment on above: Order Comment: Speci men Type: BLOOD SPECIMENOrdering Facility: [facility] Address: [address] [place] [address] Performed By: #### 5 7021-8 ####[facility] LABORATORYCLIA [id number] [address] CBC panel Auto (Bld)on 01-02 Erythrocyte distribution width (RBC) [Ratio] 12.1 % Normal 11.5-15.0 [facility] Comment on above: Order Comment: Speci men Type: BLOOD SPECIMENOrdering Facility: [facility] Address: [address] [place] [address] Performed By: #### 5 8410-2 ####[facility] LABORATORYCLIA [id number] [address] [place]#### [address]287-6 ####[facility] LABCLIA [id number] [address] [place] Hematocrit (Bld) [Volume fraction] 41.2 % Normal 36.0-46.0 [facility] Comment on above: Order Comment: Speci men Type: BLOOD SPECIMENOrdering Facility: [facility] Address: [address] [place] [address] Performed By: #### 5 8410-2 ####[facility] LABORATORYCLIA [id number] [place] [address] [place]#### 41809-8 ####[facility] LABCLIA [id number] [place] [address] [place] Hemoglobin (Bld) [Mass/Vol] 14.0 g/dL Normal 11.5-15.5 [facility] Comment on above: Order Comment: Speci men Type: BLOOD SPECIMENOrdering Facility: [facility] Address: [address] [place] [address] Performed By: #### 5 8410-2 ####[facility] LABORATORYCLIA [id number] [place] [address] [place]#### 82577-1 ####[facility] LABCLIA [id number] [place] [address] [place] MCH (RBC) [Entitic mass] 32.3 pg Normal 26.0-34.0 [facility] Comment on above: Order Comment: Speci men Type: BLOOD SPECIMENOrdering Facility: [facility] Address: [address] [place] [address] Performed By: #### 5 8410-2 ####[facility]ORATORYCLIA [id number] [place] [address] [place]#### 26847-9 ####[facility] LABIA [id number] [place] [address] [place] MCHC (RBC) [Mass/Vol] 34.0 g/dL Normal 30.5-36.0 [facility] Comment on above: Order Comment: Speci men Type: BLOOD SPECIMENOrdering Facility: [facility] Address: [address] [place] [address] Performed By: #### 5 8410-2 ####[facility] LABORATORYCLIA [id number] [address] [place]#### 66894-3 ####[facility] LABCLIA [id number] [place] [address] [place] MCV (RBC) [Entitic vol] 94.9 fL Normal 80.0-100.0 [facility] Comment on above: Order Comment: Speci men Type: BLOOD SPECIMENOrdering Facility: [facility] Address: [address] [place] [address] Performed By: #### 5 8410-2 ####[facility]ORATORYCLIA [id number] [place] [address] [place]#### 33826-6 ####[facility] LABCLIA [id number] [place] [address] [place] Nucleated RBC (Bld) [#/Vol] 10*3/uL Normal <0.01 [facility] Comment on above: Order Comment: Speci men Type: BLOOD SPECIMENOrdering Facility: [facility] Address: [address] [place] [address] Performed By: #### 5 8410-2 ####[facility]ORATORYCLIA [id number] [address] [place]#### 70604-8 ####[facility] LABCLIA [id number] [place] [address] [place] Platelet mean volume (Bld) [Entitic vol] 10.1 fL Normal 9.0-12.7 [facility] Comment on above: Order Comment: Speci men Type: BLOOD SPECIMENOrdering Facility: [facility] Address: [address] [place] [address] Performed By: #### 5 8410-2 ####[facility]ORATORYCLIA [id number] [place] [address] [place]#### 82862-4 ####[facility] LABCLIA [id number] [place] [address] [place] Platelets (Bld) [#/Vol] 155 10*3/uL Normal 150-400 [facility] Comment on above: Order Comment: Speci men Type: BLOOD SPECIMENOrdering Facility: [facility] Address: [address] [place] [address] Performed By: #### 5 8410-2 ####[facility] LABORATORYCLIA [id number] [place] [address] [place]#### 24745-4 ####[facility] LABCLIA [id number] [place] [address] [place] RBC (Bld) [#/Vol] 4.34 10*6/uL Normal 3.90-5.20 [facility] Comment on above: Order Comment: Speci men Type: BLOOD SPECIMENOrdering Facility: [facility] Address: [address] [place] [address] Performed By: #### 5 8410-2 ####[facility] LABORATORYCLIA [id number] [place] [address] [place]#### 42457-5 ####[facility] LABCLIA [id number] [place] [address] [place] WBC (Bld) [#/Vol] 9.00 10*3/uL Normal 3.70-11.00 [facility] Comment on above: Order Comment: Speci men Type: BLOOD SPECIMENOrdering Facility: [facility] Address: [address] [place] [address] Performed By: #### 5 8410-2 ####[facility] LABORATORYCLIA [id number] [place] [address] [place]#### 88289-0 ####[facility] LABCLIA [id number] [place] [address] [place] CK SerPl-cCncon 01-02-2025 CK [Catalytic activity/Vol] 80 U/L Normal 28-152 [facility] Comment on above: Order Comment: Speci men Type: BLOOD SPECIMENOrdering Facility: [facility] Address: [address] [place] [address] Performed By: #### 2 157-6 ####[facility] LABORATORYCLIA [id number] [place] [id number] [place] CONSULT PROGon 01-02-2025 CONSULT PROG Normal [facility] COPPER BLOODon 01-02-2025 Copper [Mass/Vol] 108 ug/dL Normal 80-155 [facility] Comment on above: Order Comment: Speci men Type: BLOOD SPECIMENOrdering Facility: [facility] Address: [address] [place] [address] Result Comment: This test was developed, and its performance characteristics determined by the [facility] Department of Pathology and Laboratory Medicine. It has not been cleared or approved by the FDA. The [facility] Department of Pathology and Laboratory Medicine is regulated under CLIA as qualified to perform high-complexity testing. This test is used for clinical purposes. It should not be regarded as investigational or for research. Performed By: #### C OPPER ####[facility] LABCLIA [id number] [place] [address] [place] CRP SerPl-mCncon 01-02-2025 CRP [Mass/Vol] 4.2 mg/dL High <1.0 [facility] Comment on above: Order Comment: Speci men Type: BLOOD SPECIMENOrdering Facility: [facility] Address: [address] [place] [address] Performed By: #### 2 4323-8, 1987-11 ####[facility] LABORATORYCLIA [id number] [place] [id number] [place] CSF MANUAL DIFFon 01-02-2025 DIF TTL, CSF Normal [facility] Comment on above: Order Comment: Speci men Type: CEREBROSPINAL FLUID SPECIMENOrdering Facility: [facility] Address: [address] [place] [address] Performed By: #### 3 4563-7, [id number], CCCSFR ####[facility] LABORATORYCLIA [id number] [place] [address] [place] LYMPH%, CSF Normal [facility] Comment on above: Order Comment: Speci men Type: CEREBROSPINAL FLUID SPECIMENOrdering Facility: [facility] Address: [address] [place] [address] Result Comment: Manu al differential not performed; less than 6 WBCs reported. Performed By: #### 3 4563-7, [id number], CCCSFR ####[facility] LABORATORYCLIA [id number] [place] [address] [place] MONO%, CSF Normal [facility] Comment on above: Order Comment: Speci men Type: CEREBROSPINAL FLUID SPECIMENOrdering Facility: [facility] Address: [address] [place] [address] Result Comment: Manu al differential not performed; less than 6 WBCs reported. Performed By: #### 3 4563-7, [id number], CCCSFR ####[facility] LABORATORYCLIA [id number] [place] [address] [place] NEUT%, CSF Normal [facility] Comment on above: Order Comment: Speci men Type: CEREBROSPINAL FLUID SPECIMENOrdering Facility: [facility] Address: [address] [place] [address] Result Comment: Manu al differential not performed; less than 6 WBCs reported. Performed By: #### 3 4563-7, [id number], CCCSFR ####[facility] LABORATORYCLIA [id number] [address] [place] CSF PATHOLOGIST INTERPRETATI ONon 01-02-2025 CSF STAFF REVIEW No pathologic abnorm alities. Very rare lymphocytes present. Normal [facility] Comment on above: Order Comment: Speci men Type: CEREBROSPINAL FLUID SPECIMENOrdering Facility: [facility] Address: [address] [place] [address] Performed By: #### 3 4563-7, [id number], CCCSFR ####[facility] LABORATORYCLIA [id number] [place] [id number] [facility] [place] Pathologist name Reviewed by Roamna Mesa MD [facility] Comment on above: Order Comment: Speci men Type: CEREBROSPINAL FLUID SPECIMENOrdering Facility: [facility] Address: [address] [place] [address] Performed By: #### 3 4563-7, [id number], CCCSFR ####[facility] LABORATORYCLIA [id number] [place] [address] [place] CYTOLOGY NON-GYNon AP DISCLAIMER [facility] Comment on above: Order Comment: Speci men Type: CEREBROSPINAL FLUID SPECIMENOrdering Facility: [facility] Address: [address] [place] [address] Result Comment: Felicia casillas Developed Test (LDT) Disclaimer:Performance characteristics of immunohistochemical, immunofluorescent, and chromogenic in-situ hybridization tests have been determined by the performing laboratory within [facility]'s [facility] Pathology and Laboratory Medicine Department ([facility], [facility], [facility], [facility], [facility], [facility], or [facility]) in a manner consistent with CLIA requirements. One or more of these tests may not have been cleared or approved by the FDA. [facility] is regulated under CLIA as qualified to perform high-complexity testing. These tests are used for clinical purposes. These should not be regarded as investigational or for research. Positive and negative controls stain appropriately. Performed By: #### C YTONON ####[facility] LABORATORYCLIA [id number] [place] [id number] [place] CASE REPORT [facility] Comment on above: Order Comment: Speci men Type: CEREBROSPINAL FLUID SPECIMENOrdering Facility: [facility] Address: [address] [place] [address] Result Comment: [facility] Cytology Report Case: [id number] Provider: Diana Patton APRN.SUPERINTENDENT PIER Collected: 01/02/2025 02:31 PMOrdering Location: [facility] Received: 01/03/2025 08:23 AMPathologist: Romana Mesa MDSpecimen: CSF, Lumbar Puncture Performed By: #### C YTONON ####[facility] LABORATORYCLIA [id number] [address] CLINICAL HISTORY Normal [facility] Comment on above: Order Comment: Speci men Type: CEREBROSPINAL FLUID SPECIMENOrdering Facility: [facility] Address: [address] [place] [address] Result Comment: Pre- op diagnosis:Altered mental status, unspecified altered mental status type [R41.82] Performed By: #### C YTONON ####[facility] LABORATORYCLIA [id number] [address] DIAGNOSIS COMMENT Hypocellular specime n, rare lymphocytes are present. Normal [facility] Comment on above: Order Comment: Speci men Type: CEREBROSPINAL FLUID SPECIMENOrdering Facility: [facility] Address: [address] [place] [address] Performed By: #### C YTONON ####[facility] LABORATORYCLIA [id number] [address] FINAL DIAGNOSIS Normal [facility] Comment on above: Order Comment: Speci men Type: CEREBROSPINAL FLUID SPECIMENOrdering Facility: [facility] Address: [address] [place] [address] Result Comment: A - CSF, Lumbar Puncture: - Negative for malignant cells. at 1151 EDT Performed By: #### C YTONON ####[facility] LABORATORYCLIA [id number] [address] FINAL PERFORMING LAB Normal [facility] Comment on above: Order Comment: Speci men Type: CEREBROSPINAL FLUID SPECIMENOrdering Facility: [facility] Address: [address] [place] [address] Result Comment: Tech nical component, station supervisor screening performed at: [facility], [address] [place] [address] CLIA: [id number] interpretation performed at: [facility], [address] [place] [address] CLIA# [id number] Director: Romana Mesa MD Performed By: #### C YTONON ####[facility] LABORATORYCLIA [id number] [address] GROSS DESCRIPTION Normal [facility] Comment on above: Order Comment: Speci men Type: CEREBROSPINAL FLUID SPECIMENOrdering Facility: [facility] Address: [address] [place] [address] Result Comment: A. C SF, Lumbar Puncture2 cc clear colorless fluid with scant particles. 2 Cytospin prepared. Performed By: #### C YTONON ####[facility] LABORATORYCLIA [id number] [address] ORDER COMMENT Normal [facility] Comment on above: Order Comment: Speci men Type: CEREBROSPINAL FLUID SPECIMENOrdering Facility: [facility] Address: [address] [place] [address] Result Comment: Pre- op diagnosis:Altered mental status, unspecified altered mental status type [R41.82] Performed By: #### C YTONON ####[facility] LABORATORYCLIA [id number] [address] Cell count panel (CSF)on Clarity (CSF) Clear Normal Clear [facility] Comment on above: Order Comment: Speci men Type: CEREBROSPINAL FLUID SPECIMENOrdering Facility: [facility] Address: [address] [place] [address] Performed By: #### 3 4563-7, [id number], CCCSFR ####[facility] LABORATORYCLIA [id number] [address] Clarity (Unsp spec) Not Indicated Normal Clear [facility] Comment on above: Order Comment: Speci men Type: CEREBROSPINAL FLUID SPECIMENOrdering Facility: [facility] Address: [address] [place] [address] Performed By: #### 3 4563-7, [id number], CCCSFR ####[facility] LABORATORYCLIA [id number] [address] Color (CSF) Colorless Normal Colorless [facility] Comment on above: Order Comment: Speci men Type: CEREBROSPINAL FLUID SPECIMENOrdering Facility: [facility] Address: [address] [place], [place] [id number] Performed By: #### 3 4563-7, [id number], CCCSFR ####[facility] LABORATORYCLIA [id number] [address] [facility] Color (Spun CSF) Not Indicated Normal Colorless [facility] Comment on above: Order Comment: Speci men Type: CEREBROSPINAL FLUID SPECIMENOrdering Facility: [facility] Address: [address] [place] [address] Performed By: #### 3 4563-7, [id number], CCCSFR ####[facility] LABORATORYCLIA [id number] [address] CSF TUBE NUMBER Tube 4 Normal [facility] Comment on above: Order Comment: Speci men Type: CEREBROSPINAL FLUID SPECIMENOrdering Facility: [facility] Address: [address] [place], [place] [address] Performed By: #### 3 4563-7, [id number], CCCSFR ####[facility] LABORATORYCLIA [id number] [address] [facility] RBC Manual cnt (CSF) [#/Vol] 0 cells/uL Normal 0-[address] [place] [address] Comment on above: Order Comment: Speci men Type: CEREBROSPINAL FLUID SPECIMENOrdering Facility: [facility] Address: [address] [id number] Performed By: #### 3 4563-7, [id number], CCCSFR ####[facility] LABORATORYCLIA [id number] [address] WBC Manual cnt (CSF) [#/Vol] 1 cells/uL Normal 0-5 [facility] Comment on above: Order Comment: Speci men Type: CEREBROSPINAL FLUID SPECIMENOrdering Facility: [facility] Address: [address] [place] [address] Performed By: #### 3 4563-7, [id number], [facility]ERSFR ####[facility] LABORATORYCLIA [id number] [place] [id number] [place] Ceruloplasmin SerPl-mCncon 0 01-02-2025 Ceruloplasmin [Mass/Vol] 27 mg/dL Normal 16-45 [facility] Comment on above: Order Comment: Speci men Type: BLOOD SPECIMENOrdering Facility: [facility] Address: [address] [place] [address] Performed By: #### 2 064-4 ####[facility] LABCLIA [id number] [address] OF [facility] Comprehensive metabolic 2000 panelon 01-02-2025 Albumin [Mass/Vol] 2.6 g/dL Low 3.2-5.0 [facility] Comment on above: Order Comment: Speci men Type: BLOOD SPECIMENOrdering Facility: [facility] Address: [address] [place] [address] Performed By: #### 2 4323-8 ####[facility] LABORATORYCLIA [id number] [place] [address] [place] ALP [Catalytic activity/Vol] 54 U/L Normal 45-117 [facility] Comment on above: Order Comment: Speci men Type: BLOOD SPECIMENOrdering Facility: [facility] Address: [address] [place] [address] Performed By: #### 2 4323-8 ####[facility]ORATORYCLIA [id number] [place] [address] [place] ALT [Catalytic activity/Vol] 12 U/L Low 13-61 [facility] Comment on above: Order Comment: Speci men Type: BLOOD SPECIMENOrdering Facility: [facility] Address: [address] [place] [address] Result Comment: Resu lts may be falsely depressed after the administration of Sulfasalazine and/or Sulfapyridine. Performed By: #### 2 4323-8 ####[facility]ORATORYCLIA [id number] [place] [id number] [place] Anion gap [Moles/Vol] 6 mmol/L Normal 5-16 [facility] Comment on above: Order Comment: Speci men Type: BLOOD SPECIMENOrdering Facility: [facility] Address: [address] [place] [address] Performed By: #### 2 4323-8 ####[facility]ORATORYCLIA [id number] [place] [address] [place] AST [Catalytic activity/Vol] 16 U/L Normal 8-34 [facility] Comment on above: Order Comment: Speci men Type: BLOOD SPECIMENOrdering Facility: [facility] Address: [address] [place] [address] Result Comment: Resu lts may be falsely depressed after the administration of Sulfasalazine and/or Sulfapyridine. Performed By: #### 2 4323-8 ####[facility]ORATORYCLIA [id number] [place] [address] [place] Bilirubin [Mass/Vol] 0.4 mg/dL Normal 0.2-1.0 [facility] Comment on above: Order Comment: Speci men Type: BLOOD SPECIMENOrdering Facility: [facility] Address: [address] [place] [address] Performed By: #### 2 4323-8 ####[facility]ORATORYCLIA [id number] [place] [id number] [place] Calcium [Mass/Vol] 8.8 mg/dL Normal 8.5-10.5 [facility] Comment on above: Order Comment: Speci men Type: BLOOD SPECIMENOrdering Facility: [facility] Address: [address] [place] [address] Performed By: #### 2 4323-8 ####[facility]ORATORYCLIA [id number] [place] [id number] [place] Chloride [Moles/Vol] 104 mmol/L Normal 98-107 [facility] Comment on above: Order Comment: Speci men Type: BLOOD SPECIMENOrdering Facility: [facility] Address: [address] [place] [address] Performed By: #### 2 4323-8 ####[facility]ORATORYCLIA [id number] [place] [id number] [place] CO2 [Moles/Vol] 25 mmol/L Normal 21-32 [facility] Comment on above: Order Comment: Speci men Type: BLOOD SPECIMENOrdering Facility: [facility] Address: [address] [place] [address] Performed By: #### 2 4323-8 ####[facility] LABORATORYCLIA [id number] [place] [address] [place] Creatinine [Mass/Vol] 0.48 mg/dL Low 0.51-0.95 [facility] Comment on above: Order Comment: Speci men Type: BLOOD SPECIMENOrdering Facility: [facility] Address: [address] [place] [address] Result Comment: Marilin ents receiving either N-Acetylcysteine (NAC) or Metamizole prior to venipuncture, may have falsely depressed results. Performed By: #### 2 4323-8 ####[facility]ORATORYCLIA [id number] [place] [address] [facility] [place] Creatinine and Glomerular filtration rate.predicted panel (S/P/Bld) 118 mL/min/1.73m??? Normal >=60 [facility] Comment on above: Order Comment: Speci men Type: BLOOD SPECIMENOrdering Facility: [facility] Address: [address] [place] [address] Result Comment: Chrissy mated Glomerular Filtration Rate [...] actual GFR. Performed By: #### 2 4323-8 ####[facility]ORATORYCLIA [id number] [place] [id number] [place] Glucose [Mass/Vol] 117 mg/dL High 70-100 [facility] Comment on above: Order Comment: Speci men Type: BLOOD SPECIMENOrdering Facility: [facility] Address: [address] [place], [place] [address] Result Comment: The [place] Diabetes Association (ADA) provides guidance for cutoff [...] Standards of Medical Care in Diabetes 2016, [place] Diabetes Association. Diabetes Care. 2016.39(Suppl 1).Results may be falsely elevated after the administration of Sulfapyridine.Results may be falsely depressed after the administration of Sulfasalazine. Performed By: #### 2 4323-8 ####[facility]ORATORYCLIA [id number] [place] [address] [place] Potassium [Moles/Vol] 3.8 mmol/L Normal 3.5-5.1 [facility] Comment on above: Order Comment: Speci men Type: BLOOD SPECIMENOrdering Facility: [facility] Address: [address] [place] [address] Performed By: #### 2 4323-8 ####[facility]ORATORYCLIA [id number] [place] [address] [place] Protein [Mass/Vol] 6.0 g/dL Normal 6.0-8.5 [facility] Comment on above: Order Comment: Speci men Type: BLOOD SPECIMENOrdering Facility: [facility] Address: [address] [place] [address] Performed By: #### 2 4323-8 ####[facility]ORATORYCLIA [id number] [place] [id number] [place] Sodium [Moles/Vol] 135 mmol/L Low 136-145 [facility] Comment on above: Order Comment: Speci men Type: BLOOD SPECIMENOrdering Facility: [facility] Address: [address] [place] [address] Performed By: #### 2 4323-8 ####[facility]ORATORYCLIA [id number] [place] [id number] [place] Urea nitrogen [Mass/Vol] 8 mg/dL Normal 7-26 [facility] Comment on above: Order Comment: Speci men Type: BLOOD SPECIMENOrdering Facility: [facility] Address: [address] [place] [address] Performed By: #### 2 4323-8 ####[facility]ORATORYCLIA [id number] [place] [address] [place] Albumin [Mass/Vol] 2.7 g/dL Low 3.2-5.0 [facility] Comment on above: Order Comment: Speci men Type: BLOOD SPECIMENOrdering Facility: [facility] Address: [address] [place] [address] Performed By: #### 2 4323-8, 1987-11 ####[facility]ORATORYCLIA [id number] [place] [id number] [place] ALP [Catalytic activity/Vol] 55 U/L Normal 45-117 [facility] Comment on above: Order Comment: Speci men Type: BLOOD SPECIMENOrdering Facility: [facility] Address: [address] [place] [address] Performed By: #### 2 4323-8, 1987-11 ####[facility]ORATORYCLIA [id number] [place] [id number] [place] ALT [Catalytic activity/Vol] 11 U/L Low 13-61 [facility] Comment on above: Order Comment: Speci men Type: BLOOD SPECIMENOrdering Facility: [facility] Address: [address] [place] [address] Result Comment: Resu lts may be falsely depressed after the administration of Sulfasalazine and/or Sulfapyridine. Performed By: #### 2 43238, 1987-11 ####[facility]ORATORYCLIA [id number] [place] [address] [place] Anion gap [Moles/Vol] 8 mmol/L Normal 5-16 [facility] Comment on above: Order Comment: Speci men Type: BLOOD SPECIMENOrdering Facility: [facility] Address: [address] [place] [address] Performed By: #### 2 4328, 1987-11 ####[facility]ORATORYCLIA [id number] [place] [address] [place] AST [Catalytic activity/Vol] 18 U/L Normal 8-34 [facility] Comment on above: Order Comment: Speci men Type: BLOOD SPECIMENOrdering Facility: [facility] Address: [address] [place] [address] Result Comment: Resu lts may be falsely depressed after the administration of Sulfasalazine and/or Sulfapyridine. Performed By: #### 2 43238, 1987-11 ####[facility]ORATORYCLIA [id number] [place] [address] [place] Bilirubin [Mass/Vol] 0.5 mg/dL Normal 0.2-1.0 [facility] Comment on above: Order Comment: Speci men Type: BLOOD SPECIMENOrdering Facility: [facility] Address: [address] [place], [place] [address] Performed By: #### 2 43238, 1987-11 ####[facility]ORATORYCLIA [id number] [place] [id number] [place] Calcium [Mass/Vol] 9.2 mg/dL Normal 8.5-10.5 [facility] Comment on above: Order Comment: Speci men Type: BLOOD SPECIMENOrdering Facility: [facility] Address: [address] [place] [address] Performed By: #### 2 43238, 1987-11 ####[facility]ORATORYCLIA [id number] [place] [address] [place] Chloride [Moles/Vol] 105 mmol/L Normal 98-107 [facility] Comment on above: Order Comment: Speci men Type: BLOOD SPECIMENOrdering Facility: [facility] Address: [address] [place] [address] Performed By: #### 2 4328, 1987-11 ####[facility]ORATORYCLIA [id number] [place] [address] [place] CO2 [Moles/Vol] 24 mmol/L Normal 21-32 [facility] Comment on above: Order Comment: Speci men Type: BLOOD SPECIMENOrdering Facility: [facility] Address: [address] [place] [address] Performed By: #### 2 43238, 1987-11 ####[facility]ORATORYCLIA [id number] [address] [place] Creatinine [Mass/Vol] 0.45 mg/dL Low 0.51-0.95 [facility] Comment on above: Order Comment: Speci men Type: BLOOD SPECIMENOrdering Facility: [facility] Address: [address] [place] [address] Result Comment: Marilin ents receiving either N-Acetylcysteine (NAC) or Metamizole prior to venipuncture, may have falsely depressed results. Performed By: #### 2 43238, 1987-11 ####[facility]ORATORYCLIA [id number] [address] [place] Creatinine and Glomerular filtration rate.predicted panel (S/P/Bld) 120 mL/min/1.73m??? Normal >=60 [facility] Comment on above: Order Comment: Speci men Type: BLOOD SPECIMENOrdering Facility: [facility] Address: [address] [place] [address] Result Comment: Chrissy mated Glomerular Filtration Rate [...] GFR. Performed By: #### 2 43209-22, 1987-11 ####[facility] LABORATORYCLIA [id number] [place] [address] [place] Glucose [Mass/Vol] 122 mg/dL High 70-100 [facility] Comment on above: Order Comment: Syd ramos Type: BLOOD SPECIMENOrdering Facility: [facility] Address: [address] [place] [address] Result Comment: The [place] Diabetes Association (ADA) provides guidance for cutoff [...] Standards of Medical Care in Diabetes 2016, [place] Diabetes Association. Diabetes Care. 2016.39(Suppl 1).Results may be falsely elevated after the administration of Sulfapyridine.Results may be falsely depressed after the administration of Sulfasalazine. Performed By: #### 2 4323-02, 1987-11 ####[facility] LABORATORYCLIA [id number] [place] [id number] [place] Potassium [Moles/Vol] 3.9 mmol/L Normal 3.5-5.1 [facility] Comment on above: Order Comment: Syd ramos Type: BLOOD SPECIMENOrdering Facility: [facility] Address: [address] [place] [address] Performed By: #### 2 43209-22, 1987-11 ####[facility] LABORATORYCLIA [id number] [place] [id number] [place] Protein [Mass/Vol] 5.9 g/dL Low 6.0-8.5 [facility] Comment on above: Order Comment: Irmai men Type: BLOOD SPECIMENOrdering Facility: [facility] Address: [address] [place] [address] Performed By: #### 2 43238, 1987-11 ####[facility] LABORATORYCLIA [id number] [place] [id number] [place] Sodium [Moles/Vol] 137 mmol/L Normal 136-145 [facility] Comment on above: Order Comment: Irmai richard Type: BLOOD SPECIMENOrdering Facility: [facility] Address: [address] [place] [address] Performed By: #### 2 43209-22, 1987-11 ####[facility] LABORATORYCLIA [id number] [place] [id number] [place] Urea nitrogen [Mass/Vol] 8 mg/dL Normal 7-26 [facility] Comment on above: Order Comment: Speci men Type: BLOOD SPECIMENOrdering Facility: [facility] Address: [address] [place] [address] Performed By: #### 2 4328, 1987-11 ####[facility] LABORATORYCLIA [id number] [place] [id number] [place] Glucose CSF-mCncon 01-02- 5 Glucose (CSF) [Mass/Vol] 88 mg/dL High 40-70 [facility] Comment on above: Order Comment: Speci men Type: CEREBROSPINAL FLUID SPECIMENOrdering Facility: [facility] Address: [address] [place] [address] Result Comment: Lumb ar CSF glucose values of healthy patients are approximately 60% of the plasma values and must always be compared with a concurrently measured plasma value for adequate clinical interpretation.References: 1. Glucose HK (GLUC3) [package insert V 12.0 [place]]. [employer], [place], [place]. November 2015. 2. Christiano HDelvin, Gosia, H. (2015). Chapter 7: Glucose and Lactate. FDelvin Quiros al.(eds.), Cerebrospinal Fluid in Clinical Neurology. [place]: [employer]. Performed By: #### 2 342-4, 2880-3 ####[facility] LABORATORYCLIA [id number] [address] [place] HbA1c (Bld)on 01-02-2025 Average glucose Estimated from glycated hemoglobin (Bld) [Mass/Vol] 80 mg/dL Normal [facility] Comment on above: Order Comment: Syd ramos Type: BLOOD SPECIMENOrdering Facility: [facility] Address: [address] [place] [address] Result Comment: eAG: (Estimated average glucose) is a calculated value from HgbA1c and is billing representative of the average blood glucose level in the last 2-3 month period. Performed By: #### 5 8410-2 ####[facility]ENTERCLIA [id number] [address]#### 11199-0 ####[facility] LABIA [id number] [address] [place] HbA1c (Bld) [Mass fraction] 4.4 % Normal 4.3-5.6 [facility] Comment on above: Order Comment: ySd ramos Type: BLOOD SPECIMENOrdering Facility: [facility] Address: [address] [place] [address] Result Comment: Amer [place] Diabetes Association guidelines indicate that patients with HgbA1c in the range 5.7-6.4% are at increased risk for development of diabetes, and intervention by lifestyle modification may be beneficial. HgbA1c greater or equal to 6.5% is considered diagnostic of diabetes. Performed By: #### 5 8410-2 ####[facility] LABORATORYCLIA [id number] [address] [place]#### [address]-3 ####[facility] LABIA [id number] [address] [place] Meningitis+Encephalitis path ogens DNA and RNA panel MACIE+non-probe (CSF)on 01-02-2025 C. gattii+neoformans DNA MACIE+non-probe Ql (CSF) Not detected Normal Not detected [facility] Comment on above: Order Comment: Speci men Type: CEREBROSPINAL FLUID SPECIMENOrdering Facility: [facility] Address: [address] [place] [address] Performed By: #### 8 2180-1 ####[facility]ORATORYCLIA [id number] [address] [place] CMV DNA MACIE+non-probe Ql (CSF) Not detected Normal Not detected [facility] Comment on above: Order Comment: Speci men Type: CEREBROSPINAL FLUID SPECIMENOrdering Facility: [facility] Address: [address] [place] [address] Performed By: #### 8 218-1 ####[facility]ORATORYCLIA [id number] [address] [place] E. coli K1 DNA MACIE+non-probe Ql (CSF) Not detected Normal Not detected [facility] Comment on above: Order Comment: Speci men Type: CEREBROSPINAL FLUID SPECIMENOrdering Facility: [facility] Address: [address] [place] [address] Performed By: #### 8 2180-1 ####[facility]ORATORYCLIA [id number] [address] [place] Enterovirus RNA MACIE+non-probe Ql (CSF) Not detected Normal Not detected [facility] Comment on above: Order Comment: Speci men Type: CEREBROSPINAL FLUID SPECIMENOrdering Facility: [facility] Address: [address] [place] [address] Performed By: #### 8 2180-1 ####[facility]ORATORYCLIA [id number] [address] OF [place] H. influenzae DNA MACIE+non-probe Ql (CSF) Not detected Normal Not detected [facility] Comment on above: Order Comment: Speci men Type: CEREBROSPINAL FLUID SPECIMENOrdering Facility: [facility] Address: [address] [place] [address] Performed By: #### 8 2180-1 ####[facility]ORATORYCLIA [id number] [place] [address] [place] HHV 6 DNA MACIE+non-probe Ql (CSF) Not detected Normal Not detected [facility] Comment on above: Order Comment: Speci men Type: CEREBROSPINAL FLUID SPECIMENOrdering Facility: [facility] Address: [address] [place] [address] Performed By: #### 8 2180-1 ####[facility]ORATORYCLIA [id number] [place] [address] [place] HSV 1 DNA MACIE+non-probe Ql (CSF) Not detected Normal Not detected [facility] Comment on above: Order Comment: Speci men Type: CEREBROSPINAL FLUID SPECIMENOrdering Facility: [facility] Address: [address] [place] [address] Performed By: #### 8 2180-1 ####[facility]ORATORYCLIA [id number] [place] [address] [place] HSV 2 DNA MACIE+non-probe Ql (CSF) Not detected Normal Not detected [facility] Comment on above: Order Comment: Speci men Type: CEREBROSPINAL FLUID SPECIMENOrdering Facility: [facility] Address: [address] [place] [address] Performed By: #### 8 2180-1 ####[facility]ORATORYCLIA [id number] [place] [address] [place] L. monocytogenes DNA MACIE+non-probe Ql (CSF) Not detected Normal Not detected [facility] Comment on above: Order Comment: Speci men Type: CEREBROSPINAL FLUID SPECIMENOrdering Facility: [facility] Address: [address] [place] [address] Performed By: #### 8 2180-1 ####[facility]ORATORYCLIA [id number] [place] [address] [place] N. meningitidis DNA MACIE+non-probe Ql (CSF) Not detected Normal Not detected [facility] Comment on above: Order Comment: Speci men Type: CEREBROSPINAL FLUID SPECIMENOrdering Facility: [facility] Address: [address] [place] [address] Performed By: #### 8 2180-1 ####[facility] LABORATORYCLIA [id number] [address] [place] Parechovirus A RNA MACIE+non-probe Ql (CSF) Not detected Normal Not detected [facility] Comment on above: Order Comment: Speci men Type: CEREBROSPINAL FLUID SPECIMENOrdering Facility: [facility] Address: [address] [place] [address] Performed By: #### 8 2180-1 ####[facility]ORATORYCLIA [id number] [address] [place] S. agalactiae DNA MACIE+non-probe Ql (CSF) Not detected Normal Not detected [facility] Comment on above: Order Comment: Speci men Type: CEREBROSPINAL FLUID SPECIMENOrdering Facility: [facility] Address: [address] [place] [address] Performed By: #### 8 2180-1 ####[facility] LABORATORYCLIA [id number] [address] [place] S. pneumoniae DNA MACIE+non-probe Ql (CSF) Not detected Normal Not detected [facility] Comment on above: Order Comment: Speci men Type: CEREBROSPINAL FLUID SPECIMENOrdering Facility: [facility] Address: [address] [place] [address] Performed By: #### 8 2180-1 ####[facility] LABORATORYCLIA [id number] [place] [address] [place] VZV DNA MACIE+non-probe Ql (CSF) Not detected Normal Not detected [facility] Comment on above: Order Comment: Speci men Type: CEREBROSPINAL FLUID SPECIMENOrdering Facility: [facility] Address: [address] [place] [address] Performed By: #### 8 2180-1 ####[facility] LABORATORYCLIA [id number] [place] [address] [place] NURSING PROGon 01-02-2025 NURSING PROG Normal [facility] PT panel Coag (PPP)on 2024 INR Coag (PPP) [Relative time] 1.1 {INR} Normal 0.9-1.3 [facility] Comment on above: Order Comment: Syd ramos Type: BLOOD SPECIMENOrdering Facility: [facility] Address: [address] [place] [address] Result Comment: Leyda min K Antagonist (VKA) Therapeutic Range: INR 2 to 3 (Target INR of 2.5)Note: For patients treated with VKA drugs, such as warfarin, the [place] [employer] 2012 Guideline recommends [...] al. Chest 2012, 141:7S-47SNishimshannen RA, et al. [facility] 2017, 70: 252-289 Performed By: #### 3 4528-0, 83389-0 ####[facility] LABORATORYCLIA [id number] [place] [address] [place] PT Coag (PPP) [Time] 12.1 s Normal 9.7-13.0 [facility] Comment on above: Order Comment: Syd ramos Type: BLOOD SPECIMENOrdering Facility: [facility] Address: [address] [place] [address] Performed By: #### 3 4528-0, 67857-8 ####[facility] LABORATORYCLIA [id number] [place] [address] [place] Prot CSF-mCncon 01-02-2025 Protein (CSF) [Mass/Vol] 21 mg/dL Normal 15-45 [facility] Comment on above: Order Comment: Syd ramos Type: CEREBROSPINAL FLUID SPECIMENOrdering Facility: [facility] Address: [address] [place] [address] Result Comment: Samp les containing Amikacin, Gentamicin, Kanamycin, Tobramycin, and Neomycin Sulfate may cause falsely increased [employer] UCFP assay results. Performed By: #### 2 342-4, 2880-3 ####[facility] LABORATORYCLIA [id number] [place] [id number] [place] VITAMIN B1 (THIAMINE), WHOLE BLOODon 01-02-2025 Thiamine (Bld) [Moles/Vol] 249.3 nmol/L High 84.3-213.3 [facility] Comment on above: Order Comment: Speci men Type: BLOOD SPECIMENOrdering Facility: [facility] Address: [address] [place] [address] Result Comment: This assay measures the concentration of thiamine diphosphate (TDP), the primary active form of vitamin B1. Approximately 90 percent of vitamin B1 present in whole blood is TDP. Thiamine and thiamine monophosphate, which comprise the remaining 10 percent, are not measured.This test was developed, and its performance characteristics determined by the [facility] Department of Pathology and Laboratory Medicine. It has not been cleared or approved by the FDA. The [facility] Department of Pathology and Laboratory Medicine is regulated under CLIA as qualified to perform high-complexity testing. This test is used for clinical purposes. It should not be regarded as investigational or for research. Performed By: #### B 1WB ####[facility] LABCLIA [id number] [place] [id number] [place] XR LUMBAR PUNCTURE DIAGNOSTI Con 01-02-2025 XR LUMBAR PUNCTURE DIAGNOSTIC Normal [facility] aPTT PPPon 01-02-2025 aPTT Coag (PPP) [Time] 32.1 s Normal 23.0-32.4 [facility] Comment on above: Order Comment: Speci men Type: BLOOD SPECIMENOrdering Facility: [facility] Address: [address] [place] [address] Performed By: #### 3 4528-0, 17656-1 ####[facility] LABORATORYCLIA [id number] [place] [id number] [place] ANES POSTPROC EVALon 025 ANES POSTPROC EVAL Normal [facility] ANES PRE-OPon 01-01-2025 ANES PRE-OP Normal [facility] CBC panel Auto (Bld)on 01-01 Erythrocyte distribution width (RBC) [Ratio] 12.2 % Normal 11.5-15.0 [facility] Comment on above: Order Comment: Speci men Type: BLOOD SPECIMENOrdering Facility: [facility] Address: [address] [place] [address] Performed By: #### 5 8410-2 ####[facility] LABORATORYCLIA [id number] [address] [place] Hematocrit (Bld) [Volume fraction] 40.1 % Normal 36.0-46.0 [facility] Comment on above: Order Comment: Speci men Type: BLOOD SPECIMENOrdering Facility: [facility] Address: [address] [place] [address] Performed By: #### 5 8410-2 ####[facility] LABORATORYCLIA [id number] [address] [place] Hemoglobin (Bld) [Mass/Vol] 13.6 g/dL Normal 11.5-15.5 [facility] Comment on above: Order Comment: Speci men Type: BLOOD SPECIMENOrdering Facility: [facility] Address: [address] [place] [address] Performed By: #### 5 8410-2 ####[facility] LABORATORYCLIA [id number] [place] [address] [place] MCH (RBC) [Entitic mass] 32.0 pg Normal 26.0-34.0 [facility] Comment on above: Order Comment: Speci men Type: BLOOD SPECIMENOrdering Facility: [facility] Address: [address] [place] [address] Performed By: #### 5 8410-2 ####[facility] LABORATORYCLIA [id number] [place] [address] [place] MCHC (RBC) [Mass/Vol] 33.9 g/dL Normal 30.5-36.0 [facility] Comment on above: Order Comment: Speci men Type: BLOOD SPECIMENOrdering Facility: [facility] Address: [address] [place] [address] Performed By: #### 5 8410-2 ####[facility] LABORATORYCLIA [id number] [place] [address] [place] MCV (RBC) [Entitic vol] 94.4 fL Normal 80.0-100.0 [facility] Comment on above: Order Comment: Speci men Type: BLOOD SPECIMENOrdering Facility: [facility] Address: [address] [place] [address] Performed By: #### 5 8410-2 ####[facility] LABORATORYCLIA [id number] [place] [address] [place] Nucleated RBC (Bld) [#/Vol] 10*3/uL Normal <0.01 [facility] Comment on above: Order Comment: Speci men Type: BLOOD SPECIMENOrdering Facility: [facility] Address: [address] [place] [address] Performed By: #### 5 8410-2 ####[facility] LABORATORYCLIA [id number] [place] [address] [place] Platelet mean volume (Bld) [Entitic vol] 10.2 fL Normal 9.0-12.7 [facility] Comment on above: Order Comment: Speci men Type: BLOOD SPECIMENOrdering Facility: [facility] Address: [address] [place] [address] Performed By: #### 5 8410-2 ####[facility] LABORATORYCLIA [id number] [place] [address] [place] Platelets (Bld) [#/Vol] 161 10*3/uL Normal 150-400 [facility] Comment on above: Order Comment: Speci men Type: BLOOD SPECIMENOrdering Facility: [facility] Address: [address] [place] [address] Performed By: #### 5 8410-2 ####[facility] LABORATORYCLIA [id number] [address] OF [facility] RBC (Bld) [#/Vol] 4.25 10*6/uL Normal 3.90-5.20 [facility] Comment on above: Order Comment: Speci men Type: BLOOD SPECIMENOrdering Facility: [facility] Address: [address] [place] [address] Performed By: #### 5 8410-2 ####[facility] LABORATORYCLIA [id number] [address] WBC (Bld) [#/Vol] 7.44 10*3/uL Normal 3.70-11.00 [facility] Comment on above: Order Comment: Speci men Type: BLOOD SPECIMENOrdering Facility: [facility] Address: [address] [place] [address] Performed By: #### 5 8410-2 ####[facility] LABORATORYCLIA [id number] [address] Comprehensive metabolic 2000 panelon 01-01-2025 Albumin [Mass/Vol] 2.7 g/dL Low 3.2-5.0 [facility] Comment on above: Order Comment: Speci men Type: BLOOD SPECIMENOrdering Facility: [facility] Address: [address] [place] [address] Performed By: #### 2 4323-8 ####[facility] LABORATORYCLIA [id number] [address] ALP [Catalytic activity/Vol] 54 U/L Normal 45-117 [facility] Comment on above: Order Comment: Speci men Type: BLOOD SPECIMENOrdering Facility: [facility] Address: [address] [place] [address] Performed By: #### 2 4323-8 ####[facility] LABORATORYCLIA [id number] [address] ALT [Catalytic activity/Vol] 12 U/L Low 13-61 [facility] Comment on above: Order Comment: Speci men Type: BLOOD SPECIMENOrdering Facility: [facility] Address: [address] [place] [address] Result Comment: Resu lts may be falsely depressed after the administration of Sulfasalazine and/or Sulfapyridine. Performed By: #### 2 4323-8 ####[facility] LABORATORYCLIA [id number] [place] [id number] [place] Anion gap [Moles/Vol] 9 mmol/L Normal 5-16 [facility] Comment on above: Order Comment: Speci men Type: BLOOD SPECIMENOrdering Facility: [facility] Address: [address] [place] [address] Performed By: #### 2 4323-8 ####[facility]ORATORYCLIA [id number] [place] [id number] [place] AST [Catalytic activity/Vol] 19 U/L Normal 8-34 [facility] Comment on above: Order Comment: Speci men Type: BLOOD SPECIMENOrdering Facility: [facility] Address: [address] [place] [address] Result Comment: Resu lts may be falsely depressed after the administration of Sulfasalazine and/or Sulfapyridine. Performed By: #### 2 4323-8 ####[facility]ORATORYCLIA [id number] [place] [address] [place] Bilirubin [Mass/Vol] 0.6 mg/dL Normal 0.2-1.0 [facility] Comment on above: Order Comment: Speci men Type: BLOOD SPECIMENOrdering Facility: [facility] Address: [address] [place] [address] Performed By: #### 2 4323-8 ####[facility] LABORATORYCLIA [id number] [place] [id number] [place] Calcium [Mass/Vol] 8.8 mg/dL Normal 8.5-10.5 [facility] Comment on above: Order Comment: Speci men Type: BLOOD SPECIMENOrdering Facility: [facility] Address: [address] [place] [address] Performed By: #### 2 4323-8 ####[facility] LABORATORYCLIA [id number] [place] [address] [place] Chloride [Moles/Vol] 106 mmol/L Normal 98-107 [facility] Comment on above: Order Comment: Speci men Type: BLOOD SPECIMENOrdering Facility: [facility] Address: [address] [place] [address] Performed By: #### 2 4323-8 ####[facility] LABORATORYCLIA [id number] [place] [address] [place] CO2 [Moles/Vol] 22 mmol/L Normal 21-32 [facility] Comment on above: Order Comment: Speci men Type: BLOOD SPECIMENOrdering Facility: [facility] Address: [address] [place] [address] Performed By: #### 2 4323-8 ####[facility]ORATORYCLIA [id number] [place] [address] [place] Creatinine [Mass/Vol] 0.47 mg/dL Low 0.51-0.95 [facility] Comment on above: Order Comment: Speci men Type: BLOOD SPECIMENOrdering Facility: [facility] Address: [address] [place] [address] Result Comment: Marilin ents receiving either N-Acetylcysteine (NAC) or Metamizole prior to venipuncture, may have falsely depressed results. Performed By: #### 2 4323-8 ####[facility] LABORATORYCLIA [id number] [address] OF [facility] Creatinine and Glomerular filtration rate.predicted panel (S/P/Bld) 118 mL/min/1.73m??? Normal >=60 [facility] Comment on above: Order Comment: Speci men Type: BLOOD SPECIMENOrdering Facility: [facility] Address: [address] [place] [address] Result Comment: Chrissy mated Glomerular Filtration Rate [...] actual GFR. Performed By: #### 2 4323-8 ####[facility]ORATORYCLIA [id number] [place] [id number] [place] Glucose [Mass/Vol] 73 mg/dL Normal 70-100 [facility] Comment on above: Order Comment: Syd ramos Type: BLOOD SPECIMENOrdering Facility: [facility] Address: [address] [place] [address] Result Comment: [place] Diabetes Association (ADA) provides guidance for cutoff [...] Standards of Medical Care in Diabetes 2016, [place] Diabetes Association. Diabetes Care. 2016.39(Suppl 1).Results may be falsely elevated after the administration of Sulfapyridine.Results may be falsely depressed after the administration of Sulfasalazine. Performed By: #### 2 4323-8 ####[facility]ORATORYCLIA [id number] [place] [id number] [place] Potassium [Moles/Vol] 4.0 mmol/L Normal 3.5-5.1 [facility] Comment on above: Order Comment: Syd ramos Type: BLOOD SPECIMENOrdering Facility: [facility] Address: [address] [place] [id number] Performed By: #### 2 4323-8 ####[facility]ORATORYCLIA [id number] [place] [id number] [place] Protein [Mass/Vol] 5.9 g/dL Low 6.0-8.5 [facility] Comment on above: Order Comment: Speci men Type: BLOOD SPECIMENOrdering Facility: [facility] Address: [address] [place] [address] Performed By: #### 2 4323-8 ####[facility]ORATORYCLIA [id number] [place] [id number] [place] Sodium [Moles/Vol] 137 mmol/L Normal 136-145 [facility] Comment on above: Order Comment: Speci men Type: BLOOD SPECIMENOrdering Facility: [facility] Address: [address] [place] [address] Performed By: #### 2 4323-8 ####[facility]ORATORYCLIA [id number] [place] [id number] [place] Urea nitrogen [Mass/Vol] mg/dL Low 7-26 [facility] Comment on above: Order Comment: Speci men Type: BLOOD SPECIMENOrdering Facility: [facility] Address: [address] [place] [address] Performed By: #### 2 4323-8 ####[facility] LABORATORYCLIA [id number] [place] [id number] [place] HCG Preg Ur Qlon 01-01-2025 HCG ( test) Ql (U) Negative Normal Negative [facility] Comment on above: Order Comment: Speci men Type: URINE SPECIMENOrdering Facility: [facility] Address: [address] [place] [address] Result Comment: This test is intended to aid in the early detection of . Very dilute urine samples, as indicated by a low specific gravity, may not contain billing representative levels of hCG. This test detects [...] for . Performed By: #### 2 106-3 ####[facility] LABORATORYCLIA [id number] [place] [address] [place] MRI BRAIN WO/W IVCONon 01-01 MRI BRAIN WO/W IVCON Normal [facility] NUTRITIONon 01-01-2025 NUTRITION Normal [facility] THERAPY NTon 01-01-2025 THERAPY NT Normal [facility] THERAPY NT Normal [facility] THERAPY NT Normal [facility] Basic metabolic 2000 panelon 12-31-2024 Anion gap [Moles/Vol] 9 mmol/L Normal 5-16 [facility] Comment on above: Order Comment: Speci men Type: BLOOD SPECIMENOrdering Facility: [facility] Address: [address] [place] [address] Performed By: #### 2 432-2, 2142-12 ####[facility] LABORATORYCLIA [id number] [place] [id number] [place] Calcium [Mass/Vol] 9.0 mg/dL Normal 8.5-10.5 [facility] Comment on above: Order Comment: Speci men Type: BLOOD SPECIMENOrdering Facility: [facility] Address: [address] [place] [id number] Performed By: #### 2 4321-2, 2142-12 ####[facility] LABORATORYCLIA [id number] [place] [id number] [place] Chloride [Moles/Vol] 108 mmol/L High 98-107 [facility] Comment on above: Order Comment: Speci men Type: BLOOD SPECIMENOrdering Facility: [facility] Address: [address] [place] [address] Performed By: #### 2 4321-2, 2142-12 ####[facility] LABORATORYCLIA [id number] [place] [id number] [place] CO2 [Moles/Vol] 23 mmol/L Normal 21-32 [facility] Comment on above: Order Comment: Speci men Type: BLOOD SPECIMENOrdering Facility: [facility] Address: [address] [place] [address] Performed By: #### 2 432-2, 2142-12 ####[facility] LABORATORYCLIA [id number] [place] [id number] [place] Creatinine [Mass/Vol] 0.56 mg/dL Normal 0.51-0.95 [facility] Comment on above: Order Comment: Syd ramos Type: BLOOD SPECIMENOrdering Facility: [facility] Address: [address] [place] [address] Result Comment: Marilin ents receiving either N-Acetylcysteine (NAC) or Metamizole prior to venipuncture, may have falsely depressed results. Performed By: #### 2 432-, 2142-12 ####[facility] LABORATORYCLIA [id number] [place] [id number] [facility] Creatinine and Glomerular filtration rate.predicted panel (S/P/Bld) 113 mL/min/1.73m??? Normal >=60 [facility] Comment on above: Order Comment: Syd ramos Type: BLOOD SPECIMENOrdering Facility: [facility] Address: [address] [place] [address] Result Comment: Chrissy mated Glomerular Filtration Rate [...] GFR. Performed By: #### 2 432-, 2142-12 ####[facility] LABORATORYCLIA [id number] [place] [id number] [place] Glucose [Mass/Vol] 68 mg/dL Low 70-100 [facility] Comment on above: Order Comment: Syd ramos Type: BLOOD SPECIMENOrdering Facility: [facility] Address: [address] [place] [address] Result Comment: The [place] Diabetes Association (ADA) provides guidance for cutoff [...] Standards of Medical Care in Diabetes 2016, [place] Diabetes Association. Diabetes Care. 2016.39(Suppl 1).Results may be falsely elevated after the administration of Sulfapyridine.Results may be falsely depressed after the administration of Sulfasalazine. Performed By: #### 2 4320-08, 2142-12 ####[facility] LABORATORYCLIA [id number] [place] [address] [place] Potassium [Moles/Vol] 3.8 mmol/L Normal 3.5-5.1 [facility] Comment on above: Order Comment: Syd ramos Type: BLOOD SPECIMENOrdering Facility: [facility] Address: [address] [place] [address] Performed By: #### 2 4320-08, 2142-12 ####[facility] LABORATORYCLIA [id number] [address] STATES OF [facility] Sodium [Moles/Vol] 140 mmol/L Normal 136-145 [facility] Comment on above: Order Comment: Syd ramos Type: BLOOD SPECIMENOrdering Facility: [facility] Address: [address] [place] [address] Performed By: #### 2 4320-08, 2142-12 ####[facility] LABORATORYCLIA [id number] [place] [address] [place] Urea nitrogen [Mass/Vol] 12 mg/dL Normal 7-26 [facility] Comment on above: Order Comment: Irmai richard Type: BLOOD SPECIMENOrdering Facility: [facility] Address: [address] [place] [address] Performed By: #### 2 4320-08, 2142-12 ####[facility] LABORATORYCLIA [id number] [address] STATES OF [facility] CASE MANAGEMon 12-31-2024 CASE MANAGEM Normal [facility] CBC panel Auto (Bld)on 12-31 Erythrocyte distribution width (RBC) [Ratio] 12.4 % Normal 11.5-15.0 [facility] Comment on above: Order Comment: Speci men Type: BLOOD SPECIMENOrdering Facility: [facility] Address: [address] [place] [address] Performed By: #### 5 8410-2 ####[facility] LABORATORYCLIA [id number] [address] Hematocrit (Bld) [Volume fraction] 42.9 % Normal 36.0-46.0 [facility] Comment on above: Order Comment: Speci men Type: BLOOD SPECIMENOrdering Facility: [facility] Address: [address] [place] [address] Performed By: #### 5 8410-2 ####[facility] LABORATORYCLIA [id number] [address] Hemoglobin (Bld) [Mass/Vol] 14.4 g/dL Normal 11.5-15.5 [facility] Comment on above: Order Comment: Speci men Type: BLOOD SPECIMENOrdering Facility: [facility] Address: [address] [place] [address] Performed By: #### 5 8410-2 ####[facility] LABORATORYCLIA [id number] [address] [place] MCH (RBC) [Entitic mass] 32.3 pg Normal 26.0-34.0 [facility] Comment on above: Order Comment: Speci men Type: BLOOD SPECIMENOrdering Facility: [facility] Address: [address] [place] [address] Performed By: #### 5 8410-2 ####[facility] LABORATORYCLIA [id number] [place] [id number] [place] MCHC (RBC) [Mass/Vol] 33.6 g/dL Normal 30.5-36.0 [facility] Comment on above: Order Comment: Speci men Type: BLOOD SPECIMENOrdering Facility: [facility] Address: [address] [place] [address] Performed By: #### 5 8410-2 ####[facility] LABORATORYCLIA [id number] [place] [id number] [facility] MCV (RBC) [Entitic vol] 96.2 fL Normal 80.0-100.0 [facility] Comment on above: Order Comment: Speci men Type: BLOOD SPECIMENOrdering Facility: [facility] Address: [address] [place] [address] Performed By: #### 5 8410-2 ####[facility] LABORATORYCLIA [id number] [address] [place] Nucleated RBC (Bld) [#/Vol] 10*3/uL Normal <0.01 [facility] Comment on above: Order Comment: Speci men Type: BLOOD SPECIMENOrdering Facility: [facility] Address: [address] [place] [address] Performed By: #### 5 8410-2 ####[facility] LABORATORYCLIA [id number] [address] [place] Platelet mean volume (Bld) [Entitic vol] 10.2 fL Normal 9.0-12.7 [facility] Comment on above: Order Comment: Speci men Type: BLOOD SPECIMENOrdering Facility: [facility] Address: [address] [place] [address] Performed By: #### 5 8410-2 ####[facility] LABORATORYCLIA [id number] [address] [place] Platelets (Bld) [#/Vol] 179 10*3/uL Normal 150-400 [facility] Comment on above: Order Comment: Speci men Type: BLOOD SPECIMENOrdering Facility: [facility] Address: [address] [place] [address] Performed By: #### 5 8410-2 ####[facility] LABORATORYCLIA [id number] [address] RBC (Bld) [#/Vol] 4.46 10*6/uL Normal 3.90-5.20 [facility] Comment on above: Order Comment: Speci men Type: BLOOD SPECIMENOrdering Facility: [facility] Address: [address] [place] [address] Performed By: #### 5 8410-2 ####[facility] LABORATORYCLIA [id number] [address] [place] WBC (Bld) [#/Vol] 6.66 10*3/uL Normal 3.70-11.00 [facility] Comment on above: Order Comment: Speci men Type: BLOOD SPECIMENOrdering Facility: [facility] Address: [address] [place] [address] Performed By: #### 5 8410-2 ####[facility] LABORATORYCLIA [id number] [address] CONSULT PROGon 12-31-2024 CONSULT PROG Normal [facility] CONSULT PROG Normal [facility] Cortis SerPl-mCncon 01-01-20 25 Cortisol [Mass/Vol] 13.2 ug/dL Normal 3.4-22.5 [facility] Comment on above: Order Comment: Speci men Type: BLOOD SPECIMENOrdering Facility: [facility] Address: [address] [place] [address] Result Comment: PM: Approximately half of A.M. values Performed By: #### 2 4321-2, 2143-6 ####[facility] LABORATORYCLIA [id number] [address] OF [place] TOXICOLOGY SCREEN, ROUTINE U RINEon 12-31-2024 Amphetamines Confirm (U) [Mass/Vol] Negative Normal Negative [facility] Comment on above: Order Comment: Speci men Type: URINE SPECIMENOrdering Facility: [facility] Address: [address] [place] [address] Result Comment: Cuto ff threshold at 1000 ng/mL. Performed By: #### U TOX2 ####[facility] LABORATORYCLIA [id number] [place] [address] [place] BARBITURATES, URINE Negative Normal Negative [facility] [facility] Comment on above: Order Comment: Speci men Type: URINE SPECIMENOrdering Facility: [facility] Address: [address] [place] [address] Result Comment: Cuto ff threshold at 200 ng/mL. Performed By: #### U TOX2 ####[facility] LABORATORYCLIA [id number] [place] [address] [place] BENZODIAZEPINES, UR Negative Normal Negative [facility] Comment on above: Order Comment: Speci men Type: URINE SPECIMENOrdering Facility: [facility] Address: [address] [place] [address] Result Comment: Cuto ff threshold at 200 ng/mL. Performed By: #### U TOX2 ####[facility] LABORATORYCLIA [id number] [place] [address] [place] Cannabinoids Screen Ql (U) Negative Normal Negative [facility] Comment on above: Order Comment: Speci men Type: URINE SPECIMENOrdering Facility: [facility] Address: [address] [place] [address] Result Comment: Cuto ff threshold at 50 ng/mL. Performed By: #### U TOX2 ####[facility] LABORATORYCLIA [id number] [place] [address] [place] Cocaine Ql (U) Negative Normal Negative [facility] Comment on above: Order Comment: Speci men Type: URINE SPECIMENOrdering Facility: [facility] Address: [address] [place] [address] Result Comment: Cuto ff threshold at 300 ng/mL. Performed By: #### U TOX2 ####[facility] LABORATORYCLIA [id number] [place] [address] [place] Opiates Screen Ql (U) Negative Normal Negative [facility] Comment on above: Order Comment: Speci men Type: URINE SPECIMENOrdering Facility: [facility] Address: [address] [place] [address] Result Comment: Cuto ff threshold at 300 ng/mL. Performed By: #### U TOX2 ####[facility] LABORATORYCLIA [id number] [place] [id number] [place] Phencyclidine Ql (U) Negative Normal Negative [facility] Comment on above: Order Comment: Speci men Type: URINE SPECIMENOrdering Facility: [facility] Address: [address] [place] [address] Result Comment: Cuto ff threshold at 25 ng/mL. Performed By: #### U TOX2 ####[facility] LABORATORYCLIA [id number] [place] [id number] [place] XR ABDOMEN 1V SUPINEon 12-31 XR ABDOMEN 1V SUPINE Normal [facility] Basic metabolic 2000 panelon 12-30-2024 Anion gap [Moles/Vol] 11 mmol/L Normal 5-16 [facility] Comment on above: Order Comment: Speci men Type: BLOOD SPECIMENOrdering Facility: [facility] Address: [address] [place] [address] Performed By: #### 2 4321-2, , 2156-12 ####[facility] LABORATORYCLIA [id number] [place] [id number] [place] Calcium [Mass/Vol] 9.3 mg/dL Normal 8.5-10.5 [facility] Comment on above: Order Comment: Speci men Type: BLOOD SPECIMENOrdering Facility: [facility] Address: [address] [place] [address] Performed By: #### 2 4321-2, , 2156-12 ####[facility] LABORATORYCLIA [id number] [place] [address] [place] Chloride [Moles/Vol] 107 mmol/L Normal 98-107 [facility] Comment on above: Order Comment: Speci men Type: BLOOD SPECIMENOrdering Facility: [facility] Address: [address] [place], [place] [address] Performed By: #### 2 4321-2, , 2156-12 ####[facility] LABORATORYCLIA [id number] [place] [id number] [place] CO2 [Moles/Vol] 22 mmol/L Normal 21-32 [facility] Comment on above: Order Comment: Speci men Type: BLOOD SPECIMENOrdering Facility: [facility] Address: [address] [place] [address] Performed By: #### 2 4321-2, , 2156-12 ####[facility] LABORATORYCLIA [id number] [place] [id number] [place] Creatinine [Mass/Vol] 0.48 mg/dL Low 0.51-0.95 [facility] Comment on above: Order Comment: Speci men Type: BLOOD SPECIMENOrdering Facility: [facility] Address: [address] [place] [address] Result Comment: Marilin ents receiving either N-Acetylcysteine (NAC) or Metamizole prior to venipuncture, may have falsely depressed results. Performed By: #### 2 4321-2, , 2156-12 ####[facility]ORATORYCLIA [id number] [place] [id number] [place] Creatinine and Glomerular filtration rate.predicted panel (S/P/Bld) 118 mL/min/1.73m??? Normal >=60 [facility] Comment on above: Order Comment: Speci men Type: BLOOD SPECIMENOrdering Facility: [facility] Address: [address] [place] [address] Result Comment: Chrissy mated Glomerular Filtration Rate [...] Performed By: #### 2 4321-2, , 2156-12 ####[facility]ORATORYCLIA [id number] [place] [id number] [place] Glucose [Mass/Vol] 88 mg/dL Normal 70-100 [facility] Comment on above: Order Comment: Syd ramos Type: BLOOD SPECIMENOrdering Facility: [facility] Address: [address] [place], [place] [address] Result Comment: [place] Diabetes Association (ADA) provides guidance for cutoff [...] Standards of Medical Care in Diabetes 2016, [place] Diabetes Association. Diabetes Care. 2016.39(Suppl 1).Results may be falsely elevated after the administration of Sulfapyridine.Results may be falsely depressed after the administration of Sulfasalazine. Performed By: #### 2 4321-2, , 2156-12 ####[facility] LABORATORYCLIA [id number] [place] [address] [place] Potassium [Moles/Vol] 3.8 mmol/L Normal 3.5-5.1 [facility] Comment on above: Order Comment: Syd ramos Type: BLOOD SPECIMENOrdering Facility: [facility] Address: [address] [place] [address] Performed By: #### 2 4321-2, , 2156-12 ####[facility]ORATORYCLIA [id number] [place] [address] [place] Sodium [Moles/Vol] 140 mmol/L Normal 136-145 [facility] Comment on above: Order Comment: Syd ramos Type: BLOOD SPECIMENOrdering Facility: [facility] Address: [address] [place] [address] Performed By: #### 2 4321-2, , 2156-12 ####[facility]ORATORYCLIA [id number] [place] [address] [place] Urea nitrogen [Mass/Vol] 5 mg/dL Low 7-26 [facility] Comment on above: Order Comment: Speci men Type: BLOOD SPECIMENOrdering Facility: [facility] Address: [address] [place] [address] Performed By: #### 2 4321-2, 02478-5, 2157-6 ####[facility]ORATORYCLIA [id number] [address] [place] CBC panel Auto (Bld)on 12-30 Erythrocyte distribution width (RBC) [Ratio] 12.4 % Normal 11.5-15.0 [facility] Comment on above: Order Comment: Speci men Type: BLOOD SPECIMENOrdering Facility: [facility] Address: [address] [place] [address] Performed By: #### 5 8410-2 ####[facility] LABORATORYCLIA [id number] [address] STATES OF [facility] Hematocrit (Bld) [Volume fraction] 43.4 % Normal 36.0-46.0 [facility] Comment on above: Order Comment: Speci men Type: BLOOD SPECIMENOrdering Facility: [facility] Address: [address] [place] [address] Performed By: #### 5 8410-2 ####[facility]ORATORYCLIA [id number] [address] [place] Hemoglobin (Bld) [Mass/Vol] 14.8 g/dL Normal 11.5-15.5 [facility] Comment on above: Order Comment: Speci men Type: BLOOD SPECIMENOrdering Facility: [facility] Address: [address] [place] [address] Performed By: #### 5 8410-2 ####[facility] LABORATORYCLIA [id number] [address] [place] MCH (RBC) [Entitic mass] 32.1 pg Normal 26.0-34.0 [facility] Comment on above: Order Comment: Speci men Type: BLOOD SPECIMENOrdering Facility: [facility] Address: [address] [place] [address] Performed By: #### 5 8410-2 ####[facility] LABORATORYCLIA [id number] [address] MCHC (RBC) [Mass/Vol] 34.1 g/dL Normal 30.5-36.0 [facility] Comment on above: Order Comment: Speci men Type: BLOOD SPECIMENOrdering Facility: [facility] Address: [address] [place] [address] Performed By: #### 5 8410-2 ####[facility]ORATORYCLIA [id number] [address] [place] MCV (RBC) [Entitic vol] 94.1 fL Normal 80.0-100.0 [facility] Comment on above: Order Comment: Speci men Type: BLOOD SPECIMENOrdering Facility: [facility] Address: [address] [place] [address] Performed By: #### 5 8410-2 ####[facility]ORATORYCLIA [id number] [address] [place] Nucleated RBC (Bld) [#/Vol] 10*3/uL Normal <0.01 [facility] Comment on above: Order Comment: Speci men Type: BLOOD SPECIMENOrdering Facility: [facility] Address: [address] [place] [address] Performed By: #### 5 8410-2 ####[facility]ORATORYCLIA [id number] [address] [place] Platelet mean volume (Bld) [Entitic vol] 9.7 fL Normal 9.0-12.7 [facility] Comment on above: Order Comment: Speci men Type: BLOOD SPECIMENOrdering Facility: [facility] Address: [address] [place] [address] Performed By: #### 5 8410-2 ####[facility]ORATORYCLIA [id number] [address] [place] Platelets (Bld) [#/Vol] 211 10*3/uL Normal 150-400 [facility] Comment on above: Order Comment: Speci men Type: BLOOD SPECIMENOrdering Facility: [facility] Address: [address] [place] [address] Performed By: #### 5 8410-2 ####[facility]ORATORYCLIA [id number] [place] [address] [place] RBC (Bld) [#/Vol] 4.61 10*6/uL Normal 3.90-5.20 [facility] Comment on above: Order Comment: Speci men Type: BLOOD SPECIMENOrdering Facility: [facility] Address: [address] [place] [address] Performed By: #### 5 8410-2 ####[facility]ORATORYCLIA [id number] [address] OF [facility] WBC (Bld) [#/Vol] 7.50 10*3/uL Normal 3.70-11.00 [facility] Comment on above: Order Comment: Speci men Type: BLOOD SPECIMENOrdering Facility: [facility] Address: [address] [place] [address] Performed By: #### 5 8410-2 ####[facility]ORATORYCLIA [id number] [address] [place] CK SerPl-cCncon 12-30-2024 CK [Catalytic activity/Vol] 512 U/L High 28-152 [facility] Comment on above: Order Comment: Speci men Type: BLOOD SPECIMENOrdering Facility: [facility] Address: [address] [place] [address] Performed By: #### 2 4321-2, 64778-1, 2157-6 ####[facility]ORATORYCLIA [id number] [place] [address] [place] CONSULTon 12-30-2024 CONSULT Normal [facility] Magnesium SerPl-mCncon 12-30 Magnesium [Mass/Vol] 1.7 mg/dL Normal 1.6-2.6 [facility] Comment on above: Order Comment: Speci men Type: BLOOD SPECIMENOrdering Facility: [facility] Address: [address] [place] [address] [place] [address] Performed By: #### 2 4321-2, 06916-7, 2157-6 ####[facility]ORATORYCLIA [id number] [place] [address] [place] ALLIED HEALTHon 12-29-2024 ALLIED HEALTH Normal [facility] Basic metabolic 2000 panelon 12-29-2024 Anion gap [Moles/Vol] 11 mmol/L Normal 5-16 [facility] Comment on above: Order Comment: Speci men Type: BLOOD SPECIMENOrdering Facility: [facility] Address: [address] [place] [address] Performed By: #### 2 4321-2 ####[facility]ORATORYCLIA [id number] [place] [id number] [place] Calcium [Mass/Vol] 9.1 mg/dL Normal 8.5-10.5 [facility] Comment on above: Order Comment: Speci men Type: BLOOD SPECIMENOrdering Facility: [facility] Address: [address] [place] [address] Performed By: #### 2 4321-2 ####[facility]ORATORYCLIA [id number] [place] [id number] [place] Chloride [Moles/Vol] 109 mmol/L High 98-107 [facility] Comment on above: Order Comment: Speci men Type: BLOOD SPECIMENOrdering Facility: [facility] Address: [address] [place] [address] Performed By: #### 2 4321-2 ####[facility]ORATORYCLIA [id number] [place] [id number] [place] CO2 [Moles/Vol] 20 mmol/L Low 21-32 [facility] Comment on above: Order Comment: Speci men Type: BLOOD SPECIMENOrdering Facility: [facility] Address: [address] [place] [address] Performed By: #### 2 4321-2 ####[facility]ORATORYCLIA [id number] [place] [address] [place] Creatinine [Mass/Vol] 0.52 mg/dL Normal 0.51-0.95 [facility] Comment on above: Order Comment: Syd ramos Type: BLOOD SPECIMENOrdering Facility: [facility] Address: [address] [place] [address] Result Comment: Marilin ents receiving either N-Acetylcysteine (NAC) or Metamizole prior to venipuncture, may have falsely depressed results. Performed By: #### 2 4321-2 ####[facility]ORATORYCLIA [id number] [address] Creatinine and Glomerular filtration rate.predicted panel (S/P/Bld) 115 mL/min/1.73m??? Normal >=60 [facility] Comment on above: Order Comment: Syd ramos Type: BLOOD SPECIMENOrdering Facility: [facility] Address: [address] [place] [address] Result Comment: Chrissy mated Glomerular Filtration Rate [...] actual GFR. Performed By: #### 2 4321-2 ####[facility]ORATORYCLIA [id number] [address] [place] Glucose [Mass/Vol] 103 mg/dL High 70-100 [facility] Comment on above: Order Comment: Syd ramos Type: BLOOD SPECIMENOrdering Facility: [facility] Address: [address] [place] [address] Result Comment: The [place] Diabetes Association (ADA) provides guidance for cutoff [...] Standards of Medical Care in Diabetes 2016, [place] Diabetes Association. Diabetes Care. 2016.39(Suppl 1).Results may be falsely elevated after the administration of Sulfapyridine.Results may be falsely depressed after the administration of Sulfasalazine. Performed By: #### 2 4321-2 ####[facility]ORATORYCLIA [id number] [place] [address] [place] Potassium [Moles/Vol] 3.8 mmol/L Normal 3.5-5.1 [facility] Comment on above: Order Comment: Syd ramos Type: BLOOD SPECIMENOrdering Facility: [facility] Address: [address] [place] [address] Performed By: #### 2 4321-2 ####[facility]ORATORYCLIA [id number] [place] [address] [place] Sodium [Moles/Vol] 140 mmol/L Normal 136-145 [facility] Comment on above: Order Comment: Syd ramos Type: BLOOD SPECIMENOrdering Facility: [facility] Address: [address] [place] [address] Performed By: #### 2 4321-2 ####[facility]ORATORYCLIA [id number] [address] [place] Urea nitrogen [Mass/Vol] 5 mg/dL Low 7-26 [facility] Comment on above: Order Comment: Syd ramos Type: BLOOD SPECIMENOrdering Facility: [facility] Address: [address] [place] [address] Performed By: #### 2 4321-2 ####[facility]ORATORYCLIA [id number] [place] [address] [place] CBC W Auto Differential pane l (Bld)on 12-29-2024 Basophils (Bld) [#/Vol] 0.04 10*3/uL Normal <0.11 [facility] Comment on above: Order Comment: Speci men Type: BLOOD SPECIMENOrdering Facility: [facility] Address: [address] [place] [address] Performed By: #### 5 7021-8 ####[facility]ORATORYCLIA [id number] [place] [address] [place] Basophils/100 WBC (Bld) 0.5 % Normal [facility] Comment on above: Order Comment: Speci men Type: BLOOD SPECIMENOrdering Facility: [facility] Address: [address] [place] [address] Performed By: #### 5 7021-8 ####[facility]ORATORYCLIA [id number] [place] [address] [place] Differential cell count method Nom (Bld) Auto Normal [facility] Comment on above: Order Comment: Speci men Type: BLOOD SPECIMENOrdering Facility: [facility] Address: [address] [place] [address] Performed By: #### 5 7021-8 ####[facility]ORATORYCLIA [id number] [place] [address] [place] Eosinophils (Bld) [#/Vol] 0.14 10*3/uL Normal <0.46 [facility] Comment on above: Order Comment: Speci men Type: BLOOD SPECIMENOrdering Facility: [facility] Address: [address] [place] [address] Performed By: #### 5 7021-8 ####[facility]ORATORYCLIA [id number] [place] [address] [place] Eosinophils/100 WBC (Bld) 1.7 % Normal [facility] Comment on above: Order Comment: Speci men Type: BLOOD SPECIMENOrdering Facility: [facility] Address: [address] [place] [address] Performed By: #### 5 7021-8 ####[facility]ORATORYCLIA [id number] [address] [place] Erythrocyte distribution width (RBC) [Ratio] 12.3 % Normal 11.5-15.0 [facility] Comment on above: Order Comment: Speci men Type: BLOOD SPECIMENOrdering Facility: [facility] Address: [address] [place] [address] Performed By: #### 5 7021-8 ####[facility]ORATORYCLIA [id number] [place] [address] [place] Hematocrit (Bld) [Volume fraction] 42.6 % Normal 36.0-46.0 [facility] Comment on above: Order Comment: Speci men Type: BLOOD SPECIMENOrdering Facility: [facility] Address: [address] [place] [address] Performed By: #### 5 7021-8 ####[facility]ORATORYCLIA [id number] [place] [address] [place] Hemoglobin (Bld) [Mass/Vol] 14.5 g/dL Normal 11.5-15.5 [facility] Comment on above: Order Comment: Speci men Type: BLOOD SPECIMENOrdering Facility: [facility] Address: [address] [place] [address] Performed By: #### 5 7021-8 ####[facility]ORATORYCLIA [id number] [address] [place] Immature granulocytes (Bld) [#/Vol] 0.07 10*3/uL Normal <0.10 [facility] Comment on above: Order Comment: Speci men Type: BLOOD SPECIMENOrdering Facility: [facility] Address: [address] [place] [address] Performed By: #### 5 7021-8 ####[facility]ORATORYCLIA [id number] [address] [place] Immature granulocytes/100 WBC (Bld) 0.8 % Normal [facility] Comment on above: Order Comment: Speci men Type: BLOOD SPECIMENOrdering Facility: [facility] Address: [address] [place] [address] Performed By: #### 5 7021-8 ####[facility]ORATORYCLIA [id number] [place] [address] [place] Lymphocytes (Bld) [#/Vol] 2.83 10*3/uL Normal 1.00-4.00 [facility] Comment on above: Order Comment: Speci men Type: BLOOD SPECIMENOrdering Facility: [facility] Address: [address] [place] [address] Performed By: #### 5 7021-8 ####[facility]ORATORYCLIA [id number] [address] [place] Lymphocytes/100 WBC (Bld) 33.7 % Normal [facility] Comment on above: Order Comment: Speci men Type: BLOOD SPECIMENOrdering Facility: [facility] Address: [address] [place] [address] Performed By: #### 5 7021-8 ####[facility]ORATORYCLIA [id number] [address] [place] MCH (RBC) [Entitic mass] 31.5 pg Normal 26.0-34.0 [facility] Comment on above: Order Comment: Speci men Type: BLOOD SPECIMENOrdering Facility: [facility] Address: [address] [place] [address] Performed By: #### 5 7021-8 ####[facility]ORATORYCLIA [id number] [address] [place] MCHC (RBC) [Mass/Vol] 34.0 g/dL Normal 30.5-36.0 [facility] Comment on above: Order Comment: Speci men Type: BLOOD SPECIMENOrdering Facility: [facility] Address: [address] [place] [address] Performed By: #### 5 7021-8 ####[facility]ORATORYCLIA [id number] [address] [place] MCV (RBC) [Entitic vol] 92.6 fL Normal 80.0-100.0 [facility] Comment on above: Order Comment: Speci men Type: BLOOD SPECIMENOrdering Facility: [facility] Address: [address] [place] [address] Performed By: #### 5 7021-8 ####[facility] LABORATORYCLIA [id number] [place] [address] [place] Monocytes (Bld) [#/Vol] 1.10 10*3/uL High <0.87 [facility] Comment on above: Order Comment: Speci men Type: BLOOD SPECIMENOrdering Facility: [facility] Address: [address] [place] [address] Performed By: #### 5 7021-8 ####[facility] LABORATORYCLIA [id number] [place] [id number] [place] Monocytes/100 WBC (Bld) 13.1 % Normal [facility] Comment on above: Order Comment: Speci men Type: BLOOD SPECIMENOrdering Facility: [facility] Address: [address] [place] [address] Performed By: #### 5 7021-8 ####[facility] LABORATORYCLIA [id number] [place] [address] [place] Neutrophils (Bld) [#/Vol] 4.22 10*3/uL Normal 1.45-7.50 [facility] Comment on above: Order Comment: Speci men Type: BLOOD SPECIMENOrdering Facility: [facility] Address: [address] [place] [address] Performed By: #### 5 7021-8 ####[facility]ORATORYCLIA [id number] [place] [id number] [place] Neutrophils/100 WBC (Bld) 50.2 % Normal [facility] Comment on above: Order Comment: Speci men Type: BLOOD SPECIMENOrdering Facility: [facility] Address: [address] [place] [address] Performed By: #### 5 7021-8 ####[facility] LABORATORYCLIA [id number] [place] [id number] [place] Nucleated RBC (Bld) [#/Vol] 10*3/uL Normal <0.01 [facility] Comment on above: Order Comment: Speci men Type: BLOOD SPECIMENOrdering Facility: [facility] Address: [address] [place] [address] Performed By: #### 5 7021-8 ####[facility] LABORATORYCLIA [id number] [place] [id number] [place] Nucleated RBC/100 WBC (Bld) [Ratio] 0.0 /100 WBC Normal [facility] Comment on above: Order Comment: Speci men Type: BLOOD SPECIMENOrdering Facility: [facility] Address: [address] [place] [address] Performed By: #### 5 7021-8 ####[facility] LABORATORYCLIA [id number] [place] [address] [place] Platelet mean volume (Bld) [Entitic vol] 10.1 fL Normal 9.0-12.7 [facility] Comment on above: Order Comment: Speci men Type: BLOOD SPECIMENOrdering Facility: [facility] Address: [address] [place] [address] Performed By: #### 5 7021-8 ####[facility] LABORATORYCLIA [id number] [place], [place] [address] [place] Platelets (Bld) [#/Vol] 242 10*3/uL Normal 150-400 [facility] Comment on above: Order Comment: Speci men Type: BLOOD SPECIMENOrdering Facility: [facility] Address: [address] [place] [address] Performed By: #### 5 7021-8 ####[facility] LABORATORYCLIA [id number] [place] [address] [place] RBC (Bld) [#/Vol] 4.60 10*6/uL Normal 3.90-5.20 [facility] Comment on above: Order Comment: Speci men Type: BLOOD SPECIMENOrdering Facility: [facility] Address: [address] [place] [address] Performed By: #### 5 7021-8 ####[facility] LABORATORYCLIA [id number] [place] [address] [place] WBC (Bld) [#/Vol] 8.40 10*3/uL Normal 3.70-11.00 [facility] Comment on above: Order Comment: Speci men Type: BLOOD SPECIMENOrdering Facility: [facility] Address: [address] [place] [address] Performed By: #### 5 7021-8 ####[facility] LABORATORYCLIA [id number] [place] [id number] [place] CONSULTon 12-29-2024 CONSULT Normal [facility] NURSING PROGon 12-29-2024 NURSING PROG Normal [facility] THERAPY NTon 12-29-2024 THERAPY NT Normal [facility] ALLIED HEALTHon 12-28-2024 ALLIED HEALTH Normal [facility] Basic metabolic 2000 panelon 12-28-2024 Anion gap [Moles/Vol] 6 mmol/L Normal 5-16 [facility] Comment on above: Order Comment: Speci men Type: BLOOD SPECIMENOrdering Facility: [facility] Address: [address] [place] [address] Performed By: #### 2 4321-2 ####[facility] LABORATORYCLIA [id number] [place] [id number] [place] Calcium [Mass/Vol] 8.6 mg/dL Normal 8.5-10.5 [facility] Comment on above: Order Comment: Speci men Type: BLOOD SPECIMENOrdering Facility: [facility] Address: [address] [place] [address] Performed By: #### 2 4321-2 ####[facility] LABORATORYCLIA [id number] [place] [address] [place] Chloride [Moles/Vol] 111 mmol/L High 98-107 [facility] Comment on above: Order Comment: Speci men Type: BLOOD SPECIMENOrdering Facility: [facility] Address: [address] [place] [address] Performed By: #### 2 4321-2 ####[facility] LABORATORYCLIA [id number] [place] [address] [place] CO2 [Moles/Vol] 25 mmol/L Normal 21-32 [facility] Comment on above: Order Comment: Speci men Type: BLOOD SPECIMENOrdering Facility: [facility] Address: [address] [place] [address] Performed By: #### 2 4321-2 ####[facility] LABORATORYCLIA [id number] [place] [address] [place] Creatinine [Mass/Vol] 0.59 mg/dL Normal 0.51-0.95 [facility] Comment on above: Order Comment: Speci men Type: BLOOD SPECIMENOrdering Facility: [facility] Address: [address] [place] [address] Result Comment: Marilin ents receiving either N-Acetylcysteine (NAC) or Metamizole prior to venipuncture, may have falsely depressed results. Performed By: #### 2 4321-2 ####[facility] LABORATORYCLIA [id number] [address] Creatinine and Glomerular filtration rate.predicted panel (S/P/Bld) 112 mL/min/1.73m??? Normal >=60 [facility] Comment on above: Order Comment: Speci men Type: BLOOD SPECIMENOrdering Facility: [facility] Address: [address] [place] [address] Result Comment: Chrissy mated Glomerular Filtration Rate [...] actual GFR. Performed By: #### 2 4321-2 ####[facility] LABORATORYCLIA [id number] [place] [address] [place] Glucose [Mass/Vol] 95 mg/dL Normal 70-100 [facility] Comment on above: Order Comment: Speci men Type: BLOOD SPECIMENOrdering Facility: [facility] Address: [address] [place], [place] [address] Result Comment: The [place] Diabetes Association (ADA) provides guidance for cutoff [...] Standards of Medical Care in Diabetes 2016, [place] Diabetes Association. Diabetes Care. 2016.39(Suppl 1).Results may be falsely elevated after the administration of Sulfapyridine.Results may be falsely depressed after the administration of Sulfasalazine. Performed By: #### 2 4321-2 ####[facility]ORATORYCLIA [id number] [place] [address] [place] Potassium [Moles/Vol] 3.7 mmol/L Normal 3.5-5.1 [facility] Comment on above: Order Comment: Syd ramos Type: BLOOD SPECIMENOrdering Facility: [facility] Address: [address] [place], [place] [address] Performed By: #### 2 4321-2 ####[facility]ORATORYCLIA [id number] [place] [address] [place] Sodium [Moles/Vol] 142 mmol/L Normal 136-145 [facility] Comment on above: Order Comment: Syd ramos Type: BLOOD SPECIMENOrdering Facility: [facility] Address: [address] [place], [place] [address] Performed By: #### 2 4321-2 ####[facility]ORATORYCLIA [id number] [place] [address] [place] Urea nitrogen [Mass/Vol] 8 mg/dL Normal 7-26 [facility] Comment on above: Order Comment: Irmai men Type: BLOOD SPECIMENOrdering Facility: [facility] Address: [address] [place], [place] [address] Performed By: #### 2 4321-2 ####[facility] LABORATORYCLIA [id number] [place] [id number] [place] CASE MGT INIT ASSESon 2024 CASE MGT INIT ASSES Normal [facility] CBC panel Auto (Bld)on 12-28 Erythrocyte distribution width (RBC) [Ratio] 12.4 % Normal 11.5-15.0 [facility] Comment on above: Order Comment: Speci men Type: BLOOD SPECIMENOrdering Facility: [facility] Address: [address] [place] [address] Performed By: #### 5 8410-2 ####[facility] LABORATORYCLIA [id number] [address] [place] Hematocrit (Bld) [Volume fraction] 41.2 % Normal 36.0-46.0 [facility] Comment on above: Order Comment: Speci men Type: BLOOD SPECIMENOrdering Facility: [facility] Address: [address] [place] [address] Performed By: #### 5 8410-2 ####[facility]ORATORYCLIA [id number] [place] [address] [place] Hemoglobin (Bld) [Mass/Vol] 13.7 g/dL Normal 11.5-15.5 [facility] Comment on above: Order Comment: Speci men Type: BLOOD SPECIMENOrdering Facility: [facility] Address: [address] [place] [address] Performed By: #### 5 8410-2 ####[facility] LABORATORYCLIA [id number] [place] [address] [place] MCH (RBC) [Entitic mass] 32.3 pg Normal 26.0-34.0 [facility] Comment on above: Order Comment: Speci men Type: BLOOD SPECIMENOrdering Facility: [facility] Address: [address] [place] [address] Performed By: #### 5 8410-2 ####[facility]ORATORYCLIA [id number] [address] [place] MCHC (RBC) [Mass/Vol] 33.3 g/dL Normal 30.5-36.0 [facility] Comment on above: Order Comment: Speci men Type: BLOOD SPECIMENOrdering Facility: [facility] Address: [address] [place] [address] Performed By: #### 5 8410-2 ####[facility] LABORATORYCLIA [id number] [place] [address] [place] MCV (RBC) [Entitic vol] 97.2 fL Normal 80.0-100.0 [facility] Comment on above: Order Comment: Speci men Type: BLOOD SPECIMENOrdering Facility: [facility] Address: [address] [place] [address] Performed By: #### 5 8410-2 ####[facility]ORATORYCLIA [id number] [address] [place] Nucleated RBC (Bld) [#/Vol] 10*3/uL Normal <0.01 [facility] Comment on above: Order Comment: Speci men Type: BLOOD SPECIMENOrdering Facility: [facility] Address: [address] [place] [address] Performed By: #### 5 8410-2 ####[facility]ORATORYCLIA [id number] [place] [address] [place] Platelet mean volume (Bld) [Entitic vol] 9.7 fL Normal 9.0-12.7 [facility] Comment on above: Order Comment: Speci men Type: BLOOD SPECIMENOrdering Facility: [facility] Address: [address] [place] [address] Performed By: #### 5 8410-2 ####[facility]ORATORYCLIA [id number] [place] [address] [place] Platelets (Bld) [#/Vol] 193 10*3/uL Normal 150-400 [facility] Comment on above: Order Comment: Speci men Type: BLOOD SPECIMENOrdering Facility: [facility] Address: [address] [place] [address] Performed By: #### 5 8410-2 ####[facility]ORATORYCLIA [id number] [address] OF [facility] RBC (Bld) [#/Vol] 4.24 10*6/uL Normal 3.90-5.20 [facility] Comment on above: Order Comment: Speci men Type: BLOOD SPECIMENOrdering Facility: [facility] Address: [address] [place] [address] Performed By: #### 5 8410-2 ####[facility]ORATORYCLIA [id number] [address] WBC (Bld) [#/Vol] 7.16 10*3/uL Normal 3.70-11.00 [facility] Comment on above: Order Comment: Speci men Type: BLOOD SPECIMENOrdering Facility: [facility] Address: [address] [place] [address] Performed By: #### 5 8410-2 ####[facility]ORATORYCLIA [id number] [address] [place] BRAIN WO IVCONon 12-29-[address] BRAIN WO IVCON Normal [facility] Resp path 12b Pnl Spec MACIE+p robeon 12-28-2024 Respiratory pathogens DNA and RNA 12b panel MACIE+probe (Unsp spec) Normal [facility] Comment on above: Performed By: #### 6 0566-7 ####[facility]ORATORYCLIA [id number] [place] [address] [place] ALLIED HEALTHon 12-27-2024 ALLIED HEALTH Normal [facility] AST SerPl-cCncon 12-27-2024 AST [Catalytic activity/Vol] 20 U/L Normal 8-34 [facility] Comment on above: Order Comment: Speci men Type: BLOOD SPECIMENOrdering Facility: [facility] Address: [address], [place] [address] Result Comment: Resu lts may be falsely depressed after the administration of Sulfasalazine and/or Sulfapyridine. Performed By: #### 1 920-8, 3094-0, K1, 91251-1 ####[facility]ORATORYCLIA [id number] [place] [id number] [place] Ammonia Plas-sCncon 12-28-19 Ammonia (P) [Moles/Vol] 15 umol/L Normal - [facility] Comment on above: Order Comment: Speci men Type: BLOOD SPECIMENOrdering Facility: [facility] Address: [address] [place] [address] Result Comment: Resu lts may be falsely depressed after the administration of Sulfapyridine. Results may be falsely elevated after the administration of Sulfasalazine. Performed By: #### 1 6362-6 ####[facility]ORATORYCLIA [id number] [address] [place] BUN SerPl-mCncon 12-27-2024 Urea nitrogen [Mass/Vol] 12 mg/dL Normal 02-09 [facility] Comment on above: Order Comment: Speci men Type: BLOOD SPECIMENOrdering Facility: [facility] Address: [address] [place] [address] Performed By: #### 1 920-8, 3094-0, K1, 56705-4 ####[facility]ORATORYCLIA [id number] [address] [place] CBC W Auto Differential pane l (Bld)on 12-27-2024 Basophils (Bld) [#/Vol] 0.04 10*3/uL Normal <0.11 [facility] Comment on above: Order Comment: Speci men Type: BLOOD SPECIMENOrdering Facility: [facility] Address: [address] [place] [address] Performed By: #### 5 7021-8 ####[facility]ORATORYCLIA [id number] [address] [place] Basophils/100 WBC (Bld) 0.5 % Normal [facility] Comment on above: Order Comment: Speci men Type: BLOOD SPECIMENOrdering Facility: [facility] Address: [address] [place] [address] Performed By: #### 5 7021-8 ####[facility]ORATORYCLIA [id number] [place] [id number] [place] Differential cell count method Nom (Bld) Auto Normal [facility] Comment on above: Order Comment: Speci men Type: BLOOD SPECIMENOrdering Facility: [facility] Address: [address] [place] [address] Performed By: #### 5 7021-8 ####[facility]ORATORYCLIA [id number] [place] [address] [place] Eosinophils (Bld) [#/Vol] 0.14 10*3/uL Normal <0.46 [facility] Comment on above: Order Comment: Speci men Type: BLOOD SPECIMENOrdering Facility: [facility] Address: [address] [place] [address] Performed By: #### 5 7021-8 ####[facility]ORATORYCLIA [id number] [place] [address] [place] Eosinophils/100 WBC (Bld) 1.8 % Normal [facility] Comment on above: Order Comment: Speci men Type: BLOOD SPECIMENOrdering Facility: [facility] Address: [address] [place] [address] Performed By: #### 5 7021-8 ####[facility]ORATORYCLIA [id number] [place] [address] [place] Erythrocyte distribution width (RBC) [Ratio] 12.7 % Normal 11.5-15.0 [facility] Comment on above: Order Comment: Speci men Type: BLOOD SPECIMENOrdering Facility: [facility] Address: [address] [place] [address] Performed By: #### 5 7021-8 ####[facility]ORATORYCLIA [id number] [place] [address] [place] Hematocrit (Bld) [Volume fraction] 46.0 % Normal 36.0-46.0 [facility] Comment on above: Order Comment: Speci men Type: BLOOD SPECIMENOrdering Facility: [facility] Address: [address] [place] [address] Performed By: #### 5 7021-8 ####[facility]ORATORYCLIA [id number] [place] [address] [place] Hemoglobin (Bld) [Mass/Vol] 15.2 g/dL Normal 11.5-15.5 [facility] Comment on above: Order Comment: Speci men Type: BLOOD SPECIMENOrdering Facility: [facility] Address: [address] [place] [address] Performed By: #### 5 7021-8 ####[facility]ORATORYCLIA [id number] [place] [address] [place] Immature granulocytes (Bld) [#/Vol] 0.04 10*3/uL Normal <0.10 [facility] Comment on above: Order Comment: Speci men Type: BLOOD SPECIMENOrdering Facility: [facility] Address: [address] [place] [address] Performed By: #### 5 7021-8 ####[facility]ORATORYCLIA [id number] [place] [address] [place] Immature granulocytes/100 WBC (Bld) 0.5 % Normal [facility] Comment on above: Order Comment: Speci men Type: BLOOD SPECIMENOrdering Facility: [facility] Address: [address] [place] [address] Performed By: #### 5 7021-8 ####[facility]ORATORYCLIA [id number] [place] [address] [place] Lymphocytes (Bld) [#/Vol] 2.20 10*3/uL Normal 1.00-4.00 [facility] Comment on above: Order Comment: Speci men Type: BLOOD SPECIMENOrdering Facility: [facility] Address: [address] [place] [address] Performed By: #### 5 7021-8 ####[facility]ORATORYCLIA [id number] [place] [address] [place] Lymphocytes/100 WBC (Bld) 28.7 % Normal [facility] Comment on above: Order Comment: Speci men Type: BLOOD SPECIMENOrdering Facility: [facility] Address: [address] [place] [address] Performed By: #### 5 7021-8 ####[facility]ORATORYCLIA [id number] [place] [address] [place] MCH (RBC) [Entitic mass] 31.9 pg Normal 26.0-34.0 [facility] Comment on above: Order Comment: Speci men Type: BLOOD SPECIMENOrdering Facility: [facility] Address: [address] [place] [address] Performed By: #### 5 7021-8 ####[facility] LABORATORYCLIA [id number] [address] [place] MCHC (RBC) [Mass/Vol] 33.0 g/dL Normal 30.5-36.0 [facility] Comment on above: Order Comment: Speci men Type: BLOOD SPECIMENOrdering Facility: [facility] Address: [address] [place] [address] Performed By: #### 5 7021-8 ####[facility]ORATORYCLIA [id number] [place] [address] [place] MCV (RBC) [Entitic vol] 96.6 fL Normal 80.0-100.0 [facility] Comment on above: Order Comment: Speci men Type: BLOOD SPECIMENOrdering Facility: [facility] Address: [address] [place] [address] Performed By: #### 5 7021-8 ####[facility]ORATORYCLIA [id number] [address] [place] Monocytes (Bld) [#/Vol] 1.25 10*3/uL High <0.87 [facility] Comment on above: Order Comment: Speci men Type: BLOOD SPECIMENOrdering Facility: [facility] Address: [address] [place] [address] Performed By: #### 5 7021-8 ####[facility]ORATORYCLIA [id number] [place] [address] [place] Monocytes/100 WBC (Bld) 16.3 % Normal [facility] Comment on above: Order Comment: Speci men Type: BLOOD SPECIMENOrdering Facility: [facility] Address: [address] [place] [address] Performed By: #### 5 7021-8 ####[facility]ORATORYCLIA [id number] [place] [address] [place] Neutrophils (Bld) [#/Vol] 4.00 10*3/uL Normal 1.45-7.50 [facility] Comment on above: Order Comment: Speci men Type: BLOOD SPECIMENOrdering Facility: [facility] Address: [address] [place] [address] Performed By: #### 5 7021-8 ####[facility]ORATORYCLIA [id number] [place] [address] [place] Neutrophils/100 WBC (Bld) 52.2 % Normal [facility] Comment on above: Order Comment: Speci men Type: BLOOD SPECIMENOrdering Facility: [facility] Address: [address] [place] [address] Performed By: #### 5 7021-8 ####[facility]ORATORYCLIA [id number] [place] [address] [place] Nucleated RBC (Bld) [#/Vol] 10*3/uL Normal <0.01 [facility] Comment on above: Order Comment: Speci men Type: BLOOD SPECIMENOrdering Facility: [facility] Address: [address] [place] [address] Performed By: #### 5 7021-8 ####[facility]ORATORYCLIA [id number] [place] [address] [place] Nucleated RBC/100 WBC (Bld) [Ratio] 0.0 /100 WBC Normal [facility] Comment on above: Order Comment: Speci men Type: BLOOD SPECIMENOrdering Facility: [facility] Address: [address] [place] [address] Performed By: #### 5 7021-8 ####[facility]ORATORYCLIA [id number] [place] [id number] [place] Platelet mean volume (Bld) [Entitic vol] 10.1 fL Normal 9.0-12.7 [facility] Comment on above: Order Comment: Speci men Type: BLOOD SPECIMENOrdering Facility: [facility] Address: [address] [place] [address] Performed By: #### 5 7021-8 ####[facility]ORATORYCLIA [id number] [place] [id number] [place] Platelets (Bld) [#/Vol] 232 10*3/uL Normal 150-400 [facility] Comment on above: Order Comment: Speci men Type: BLOOD SPECIMENOrdering Facility: [facility] Address: [address] [place] [address] Performed By: #### 5 7021-8 ####[facility]ORATORYCLIA [id number] [place] [address] [place] RBC (Bld) [#/Vol] 4.76 10*6/uL Normal 3.90-5.20 [facility] Comment on above: Order Comment: Speci men Type: BLOOD SPECIMENOrdering Facility: [facility] Address: [address] [place] [address] Performed By: #### 5 7021-8 ####[facility]ORATORYCLIA [id number] [place] [id number] [place] WBC (Bld) [#/Vol] 7.67 10*3/uL Normal 3.70-11.00 [facility] Comment on above: Order Comment: Speci men Type: BLOOD SPECIMENOrdering Facility: [facility] Address: [address] [place] [address] Performed By: #### 5 7021-8 ####[facility] LABORATORYCLIA [id number] [place] [address] [place] CT ABD/PEL W IVCONon 025 CT ABD/PEL W IVCON Normal [facility] CT BRAIN WO IVCONon 12-28-[address] BRAIN WO IVCON Normal [facility] Comprehensive metabolic 2000 panelon 12-27-2024 Albumin [Mass/Vol] 3.5 g/dL Normal 3.2-5.0 [facility] Comment on above: Order Comment: Speci men Type: BLOOD SPECIMENOrdering Facility: [facility] Address: [address] [place] [address] Performed By: #### 2 4323-8, 3040-3, 75240-3, HSTRSAWYER, 5643-2 ####[facility]ORATORYCLIA [id number] [place] [id number] [place] ALP [Catalytic activity/Vol] 66 U/L Normal 45-117 [facility] Comment on above: Order Comment: Speci men Type: BLOOD SPECIMENOrdering Facility: [facility] Address: [address] [place] [address] Performed By: #### 2 4323-8, 3040-3, 28675-7, HSTRSAWYER, 5643-2 ####[facility]ORATORYCLIA [id number] [place] [id number] [place] ALT [Catalytic activity/Vol] 20 U/L Normal 13-61 [facility] Comment on above: Order Comment: Speci men Type: BLOOD SPECIMENOrdering Facility: [facility] Address: [address] [place] [address] Result Comment: Resu lts may be falsely depressed after the administration of Sulfasalazine and/or Sulfapyridine. Performed By: #### 2 4323-8, 3040-3, 90363-0, HSTROP, 5643-2 ####[facility]ORATORYCLIA [id number] [place] [id number] [place] Anion gap [Moles/Vol] 9 mmol/L Normal 5-16 [facility] Comment on above: Order Comment: Speci men Type: BLOOD SPECIMENOrdering Facility: [facility] Address: [address] [place] [address] Performed By: #### 2 4323-8, 3040-3, 32895-0, HSTROP, 5643-2 ####[facility]ORATORYCLIA [id number] [place] [id number] [place] AST [Catalytic activity/Vol] Normal [facility] Comment on above: Order Comment: Speci men Type: BLOOD SPECIMENOrdering Facility: [facility] Address: [address] [place] [address] Result Comment: Unab le to assay due to interference from hemolysis. Suggest reorder as clinically indicated.Results may be falsely depressed after the administration of Sulfasalazine and/or Sulfapyridine. Performed By: #### 2 4323-8, 3040-3, 92883-9, HSTROP, 5643-2 ####[facility]ORATORYCLIA [id number] [place] [id number] [place] Bilirubin [Mass/Vol] 0.6 mg/dL Normal 0.2-1.0 [facility] Comment on above: Order Comment: Speci men Type: BLOOD SPECIMENOrdering Facility: [facility] Address: [address] [place] [address] Performed By: #### 2 4323-8, 3040-3, , HSTROP, 5643-2 ####[facility] LABORATORYCLIA [id number] [place] [id number] [place] Calcium [Mass/Vol] 9.4 mg/dL Normal 8.5-10.5 [facility] Comment on above: Order Comment: Speci men Type: BLOOD SPECIMENOrdering Facility: [facility] [facility] Address: [address] [place] [address] Performed By: #### 2 4323-8, 3040-3, 26223-9, HSTROP, 5643-2 ####[facility] LABORATORYCLIA [id number] [place] [id number] [place] Chloride [Moles/Vol] 103 mmol/L Normal 98-107 [facility] Comment on above: Order Comment: Speci men Type: BLOOD SPECIMENOrdering Facility: [facility] Address: [address] [place] [address] Performed By: #### 2 4323-8, 3040-3, 92479-8, HSTROP, 5643-2 ####[facility] LABORATORYCLIA [id number] [place] [address] [place] CO2 [Moles/Vol] 28 mmol/L Normal 21-32 [facility] Comment on above: Order Comment: Speci men Type: BLOOD SPECIMENOrdering Facility: [facility] Address: [address] [place] [address] Performed By: #### 2 4323-8, 3040-3, 82769-7, HSTROP, 5643-2 ####[facility] LABORATORYCLIA [id number] [place] [address] [place] Creatinine [Mass/Vol] Normal [facility] Comment on above: Order Comment: Speci men Type: BLOOD SPECIMENOrdering Facility: [facility] Address: [address] [place] [address] Result Comment: Unab le to assay due to interference from hemolysis. Suggest reorder as clinically indicated. Performed By: #### 2 4323-8, 3040-3, 93892-8, HSTROP, 5643-2 ####[facility] LABORATORYCLIA [id number] [place] [address] [place] Creatinine and Glomerular filtration rate.predicted panel (S/P/Bld) Normal [facility] Comment on above: Order Comment: Speci men Type: BLOOD SPECIMENOrdering Facility: [facility] Address: [address] [place] [address] Result Comment: Chrissy mated Glomerular Filtration Rate [...] GFR. Performed By: #### 2 4323-8, 3040-3, 83323-6, HSTRSAWYER, 5643-2 ####[facility] LABORATORYCLIA [id number] [place] [id number] [place] Glucose [Mass/Vol] 100 mg/dL Normal 70-100 [facility] Comment on above: Order Comment: Specpatrice ramos Type: BLOOD SPECIMENOrdering Facility: [facility] Address: [address] [place] [address] Result Comment: [place] Diabetes Association (ADA) provides guidance for cutoff [...] Standards of Medical Care in Diabetes 2016, [place] Diabetes Association. Diabetes Care. 2016.39(Suppl 1).Results may be falsely elevated after the administration of Sulfapyridine.Results may be falsely depressed after the administration of Sulfasalazine. Performed By: #### 2 4323-8, 3040-3, 29578-0, HSTRSAWYER, 5643-2 ####[facility] LABORATORYCLIA [id number] [place] [address] [place] Potassium [Moles/Vol] Normal [facility] Comment on above: Order Comment: Syd ramos Type: BLOOD SPECIMENOrdering Facility: [facility] Address: [address] [place] [address] Result Comment: Unab le to assay due to interference from hemolysis. Suggest reorder as clinically indicated. Performed By: #### 2 4323-8, 3040-3, 33954-8, HSTRSAWYER, 5643-2 ####[facility]ORATORYCLIA [id number] [place] [address] [place] Protein [Mass/Vol] 7.2 g/dL Normal 6.0-8.5 [facility] Comment on above: Order Comment: Speci men Type: BLOOD SPECIMENOrdering Facility: [facility] Address: [address] [place] [address] Performed By: #### 2 4323-8, 3040-3, 85246-9, HSTROP, 5643-2 ####[facility]ORATORYCLIA [id number] [place] [address] [place] Sodium [Moles/Vol] 140 mmol/L Normal 136-145 [facility] Comment on above: Order Comment: Speci men Type: BLOOD SPECIMENOrdering Facility: [facility] Address: [address] [place] [address] Performed By: #### 2 4323-8, 3040-3, 44361-8, HSTROP, 5643-2 ####[facility]ORATORYCLIA [id number] [place] [address] [place] Urea nitrogen [Mass/Vol] Normal [facility] Comment on above: Order Comment: Speci men Type: BLOOD SPECIMENOrdering Facility: [facility] Address: [address] [place] [address] Result Comment: Unab le to assay due to interference from hemolysis. Suggest reorder as clinically indicated. Performed By: #### 2 4323-8, 3040-3, 91282-3, HSTROP, 5643-2 ####[facility]ORATORYCLIA [id number] [place] [address] [place] Creatinine + eGFR Pnl SerPlB ldon 12-27-2024 Creatinine and Glomerular filtration rate.predicted panel (S/P/Bld) 109 mL/min/1.73m??? Normal >=60 [facility] Comment on above: Order Comment: Speci men Type: BLOOD SPECIMENOrdering Facility: [facility] Address: [address] [place] [address] Result Comment: Chrissy mated Glomerular Filtration Rate [...] Performed By: #### 1 920-8, 3094-0, K1, 17058-3 ####[facility]ORATORYCLIA [id number] [address] Creatinine and Glomerular fi ltration rate.predicted panel (S/P/Bld)on 12-27-2024 Creatinine [Mass/Vol] 0.66 mg/dL Normal 0.51-0.95 [facility] Comment on above: Order Comment: Speci men Type: BLOOD SPECIMENOrdering Facility: [facility] Address: [address] [place] [address] Result Comment: Marilin ents receiving either N-Acetylcysteine (NAC) or Metamizole prior to venipuncture, may have falsely depressed results. Performed By: #### 1 920-8, 3094-0, K1, 59921-5 ####[facility]ORATORYCLIA [id number] [address] [place] ECG COMPLETEon 12-27-2024 ECG COMPLETE Normal [facility] ED NOTEon 12-27-2024 ED NOTE HNO ID: [id number] Author: SONYA AYALA, Medic Service: ? Author Type: Child Nurse and Sales Service Route Manager Type: ED Notes Filed: 12/27/2024 14:38 Note Text: Bed: 01-ED Expected date: Expected time: Means of arrival: Comments: ems Normal [facility] ED PROV NOTEon 12-27-2024 ED PROV NOTE Normal [facility] Ethanol SerPl-mCncon 025 Ethanol [Mass/Vol] mg/dL Normal <0.010 [facility] Comment on above: Order Comment: Speci men Type: BLOOD SPECIMENOrdering Facility: [facility] Address: [address] [place] [address] Performed By: #### 2 4323-8, 3040-3, 97993-3, HSTROP, 5643-2 ####[facility]ORATORYCLIA [id number] [place] [address] [place] HIGH SENSITIVITY TROPONIN Io n 12-27-2024 Tropinin I.cardiac panel High sensitivity method <2.5 Normal 0.0-34.0 [facility] Comment on above: Order Comment: Speci men Type: BLOOD SPECIMENOrdering Facility: [facility] Address: [address] [place] [address] Performed By: #### 2 4323-8, 3040-3, , HSTROP, 5643-2 ####[facility] LABORATORYCLIA [id number] [address] STATES [facility] HISTORY PHYSICALon 5 HISTORY PHYSICAL Normal [facility] Lipase SerPl-cCncon 12-28-19 25 Lipase [Catalytic activity/Vol] Normal [facility] Comment on above: Order Comment: Speci men Type: BLOOD SPECIMENOrdering Facility: [facility] Address: [address] [place] [address] Result Comment: Unab le to assay due to interference from hemolysis. Suggest reorder as clinically indicated. Performed By: #### 2 4323-8, 3040-3, 99183-4, HSTROP, 5643-2 ####[facility]ATORYCLIA [id number] [place] [address] [place] Magnesium SerPl-mCncon 12-27 Magnesium [Mass/Vol] 2.1 mg/dL Normal 1.6-2.6 [facility] Comment on above: Order Comment: Speci men Type: BLOOD SPECIMENOrdering Facility: [facility] Address: [address] [place] [address] Performed By: #### 2 4323-8, 3040-3, 15235-7, HSTROP, 5643-2 ####[facility]ORATORYCLIA [id number] [place] [address] [place] POTASSIUMon 12-27-2024 Potassium [Moles/Vol] 4.1 mmol/L Normal 3.5-5.1 [facility] Comment on above: Order Comment: Speci men Type: BLOOD SPECIMENOrdering Facility: [facility] Address: [address] [place] [address] Performed By: #### 1 920-8, 3094-0, K1, 34805-3 ####[facility]ORATORYCLIA [id number] [address] Urinalysis complete panel (U )on 12-27-2024 Bacteria LM.HPF (Urine sed) [#/Area] None Seen Normal None Seen [facility] Comment on above: Order Comment: Speci men Type: URINE SPECIMENOrdering Facility: [facility] Address: [address] [place] [address] Performed By: #### 2 4356-8 ####[facility]ORATORYCLIA [id number] [place] [address] [place] Bilirubin Ql (U) Negative Normal Negative [facility] Comment on above: Order Comment: Speci men Type: URINE SPECIMENOrdering Facility: [facility] Address: [address] [place] [address] Performed By: #### 2 4356-8 ####[facility]ORATORYCLIA [id number] [address] [place] Clarity (Unsp spec) Clear Normal Clear [facility] Comment on above: Order Comment: Speci men Type: URINE SPECIMENOrdering Facility: [facility] Address: [address] [place] [address] Performed By: #### 2 4356-8 ####[facility]ORATORYCLIA [id number] [address] [place] Color (U) Earlene Abnormal Yellow [facility] Comment on above: Order Comment: Speci men Type: URINE SPECIMENOrdering Facility: [facility] Address: [address] [place] [address] Performed By: #### 2 4356-8 ####[facility]ORATORYCLIA [id number] [address] [place] Epithelial cells LM.HPF (Urine sed) [#/Area] Few Normal [facility] Comment on above: Order Comment: Speci men Type: URINE SPECIMENOrdering Facility: [facility] Address: [address] [place] [address] Performed By: #### 2 4356-8 ####[facility]ORATORYCLIA [id number] [address] [place] Glucose Test strip (U) [Mass/Vol] Negative Normal Negative [facility] Comment on above: Order Comment: Speci men Type: URINE SPECIMENOrdering Facility: [facility] Address: [address] [place] [address] Performed By: #### 2 4356-8 ####[facility]ORATORYCLIA [id number] [place] [address] [place] Hemoglobin Ql (U) Negative Normal Negative [facility] Comment on above: Order Comment: Speci men Type: URINE SPECIMENOrdering Facility: [facility] Address: [address] [place] [address] Performed By: #### 2 4356-8 ####[facility]ATORYCLIA [id number] [address] [place] Ketones Ql (U) Trace Abnormal Negative [facility] Comment on above: Order Comment: Speci men Type: URINE SPECIMENOrdering Facility: [facility] Address: [address] [place] [address] Performed By: #### 2 4356-8 ####[facility]ORATORYCLIA [id number] [place] [address] [place] Leukocyte esterase Test strip Ql (U) Negative Normal Negative [facility] Comment on above: Order Comment: Speci men Type: URINE SPECIMENOrdering Facility: [facility] Address: [address] [place] [address] Performed By: #### 2 4356-8 ####[facility]ORATORYCLIA [id number] [place] [address] [place] Nitrite Ql (U) Negative Normal Negative [facility] Comment on above: Order Comment: Speci men Type: URINE SPECIMENOrdering Facility: [facility] Address: [address] [place] [address] Performed By: #### 2 4356-8 ####[facility]ORATORYCLIA [id number] [address] [place] pH (U) 6.0 [pH] Normal 5.0-8.0 [facility] Comment on above: Order Comment: Speci men Type: URINE SPECIMENOrdering Facility: [facility] Address: [address] [place] [address] Performed By: #### 2 4356-8 ####[facility]ORATORYCLIA [id number] [address] Protein (U) [Mass/Vol] 1+ Abnormal Negative [facility] Comment on above: Order Comment: Speci men Type: URINE SPECIMENOrdering Facility: [facility] Address: [address] [place] [address] Performed By: #### 2 4356-8 ####[facility]ORATORYCLIA [id number] [place] [address] [place] RBC LM.HPF (Urine sed) [#/Area] 0-3 /HPF Normal 0-3 /HPF [facility] Comment on above: Order Comment: Speci men Type: URINE SPECIMENOrdering Facility: [facility] Address: [address] [place] [address] Performed By: #### 2 4356-8 ####[facility]ORATORYCLIA [id number] [place] [id number] [place] Specific gravity (U) [Rel density] 1.024 Normal 1.005-1.03 0 [facility] Comment on above: Order Comment: Speci men Type: URINE SPECIMENOrdering Facility: [facility] Address: [address] [place] [address] Performed By: #### 2 4356-8 ####[facility]ORATORYCLIA [id number] [address] Urobilinogen Ql (U) 2+ Abnormal Negative [facility] Comment on above: Order Comment: Speci men Type: URINE SPECIMENOrdering Facility: [facility] Address: [address] [place] [address] Performed By: #### 2 4356-8 ####[facility]ORATORYCLIA [id number] [address] WBC LM.HPF (Urine sed) [#/Area] 0-5 /HPF Normal 0-5 /HPF [facility] Comment on above: Order Comment: Speci men Type: URINE SPECIMENOrdering Facility: [facility] Address: [address] [place] [address] Performed By: #### 2 4356-8 ####[facility]ORATORYCLIA [id number] [place] [id number] [facility] Urine Cultureon 12-27-2024 URC Below infection leve l. Mixed Gram Pos Gram Neg Org [place] Count 1000-10,000 MIXC Mixed contaminants. Submit a new specimen if indicated. Normal [facility] Comment on above: Performed By: #### M 100.2200 #### [facility] Laboratory [address] [place], [address] Valproate [facility] 12-27 Valproate [Mass/Vol] 16.6 ug/mL Low 50.0-100.0 [facility] Comment on above: Order Comment: Speci men Type: BLOOD SPECIMENOrdering Facility: [facility] Address: [address] [place] [address] Result Comment: Refe rence ranges and high/low indicator flags are provided as general guidelines only. The treating physician must determine appropriate target levels/dosing based on the specific clinical situation. Performed By: #### 4 086-5 ####[facility] LABORATORYCLIA [id number] [place] [id number] [place] [facility] 12 Lead EKGon 12-25-2024 12 Lead EKG [facility] Cardi[facility] Services [address] [place] [address] 12 Lead EKG 12/25/24 1323 MR#: [id number] Acct: [id number] Name: SHARLA JOINER Rep #: [id number] : 1975 49 From: Luci Lara MD [...] : 392 ms Sinus rhythm with short [place] Otherwise normal ECG Baseline artifact Confirmed by Luci Lara ([id number]), editor trade journal [employer] ([id number]) on 12/27/2024 6:10:43 AM Referred By: Confirmed By: Luci Lara 12/27/2410 Date Luci Lara MD CC: Dr. Desirae Rosario MD; Dr. Quincy Clarke DO Signed Normal [facility] Absolute lymphocyte countOrd ered By: Quincy Clarke on 12-25-2024 Lymphocytes Auto (Unsp spec) [#/Vol] 2.63 10*3/uL 0.83-4.51 [facility] Absolute neutrophil countOrd ered By: Quincy Clarke on 12-25-2024 Neutrophils (Bld) [#/Vol] 3.3 10*3/uL 2.0-7.7 [facility] Amorphous sediment detection in urine sediment by light microscopyOrdered By: Quincy Clarke on 12-25-2024 Amorphous sediment LM Ql (Urine sed) 3+ [facility] Anion gap in Serum or Plasma Ordered By: Quincy Clarke on 12-25-2024 Anion gap [Moles/Vol] 10 mmol/L 5-15 [facility] Automated lymphocyte count a s percentage of total leukocytesOrdered By: Quincy Clarke on 12-25-2024 Lymphocytes/100 WBC Auto (Unsp spec) 36.3 % 19-41 [facility] BUN/creatinine ratioOrdered By: Quincy Clarke on 12-25-2024 Urea nitrogen/Creatinine [Mass ratio] 22.9 mg/mg High 10- [facility] Basophil percentageOrdered B y: Quincy Clarke on 12-25-2024 Basophils/100 WBC (Bld) 0.6 % 0-1 [facility] Bilirubin Test strip Ql (U)O rdered By: Quincy Clarke on 12-25-2024 Bilirubin Ql (U) Negative Negative [facility] Bilirubin, totalOrdered By: Quincy Clarke on 12-25-2024 Bilirubin [Mass/Vol] 0.40 mg/dL 0.00-1.30 [facility] Brain/Head without Contrasto n 12-25-2024 Brain/Head without Contrast [facility] Imaging Services [address] [place] [address] Brain/Head without Contrast MR#: [id number] Acct: [id number] Name: SHARLA JOINER Rep #: [id number] : 1975 F 49 From: Jesus Manuel riggs MD PCP: Abby Carrillo MD Status: PRE ER Study: Brain/Head without Contrast Date of Exam: 12/16 Exam# [id number] Ordering Dr: Quincy Clarke DO PROCEDURE: BRAIN/HEAD [...] temporal lobes. Hyperostosis frontalis interna. Reading Location: [place] [address] CC: Abby Carrillo MD; Dr. Quincy Clarke DO Applied Technologist: Signed Normal [facility] CBC W/Diff, Automatedon 12-16-2024 Absolute Lymph 2.63 X10 3/uL Normal 0.83-4.51 [facility] Comment on above: Performed By: #### L 500.4050, L100.0100 #### [facility] Laboratory [address] [place], [address] Absolute Neut 3.3 X10 3/uL Normal 2.0-7.7 [facility] Comment on above: Performed By: #### L 500.4050, L100.0100 #### [facility] [address] [place], [address] Basophils/100 WBC (Bld) 0.6 % Normal 0-1 [facility] Comment on above: Performed By: #### L 500.4050, L100.0100 #### [facility] [address] [place], [address] Eosinophils/100 WBC (Bld) 1.7 % Normal 0-5 [facility] Comment on above: Performed By: #### L 500.4050, L100.0100 #### [facility] [address] [place], [address] Erythrocyte distribution width (RBC) [Ratio] 13.1 % Normal 11.6-14.6 [facility] Comment on above: Performed By: #### L 500.4050, L100.0100 #### [facility] [address] [place], [address] Hematocrit (Bld) [Volume fraction] 43.7 % Normal 37-47 [facility] Comment on above: Performed By: #### L 500.4050, L100.0100 #### [facility] [address] [place], [address] Hemoglobin (Bld) [Mass/Vol] 14.3 g/dL Normal 12.0-15.0 [facility] Comment on above: Performed By: #### L 500.4050, L100.0100 #### [facility] [address] [place], [address] IG% 0.300 Normal 0.0-0.9 [facility] Comment on above: Result Comment: IG% - Immature Granulocytes (promyelocytes, myelocytes and metamyelocytes) > 1% indicates that a LEFT SHIFT is Present. Performed By: #### L 500.4050, L100.0100 #### [facility] [address] [place], [address] Lymphocytes/100 WBC (Bld) 36.3 % Normal 19-41 [facility] Comment on above: Performed By: #### L 500.4050, L100.0100 #### [facility] [address] [place], [address] MCH (RBC) [Entitic mass] 31.7 pg Normal 27.0-32.0 [facility] Comment on above: Performed By: #### L 500.4050, L100.0100 #### [facility] [address] [place], [address] MCHC (RBC) [Mass/Vol] 32.7 g/dL Normal 32-36 [facility] Comment on above: Performed By: #### L 500.4050, L100.0100 #### [facility] [address] [place], [address] MCV (RBC) [Entitic vol] 96.9 fL Normal 81-99 [facility] Comment on above: Performed By: #### L 500.4050, L100.0100 #### [facility] [address] [place], [address] Monocytes/100 WBC (Bld) 16.3 % High 0-10 [facility] Comment on above: Performed By: #### L 500.4050, L100.0100 #### [facility] [address] [place], [address] Neutrophils/100 WBC (Bld) 44.8 % Low 47-70 [facility] Comment on above: Performed By: #### L 500.4050, L100.0100 #### [facility] [address] [place], [address] Nucleated RBC (Bld) [#/Vol] 0 10*3/uL Normal 0-5 [facility] Comment on above: Performed By: #### L 500.4050, L100.0100 #### [facility] [address] [place], [address] Platelet mean volume (Bld) [Entitic vol] 9.8 fL Normal 6.2-12.0 [facility] Comment on above: Performed By: #### L 500.4050, L100.0100 #### [facility] [address] [place], [address] Platelets (Bld) [#/Vol] 198 10*3/uL Normal 150-450 [facility] Comment on above: Performed By: #### L 500.4050, L100.0100 #### [facility] [address] [place], [address] RBC (Bld) [#/Vol] 4.51 10*6/uL Normal 4.2-5.4 [facility] Comment on above: Performed By: #### L 500.4050, L100.0100 #### [facility] [address] [place], [address] RDW SD 46.7 fl High 35.1-43.9 [facility] Comment on above: Performed By: #### L 500.4050, L100.0100 #### [facility] [address] [place], [address] WBC (Bld) [#/Vol] 7.3 10*3/uL Normal 4.4-11.0 [facility] Comment on above: Performed By: #### L 500.4050, L100.0100 #### [facility] [address] [place], [address] Carbon dioxide, total [Moles /volume] in Central venous bloodOrdered By: Quincy Clarke on 12-25-2024 CO2 [Moles/Vol] 22.1 mmol/L 21.0-32.0 [facility] Chest 1 View (Portable)on Chest 1 View (Portable) [facility] Imaging Services [address] [place] [address] Chest 1 View (Portable) MR#: [id number] Acct: [id number] Name: SHARLA JOINER Rep #: [id number] : 1975 F 49 From: Jesus Manuel riggs MD PCP: Abby Carrillo MD Status: PRE ER Study: Chest 1 View (Portable) Date of Exam: 12/25/24 Exam# [id number] Ordering Dr: Quincy Clarke DO PROCEDURE: CHEST 1 VIEW (PORTABLE) 12/25/2024 REASON FOR EXAM: ALTERED MENTAL STATUS TECHNIQUE: Frontal view of the chest. COMPARISON: None FINDINGS: Hardware: EKG electrodes are seen. Heart: The heart is nonenlarged. Lungs: Lungs are clear. Bones: The bones are unremarkable. Other: RAD/Chest 1 View (Portable) IMPRESSION: No Acute Findings. Reading Location: [place] [address] CC: Abby Carrillo MD; Dr. Quincy Clarke DO Applied Technologist: Signed Normal [facility] Chloride assayOrdered By: José Antonio Clarke on 12-25-2024 Chloride [Moles/Vol] 109 mmol/L High 98-108 [facility] ilon 12-25-2024 Albumin [Mass/Vol] 3.8 g/dL Normal 3.5-5.0 [facility] Comment on above: Performed By: #### L 500.4050, L100.0100 ####[facility] [address] [place], [address] Albumin/Globulin [Mass ratio] 1.2 {ratio} Normal 0.9-2.4 [facility] Comment on above: Performed By: #### L 500.4050, L100.0100 ####[facility] [address] [place], [address] ALK PHOS 60 U/L Normal 35-104 [facility] Comment on above: Performed By: #### L 500.4050, L100.0100 ####[facility] [address] [place], [address] ALT [Catalytic activity/Vol] 17 U/L Normal <=34 [facility] Comment on above: Result Comment: Hemo lysis present, Results??could be affected. ?? Performed By: #### L 500.4050, L100.0100 ####[facility] [address] [place], [address] AST [Catalytic activity/Vol] 46 U/L High <=31 [facility] Comment on above: Result Comment: Hemo lysis present, Results??could be affected. ?? Performed By: #### L 500.4050, L100.0100 ####[facility] [address] [place], [address] Bilirubin [Mass/Vol] 0.40 mg/dL Normal 0.00-1.30 [facility] Comment on above: Performed By: #### L 500.4050, L100.0100 ####[facility] [address] [place], [address] BUN/CRE 22.9 RATIO High 10-20 [facility] Comment on above: Performed By: #### L 500.4050, L100.0100 ####[facility] [address] [place], [address] Calcium [Mass/Vol] 9.6 mg/dL Normal 7.6-11.0 [facility] Comment on above: Performed By: #### L 500.4050, L100.0100 ####[facility] [address] [place], [address] Chloride [Moles/Vol] 109 mmol/L High 98-108 [facility] Comment on above: Performed By: #### L 500.4050, L100.0100 ####[facility] [address] [place], [address] CO2 [Moles/Vol] 22.1 mmol/L Normal 21.0-32.0 [facility] Comment on above: Performed By: #### L 500.4050, L100.0100 ####[facility] [address] [place], [address] Creatinine [Mass/Vol] 0.68 mg/dL Low 0.70-1.20 [facility] Comment on above: Performed By: #### L 500.4050, L100.0100 ####[facility] [address] [place], [address] ECRCL 99.46 ml/min Normal 50-250 [facility] Comment on above: Performed By: #### L 500.4050, L100.0100 ####[facility] [address] [place], [address] GAP 10 Normal 5-15 [facility] Comment on above: Performed By: #### L 500.4050, L100.0100 ####[facility] [address] [place], [address] GFR/1.73 sq M.predicted among non-blacks MDRD (S/P/Bld) [Vol rate/Area] 108 mL/min/{1.73_m2} Normal >60 [facility] Comment on above: Result Comment: mL/m in/1.73m2 CKD-EPI Creatinine Equation (2020) Performed By: #### L 500.4050, L100.0100 ####[facility] [address] [place], [address] Globulin (S) [Mass/Vol] 3.1 g/dL Normal 2.2-4.2 [facility] Comment on above: Performed By: #### L 500.4050, L100.0100 ####[facility] [address] [place], [address] Glucose [Mass/Vol] 84 mg/dL Normal 70-99 [facility] Comment on above: Performed By: #### L 500.4050, L100.0100 ####[facility] [address] [place], [address] Potassium [Moles/Vol] 4.9 mmol/L Normal 3.3-5.1 [facility] Comment on above: Result Comment: Hemo lysis present, Results??could be affected. ?? Performed By: #### L 500.4050, L100.0100 ####[facility] [address] [place], [address] Sodium [Moles/Vol] 142 mmol/L Normal 133-145 [facility] Comment on above: Performed By: #### L 500.4050, L100.0100 ####[facility] [address] [place], [address] T PROT 6.9 g/dL Normal 5.9-8.4 [facility] Comment on above: Performed By: #### L 500.4050, L100.0100 ####[facility] [address] [place], [address] Urea nitrogen [Mass/Vol] 16 mg/dL Normal 4-19 [facility] Comment on above: Performed By: #### L 500.4050, L100.0100 ####[facility] [address] [place], [address] Emergency Department Summary on 12-25-2024 Emergency Department Summary [facility] Medical Records Department [address] [place] [address] Emergency Department Summary 12/25/24 MR#: [id number] Acct: [id number] Name: SHARLA JOINER Rep #: [id number] : 1975 49 From: Quincy Rocha PCP: Dr. Desirae Rosario MD Status:DEP ER Location: ED HPI History of Present Illness Chief Complaint: Mental Status Change Informant: parent Narrative Narrative: Patient sent by EMS from [facility] for increasing altered mental status. History of bipolar, autism, parents are present states function no was [place] [facility] [place]. Parent states on of last month went to urgent care for nausea was put on Zofran. The following day follow-up with PCP decompensation on that day was sent to the emergency department. Patient admitted at [facility] on the discharged 5 days ago little [...] not perform this. She was [facility]. They report physical therapy was working with her she would take a couple steps if she is sitting in a chair at the facility. She seemed to start to improve prior to transfer to [facility] facility. Today reported at breakfast she may have choked on eggs. She had worsening mental status while there. She was sent in here by practitioner there for potential stroke. Parents reports she was not her normal baseline when she was discharged to [facility] facility. There has been no cough. Prior [...] upper extremit (more content not included)... Normal [facility] Eosinophil percentageOrdered By: Quincy Clarke on 12-25-2024 Eosinophils/100 WBC (Bld) 1.7 % 0-5 [facility] Erythrocyte distribution wid th ratioOrdered By: Quincy Clarke on 12-25-2024 Erythrocyte distribution width (RBC) [Ratio] 13.1 % 11.6-14.6 [facility] Erythrocyte distribution wid th standard deviationOrdered By: Quincy Clarke on 12-25-2024 Erythrocyte distribution width (RBC) [Ratio] 46.7 fl High 35.1-43.9 [facility] Glomerular filtration rate ( GFR) estimation/1.73 sq m using serum, plasma, or whole bOrdered By: Quincy Clarke on 12-25-2024 GFR/1.73 sq M.predicted among non-blacks MDRD (S/P/Bld) [Vol rate/Area] 108 mL/min/{1.73_m2} >60 [facility] Comment on above: mL/min/1.73m2 CKD-EP I Creatinine Equation (2020) Hematocrit Auto (Bld) [Volum e fraction]Ordered By: Quincy Clarke on 12-25-2024 Hematocrit (Bld) [Volume fraction] 43.7 % 37-47 [facility] Hemoglobin measurementOrdere d By: Quincy Clarke on 12-25-2024 Hemoglobin (Bld) [Mass/Vol] 14.3 g/dL 12.0-15.0 [facility] Immature granulocytes/100 WB C Auto (Bld)Ordered By: Quincy Clarke on 12-25-2024 Immature granulocytes/100 WBC (Bld) 0.300 % 0.0-0.9 [facility] Comment on above: IG% - Immature Granu locytes (promyelocytes, myelocytes and metamyelocytes) > 1% indicates that a LEFT SHIFT is Present. Ketones Test strip Ql (U)Ord ered By: Quincy Clarke on 12-25-2024 Ketones Ql (U) 5 mg/dl High Negative [facility] Laboratory - Chemistry and C hemistry - challengeOrdered By: Quincy Clarke on 12-25-2024 AST [Catalytic activity/Vol] 46 U/L High <32 [facility] Comment on above: Hemolysis present, R esults could be affected. MCV (mean corpuscular volume ) determinationOrdered By: Quincy Clarke on 12-25-2024 MCV (RBC) [Entitic vol] 96.9 fL 81-99 [facility] Mean corpuscular hemoglobin (MCH) determinationOrdered By: Quincy Clarke on 12-25-2024 MCH (RBC) [Entitic mass] 31.7 pg 27.0-32.0 [facility] Mean corpuscular hemoglobin concentration (MCHC) determinationOrdered By: Quincy Clarke on 12-25-2024 MCHC (RBC) [Mass/Vol] 32.7 g/dL 32-36 [facility] Mean platelet volume determi nationOrdered By: Quincy Clarke on 12-25-2024 Platelet mean volume (Bld) [Entitic vol] 9.8 fL 6.2-12.0 [facility] Microscopic analysis of urin e for red blood cells (RBC)Ordered By: Quincy Clarke on 12-25-2024 Microscopic analysis of urine for red blood cells (RBC) 0-5 SEEN /hpf 0-5 [facility] Monocyte percentageOrdered B y: Quincy Clarke on 12-25-2024 Monocytes/100 WBC (Bld) 16.3 % High 0-10 [facility] Mucus LM Ql (Urine sed)Order ed By: Quincy Clarke on 12-25-2024 Mucus Ql (Urine sed) 0 SEEN /hpf [facility] Neutrophil percentageOrdered By: Quincy Clarke on 12-25-2024 Neutrophils/100 WBC (Bld) 44.8 % Low 47-70 [facility] Nitrite Test strip Ql (U)Ord ered By: Quincy Clarke on 12-25-2024 Nitrite Ql (U) Negative Negative [facility] Nucleated red blood cell per centageOrdered By: Quincy Clarke on 12-25-2024 Nucleated RBC/100 WBC (Bld) [Ratio] 0 % 0-5 [facility] Platelet countOrdered By: José Antonio caro Clarke on 12-25-2024 Platelets (Bld) [#/Vol] 198 10*3/uL 150-450 [facility] Potassium measurement (mass/ volume)Ordered By: Quincy Clarke on 12-25-2024 Potassium (Unsp spec) [Mass/Vol] 4.9 mmol/L 3.3-5.1 [facility] Comment on above: Hemolysis present, R esults could be affected. Protein Test strip Ql (U)Ord ered By: Quincy Clarke on 12-25-2024 Protein Ql (U) 30 mg/dl High Negative [facility] RBC Auto (Bld) [#/Vol]Ordere d By: Quincy Clarke on 12-25-2024 RBC (Bld) [#/Vol] 4.51 10*6/uL 4.2-5.4 [facility] Serum creatinine measurement (mass/volume)Ordered By: Quincy Clarke on 12-25-2024 Creatinine [Mass/Vol] 0.68 mg/dL Low 0.70-1.20 [facility] Serum globulin measurementOr dered By: Quincy Clarke on 12-25-2024 Globulin (S) [Mass/Vol] 3.1 g/dL 2.2-4.2 [facility] Serum glucose measurement (m ass/volume)Ordered By: Quincy Clarke on 12-25-2024 Glucose [Mass/Vol] 84 mg/dL 70-99 [facility] Serum or plasma alanine perea otransferase (ALT) measurementOrdered By: Quincy Clarke on 12-25-2024 ALT [Catalytic activity/Vol] 17 U/L <35 [facility] Comment on above: Hemolysis present, R esults could be affected. Serum or plasma albumin mikie urement (mass/volume)Ordered By: Quincy Clarke on 12-25-2024 Albumin [Mass/Vol] 3.8 g/dL 3.5-5.0 [facility] Serum or plasma albumin/glob ulin mass ratioOrdered By: Quincy Clarke on 12-25-2024 Albumin/Globulin [Mass ratio] 1.2 {ratio} 0.9-2.4 [facility] Serum or plasma alkaline evelyn sphatase measurementOrdered By: Quincy Clarke on 12-25-2024 ALP [Catalytic activity/Vol] 60 U/L 35-104 [facility] Serum or plasma calcium mikie urement (mass/volume)Ordered By: Quincy Clarke on 12-25-2024 Calcium [Mass/Vol] 9.6 mg/dL 7.6-11.0 [facility] Serum or plasma urea nitroge n measurement (mass/volume)Ordered By: Quincy Clarke on 12-25-2024 Urea nitrogen [Mass/Vol] 16 mg/dL 4-19 [facility] Sodium levelOrdered By: Quincy Clarke on 12-25-2024 Sodium [Moles/Vol] 142 mmol/L 133-145 [facility] Squamous epithelial cells de tection in urine sediment by light microscopyOrdered By: Quincy Clarke on 12-25-2024 Epithelial cells.squamous LM Ql (Urine sed) 0-5 SEEN /hpf 5-10 [facility] Total proteinOrdered By: Romelia Clarke on 12-25-2024 Protein [Mass/Vol] 6.9 g/dL 5.9-8.4 [facility] Transitional cells detection in urine sediment by light microscopyOrdered By: Quincy Clarke on 12-25-2024 Transitional cells LM Ql (Urine sed) 0-5 SEEN /hpf 0-5 [facility] Urinalysis, Completeon 12-25 AMORPHOUS 3+ Normal [facility] Comment on above: Order Comment: COLLE CTOR TO SPECIFY Performed By: #### L 400.0001 #### [facility] Laboratory [address] [place], [address] BACTERIA 2+ /hpf Normal None Seen [facility] Comment on above: Order Comment: PAULO CTOR TO SPECIFY Performed By: #### L 400.0001 #### [facility] [address] [place], [address] EPI,SQUAMOUS 0-5 SEEN Normal 5-10 [facility] Comment on above: Order Comment: PAULO CTOR TO SPECIFY Performed By: #### L 400.0001 #### [facility] [address] [place], [address] EPI,TRANSITION 0-5 SEEN Normal 0-5 [facility] Comment on above: Order Comment: PAULO CTOR TO SPECIFY Performed By: #### L 400.0001 #### [facility] [address] [place], [address] RBC 0-5 SEEN Normal 0-5 [facility] Comment on above: Order Comment: PAULO CTOR TO SPECIFY Performed By: #### L 400.0001 #### [facility] [address] [place], [address] WBC 10-25 SEEN Normal 0-5 [facility] Comment on above: Order Comment: PAULO CTOR TO SPECIFY Performed By: #### L 400.0001 #### [facility] [address] [place], [address] Mucus Ql (Urine sed) 0 SEEN Normal [facility] Comment on above: Order Comment: PAULO CTOR TO SPECIFY Performed By: #### L 400.0001 #### [facility] [address] [place], [address] Urine clarityOrdered By: Romelia Clarke on 12-25-2024 Clarity (U) Cloudy Clear [facility] Urine color determinationOrd ered By: Quincy Clarke on 12-25-2024 Color (U) Yellow Yellow [facility] Urine cultureOrdered By: Romelia Clarke on 12-25-2024 Bacteria identified Cx Nom (U) Mixed Gram Pos & Gram Neg Org Abnormal [facility] Urine glucose detectionOrder ed By: Quincy Clarke on 12-25-2024 Glucose Ql (U) Normal mg/dl Normal [facility] Urine leukocyte esterase det ection by dipstickOrdered By: Quincy Clarke on 12-25-2024 Leukocyte esterase Test strip Ql (U) 100 /ul High Negative [facility] Urine pHOrdered By: Quincy Clarke on 12-25-2024 pH (U) 7.0 [pH] 5.0 - 8.0 [facility] Urine sediment bacteria coun t by microscopy (number/high power field)Ordered By: Quincy Clarke on 12-25-2024 Bacteria LM.HPF (Urine sed) [#/Area] 2 /[HPF] None Seen [facility] Urine specific gravity measu rementOrdered By: Quincy Clarke on 12-25-2024 Specific gravity (U) [Rel density] 1.015 1.002-1.03 0 [facility] Urine urobilinogen measureme ntOrdered By: Quincy Clarke on 12-25-2024 Urobilinogen Ql (U) 8 mg/dl High Normal [facility] White blood cell (WBC) count Ordered By: Quincy Clarke on 12-25-2024 WBC (Bld) [#/Vol] 7.3 10*3/uL 4.4-11.0 [facility] White blood cell countOrdere d By: Quincy Clarke on 12-25-2024 White blood cell count 10-25 SEEN /hpf 0-5 [facility] CASE MANAGEMon 12-20-2024 CASE MANAGEM [facility] CASE MANAGEM [facility] CNDSon 12-20-2024 CNDS [facility] CBC W Auto Differential pane l (Bld)on 12-19-2024 Basophils (Bld) [#/Vol] 0.04 10*3/uL Normal <0.11 [facility] Comment on above: Order Comment: Speci men Type: BLOOD SPECIMENOrdering Facility: [facility] Address: [address] [place], [place] [address] Performed By: #### 5 7021-8 ####[facility] LABORATORYCLIA [id number] [place] [address] [place] Basophils/100 WBC (Bld) 0.5 % Normal [facility] Comment on above: Order Comment: Speci men Type: BLOOD SPECIMENOrdering Facility: [facility] Address: [address] [place] [address] Performed By: #### 5 7021-8 ####[facility] LABORATORYCLIA [id number] [place] [address] [place] Differential cell count method Nom (Bld) Auto Normal [facility] Comment on above: Order Comment: Speci men Type: BLOOD SPECIMENOrdering Facility: [facility] Address: [address] [place] [address] Performed By: #### 5 7021-8 ####[facility] LABORATORYCLIA [id number] [place] [address] [place] Eosinophils (Bld) [#/Vol] 0.04 10*3/uL Normal <0.46 [facility] Comment on above: Order Comment: Speci men Type: BLOOD SPECIMENOrdering Facility: [facility] Address: [address] [place] [address] Performed By: #### 5 7021-8 ####[facility] LABORATORYCLIA [id number] [address] [place] Eosinophils/100 WBC (Bld) 0.5 % Normal [facility] Comment on above: Order Comment: Speci men Type: BLOOD SPECIMENOrdering Facility: [facility] Address: [address] [place] [address] Performed By: #### 5 7021-8 ####[facility] LABORATORYCLIA [id number] [address] [place] Erythrocyte distribution width (RBC) [Ratio] 13.2 % Normal 11.5-15.0 [facility] Comment on above: Order Comment: Speci men Type: BLOOD SPECIMENOrdering Facility: [facility] Address: [address] [place] [address] Performed By: #### 5 7021-8 ####[facility] LABORATORYCLIA [id number] [place] [id number] [place] Hematocrit (Bld) [Volume fraction] 45.4 % Normal 36.0-46.0 [facility] Comment on above: Order Comment: Speci men Type: BLOOD SPECIMENOrdering Facility: [facility] Address: [address] [place] [address] Performed By: #### 5 7021-8 ####[facility] LABORATORYCLIA [id number] [place] [address] [place] Hemoglobin (Bld) [Mass/Vol] 15.2 g/dL Normal 11.5-15.5 [facility] Comment on above: Order Comment: Speci men Type: BLOOD SPECIMENOrdering Facility: [facility] Address: [address] [place] [address] Performed By: #### 5 7021-8 ####[facility]ORATORYCLIA [id number] [place] [address] [place] Immature granulocytes (Bld) [#/Vol] 0.08 10*3/uL Normal <0.10 [facility] Comment on above: Order Comment: Speci men Type: BLOOD SPECIMENOrdering Facility: [facility] Address: [address] [place] [address] Performed By: #### 5 7021-8 ####[facility]ORATORYCLIA [id number] [place] [address] [place] Immature granulocytes/100 WBC (Bld) 0.9 % Normal [facility] Comment on above: Order Comment: Speci men Type: BLOOD SPECIMENOrdering Facility: [facility] Address: [address] [place] [address] Performed By: #### 5 7021-8 ####[facility]ORATORYCLIA [id number] [place] [id number] [place] Lymphocytes (Bld) [#/Vol] 2.38 10*3/uL Normal 1.00-4.00 [facility] Comment on above: Order Comment: Speci men Type: BLOOD SPECIMENOrdering Facility: [facility] Address: [address] [place] [address] Performed By: #### 5 7021-8 ####[facility]ORATORYCLIA [id number] [place] [address] [place] Lymphocytes/100 WBC (Bld) 28.0 % Normal [facility] Comment on above: Order Comment: Speci men Type: BLOOD SPECIMENOrdering Facility: [facility] Address: [address] [place] [address] Performed By: #### 5 7021-8 ####[facility]ORATORYCLIA [id number] [place] [address] [place] MCH (RBC) [Entitic mass] 31.7 pg Normal 26.0-34.0 [facility] Comment on above: Order Comment: Speci men Type: BLOOD SPECIMENOrdering Facility: [facility] Address: [address] [place] [address] Performed By: #### 5 7021-8 ####[facility] LABORATORYCLIA [id number] [address] [place] MCHC (RBC) [Mass/Vol] 33.5 g/dL Normal 30.5-36.0 [facility] Comment on above: Order Comment: Speci men Type: BLOOD SPECIMENOrdering Facility: [facility] Address: [address] [place] [address] Performed By: #### 5 7021-8 ####[facility]ORATORYCLIA [id number] [place] [address] [place] MCV (RBC) [Entitic vol] 94.6 fL Normal 80.0-100.0 [facility] Comment on above: Order Comment: Speci men Type: BLOOD SPECIMENOrdering Facility: [facility] Address: [address] [place] [address] Performed By: #### 5 7021-8 ####[facility]ORATORYCLIA [id number] [place] [address] [place] Monocytes (Bld) [#/Vol] 1.06 10*3/uL High <0.87 [facility] Comment on above: Order Comment: Speci men Type: BLOOD SPECIMENOrdering Facility: [facility] Address: [address] [place] [address] Performed By: #### 5 7021-8 ####[facility] LABORATORYCLIA [id number] [place] [id number] [place] Monocytes/100 WBC (Bld) 12.5 % Normal [facility] Comment on above: Order Comment: Speci men Type: BLOOD SPECIMENOrdering Facility: [facility] Address: [address] [place] [address] Performed By: #### 5 7021-8 ####[facility] LABORATORYCLIA [id number] [place] [address] [place] Neutrophils (Bld) [#/Vol] 4.91 10*3/uL Normal 1.45-7.50 [facility] Comment on above: Order Comment: Speci men Type: BLOOD SPECIMENOrdering Facility: [facility] Address: [address] [place] [address] Performed By: #### 5 7021-8 ####[facility]ORATORYCLIA [id number] [place] [address] [place] Neutrophils/100 WBC (Bld) 57.6 % Normal [facility] Comment on above: Order Comment: Speci men Type: BLOOD SPECIMENOrdering Facility: [facility] Address: [address] [place] [address] Performed By: #### 5 7021-8 ####[facility]ORATORYCLIA [id number] [place] [id number] [place] Nucleated RBC (Bld) [#/Vol] 10*3/uL Normal <0.01 [facility] Comment on above: Order Comment: Speci men Type: BLOOD SPECIMENOrdering Facility: [facility] Address: [address] [place] [address] Performed By: #### 5 7021-8 ####[facility] LABORATORYCLIA [id number] [place] [address] [place] Nucleated RBC/100 WBC (Bld) [Ratio] 0.0 /100 [facility] Normal [facility] Comment on above: Order Comment: Speci men Type: BLOOD SPECIMENOrdering Facility: [facility] Address: [address] [place] [address] Performed By: #### 5 7021-8 ####[facility] LABORATORYCLIA [id number] [place] [id number] [place] Platelet mean volume (Bld) [Entitic vol] 9.1 fL Normal 9.0-12.7 [facility] Comment on above: Order Comment: Speci men Type: BLOOD SPECIMENOrdering Facility: [facility] Address: [address] [place] [address] Performed By: #### 5 7021-8 ####[facility] LABORATORYCLIA [id number] [place] [id number] [place] Platelets (Bld) [#/Vol] 144 10*3/uL Low 150-400 [facility] Comment on above: Order Comment: Speci men Type: BLOOD SPECIMENOrdering Facility: [facility] Address: [address] [place] [address] Performed By: #### 5 7021-8 ####[facility] LABORATORYCLIA [id number] [place] [address] [place] RBC (Bld) [#/Vol] 4.80 10*6/uL Normal 3.90-5.20 [facility] Comment on above: Order Comment: Speci men Type: BLOOD SPECIMENOrdering Facility: [facility] Address: [address] [place] [address] Performed By: #### 5 7021-8 ####[facility] LABORATORYCLIA [id number] [place] [id number] [place] WBC (Bld) [#/Vol] 8.51 10*3/uL Normal 3.70-11.00 [facility] Comment on above: Order Comment: Speci men Type: BLOOD SPECIMENOrdering Facility: [facility] Address: [address] [place] [address] Performed By: #### 5 7021-8 ####[facility] LABORATORYCLIA [id number] [place] [id number] [place] CONSULT PROGon 12-19-2024 CONSULT PROG Normal [facility] Comprehensive metabolic 2000 panelon 12-19-2024 Albumin [Mass/Vol] 3.5 g/dL Normal 3.2-5.0 [facility] Comment on above: Order Comment: Speci men Type: BLOOD SPECIMENOrdering Facility: [facility] Address: [address] [place] [address] Performed By: #### 2 4323-8 ####[facility] LABORATORYCLIA [id number] [address] [place] ALP [Catalytic activity/Vol] 59 U/L Normal 45-117 [facility] Comment on above: Order Comment: Speci men Type: BLOOD SPECIMENOrdering Facility: [facility] Address: [address] [place] [address] Performed By: #### 2 4323-8 ####[facility] LABORATORYCLIA [id number] [address] [place] ALT [Catalytic activity/Vol] 12 U/L Low 13-61 [facility] Comment on above: Order Comment: Speci men Type: BLOOD SPECIMENOrdering Facility: [facility] Address: [address] [place] [address] Result Comment: Resu lts may be falsely depressed after the administration of Sulfasalazine and/or Sulfapyridine. Performed By: #### 2 4323-8 ####[facility] LABORATORYCLIA [id number] [place] [id number] [place] Anion gap [Moles/Vol] 9 mmol/L Normal 5-16 [facility] Comment on above: Order Comment: Speci men Type: BLOOD SPECIMENOrdering Facility: [facility] Address: [address] [place] [address] Performed By: #### 2 4323-8 ####[facility] LABORATORYCLIA [id number] [place] [address] [place] AST [Catalytic activity/Vol] 18 U/L Normal 8-34 [facility] Comment on above: Order Comment: Speci men Type: BLOOD SPECIMENOrdering Facility: [facility] Address: [address] [place] [address] Result Comment: Resu lts may be falsely depressed after the administration of Sulfasalazine and/or Sulfapyridine. Performed By: #### 2 4323-8 ####[facility] LABORATORYCLIA [id number] [place] [address] [place] Bilirubin [Mass/Vol] 0.6 mg/dL Normal 0.2-1.0 [facility] Comment on above: Order Comment: Speci men Type: BLOOD SPECIMENOrdering Facility: [facility] Address: [address] [place] [address] Performed By: #### 2 4323-8 ####[facility] LABORATORYCLIA [id number] [place] [address] [place] Calcium [Mass/Vol] 9.3 mg/dL Normal 8.5-10.5 [facility] Comment on above: Order Comment: Speci men Type: BLOOD SPECIMENOrdering Facility: [facility] Address: [address] [place] [address] Performed By: #### 2 4323-8 ####[facility] LABORATORYCLIA [id number] [place] [address] [place] Chloride [Moles/Vol] 108 mmol/L High 98-107 [facility] Comment on above: Order Comment: Speci men Type: BLOOD SPECIMENOrdering Facility: [facility] Address: [address] [place] [address] Performed By: #### 2 4323-8 ####[facility] LABORATORYCLIA [id number] [place] [address] [place] CO2 [Moles/Vol] 27 mmol/L Normal 21-32 [facility] Comment on above: Order Comment: Speci men Type: BLOOD SPECIMENOrdering Facility: [facility] Address: [address] [place] [address] Performed By: #### 2 4323-8 ####[facility] LABORATORYCLIA [id number] [place] [id number] [place] Creatinine [Mass/Vol] 0.63 mg/dL Normal 0.51-0.95 [facility] Comment on above: Order Comment: Speci men Type: BLOOD SPECIMENOrdering Facility: [facility] Address: [address] [place] [address] Result Comment: Marilin ents receiving either N-Acetylcysteine (NAC) or Metamizole prior to venipuncture, may have falsely depressed results. Performed By: #### 2 4323-8 ####[facility] LABORATORYCLIA [id number] [address] Creatinine and Glomerular filtration rate.predicted panel (S/P/Bld) 110 mL/min/1.73m??? Normal >=60 [facility] Comment on above: Order Comment: Speci men Type: BLOOD SPECIMENOrdering Facility: [facility] Address: [address] [place] [address] Result Comment: Chrissy mated Glomerular Filtration Rate [...] actual GFR. Performed By: #### 2 4323-8 ####[facility] LABORATORYCLIA [id number] [place] [address] [place] Glucose [Mass/Vol] 102 mg/dL High 70-100 [facility] Comment on above: Order Comment: Irmai richard Type: BLOOD SPECIMENOrdering Facility: [facility] Address: [address] [place] [address] Result Comment: The [place] Diabetes Association (ADA) provides guidance for cutoff [...] Standards of Medical Care in Diabetes 2016, [place] Diabetes Association. Diabetes Care. 2016.39(Suppl 1).Results may be falsely elevated after the administration of Sulfapyridine.Results may be falsely depressed after the administration of Sulfasalazine. Performed By: #### 2 4323-8 ####[facility] LABORATORYCLIA [id number] [place] [address] [place] Potassium [Moles/Vol] 4.1 mmol/L Normal 3.5-5.1 [facility] Comment on above: Order Comment: Speci men Type: BLOOD SPECIMENOrdering Facility: [facility] Address: [address] [place] [address] Performed By: #### 2 4323-8 ####[facility] LABORATORYCLIA [id number] [place] [address] [place] Protein [Mass/Vol] 7.3 g/dL Normal 6.0-8.5 [facility] Comment on above: Order Comment: Speci men Type: BLOOD SPECIMENOrdering Facility: [facility] Address: [address] [place] [address] Performed By: #### 2 4323-8 ####[facility] LABORATORYCLIA [id number] [place] [address] [place] Sodium [Moles/Vol] 144 mmol/L Normal 136-145 [facility] Comment on above: Order Comment: Speci men Type: BLOOD SPECIMENOrdering Facility: [facility] Address: [address] [place] [address] Performed By: #### 2 4323-8 ####[facility] LABORATORYCLIA [id number] [place] [address] [place] Urea nitrogen [Mass/Vol] 11 mg/dL Normal 7-26 [facility] Comment on above: Order Comment: Speci men Type: BLOOD SPECIMENOrdering Facility: [facility] Address: [address] [id number] Performed By: #### 2 4323-8 ####[facility] LABORATORYCLIA [id number] [place] [id number] [place] THERAPY NTon 12-18-2024 THERAPY NT [facility] THERAPY NT [facility] CASE MANAGEMon 12-17-2024 CASE MANAGEM Normal [facility] CONSULT PROGon 12-17-2024 CONSULT PROG [facility] THERAPY NTon 12-17-2024 THERAPY NT [facility] CONSULT PROGon 12-16-2024 CONSULT PROG [facility] THERAPY on 12-14-2024 THERAPY NT [facility] Basic metabolic 2000 panelon 12-13-2024 Anion gap [Moles/Vol] 8 mmol/L Normal 5-16 [facility] Comment on above: Order Comment: Speci men Type: BLOOD SPECIMENOrdering Facility: [facility] Address: [address] [place] [address] Performed By: #### 2 4321-2 ####[facility] LABORATORYCLIA [id number] [place] [address] [place] Calcium [Mass/Vol] 9.7 mg/dL Normal 8.5-10.5 [facility] Comment on above: Order Comment: Speci men Type: BLOOD SPECIMENOrdering Facility: [facility] Address: [address] [place] [address] Performed By: #### 2 4321-2 ####[facility] LABORATORYCLIA [id number] [place] [address] [place] Chloride [Moles/Vol] 109 mmol/L High 98-107 [facility] Comment on above: Order Comment: Speci men Type: BLOOD SPECIMENOrdering Facility: [facility] Address: [address] [place], [place] [address] [place] [address] Performed By: #### 2 4321-2 ####[facility] LABORATORYCLIA [id number] [place] [address] [place] CO2 [Moles/Vol] 28 mmol/L Normal 21-32 [facility] Comment on above: Order Comment: Speci men Type: BLOOD SPECIMENOrdering Facility: [facility] Address: [address] [place] [address] Performed By: #### 2 4321-2 ####[facility] LABORATORYCLIA [id number] [place] [address] [place] Creatinine [Mass/Vol] 0.64 mg/dL Normal 0.51-0.95 [facility] Comment on above: Order Comment: Speci men Type: BLOOD SPECIMENOrdering Facility: [facility] Address: [address] [place] [address] Result Comment: Marilin ents receiving either N-Acetylcysteine (NAC) or Metamizole prior to venipuncture, may have falsely depressed results. Performed By: #### 2 4321-2 ####[facility] LABORATORYCLIA [id number] [address] OF [facility] Creatinine and Glomerular filtration rate.predicted panel (S/P/Bld) 110 mL/min/1.73m??? Normal >=60 [facility] Comment on above: Order Comment: Speci men Type: BLOOD SPECIMENOrdering Facility: [facility] Address: [address] [place] [address] Result Comment: Chrissy mated Glomerular Filtration Rate [...] actual GFR. Performed By: #### 2 4321-2 ####[facility]ORATORYCLIA [id number] [place] [id number] [place] Glucose [Mass/Vol] 87 mg/dL Normal 70-100 [facility] Comment on above: Order Comment: Syd ramos Type: BLOOD SPECIMENOrdering Facility: [facility] Address: [address] [place] [address] Result Comment: The [place] Diabetes Association (ADA) provides guidance for cutoff [...] Standards of Medical Care in Diabetes 2016, [place] [employer]. Diabetes Care. 2016.39(Suppl 1).Results may be falsely elevated after the administration of Sulfapyridine.Results may be falsely depressed after the administration of Sulfasalazine. Performed By: #### 2 4321-2 ####[facility] LABORATORYCLIA [id number] [place] [address] [place] Potassium [Moles/Vol] 3.5 mmol/L Normal 3.5-5.1 [facility] Comment on above: Order Comment: Syd ramos Type: BLOOD SPECIMENOrdering Facility: [facility] Address: [address] [place] [address] Performed By: #### 2 4321-2 ####[facility] LABORATORYCLIA [id number] [place] [address] [place] Sodium [Moles/Vol] 145 mmol/L Normal 136-145 [facility] Comment on above: Order Comment: Syd ramos Type: BLOOD SPECIMENOrdering Facility: [facility] Address: [address] [place] [address] Performed By: #### 2 4321-2 ####[facility] LABORATORYCLIA [id number] [place] [address] [place] Urea nitrogen [Mass/Vol] 13 mg/dL Normal 7-26 [facility] Comment on above: Order Comment: Speci men Type: BLOOD SPECIMENOrdering Facility: [facility] Address: [address] [place] [address] Performed By: #### 2 4321-2 ####[facility] LABORATORYCLIA [id number] [place] [id number] [place] CASE MANAGEMon 12-13-2024 CASE MANAGEM Normal [facility] CBC panel Auto (Bld)on 12-13 Erythrocyte distribution width (RBC) [Ratio] 13.1 % Normal 11.5-15.0 [facility] Comment on above: Order Comment: Speci men Type: BLOOD SPECIMENOrdering Facility: [facility] Address: [address] [place] [address] Performed By: #### 5 8410-2 ####[facility] LABORATORYCLIA [id number] [address] [place] Hematocrit (Bld) [Volume fraction] 40.6 % Normal 36.0-46.0 [facility] Comment on above: Order Comment: Speci men Type: BLOOD SPECIMENOrdering Facility: [facility] Address: [address] [place] [address] Performed By: #### 5 8410-2 ####[facility] LABORATORYCLIA [id number] [place] [id number] [place] Hemoglobin (Bld) [Mass/Vol] 13.9 g/dL Normal 11.5-15.5 [facility] Comment on above: Order Comment: Speci men Type: BLOOD SPECIMENOrdering Facility: [facility] Address: [address] [place] [address] Performed By: #### 5 8410-2 ####[facility] LABORATORYCLIA [id number] [place] [id number] [place] MCH (RBC) [Entitic mass] 32.0 pg Normal 26.0-34.0 [facility] Comment on above: Order Comment: Speci men Type: BLOOD SPECIMENOrdering Facility: [facility] Address: [address] [place] [address] Performed By: #### 5 8410-2 ####[facility] LABORATORYCLIA [id number] [address] [place] MCHC (RBC) [Mass/Vol] 34.2 g/dL Normal 30.5-36.0 [facility] Comment on above: Order Comment: Speci men Type: BLOOD SPECIMENOrdering Facility: [facility] Address: [address] [place] [address] Performed By: #### 5 8410-2 ####[facility] LABORATORYCLIA [id number] [place] [address] [facility] [place] MCV (RBC) [Entitic vol] 93.5 fL Normal 80.0-100.0 [facility] Comment on above: Order Comment: Speci men Type: BLOOD SPECIMENOrdering Facility: [facility] Address: [address] [place] [address] Performed By: #### 5 8410-2 ####[facility] LABORATORYCLIA [id number] [place] [address] [place] Nucleated RBC (Bld) [#/Vol] 10*3/uL Normal <0.01 [facility] Comment on above: Order Comment: Speci men Type: BLOOD SPECIMENOrdering Facility: [facility] Address: [address] [place] [address] Performed By: #### 5 8410-2 ####[facility] LABORATORYCLIA [id number] [place] [address] [place] Platelet mean volume (Bld) [Entitic vol] 9.4 fL Normal 9.0-12.7 [facility] Comment on above: Order Comment: Speci men Type: BLOOD SPECIMENOrdering Facility: [facility] Address: [address] [place] [address] Performed By: #### 5 8410-2 ####[facility] LABORATORYCLIA [id number] [place] [address] [place] Platelets (Bld) [#/Vol] 183 10*3/uL Normal 150-400 [facility] Comment on above: Order Comment: Speci men Type: BLOOD SPECIMENOrdering Facility: [facility] Address: [address] [place] [address] Performed By: #### 5 8410-2 ####[facility] LABORATORYCLIA [id number] [place] [id number] [place] RBC (Bld) [#/Vol] 4.34 10*6/uL Normal 3.90-5.20 [facility] Comment on above: Order Comment: Speci men Type: BLOOD SPECIMENOrdering Facility: [facility] Address: [address] [place] [address] Performed By: #### 5 8410-2 ####[facility] LABORATORYCLIA [id number] [address] OF [facility] WBC (Bld) [#/Vol] 5.83 10*3/uL Normal 3.70-11.00 [facility] Comment on above: Order Comment: Speci men Type: BLOOD SPECIMENOrdering Facility: [facility] Address: [address] [place], [place] [address] Performed By: #### 5 8410-2 ####[facility] LABORATORYCLIA [id number] [place] [id number] [place] NURSING PROGon 12-13-2024 NURSING PROG Normal [facility] THERAPY NTon 12-13-2024 THERAPY NT [facility] THERAPY NT Normal [facility] THERAPY NT Normal [facility] Basic metabolic 2000 panelon 12-12-2024 Anion gap [Moles/Vol] 11 mmol/L Normal 5-16 [facility] Comment on above: Order Comment: Speci men Type: BLOOD SPECIMENOrdering Facility: [facility] Address: [address] [place] [address] Performed By: #### 2 4321-2 ####[facility]ORATORYCLIA [id number] [place] [id number] [place] Calcium [Mass/Vol] 9.2 mg/dL Normal 8.5-10.5 [facility] Comment on above: Order Comment: Speci men Type: BLOOD SPECIMENOrdering Facility: [facility] Address: [address] [place] [address] Performed By: #### 2 4321-2 ####[facility]ORATORYCLIA [id number] [place] [id number] [place] Chloride [Moles/Vol] 107 mmol/L Normal 98-107 [facility] Comment on above: Order Comment: Speci men Type: BLOOD SPECIMENOrdering Facility: [facility] Address: [address] [place] [address] Performed By: #### 2 4321-2 ####[facility]ORATORYCLIA [id number] [place] [id number] [place] CO2 [Moles/Vol] 24 mmol/L Normal 21-32 [facility] Comment on above: Order Comment: Speci men Type: BLOOD SPECIMENOrdering Facility: [facility] Address: [address] [place] [address] Performed By: #### 2 4321-2 ####[facility] LABORATORYCLIA [id number] [place] [address] [place] Creatinine [Mass/Vol] 0.58 mg/dL Normal 0.51-0.95 [facility] Comment on above: Order Comment: Speci men Type: BLOOD SPECIMENOrdering Facility: [facility] Address: [address] [place] [address] Result Comment: Marilin ents receiving either N-Acetylcysteine (NAC) or Metamizole prior to venipuncture, may have falsely depressed results. Performed By: #### 2 4321-2 ####[facility]ORATORYCLIA [id number] [place] [address] [place] Creatinine and Glomerular filtration rate.predicted panel (S/P/Bld) 112 mL/min/1.73m??? Normal >=60 [facility] Comment on above: Order Comment: Speci men Type: BLOOD SPECIMENOrdering Facility: [facility] Address: [address] [place] [address] Result Comment: Chrissy mated Glomerular Filtration Rate [...] actual GFR. Performed By: #### 2 4321-2 ####[facility]ORATORYCLIA [id number] [place] [id number] [place] Glucose [Mass/Vol] 88 mg/dL Normal 70-100 [facility] Comment on above: Order Comment: Syd ramos Type: BLOOD SPECIMENOrdering Facility: [facility] Address: [address] [place] [address] Result Comment: The [place] Diabetes Association (ADA) provides guidance for cutoff [...] Standards of Medical Care in Diabetes 2016, [place] Diabetes Association. Diabetes Care. 2016.39(Suppl 1).Results may be falsely elevated after the administration of Sulfapyridine.Results may be falsely depressed after the administration of Sulfasalazine. Performed By: #### 2 4321-2 ####[facility] LABORATORYCLIA [id number] [place] [address] [place] Potassium [Moles/Vol] 3.9 mmol/L Normal 3.5-5.1 [facility] Comment on above: Order Comment: Syd ramos Type: BLOOD SPECIMENOrdering Facility: [facility] Address: [address] [place] [address] Performed By: #### 2 4321-2 ####[facility] LABORATORYCLIA [id number] [place] [id number] [place] Sodium [Moles/Vol] 142 mmol/L Normal 136-145 [facility] Comment on above: Order Comment: Speci men Type: BLOOD SPECIMENOrdering Facility: [facility] Address: [address] [facility] [place] [address] Performed By: #### 2 4321-2 ####[facility] LABORATORYCLIA [id number] [place] [id number] [place] Urea nitrogen [Mass/Vol] 8 mg/dL Normal 7-26 [facility] Comment on above: Order Comment: Speci men Type: BLOOD SPECIMENOrdering Facility: [facility] Address: [address] [place] [address] Performed By: #### 2 4321-2 ####[facility] LABORATORYCLIA [id number] [place] [id number] [place] CBC panel Auto (Bld)on 12-12 Erythrocyte distribution width (RBC) [Ratio] 13.2 % Normal 11.5-15.0 [facility] Comment on above: Order Comment: Speci men Type: BLOOD SPECIMENOrdering Facility: [facility] Address: [address] [place] [address] Performed By: #### 5 8410-2 ####[facility] LABORATORYCLIA [id number] [place] [id number] [place] Hematocrit (Bld) [Volume fraction] 40.3 % Normal 36.0-46.0 [facility] Comment on above: Order Comment: Speci men Type: BLOOD SPECIMENOrdering Facility: [facility] Address: [address] [place] [address] Performed By: #### 5 8410-2 ####[facility] LABORATORYCLIA [id number] [place] [id number] [place] Hemoglobin (Bld) [Mass/Vol] 13.6 g/dL Normal 11.5-15.5 [facility] Comment on above: Order Comment: Speci men Type: BLOOD SPECIMENOrdering Facility: [facility] Address: [address] [place] [address] Performed By: #### 5 8410-2 ####[facility] LABORATORYCLIA [id number] [address] MCH (RBC) [Entitic mass] 31.8 pg Normal 26.0-34.0 [facility] Comment on above: Order Comment: Speci men Type: BLOOD SPECIMENOrdering Facility: [facility] Address: [address] [place] [address] Performed By: #### 5 8410-2 ####[facility] LABORATORYCLIA [id number] [address] [place] MCHC (RBC) [Mass/Vol] 33.7 g/dL Normal 30.5-36.0 [facility] Comment on above: Order Comment: Speci men Type: BLOOD SPECIMENOrdering Facility: [facility] Address: [address] [place] [address] Performed By: #### 5 8410-2 ####[facility] LABORATORYCLIA [id number] [address] MCV (RBC) [Entitic vol] 94.2 fL Normal 80.0-100.0 [facility] Comment on above: Order Comment: Speci men Type: BLOOD SPECIMENOrdering Facility: [facility] Address: [address] [place] [address] Performed By: #### 5 8410-2 ####[facility] LABORATORYCLIA [id number] [address] [place] Nucleated RBC (Bld) [#/Vol] 10*3/uL Normal <0.01 [facility] Comment on above: Order Comment: Speci men Type: BLOOD SPECIMENOrdering Facility: [facility] Address: [address] [place] [address] Performed By: #### 5 8410-2 ####[facility] LABORATORYCLIA [id number] [address] [place] Platelet mean volume (Bld) [Entitic vol] 9.3 fL Normal 9.0-12.7 [facility] Comment on above: Order Comment: Speci men Type: BLOOD SPECIMENOrdering Facility: [facility] Address: [address] [place], [place] [address] Performed By: #### 5 8410-2 ####[facility] LABORATORYCLIA [id number] [place] [id number] [facility] Platelets (Bld) [#/Vol] 178 10*3/uL Normal 150-400 [facility] Comment on above: Order Comment: Speci men Type: BLOOD SPECIMENOrdering Facility: [facility] Address: [address] [place] [address] Performed By: #### 5 8410-2 ####[facility] LABORATORYCLIA [id number] [place] [address] [place] RBC (Bld) [#/Vol] 4.28 10*6/uL Normal 3.90-5.20 [facility] Comment on above: Order Comment: Speci men Type: BLOOD SPECIMENOrdering Facility: [facility] Address: [address] [place], [place] [address] Performed By: #### 5 8410-2 ####[facility] LABORATORYCLIA [id number] [address] [place] WBC (Bld) [#/Vol] 5.73 10*3/uL Normal 3.70-11.00 [facility] Comment on above: Order Comment: Speci men Type: BLOOD SPECIMENOrdering Facility: [facility] Address: [address] [place], [place] [address] Performed By: #### 5 8410-2 ####[facility] LABORATORYCLIA [id number] [place] [id number] [place] CONSULTon 12-12-2024 CONSULT Normal [facility] NURSING PROGon 12-12-2024 NURSING PROG Normal [facility] NURSING PROG [facility] NUTRITIONon 12-12-2024 NUTRITION Normal [facility] THERAPY NTon 12-12-2024 THERAPY NT Normal [facility] THERAPY NT [facility] Basic metabolic 2000 panelon 12-11-2024 Anion gap [Moles/Vol] 8 mmol/L Normal 5-16 [facility] Comment on above: Order Comment: Speci men Type: BLOOD SPECIMENOrdering Facility: [facility] Address: [address] [place] [address] Performed By: #### 2 4321-2 ####[facility] LABORATORYCLIA [id number] [place] [id number] [place] Calcium [Mass/Vol] 9.2 mg/dL Normal 8.5-10.5 [facility] Comment on above: Order Comment: Speci men Type: BLOOD SPECIMENOrdering Facility: [facility] Address: [address] [place] [address] Performed By: #### 2 4321-2 ####[facility] LABORATORYCLIA [id number] [place] [address] [place] Chloride [Moles/Vol] 109 mmol/L High 98-107 [facility] Comment on above: Order Comment: Speci men Type: BLOOD SPECIMENOrdering Facility: [facility] Address: [address] [place] [address] Performed By: #### 2 4321-2 ####[facility] LABORATORYCLIA [id number] [place] [address] [place] CO2 [Moles/Vol] 26 mmol/L Normal 21-32 [facility] Comment on above: Order Comment: Speci men Type: BLOOD SPECIMENOrdering Facility: [facility] Address: [address] [place] [address] Performed By: #### 2 4321-2 ####[facility] LABORATORYCLIA [id number] [place] [address] [place] Creatinine [Mass/Vol] 0.67 mg/dL Normal 0.51-0.95 [facility] Comment on above: Order Comment: Speci men Type: BLOOD SPECIMENOrdering Facility: [facility] Address: [address] [place] [address] Result Comment: Marilin ents receiving either N-Acetylcysteine (NAC) or Metamizole prior to venipuncture, may have falsely depressed results. Performed By: #### 2 4321-2 ####[facility] LABORATORYCLIA [id number] [place] [id number] [place] Creatinine and Glomerular filtration rate.predicted panel (S/P/Bld) 109 mL/min/1.73m??? Normal >=60 [facility] Comment on above: Order Comment: Syd ramos Type: BLOOD SPECIMENOrdering Facility: [facility] Address: [address] [place] [address] Result Comment: Chrissy mated Glomerular Filtration Rate [...] actual GFR. Performed By: #### 2 4321-2 ####[facility] LABORATORYCLIA [id number] [place] [address] [place] Glucose [Mass/Vol] 97 mg/dL Normal 70-100 [facility] Comment on above: Order Comment: Syd ramos Type: BLOOD SPECIMENOrdering Facility: [facility] Address: [address] [place] [address] Result Comment: The [place] Diabetes Association (ADA) provides guidance for cutoff [...] Standards of Medical Care in Diabetes 2016, [place] Diabetes Association. Diabetes Care. 2016.39(Suppl 1).Results may be falsely elevated after the administration of Sulfapyridine.Results may be falsely depressed after the administration of Sulfasalazine. Performed By: #### 2 4321-2 ####[facility] LABORATORYCLIA [id number] [place] [id number] [place] Potassium [Moles/Vol] 3.3 mmol/L Low 3.5-5.1 [facility] Comment on above: Order Comment: Speci men Type: BLOOD SPECIMENOrdering Facility: [facility] Address: [address] [place] [address] Performed By: #### 2 4321-2 ####[facility] LABORATORYCLIA [id number] [place] [address] [place] Sodium [Moles/Vol] 143 mmol/L Normal 136-145 [facility] Comment on above: Order Comment: Speci men Type: BLOOD SPECIMENOrdering Facility: [facility] Address: [address] [place] [address] Performed By: #### 2 4321-2 ####[facility] LABORATORYCLIA [id number] [address] STATES OF [facility] Urea nitrogen [Mass/Vol] 14 mg/dL Normal 7-26 [facility] Comment on above: Order Comment: Speci men Type: BLOOD SPECIMENOrdering Facility: [facility] Address: [address] [place] [address] Performed By: #### 2 4321-2 ####[facility] LABORATORYCLIA [id number] [place] [id number] [place] CASE MANAGEMon 12-11-2024 CASE MANAGEM Normal [facility] CBC panel Auto (Bld)on 12-11 Erythrocyte distribution width (RBC) [Ratio] 13.2 % Normal 11.5-15.0 [facility] Comment on above: Order Comment: Speci men Type: BLOOD SPECIMENOrdering Facility: [facility] Address: [address] [place] [address] Performed By: #### 5 8410-2 ####[facility] LABORATORYCLIA [id number] [place] [id number] [place] Hematocrit (Bld) [Volume fraction] 40.0 % Normal 36.0-46.0 [facility] Comment on above: Order Comment: Speci men Type: BLOOD SPECIMENOrdering Facility: [facility] Address: [address] [place] [address] Performed By: #### 5 8410-2 ####[facility] LABORATORYCLIA [id number] [place] [address] [place] Hemoglobin (Bld) [Mass/Vol] 13.5 g/dL Normal 11.5-15.5 [facility] Comment on above: Order Comment: Speci men Type: BLOOD SPECIMENOrdering Facility: [facility] Address: [address] [place] [address] Performed By: #### 5 8410-2 ####[facility] LABORATORYCLIA [id number] [place] [address] [place] MCH (RBC) [Entitic mass] 31.8 pg Normal 26.0-34.0 [facility] Comment on above: Order Comment: Speci men Type: BLOOD SPECIMENOrdering Facility: [facility] Address: [address] [place] [address] Performed By: #### 5 8410-2 ####[facility] LABORATORYCLIA [id number] [place] [address] [place] MCHC (RBC) [Mass/Vol] 33.8 g/dL Normal 30.5-36.0 [facility] Comment on above: Order Comment: Speci men Type: BLOOD SPECIMENOrdering Facility: [facility] Address: [address] [place] [address] Performed By: #### 5 8410-2 ####[facility] LABORATORYCLIA [id number] [place] [address] [place] MCV (RBC) [Entitic vol] 94.1 fL Normal 80.0-100.0 [facility] Comment on above: Order Comment: Speci men Type: BLOOD SPECIMENOrdering Facility: [facility] Address: [address] [place] [address] Performed By: #### 5 8410-2 ####[facility] LABORATORYCLIA [id number] [place] [id number] [place] Nucleated RBC (Bld) [#/Vol] 10*3/uL Normal <0.01 [facility] Comment on above: Order Comment: Speci men Type: BLOOD SPECIMENOrdering Facility: [facility] Address: [address] [place] [address] Performed By: #### 5 8410-2 ####[facility] LABORATORYCLIA [id number] [place] [address] [place] Platelet mean volume (Bld) [Entitic vol] 9.2 fL Normal 9.0-12.7 [facility] Comment on above: Order Comment: Speci men Type: BLOOD SPECIMENOrdering Facility: [facility] Address: [address] [place] [address] Performed By: #### 5 8410-2 ####[facility] LABORATORYCLIA [id number] [place] [id number] [place] Platelets (Bld) [#/Vol] 183 10*3/uL Normal 150-400 [facility] Comment on above: Order Comment: Speci men Type: BLOOD SPECIMENOrdering Facility: [facility] Address: [address] [place] [address] Performed By: #### 5 8410-2 ####[facility] LABORATORYCLIA [id number] [place] [address] [place] RBC (Bld) [#/Vol] 4.25 10*6/uL Normal 3.90-5.20 [facility] Comment on above: Order Comment: Speci men Type: BLOOD SPECIMENOrdering Facility: [facility] Address: [address] [place], [place] [address] Performed By: #### 5 8410-2 ####[facility] LABORATORYCLIA [id number] [place] [id number] [place] WBC (Bld) [#/Vol] 6.23 10*3/uL Normal 3.70-11.00 [facility] Comment on above: Order Comment: Speci men Type: BLOOD SPECIMENOrdering Facility: [facility] Address: [address] [place] [address] Performed By: #### 5 8410-2 ####[facility] LABORATORYCLIA [id number] [place] [address] [place] [facility] CK SerPl-cCncon 12-11-2024 CK [Catalytic activity/Vol] 121 U/L Normal 28-152 [facility] Comment on above: Order Comment: Speci men Type: BLOOD SPECIMENOrdering Facility: [facility] Address: [address] [place] [address] Performed By: #### 2 157-6 ####[facility]ORATORYCLIA [id number] [place] [address] [facility] Lactate (Bld) [Moles/Vol]on 12-11-2024 Lactate [Moles/Vol] 0.9 mmol/L Normal 0.4-2.0 [facility] Comment on above: Order Comment: Speci men Type: BLOOD SPECIMENOrdering Facility: [facility] Address: [address] [place] [address] Performed By: #### 3 2693-4 ####[facility]ORATORYCLIA [id number] [place] [address] [facility] THERAPY NTon 12-11-2024 THERAPY NT Normal [facility] THERAPY NT Normal [facility] Ammonia Plas-sCncon 12-11-19 25 Ammonia (P) [Moles/Vol] 47 umol/L High 11-32 [facility] Comment on above: Order Comment: Speci men Type: BLOOD SPECIMENOrdering Facility: [facility] Address: [address] [place] [address] Result Comment: Resu lts may be falsely depressed after the administration of Sulfapyridine. Results may be falsely elevated after the administration of Sulfasalazine. Performed By: #### 1 6362-6 ####[facility]ORATORYCLIA [id number] [place] [address] [place] Basic metabolic 2000 panelon 12-10-2024 Anion gap [Moles/Vol] 7 mmol/L Normal 5-16 [facility] Comment on above: Order Comment: Speci men Type: BLOOD SPECIMENOrdering Facility: [facility] Address: [address] [place] [address] Performed By: #### 2 4321-2 ####[facility]ORATORYCLIA [id number] [place] [id number] [place] Calcium [Mass/Vol] 9.2 mg/dL Normal 8.5-10.5 [facility] Comment on above: Order Comment: Speci men Type: BLOOD SPECIMENOrdering Facility: [facility] Address: [address] [place] [address] Performed By: #### 2 4321-2 ####[facility] LABORATORYCLIA [id number] [place] [address] [place] Chloride [Moles/Vol] 111 mmol/L High 98-107 [facility] Comment on above: Order Comment: Speci men Type: BLOOD SPECIMENOrdering Facility: [facility] Address: [address] [place] [address] Performed By: #### 2 4321-2 ####[facility]ORATORYCLIA [id number] [place] [address] [place] CO2 [Moles/Vol] 27 mmol/L Normal 21-32 [facility] Comment on above: Order Comment: Speci men Type: BLOOD SPECIMENOrdering Facility: [facility] Address: [address] [place] [address] Performed By: #### 2 4321-2 ####[facility] LABORATORYCLIA [id number] [place] [address] [place] Creatinine [Mass/Vol] 0.64 mg/dL Normal 0.51-0.95 [facility] Comment on above: Order Comment: Speci men Type: BLOOD SPECIMENOrdering Facility: [facility] Address: [address] [place] [address] Result Comment: Marilin ents receiving either N-Acetylcysteine (NAC) or Metamizole prior to venipuncture, may have falsely depressed results. Performed By: #### 2 4321-2 ####[facility] LABORATORYCLIA [id number] [address] Creatinine and Glomerular filtration rate.predicted panel (S/P/Bld) 110 mL/min/1.73m??? Normal >=60 [facility] Comment on above: Order Comment: Syd ramos Type: BLOOD SPECIMENOrdering Facility: [facility] Address: [address] [place] [address] Result Comment: Chrissy mated Glomerular Filtration Rate [...] actual GFR. Performed By: #### 2 4321-2 ####[facility] LABORATORYCLIA [id number] [place] [address] [place] Glucose [Mass/Vol] 91 mg/dL Normal 70-100 [facility] Comment on above: Order Comment: Syd ramos Type: BLOOD SPECIMENOrdering Facility: [facility] Address: [address] [place] [address] Result Comment: The [place] Diabetes Association (ADA) provides guidance for cutoff [...] Standards of Medical Care in Diabetes 2016, [place] Diabetes Association. Diabetes Care. 2016.39(Suppl 1).Results may be falsely elevated after the administration of Sulfapyridine.Results may be falsely depressed after the administration of Sulfasalazine. Performed By: #### 2 4321-2 ####[facility] LABORATORYCLIA [id number] [place] [address] [place] Potassium [Moles/Vol] 3.4 mmol/L Low 3.5-5.1 [facility] Comment on above: Order Comment: Speci men Type: BLOOD SPECIMENOrdering Facility: [facility] Address: [address] [place] [address] Performed By: #### 2 4321-2 ####[facility] LABORATORYCLIA [id number] [place] [id number] [place] Sodium [Moles/Vol] 145 mmol/L Normal 136-145 [facility] Comment on above: Order Comment: Speci men Type: BLOOD SPECIMENOrdering Facility: [facility] Address: [address] [place] [address] Performed By: #### 2 4321-2 ####[facility] LABORATORYCLIA [id number] [place] [address] [place] Urea nitrogen [Mass/Vol] 11 mg/dL Normal 02-09 [facility] Comment on above: Order Comment: Speci men Type: BLOOD SPECIMENOrdering Facility: [facility] Address: [address] [place] [address] Performed By: #### 2 4321-2 ####[facility] LABORATORYCLIA [id number] [place] [id number] [place] CBC panel Auto (Bld)on 12-10 Erythrocyte distribution width (RBC) [Ratio] 13.1 % Normal 11.5-15.0 [facility] Comment on above: Order Comment: Speci men Type: BLOOD SPECIMENOrdering Facility: [facility] Address: [address] [place] [address] Performed By: #### 5 8410-2 ####[facility] LABORATORYCLIA [id number] [place] [address] [place] Hematocrit (Bld) [Volume fraction] 38.1 % Normal 36.0-46.0 [facility] Comment on above: Order Comment: Speci men Type: BLOOD SPECIMENOrdering Facility: [facility] Address: [address] [place] [address] Performed By: #### 5 8410-2 ####[facility] LABORATORYCLIA [id number] [place] [id number] [place] Hemoglobin (Bld) [Mass/Vol] 12.9 g/dL Normal 11.5-15.5 [facility] Comment on above: Order Comment: Speci men Type: BLOOD SPECIMENOrdering Facility: [facility] Address: [address] [place] [address] Performed By: #### 5 8410-2 ####[facility] LABORATORYCLIA [id number] [address] [place] MCH (RBC) [Entitic mass] 31.9 pg Normal 26.0-34.0 [facility] Comment on above: Order Comment: Speci men Type: BLOOD SPECIMENOrdering Facility: [facility] Address: [address] [place] [address] Performed By: #### 5 8410-2 ####[facility] LABORATORYCLIA [id number] [address] STATES [facility] MCHC (RBC) [Mass/Vol] 33.9 g/dL Normal 30.5-36.0 [facility] Comment on above: Order Comment: Speci men Type: BLOOD SPECIMENOrdering Facility: [facility] Address: [address] [place] [address] Performed By: #### 5 8410-2 ####[facility] LABORATORYCLIA [id number] [address] [place] MCV (RBC) [Entitic vol] 94.1 fL Normal 80.0-100.0 [facility] Comment on above: Order Comment: Speci men Type: BLOOD SPECIMENOrdering Facility: [facility] Address: [address] [place] [address] Performed By: #### 5 8410-2 ####[facility] LABORATORYCLIA [id number] [place] [address] [place] Nucleated RBC (Bld) [#/Vol] 10*3/uL Normal <0.01 [facility] Comment on above: Order Comment: Speci men Type: BLOOD SPECIMENOrdering Facility: [facility] Address: [address] [place] [address] Performed By: #### 5 8410-2 ####[facility] LABORATORYCLIA [id number] [place] [address] [place] Platelet mean volume (Bld) [Entitic vol] 8.7 fL Low 9.0-12.7 [facility] Comment on above: Order Comment: Speci men Type: BLOOD SPECIMENOrdering Facility: [facility] Address: [address] [place] [address] Performed By: #### 5 8410-2 ####[facility] LABORATORYCLIA [id number] [place] [id number] [place] Platelets (Bld) [#/Vol] 160 10*3/uL Normal 150-400 [facility] Comment on above: Order Comment: Speci men Type: BLOOD SPECIMENOrdering Facility: [facility] Address: [address] [place] [address] Performed By: #### 5 8410-2 ####[facility] LABORATORYCLIA [id number] [place] [id number] [place] RBC (Bld) [#/Vol] 4.05 10*6/uL Normal 3.90-5.20 [facility] Comment on above: Order Comment: Speci men Type: BLOOD SPECIMENOrdering Facility: [facility] Address: [address] [place] [address] Performed By: #### 5 8410-2 ####[facility] LABORATORYCLIA [id number] [place] [address] [place] WBC (Bld) [#/Vol] 5.37 10*3/uL Normal 3.70-11.00 [facility] Comment on above: Order Comment: Speci men Type: BLOOD SPECIMENOrdering Facility: [facility] Address: [address] [place], [place] [address] Performed By: #### 5 8410-2 ####[facility] LABORATORYCLIA [id number] [place] [id number] [place] Bas Metab 2000 Pnl SerPlon 0 12-09-2024 Potassium [Moles/Vol] 3.6 mmol/L Normal 3.5-5.1 [facility] Comment on above: Order Comment: Speci men Type: BLOOD SPECIMENOrdering Facility: [facility] Address: [address] [place] [address] Performed By: #### 2 4321-2, 52301-2, TSHRF, 3024-7, 91880-7 ####[facility] LABORATORYCLIA [id number] [place] [id number] [place] Urea nitrogen [Mass/Vol] 11 mg/dL Normal 7-26 [facility] Comment on above: Order Comment: Speci men Type: BLOOD SPECIMENOrdering Facility: [facility] Address: [address] [place] [address] Performed By: #### 2 4321-2, 98815-4, TSHRF, 3024-7, 82377-8 ####[facility] LABORATORYCLIA [id number] [place] [id number] [place] Basic metabolic 2000 panelon 12-09-2024 Anion gap [Moles/Vol] 9 mmol/L Normal 5-16 [facility] Comment on above: Order Comment: Speci men Type: BLOOD SPECIMENOrdering Facility: [facility] Address: [address] [place] [address] Performed By: #### 2 4321-2, 21825-4, TSHRF, 3024-7, 02205-6 ####[facility] LABORATORYCLIA [id number] [place] [address] [place] Calcium [Mass/Vol] 8.7 mg/dL Normal 8.5-10.5 [facility] Comment on above: Order Comment: Speci men Type: BLOOD SPECIMENOrdering Facility: [facility] Address: [address] [place] [address] Performed By: #### 2 4321-2, 47389-7, TSHRF, 3024-7, 61012-0 ####[facility] LABORATORYCLIA [id number] [place] [address] [place] Chloride [Moles/Vol] 111 mmol/L High 98-107 [facility] Comment on above: Order Comment: Speci men Type: BLOOD SPECIMENOrdering Facility: [facility] Address: [address] [place] [address] Performed By: #### 2 4321-2, 28876-8, TSH, 3024-7, 23586-3 ####[facility] LABORATORYCLIA [id number] [place] [id number] [place] CO2 [Moles/Vol] 25 mmol/L Normal 21-32 [facility] Comment on above: Order Comment: Speci men Type: BLOOD SPECIMENOrdering Facility: [facility] Address: [address] [place] [address] Performed By: #### 2 4321-2, 55888-7, TSH, 302-7, 84913-1 ####[facility] LABORATORYCLIA [id number] [place] [address] [place] Creatinine [Mass/Vol] 0.54 mg/dL Normal 0.51-0.95 [facility] Comment on above: Order Comment: Speci men Type: BLOOD SPECIMENOrdering Facility: [facility] Address: [address] [place] [address] Result Comment: Marilin ents receiving either N-Acetylcysteine (NAC) or Metamizole prior to venipuncture, may have falsely depressed results. Performed By: #### 2 4321-2, 56857-8, TSH, 302-7, 67216-2 ####[facility] LABORATORYCLIA [id number] [place] [address] [place] Creatinine and Glomerular filtration rate.predicted panel (S/P/Bld) 114 mL/min/1.73m??? Normal >=60 [facility] Comment on above: Order Comment: Speci men Type: BLOOD SPECIMENOrdering Facility: [facility] Address: [address] [place] [id number] Result Comment: Chrissy mated Glomerular Filtration Rate [...] actual GFR. Performed By: #### 2 4321-2, 42496-7, [facility], 3023-7, 62227-9 ####[facility] LABORATORYCLIA [id number] [place] [id number] [place] Glucose [Mass/Vol] 97 mg/dL Normal 70-100 [facility] Comment on above: Order Comment: Syd ramos Type: BLOOD SPECIMENOrdering Facility: [facility] Address: [address] [place] [address] Result Comment: The [place] Diabetes Association (ADA) provides guidance for cutoff [...] Standards of Medical Care in Diabetes 2016, [place] Diabetes Association. Diabetes Care. 2016.39(Suppl 1).Results may be falsely elevated after the administration of Sulfapyridine.Results may be falsely depressed after the administration of Sulfasalazine. Performed By: #### 2 4321-2, 26503-9, TSH, 302-7, 17918-5 ####[facility] LABORATORYCLIA [id number] [place] [address] [place] Sodium [Moles/Vol] 145 mmol/L Normal 136-145 [facility] Comment on above: Order Comment: Speci men Type: BLOOD SPECIMENOrdering Facility: [facility] Address: [address] [place] [address] Performed By: #### 2 4321-2, 13108-7, TSHRF, 3024-7, 57269-3 ####[facility] LABORATORYCLIA [id number] [place] [id number] [place] CASE MANAGEMon 12-09-2024 CASE MANAGEM Normal [facility] CBC panel Auto (Bld)on 12-09 Erythrocyte distribution width (RBC) [Ratio] 13.0 % Normal 11.5-15.0 [facility] Comment on above: Order Comment: Speci men Type: BLOOD SPECIMENOrdering Facility: [facility] Address: [address] [place] [address] Performed By: #### 5 8410-2, WAMMR ####[facility] LABORATORYCLIA [id number] [address] [place] Hematocrit (Bld) [Volume fraction] 37.0 % Normal 36.0-46.0 [facility] Comment on above: Order Comment: Speci men Type: BLOOD SPECIMENOrdering Facility: [facility] Address: [address] [place] [address] Performed By: #### 5 8410-2, WAMMR ####[facility] LABORATORYCLIA [id number] [place] [address] [place] Hemoglobin (Bld) [Mass/Vol] 12.7 g/dL Normal 11.5-15.5 [facility] Comment on above: Order Comment: Speci men Type: BLOOD SPECIMENOrdering Facility: [facility] Address: [address] [place] [address] Performed By: #### 5 8410-2, WAMMR ####[facility] LABORATORYCLIA [id number] [place] [id number] [place] MCH (RBC) [Entitic mass] 32.1 pg Normal 26.0-34.0 [facility] Comment on above: Order Comment: Speci men Type: BLOOD SPECIMENOrdering Facility: [facility] Address: [address] [place] [address] Performed By: #### 5 8410-2, WAMMR ####[facility] LABORATORYCLIA [id number] [address] [place] MCHC (RBC) [Mass/Vol] 34.3 g/dL Normal 30.5-36.0 [facility] Comment on above: Order Comment: Speci men Type: BLOOD SPECIMENOrdering Facility: [facility] Address: [address] [place] [address] Performed By: #### 5 8410-2, WAMMR ####[facility]ORATORYCLIA [id number] [place] [address] [place] MCV (RBC) [Entitic vol] 93.4 fL Normal 80.0-100.0 [facility] Comment on above: Order Comment: Speci men Type: BLOOD SPECIMENOrdering Facility: [facility] Address: [address] [place] [address] Performed By: #### 5 8410-2, WAMMR ####[facility]ORATORYCLIA [id number] [place] [address] [place] Nucleated RBC (Bld) [#/Vol] 10*3/uL Normal <0.01 [facility] Comment on above: Order Comment: Speci men Type: BLOOD SPECIMENOrdering Facility: [facility] Address: [address] [place] [address] Performed By: #### 5 8410-2, WAMMR ####[facility] LABORATORYCLIA [id number] [place] [address] [place] Platelet mean volume (Bld) [Entitic vol] 9.7 fL Normal 9.0-12.7 [facility] Comment on above: Order Comment: Speci men Type: BLOOD SPECIMENOrdering Facility: [facility] Address: [address] [place] [address] Performed By: #### 5 8410-2, WAMMR ####[facility]ORATORYCLIA [id number] [place] [address] [facility] [place] Platelets (Bld) [#/Vol] 135 10*3/uL Low 150-400 [facility] Comment on above: Order Comment: Speci men Type: BLOOD SPECIMENOrdering Facility: [facility] Address: [address] [place] [address] Result Comment: Micr otainer sample. No clot detected. Performed By: #### 5 8410-2, WAMMR ####[facility]ORATORYCLIA [id number] [place] [address] [place] RBC (Bld) [#/Vol] 3.96 10*6/uL Normal 3.90-5.20 [facility] Comment on above: Order Comment: Speci men Type: BLOOD SPECIMENOrdering Facility: [facility] Address: [address] [place] [address] Performed By: #### 5 8410-2, WAMMR ####[facility] LABORATORYCLIA [id number] [address] OF [facility] WBC (Bld) [#/Vol] 5.06 10*3/uL Normal 3.70-11.00 [facility] Comment on above: Order Comment: Speci men Type: BLOOD SPECIMENOrdering Facility: [facility] Address: [address] [place] [address] Performed By: #### 5 8410-2, WAMMR ####[facility]ORATORYCLIA [id number] [address] [place] Comprehensive metabolic 2000 panelon 12-09-2024 Albumin [Mass/Vol] 2.5 g/dL Low 3.2-5.0 [facility] Comment on above: Order Comment: Speci men Type: BLOOD SPECIMENOrdering Facility: [facility] Address: [address] [place] [address] Performed By: #### 2 4321-2, 26759-6, TSHRF, 3024-7, 09248-2 ####[facility]ORATORYCLIA [id number] [place] [address] [place] ALP [Catalytic activity/Vol] 58 U/L Normal 45-117 [facility] Comment on above: Order Comment: Speci men Type: BLOOD SPECIMENOrdering Facility: [facility] Address: [address] [place] [address] Performed By: #### 2 4321-2, 44550-4, TSHRF, 3024-7, 44279-8 ####[facility]ORATORYCLIA [id number] [place] [id number] [place] ALT [Catalytic activity/Vol] 28 U/L Normal 13-61 [facility] Comment on above: Order Comment: Speci men Type: BLOOD SPECIMENOrdering Facility: [facility] Address: [address] [place] [address] Result Comment: Resu lts may be falsely depressed after the administration of Sulfasalazine and/or Sulfapyridine. Performed By: #### 2 4321-2, 10544-0, TSHRF, 3023-7, 08162-8 ####[facility]ORATORYCLIA [id number] [address] STATES OF [facility] Anion gap [Moles/Vol] 12 mmol/L Normal 5-16 [facility] Comment on above: Order Comment: Speci men Type: BLOOD SPECIMENOrdering Facility: [facility] Address: [address] [place] [address] Performed By: #### 2 4321-2, 50592-6, TSHRF, 302-7, 24123-6 ####[facility]ORATORYCLIA [id number] [place] [id number] [place] AST [Catalytic activity/Vol] 33 U/L Normal 8-34 [facility] Comment on above: Order Comment: Speci men Type: BLOOD SPECIMENOrdering Facility: [facility] Address: [address] [place] [address] Result Comment: Resu lts may be falsely depressed after the administration of Sulfasalazine and/or Sulfapyridine. Performed By: #### 2 4321-2, , TSHRF, 3024-7, 26180-3 ####[facility]ORATORYCLIA [id number] [place] [address] [place] Bilirubin [Mass/Vol] 0.3 mg/dL Normal 0.2-1.0 [facility] Comment on above: Order Comment: Speci men Type: BLOOD SPECIMENOrdering Facility: [facility] Address: [address] [place] [address] Performed By: #### 2 4321-2, , TSHRF, 3024-7, 37907-1 ####[facility]ORATORYCLIA [id number] [place] [id number] [place] Calcium [Mass/Vol] 8.8 mg/dL Normal 8.5-10.5 [facility] Comment on above: Order Comment: Speci men Type: BLOOD SPECIMENOrdering Facility: [facility] Address: [address] [place] [address] Performed By: #### 2 4320-2, , TSHRF, 302-7, 25642-8 ####[facility]ORATORYCLIA [id number] [place] [address] [place] Chloride [Moles/Vol] 114 mmol/L High 98-107 [facility] Comment on above: Order Comment: Speci men Type: BLOOD SPECIMENOrdering Facility: [facility] Address: [address] [place] [address] Performed By: #### 2 4321-2, , TSHRF, 302-7, 54585-4 ####[facility]ORATORYCLIA [id number] [place] [address] [place] CO2 [Moles/Vol] 21 mmol/L Normal 21-32 [facility] Comment on above: Order Comment: Speci men Type: BLOOD SPECIMENOrdering Facility: [facility] Address: [address] [place] [address] Performed By: #### 2 4321-2, 80532-9, TSHRF, 3024-7, 82088-0 ####[facility]ATORYCLIA [id number] [place] [id number] [place] Creatinine [Mass/Vol] 0.53 mg/dL Normal 0.51-0.95 [facility] Comment on above: Order Comment: Speci richard Type: BLOOD SPECIMENOrdering Facility: [facility] Address: [address] [place] [address] Result Comment: Marilin ents receiving either N-Acetylcysteine (NAC) or Metamizole prior to venipuncture, may have falsely depressed results. Performed By: #### 2 4321-2, 88008-6, [facility], 3024-01, ####[facility]ORATORYCLIA [id number] [place] [id number] [place] [facility] Creatinine and Glomerular filtration rate.predicted panel (S/P/Bld) 115 mL/min/1.73m??? Normal >=60 [facility] Comment on above: Order Comment: Irmai richard Type: BLOOD SPECIMENOrdering Facility: [facility] Address: [address] [place] [address] Result Comment: Chrissy mated Glomerular Filtration Rate [...] actual GFR. Performed By: #### 2 4321-2, 85385-3, [facility], 3024-01, ####[facility]ATORYCLIA [id number] [place] [id number] [place] Glucose [Mass/Vol] 100 mg/dL Normal 70-100 [facility] Comment on above: Order Comment: Irmai richard Type: BLOOD SPECIMENOrdering Facility: [facility] Address: [address] [place] [address] Result Comment: The [place] Diabetes Association (ADA) provides guidance for cutoff [...] Standards of Medical Care in Diabetes 2016, [place] Diabetes Association. Diabetes Care. 2016.39(Suppl 1).Results may be falsely elevated after the administration of Sulfapyridine.Results may be falsely depressed after the administration of Sulfasalazine. Performed By: #### 2 4321-2, 28576-4, [facility], 3023-, 86300-6 ####[facility]ORATORYCLIA [id number] [place] [address] [place] Protein [Mass/Vol] 5.4 g/dL Low 6.0-8.5 [facility] Comment on above: Order Comment: Speci men Type: BLOOD SPECIMENOrdering Facility: [facility] Address: [address] [place] [address] Performed By: #### 2 4321-2, 35622-5, [facility], 3024-01, 49302-0 ####[facility]ORATORYCLIA [id number] [place] [address] [place] Sodium [Moles/Vol] 147 mmol/L High 136-145 [facility] Comment on above: Order Comment: Speci men Type: BLOOD SPECIMENOrdering Facility: [facility] Address: [address] [place] [address] Performed By: #### 2 4321-2, 64505-7, [facility], 3024-01, 67137-4 ####[facility]ORATORYCLIA [id number] [place] [id number] [place] MORPH WAM REFLEXon 5 Ovalocytes LM Ql (Bld) Few Normal [facility] Comment on above: Order Comment: Speci men Type: BLOOD SPECIMENOrdering Facility: [facility] Address: [address] [place] [address] Performed By: #### 5 8410-2, WAMMR ####[facility]ORATORYCLIA [id number] [place] [address] [place] Platelet clump LM Ql (Bld) Present Normal [facility] Comment on above: Order Comment: Speci men Type: BLOOD SPECIMENOrdering Facility: [facility] Address: [address] [place] [address] Performed By: #### 5 8410-2, WAMMR ####[facility]ORATORYCLIA [id number] [place] [address] [facility] [place] Platelets Estimate (Bld) [#/Vol] Decreased Normal [facility] Comment on above: Order Comment: Speci men Type: BLOOD SPECIMENOrdering Facility: [facility] Address: [address] [place] [address] Performed By: #### 5 8410-2, WAMMR ####[facility]ORATORYCLIA [id number] [place] [address] [place] Polychromasia LM Ql (Bld) Slight Normal [facility] Comment on above: Order Comment: Speci men Type: BLOOD SPECIMENOrdering Facility: [facility] Address: [address] [place] [address] Performed By: #### 5 8410-2, WAMMR ####[facility]ORATORYCLIA [id number] [place] [address] [place] RED CELL MORPH Reviewed: see result s of individual morphologies Normal [facility] Comment on above: Order Comment: Speci men Type: BLOOD SPECIMENOrdering Facility: [facility] Address: [address] [place] [id number] Performed By: #### 5 8410-2, WAMMR ####[facility]ORATORYCLIA [id number] [place] [address] [place] Magnesium SerPl[facility]09 Magnesium [Mass/Vol] 1.9 mg/dL Normal 1.6-2.6 [facility] Comment on above: Order Comment: Speci men Type: BLOOD SPECIMENOrdering Facility: [facility] Address: [address] [place] [address] Performed By: #### 2 4321-2, 27339-6, TSHRF, 3024-7, 47350-2 ####[facility]ORATORYCLIA [id number] [place] [address] [place] T4 Free SerPl-mCncon 025 Free T4 [Mass/Vol] 1.4 ng/dL Normal 0.8-1.5 [facility] Comment on above: Order Comment: Speci men Type: BLOOD SPECIMENOrdering Facility: [facility] Address: [address] [place] [address] Performed By: #### 2 4321-2, 45906-4, TSHRF, 3024-7, 15110-5 ####[facility]ORATORYCLIA [id number] [address] STATES OF [facility] TSH W/REFLEX FT4on TSH Qn 3.832 m[IU]/L High 0.358-3.74 0 [facility] Comment on above: Order Comment: Speci men Type: BLOOD SPECIMENOrdering Facility: [facility] Address: [address] [place] [address] Result Comment: 3rd generation ultra sensitive TSH. Performed By: #### 2 4321-2, 31865-5, TSHRF, 3024-7, 85717-5 ####[facility]ORATORYCLIA [id number] [place] [address] [place] XR CHEST 1V FRONTALon 2024 XR CHEST 1V FRONTAL Normal [facility] Basic metabolic 2000 panelon 12-08-2024 Anion gap [Moles/Vol] 10 mmol/L Normal 5-16 [facility] Comment on above: Order Comment: Speci men Type: BLOOD SPECIMENOrdering Facility: [facility] Address: [address] [place] [address] Performed By: #### 2 4321-2 ####[facility]ORATORYCLIA [id number] [place] [id number] [place] Calcium [Mass/Vol] 9.2 mg/dL Normal 8.5-10.5 [facility] Comment on above: Order Comment: Speci men Type: BLOOD SPECIMENOrdering Facility: [facility] Address: [address] [place] [address] Performed By: #### 2 4321-2 ####[facility]ORATORYCLIA [id number] [place] [id number] [place] Chloride [Moles/Vol] 110 mmol/L High 98-107 [facility] Comment on above: Order Comment: Speci men Type: BLOOD SPECIMENOrdering Facility: [facility] Address: [address] [place] [address] Performed By: #### 2 4321-2 ####[facility]ORATORYCLIA [id number] [place] [address] [place] CO2 [Moles/Vol] 25 mmol/L Normal 21-32 [facility] Comment on above: Order Comment: Speci men Type: BLOOD SPECIMENOrdering Facility: [facility] Address: [address] [place] [address] Performed By: #### 2 4321-2 ####[facility]ORATORYCLIA [id number] [place] [address] [place] Creatinine [Mass/Vol] 0.56 mg/dL Normal 0.51-0.95 [facility] Comment on above: Order Comment: Speci men Type: BLOOD SPECIMENOrdering Facility: [facility] Address: [address] [place] [address] Result Comment: Marilin ents receiving either N-Acetylcysteine (NAC) or Metamizole prior to venipuncture, may have falsely depressed results. Performed By: #### 2 4321-2 ####[facility]ORATORYCLIA [id number] [place] [id number] [place] Creatinine and Glomerular filtration rate.predicted panel (S/P/Bld) 113 mL/min/1.73m??? Normal >=60 [facility] Comment on above: Order Comment: Syd ramos Type: BLOOD SPECIMENOrdering Facility: [facility] Address: [address] [place] [address] Result Comment: Chrissy mated Glomerular Filtration Rate [...] actual GFR. Performed By: #### 2 4321-2 ####[facility]ORATORYCLIA [id number] [place] [id number] [place] Glucose [Mass/Vol] 97 mg/dL Normal 70-100 [facility] Comment on above: Order Comment: Syd ramos Type: BLOOD SPECIMENOrdering Facility: [facility] Address: [address] [place] [address] Result Comment: The [place] Diabetes Association (ADA) provides guidance for cutoff [...] Standards of Medical Care in Diabetes 2016, [place] Diabetes Association. Diabetes Care. 2016.39(Suppl 1).Results may be falsely elevated after the administration of Sulfapyridine.Results may be falsely depressed after the administration of Sulfasalazine. Performed By: #### 2 4321-2 ####[facility]ORATORYCLIA [id number] [place] [id number] [place] Potassium [Moles/Vol] 3.5 mmol/L Normal 3.5-5.1 [facility] Comment on above: Order Comment: Speci men Type: BLOOD SPECIMENOrdering Facility: [facility] Address: [address] [place] [address] Performed By: #### 2 4321-2 ####[facility] LABORATORYCLIA [id number] [place] [id number] [place] [facility] Sodium [Moles/Vol] 145 mmol/L Normal 136-145 [facility] Comment on above: Order Comment: Speci men Type: BLOOD SPECIMENOrdering Facility: [facility] Address: [address] [place] [address] Performed By: #### 2 4321-2 ####[facility]ORATORYCLIA [id number] [place] [id number] [place] Urea nitrogen [Mass/Vol] 8 mg/dL Normal 7-26 [facility] Comment on above: Order Comment: Speci men Type: BLOOD SPECIMENOrdering Facility: [facility] Address: [address] [place] [address] Performed By: #### 2 4321-2 ####[facility]ORATORYCLIA [id number] [place] [id number] [place] CASE MANAGEMon 12-08-2024 CASE MANAGEM Normal [facility] CBC panel Auto (Bld)on 12-08 Erythrocyte distribution width (RBC) [Ratio] 13.2 % Normal 11.5-15.0 [facility] Comment on above: Order Comment: Speci men Type: BLOOD SPECIMENOrdering Facility: [facility] Address: [address] [place] [address] Performed By: #### 5 8410-2 ####[facility]ORATORYCLIA [id number] [place] [id number] [place] Hematocrit (Bld) [Volume fraction] 38.8 % Normal 36.0-46.0 [facility] Comment on above: Order Comment: Speci men Type: BLOOD SPECIMENOrdering Facility: [facility] Address: [address] [place] [address] Performed By: #### 5 8410-2 ####[facility] LABORATORYCLIA [id number] [place] [address] [place] Hemoglobin (Bld) [Mass/Vol] 12.9 g/dL Normal 11.5-15.5 [facility] Comment on above: Order Comment: Speci men Type: BLOOD SPECIMENOrdering Facility: [facility] Address: [address] [place] [address] Performed By: #### 5 8410-2 ####[facility] LABORATORYCLIA [id number] [address] MCH (RBC) [Entitic mass] 31.5 pg Normal 26.0-34.0 [facility] Comment on above: Order Comment: Speci men Type: BLOOD SPECIMENOrdering Facility: [facility] Address: [address] [place] [address] Performed By: #### 5 8410-2 ####[facility] LABORATORYCLIA [id number] [address] [place] MCHC (RBC) [Mass/Vol] 33.2 g/dL Normal 30.5-36.0 [facility] Comment on above: Order Comment: Speci men Type: BLOOD SPECIMENOrdering Facility: [facility] Address: [address] [place] [address] Performed By: #### 5 8410-2 ####[facility]ORATORYCLIA [id number] [address] [place] MCV (RBC) [Entitic vol] 94.9 fL Normal 80.0-100.0 [facility] Comment on above: Order Comment: Speci men Type: BLOOD SPECIMENOrdering Facility: [facility] Address: [address] [place] [address] Performed By: #### 5 8410-2 ####[facility] LABORATORYCLIA [id number] [address] [place] Nucleated RBC (Bld) [#/Vol] 10*3/uL Normal <0.01 [facility] Comment on above: Order Comment: Speci men Type: BLOOD SPECIMENOrdering Facility: [facility] Address: [address] [place] [id number] Performed By: #### 5 8410-2 ####[facility] LABORATORYCLIA [id number] [place] [id number] [place] Platelet mean volume (Bld) [Entitic vol] 9.7 fL Normal 9.0-12.7 [facility] Comment on above: Order Comment: Speci men Type: BLOOD SPECIMENOrdering Facility: [facility] Address: [address] [place] [address] Performed By: #### 5 8410-2 ####[facility] LABORATORYCLIA [id number] [place] [id number] [place] Platelets (Bld) [#/Vol] 151 10*3/uL Normal 150-400 [facility] Comment on above: Order Comment: Speci men Type: BLOOD SPECIMENOrdering Facility: [facility] Address: [address] [place] [address] Performed By: #### 5 8410-2 ####[facility] LABORATORYCLIA [id number] [place] [address] [place] RBC (Bld) [#/Vol] 4.09 10*6/uL Normal 3.90-5.20 [facility] Comment on above: Order Comment: Speci men Type: BLOOD SPECIMENOrdering Facility: [facility] Address: [address] [place] [address] Performed By: #### 5 8410-2 ####[facility]ORATORYCLIA [id number] [place] [id number] [place] WBC (Bld) [#/Vol] 5.76 10*3/uL Normal 3.70-11.00 [facility] Comment on above: Order Comment: Speci men Type: BLOOD SPECIMENOrdering Facility: [facility] Address: [address] [place] [address] Performed By: #### 5 8410-2 ####[facility] LABORATORYCLIA [id number] [place] [id number] [place] CONSULTon 05-24-2025 CONSULT Normal [facility] 25(OH)D3 SerPl-mCncon 2024 25-hydroxyvitamin D3 [Mass/Vol] 63.8 ng/mL Normal 30.0-100.0 [facility] Comment on above: Order Comment: Speci men Type: BLOOD SPECIMENOrdering Facility: [facility] Address: [address] [place] [address] Result Comment: Defi ciency\X09\Less than 20 ng/mLInsufficiency\X09\20 - Less than 30 ng/mLSufficiency\X09\30 - 100 ng/mL Performed By: #### 2 284-8, 1988-09 ####[facility] LABORATORYCLIA [id number] [place] [address] [place] Basic metabolic 2000 panelon 12-07-2024 Anion gap [Moles/Vol] 10 mmol/L Normal 5-16 [facility] Comment on above: Order Comment: Speci men Type: BLOOD SPECIMENOrdering Facility: [facility] Address: [address] [place] [address] Performed By: #### 2 4321-2 ####[facility] LABORATORYCLIA [id number] [place] [address] [place] Calcium [Mass/Vol] 9.0 mg/dL Normal 8.5-10.5 [facility] Comment on above: Order Comment: Speci men Type: BLOOD SPECIMENOrdering Facility: [facility] Address: [address] [place] [address] Performed By: #### 2 4321-2 ####[facility] LABORATORYCLIA [id number] [place] [id number] [place] Chloride [Moles/Vol] 111 mmol/L High 98-107 [facility] Comment on above: Order Comment: Speci men Type: BLOOD SPECIMENOrdering Facility: [facility] Address: [address] [place] [address] Performed By: #### 2 4321-2 ####[facility] LABORATORYCLIA [id number] [address] [place] CO2 [Moles/Vol] 25 mmol/L Normal 21-32 [facility] Comment on above: Order Comment: Syd ramos Type: BLOOD SPECIMENOrdering Facility: [facility] Address: [address] [place] [address] Performed By: #### 2 4321-2 ####[facility] LABORATORYCLIA [id number] [address] [place] Creatinine [Mass/Vol] 0.55 mg/dL Normal 0.51-0.95 [facility] Comment on above: Order Comment: Syd ramos Type: BLOOD SPECIMENOrdering Facility: [facility] Address: [address] [place] [address] Result Comment: Marilin ents receiving either N-Acetylcysteine (NAC) or Metamizole prior to venipuncture, may have falsely depressed results. Performed By: #### 2 4321-2 ####[facility] LABORATORYCLIA [id number] [address] Creatinine and Glomerular filtration rate.predicted panel (S/P/Bld) 114 mL/min/1.73m??? Normal >=60 [facility] Comment on above: Order Comment: Syd ramos Type: BLOOD SPECIMENOrdering Facility: [facility] Address: [address] [place] [address] Result Comment: Chrissy mated Glomerular Filtration Rate [...] actual GFR. Performed By: #### 2 4321-2 ####[facility] LABORATORYCLIA [id number] [address] [place] Glucose [Mass/Vol] 109 mg/dL High 70-100 [facility] Comment on above: Order Comment: Syd ramos Type: BLOOD SPECIMENOrdering Facility: [facility] Address: [address] [phone] Result Comment: The [place] Diabetes Association (ADA) provides guidance for cutoff [...] Standards of Medical Care in Diabetes 2016, [place] [employer]. Diabetes Care. 2016.39(Suppl 1).Results may be falsely elevated after the administration of Sulfapyridine.Results may be falsely depressed after the administration of Sulfasalazine. Performed By: #### 2 4321-2 ####[facility] LABORATORYCLIA [id number] [place] [address] [place] Potassium [Moles/Vol] 3.7 mmol/L Normal 3.5-5.1 [facility] Comment on above: Order Comment: Speci men Type: BLOOD SPECIMENOrdering Facility: [facility] Address: [address] [place] [phone] Performed By: #### 2 4321-2 ####[facility]ORATORYCLIA [id number] [place] [address] [place] Sodium [Moles/Vol] 146 mmol/L High 136-145 [facility] Comment on above: Order Comment: Speci men Type: BLOOD SPECIMENOrdering Facility: [facility] Address: [address] [phone] Performed By: #### 2 4321-2 ####[facility]ORATORYCLIA [id number] [place] [address] [place] Urea nitrogen [Mass/Vol] 8 mg/dL Normal 7-26 [facility] Comment on above: Order Comment: Speci men Type: BLOOD SPECIMENOrdering Facility: [facility] Address: [address] [phone] Performed By: #### 2 4321-2 ####[facility] LABORATORYCLIA [id number] [place] [id number] [place] CASE MANAGEMon 12-07-2024 CASE MANAGEM Normal [facility] CASE MANAGEM Normal [facility] CBC panel Auto (Bld)on 12-07 Erythrocyte distribution width (RBC) [Ratio] 13.2 % Normal 11.5-15.0 [facility] Comment on above: Order Comment: Speci men Type: BLOOD SPECIMENOrdering Facility: [facility] Address: [address] [place] [address] Performed By: #### 5 8410-2 ####[facility] LABORATORYCLIA [id number] [address] STATES [facility] Hematocrit (Bld) [Volume fraction] 43.4 % Normal 36.0-46.0 [facility] Comment on above: Order Comment: Speci men Type: BLOOD SPECIMENOrdering Facility: [facility] Address: [address] [place] [address] Performed By: #### 5 8410-2 ####[facility]ORATORYCLIA [id number] [place] [address] [place] Hemoglobin (Bld) [Mass/Vol] 14.8 g/dL Normal 11.5-15.5 [facility] Comment on above: Order Comment: Speci men Type: BLOOD SPECIMENOrdering Facility: [facility] Address: [address] [place] [address] Performed By: #### 5 8410-2 ####[facility]ORATORYCLIA [id number] [place] [address] [place] MCH (RBC) [Entitic mass] 32.9 pg Normal 26.0-34.0 [facility] Comment on above: Order Comment: Speci men Type: BLOOD SPECIMENOrdering Facility: [facility] Address: [address] [place] [address] Performed By: #### 5 8410-2 ####[facility]ORATORYCLIA [id number] [address] [place] MCHC (RBC) [Mass/Vol] 34.1 g/dL Normal 30.5-36.0 [facility] Comment on above: Order Comment: Speci men Type: BLOOD SPECIMENOrdering Facility: [facility] Address: [address] [place] [address] Performed By: #### 5 8410-2 ####[facility]ORATORYCLIA [id number] [place] [address] [place] MCV (RBC) [Entitic vol] 96.4 fL Normal 80.0-100.0 [facility] Comment on above: Order Comment: Speci men Type: BLOOD SPECIMENOrdering Facility: [facility] Address: [address] [place] [address] Performed By: #### 5 8410-2 ####[facility]ORATORYCLIA [id number] [address] [place] Nucleated RBC (Bld) [#/Vol] 10*3/uL Normal <0.01 [facility] Comment on above: Order Comment: Speci men Type: BLOOD SPECIMENOrdering Facility: [facility] Address: [address] [place] [address] Performed By: #### 5 8410-2 ####[facility]ORATORYCLIA [id number] [place] [address] [place] Platelet mean volume (Bld) [Entitic vol] 9.0 fL Normal 9.0-12.7 [facility] Comment on above: Order Comment: Speci men Type: BLOOD SPECIMENOrdering Facility: [facility] Address: [address] [place] [address] Performed By: #### 5 8410-2 ####[facility]ORATORYCLIA [id number] [place] [address] [place] Platelets (Bld) [#/Vol] 115 10*3/uL Low 150-400 [facility] Comment on above: Order Comment: Speci men Type: BLOOD SPECIMENOrdering Facility: [facility] Address: [facility] [place] [address] Performed By: #### 5 8410-2 ####[facility]ORATORYCLIA [id number] [place] [id number] [place] RBC (Bld) [#/Vol] 4.50 10*6/uL Normal 3.90-5.20 [facility] Comment on above: Order Comment: Speci men Type: BLOOD SPECIMENOrdering Facility: [facility] Address: [address] [place] [address] Performed By: #### 5 8410-2 ####[facility]ORATORYCLIA [id number] [place] [id number] [place] WBC (Bld) [#/Vol] 5.87 10*3/uL Normal 3.70-11.00 [facility] Comment on above: Order Comment: Speci men Type: BLOOD SPECIMENOrdering Facility: [facility] Address: [address] [place] [address] Performed By: #### 5 8410-2 ####[facility]ORATORYCLIA [id number] [place] [address] [place] Folate SerPl-ncon 12-08-19 25 Folate [Mass/Vol] 16.8 ng/mL Normal >3.0 [facility] Comment on above: Order Comment: Speci men Type: BLOOD SPECIMENOrdering Facility: [facility] Address: [address] [place] [address] Performed By: #### 2 284-8, 1988-09 ####[facility]ORATORYCLIA [id number] [place] [id number] [place] THERAPY NTon 12-07-2024 THERAPY NT Normal [facility] THERAPY NT Normal [facility] Vit B12 SerPl-mCncon 025 Cobalamin (Vitamin B12) [Mass/Vol] 627 pg/mL Normal 193-986 [facility] Comment on above: Order Comment: Speci men Type: BLOOD SPECIMENOrdering Facility: [facility] Address: [address] [place] [address] Performed By: #### 2 132-9 ####[facility]ORATORYCLIA [id number] [place] [id number] [place] Basic metabolic 2000 panelon 12-06-2024 Anion gap [Moles/Vol] 9 mmol/L Normal 5-16 [facility] Comment on above: Order Comment: Speci men Type: BLOOD SPECIMENOrdering Facility: [facility] Address: [address] [place] [address] Performed By: #### 2 4321-2 ####[facility]ORATORYCLIA [id number] [place] [address] [place] Calcium [Mass/Vol] 8.9 mg/dL Normal 8.5-10.5 [facility] Comment on above: Order Comment: Speci men Type: BLOOD SPECIMENOrdering Facility: [facility] Address: [address] [place] [address] Performed By: #### 2 4321-2 ####[facility]ORATORYCLIA [id number] [place] [address] [place] Chloride [Moles/Vol] 110 mmol/L High 98-107 [facility] Comment on above: Order Comment: Speci men Type: BLOOD SPECIMENOrdering Facility: [facility] Address: [address] [place] [address] Performed By: #### 2 4321-2 ####[facility]ORATORYCLIA [id number] [place] [address] [place] CO2 [Moles/Vol] 23 mmol/L Normal 21-32 [facility] Comment on above: Order Comment: Speci men Type: BLOOD SPECIMENOrdering Facility: [facility] Address: [address] [place] [address] Performed By: #### 2 4321-2 ####[facility]ORATORYCLIA [id number] [place] [address] [place] Creatinine [Mass/Vol] 0.47 mg/dL Low 0.51-0.95 [facility] Comment on above: Order Comment: Speci men Type: BLOOD SPECIMENOrdering Facility: [facility] Address: [address] [phone] Result Comment: Marilin ents receiving either N-Acetylcysteine (NAC) or Metamizole prior to venipuncture, may have falsely depressed results. Performed By: #### 2 4321-2 ####[facility]ORATORYCLIA [id number] [place] [address] [place] Creatinine and Glomerular filtration rate.predicted panel (S/P/Bld) 118 mL/min/1.73m??? Normal >=60 [facility] Comment on above: Order Comment: Speci men Type: BLOOD SPECIMENOrdering Facility: [facility] Address: [address] [place] [address] Result Comment: Chrissy mated Glomerular Filtration Rate [...] actual GFR. Performed By: #### 2 4321-2 ####[facility]ORATORYCLIA [id number] [place] [address] [place] Glucose [Mass/Vol] 101 mg/dL High 70-100 [facility] Comment on above: Order Comment: Syd ramos Type: BLOOD SPECIMENOrdering Facility: [facility] Address: [address] [place] [phone] Result Comment: The [place] Diabetes Association (ADA) provides guidance for cutoff [...] Standards of Medical Care in Diabetes 2016, [place] Diabetes Association. Diabetes Care. 2016.39(Suppl 1).Results may be falsely elevated after the administration of Sulfapyridine.Results may be falsely depressed after the administration of Sulfasalazine. Performed By: #### 2 4321-2 ####[facility]ORATORYCLIA [id number] [place] [address] [place] Potassium [Moles/Vol] 3.7 mmol/L Normal 3.5-5.1 [facility] Comment on above: Order Comment: Speci men Type: BLOOD SPECIMENOrdering Facility: [facility] Address: [address] [place] [address] Performed By: #### 2 4321-2 ####[facility]ORATORYCLIA [id number] [address] [place] Sodium [Moles/Vol] 142 mmol/L Normal 136-145 [facility] Comment on above: Order Comment: Speci men Type: BLOOD SPECIMENOrdering Facility: [facility] Address: [address] [place] [address] Performed By: #### 2 4321-2 ####[facility]ORATORYCLIA [id number] [place] [address] [place] Urea nitrogen [Mass/Vol] 8 mg/dL Normal 7-26 [facility] Comment on above: Order Comment: Speci men Type: BLOOD SPECIMENOrdering Facility: [facility] Address: [address] [place] [address] Performed By: #### 2 4321-2 ####[facility]ORATORYCLIA [id number] [place] [id number] [place] CBC panel Auto (Bld)on 12-06 Erythrocyte distribution width (RBC) [Ratio] 13.2 % Normal 11.5-15.0 [facility] Comment on above: Order Comment: Speci men Type: BLOOD SPECIMENOrdering Facility: [facility] Address: [address] [place] [address] Performed By: #### 5 8410-2 ####[facility]ORATORYCLIA [id number] [address] [place] Hematocrit (Bld) [Volume fraction] 44.2 % Normal 36.0-46.0 [facility] Comment on above: Order Comment: Speci men Type: BLOOD SPECIMENOrdering Facility: [facility] Address: [address] [place] [address] Performed By: #### 5 8410-2 ####[facility]ORATORYCLIA [id number] [place] [address] [place] Hemoglobin (Bld) [Mass/Vol] 15.4 g/dL Normal 11.5-15.5 [facility] Comment on above: Order Comment: Speci men Type: BLOOD SPECIMENOrdering Facility: [facility] Address: [address] [place] [address] Performed By: #### 5 8410-2 ####[facility]ORATORYCLIA [id number] [address] [place] MCH (RBC) [Entitic mass] 32.5 pg Normal 26.0-34.0 [facility] Comment on above: Order Comment: Speci men Type: BLOOD SPECIMENOrdering Facility: [facility] Address: [address] [place] [address] Performed By: #### 5 8410-2 ####[facility]ORATORYCLIA [id number] [address] [place] MCHC (RBC) [Mass/Vol] 34.8 g/dL Normal 30.5-36.0 [facility] Comment on above: Order Comment: Speci men Type: BLOOD SPECIMENOrdering Facility: [facility] Address: [address] [place], [place] [id number] Performed By: #### 5 8410-2 ####[facility]ORATORYCLIA [id number] [address] [place] MCV (RBC) [Entitic vol] 93.2 fL Normal 80.0-100.0 [facility] Comment on above: Order Comment: Speci men Type: BLOOD SPECIMENOrdering Facility: [facility] Address: [address] [place] [address] Performed By: #### 5 8410-2 ####[facility]ORATORYCLIA [id number] [place] [id number] [place] Nucleated RBC (Bld) [#/Vol] 10*3/uL Normal <0.01 [facility] Comment on above: Order Comment: Speci men Type: BLOOD SPECIMENOrdering Facility: [facility] Address: [address] [place] [address] Performed By: #### 5 8410-2 ####[facility]ORATORYCLIA [id number] [place] [id number] [place] Platelet mean volume (Bld) [Entitic vol] 9.8 fL Normal 9.0-12.7 [facility] Comment on above: Order Comment: Speci men Type: BLOOD SPECIMENOrdering Facility: [facility] Address: [address] [place] [address] Performed By: #### 5 8410-2 ####[facility]ORATORYCLIA [id number] [address] [place] Platelets (Bld) [#/Vol] 133 10*3/uL Low 150-400 [facility] Comment on above: Order Comment: Speci men Type: BLOOD SPECIMENOrdering Facility: [facility] Address: [address] [place] [address] Result Comment: Micr otainer sample. No clot detected. Performed By: #### 5 8410-2 ####[facility]ORATORYCLIA [id number] [place] [id number] [place] RBC (Bld) [#/Vol] 4.74 10*6/uL Normal 3.90-5.20 [facility] Comment on above: Order Comment: Speci men Type: BLOOD SPECIMENOrdering Facility: [facility] Address: [address] [place] [address] Performed By: #### 5 8410-2 ####[facility]ORATORYCLIA [id number] [place] [id number] [place] WBC (Bld) [#/Vol] 7.18 10*3/uL Normal 3.70-11.00 [facility] Comment on above: Order Comment: Speci men Type: BLOOD SPECIMENOrdering Facility: [facility] Address: [address] [place] [address] Performed By: #### 5 8410-2 ####[facility]ORATORYCLIA [id number] [place] [id number] [facility] [place] THERAPY NTon 12-06-2024 THERAPY NT Normal [facility] THERAPY NT Normal [facility] Basic metabolic 2000 panelon 12-05-2024 Anion gap [Moles/Vol] 9 mmol/L Normal 5-16 [facility] Comment on above: Order Comment: Speci men Type: BLOOD SPECIMENOrdering Facility: [facility] Address: [address] [place] [address] Performed By: #### 2 4321-2 ####[facility]ORATORYCLIA [id number] [place] [address] [place] Calcium [Mass/Vol] 9.1 mg/dL Normal 8.5-10.5 [facility] Comment on above: Order Comment: Speci men Type: BLOOD SPECIMENOrdering Facility: [facility] Address: [address] [place] [address] Performed By: #### 2 4321-2 ####[facility]ORATORYCLIA [id number] [place] [id number] [place] Chloride [Moles/Vol] 107 mmol/L Normal 98-107 [facility] Comment on above: Order Comment: Speci men Type: BLOOD SPECIMENOrdering Facility: [facility] Address: [address] [place] [address] Performed By: #### 2 4321-2 ####[facility]ORATORYCLIA [id number] [place] [id number] [place] CO2 [Moles/Vol] 23 mmol/L Normal 21-32 [facility] Comment on above: Order Comment: Speci men Type: BLOOD SPECIMENOrdering Facility: [facility] Address: [address] [place] [address] Performed By: #### 2 4321-2 ####[facility]ORATORYCLIA [id number] [place] [id number] [place] Creatinine [Mass/Vol] 0.56 mg/dL Normal 0.51-0.95 [facility] Comment on above: Order Comment: Syd ramos Type: BLOOD SPECIMENOrdering Facility: [facility] Address: [address] [place] [address] Result Comment: Marilin ents receiving either N-Acetylcysteine (NAC) or Metamizole prior to venipuncture, may have falsely depressed results. Performed By: #### 2 4321-2 ####[facility]ORATORYCLIA [id number] [address] Creatinine and Glomerular filtration rate.predicted panel (S/P/Bld) 113 mL/min/1.73m??? Normal >=60 [facility] Comment on above: Order Comment: Syd ramos Type: BLOOD SPECIMENOrdering Facility: [facility] Address: [address] [place] [address] Result Comment: Chrissy mated Glomerular Filtration Rate [...] actual GFR. Performed By: #### 2 4321-2 ####[facility]ORATORYCLIA [id number] [place] [address] [place] Glucose [Mass/Vol] 114 mg/dL High 70-100 [facility] Comment on above: Order Comment: Syd ramos Type: BLOOD SPECIMENOrdering Facility: [facility] Address: [address] [place] [address] Result Comment: The [place] Diabetes Association (ADA) provides guidance for cutoff [...] Standards of Medical Care in Diabetes 2016, [place] [employer] Association. Diabetes Care. 2016.39(Suppl 1).Results may be falsely elevated after the administration of Sulfapyridine.Results may be falsely depressed after the administration of Sulfasalazine. Performed By: #### 2 4321-2 ####[facility]ORATORYCLIA [id number] [place] [address] [place] Potassium [Moles/Vol] 3.9 mmol/L Normal 3.5-5.1 [facility] Comment on above: Order Comment: Syd ramos Type: BLOOD SPECIMENOrdering Facility: [facility] Address: [address] [place] [address] Performed By: #### 2 4321-2 ####[facility]ORATORYCLIA [id number] [place] [address] [place] Sodium [Moles/Vol] 139 mmol/L Normal 136-145 [facility] Comment on above: Order Comment: Syd ramos Type: BLOOD SPECIMENOrdering Facility: [facility] Address: [address] [place] [address] Performed By: #### 2 4321-2 ####[facility]ORATORYCLIA [id number] [place] [address] [place] Urea nitrogen [Mass/Vol] 8 mg/dL Normal 7-26 [facility] Comment on above: Order Comment: Syd ramos Type: BLOOD SPECIMENOrdering Facility: [facility] Address: [address] [place] [address] Performed By: #### 2 4321-2 ####[facility] LABORATORYCLIA [id number] [address] [place] CASE MANAGEMon 12-05-2024 CASE MANAGEM Normal [facility] CBC panel Auto (Bld)on 12-05 Erythrocyte distribution width (RBC) [Ratio] 13.4 % Normal 11.5-15.0 [facility] Comment on above: Order Comment: Speci men Type: BLOOD SPECIMENOrdering Facility: [facility] Address: [address] [place] [address] Performed By: #### 5 8410-2 ####[facility] LABORATORYCLIA [id number] [address] [place] Hematocrit (Bld) [Volume fraction] 43.1 % Normal 36.0-46.0 [facility] Comment on above: Order Comment: Speci men Type: BLOOD SPECIMENOrdering Facility: [facility] Address: [address] [place] [address] Performed By: #### 5 8410-2 ####[facility] LABORATORYCLIA [id number] [address] [place] Hemoglobin (Bld) [Mass/Vol] 14.6 g/dL Normal 11.5-15.5 [facility] Comment on above: Order Comment: Speci men Type: BLOOD SPECIMENOrdering Facility: [facility] Address: [address] [place] [address] Performed By: #### 5 8410-2 ####[facility] LABORATORYCLIA [id number] [place] [address] [place] MCH (RBC) [Entitic mass] 32.1 pg Normal 26.0-34.0 [facility] Comment on above: Order Comment: Speci men Type: BLOOD SPECIMENOrdering Facility: [facility] Address: [address] [place] [address] Performed By: #### 5 8410-2 ####[facility] LABORATORYCLIA [id number] [place] [id number] [place] MCHC (RBC) [Mass/Vol] 33.9 g/dL Normal 30.5-36.0 [facility] Comment on above: Order Comment: Speci men Type: BLOOD SPECIMENOrdering Facility: [facility] Address: [address] [place] [address] Performed By: #### 5 8410-2 ####[facility] LABORATORYCLIA [id number] [place] [id number] [facility] MCV (RBC) [Entitic vol] 94.7 fL Normal 80.0-100.0 [facility] Comment on above: Order Comment: Speci men Type: BLOOD SPECIMENOrdering Facility: [facility] Address: [address] [place] [address] Performed By: #### 5 8410-2 ####[facility] LABORATORYCLIA [id number] [address] Nucleated RBC (Bld) [#/Vol] 10*3/uL Normal <0.01 [facility] Comment on above: Order Comment: Speci men Type: BLOOD SPECIMENOrdering Facility: [facility] Address: [address] [place] [address] Performed By: #### 5 8410-2 ####[facility] LABORATORYCLIA [id number] [address] [place] Platelet mean volume (Bld) [Entitic vol] 8.8 fL Low 9.0-12.7 [facility] Comment on above: Order Comment: Speci men Type: BLOOD SPECIMENOrdering Facility: [facility] Address: [address] [place] [address] Performed By: #### 5 8410-2 ####[facility] LABORATORYCLIA [id number] [address] [place] Platelets (Bld) [#/Vol] 129 10*3/uL Low 150-400 [facility] Comment on above: Order Comment: Speci men Type: BLOOD SPECIMENOrdering Facility: [facility] Address: [address] [place] [address] Result Comment: No c lot detected. Performed By: #### 5 8410-2 ####[facility] LABORATORYCLIA [id number] [place] [id number] [place] RBC (Bld) [#/Vol] 4.55 10*6/uL Normal 3.90-5.20 [facility] Comment on above: Order Comment: Speci men Type: BLOOD SPECIMENOrdering Facility: [facility] Address: [address] [place], [place] [address] Performed By: #### 5 8410-2 ####[facility] LABORATORYCLIA [id number] [place] [id number] [place] WBC (Bld) [#/Vol] 5.71 10*3/uL Normal 3.70-11.00 [facility] Comment on above: Order Comment: Speci men Type: BLOOD SPECIMENOrdering Facility: [facility] Address: [address] [place] [address] Performed By: #### 5 8410-2 ####[facility] LABORATORYCLIA [id number] [place] [id number] [facility] [place] ALLIED HEALTHon 12-04-2024 [facility] Bacteria Throat Culton 12-04 Bacteria identified Cx Nom (Throat) CULTURE, THROAT: No Beta hemolytic streptococci isolated. [facility] Comment on above: Performed By: #### 6 26-2 ####[facility] LABORATORYCLIA [id number] [place] [id number] [facility] [place] CASE MGT INIT ASSon 2024 CASE MGT INIT [facility] CBC panel Auto (Bld)on 12-04 Erythrocyte distribution width (RBC) [Ratio] 13.8 % Normal 11.5-15.0 [facility] Comment on above: Order Comment: Speci men Type: BLOOD SPECIMENOrdering Facility: [facility] Address: [address] [place], [place] [address] Performed By: #### 5 8410-2 ####[facility] LABORATORYCLIA [id number] [place] [id number] [place] Hematocrit (Bld) [Volume fraction] 46.1 % High 36.0-46.0 [facility] Comment on above: Order Comment: Speci men Type: BLOOD SPECIMENOrdering Facility: [facility] Address: [address] [place] [address] Performed By: #### 5 8410-2 ####[facility] LABORATORYCLIA [id number] [place] [address] [place] Hemoglobin (Bld) [Mass/Vol] 15.6 g/dL High 11.5-15.5 [facility] Comment on above: Order Comment: Speci men Type: BLOOD SPECIMENOrdering Facility: [facility] Address: [address] [place] [address] Performed By: #### 5 8410-2 ####[facility] LABORATORYCLIA [id number] [place] [address] [place] MCH (RBC) [Entitic mass] 32.0 pg Normal 26.0-34.0 [facility] Comment on above: Order Comment: Speci men Type: BLOOD SPECIMENOrdering Facility: [facility] Address: [address] [place] [address] Performed By: #### 5 8410-2 ####[facility] LABORATORYCLIA [id number] [address] [place] MCHC (RBC) [Mass/Vol] 33.8 g/dL Normal 30.5-36.0 [facility] Comment on above: Order Comment: Speci men Type: BLOOD SPECIMENOrdering Facility: [facility] Address: [address] [place] [address] Performed By: #### 5 8410-2 ####[facility] LABORATORYCLIA [id number] [address] [place] MCV (RBC) [Entitic vol] 94.5 fL Normal 80.0-100.0 [facility] Comment on above: Order Comment: Speci men Type: BLOOD SPECIMENOrdering Facility: [facility] Address: [address] [place] [address] Performed By: #### 5 8410-2 ####[facility] LABORATORYCLIA [id number] [place] [address] [place] Nucleated RBC (Bld) [#/Vol] 10*3/uL Normal <0.01 [facility] Comment on above: Order Comment: Speci men Type: BLOOD SPECIMENOrdering Facility: [facility] Address: [address] [place] [address] Performed By: #### 5 8410-2 ####[facility] LABORATORYCLIA [id number] [place] [id number] [place] Platelet mean volume (Bld) [Entitic vol] 9.2 fL Normal 9.0-12.7 [facility] Comment on above: Order Comment: Speci men Type: BLOOD SPECIMENOrdering Facility: [facility] Address: [address] [place] [address] Performed By: #### 5 8410-2 ####[facility] LABORATORYCLIA [id number] [place] [address] [place] Platelets (Bld) [#/Vol] 123 10*3/uL Low 150-400 [facility] Comment on above: Order Comment: Speci men Type: BLOOD SPECIMENOrdering Facility: [facility] Address: [address] [place] [address] Performed By: #### 5 8410-2 ####[facility] LABORATORYCLIA [id number] [place] [address] [place] RBC (Bld) [#/Vol] 4.88 10*6/uL Normal 3.90-5.20 [facility] Comment on above: Order Comment: Speci men Type: BLOOD SPECIMENOrdering Facility: [facility] Address: [address] [place] [address] Performed By: #### 5 8410-2 ####[facility] LABORATORYCLIA [id number] [place] [address] [place] WBC (Bld) [#/Vol] 5.52 10*3/uL Normal 3.70-11.00 [facility] Comment on above: Order Comment: Speci men Type: BLOOD SPECIMENOrdering Facility: [facility] Address: [address] [place], [place] [address] Performed By: #### 5 8410-2 ####[facility] LABORATORYCLIA [id number] [place] [id number] [place] CONSULTon 12-04-2024 CONSULT Normal [facility] CRP SerPl-mCncon 12-04-2024 CRP [Mass/Vol] mg/L Normal <1.0 [facility] Comment on above: Order Comment: Speci men Type: BLOOD SPECIMENOrdering Facility: [facility] Address: [address] [place] [address] Performed By: #### 1 988-5 ####[facility] LABORATORYCLIA [id number] [address] [place] CT BRAIN WO IVCONon 12-05-19 CT BRAIN WO IVCON Normal [facility] CT NECK SOFT TISSUE W IVCONo n 12-04-2024 CT NECK SOFT TISSUE W IVCON Normal [facility] Comprehensive metabolic 2000 panelon 12-04-2024 Albumin [Mass/Vol] 3.2 g/dL Normal 3.2-5.0 [facility] Comment on above: Order Comment: Speci men Type: BLOOD SPECIMENOrdering Facility: [facility] Address: [address] [place] [address] Performed By: #### 2 4323-8, 73498-7 ####[facility]ORATORYCLIA [id number] [place] [address] [place] ALP [Catalytic activity/Vol] 67 U/L Normal 45-117 [facility] Comment on above: Order Comment: Speci men Type: BLOOD SPECIMENOrdering Facility: [facility] Address: [address] [place] [address] Performed By: #### 2 4323-8, 98690-0 ####[facility]ORATORYCLIA [id number] [place] [address] [place] ALT [Catalytic activity/Vol] 22 U/L Normal 13-61 [facility] Comment on above: Order Comment: Speci men Type: BLOOD SPECIMENOrdering Facility: [facility] Address: [address] [place] [address] Result Comment: Resu lts may be falsely depressed after the administration of Sulfasalazine and/or Sulfapyridine. Performed By: #### 2 4323-8, ####[facility] LABORATORYCLIA [id number] [place] [address] [place] Anion gap [Moles/Vol] 10 mmol/L Normal 5-16 [facility] Comment on above: Order Comment: Speci men Type: BLOOD SPECIMENOrdering Facility: [facility] Address: [address] [place] [address] Performed By: #### 2 4323-8, ####[facility] LABORATORYCLIA [id number] [place] [address] [place] AST [Catalytic activity/Vol] 23 U/L Normal 8-34 [facility] Comment on above: Order Comment: Speci men Type: BLOOD SPECIMENOrdering Facility: [facility] Address: [address] [place] [address] Result Comment: Resu lts may be falsely depressed after the administration of Sulfasalazine and/or Sulfapyridine. Performed By: #### 2 4323-8, ####[facility]ORATORYCLIA [id number] [place] [address] [place] Bilirubin [Mass/Vol] 0.6 mg/dL Normal 0.2-1.0 [facility] Comment on above: Order Comment: Speci men Type: BLOOD SPECIMENOrdering Facility: [facility] Address: [address] [place] [address] Performed By: #### 2 4323-8, ####[facility]ORATORYCLIA [id number] [place] [address] [place] Calcium [Mass/Vol] 9.5 mg/dL Normal 8.5-10.5 [facility] Comment on above: Order Comment: Speci men Type: BLOOD SPECIMENOrdering Facility: [facility] Address: [address] [place] [address] Performed By: #### 2 4323-8, ####[facility]ORATORYCLIA [id number] [place] [address] [place] Chloride [Moles/Vol] 109 mmol/L High 98-107 [facility] Comment on above: Order Comment: Speci men Type: BLOOD SPECIMENOrdering Facility: [facility] Address: [address] [place] [address] Performed By: #### 2 4323-8, ####[facility]ORATORYCLIA [id number] [place] [id number] [place] CO2 [Moles/Vol] 24 mmol/L Normal 21-32 [facility] Comment on above: Order Comment: Speci men Type: BLOOD SPECIMENOrdering Facility: [facility] Address: [address] [place] [address] Performed By: #### 2 4323-8, ####[facility] LABORATORYCLIA [id number] [place] [address] [place] Creatinine [Mass/Vol] 0.63 mg/dL Normal 0.51-0.95 [facility] Comment on above: Order Comment: Speci men Type: BLOOD SPECIMENOrdering Facility: [facility] Address: [address] [place] [address] Result Comment: Marilin ents receiving either N-Acetylcysteine (NAC) or Metamizole prior to venipuncture, may have falsely depressed results. Performed By: #### 2 4323-8, ####[facility] LABORATORYCLIA [id number] [place] [address] [place] Creatinine and Glomerular filtration rate.predicted panel (S/P/Bld) 110 mL/min/1.73m??? Normal >=60 [facility] Comment on above: Order Comment: Speci men Type: BLOOD SPECIMENOrdering Facility: [facility] Address: [address] [place] [address] Result Comment: Chrissy mated Glomerular Filtration Rate [...] actual GFR. Performed By: #### 2 4323-8, 38101-5 ####[facility]ORATORYCLIA [id number] [place] [address] [place] Glucose [Mass/Vol] 89 mg/dL Normal 70-100 [facility] Comment on above: Order Comment: Syd ramos Type: BLOOD SPECIMENOrdering Facility: [facility] Address: [address] [place] [address] Result Comment: The [place] Diabetes Association (ADA) provides guidance for cutoff [...] Standards of Medical Care in Diabetes 2016, [place] Diabetes Association. Diabetes Care. 2016.39(Suppl 1).Results may be falsely elevated after the administration of Sulfapyridine.Results may be falsely depressed after the administration of Sulfasalazine. Performed By: #### 2 4323-8, ####[facility]ORATORYCLIA [id number] [place] [address] [place] Potassium [Moles/Vol] 3.9 mmol/L Normal 3.5-5.1 [facility] Comment on above: Order Comment: Syd ramos Type: BLOOD SPECIMENOrdering Facility: [facility] Address: [address] [place] [id number] Performed By: #### 2 4323-8, ####[facility] LABORATORYCLIA [id number] [place] [address] [place] Protein [Mass/Vol] 6.8 g/dL Normal 6.0-8.5 [facility] Comment on above: Order Comment: Speci men Type: BLOOD SPECIMENOrdering Facility: [facility] Address: [address] [place] [address] Performed By: #### 2 4323-8, 26332-2 ####[facility] LABORATORYCLIA [id number] [place] [address] [place] Sodium [Moles/Vol] 143 mmol/L Normal 136-145 [facility] Comment on above: Order Comment: Speci men Type: BLOOD SPECIMENOrdering Facility: [facility] Address: [address] [place] [address] Performed By: #### 2 4323-8, 55895-3 ####[facility] LABORATORYCLIA [id number] [place] [address] [place] Urea nitrogen [Mass/Vol] 9 mg/dL Normal 7- [facility] Comment on above: Order Comment: Speci men Type: BLOOD SPECIMENOrdering Facility: [facility] Address: [address] [place] [address] Performed By: #### 2 4323-8, 61942-8 ####[facility] LABORATORYCLIA [id number] [place] [id number] [place] ED NOTEon 12-04-2024 ED NOTE Normal [facility] ED PROV NOTEon 12-04-2024 ED PROV NOTE Normal [facility] ED PROV NOTE Normal [facility] ESR Westergren method (Bld) [Velocity]on 12-04-2024 ESR (Bld) [Velocity] 2 mm/h Normal 0-20 [facility] Comment on above: Order Comment: Speci men Type: BLOOD SPECIMENOrdering Facility: [facility] Address: [address] [place] [address] Performed By: #### 4 537-7 ####[facility] LABORATORYCLIA [id number] [address] [place] HISTORY PHYSICALon HISTORY PHYSICAL Normal [facility] Magnesium SerPl-mCncon 12-04 Magnesium [Mass/Vol] 1.9 mg/dL Normal 1.6-2.6 [facility] Comment on above: Order Comment: Speci men Type: BLOOD SPECIMENOrdering Facility: [facility] Address: [address] [place] [address] Performed By: #### 2 4323-8, 18436-8 ####[facility] LABORATORYCLIA [id number] [address] [place] NURSING PROGon 12-04-2024 NURSING PROG Normal [facility] Procalcitonin SerPl-mCncon 0 12-04-2024 Procalcitonin [Mass/Vol] 0.04 ng/mL Normal 0.00-0.50 [facility] Comment on above: Order Comment: Speci men Type: BLOOD SPECIMENOrdering Facility: [facility] Address: [address] [place] [address] Result Comment: PCT Concentration InterpretationPCT <=0.1 ng/mL:Normal [...] shock. Performed By: #### 3 3959-8, 4086-5 ####[facility] LABORATORYCLIA [id number] [place] [id number] [place] S pyo DNA Throat Ql MACIE+prob shirlene 12-04-2024 S. pyogenes DNA MACIE+probe Ql (Throat) Not detected Normal Not detected [facility] Comment on above: Order Comment: Speci men Type: SWABOrdering Facility: [facility] Address: [address] [place] [address] Performed By: #### 6 0489-2 ####[facility] LABORATORYCLIA [id number] [place] [address] [place] SEPSIS LACTATEon 12-04-2024 Lactate [Moles/Vol] 1.8 mmol/L Normal 0.4-2.0 [facility] Comment on above: Order Comment: Speci men Type: BLOOD SPECIMENOrdering Facility: [facility] Address: [address] [place] [address] Performed By: #### S LACT ####[facility] LABORATORYCLIA [id number] [address] [place] Valproate SerPl-mCncon 12-04 Valproate [Mass/Vol] 38.3 ug/mL Low 50.0-100.0 [facility] Comment on above: Order Comment: Speci men Type: BLOOD SPECIMENOrdering Facility: [facility] Address: [address] [place] [address] Result Comment: Refe rence ranges and high/low indicator flags are provided as general guidelines only. The treating physician must determine appropriate target levels/dosing based on the specific clinical situation. Performed By: #### 3 3959-8, 4086-5 ####[facility] LABORATORYCLIA [id number] [address] OF [facility] .Auto Diffon 12-03-2024 Basophil, Absolute 0.0 10 3/mcL Normal 0.0-0.3 [facility] Comment on above: Performed By: #### A DIFF, CBC, ANEU, GFR, CMP, MORPH, LIP, MDW ####Dilshad [address] [place], [place] [address] Basophils/100 WBC (Bld) 0.5 % Normal 0.0-2.5 [facility] Comment on above: Performed By: #### A DIFF, CBC, ANEU, GFR, CMP, MORPH, LIP, MDW ####Dilshad [address] [place], [place] [address] Eosinophil, Absolute 0.1 10 3/mcL Normal 0.0-0.7 AU LTMAN [facility] Comment on above: Performed By: #### A DIFF, CBC, ANEU, GFR, CMP, MORPH, LIP, MDW ####Dilshad [address] [place], [place] [address] Eosinophils/100 WBC (Bld) 1.8 % Normal 0.0-6.0 [facility] Comment on above: Performed By: #### A DIFF, CBC, ANEU, GFR, CMP, MORPH, LIP, MDW ####Dilshad [address]lu[address] [place], [place] [address] Lymphocyte, Absolute 2.1 10 3/mcL Normal 0.9-4.3 [facility] LTM[facility] Comment on above: Performed By: #### A DIFF, CBC, ANEU, GFR, CMP, MORPH, LIP, MDW ####Dilshad [address] [place], [place] [address] Lymphocytes/100 WBC (Bld) 32.0 % Normal 20.0-40.0 DILSHAD [facility] Comment on above: Performed By: #### A DIFF, CBC, ANEU, GFR, CMP, MORPH, LIP, MDW ####Dilshad [address] [place], [place] [address] Monocyte, Absolute 1.8 10 3/mcL High 0.1-1.4 [facility] Comment on above: Performed By: #### A DIFF, CBC, ANEU, GFR, CMP, MORPH, LIP, MDW ####Dilshad [address] [place], [place] [address] Monocytes/100 WBC (Bld) 27.1 % High 2.0-13.0 DILSHAD MASSILLON Comment on above: Performed By: #### A DIFF, CBC, ANEU, GFR, CMP, MORPH, LIP, MDW ####Dilshad [address]te[address] [place], [place] [address] Neutrophils/100 WBC (Bld) 38.6 % Low 50.0-75.0 DILSHAD MASSILLON Comment on above: Performed By: #### A DIFF, CBC, ANEU, GFR, CMP, MORPH, LIP, MDW ####Dilshad [address] [place], [place] [address] .GFRon 12-03-2024 Estimated Glomerular Filtration Rate 108 ml/min/1.73sqm Normal [facility] Comment on above: Result Comment: Stages of [...] ANEU, GFR, CMP, MORPH, LIP, MDW ####Dilshad [address] [place] [address] .MDWon 12-03-2024 Monocyte Distribution Width 19.08 Normal 0.00-20.00 DILSHAD MASSILLON Comment on above: Result Comment: For ED adult patients suspected of sepsis, MDW<=20.0 does not rule out sepsis or risk of sepsis Performed By: #### A DIFF, CBC, ANEU, GFR, CMP, MORPH, LIP, MDW ####Dilshad [address] [place] [address] .Morphon 12-03-2024 Platelet Estimate Slt Decreased Normal [facility] Comment on above: Performed By: #### A DIFF, CBC, ANEU, GFR, CMP, MORPH, LIP, MDW ####Dilshad [address] [place] [address] .NEUABSon 12-03-2024 Neutrophil, Absolute 2.5 10 3/mcL Normal 2.3-8.1 AU MAN [facility] Comment on above: Performed By: #### A DIFF, CBC, ANEU, GFR, CMP, MORPH, LIP, MDW ####Dilshad [address] [place] [address] CBCon 12-03-2024 Erythrocyte distribution width (RBC) [Ratio] 14.6 % Normal 11.5-15.5 DILSHAD MASSILLON Comment on above: Performed By: #### A DIFF, CBC, ANEU, GFR, CMP, MORPH, LIP, EDD ####Dilshad [address] [place] [phone] Hematocrit (Bld) [Volume fraction] 46.5 % High 34.0-46.0 DILSHAD MASSILLON Comment on above: Performed By: #### A DIFF, CBC, ANEU, GFR, CMP, MORPH, LIP, MDW ####Dilshad [address] [place] [phone] Hgb 15.4 G/dL Normal 12.0-16.0 DILSHAD MASSILLON Comment on above: Performed By: #### A DIFF, CBC, ANEU, GFR, CMP, MORPH, LIP, W ####Dilshad [address] [place] [phone] MCH (RBC) [Entitic mass] 31.8 pg Normal 27.0-33.0 DILSHAD MASSILLON Comment on above: Performed By: #### A DIFF, CBC, ANEU, GFR, CMP, MORPH, LIP, EDD ####Dilshad [address] [place] [phone] MCHC 33.2 G/dL Normal 32.0-36.0 DILSHAD MASSILLON Comment on above: Performed By: #### A DIFF, CBC, ANEU, GFR, CMP, MORPH, LIP, EDD ####Dilshad JohnsonGdhifecwh[address] [place] [phone] MCV (RBC) [Entitic vol] 95.8 fL Normal 80.0-99.0 DILSHAD MASSILLON Comment on above: Performed By: #### A DIFF, CBC, ANEU, GFR, CMP, MORPH, LIP, W ####Dilshad Jearsmnlp[address] [place] [phone] Platelet 123 10 3/mcL Low 150-450 DILSHAD MASSILLON Comment on above: Performed By: #### A DIFF, CBC, ANEU, GFR, CMP, MORPH, LIP, W ####Dilshad [address] [place], [place] [address] Platelet mean volume (Bld) [Entitic vol] 7.2 fL Normal 6.6-10.5 DILSHAD MASSILLON Comment on above: Performed By: #### A DIFF, CBC, ANEU, GFR, CMP, MORPH, LIP, MDW ####Dilshad [address] [place] [address] RBC 4.85 10 6/mcL Normal 4.10-5.30 [facility] Comment on above: Performed By: #### A DIFF, CBC, ANEU, GFR, CMP, MORPH, LIP, MDW ####Dilshad [id number] [place] [address] WBC 6.5 10 3/mcL Normal 4.5-10.8 [facility] Comment on above: Performed By: #### A DIFF, CBC, ANEU, GFR, CMP, MORPH, LIP, MDW ####Dilshad [address] [place] [address] CBC W Auto Differential pane l (Bld)on 12-03-2024 Basophils (Bld) [#/Vol] 0.06 10*3/uL Normal <0.11 [facility] Comment on above: Order Comment: Speci men Type: BLOOD SPECIMENOrdering Facility: [facility] Address: [address] [place] [address] Performed By: #### 5 7021-8 ####[facility] LABORATORYCLIA [id number] [place] [address] [place] Basophils/100 WBC (Bld) 0.8 % Normal [facility] Comment on above: Order Comment: Speci men Type: BLOOD SPECIMENOrdering Facility: [facility] Address: [address] [place] [address] Performed By: #### 5 7021-8 ####[facility] LABORATORYCLIA [id number] [place] [address] [place] Differential cell count method Nom (Bld) Auto Normal [facility] Comment on above: Order Comment: Speci men Type: BLOOD SPECIMENOrdering Facility: [facility] Address: [address] [place] [address] Performed By: #### 5 7021-8 ####[facility] LABORATORYCLIA [id number] [place] [id number] [place] Eosinophils (Bld) [#/Vol] 0.06 10*3/uL Normal <0.46 [facility] Comment on above: Order Comment: Speci men Type: BLOOD SPECIMENOrdering Facility: [facility] Address: [address] [place] [address] Performed By: #### 5 7021-8 ####[facility] LABORATORYCLIA [id number] [address] [place] Eosinophils/100 WBC (Bld) 0.8 % Normal [facility] Comment on above: Order Comment: Speci men Type: BLOOD SPECIMENOrdering Facility: [facility] Address: [address] [place] [address] Performed By: #### 5 7021-8 ####[facility] LABORATORYCLIA [id number] [address] [place] Erythrocyte distribution width (RBC) [Ratio] 13.8 % Normal 11.5-15.0 [facility] Comment on above: Order Comment: Speci men Type: BLOOD SPECIMENOrdering Facility: [facility] Address: [address] [place] [address] Performed By: #### 5 7021-8 ####[facility] LABORATORYCLIA [id number] [place] [id number] [facility] [place] Hematocrit (Bld) [Volume fraction] 49.4 % High 36.0-46.0 [facility] Comment on above: Order Comment: Speci men Type: BLOOD SPECIMENOrdering Facility: [facility] Address: [address] [place] [address] Performed By: #### 5 7021-8 ####[facility] LABORATORYCLIA [id number] [place] [id number] [place] Hemoglobin (Bld) [Mass/Vol] 16.5 g/dL High 11.5-15.5 [facility] Comment on above: Order Comment: Speci men Type: BLOOD SPECIMENOrdering Facility: [facility] Address: [address] [place] [address] Performed By: #### 5 7021-8 ####[facility] LABORATORYCLIA [id number] [place] [address] [place] Immature granulocytes (Bld) [#/Vol] 0.05 10*3/uL Normal <0.10 [facility] Comment on above: Order Comment: Speci men Type: BLOOD SPECIMENOrdering Facility: [facility] Address: [address] [place] [address] Performed By: #### 5 7021-8 ####[facility] LABORATORYCLIA [id number] [address] [place] Immature granulocytes/100 WBC (Bld) 0.7 % Normal [facility] Comment on above: Order Comment: Speci men Type: BLOOD SPECIMENOrdering Facility: [facility] Address: [address] [place] [address] Performed By: #### 5 7021-8 ####[facility] LABORATORYCLIA [id number] [place] [address] [place] Lymphocytes (Bld) [#/Vol] 2.62 10*3/uL Normal 1.00-4.00 [facility] Comment on above: Order Comment: Speci men Type: BLOOD SPECIMENOrdering Facility: [facility] Address: [address] [place] [address] Performed By: #### 5 7021-8 ####[facility] LABORATORYCLIA [id number] [place] [address] [place] Lymphocytes/100 WBC (Bld) 36.4 % Normal [facility] Comment on above: Order Comment: Speci men Type: BLOOD SPECIMENOrdering Facility: [facility] Address: [address] [place] [address] Performed By: #### 5 7021-8 ####[facility] LABORATORYCLIA [id number] [place] [address] [place] MCH (RBC) [Entitic mass] 32.1 pg Normal 26.0-34.0 [facility] Comment on above: Order Comment: Speci men Type: BLOOD SPECIMENOrdering Facility: [facility] Address: [address] [place] [address] Performed By: #### 5 7021-8 ####[facility] LABORATORYCLIA [id number] [address] [place] MCHC (RBC) [Mass/Vol] 33.4 g/dL Normal 30.5-36.0 [facility] Comment on above: Order Comment: Speci men Type: BLOOD SPECIMENOrdering Facility: [facility] Address: [address] [place] [address] Performed By: #### 5 7021-8 ####[facility] LABORATORYCLIA [id number] [address] [place] MCV (RBC) [Entitic vol] 96.1 fL Normal 80.0-100.0 [facility] Comment on above: Order Comment: Speci men Type: BLOOD SPECIMENOrdering Facility: [facility] Address: [address] [place] [address] Performed By: #### 5 7021-8 ####[facility] LABORATORYCLIA [id number] [address] [place] Monocytes (Bld) [#/Vol] 1.65 10*3/uL High <0.87 [facility] Comment on above: Order Comment: Speci men Type: BLOOD SPECIMENOrdering Facility: [facility] Address: [address] [place] [address] Performed By: #### 5 7021-8 ####[facility] LABORATORYCLIA [id number] [address] [place] Monocytes/100 WBC (Bld) 22.9 % Normal [facility] Comment on above: Order Comment: Speci men Type: BLOOD SPECIMENOrdering Facility: [facility] Address: [address] [place] [address] Performed By: #### 5 7021-8 ####[facility] LABORATORYCLIA [id number] [place] [id number] [place] Neutrophils (Bld) [#/Vol] 2.76 10*3/uL Normal 1.45-7.50 [facility] Comment on above: Order Comment: Speci men Type: BLOOD SPECIMENOrdering Facility: [facility] Address: [address] [place] [address] Performed By: #### 5 7021-8 ####[facility] LABORATORYCLIA [id number] [place] [address] [place] Neutrophils/100 WBC (Bld) 38.4 % Normal [facility] Comment on above: Order Comment: Speci men Type: BLOOD SPECIMENOrdering Facility: [facility] Address: [address] [place] [address] Performed By: #### 5 7021-8 ####[facility] LABORATORYCLIA [id number] [place] [address] [place] Nucleated RBC (Bld) [#/Vol] 10*3/uL Normal <0.01 [facility] Comment on above: Order Comment: Speci men Type: BLOOD SPECIMENOrdering Facility: [facility] Address: [address] [place] [address] Performed By: #### 5 7021-8 ####[facility] LABORATORYCLIA [id number] [place] [address] [place] Nucleated RBC/100 WBC (Bld) [Ratio] 0.0 /100 WBC Normal [facility] Comment on above: Order Comment: Speci men Type: BLOOD SPECIMENOrdering Facility: [facility] Address: [address] [place] [address] Performed By: #### 5 7021-8 ####[facility] LABORATORYCLIA [id number] [place] [address] [place] Platelet mean volume (Bld) [Entitic vol] 9.6 fL Normal 9.0-12.7 [facility] Comment on above: Order Comment: Speci men Type: BLOOD SPECIMENOrdering Facility: [facility] Address: [address] [place] [address] Performed By: #### 5 7021-8 ####[facility] LABORATORYCLIA [id number] [place] [address] [facility] [place] Platelets (Bld) [#/Vol] 141 10*3/uL Low 150-400 [facility] Comment on above: Order Comment: Speci men Type: BLOOD SPECIMENOrdering Facility: [facility] Address: [address] [place] [address] Result Comment: No c lot detected. Performed By: #### 5 7021-8 ####[facility] LABORATORYCLIA [id number] [address] [place] RBC (Bld) [#/Vol] 5.14 10*6/uL Normal 3.90-5.20 [facility] Comment on above: Order Comment: Speci men Type: BLOOD SPECIMENOrdering Facility: [facility] Address: [address] [place] [address] Performed By: #### 5 7021-8 ####[facility]ORATORYCLIA [id number] [address] WBC (Bld) [#/Vol] 7.20 10*3/uL Normal 3.70-11.00 [facility] Comment on above: Order Comment: Speci men Type: BLOOD SPECIMENOrdering Facility: [facility] Address: [address] [place] [address] Performed By: #### 5 7021-8 ####[facility] LABORATORYCLIA [id number] [place] [id number] [facility] [place] CMPon 12-03-2024 Albumin Level 3.4 G/dL Low 3.5-5.0 [facility] GUAN Comment on above: Performed By: #### A DIFF, CBC, ANEU, GFR, CMP, MORPH, LIP, MDW ####Dilshad Ben[address] [place], [place] [address] Albumin/Globulin [Mass ratio] 0.8 {ratio} Low 1.1-2.5 DILSHAD MASSILLON Comment on above: Performed By: #### A DIFF, CBC, ANEU, GFR, CMP, MORPH, LIP, MDW ####Dilshad Ben[address] [place], [place] [address] ALP [Catalytic activity/Vol] 80 U/L Normal 40-135 DILSHAD MASSILLON Comment on above: Performed By: #### A DIFF, CBC, ANEU, GFR, CMP, MORPH, LIP, MDW ####Dilshadvazquez [address] [place], [place] [address] ALT [Catalytic activity/Vol] 31 U/L Normal 14-59 DILSHAD MASSILLON Comment on above: Performed By: #### A DIFF, CBC, ANEU, GFR, CMP, MORPH, LIP, MDW ####Dilshadvazquez [address] [place] [id number] AST [Catalytic activity/Vol] 25 U/L Normal 10-40 DILSHAD MASSILLON Comment on above: Performed By: #### A DIFF, CBC, ANEU, GFR, CMP, MORPH, LIP, MDW ####Dilshad Ben[address] [place], [place] [address] Bili Total 0.4 mg/dL Normal 0.2-1.0 DILSHAD MASSILLO Comment on above: Result Comment: Use of this assay is not recommended for patients undergoing treatment with eltrombopag due to the potential for falsely elevated results. Performed By: #### A DIFF, CBC, ANEU, GFR, CMP, MORPH, LIP, MDW ####Dilshadvazquez [address] [place], [place] [address] BUN/Creatinine Ratio 21 ratio Normal 7-27 RHIANNON MAN MASSILLON Comment on above: Performed By: #### A DIFF, CBC, ANEU, GFR, CMP, MORPH, LIP, MDW ####Dilshadvazquez [address] [place], [place] [address] Calcium [Mass/Vol] 9.3 mg/dL Normal 8.4-10.2 AULTMA N MASSILLON Comment on above: Performed By: #### A DIFF, CBC, ANEU, GFR, CMP, MORPH, LIP, MDW ####Dilshad JohnsonChualmwzu[address] [place], [place] [address] Chloride [Moles/Vol] 104 mmol/L Normal 98-107 RHIANNON MAN MASSILLON Comment on above: Performed By: #### A DIFF, CBC, ANEU, GFR, CMP, MORPH, LIP, MDW ####Dilshad JohnsonDwkgsobif[address]64 [place], [place] [address] CO2 [Moles/Vol] 29 mmol/L Normal 22-29 DILSHAD MASSILLON Comment on above: Performed By: #### A DIFF, CBC, ANEU, GFR, CMP, MORPH, LIP, MDW ####Dilshad Ben[address] [place], [place] [address] Creatinine [Mass/Vol] 0.67 mg/dL Normal 0.51-0.95 AUL TMAN MASSILLON Comment on above: Performed By: #### A DIFF, CBC, ANEU, GFR, CMP, MORPH, LIP, MDW ####Dilshad JohnsonKgeftrswq[address]69 [place], [place] [address] Electrolyte Balance 7.0 mEq/L Normal 4.0-15.0 AULTM AN MASSILLON Comment on above: Performed By: #### A DIFF, CBC, ANEU, GFR, CMP, MORPH, LIP, MDW ####Dilshad Ben[address] [place], [place] [address] Globulin 4.0 G/dL Normal 2.7-4.4 DILSHAD MASSILLON Comment on above: Performed By: #### A DIFF, CBC, ANEU, GFR, CMP, MORPH, LIP, MDW ####Dilshad JohnsonKrzipqtyb[address] [place], [place] [address] Glucose [Mass/Vol] 124 mg/dL High 70-105 AULTMA N MASSILLON Comment on above: Performed By: #### A DIFF, CBC, ANEU, GFR, CMP, MORPH, LIP, MDW ####Dilshad JohnsonSxkpekqok5073 [place], [place] [address] Potassium [Moles/Vol] 3.7 mmol/L Normal 3.5-5.1 AUL TMAN MASSILLON Comment on above: Performed By: #### A DIFF, CBC, ANEU, GFR, CMP, MORPH, LIP, MDW ####Dilshad JohnsonIhdadfglu[address]17 [place], [place] [address] Sodium [Moles/Vol] 140 mmol/L Normal 136-145 AULTMA N MASSILLON Comment on above: Performed By: #### A DIFF, CBC, ANEU, GFR, CMP, MORPH, LIP, MDW ####Dilshad Bxmvgkbly[address] [place], [place] [address] Total Protein 7.4 G/dL Normal 6.4-8.2 DILSHAD MASSILLON Comment on above: Performed By: #### A DIFF, CBC, ANEU, GFR, CMP, MORPH, LIP, MDW ####Dilshad JohnsonKheduebga[address]07 [place], [place] [address] Urea nitrogen [Mass/Vol] 14 mg/dL Normal 7-18 DILSHAD MASSILLON Comment on above: Performed By: #### A DIFF, CBC, ANEU, GFR, CMP, MORPH, LIP, MDW ####Dilshad JohnsonAqsdsjmnn1247 [place], [place] [address] Comprehensive metabolic 2000 panelon 12-03-2024 Albumin [Mass/Vol] 3.5 g/dL Normal 3.2-5.0 [facility] Comment on above: Order Comment: Speci men Type: BLOOD SPECIMENOrdering Facility: [facility] Address: [address] [place] [address] Performed By: #### 2 4323-8, , HSTROP ####[facility] LABORATORYCLIA [id number] [place] [address] [place] ALP [Catalytic activity/Vol] 76 U/L Normal 45-117 [facility] Comment on above: Order Comment: Speci men Type: BLOOD SPECIMENOrdering Facility: [facility] Address: [address] [place] [address] Performed By: #### 2 4323-8, , HSTROP ####[facility]ORATORYCLIA [id number] [place] [id number] [place] ALT [Catalytic activity/Vol] 30 U/L Normal 13-61 [facility] Comment on above: Order Comment: Syd ramos Type: BLOOD SPECIMENOrdering Facility: [facility] Address: [address] [place] [address] Result Comment: Resu lts may be falsely depressed after the administration of Sulfasalazine and/or Sulfapyridine. Performed By: #### 2 4323-8, , HSTROP ####[facility]ORATORYCLIA [id number] [place] [id number] [place] Anion gap [Moles/Vol] 10 mmol/L Normal 5-16 [facility] Comment on above: Order Comment: Syd ramos Type: BLOOD SPECIMENOrdering Facility: [facility] Address: [address] [place] [address] Performed By: #### 2 4323-8, , HSTROP ####[facility] LABORATORYCLIA [id number] [place] [address] [place] AST [Catalytic activity/Vol] Normal [facility] Comment on above: Order Comment: Syd ramos Type: BLOOD SPECIMENOrdering Facility: [facility] Address: [address] [place] [address] Result Comment: Unab le to assay due to interference from hemolysis. Suggest reorder as clinically indicated.Results may be falsely depressed after the administration of Sulfasalazine and/or Sulfapyridine. Performed By: #### 2 4323-8, , HSTROP ####[facility] LABORATORYCLIA [id number] [place] [id number] [place] Bilirubin [Mass/Vol] 0.6 mg/dL Normal 0.2-1.0 [facility] Comment on above: Order Comment: Syd ramos Type: BLOOD SPECIMENOrdering Facility: [facility] Address: [address] [place] [address] Performed By: #### 2 4323-8, , HSTROP ####[facility]ORATORYCLIA [id number] [place] [id number] [place] Calcium [Mass/Vol] 9.7 mg/dL Normal 8.5-10.5 [facility] Comment on above: Order Comment: Speci men Type: BLOOD SPECIMENOrdering Facility: [facility] Address: [address] [place] [address] Performed By: #### 2 4323-8, , HSTROP ####[facility] LABORATORYCLIA [id number] [place] [id number] [place] Chloride [Moles/Vol] 107 mmol/L Normal 98-107 [facility] Comment on above: Order Comment: Speci men Type: BLOOD SPECIMENOrdering Facility: [facility] Address: [address] [place] [address] Performed By: #### 2 4323-8, , HSTROP ####[facility] LABORATORYCLIA [id number] [place] [id number] [place] CO2 [Moles/Vol] 24 mmol/L Normal 21-32 [facility] Comment on above: Order Comment: Speci men Type: BLOOD SPECIMENOrdering Facility: [facility] Address: [address] [place] [address] Performed By: #### 2 4323-8, , HSTROP ####[facility] LABORATORYCLIA [id number] [place] [id number] [place] Creatinine [Mass/Vol] 0.64 mg/dL Normal 0.51-0.95 [facility] Comment on above: Order Comment: Speci men Type: BLOOD SPECIMENOrdering Facility: [facility] Address: [address] [place] [address] Result Comment: Marilin ents receiving either N-Acetylcysteine (NAC) or Metamizole prior to venipuncture, may have falsely depressed results. Performed By: #### 2 4323-8, , HSTROP ####[facility] LABORATORYCLIA [id number] [address] [place] Creatinine and Glomerular filtration rate.predicted panel (S/P/Bld) 110 mL/min/1.73m??? Normal >=60 [facility] Comment on above: Order Comment: Irmapatrice ramos Type: BLOOD SPECIMENOrdering Facility: [facility] Address: [address] [place] [address] Result Comment: Chrissy mated Glomerular Filtration Rate [...] actual GFR. Performed By: #### 2 4323-8, 66155-5, HSTROP ####[facility] LABORATORYCLIA [id number] [place] [address] [place] Glucose [Mass/Vol] 107 mg/dL High 70-100 [facility] Comment on above: Order Comment: Syd ramos Type: BLOOD SPECIMENOrdering Facility: [facility] Address: [address] [place] [address] Result Comment: The [place] Diabetes Association (ADA) provides guidance for cutoff [...] Standards of Medical Care in Diabetes 2016, [place] Diabetes Association. Diabetes Care. 2016.39(Suppl 1).Results may be falsely elevated after the administration of Sulfapyridine.Results may be falsely depressed after the administration of Sulfasalazine. Performed By: #### 2 4323-8, 15084-3, HSTROP ####[facility] LABORATORYCLIA [id number] [place] [address] [place] Potassium [Moles/Vol] Normal [facility] Comment on above: Order Comment: Speci men Type: BLOOD SPECIMENOrdering Facility: [facility] Address: [address] [place] [address] Result Comment: Unab le to assay due to interference from hemolysis. Suggest reorder as clinically indicated. Performed By: #### 2 4323-8, , HSTROP ####[facility]ORATORYCLIA [id number] [place] [id number] [place] Protein [Mass/Vol] 7.4 g/dL Normal 6.0-8.5 [facility] Comment on above: Order Comment: Speci men Type: BLOOD SPECIMENOrdering Facility: [facility] Address: [address] [place] [address] Performed By: #### 2 4323-8, , HSTROP ####[facility]ORATORYCLIA [id number] [place] [id number] [place] Sodium [Moles/Vol] 141 mmol/L Normal 136-145 [facility] Comment on above: Order Comment: Speci men Type: BLOOD SPECIMENOrdering Facility: [facility] Address: [address] [place] [address] Performed By: #### 2 4323-8, , HSTROP ####[facility]ORATORYCLIA [id number] [place] [id number] [place] Urea nitrogen [Mass/Vol] 11 mg/dL Normal 7-26 [facility] Comment on above: Order Comment: Speci men Type: BLOOD SPECIMENOrdering Facility: [facility] Address: [address] [place] [address] Performed By: #### 2 4323-8, , HSTROP ####[facility]ORATORYCLIA [id number] [place] [id number] [place] ECG COMPLETEon 12-03-2024 ECG COMPLETE Normal [facility] ED NOTEon 12-03-2024 ED NOTE HNO ID: [id number] Author: RANDALL HADDAD RN Service: ? Author Type: Registered Nurse Type: ED Notes Filed: 12/03/2024 22:23 Note Text: Bed: 11-ED Expected date: 12/03/24 Expected time: Means of arrival: Comments: pit Normal [facility] ED Triage Noteon 12-03-2024 ED Triage Note Normal [facility] HIGH SENSITIVITY TROPONIN Io n 12-03-2024 Tropinin I.cardiac panel High sensitivity method <2.5 Normal 0.0-34.0 [facility] Comment on above: Order Comment: Speci men Type: BLOOD SPECIMENOrdering Facility: [facility] Address: [address] [place] [address] Performed By: #### 2 4323-8, 97657-4, HSTROP ####[facility]ORATORYCLIA [id number] [address] [place] LIPon 12-03-2024 Lipase Level 49 U/L Normal 16-77 DILSHAD GUAN Comment on above: Performed By: #### A DIFF, CBC, ANEU, GFR, CMP, MORPH, LIP, MDW ####Dilshad Ben[address] [place] [address] Magnesium SerPl-mCncon 12-03 Magnesium [Mass/Vol] 2.0 mg/dL Normal 1.6-2.6 [facility] Comment on above: Order Comment: Speci men Type: BLOOD SPECIMENOrdering Facility: [facility] Address: [address] [place] [address] Performed By: #### 2 4323-8, , HSTROP ####[facility]ORATORYCLIA [id number] [address] [place] SEPSIS LACTATEon 12-03-2024 Lactate [Moles/Vol] 2.7 mmol/L High 0.4-2.0 [facility] Comment on above: Order Comment: Speci men Type: BLOOD SPECIMENOrdering Facility: [facility] Address: [address] [place] [address] Result Comment: CRIT ICAL Performed By: #### S LACT ####[facility] LABORATORYCLIA [id number] [place] [address] [facility] UAMICon 12-03-2024 UA Bacteria Trace Abnormal Negative DILSHAD MASSILLON Comment on above: Performed By: #### C ISI, EDD HAZEL, MG, CBC, GFR, ANEU #### Dilshad [address] [place], [place] [address] UA RBC 5-10 Abnormal 0-2 DILSHAD MASSILLON Comment on above: Performed By: #### C ILIR SNOWDEN MDW, MG, CBC, GFR, ANEU #### Dilshad [address] [place], [place] [address] UA Squam Epithelial Rare Normal 0-20 AULTM AN MASSILLON Comment on above: Performed By: #### C ISI, EDD HAZEL, MG, CBC, GFR, ANEU #### Dilshad [address] [place], [place] [address] UA WBC 3-5 Normal 0-5 DILSHAD MASSILLON Comment on above: Performed By: #### C ILIR SNOWDEN MDW, MG, CBC, GFR, ANEU #### Dilshad [address] [place], [place] [address] XR CHEST 1V FRONTALon 2024 XR CHEST 1V FRONTAL Normal [facility] UAon 12-02-2024 Color (U) Yellow Normal DILSHAD MASSILLON Comment on above: Performed By: #### C ILIR SNOWDEN MDW, MG, CBC, GFR, ANEU #### Dilshad [address] [place], [place] [address] Glucose (U) [Mass/Vol] Negative Normal Negative DILSHAD MASSILLON Comment on above: Performed By: #### C ISI, MD ILIRW, MG, CBC, GFR, ANEU #### Dilshad [address] [place], [place] [address] Ketones Ql (U) Trace Normal Neg-Trace DILSHAD MASSILLON Comment on above: Performed By: #### C ILIR SNOWDEN MDW, MG, CBC, GFR, ANEU #### Dilshad [address] [place], [place] [address] UA Appear Clear Normal DILSHAD MASSILLON Comment on above: Performed By: #### C ILIR SNOWDEN MDW, MG, CBC, GFR, ANEU #### Dilshad [address] [place], [place] [address] UA Blood Moderate Abnormal Neg-Trace DILSHAD MASSILLON Comment on above: Performed By: #### C ILIR SNOWDEN MDW, MG, CBC, GFR, ANEU #### Dilshad [address] [place], [place] [address] UA Leuk Est Negative Normal Negative DILSHAD MASSILLON Comment on above: Performed By: #### C ILIR SNOWDEN MDW, MG, CBC, GFR, ANEU #### Dilshad [address] [place], [place] [address] UA Nitrite Negative Normal Negative DILSHAD MASSILLON Comment on above: Performed By: #### C ILIR SNOWDEN MDW, MG, CBC, GFR, ANEU #### Dilshad [address] [place], [place] [address] UA pH 6.5 Normal 5.0 - 8.0 DILSHAD MASSILLON Comment on above: Performed By: #### C ILIR SNOWDEN MDW, MG, CBC, GFR, ANEU #### Dilshad [address] [place], [place] [address] UA Protein Negative Normal Negative DILSHAD MASSILLON Comment on above: Performed By: #### C ILIR SNOWDEN MDW, MG, CBC, GFR, ANEU #### Dilshad [address] [place], [place] [address] UA Spec Grav 1.025 Normal DILSHAD MASSILLON Comment on above: Performed By: #### C ILIR SNOWDEN MDW, MG, CBC, GFR, ANEU #### Dilshad [address] [place], [place] [address] UA Specimen Type Clean Catch Normal DILSHAD MASSILLON Comment on above: Performed By: #### C ILIR SNOWDEN MDW, MG, CBC, GFR, ANEU #### Dilshad [address] [place], [place] [address] UA Urobilinogen 2.0 E.U./dL Abnormal DILSHAD MASSILLON Comment on above: Performed By: #### C ISI, EDD HAZEL, MG, CBC, GFR, ANEU #### Dilshad [address] [place], [place] [address] Urobilinogen (U) [Mass/Vol] Negative Normal Neg-Trace DILSHAD MASSILLON Comment on above: Performed By: #### C ISI, EDD HAZEL, MG, CBC, GFR, ANEU #### Dilshad [address] [place], [place] [address] .Auto Diffon 10-16-2024 Basophil, Absolute 0.0 10 3/mcL Normal 0.0-0.3 RHIANNON MAN MASSILLON Comment on above: Performed By: #### M ORPHHAZEL ADIFF, MDW, CBC ####Dilshad [address] [place], [place] [address] Basophils/100 WBC (Bld) 0.6 % Normal 0.0-2.5 DILSHAD MASSILLON Comment on above: Performed By: #### M ORPHHAZEL ADIFF, MDW, CBC ####Dilshad [address] [place], [place] [address] Eosinophil, Absolute 0.0 10 3/mcL Normal 0.0-0.7 AU LTMAN MASSILLON Comment on above: Performed By: #### M ORPHHAZEL ADIFF, MDW, CBC ####[id number] [place], [place] [address] Eosinophils/100 WBC (Bld) 0.4 % Normal 0.0-6.0 DILSHAD MASSILLON Comment on above: Performed By: #### M ORPH ANEUILIR MDW, CBC ####Dilshad [id number] [place], [place] [address] Lymphocyte, Absolute 2.2 10 3/mcL Normal 0.9-4.3 AU LTMAN MASSILLON Comment on above: Performed By: #### M HAZEL MCCABE ADIFF, MDW, CBC ####Dilshad Hswiuwakf4730 [place], [place] [address] Lymphocytes/100 WBC (Bld) 29.6 % Normal 20.0-40.0 DILSHAD MASSILLON Comment on above: Performed By: #### M HAZEL MCCABE ADIFF, MDW, CBC ####Dilshad Pfbkcnwoz4044 [place], [place] [address] Monocyte, Absolute 1.6 10 3/mcL High 0.1-1.4 RHIANNON MAN MASSILLON Comment on above: Performed By: #### M HAZEL MCCABE ADIFF, MDW, CBC ####Dilshad Bkyebffln1897 [place], [place] [address] Monocytes/100 WBC (Bld) 22.0 % High 2.0-13.0 DILSHAD MASSILLON Comment on above: Performed By: #### M HAZEL MCCABE ADIFF, MDW, CBC ####Dilshad Dfwqqegbn1559 [place], [place] [address] Neutrophils/100 WBC (Bld) 47.4 % Low 50.0-75.0 DILSHAD MASSILLON Comment on above: Performed By: #### M HAZEL MCCABE ADIFF, MDW, CBC ####Dilshad Eakadmcuh3722 [place], [place] [address] .GFRon 10-16-2024 Estimated Glomerular Filtration Rate 67 [...] #### L AC, GFR, CMP ####Dilshad Ben[address] [place] [address] .MDWon 10-16-2024 Monocyte Distribution Width 16.09 Normal 0.00-20.00 DILSHAD MASSILLON Comment on above: Result Comment: For ED adult patients suspected of sepsis, MDW<=20.0 does not rule out sepsis or risk of sepsis Performed By: #### M HAZEL MCCABE ADIFF, MDW, CBC ####Dilshad Ben[address] [place] [address] .Morphon 10-16-2024 Platelet Estimate Decreased Normal DILSHAD MASSILLON Comment on above: Performed By: #### M HAZEL MCCABE ADIFF, MDW, CBC ####Dilshad Ben[address] [place] [address] RBC morphology finding Nom (Bld) Normal Normal DILSHAD MASSILLON Comment on above: Performed By: #### M HAZEL MCCBAE ADIFF, MDW, CBC ####Dilshad Ben[address] [place] [address] .NEUABSon 10-16-2024 Neutrophil, Absolute 3.5 10 3/mcL Normal 2.3-8.1 AU LTMAN MASSILLON Comment on above: Performed By: #### M HAZEL MCCABE ADIFF, MDW, CBC ####Dilshad Ben[address] [place] [address] APTTon 10-16-2024 aPTT Coag (Bld) [Time] 32.9 s Normal 25.0-35.0 DILSHAD MASSILLON Comment on above: Result Comment: For Heparin anticoagulation therapy, the recommended therapeutic range is: 54-77 seconds. PLEASE REFERENCE THE PHARMACY PROTOCOL FOR DOSING. Performed By: #### P RO, APTT ####Dilshad Ben[address] [place] [address] CBCon 10-16-2024 Erythrocyte distribution width (RBC) [Ratio] 14.4 % Normal 11.5-15.5 DILSHAD MASSILLON Comment on above: Performed By: #### M HAZEL MCCABE ADIFF, MDW, CBC ####Dilshad Phxdhnnbs1273 [place], [place] [address] Hematocrit (Bld) [Volume fraction] 47.2 % High 34.0-46.0 DILSHAD MASSILLON Comment on above: Performed By: #### M HAZEL MCCABE ADIFF, MDW, CBC ####Dilshad Pfmiatrva3951 [place], [place] [address] Hgb 16.2 G/dL High 12.0-16.0 DILSHAD MASSILLON Comment on above: Performed By: #### M HAZEL MCCABE ADIFF, MDW, CBC ####Dilshad Ben[address] [place], [place] [address] MCH (RBC) [Entitic mass] 32.6 pg Normal 27.0-33.0 DILSHAD MASSILLON Comment on above: Performed By: #### M HAZEL MCCABE ADIFF, MDW, CBC ####Dilshad Wwibbfkqw5074 [place] [phone] MCHC 34.2 G/dL Normal 32.0-36.0 DILSHAD MASSILLON Comment on above: Performed By: #### M HAZEL MCCABE ADIFF, MDW, CBC ####Dilshad Nefngsfer4433 [place], [place] [address] MCV (RBC) [Entitic vol] 95.4 fL Normal 80.0-99.0 DILSHAD MASSILLON Comment on above: Performed By: #### M HAZEL MCCABE ADIFF, MDW, CBC ####Dilshad Skvoekeeu0321 [place] [phone] Platelet 99 10 3/mcL Low 150-450 DILSHAD MASSILLON Comment on above: Performed By: #### M HAZEL MCCABE ADIFF, MDW, CBC ####Dilshad Ipnrslmlr0598 [place], [place] [address] Platelet mean volume (Bld) [Entitic vol] 7.3 fL Normal 6.6-10.5 DILSHAD MASSILLON Comment on above: Performed By: #### M HAZEL MCCABE ADIFF, MDW, CBC ####Dilshad Ben[address] [place] [phone] RBC 4.95 10 6/mcL Normal 4.10-5.30 DILSHAD MASSILLON Comment on above: Performed By: #### M HAZEL MCCABE ADIFF, MDW, CBC ####Dilshad JohnsonGttqyfowu0459 [place] [phone] WBC 7.3 10 3/mcL Normal 4.5-10.8 DILSHAD MASSILLON Comment on above: Performed By: #### M ORHAZEL SHAHID ADIFF, MDW, CBC ####Dilshad Ben[address] [place] [phone] CMPon 10-16-2024 Albumin Level 3.8 G/dL Normal 3.5-5.0 DILSHAD MASSILLON Comment on above: Performed By: #### L AC, GFR, CMP ####Dilshad Ben[address] [place] [address] Albumin/Globulin [Mass ratio] 1.0 {ratio} Low 1.1-2.5 DILSHAD MASSILLON Comment on above: Performed By: #### L AC, GFR, CMP ####Dilshad Wquhhsjxr5754 [place] [phone] ALP [Catalytic activity/Vol] 86 U/L Normal 40-135 DILSHAD MASSILLON Comment on above: Performed By: #### L AC, GFR, CMP ####Dilshad JohnsonWnhplzzmm8068 [place] [phone] ALT [Catalytic activity/Vol] 17 U/L Normal 14-59 DILSHAD MASSILLON Comment on above: Performed By: #### L AC, GFR, CMP ####Dilshad JohnsonXjoyszpuj6745 [place] [phone] AST [Catalytic activity/Vol] 16 U/L Normal 10-40 DILSHAD MASSILLON Comment on above: Performed By: #### L AC, GFR, CMP ####Dilshad JohnsonYdfqdyglu[address], [place] [address] Bili Total 0.7 mg/dL Normal 0.2-1.0 DILSHAD MASSILLON Comment on above: Result Comment: Use of this assay is not recommended for patients undergoing treatment with eltrombopag due to the potential for falsely elevated results. Performed By: #### L AC, GFR, CMP ####Dilshad JohnsonFupbsasqz3314 [place], [place] [address] BUN/Creatinine Ratio 9 ratio Normal 7-27 RHIANNON MAN MASSILLON Comment on above: Performed By: #### L AC, GFR, CMP ####Dilshad Odasermge6083 [place], [place] [address] Calcium [Mass/Vol] 9.6 mg/dL Normal 8.4-10.2 AULTMA N MASSILLON Comment on above: Performed By: #### L AC, GFR, CMP ####Dilshad JohnsonPwcdxrvya2288 [place], [place] [address] Chloride [Moles/Vol] 106 mmol/L Normal 98-107 RHIANNON MAN MASSILLON Comment on above: Performed By: #### L AC, GFR, CMP ####Dilshad Czcqogvin4174 [place], [place] [address] CO2 [Moles/Vol] 25 mmol/L Normal 22-29 DILSHAD MASSILLON Comment on above: Performed By: #### L AC, GFR, CMP ####Dilshad JohnsonXosapnwlq2558 [place], [place] [address] Creatinine [Mass/Vol] 1.03 mg/dL High 0.55-1.02 AUL TMAN MASSILLON Comment on above: Result Comment: Test ing performed on Siemens Dimension EXL analyzer using a modified kinetic Marky technique. Performed By: #### L AC, GFR, CMP ####Dilshad Ujrwduhid7971 [place], [place] [address] Electrolyte Balance 12.0 mEq/L Normal 4.0-15.0 AULTM AN MASSILLON Comment on above: Performed By: #### L AC, GFR, CMP ####Dilshad Pfyblqxtd5113 [place], [place] [address] Globulin 3.9 G/dL High 1.5-3.8 DILSHAD MASSILLON Comment on above: Performed By: #### L AC, GFR, CMP ####Dilshad Uhtjfrkzp7273 [place], [place] [address] Glucose [Mass/Vol] 118 mg/dL High 70-105 AULTMA N MASSILLON Comment on above: Performed By: #### L AC, GFR, CMP ####Dilshad Gpktsjmqj1003 [place], [place] [address] Potassium [Moles/Vol] 3.4 mmol/L Low 3.5-5.1 AUL TMAN MASSILLON Comment on above: Performed By: #### L AC, GFR, CMP ####Dilshad Swhrglqwk5940 [place], [place] [address] Sodium [Moles/Vol] 143 mmol/L Normal 136-145 AULTMA N MASSILLON Comment on above: Performed By: #### L AC, GFR, CMP ####Dilshad Gycbtrmqc6862 [place], [place] [address] Total Protein 7.7 G/dL Normal 6.4-8.2 DILSHAD MASSILLON Comment on above: Performed By: #### L AC, GFR, CMP ####Dilshad Gfjfmiekh4668 [place] [phone] Urea nitrogen [Mass/Vol] 9 mg/dL Normal 7-18 DILSHAD MASSILLON Comment on above: Performed By: #### L AC, GFR, CMP ####Dilshad Sqptbabjt8431 [place], [place] [address] CVFLURVon 10-16-2024 FLU A PCR Negative Normal Negative DILSHAD MASSILLON Comment on above: Performed By: #### C MP, ADJASPREET, MDW, MG, CBC, GFR, ANEU #### Dilshad Ship[address] [place], [place] [address] FLU B PCR Negative Normal Negative DILSHAD MASSILLON Comment on above: Performed By: #### C MP, ADIFF, MDW, MG, CBC, GFR, ANEU #### Dilshad [address] [place], [place] [address] RSV PCR Negative Normal Negative DILSHAD MASSILLON Comment on above: Performed By: #### C ILIR SNOWDEN MDW, MG, CBC, GFR, ANEU #### [facility] [address] [place] [address] SARS-CoV-2 (COVID-19) RNA MACIE+probe Ql (Unsp spec) Negative Normal Negative [facility] Comment on above: Result Comment: This test [...] positive results. Performed By: #### C ILIR SNODWEN, EDD, MG, CBC, GFR, ANEU #### Dilshad Shipman [address] [place] [address] LACon 10-16-2024 Lactic Acid Lvl 2.3 mmol/L High 0.4-2.0 [facility] Comment on above: Performed By: #### L AC, GFR, CMP ####Dilshad Mivdtjred14[address] [place] [address] PROon 10-16-2024 PT Coag (PPP) [Time] 11.4 s Normal 9.0-14.4 [facility] Comment on above: Performed By: #### P RO, APTT ####Dilshad Soypkspbx5759 [place] [address] PT International Ratio 1.0 Normal DILSHAD MASSILLON Comment on above: Result Comment: [employer] [place] [employer] (CHEST, 1992, 102:[id number]) recommended therapeutic range for oral anticoagulant therapy is: LOW RISK: Prophylaxis of venous thrombosis INR: 2.0-3.0 Treatment of pulmonary embolism 2.0-3.0 Prevention of systemic embolism 2.0-3.0 HIGH RISK: Mechanical prosthetic valves 2.5-3.5 Performed By: #### P RO, APTT ####Dilshad Frgqnyzwx1092 [place] [address] TROPHSon 10-16-2024 High Sensitivity Troponin I 10 ng/L Normal 0-51 DILSHAD MASSILLON Comment on above: Result Comment: High Sensitive Troponin I Reference Ranges: Female: 0-51 ng/L Male: 0-76 ng/L Testing performed on Miira using a homogeneous sandwich chemiluminescent immunoassay based on comment.com technology. Performed By: #### T ROPHS ####Dilshad Kopxbqgcg9323 [place] [address] UAon 10-16-2024 Color (U) Yellow Normal DILSHAD MASSILLON Comment on above: Performed By: #### U A, UAMIC ####Dilshad Lmsowotai2061 [place] [address] Glucose (U) [Mass/Vol] Negative Normal Negative DILSHAD MASSILLON Comment on above: Performed By: #### U A, UAMIC ####Dilshad Yxqqgcbey0385 [place] [address] Ketones Ql (U) Trace Normal Neg-Trace DILSHAD MASSILLON Comment on above: Performed By: #### U A, UAMIC ####Dilshad Lksusqrqn3255 [place] [address] UA Appear Clear Normal DILSHAD MASSILLON Comment on above: Performed By: #### U A, UAMIC ####Dilshad Mcppvdxba1113 [place] [address] UA Blood Small Abnormal Neg-Trace DILSHAD MASSILLON Comment on above: Performed By: #### U A, UAMIC ####Dilshad Tciwyisbg3671 [place] [address] UA Leuk Est Trace Normal Negative DILSHAD MASSILLON Comment on above: Performed By: #### U A, UAMIC ####Dilshad Azaqshajn0493 [place] [address] UA Nitrite Negative Normal Negative DILSHAD MASSILLON Comment on above: Performed By: #### U A, UAMIC ####Dilshad Xcpspqkjp7574 [place] [address] UA pH 7.0 Normal 5.0 - 8.0 DILSHAD MASSILLON Comment on above: Performed By: #### U A, UAMIC ####Dilshad Qcfzhkzjc4050 [place] [address] UA Protein 30 mg/dL Normal Negative DILSHAD MASSILLON Comment on above: Performed By: #### U A, UAMIC ####Dilshad JohnsonZqgqxnejm0662 [place] [address] UA Spec Grav 1.020 Normal DILSHAD MASSILLON Comment on above: Performed By: #### U A, UAMIC ####Dilshad Xbjsqlixm8265 [place] [address] UA Specimen Type Straight Cath Normal AULTM AN MASSILLON Comment on above: Performed By: #### U A, UAMIC ####Dilshad JohnsonJswocftqv7643 [place] [address] UA Urobilinogen 4.0 E.U./dL Abnormal DILSHAD MASSILLON Comment on above: Performed By: #### U A, UAMIC ####Dilshad Swuymzart6413 [place] [address] Urobilinogen (U) [Mass/Vol] Negative Normal Neg-Trace DILSHAD MASSILLON Comment on above: Performed By: #### U A, UAMIC ####Dilshad Kbjleyfwe6698 [place] [address] UAMICon 10-16-2024 UA Bacteria Trace Abnormal Negative DILSHAD MASSILLON Comment on above: Performed By: #### U A, UAMIC ####Dilshad Afrfjebmd0935 [place] [address] UA RBC 3-5 Abnormal 0-2 DILSHAD MASSILLON Comment on above: Performed By: #### U A, UAMIC ####Dilshad Ben[address] [place] [phone] UA Squam Epithelial 3-5 Normal 0-20 AULTM AN MASSILLON Comment on above: Performed By: #### U A, UAMIC ####Dilshad JohnsonYtzfigbbf5924 [place] [address] UA WBC Rare Normal 0-5 DILSHAD MASSILLON Comment on above: Performed By: #### U A, UAMIC ####Dilshad JohnsonFfjzrztgo7284 [place] [address] PREGUon 10-11-2024 HCG ( test) Ql (U) Negative Normal DILSHAD MASSILLON Comment on above: Performed By: #### U A, PREGU, UAMIC ####Dilshad Ben[address] [place] [address] test (u) int Invalid Interpretation Code DILSHAD MASSILLON Comment on above: Result Comment: HCG not detected. Very dilute urine specimens, as indicated by a low specific gravity, may not contain billing representative levels of hCG. If is still suspected, a first morning urine specimen should be collected 48 hours later and tested. Performed By: #### U A, PREGU, UAMIC ####Dilshad Ben[address] [place] [address] UAon 10-11-2024 Color (U) Yellow Normal DILSHAD MASSILLON Comment on above: Performed By: #### U A, PREGU, UAMIC ####Dilshad JohnsonVlkcgktbt9656 [place] [phone] Glucose (U) [Mass/Vol] Negative Normal Negative DILSHAD MASSILLON Comment on above: Performed By: #### U A, PREGU, UAMIC ####Dilshad JohnsonNukoaninr2652 [place] [address] Ketones Ql (U) Negative Normal Neg-Trace DILSHAD MASSILLON Comment on above: Performed By: #### U A, PREGU, UAMIC ####Dilshad Gtsrczatt3317 [place] [address] UA Appear Cloudy Abnormal DILSHAD MASSILLON Comment on above: Performed By: #### U A, PREGU, UAMIC ####Dilshad Jnkjmwzbf5988 [place] [address] UA Blood Small Abnormal Neg-Trace DILSHAD MASSILLON Comment on above: Performed By: #### U A, PREGU, UAMIC ####Dilshad Tjzdccevi3834 [place] [address] UA Leuk Est Moderate Abnormal Negative DILSHAD MASSILLON Comment on above: Performed By: #### U A, PREGU, UAMIC ####Dilshad Gwhztuwzv6502 [place] [address] UA Nitrite Negative Normal Negative DILSHAD MASSILLON Comment on above: Performed By: #### U A, PREGU, UAMIC ####Dilshad Xjtmdmvio6179 [place] [address] UA pH 7.5 Normal 5.0 - 8.0 DILSHAD MASSILLON Comment on above: Performed By: #### U A, PREGU, UAMIC ####Dilshad Idkusbtpe3017 [place] [address] UA Protein Negative Normal Negative DILSHAD MASSILLON Comment on above: Performed By: #### U A, PREGU, UAMIC ####Dilshad Pedfkzkke5007 [place] [address] UA Spec Grav 1.015 Normal DILSHAD MASSILLON Comment on above: Performed By: #### U A, PREGU, UAMIC ####Dilshad Mszufuxaw8947 [place] [address] UA Specimen Type Clean Catch Normal DILSHAD MASSILLON Comment on above: Performed By: #### U A, PREGU, UAMIC ####Dilshad Twvassyqc1400 [place] [address] UA Urobilinogen 1.0 E.U./dL Normal DILSHAD MASSILLON Comment on above: Performed By: #### U A, PREGU, UAMIC ####Dilshad Qantytjtz6996 [place] [address] Urobilinogen (U) [Mass/Vol] Negative Normal Neg-Trace DILSHAD MASSILLON Comment on above: Performed By: #### U A, PREGU, UAMIC ####Dilshad Vcrlhixuy7240 [place] [address] UAMICon 10-11-2024 UA Amorphus 2+ /hpf Normal DILSHAD MASSILLON Comment on above: Performed By: #### U A, PREGU, UAMIC ####Dilshad Ltqmdtrre9585 [place] [address] UA Bacteria 2+ /hpf Abnormal Negative DILSHAD MASSILLON Comment on above: Performed By: #### U A, PREGU, UAMIC ####Dilshad Qcrqjrasl8493 [place] [address] UA Ghost cells 0-2 Abnormal DILSHAD MASSILLON Comment on above: Performed By: #### U A, PREGU, UAMIC ####Dilshad Kqrpvcfug6018 [place] [address] UA Hyal Cast Rare Normal DILSHAD MASSILLON Comment on above: Performed By: #### U A, PREGU, UAMIC ####Dilshad Jeukvwxjt8806 [place] [address] UA Mucous Trace Normal DILSHAD MASSILLON Comment on above: Performed By: #### U A, PREGU, UAMIC ####Dilshad Rokphsyml2442 [place] [address] UA RBC 0-2 Normal 0-2 DILSHAD MASSILLON Comment on above: Performed By: #### U A, PREGU, UAMIC ####Dilshad Jhqfxobap5347 [place] [address] UA Squam Epithelial 0-2 Normal 0-20 AULTM AN MASSILLON Comment on above: Performed By: #### U A, PREGU, UAMIC ####Dilshad Qgqhlbcyz[address], [place] [address] UA WBC 0-2 Normal 0-5 DILSHAD MASSILLON Comment on above: Performed By: #### U A, PREGU, UAMIC ####Dilshad Hyfpbxatg3026 [place], [place] [address] .Auto Diffon 09-13-2024 Basophil, Absolute 0.0 10 3/mcL Normal 0.0-0.3 RHIANNON MAN MASSILLON Comment on above: Performed By: #### C MP, ADIFF, MDW, MG, CBC, GFR, ANEU #### Dilshad Shipman [address] [place], [place] [address] Basophils/100 WBC (Bld) 0.5 % Normal 0.0-2.5 DILSHAD MASSILLON Comment on above: Performed By: #### C MP, ADIFF, MDW, MG, CBC, GFR, ANEU #### Dilshad Shipman [address] [place], [place] [address] Eosinophil, Absolute 0.0 10 3/mcL Normal 0.0-0.7 AU LTMAN MASSILLON Comment on above: Performed By: #### C MP, ADIFF, MDW, MG, CBC, GFR, ANEU #### Dilshad Shipman [address] [place], [place] [address] Eosinophils/100 WBC (Bld) 0.4 % Normal 0.0-6.0 DILSHAD MASSILLON Comment on above: Performed By: #### C MP, ADIFF, MDW, MG, CBC, GFR, ANEU #### Dilshad Shipman [address] [place], [place] [address] Lymphocyte, Absolute 0.7 10 3/mcL Low 0.9-4.3 AU LTMAN MASSILLON Comment on above: Performed By: #### C MP, ADIFF, MDW, MG, CBC, GFR, ANEU #### Dilshad Shipman [address] [place], [place] [address] Lymphocytes/100 WBC (Bld) 12.7 % Low 20.0-40.0 DILSHAD MASSILLON Comment on above: Performed By: #### C MP, ADIFF, MDW, MG, CBC, GFR, ANEU #### Dilshad Shipman [address] [place], [place] [address] Monocyte, Absolute 1.2 10 3/mcL Normal 0.1-1.4 RHIANNON MAN MASSILLON Comment on above: Performed By: #### C MP, ADIFF, MDW, MG, CBC, GFR, ANEU #### Dilshad Ship[address] [place], [place] [address] Monocytes/100 WBC (Bld) 20.7 % High 2.0-13.0 DILSHAD MASSILLON Comment on above: Performed By: #### C MP, ADIFF, MDW, MG, CBC, GFR, ANEU #### Dilshad Shipman [address] [place], [place] [address] Neutrophils/100 WBC (Bld) 65.7 % Normal 50.0-75.0 DILSHAD MASSILLON Comment on above: Performed By: #### C MP, ADIFF, MDW, MG, CBC, GFR, ANEU #### Dilshad Shipman [address] [place], [place] [address] .GFRon 09-13-2024 Estimated Glomerular Filtration Rate 79 ml/min/1.73sqm [facility] Comment on above: Result Comment: Stages [...] MDW, MG, CBC, GFR, ANEU #### Dilshad Shipman [address] [place], [place] [address] .MDWon 09-13-2024 Monocyte Distribution Width 24.19 High 0.00-20.00 DILSHAD MASSILLON Comment on above: Result Comment: For adults in ED, MDW>20.0 may be associated with a higher risk of sepsis during the first 12hrs of hospital admission Performed By: #### C ISI, MD ILIRW, MG, CBC, GFR, ANEU #### [facility] [address] [place] [address] .Morphon 09-13-2024 Anisocytosis Ql (Bld) 1+ Normal [facility] Comment on above: Performed By: #### C MP, ILIR, MDW, MG, CBC, GFR, ANEU #### [facility] [address] [place] [address] Platelet Estimate Decreased Normal [facility] Comment on above: Performed By: #### C ISI, ILIR, W, MG, CBC, GFR, ANEU #### [facility] [address] [place] [address] .NEUABSon 09-13-2024 Neutrophil, Absolute 3.8 10 3/mcL Normal 2.3-8.1 [facility] Comment on above: Performed By: #### C ISI, ILIR, MDW, MG, CBC, GFR, ANEU #### [facility] [address] [place] [address] CBCon 09-13-2024 Erythrocyte distribution width (RBC) [Ratio] 14.9 % Normal 11.5-15.5 [facility] Comment on above: Performed By: #### C ISI, ILIR, MDW, MG, CBC, GFR, ANEU #### [facility] [address] [place] [address] Hematocrit (Bld) [Volume fraction] 42.0 % Normal 34.0-46.0 [facility] Comment on above: Performed By: #### C ISI, ILIR, W, MG, CBC, GFR, ANEU #### [facility] [address] [place] [phone] Hgb 14.1 G/dL Normal 12.0-16.0 [facility] Comment on above: Performed By: #### C ISI, ILIR, W, MG, CBC, GFR, ANEU #### Dilshad Shipman [address] [place], [place] [address] MCH (RBC) [Entitic mass] 32.2 pg Normal 27.0-33.0 DILSHAD MASSILLON Comment on above: Performed By: #### C MP, ADIFF, MDW, MG, CBC, GFR, ANEU #### Dilshad Ben [address] [place], [place] [address] MCHC 33.6 G/dL Normal 32.0-36.0 DILSHAD MASSILLON Comment on above: Performed By: #### C MP, ADIFF, MDW, MG, CBC, GFR, ANEU #### Dilshad [address] [place] [phone] MCV (RBC) [Entitic vol] 95.9 fL Normal 80.0-99.0 DILSHAD MASSILLON Comment on above: Performed By: #### C MP, ADIFF, MDW, MG, CBC, GFR, ANEU #### Dilshad [address] [place] [phone] Platelet 78 10 3/mcL Low 150-450 DILSHAD MASSILLON Comment on above: Performed By: #### C MP, ADIFF, MDW, MG, CBC, GFR, ANEU #### Dilshad [address] [place] [phone] Platelet mean volume (Bld) [Entitic vol] 7.3 fL Normal 6.6-10.5 DILSHAD MASSILLON Comment on above: Performed By: #### C MP, ADIFF, MDW, MG, CBC, GFR, ANEU #### Dilshad [address] [place] [phone] RBC 4.38 10 6/mcL Normal 4.10-5.30 DILSHAD MASSILLON Comment on above: Performed By: #### C MP, ADIFF, MDW, MG, CBC, GFR, ANEU #### Dilshad [address] [place] [phone] WBC 5.8 10 3/mcL Normal 4.5-10.8 DILSHAD MASSILLON Comment on above: Performed By: #### C MP, ADIFF, MDW, MG, CBC, GFR, ANEU #### Dilshad [address] [place], [place] [address] CMPon 09-13-2024 Albumin Level 2.9 G/dL Low 3.5-5.0 DILSHAD MASSILLO Comment on above: Performed By: #### C MP, ADIFF, MDW, MG, CBC, GFR, ANEU #### Dilshad Ben [address] [place], [place] [address] Albumin/Globulin [Mass ratio] 0.9 {ratio} Low 1.1-2.5 [facility] Comment on above: Performed By: #### C MP, ADIFF, MDW, MG, CBC, GFR, ANEU #### Dilshadvazquez JohnsonShipman [address] [place], [place] [address] ALP [Catalytic activity/Vol] 73 U/L Normal 40-135 [facility]AD [facility] Comment on above: Performed By: #### C MP, ADIFF, MDW, MG, CBC, GFR, ANEU #### Dilshadvazquez JohnsonShipman [address] [place], [place] [address] ALT [Catalytic activity/Vol] 28 U/L Normal 14-59 [facility]AD [facility] Comment on above: Performed By: #### C MP, ADIFF, MDW, MG, CBC, GFR, ANEU #### Dilshad [address] [place], [place] [address] AST [Catalytic activity/Vol] 20 U/L Normal 10-40 [facility] Comment on above: Performed By: #### C MP, ADIFF, MDW, MG, CBC, GFR, ANEU #### Dilshad [address] [place], [place] [address] Bili Total 0.4 mg/dL Normal 0.2-1.0 DILSHAD BISBEE Comment on above: Result Comment: Use of this assay is not recommended for patients undergoing treatment with eltrombopag due to the potential for falsely elevated results. Performed By: #### C MP, ADIFF, MDW, MG, CBC, GFR, ANEU #### Dilshad Shipman [address] [place], [place] [address] BUN/Creatinine Ratio 11 ratio Normal 7-27 RHIANNON MAN [place] Comment on above: Performed By: #### C MP, ADIFF, MDW, MG, CBC, GFR, ANEU #### Dilshad [address] [place], [place] [address] Calcium [Mass/Vol] 8.9 mg/dL Normal 8.4-10.2 AULTMA N [place] Comment on above: Performed By: #### C MP, ADIFF, MDW, MG, CBC, GFR, ANEU #### Dilshad [address] [place], [place] [address] Chloride [Moles/Vol] 103 mmol/L Normal 98-107 RHIANNON MAN [place] Comment on above: Performed By: #### C MP, ADIFF, MDW, MG, CBC, GFR, ANEU #### Dilshad [address] [place] [id number] CO2 [Moles/Vol] 28 mmol/L Normal 22-29 DILSHAD MASSILLON Comment on above: Performed By: #### C MP, ADIFF, MDW, MG, CBC, GFR, ANEU #### Dilshad [address] [place], [place] [address] Creatinine [Mass/Vol] 0.90 mg/dL Normal 0.55-1.02 AUL TMAN [place] Comment on above: Result Comment: Test ing performed on Siemens Dimension EXL analyzer using a modified kinetic Marky technique. Performed By: #### C MP, ADIFF, MDW, MG, CBC, GFR, ANEU #### Dilshad [address] [place], [place] [address] Electrolyte Balance 7.0 mEq/L Normal 4.0-15.0 AULTM AN [place] Comment on above: Performed By: #### C MP, ADIFF, MDW, MG, CBC, GFR, ANEU #### Dilshad [address]man [address] [place], [place] [address] Globulin 3.3 G/dL Normal 1.5-3.8 DILSHAD MASSILLON Comment on above: Performed By: #### C MP, ADIFF, MDW, MG, CBC, GFR, ANEU #### Dilshad [address] [place], [place] [address] Glucose [Mass/Vol] 139 mg/dL High 70-105 AULTMA N [place] Comment on above: Performed By: #### C ILIR SNOWDEN MDW, MG, CBC, GFR, ANEU #### Dilshad Shipman [address] [place], [place] [address] Potassium [Moles/Vol] 3.7 mmol/L Normal 3.5-5.1 AUL TMAN [place] Comment on above: Performed By: #### C ISI, ILIR, W, MG, CBC, GFR, ANEU #### Dilshad Shipman [address] [place], [place] [address] Sodium [Moles/Vol] 138 mmol/L Normal 136-145 AULTMA N [place] Comment on above: Performed By: #### C ISI, ILIR, W, MG, CBC, GFR, ANEU #### Dilshad Johnsonillon [address] [place], [place] [address] Total Protein 6.2 G/dL Low 6.4-8.2 DILSHAD MASSILLON Comment on above: Performed By: #### C ILIR SNOWDEN, W, MG, CBC, GFR, ANEU #### Dilshad Shipman [address] [place], [place] [address] Urea nitrogen [Mass/Vol] 10 mg/dL Normal 7-18 DILSHAD MASSILLON Comment on above: Performed By: #### C ILIR SNOWDEN, W, MG, CBC, GFR, ANEU #### Dilshad Johnson[address] [place], [place] [address] CVFLURVon 09-13-2024 FLU A PCR Positive Abnormal Negative DILSHAD MASSILLON Comment on above: Performed By: #### C VFLURV ####Dilshad JohnsonVnzhatblq5311 [place], [place] [address] FLU B PCR Negative Normal Negative DILSHAD MASSILLON Comment on above: Performed By: #### C VFLURV ####Dilshadsocorro JohnsonRmfzmayfa4193 [place], [place] [address] RSV PCR Negative Normal Negative DILSHAD MASSILLON Comment on above: Performed By: #### C VFLURV ####Dilshad Soowsiofq4766 [place], [place] [address] SARS-CoV-2 (COVID-19) RNA MACIE+probe Ql (Unsp spec) Negative Normal Negative [facility] Comment on above: Result Comment: This test [...] Performed By: #### C VFLURV ####Dilshad Ben20[address] [place], [place] [address] LACon 09-13-2024 Lactic Acid Lvl 1.5 mmol/L Normal 0.4-2.0 [facility] Comment on above: Performed By: #### C ILIR SNOWDEN MDW, MG, CBC, GFR, ANEU #### Dilshad Ben [address] [place], [place] [address] MGon 09-13-2024 Magnesium [Mass/Vol] 1.8 mg/dL Normal 1.8-2.4 [facility] Comment on above: Performed By: #### C ISI, ILIR, MDW, MG, CBC, GFR, ANEU #### Dilshad Shipman [address] [place], [place] [address] PREGUon 09-13-2024 HCG ( test) Ql (U) Negative Normal DILSHAD MASSILLON Comment on above: Performed By: #### U AMIC, UA, PREGU ####Dilshad Rvbaggeas0564 [place] [address] test (u) int Invalid Interpretation Code DILSHAD MASSILLON Comment on above: Result Comment: HCG not detected. Very dilute urine specimens, as indicated by a low specific gravity, may not contain billing representative levels of hCG. If is still suspected, a first morning urine specimen should be collected 48 hours later and tested. Performed By: #### U AMIC, UA, PREGU ####Dilshad [id number] [place] [phone] UAon 09-13-2024 Color (U) Yellow Normal DILSHAD MASSILLON Comment on above: Performed By: #### U AMIC, UA, PREGU ####Dilshad Fdjwqfnqi2038 [place] [address] Glucose (U) [Mass/Vol] Negative Normal Negative DILSHAD MASSILLON Comment on above: Performed By: #### U AMIC, UA, PREGU ####Dilshad Vsfsfvhch4025 [place] [address] Ketones Ql (U) Negative Normal Neg-Trace DILSHAD MASSILLON Comment on above: Performed By: #### U AMIC, UA, PREGU ####Dilshad [id number] [place] [id number] UA Appear Cloudy Abnormal DILSHAD MASSILLON Comment on above: Performed By: #### U AMIC, UA, PREGU ####Dilshad Mgausyfmu3557 [place] [id number] UA Blood Moderate Abnormal Neg-Trace DILSHAD MASSILLON Comment on above: Performed By: #### U AMIC, UA, PREGU ####Dilshad Nhujjpzqi9514 [place] [phone] UA Leuk Est Negative Normal Negative DILSHAD MASSILLON Comment on above: Performed By: #### U AMIC, UA, PREGU ####Dilshad Qmtcaqive0840 [place] [address] UA Nitrite Negative Normal Negative DILSHAD MASSILLON Comment on above: Performed By: #### U AMIC, UA, PREGU ####Dilshad Ysxvbuwhk8396 [place] [address] UA pH 7.0 Normal 5.0 - 8.0 DILSHAD MASSILLON Comment on above: Performed By: #### U AMIC, UA, PREGU ####Dilshad Mrcoyvipw9764 [place] [address] UA Protein Negative Normal Negative DILSHAD MASSILLON Comment on above: Performed By: #### U AMIC, UA, PREGU ####Dilshad Jhhdjbbwe4892 [place] [address] UA Spec Grav 1.010 Abnormal DILSHAD MASSILLON Comment on above: Performed By: #### U AMIC, UA, PREGU ####Dilshad Ndagfptwg1348 [place] [address] UA Specimen Type Clean Catch Normal DILSHAD MASSILLON Comment on above: Performed By: #### U AMIC, UA, PREGU ####Dilshad Tnshnbony4373 [place] [address] UA Urobilinogen 2.0 E.U./dL Abnormal DILSHAD MASSILLON Comment on above: Performed By: #### U AMIC, UA, PREGU ####Dilshad Axokvrhsr6848 [place] [address] Urobilinogen (U) [Mass/Vol] Negative Normal Neg-Trace DILSHAD MASSILLON Comment on above: Performed By: #### U AMIC, UA, PREGU ####Dilshad Lvcoondyz7750 [place] [address] UAMICon 09-13-2024 UA Amorphus 1+ /hpf Normal DILSHAD MASSILLON Comment on above: Performed By: #### U AMIC, UA, PREGU ####Dilshad Xdhldvpsn2990 [place] [address] UA Bacteria Trace Abnormal Negative DILSHAD MASSILLON Comment on above: Performed By: #### U AMIC, UA, PREGU ####Dilshad Zyzatzqrw0719 [place], [place] [address] UA RBC Rare Normal 0-2 DILSHAD MASSILLON Comment on above: Performed By: #### U AMIC, UA, PREGU ####Dilshad Ezwiorkjv4397 [place], [place] [address] UA Squam Epithelial Rare Normal 0-20 AULTM AN [place] Comment on above: Performed By: #### U AMIC, UA, PREGU ####Dilshad Vtjqlmfkp2605 [place] [address] UA WBC Rare Normal 0-5 DILSHAD MASSILLON Comment on above: Performed By: #### U AMIC, UA, PREGU ####Dilshad Knelpsmav3165 [place], [place] [address] XR CHEST 2 VIEWSon XR CHEST 2 VIEWS ORIGINAL EXAMINATION: TWO XRAY VIEWS OF THE CHEST 09/13/2024 10:56 pm COMPARISON: Radiograph of the chest July 26, 2024 HISTORY: ORDERING SYSTEM PROVIDED HISTORY: Reason for Exam: PT FROM [facility], ALTERED MS, + FLU A SOB FINDINGS: [...] MDW, MG, CBC, GFR, ANEU #### Dilshad Shipman [address] [place], [place] [address] Basophils/100 WBC (Bld) 0.6 % Normal 0.0-2.5 DILSHAD MASSILLON Comment on above: Performed By: #### C MP, ADIFF, MDW, MG, CBC, GFR, ANEU #### Dilshad Shipman [address] [place], [place] [address] Eosinophil, Absolute 0.1 10 3/mcL Normal 0.0-0.7 AU LTMAN MAS[place]LLON Comment on above: Performed By: #### C MP, ADIFF, MDW, MG, CBC, GFR, ANEU #### Dilshad Shipman [address] [place], [place] [address] Eosinophils/100 WBC (Bld) 1.1 % Normal 0.0-6.0 DILSHAD MASSILLON Comment on above: Performed By: #### C MP, ADIFF, MDW, MG, CBC, GFR, ANEU #### Dilshad Shipman [address] [place], [place] [address] Lymphocyte, Absolute 3.8 10 3/mcL Normal 0.9-4.3 AU LTMAN [place] Comment on above: Performed By: #### C MP, ADIFF, MDW, MG, CBC, GFR, ANEU #### Dilshad Shipman [address] [place], [place] [address] Lymphocytes/100 WBC (Bld) 43.0 % High 20.0-40.0 DILSHAD MASSILLON Comment on above: Performed By: #### C MP, ADIFF, MDW, MG, CBC, GFR, ANEU #### Dilshad Shipman [address] [place], [place] [address] Monocyte, Absolute 1.3 10 3/mcL Normal 0.1-1.4 RHIANNON MAN [place] Comment on above: Performed By: #### C MP, ADIFF, MDW, MG, CBC, GFR, ANEU #### Dilshad Shipman [address] [place], [place] [address] Monocytes/100 WBC (Bld) 14.6 % High 2.0-13.0 DILSHAD MASSILLON Comment on above: Performed By: #### C MP, ADIFF, MDW, MG, CBC, GFR, ANEU #### Dilshad Shipman [address] [place], [place] [address] Neutrophils/100 WBC (Bld) 40.7 % Low 50.0-75.0 DILSHAD MASSILLON Comment on above: Performed By: #### C ILIR SNOWDEN MDW, MG, CBC, GFR, ANEU #### Dilshad Shipman [address] [place], [place] [address] .GFRon 08-20-2024 GFR 73 ml/min/1.73sqm Normal DILSHAD [...] SNOWDEN MDW, MG, CBC, GFR, ANEU ####Dilshad Jzbvhmtvp8194 [place], [place] [address] GFR Non- 60 ml/min/1.73sqm Normal DILSHAD MASSILLON [...] SNOWDEN, EDD, MG, CBC, GFR, ANEU ####Dilshad Vomgxjslw9041 [place] [address] .MDWon 08-20-2024 Monocyte Distribution Width 18.14 Normal 0.00-20.00 [facility] Comment on above: Result Comment: For ED adult patients suspected of sepsis, MDW<=20.0 does not rule out sepsis or risk of sepsis Performed By: #### C MP, ADIFF, MDW, MG, CBC, GFR, ANEU #### Dilshad Shipman [address] [place] [address] .NEUABSon 08-20-2024 Neutrophil, Absolute 3.6 10 3/mcL Normal 2.3-8.1 [facility] Comment on above: Performed By: #### C MP, ADIFF, MDW, MG, CBC, GFR, ANEU #### Dilshad Shipman [address] [place] [address] CBCon 08-20-2024 Erythrocyte distribution width (RBC) [Ratio] 15.3 % Normal 11.5-15.5 [facility] Comment on above: Performed By: #### C MP, ADIFF, MDW, MG, CBC, GFR, ANEU #### Dilshad Shipman [address] [place] [address] Hematocrit (Bld) [Volume fraction] 45.6 % Normal 34.0-46.0 [facility] Comment on above: Performed By: #### C MP, ADIFF, MDW, MG, CBC, GFR, ANEU #### Dilshad Shipman [address] [place] [address] Hgb 15.6 G/dL Normal 12.0-16.0 [facility] Comment on above: Performed By: #### C MP, ADIFF, MDW, MG, CBC, GFR, ANEU #### Dilshad Shipman [address] [place] [address] MCH (RBC) [Entitic mass] 31.7 pg Normal 27.0-33.0 [facility] Comment on above: Performed By: #### C MP, ADIFF, MDW, MG, CBC, GFR, ANEU #### Dilshad Shipman [address] [place], [place] [address] MCHC 34.3 G/dL Normal 32.0-36.0 DILSHAD MASSILLON Comment on above: Performed By: #### C MP, ADIFF, MDW, MG, CBC, GFR, ANEU #### Dilshad Ben [address] [place], [place] [address] MCV (RBC) [Entitic vol] 92.6 fL Normal 80.0-99.0 DILSHAD MASSILLON Comment on above: Performed By: #### C MP, ADIFF, MDW, MG, CBC, GFR, ANEU #### Dilshad Ben [address] [place], [place] [address] Platelet 140 10 3/mcL Low 150-450 DILSHAD MASSILLON Comment on above: Performed By: #### C MP, ADIFF, MDW, MG, CBC, GFR, ANEU #### Dilshad Ben [address] [place], [place] [address] Platelet mean volume (Bld) [Entitic vol] 6.7 fL Normal 6.6-10.5 DILSHAD MASSILLON Comment on above: Performed By: #### C MP, ADIFF, MDW, MG, CBC, GFR, ANEU #### Dilshad Ben [address] [place], [place] [address] RBC 4.92 10 6/mcL Normal 4.10-5.30 DILSHAD MASSILLON Comment on above: Performed By: #### C MP, ADIFF, MDW, MG, CBC, GFR, ANEU #### Dilshad Ben [address] [place], [place] [address] WBC 8.8 10 3/mcL Normal 4.5-10.8 DILSHAD MASSILLON Comment on above: Performed By: #### C MP, ADIFF, MDW, MG, CBC, GFR, ANEU #### Dilshad Ben [address] [place], [place] [address] CMPon 08-20-2024 Albumin Level 3.3 G/dL Low 3.5-5.0 DILSHAD MASSILLON Comment on above: Performed By: #### C MP, ADIFF, MDW, MG, CBC, GFR, ANEU ####Dilshad JohnsonVxsicpwgp1523 [place], [place] [address] Albumin/Globulin [Mass ratio] 0.9 {ratio} Low 1.1-2.5 DILSHAD MASSILLON Comment on above: Performed By: #### C MP, ADIFF, MDW, MG, CBC, GFR, ANEU ####Dilshad JohnsonBdtggmuke0341 [place], [place] [address] ALP [Catalytic activity/Vol] 81 U/L Normal 40-135 DILSHAD MASSILLON Comment on above: Performed By: #### C MP, ADIFF, MDW, MG, CBC, GFR, ANEU ####Dilshad Ben[address] [place] [phone] ALT [Catalytic activity/Vol] 19 U/L Normal 14-59 DILSHAD MASSILLON Comment on above: Performed By: #### C MP, ADIFF, MDW, MG, CBC, GFR, ANEU ####Dilshad Ben[address] [place] [phone] AST [Catalytic activity/Vol] 16 U/L Normal 10-40 DILSHAD MASSILLON Comment on above: Performed By: #### C MP, ADIFF, MDW, MG, CBC, GFR, ANEU ####Dilshad Ben[address] [place] [phone] Bili Total 0.6 mg/dL Normal 0.2-1.0 DILSHAD MASSILLON Comment on above: Result Comment: Use of this assay is not recommended for patients undergoing treatment with eltrombopag due to the potential for falsely elevated results. Performed By: #### C MP, ADIFF, MDW, MG, CBC, GFR, ANEU ####Dilshad Ben[address] [place] [phone] BUN/Creatinine Ratio 12 ratio Normal 7-27 RHIANNON MAN [place] Comment on above: Performed By: #### C MP, ADIFF, MDW, MG, CBC, GFR, ANEU ####Dilshadvazquez BeFpeqacxiv5311 [place] [phone] Calcium [Mass/Vol] 9.5 mg/dL Normal 8.4-10.2 AULTMA N [place] Comment on above: Performed By: #### C MP, ADIFF, MDW, MG, CBC, GFR, ANEU ####Dilshad JohnsonWidkfmrhn4629 [place], [place] [address] Chloride [Moles/Vol] 103 mmol/L Normal 98-107 RHIANNON MAN [place] Comment on above: Performed By: #### C MP, ADIFF, MDW, MG, CBC, GFR, ANEU ####Dilshad JohnsonKyrdelqsm5572 [place], [place] [address] CO2 [Moles/Vol] 32 mmol/L High 22-29 DILSHAD MASSILLON Comment on above: Performed By: #### C MP, ADIFF, MDW, MG, CBC, GFR, ANEU ####Dilshad JohnsonGhfsoxmme0991 [place], [place] [address] Creatinine [Mass/Vol] 0.99 mg/dL Normal 0.55-1.02 AUL TMAN [place] Comment on above: Result Comment: Test ing performed on [employer] Dimension EXL analyzer using a modified kinetic Marky technique. Performed By: #### C MP, ADIFF, MDW, MG, CBC, GFR, ANEU ####Dilshad JohnsonHzhjmmhve9872 [place], [place] [address] Electrolyte Balance 8.0 mEq/L Normal 4.0-15.0 AULTM AN [place] Comment on above: Performed By: #### C MP, ADIFF, MDW, MG, CBC, GFR, ANEU ####Dilshad JohnsonFnbfchnwy8936 [place], [place] [address] Globulin 3.7 G/dL Normal DILSHAD MASSILLON Comment on above: Performed By: #### C MP, ADIFF, MDW, MG, CBC, GFR, ANEU ####Dilshad JohnsonJirsaoviz5539 [place], [place] [address] Glucose [Mass/Vol] 118 mg/dL High 70-105 AULTMA N [place] Comment on above: Performed By: #### C MP, ADIFF, MDW, MG, CBC, GFR, ANEU ####Dilshad Mywdwlzzk7451 [place], [place] [address] Potassium [Moles/Vol] 2.8 mmol/L Low 3.5-5.1 AUL TMAN [place] Comment on above: Performed By: #### C MP, ILIR, MDW, MG, CBC, GFR, ANEU ####Dilshad Jaisnpfim7329 [place], [place] [address] Sodium [Moles/Vol] 143 mmol/L Normal 136-145 [facility]ULT[facility] N [place] Comment on above: Performed By: #### C MP, ADIFF, MDW, MG, CBC, GFR, ANEU ####Dilshad Gugxlvznj3334 [place], [place] [address] Total Protein 7.0 G/dL Normal 6.4-8.2 [facility] Comment on above: Performed By: #### C MP, ILIR, MDW, MG, CBC, GFR, ANEU ####[facility] [place] [address] Urea nitrogen [Mass/Vol] 12 mg/dL Normal 7-18 [facility] Comment on above: Performed By: #### C MP, ILIR, MDW, MG, CBC, GFR, ANEU ####[facility] [place], [place] [address] MGon 08-20-2024 Magnesium [Mass/Vol] 2.0 mg/dL Normal 1.8-2.4 [facility] Comment on above: Performed By: #### C MP, ILIR, MDW, MG, CBC, GFR, ANEU #### [facility] [address] [place], [place] [address] .Auto Diffon 08-18-2024 Basophil, Absolute 0.0 10 3/mcL Normal 0.0-0.3 [facility] Comment on above: Performed By: #### F ES, GFR, FT3, ADIFF, A1C, CMP, CBC, TSH, ANEU, FT4 #### [facility] [address] [place] [address] Basophils/100 WBC (Bld) 0.3 % Normal 0.0-2.5 [facility] Comment on above: Performed By: #### F ES, GFR, FT3, ADIFF, A1C, CMP, CBC, TSH, ANEU, FT4 #### [address] [address] Eosinophil, Absolute 0.1 10 3/mcL Normal 0.0-0.7 [facility] Comment on above: Performed By: #### F ES, GFR, FT3, ADIFF, A1C, CMP, CBC, TSH, ANEU, FT4 #### [address] [address] Eosinophils/100 WBC (Bld) 1.2 % Normal 0.0-6.0 [facility] Comment on above: Performed By: #### F ES, GFR, FT3, ADIFF, A1C, CMP, CBC, TSH, ANEU, FT4 #### [address] [address] Lymphocyte, Absolute 3.4 10 3/mcL Normal 0.9-4.3 [facility] Comment on above: Performed By: #### F ES, GFR, FT3, ADIFF, A1C, CMP, CBC, TSH, ANEU, FT4 #### [address] [address] Lymphocytes/100 WBC (Bld) 43.7 % High 20.0-40.0 [facility] Comment on above: Performed By: #### F ES, GFR, FT3, ADIFF, A1C, CMP, CBC, TSH, ANEU, FT4 #### [address] [address] Monocyte, Absolute 0.9 10 3/mcL Normal 0.1-1.4 [facility] Comment on above: Performed By: #### F ES, GFR, FT3, ADIFF, A1C, CMP, CBC, TSH, ANEU, FT4 #### [address] [address] Monocytes/100 WBC (Bld) 11.5 % Normal 2.0-13.0 [facility] Comment on above: Performed By: #### F ES, GFR, FT3, ADIFF, A1C, CMP, CBC, TSH, ANEU, FT4 #### [address] [address] Neutrophils/100 WBC (Bld) 43.3 % Low 50.0-75.0 [facility] Comment on above: Performed By: #### F ES, GFR, FT3, ADIFF, A1C, CMP, CBC, TSH, ANEU, FT4 #### [address] [address] .GFRon 08-18-2024 GFR >60 [facility] Comment on above: Result [...] A1C, CMP, CBC, TSH, ANEU, FT4 #### [address] [address] GFR Non- >60 [facility] [place] [facility]IN Comment on above: Result [...] A1C, CMP, CBC, TSH, ANEU, FT4 #### [place] [address] .NEUABSon 08-18-2024 Neutrophil, Absolute 3.3 10 3/mcL Normal 2.3-8.1 [facility] Comment on above: Performed By: #### F ES, GFR, FT3, ADIFF, A1C, CMP, CBC, TSH, ANEU, FT4 #### [place] [address] A1Con 08-18-2024 Glucose [Mass/Vol] 82 mg/dL Normal [facility] Comment on above: Result Comment: Chrissy mated Average Glucose calculated by equation ((28.7xA1C)-46.7) Estimated average glucose (eAG) is a calculated value from Hemoglobin A1C and is billing representative of the average blood glucose level in the last 2-3 month period. Normal range: less than 114 mg/dL Performed By: #### F ES, GFR, FT3, ADIFF, A1C, CMP, CBC, TSH, ANEU, FT4 #### [place] [address] HbA1c (Bld) [Mass fraction] 4.5 % Normal 4.0-6.0 [facility] Comment on above: Performed By: #### F ES, GFR, FT3, ADIFF, A1C, CMP, CBC, TSH, ANEU, FT4 #### [place] [address] CBCon 08-18-2024 Erythrocyte distribution width (RBC) [Ratio] 15.1 % Normal 11.5-15.5 [facility] Comment on above: Performed By: #### F ES, GFR, FT3, ADIFF, A1C, CMP, CBC, TSH, ANEU, FT4 #### [place] [address] Hematocrit (Bld) [Volume fraction] 44.2 % Normal 34.0-46.0 [facility] Comment on above: Performed By: #### F ES, GFR, FT3, ADIFF, A1C, CMP, CBC, TSH, ANEU, FT4 #### [place] [address] Hgb 15.4 G/dL Normal 12.0-16.0 [facility] Comment on above: Performed By: #### F ES, GFR, FT3, ADIFF, A1C, CMP, CBC, TSH, ANEU, FT4 #### [place] [address] MCH (RBC) [Entitic mass] 32.1 pg Normal 27.0-33.0 [facility] Comment on above: Performed By: #### F ES, GFR, FT3, ADIFF, A1C, CMP, CBC, TSH, ANEU, FT4 #### [place] [address] MCHC 34.9 G/dL Normal 32.0-36.0 [facility] Comment on above: Performed By: #### F ES, GFR, FT3, ADIFF, A1C, CMP, CBC, TSH, ANEU, FT4 #### [place] [address] MCV (RBC) [Entitic vol] 92.0 fL Normal 80.0-99.0 [facility] Comment on above: Performed By: #### F ES, GFR, FT3, ADIFF, A1C, CMP, CBC, TSH, ANEU, FT4 #### [place] [address] Platelet 134 10 3/mcL Low 150-450 [facility] Comment on above: Performed By: #### F ES, GFR, FT3, ADIFF, A1C, CMP, CBC, TSH, ANEU, FT4 #### [place] [address] Platelet mean volume (Bld) [Entitic vol] 7.1 fL Normal 6.6-10.5 [facility] Comment on above: Performed By: #### F ES, GFR, FT3, ADIFF, A1C, CMP, CBC, TSH, ANEU, FT4 #### [place] [address] RBC 4.80 10 6/mcL Normal 4.10-5.30 [facility] Comment on above: Performed By: #### F ES, GFR, FT3, ADIFF, A1C, CMP, CBC, TSH, ANEU, FT4 #### [address] [address] WBC 7.7 10 3/mcL Normal 4.5-10.8 [facility] Comment on above: Performed By: #### F ES, GFR, FT3, ADIFF, A1C, CMP, CBC, TSH, ANEU, FT4 #### [address] [address] CMPon 08-18-2024 Albumin Level 3.2 G/dL Normal 3.2-4.8 [facility] Comment on above: Performed By: #### F ES, GFR, FT3, ADIFF, A1C, CMP, CBC, TSH, ANEU, FT4 #### [place] [address] Albumin/Globulin [Mass ratio] 0.9 {ratio} Normal 0.9-1.6 [facility] Comment on above: Performed By: #### F ES, GFR, FT3, ADIFF, A1C, CMP, CBC, TSH, ANEU, FT4 #### [address] [address] ALP [Catalytic activity/Vol] 71 U/L Normal 38-126 [facility] Comment on above: Performed By: #### F ES, GFR, FT3, ADIFF, A1C, CMP, CBC, TSH, ANEU, FT4 #### [address] [address] ALT [Catalytic activity/Vol] 18 U/L Normal 10-49 [facility] Comment on above: Performed By: #### F ES, GFR, FT3, ADIFF, A1C, CMP, CBC, TSH, ANEU, FT4 #### [address] [address] AST [Catalytic activity/Vol] 24 U/L Normal 8-34 [facility] Comment on above: Performed By: #### F ES, GFR, FT3, ADIFF, A1C, CMP, CBC, TSH, ANEU, FT4 #### [address] [address] Bili Total 0.80 mg/dL Normal 0.20-1.20 [facility] Comment on above: Result Comment: Use of this assay is not recommended for patients undergoing treatment with eltrombopag due to the potential for falsely elevated results. Performed By: #### F ES, GFR, FT3, ADIFF, A1C, CMP, CBC, TSH, ANEU, FT4 #### [place] [id number] BUN/Creatinine Ratio 13.2 ratio Normal 10.0-22.0 [facility] Comment on above: Performed By: #### F ES, GFR, FT3, ADIFF, A1C, CMP, CBC, TSH, ANEU, FT4 #### [place] [id number] Calcium [Mass/Vol] 9.2 mg/dL Normal 8.7-10.4 [facility] Comment on above: Performed By: #### F ES, GFR, FT3, ADIFF, A1C, CMP, CBC, TSH, ANEU, FT4 #### [place] [id number] Chloride [Moles/Vol] 106 mmol/L Normal 98-110 [facility] Comment on above: Performed By: #### F ES, GFR, FT3, ADIFF, A1C, CMP, CBC, TSH, ANEU, FT4 #### [address] [address] CO2 [Moles/Vol] 32 mmol/L Normal 22-32 [facility] Comment on above: Performed By: #### F ES, GFR, FT3, ADIFF, A1C, CMP, CBC, TSH, ANEU, FT4 #### [place] [id number] Creatinine [Mass/Vol] 0.68 mg/dL Normal 0.50-1.20 [facility] Comment on above: Result Comment: Test ing performed on [employer] analyzer using enzymatic creatinine methodology. Performed By: #### F ES, GFR, FT3, ADIFF, A1C, CMP, CBC, TSH, ANEU, FT4 #### [place] [id number] Electrolyte Balance 8.0 mEq/L Normal 4.0-15.0 [facility] Comment on above: Performed By: #### F ES, GFR, FT3, ADIFF, A1C, CMP, CBC, TSH, ANEU, FT4 #### [address] [address] Globulin 3.5 G/dL Normal 1.5-3.8 [facility] Comment on above: Performed By: #### F ES, GFR, FT3, ADIFF, A1C, CMP, CBC, TSH, ANEU, FT4 #### [address] [address] Glucose [Mass/Vol] 75 mg/dL Normal 70-110 [facility] Comment on above: Performed By: #### F ES, GFR, FT3, ADIFF, A1C, CMP, CBC, TSH, ANEU, FT4 #### [address] [address] Potassium [Moles/Vol] 2.5 mmol/L Critically abnormal 3.5-5.0 [facility] Comment on above: Performed By: #### F ES, GFR, FT3, ADIFF, A1C, CMP, CBC, TSH, ANEU, FT4 #### [address] [address] Sodium [Moles/Vol] 146 mmol/L High 136-145 [facility] Comment on above: Performed By: #### F ES, GFR, FT3, ADIFF, A1C, CMP, CBC, TSH, ANEU, FT4 #### [address] [address] Total Protein 6.7 G/dL Normal 5.7-8.2 [facility] Comment on above: Performed By: #### F ES, GFR, FT3, ADIFF, A1C, CMP, CBC, TSH, ANEU, FT4 #### [address] [address] Urea nitrogen [Mass/Vol] 9.0 mg/dL Normal 8.0-22.0 [facility] Comment on above: Performed By: #### F ES, GFR, FT3, ADIFF, A1C, CMP, CBC, TSH, ANEU, FT4 #### [address] [address] FESon 08-18-2024 Iron [Mass/Vol] 121 ug/dL Normal 50-170 [facility] Comment on above: Performed By: #### F ES, GFR, FT3, ADIFF, A1C, CMP, CBC, TSH, ANEU, FT4 #### [place] [address] Iron Sat 37 % Normal [facility] Comment on above: Performed By: #### F ES, GFR, FT3, ADIFF, A1C, CMP, CBC, TSH, ANEU, FT4 #### [place] [address] TIBC 327 mcg/dL Normal 250-500 [facility] Comment on above: Performed By: #### F ES, GFR, FT3, ADIFF, A1C, CMP, CBC, TSH, ANEU, FT4 #### [place] [address] FT3on 08-18-2024 Free T3 [Mass/Vol] 3.10 pg/mL Normal 2.30-4.20 [facility] Comment on above: Performed By: #### F ES, GFR, FT3, ADIFF, A1C, CMP, CBC, TSH, ANEU, FT4 #### [place] [address] FT4on 08-18-2024 Free T4 [Mass/Vol] 1.43 ng/dL Normal 0.89-1.76 [facility] Comment on above: Result Comment: No te - New Reference Range in effect 20 Performed By: #### F ES, GFR, FT3, ADIFF, A1C, CMP, CBC, TSH, ANEU, FT4 #### [place] [address] LABORATORYOrdered By: SYSTEM SYSTEM on 08-18-2024 Albumin [...] above: Interpretive Data: T esting performed on Expert analyzer using enzymatic creatinine methodology. Electrolyte Balance [...] (S/P/Bld) [Vol rate/Area] ml/min/1.73sqm Invalid Interpretation Code [employer] Chemistry S Comment on above: Interpretive Data: [...] (S/P/Bld) [Vol rate/Area] ml/min/1.73sqm Invalid Interpretation Code [employer] Chemistry S Comment on above: Interpretive Data: [...] Glucose [Mass/Vol] 82 mg/dL Invalid Interpretation Code [employer] Auto Chem SS Comment on above: Interpretive Data: E stimated average glucose (eAG) is a calculated value from Hemoglobin A1C and is billing representative of the average blood glucose level [...] 08-18-2024 TSH 1.378 mIU/mL Normal 0.550-4.78 0 [facility] Comment on above: Performed By: #### F ES, GFR, FT3, ADIFF, A1C, CMP, CBC, TSH, ANEU, FT4 #### [facility] [address] [place] [address] TSHon 07-27-2024 TSH 0.971 mIU/mL Normal 0.550-4.78 0 DILSHAD MASSILLON Comment on above: Performed By: #### T SH ####[place] [address] .Auto Diffon 07-26-2024 Basophil, Absolute 0.0 10 3/mcL Normal 0.0-0.3 RHIANNON MAN MASSILLON Comment on above: Performed By: #### A DIFF, GFR, PRO, CMP, MG, CBC, TROPHS, APTT, MDW, ANEU ####[facility] CenterBuhmimwfy8350 [place], [place] [address] Basophils/100 WBC (Bld) 0.6 % Normal 0.0-2.5 DILSHAD MASSILLON Comment on above: Performed By: #### A DIFF, GFR, PRO, CMP, MG, CBC, TROPHS, APTT, MDW, ANEU ####[facility] [place], [place] [address] Eosinophil, Absolute 0.1 10 3/mcL Normal 0.0-0.7 AU LTMAN MASSILLON Comment on above: Performed By: #### A DIFF, GFR, PRO, CMP, MG, CBC, TROPHS, APTT, MDW, ANEU ####Dilshad Mwxaphdld3860 [place], [place] [address] Eosinophils/100 WBC (Bld) 1.0 % Normal 0.0-6.0 DILSHAD MASSILLON Comment on above: Performed By: #### A DIFF, GFR, PRO, CMP, MG, CBC, TROPHS, APTT, MDW, ANEU ####Dilshad Fwjvcpero3758 [place], [place] [address] Lymphocyte, Absolute 2.8 10 3/mcL Normal 0.9-4.3 AU LTMAN MASSILLON Comment on above: Performed By: #### A DIFF, GFR, PRO, CMP, MG, CBC, TROPHS, APTT, MDW, ANEU ####Dilshad Lwzmnnskd8502 [place], [place] [address] Lymphocytes/100 WBC (Bld) 42.1 % High 20.0-40.0 DILSHAD MASSILLON Comment on above: Performed By: #### A DIFF, GFR, PRO, CMP, MG, CBC, TROPHS, APTT, MDW, ANEU ####Dilshad Stycdpnal3420 [place], [place] [address] Monocyte, Absolute 0.7 10 3/mcL Normal 0.1-1.4 RHIANNON MAN MASSILLON Comment on above: Performed By: #### A DIFF, GFR, PRO, CMP, MG, CBC, TROPHS, APTT, MDW, ANEU ####Dilshad Drfcllobm9179 [place], [place] [address] Monocytes/100 WBC (Bld) 10.3 % Normal 2.0-13.0 DILSHAD MASSILLON Comment on above: Performed By: #### A DIFF, GFR, PRO, CMP, MG, CBC, TROPHS, APTT, MDW, ANEU ####Dilshad Cudclisrm3872 [place], [place] [address] Neutrophils/100 WBC (Bld) 46.0 % Low 50.0-75.0 DILSHAD MASSILLON Comment on above: Performed By: #### A DIFF, GFR, PRO, CMP, MG, CBC, TROPHS, APTT, MDW, ANEU ####Dilshad Puoymwqmv8821 [place], [place] [address] .GFRon 07-26-2024 GFR 138 ml/min/1.73sqm Normal DILSHAD [...] Performed By: #### G FR, BMP ####Dilshad Exzometnr7518 [place], [place] [address] GFR Non- 114 ml/min/1.73sqm Normal DILSHAD MASSILLON [...] Performed By: #### G FR, BMP ####Dilshad Oyxklpwag5668 [place], [place] [address] GFR 91 ml/min/1.73sqm Normal DILSHAD MASSILLON Comment [...] CBC, GFR, ANEU #### Dilshad Ben [address] [place], [place] [address] GFR Non- 75 ml/min/1.73sqm Normal DILSHAD GUAN [...] CBC, GFR, ANEU #### Dilshad Ben [address] [place], [place] [address] .MDWon 07-26-2024 Monocyte Distribution Width 15.91 Normal 0.00-20.00 DILSHAD GUAN Comment on above: Result Comment: For ED adult patients suspected of sepsis, MDW<=20.0 does not rule out sepsis or risk of sepsis Performed By: #### A DIFF, GFR, PRO, CMP, MG, CBC, TROPHS, APTT, MDW, ANEU ####Dilshad JohnsonOqhmoaxoi0840 [place] [address] .NEUABSon 07-26-2024 Neutrophil, Absolute 3.1 10 3/mcL Normal 2.3-8.1 AU LTMAN MASSILLON Comment on above: Performed By: #### A DIFF, GFR, PRO, CMP, MG, CBC, TROPHS, APTT, MDW, ANEU ####Dilshad Ensahzrfi2612 [place], [place] [address] APTTon 07-26-2024 aPTT Coag (Bld) [Time] 32.0 s Normal 25.0-35.0 DILSHAD MASSILLON Comment on above: Performed By: #### C MP, ADIFF, MDW, MG, CBC, GFR, ANEU #### Dilshad Shipman [address] [place] [phone] BMPon 07-26-2024 BUN/Creatinine Ratio 19 ratio Normal 7-27 RHIANNON MAN MASSILLON Comment on above: Performed By: #### G , BMP ####Dilshad Gvjodrehf4332 [place], [place] [address] Calcium [Mass/Vol] 8.1 mg/dL Low 8.4-10.2 AULTMA N MASSILLON Comment on above: Performed By: #### G , BMP ####Dilshad Yjpthpnkb2358 [place] [phone] Chloride [Moles/Vol] 107 mmol/L Normal 98-107 RHIANNON MAN MASSILLON Comment on above: Performed By: #### G , BMP ####Dilshad Xxwoiywlx0547 [place], [place] [address] CO2 [Moles/Vol] 32 mmol/L High 22-29 DILSHAD MASSILLON Comment on above: Performed By: #### G FR, BMP ####Dilshad Lsahygsuc2629 [place], [place] [address] Creatinine [Mass/Vol] 0.57 mg/dL Normal 0.55-1.02 AUL TMAN MASSILLON Comment on above: Result Comment: Test ing performed on Siemens Dimension EXL analyzer using a modified kinetic Marky technique. Performed By: #### G FR, BMP ####Dilshad Wtmwzhexj6777 [place], [place] [address] Electrolyte Balance 9.0 mEq/L Normal 4.0-15.0 AULTM AN MASSILLON Comment on above: Performed By: #### Nani TREVINO, BMP ####Dilshad Ben[address] [place], [place] [address] Glucose [Mass/Vol] 98 mg/dL Normal 70-105 AULTMA N MASSILLON Comment on above: Performed By: #### G , BMP ####Dilshad Ben20[address] [place], [place] [address] Potassium [Moles/Vol] 3.0 mmol/L Low 3.5-5.1 AUL TMAN MASSILLO Comment on above: Performed By: #### Nani TREVINO, BMP ####Dilshad Ben20[address] [place] [phone] Sodium [Moles/Vol] 148 mmol/L High 136-145 AULTMA N MASSILLON Comment on above: Performed By: #### Nani TREVINO, BMP ####Dilshad Ben[address] [place], [place] [address] Urea nitrogen [Mass/Vol] 11 mg/dL Normal 7-18 DILSHAD MASSILLON Comment on above: Performed By: #### Nani TREVINO, BMP ####Dilshad Ben[address] [place], [place] [address] CBCon 07-26-2024 Erythrocyte distribution width (RBC) [Ratio] 14.3 % Normal 11.5-15.5 DILSHAD MASSILLON Comment on above: Performed By: #### A DIFF, GFR, PRO, CMP, MG, CBC, TROPHS, APTT, MDW, ANEU ####Dilshad Ben[address] [place], [place] [address] Hematocrit (Bld) [Volume fraction] 41.3 % Normal 34.0-46.0 DILSHAD MASSILLON Comment on above: Performed By: #### A DIFF, GFR, PRO, CMP, MG, CBC, TROPHS, APTT, MDW, ANEU ####Dilshad JohnsonInaspbbjy5389 [place], [place] [address] Hgb 14.0 G/dL Normal 12.0-16.0 DILSHAD MASSILLON Comment on above: Performed By: #### A DIFF, GFR, PRO, CMP, MG, CBC, TROPHS, APTT, MDW, ANEU ####Dilshad JohnsonBlblifosg4232 [place] [address] MCH (RBC) [Entitic mass] 31.4 pg Normal 27.0-33.0 DILSHAD MASSILLON Comment on above: Performed By: #### A DIFF, GFR, PRO, CMP, MG, CBC, TROPHS, APTT, MDW, ANEU ####Dilshad Ummijusyg3502 [place] [address] MCHC 33.9 G/dL Normal 32.0-36.0 DILSHAD MASSILLON Comment on above: Performed By: #### A DIFF, GFR, PRO, CMP, MG, CBC, TROPHS, APTT, MDW, ANEU ####Dilshad Ben[address] [place] [address] MCV (RBC) [Entitic vol] 92.6 fL Normal 80.0-99.0 DILSHAD MASSILLON Comment on above: Performed By: #### A DIFF, GFR, PRO, CMP, MG, CBC, TROPHS, APTT, MDW, ANEU ####Dilshad JohnsonOhsjkhrol7734 [place] [address] Platelet 132 10 3/mcL Low 150-450 DILSHAD MASSILLON Comment on above: Performed By: #### A DIFF, GFR, PRO, CMP, MG, CBC, TROPHS, APTT, MDW, ANEU ####Dilshad Flznipawc2397 [place] [phone] Platelet mean volume (Bld) [Entitic vol] 7.2 fL Normal 6.6-10.5 DILSHAD MASSILLON Comment on above: Performed By: #### A DIFF, GFR, PRO, CMP, MG, CBC, TROPHS, APTT, MDW, ANEU ####Dilshad Hwmperljt7706 [place] [address] RBC 4.46 10 6/mcL Normal 4.10-5.30 DILSHAD MASSILLON Comment on above: Performed By: #### A DIFF, GFR, PRO, CMP, MG, CBC, TROPHS, APTT, MDW, ANEU ####Dilshad Trcuuzyll8270 [place], [place] [address] WBC 6.7 10 3/mcL Normal 4.5-10.8 DILSHAD MASSILLON Comment on above: Performed By: #### A DIFF, GFR, PRO, CMP, MG, CBC, TROPHS, APTT, MDW, ANEU ####Dilshad Gnoxvlobb2214 [place], [place] [address] CMPon 07-26-2024 Albumin Level 2.8 G/dL Low 3.5-5.0 DILSHAD MASSILLON Comment on above: Performed By: #### C MP, ADIFF, MDW, MG, CBC, GFR, ANEU #### Dilshad Johnsonillon [address] [place], [place] [address] Albumin/Globulin [Mass ratio] 0.9 {ratio} Low 1.1-2.5 [facility] Comment on above: Performed By: #### C MP, ADIFF, MDW, MG, CBC, GFR, ANEU #### Dilshadvazquze JohnsonShipman [address] [place], [place] [address] ALP [Catalytic activity/Vol] 62 U/L Normal 40-135 [facility]AD [facility] Comment on above: Performed By: #### C MP, ADIFF, MDW, MG, CBC, GFR, ANEU #### Dilshad Johnsonillon [address] [place], [place] [address] ALT [Catalytic activity/Vol] 19 U/L Normal 14-59 DILSHAD MASSILLO Comment on above: Performed By: #### C MP, ADIFF, MDW, MG, CBC, GFR, ANEU #### Dilshadvazquez JohnsonShipman [address] [place], [place] [address] AST [Catalytic activity/Vol] 12 U/L Normal 10-40 DILSHAD MASSILLO Comment on above: Performed By: #### C MP, ADIFF, MDW, MG, CBC, GFR, ANEU #### Dilshad Shipman [address] [place], [place] [address] Bili Total 0.5 mg/dL Normal 0.2-1.0 DILSHAD MASSILLON Comment on above: Result Comment: Use of this assay is not recommended for patients undergoing treatment with eltrombopag due to the potential for falsely elevated results. Performed By: #### C MP, ADIFF, MDW, MG, CBC, GFR, ANEU #### Dilshad Shipman [address] [place], [place] [address] BUN/Creatinine Ratio 13 ratio Normal 7-27 RHIANNON MAN MASSILLON Comment on above: Performed By: #### C MP, ADIFF, MDW, MG, CBC, GFR, ANEU #### [facility] [address] [place], [place] [address] Calcium [Mass/Vol] 8.5 mg/dL Normal 8.4-10.2 AULTMA N MASSILLON Comment on above: Performed By: #### C MP, ADIFF, MDW, MG, CBC, GFR, ANEU #### [facility] [address] [place], [place] [address] Chloride [Moles/Vol] 107 mmol/L Normal 98-107 RHIANNON MAN MASSILLON Comment on above: Performed By: #### C MP, ADIFF, MDW, MG, CBC, GFR, ANEU #### Dilshad Shipman [address] [place], [place] [address] CO2 [Moles/Vol] 32 mmol/L High 22-29 DILSHAD MASSILLO Comment on above: Performed By: #### C MP, ADIFF, MDW, MG, CBC, GFR, ANEU #### [facility] [address] [place], [place] [address] Creatinine [Mass/Vol] 0.82 mg/dL Normal 0.55-1.02 AUL TMAN MASSILLO Comment on above: Result Comment: Test ing performed on Siemens Dimension EXL analyzer using a modified kinetic Marky technique. Performed By: #### C MP, ADIFF, MDW, MG, CBC, GFR, ANEU #### Dilshad Johnsonillon [address] [place], [place] [address] Electrolyte Balance 10.0 mEq/L Normal 4.0-15.0 AULTM AN MASSILLON Comment on above: Performed By: #### C ILIR SNOWDEN MDW, MG, CBC, GFR, ANEU #### Dilshad Shipman [address] [place], [place] [address] Globulin 3.0 G/dL Normal DILSHAD MASSILLON Comment on above: Performed By: #### C ISI, ILIR, W, MG, CBC, GFR, ANEU #### Dilshadvazquez JohnsonShipman [address] [place], [place] [address] Glucose [Mass/Vol] 123 mg/dL High 70-105 AULTMA N MASSILLON Comment on above: Performed By: #### C ISI, ILIR, MDW, MG, CBC, GFR, ANEU #### Dilshadvazquez JohnsonShipman [address] [place], [place] [address] Potassium [Moles/Vol] 2.6 mmol/L Critically abnormal 3.5-5.1 DILSHAD MASSILLON Comment on above: Performed By: #### C ILIR SNOWDEN MDW, MG, CBC, GFR, ANEU #### Dilshad Johnson[address] [place], [place] [address] Sodium [Moles/Vol] 149 mmol/L High 136-145 AULTMA N MASSILLON Comment on above: Performed By: #### C ILIR SNOWDEN MDW, MG, CBC, GFR, ANEU #### Dilshad Johnsonillon [address] [place], [place] [address] Total Protein 5.8 G/dL Low 6.4-8.2 DILSHAD MASSILLON Comment on above: Performed By: #### C ILIR SNOWDEN MDW, MG, CBC, GFR, ANEU #### Dilshad Shipman [address] [place], [place] [address] Urea nitrogen [Mass/Vol] 11 mg/dL Normal 7-18 DILSHAD MASSILLON Comment on above: Performed By: #### C ILIR SNOWDEN MDW, MG, CBC, GFR, ANEU #### Dilshadvazquez JohnsonShipman [address] [place], [place] [address] MGon 07-26-2024 Magnesium [Mass/Vol] 2.0 mg/dL Normal 1.8-2.4 RHIANNON MAN MASSILLON Comment on above: Performed By: #### C LIIR SNOWDEN MDW, MG, CBC, GFR, ANEU #### Dilshad Ben [address] [place], [place] [address] PROon 07-26-2024 PT Coag (PPP) [Time] 12.7 s Normal 9.0-14.4 [facility] Comment on above: Performed By: #### C ISI, EDD HAZEL, MG, CBC, GFR, ANEU #### Dilshad Ben [address] [place], [place] [address] PT International Ratio 1.1 Normal [facility] Comment on above: Result Comment: [employer] [place] [employer] (CHEST, 1992, 102:312S-25S) recommended therapeutic range for oral anticoagulant therapy is: LOW RISK: Prophylaxis of venous thrombosis INR: 2.0-3.0 Treatment of pulmonary embolism 2.0-3.0 Prevention of systemic embolism 2.0-3.0 HIGH RISK: Mechanical prosthetic valves 2.5-3.5 Performed By: #### C ILIR SNOWDEN MDW, MG, CBC, GFR, ANEU #### Dilshad Ben [address] [place], [place] [address] TROPHSon 07-26-2024 High Sensitivity Troponin I 6 ng/L Normal 0-51 [facility] Comment on above: Result Comment: High Sensitive Troponin I Reference Ranges: Female: 0-51 ng/L Male: 0-76 ng/L Testing performed on Dimension EXL using a homogeneous sandwich chemiluminescent immunoassay based on [email or web address] technology. Performed By: #### T FARA ####Dilshad JohnsonHnfbtwmli0654 [place], [place] [address] High Sensitivity Troponin I 6 ng/L Normal 0-51 [facility] Comment on above: Result Comment: High Sensitive Troponin I Reference Ranges: Female: 0-51 ng/L Male: 0-76 ng/L Testing performed on Dimension EXL using a homogeneous sandwich chemiluminescent immunoassay based on comment.com technology. Performed By: #### C ISI, ILIR, EDD, MG, CBC, GFR, ANEU #### Dilshad Ben [address] [place], [place] [address] UAon 07-26-2024 Color (U) Yellow Normal DILSHAD MASSILLON Comment on above: Performed By: #### U AMIC, UA ####Dilshad Jomseqoqb2811 [place] [address] Glucose (U) [Mass/Vol] Negative Normal Negative DILSHAD MASSILLON Comment on above: Performed By: #### U AMIC, UA ####Dilshad Jpfrmovnn3489 [place] [address] Ketones Ql (U) Trace Normal Neg-Trace DILSHAD MASSILLON Comment on above: Performed By: #### U AMIC, UA ####Dilshad Gipbeqdpz8756 [place] [address] UA Appear Cloudy Abnormal DILSHAD MASSILLON Comment on above: Performed By: #### U AMIC, UA ####Dilshad Jzyvztzap0358 [place] [address] UA Blood Trace Normal Neg-Trace DILSHAD MASSILLON Comment on above: Performed By: #### U AMIC, UA ####Dilshad Aghkodlus6305 [place] [address] UA Leuk Est Negative Normal Negative DILSHAD MASSILLON Comment on above: Performed By: #### U AMIC, UA ####Dilshad Nrzndqwiv7952 [place] [address] UA Nitrite Negative Normal Negative DILSHAD MASSILLON Comment on above: Performed By: #### U AMIC, UA ####Dilshad Irmxwuncn1731 [place] [address] UA pH 7.0 Normal 5.0 - 8.0 DILSHAD MASSILLON Comment on above: Performed By: #### U AMIC, UA ####Dilshad Myusdehda3111 [place] [address] UA Protein Trace Normal Negative DILSHAD MASSILLON Comment on above: Performed By: #### U AMIC, UA ####Dilshad Wlwmcumhv1530 [place] [address] UA Spec Grav 1.020 Normal DILSHAD MASSILLON Comment on above: Performed By: #### U AMIC, UA ####Dilshad Ujqdbwczn2738 [place] [address] UA Specimen Type Void Normal DILSHAD MASSILLON Comment on above: Performed By: #### U AMIC, UA ####Dilshad Ztqwohffq1845 [place] [address] UA Urobilinogen 4.0 E.U./dL Abnormal DILSHAD MASSILLON Comment on above: Performed By: #### U AMIC, UA ####Dilshad Pynpombyn3929 [place] [address] Urobilinogen (U) [Mass/Vol] Negative Normal Neg-Trace DILSHAD MASSILLON Comment on above: Performed By: #### U AMIC, UA ####Dilshad Gyhfqoknl1814 [place] [address] UAMICon 07-26-2024 UA Amorphus 2+ /hpf Normal DILSHAD MASSILLON Comment on above: Performed By: #### U AMIC, UA ####Dilshad Iynvcpafi2400 [place] [address] UA Bacteria Trace Abnormal Negative DILSHAD MASSILLON Comment on above: Performed By: #### U AMIC, UA ####Dilshad Wetjiazro6806 [place] [address] UA Mucous Trace Normal DILSHAD MASSILLON Comment on above: Performed By: #### U AMIC, UA ####Dilshad Eahfceyig8332 [place] [address] UA RBC 5-10 Abnormal 0-2 DILSHAD MASSILLON Comment on above: Performed By: #### U AMIC, UA ####Dilshad Soxczmpsd5330 [place] [address] UA Squam Epithelial 0-2 Normal 0-20 AULTM AN MASSILLON Comment on above: Performed By: #### U AMIC, UA ####Dilshad Rduvlxyam7563 [place] [address] UA WBC 3-5 Normal 0-5 DILSHAD MASSILLON Comment on above: Performed By: #### U AMIC, UA ####Dilshad Ben[address] [place], [place] [address] XR CHEST 2 VIEWSon 5 XR CHEST [...] DILSHAD GUAN 36on 06-04-2024 36 Referral closed [facility] 36 Name of Caller: Nate bender Contact Reason for Appointment: Barbara called because they received a letter stating there was a missed appointment. She said they called prior and after. Sharla has her own ENT. Please make note she has another provider for ENT and will not be making another appointment. Please advise. Office Name: [facility] 36on 05-07-2024 36 Name of caller: Nate bender Contact phone number: [phone] Relationship to Patient: Caregiver - Alpha Personal Care Provider: Lisette Jesus PA-C Practice: [facility] ENT Chief Complaint/Reason for Call: Annie called in regarding Sharla's 05/01/24 3:00 PM missed new patient appointment, and states that Sharla had an appointment with Dr. Peggy Howard at [facility] on 04/11 and did not wish to reschedule with [facility] MICHELLE Gonsalves at this time. Please be advised. Best time of day caller can be reached: Any Patient advised that office/PCP has 24-48 business hours to return their call: Yes Normal [facility] Bacteria Ur Culton 4 Bacteria identified Cx Nom (U) CULTURE, URINE: <10,000 CFU/ml Normal Urogenital Hailey Normal [facility] Comment on above: Performed By: #### 6 30-4 ####[facility] LABORATORYCLIA [id number] [place] [address] [place] CNOVon 04-09-2024 CNOV Normal [facility] HCG ( test) Ql (U)o n 04-09-2024 Interpretation and review of laboratory results Normal [facility] HCG Preg Ur Qlon 04-09-2024 HCG ( test) Ql (U) Negative Normal Negative [facility] Comment on above: Order Comment: Speci men Type: URINE SPECIMENOrdering Facility: [facility] Address: [address] [place] [address] Result Comment: This test is intended to aid in the early detection of . Very dilute urine samples, as indicated by a low specific gravity, may not contain billing representative levels of hCG. This test detects [...] . Performed By: #### U A, 2106-3 ####[facility] LABCLIA [id number] [place] [address] [place] HCG, QUALITATIVE, URINE PREG NANCYon 04-09-2024 HCG ( test) Ql (U) Negative Negative [facility] Comment on above: This test is intende d to aid in the early detection of . Very dilute urine samples, as indicated by a low specific gravity, may not contain billing representative levels of hCG. This test detects [...] on 04-09-2024 Bilirubin Ql (U) Negative Negative [facility] Clarity (Unsp spec) Clear Clear [facility] Color (U) Straw Yellow [facility] Glucose Test strip (U) [Mass/Vol] Negative Negative [facility] Hemoglobin Ql (U) Negative Negative [facility] Interpretation and review of laboratory results Normal [facility] Ketones Ql (U) Negative Negative [facility] Leukocyte esterase Test strip Ql (U) Negative Negative [facility] Nitrite Ql (U) Negative Negative [facility] pH (U) 6.0 [pH] 5.0 - 8.0 [facility] Protein (U) [Mass/Vol] Negative Negative [facility] Specific gravity (U) [Rel density] 1.005 1.005 - 1.030 [facility] Urobilinogen Ql (U) Negative Negative [facility] URINALYSIS, DIPSTICK ONLYon 04-09-2024 Bilirubin Ql (U) Negative Normal Negative [facility] Comment on above: Order Comment: Speci men Type: URINE SPECIMENOrdering Facility: [facility] Address: [address] [place] [address] Performed By: #### U 2105-09 ####[facility] LABIA [id number] [address] Clarity (Unsp spec) Clear Normal Clear [facility] Comment on above: Order Comment: Speci men Type: URINE SPECIMENOrdering Facility: [facility] Address: [address] [place] [address] Performed By: #### U 2105-09 ####[facility] LABCLIA [id number] [address] [place] Color (U) Straw Normal Yellow [facility] Comment on above: Order Comment: Speci men Type: URINE SPECIMENOrdering Facility: [facility] Address: [address] [place] [address] Performed By: #### U A, 2105-09 ####[facility] LABCLIA [id number] [address] Glucose Test strip (U) [Mass/Vol] Negative Normal Negative [facility] Comment on above: Order Comment: Speci men Type: URINE SPECIMENOrdering Facility: [facility] Address: [address] [place] [address] Performed By: #### U A, 2105-09 ####[facility] LABCLIA [id number] [address] Hemoglobin Ql (U) Negative Normal Negative [facility] Comment on above: Order Comment: Speci men Type: URINE SPECIMENOrdering Facility: [facility] Address: [address] [place] [address] Performed By: #### U A, 2105-09 ####[facility] LABCLIA [id number] [address] Ketones Ql (U) Negative Normal Negative [facility] Comment on above: Order Comment: Speci men Type: URINE SPECIMENOrdering Facility: [facility] Address: [address] [place] [address] Performed By: #### U A, 2105-09 ####[facility] LABCLIA [id number] [address] Leukocyte esterase Test strip Ql (U) Negative Normal Negative [facility] Comment on above: Order Comment: Speci men Type: URINE SPECIMENOrdering Facility: [facility] Address: [address] [place] [address] Performed By: #### U A, 2105-09 ####[facility] LABCLIA [id number] [address] [place] Nitrite Ql (U) Negative Normal Negative [facility] Comment on above: Order Comment: Speci men Type: URINE SPECIMENOrdering Facility: [facility] Address: [address] [place] [address] Performed By: #### U A, 2105-09 ####[facility] LABCLIA [id number] [address] [place] pH (U) 6.0 [pH] Normal 5.0-8.0 [facility] Comment on above: Order Comment: Speci men Type: URINE SPECIMENOrdering Facility: [facility] Address: [address] [place] [address] Performed By: #### U A, 2105-09 ####TOMEKAOscar AYDEE [facility] LABCLIA [id number] [address] Protein (U) [Mass/Vol] Negative Normal Negative [facility] Comment on above: Order Comment: Speci men Type: URINE SPECIMENOrdering Facility: [facility] Address: [address] [place] [address] Performed By: #### U A, 2105-09 ####JANNY BAJWA [facility] LABCLIA [id number] [address] Specific gravity (U) [Rel density] 1.005 Normal 1.005-1.03 0 [facility] Comment on above: Order Comment: Speci men Type: URINE SPECIMENOrdering Facility: [facility] Address: [address] [place] [address] Performed By: #### U A, 2105-09 ####JANNY BAJWA [place] LABCLIA [id number] [address] Urobilinogen Ql (U) Negative Normal Negative [facility] Comment on above: Order Comment: Speci men Type: URINE SPECIMENOrdering Facility: [facility] Address: [address] [place] [address] Performed By: #### U A, 2105-09 ####TOMEK[facility] [place] LABCLIA [id number] [place] [address] [place] CBC (HEMOGRAM)on 03-26-2024 Erythrocyte distribution width (RBC) [Ratio] 13.9 % Normal 11.5-15.0 [facility] Comment on above: Performed By: #### L AB294 ####Worsted Winder: LOCO CRUZ ([id number])[facility] [employer] ([facility])[address] [place] [address] Hematocrit (Bld) [Volume fraction] 44.8 % Normal 35.0-47.0 [facility] Comment on above: Performed By: #### L AB294 ####Worsted Winder: LOCO CRUZ ([id number])[facility] [employer] ([facility])[address] Hemoglobin (Bld) [Mass/Vol] 15.3 g/dL Normal 11.7-16.0 [facility] Comment on above: Performed By: #### L AB294 ####Worsted Winder: LOCO CRUZ ([id number])[facility] [employer] ([facility])[address] MCH (RBC) [Entitic mass] 31.9 pg Normal 26.0-34.0 [facility] Comment on above: Performed By: #### L AB294 ####Worsted Winder: LOCO CRUZ ([id number])[facility] [employer] ([facility])[address] MCHC 34.2 % Normal 30.5-36.0 [facility] Comment on above: Performed By: #### L AB294 ####Worsted Winder: LOCO CRUZ ([id number])[facility] [employer] ([facility])[address] [place] [id number] [facility] MCV (RBC) [Entitic vol] 93.3 fL Normal 77.0-99.0 [facility] Comment on above: Performed By: #### L AB294 ####Worsted Winder: LOCO CRUZ ([id number])[facility]ENTER[facility] ([facility])[address] Platelet mean volume (Bld) [Entitic vol] 9.2 fL Normal 9.0-12.7 [facility] Comment on above: Result Comment: MPV is a calculated measurement using platelet volume ratio Performed By: #### L AB294 ####Worsted Winder: LOCO CRUZ ([id number])[facility]ITALBe[facility] BioinformaticsS ([facility])[address] Platelets (Bld) [#/Vol] 166 10*3/uL Normal 140-440 [facility] Comment on above: Performed By: #### L AB294 ####Worsted Winder: LOCO CRUZ ([id number])[facility]ENTER[facility]S ([facility])[address] RBC (Bld) [#/Vol] 4.80 10*6/uL Normal 3.80-5.20 [facility] Comment on above: Performed By: #### L AB294 ####Worsted Winder: LOCO CRUZ ([id number])[facility]ITAL[facility] ([facility])[address] WBC (Bld) [#/Vol] 7.7 10*3/uL Normal 3.6-10.7 [facility] Comment on above: Performed By: #### L AB294 ####Worsted Winder: LOCO CRUZ ([id number])[facility]ENTER[facility] ([facility])[address] CBC panel Auto (Bld)on 03-26 Erythrocyte distribution width (RBC) [Ratio] 13.9 % 11.5 - 15.0 % [facility] Hematocrit (Bld) [Volume fraction] 44.8 % 35.0 - 47.0 % [facility] Hemoglobin (Bld) [Mass/Vol] 15.3 g/dL 11.7 - 16.0 g/dL [facility] Interpretation and review of laboratory results Normal [facility] MCH (RBC) [Entitic mass] 31.9 pg 26.0 - 34.0 pg [facility] MCHC (RBC) [Mass/Vol] 34.2 % 30.5 - 36.0 % [facility] MCV (RBC) [Entitic vol] 93.3 fL 77.0 - 99.0 fL [facility] Platelet mean volume (Bld) [Entitic vol] 9.2 fL 9.0 - 12.7 fL [facility] Comment on above: MPV is a calculated measurement using platelet volume ratio Platelets (Bld) [#/Vol] 166 10*3/uL 140 - 440 10*3/uL [facility] RBC (Bld) [#/Vol] 4.80 10*6/uL 3.80 - 5.20 10*6/uL [facility] WBC (Bld) [#/Vol] 7.7 10*3/uL 3.6 - 10.7 10*3/uL [facility] COMPLETE URINALYSISon 2023 BACTERIA (#/HPF) IN URINE Negative Normal Negative [facility] Comment on above: Performed By: #### L AB347 ####Worsted Winder: LOCO CRUZ ([id number])[facility] ([facility])[address] BILIRUBIN, TOTAL PRESENCE IN URINE Negative Normal Negative [facility] Comment on above: Performed By: #### L AB347 ####Worsted Winder: LOCO CRUZ ([id number])[facility] ([facility])[address] Clarity (U) Clear Normal Clear [facility] Comment on above: Performed By: #### L AB347 ####Worsted Winder: LOCO CRUZ ([id number])[facility] ([facility])[address] Color (U) Dark Yellow Abnormal Lt. Yellow [facility] Comment on above: Performed By: #### L AB347 ####Worsted Winder: LOCO CRUZ ([id number])[facility]USA [facility] ([facility])[address] [place] [address] [place] GLUCOSE (MG/DL) IN URINE Normal Normal Normal (<70) [facility] Comment on above: Performed By: #### L AB347 ####Worsted Winder: LOCO CRUZ ([id number])[facility]AMPUSA [facility] ([facility])[address] HEMOGLOBIN PRESENCE IN URINE Negative Normal Negative [facility] Comment on above: Performed By: #### L AB347 ####Worsted Winder: LOCO CRUZ ([id number])[facility] ([facility])[address] Ketones Ql (U) 20 mg/dL Abnormal Negative [facility] Comment on above: Performed By: #### L AB347 ####Worsted Winder: LOCO CRUZ ([id number])[facility] ([facility])[address] [place] [address] [facility] LEUKOCYTE ESTERASE PRESENCE IN URINE BY TEST STRIP Negative Normal Negative [facility] Comment on above: Performed By: #### L AB347 ####Worsted Winder: LOCO CRUZ ([id number])[facility] ([facility])[address] [place] [address] [place] MUCUS (#/LPF) IN URINE SEDIMENT Moderate Abnormal Negative [facility] Comment on above: Performed By: #### L AB347 ####Worsted Winder: LOCO CRUZ ([id number])[facility] ([facility])[address] [place] [address] [place] NITRITE PRESENCE IN URINE Negative Normal Negative [facility] Comment on above: Performed By: #### L AB347 ####Worsted Winder: LOCO CRUZ ([id number])[facility]AMPUSA [facility] ([facility])[address] pH (U) 6.0 [pH] Normal 5.0-8.0 [facility] Comment on above: Performed By: #### L AB347 ####Worsted Winder: LOCO CRUZ ([id number])[facility]AMPUSA [facility] ([facility])[address] Protein (U) [Mass/Vol] 30 mg/dL Abnormal Negative [facility] Comment on above: Performed By: #### L AB347 ####Worsted Winder: LOCO CRUZ ([id number])[facility]AMPUSA [facility] ([facility])[address] RBC (#/HPF) IN URINE SEDIMENT 0-2 Normal 0-2 [facility] Comment on above: Performed By: #### L AB347 ####Worsted Winder: LOCO CRUZ ([id number])[facility] ([facility])[address] Specific gravity (U) [Rel density] 1.035 High 1.005-1.03 0 [facility] Comment on above: Performed By: #### L AB347 ####Worsted Winder: LOCO CRUZ ([id number])[facility] ([facility])[address] Specimen volume (U) 12 mL Normal [facility] Comment on above: Performed By: #### L AB347 ####Worsted Winder: LOCO CRUZ ([id number])[facility] ([facility])[address] SQUAMOUS EPITHELIAL CELLS (#/HPF) IN URINE SEDIMENT 3-5 Normal 3-5 [facility] Comment on above: Performed By: #### L AB347 ####Worsted Winder: LOCO CRUZ ([id number])[facility] ([facility])[address] UROBILINOGEN (MG/DL) IN URINE 3 mg/dL Abnormal Normal (0-1) [facility] Comment on above: Performed By: #### L AB347 ####Worsted Winder: LOCO CRUZ ([id number])[facility] ([facility])[address] WBC (LEUKOCYTE) (#/HPF) IN URINE SEDIMENT 3-5 Normal 0-5 [facility] Comment on above: Performed By: #### L AB347 ####Worsted Winder: LOCO CRUZ ([id number])[facility] ([facility])[address] COMPREHENSIVE METABOLIC PANE Duong 03-26-2024 Albumin [Mass/Vol] 4.0 g/dL Normal 3.5-5.0 [facility] Comment on above: Performed By: #### L AB17, MSM906, LAB99, VXU995, DOE768 #### Worsted Winder: LOCO CRUZ ([id number]) [facility] ([facility]) [address] ALP [Catalytic activity/Vol] 95 U/L Normal 38-126 [facility] Comment on above: Performed By: #### L AB17, PID132, LAB99, IAR432, NON721 #### Worsted Winder: LOCO CRUZ ([id number]) [facility] ([facility]) [address] [place] [address] [place] ALT [Catalytic activity/Vol] 55 U/L High 0-34 [facility] Comment on above: Performed By: #### L AB17, FHI031, LAB99, ZUE340, ACY178 #### Worsted Winder: LOCO CRUZ ([id number]) [facility]AMPUSA [facility] ([facility]) [address] [place] [address] [facility] Anion gap [Moles/Vol] 9 mmol/L Normal 3-13 [facility] Comment on above: Performed By: #### L AB17, SMH679, LAB99, HZY468, HWF172 #### Worsted Winder: LOCO CRUZ ([id number]) [facility] ([facility]) [address] [place] [id number] AST [Catalytic activity/Vol] 99 U/L High 15-46 [facility] Comment on above: Performed By: #### L AB17, MEL381, LAB99, MNB579, ARF293 #### Worsted Winder: LOCO CRUZ ([id number]) [facility] ([facility]) [address] [place] [id number] [facility] Bilirubin [Mass/Vol] 1.2 mg/dL Normal 0.2-1.3 [facility] Comment on above: Performed By: #### L AB17, RCJ678, LAB99, JOJ890, NYG631 #### Worsted Winder: LOCO CRUZ ([id number]) [facility] ([facility]) [address] Calcium [Mass/Vol] 9.2 mg/dL Normal 8.4-10.4 [facility] Comment on above: Performed By: #### L AB17, CWQ614, LAB99, PIH099, ZGL409 #### Worsted Winder: LOCO CRUZ ([id number]) [facility] ([facility]) [address] [place] [address] [place] Chloride [Moles/Vol] 105 mmol/L Normal 98-107 [facility] Comment on above: Performed By: #### L AB17, RME324, LAB99, VOO359, HVT873 #### Worsted Winder: LOCO CRUZ ([id number]) [facility] ([facility]) [address] [place] [address] [facility] CO2 [Moles/Vol] 25 mmol/L Normal 22-30 [facility] Comment on above: Performed By: #### L AB17, XCM613, LAB99, MQH238, RIK282 #### Worsted Winder: LOCO CRUZ ([id number]) [facility] ([facility]) [address] [place] [id number] [facility] Creatinine [Mass/Vol] 0.78 mg/dL Normal 0.52-1.04 [facility] Comment on above: Performed By: #### L AB17, WNG570, LAB99, NGJ126, LBU948 #### Worsted Winder: LOCO CRUZ ([id number]) [facility] ([facility]) [address] GLOMERULAR FILTRATION RATE ML/MIN/1.73 SQ M.PREDICTED >90.0 Normal >60.0 [facility] Comment on above: Result Comment: Calc ulation based on the Chronic Kidney Disease Epidemiology Collaboration (CKD-EPI) equation refit without adjustment for race Performed By: #### Carolynn AB17, PGF070, LAB99, ZBN063, SAH006 #### Worsted Winder: LOCO CRUZ ([id number]) [facility] ([facility]) [address] [place] [address] [place] Glucose [Mass/Vol] 99 mg/dL Normal 70-100 [facility] Comment on above: Performed By: #### L AB17, QVG138, LAB99, GMP385, NTM668 #### Worsted Winder: LOCO CRUZ ([id number]) [facility] ([facility]) [address] [place] [address] [place] Potassium [Moles/Vol] 3.3 mmol/L Low 3.5-5.1 [facility] Comment on above: Performed By: #### L AB17, WGA663, LAB99, VPQ873, SDP593 #### Worsted Winder: LOCO CRUZ ([id number]) [facility] ([facility]) [address] Protein [Mass/Vol] 7.2 g/dL Normal 6.3-8.2 [facility] Comment on above: Performed By: #### L AB17, YUM390, LAB99, RAS479, NGM161 #### Worsted Winder: LOCO CRUZ ([id number]) [facility] ([facility]) [address] Sodium [Moles/Vol] 139 mmol/L Normal 135-145 [facility] Comment on above: Performed By: #### L AB17, GNH124, LAB99, GPI807, VPN116 #### Worsted Winder: LOCO CRUZ ([id number]) [facility] ([facility]) [address] Urea nitrogen [Mass/Vol] 17 mg/dL Normal 7-17 [facility] Comment on above: Performed By: #### L AB17, HDV888, LAB99, AIP050, ELT802 #### Worsted Winder: LOCO CRUZ ([id number]) [facility] ([facility]) [address] [place] [address] CT ABDOMEN PELVIS WO [facility] ABDOMEN PELVIS WO [...] +hx of UTIs No other hx per care transport nurse Normal [facility] CT Abdomen WO contraston 1. No evidence for c alcified collecting system calculi or obstruction. 2. Sigmoid diverticulosis without evidence of diverticulitis. 3. No evidence of mass, lymphadenopathy or inflammatory process. Report Dictated on Electronically Signed By: Jaron Ro MD Electronically Signed Date/Time: 03/26/2024 3:29 PM [facility] Patient Name: SHARLA JOINER : 1975 [facility]#: [id number] Exam Date/Time: 03/26/2024 15:18 Procedure: CT ABDOMEN [...] No ascites or inflammatory changes are identified. [facility] Jaron Ro MD - 03/26/2024 Patient Name: SHARLA JOINER : 1975 [facility]#: [id number] Exam Date/Time: 03/26/2024 15:18 Procedure: CT ABDOMEN [...] Electronically Signed Date/Time: 03/26/2024 3:29 PM EDT [facility] Radiology Study observation (narrative) [facility] CT Abdomen WO contrastOrdere d By: Jaron Ro on 03-26-2024 [facility] Work Phone: Comprehensive metabolic 1998 panelon 03-26-2024 Albumin [Mass/Vol] 4.0 g/dL 3.5 - 5.0 g/dL [facility] ALP [Catalytic activity/Vol] 95 U/L 38 - 126 U/L [facility] ALT [Catalytic activity/Vol] 55 U/L High 0 - 34 U/L [facility] Anion gap [Moles/Vol] 9 mmol/L 3 - 13 mmol/L [facility] AST [Catalytic activity/Vol] 99 U/L High 15 - 46 U/L [facility] Bilirubin [Mass/Vol] 1.2 mg/dL 0.2 - 1 .3 mg/dL [facility] Calcium [Mass/Vol] 9.2 mg/dL 8.4 - 10. 4 mg/dL [facility] Chloride [Moles/Vol] 105 mmol/L 98 - 10 7 mmol/L [facility] CO2 [Moles/Vol] 25 mmol/L 22 - 30 mmol/L [facility] Creatinine [Mass/Vol] 0.78 mg/dL 0.52 - 1.04 mg/dL [facility] GFR/1.73 sq M.predicted (S/P/Bld) [Vol rate/Area] - PINF [facility] Comment on above: Calculation based on the Chronic Kidney Disease Epidemiology Collaboration (CKD-EPI) equation refit without adjustment for race Glucose [Mass/Vol] 99 mg/dL 70 - 100 mg/dL [facility] Interpretation and review of laboratory results Abnormal [facility] Potassium [Moles/Vol] 3.3 mmol/L Low 3.5 - 5.1 mmol/L [facility] Protein [Mass/Vol] 7.2 g/dL 6.3 - 8.2 g/dL [facility] Sodium [Moles/Vol] 139 mmol/L 135 - 145 mmol/L [facility] Urea nitrogen [Mass/Vol] 17 mg/dL 7 - 17 mg/dL [facility] ECG 12-LEADon 03-26-2024 ECG 12-LEAD IMPRESSION: Sinus tachycardia Borderline prolonged QT interval no stemi Electronically Signed On 03-26-2024 13:22:07 EDT by Luci Shah [facility] ED Nursing Noteon 03-26-2024 ED Nursing Note EKG, IV, blood work, covid and straight cath completed with assistance of Juliette Ponce RN, Juan medic and Mary medic; patient tolerated well. Respirations even and unlabored, no distress noted. Caregiver at bedside throughout all procedures and remains with patient after Trish Miranda RN 03/26/24 1316 [facility] ED Nursing Note EKG performed by Roberto lópez and given to MD for review Trish Miranda RN 03/26/24 1303 [facility] ED Provider Noteon ED Provider Note Emergency Department Encounter [facility] EMERGENCY DEPT Patient: Sharla Joiner : 1975 [...] for agitation. Patient brought in by her timers inspector from her [place] [facility]. She has autism she does verbalize at baseline but does not make sense at baseline. The timers inspector states she has been complaining of pain when she has bowel movements and she has been aggressive with others not acting herself. She has not been eating drinking or sleeping. She was seen here few days ago and diagnosed with possible ear infection. Tactical Debriefer Officer did not report any rash to the [...] for clarification.) Luci Shah MD Acute Care [facility] Luci Shah MD 03/26/24 1223 [facility] ED Provider Note EMERGENCY DEPARTMENT ENCOUNTER [...] not sleeping, strengthening other staff at the [place] [facility] [place]. Patient is autistic has developmental delay, she was here couple days ago had to give her Ativan and Versed eventually family and [place] [facility] employee just wanted to take her back [...] Normal appeara (more content not included)... Normal [facility] HCG QUANTITATIVE BLOODon HCG QUANTITATIVE <2 Normal Females <=5 [facility] Comment on above: Result Comment: NAIMA Mohan [...] trophoblastic disease. Performed By: #### L AB17, PHV893, LAB99, JQD497, BLC250 ####Worsted Winder: LOCO CRUZ ([id number])[facility] ([facility])[address] LACTIC ACID WITH REFLEXon Lactate [Moles/Vol] 1.1 mmol/L Normal 0.7-2.0 [facility] Comment on above: Performed By: #### L [id number] ####Worsted Winder: LOCO CRUZ ([id number])[facility] ([facility])[address] [place] [id number] [facility] LIPASEon 03-26-2024 Lipase [Catalytic activity/Vol] 66 U/L Normal 23-300 [facility] Comment on above: Performed By: #### L AB17, RBQ904, LAB99, PXH496, LHI566 ####Worsted Winder: LOCO CRUZ ([id number])[facility] ([facility])[address] Laboratory - Chemistry and C hemistry - challengeon 03-26-2024 HCG.beta subunit Qn Females <=5 mIU/mL [facility] Troponin I.cardiac [Mass/Vol] 0.022 ng/mL NINF - 0.034 ng/mL [facility] Lipase [Catalytic activity/Vol] 66 U/L 23 - 300 U/L [facility] Magnesium [Mass/Vol] 2.1 mg/dL 1.6 - 2 .3 mg/dL [facility] Lactate [Moles/Vol] 1.1 mmol/L 0.7 - 2. 0 mmol/L [facility] Laboratory - Microbiology an d Antimicrobial susceptibilityon 03-26-2024 FLUAV RNA MACIE+probe Ql (Resp) Not detected Not Detected [facility] FLUBV RNA MACIE+probe Ql (Resp) Not detected Not Detected [facility] RSV RNA MACIE+probe Ql (Resp) Not detected Not Detected [facility] SARS-CoV-2 (COVID-19) RNA MACIE+probe Ql (Resp) Not detected Not Detected [facility] SARS-CoV-2 (COVID-19) RNA MACIE+probe Ql (Unsp spec) Methodology: real-time, RT-PCR The SARS-CoV-2, Flu A/B, and RSV Combo assay is intended for in vitro diagnostic use under the FDA Emergency Use Authorization (EUA). This test has not been FDA cleared or approved. In compliance with this authorization, please visit www.fda.gov/media/217768/vivienne nload or www.fda.gov/media/753596/vivienne nload to access the applicable information sheets. [facility] MAGNESIUMon 03-26-2024 Magnesium [Mass/Vol] 2.1 mg/dL Normal 1.6-2.3 [facility] Comment on above: Performed By: #### L AB17, TDI961, LAB99, RTA125, GHW496 #### Worsted Winder: LOCO CRUZ ([id number]) [facility] ([facility]) [address] [place] [address] No Panel Informationon 03-26 Values in should [...] , ectopic , gestosis or intrauterine . Kyaa- and postmenopausal females may have detectable hCG [...] or monitor tumors or gestational trophoblastic disease. [facility] Interpretation and review of laboratory results Normal [facility] Interpretation and review of laboratory results Normal [facility] P [place] 33 degrees [facility] [place] Interval 102 ms [facility] QRS [place] -5 degrees [facility] QRSD Interval 90 ms [facility] QT Interval 377 ms [facility] QTC Interval 498 ms [facility] T Wave [place] 16 degrees [facility] Sinus tachycardia Borderline prolonged QT interval no stemi Electronically Signed On 03-26-2024 13:22:07 EDT by Luci Shah CV Luci Cai MD - 03/26/2024 IMPRESSION: Sinus tachycardia Borderline prolonged QT interval no stemi Electronically Signed On 03-26-2024 13:22:07 EDT by Luci Shah [facility] SARS-COV-2, FLU A/B, AND RSV COMBOon 03-26-2024 [...] In compliance with this authorization, please visit www.fda.gov/media/153026/vivienne nload or www.fda.gov/media/577071/vivienne nload to access the applicable information sheets. Normal [facility] Comment on above: Performed By: #### L [id number] #### Worsted Winder: LOCO CRUZ ([id number]) [facility] ([facility]) [address] [place] [address] SARS-CoV-2, Flu A/B, and RSV Comboon 03-26-2024 Interpretation and review of laboratory results Normal [facility] TROPONIN Ion 03-26-2024 Troponin I.cardiac [Mass/Vol] 0.022 ng/mL Normal <0.034 [facility] Comment on above: Result Comment: NAIMA Mohan COMMENTS: Patients with high levels of Biotin oral intake (ie >5 mg/day) may have falsely decreased Troponin levels. Performed By: #### L AB17, PAN113, LAB99, SHI827, QWT337 ####Worsted Winder: LOCO CRUZ ([id number])[facility] ([facility])[address] [place] [address] Troponin I.cardiac [Mass/Vol ]on 03-26-2024 Interpretation and review of laboratory results Normal [facility] Patients with high l evels of Biotin oral intake (ie >5 mg/day) may have falsely decreased Troponin levels. [facility] Urinalysis complete panel (U )Ordered By: Anastasia Bob on 03-26-2024 Bacteria LM.HPF (Urine sed) [#/Area] Negative Negative /HPF [facility] Bilirubin Ql (U) Negative Negative mg/dL [facility] Clarity (U) Clear Clear [facility] Color (U) Dark Yellow Abnormal Lt. Yellow [facility] Epithelial cells.squamous LM.HPF (Urine sed) [#/Area] 3-5 [facility] Glucose Ql (U) Normal Normal (<70) mg/dL [facility] Hemoglobin Ql (U) Negative Negative mg/dL [facility] Interpretation and review of laboratory results Abnormal [facility] Ketones (U) [Mass/Vol] 20 mg/dL Abnormal Negative [facility] Leukocyte esterase Test strip Ql (U) Negative Negative Michelle/uL [facility] Mucus LM.HPF (Urine sed) [#/Area] Moderate Abnormal Negative /LPF [facility] Nitrite Ql (U) Negative Negative [facility] pH (U) 6.0 [pH] 5.0 - 8.0 pH [facility] Protein (U) [Mass/Vol] 30 mg/dL Abnormal Negative [facility] RBC LM.HPF (Urine sed) [#/Area] 0-2 [facility] Specific gravity (U) [Rel density] 1.035 High 1.005 - 1.030 [facility] Urobilinogen (U) [Mass/Vol] 3 mg/dL Abnormal Normal (0-1) [facility] Volume, Urine 12 mL [facility] WBC LM.HPF (Urine sed) [#/Area] 3-5 [facility] Vital signson 03-26-2024 Heart rate 105 /min bpm [facility] ED Nursing Noteon 03-24-2024 ED Nursing Note [...] notified. Matt Mix RN 03/24/24 2250 Normal [facility] ED Nursing Note Pt still pacing in r oom and unable to draw blood at this time. Matt Mix RN 03/24/24 2227 Normal [facility] ED Nursing Note Patient very agitate d and restless, patient refusing to stay in room and remains uncooperative. Lalit ORNELAS notified. Unable to obtain blood work at this time. Sheridan Deng RN 03/24/24 2148 Normal [facility] ED Provider Noteon ED Provider Note EMERGENCY DEPARTMENT ENCOUNTER Pt Name: Sharla Joinre Birthdate 1975 Date of evaluation: 03/24/2024 ED Provider: Lalit Solorzano APRN - SUPERINTENDENT PIER Patient seen independently within my scope of [...] of this encounter. History provided by: Patient wardrobe manager used: No Sharla Joiner is a 48 y.o. female with past medical history for bipolar disorder, autistic disorder, Parkinson's disease, tardive dyskinesia, UTI and ear infection presents to the emergency department for evaluation of left earache. Patient's caregiver states that the patient has been tugging on her left ear, and she has been [facility] [place] [facility]. Patient's mom and caregiver suspect that the [...] or erythematous. (more content not included)... Normal [facility] CNOVon 03-16-2024 CNOV Normal [facility] CNPNon 01-25-2024 CNPN Normal [facility] ANES POSTPROC EVALon 024 ANES POSTPROC EVAL Normal [facility] ANES PRE-OPon 01-24-2024 ANES PRE-OP Normal [facility] HCG QUALITATIVEon 01-24-2024 HCG, QUALITATIVE Negative Normal Negative [facility] Comment on above: Order Comment: Speci men Type: BLOOD SPECIMENOrdering Facility: [facility] Address: [address] [place] [address] Performed By: #### H CG ####[facility] LABORATORYCLIA [id number] [place] [address] [place] HISTORY PHYSICALon HISTORY PHYSICAL Normal [facility] NURSING PROGon 01-24-2024 NURSING PROG Normal [facility] NURSING PROG [facility] OPERATIVE NOon 01-24-2024 OPERATIVE NO [facility] ANES PREOPon 01-23-2024 ANES PREOP Normal [facility] CBC W Auto Differential pane l (Bld)on 01-20-2024 Basophils (Bld) [#/Vol] 0.03 10*3/uL Normal <0.11 [facility] Comment on above: Order Comment: Speci men Type: BLOOD SPECIMENOrdering Facility: [facility] Address: [address] [place] [address] Performed By: #### 5 7021-8 ####[facility] LABORATORYCLIA [id number] [place] [address] [place] Basophils/100 WBC (Bld) 0.4 % Normal [facility] Comment on above: Order Comment: Speci men Type: BLOOD SPECIMENOrdering Facility: [facility] Address: [address] [place] [address] Performed By: #### 5 7021-8 ####[facility] LABORATORYCLIA [id number] [place] [address] [place] Differential cell count method Nom (Bld) Auto Normal [facility] Comment on above: Order Comment: Speci men Type: BLOOD SPECIMENOrdering Facility: [facility] Address: [address] [place] [address] Performed By: #### 5 7021-8 ####[facility] LABORATORYCLIA [id number] [place] [address] [place] Eosinophils (Bld) [#/Vol] 0.16 10*3/uL Normal <0.46 [facility] Comment on above: Order Comment: Speci men Type: BLOOD SPECIMENOrdering Facility: [facility] Address: [address] [place] [address] Performed By: #### 5 7021-8 ####[facility] LABORATORYCLIA [id number] [place] [address] [place] Eosinophils/100 WBC (Bld) 2.3 % Normal [facility] Comment on above: Order Comment: Speci men Type: BLOOD SPECIMENOrdering Facility: [facility] Address: [address] [place] [address] Performed By: #### 5 7021-8 ####[facility] LABORATORYCLIA [id number] [place] [address] [place] Erythrocyte distribution width (RBC) [Ratio] 13.1 % Normal 11.5-15.0 [facility] Comment on above: Order Comment: Speci men Type: BLOOD SPECIMENOrdering Facility: [facility] Address: [address] [place] [address] Performed By: #### 5 7021-8 ####[facility] LABORATORYCLIA [id number] [place] [address] [place] Hematocrit (Bld) [Volume fraction] 42.0 % Normal 36.0-46.0 [facility] Comment on above: Order Comment: Speci men Type: BLOOD SPECIMENOrdering Facility: [facility] Address: [address] [place] [address] Performed By: #### 5 7021-8 ####[facility] LABORATORYCLIA [id number] [place] [address] [place] Hemoglobin (Bld) [Mass/Vol] 14.4 g/dL Normal 11.5-15.5 [facility] Comment on above: Order Comment: Speci men Type: BLOOD SPECIMENOrdering Facility: [facility] Address: [address] [place] [address] Performed By: #### 5 7021-8 ####[facility] LABORATORYCLIA [id number] [place] [address] [place] Immature granulocytes (Bld) [#/Vol] 0.05 10*3/uL Normal <0.10 [facility] Comment on above: Order Comment: Speci men Type: BLOOD SPECIMENOrdering Facility: [facility] Address: [address] [place] [address] Performed By: #### 5 7021-8 ####[facility] LABORATORYCLIA [id number] [address] [place] Immature granulocytes/100 WBC (Bld) 0.7 % Normal [facility] Comment on above: Order Comment: Speci men Type: BLOOD SPECIMENOrdering Facility: [facility] Address: [address] [place] [address] Performed By: #### 5 7021-8 ####[facility] LABORATORYCLIA [id number] [place] [address] [place] Lymphocytes (Bld) [#/Vol] 2.58 10*3/uL Normal 1.00-4.00 [facility] Comment on above: Order Comment: Speci men Type: BLOOD SPECIMENOrdering Facility: [facility] Address: [address] [place] [address] Performed By: #### 5 7021-8 ####[facility] LABORATORYCLIA [id number] [place] [address] [place] Lymphocytes/100 WBC (Bld) 37.4 % Normal [facility] Comment on above: Order Comment: Speci men Type: BLOOD SPECIMENOrdering Facility: [facility] Address: [address] [place] [address] Performed By: #### 5 7021-8 ####[facility] LABORATORYCLIA [id number] [address] MCH (RBC) [Entitic mass] 31.4 pg Normal 26.0-34.0 [facility] Comment on above: Order Comment: Speci men Type: BLOOD SPECIMENOrdering Facility: [facility] Address: [address] [place] [address] Performed By: #### 5 7021-8 ####[facility] LABORATORYCLIA [id number] [address] [place] MCHC (RBC) [Mass/Vol] 34.3 g/dL Normal 30.5-36.0 [facility] Comment on above: Order Comment: Speci men Type: BLOOD SPECIMENOrdering Facility: [facility] Address: [address] [place] [address] Performed By: #### 5 7021-8 ####[facility] LABORATORYCLIA [id number] [address] OF [facility] MCV (RBC) [Entitic vol] 91.7 fL Normal 80.0-100.0 [facility] Comment on above: Order Comment: Speci men Type: BLOOD SPECIMENOrdering Facility: [facility] Address: [address] [place] [address] Performed By: #### 5 7021-8 ####[facility] LABORATORYCLIA [id number] [address] [place] Monocytes (Bld) [#/Vol] 0.88 10*3/uL High <0.87 [facility] Comment on above: Order Comment: Speci men Type: BLOOD SPECIMENOrdering Facility: [facility] Address: [address] [place] [address] Performed By: #### 5 7021-8 ####[facility] LABORATORYCLIA [id number] [address] Monocytes/100 WBC (Bld) 12.8 % Normal [facility] Comment on above: Order Comment: Speci men Type: BLOOD SPECIMENOrdering Facility: [facility] Address: [address] [place] [address] Performed By: #### 5 7021-8 ####[facility] LABORATORYCLIA [id number] [place] [address] [place] Neutrophils (Bld) [#/Vol] 3.20 10*3/uL Normal 1.45-7.50 [facility] Comment on above: Order Comment: Speci men Type: BLOOD SPECIMENOrdering Facility: [facility] Address: [address] [place] [address] Performed By: #### 5 7021-8 ####[facility] LABORATORYCLIA [id number] [address] [place] Neutrophils/100 WBC (Bld) 46.4 % Normal [facility] Comment on above: Order Comment: Speci men Type: BLOOD SPECIMENOrdering Facility: [facility] Address: [address] [place] [address] Performed By: #### 5 7021-8 ####[facility] LABORATORYCLIA [id number] [place] [address] [place] Nucleated RBC (Bld) [#/Vol] 10*3/uL Normal <0.01 [facility] Comment on above: Order Comment: Speci men Type: BLOOD SPECIMENOrdering Facility: [facility] Address: [address] [place] [address] Performed By: #### 5 7021-8 ####[facility] LABORATORYCLIA [id number] [place] [address] [place] Nucleated RBC/100 WBC (Bld) [Ratio] 0.0 /100 WBC Normal [facility] Comment on above: Order Comment: Speci men Type: BLOOD SPECIMENOrdering Facility: [facility] Address: [address] [place] [address] Performed By: #### 5 7021-8 ####[facility] LABORATORYCLIA [id number] [place] [address] [place] Platelet mean volume (Bld) [Entitic vol] 8.8 fL Low 9.0-12.7 [facility] Comment on above: Order Comment: Speci men Type: BLOOD SPECIMENOrdering Facility: [facility] Address: [address] [place] [address] Performed By: #### 5 7021-8 ####[facility] LABORATORYCLIA [id number] [place] [id number] [place] Platelets (Bld) [#/Vol] 112 10*3/uL Low 150-400 [facility] Comment on above: Order Comment: Speci men Type: BLOOD SPECIMENOrdering Facility: [facility] Address: [address] [place] [address] Performed By: #### 5 7021-8 ####[facility] LABORATORYCLIA [id number] [place] [address] [place] RBC (Bld) [#/Vol] 4.58 10*6/uL Normal 3.90-5.20 [facility] Comment on above: Order Comment: Speci men Type: BLOOD SPECIMENOrdering Facility: [facility] Address: [address] [place] [address] Performed By: #### 5 7021-8 ####[facility] LABORATORYCLIA [id number] [place] [id number] [place] WBC (Bld) [#/Vol] 6.90 10*3/uL Normal 3.70-11.00 [facility] Comment on above: Order Comment: Speci men Type: BLOOD SPECIMENOrdering Facility: [facility] Address: [address] [place] [address] Performed By: #### 5 7021-8 ####[facility] LABORATORYCLIA [id number] [place] [id number] [place] CONSULTon 01-20-2024 CONSULT Normal [facility] CT NECK SOFT TISSUE W IVCONo n 01-20-2024 CT NECK SOFT TISSUE W IVCON Normal [facility] Comprehensive metabolic 2000 panelon 01-20-2024 Albumin [Mass/Vol] 2.9 g/dL Low 3.2-5.0 [facility] Comment on above: Order Comment: Speci men Type: BLOOD SPECIMENOrdering Facility: [facility] Address: [address] [place] [address] Performed By: #### 2 4323-8 ####[facility] LABORATORYCLIA [id number] [place] [id number] [place] ALP [Catalytic activity/Vol] 86 U/L Normal 45-117 [facility] Comment on above: Order Comment: Speci men Type: BLOOD SPECIMENOrdering Facility: [facility] Address: [address] [place] [address] Performed By: #### 2 4323-8 ####[facility]ORATORYCLIA [id number] [place] [address] [place] ALT [Catalytic activity/Vol] 22 U/L Normal 13-61 [facility] Comment on above: Order Comment: Speci men Type: BLOOD SPECIMENOrdering Facility: [facility] Address: [address] [place] [address] Result Comment: Resu lts may be falsely depressed after the administration of Sulfasalazine and/or Sulfapyridine. Performed By: #### 2 4323-8 ####[facility] LABORATORYCLIA [id number] [address] [place] Anion gap [Moles/Vol] 7 mmol/L Normal 5-16 [facility] Comment on above: Order Comment: Speci men Type: BLOOD SPECIMENOrdering Facility: [facility] Address: [address] [place] [address] Performed By: #### 2 4323-8 ####[facility] LABORATORYCLIA [id number] [place] [address] [place] AST [Catalytic activity/Vol] 20 U/L Normal 8-34 [facility] Comment on above: Order Comment: Speci men Type: BLOOD SPECIMENOrdering Facility: [facility] Address: [address] [place] [address] Result Comment: Resu lts may be falsely depressed after the administration of Sulfasalazine and/or Sulfapyridine. Performed By: #### 2 4323-8 ####[facility] LABORATORYCLIA [id number] [place] [address] [place] Bilirubin [Mass/Vol] 1.0 mg/dL Normal 0.2-1.0 [facility] Comment on above: Order Comment: Speci men Type: BLOOD SPECIMENOrdering Facility: [facility] Address: [address] [place] [address] Performed By: #### 2 4323-8 ####[facility] LABORATORYCLIA [id number] [place] [address] [place] Calcium [Mass/Vol] 9.0 mg/dL Normal 8.5-10.5 [facility] Comment on above: Order Comment: Speci men Type: BLOOD SPECIMENOrdering Facility: [facility] Address: [address] [place] [address] Performed By: #### 2 4323-8 ####[facility] LABORATORYCLIA [id number] [place] [address] [place] Chloride [Moles/Vol] 110 mmol/L High 98-107 [facility] Comment on above: Order Comment: Speci men Type: BLOOD SPECIMENOrdering Facility: [facility] Address: [address] [place] [address] Performed By: #### 2 4323-8 ####[facility] LABORATORYCLIA [id number] [place] [address] [place] CO2 [Moles/Vol] 29 mmol/L Normal 21-32 [facility] Comment on above: Order Comment: Speci men Type: BLOOD SPECIMENOrdering Facility: [facility] Address: [address] [place] [address] Performed By: #### 2 4323-8 ####[facility] LABORATORYCLIA [id number] [place] [address] [place] Creatinine [Mass/Vol] 0.60 mg/dL Normal 0.51-0.95 [facility] Comment on above: Order Comment: Speci men Type: BLOOD SPECIMENOrdering Facility: [facility] Address: [address] [place] [address] Result Comment: Marilin ents receiving either N-Acetylcysteine (NAC) or Metamizole prior to venipuncture, may have falsely depressed results. Performed By: #### 2 4323-8 ####[facility] LABORATORYCLIA [id number] [place] [address] [place] Creatinine and Glomerular filtration rate.predicted panel (S/P/Bld) 112 mL/min/1.73m??? Normal >=60 [facility] Comment on above: Order Comment: Syd ramos Type: BLOOD SPECIMENOrdering Facility: [facility] Address: [address] [place] [address] Result Comment: Chrissy mated Glomerular Filtration Rate [...] actual GFR. Performed By: #### 2 4323-8 ####[facility] LABORATORYCLIA [id number] [place] [address] [place] Glucose [Mass/Vol] 82 mg/dL Normal 70-100 [facility] Comment on above: Order Comment: Syd ramos Type: BLOOD SPECIMENOrdering Facility: [facility] Address: [address] [place] [address] Result Comment: The [place] Diabetes Association (ADA) provides guidance for cutoff [...] Standards of Medical Care in Diabetes 2016, [place] Diabetes Association. Diabetes Care. 2016.39(Suppl 1).Results may be falsely elevated after the administration of Sulfapyridine.Results may be falsely depressed after the administration of Sulfasalazine. Performed By: #### 2 4323-8 ####[facility] LABORATORYCLIA [id number] [place] [address] [place] Potassium [Moles/Vol] 3.1 mmol/L Low 3.5-5.1 [facility] Comment on above: Order Comment: Speci men Type: BLOOD SPECIMENOrdering Facility: [facility] Address: [address] [place] [address] Performed By: #### 2 4323-8 ####[facility] LABORATORYCLIA [id number] [place] [address] [place] Protein [Mass/Vol] 6.1 g/dL Normal 6.0-8.5 [facility] Comment on above: Order Comment: Speci men Type: BLOOD SPECIMENOrdering Facility: [facility] Address: [address] [place] [address] Performed By: #### 2 4323-8 ####[facility] LABORATORYCLIA [id number] [place] [address] [place] Sodium [Moles/Vol] 146 mmol/L High 136-145 [facility] Comment on above: Order Comment: Speci men Type: BLOOD SPECIMENOrdering Facility: [facility] Address: [address] [place] [address] Performed By: #### 2 4323-8 ####[facility] LABORATORYCLIA [id number] [place] [address] [place] Urea nitrogen [Mass/Vol] 10 mg/dL Normal 7-26 [facility] Comment on above: Order Comment: Speci men Type: BLOOD SPECIMENOrdering Facility: [facility] Address: [address] [place] [address] Performed By: #### 2 4323-8 ####[facility] LABORATORYCLIA [id number] [address] [place] ED NOTEon 01-20-2024 ED NOTE HNO ID: [id number] Author: YASMIN TONY RN Service: ? Author Type: Registered Nurse Type: ED Notes Filed: 01/20/2024 10:22 Note Text: Pt has a tooth abscess and was referred here due to not being able to get dental care done in dental office. Normal [facility] ED PROV NOTEon 01-20-2024 ED PROV NOTE Normal [facility] HCG QUALITATIVEon 01-20-2024 HCG, QUALITATIVE Negative Normal Negative [facility] Comment on above: Order Comment: Speci men Type: BLOOD SPECIMENOrdering Facility: [facility] Address: [address] [place] [address] Performed By: #### H CLIF, 85043-2 ####[facility] LABORATORYCLIA [id number] [address] [place] Procalcitonin SerPl-mCncon 0 01-20-2024 Procalcitonin [Mass/Vol] ng/mL Normal 0.00-0.50 [facility] Comment on above: Order Comment: Speci men Type: BLOOD SPECIMENOrdering Facility: [facility] Address: [address] [place] [address] Result Comment: PCT Concentration InterpretationPCT <=0.1 ng/mL:Normal [...] septic shock. Performed By: #### H CLIF, 57460-5 ####[facility] LABORATORYCLIA [id number] [place] [id number] [place] CNOVon 01-17-2024 CNOV Normal [facility] ED Provider Noteon ED Provider Note [...] emergency department with a personal-care tach from [employer], for evaluation of left ear irritation with [...] Sexual Act (more content not included)... Normal [facility] Progress Noteon 12-02-2023 Progress Note A 48-year-old [...] created in error - please disregard. Normal [facility] URINALYSIS, DIPSTICK ONLYOrd ered By: Jerri Novak on 11-24-2023 Bilirubin Ql (U) Negative Negative [facility] Clarity (Unsp spec) Clear Clear [facility] Color (U) Yellow Yellow [facility] Glucose Test strip (U) [Mass/Vol] Negative Negative [facility] Hemoglobin Ql (U) 2+ Abnormal Negative [facility] Interpretation and review of laboratory results Abnormal [facility] Ketones Ql (U) 1+ Abnormal Negative [facility] Leukocyte esterase Test strip Ql (U) Negative Negative [facility] Nitrite Ql (U) Negative Negative [facility] pH (U) 6.0 [pH] 5.0 - 8.0 [facility] Protein (U) [Mass/Vol] Negative Negative [facility] Specific gravity (U) [Rel density] 1.030 1.005 - 1.030 [facility] Urobilinogen Ql (U) 1+ Abnormal Negative [facility] CT HEAD WO IV CONTRASTon CT HEAD [...] Pt states she has no periods Normal [facility] CT Head WO contraston 2023 No acute findings. Report Dictated on Electronically Signed By: Liban Robertson MD Electronically Signed Date/Time: 08/11/2023 6:56 PM EST [facility] [employer] Patient Name: SHARLA JOINER : 1975 [...] and the mastoid air cells are clear. [facility] Liban Robertson MD - 08/11/2023 [...] Electronically Signed Date/Time: 08/11/2023 6:56 PM EST [facility] Radiology Study observation (narrative) [facility] CT Head WO contrastOrdered B y: Liban Robertson on 08-11-2023 [facility] Work Phone: ED Nursing Noteon 08-11-2023 ED Nursing Note Pt presents to the e r with her caregiver , caregiver states she fell today and hit the front of her head, pt denies any LOC , pt denies pain Normal [facility] ED Provider Noteon ED Provider Note EMERGENCY [...] getting [place] [facility] the [place] and stepped wrong and fell onto the [...] otherwise acutely negative except as in the [facility] PAST MEDICAL HISTORY Past Medical History: Diagnosis [...] speech recognition (more content not included)... Normal [facility] CT HEAD OR BRAIN W/O CONTRAS Ton 05-28-2023 CT HEAD OR BRAIN W/O CONTRAST ORIGINAL EXAMINATION: CT OF THE HEAD WITHOUT OFBCFIYT32/11/2023 3:[address] HEAD OR BRAIN W/O [...] PM Ordering Provider: [place] [facility] [place] LABORATORYOrdered By: William Rojas on 05-28-2023 Appearance [...] 05-28-2023 Color (U) Yellow Normal [facility] [place] Comment on above: Performed By: #### U AMIC, UA #### [place] [address] Glucose (U) [Mass/Vol] Negative Normal Negative [facility] [place] Comment on above: Performed By: #### U AMIC, UA #### [place] [address] Ketones Ql (U) Trace Normal Neg-Trace [facility] [place] Comment on above: Performed By: #### U AMIC, UA #### [place] [address] UA Appear Clear Normal Clear [facility] [place] Comment on above: Performed By: #### U AMIC, UA #### [place] [address] UA Blood Negative Normal Neg-Trace [facility] [place] Comment on above: Performed By: #### U AMIC, UA #### [address] [address] UA Leuk Est Trace Normal Negative [facility] [place] Comment on above: Performed By: #### U AMIC, UA #### [address] [address] [facility]A Nitrite Negative Normal Negative [facility] [place] Comment on above: Performed By: #### U AMIC, UA #### [place] [address] UA pH 8.0 Normal 5.0 - 8.0 [facility] [place] Comment on above: Performed By: #### U AMIC, UA #### [place] [address] UA Protein Negative Normal Negative [facility] [place] Comment on above: Performed By: #### U AMIC, UA #### [place] [address] UA Spec Grav 1.015 Normal 1.006-1.02 9 [facility] [place] Comment on above: Performed By: #### U AMIC, UA #### [place] [address] UA Specimen Type Clean Catch Normal [facility] [place] Comment on above: Performed By: #### U AMIC, UA #### [place] [address] UA Urobilinogen 2.0 E.U./dL Abnormal 0.2-1.0 [facility] [place] Comment on above: Performed By: #### U AMIC, UA #### [place] [address] Urobilinogen (U) [Mass/Vol] Negative Normal Neg-Trace [facility] [place] Comment on above: Performed By: #### U AMIC, UA #### [place] [address] UAMICon 05-28-2023 UA Bacteria Trace Abnormal Negative [facility] [place] Comment on above: Performed By: #### U AMIC, UA #### [place] [address] UA Mucous 1+ /hpf Normal [facility] [place] Comment on above: Performed By: #### U AMIC, UA #### [place] [address] UA RBC 5-10 Abnormal 0-2 [facility] [place] Comment on above: Performed By: #### U AMIC, UA #### [place] [address] UA Squam Epithelial 0-2 Normal 0-20 [facility] [place] ([place] Comment on above: Performed By: #### U AMIC, UA #### [facility] [address] [place] [address] UA Transitional Epithelial Rare Normal [facility] [place] Comment on above: Performed By: #### U AMIC, UA #### [facility] [address] [place] [address] UA WBC 5-10 Abnormal 0-5 [facility] [place] Comment on above: Performed By: #### U AMIC, UA #### [facility] [address] [place] [address] 1968[address] XR ESOPHAGRAMon 04-07-2023 XR ESOPHAGRAM * * *Final Report* * * DATE OF EXAM: Apr 07 2023 10:22AM AWX [id number] - XR ESOPHAGRAM / PROCEDURE REASON: r13.10 * * * * Physician Interpretation * * * * EXAM TITLE: XR ESOPHAGRAM DATE: 04/07/2023 11:07 AM INDICATION: Dysphagia COMPARISON: None. FINDINGS: Fluoroscopy was performed by the radiology physician's teaching assistant. 47 seconds of fluoroscopy time was used. 66 images were obtained. The patient swallowed barium without difficulty. The esophagus demonstrates normal contour and motility. A 13 mm barium tablet passed easily through the esophagus. IMPRESSION: Within normal limits. Applied Technologist: GERONIMO Transcribe Date/Time: Apr 07 2023 11:07A Dictated by : POWER MANSFIELD MD This examination was interpreted and the report reviewed and electronically signed by: POWER MANSFIELD MD on Apr 07 2023 11:08AM EST [id number] Normal [facility] LABORATORYOrdered By: SYSTEM SYSTEM on 01-14-2023 [...] Invalid Interpretation Code 70 - 110 mg/dL [facility] Work Phone: LABORATORYOrdered By: SYSTEM SYSTEM on [...] Invalid Interpretation Code 70 - 110 mg/dL [facility] Work Phone: LABORATORYOrdered By: SYSTEM SYSTEM on [...] serogroups and species may also cause disease. [facility] Work Phone: Streptococcus Pneumoniae Urine Antig Presumptive negative for pneumococcal pneumonia, suggesting no current or recent pneumococcal infection. Infection due to Strep pneumoniae cannot be ruled out since the antigen present in the sample may be below the detection limit of the test. [facility] Work Phone: Comment on above: This test has not be en evaluated on patients taking antibiotics for greater than 24 hours or on patients who have recently completed an antibiotic regimen. The accuracy of this test has not been proven in young children. Culture Urine No growth at 48 hours. [facility] Work Phone: LABORATORYOrdered By: SYSTEM SYSTEM on [...] Detected AH Auto Viro/Sero SS B. parapertussis [id number] DNA MACIE+non-probe Ql (Nph) Not Detected *NA* [...] AH Auto Viro/Sero SS US KIDNEY/BLADDERon 11-16-19 [facility] UA DIP, URINE (POC)on 2022 BILIRUBIN UA (POCT) Negative Negative [facility] CLARITY UA (POCT) Clear [facility] COLOR UA (POCT) Yellow [facility] GLUCOSE UA (POCT) Negative Negative mg/dL [facility] HEMOGLOBIN/BLOOD UA (POCT) Trace-intact Abnormal Negative [facility] KETONE UA (POCT) Trace Negative mg/dL [facility] LEUKOCYTES UA (POCT) Negative Negative [facility] NITRITE UA (POCT) Negative Negative [facility] PH UA (POCT) 6.0 4.5 - 8.0 [facility] Protein Ql (U) Negative Negative mg/dL [facility] SPECIFIC GRAVITY UA (POCT) 1.015 1.005 - 1.030 [facility] UROBILINOGEN UA (POCT) 1.0 E.U./dL Normal E.U./dL [facility] US FEMALE PELVIS TRANSABD CO MPLETEon 10-29-2022 [facility] LABORATORYOrdered By: SYSTEM SYSTEM on 08-27-2022 CK [...] Routine cultures are held for 5 days. [facility] Work Phone: Microscopic examination of blood, culture Culture has been received in lab and is no growth to date. Routine cultures are held for 5 days. [facility] Work Phone: GENTAMICIN:SUSC:PT:ISOLATE:O RDQN:MICon 08-26-2022 Gentamicin KIKI [Susc] 50,000 - 100,000 c fu/ml Escherichia coli [facility] Work Phone: Gentamicin KIKI [Susc]on Escherichia coli Escherichia coli [facility] Work Phone: LABORATORYOrdered By: Mahi Morrison on [...] Invalid Interpretation Code Chemistry S LABORATORYOrdered By: [employer] SYSTEM on 07-15-2021 Albumin [Mass/Vol] 3.2 G/dL [...] Comment on above: Result [place]: [place] [id number] FLU B PCR Negative 3 (07/08/21 6:42 PM) Invalid Interpretation Code Negative AH Auto Viro/Sero SS Comment on above: [place] Comment: [place] s [id number] Hospitalized Unknown (07/08/21 6:42 PM) Invalid Interpretation [...] Comment on above: Result Comment: [place] s [id number] SARS-CoV-2 (COVID-19) RNA MACIE+probe Ql (Unsp spec) Negative 1 (07/08/21 6:42 PM) Invalid Interpretation Code Negative AH Auto Viro/Sero SS Comment on above: [place]: [place] 305[address] Symptomatic as Defined by CDC Yes (07/08/21 6:42 PM) Invalid Interpretation Code AH Auto Viro/Sero SS No Panel Informationon 07-08 Microscopic examination of blood, culture Culture has been received in lab and is no growth to date. Routine cultures are held for 5 days. [facility] Work Phone: LABORATORYOrdered By: Lea cueva on [...] Code 0-5/HPF Auto Urine SS SCon 07-03-2021 [facility] RE[facility] Normal [facility] DATE OF SERVICE: CHIEF COMPLAINT: [...] is soft. Diffuse tenderness noted. Bilateral tenderness. [facility] PATIENT NAME: SHARLA JOINER [address] [place] MEDICAL REC #: [id number] [place] [address] [facility] RE[facility] PHYSICIAN ASSESSMENT: 1. urinary incontinence and blockage. 2. Dysuria. PLAN: Further treatment and evaluation is warranted. Will send her to the ER.Discussed with the patient treatments and plans. I discussed with the patient's caregiver. Jason Abarca MD TD/[id number] SSI File#: [id number] END OF DOCUMENT / CHANGE LOG FOLLOWS Last Edited By Elec. Signed By Jason Abarca MD #Jason Alonzo MD #JOSE FRANCISCO on 07/31/2021 09:54 ET on 07/31/2021 09:54 ET Revision Number - 2 Verified/Reviewed by [facility] PATIENT NAME: SHARLA JOINER [address] [place] MEDICAL REC #: [id number] [place] [address] [facility] PHYSICIAN 07/31/21 0955 JOSE FRANCISCO [facility] PATIENT NAME: SHARLA JOINER [address] [place] MEDICAL REC #: [id number] [place] [address] [facility] PHYSICIAN Normal [facility] URINE CULTUREon 07-03-2021 Bacteria identified Cx Nom (U) This report has been cancelled [facility] Comment on above: Order Comment: PATIE NT COULD NOT VOID URINE CULTUREon 01-03-2021 Bacteria identified Cx Nom (U) URINE RESULT 40-50,000 COL/ML MIXED HAILEY-PLEASE REPEAT-POSSIBLE CONTAMIN [facility] Comment on above: Order Comment: [place] Performed By: #### M 100.58305 #### [place] [address] PH# [phone] DIPSTICKon 01-02-2021 POC APPEARANCE CLEAR Normal CLEAR [facility] Comment on above: Order Comment: [place] Performed By: #### L 600.79669 #### [place] [address] PH# [phone] POC BILIRUBIN Negative Normal NEGATIVE [facility] Comment on above: Order Comment: [place] Performed By: #### L 600.39133 #### [place] [address] PH# [phone] POC BLOOD Negative Normal NEGATIVE [facility] Comment on above: Order Comment: [place] Performed By: #### L 600.73451 #### [place] [address] PH# [phone] POC COLOR STRAW Normal [facility] Comment on above: Order Comment: [place] Performed By: #### L 600.89145 #### [address] [place] [address] PH# [phone] POC KETONE Negative Normal NEGATIVE [facility] Comment on above: Order Comment: [place] Performed By: #### L 600.64760 #### [address] [place] [address] PH# [phone] POC LEUK EST Negative Normal NEGATIVE [facility] Comment on above: Order Comment: [place] Performed By: #### L 600.02679 #### [place] [address] PH# [phone] POC NITRITE Negative Normal NEGATIVE [facility] Comment on above: Order Comment: [place] Performed By: #### L 600.27616 #### [place] [address] PH# [phone] POC PROTEIN Negative Normal NEGATIVE [facility] Comment on above: Order Comment: [place] Performed By: #### L 600.01862 #### [place] [address] PH# [phone] POC SPEC GRAV 1.005 Normal 1.005-1.03 0 [facility] Comment on above: Order Comment: [place] Performed By: #### L 600.34406 #### [place] [address] PH# [phone] POC UA GLUCOSE NORMAL Normal NORMAL [facility] Comment on above: Order Comment: [place] Performed By: #### L 600.63186 #### [place] [address] PH# [phone] POC UA PH 6.5 Normal 5-6 [facility] Comment on above: Order Comment: [place] Performed By: #### L 600.88833 #### [address] [phone] POC UROBIL NORMAL Normal NORMAL [facility] Comment on above: Order Comment: [place]: [place] Performed By: #### L 600.71777 #### [address] [place] [address] PH# [phone] [facility] 01-02-2021 [facility] REPORT Normal [facility] DATE OF SERVICE: CHIEF COMPLAINT: [...] normal limits. Lungs and Heart: Within normal [facility] PATIENT [facility] #: [id number] [place] [address] [facility] RE[facility] PHYSICIAN limits. No CV angle tenderness. TESTS: UA done was negative. ASSESSMENT: Dysuria and behavioral changes. PLAN: Discussed with the patient's caregiver treatments and plan. Have the patient follow up with her psychiatrist. Reassuring at this time the UA is negative. We will send up the urine out for culture. Treatments and plans thoroughly discussed. Jason Abarca MD TD/[id number] SSI File#: [id number] END OF DOCUMENT / CHANGE LOG FOLLOWS Last Edited By Elec. Signed By Jason Abarca MD #Jason Alonzo MD #JOSE FRANCISCO on 01/08/2021 09:03 ET on 01/08/2021 09:03 ET Revision Number - 2 [facility] PATIENT NAME: SHARLA JOINER [facility] REC #: [id number] [place] [address] [facility] PHYSICIAN Verified/Reviewed by 01/08/21 Mame FELTON [facility] PATIENT NAME: SHARLA JOINER CarlitaAngelica Janny [facility] MEDICAL REC #: [id number] [place] [address] [facility] PHYSICIAN Normal [facility] Vital Signs Date Time Vital Sign Value Performing Clinician Facility 02-20-2025 11:11-0400 Body height 170.[address] Quincy Rocha Work Phone: [facility] 12-25-2024 20:00-0400 Diastolic blood pressure 64 mm[Hg] Dr. Quincy Rocha Work Phone: 8(848)337-797614 [place] [address] 12-25-2024 20:00-0400 Heart rate 88 /min Dr. Quincy Rocha Work Phone: 9(951)082-357514 [place] [address] 12-25-2024 20:00-0400 SaO2% (BldA) [Mass fraction] 94 % Dr. Quincy Rocha Work Phone: 8(288)861-123814 [place] [address] 12-25-2024 20:00-0400 Systolic blood pressure 119 mm[Hg] Dr. Quincy Rocha Work Phone: 6(110)751-165315 [place] [address] 12-25-2024 19:46-0400 Body temperature 98.6 [degF] Dr. Quincy Rocha Work Phone: 2(939)623-231814 [place] [address] 12-25-2024 19:46-0400 Respiratory rate 14 /min Dr. Quincy Rocha Work Phone: 8(835)235-478614 [place] [address] 12-25-2024 12:29-0400 Body height 170.[address] Quincy Rocha Work Phone: 2(560)420-167115 [place] [address] 12-25-2024 12:29-0400 Body mass index (BMI) [Ratio] 24.2 kg/m2 Dr. Quincy Rocha Work Phone: 8(815)375-913314 [place] [address] 12-25-2024 12:29-0400 Body weight 70.[address] Qunicy Rocha Work Phone: 9(652)085-365614 [place] [address] 07-26-2024 12:09-0500 Body temperature 97.7 [degF] SHAMIKA EARLY MD [facility] 07-26-2024 12:09-0500 Body weight 66.8 kg SHAMIKA EARLY MD [facility] 07-26-2024 12:09-0500 Diastolic Blood Pressure Non-Invasive 75 mm[Hg] SHAMIKA EARLY MD [facility] 07-26-2024 12:09-0500 Heart rate 85 /min SHAMIKA EARLY MD [facility] 07-26-2024 12:09-0500 Respiratory rate 16 /min SHAMIKA EARLY MD [facility] 07-26-2024 12:09-0500 Systolic Blood Pressure Non-Invasive 130 mm[Hg] SHAMIKA EARLY MD [address] [place] [address] 04-09-2024 17:23-0400 Body mass index (BMI) [Ratio] 22.08 kg/m2 Bob Caldwell APRN.SUPERINTENDENT PIER Work Phone: [facility] 04-09-2024 17:23-0400 Body temperature 98.29 [degF] Bob Caldwell APRN.SUPERINTENDENT PIER Work Phone: [facility] 04-09-2024 17:23-0400 Body weight 63.96 kg Bob Caldwell APRN.SUPERINTENDENT PIER Work Phone: [facility] 04-09-2024 17:23-0400 Diastolic blood pressure 84 mm[Hg] Bob Caldwell APRN.SUPERINTENDENT PIER Work Phone: [facility] 04-09-2024 17:23-0400 Heart rate 88 /min Bob Caldwell APRN.SUPERINTENDENT PIER Work Phone: [facility] 04-09-2024 17:23-0400 Respiratory rate 16 /min Bob Caldwell APRN.SUPERINTENDENT PIER Work Phone: [facility] 04-09-2024 17:23-0400 SaO2% (BldA) [Mass fraction] 98 % Bob Caldwell APRN.SUPERINTENDENT PIER Work Phone: [facility] 04-09-2024 17:23-0400 Systolic blood pressure 133 mm[Hg] Bob Caldwell APRN.SUPERINTENDENT PIER Work Phone: [facility] 03-26-2024 15:31-0400 Diastolic blood pressure 80 mm[Hg] Luci Shah MD Work Phone: [employer] 03-26-2024 15:31-0400 Heart rate 88 /min Luci Shah MD Work Phone: [employer] [employer] 03-26-2024 15:31-0400 Respiratory rate 18 /min Luci Shah MD Work Phone: [employer] 03-26-2024 15:31-0400 SaO2% (BldA) [Mass fraction] 95 % Luci Shah MD Work Phone: [employer] [employer] 03-26-2024 15:31-0400 Systolic blood pressure 137 mm[Hg] Luci Shah MD Work Phone: [employer] 03-26-2024 11:00-0400 Body mass index (BMI) [Ratio] 22.71 kg/m2 Luci Shah MD Work Phone: [employer] [employer] 03-26-2024 11:00-0400 Body weight 65.77 kg Luci Shah MD Work Phone: [employer] [employer] 03-26-2024 10:57-0400 Body temperature 97.81 [degF] Luci Shah MD Work Phone: [employer] 03-24-2024 22:47-0400 Heart rate 103 /min Desirae Pocket Concierge Work Phone: [employer] 03-24-2024 22:47-0400 Respiratory rate 16 /min Desirae Pocket Concierge Work Phone: [employer] 03-24-2024 22:47-0400 SaO2% (BldA) [Mass fraction] 97 % Desirae Pocket Concierge Work Phone: [employer] 03-24-2024 21:11-0400 Body height 170.2 cm Desirae Eusebia Work Phone: [employer] 03-24-2024 21:11-0400 Body mass index (BMI) [Ratio] 22.71 kg/m2 Desirae Pocket Concierge Work Phone: [facility] 03-24-2024 21:11-0400 Body temperature 97.3 [degF] Desirae Rosario Work Phone: [facility] 03-24-2024 21:11-0400 Body weight 65.77 kg Desirae Rosario Work Phone: [facility] 03-24-2024 21:11-0400 Diastolic blood pressure 102 mm[Hg] Desirae Rosario Work Phone: [facility] 03-24-2024 21:11-0400 Systolic blood pressure 153 mm[Hg] Desirae Rosario Work Phone: [facility] 03-16-2024 17:01-0400 Body mass index (BMI) [Ratio] 22.24 kg/m2 Arline Guillermo PA-C Work Phone: [facility] 03-16-2024 17:01-0400 Body temperature 99.5 [degF] Arline Guillermo PA-C Work Phone: [facility] 03-16-2024 17:01-0400 Body weight 64.41 kg Arline Guillermo PA-C Work Phone: [facility] 03-16-2024 17:01-0400 Diastolic blood pressure 81 mm[Hg] Arline Guillermo PA-C Work Phone: [facility] 03-16-2024 17:01-0400 Heart rate 100 /min Arline Gulilermo PA-C Work Phone: [facility] 03-16-2024 17:01-0400 Respiratory rate 15 /min Arline Dotyky PA-C Work Phone: [facility] 03-16-2024 17:01-0400 SaO2% (BldA) [Mass fraction] 96 % Alrine Guillermo PA-C Work Phone: [facility] 03-16-2024 17:01-0400 Systolic blood pressure 126 mm[Hg] Arline Guillermo PA-C Work Phone: [facility] 12-23-2023 11:42-0400 Body temperature 98.8 [degF] Corral Fisher DO Work Phone: [facility] [employer] 12-23-2023 11:42-0400 Diastolic blood pressure 85 mm[Hg] Corral Fisher DO Work Phone: [facility] [employer] 12-23-2023 11:42-0400 Heart rate 81 /min Corral Fisher DO Work Phone: [facility] 12-23-2023 11:42-0400 Respiratory rate 18 /min Corral Fisher DO Work Phone: [facility] 12-23-2023 11:42-0400 SaO2% (BldA) [Mass fraction] 98 % Corral Fisher DO Work Phone: [facility] [employer] 12-23-2023 11:42-0400 Systolic blood pressure 145 mm[Hg] Corral Fisher DO Work Phone: [facility] 11-24-2023 15:55-0400 Body mass index (BMI) [Ratio] 20.18 kg/m2 Sia Josh-Eibara STROKE PROGRAM COORDINATOR.SUPERINTENDENT PIER Work Phone: [facility] 11-24-2023 15:55-0400 Body temperature 98.29 [degF] Sia Josh-Eibara STROKE PROGRAM COORDINATOR.SUPERINTENDENT PIER Work Phone: [facility] 11-24-2023 15:55-0400 Body weight 56.7 kg Sia Josh-Eibara STROKE PROGRAM COORDINATOR.SUPERINTENDENT PIER Work Phone: [facility] 11-24-2023 15:55-0400 Heart rate 94 /min Sia Josh-Eibara STROKE PROGRAM COORDINATOR.SUPERINTENDENT PIER Work Phone: [facility] 11-24-2023 15:55-0400 Respiratory rate 18 /min Sia Josh-Eibara STROKE PROGRAM COORDINATOR.SUPERINTENDENT PIER Work Phone: [facility] 11-24-2023 15:55-0400 SaO2% (BldA) [Mass fraction] 98 % Sia Weinstein APRN.SUPERINTENDENT PIER Work Phone: [facility] 08-11-2023 17:51-0500 Body weight 60.24 kg Johanthon Rivas DO Work Phone: [facility] [employer] 08-11-2023 17:46-0500 Body temperature 98.2 [degF] Laurigladis [place] DO Work Phone: [facility] [employer] 08-11-2023 17:46-0500 Diastolic blood pressure 85 mm[Hg] Laurigladis [place] DO Work Phone: [facility] [employer] 08-11-2023 17:46-0500 Heart rate 71 /min Laurigladis Skyla DO Work Phone: [facility] [employer] 08-11-2023 17:46-0500 Respiratory rate 18 /min Frankihilda [place] DO Work Phone: [facility] [employer] 08-11-2023 17:46-0500 SaO2% (BldA) [Mass fraction] 97 % Johnathon Rivas DO Work Phone: [facility] [employer] 08-11-2023 17:46-0500 Systolic blood pressure 134 mm[Hg] Laurigladis [place] DO Work Phone: [facility] 05-28-2023 16:28-0500 Body temperature 97.34 [degF] DR MICHELE JACKSON DO [facility] 05-28-2023 16:28-0500 Diastolic Blood Pressure Non-Invasive [address] MICHELE JACKSON DO [facility] 05-28-2023 16:28-0500 Heart rate 75 /min DR MICHELE JACKSON DO [facility] 05-28-2023 16:28-0500 Respiratory rate 16 /min DR MICHELE JACKSON DO [facility] 05-28-2023 16:28-0500 Systolic Blood Pressure Non-Invasive [address] MICHELE JACKSON DO [facility] 05-28-2023 12:41-0500 Body weight 57.[address] MICHELE JCAKSON DO [facility] 05-28-2023 12:41-0500 Diastolic Blood Pressure Non-Invasive [address] MICHELE JACKSON DO [facility] 05-28-2023 12:41-0500 Heart rate 79 /min DR MICHELE JACKSON DO [facility] 05-28-2023 12:41-0500 Respiratory rate 17 /min DR MICHELE JACKSON DO [facility] 05-28-2023 12:41-0500 Systolic Blood Pressure Non-Invasive [address] MICHELE JACKSON DO [facility] 05-28-2023 10:06-0500 Body temperature 98.71 [degF] Jason Abarca MD Work Phone: [facility] 05-28-2023 10:06-0500 Body weight 56.7 kg Jason Abarca MD Work Phone: [facility] 05-28-2023 10:06-0500 Diastolic blood pressure 88 mm[Hg] Jason Abarca MD Work Phone: [facility] 05-28-2023 10:06-0500 Heart rate 77 /min Jason Abarca MD Work Phone: [facility] 05-28-2023 10:06-0500 Respiratory rate 16 /min Jason Abarca MD Work Phone: [facility] 05-28-2023 10:06-0500 SaO2% (BldA) [Mass fraction] 98 % Jason Abarca MD Work Phone: [facility] 05-28-2023 10:06-0500 Systolic blood pressure 129 mm[Hg] Jason Abarca MD Work Phone: [facility] 01-15-2023 15:05-0400 Body temperature 98.6 [degF] PARI LARSEN MD FACP [address] [place] [address] 01-15-2023 15:05-0400 Diastolic Blood Pressure Non-Invasive 68 1 PARI LARSEN MD FACP [address] [place] [address] 01-15-2023 15:05-0400 Heart rate 60 /min PARI LARSEN MD FACP [address] [place] [address] 01-15-2023 15:05-0400 Reason For Taking VItal Signs PARI LARSEN MD FACP [address] [place] [address] 01-15-2023 15:05-0400 Respiratory rate 18 /min PARI LARSEN MD FACP [address] [place] [address] 01-15-2023 15:05-0400 Systolic Blood Pressure Non-Invasive 124 1 PARI LARSEN MD FACP [address] [place] [address] 01-15-2023 10:20-0400 Blood Pressure Cuff Size PARI LARSEN MD FACP [address] [place] [address] 01-15-2023 10:20-0400 Blood Pressure Location PARI LARSEN MD FACP [address] [place] [address] 01-15-2023 10:20-0400 Blood Pressure Method PARI LARSEN MD FACP [address] [place] [address] 01-15-2023 10:20-0400 Body temperature 98.42 [degF] PARI LARSEN MD FACP [address] [place] [address] 01-15-2023 10:20-0400 Diastolic Blood Pressure Non-Invasive 45 1 PARI LARSEN MD FACP [address] [place] [address] 01-15-2023 10:20-0400 Heart rate 63 /min PARI LARSEN MD FACP [address] [place] [address] 01-15-2023 10:20-0400 Reason For Taking VItal Signs PARI LARSEN MD FACP [address] [place] [address] 01-15-2023 10:20-0400 Respiratory rate 22 /min PARI LARSEN MD FACP [address] [place] [address] 01-15-2023 10:20-0400 Systolic Blood Pressure Non-Invasive 88 1 PARI LARSEN MD FACP [address] [place] [address] 01-15-2023 06:20-0400 Body temperature 99.5 [degF] PARI LARSEN MD FACP [address] [place] [address] 01-15-2023 06:20-0400 Diastolic Blood Pressure Non-Invasive 33 1 PARI LARSEN MD FACP [address] [place] [address] 01-15-2023 06:20-0400 Heart rate 47 /min PARI LARSEN MD FACP [address] [place] [address] 01-15-2023 06:20-0400 Respiratory rate 18 /min PARI LARSEN MD FACP [address] [place] [address] 01-15-2023 06:20-0400 Systolic Blood Pressure Non-Invasive 82 1 PARI LARSEN MD FACP [address] [place] [address] 01-14-2023 23:43-0400 Reason For Taking VItal Signs PARI LARSEN MD FACP [address] [place] [address] 01-14-2023 17:31-0400 Blood Pressure Cuff Size PARI LARSEN MD FACP [address] [place] [address] 01-14-2023 17:31-0400 Blood Pressure Location PARI LRASEN MD FACP [address] [place] [address] 01-14-2023 17:31-0400 Blood Pressure Method PARI LARSEN MD FACP [address] [place] [address] 01-14-2023 17:31-0400 Heart rate 70 /min PARI LARSEN MD FACP [address] [place] [address] 01-14-2023 14:32-0400 Blood Pressure Cuff Size PARI LARSEN MD FACP [address] [place] [address] 01-14-2023 14:32-0400 Blood Pressure Location PARI LARSEN MD FACP [address] [place] [address] 01-14-2023 14:32-0400 Blood Pressure Method PARI LARSEN MD FACP [address] [place] [address] 01-14-2023 14:32-0400 Heart rate 58 /min PARI LARSEN MD FACP [address] [place] [address] 01-14-2023 10:37-0400 Heart rate 52 /min PARI LARSEN MD FACP [address] [place] [address] 01-13-2023 23:34-0400 Mean blood pressure 59 mm[Hg] PARI LARSEN MD FACP [address] [place] [address] 01-12-2023 03:00-0400 Heart rate 85 /min PARI LARSEN MD FACP [address] [place] [address] 01-11-2023 10:22-0400 Body temperature 98.06 [degF] PARI LARSEN MD FACP [address] [place] [address] 01-11-2023 07:57-0400 Body temperature 97.7 [degF] PARI LARSEN MD FACP [address] [place] [address] 01-11-2023 06:52-0400 Body temperature 99.5 [degF] PARI LARSEN MD FACP [address] [place] [address] 01-06-2023 15:37-0400 Mean blood pressure 74 mm[Hg] PARI LARSEN MD FACP [address] [place] [address] 01-05-2023 14:35-0400 Body height 170.2 cm PARI LARSEN MD FACP [address] [place] [address] 01-05-2023 14:35-0400 Body weight 57.1 kg PARI LARSEN MD FACP [address] [place] [address] 01-05-2023 14:35-0400 Body weight 19.71 kg/m2 PARI LARSEN MD FACP [address] [place] [address] 01-05-2023 13:40-0400 Body temperature 98.24 [degF] PARI LARSEN MD FACP [address] [place] [address] 01-05-2023 13:40-0400 Mean blood pressure 74 mm[Hg] PARI LARSEN MD FACP [address] [place] [address] 01-05-2023 13:27-0400 Body temperature 98.24 [degF] PARI LARSEN MD FACP [address] [place] [address] 01-05-2023 12:27-0400 Body temperature 97.88 [degF] PARI LARSEN MD FACP [address] [place] [address] 01-05-2023 12:25-0400 Respiratory Rate - Anes 0 br/min PARI LARSEN MD FACP [address] [place] [address] 01-05-2023 12:20-0400 Respiratory Rate - Anes 20 br/min PARI LARSEN MD FACP [address] [place] [address] 01-05-2023 12:15-0400 Body temperature 98.6 [degF] PARI LARSEN MD FACP [address] [place] [address] 01-05-2023 12:15-0400 Respiratory Rate - Anes 10 br/min PARI LARSEN MD FACP [address] [place] [address] 01-05-2023 12:10-0400 Body temperature 98.6 [degF] PARI LARSEN MD FACP [address] [place] [address] 01-05-2023 12:05-0400 Body temperature 98.6 [degF] PARI LARSEN MD FACP [address] [place] [address] 01-04-2023 18:40-0400 Body weight 57.1 kg PARI LARSEN MD FACP [address] [place] [address] 12-14-2022 13:42-0400 Body temperature 97.3 [degF] Floyd Donald DO Work Phone: [facility] 12-14-2022 13:42-0400 Body weight 56.7 kg Floyd Shabana DO Work Phone: [facility] 12-14-2022 13:42-0400 Diastolic blood pressure 52 mm[Hg] Floyd Shabana DO Work Phone: [facility] 12-14-2022 13:42-0400 Heart rate 81 /min Sycamore Shabana DO Work Phone: [facility] 12-14-2022 13:42-0400 Respiratory rate 20 /min Floyd Shabana DO Work Phone: [facility] 12-14-2022 13:42-0400 SaO2% (BldA) [Mass fraction] 97 % Floyd Shabana DO Work Phone: [facility] 12-14-2022 13:42-0400 Systolic blood pressure 113 mm[Hg] Sycamore Shabana DO Work Phone: [facility] 11-10-2022 11:32-0400 Body height 167.6 cm Giuliana Carson STROKE PROGRAM COORDINATOR.SUPERINTENDENT PIER Work Phone: [facility] 11-10-2022 11:32-0400 Body weight 61.24 kg Giuliana Carson STROKE PROGRAM COORDINATOR.SUPERINTENDENT PIER Work Phone: [facility] 08-28-2022 14:46-0500 Body temperature 97.7 [degF] FRANSISCO PERRY MD [facility] 08-28-2022 14:46-0500 Diastolic Blood Pressure Non-Invasive 60 1 FRANSISCO PERRY MD [facility] 08-28-2022 14:46-0500 Heart rate 73 /min FRANSISCO PERRY MD [facility] 08-28-2022 14:46-0500 Respiratory rate 18 /min FRANSISCO PERRY MD [facility] 08-28-2022 14:46-0500 Systolic Blood Pressure Non-Invasive 92 1 FRANSISCO PERRY MD [address] [place] [address] 08-28-2022 07:22-0500 Body temperature 97.34 [degF] FRANSISCO PERRY MD [address] [place] [address] 08-28-2022 07:22-0500 Diastolic Blood Pressure Non-Invasive 58 1 FRANSISCO PERRY MD [address] [place] [address] 08-28-2022 07:22-0500 Heart rate 90 /min FRANSISCO PERRY MD [address] [place] [address] 08-28-2022 07:22-0500 Respiratory rate 16 /min FRANSISCO PERRY MD [address] [place] [address] 08-28-2022 07:22-0500 Systolic Blood Pressure Non-Invasive 135 1 FRANSISCO PERRY MD [address] [place] [address] 08-27-2022 21:31-0500 Heart rate 100 /min FRANSISCO PERRY MD [address] [place] [address] 08-27-2022 21:31-0500 Respiratory rate 16 /min FRANSISCO PERRY MD [address] [place] [address] 08-27-2022 21:12-0500 Body temperature 97.7 [degF] FRANSISCO PERRY MD [address] [place] [address] 08-27-2022 21:12-0500 Diastolic Blood Pressure Non-Invasive 71 1 FRANSISCO PERRY MD [address] [place] [address] 08-27-2022 21:12-0500 Heart rate 107 /min FRANSISCO PERRY MD [address] [place] [address] 08-27-2022 21:12-0500 Systolic Blood Pressure Non-Invasive 136 1 FRANSISCO PERRY MD [address] [place] [address] 08-26-2022 07:39-0500 Heart rate 76 /min FRANSISCO PERRY MD [address] [place] [address] 08-26-2022 07:39-0500 Reason For Taking VItal Signs FRANSISCO PERRY MD [address] [place] [address] 08-25-2022 20:37-0500 Reason For Taking VItal Signs FRANSISCO PERRY MD [facility] 08-25-2022 14:44-0500 Reason For Taking VItal Signs FRANSISCO PERRY MD [facility] 08-23-2022 22:54-0500 Heart rate 92 /min ANS ORLANDO WILLIAM [facility] 08-23-2022 19:01-0500 Heart rate 91 /min ANS OR[place]O WILLIAM [facility] 08-23-2022 16:47-0500 Heart rate 76 /min FRANSISCO PERRY MD [facility] 07-15-2021 21:15-0500 Diastolic blood pressure 64 mm[Hg] MAIK DOVER MD [facility] 07-15-2021 21:15-0500 Heart rate 74 /min MAIK DOVER MD [facility] 07-15-2021 21:15-0500 Respiratory rate 18 /min MAIK DOVER MD [facility] 07-15-2021 21:15-0500 Systolic blood pressure 110 mm[Hg] MAIK DOVER MD [facility] 07-15-2021 19:17-0500 Diastolic blood pressure 72 mm[Hg] MAIK DOVER MD [facility] 07-15-2021 19:17-0500 Heart rate 102 /min MAIK DOVER MD [facility] 07-15-2021 19:17-0500 Reason For Taking VItal Signs MAIK DOVER MD [facility] 07-15-2021 19:17-0500 Respiratory rate 16 /min MAIK DOVER MD [facility] 07-15-2021 19:17-0500 Systolic blood pressure 116 mm[Hg] MAIK DOVER MD [facility] 07-15-2021 14:58-0500 Body temperature 96.98 [degF] MAIK DOVER MD [facility] 07-15-2021 14:58-0500 Diastolic blood pressure 85 mm[Hg] MAIK DOVER MD [facility] 07-15-2021 14:58-0500 Heart rate 80 /min MAIK DOVER MD [facility] 07-15-2021 14:58-0500 Respiratory rate 20 /min MAIK DOVER MD [facility] 07-15-2021 14:58-0500 Systolic blood pressure 126 mm[Hg] MAIK DOVER MD [facility] 07-15-2021 11:28-0500 Body temperature 98.42 [degF] MAIK DOVER MD [facility] 07-15-2021 11:28-0500 Body weight 73.7 kg MAIK DOVER MD [facility] 07-14-2021 13:26-0500 Body temperature 97.88 [degF] AMADOR KRAMER PA-C [facility] 07-14-2021 13:26-0500 Body weight 72 kg AMADOR KRAMER PA-C [facility] 07-14-2021 13:26-0500 Diastolic blood pressure 93 mm[Hg] AMADOR KRAMER PA-C [facility] 07-14-2021 13:26-0500 Heart rate 96 /min AMADOR KRAMER PA-C [facility] 07-14-2021 13:26-0500 Respiratory rate 18 /min AMADOR KRAMER PA-C [facility] 07-14-2021 13:26-0500 Systolic blood pressure 131 mm[Hg] AMADOR KRAMER PA-C [facility] 2021 15:59-0500 Body temperature 97.7 [degF] YINKA DIAZ MD [facility] 2021 15:59-0500 Diastolic blood pressure 75 mm[Hg] YINKA DIAZ MD [facility] 2021 15:59-0500 Heart rate 111 /min YINKA DIAZ MD [facility] 2021 15:59-0500 Mean blood pressure 94 mm[Hg] YINKA DIAZ MD [facility] 2021 15:59-0500 Respiratory rate 18 /min YINKA DIAZ MD [facility] 2021 15:59-0500 Systolic blood pressure 132 mm[Hg] YINKA DIAZ MD [facility] 07-03-2021 19:43-0500 Body temperature 99.5 [degF] MIGUEL ANGEL PARKER MD [facility] 07-03-2021 19:43-0500 Body weight 74.3 kg MIGUEL ANGEL PARKER MD [facility] 07-03-2021 19:43-0500 Diastolic blood pressure 80 mm[Hg] MIGUEL ANGEL PARKER MD [facility] 07-03-2021 19:43-0500 Heart rate 93 /min MIGUEL ANGEL PARKER MD [facility] 07-03-2021 19:43-0500 Respiratory rate 20 /min MIGUEL ANGEL PARKER MD [facility] 07-03-2021 19:43-0500 Systolic blood pressure 120 mm[Hg] MIGUEL ANGEL PARKER MD [facility] Encounters Encounter Date Encounter Type Care Provider Facility Start: 03-05-2025 End: 03-05-[address] Wojciech Gonzalez MD [facility] Start: 03-05-2025 End: 03-05-[address] Quincy Rocha Work Phone: -[facility] Start: 12-27-2024 End: 01-07-2025 Evaluation and management of inpatient DESIRAE JONESSHER Facility:[id number] Start: 12-25-2024 End: 12-25-2024 Emergency department patient visit Dr. Quincy Rocha Work Phone: -Emergency Department Work Phone: Start: 12-03-2024 End: 12-20-2024 Evaluation and management of inpatient DESIRAE ROSARIO Facility:[id number] Start: 12-02-2024 End: 12-03-2024 Emergency department patient [...] Patient encounter procedure PHY WO ID REFERRING [facility] Start: 07-26-2024 End: 07-26-2024 Emergency department patient visit STORM MURRAY APRN-SUPERINTENDENT PIER Facility:A Start: 07-26-2024 End: 07-26-2024 Emergency department patient visit SHAMIKA EARLY MD [facility] Start: 05-07-2024 End: 05-07-2024 Telephone encounter Lisette Jesus PA-C Work Phone: [facility] Comment on above: Missed Appointment ( 05/01/24 3:00 PM missed new patient appointment /) Start: 04-09-2024 End: 04-09-2024 Office outpatient visit 15 minutes Bob Caldwell APRN.SUPERINTENDENT PIER Work Phone: [facility] [place] Comment on above: UTI symptoms (Primar y Dx) Start: 04-09-2024 End: 04-09-2024 ambulatory DESIRAE ROSARIO Facility:[id number] Start: 03-26-2024 End: 03-26-2024 Subsequent hospital visit by physician [facility] Ed [facility] Exam Room [address] [facility] [address] Imaging Comment on above: Arrived Start: 03-26-2024 End: 03-26-2024 Emergency department patient visit Luci Shah MD Work Phone: [facility] Emergency [facility] Comment on above: Abdominal pain, gene ralized (Primary Dx); Agitation; Autistic disorder Start: 03-24-2024 End: 03-24-2024 Emergency department patient visit DESIRAE ROSARIO [facility] Comment on above: Bilateral impacted c erumen (Primary Dx); Left otitis media, unspecified otitis media type Start: 03-16-2024 End: 03-16-2024 Patient encounter procedure Arline Guillermo PA-C Work Phone: [facility] Comment on above: Left otitis media, u nspecified otitis media type (Primary Dx) Start: 03-16-2024 End: 03-16-2024 ambulatory SELF Facility:[id number] Start: 01-25-2024 Telephone encounter Kymberly burgess DMD Work Phone: Dentistry Comment on above: Patient Update Start: 01-24-2024 End: 01-24-2024 Orders Only Israel Reis DMD Work Phone: Dentistry Start: 01-23-2024 Orders Only Lesa Rowland DDS Work Phone: Dentistry Comment on above: Facial cellulitis (P rimary Dx) Start: 01-23-2024 Patient encounter status Israel Chato DMD Work Phone: [facility] Work Phone: Start: 01-20-2024 End: 01-20-2024 Emergency department patient visit ZAID MARIE III Facility:[id number] Start: 01-17-2024 End: 01-17-2024 ambulatory [facility] Facility:[id number] Start: 01-17-2024 Encounter for dental examination and cleaning without abnormal findings [facility] Start: 01-17-2024 End: 01-17-2024 Patient encounter procedure Jeff Ambriz DDS Work Phone: Dentistry Comment on above: Encounter for dental examination (Primary Dx) Start: 01-17-2024 End: 01-17-2024 Patient encounter status Jeff Ambriz DDS Work Phone: [facility] Work Phone: Start: 12-29-2023 End: 12-29-2023 ambulatory DESIRAE ROSARIO MD Facility:A Start: 12-23-2023 End: 12-23-2023 Emergency department patient visit CORRAL EUSEBIA [facility] Comment on above: Dermatitis of ear ca nal, bilateral (Primary Dx); Impacted cerumen of right ear; Cerumen in auditory canal on examination Start: 11-25-2023 Patient encounter procedure [facility] Provider [facility] Department Start: 11-24-2023 End: 11-24-2023 Patient encounter procedure Sia Weinstein APRN.SUPERINTENDENT PIER Work Phone: [facility] Comment on above: Hematuria, unspecifi ed type (Primary Dx); Ear pain, bilateral; Impacted cerumen of right ear Start: 08-11-2023 End: 08-11-2023 Subsequent hospital visit by physician [facility] Ed Ct Exam Room [address] [facility] [address] Imaging Comment on above: Arrived Start: 08-11-2023 End: 08-11-2023 Emergency department patient visit Johnathon Rivas DO Work Phone: [facility] [employer] Emergency Dept Comment on above: Head injury, initial encounter (Primary Dx) Start: 05-28-2023 End: 05-28-2023 Emergency department patient visit DR MICHELE JACKSON DO [facility] Start: 05-28-2023 End: 05-28-2023 Patient encounter procedure Jason Abarca MD Work Phone: [facility] Comment on above: Dysuria (Primary Dx) ; Cognitive and behavioral changes Start: 04-07-2023 ambulatory ZAID HERNÁNDEZ III Facility:[facility] Start: 04-07-2023 End: 04-07-2023 Subsequent hospital visit by physician Gi/Gu [facility] Comment on above: Arrived Start: 01-04-2023 End: 01-15-2023 Evaluation and management of inpatient PARI LARSEN MD FACP [facility] Start: 12-14-2022 End: 12-14-2022 Office outpatient visit 15 minutes Floyd Donald Work Phone: [facility] [place] Comment on above: Bite (Primary Dx) Start: 11-15-2022 End: 11-15-2022 Subsequent hospital visit by physician [facility] 3 [facility] Comment on above: Gross hematuria [R31 .0] Start: 11-10-2022 End: 11-10-2022 Patient encounter procedure Giuliana Carson APRN.SUPERINTENDENT PIER Work Phone: Urology Comment on above: Sensory urge inconti nence (Primary Dx); Gross hematuria Start: 10-29-2022 End: 10-29-2022 Subsequent hospital visit by physician [facility] 1 [facility] Comment on above: Pelvic and perineal pain [R10.2] Start: 08-23-2022 End: 08-28-2022 Evaluation and management of inpatient ANS [place]O WILLIAM [facility] Start: 07-15-2021 End: 07-15-2021 Emergency department patient visit MAIK DOVER MD [facility] Start: 07-14-2021 End: 07-14-2021 Emergency department patient visit AMADOR KRAMER PA-C [facility] Start: 2021 End: 2021 Emergency department patient visit YINKA DIAZ MD [facility] Start: 07-07-2021 Patient encounter procedure Jason Abarca MD Work Phone: [facility] Start: 07-07-2021 Progress Note Jason hardy MD Work Phone: [facility] Start: 07-03-2021 End: 07-03-2021 Emergency department patient visit MIGUEL ANGEL PARKER MD [facility] Start: 07-03-2021 End: 07-03-2021 Subsequent hospital visit by physician [facility] Provider [facility] Comment on above: URINARY BURNING,CONF USION Start: 05-19-2016 End: 05-20-2016 ambulatory PRAVEEN S KETTY [facility] [place] Procedures Date Procedure Procedure Detail Performing [...] test visual color cmprsn meths Bob Javi STROKE PROGRAM COORDINATOR.SUPERINTENDENT PIER Work Phone: Start: 03-26-2024 Ct abdomen & pelvis w/o contrast material Leigha Siegel STROKE PROGRAM COORDINATOR - SUPERINTENDENT PIER Work Phone: Start: 03-26-2024 SARS-COV-2, FLU A/B, AND RSV COMBO Leigha Siegel STROKE PROGRAM COORDINATOR - SUPERINTENDENT PIER Work Phone: Start: 03-26-2024 Urinalysis complete panel - Urine Leigha Siegel STROKE PROGRAM COORDINATOR - SUPERINTENDENT PIER Work Phone: Start: 03-26-2024 Urnls dip stick/tabl et reagent auto microscopy Leigha Siegel STROKE PROGRAM COORDINATOR - SUPERINTENDENT PIER Work Phone: Start: 03-26-2024 Comprehensive metabo lic panel Leigha Siegel STROKE PROGRAM COORDINATOR - SUPERINTENDENT PIER Work Phone: Start: 03-26-2024 Ecg routine ecg w/le ast 12 lds trcg only w/o i&r Leigha Siegel STROKE PROGRAM COORDINATOR - SUPERINTENDENT PIER Work Phone: Start: 01-17-2024 LIMITED ORAL EVALUAT ION - PROBLEM FOCUSED Kymberly Mckenzie Nachodiane DMD Work Phone: Start: 11-24-2023 Urnls dip stick/tabl et rgnt auto w/o microscopy Sia Weinstein STROKE PROGRAM COORDINATOR.SUPERINTENDENT PIER Work Phone: Start: 08-11-2023 Ct head/brain w/o co ntrast material Laurigladis Skyla DO Work Phone: Start: 04-07-2023 Radiologic exam esop hagus single contrast study Desirae Rosario MD Work Phone: Start: 11-15-2022 Us retroperitoneal r eal time w/image complete Giuliana Carson APRN.SUPERINTENDENT PIER Work Phone: Start: 11-10-2022 Urnls dip stick/tabl et rgnt auto w/o microscopy Giuliana Carson STROKE PROGRAM COORDINATOR.SUPERINTENDENT PIER Work Phone: Start: 10-29-2022 Us pelvic nonobstetr ic real-time image complete [facility] Provider None (qualifier value) MIGUEL ANGEL PARKER MD Plan of Treatment Date Care Activity Detail Author Start: 2052 RSV Immunization for Adults (1 - 1-dose 75+ series) RSV Immunization for Adults (1 - 1-dose 75+ series) [facility] Start: 2037 RSV Immunization age d 60 or older (1 - 1-dose 60+ series) RSV Immunization aged 60 or older (1 - 1-dose 60+ series) [facility] Start: 07-03-2032 DTaP/Tdap/Td Vaccine s (2 - Td or Tdap) DTaP/Tdap/Td Vaccines (2 - Td or Tdap) [facility] Start: 07-03-2032 Urine microalbumin profile DTaP,Tdap,Td Vaccine (2 - Td or Tdap) [facility] Start: 2027 Zoster Vaccines (1 of 2) Zoste r Vaccines (1 of 2) [facility] Start: 03-26-2027 Diabetes Screening Diabetes Screenin [facility] Start: 01-19-2027 Diabetes Screening Diabetes Screenin g [facility] Start: 03-05-2025 End: 03-05-2025 Plain x-ray of wrist [facility] Start: 03-05-2025 XR Wrist GE 3 Views Mota ster [facility] Start: 03-05-2025 XR Wrist 2 Views oste [facility] Start: 12-25-2024 [facility] Start: 12-25-2024 [facility] Start: 12-25-2024 Bacteria identified in Urine by Culture Urine Culture [facility] Start: 07-09-2024 End: 07-09-2024 Patient encounter procedure 07/09/2024 3:30 PM EST Office Visit Dentistry [address] [place] [address] Willy Noriega DDS [address] [place] [address] Comp Exam $3 Dentistry Comment on above: Comp Exam $3 Start: 03-18-2024 COVID-19 Vaccine ( season) COVID-19 Vaccine ( season) [facility] Start: 03-18-2024 Covid-19 Vaccine ( season) Covid-19 Vaccine ( season) [facility] Start: 03-18-2024 Influenza vaccination C [facility] Start: 01-24-2024 End: 01-24-2024 Admission to same day surgery center 01/24/2024 1:00 PM EDT - 01/24/2024 3:20 PM EDT Surgery [facility] [address] [place] [address] Kymberly Sethi, DMD [address] [place] [address] [facility] Comment on above: [facility] Start: 01-24-2024 Subsequent hospital visit by physician 01/24/2024 1:00 PM EDT Hospital Encounter [facility] [address] [address] Kymberly Sethi, DMD [address] [place] [address] Facial cellulitis [L03.211] [facility] Comment on above: Facial cellulitis [L 03.211] Start: 01-24-2024 End: 01-24-2024 Unlisted procedure dentoalveolar structures MR OR Start: 07-18-2023 Behavioral Health Screening Behavioral Health Screening [facility] Start: 03-18-2023 Covid-19 Vaccine () Covid-19 Vaccine () [facility] Start: 03-18-2023 Influenza vaccination C [facility] Start: 07-18-2022 DEPRESSION ASSESSMENT DEPRESSION ASS ESSMENT [facility] Start: 2022 COLOGUARD (FIT-DNA) COLOGUARD (FIT-D NA) [facility] Start: 2022 Colonoscopy COLONOSCOPY [facility] Start: 2022 COLORECTAL CANCER SCREENING COLORECTAL CANCER SCREENING [facility] Start: [address] COLONOGRAPHY [facility] Start: 2022 DIABETES SCREEN DIABETES SCREEN [facility] Start: 2022 Diabetes Screening Diabetes Screenin g [facility] Start: 2022 FECAL OCCULT BLOOD FECAL OCCULT BLOO D [facility] Start: 2022 Lipid 1996 panel - S deny or Plasma Lipid Screening [facility] Start: 2022 Lipid panel Lipid Screening [facility] Start: 2022 LIPID SCREEN LIPID SCREEN [facility] Start: 2022 Screening for malign ant neoplasm of colon [facility] Start: 2022 [facility]OS[facility] Start: 03-18-2022 Influenza vaccination INFLUENZ A (Season Ended) [facility] Start: 09-07-2021 COVID-19 VACCINE (4 - Booster for Pfizer series) COVID-19 VACCINE (4 - Booster for Pfizer series) [facility] Start: 09-07-2021 Covid-19 Vaccine (4 - Pfizer series) Covid-19 Vaccine (4 - Pfizer series) [facility] Start: 03-18-2021 Influenza vaccination INFLUENZA (#1) [facility] Start: 2017 Mammography [facility] Start: 2017 Screening for malign ant neoplasm of breast [facility] Start: 2007 HPV TESTING HPV TESTING [facility] Start: 2007 Screening for malign ant neoplasm of cervix [facility] Start: 1998 PAP TESTING PAP TESTING [facility] Start: 1998 Screening for malign ant neoplasm of cervix [facility] Start: 1996 Hepatitis B Vaccine (1 of 3 - 19+ 3-dose series) Hepatitis B Vaccine (1 of 3 - 19+ 3-dose series) [facility] Start: 1996 Hepatitis B Vaccines (1 of 3 - 19+ 3-dose series) Hepatitis B Vaccines (1 of 3 - 19+ 3-dose series) [facility] Start: 1996 Urine microalbumin profile [facility] Start: 1995 Anxiety Screening Anxiety Screening [facility] Start: 1995 Depression Screening Depression Scre ening [facility] Start: 1995 HEPATITIS C SCREENING HEPATITIS C [facility] Start: 1995 Hepatitis C screening Hepatitis C [facility] Start: 1995 HIV SCREENING HIV SCREENING [facility] Start: 1995 HIV screening HIV Screening [facility] Start: 1989 Adult depression screening assessment DEPRESSION SCREENING [facility] Start: 1982 COVID-19 VACCINE (#1) COVID-19 VACCI NE (#1) [facility] Start: 1982 COVID-19 VACCINE (1) COVID-19 VACCIN E (1) [facility] Start: 1978 MMR Vaccines (1 of 1 - Standard series) MMR Vaccines (1 of 1 - Standard series) [facility] Start: 1977 HEPATITIS B (1 of 3 - 3-dose series) HEPATITIS B (1 of 3 - 3-dose series) [facility] Start: 1977 Hepatitis B Vaccine (1 of 3 - 3-dose series) Hepatitis B Vaccine (1 of 3 - 3-dose series) [facility] Start: 1977 Hepatitis B Vaccines (1 of 3 - 3-dose series) Hepatitis B Vaccines (1 of 3 - 3-dose series) [facility] Start: 1977 HIV screening HIV Screening [facility] Start: 1977 Screening for malign ant neoplasm of colon [facility] Bacteria identified in Urine by Culture URINE CULTURE Microbiology Routine Hematuria, unspecified type 11/24/2023 4:27 PM EDT [facility] Work Phone: Bacteria identified in Urine by Culture URINE CULTURE Microbiology Routine UTI symptoms 04/09/2024 5:34 PM EDT [facility] Work Phone: Patient Education ED ALOC ED Cys titis Female Adult [facility] Work Phone: Patient referral [facility] Work Phone: Urine culture [facility] End: 12-10-2023 US KIDNEY/BLADDER US KIDNEY/BLADDER Radiology Routine Gross hematuria 1 Occurrences starting 11/10/2022 until 12/10/2023 [facility] Work Phone: Comment on above: 1 Occurrences starti ng 11/10/2022 until 12/10/2023 [facility] Immunizations Immunization Date Immunization Notes Care Provider Medina rodriguez 07-03-2022 tetanus toxoid, redu yehuda diphtheria toxoid, and acellular pertussis vaccine, adsorbed; Translations: [Boostrix (Tdap)] FRANSISCO PERRY MD [facility] 07-13-2021 SARS-CoV-2 mRNA (tozinameran) vaccine FRANSISCO PERRY MD [facility] 08-22-2020 SARS-CoV-2 mRNA (tozinameran) vaccine FRANSISCO PERRY MD [facility] 08-01-2020 SARS-CoV-2 mRNA (tozinameran) vaccine FRANSISCO PERRY MD [facility] 07-09-2020 influenza virus vaccine, unspecified formulation FRASNISCO PERRY MD [facility] 07-09-2020 influenza, injectabl e, quadrivalent, contains preservative Corral Fisher DO Work Phone: [facility] 04-15-2018 influenza virus vaccine, unspecified formulation FRANSISCO PERRY MD [facility] 04-15-2018 influenza, injectabl e, quadrivalent, preservative free Corral Fisher DO Work Phone: [facility] 04-18-2017 influenza virus vaccine, unspecified formulation FRANSISCO PERRY MD [facility] 04-18-2017 influenza, injectabl e, quadrivalent, preservative free Corral Fisher DO Work Phone: [facility] 05-03-2014 influenza virus vaccine, unspecified formulation FRANSISCO PERRY MD [facility] 05-03-2014 influenza, live, intranasal, quadrivalent Corral Fisher DO Work Phone: [facility] Payers Date Payer Category Payer Self-pay 2023 Unknown DENTAL [facility] DENTAL [id number] 2023-Present [phone] [address] [place] [address] Dental [id number] 16512.[facility] 2018 Medicare [id number] 75165.[facility] 2018 Medicare [id number] 2016 Medicaid MEDICAID [facility] MEDICAID [id number] 2016-Present [phone] [address] [place] [address] Medicaid [id number] 99083.[facility] 2016 Medicaid [id number] 07386.[facility] 2016 Medicaid [id number] 1977 Unknown [id number] 1977 Unknown [id number] [id number] 1977 Unknown [id number] [id number] 1977 Unknown [id number] [id number] 1977 Unknown [id number] 2.16840.1.813315.3.579.2. 1977 Unknown [id number] 2.16840.1.467354.3.579.2. 1977 Unknown [id number] 2.840.1.125365.3.579.2. 1977 Unknown [id number] 2.16840.1.060524.3.579.2. 1977 Unknown [id number] 2.840.1.348293.3.579.2. 1977 Unknown [id number] [id number] 1977 Unknown [id number] [id number] Unknown [id number] Unknown [id number] [id number] Unknown [id number] [id number] Unknown [id number] Social History Date Type Detail Facility Start: 11-20-2010 End: 02-20-2025 Tobacco smoking status NHIS Never smoked tobacco [facility] Work Phone: Start: 11-20-2010 End: 08-11-2023 Tobacco use and exposure Smokeless tobacco non-user [facility] Work Phone: Start: 05-19-2016 End: 03-16-2024 Alcohol intake Current non-drinker of alcohol (finding) [facility] Start: 1975 Sex Assigned At Not on file [facility] Sex Assigned At [facility] Start: 12-14-2022 End: 03-26-2024 History of Social function [facility] Start: 12-14-2022 End: 03-26-2024 Tobacco use panel [facility] National Score (1-100), lower number is lower risk 79 [facility] Start: 08-11-2023 End: 03-26-2024 Alcohol intake Ex-drinker (finding) [facility] Start: 08-26-2005 End: 02-15-2022 Sex Female (finding) [facility] Start: 1975 Sex Assigned At Female [facility] NEGATED: Highlighted rowStart: NINF History of tobacco use Passive smoker [facility] Functional Status Date Assessment Result Facility 05-28-2023 Functional Status ID band on, Call device within reach, Bed in low position, Wheels locked, Upper/Half-Length side-rails up, Phone within reach, personal items within reach, Visitor at bedside, Safety level maintained [facility] 05-28-2023 Functional Status [facility] 01-15-2023 Functional Status Room check performed [facility] 01-15-2023 Functional Status [facility] 01-15-2023 Functional Status [facility] 01-15-2023 Functional Status Yes [facility] 01-15-2023 Functional Status [facility] 01-14-2023 Functional Status [facility] 01-14-2023 Functional Status Special Call D evice Unable to use call device [facility] 01-14-2023 Functional Status 100 [facility] 01-14-2023 Functional Status [facility] 01-14-2023 Functional Status [facility] 01-13-2023 Functional Status Skin Care Prev entative Intervention(s) heel(s)s elevated [facility] 01-13-2023 Functional Status Done [facility] 01-13-2023 [...] spital 01-10-2023 Functional Status NPO Status Maintained [facility] 01-10-2023 Functional Status [facility] 01-09-2023 Functional Status [facility] 01-09-2023 Functional Status [facility] 01-08-2023 Functional Status SCD On/Re-applied bilat eral knee [facility] 01-08-2023 Functional Status [facility] 01-08-2023 Functional Status [facility] 01-08-2023 Functional Status [facility] 01-08-2023 Functional Status [facility] 01-06-2023 Functional Status Living Situation nursing home [facility] 01-05-2023 Functional Status Patient Identi fied Identification band, Verbal [facility] 08-28-2022 Functional Status SCD Removed/Off bilater al knee [facility] 08-28-2022 Functional Status Room check per formed, Rag Baler at bedside [facility] 08-28-2022 Functional Status [facility] 08-27-2022 Functional Status [facility] 08-27-2022 Functional Status [facility] 08-27-2022 Functional Status Done [facility] 08-27-2022 Functional Status [facility] 08-25-2022 Functional Status Maximum assistance [facility] 08-24-2022 Functional Status Hospital bed [facility] 08-24-2022 Functional Status [facility] 08-23-2022 Functional Status [facility] Mental Status Date Assessment Result Facility 12-25-2024 Cognitive function Voice/Name Jammie Lopez [facility] Work Phone: 05-28-2023 Mental Status Orientation Oriented x 4 [facility] 05-28-2023 Mental Status [facility] 01-15-2023 Mental Status Orientation Does not intera ct [facility] 01-14-2023 [facility] 01-14[facility] Mental Status [facility] 01-13-2023 Mental Status [facility] 08-28-2022 Mental Status Orientation Does not interact, Other: Patient states no when answering questions [facility] 08-27-2022 Mental Status [facility] 08-27-2022 Mental Status [facility] 08-26-2022 Mental Status Orientation Asse ssment Confused [facility] 08-25-2022 Mental Status [facility] 08-25-2022 Mental Status [facility] Clinical Notes 07-04-2021 to 01-06-2025 Telephone [...] [facility] 12-27-2024 Note [facility] 12-27-2024 Note SARS-COV-2 (AGENT OF COVID-19) RNA: Not detected INFLUENZA A RNA: Not detected INFLUENZA B RNA: Not detected RESPIRATORY SYNCYTIAL VIRUS (RSV) RNA: Not detected [facility] Comment on above: Performed By: #### 9 5941-1 ####[facility] LABORATORYCLIA [id number] [place] [address] [facility] 12-25-2024 Radiology Diagnostic study note [facility] [address], [place] [id number] Brain/Head without Contrast MR#: [id number] Acct: [id number] Name: SHARLA JOINER Rep #: [id number] : 1975 F 49 From: Shorty Cassidy MD PCP: Abby Carrillo MD Status: PRE ER Study:Brain/Head without Contrast Date of Exa m: 12/25/24 Exam# [id number] Ordering Dr: Quincy Clarke DO PROCEDURE: BRAIN/HEAD [...] temporal lobes. Hyperostosis frontalis interna. Reading Location: [place] [address] CC: Abby Carrillo MD; Dr. Quincy Clarke DO ~ Applied Technologist: Signed [facility] 12-25-2024 Radiology Diagnostic study note [facility] [address] [place] [address] Chest 1 View (Portable) MR#: [id number] Acct: [id number] Name: SHARLA JOINER Rep #: [id number] : 1975 F 49 From: Sohrty Cassidy MD PCP: Abby Carrillo MD Status: PRE ER Study:Chest 1 View (Portable) Date of Exam: 12/25/24 Exam# [id number] Ordering Dr: Quincy Clarke DO PROCEDURE: CHEST 1 VIEW (PORTABLE) 12/25/2024 REASON FOR EXAM: ALTERED MENTAL STATUS TECHNIQUE: Frontal view of the chest. COMPARISON: None FINDINGS: Hardware: EKG electrodes are seen. Heart: The heart is nonenlarged. Lungs: Lungs are clear. Bones: The bones are unremarkable. Other: RAD/Chest 1 View (Portable) IMPRESSION: No Acute Findings. Reading Location: [place] [address] CC: Abby Carrillo MD; Dr. Quincy Clarke DO ~ Applied Technologist: Signed [facility] 12-19-2024 Note [facility] 12-18-20[facility] [...] Medical Ce [facility] 12-11-2024 Note HNO ID: [id number] Author: JOSE MINOR RN Service: Nursing Author Type: Registered Nurse Type: Nursing Progress Note Filed: 12/11/2024 14:41 Note Text: Called Legal guardian (mom) to fill out MRI form, no response. Will try calling again. [facility] 12-10-2024 Note [facility] 12-09-2024 Note HNO ID: [id number] Author: NYDIA VICTOR, TENA Service: Nursing Author Type: Registered Nurse Type: Nursing Progress Note Filed: 12/09/2024 15:55 Note Text: Mts called about iv fluids not compatabile [facility] 12-09-2024 Note HNO ID: [id number] Author: KWAME HUSSEIN, TENA Service: ? Author Type: Registered Nurse Type: Nursing Progress Note Filed: 12/09/2024 15:26 Note Text: Report given to oncoming nurse. [facility] 12-09-2024 Note [facility] 12-08-2024 Note [facility] 12-07-2024 [facility]24 Note HNO ID: [id number] Author: NYDIA VICTOR RN Service: Nursing Author Type: Registered Nurse Type: Nursing Progress Note Filed: 12/06/2024 19:46 Note Text: [facility] [place] [facility] updated on discharge plans [facility] 12-06-2024 Note [facility] 12-05-2024 Note HNO ID: [id number] Author: NYDIA VICTOR, TENA Service: Nursing Author Type: Registered Nurse Type: Nursing Progress Note Filed: 12/05/2024 22:34 Note Text: Pt turned bed alarm on [facility] 12-05-2024 Note [facility] nter 12-04-2024 Note [facility] 12-04-2024 Note [facility] 12-03-2024 Note SARS-COV-2 (AGENT OF COVID-19) RNA: Not detected INFLUENZA A RNA: Not detected INFLUENZA B RNA: Not detected RESPIRATORY SYNCYTIAL VIRUS (RSV) RNA: Not detected [facility] Comment on above: Performed By: #### 9 5941-1 ####[facility] LABORATORYCLIA [id number] [address] [facility] 10-21-2024 Note . MICRO - Microbiology PROCEDURE: [...] Locations *1: This test was performed at: [address], [address] [place] [address] 10-21-2024 Note . MICRO - Microbiology PROCEDURE: [...] Locations *1: This test was performed at: [address], [address] [place] [address] 10-19-2024 Note . MICRO - Microbiology PROCEDURE: [...] Locations *1: This test was performed at: [facility], [address] [place] [address], [id number]- , DILSHADVAZQUEZ GUAN 06-04-2024 Telephone encounter Note Referral closed [facility] 06-04-2024 Miscellaneous Notes Referral closed Name of [...] Name of caller: Annie Contact phone number: [phone] Relationship to Patient: Caregiver - Alpha Personal Care Provider: Lisette Jesus PA-C Practice: [facility] ENT Chief Complaint/Reason for Call: Annie called in regarding Sharla's 05/01/24 3:00 PM missed new patient appointment, and states that Sharla had an appointment with Dr. Peggy Howard at [facility] on 04/11 and did not [facility] at this time. Please be advised. Best time of day caller can be reached: Any Patient advised that office/PCP has 24-48 business hours to return their call: Yes documented in this encounter [facility] 06-04-2024 Telephone encounter Note Name of Caller: Annie Contact Reason for Appointment: Barbara called because they received a letter stating there was a missed appointment. She said they called prior and after. Sharla has her own ENT. Please make note she has another provider for ENT and will not be making another appointment. Please advise. Office Name: ENT [facility] 05-07-2024 Telephone encounter Note Name of caller: Annie Contact phone number: [phone] Relationship to Patient: Caregiver - Alpha Personal Care Provider: Lisette Jesus PA-C Practice: [facility] ENT Chief Complaint/Reason for Call: Annie called in regarding Sharla's 05/01/24 3:00 PM missed new patient appointment, and states that Sharla had an appointment with Dr. Peggy Howard at [facility] on 04/11 and did not wish to reschedule with [facility] ENT Sharla at this time. Please be advised. Best time of day caller can be reached: Any Patient advised that office/PCP has 24-48 business hours to return their call: Yes [facility] 05-07-2024 Miscellaneous Notes Name of caller: Annie Contact phone number: [phone] Relationship to Patient: Caregiver - Alpha Personal Care Provider: Lisette Jesus PA-C Practice: [facility] ENT Chief Complaint/Reason for Call: Annie called in regarding Sharla's 05/01/24 3:00 PM missed new patient appointment, and states that Sharla had an appointment with Dr. Peggy Howard at [facility] on 04/11 and did not wish to reschedule with [facility] ENT Sharla at this time. Please be advised. Best time of day caller can be reached: Any Patient advised that office/PCP has 24-48 business hours to return their call: Yes documented in this encounter [facility] 04-09-2024 Instructions Bob Caldwell APRN.SUPERINTENDENT PIER - 04/09/2024 6:04 PM EDT - Medications [...] have an infection. documented in this encounter [facility] 04-09-2024 Note Janny horton 04-09-2024 History of [...] year ,,,@time she was in for throat @[place] ,,,grand mal -she was in [place] because chicken caught in her throat ACTIVE [...] 30 seconds then expectorate 473 mL 0 Ynmmtauczfuob-Jddibwkh-Avbobi (MULTIVITAMIN 50 PLUS) tab Take 1 tablet [...] of the software.) documented in this encounter [facility] 03-26-2024 Emergency department Note EKG, IV, blood work, covid and straight cath completed with assistance of Juliette Ponce RN, Juan medic and Mary lópez; patient tolerated well. Respirations even and unlabored, no distress noted. Caregiver at bedside throughout all procedures and remains with patient after Trish Miranda RN 03/26/24 1316 [facility] 03-26-2024 Emergency department Note EKG, IV, blood [...] not sleeping, strengthening other staff at the [place] [facility]. Patient is autistic has developmental delay, she was here couple days ago had to give her Ativan and Versed eventually family and [facility] employee just wanted to take her back [...] In compliance with this authorization, please visit www.fda.gov/media/406397/download or www.fda.gov/media/460781/download to access the applicable information sheets. LIPASE [...] Culture. Procedure Abnormality Status --------- ------ Complete Urinalysis[[id number]] Abnormal Final result Please view results for [...] not sleeping, strengthening other staff at the [facility]. Patient is autistic has developmental delay, she was here couple days ago had to give her Ativan and Versed eventually family and [facility] employee just wanted to take her back [...] intervals. I also reviewed external records from [facility]. I discussed their care with [facility]. Consideration for escalation of care with: Admission/observation for medication adjustments due to behavior however the staff from [facility] states her to take her back to the [facility] they will follow-up with the provider for medication adjustments, she required several dosages of medication to sedate her I am Versed, ketamine and then another dose of IV Versed so we can get the CT performed, when she is awake will discharge home with [facility] staff.. The patient will be Discharged. Patient [...] Desirae Rosario [address] [facility] [address] DISCHARGE MEDICATIONS: New Prescriptions No medications on [...] Braswell CNP 03/26/24 1549 Emergency Department Encounter [facility] Patient: Sharla Joiner : [...] for agitation. Patient brought in by her timers inspector from her [place]. She has autism she does verbalize at baseline but does not make sense at baseline. The timers inspector states she has been complaining of pain when she has bowel movements and she has been aggressive with others not acting herself. She has not been eating drinking or sleeping. She was seen here few days ago and diagnosed with possible ear infection. Tactical Debriefer Officer did not report any rash to the [...] dictating provider for clarification.) Luci Shah MD [facility] Luci Shah MD 03/26/24 1223 documented in this encounter [facility] 03-26-2024 Emergency department Note EKG performed by Mary lópez and given to MD for review Trish Miranda RN 03/26/24 1303 [facility] 03-26-2024 Physician Emergency department Note EMERGENCY DEPARTMENT [...] not sleeping, strengthening other staff at the [facility]. Patient is autistic has developmental delay, she was here couple days ago had to give her Ativan and Versed eventually family and [facility] employee just wanted to take her back [...] In compliance with this authorization, please visit www.fda.gov/media/488041/download or www.fda.gov/media/844101/download to access the applicable information sheets. LIPASE [...] Culture. Procedure Abnormality Status --------- ------ Complete Urinalysis[[id number]] Abnormal Final result Please view results for [...] not sleeping, strengthening other staff at the [facility]. Patient is autistic has developmental delay, she was here couple days ago had to give her Ativan and Versed eventually family and [facility] employee just wanted to take her back [...] due to behavior however the staff from [facility] states her to take her back to the [facility] they will follow-up with the provider for medication adjustments, she required several dosages of medication to sedate her I am Versed, ketamine and then another dose of IV Versed so we can get the CT performed, when she is awake will discharge home with [facility] staff.. The patient will be Discharged. Patient [...] Desirae Rosario [address] [place] [id number] DISCHARGE MEDICATIONS: New Prescriptions No medications on [...] Braswell CNP (electronically signed) Emergency Medicine Provider ANRDEW Braswell CNP 03/26/24 1549 [facility] 03-26-2024 Physician Emergency department Note Emergency Department Encounter [facility] EMERGENCY DEPT Patient: Sharla Joiner : 1975 [...] for agitation. Patient brought in by her timers inspector from her [place] [facility]. She has autism she does verbalize at baseline but does not make sense at baseline. The timers inspector states she has been complaining of pain when she has bowel movements and she has been aggressive with others not acting herself. She has not been eating drinking or sleeping. She was seen here few days ago and diagnosed with possible ear infection. Tactical Debriefer Officer did not report any rash to the [...] for clarification.) Luci Shah MD [facility] Luci Shah MD 03/26/24 1223 [place] Phone: 03-24-2024 Emergency department Note Mother states the patient is finally at a point where they can take her home and she will go to bed and sleep. Mother states she does not want the lab tests at this time and states she will bring her back if there is a need. Lalit RADHA notified. Matt Mix RN 03/24/242249 [facility] 03-24-2024 Emergency department Note Mother states the [...] at this time. Sheridan Deng RN 03/24/24 3257 documented in this encounter [facility] 03-24-2024 Hospital Discharge instructions ANDREW Bermeo CNP - 03/24/2024 10:46 PM EDT Please pick your medications from the pharmacy and take as instructed. Please make appointment to follow-up with ENT in 2 days. Please make appointment to follow-up with your PCP in 2 days. The following attachments cannot be sent through Care Everywhere.Ear Wax Impaction Discharge Instructions (Bots[place]an)Ear Infections (Otitis Media) in Adults Discharge Instructions ([place]an)documented in this encounter [facility] 03-24-2024 Emergency department Note Pt still pacing in room and unable to draw blood at this time. Matt Mix RN 03/24/247 [facility] 03-24-2024 Emergency department Note Patient very agitated and restless, patient refusing to stay in room and remains uncooperative. Lalit ORNELAS notified. Unable to obtain blood work at this time. Sheridan Deng RN 03/24/24 5485 [facility] 03-16-2024 Note [facility] nt 03-16-2024 History of Present illness [...] year ,,,@time she was in for throat @[place] ,,,grand mal -she was in [place] because chicken caught in her throat ACTIVE [...] 30 seconds then expectorate 473 mL 0 Uoxwbnkvywipg-Jertgvqx-Vhaezr (MULTIVITAMIN 50 PLUS) tab Take 1 tablet [...] Arline Guillermo PA-C documented in this encounter [facility] 01-25-2024 Telephone encounter Note Post op ck via the youth care professional, Annie Alvarez. Pt doing well, reinforced post ops. Kymberly Sethi [facility] Work Phone: 01-25-2024 Miscellaneous Notes Post op ck via the youth care professional, Annie Alvarez. Pt doing well, reinforced post ops. Kymberly Sethi documented in this encounter [facility] 01-24-2024 Note [facility] 01-24-2024 Note HNO ID: [id number] Author: LESA ROWLAND DDS Service: ? Author Type: Resident Type: Progress Notes Filed: 01/24/2024 10:05 Note Text: Post operative medications [facility] 01-24-2024 History of Present illness Narrative Post operative medications documented in this encounter [facility] 01-23-2024 Note [facility] 01-23-2024 Note [facility] 01-23-2024 Note HNO ID: [id number] Author: REINALDO CASTRO RN Service: Nursing Author Type: Registered Nurse Type: Nursing Progress Note Filed: 01/23/2024 11:50 Note Text: Mom will be available for phone call ,for consent for surgery and anesthesia dos [facility] 01-17-2024 Note [facility] 01-17-2024 History of Present illness Narrative [...] Jeff Ambriz DDS documented in this encounter [facility] 01-17-2024 Note [facility] nt 12-23-2023 Hospital Discharge instructions Marcella [...] greater than 101 documented in this encounter [facility] 12-23-2023 Emergency department Note EMERGENCY DEPARTMENT ENCOUNTER [...] emergency department with a personal-care tach from [employer], for evaluation of left ear irritation with [...] this to the patient and her patient hemodialysis patient care specialist and recommended that they continue to use [...] TO: Shayna Rosario DO [address] [facility] [id number] In 1 week For symptom recheck. [...] PA-C 12/23/23 1229 documented in this encounter [facility] 12-23-2023 Physician Emergency department Note EMERGENCY DEPARTMENT [...] emergency department with a personal-care tach from [employer], for evaluation of left ear irritation with [...] this to the patient and her patient hemodialysis patient care specialist and recommended that they continue to use [...] TO: Shayna Rosario DO [address] [id number] In 1 week For symptom recheck. DISCHARGE [...] Medicine Provider Marcella Ryan PA-C 12/23/23 1229 [facility] 11-24-2023 History of Present illness Narrative Sharla Joiner is a 48 year old female who presents with Ear Problem (B/l ear pain x3ays) and UTI (Urinary frequency w odor x3 days //No chance sti nor ) 48-year-old female presents today with bilateral ear pain in urine frequency for the last 2 days. Patient is present today with a timers inspector. No fevers reported. History of hematuria per [...] go to ER for evaluation. Sia Weinstein APRN.SUPERINTENDENT PIER This note was partially generated using Ensogo recognition system, and there may be some incorrect words, spellings, and punctuation that were not noted in checking the note before saving. documented in this encounter [facility] 11-24-2023 Instructions Sia Weinstein APRN.CNP - 11/24/2023 [...] any ear pain or can follow-up with research engineer. documented in this encounter [facility] 08-11-2023 Emergency department Note EMERGENCY DEPARTMENT ENCOUNTER [...] getting out of the van at the [place] [facility] and stepped wrong and fell onto the [...] otherwise acutely negative except as in the KAW PAST MEDICAL HISTORY Past Medical History: Diagnosis [...] pt denies pain documented in this encounter [facility] 08-11-2023 Emergency department Triage note Pt presents to the er with her caregiver , caregiver states she fell today and hit the front of her head, pt denies any LOC , pt denies pain [facility] 08-11-2023 Physician Emergency department Note EMERGENCY DEPARTMENT [...] getting out of the van at the [place] [facility] and stepped wrong and fell onto the [...] otherwise acutely negative except as in the KAW PAST MEDICAL HISTORY Past Medical History: Diagnosis [...] Emergency Medicine Provider Johnathon Rivas DO 08/11/239 [facility] [employer] 05-29-2023 Note . MICRO - Microbiology PROCEDURE: Urine Culture [*1] SOURCE: Urine BODY SITE: COLLECTED DATE/TIME: 05/28/2023 13:42 EST RECEIVED DATE/TIME: 05/28/2023 14:11 EST START DATE/TIME: 05/28/2023 14:11 EST FREE TEXT SOURCE: FINAL REPORTS Final Report [] Verified Date/Time/Personnel: 05/29/2023 14:41 EST >100,000 cfu/ml Mixed growth consistent with normal urogenital hailey. Performing Locations *1: This test was performed at: [address], [address] , [facility] ([place]) 05-28-2023 Hospital Discharge instructions Patient Education 05/28/2023 [...] swelling in the outer vaginal area (labia) [phone] [employer]. [address] [place] [address]. All rights reserved. This information is not intended as a substitute for professional medical care. Always follow your healthcare professional's instructions. Follow Up Care 05/28/2023 12:31:18 With:Go to emergency room if symptoms worsen Address:Unknown When:2-4 days With:DESIRAE ROSARIO MD, [facility] Address: [facility] [address] [address]- When:2-4 days [facility] 05-28-2023 Emergency department Discharge summary Discharge Instructions Thank you for allowing [facility] to assist you with your healthcare needs. [...] days Follow Up with DESIRAE ROSARIO MD, [facility] When Within 2-4 days Where: [facility] [address] [facility] [address] [place] [address]- Allergies NKA Medications Please ask your primary [...] swelling in the outer vaginal area (labia) [phone] [employer], [employer]. [address] [place] [address], [place] [address]. All rights reserved. This information is not intended as a substitute for professional medical care. Always follow your healthcare professional's instructions. Additional Information VACCINATE! IT SAVES LIVES! Members of the community who have not yet received the COVID-19 vaccine and would like to receive it can visit one of [facility] vaccine clinics. There are many vaccine clinic locations within the [facility]. For locations and available times, please visit www.[email or web address] It is important to note that some COVID mobile vaccine clinics are held outdoors and may be canceled in rainy or stormy conditions. To learn more about pediatric vaccinations (ages 5-11), we invite you to visit the [facility] webpage. https://www.[facility].org/pages/ 1151-Ttydu-Phzludmdryj-Frequently-Ask ed-Questions.html To learn more about the COVID-19 vaccine, we invite you to visit the CDC website for a list of frequently asked questions. https://www.cdc.gov/coronavirus/2019- ncov/vaccines/faq.html [facility] Patient Portal Access Instructions: Stay connected with your healthcare team and access your personal medical information anytime with the [facility] Patient Portal. If you would like a full copy of your medical records please contact the [facility] Medical Records Department Tuesday through Tuesday between 8a.m. and 4:30p.m. Please follow the directions below to access the portal: 1.Access the email account you provided upon registration to the hospital.2.Look for an invitation email from [facility].3.Open the email and access the invitation link: Accept Invitation to [facility]4.Fill in the required welch to create your account. Sign into [email or web address] with your username and password that you [...] you will allow to register on the [facility] Patient Portal for access to your information. You can also access the [facility] Patient Portal on the [employer] radha. Simply click on Health Records under Health Data and then click on the [facility] logo. HOW TO SAFELY DISPOSE OF PRESCRIPTION [...] Call your local pharmacy or go to [email or web address] [email or web address] to find one close to you.3.Make use of household items: Use cat litter or old coffee grounds to dispose medications if other options are not available. Mix your drugs with these household products, seal them in an airtight container and throw it into the garbage. Call [facility]: [phone] to be sure your drugs can be [...] aware that I should contact my doctor. Patient/Mill Labor Supervisor Signature: __ Date/Time: Relationship to Patient: Witness Name/Signature: Date/Time: [facility] 05-28-2023 Note ORIGINAL EXAMINATION: CT OF THE HEAD WITHOUT JREJMIVS40/11/2023 3:[address] HEAD OR BRAIN W/O [...] 05/28/2023 3:34:15 PM Ordering Provider: TE LEE [facility] 05-28-2023 Evaluation + Plan note Diagnostic Tests PendingUrine Culture 05/28/23 [facility] 05-28-2023 History of Present illness Narrative Sharla Joiner is a 47 year old female who presents with Urinary Problem (Burning with urination. machine staker reports that when she has behavior issues [...] urine. Jason Abarca documented in this encounter [facility] 04-07-2023 Note HNO ID: [id number] Author: Sue Everett RT(Marques) Service: Radiology Author [...] RT Angelina(Marques) April 07, 2023 9:51 AM [facility] 04-07-2023 History of Present illness Narrative Radiology [...] 2023 9:51 AM documented in this encounter [facility] 01-15-2023 Hospital Discharge instructions Patient Education 01/15/2023 16:53:53 Seizure, Adult, Ztdj-yf-Lskl Seizure, Adult A seizure is a sudden [...] Follow these instructions at home: Medicines Take vpyv-gkj-yenkkva and prescription medicines only as told by [...] [place] ask your local DMV (department of [address]) when you can drive. Get plenty of [...] 12/20/2008 Document Revised: 09/21/2019 Document Reviewed: 09/21/2019 [employer] Patient Education 2020 [employer]. 01/15/2023 16:53:18 Dysphagia Dysphagia Dysphagia is trouble [...] Follow these instructions at home: Medicines Take vqcp-rlj-zhtxzth and prescription medicines only as told by your health care provider. If you were prescribed an antibiotic medicine, take it as told by your health care provider. Do not stop taking the antibiotic even if you start to feel better. Eating and drinking Follow any diet changes as told by your health care provider. Work with a diet and foot specialist (dietitian) to create an eating plan [...] 07/01/2001 Document Revised: 11/28/2019 Document Reviewed: 11/28/2019 [employer] Patient Education 2020 [employer]. Follow Up Care 01/04/2023 18:37:38 With:[facility], [facility], call RN report to : Address:Unknown When:1-2 days With:DESIRAE ROSARIO Address: [facility] [address] [address]- Business (1) When:1-2 days [facility] 01-15-2023 Discharge summary Date of Service 01/15/2023 Discharge Diagnosis 1. Esophageal obstruction due to food impaction (K22.2 - ICD-10-CM) 2. Vomiting ([id number] - PNED) 3. Dysphagia (R13.10 - ICD-10-CM) [...] Orders: Ordered: Discharge,01/15/23 12:58:00 EDT, Discharged to: Intermediate Facility Other status: EKG,01/13/23 7:57:00 EDT(Complete) Ordered: [...] BID, # 180 tab(s), 0 Refill(s), Pharmacy: [facility] #[id number], 170.2, cm, 01/05/23 14:35:00 EDT, Height Ordered: fludrocortisone 0.1 mg oral tablet,Dose : 0.2 mg = 2 tab(s), Oral, qDay, 0 Refill(s) Ordered: midodrine 5 mg oral tablet,Dose : 10 mg = 2 tab(s), Oral, BID, 0 Refill(s) End of Orders Hospital Course 47-year-old female with a past medical history of bipolar disorder, autism spectrum disorder, MRDD who presented to [facility] on 01/04/2023 with a 1 day history [...] optimized for discharge, to be discharged to [facility]. Discussed with mother over the phone. Discussed [...] Patient Instructions You will be discharged to fdc facility. Continue on your current medications. Return [...] by LUCI SALCEDO on 01/15/2023 01:03 PM [facility] 01-15-2023 Note Discharge Instructions Thank you for allowing [facility] to assist you with your healthcare needs. The following is important discharge information regarding your hospital visit. Your Care Team DESIRAE ROSARIO MD Your Diagnosis Esophageal obstruction due to food impaction Vomiting Dysphagia Bipolar disorder Autism Seizure What to do next Follow Up Appointments Follow Up with [facility], [facility], call RN report to : When Within 1-2 days Follow Up with DESIRAE ROSARIO When Within 1-2 days Where: [facility] [address] [facility] [address] [place] [id number]- [facility] (1) The Following Activity and Diet Have Been Ordered for You Transfer of Care Activity - Ordered -- As instructed by therapy, 01/15/23 12:58:00 EDT Transfer of Care Diet - Ordered -- Type of Diet: Xpvbmh-NCWWK-5, 01/15/23 17:11:00 EDT The Following Equipment Has [...] a day Duration: 30 Days Pickup at [facility] #45251 Unchanged cholecalciferol (Vitamin D3 50 mcg (2000 intl units) oral capsule) 1 cap by mouth Every day Unchanged montelukast (montelukast 10 mg oral tablet) 1 tab(s) by mouth Once a day Pharmacy Information [facility] #[id number]: [address], [place] [phone] What How Much When Comments Stop Taking [...] Follow these instructions at home: Medicines Take pefo-tfo-mfflrzr and prescription medicines only as told by [...] [place]., ask your local DMV (department of [address]) when you can drive. Get plenty of [...] 12/20/2008 Document Revised: 09/21/2019 Document Reviewed: 09/21/2019 ElseCollabera Patient Education 2020 [employer]. Dysphagia Dysphagia is trouble swallowing. This condition [...] Follow these instructions at home: Medicines Take drxz-hys-wxgzjkr and prescription medicines only as told by your health care provider. If you were prescribed an antibiotic medicine, take it as told by your health care provider. Do not stop taking the antibiotic even if you start to feel better. Eating and drinking Follow any diet changes as told by your health care provider. Work with a diet and foot specialist (dietitian) to create an eating plan [...] Document Reviewed: 11/28/2019 Elsevier Patient Education 2019 [employer]. Additional Information VACCINATE! IT SAVES LIVES! Members of the community who have not yet received the COVID-19 vaccine and would like to receive it can visit one of [facility] vaccine clinics. There are many vaccine clinic locations within the [facility]. For locations and available times, please visit [email or web address] It is important to note that some COVID mobile vaccine clinics are held outdoors and may be canceled in rainy or stormy conditions. To learn more about pediatric vaccinations (ages 5-11), we invite you to visit the [facility] webpage. https://www.Connectems.org/pages/ 0325-Wxtgy-Kicacinwwma-Frequently-Ask ed-Questions.html To learn more about the COVID-19 vaccine, we invite you to visit the CDC website for a list of frequently asked questions.https://www.cdc.gov/coronav irus/2019-ncov/vaccines/faq.html [facility] Patient Portal Access Instructions: Stay connected with your healthcare team and access your personal medical information anytime with the [facility] Patient Portal. Please follow the directions below to create your [facility] account: 1.Access the email account you provided upon registration to the hospital/physician office.2.Look for an invitation email from [facility].3.Open the email and access the invitation link: Accept Invitation to [facility].4.Fill in the required welch to create your account. To access your account, visit [email or web address]. Click the blue button labeled Access Patient [...] you will allow to [facility] for access to your information. You can also [facility] the [facility] on the [facility] radha. Simply click on Patient Portal and then log into your account. If you would like to receive a full copy of your medical records, please contact the [facility] Medical Records Department by calling [phone], Tuesday through Tuesday between 8 a.m. and [...] Call your local pharmacy or go to http://iMusician/[email or web address] to find one close to you.3.Make use of household items: Use cat litter or old coffee grounds to dispose medications if other options are not available. Mix your drugs with these household products, seal them in an airtight container and throw it into the garbage. Call [facility]: [phone] to be sure your drugs can be [...] COPY. Signatures Patient Education Materials Seizure, Adult, Crlt-sm-Punl Dysphagia Medication Leaflets My discharge plan and instructions have been reviewed and explained to me and I,ROHITMarques SHARLA Marques understand my current condition and have read and understand these discharge instructions. I have received a written copy of the plan/instructions. If I have questions, I am aware that I should contact my doctor. Patient/Mill Labor Supervisor Signature: __ Date/Time: Relationship to Patient: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 Appointments Follow Up with DESIRAE ROSARIO MD, [facility] When 08/28/2022 02:27 PM EST Why: Follow up with primary care doctor as an outpatient. Call to make an appointment. Within 1 week Where: [facility] [address] [address]- Follow Up with [facility] When In 4 weeks Why: Follow-up with neurology as an outpatient. Call to make an appointment. Within 4 weeks Where: [address] [place], [place] [id number]- [phone] Follow Up with LUCI MATSON MD When In 2 weeks Why: Follow up with psychiatry as an outpatient. Call to make an appointment. Within 2 weeks Where: [address] [address]- The Following Activity and Diet Have Been [...] with meals Duration: 5 Days Pickup at [facility][id number] Unchanged carbidopa-levodopa (carbidopa-levodopa 25 mg-100 mg oral [...] by mouth Daily at bedtime Pharmacy Information [facility] #[id number]: [address], [place] [phone] Please take this list to your next [...] a lot of fat or sugar. Take xypn-tfp-rbbjfmt and prescription medicines only as told by [...] 04/30/2010 Document Revised: 06/16/2018 Document Reviewed: 08/27/2016 [employer] Patient Education 2020 [employer] Additional Information VACCINATE! IT SAVES LIVES! Members of the community who have not yet received the COVID-19 vaccine and would like to receive it can visit one of [facility] vaccine clinics. There are many vaccine clinic locations within the [facility]. For locations and available times, please visit [email or web address]/. It is important to note that some COVID mobile vaccine clinics are held outdoors and may be canceled in rainy or stormy conditions. To learn more about pediatric vaccinations (ages 5-11), we invite you to visit the [facility] webpage. https://www.[email or web address].org/pages/6845-Donos-Gfpsmfisqhx-Jhqvvzefol-Cxbnu-Rxp stions.htmlTo learn more about the COVID-19 vaccine, we invite you to visit the [facility] website for a list of frequently asked questions. [email or web address]/Sjhmusdv-gmh-Pudezrya/dtogm-Wgnopin-Jzfiifpgjm _Asked-Questions.pdf [facility] [employer] Patient Portal Access Instructions: Stay connected with your healthcare team and access your personal medical information anytime with the [facility] Patient Portal.If you would like a full copy of your medical records, please contact the [facility] Medical Records Department, Tuesday through Tuesday between 8a.m. and 4:30p.m. Please follow the directions below to access the portal: 1.Access the email account you provided upon registration to the [facility].2.Look for an invitation email from [facility].3.Open the email and access the invitation link: Accept Invitation to [facility]4.Fill in the required welch to create your account. Sign into www.[email or web address] with your username and password that you [...] you will allow to register on the [facility] Patient Portal for access to your information. You can also access the [facility] Patient Portal on the Next Points. Simply click on Health Records under Helpr and then click on the El[employer] logo. HOW TO SAFELY DISPOSE OF PRESCRIPTION [...] Call your local pharmacy or go to [email or web address] [email or web address] to find one close to you.3.Make use of household items: Use cat litter or old coffee grounds to dispose medications if other options arenot available. Mix your drugs with these household products, seal them in an airtight container andthrow it into the garbage. Call [facility]: [phone] to be sure your drugs can be [...] COPY. Signatures Patient Education Materials Dehydration, Adult, Nsws-ub-Djyd Medication Leaflets My discharge plan and instructions have been reviewed and explained to me and IELFEGO LARISSA R understand my current condition and have read and understand these discharge instructions. I have received a written copy of the plan/instructions. If I have questions, I am aware that I should contactmy doctor. 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 Where: [address] [facility] [address] [place] [address]- [facility] When In 4 weeks Why: Follow-up with neurology as an outpatient. Call to make an appointment. Where: [address] [place] [address]- [phone] Follow Up with DESIRAE ROSARIO MD, [facility] When Within 5 to 7 days Why: Follow up with primary care doctor as an outpatient. Call to make an appointment. Where: [facility] [address] [facility] [address] [place] [address]- Discharge Diet Discharge Diet - Ordered -- Type of Diet: Regular, 08/28/22 14:12:00 EST Discharge Activity Discharge Activity - Ordered -- Activity As Tolerated, 08/28/22 14:12:00 EST Condition on Discharge Improved Discharge Disposition nursing home Information Provided To Patient and mother Time Spent >30 minutes Digitally Signed by SHELTON LYNNE MD on 08/28/2022 02:20 PM [id number] Note Date of Service August 27, 2022 [...] SHELTON LYNNE MD on 08/27/2022 10:40 PM [id number] Nurse Progress note Patient not participating in [...] Ashley Malave RN on 08/27/2022 11:45 AM [id number] Nurse Progress note Patient not participating in [...] Ashley Malave RN on 08/27/2022 11:45 AM [id number] Neurology Progress note Date of Service August [...] plan. This note has been generated using [employer] dictation software. It may contain incorrect words, punctuation's and spellings that were not noted in the review of the note prior to signing. It is a split/shared visit with MID LEVEL CLINICIAN. I have reviewed the progress note obtained and documented by NPand I personally participated in the moise components. I have personally seen and examined the patient at bedside. I have discussed the case and management of the patient's care with MID LEVEL CLINICIAN. I agree with the above documentation. I will be off service tomorrow but will have incoming library monitor Neurology follow up pending neurological test results and follow up patient as needed, please call with questions if any in the interim. Dorita Crowder MD Neurology, Vascular Neurology Neurohospitalist [facility] Digitally Signed by ASHLEY MARTE on 08/27/2022 11:14 AM Digitally Signed by DORITA CROWDER MD on 08/27/2022 11:30 AM [id number] Neurology Consult note Date of Service 08/26/2022 [...] interim. This note has been generated using [employer] dictation software. It may contain incorrect words, [...] DORITA CROWDER MD on 08/26/2022 11:50 AM [facility] [id number] Note Date of Service August 26, 2022 [...] minutes. Discussed with patients mother Shirley at [phone] with neurology Digitally Signed by SHELTON LYNNE MD on 08/26/2022 10:51 AM Digitally Signed by SHELTON LYNNE MD on 08/26/2022 11:16 AM [id number] Note Date of Service August 25, 2022 [...] at length with patients mother Shirley at [phone] Digitally Signed by SHELTON LYNNE MD on 08/25/2022 07:48 PM Digitally Signed by SHELTON LYNNE MD on 08/25/2022 07:52 PM [facility] [id number] Nurse Progress note patient refuses to make arm straight for IV flush and continuous infusion. charge nurse informed and will discuss with physician for further orders due to pt condition and cognitive ability Digitally Signed by Caroline Read LPN on 08/25/2022 10:41 AM [facility] [id number] Note ORIGINAL EXAMINATION: CT OF THE ABDOMEN [...] 08/25/2022 12:55:39 AM Ordering Provider: SHELTON LYNNE [facility] [id number] Note ORIGINAL EXAMINATION: CT OF THE HEAD [...] by: Leigha Xavier Preliminary Report By: Leigha Xavire Electronically signed By Leigha Xavier Dictated Date: 08/25/2022 12:46:35 AM Prelim Date: 08/25/2022 12:47:52 AM Sign Date: 08/25/2022 12:47:52 AM [facility]ing [facility] Note ORIGINAL EXAMINATION: CT OF THE ABDOMEN [...] Sign Date: 08/25/2022 12:55:39 AM Ordering Provider: [facility]02-07-2023 Note ORIGINAL EXAMINATION: CT OF THE HEAD [...] Sign Date: 08/25/2022 12:47:52 AM Ordering Provider: [facility]02-07-2023 Note Date of Service August 24, 2022 [...] stable to be transferred back to [place] [facility]. Patient continues to have altered mental status [...] SHELTON LYNNE MD on 08/24/2022 10:48 AM [facility] [id number] Consult note Chief complaint change in mental status History of present illness 47-year-old female admitted after becoming confused at her [place] [facility] inaddition to poor oral intake. I evaluated [...] Social history this patient lives in a [place] [facility]. She states that she is single and [...] stable to be transferred back to her [place] [facility] when she is medically cleared. Digitally Signed by LUCI MATSON MD on 08/24/2022 10:07 AM [facility] [id number] History and physical note Date of Service 08/23/2022 Chief Complaint Pt. caregivers from the [place] [facility] state that the pt. has not been eating or drinking for a few days and has not been herself History of Present Illness Patient is 46-year-old female with past medical history significant for autism spectrum disorder, MRDD, bipolar disorder, psychosis, impulse control disorder who is a [place] resident brought to [facility] due to concerns for poor oral intake, increasing confusion than her baseline and weakness for last few days. History was taken from [facility] staff Marianela present at bedside. They mentioned [...] activity reported. She does see psychiatry at [facility]. She is on multiple psychiatric medications [...] she will need medication adjustment. As per [facility] staff, she did seem a little better [...] continue IV fluid resuscitation overnight. As per [facility] staff, patient does seem to be improving with IV fluids in the ER. Continue to monitor for oral intake and started on regular diet. Continue her psychiatric medication until evaluation by psychiatry. DVT prophylaxis with heparin subcu Plan discussed with [facility] staff Marianela at bedside. Answered all of [...] FRANSISCO PERRY MD on 08/23/2022 04:11 PM [id number] Evaluation + Plan noteExtracted from: Title:History and [...] continue IV fluid resuscitation overnight. As per [facility] staff, patient does seem to be improving with IV fluids in the ER. Continue to monitor for oral intake and started on regular diet. Continue her psychiatric medication until evaluation by psychiatry. DVT prophylaxis with heparin subcu Plan discussed with [facility] staff Marianela at bedside. Answered all of their questions. [facility] 02-06-2023 Note ORIGINAL HISTORY: Confusion COMPARISON: 08 [...] Sign Date: 08/23/2022 11:50:16 AM Ordering Provider: [facility]02-06-2023 Note ORIGINAL HISTORY: Confusion COMPARISON: 08 April [...] Sign Date: 08/23/2022 11:50:16 AM Ordering Provider: [facility]12-29-2021 Hospital Discharge instructions Patient Education 07/15/2021 20:00:39 [...] does not get better with fever medication [id number] [employer]. [address] [place] [address]. All rights reserved. This information is not intended as a substitute for professional medical care. Always follow [facility] professional's instructions. 07/15/2021 20:00:35 Abdominal Pain, [...] or water and you are getting dehydrated [id number] [employer]. [address] [place] [address], [place] [address]. All rights reserved. This information is not intended as a substitute for professional medical care. Always follow yourhealthcare professional's instructions. Follow Up Care 07/15/2021 10:19:57 With:DESIRAE ROSARIO Address: [address] [place] [id number] Business (1) When:2-4 days Comments:Schedule appointment as soon as possibleReturn to ED if symptoms worsenPedialyte only till am and if better increase to BRAT and then to normalStart 2 citrucel tabs daily [facility] 12-22-2021 Hospital Discharge instructions Patient Education 2021 [...] swelling in the outer vaginal area (labia) [id number] [employer]. [address] [place] [address]. All rights reserved. This information is not [...] swelling in the outer vaginal area (labia) 8615-6232 [employer]. [address] [place] [address], [place] [address]. All rights reserved. This information is not intended as a substitute for professional medical care. Always follow yourhealthcare professional's instructions. Follow Up Care 2021 15:55:15 With:DESIRAE ROSARIO MD, [facility] Address: [address] When:2-4 days [facility] 12-22-2021 Evaluation + Plan note Diagnostic Tests Pending * Urine Culture 07/08/21 [facility] 12-21-2021 History of Present illness Narrative* Jason [...] with the patient's caregiver. Jason Abarca MD [id number] SSI File#: [id number] END OF DOCUMENT / CHANGE LOG FOLLOWS Last Edited By [employer]. Signed By Jason Abarca MD #Jason Alonzo MD on 07/31/2021 09:54 ET on 07/31/2021 09:54 ET Revision Number - 2 ^^^ Verified/Reviewed by 07/31/21 Leni FELTON [facility] PATIENT NAME: SHARLA JOINER [address] [place] MEDICAL REC #: [id number] [place] [address] [facility] Discharge instructions Patient Education 07/03/2021 22:25:03 [...] swelling in the outer vaginal area (labia) 3494-0474 [employer]. [address] [place] [address]. All rights reserved. This information is not intended as a substitute for professional medical care. Always follow yourhealthcare professional's instructions. Follow Up Care 07/03/2021 18:04:34 With:Go to emergency room if symptoms worsen Address:Unknown When:2-4 days With:DESIRAE ROSARIO MD, [facility] Address: [address] [place] [address]- When:2-4 days [facility] Evaluation + Plan note No data available for this section [facility] Evaluation note* Diagnosis Sensory urge incontinence- Primary Urge incontinence Gross hematuria documented in this encounter [facility] note* Diagnosis Gross hematuria documented in this encounter [facility] note* Diagnosis Bite- Primary Injury, other and unspecified, unspecified site documented in this encounter [facility] note* Diagnosis Dysuria- Primary Cognitive and behavioral changes Other signs and symptoms involving cognition documented in this encounter [facility] note* Diagnosis Head injury, initial encounter- Primary documented in this encounter [facility] note* Diagnosis Hematuria, unspecified type- Primary Ear pain, bilateral Impacted cerumen of right ear Impacted cerumen documented in this encounter [facility] note* Diagnosis Dermatitis of ear canal, bilateral- Primary Impacted cerumen of right ear Impacted cerumen Cerumen in auditory canal on examination documented in this encounter [facility] note* Diagnosis Encounter for dental examination- Primary Dental examination documented in this encounter [facility] note* Diagnosis Facial cellulitis- Primary Cellulitis and abscess of face Facial cellulitis Cellulitis and abscess of face documented in this encounter [facility] note* Diagnosis Bilateral impacted cerumen- Primary Impacted cerumen Bilateral impacted cerumen Impacted cerumen Left otitis media, unspecified otitis media type Left otitis media Unspecified otitis media documented in this encounter [facility] note* Diagnosis Abdominal pain, generalized- Primary Agitation Other and unspecified special symptom or syndrome, not elsewhere classified Autistic disorder Autistic disorder, current or active state documented in this encounter [facility] note* Diagnosis UTI symptoms- Primary Other symptoms involving urinary system documented in this encounter [facility] note* Diagnosis Left otitis media, unspecified otitis media type- Primary documented in this encounter [facility] noteNo assessment information availableWMorrow County Hospital Work Phone: Hospital Discharge instructions No data available for this section [facility] Hospital Discharge instructions* Attachments The following attachments cannot be sent through Care Everywhere. * Autism Spectrum Disorder (Botswanan) * Abdominal Pain, Adult ED (Botswanan) documented in [facility] HealthProgress note No data available for this section [facility] Reason for referral (narrative)* Diagnostic Procedure Only (Routine) - Authorized Specialty Diagnoses / Procedures Referred By Pedrito t Referred To Contact US IMAGING Diagnoses Gross hematuria Procedures US KIDNEY/BLADDER US RETROPERITONEAL REAL TIME W/IMAGE COMPLETE Giuliana Carson, ANDREW.SUPERINTENDENT PIER [address] [place] [address] Us Imaging Referral ID Status Reason Start Date Expiration Date Visits Requested Visits Authorized [id number] Authorized Auto-Generat ed Referral 11/10/2022 12/10/2023 1 1 [facility] for referral (narrative)* Diagnostic Procedure Only (Routine) - Closed Specialty Diagnoses / Procedures Referred By Contac t Referred To Contact US IMAGING Diagnoses Gross hematuria Procedures US KIDNEY/BLADDER US RETROPERITONEAL REAL TIME W/IMAGE COMPLETE Giuliana Carson APRN.CNP [address] [place], [place] [id number] Us Imaging Referral ID Status Reason Start Date Expiration Date V isits Requested Visits Authorized [id number] Closed Auto-Generate d Referral 11/10/2022 12/10/2023 1 1 [facility] for referral (narrative)* Consultation (Routine) - Pending Review Specialty Diagnoses / Procedures Referred By Contac t Referred To Contact Otolaryngology Diagnoses Bilateral impacted cerumen Procedures WI OFFICE/OUTPATIENT NEW HIGH MDM 60 MINUTES Lalit Solorzano, STROKE PROGRAM COORDINATOR - SUPERINTENDENT PIER [address] [place] [address] [facility] Ent [address] [place] [address] Referral ID Status Reason Start Date Expiration Date Visits Requested Visits Authorized [id number] Pending Review Specialty Services Required 03/24/2024 03/24/2025 1 1 [facility] for referral (narrative)No reason for referral information availableWMorrow County Hospital Work Phone: Reason for visit Narrative* Diagnostic Procedure Only (Routine) - Closed Specialty Diagnoses / Procedures Referred By Contac t Referred To Contact US IMAGING Diagnoses Gross hematuria Procedures US KIDNEY/BLADDER US RETROPERITONEAL REAL TIME W/IMAGE COMPLETE Giuliana Carson APRN.CNP [address] [place] [address] Us Imaging Referral ID Status Reason Start Date Expiration Date V isits Requested Visits Authorized [id number] Closed Auto-Generate d Referral 11/10/2022 12/10/2023 1 1 [facility] Summary Purpose Family History No Family History [...] Do you have a Healthcare Power of International Affairs Vice President? Yes December 25, 2024 1:17pm Chief Complaint [...] or prosecute any alcohol or drug abuse patient.[facility] Township[facility] the event this information is protected by the Federal Confidentiality of Alcohol and Drug Abuse Patient Records regulations: The Federal rules restrict any use of the information to criminally investigate or prosecute any alcohol or drug abuse patient.[facility] Township[facility] the event this information is protected by the Federal Confidentiality of Alcohol and Drug Abuse Patient Records regulations: The Federal rules restrict any use of the information to criminally investigate or prosecute any alcohol or drug abuse patient.[facility] Township[facility] the event this information is protected by the Federal Confidentiality of Alcohol and Drug Abuse Patient Records regulations: The Federal rules restrict any use of the information to criminally investigate or prosecute any alcohol or drug abuse patient.[facility] Township[facility] the event this information is protected by the Federal Confidentiality of Alcohol and Drug Abuse Patient Records regulations: The Federal rules restrict any use of the information to criminally investigate or prosecute any alcohol or drug abuse patient.[facility] Township[facility] the event this information is protected by the Federal Confidentiality of Alcohol and Drug Abuse Patient Records regulations: The Federal rules restrict any use of the information to criminally investigate or prosecute any alcohol or drug abuse patient.[facility] Township[facility] the event this information is protected by the Federal Confidentiality of Alcohol and Drug Abuse Patient Records regulations: The Federal rules restrict any use of the information to criminally investigate or prosecute any alcohol or drug abuse patient.[facility] Township[facility] the event this information is protected by the Federal Confidentiality of Alcohol and Drug Abuse Patient Records regulations: The Federal rules restrict any use of the information to criminally investigate or prosecute any alcohol or drug abuse patient.[facility] Township[facility] the event this information is protected by the Federal Confidentiality of Alcohol and Drug Abuse Patient Records regulations: The Federal rules restrict any use of the information to criminally investigate or prosecute any alcohol or drug abuse patient.[facility] Township[facility] the event this information is protected by the Federal Confidentiality of Alcohol and Drug Abuse Patient Records regulations: The Federal rules restrict any use of the information to criminally investigate or prosecute any alcohol or drug abuse patient.[facility] Township[facility] the event this information is protected by the Federal Confidentiality of Alcohol and Drug Abuse Patient Records regulations: The Federal rules restrict any use of the information to criminally investigate or prosecute any alcohol or drug abuse patient.[facility] TownshipIn the event this information is protected by the Federal Confidentiality of Alcohol and Drug Abuse Patient Records regulations: The Federal rules restrict any use of the information to criminally investigate or prosecute any alcohol or drug abuse patient.[facility] TownshipIn the event this information is protected by the Federal Confidentiality of Alcohol and Drug Abuse Patient Records regulations: The Federal rules restrict any use of the information to criminally investigate or prosecute any alcohol or drug abuse patient.[facility] TownshipIn the event this information is protected by the Federal Confidentiality of Alcohol and Drug Abuse Patient Records regulations: The Federal rules restrict any use of the information to criminally investigate or prosecute any alcohol or drug abuse patient.[facility] TownshipIn the event this information is protected by the Federal Confidentiality of Alcohol and Drug Abuse Patient Records regulations: The Federal rules restrict any use of the information to criminally investigate or prosecute any alcohol or drug abuse patient.[facility] TownshipIn the event this information is protected by the Federal Confidentiality of Alcohol and Drug Abuse Patient Records regulations: The Federal rules restrict any use of the information to criminally investigate or prosecute any alcohol or drug abuse patient.[facility] TownshipIn the event this information is protected by the Federal Confidentiality of Alcohol and Drug Abuse Patient Records regulations: The Federal rules restrict any use of the information to criminally investigate or prosecute any alcohol or drug abuse patient.[facility] TownshipIn the event this information is protected by the Federal Confidentiality of Alcohol and Drug Abuse Patient Records regulations: The Federal rules restrict any use of the information to criminally investigate or prosecute any alcohol or drug abuse patient.[facility] Teams (unrecognized sec tion and content) Student Recruiter Relationship Specialty Start Date End Date Zaid Marie III PCP - General Family Practice 02/24/16 Student Recruiter Relationship Specialty Start Date End Date Zaid Marie III PCP - General Family Medicine 02/24/16 Student Recruiter Relationship Specialty Start Date End Date Zaid Marie III PCP - General Family Medicine 02/24/16 Student Recruiter Relationship Specialty Start Date End Date Zaid Marie III PCP - General Family Medicine 02/24/16 Student Recruiter Relationship Specialty Start Date End Date Zaid Marie III PCP - General Family Medicine 02/24/16 Student Recruiter Relationship Specialty Start Date End Date Zaid Marie III PCP - General Family Medicine 02/24/16 Desirae Rosario MD [address] [place] [address] Referring Family Medicine 04/01/23 Student Recruiter Relationship Specialty Start Date End Date Zaid Marie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
[2025-04-06 05:32] LABS: Hematocrit 40.1 % (37-47); Hemoglobin 13.3 g/dL (12.0-15.0); Immature Granulocytes Count 0.030 X10^3/uL (0.0-0.0); Mean Corp Hgb Conc 33.2 g/dL (32-36); Mean Corpuscular Volume 90.7 fL (81-99); Mean Platelet Vol. 10.2 fl (6.2-12.0); NRBC Flagged by Analyzer 0 % (0-5); Platelet Count 223 K/mm3 (150-450); RBC Distribution Width CV 13.1 % (11.6-14.6); RBC Distribution Width SD 43.4 fl (35.1-43.9); Red Blood Count 4.42 M/mm3 (4.2-5.4); White Blood Count 7.1 K/mm3 (4.4-11.0)
[2025-04-06 06:00] LABS: AST(SGOT) 17 U/L (<=31); Alanine Aminotransfer ALT/SGPT 9 U/L (<=34); Albumin, Serum 3.7 g/dL (3.5-5.0); Alkaline Phosphatase 65 U/L (35-104); Anion Gap 12 (5-15); BUN 13 mg/dL (4-19); BUN/Creat Ratio 23.2 RATIO (10-20); Calcium,Total 9.3 mg/dL (7.6-11.0); Carbon Dioxide 17.9 mmol/L (21.0-32.0); Chloride 110 mmol/L (98-108); Estimated Creatinine Clearance 101.86 ml/min (50-250); Globulin 2.5 g/dL (2.2-4.2); Glucose 77 mg/dL (70-99); Potassium 4.2 mmol/L (3.3-5.1)
--- NOTE | 2025-04-06 08:51 | CASEMGMT ---
Social Work SW reviewed chart, it appears from [facility] paperwork pt has a guardian, the the guardian is not listed and there is no document in the chart showing guardianship. Pt's father is listed as the main contact in our chart, but that he also lives at [facility]. SW attempted to call [facility], nobody picked up the phone. SW sent updates in [facility] and requested information around who is pt's main contact and guardian, and also to send SW the paperwork. MICAHEL will continue to follow. ALLY Quinones
--- NOTE | 2025-04-06 10:12 | CASEMGMT ---
Addendum entered by Catie Jaquez 04/06/25 10:50: Social Work Pt is intermediate level of care, penitentiary pt at [facility]. [facility] did send over guardianship document showing pt's parents are her guardians. MICHAEL placed this on the chart along w/green sheet and transport form in event pt can d/c back to [facility] on the weekend. ALLY Quinones Original Note: Social Work SW did hear back from [facility] that her parents are co-guardians, and they will email SW the guardian documents. MICHAEL called pt's father, he confirms plan will be for pt to return to [facility] at d/c, so SNF list not needed. MICHAEL sent updates in [facility], pt can return when medically ready. MICHAEL also received a call from Ada at [facility] for an update on pt, SW gave update. MICHAEL will place green sheet and transport form on chart once SW has the contact information for [facility] for the weekend. ALLY Quinones
--- NOTE | 2025-04-06 14:33 | PN_ITS ---
Subjective Subjective Patient seen and examined. Unable to do review of systems due to patient's severe autism and confusion. Unable to do any comprehensive review of systems. She answers questions occasionally with yes and okay. Unable to do review of systems. She has remained hemodynamically stable. Objective Data Objective Data Vital Signs: Vital Signs Temp Pulse Resp BP Pulse Ox O2 Del Method 98.2 F 81 14 133/90 H 91 Room Air 04/06/25 09:22 04/06/25 09:22 04/06/25 09:22 04/06/25 09:22 04/06/25 09:22 04/06/25 09:22 Oxygen Delivery Method Room Air Weight: 116 lb 2.938 oz Body Mass Index (BMI) 21.4 Intake & Output: Intake and Output for Last 24 Hours 04/04/25 04/05/25 04/06/25 23:59 23:59 23:59 Intake Total 500 / 500 1546.67 / 1546.67 Balance 500 / 500 1546.67 / 1546.67 Lab / Micro Data 04/06/25 04:38 04/06/25 04:38 Labs: Laboratory Results - last 24 hr 04/05/25 21:48: WBC 8.4, RBC 5.04, Hgb 15.5 H, Hct 45.4, MCV 90.1, MCH 30.8, MCHC 34.1, RDW Std Deviation 42.5, RDW Coeff of Russell 13.0, Plt Count 227, MPV 9.9, Immature Gran % (Auto) 0.500, Neut % (Auto) 51.3, Lymph % (Auto) 37.3, Cowley % (Auto) 9.0, Eos % (Auto) 1.4, Baso % (Auto) 0.5, Absolute Neuts (auto) 4.3, Absolute Lymphs (auto) 3.14, Nucleated RBC % 0, Sodium 141, Potassium 3.4, Chloride 107, Carbon Dioxide 18.5 L, Anion Gap 16 H, BUN 15, Creatinine 0.62 L, Estim Creat Clear Calc 106.60, Est GFR (MDRD) Non-Af 110, BUN/Creatinine Ratio 24.3 H, Glucose 88, Calcium 9.8, Total Creatine Kinase 142 04/05/25 23:00: Urine Color Yellow, Urine Clarity Sl. Cloudy, Urine pH 6.0, Ur Specific [place] 1.030, Urine Protein 30 H, Urine Glucose (UA) Normal, Urine Ketones 50 H, Urine Occult Blood 10 H, Urine Nitrite Negative, Urine Bilirubin Negative, Urine Urobilinogen Normal, Ur Leukocyte Esterase 500 H, Urine RBC 0 SEEN, Urine WBC 10-25 SEEN, Ur Squamous Epith Cells 0-5 SEEN, Urine Bacteria 1+, Urine Mucus 0 SEEN 04/06/25 04:38: WBC 7.1, RBC 4.42, Hgb 13.3, Hct 40.1, MCV 90.7, MCH 30.1, MCHC 33.2, RDW Std Deviation 43.4, RDW Coeff of Russell 13.1, Plt Count 223, MPV 10.2, Immature Gran % (Auto) 0.400, Neut % (Auto) 43.5 L, Lymph % (Auto) 42.7 H, Cowley % (Auto) 10.4 H, Eos % (Auto) 2.3, Baso % (Auto) 0.7, Absolute Neuts (auto) 3.1, Absolute Lymphs (auto) 3.03, Nucleated RBC % 0, Sodium 140, Potassium 4.2, C hloride 110 H, Carbon Dioxide 17.9 L, Anion Gap 12, BUN 13, Creatinine 0.54 L, Estim Creat Clear Calc 101.86, Est GFR (MDRD) Non-Af 114, BUN/Creatinine Ratio 23.2 H, Glucose 77, Calcium 9.3, Total Bilirubin 0.47, AST 17, ALT 9, Alkaline Phosphatase 65, Total Protein 6.2, Albumin 3.7, Globulin 2.5, Albumin/Globulin Ratio 1.5 Radiography Diagnostic Testing: Radiology Impression Chest X-Ray 04/05/25 22:20 IMPRESSION: No Acute Findings. Reading Location: [facility] Rhythm Strip Rhythm Strip: Sinus Rhythm Rate: 88 Ectopy: None Physical Exam Const alert Orientation / Consciousness: confused HEENT normocephalic, head/scalp atraumatic and moist oral mucous membranes Eyes EOMs intact bilaterally Neck supple and no JVD Lymph Lymphatic: no lymphedema noted Resp normal respiratory effort, normal air movement and clear to auscultation bilaterally Cardio regular rate, regular rhythm, S1 normal heart sound, S2 normal heart sound and no murmurs GI normal to inspection, nondistended, normoactive bowel sounds, soft to palpation, non-tender and non-distended Extremity normal capillary refill, no clubbing, cyanosis or edema and no calf tenderness General Extremity: no tenderness to palpation of joints or extremities Skin General Skin Exam: no breakdown Neuro Neuro Narrative: Patient has severe autism and is largely nonverbal. Moves all extremities spontaneously. Assessment & Plan Assessment/Plan (1) Urinary tract infection: PLAN: Plan #Acute encephalopathy and agitation due to UTI * Patient has severe autism at baseline with behavioral disturbance. However she had become more agitated in her facility and refusing to take her meds. Urinalysis done showed evidence of UTI. * On IV Rocephin. PT OT on board. * Urine cultures pending. #Severe autistic disorder with intellectual disability * Answers only yes and okay to questions. Quite agitated. Continue current psychiatric regimen. #Paroxysmal A-fib: Not on any meds as of now. Has been in normal sinus rhythm. #Generalized anxiety disorder with depression and medical disorder: #Chronic orthostatic hypotension: On midodrine #Allergic rhinitis: On montelukast #GERD: PPI DVT prophylaxis: Lovenox Code status: DNRCCA no intubation per SNF documentation Charges/Coding Visit Charges Inpatient E&M: 53384 Subs Hosp L2
--- NOTE | 2025-04-06 16:06 | NURSING ---
complete bed change d/t incont. pt pulled iv out. hollering out throughout entire bed change. pt now eating lunch w/out issues and allowed her hair to be washed w/shower cap. partial vs obtained, pt would not allow temp
[2025-04-06] MEDS: MELATONIN 3 MG TABLET 5 MG PO (21:54)
[2025-04-07 04:04] VITALS: BMI 21.2
[2025-04-07 04:37] VITALS: BP 119/69; PULSE 99; RESP 16; O2SAT 100
[2025-04-07 05:52] LABS: Hematocrit 41.8 % (37-47); Hemoglobin 13.2 g/dL (12.0-15.0); Immature Granulocytes Count 0.050 X10^3/uL (0.0-0.0); Mean Corp Hgb Conc 31.6 g/dL (32-36); Mean Corpuscular Volume 94.8 fL (81-99); Mean Platelet Vol. 10.1 fl (6.2-12.0); NRBC Flagged by Analyzer 0 % (0-5); Platelet Count 244 K/mm3 (150-450); RBC Distribution Width CV 13.1 % (11.6-14.6); RBC Distribution Width SD 45.7 fl (35.1-43.9); Red Blood Count 4.41 M/mm3 (4.2-5.4); White Blood Count 7.0 K/mm3 (4.4-11.0)
[2025-04-07 06:19] LABS: Anion Gap 13 (5-15); BUN 10 mg/dL (4-19); BUN/Creat Ratio 18.6 RATIO (10-20); Calcium,Total 9.0 mg/dL (7.6-11.0); Carbon Dioxide 15.5 mmol/L (21.0-32.0); Chloride 110 mmol/L (98-108); Estimated Creatinine Clearance 98.22 ml/min (50-250); Glucose 80 mg/dL (70-99); Potassium 4.9 mmol/L (3.3-5.1)
[2025-04-07 06:50] VITALS: O2SAT 97
[2025-04-07 07:46] VITALS: BP 133/82; PULSE 114; RESP 15; TEMP 37.2; O2SAT 96
--- NOTE | 2025-04-07 09:43 | PN_ITS ---
Subjective Subjective Patient seen and examined. Patient is a bit agitated this morning just keeps screaming no no. She refuses physical examination. Her heart rate is elevated at 114 this morning but is otherwise hemodynamically stable. Objective Data Objective Data Vital Signs: Vital Signs Temp Pulse Resp BP Pulse Ox O2 Del Method 98.9 F 114 H 15 133/82 H 96 Room Air 04/07/25 07:46 04/07/25 07:46 04/07/25 07:46 04/07/25 07:46 04/07/25 07:46 04/07/25 07:46 Oxygen Delivery Method Room Air Weight: 115 lb 11.883 oz Body Mass Index (BMI) 21.2 Intake & Output: Intake and Output for Last 24 Hours 04/05/25 04/06/25 04/07/25 23:59 23:59 23:59 Intake Total 500 / 500 1596.67 / 1596.67 50 / 50 Balance 500 / 500 1596.67 / 1596.67 50 / 50 Lab / Micro Data 04/07/25 05:05 04/07/25 05:05 Labs: Laboratory Results - last 24 hr 04/07/25 05:05: WBC 7.0, RBC 4.41, Hgb 13.2, Hct 41.8, MCV 94.8, MCH 29.9, MCHC 31.6 L, RDW Std Deviation 45.7 H, RDW Coeff of Russell 13.1, Plt Count 244, MPV 10.1, Immature Gran % (Auto) 0.700, Neut % (Auto) 38.1 L, Lymph % (Auto) 48.2 H, [place] % (Auto) 9.4, Eos % (Auto) 2.9, Baso % (Auto) 0.7, Absolute Neuts (auto) 2.7, Absolute Lymphs (auto) 3.38, Nucleated RBC % 0, Sodium 138, Potassium 4.9, Chloride 110 H, Carbon Dioxide 15.5 L, Anion Gap 13, BUN 10, Creatinine 0.56 L, Estim Creat Clear Calc 98.22, Est GFR (MDRD) Non-Af 113, BUN/Creatinine Ratio 18.6, Glucose 80, Calcium 9.0 Rhythm Strip Rhythm Strip: Sinus Rhythm Rate: 88 Ectopy: None Physical Exam Const alert Constitutional Narrative: uncooperative. Yelling loudly Orientation / Consciousness: confused HEENT normocephalic, head/scalp atraumatic and moist oral mucous membranes Eyes EOMs intact bilaterally Neck supple and no JVD Lymph Lymphatic: no lymphedema noted Resp normal respiratory effort, normal air movement and clear to auscultation bilaterally Cardio regular rhythm, S1 normal heart sound, S2 normal heart sound and no murmurs Cardio Narrative: tachycardic GI normal to inspection, nondistended, normoactive bowel sounds, soft to palpation, non-tender and non-distended Extremity normal capillary refill, no clubbing, cyanosis or edema and no calf tenderness General Extremity: no tenderness to palpation of joints or extremities Skin General Skin Exam: no breakdown Neuro Neuro Narrative: Patient has severe autism and is largely nonverbal. Moves all extremities spontaneously. Psych Psych Narrative: agitated, refusing physical examination Assessment & Plan Assessment/Plan (1) Urinary tract infection: PLAN: Plan #Acute encephalopathy and agitation due to UTI * Patient has severe autism at baseline with behavioral disturbance. However she had become more agitated in her facility and refusing to take her meds. Urinalysis done showed evidence of UTI. * On IV Rocephin. PT OT on board. * She remains agitated today and is refusing physical examination this morning. Continue IV ceftriaxone * Urine cultures pending. #Severe autistic disorder with intellectual disability * Answers only yes and okay to questions. Quite agitated. Continue current psychiatric regimen. #Paroxysmal A-fib: Not on any meds as of now. Has been in normal sinus rhythm. #Generalized anxiety disorder with depression and medical disorder: #Chronic orthostatic hypotension: On midodrine #Allergic rhinitis: On montelukast #GERD: PPI DVT prophylaxis: Lovenox Code status: DNRCCA no intubation per SNF documentation Charges/Coding Visit Charges Inpatient E&M: 65018 Subs Hosp L2
[2025-04-07] MEDS: MELATONIN 3 MG TABLET 5 MG PO (23:07)
[2025-04-07 23:11] VITALS: BP 185/89; PULSE 120; RESP 16; TEMP 36.6; O2SAT 97
[2025-04-08 04:02] VITALS: BMI 21.9
[2025-04-08 04:15] VITALS: BP 118/97; PULSE 115
[2025-04-08 06:45] LABS: Hematocrit 41.9 % (37-47); Hemoglobin 14.0 g/dL (12.0-15.0); Immature Granulocytes Count 0.050 X10^3/uL (0.0-0.0); Mean Corp Hgb Conc 33.4 g/dL (32-36); Mean Corpuscular Volume 89.7 fL (81-99); Mean Platelet Vol. 9.9 fl (6.2-12.0); NRBC Flagged by Analyzer 0 % (0-5); Platelet Count 282 K/mm3 (150-450); RBC Distribution Width CV 13.1 % (11.6-14.6); RBC Distribution Width SD 42.5 fl (35.1-43.9); Red Blood Count 4.67 M/mm3 (4.2-5.4); White Blood Count 8.9 K/mm3 (4.4-11.0)
[2025-04-08 07:13] LABS: Anion Gap 16 (5-15); BUN 7 mg/dL (4-19); BUN/Creat Ratio 10.9 RATIO (10-20); Calcium,Total 9.8 mg/dL (7.6-11.0); Carbon Dioxide 18.2 mmol/L (21.0-32.0); Chloride 107 mmol/L (98-108); Estimated Creatinine Clearance 85.95 ml/min (50-250); Glucose 98 mg/dL (70-99); Potassium 4.3 mmol/L (3.3-5.1)
--- NOTE | 2025-04-08 07:25 | PN.HOSP_ITS ---
Reason for Visit Chief Complaint: Agitation/combativeness, refusing meds. Subjective Subjective Patient with ongoing behavioral issues. Per her father she was doing well until November when she was admitted in the hospital and was required discharge to skilled facility. Since that point in time she has not been able to walk consistently. She has had extensive workup here and at [facility] in [place]. Nothing organic has been found at this time and he agrees that this is likely behavioral. He would very much like to get her back to home environment that she is familiar with and see how she does in that setting. We did discuss adding some low-dose risperidone and see how she responds. He did indicate she had been on this previously but much higher doses than discussed and we will see how she does. Also would like to see if we could liberalize diet under the direction of speech therapy. Objective Data Objective Data Vital Signs: Vital Signs Temp Pulse Resp BP Pulse Ox O2 Del Method 97.8 F 115 H 16 118/97 H 97 Room Air 04/07/25 23:11 04/08/25 04:15 04/07/25 23:11 04/08/25 04:15 04/07/25 23:11 04/07/25 23:11 Oxygen Delivery Method Room Air Weight: 54.1 kg Body Mass Index (BMI) 21.9 Intake & Output: Intake and Output for Last 24 Hours 04/06/25 04/07/25 04/08/25 23:59 23:59 23:59 Intake Total 1596.67 / 1596.67 50 / 150 150 / 150 Balance 1596.67 / 1596.67 50 / 150 150 / 150 Lab / Micro Data 04/08/25 06:35 04/08/25 06:35 Labs: Laboratory Results - last 24 hr 04/08/25 06:35: WBC 8.9, RBC 4.67, Hgb 14.0, Hct 41.9, MCV 89.7 D, MCH 30.0, M CHC 33.4 D, RDW Std Deviation 42.5, RDW Coeff of Russell 13.1, Plt Count 282, MPV 9.9, Immature Gran % (Auto) 0.600, Neut % (Auto) 46.5 L, Lymph % (Auto) 41.7 H, [place] % (Auto) 9.2, Eos % (Auto) 1.4, Baso % (Auto) 0.6, Absolute Neuts (auto) 4.1, Absolute Lymphs (auto) 3.69, Nucleated RBC % 0, Sodium 141, Potassium 4.3, Chloride 107, Carbon Dioxide 18.2 L, Anion Gap 16 H, BUN 7, Creatinine 0.64 L, Estim Creat Clear Calc 85.95, Est GFR (MDRD) Non-Af 110, BUN/Creatinine Ratio 10.9, Glucose 98, Calcium 9.8 Micro: Microbiology 04/06/25 23:00 Urine, Catheterized Urine Culture - Preliminary GNR 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 GNR Poss Pseudomonas sp GPC Poss Enterococcus sp Rhythm Strip Rhythm Strip: Sinus Rhythm Rate: 88 Ectopy: None Physical Exam Const alert, no apparent distress and average body habitus Constitutional Narrative: Intermittently agitated, middle-aged, white female, sitting up in bed, nursing and father at bedside, does not appear uncomfortable or in pain, nontoxic appearing HEENT HEENT Narrative: Patient refuses oral exam Head and Scalp: normocephalic Resp normal respiratory effort, no retractions, no use of accessory muscles and clear to auscultation bilaterally Auscultation: Negative for rales, rhonchi or wheezes Cardio regular rhythm, S1 normal heart sound, S2 normal heart sound, no murmurs, no rub, no gallops and no clicks Cardio Narrative: Mild tachycardia GI normal to inspection, nondistended, normoactive bowel sounds, soft to palpation and non-tender Extremity no clubbing, cyanosis or edema Extremity Narrative: 2+ pedal pulses, 2+ radial pulses, decreased lean muscle mass Neuro Neuro Narrative: Lower extremity stay flex which is where she traditionally keeps him per father, moves upper extremities without any deficits noted, intermittently refuses to follow commands and allow evaluation so overall exam is difficult Speech: Negative for speech normal Psych Psych Narrative: Intermittently agitated and appears intermittently anxious Assessment & Plan Assessment/Plan (1) Generalized anxiety disorder: (2) Dehydration: (3) Agitation: PLAN: Plan Agitation - This appears to be behavioral at this time - Will continue Depakote - Trial of risperidone 0.5 mg at at bedtime with scheduled melatonin 10 mg - 2.5 mg in a.m. - Will utilize as needed IM Haldol 2 mg every 4 hours for severe agitation as she is intermittently combative and noncompliant - Has had extensive organic workup with no findings - Initially thought may be related to urinary tract infection however cultures unremarkable with less than the thousand CFU's per high-power field for any organisms identified so we will discontinue IV fluids - Extensive conversation with the father and would like to try to get her back to a familiar living environment and see if she thrives in that environment rather than going back to skilled facility as he and I both agree that this sounds more behavioral than anything UTI - Ruled out with negative culture - Discontinue IV antibiotics Dehydration Resolved Anion gap metabolic acidosis - Very mild with an anion gap of 16 and a serum bicarb of 18.2 - Patient clinically appears okay Friend will repeat lab in a morning Tachycardia - Will add propranolol low-dose twice daily as this also may help with her behaviors Dysphagia - Patient had been on a modified diet and it sounds like this was predominantly initiated due to decreased liquid intake in the hopes that a pur?ed diet would increase her fluid intake however she does not seem satisfied of this - Consult speech therapy and advance diet as able Severe autistic disorder with intellectual disability - Remains quite agitated - Medication trials as noted above History of paroxysmal atrial fibrillation - Normal sinus rhythm during hospitalization - Propranolol added to see below help decrease her mild tachycardia that is sinus driven - On no anticoagulation MARZENA/depression - Continue home medications Chronic orthostatic hypotension - Continue home midodrine GERD - Continue PPI Allergic rhinitis Can continue montelukast DVT prophylaxis -continue subcu Lovenox CODE STATUS - DNR CCA with no intubation Charges/Coding Visit Charges Inpatient E&M: 84193 Subs Hosp L2
--- NOTE | 2025-04-08 07:57 | PCM.PN.HOSP ---
Reason for Visit Chief Complaint: Agitation/combativeness, refusing meds. Objective Data Objective Data Vital Signs: Vital Signs Temp Pulse Resp BP Pulse Ox O2 Del Method 97.8 F 115 H 16 118/97 H 97 Room Air 04/07/25 23:11 04/08/25 04:15 04/07/25 23:11 04/08/25 04:15 04/07/25 23:11 04/07/25 23:11 Oxygen Delivery Method Room Air Weight: 54.1 kg Body Mass Index (BMI) 21.9 Intake & Output: Intake and Output for Last 24 Hours 04/06/25 04/07/25 04/08/25 23:59 23:59 23:59 Intake Total 1596.67 / 1596.67 50 / 150 150 / 150 Balance 1596.67 / 1596.67 50 / 150 150 / 150 Lab / Micro Data 04/08/25 06:35 04/08/25 06:35 Labs: Laboratory Results - last 24 hr 04/08/25 06:35: WBC 8.9, RBC 4.67, Hgb 14.0, Hct 41.9, MCV 89.7 D, MCH 30.0, MCHC 33.4 D, RDW Std Deviation 42.5, RDW Coeff of Russell 13.1, Plt Count 282, MPV 9.9, Immature Gran % (Auto) 0.600, Neut % (Auto) 46.5 L, Lymph % (Auto) 41.7 H, [place] % (Auto) 9.2, Eos % (Auto) 1.4, Baso % (Auto) 0.6, Absolute Neuts (auto) 4.1, Absolute Lymphs (auto) 3.69, Nucleated RBC % 0, Sodium 141, Potassium 4.3, Chloride 107, Carbon Dioxide 18.2 L, Anion Gap 16 H, BUN 7, Creatinine 0.64 L, Estim Creat Clear Calc 85.95, Est GFR (MDRD) Non-Af 110, BUN/Creatinine Ratio 10.9, Glucose 98, Calcium 9.8 Micro: Microbiology 04/06/25 23:00 Urine, Catheterized Urine Culture - Preliminary GNR lactose insect control inspector GNR Poss Pseudomonas sp GPC Poss Enterococcus sp Rhythm Strip Rhythm Strip: Sinus Rhythm Rate: 88 Ectopy: None
--- NOTE | 2025-04-08 09:14 | CASEMGMT ---
Discharge Planning Updates sent to [facility]. Jaquelin Clements DC Planning Asst.
[2025-04-08 09:28] VITALS: BP 168/101; PULSE 116; RESP 16; TEMP 36.1; O2SAT 99
--- NOTE | 2025-04-08 09:30 | NURSING ---
unable to to complete assessment d/t withdrawals, resistive to care, uncooperative
--- NOTE | 2025-04-08 11:14 | CASEMGMT ---
Social Work- SW spoke with pt father to discuss discharge plans. Pt father reports that pt was in a correction in [place] prior to SNF stay. Pt father reports that they bought a home in [place] and moved two roommates into the home and are just waiting for pt to be able to live there as well. Phong reports that pt previously attended a Day program and had [facility], which has reported at current time that they will need to have 2 staff with pt. Phong reports he is working with [facility] to have second aide placed. Phong reports that pt used to take meds out of his hand and ate a regular diet prior to most recent medical downturn. Phong reports that pt does not like pureed diet and has struggled to have much intake, which he feels like contributes to physical decline as well. Phong and are undecided what discharge plans will be; they will discuss and update SW later today or tomorrow morning. SW remains available to follow. MARIBEL Kramer
--- NOTE | 2025-04-08 14:57 | NURSING ---
continues to kick at staff, spit, yell out. tv turned on for distraction. lights lowered to help with calming of room. sitter 1:1 remains at bedside
--- NOTE | 2025-04-08 17:35 | NURSING ---
pt continues to yell out, hit towards staff and spit food/liquid out at staff when it is offered. distraction toys provided and pt is working on toys (blocks in holes)
[2025-04-08 20:30] VITALS: BP 145/98; PULSE 110; RESP 18; TEMP 36.6; O2SAT 100
[2025-04-08] MEDS: MELATONIN 10 MG TABLET PO (20:32)
[2025-04-09 06:00] VITALS: BMI 22.6
[2025-04-09 07:07] LABS: Ammonia 26.9 umol/L (11-51)
[2025-04-09 08:50] VITALS: PULSE 114; RESP 18; O2SAT 95
[2025-04-09 10:05] VITALS: O2SAT 96
--- NOTE | 2025-04-09 12:45 | CASEMGMT ---
Social Work- MICHAEL met with pt parents to discuss plans for discharge. Pt parents are checking with Tiesha, scrum project manager, to see if pt would be appropriate to d/c there. Parents are open to crisis assessment to discuss psych placement. MICHAEL collaborated with hospitalist; hospitalist also discussed psych assessment with parents and is agreeable to referral. MICHAEL completed referral. MICHAEL followed up with pt parents who report that Tiesha is not comfortable with pt returning at this time and prefers a psych assessment. Tiesha would like discharge paperwork faxed at time of d/c. Tiesha phone: [phone]. Tiesha fax: [phone]. Tiesha reports this is not pt baseline and feels that med changes have contributed to increase in behaviors and that pt will benefit from med stabilization. MICHAEL called [facility] and spoke with Jose Luis to follow up and provide verbal information. MICHAEL remains available to follow. MARIBEL Kramer
--- NOTE | 2025-04-09 16:04 | CASEMGMT ---
Social Work- MICHAEL called Joanie at [facility] to follow up on crisis assessment. Joanie does not feel pt is appropriate for psych placement at this time due to cognitive function. Joanie reports that she spoke with DD board who reports that [facility] level of care is also not appropriate, as they are working on the 2nd aide for personal care. Joanie suggested return to [facility] with their psych dr assisting with med adjustments. MICHAEL updated hospitalist. MICHAEL called pt father and left a brief non-descript voicemail. MICHAEL remains available to follow. MARIBEL Kramer
--- NOTE | 2025-04-09 16:24 | CASEMGMT ---
Discharge Planning Updates sent to [facility]. Jaquelin Clements DC Planning Asst.
[2025-04-09 16:50] VITALS: BP 107/61; PULSE 115; RESP 16
--- NOTE | 2025-04-09 16:58 | PN.HOSP_ITS ---
Reason for Visit Chief Complaint: Agitation/combativeness, refusing meds. Subjective Subjective Patient with intermittent agitation overnight. Did require some IM Haldol. Further discussion with parents today. We will go ahead and proceed with psychiatric consultation to see what their recommendations are and family is considering taking her home to see how she does in her home environment. She does seem to do better when parents are here both with eating and drinking and overall function and agitation. Objective Data Objective Data Vital Signs: Vital Signs Temp Pulse Resp BP Pulse Ox O2 Del Method 97.9 F 115 H 16 107/61 96 Room Air 04/08/25 20:30 04/09/25 16:50 04/09/25 16:50 04/09/25 16:50 04/09/25 10:05 04/09/25 10:05 Oxygen Delivery Method Room Air Weight: 55.8 kg Body Mass Index (BMI) 22.6 Intake & Output: Intake and Output for Last 24 Hours 04/07/25 04/08/25 04/09/25 23:59 23:59 23:59 Intake Total 50 / 150 150 / 150 50 / 50 Balance 50 / 150 150 / 150 50 / 50 Lab / Micro Data 04/08/25 06:35 04/08/25 06:35 Labs: Laboratory Results - last 24 hr 04/09/25 06:30: Ammonia 26.9 Micro: Microbiology 04/06/25 23:00 Urine, Catheterized Urine Culture - Preliminary Escherichia coli Pseudomonas aeruginosa Enterococcus faecalis Rhythm Strip Rhythm Strip: Sinus Rhythm Rate: 88 Ectopy: None Physical Exam Const alert, no apparent distress and average body habitus Constitutional Narrative: Intermittently agitated, middle-aged, white female, sitting up in bed naked but was agreeable to allowing me to put her down on, sitter at the bedside, does not appear uncomfortable or in pain, nontoxic appearing HEENT normocephalic, head/scalp atraumatic and moist oral mucous membranes Resp normal respiratory effort, normal air movement, no retractions, no use of accessory muscles and clear to auscultation bilaterally Auscultation: Negative for rales, rhonchi or wheezes Cardio regular rhythm, S1 normal heart sound, S2 normal heart sound, no murmurs, no rub, no gallops and no clicks Cardio Narrative: Mild tachycardia GI normal to inspection, nondistended, normoactive bowel sounds, soft to palpation and non-tender Extremity no clubbing, cyanosis or edema Extremity Narrative: 2+ pedal pulses, 2+ radial pulses, decreased lean muscle mass Neuro Neuro Narrative: Patient is moving all extremities spontaneously with no apparent focal deficit, exam is limited due to intermittent compliance Speech: Negative for speech normal Psych Psych Narrative: Still intermittently agitated and appears intermittently anxious Assessment & Plan Assessment/Plan (1) Generalized anxiety disorder: (2) Dehydration: (3) Agitation: PLAN: Plan Agitation - This appears to be behavioral at this time - Will continue Depakote - Continue current dose of risperidone and melatonin - As needed IM Haldol available - Psychiatry consultation to see if we can adjust medications if not amenable to inpatient psych will see what outpatient services are available - Has had extensive organic workup with no findings - Anticipate plan to discharge to her care home Anion gap metabolic acidosis - Very mild with an anion gap of 16 and a serum bicarb of 18.2 - Patient clinically appears okay -Repeat a.m. lab Tachycardia - Continue propranolol Dysphagia - Continue speech therapy - Patient is on a more liberalized diet and seems to be doing better especially when family is present Severe autistic disorder with intellectual disability - Remains quite agitated but seems to be better when family is at the bedside highly suspect this is all behavioral - Medication trials as noted above History of paroxysmal atrial fibrillation - Normal sinus rhythm during hospitalization - Propranolol added to see below help decrease her mild tachycardia that is sinus driven - On no anticoagulation MARZENA/depression - Continue home medications Chronic orthostatic hypotension - Continue home midodrine GERD - Continue PPI Allergic rhinitis Can continue montelukast DVT prophylaxis -continue subcu Lovenox CODE STATUS - DNR CCA with no intubation Charges/Coding Visit Charges Inpatient E&M: 93033 Subs Hosp L2
[2025-04-09 20:12] VITALS: BMI 22.6
[2025-04-09] MEDS: MELATONIN 10 MG TABLET PO (21:44)
--- NOTE | 2025-04-09 22:08 | NURSING ---
pt very agitated at this time, first refusing her vitals taken and refused to take meds. pt decided she wanted ice cream. crushed pts meds and mixed with ice cream. pt bite the spoon really hard and this RN let go of the spoon. noted pts lips started bleeding. pt was able to take some of her meds but was not able to give bp meds d/t pt refused vitals and assessment. sitter at bedside. pt sitting on glenn chair.
--- NOTE | 2025-04-10 00:07 | PCM.HOSP.N ---
Hospitalist Note Pt having extreme behaviors: ripping her brief apart, attempting to get out of bed, yelling out, and resisting care from staff. RN tells me that her PRN haloperidol makes everything worse. Noted increased dosing of risperidone at QHS to 0.5mg and 0.25mg QAM, with scheduled dosing of lorazepam 0.5mg PO twice daily. Ordered placed for lorazepam 0.5mg SL x1 now as the pt is refusing whole medications at times.
[2025-04-10] MEDS: LORazepam 2 MG/ML Bottle 0.5 MG SL (00:28)
[2025-04-10 06:35] VITALS: BP 119/64; PULSE 114; RESP 18; TEMP 36.7; O2SAT 96
[2025-04-10 06:54] LABS: Hematocrit 38.2 % (37-47); Hemoglobin 12.8 g/dL (12.0-15.0); Mean Corp Hgb Conc 33.5 g/dL (32-36); Mean Corpuscular Volume 89.7 fL (81-99); Mean Platelet Vol. 9.7 fl (6.2-12.0); Platelet Count 223 K/mm3 (150-450); RBC Distribution Width CV 13.2 % (11.6-14.6); RBC Distribution Width SD 43.8 fl (35.1-43.9); Red Blood Count 4.26 M/mm3 (4.2-5.4); White Blood Count 7.3 K/mm3 (4.4-11.0)
[2025-04-10 07:47] LABS: Anion Gap 11 (5-15); BUN 7 mg/dL (4-19); BUN/Creat Ratio 14.6 RATIO (10-20); Calcium,Total 8.9 mg/dL (7.6-11.0); Carbon Dioxide 23.0 mmol/L (21.0-32.0); Chloride 108 mmol/L (98-108); Estimated Creatinine Clearance 112.26 ml/min (50-250); Glucose 87 mg/dL (70-99); Potassium 3.4 mmol/L (3.3-5.1)
[2025-04-10] MEDS: LORazepam 2 MG/ML Bottle 0.5 MG PO ×2 (09:31→22:06)
--- NOTE | 2025-04-10 10:29 | NURSING ---
mom and dad are here. mom got pt to take her meds crushed and mixed into her ensure nutrition drink
[2025-04-10 11:33] VITALS: O2SAT 95
--- NOTE | 2025-04-10 12:45 | CASEMGMT ---
Social Work- SW met with pt father who reports that they will d/c back to [facility], as they are unable to get the second aide needed for pt to return to [facility]. Pt father had medical questions that SW forwarded to bedside nurse and hospitalist. DCA updated on d/c readiness. Plan: MARIBEL Ross
--- NOTE | 2025-04-10 14:21 | PCM.DC.SUM ---
Providers Date of Admission: 04/06/25 Date of Discharge: 04/10/25 Primary Care Physician: Dr. Abby Carrillo MD Reason For Visit: ENCEPHALOPATHY UTI Diagnosis Discharge Diagnosis (1) Generalized anxiety disorder: Status: Acute Code(s): F41.1 - Generalized anxiety disorder (2) Dehydration: Status: Acute Code(s): E86.0 - Dehydration (3) Agitation: Status: Acute Code(s): R45.1 - Restlessness and agitation Medications at Discharge Home Medications amantadine HCl 100 mg capsule 100 mg PO BID 12/25/24 aspirin 81 mg chewable tablet 1 tab PO DAILY 12/25/24 atropine 1 % eye drops 2 drp sublingual BID 12/25/24 cholecalciferol (vitamin D3) 50 mcg (2,000 unit) capsule (Vitamin D3) 50 mcg PO DAILY 12/25/24 divalproex 500 mg tablet,delayed release 500 mg PO BID 12/25/24 fludrocortisone 0.1 mg tablet 0.2 mg PO BID 12/25/24 fluoride (sodium) 1.1 % dental gel (DentaGel) 1 applic dental QHS 12/25/24 loperamide 2 mg capsule (Anti-Diarrheal (loperamide)) 2 mg PO Q8H PRN loose stool 12/25/24 midodrine 5 mg tablet 10 mg PO BID 12/25/24 montelukast 10 mg tablet 10 mg PO DAILY 12/25/24 pantoprazole 40 mg tablet,delayed release 40 mg PO DAILY 12/25/24 polyethylene glycol 3350 17 gram/dose oral powder (ClearLax) 17 g PO DAILY PRN constipation 12/25/24 trazodone 50 mg tablet 50 mg PO QHS 12/25/24 acetaminophen 325 mg tablet 650 mg PO Q4H PRN fever or pain 03/05/25 docusate sodium 100 mg capsule (Colace) 100 mg PO DAILY PRN constipation 03/05/25 lorazepam 0.5 mg tablet 0.5 mg PO BID 03/05/25 melatonin 5 mg chewable tablet 5 mg PO QHS PRN sleep 03/05/25 lorazepam 2 mg/mL injection solution (Ativan) 0.25 mg IM Q24H PRN agitation 04/06/25 lorazepam 2 mg/mL oral concentrate 1 mg (0.5 mL) PO TID #30 mL 04/10/25 naltrexone 50 mg tablet 25 mg (1/2 x 50 mg) PO DAILY #1 TAB 04/10/25 Hospital Course Operations None Procedures EKG and - (CXR) Summary of Care Provided Minutes Spent on Discharge: 38 Hospital Course: Brina Joiner is a 49-year-old white female who presented to the emergency department at [facility] on 04/10/2025 due to agitation and combativeness. Patient has been residing at [facility] intermittently since the end of November of this year and while she has been there recently she had been having increased agitation and refusal to take her medications as well as decreased p.o. intake due to refusal. She had been combative all day of admission and yelling out since approximately 4 AM on the day of admission. Patient was not able to cooperate with exam and has chronic intellectual disability and severe autism at baseline vital signs on presentation. Vital signs on presentation show temperature 96.4, heart rate 101, blood pressure was 95/65, respiratory rate was 18, sats were 92% on room air. Her CBC was unremarkable with a normal white count and no left shift. BMP showed a serum bicarb of 18.5 and an anion gap of 16 with a normal creatinine, normal CK and a UA that was consistent with dehydration having a specific gravity 1.03 and possible suggestion of infection with count of occult blood, no nitrites, leuk esterase, white cells at 10-25 per high-power field and 1+ bacteria. Urine culture was ordered and the patient was started on IV antibiotics. In the emergency department she was given Geodon 20 mg IM x 1 dose Ativan 2 mg IM x 1 dose, Haldol 5 mg IM x 1 dose as well as 500 cc fluid bolus. After further discussion with family after she was admitted patient has been having intermittent issues with this. She had an extended hospitalization at [facility] where an MRI and LP were performed. All organic workup has been unremarkable at this time and per discussion with family as well as my own assessment we feel that this is predominantly behavioral. We did try to adjust her medications. At baseline she has been on Ativan 1 mg in the morning and 0.5 mg at night as well as Depakote 500 mg p.o. twice daily and amantadine when she will comply. Ammonia level was normal. Urine culture ended up growing 3 organisms but all CFU's were less than at thousand per high-powered field not indicative of infection being the etiology of her agitation so antibiotics were discontinued. We did try some additional medications including risperidone with no success. Crisis was consulted and did not feel she was appropriate for acute psychiatric inpatient admission due to her intellectual disability at baseline and suggested we discharged her back to [facility] with ongoing psychiatric follow-up there. Given her ongoing agitation we will go ahead and adjust her Ativan and use liquid Ativan 1 mg 3 times daily as this is more likely to be absorbed and taken by her in liquid form and add naltrexone as an off-label use for extreme agitation and autism. Low-dose of naltrexone was utilized with 25 mg p.o. twice daily. If the patient remains with ongoing agitation and readmission is required, I highly recommend admission to a facility that can provide inpatient psychiatric evaluation and care. The patient was discharged to [facility] with remaining agitation intermittently on 04/10/2025 is no organic process was identified with workup here and previous extensive workup at other facilities. The patient is much more compliant when her family is around. Ultimately they would like to take her back to her [facility] setting if we can get her behavior more regulated. Discharge diagnoses: Agitation Anion gap metabolic acidosis-resolved Tachycardia Dysphagia Severe autistic disorder with intellectual disability History of paroxysmal atrial fibrillation MARZENA Depression Chronic orthostatic hypotension GERD Rhinitis Physical Exam Narrative Overall exam is limited due to patient combativeness and intermittent cooperation with physical exam Const alert, no apparent distress and average body habitus Constitutional Narrative: Intermittently agitated, middle-aged, white female, sitting up in a Diane chair with television production assistant and wound care nurse at the bedside getting her cleaned up, patient is extremely agitated at this time and throwing things across the room intermittently, not toxic appearing General Appearance: comfortable and well developed; Negative for cooperative Exam Limitations: behavioral limitations Nutritional Appearance: thin HEENT normocephalic, head/scalp atraumatic, hearing grossly normal bilaterally and moist oral mucous membranes Eyes Eyes Narrative: No scleral icterus Neck Neck Narrative: Trachea appears to be midline Resp normal respiratory effort, normal air movement, no retractions, no use of accessory muscles and clear to auscultation bilaterally Auscultation: Negative for rales, rhonchi or wheezes Cardio regular rhythm, S1 normal heart sound, S2 normal heart sound, no murmurs, no rub, no gallops and no clicks Cardio Narrative: Mild tachycardia while the patient is agitated GI normal to inspection, nondistended, normoactive bowel sounds, soft to palpation and non-tender Extremity no clubbing, cyanosis or edema Extremity Narrative: 2+ pedal pulses, decreased lean muscle mass Skin Skin Narrative: Skin is pale but no significant lesions noted Neuro Neuro Narrative: Patient is moving all extremities spontaneously with no apparent focal deficit, exam is limited due to intermittent compliance Speech: Negative for speech normal Psych Psych Narrative: Still intermittently agitated and combative Weight / BMI Weight Weight: 55.8 kg Body Mass Index (BMI) 22.6 ABG / Lab / Microbiology Data 04/10/25 06:40 04/10/25 06:40 Laboratory: Laboratory Results - last 24 hr 04/10/25 06:40: WBC 7.3, RBC 4.26, Hgb 12.8, Hct 38.2, MCV 89.7, MCH 30.0, MCHC 33.5, RDW Std Deviation 43.8, RDW Coeff of Russell 13.2, Plt Count 223, MPV 9.7, Sodium 142, Potassium 3.4, Chloride 108, Carbon Dioxide 23.0, Anion Gap 11, BUN 7, Creatinine 0.49 L, Estim Creat Clear Calc 112.26, Est GFR (MDRD) Non-Af 117, BUN/Creatinine Ratio 14.6, Glucose 87, Calcium 8.9 Microbiology: Microbiology 04/06/25 23:00 Urine, Catheterized Urine Culture - Final Escherichia coli Pseudomonas aeruginosa Enterococcus faecalis D/C Instructions Discharge Activity: Return to Normal Activity DC O2, CPAP, BIPAP Needs Home O2 Discharge instructions: No Meaningful Use Info Meaningful Use Meaningful Use Diagnoses (Choose all that apply): None applicable Discharge Plan Admission Admit Date/Time: 04/06/25 00:29 Primary Reason for Your Visit: Agitation Attending Provider: Stephenie Roberts Primary Care Provider: Abby Carrillo Consulting Providers: Lina Antony; Roseline Seaman Discharge Orders/Prescriptions Prescriptions: New naltrexone 50 mg tablet 25 mg PO DAILY Qty: 1 0RF lorazepam 2 mg/mL Concentrate 1 mg PO TID Qty: 30 0RF Continued acetaminophen 325 mg tablet 650 mg PO Q4H PRN (Reason: fever or pain) lorazepam 0.5 mg tablet 0.5 mg PO BID trazodone 50 mg tablet 50 mg PO QHS midodrine 5 mg tablet 10 mg PO BID divalproex 500 mg tablet,delayed release (DR/EC) 500 mg PO BID amantadine HCl 100 mg capsule 100 mg PO BID pantoprazole 40 mg tablet,delayed release (DR/EC) 40 mg PO DAILY aspirin 81 mg tablet,chewable 1 tab PO DAILY montelukast 10 mg tablet 10 mg PO DAILY atropine 1 % drops 2 drp sublingual BID fludrocortisone 0.1 mg tablet 0.2 mg PO BID loperamide [Anti-Diarrheal (loperamide)] 2 mg capsule 2 mg PO Q8H PRN (Reason: loose stool) polyethylene glycol 3350 [ClearLax] 17 gram/dose powder 17 g PO DAILY PRN (Reason: constipation) fluoride (sodium) [DentaGel] 1.1 % gel 1 applic dental QHS cholecalciferol (vitamin D3) [Vitamin D3] 50 mcg (2,000 unit) capsule 50 mcg PO DAILY docusate sodium [Colace] 100 mg capsule 100 mg PO DAILY PRN (Reason: constipation) melatonin 5 mg tablet,chewable 5 mg PO QHS PRN (Reason: sleep) lorazepam [Ativan] 2 mg/mL solution 0.25 mg IM Q24H PRN (Reason: agitation) Referrals / Follow Up: Joaquín Rosario MD [Non-Staff, Family Practice] - Within 1 Week Abby Carrillo MD [Primary Care Provider, Family Practice] Disposition Disposition (needs filled in before D/C Order can be placed): [facility]irement Facility Charges/Coding Visit Charges Inpatient E&M: 70820 SNF Disch >30 Min
--- NOTE | 2025-04-10 15:07 | PHA.DC_ITS ---
Pharmacy [facility] Reconciliation Pharmacy Service has performed discharge medication reconciliation for this patient. The patient's discharge medication list was reviewed for discrepancies and discrepancies were resolved. Medications at Discharge Home Medications amantadine HCl 100 mg capsule 100 mg PO BID 12/25/24 aspirin 81 mg chewable tablet 1 tab PO DAILY 12/25/24 atropine 1 % eye drops 2 drp sublingual BID 12/25/24 cholecalciferol (vitamin D3) 50 mcg (2,000 unit) capsule (Vitamin D3) 50 mcg PO DAILY 12/25/24 divalproex 500 mg tablet,delayed release 500 mg PO BID 12/25/24 fludrocortisone 0.1 mg tablet 0.2 mg PO BID 12/25/24 fluoride (sodium) 1.1 % dental gel (DentaGel) 1 applic dental QHS 12/25/24 loperamide 2 mg capsule (Anti-Diarrheal (loperamide)) 2 mg PO Q8H PRN loose stool 12/25/24 midodrine 5 mg tablet 10 mg PO BID 12/25/24 montelukast 10 mg tablet 10 mg PO DAILY 12/25/24 pantoprazole 40 mg tablet,delayed release 40 mg PO DAILY 12/25/24 polyethylene glycol 3350 17 gram/dose oral powder (ClearLax) 17 g PO DAILY PRN constipation 12/25/24 trazodone 50 mg tablet 50 mg PO QHS 12/25/24 acetaminophen 325 mg tablet 650 mg PO Q4H PRN fever or pain 03/05/25 docusate sodium 100 mg capsule (Colace) 100 mg PO DAILY PRN constipation 03/05/25 lorazepam 0.5 mg tablet 0.5 mg PO BID 03/05/25 melatonin 5 mg chewable tablet 5 mg PO QHS PRN sleep 03/05/25 lorazepam 2 mg/mL injection solution (Ativan) 0.25 mg IM Q24H PRN agitation 04/06/25 lorazepam 2 mg/mL oral concentrate 1 mg (0.5 mL) PO TID #30 mL 04/10/25 naltrexone 50 mg tablet 25 mg (1/2 x 50 mg) PO DAILY #1 TAB 04/10/25
--- NOTE | 2025-04-10 15:13 | PCM.TXEXTCAR ---
Diet Diet Order/Speech Therapy: INPATIENT Hospital Diet / Speech Therapy Order(s) 04/08/25 09:46 Diet: Regular - General Food consistency:: Easy to Chew Liquid Consistency:: Regular/Thin Type of Dietary Supplement:: Ensure+HP w/ breakfast Diet Comments: finger foods; 240mL ensure plus HP w/ breakfast tray Speech Therapy Comments: Hand the patient SMALL bites or SMALL spoonfuls. Meds crushed in pudding Routine Orders/Code Status Suppository Frequency: Daily PRN Routine Lab Work: CBC (As needed) and BMP (As needed) Code Status: DNRCC-A (No ET tube) DC O2, CPAP, BIPAP needs Home O2 Discharge instructions: No Wound(s) lip/mouth: Wound Type: Bite Suggestions for Active Care Change Position every (hours): 2 Therapies Weight Bearing: Full weight bearing Physical Therapy: Eval and Treat Occupational Therapy: Eval and Treat Speech Therapy: Eval and Treat Problem/Diagnosis (1) Generalized anxiety disorder: Status: Acute Code(s): F41.1 - Generalized anxiety disorder (2) Dehydration: Status: Acute Code(s): E86.0 - Dehydration (3) Agitation: Status: Acute Code(s): R45.1 - Restlessness and agitation Allergies/Procedures Done in Hospital Allergies No Known Allergies Allergy (Verified 04/05/25 18:49) Procedures: EKG and - (Chest x-ray) Type of Care/Length of Stay Estimated LOS: Convalescent Care Less Than 30 days Type of Care Needed: Skilled Rehab Potential: Fair Prognosis: Fair Additional Orders/Day of Discharge Day of Discharge: 04/10/25 Dietary and Speech Recommendations Dietitian Recommendations/Changes: Will continue Regular diet with [id number] foods/thin liquids; finger foods. Will adjust ONS to 240mL Ensure Plus HP w/ breakfast tray. Trend weights and oral intake; additional ONS as needed. Discharge Plan Admission Admit Date/Time: 04/06/25 00:29 Primary Reason for Your Visit: Agitation Attending Provider: Stephenie Roberts Primary Care Provider: Abby Carrillo Consulting Providers: Lina Antony; Roseline Seaman Discharge Orders/Prescriptions Prescriptions: New naltrexone 50 mg tablet 25 mg PO DAILY Qty: 1 0RF lorazepam 2 mg/mL Concentrate 1 mg PO TID Qty: 30 0RF Continued acetaminophen 325 mg tablet 650 mg PO Q4H PRN (Reason: fever or pain) lorazepam 0.5 mg tablet 0.5 mg PO BID trazodone 50 mg tablet 50 mg PO QHS midodrine 5 mg tablet 10 mg PO BID divalproex 500 mg tablet,delayed release (DR/EC) 500 mg PO BID amantadine HCl 100 mg capsule 100 mg PO BID pantoprazole 40 mg tablet,delayed release (DR/EC) 40 mg PO DAILY aspirin 81 mg tablet,chewable 1 tab PO DAILY montelukast 10 mg tablet 10 mg PO DAILY atropine 1 % drops 2 drp sublingual BID fludrocortisone 0.1 mg tablet 0.2 mg PO BID loperamide [Anti-Diarrheal (loperamide)] 2 mg capsule 2 mg PO Q8H PRN (Reason: loose stool) polyethylene glycol 3350 [ClearLax] 17 gram/dose powder 17 g PO DAILY PRN (Reason: constipation) fluoride (sodium) [DentaGel] 1.1 % gel 1 applic dental QHS cholecalciferol (vitamin D3) [Vitamin D3] 50 mcg (2,000 unit) capsule 50 mcg PO DAILY docusate sodium [Colace] 100 mg capsule 100 mg PO DAILY PRN (Reason: constipation) melatonin 5 mg tablet,chewable 5 mg PO QHS PRN (Reason: sleep) lorazepam [Ativan] 2 mg/mL solution 0.25 mg IM Q24H PRN (Reason: agitation) Referrals / Follow Up: Joaquín Rosario MD [Non-Staff, [facility]] - Within 1 Week Abby Carrillo MD [Primary Care Provider, [facility]] Disposition Disposition (needs filled in before D/C Order can be placed): Group Home Facility
--- NOTE | 2025-04-10 15:57 | CASEMGMT ---
Social Work Physician updated and pt is ready for discharge today.? DCA notified of discharge. All final arrangements and notifications to be completed by DCA. Disposition:[facility], MARIBEL Garcia
--- NOTE | 2025-04-10 16:34 | CASEMGMT ---
Discharge Planning Discharge orders, signed med list, and transport time sent to . Physicians will transport pt by cot at 7p. Nursing and SW updated. VM left for pts mother (Meera). Per SW, parents were notified by nursing. Jaquelin Clements DC Planning Asst.
[2025-04-10 18:00] VITALS: BP 123/50; PULSE 96; RESP 16; O2SAT 99
[2025-04-10 20:50] VITALS: BP 116/67; PULSE 98; RESP 17; O2SAT 98
--- NOTE | 2025-04-10 21:39 | CM.ED ---
Social Work Joaquim, from the [facility], contacted to ask about patients disposition. Joaquim updated that patient was returning to SNF. No further needs at this time. Rosalia Cook, DAIRY HUSBANDRY TEACHER, SILO TENDER
[2025-04-10] MEDS: MELATONIN 10 MG TABLET PO (22:05)
== END 2025-04-11 00:23 | disposition skilled nursing facility (03) | DRG 884 ==
LOC: ED 20:23 → MS3 04-06 01:17
PROVIDERS: Student in an Organized Health Care Education/Training Program; Admitting Provider Family Medicine; Emergency Provider Emergency Medicine; PCP Hospitalist; Visit Provider Internal Medicine
DX: F84.0 Autistic disorder (principal); E87.20 Acidosis, unspecified; Z66 Do not resuscitate; I48.0 Paroxysmal atrial fibrillation; E86.0 Dehydration; R13.10 Dysphagia, unspecified; F31.9 Bipolar disorder, unspecified; I95.89 Other hypotension; K21.9 Gastro-esophageal reflux disease without esophagitis; J30.9 Allergic rhinitis, unspecified; R45.1 Restlessness and agitation; F41.1 Generalized anxiety disorder; Z79.82 Long term (current) use of aspirin; Z79.899 Other long term (current) drug therapy
CPT/HCPCS: 36415; 71045; 80048; 80053; 81001; 82140; 82550; 85025; 85027; 87077; 87086; 87088; 87184; 87186; 92526; 92610; 93005; 99285; P9612; A4216